=== PATIENT | female | born 1945 | race Caucasian/White ===

== ENCOUNTER → 2017-03-19 | Outpatient (CLI) | payer MEDICARE, MEDICAID ==
[~2017-03-19] MED LIST: AMIT25TA9 PO; AMLO5TAB4 PO; ARIP15TA4 PO; ARIP5TAB12 PO; ARPZ10T PO; Albuterol IH; BENZ0.5T3 PO; Biotin PO; CHOL10003 PO; CLC200NA2 NS; CYCL10TA9 PO; DOCU100T7 PO; DOXY100C2 PO; ERGO400C PO; ESCI20TA2 PO; ESZO3TAB30 PO; FLC1T PO; FOLIC ACID 1 MG PO; FURO20TA4 PO; GABA300C PO; HYDR-3812 PO; HYDR25SU5 RC; INDO50CA PO; IRON 65 MG PO; Indocin PO; LACT10SO33 PO; LEVO75TA57 PO; LEVO75TA6 PO; MELO-195 PO; MEMA5TAB PO; MENT71OI TP; METH2.5T PO; METO50TA2 PO; METR500T PO; MIRT15TA6 PO; MRTZ30T1 PO; MTX2.5T PO; NF-ESOM40C PO; Nitrostat SL; PANT40TA2 PO; POLY17PO23 PO; PRAM0.12 PO; PRD5T PO; Potassium PO; QTP100T PO; SIMV40TA2 PO; SUMA100T2 PO; TRAM50TA2 PO; VITA400C21 PO; VORT5TAB PO; Xanax PO
--- NOTE | 2017-03-19 18:55 | Diagnostic Imaging Report ---
EXAMINATION: Barium small bowel follow through. INDICATION: Diarrhea. TECHNIQUE: [employer] Mender image of the abdomen was performed. Subsequently, the patient was given barium orally and serial images of the abdomen were obtained. FINDINGS: Kn[employer] Mender image of the abdomen demonstrates right convexity scoliosis and surgical clips in the upper right abdomen and in the mid lateral aspect of the left flank. [id number] amount of fecal material seen in the colon. There is a moderate-sized hiatal hernia. There is prompt gastric emptying into the small bowel loops. There is a transient time through the small bowel of 3 hours and 30 minutes. The small bowel caliber and mucosa lining appear unremarkable. The opacified portions of the proximal colon demonstrate contracted appearance of the colon with question of mucosal thickening. Artifacts from luminal contents is possible. IMPRESSION: 1. Moderate-sized hiatal hernia. 2. The right colon opacified portions demonstrate nodular filling defects which could relate to mucosal thickening versus artifacts related to luminal contents. Correlate clinically and consider colonoscopy for further evaluation. Dictated by: Dictated on workstation # [id number]
== END ==
LOC: RAD 09:11
PROVIDERS: ATTEND Internal Medicine Gastroenterology
DX: K52.839 Microscopic colitis, unspecified (principal)
CPT/HCPCS: 74250

== ENCOUNTER → 2017-05-09 | Outpatient (CLI) | payer MEDICARE, MEDICAID ==
--- NOTE | 2017-05-09 13:28 | Diagnostic Imaging Report ---
EXAMINATION: Three views of the sacroiliac joints. INDICATION: Right hip pain. FINDINGS: There is a mild sclerotic changes along the SI joints likely degenerative with no erosive components. No evidence of SI joint fusion. No fracture is identified. There is suggestion of background osteopenia however and lower lumbar spine degenerative changes. IMPRESSION: Mild degenerative changes. Dictated by: Dictated on workstation # [id number]
--- NOTE | 2017-05-09 13:44 | Diagnostic Imaging Report ---
EXAMINATION: AP and frog-leg lateral views of the right hip. INDICATION: Right hip pain. FINDINGS: There is mild joint space narrowing and subchondral sclerosis compatible with mild osteoarthritis. Minimal subchondral cystic changes are also most likely osteoarthritis changes with no erosive changes noted. No fracture, dislocation, or radiopaque foreign body. IMPRESSION: Mild right hip osteoarthritis. Dictated by: Dictated on workstation # [id number]
--- NOTE | 2017-05-09 15:54 | Diagnostic Imaging Report ---
Multiple views of the lumbar spine including AP, oblique and lateral views. INDICATION: Right hip pain. FINDINGS: There is a prominent right convexity scoliosis of the lumbar spine centered around L1/L2 level. Compensatory curve with left convexity around L4/L5 is present. There is significant disc degenerative changes with vacuum phenomenon, disc height loss and endplates sclerosis seen most prominent at L1/L2 and to lesser extent at the T12/L1 and L2/L3 levels. There are disc degenerative changes, however, in the lower lumbar spine of mild to moderate degree as well. Multilevel anterior osteophytes are noted. There are small posterior osteophytes at the L2/L3 level. The vertebral body heights are preserved. Some limitation to the oblique views secondary to the scoliosis is noted with no malalignment of the facet joints and no definite pars defect is seen. Mild degenerative changes in the SI joints seen. IMPRESSION: Lumbar spine scoliosis and advanced disc degenerative changes seen. Dictated by: Dictated on workstation # [id number]
== END ==
LOC: RAD 12:18
PROVIDERS: ATTEND Internal Medicine Rheumatology
DX: M51.36 Other intervertebral disc degeneration, lumbar region (principal); M41.26 Other idiopathic scoliosis, lumbar region; M25.551 Pain in right hip
CPT/HCPCS: 72110; 72202; 73502

== ENCOUNTER 2018-08-29 19:22 | Emergency (ER) | payer MEDICARE, MEDICAID ==
[~2018-08-29] VITALS: Ht 160 cm; Wt 63.8 kg
[~2018-08-29 19:22] MED LIST changes: +ACHD5005 PO; -HYDR-3812 PO; +INDO50CA11 PO; -METH2.5T PO; +METO50TA15 PO; -METO50TA2 PO
--- OUTSIDE RECORDS SUMMARY | 2018-08-29 19:28 | XMS REPORT | Clinical Summary ---
Author Author [facility] Organization [facility] Address Unknown Phone Unavailable Care Team Providers Care Chinese Medicine Practitioner Name Role Phone Reyes Gao MD Unavailable Reyes Gao MD PCP Source Comments Some departments are not documenting in the electronic medical record. If you do not see the information that you expected, contact Release of Information in the Health Information Management department at [phone] for further assistance in locating additional records.[facility] Allergies Active Allergy Reactions Severity Noted Date Comments Sulfa (Sulfonamide VOMITING Low 01/24/2016 Antibiotics) Current Medications Prescription Sig. Disp. Refills Start End Date Status Date PANTOPRAZOLE SODIUM Take by mouth. Active (PROTONIX PO)Indications: Vision loss, bilateral CYCLOBENZAPRINE HCL Take by mouth. Active (FLEXERIL PO)Indications: Vision loss, bilateral potassium chloride (KDUR) Take 10 mEq by mouth Active 10 mEq tabletIndications: daily. Vision loss, bilateral PRAMIPEXOLE DI-HCL Take by mouth. Active (MIRAPEX PO)Indications: Vision loss, bilateral traMADol (ULTRAM) 50 mg Take 50 mg by mouth every Active tabletIndications: Vision 6 hours as needed for loss, bilateral Pain. gabapentin (NEURONTIN) Take 300 mg by mouth Active 300 mg three times daily. capsuleIndications: Vision loss, bilateral levothyroxine (SYNTHROID) Take 75 mcg by mouth Active 75 mcg tabletIndications: daily. Vision loss, bilateral metoprolol XL (TOPROL XL) Take 50 mg by mouth Active 50 mg tabletIndications: daily. Vision loss, bilateral ARIPiprazole (ABILIFY) 15 Take 15 mg by mouth Active mg tabletIndications: daily. Vision loss, bilateral amitriptyline (ELAVIL) 25 Take 25 mg by mouth at Active mg tabletIndications: bedtime daily. Vision loss, bilateral VORTIOXETINE HYDROBROMIDE Take by mouth. Active (BRINTELLIX PO)Indications: Vision loss, bilateral MEMANTINE HCL (NAMENDA Take by mouth. Active PO)Indications: Vision loss, bilateral vitamin E 100 unit Take 100 Units by mouth Active capsuleIndications: daily. Vision loss, bilateral BIOTIN/CALCIUM CARBONATE Take by mouth. Active (BIOTIN 100+10 PO)Indications: Vision loss, bilateral ERGOCALCIFEROL (VITAMIN Take by mouth. Active D2) (VITAMIN D PO)Indications: Vision loss, bilateral calcitonin salmon Apply 1 Lottie to one Active (MIACALCIN) 200 nostril as directed unit/actuation nasal daily. sprayIndications: Vision loss, bilateral sumatriptan (IMITREX) 100 Take 100 mg by mouth as Active mg tabletIndications: Needed for Migraine Vision loss, bilateral symptoms. nitroglycerin (NITROSTAT) Place 0.3 mg under tongue Active 0.3 mg tabletIndications: every 5 minutes as needed Vision loss, bilateral for Chest Pain. mesalamine (LIALDA) 1.2 Take by mouth daily. Active gram tablet Swallow whole; do not break, chew or crush. Administer with a meal. traZODone (DESYREL) 50 mg Take 50 mg by mouth at Active tablet bedtime as needed for Sleep. furosemide (LASIX) 20 mg Take 20 mg by mouth every Active tablet morning. Active Problems Problem Noted Date Mild cognitive impairment 10/31/2016 Overview: Mild complaints in memory but no interference with daily function. She has physical limitations from her RA but not related to cognition. She does not endorse visual or spatial symptoms of posterior cortical atrophy. 2015 PET / CT -- no clear atrophy on CT. Some evidence of mild temporal hypometabolism but no occipital or parietal hypometabolism. Not a strongly suggestive AD pattern or posterior cortical atrophy pattern. 10/2016 MMSE 28, LMI 10, LMII 7, Trails B 180, Fluency 12. Good to slightly below average performance on memory and executive function tasks. Etiology likely chronic or static cognitive impairment or meds / pain. I would become suspicious for neurodegenerative if her symptoms worsen in the next year or two. L ast Assessment & Plan: -- discussed her very mild symptoms and to return if there is noticeable decline or interference in daily function in the future. Vision loss, bilateral 01/24/2016 Last Assessment & Plan: - Patient referred for peripheral vision loss - No inciting event and patient not really aware of it. - Central visual acuity still good. - Recommend optic neuropathy labs and PET scan of brain - Possible posterior cortical atrophy, MRI head from outside facility showed diffuse volume loss - C/D large on exam but rim appears intact without pallor Pseudophakia, both eyes 01/24/2016 Last Assessment & Plan: - Stable - CTM Family History Medical History Relation Name Comments Cataract Father Cataract Mother Glaucoma Mother Relation Name Status Comments Father Mother Social History Tobacco Use Types Packs/Day Years Used Date Former Smoker Sex Assigned at Date Recorded Not on file Last Filed Vital Signs Vital Sign Reading Time Taken Blood Pressure 190/102 10/31/2016 2:04 PM [employer] Pulse 71 10/31/2016 2:04 PM [employer] Temperature - - Respiratory Rate - - Oxygen Saturation - - Inhaled Oxygen - - Concentration Weight 75.3 kg (166 lb) 10/31/2016 2:04 PM [employer] Height 162.6 cm (5' 4") 10/31/2016 2:04 PM [employer] Body Mass Index 28.49 10/31/2016 2:04 PM [employer] Plan of Treatment Health Maintenance Due Date Last Done Comments HEPATITIS C SCREENING 1947 PHYSICAL (COMPREHENSIVE) 1954 EXAM PERTUSSIS VACCINE 1958 TETANUS VACCINE 1964 BREAST CANCER SCREENING 1987 COLORECTAL CANCER 1997 SCREENING SHINGLES RECOMBINANT 1997 VACCINE (1 of 2) OSTEOPOROSIS SCREENING 2012 PNEUMONIA (PCV13/PPSV23) 2012 VACCINES (1 of 2 - PCV13) INFLUENZA VACCINE 06/05/2018 Results Not on filefrom Last 3 Months
--- OUTSIDE RECORDS SUMMARY | 2018-08-29 19:28 | XMS REPORT | Clinical Summary ---
Author Author [facility] Organization [facility] Address Unknown Phone Unavailable Care Team Providers Care Food Service Clerk Name Role Phone PCP Unavailable Allergies Not on File Current Medications Not on file Active Problems Not on file Social History Tobacco Use Types Packs/Day Years Used Date Never Assessed Sex Assigned at Date Recorded Not on file Last Filed Vital Signs Not on file Plan of Treatment Not on file Results Not on filefrom Last 3 Months
--- OUTSIDE RECORDS SUMMARY | 2018-08-29 19:30 | XMS REPORT | Continuity of Care Document ---
Author Author [facility] Address Unknown Phone Unavailable Allergies Active Description Code Type Severity Reaction Onset Reported/Identified Relationship to Patient Clinical Status Yes SULFAMETHOXAZOLE-TRIMETHOPRIM SULFAMETHOXAZOLE-TRI SEVERE Yes SULFAMETHOXAZOLE-TRIMETHOPRIM SEVERE DERMATOLOGICAL - NILS Yes sulfa drug Drug Allergy 09/19/2011 Yes Sulfa (Sulfonamide Antibiotics) [id number] Drug Allergy Unknown N/A 2014 Medications Medication Packaging Start Date Stop Date Route Dosage Sig ONDANSETRON VIAL INJ 4 MG/2CC (ZOFRAN 2CC VIAL) MG 01/12/2017 01/12/2017 PRN ONCE D5 1/2 NS 1000CC IV BAG INJ 0 ml 01/19/2017 CONTINUOUSEVERY 0 Hour LOPERAMIDE CAP 2 MG (IMMODIUM) MG 01/12/2017 01/12/2017 ONCE&1630 LOPERAMIDE CAP 2 MG (IMMODIUM) MG 01/12/2017 01/19/2017 PRN Q6H ONDANSETRON VIAL INJ 4 MG/2CC (ZOFRAN 2CC VIAL) MG 01/12/2017 01/19/2017 PRN Q4H PANTOPAZOLE VIAL INJ 40 MG (PROTONIX IV) MG 01/12/2017 01/22/2017 Q12H&0600,1800 POTASSIUM CHLORIDE TAB 20 MEQ (K-DUR) Dose(s) 01/12/2017 01/19/2017 BID&0800,2000 GABAPENTIN CAP 300 MG (NEURONTIN) Dose(s) 01/12/2017 01/19/2017 BID&0800,2000 Memantine oral tablet 5mg (NAMENDA) Dose(s) 01/12/2017 01/22/2017 BID&0800,2000 PRAMIPEXOLE TAB 0.25 MG (MIRAPEX) Dose(s) 01/12/2017 01/18/2017 QHS&2100 TRAZODONE TAB 50 MG (DESYREL) Dose(s) 01/12/2017 01/19/2017 PRN QHS PANTOPRAZOLE TAB 40 MG (PROTONIX) Dose(s) 01/13/2017 01/19/2017 Daily&0900 METOPROLOL XR TAB 25 MG (TOPROL XL) Dose(s) 01/13/2017 01/19/2017 Daily&0900 ARIPIPRAZOLE TAB 10 MG (ABILIFY) Dose(s) 01/13/2017 01/19/2017 Daily&0900 DULOXETINE CAP 30 MG (CYMBALTA) Dose(s) 01/13/2017 01/19/2017 Daily&0900 MELOXICAM TAB 7.5 MG (MOBIC) MG 09/201701/20/2017 PRN Daily AMLODIPINE TAB 5 MG (NORVASC) Dose(s) 01/13/2017 01/19/2017 Daily&0900 LEVOTHYROXINE TAB 75 MCG (SYNTHROID) Dose(s) 01/13/2017 01/19/2017 Daily&0900 POTASSIUM CHLORIDE TAB 20 MEQ (K-DUR) MEQ 07/23/2017 07/23/2017 ONCE&1352 ACETAMINOPHEN ORAL TABLET 325mg(Tylenol) MG 07/23/2017 07/30/2017 PRN EVERY 6 Hour Normal Saline 1000cc W/KCl 20mEq ml 07/23/2017 07/30/2017 CONTINUOUSEVERY 0 Hour NORMAL SALINE 1000CC IV BAG INJ 0.9 % (NS 1000CC IV BAG) ml 07/23/2017 07/23/2017 ONCE&1557 POTASSIUM CHLORIDE TAB 20 MEQ (K-DUR) MEQ 07/23/2017 07/23/2017 ONCE&1558 ONDANSETRON VIAL INJ 4 MG/2CC (ZOFRAN 2CC VIAL) MG 07/23/2017 07/23/2017 ONCE&1558 ONDANSETRON VIAL INJ 4 MG/2CC (ZOFRAN 2CC VIAL) MG 07/23/2017 07/30/2017 PRN Q4H GABAPENTIN CAP 300 MG (NEURONTIN) Dose(s) 07/23/2017 07/30/2017 BID&08,1999 FAMOTIDINE VIAL INJ 20 MG/2CC (PEPCID VIAL) MG 07/23/2017 07/30/2017 BID&0800,1999 Memantine oral tablet 5mg (NAMENDA) Dose(s) 07/23/2017 08/02/2017 BID&0800,2000 PRAMIPEXOLE TAB 0.25 MG (MIRAPEX) Dose(s) 07/23/2017 07/29/2017 QHS&2100 TRAZODONE TAB 50 MG (DESYREL) Dose(s) 07/23/2017 07/30/2017 PRN QHS ALPRAZOLAM TAB 0.25 MG (XANAX) Dose(s) 07/23/2017 08/02/2017 PRN Q8H ARIPIPRAZOLE TAB 10 MG (ABILIFY) Dose(s) 07/24/2017 07/30/2017 Daily&0900 DULOXETINE CAP 30 MG (CYMBALTA) Dose(s) 07/24/2017 07/30/2017 Daily&0900 MESALAMINE TAB 1200 MG (LIALDA) Dose(s) 07/24/2017 07/30/2017 Daily&0900 AMLODIPINE TAB 5 MG (NORVASC) Dose(s) 07/24/2017 07/30/2017 Daily&0900 METOPROLOL TAB 25 MG (LOPRESSOR) Dose(s) 07/24/2017 07/30/2017 Daily&0900 LEVOTHYROXINE TAB 75 MCG (SYNTHROID) Dose(s) 07/24/2017 07/30/2017 Daily&0900 PANTOPRAZOLE TAB 40 MG (PROTONIX) MG 07/24/2017 07/30/2017 Daily&0000 CALMOSEPTINE OINT TUBE (RISAMINE OINT) ryan 07/24/2017 07/31/2017 PRN QID ONDANSETRON VIAL INJ 4 MG/2CC (ZOFRAN 2CC VIAL) MG 11/17/2017 11/17/2017 PRN ONCE NORMAL SALINE 1000CC IV BAG INJ 0.9 % (NS 1000CC IV BAG) ml 11/17/2017 11/17/2017 ONCE&0244 NORMAL SALINE 250CC IV BAG INJ 0.9 % (NS 250CC IV BAG) ml 01/12/2018 01/12/2018 ONCE&1625 POTASSIUM CL 40MEQ VIAL INJ 40 MEQ/20CC (KCL VIAL) MEQ 01/12/2018 01/12/2018 ONCE&1648 NORMAL SALINE 250CC IV BAG INJ 0.9 % (NS 250CC IV BAG) ml 01/12/2018 01/16/2018 EVERY 24 Hour&1738 NORMAL SALINE 1000CC IV BAG INJ 0.9 % (NS 1000CC IV BAG) ml 01/12/2018 01/27/2018 CONTINUOUSEVERY 0 Hour ONDANSETRON VIAL INJ 4 MG/2CC (ZOFRAN 2CC VIAL) MG 01/12/2018 01/12/2018 PRN ONCE POTASSIUM CHLORIDE TAB 20 MEQ (K-DUR) Dose(s) 01/12/2018 01/19/2018 BID&0800,2000 GABAPENTIN CAP 300 MG (NEURONTIN) Dose(s) 01/12/2018 01/19/2018 BID&0800,2000 MESALAMINE TAB 1200 MG (LIALDA) MG 01/12/2018 01/19/2018 BID&0800,2000 Nystatin top powder (Mycostatin) APPLICATION 01/12/2018 01/26/2018 BID&0800,2000 Memantine oral tablet 5mg (NAMENDA) Dose(s) 01/12/2018 01/22/2018 BID&0800,2000 PANTOPRAZOLE TAB 40 MG (PROTONIX) Dose(s) 01/12/2018 01/12/2018 ONCE&0900 PRAMIPEXOLE TAB 0.25 MG (MIRAPEX) Dose(s) 01/12/2018 01/18/2018 QHS&2100 TRAZODONE TAB 50 MG (DESYREL) Dose(s) 01/12/2018 01/19/2018 PRN QHS ONDANSETRON VIAL INJ 4 MG/2CC (ZOFRAN 2CC VIAL) MG 01/12/2018 01/19/2018 PRN Q4H HYDROCODONE/APAP 5MG/325MG TAB 5 MG/325MG (CARLOS-TAB 5/325) TAB 01/12/2018 01/22/2018 PRN Q6H LEVALBUTEROL LIQ 1.25 MG/3ML (XOPENEX) MG 01/13/2018 01/19/2018 QID&0600,1100,1600,2100 MELOXICAM TAB 7.5 MG (MOBIC) MG 09/201801/20/2018 PRN Daily PANTOPRAZOLE TAB 40 MG (PROTONIX) Dose(s) 01/13/2018 01/22/2018 Daily&0900 ARIPIPRAZOLE TAB 10 MG (ABILIFY) Dose(s) 01/13/2018 01/19/2018 Daily&0900 DULOXETINE CAP 30 MG (CYMBALTA) Dose(s) 01/13/2018 01/19/2018 Daily&0900 HYDROCHLOROTHIAZIDE CAP 12.5 MG (HYDRODIURIL) Dose(s) 01/13/2018 01/19/2018 Daily&0900 AMLODIPINE TAB 5 MG (NORVASC) Dose(s) 01/13/2018 01/19/2018 Daily&0900 METOPROLOL TAB 25 MG (LOPRESSOR) Dose(s) 01/13/2018 01/19/2018 Daily&0900 VITAMIN D-3 TAB 1000 UNITS (VITAMIN D-3) Dose( s) 01/13/2018 01/19/2018 Daily&0900 LEVOTHYROXINE TAB 75 MCG (SYNTHROID) Dose(s) 01/13/2018 01/19/2018 Daily&0900 PANTOPAZOLE VIAL INJ 40 MG (PROTONIX IV) MG 01/13/2018 01/22/2018 Daily&0900 NORMAL SALINE W/KCL 40MEQ IV (SALINE IV BAG [id number]) MLS 01/13/2018 01/20/2018 CONTINUOUSEVERY 0 Hour LACTOBACILLUS BULGARIS TAB (LACTINEX BULGARIS) tab 01/13/2018 01/23/2018 QID&0800,1200,1700,2200 METOPROLOL TAB 25 MG (LOPRESSOR) MG 01/13/2018 01/13/2018 ONCE&1215 NORMAL SALINE W/KCL 40MEQ IV (SALINE IV BAG [id number]) MLS 01/13/2018 01/20/2018 CONTINUOUSEVERY 0 Hour NORMAL SALINE W/KCL 40MEQ IV (SALINE IV BAG [id number]) MLS 01/14/2018 01/21/2018 CONTINUOUSEVERY 0 Hour MESALAMINE TAB 1200 MG (LIALDA) MG 01/14/2018 01/21/2018 BID&0800,2000 SIMVASTATIN TAB 10 MG (ZOCOR) MG 01/20/2018 QPM&2000 TRAZODONE TAB 50 MG (DESYREL) MG 01/20/2018 QHS&2100 MELOXICAM TAB 7.5 MG (MOBIC) MG 01/21/2018 Daily&0900 METOPROLOL-XL TAB 50 MG (TOPROL XL) MG 01/15/2018 01/21/2018 Daily&0900 METOPROLOL XR TAB 25 MG (TOPROL XL) MG 01/15/2018 01/21/2018 Daily&0900 Hydrochlorothiazide oral tablet 25mg MG 01/15/2018 01/21/2018 Daily&0900 ALPHA TOCOPHERYL CAP 400 IU (VIT E) IU 01/15/2018 01/21/2018 Daily&0900 ACETAMINOPHEN ORAL TABLET 325mg(Tylenol) MG 01/15/2018 02/14/2018 PRN EVERY 4 Hour GABAPENTIN CAP 300 MG (NEURONTIN) MG 01/15/2018 01/21/2018 QHS&2100 TRAMADOL TAB 50 MG (ULTRAM) MG 01/15/2018 ONCE&2245 TRAMADOL TAB 50 MG (ULTRAM) MG 01/26/2018 PRN BID Aripiprazole oral tablet 5mg (Abilify) MG 01/16/2018 02/14/2018 QHS&2100 LACTATED RINGERS 500CC IV BAG INJ ml 02/03/2018 02/03/2018 ONCE&0117 LACTATED RINGERS 500CC IV BAG INJ ml 02/03/2018 02/10/2018 CONTINUOUSEVERY 0 Hour ONDANSETRON VIAL INJ 4 MG/2CC (ZOFRAN 2CC VIAL) MG 02/03/2018 02/03/2018 PRN ONCE PANTOPAZOLE VIAL INJ 40 MG (PROTONIX IV) MG 02/03/2018 02/12/2018 BID&0800,2000 ACETAMINOPHEN ORAL TABLET 325mg(Tylenol) MG 02/03/2018 03/04/2018 PRN EVERY 4 Hour ALPRAZOLAM TAB 0.25 MG (XANAX) Dose(s) 02/03/2018 02/13/2018 PRN Q8H GABAPENTIN CAP 300 MG (NEURONTIN) Dose(s) 02/03/2018 02/09/2018 BID&0800,2000 MESALAMINE TAB 1200 MG (LIALDA) Dose(s) 02/03/2018 03/04/2018 BID&0800,2000 METOPROLOL XR TAB 25 MG (TOPROL XL) Dose(s) 02/03/2018 02/09/2018 Daily&0900 POTASSIUM CHLORIDE TAB 20 MEQ (K-DUR) Dose(s) 02/03/2018 02/09/2018 Daily&0900 Aripiprazole oral tablet 5mg (Abilify) Dose(s ) 02/03/2018 02/09/2018 Daily&0900 DULOXETINE CAP 30 MG (CYMBALTA) Dose(s) 02/03/2018 03/04/2018 Daily&0900 FUROSEMIDE TAB 40 MG (LASIX) Dose(s) 02/03/2018 02/09/2018 Daily&0900 LEVOTHYROXINE TAB 75 MCG (SYNTHROID) Dose(s) 02/03/2018 03/04/2018 Daily&0900 POTASSIUM CHLORIDE TAB 20 MEQ (K-DUR) Dose(s) 02/03/2018 02/10/2018 BID&0800,2000 Aripiprazole oral tablet 5mg (Abilify) Dose(s ) 02/03/2018 03/04/2018 QPM&1999 GABAPENTIN CAP 100 MG (NEURONTIN) Dose(s) 02/03/2018 02/09/2018 QHS&2100 GABAPENTIN CAP 300 MG (NEURONTIN) Dose(s) 02/03/2018 02/09/2018 QHS&2099 TRAZODONE TAB 50 MG (DESYREL) Dose(s) 02/03/2018 02/09/2018 QHS&2100 DULOXETINE CAP 30 MG (CYMBALTA) Dose(s) 02/04/2018 02/10/2018 Daily&0900 MESALAMINE TAB 1200 MG (LIALDA) Dose(s) 02/04/2018 02/10/2018 Daily&0900 GABAPENTIN CAP 300 MG (NEURONTIN) Dose(s) 02/04/2018 02/11/2018 BID&0800,2000 METOPROLOL XR TAB 25 MG (TOPROL XL) MG 02/05/2018 02/11/2018 Daily&0900 LACTATED RINGERS 1000CC IV BAG INJ ml 02/11/2018 02/12/2018 CONTINUOUSEVERY 0 Hour TRAMADOL TAB 50 MG (ULTRAM) Dose(s) 02/11/2018 02/21/2018 PRN Q6H ALPRAZOLAM TAB 0.25 MG (XANAX) MG 02/11/2018 02/21/2018 PRN Q8H GABAPENTIN CAP 300 MG (NEURONTIN) Dose(s) 02/11/2018 02/17/2018 QPM&2000 Aripiprazole oral tablet 5mg (Abilify) Dose(s ) 02/11/2018 03/12/2018 QPM&1999 TRAZODONE TAB 50 MG (DESYREL) Dose(s) 02/11/2018 02/17/2018 QHS&2100 METOPROLOL TAB 25 MG (LOPRESSOR) Dose(s) 02/12/2018 02/18/2018 QAM&0800 LEVOTHYROXINE TAB 75 MCG (SYNTHROID) Dose(s) 02/12/2018 02/18/2018 QAM&0800 POTASSIUM CHLORIDE TAB 20 MEQ (K-DUR) Dose(s) 02/12/2018 02/18/2018 Daily&0900 DULOXETINE CAP 30 MG (CYMBALTA) Dose(s) 02/12/2018 02/18/2018 Daily&0900 MESALAMINE TAB 1200 MG (LIALDA) Dose(s) 02/12/2018 02/18/2018 Daily&0900 PANTOPRAZOLE TAB 40 MG (PROTONIX) Dose(s) 02/12/2018 02/18/2018 Daily&0900 ASPIRIN 81MG CHEWABLE TAB 81 MG (BABY ASPIRIN) MG 08/01/2018 08/01/2018 ONCE&1422 NITROSTAT TAB 0.4 MG (NITROQUICK) MG 08/01/2018 08/01/2018 ONCE&1424 Metoprolol IV soln 5mg/5cc vial (Lopressor) MG 08/01/2018 08/01/2018 ONCE&1438 NITROSTAT TAB 0.4 MG (NITROGLYCERINE) MG 08/01/2018 08/01/2018 PRN ONCE NITROGLYCERIN PATCH PAT 0.4 MG MG 08/01/2018 08/01/2018 ONCE&1439 Morphine IV cartridge 4mg/cc MG 08/08/2018 PRN Q4H DEXAMETHASONE VIAL INJ 4 MG/CC (DECADRON VIAL) MG 08/04/2018 08/04/2018 ONCE&0053 KETOROLAC VIAL INJ 30 MG/CC (TORADOL VIAL) MG 08/04/2018 08/04/2018 ONCE&0053 METHYLPREDNISOLONE VIAL INJ 40 MG/CC (DEPO-MEDROL VIAL) MG 08/04/2018 08/04/2018 ONCE&0053 Heparin, FLUSH IV syringe 500 units UNITS 08/16/2018 08/16/2018 ONCE&1012 KETOROLAC VIAL INJ 30 MG/CC (TORADOL VIAL) MG 08/16/2018 08/16/2018 ONCE&1012 Problems Date Dx Coded Attending Type Code Diagnosis Diagnosed By 07/28/2010 295.70 P SCHIZO AFFECTIVE 07/28/2010 [employer] INSPECTOR, SAMARA BANGURAH 295.70 P SCHIZO AFFECTIVE 07/28/2010 [employer] INSPECTOR, SAMARA BANGURAH 295.70 P SCHIZO AFFECTIVE 07/28/2010 295.70 P SCHIZO AFFECTIVE 07/28/2010 295.70 P SCHIZO AFFECTIVE 07/28/2010 ANDER GRANT DO 295.70 P SCHIZO AFFECTIVE 07/28/2010 [employer]SE[employer] INSPECTOR, SAMARA BANGURAH 295.70 P SCHIZO AFFECTIVE 07/28/2010 [employer] INSPECTOR, SAAMRA BANGURAH 295.70 P SCHIZO AFFECTIVE 07/28/2010 [employer] INSPECTOR, SAMARA BANGURAH 295.70 P SCHIZO AFFECTIVE 07/28/2010 [employer] INSPECTOR, SAMARA BANGURAH 295.70 P SCHIZO AFFECTIVE 07/28/2010 [employer] INSPECTOR, SAMARA BANGURAH 295.70 P SCHIZO AFFECTIVE 07/28/2010 [employer] INSPECTOR, SAMARA BANGURAH 295.70 P SCHIZO AFFECTIVE 07/28/2010 [employer] INSPECTOR, SAMARA KEVIN 295.70 P SCHIZO AFFECTIVE 07/28/2010 RONALD CNS, MICHELLE Mcgovern 295.70 P SCHIZO AFFECTIVE 11/06/2011 465.9 UPPER RESPIRATORY INFECTION 11/06/2011 V65.42 COUNSELING - SMOKING CESSATION 11/06/2011 NUPUR ALBERT SAMARA BROWN 465.9 UPPER RESPIRATORY INFECTION 11/06/2011 NUPUR ALBERT SAMARA BROWN V65.42 COUNSELING - SMOKING CESSATION 11/06/2011 NUPUR ALBERT SAMARA KEVIN 465.9 UPPER RESPIRATORY INFECTION 11/06/2011 NUPUR ALBERT SAMARA BROWN V65.42 COUNSELING - SMOKING CESSATION 11/06/2011 465.9 UPPER RESPIRATORY INFECTION 11/06/2011 V65.42 COUNSELING - SMOKING CESSATION 11/06/2011 465.9 UPPER RESPIRATORY INFECTION 11/06/2011 V65.42 COUNSELING - SMOKING CESSATION 11/06/2011 ANDER GRANT DO 465.9 UPPER RESPIRATORY INFECTION 11/06/2011 ANDER GRANT DO V65.42 COUNSELING - SMOKING CESSATION 11/06/2011 NUPUR ALBERT SAMARA KEVIN 465.9 UPPER RESPIRATORY INFECTION 11/06/2011 NUPUR ALBERT SAMARA KEVIN V65.42 COUNSELING - SMOKING CESSATION 11/06/2011 [employer] INSPECTOR, SAMARA BROWN 465.9 UPPER RESPIRATORY INFECTION 11/06/2011 [employer]SE[employer] INSPECTOR, SAMARA BROWN V65.42 COUNSELING - SMOKING CESSATION 11/06/2011 [employer] INSPECTOR, SAMARA BROWN 465.9 UPPER RESPIRATORY INFECTION 11/06/2011 [employer] INSPECTOR, SAMARA BROWN V65.42 COUNSELING - SMOKING CESSATION 11/06/2011 [employer] INSPECTOR, SAMARA BROWN 465.9 UPPER RESPIRATORY INFECTION 11/06/2011 [employer]SE[employer] INSPECTOR, SAMARA BROWN V65.42 COUNSELING - SMOKING CESSATION 11/06/2011 [employer] INSPECTOR, SAMARA BROWN 465.9 UPPER RESPIRATORY INFECTION 11/06/2011 [employer] INSPECTOR, SAMARA BROWN V65.42 COUNSELING - SMOKING CESSATION 11/06/2011 [employer] INSPECTOR, SAMARA BROWN 465.9 UPPER RESPIRATORY INFECTION 11/06/2011 [employer] INSPECTOR, SAMARA BROWN V65.42 COUNSELING - SMOKING CESSATION 11/06/2011 [employer] INSPECTOR, SAMARA BROWN 465.9 UPPER RESPIRATORY INFECTION 11/06/2011 [employer] INSPECTOR, SAMARA BROWN V65.42 COUNSELING - SMOKING CESSATION 11/06/2011 RONALD DYSON, MICHELLE M 465.9 UPPER RESPIRATORY INFECTION 11/06/2011 RONALD DYSON, MICHELLE M V65.42 COUNSELING - SMOKING CESSATION 11/10/2011 466.0 BRONCHITIS, ACUTE 11/10/2011 [employer] INSPECTOR, SAMARA BROWN 466.0 BRONCHITIS, ACUTE 11/10/2011 [employer] INSPECTOR, SAMARA BROWN 466.0 BRONCHITIS, ACUTE 11/10/2011 466.0 BRONCHITIS, ACUTE 11/10/2011 466.0 BRONCHITIS, ACUTE 11/10/2011 ANDER GRANT DO 466.0 BRONCHITIS, ACUTE 11/10/2011 [employer] INSPECTOR, SAMARA BANGURAH 466.0 BRONCHITIS, ACUTE 11/10/2011 [employer]SE[employer] INSPECTOR, SAMARA BANGURAH 466.0 BRONCHITIS, ACUTE 11/10/2011 [employer] INSPECTOR, SAMARA BANGURAH 466.0 BRONCHITIS, ACUTE 11/10/2011 [employer] INSPECTOR, SAMARA KEVIN 466.0 BRONCHITIS, ACUTE 11/10/2011 [employer] INSPECTOR, SAMARA BANGURAH 466.0 BRONCHITIS, ACUTE 11/10/2011 [employer]SE[employer] INSPECTOR, SAMARA KEVIN 466.0 BRONCHITIS, ACUTE 11/10/2011 [employer] INSPECTOR, SAMARA KEVIN 466.0 BRONCHITIS, ACUTE 11/10/2011 MICHELLE COLEY M 466.0 BRONCHITIS, ACUTE 06/03/2013 ANDER GRANT DO 894.0 WOUND OPEN LOWER LIMB 06/03/2013 [employer] INSPECTOR, SAMARA KEVNI 894.0 WOUND OPEN LOWER LIMB 06/03/2013 [employer] INSPECTOR, SAMARA KEVIN 894.0 WOUND OPEN LOWER LIMB 06/03/2013 [employer]SE[employer] INSPECTOR, SAMARA KEVIN 894.0 WOUND OPEN LOWER LIMB 06/03/2013 [employer] INSPECTOR, SAMARA KEVIN 894.0 WOUND OPEN LOWER LIMB 06/03/2013 [employer]SE[employer] INSPECTOR, SAMARA KEVIN 894.0 WOUND OPEN LOWER LIMB 06/03/2013 [employer]ESSELS INSPECTOR, SAMARA KEVIN 894.0 WOUND OPEN LOWER LIMB 06/03/2013 [employer]SE[employer] INSPECTOR, SAMARA KEVIN 894.0 WOUND OPEN LOWER LIMB 06/03/2013 MICHELLE COLEY M 894.0 WOUND OPEN LOWER LIMB 09/15/2013 [employer] INSPECTOR, SAMARA KEVIN 294.20 DEMENTIA UNSPECIFIED WITHOUT BEHAVIORAL DISTURBANCE 09/15/2013 [employer] INSPECTOR, SAMARA KEVIN 294.20 DEMENTIA UNSPECIFIED WITHOUT BEHAVIORAL DISTURBANCE 09/15/2013 [employer] INSPECTOR, SAMARA KEVIN 294.20 DEMENTIA UNSPECIFIED WITHOUT BEHAVIORAL DISTURBANCE 09/15/2013 [employer]SE[employer] INSPECTOR, SAMARA KEVIN 294.20 DEMENTIA UNSPECIFIED WITHOUT BEHAVIORAL DISTURBANCE 09/15/2013 [employer]SE[employer] INSPECTOR, SAMARA KEVIN 294.20 DEMENTIA UNSPECIFIED WITHOUT BEHAVIORAL DISTURBANCE 09/15/2013 [employer]SE[employer] INSPECTOR, SAMARA KEVIN 294.20 DEMENTIA UNSPECIFIED WITHOUT BEHAVIORAL DISTURBANCE 09/15/2013 [employer]SE[employer] INSPECTOR, SAMARA KEVIN 294.20 DEMENTIA UNSPECIFIED WITHOUT BEHAVIORAL DISTURBANCE 09/15/2013 MICHELLE COLEY 294.20 DEMENTIA UNSPECIFIED WITHOUT BEHAVIORAL DISTURBANCE 09/30/2014 MICHELLE COLEY M 300.00 AN ANXIETY UNSPEC 09/30/2014 MICHELLE COLEY M 311 MO DEPRESS NOS 06/16/2015 SANGEETA ESCALANTE, MUKUL [place] Ot 244.9 06/16/2015 SANGEETA ESCALANTE, MUKUL [place] Ot 285.9 06/16/2015 SANGEETA ESCALANTE, MUKUL [place] Ot 294.9 06/16/2015 SANGEETA ESCALANTE, MUKUL E Ot 401.9 06/16/2015 SANGEETA ESCALANTE, MUKUL E Ot 530.81 06/16/2015 SANGEETA ESCALANTE, MUKUL E Ot 714.0 06/16/2015 SANGEETA ESCALANTE, MUKUL E Ot 729.1 06/16/2015 SANGEETA ESCALANTE, MUKUL E Ot 733.00 06/16/2015 SANGEETA ESCALANTE, MUKUL E Ot V54.26 06/16/2015 SANGEETA ESCALANTE, MUKUL E Ot V57.89 06/17/2015 SANGEETA ESCALANTE, MUKUL E Ot 244.9 06/17/2015 SANGEETA ESCALANTE, MUKUL E Ot 285.9 06/17/2015 SANGEETA ESCALANTE, MUKUL E Ot 294.9 06/17/2015 SANGEETA ESCALANTE, MUKUL E Ot 401.9 06/17/2015 SANGEETA ESCALANTE, MUKUL E Ot 530.81 06/17/2015 SANGEETA ESCALANTE, MUKUL E Ot 714.0 06/17/2015 SANGEETA ESCALANTE, MUKUL E Ot 729.1 06/17/2015 SANGEETA ESCALANTE, MUKUL E Ot 733.00 06/17/2015 SANGEETA ESCALANTE, MUKUL E Ot V54.26 06/17/2015 SANGEETA ESCALANTE, MUKUL E Ot V57.89 06/18/2015 SANGEETA ESCALANTE, MUKUL E Ot 244.9 06/18/2015 SANGEETA ESCALANTE, MUKUL E Ot 285.9 06/18/2015 SANGEETA ESCALANTE, MUKUL E Ot 294.9 06/18/2015 SANGEETA ESCALANTE, MUKUL E Ot 401.9 06/18/2015 SANGEETA ESCALANTE, MUKUL E Ot 530.81 06/18/2015 SANGEETA ESCALANTE, MUKUL E Ot 714.0 06/18/2015 SANGEETA ESCALANTE, MUKUL E Ot 729.1 06/18/2015 SANGEETA ESCALANTE, MUKUL E Ot 733.00 06/18/2015 SANGEETA ESCALANTE, MUKUL E Ot V54.26 06/18/2015 SANGEETA ESCALANTE, MUKUL E Ot V57.89 06/23/2015 SANGEETA ESCALANTE, MUKUL E Ot 244.9 06/23/2015 SANGEETA ESCALANTE, MUKUL E Ot 285.9 06/23/2015 SANGEETA ESCALANTE, MUKUL E Ot 294.9 06/23/2015 SANGEETA ESCALANTE, MUKUL E Ot 401.9 06/23/2015 SANGEETA ESCALANTE, MUKUL E Ot 530.81 06/23/2015 SANGEETA ESCALANTE, MUKUL E Ot 714.0 06/23/2015 SANGEETA ESCALANTE, MUKUL E Ot 729.1 06/23/2015 SANGEETA ESCALANTE, MUKUL E Ot 733.00 06/23/2015 SANGEETA ESCALANTE, MUKUL E Ot V54.26 06/23/2015 SANGEETA ESCALANTE, MUKUL E Ot V57.89 06/26/2015 SANGEETA ESCALANTE, MUKUL E Ot 244.9 06/26/2015 SANGEETA ESCALANTE, MUKUL E Ot 273.8 06/26/2015 SANGEETA ESCALANTE, MUKUL E Ot 285.9 06/26/2015 SANGEETA ESCALANTE, MUKUL E Ot 294.9 06/26/2015 SANGEETA ESCALANTE, MUKUL E Ot 401.9 06/26/2015 SANGEETA ESCALANTE, MUKUL E Ot 458.9 06/26/2015 SANGEETA ESCALANTE, MUKUL E Ot 530.81 06/26/2015 SANGEETA ESCALANTE, MUKUL E Ot 707.05 06/26/2015 SANGEETA ESCALANTE, MUKUL E Ot 707.22 06/26/2015 SANGEETA ESCALANTE, MUKUL E Ot 714.0 06/26/2015 SANGEETA ESCALANTE, MUKUL E Ot 726.10 06/26/2015 SANGEETA ESCALANTE, MUKUL E Ot 729.1 06/26/2015 SANGEETA ESCALANTE, MUKUL E Ot 733.00 06/26/2015 SANGEETA ESCALANTE, MUKUL E Ot V15.82 06/26/2015 SANGEETA ESCALANTE, MUKUL E Ot V49.72 06/26/2015 SANGEETA ESCALANTE, MUKUL E Ot V54.26 06/26/2015 SANGEETA ESCALANTE, MUKUL E Ot V57.89 01/12/2017 Ragland, Marie-Miranda A 428.9 01/12/2017 Ragland, Marie-Miranda A I50.9 HEART FAILURE, UNSPECIFIED 01/12/2017 Ragland, Marie-Miranda W 276.51 DEHYDRATION 01/12/2017 Ragland, Marie-Miranda W E86.0 DEHYDRATION 01/12/2017 Ragland, Marie-Miranda W 558.9 OTHER AND UNSPECIFIED NONINFECTIOUS GASTROENTERITIS AND COLITIS 01/12/2017 Ragland, Marie-Miranda W K52.9 NONINFECTIVE GASTROENTERITIS AND COLITIS, UNSPECIFIED 01/13/2017 Ragland, Marie-Miranda W 584.9 ACUTE KIDNEY FAILURE, UNSPECIFIED 01/13/2017 Ragland, Marie-Miranda W N17.9 ACUTE KIDNEY FAILURE, UNSPECIFIED 01/13/2017 Ragland, Marie-Miranda W 401.0 01/13/2017 Ragland, Marie-Miranda W 428.9 01/13/2017 Ragland, Marie-Miranda W 530.81 01/13/2017 Ragland, Marie-Miranda W 790.29 OTHER ABNORMAL GLUCOSE 01/13/2017 Ragland, Marie-Miranda W I10 ESSENTIAL (PRIMARY) HYPERTENSION 01/13/2017 Ragland, Yaniqueu W I50.9 HEART FAILURE, UNSPECIFIED 01/13/2017 Ragland, Marie-Miranda W K21.9 GASTRO-ESOPHAGEAL REFLUX DISEASE WITHOUT ESOPHAGITIS 01/13/2017 Ragland, Yaniqueu W R73.9 HYPERGLYCEMIA, UNSPECIFIED 04/16/2017 LION ESCALANTE, YURI Ot K52.839 MICROSCOPIC COLITIS, UNSPECIFIED 04/20/2017 LION ESCALANTE, YURI Ot K52.839 MICROSCOPIC COLITIS, UNSPECIFIED 06/01/2017 AMPARO ESCALANTE, RENU Bañuelos Ot M25.551 PAIN IN RIGHT HIP 06/01/2017 AMPARO ESCALANTE, RENU Bañuelos Ot M41.26 OTHER IDIOPATHIC SCOLIOSIS, LUMBAR REGIO 06/01/2017 AMPARO ESCALANTE, RENU Bañuelos Ot M51.36 OTHER INTERVERTEBRAL DISC DEGENERATION, 06/14/2017 AMPARO ESCALANTE, RENU Bañuelos Ot M25.551 PAIN IN RIGHT HIP 06/14/2017 AMPARO ESCALANTE, RENU Bañuelos Ot M41.26 OTHER IDIOPATHIC SCOLIOSIS, LUMBAR REGIO 06/14/2017 AMPARO ESCALANTE, RENU Bañuelos Ot M51.36 OTHER INTERVERTEBRAL DISC DEGENERATION, 07/23/2017 Benoit, Lorena W 276.51 DEHYDRATION 07/23/2017 Benoit, Lorena W E86.0 DEHYDRATION 07/23/2017 Benoit, Lorena W 276.51 DEHYDRATION 07/23/2017 Benoit, Lorena W 288.60 LEUKOCYTOSIS, UNSPECIFIED 07/23/2017 Benoit, Lorena W 787.01 NAUSEA WITH VOMITING 07/23/2017 Benoit, Lorena W D72.829 ELEVATED WHITE BLOOD CELL COUNT, UNSPECIFIED 07/23/2017 Benoit, Lorena W E86.0 DEHYDRATION 07/23/2017 Benoit, Lorena W R11.2 NAUSEA WITH VOMITING, UNSPECIFIED 07/24/2017 Benoit, Lorena W 276.51 DEHYDRATION 07/24/2017 Benoit, Lorena W 288.60 LEUKOCYTOSIS, UNSPECIFIED 07/24/2017 Benoit, Lorena W 787.01 NAUSEA WITH VOMITING 07/24/2017 Benoit, Lorena W D72.829 ELEVATED WHITE BLOOD CELL COUNT, UNSPECIFIED 07/24/2017 Benoit, Lorena W E86.0 DEHYDRATION 07/24/2017 Benoit, Lorena W R11.2 NAUSEA WITH VOMITING, UNSPECIFIED 07/25/2017 Benoit, Lorena A 276.51 DEHYDRATION 07/25/2017 Benoit, Lorena W 288.60 LEUKOCYTOSIS, UNSPECIFIED 07/25/2017 Benoit, Lorena W 714.0 RHEUMATOID ARTHRITIS 07/25/2017 Benoit, Lorena W 787.01 NAUSEA WITH VOMITING 07/25/2017 Benoit, Lorena W D72.829 ELEVATED WHITE BLOOD CELL COUNT, UNSPECIFIED 07/25/2017 Benoit, Lorena A E86.0 DEHYDRATION 07/25/2017 Benoit, Lorena W M06.9 RHEUMATOID ARTHRITIS, UNSPECIFIED 07/25/2017 Benoit, Lorena W R11.2 NAUSEA WITH VOMITING, UNSPECIFIED 11/17/2017 Flynntammy Jean A 276.51 DEHYDRATION 11/17/2017 Jean Wallace W 714.0 RHEUMATOID ARTHRITIS 11/17/2017 Jean Wallace W 787.01 NAUSEA WITH VOMITING 11/17/2017 Jean Wallace A E86.0 DEHYDRATION 11/17/2017 Jean Wallace W M06.9 RHEUMATOID ARTHRITIS, UNSPECIFIED 11/17/2017 Jean Wallace W R11.2 NAUSEA WITH VOMITING, UNSPECIFIED 01/14/2018 Benoit, Lorena W 276.8 HYPOPOTASSEMIA 01/14/2018 Benoit, Lorena W E87.6 HYPOKALEMIA 01/14/2018 Benoit, Lorena W 041.81 MYCOPLASMA INFECTION IN CONDITIONS CLASSIFIED ELSEWHERE AND OF UNSPECIFIED SITE 01/14/2018 Benoit, Lorena W 276.8 HYPOPOTASSEMIA 01/14/2018 Benoit, Lorena W 558.9 OTHER AND UNSPECIFIED NONINFECTIOUS GASTROENTERITIS AND COLITIS 01/14/2018 Benoit, Lorena W 787.91 DIARRHEA 01/14/2018 Benoit, Lorena W A49.3 MYCOPLASMA INFECTION, UNSPECIFIED SITE 01/14/2018 Benoit, Lorena W E87.6 HYPOKALEMIA 01/14/2018 Benoit, Lorena W K52.9 NONINFECTIVE GASTROENTERITIS AND COLITIS, UNSPECIFIED 01/14/2018 Benoit, Lorena W R19.7 DIARRHEA, UNSPECIFIED 01/14/2018 Benoit, Lorena W 041.81 MYCOPLASMA INFECTION IN CONDITIONS CLASSIFIED ELSEWHERE AND OF UNSPECIFIED SITE 01/14/2018 Benoit, Lorena W 276.8 HYPOPOTASSEMIA 01/14/2018 Benoit, Lorena W 558.9 OTHER AND UNSPECIFIED NONINFECTIOUS GASTROENTERITIS AND COLITIS 01/14/2018 Benoit, Lorena W 787.91 DIARRHEA 01/14/2018 Benoit, Lorena W A49.3 MYCOPLASMA INFECTION, UNSPECIFIED SITE 01/14/2018 Benoit, Lorena W E87.6 HYPOKALEMIA 01/14/2018 Benoit, Lorena W K52.9 NONINFECTIVE GASTROENTERITIS AND COLITIS, UNSPECIFIED 01/14/2018 Benoit, Lorena W R19.7 DIARRHEA, UNSPECIFIED 01/16/2018 Benoit, Lorena W 041.81 MYCOPLASMA INFECTION IN CONDITIONS CLASSIFIED ELSEWHERE AND OF UNSPECIFIED SITE 01/16/2018 Benoit, Lorena W 276.8 HYPOPOTASSEMIA 01/16/2018 Benoit, Lorena W 558.9 OTHER AND UNSPECIFIED NONINFECTIOUS GASTROENTERITIS AND COLITIS 01/16/2018 Benoit, Lorena W 787.91 DIARRHEA 01/16/2018 Benoit, Lorena W A49.3 MYCOPLASMA INFECTION, UNSPECIFIED SITE 01/16/2018 Benoit, Lorena W E87.6 HYPOKALEMIA 01/16/2018 Benoit, Lorena W K52.9 NONINFECTIVE GASTROENTERITIS AND COLITIS, UNSPECIFIED 01/16/2018 Benoit, Lorena W R19.7 DIARRHEA, UNSPECIFIED 01/17/2018 Benoit, Lorena W 041.81 MYCOPLASMA INFECTION IN CONDITIONS CLASSIFIED ELSEWHERE AND OF UNSPECIFIED SITE 01/17/2018 Benoit, Lorena W 244.9 01/17/2018 Benoit, Lorena W 272.4 01/17/2018 Benoit, Lorena A 276.51 01/17/2018 Benoit, Lorena W 276.8 HYPOPOTASSEMIA 01/17/2018 Benoit, Lorena W 296.20 01/17/2018 Benoit, Lorena W 357.9 01/17/2018 [facility]na W 401.0 01/17/2018 [facility], Lorena W 558.9 OTHER AND UNSPECIFIED NONINFECTIOUS GASTROENTERITIS AND COLITIS 01/17/2018 [facility], Lorena W 714.0 01/17/2018 [facility], Lorena W 719.45 01/17/2018 [facility], Lorena W 787.91 DIARRHEA 01/17/2018 [facility], Lorena W 791.9 01/17/2018 [facility], [place]na W A49.3 MYCOPLASMA INFECTION, UNSPECIFIED SITE 01/17/2018 [facility], Lorena W B96.0 01/17/2018 [facility], [facility]na W E03.9 HYPOTHYROIDISM, UNSPECIFIED 01/17/2018 [facility], Lorena W E78.5 01/17/2018 [facility], Lorena A E86.0 DEHYDRATION 01/17/2018 [facility], Lorena W E87.6 HYPOKALEMIA 01/17/2018 [facility], [place]orena W F32.9 01/17/2018 [facility], [place]na W G62.9 POLYNEUROPATHY, UNSPECIFIED 01/17/2018 [facility], Lorena W I10 01/17/2018 [facility], Lorena W K52.9 NONINFECTIVE GASTROENTERITIS AND COLITIS, UNSPECIFIED 01/17/2018 [facility], Lorena W M06.9 01/17/2018 [facility], [place]na W M25.551 PAIN IN RIGHT HIP 01/17/2018 [facility], Lorena W R19.7 DIARRHEA, UNSPECIFIED 01/17/2018 [facility], Lorena W R82.99 OTHER ABNORMAL FINDINGS IN URINE 02/04/2018 Bruce Stoner 285.9 ANEMIA, UNSPECIFIED 02/04/2018 Bruce Stoner 401.0 MALIGNANT ESSENTIAL HYPERTENSION 02/04/2018 Bruce Stoner 562.12 DIVERTICULOSIS OF COLON WITH HEMORRHAGE 02/04/2018 Bruce Stoner 787.7 ABNORMAL FECES 02/04/2018 Bruce Stoner 787.91 DIARRHEA 02/04/2018 Bruce Stoner D64.9 ANEMIA, UNSPECIFIED 02/04/2018 Bruce Stoner I10 ESSENTIAL (PRIMARY) HYPERTENSION 02/04/2018 Bruce Stoner K57.30 DVRTCLOS OF LG INT W/O PERFORATION OR ABSCESS W/O BLEEDING 02/04/2018 Bruce Stoner W R19.5 OTHER FECAL ABNORMALITIES 02/04/2018 Bruce Stoner A R19.7 DIARRHEA, UNSPECIFIED 02/11/2018 Jac Vanessa A 530.81 02/11/2018 Jac Vanessa W 535.50 UNSPECIFIED GASTRITIS AND GASTRODUODENITIS, WITHOUT MENTION OF HEMORRHAGE 02/11/2018 Jac Vanessa W 552.3 DIAPHRAGMATIC HERNIA WITH OBSTRUCTION 02/11/2018 Jac Vanessa W 562.12 DIVERTICULOSIS OF COLON WITH HEMORRHAGE 02/11/2018 Jac Vanessa W 787.7 02/11/2018 Jac Vanessa W 787.91 DIARRHEA 02/11/2018 Jac Vanessa K21.9 GASTRO-ESOPHAGEAL REFLUX DISEASE WITHOUT ESOPHAGITIS 02/11/2018 Jac Vanessa K29.60 OTHER GASTRITIS WITHOUT BLEEDING 02/11/2018 Jac Vanessa K44.9 DIAPHRAGMATIC HERNIA WITHOUT OBSTRUCTION OR GANGRENE 02/11/2018 Jac Vanessa K57.30 DVRTCLOS OF LG INT W/O PERFORATION OR ABSCESS W/O BLEEDING 02/11/2018 Jac Vanessa W R19.5 OTHER FECAL ABNORMALITIES 02/11/2018 Jac Vanessa R19.7 DIARRHEA, UNSPECIFIED 02/12/2018 GISELA HIGGINBOTHAM A 251.2 02/12/2018 GISELA HIGGINBOTHAM W 276.8 HYPOPOTASSEMIA 02/12/2018 GISELA HIGGINBOTHAM W 285.9 ANEMIA, UNSPECIFIED 02/12/2018 GISELA HIGGINBOTHAM W 401.0 MALIGNANT ESSENTIAL HYPERTENSION 02/12/2018 GISELA HIGGINBOTHAM W 428.9 HEART FAILURE, UNSPECIFIED 02/12/2018 GISELA HIGGINBOTHAM W D64.9 ANEMIA, UNSPECIFIED 02/12/2018 GISELA HIGGINBOTHAM A E16.2 HYPOGLYCEMIA, UNSPECIFIED 02/12/2018 GISELA HIGGINBOTHAM W E87.6 HYPOKALEMIA 02/12/2018 GISELA HIGGINBOTHAM W I10 ESSENTIAL (PRIMARY) HYPERTENSION 02/12/2018 GISELA HIGGINBOTHAM W I50.9 HEART FAILURE, UNSPECIFIED 04/10/2018 Luis Daniel Madden W 357.9 UNSPECIFIED INFLAMMATORY AND TOXIC NEUROPATHIES 04/10/2018 Luis Daniel Madden W 401.0 MALIGNANT ESSENTIAL HYPERTENSION 04/10/2018 Luis Daniel Madden W 428.9 HEART FAILURE, UNSPECIFIED 04/10/2018 Luis Daniel Madden W 707.05 PRESSURE ULCER, BUTTOCK 04/10/2018 Luis Daniel Madden A 707.15 04/10/2018 Luis Daniel Madden W G62.9 POLYNEUROPATHY, UNSPECIFIED 04/10/2018 Luis Daniel Madden W I10 ESSENTIAL (PRIMARY) HYPERTENSION 04/10/2018 Luis Daniel Madden W I50.9 HEART FAILURE, UNSPECIFIED 04/10/2018 Luis Daniel Madden W L89.322 PRESSURE ULCER OF LEFT BUTTOCK, STAGE 2 04/10/2018 Luis Daniel Madden A L97.511 NON-PRS CHRONIC ULCER OTH PRT R FOOT LIMITED TO BRKDWN SKIN 04/10/2018 Luis Daniel Madden W V58.30 ENCOUNTER FOR CHANGE OR REMOVAL OF NONSURGICAL WOUND DRESSING 04/10/2018 Luis Daniel Madden W Z48.00 ENCOUNTER FOR CHANGE OR REMOVAL OF NONSURG WOUND DRESSING 08/01/2018 Jean Wallace 719.41 PAIN IN JOINT INVOLVING SHOULDER REGION 08/01/2018 Jean Wallace 780.8 GENERALIZED HYPERHIDROSIS 08/01/2018 Jean Wallace 785.0 TACHYCARDIA, UNSPECIFIED 08/01/2018 Jean Wallace 786.50 UNSPECIFIED CHEST PAIN 08/01/2018 Jean Wallace 787.02 NAUSEA ALONE 08/01/2018 Jean Wallace M25.512 PAIN IN LEFT SHOULDER 08/01/2018 Jean Wallace R00.0 TACHYCARDIA, UNSPECIFIED 08/01/2018 Jean Wallace R07.9 CHEST PAIN, UNSPECIFIED 08/01/2018 Jean Wallace R11.0 NAUSEA 08/01/2018 Jean Wallace R61 GENERALIZED HYPERHIDROSIS 08/04/2018 Jacqui Lewis W 338.2 CHRONIC PAIN 08/04/2018 Jacqui Lewis 724.5 BACKACHE, UNSPECIFIED 08/04/2018 Jacqui Lewis W 787.02 NAUSEA ALONE 08/04/2018 Jacqui Lewis W G89.29 OTHER CHRONIC PAIN 08/04/2018 Jacqui Lewis A M54.9 DORSALGIA, UNSPECIFIED 08/04/2018 Jacqui Lewis W R11.0 NAUSEA 08/05/2018 W 715.11 OSTEOARTHROSIS, LOCALIZED, PRIMARY, INVOLVING SHOULDER REGION 08/05/2018 W M19.012 PRIMARY OSTEOARTHRITIS, LEFT SHOULDER 08/16/2018 Gianni Gibson 844.9 SPRAIN OF UNSPECIFIED SITE OF KNEE AND LEG 08/16/2018 Gianni Gibson 922.31 CONTUSION OF BACK 08/16/2018 Gianni Gibson S30.0XXA CONTUSION OF LOWER BACK AND PELVIS, INITIAL ENCOUNTER 08/16/2018 Gianni Gibson S83.91XA SPRAIN OF UNSPECIFIED SITE OF RIGHT KNEE, INITIAL ENCOUNTER Procedures Code [place] [address] PSYCH IND W/MED CK 20 11/13/2011 92145 PSYCH IND W/MED CK 20 11/18/2012 06106 PSYCH IND W/MED CK 20 01/24/2013 Results Test Result Range Hemoglobin A1C - 01/12/17 14:47 % A1C 5.50 % 5.40-6.60 AvGlu 117 mg/dL 70-110 Urinalysis - 01/12/17 15:51 Icotest Positive Negative Urine Volume Urine Volume Sufficient (10mL) Urine-Appearance Cloudy Clear Urine-Bacteria 2+ Urine-Bilirubin 2+ Negative Urine-Blood Trace-lysed Negative Urine-Color Yellow Colorless-Lt. Yellow Urine-Epithelial Cells 5-10/HPF Urine-Glucose Negative Negative Urine-Ketones 4+ Negative Urine-Leukocytes Trace Negative Urine-Mucus 1+ Urine-Nitrite Negative Negative Urine-Other Urine Saved if Culture Needed (48hrs from time of collection) Urine-pH 5.5 5-8.5 Urine-Protein 2+ Negative Urine-Specific [place] >=1.030 1.000-1.030 Urine-WBC 2-5/HPF Urobilinogen 0.2 E.U./dL 0.2-1.0 Comprehensive Metabolic Panel - 01/13/17 06:09 Albumin 3.9 g/dL 3.6-5.1 ALP 108 U/L 35-130 ALT 18 U/L 6-45 Anion Gap 20 6-14 AST 19 U/L 2-40 BUN 29 mg/dL 5-25 Calcium 9.2 mg/dL 8.3-10.4 Chloride 108 mmol/L 95-114 CO2 20 mEq/L 22-33 Creat 1.15 mg/dL 0.50-1.50 eGFR 47 mL/min/1.73m2 >59 Globulin 2.3 g/dL 2.3-3.5 Glucose 120 mg/dL 70-110 Osmo 304 280-295 Potassium 3.6 mmol/L 3.5-5.3 Sodium 144 mmol/L 134-148 TBil 1.4 mg/dL 0.2-1.2 TP 6.2 g/dL 6.0-8.3 [facility] - 07/23/17 12:20 Anion Gap 21 6-14 BUN 15 mg/dL 5-25 Calcium 10.0 mg/dL 8.3-10.4 Chloride 99 mmol/L 95-114 CO2 30 mEq/L 22-33 Creat 1.02 mg/dL 0.50-1.50 eGFR 54 mL/min/1.73m2 >59 Glucose 117 mg/dL 70-110 Osmo 305 280-295 Potassium 3.2 mmol/L 3.5-5.3 Sodium 147 mmol/L 134-148 Sed Rate - 07/23/17 12:20 Sed Rate 2 mm/hr 9-15 [facility] - 07/24/17 07:17 Anion Gap 14 6-14 BUN 13 mg/dL 5-25 Calcium 8.7 mg/dL 8.3-10.4 Chloride 111 mmol/L 95-114 CO2 28 mEq/L 22-33 Creat 0.86 mg/dL 0.50-1.50 eGFR 65 mL/min/1.73m2 >59 Glucose 91 mg/dL 70-110 Osmo 307 280-295 Potassium 3.9 mmol/L 3.5-5.3 Sodium 149 mmol/L 134-148 Comprehensive Metabolic Panel - 07/25/17 07:40 Albumin 3.6 g/dL 3.6-5.1 ALP 85 U/L 35-130 ALT 29 U/L 6-45 Anion Gap 13 6-14 AST 19 U/L 2-40 BUN 7 mg/dL 5-25 Calcium 8.9 mg/dL 8.3-10.4 Chloride 110 mmol/L 95-114 CO2 25 mEq/L 22-33 Creat 0.87 mg/dL 0.50-1.50 eGFR 64 mL/min/1.73m2 >59 Globulin 2.2 g/dL 2.3-3.5 Glucose 90 mg/dL 70-110 Osmo 295 280-295 Potassium 3.8 mmol/L 3.5-5.3 Sodium 144 mmol/L 134-148 TBil 1.3 mg/dL 0.2-1.2 TP 5.8 g/dL 6.0-8.3 Urinalysis - 07/25/17 10:40 Icotest Negative Negative Urine Volume Urine Volume Sufficient (10mL) Urine Yeast No Yeast present Urine-Appearance Slightly Cloudy Clear Urine-Bacteria Trace Urine-Bilirubin 1+ Negative Urine-Blood Trace-intact Negative Urine-Color Yellow Colorless-Lt. Yellow Urine-Epithelial Cells 5-10/HPF Urine-Glucose Negative Negative Urine-Ketones Trace Negative Urine-Leukocytes Negative Negative Urine-Mucus 3+ Urine-Nitrite Negative Negative Urine-Other Culture to follow Urine-pH 6.0 5-8.5 Urine-Protein Negative Negative Urine-RBC Rare/HPF Urine-Specific [place] 1.020 1.000-1.030 Urine-WBC 2-5/HPF Urobilinogen 1.0 E.U./dL 0.2-1.0 Comprehensive Metabolic Panel - 11/17/17 02:09 Albumin 3.1 g/dL 3.6-5.1 ALP 99 U/L 35-130 ALT 12 U/L 6-45 Anion Gap 16 6-14 AST 14 U/L 2-40 BUN 8 mg/dL 5-25 Calcium 9.2 mg/dL 8.3-10.4 Chloride 111 mmol/L 95-114 CO2 23 mEq/L 22-33 Creat 0.77 mg/dL 0.50-1.50 eGFR 74 mL/min/1.73m2 >59 Globulin 2.1 g/dL 2.3-3.5 Glucose 110 mg/dL 70-110 Osmo 302 280-295 Potassium 3.0 mmol/L 3.5-5.3 Sodium 147 mmol/L 134-148 TBil 1.0 mg/dL 0.2-1.2 TP 5.2 g/dL 6.0-8.3 Urinalysis - 11/17/17 03:40 Icotest Negative Negative Urine Volume Urine Volume Sufficient (10mL) Urine Yeast No Yeast present Urine-Appearance Slightly Cloudy Clear Urine-Bacteria Trace Urine-Bilirubin 1+ Negative Urine-Blood Negative Negative Urine-Color Yellow Colorless-Lt. Yellow Urine-Epithelial Cells 10-20/HPF Urine-Glucose Negative Negative Urine-Ketones 4+ Negative Urine-Leukocytes Negative Negative Urine-Mucus 1+ Urine-Nitrite Negative Negative Urine-Other Urine Saved if Culture Needed (48hrs from time of collection) Urine-pH 5.5 5-8.5 Urine-Protein Trace Negative Urine-RBC Rare/HPF Urine-Specific [place] >=1.030 1.000-1.030 Urine-WBC Rare/HPF Urobilinogen 0.2 0.2-1.0 BNP - 01/12/18 15:46 BNP 54.60 pg/ml 0.00-100.00 Mycoplasma - 01/12/18 15:46 Mycoplasma Positive Negative Blood Culture - 01/12/18 15:46 PRELIM CULTURE RESULTS Blood Culture Negative, No Growth Day 1 FINAL CULTURE RESULTS Blood Culture Negative, No Growth Day 5 MEDIA PLATED Blood Culture Media Position A12 CULTURE SOURCE RIGHT ARM Fecal Leukocyte - 01/12/18 17:01 Fecal Leukocyte Negative Negative Stool Culture - 01/12/18 17:18 Stool Culture Note Ova + Parasite Exam - 01/12/18 17:18 Ova + Parasite Exam Note White Blood Cells (WBC), Stool - 01/12/18 17:18 White Blood Cells (WBC), Stool Note Stool Culture - 01/12/18 17:18 CAMPYLOBACTER CULTURE FINAL REPORT E COLI SHIGA TOXIN EIA NEGATIVE NEGATIVE RESULT 1 NO SALMONELLA OR SHIGELLA RECOVERED. Salmonella/Shigella Screen FINAL REPORT Result 1 NO CAMPYLOBACTER SPECIES ISOLATED. Urinalysis - 01/12/18 17:30 Icotest Negative Negative Urine Volume Urine Volume Insufficient (<10mL) May Affect Microscopic Exam Urine Yeast No Yeast present Urine-Appearance Slightly Cloudy Clear Urine-Bacteria Trace Urine-Bilirubin 3+ Negative Urine-Blood Negative Negative Urine-Color Yellow Colorless-Lt. Yellow Urine-Epithelial Cells 0-5/HPF Urine-Glucose Negative Negative Urine-Ketones 4+ Negative Urine-Leukocytes Negative Negative Urine-Mucus 3+ Urine-Nitrite Negative Negative Urine-Other Culture to follow Urine-pH 6.0 5-8.5 Urine-Protein 2+ Negative Urine-RBC 0-2/HPF Urine-Specific [place] >=1.030 1.000-1.030 Urine-WBC 2-5/HPF Urobilinogen 1.0 0.2-1.0 Urine Culture - 01/12/18 18:06 PRELIM CULTURE RESULTS No Growth 24 hours FINAL CULTURE RESULTS No Growth 48 hours MEDIA PLATED Setup at 18:11 on 01/12/2018 CULTURE SOURCE cath Blood Culture - 01/12/18 19:29 PRELIM CULTURE RESULTS Blood Culture Negative, No Growth Day 1 FINAL CULTURE RESULTS Blood Culture Negative, No Growth Day 5 MEDIA PLATED Blood Culture Media Position A11 CULTURE SOURCE LEFT ARM Comprehensive Metabolic Panel - 01/13/18 06:43 Albumin 3.3 g/dL 3.6-5.1 ALP 98 U/L 35-130 ALT 8 U/L 6-45 Anion Gap 14 6-14 AST 12 U/L 2-40 BUN 9 mg/dL 5-25 Calcium 8.3 mg/dL 8.3-10.4 Chloride 112 mmol/L 95-114 CO2 23 mEq/L 22-33 Creat 0.78 mg/dL 0.50-1.50 eGFR 73 mL/min/1.73m2 >59 Globulin 1.7 g/dL 2.3-3.5 Glucose 82 mg/dL 70-110 Osmo 297 280-295 Potassium 3.7 mmol/L 3.5-5.3 Sodium 145 mmol/L 134-148 TBil 1.2 mg/dL 0.2-1.2 TP 5.0 g/dL 6.0-8.3 [facility] - 01/14/18 06:55 Anion Gap 13 6-14 BUN 6 mg/dL 5-25 Calcium 8.2 mg/dL 8.3-10.4 Chloride 115 mmol/L 95-114 CO2 19 mEq/L 22-33 Creat 0.76 mg/dL 0.50-1.50 eGFR 75 mL/min/1.73m2 >59 Glucose 97 mg/dL 70-110 Osmo 293 280-295 Potassium 3.6 mmol/L 3.5-5.3 Sodium 143 mmol/L 134-148 [facility] - 01/15/18 07:00 Anion Gap 15 6-14 BUN 3 mg/dL 5-25 Calcium 9.2 mg/dL 8.3-10.4 Chloride 115 mmol/L 95-114 CO2 21 mEq/L 22-33 Creat 0.73 mg/dL 0.50-1.50 eGFR 79 mL/min/1.73m2 >59 Glucose 95 mg/dL 70-110 Osmo 298 280-295 Potassium 4.5 mmol/L 3.5-5.3 Sodium 146 mmol/L 134-148 [facility] - 01/17/18 08:51 Anion Gap 16 6-14 BUN 4 mg/dL 5-25 Calcium 9.2 mg/dL 8.3-10.4 Chloride 105 mmol/L 95-114 CO2 26 mEq/L 22-33 Creat 0.78 mg/dL 0.50-1.50 eGFR 73 mL/min/1.73m2 >59 Glucose 102 mg/dL 70-110 Osmo 292 280-295 Potassium 3.5 mmol/L 3.5-5.3 Sodium 143 mmol/L 134-148 [facility] - 02/03/18 01:20 Anion Gap 13 6-14 BUN 10 mg/dL 5-25 Calcium 8.9 mg/dL 8.3-10.4 Chloride 110 mmol/L 95-114 CO2 23 mEq/L 22-33 Creat 0.91 mg/dL 0.50-1.50 eGFR 61 mL/min/1.73m2 >59 Glucose 92 mg/dL 70-110 Osmo 292 280-295 Potassium 3.9 mmol/L 3.5-5.3 Sodium 142 mmol/L 134-148 IFOBT Occult Blood - 02/03/18 01:59 IFOBT Occult Blood POSITIVE Negative EKG - 02/03/18 02:20 EKG Complete [facility] - 02/03/18 06:35 Anion Gap 15 6-14 BUN 9 mg/dL 5-25 Calcium 8.9 mg/dL 8.3-10.4 Chloride 112 mmol/L 95-114 CO2 21 mEq/L 22-33 Creat 0.83 mg/dL 0.50-1.50 eGFR 68 mL/min/1.73m2 >59 Glucose 78 mg/dL 70-110 Osmo 295 280-295 Potassium 3.9 mmol/L 3.5-5.3 Sodium 144 mmol/L 134-148 - 02/03/18 17:50 Hct 34.7 % 36.0-46.0 Hgb 11.2 g/dL 13.0-15.0 CBC with Auto Diff - 02/04/18 07:00 Baso% 0.00 % 0.00-2.50 Eos 0.0 K/uL 0.0-0.7 Eos% 0.9 % 0.0-7.0 Hct 35.1 % 36.0-46.0 Hgb 11.4 g/dL 13.0-15.0 Lym 1.18 K/uL 0.60-3.40 Lym% 35.6 % 10.0-50.0 MCH 30.6 pg 27.0-31.0 MCHC 32.5 g/dL 32.0-36.0 MCV 94.4 fL 80.0-97.0 Kendall% 10.0 % 0.0-12.0 MPV 10.0 fL 7.4-10.0 Deanna% 53.5 % 37.0-80.0 Plt 175 K/uL 150-400 RBC 3.72 M/uL 3.60-5.00 RDW 14.0 % 11.6-14.8 WBC 3.31 K/uL 5.00-10.00 Deanna 1.77 K/uL 2.00-6.90 Kendall 0.3 K/uL 0.0-0.9 Baso 0.0 K/uL 0.0-0.2 Surgical Pathology - 02/11/18 09:35 Surg Path Sent to [facility] Comprehensive Metabolic Panel - 02/12/18 05:21 Albumin 3.2 g/dL 3.6-5.1 ALP 107 U/L 35-130 ALT 12 U/L 6-45 Anion Gap 14 6-14 AST 9 U/L 2-40 BUN 7 mg/dL 5-25 Calcium 9.0 mg/dL 8.3-10.4 Chloride 107 mmol/L 95-114 CO2 26 mEq/L 22-33 Creat 0.87 mg/dL 0.50-1.50 eGFR 64 mL/min/1.73m2 >59 Globulin 1.7 g/dL 2.3-3.5 Glucose 94 mg/dL 70-110 Osmo 293 280-295 Potassium 3.7 mmol/L 3.5-5.3 Sodium 143 mmol/L 134-148 TBil 0.3 mg/dL 0.2-1.2 TP 4.9 g/dL 6.0-8.3 Cardiac Panel - 02/12/18 05:38 CK 24 U/L 26-174 CK-MB 0.6 ng/ml 0.0-9.2 Myoglobin 32.4 ng/ml 1.6-106.0 Troponin <0.020 ng/mL 0.0-0.4 Urinalysis - 02/12/18 07:29 Icotest N/A Negative Urine Volume Urine Volume Sufficient (10mL) Urine Yeast No Yeast present Urine-Appearance Clear Clear Urine-Bacteria Negative Urine-Bilirubin Negative Negative Urine-Blood Negative Negative Urine-Color Yellow Colorless-Lt. Yellow Urine-Epithelial Cells 0-5/HPF Urine-Glucose Negative Negative Urine-Ketones Negative Negative Urine-Leukocytes Negative Negative Urine-Nitrite Negative Negative Urine-Other Urine Saved if Culture Needed (48hrs from time of collection) Urine-pH 5.5 5-8.5 Urine-Protein Negative Negative Urine-RBC 0-2/HPF Urine-Specific [place] <=1.005 1.000-1.030 Urine-WBC Negative Urobilinogen 0.2 E.U./dL 0.2-1.0 CBC with Auto Diff - 02/22/18 11:00 Baso% 0.20 % 0.00-2.50 Eos 0.1 K/uL 0.0-0.7 Eos% 1.1 % 0.0-7.0 Hct 34.6 % 36.0-46.0 Hgb 11.1 g/dL 13.0-15.0 Lym 1.70 K/uL 0.60-3.40 Lym% 36.3 % 10.0-50.0 MCH 29.9 pg 27.0-31.0 MCHC 32.1 g/dL 32.0-36.0 MCV 93.3 fL 80.0-97.0 Kendall% 15.2 % 0.0-12.0 MPV 11.0 fL 7.4-10.0 Deanna% 47.2 % 37.0-80.0 Plt 252 K/uL 150-400 RBC 3.71 M/uL 3.60-5.00 RDW 13.5 % 11.6-14.8 WBC 4.68 K/uL 5.00-10.00 Deanna 2.21 K/uL 2.00-6.90 Kendall 0.7 K/uL 0.0-0.9 Baso 0.0 K/uL 0.0-0.2 Comprehensive Metabolic Panel - 08/01/18 14:17 Albumin 3.6 g/dL 3.6-5.1 ALP 114 U/L 35-130 ALT 7 U/L 6-45 Anion Gap 13 6-14 AST 10 U/L 2-40 BUN 6 mg/dL 5-25 Calcium 9.8 mg/dL 8.3-10.4 Chloride 103 mmol/L 95-114 CO2 26 mEq/L 22-33 Creat 0.78 mg/dL 0.50-1.50 eGFR 73 mL/min/1.73m2 >59 Globulin 3.0 g/dL 2.3-3.5 Glucose 144 mg/dL 70-110 Osmo 287 280-295 Potassium 2.7 mmol/L 3.5-5.3 Sodium 139 mmol/L 134-148 TBil 1.0 mg/dL 0.2-1.2 TP 6.6 g/dL 6.0-8.3 Encounters ACCT No. Visit Date/Time Discharge Status Pt. Type Provider Facility Loc./Unit Complaint [id number] 09/30/2014 16:41:00 09/30/2014 23:59:59 CLS Outpatient RONALD KIEL MICHELLE Mcgovern [id number] 07/15/2014 13:28:00 07/15/2014 23:59:59 CLS Outpatient ESPITIA APRN, SAMARA KEVIN [id number] 05/06/2014 09:25:00 05/06/2014 23:59:59 CLS Outpatient ESPITIA APRN, SAMARA KEVIN [id number] 04/06/2014 09:02:00 04/06/2014 23:59:59 CLS Outpatient NUPUR ALBERT SAMARA KEVIN [id number] 02/24/2014 12:55:00 02/24/2014 23:59:59 CLS Outpatient NUPUR ALBERT SAMARA KEVIN [id number] 02/04/2014 13:24:00 02/04/2014 23:59:59 CLS Outpatient NUPUR ALBERT SAMARA KEVIN [id number] 11/19/2013 10:21:00 11/19/2013 23:59:59 CLS Outpatient NUPUR ALBERT SAMARA KEVIN [id number] 09/15/2013 09:11:00 09/15/2013 23:59:59 CLS Outpatient NUPUR ALBERT SAMARA BROWN [id number] 06/03/2013 13:58:00 06/03/2013 23:59:59 CLS Outpatient ANDER GRANT DO [id number] 11/18/2012 13:44:00 11/18/2012 23:59:59 CLS Outpatient SAMARA ESPITIA APRN [id number] 10/17/2012 14:16:00 10/17/2012 23:59:59 CLS Outpatient SAMARA ESPITIA APRN [id number] 11/10/2011 14:31:00 11/10/2011 23:59:59 CLS Outpatient [id number] 04/10/2013 11:20:00 Document Registration [id number] 01/24/2013 13:15:00 Document Registration [id number] 08/16/2018 08:57:00 08/16/2018 10:23:00 DIS Outpatient Angelicastephany [facility] ER [id number] 08/04/2018 00:35:00 08/04/2018 01:58:00 DIS Outpatient Jacqui Lewis [facility] ER [id number] 08/01/2018 14:00:00 08/01/2018 15:05:[address] [facility] ER [id number] 07/17/2018 09:16:00 07/17/2018 23:59:00 DIS Outpatient ANGELICANINO [id number] 01/18/2018 00:00:00 04/10/2018 07:48:00 DIS Outpatient Chano Luis Daniel [id number] 02/22/2018 12:04:00 02/22/2018 23:59:00 DIS Outpatient Gabrielkat Luis Daniel [id number] 02/12/2018 05:09:00 02/12/2018 08:24:00 DIS Outpatient GISELA HIGGINBOTHAM [facility] ER [id number] 02/11/2018 06:58:00 02/11/2018 09:30:00 DIS Outpatient Jac Vanessa [id number] 02/03/2018 00:28:00 02/04/2018 14:40:00 DIS Outpatient Bruce Stoner [facility] MED-SURG [id number] 01/14/2018 08:15:00 01/17/2018 14:00:00 DIS Inpatient Lorena Laboy [facility] MED-SURG [id number] 11/17/2017 02:01:00 11/17/2017 06:53:00 DIS Outpatient Jean Wallace [facility] ER [id number] 07/23/2017 11:33:00 07/25/2017 14:15:00 DIS Outpatient Lorena Laboy [facility] MED-SURG [id number] 01/12/2017 14:08:00 01/13/2017 13:20:00 DIS Outpatient Matt Ragland [id number] 07/19/2018 10:31:21 Document Registration [id number] 01/12/2017 14:50:40 Document Registration [id number] 01/19/2018 04:11:00 Document Registration [id number] 05/09/2017 12:18:00 05/09/2017 23:59:59 CLS Outpatient AMPARO ESCALANTE, RENU Bañuelos [facility] RAD 4+ [id number]], [id number] 03/19/2017 09:00:00 03/19/2017 23:59:59 CLS Outpatient YURI SEYMOUR MD [facility] RAD DIARRHEA [id number] 06/10/2015 16:09:00 06/26/2015 11:30:00 DIS Inpatient SANGEETA ESCALANTE, MUKUL Cordova [facility] IRF
--- NOTE | 2018-08-29 19:53 | ED Lower Extremity ---
General Stated Complaint: R LOWER LEG POSS CELLULITIS Source: patient, other Exam Limitations: no limitations History of Present Illness Date Seen by Provider: Aug 29, 2018 Time Seen by Provider: 19:40 Initial Comments The patient presents to ER by private conveyance with her friend and chief complaint that today started noticing some increasing redness warmth and heat circumferentially on her right lower extremity distal to her right knee that was injured about 3 weeks ago from a fall. She is followed by Dr. Parks an orthopedic surgeon from [place] and they are not going to do surgery at this time. She had cellulitis in this leg several times before the knee injury as well as sense. She just got off antibiotics a few weeks ago. She has an allergy to Bactrim which causes diarrhea. She's not having any fevers chills nausea vomiting chest pain shortness of breath or wheezing. She's never had blood clots before. She's not on blood thinners. She had a sister who had some blood clots. She says this is the same presentations when she gets cellulitis. Allergies and Home Medications Allergies Coded Allergies: Sulfa (Sulfonamide Antibiotics) (Verified Allergy, Unknown, 06/10/15) Home Medications Amitriptyline HCl 25 Mg Tablet, 25 MG PO HS, (Reported) Aripiprazole 15 Mg Tablet, 15 MG PO DAILY, (Reported) Cholecalciferol (Vitamin D3) 1,000 Unit Tablet, 1,000 UNIT PO DAILY, (Reported) Cyclobenzaprine HCl 10 Mg Tablet, 10 MG PO BID, (Reported) Gabapentin 300 Mg Capsule, 300 MG PO BID, (Reported) Hydrocodone Bit/Acetaminophen 1 Each Tablet, 1 EACH PO Q8H PRN for PAIN, ( Reported) Levothyroxine Sodium 75 Mcg Tablet, 75 MCG PO DAILY, (Reported) Memantine HCl 5 Mg Tablet, 5 MG PO BID 5 MG PO Q AM and HS. Prescribed by: BLU QUINONES on 06/10/15 1523 Methotrexate Tablet 2.5 Mg Tablet, 15 MG PO Sunday, (Reported) Metoprolol Tartrate 50 Mg Tablet, 50 MG PO DAILY, (Reported) Pantoprazole Sodium 40 Mg Tablet.dr, 40 MG PO DAILY, (Reported) Pramipexole 0.125 Mg Tablet, 0.125 MG PO HS, (Reported) Sumatriptan Succinate 100 Mg Tablet, 0.5 TAB PO PRN PRN for HEADACHE May repeat in 2 hours; Max 200 MG/24 hours. Prescribed by: BLU QUINONES on 06/10/151554 Tramadol HCl 50 Mg Tablet, 50 MG PO BID, (Reported) Vitamin E 400 Unit Capsule, 400 UNIT PO DAILY, (Reported) Vortioxetine Hydrobromide 5 Mg Tablet, 5 MG PO DAILY, (Reported) [Biotin] , 10,000 MCG PO Evening Prescribed by: BLU QUINONES on 06/12/15 153 [Folic Acid 1MG] , 2 MG PO DAILY, (Reported) [Iron 65MG] , 65 MG PO Evening Prescribed by: BLU QUINONES on 06/12/15 153 [Nitrostat] , 0.4 MG SL UD Q5 min X3 PRN. Prescribed by: BLU QUINONES on 06/10/151554 [Potassium] , 20 MEQ PO BID, (Reported) Patient Home Medication List Home Medication List Reviewed: Yes Review of Systems Constitutional: No chills, No diaphoresis, No fever EENTM: No ear discharge, No ear pain Respiratory: No cough, No short of breath Cardiovascular: No chest pain, No edema Gastrointestinal: No abdominal pain, No nausea, No vomiting Genitourinary: No discharge, No dysuria Past Whnhayw-Niyusd-Gjhkeh Hx Patient Social History Alcohol Use: Denies Use Recreational Drug Use: No Smoking Status: Never a Smoker Recent Foreign Travel: No Contact w/Someone Who Travel: No Immunizations Up To Date Date of Pneumonia Vaccine: Nov 05, 2012 Past Medical History Gallbladder Pneumonia Gastroesophageal Reflux Osteoporosis, Arthritis, Fibromyalgia, Rheumatoid Arthritis Hypothyroidsim Glaucoma Physical Exam Vital Signs Vital Signs - First Documented 08/29/18 19:38 Temp 99.2 Pulse 85 Resp 24 B/P (MAP) 154/85 (108) Pulse Ox 95 O2 Delivery Room Air Capillary Refill : Height, Weight, BMI Height: 5'3.00" Weight: 145lbs. 11.2oz. [id number]; BMI Method: General Appearance: WD/WN, no apparent distress HEENT: PERRL/EOMI, normal ENT inspection, pharynx normal Neck: non-tender, normal inspection Cardiovascular: normal peripheral pulses, regular rate, rhythm, no edema Respiratory: chest non-tender, lungs clear, normal breath sounds, no respiratory distress, no accessory muscle use Gastrointestinal: non tender, soft Legs: left leg non-tender, left leg normal inspection, left leg normal range of motion, left leg no evidence of injury; right leg limited range of motion ( Right knee secondary to recent injury), right leg pain (Mild), right leg soft tissue tenderness (Mild), right leg swelling (Mild), right leg other (Calor without evidence of knots and negative for Homans sign.) Progress/Results/Core Measures Results/Orders Lab Results Laboratory Tests Test 08/29/18 20:10 Range/Units White Blood Count 4.3 4.3-11.0 10^3/uL Red Blood Count 3.76 L 4.35-5.85 10^6/uL Hemoglobin 10.7 L 11.5-16.0 G/DL Hematocrit 34 L 35-52 % Mean Corpuscular Volume 90 80-99 FL Mean Corpuscular Hemoglobin 29 25-34 PG Mean Corpuscular Hemoglobin Concent 32 32-36 G/DL Red Cell Distribution Width 15.4 H 10.0-14.5 % Platelet Count 219 130-400 10^3/uL Mean Platelet Volume 9.1 7.4-10.4 FL Neutrophils (%) (Auto) 52 42-75 % Lymphocytes (%) (Auto) 35 12-44 % Monocytes (%) (Auto) 11 0-12 % Eosinophils (%) (Auto) 2 0-10 % Basophils (%) (Auto) 0 0-10 % Neutrophils # (Auto) 2.2 1.8-7.8 X 10^3 Lymphocytes # (Auto) 1.5 1.0-4.0 X 10^3 Monocytes # (Auto) 0.5 0.0-1.0 X 10^3 Eosinophils # (Auto) 0.1 0.0-0.3 10^3/uL Basophils # (Auto) 0.0 0.0-0.1 10^3/uL Erythrocyte Sedimentation Rate 24 0-30 MM/HR Sodium Level 141 135-145 MMOL/L Potassium Level 3.4 L 3.6-5.0 MMOL/L Chloride Level 104 98-107 MMOL/L Carbon Dioxide Level 26 21-32 MMOL/L Anion Gap 11 5-14 MMOL/L Blood Urea Nitrogen 9 7-18 MG/DL Creatinine 0.89 0.60-1.30 MG/DL Estimat Glomerular Filtration Rate > 60 BUN/Creatinine Ratio 10 Glucose Level 95 70-105 MG/DL Lactic Acid Level 0.80 0.50-2.00 MMOL/L Calcium Level 9.1 8.5-10.1 MG/DL Corrected Calcium 9.5 8.5-10.1 MG/DL Total Bilirubin 0.5 0.1-1.0 MG/DL Aspartate Amino Transf (AST/SGOT) 13 5-34 U/L Alanine Aminotransferase (ALT/SGPT) 9 0-55 U/L Alkaline Phosphatase 171 H 40-136 U/L C-Reactive Protein High Sensitivity 0.29 0.00-0.50 MG/DL Total Protein 5.2 L 6.4-8.2 GM/DL Albumin 3.5 3.2-4.5 GM/DL My Orders Orders - KIRSTIN GARZA Cbc With Automated Diff (08/29/18 19:46) Comprehensive Metabolic Panel (08/29/18 19:46) Hs C Reactive Protein (08/29/18 19:46) Erythrocyte Sedimentation Rate (08/29/18 19:46) Ceftriaxone For Iv Use (Rocephin For I (08/29/18 20:00) Blood Culture (08/29/18 19:53) Lactic Acid Analyzer (08/29/18 19:53) Hydrocodone/Apap 5/325 Tablet (Lortab 5 (08/29/18 21:00) Vital Signs/I&O 08/29/18 19:38 Temp 99.2 Pulse 85 Resp 24 B/P (MAP) 154/85 (108) Pulse Ox 95 O2 Delivery Room Air Progress Progress Note #1: Time: 19:51 Progress Note We discussed the recurrent risk of cellulitis versus risk of a DVT. Patient feels That this cellulitis since she's had just recently. She was offered an ultrasound since we don't have ultrasound in house should have to go to [place] to receive this tonight. We'll going to get some labs and see if there is evidence of inflammation and elevated white cell count however she is on IV DMARD's so this may complicate our workup. All of her markers of inflammation the elevated at baseline secondary to her rheumatoid arthritis. We'll obtain labs and then rediscuss with the patient. We'll start with Rocephin on presumption of cellulitis. Vital signs are good however she had a very modest heart rate and great oxygen saturations 96 to percent on room air. Progress Note #2: Time: 21:21 Progress Note We've discussed the options and pursue treating a cellulitis and the patient has deferred doing an ultrasound to rule out a possible clot which seems rather unlikely clinically at this time. Departure Impression Primary Impression: Cellulitis of leg, right Disposition: 01 HOME, SELF-CARE Condition: Stable Departure-Patient Inst. Decision time for Depature: 21:22 Referrals: MAC HANDY MD (PCP/Family) Primary Care Physician Patient Instructions: Cellulitis (Skin Infection), Adult (DC) Add. Discharge Instructions: Expect improvement over the next 3-4 days. Start taking the Keflex 4 times a day for the next 10 days. You should also be taking probiotics one tablet twice a day [id number] while you're on antibiotics to help prevent the common side effects of GI upset and diarrhea. Make an appointment to follow up with your primary care provider in about 1-2 weeks. If you start to have chest pain, shortness of breath or worsening symptoms then you should return to the nearest ER. Scripts Cephalexin (Cephalexin) 500 Mg Tablet 500 MG PO QID for 10 Days, #40 TAB 0 Refills Prov: KIRSTIN GRAZA 08/29/18 Copy Copies To 1: MAC HANDY MD, TITUS J Aug 29, 2018 19:53
[2018-08-29] MEDS ORDERED: cefTRIAXone FOR IV USE 1,000 MG in NS (IVPB) 50 ML IV ONE (20:00)
[2018-08-29 20:26] LABS: BASOPHILS % (AUTO) 0 % (0-10); EOSINOPHILS # (AUTO) 0.1 10^3/uL (0.0-0.3); EOSINOPHILS % (AUTO) 2 % (0-10); HEMATOCRIT 34 % (35-52); HEMOGLOBIN 10.7 G/DL (11.5-16.0); LYMPHOCYTES # (AUTO) 1.5 X 10^3 (1.0-4.0); LYMPHOCYTES % (AUTO) 35 % (12-44); MEAN CORPUSCULAR HEMOGLOBIN 29 PG (25-34); MEAN CORPUSCULAR HGB CONC 32 G/DL (32-36); MEAN CORPUSCULAR VOLUME 90 FL (80-99); MEAN PLATELET VOLUME 9.1 FL (7.4-10.4); MONOCYTES # (AUTO) 0.5 X 10^3 (0.0-1.0); MONOCYTES % (AUTO) 11 % (0-12); NEUTROPHILS # (AUTO) 2.2 X 10^3 (1.8-7.8); NEUTROPHILS % (AUTO) 52 % (42-75); PLATELET COUNT 219 10^3/uL (130-400); RED BLOOD COUNT 3.76 10^6/uL (4.35-5.85); RED CELL DISTRIBUTION WIDTH 15.4 % (10.0-14.5); WHITE BLOOD COUNT 4.3 10^3/uL (4.3-11.0)
[2018-08-29 20:44] LABS: ALANINE AMINOTRANSFERASE 9 U/L (0-55); ALBUMIN 3.5 GM/DL (3.2-4.5); ALKALINE PHOSPHATASE 171 U/L (40-136); BILIRUBIN,TOTAL 0.5 MG/DL (0.1-1.0); BUN/CREATININE RATIO 10; CALCIUM 9.1 MG/DL (8.5-10.1); CARBON DIOXIDE 26 MMOL/L (21-32); CHLORIDE 104 MMOL/L (98-107); CREATININE SERUM 0.89 MG/DL (0.60-1.30); GFR ESTIMATED > 60; GLUCOSE 95 MG/DL (70-105); POTASSIUM 3.4 MMOL/L (3.6-5.0); SODIUM 141 MMOL/L (135-145); TOTAL PROTEIN 5.2 GM/DL (6.4-8.2)
[2018-08-29 20:45] LABS: ERYTHROCYTE SEDIMENTATION RATE 24 MM/HR (0-30)
[2018-08-29] MEDS ORDERED: HYDROcodone/APAP 5 MG/325 MG (LORTAB) TAB PO ONE (21:00)
[2018-08-29] MEDS ORDERED: CEPH500T PO (21:24)
[2018-08-29 22:02] VITALS: BP 153/88
== END 2018-08-29 22:02 | disposition home or self-care (01) ==
LOC: EDUNIT# 19:22 → ER 19:24
DX: L03.115 Cellulitis of right lower limb (principal); M81.0 Age-related osteoporosis without current pathological fracture; K21.9 Gastro-esophageal reflux disease without esophagitis; E03.9 Hypothyroidism, unspecified; Z88.2 Allergy status to sulfonamides; Z87.01 Personal history of pneumonia (recurrent)
CPT/HCPCS: 36415; 80053; 83605; 85025; 85652; 86141; 87040; 96374

== ENCOUNTER 2018-09-28 16:13 | Emergency (ER) | payer MEDICARE, MEDICAID ==
[~2018-09-28] VITALS: Ht 157.5 cm; Wt 63.8 kg
[~2018-09-28 16:13] MED LIST changes: +CEPH500T PO
--- OUTSIDE RECORDS SUMMARY | 2018-09-28 16:18 | XMS REPORT | Clinical Summary ---
Author Author [facility] Organization [facility] Address Unknown Phone Unavailable Care Team Providers Care Admissions Counselor Name Role Phone PCP Unavailable Allergies Not [...]
--- OUTSIDE RECORDS SUMMARY | 2018-09-28 16:18 | XMS REPORT | Clinical Summary ---
Author Author [facility] Organization [facility] Address Unknown Phone Unavailable Care Team Providers Care Microbiology Instructor Name Role Phone Reyes Gao MD Unavailable Reyes Gao MD PCP Source Comments Some departments are not documenting in the electronic medical record. If you do not see the information that you expected, contact Release of Information in the Health Information Management department at [phone] for further assistance in locating additional records.[facility] Allergies Active Allergy Reactions Severity Noted Date [...] Vision loss, bilateral calcitonin salmon Apply 1 [place] to one Active (MIACALCIN) 200 nostril as [...] Taken Blood Pressure 190/102 10/31/2016 2:04 PM SAFETY COORDINATOR Pulse 71 10/31/2016 2:04 PM SAFETY COORDINATOR Temperature - - Respiratory Rate - - Oxygen Saturation - - Inhaled Oxygen - - Concentration Weight 75.3 kg (166 lb) 10/31/2016 2:04 PM SAFETY COORDINATOR Height 162.6 cm (5' 4") 10/31/2016 2:04 PM SAFETY COORDINATOR Body Mass Index 28.49 10/31/2016 2:04 PM SAFETY COORDINATOR Plan of Treatment Health Maintenance Due Date Last Done Comments HEPATITIS C SCREENING 1945 PHYSICAL (COMPREHENSIVE) 1954 EXAM DTAP/TDAP VACCINES (1 - 1965 Tdap) BREAST CANCER SCREENING 1987 COLORECTAL CANCER 1997 SCREENING SHINGLES RECOMBINANT 1997 VACCINE (1 of 2) OSTEOPOROSIS 2012 SCREENING/MONITORING PNEUMONIA (PCV13/PPSV23) 2012 VACCINES (1 of 2 - PCV13) INFLUENZA VACCINE 06/05/2018 Results Not on filefrom Last 3 Months
--- OUTSIDE RECORDS SUMMARY | 2018-09-28 16:20 | XMS REPORT | Continuity of Care Document ---
Author Author [facility] Address Unknown Phone Unavailable Allergies Active Description Code Type Severity Reaction Onset Reported/Identified Relationship to Patient Clinical Status Yes SULFAMETHOXAZOLE-TRIMETHOPRIM SULFAMETHOXAZOLE-TRI SEVERE Yes SULFAMETHOXAZOLE-TRIMETHOPRIM SEVERE DERMATOLOGICAL - NILS Yes sulfa drug Drug Allergy 09/19/2011 Yes Sulfa (Sulfonamide Antibiotics) [id number] Drug Allergy Unknown N/A 2014 Medications Medication [...] SALINE W/KCL 40MEQ IV (SALINE IV BAG W/[id number]) MLS 01/13/2018 01/20/2018 CONTINUOUSEVERY 0 Hour LACTOBACILLUS BULGARIS TAB (LACTINEX BULGARIS) tab 01/13/2018 01/23/2018 QID&0800,1200,1700,2200 METOPROLOL TAB 25 MG (LOPRESSOR) MG 01/13/2018 01/13/2018 ONCE&1215 NORMAL SALINE W/KCL 40MEQ IV (SALINE IV BAG W/[id number]) MLS 01/13/2018 01/20/2018 CONTINUOUSEVERY 0 Hour NORMAL SALINE W/KCL 40MEQ IV (SALINE IV BAG W/[id number]) MLS 01/14/2018 01/21/2018 CONTINUOUSEVERY 0 Hour MESALAMINE [...] 07/28/2010 295.70 P SCHIZO AFFECTIVE 07/28/2010 ESPITIA RICKSHAW DRIVER, SAMARA BANGURAH 295.70 P SCHIZO AFFECTIVE 07/28/2010 ESPITIA RICKSHAW DRIVER, SAMARA BANGURAH 295.70 P SCHIZO AFFECTIVE 07/28/2010 295.70 P SCHIZO AFFECTIVE 07/28/2010 295.70 P SCHIZO AFFECTIVE 07/28/2010 ANDER GRANT DO 295.70 P SCHIZO AFFECTIVE 07/28/2010 ESPITIA RICKSHAW DRIVER, SAMARA BANGURAH 295.70 P SCHIZO AFFECTIVE 07/28/2010 ESPITIA RICKSHAW DRIVER, SAMARA BANGURAH 295.70 P SCHIZO AFFECTIVE 07/28/2010 ESPITIA RICKSHAW DRIVER, SAMARA BANGURAH 295.70 P SCHIZO AFFECTIVE 07/28/2010 ESPITIA RICKSHAW DRIVER, SAMARA BANUGRAH 295.70 P SCHIZO AFFECTIVE 07/28/2010 ESPITIA RICKSHAW DRIVER, SAMARA BANGURAH 295.70 P SCHIZO AFFECTIVE 07/28/2010 ESPITIA RICKSHAW DRIVER, SAMARA BANGURAH 295.70 P SCHIZO AFFECTIVE 07/28/2010 ESPITIA RICKSHAW DRIVER, SAMARA KEVIN 295.70 P SCHIZO AFFECTIVE 07/28/2010 [...] V65.42 COUNSELING - SMOKING CESSATION 11/06/2011 ESPITIA RICKSHAW DRIVER, SAMARA BROWN 465.9 UPPER RESPIRATORY INFECTION 11/06/2011 ESPITIA RICKSHAW DRIVER, SAMARA BROWN V65.42 COUNSELING - SMOKING CESSATION 11/06/2011 ESPITIA RICKSHAW DRIVER, SAMARA BROWN 465.9 UPPER RESPIRATORY INFECTION 11/06/2011 ESPITIA RICKSHAW DRIVER, SAMARA BROWN V65.42 COUNSELING - SMOKING CESSATION 11/06/2011 ESPITIA RICKSHAW DRIVER, SAMARA BROWN 465.9 UPPER RESPIRATORY INFECTION 11/06/2011 ESPITIA RICKSHAW DRIVER, SAMARA BROWN V65.42 COUNSELING - SMOKING CESSATION 11/06/2011 ESPITIA RICKSHAW DRIVER, SAMARA BROWN 465.9 UPPER RESPIRATORY INFECTION 11/06/2011 ESPITIA RICKSHAW DRIVER, SAMARA BROWN V65.42 COUNSELING - SMOKING CESSATION 11/06/2011 ESPITIA RICKSHAW DRIVER, SAMARA BROWN 465.9 UPPER RESPIRATORY INFECTION 11/06/2011 ESPITIA RICKSHAW DRIVER, SAMARA BROWN V65.42 COUNSELING - SMOKING CESSATION 11/06/2011 ESPITIA RICKSHAW DRIVER, SAMARA BROWN 465.9 UPPER RESPIRATORY INFECTION 11/06/2011 ESPITIA RICKSHAW DRIVER, SAMARA BROWN V65.42 COUNSELING - SMOKING CESSATION 11/06/2011 RONALD DYSON, MICHELLE M 465.9 UPPER RESPIRATORY INFECTION 11/06/2011 RONALD DYSON, MICHELLE M V65.42 COUNSELING - SMOKING CESSATION 11/10/2011 466.0 BRONCHITIS, ACUTE 11/10/2011 ESPITIA RICKSHAW DRIVER, SAMARA BROWN 466.0 BRONCHITIS, ACUTE 11/10/2011 ESPITIA RICKSHAW DRIVER, SAMARA BROWN 466.0 BRONCHITIS, ACUTE 11/10/2011 466.0 BRONCHITIS, ACUTE 11/10/2011 466.0 BRONCHITIS, ACUTE 11/10/2011 ANDER GRANT DO 466.0 BRONCHITIS, ACUTE 11/10/2011 ESPITIA RICKSHAW DRIVER, SAMARA BANGURAH 466.0 BRONCHITIS, ACUTE 11/10/2011 ESPITIA RICKSHAW DRIVER, SAMARA BANGURAH 466.0 BRONCHITIS, ACUTE 11/10/2011 ESPITIA RICKSHAW DRIVER, SAMARA BANGURAH 466.0 BRONCHITIS, ACUTE 11/10/2011 ESPITIA RICKSHAW DRIVER, SAMARA KEVIN 466.0 BRONCHITIS, ACUTE 11/10/2011 ESPITIA RICKSHAW DRIVER, SAMARA BANGURAH 466.0 BRONCHITIS, ACUTE 11/10/2011 ESPITIA RICKSHAW DRIVER, SAMARA KEVIN 466.0 BRONCHITIS, ACUTE 11/10/2011 ESPITIA RICKSHAW DRIVER, SAMARA KEVIN 466.0 BRONCHITIS, ACUTE 11/10/2011 MICHELLE COLEY M 466.0 BRONCHITIS, ACUTE 06/03/2013 ANDER GRANT DO 894.0 WOUND OPEN LOWER LIMB 06/03/2013 ESPITIA RICKSHAW DRIVER, SAMARA KEVIN 894.0 WOUND OPEN LOWER LIMB 06/03/2013 ESPITIA RICKSHAW DRIVER, SAMARA KEVIN 894.0 WOUND OPEN LOWER LIMB 06/03/2013 ESPITIA RICKSHAW DRIVER, SAMARA KEVIN 894.0 WOUND OPEN LOWER LIMB 06/03/2013 ESPITIA RICKSHAW DRIVER, SAMARA KEVIN 894.0 WOUND OPEN LOWER LIMB 06/03/2013 ESPITIA RICKSHAW DRIVER, SAMARA KEVIN 894.0 WOUND OPEN LOWER LIMB 06/03/2013 ESPITIA RICKSHAW DRIVER, SAMARA KEVIN 894.0 WOUND OPEN LOWER LIMB 06/03/2013 ESPITIA RICKSHAW DRIVER, SAMARA KEVIN 894.0 WOUND OPEN LOWER LIMB 06/03/2013 MICHELLE COLEY M 894.0 WOUND OPEN LOWER LIMB 09/15/2013 ESPITIA RICKSHAW DRIVER, SAMARA KEVIN 294.20 DEMENTIA UNSPECIFIED WITHOUT BEHAVIORAL DISTURBANCE 09/15/2013 ESPITIA RICKSHAW DRIVER, SAMARA KEVIN 294.20 DEMENTIA UNSPECIFIED WITHOUT BEHAVIORAL DISTURBANCE 09/15/2013 ESPITIA RICKSHAW DRIVER, SAMARA KEVIN 294.20 DEMENTIA UNSPECIFIED WITHOUT BEHAVIORAL DISTURBANCE 09/15/2013 ESPITIA RICKSHAW DRIVER, SAMARA KEVIN 294.20 DEMENTIA UNSPECIFIED WITHOUT BEHAVIORAL DISTURBANCE 09/15/2013 ESPITIA RICKSHAW DRIVER, SAMARA KEVIN 294.20 DEMENTIA UNSPECIFIED WITHOUT BEHAVIORAL DISTURBANCE 09/15/2013 ESPITIA RICKSHAW DRIVER, SAMARA KEVIN 294.20 DEMENTIA UNSPECIFIED WITHOUT BEHAVIORAL DISTURBANCE 09/15/2013 ESPITIA RICKSHAW DRIVER, SAMARA KEVIN 294.20 DEMENTIA UNSPECIFIED WITHOUT BEHAVIORAL [...] ESCALANTE, MUKUL E Ot 733.00 06/18/2015 SANGEETA ESCALNATE, MUKUL E Ot V54.26 06/18/2015 SANGEETA ESCALANTE, MUKUL E Ot V57.89 06/23/2015 ASNGEETA ESCALANTE, MUKUL E Ot 244.9 06/23/2015 SANGEETA [...] 06/26/2015 SANGEETA ESCALANTE, MUKUL E Ot 244.9 HYPOTHYROIDISM NOS 06/26/2015 SANGEETA ESCALANTE, MUKUL E Ot 273.8 DIS PLAS PROTEIN MET NEC 06/26/2015 SANGEETA ESCALANTE, UMKUL E Ot 285.9 ANEMIA NOS 06/26/2015 SANGEETA ESCALANTE, MUKUL E Ot 294.9 UNSPEC 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 06/26/2015 SANGEETA ESCALANTE MUKUL E Ot 401.9 HYPERTENSION NOS 06/26/2015 SANGEETA ESCALANTE, MUKUL E Ot 458.9 HYPOTENSION NOS 06/26/2015 SANGEETA ESCALANTE, MUKUL E Ot 530.81 ESOPHAGEAL REFLUX 06/26/2015 SANGEETA ESCALANTE, MUKUL E Ot 707.05 PRESSURE ULCER, BUTTOCK 06/26/2015 SANGEETA ESCALANTE, MUKUL E Ot 707.22 PRESSURE ULCER, STAGE II 06/26/2015 SANGEETA ESCALANTE, MUKUL E Ot 714.0 RHEUMATOID ARTHRITIS 06/26/2015 SANGEETA ESCALANTE, MUKUL E Ot 726.10 BURSAE TENDONS DIS SHLDER NOS 06/26/2015 SANGEETA ESCALANTE, MUKUL E Ot 729.1 MYALGIA AND MYOSITIS NOS 06/26/2015 SANGEETA ESCALANTE, MUKUL E Ot 733.00 OSTEOPOROSIS NOS 06/26/2015 SANGEETA ESCALANTE, MUKUL E Ot V15.82 HISTORY OF TOBACCO USE 06/26/2015 SANGEETA ESCALANTE, MUKUL E Ot V49.72 OTHER TOE(S) AMPUTATION STATUS 06/26/2015 SANGEETA ESCALANTE, MUKUL E Ot V54.26 [facility] PATHOLOGIC FX LOWER LE 06/26/2015 SANGEETA ESCALANTE, MUKUL E Ot V57.89 REHABILITATION PROC NEC 01/12/2017 Matt Ragland A 428.9 01/12/2017 Matt Ragland I50.9 HEART FAILURE, UNSPECIFIED 01/12/2017 Matt Ragland W 276.51 DEHYDRATION 01/12/2017 Matt Rgaland W E86.0 DEHYDRATION 01/12/2017 Matt Ragland W 558.9 OTHER AND UNSPECIFIED NONINFECTIOUS GASTROENTERITIS [...] W I10 ESSENTIAL (PRIMARY) HYPERTENSION 01/13/2017 Ragland, Marie-Miranda W I50.9 HEART FAILURE, UNSPECIFIED 01/13/2017 Ragland, Marie-Miranda W K21.9 GASTRO-ESOPHAGEAL REFLUX DISEASE WITHOUT ESOPHAGITIS 01/13/2017 Ragland, Marie-Miranda W R73.9 HYPERGLYCEMIA, UNSPECIFIED 04/16/2017 LION ESCALANTE, YURI Ot K52.839 MICROSCOPIC COLITIS, UNSPECIFIED 04/20/2017 YURI SEYMOUR MD Ot K52.839 MICROSCOPIC COLITIS, UNSPECIFIED 06/01/2017 AMPARO ESCALANTE, RENU Bañeulos Ot M25.551 PAIN IN RIGHT HIP 06/01/2017 [...] ELEVATED WHITE BLOOD CELL COUNT, UNSPECIFIED 07/24/2017 Beonit, Lorena W E86.0 DEHYDRATION 07/24/2017 Benoit, Lorena [...] W R11.2 NAUSEA WITH VOMITING, UNSPECIFIED 11/17/2017 Jean Wallace A 276.51 DEHYDRATION 11/17/2017 Jean Wallace 714.0 RHEUMATOID ARTHRITIS 11/17/2017 Jean Wallace W 787.01 NAUSEA WITH VOMITING 11/17/2017 Jean Wallace A E86.0 DEHYDRATION 11/17/2017 Jean Wallace M06.9 RHEUMATOID ARTHRITIS, UNSPECIFIED 11/17/2017 Jean Wallace R11.2 NAUSEA WITH VOMITING, UNSPECIFIED 01/14/2018 Benoit, [...] 01/14/2018 Benoit, Lorena W E87.6 HYPOKALEMIA 01/14/2018 Bneoit, Lorena W K52.9 NONINFECTIVE GASTROENTERITIS AND COLITIS, [...] SITE 01/17/2018 Benoit, Lorena W 244.9 01/17/2018 [facility], Lorena W 272.4 01/17/2018 [facility], Lorena A 276.51 01/17/2018 [facility], Lorena W 276.8 HYPOPOTASSEMIA 01/17/2018 [facility], Lorena W 296.20 01/17/2018 [facility], Lorena W 357.9 01/17/2018 [facility], Lorena W 401.0 01/17/2018 [facility], Lorena W 558.9 OTHER AND UNSPECIFIED NONINFECTIOUS GASTROENTERITIS AND COLITIS 01/17/2018 [facility], Lorena W 714.0 01/17/2018 [facility], Lorena W 719.45 01/17/2018 [facility], Lorena W 787.91 DIARRHEA 01/17/2018 [facility], Lorena W 791.9 01/17/2018 [facility], Lorena W A49.3 MYCOPLASMA INFECTION, UNSPECIFIED SITE 01/17/2018 [facility], Lorena W B96.0 01/17/2018 [facility], Lorena W E03.9 HYPOTHYROIDISM, UNSPECIFIED 01/17/2018 [facility], Lorena W E78.5 01/17/2018 [facility], Lorena A E86.0 DEHYDRATION 01/17/2018 [facility], Lorena W E87.6 HYPOKALEMIA 01/17/2018 [facility], Lorena W F32.9 01/17/2018 [facility], Lorena W G62.9 POLYNEUROPATHY, UNSPECIFIED 01/17/2018 [facility], Lorena W I10 01/17/2018 [facility], Lorena W K52.9 NONINFECTIVE GASTROENTERITIS AND COLITIS, UNSPECIFIED 01/17/2018 [facility], Lorena W M06.9 01/17/2018 [facility], Lorena W M25.551 PAIN IN RIGHT HIP 01/17/2018 [facility], Lorena W R19.7 DIARRHEA, UNSPECIFIED 01/17/2018 [facility], Lorena W R82.99 OTHER ABNORMAL FINDINGS IN URINE 02/04/2018 Bruce Stoner W 285.9 ANEMIA, UNSPECIFIED 02/04/2018 Bruce Stoner W 401.0 MALIGNANT ESSENTIAL HYPERTENSION 02/04/2018 Bruce Stoner 562.12 DIVERTICULOSIS OF COLON WITH HEMORRHAGE 02/04/2018 Bruce Stoner 787.7 ABNORMAL FECES 02/04/2018 Bruce Stoner A 787.91 DIARRHEA 02/04/2018 Bruce Stoner D64.9 ANEMIA, UNSPECIFIED 02/04/2018 Bruce Stoner I10 ESSENTIAL (PRIMARY) HYPERTENSION 02/04/2018 Bruce Stoner K57.30 DVRTCLOS OF LG INT W/O PERFORATION OR ABSCESS W/O BLEEDING 02/04/2018 Bruce Stoner R19.5 OTHER FECAL ABNORMALITIES 02/04/2018 Bruce Stoner R19.7 DIARRHEA, UNSPECIFIED 02/11/2018 Jac Vanessa 530.81 02/11/2018 Jac Vanessa 535.50 UNSPECIFIED GASTRITIS AND GASTRODUODENITIS, WITHOUT MENTION OF HEMORRHAGE 02/11/2018 Jac Vanessa 552.3 DIAPHRAGMATIC HERNIA WITH OBSTRUCTION 02/11/2018 Jac Vanessa 562.12 DIVERTICULOSIS OF COLON WITH HEMORRHAGE 02/11/2018 Jac Vanessa 787.7 02/11/2018 Jac Vanessa 787.91 DIARRHEA 02/11/2018 Jac Vanessa K21.9 GASTRO-ESOPHAGEAL REFLUX DISEASE WITHOUT ESOPHAGITIS 02/11/2018 Jac Vanessa K29.60 OTHER GASTRITIS WITHOUT BLEEDING 02/11/2018 Jac Vanessa K44.9 DIAPHRAGMATIC HERNIA WITHOUT OBSTRUCTION OR GANGRENE 02/11/2018 Jac Vanessa K57.30 DVRTCLOS OF LG INT W/O PERFORATION OR ABSCESS W/O BLEEDING 02/11/2018 Jac Vanessa R19.5 OTHER FECAL ABNORMALITIES 02/11/2018 Jac Vanessa R19.7 DIARRHEA, UNSPECIFIED 02/12/2018 GISELA HIGGINBOTHAM A 251.2 02/12/2018 GISELA HIGGINBOTHAM W 276.8 HYPOPOTASSEMIA 02/12/2018 GISELA HIGGINBOTHAM W 285.9 ANEMIA, UNSPECIFIED 02/12/2018 GISELA HIGGINBOTHAM W 401.0 MALIGNANT ESSENTIAL HYPERTENSION 02/12/2018 GISELA HIGGINBOTHAM W 428.9 HEART FAILURE, UNSPECIFIED 02/12/2018 BATTAGLER, GISELA W D64.9 ANEMIA, UNSPECIFIED 02/12/2018 GISELA HIGGINBOTHAM A E16.2 HYPOGLYCEMIA, UNSPECIFIED 02/12/2018 GISELA HIGGINBOTHAM W E87.6 HYPOKALEMIA 02/12/2018 GISELA HIGGINBOTHAM W I10 ESSENTIAL (PRIMARY) HYPERTENSION 02/12/2018 GISELA HIGGINBOTHAM W I50.9 HEART FAILURE, UNSPECIFIED 04/10/2018 Luis Daniel Madden W 357.9 UNSPECIFIED INFLAMMATORY AND TOXIC NEUROPATHIES 04/10/2018 Luis Daniel Madden W 401.0 MALIGNANT ESSENTIAL HYPERTENSION 04/10/2018 Luis Daniel Madden W 428.9 HEART FAILURE, UNSPECIFIED 04/10/2018 Judy Maddenj W 707.05 PRESSURE ULCER, BUTTOCK 04/10/2018 Luis Daniel Madden A 707.15 04/10/2018 Luis Daniel Madden W G62.9 POLYNEUROPATHY, UNSPECIFIED 04/10/2018 Luis Daniel Madden W I10 ESSENTIAL (PRIMARY) HYPERTENSION 04/10/2018 Luis Daniel Madden W I50.9 HEART FAILURE, UNSPECIFIED 04/10/2018 Luis Daniel Madden W L89.322 PRESSURE ULCER OF LEFT BUTTOCK, STAGE 2 04/10/2018 Judy Maddenolamide Munoz L97.511 NON-PRS CHRONIC ULCER OTH PRT R FOOT LIMITED TO BRKDWN SKIN 04/10/2018 Luis Daniel Madden Dez V58.30 ENCOUNTER FOR CHANGE OR REMOVAL OF NONSURGICAL WOUND DRESSING 04/10/2018 Gabrielkat Luis Daniel W Z48.00 ENCOUNTER FOR CHANGE OR REMOVAL OF NONSURG WOUND DRESSING 08/01/2018 Jean Wallace 719.41 PAIN IN JOINT INVOLVING SHOULDER REGION 08/01/2018 Jean Wallace 780.8 GENERALIZED HYPERHIDROSIS 08/01/2018 Jean Wallace 785.0 TACHYCARDIA, UNSPECIFIED 08/01/2018 Jean Wallace A 786.50 UNSPECIFIED CHEST PAIN 08/01/2018 Jean Wallace 787.02 NAUSEA ALONE 08/01/2018 Jean Wallace M25.512 PAIN IN LEFT SHOULDER 08/01/2018 Jean Wallace R00.0 TACHYCARDIA, UNSPECIFIED 08/01/2018 Jean Wallace A R07.9 CHEST PAIN, UNSPECIFIED 08/01/2018 Jean Wallace W R11.0 NAUSEA 08/01/2018 Jean Wallace W R61 GENERALIZED HYPERHIDROSIS 08/04/2018 Jacqui Lewis W 338.2 CHRONIC PAIN 08/04/2018 Jacqui Lewis A 724.5 BACKACHE, UNSPECIFIED 08/04/2018 Jacqui Lewis W 787.02 NAUSEA ALONE 08/04/2018 Jacqui Lewis W G89.29 OTHER CHRONIC PAIN 08/04/2018 Jacqui Lewis A M54.9 DORSALGIA, UNSPECIFIED 08/04/2018 Jacqui Lewis W R11.0 NAUSEA 08/05/2018 W 715.11 OSTEOARTHROSIS, LOCALIZED, PRIMARY, INVOLVING SHOULDER REGION 08/05/2018 W M19.012 PRIMARY OSTEOARTHRITIS, LEFT SHOULDER 08/16/2018 Gianni Gibson A 844.9 SPRAIN OF UNSPECIFIED SITE OF KNEE AND LEG 08/16/2018 Gianni Gibson W 922.31 CONTUSION OF BACK 08/16/2018 Gianni Gibson S30.0XXA CONTUSION OF LOWER BACK AND PELVIS, INITIAL ENCOUNTER 08/16/2018 Gianni Gibson A S83.91XA SPRAIN OF UNSPECIFIED SITE OF RIGHT KNEE, INITIAL ENCOUNTER 08/29/2018 LION ESCALANTE, ORALIAALEXIS Ot K52.839 MICROSCOPIC COLITIS, UNSPECIFIED 08/29/2018 AMPARO ESCALANTE, RENU Bañuelos Ot M25.551 PAIN IN RIGHT HIP 08/29/2018 AMPARO ESCALANTE, RENU B Ot M41.26 OTHER IDIOPATHIC SCOLIOSIS, LUMBAR REGIO 08/29/2018 AMPARO ESCALANTE, RENU B Ot M51.36 OTHER INTERVERTEBRAL DISC DEGENERATION, 08/29/2018 GREG ESCALANTE, KIRSTIN Villeda Ot E03.9 HYPOTHYROIDISM, UNSPECIFIED 08/29/2018 KIRSTIN GARZA MD Ot K21.9 GASTRO-ESOPHAGEAL REFLUX DISEASE WITHOUT 08/29/2018 GREG ESCALANTE, KIRSTIN Villeda Ot L03.115 CELLULITIS OF RIGHT LOWER LIMB 08/29/2018 KIRSTIN GARZA MD Ot M81.0 AGE-RELATED OSTEOPOROSIS W/O CURRENT PAT 08/29/2018 KIRSTIN GARZA MD Ot Z87.01 PERSONAL HISTORY OF PNEUMONIA (RECURRENT 08/29/2018 GREG ESCALANTE, KIRSTIN Villeda Ot Z88.2 ALLERGY STATUS TO SULFONAMIDES STATUS Procedures Code Description [place] [address] PSYCH IND W/MED CK 20 11/13/2011 13692 PSYCH IND W/MED CK 20 11/18/2012 51327 PSYCH IND W/MED CK 20 01/24/2013 Results [...] Urine-pH 5.5 5-8.5 Urine-Protein 2+ Negative Urine-Specific [place] >=1.030 1.000-1.030 Urine-WBC 2-5/HPF Urobilinogen 0.2 E.U./dL [...] 1.4 mg/dL 0.2-1.2 TP 6.2 g/dL 6.0-8.3 BMP - 07/23/17 12:20 Anion Gap 21 6-14 BUN 15 mg/dL 5-25 Calcium 10.0 mg/dL 8.3-10.4 Chloride 99 mmol/L 95-114 CO2 30 mEq/L 22-33 Creat 1.02 mg/dL 0.50-1.50 eGFR 54 mL/min/1.73m2 >59 Glucose 117 mg/dL 70-110 Osmo 305 280-295 Potassium 3.2 mmol/L 3.5-5.3 Sodium 147 mmol/L 134-148 Sed Rate - 07/23/17 12:20 Sed Rate 2 mm/hr 9-15 BMP - 07/24/17 07:17 Anion Gap 14 6-14 [...] 5-8.5 Urine-Protein Negative Negative Urine-RBC Rare/HPF Urine-Specific [place] 1.020 1.000-1.030 Urine-WBC 2-5/HPF Urobilinogen 1.0 E.U./dL [...] 5-8.5 Urine-Protein Trace Negative Urine-RBC Rare/HPF Urine-Specific [place] >=1.030 1.000-1.030 Urine-WBC Rare/HPF Urobilinogen 0.2 0.2-1.0 [...] 5-8.5 Urine-Protein 2+ Negative Urine-RBC 0-2/HPF Urine-Specific [place] >=1.030 1.000-1.030 Urine-WBC 2-5/HPF Urobilinogen 1.0 0.2-1.0 [...] 1.2 mg/dL 0.2-1.2 TP 5.0 g/dL 6.0-8.3 [facility] 01/14/18 06:55 Anion Gap 13 6-14 BUN 6 mg/dL 5-25 Calcium 8.2 mg/dL 8.3-10.4 Chloride 115 mmol/L 95-114 CO2 19 mEq/L 22-33 Creat 0.76 mg/dL 0.50-1.50 eGFR 75 mL/min/1.73m2 >59 Glucose 97 mg/dL 70-110 Osmo 293 280-295 Potassium 3.6 mmol/L 3.5-5.3 Sodium 143 mmol/L 134-148 [facility] 01/15/18 07:00 Anion Gap 15 6-14 BUN 3 mg/dL 5-25 Calcium 9.2 mg/dL 8.3-10.4 Chloride 115 mmol/L 95-114 CO2 21 mEq/L 22-33 Creat 0.73 mg/dL 0.50-1.50 eGFR 79 mL/min/1.73m2 >59 Glucose 95 mg/dL 70-110 Osmo 298 280-295 Potassium 4.5 mmol/L 3.5-5.3 Sodium 146 mmol/L 134-148 [facility] 01/17/18 08:51 Anion Gap 16 6-14 BUN 4 mg/dL 5-25 Calcium 9.2 mg/dL 8.3-10.4 Chloride 105 mmol/L 95-114 CO2 26 mEq/L 22-33 Creat 0.78 mg/dL 0.50-1.50 eGFR 73 mL/min/1.73m2 >59 Glucose 102 mg/dL 70-110 Osmo 292 280-295 Potassium 3.5 mmol/L 3.5-5.3 Sodium 143 mmol/L 134-148 [facility] 02/03/18 01:20 Anion Gap 13 6-14 BUN 10 mg/dL 5-25 Calcium 8.9 mg/dL 8.3-10.4 Chloride 110 mmol/L 95-114 CO2 23 mEq/L 22-33 Creat 0.91 mg/dL 0.50-1.50 eGFR 61 mL/min/1.73m2 >59 Glucose 92 mg/dL 70-110 Osmo 292 280-295 Potassium 3.9 mmol/L 3.5-5.3 Sodium 142 mmol/L 134-148 [facility]OBT Occult Blood - 02/03/18 01:59 IFOBT Occult Blood POSITIVE Negative EKG - 02/03/18 02:20 EKG Complete [facility] - 02/03/18 06:35 Anion Gap 15 6-14 BUN 9 mg/dL 5-25 Calcium 8.9 mg/dL 8.3-10.4 Chloride 112 mmol/L 95-114 CO2 21 mEq/L 22-33 Creat 0.83 mg/dL 0.50-1.50 eGFR 68 mL/min/1.73m2 >59 Glucose 78 mg/dL 70-110 Osmo 295 280-295 Potassium 3.9 mmol/L 3.5-5.3 Sodium 144 mmol/L 134-148 HH - 02/03/18 17:50 Hct 34.7 % 36.0-46.0 Hgb 11.2 g/dL 13.0-15.0 CBC with Auto Diff - 02/04/18 07:00 Baso% 0.00 % 0.00-2.50 Eos 0.0 K/uL 0.0-0.7 Eos% 0.9 % 0.0-7.0 Hct 35.1 % 36.0-46.0 Hgb 11.4 g/dL 13.0-15.0 Lym 1.18 K/uL 0.60-3.40 Lym% 35.6 % 10.0-50.0 MCH 30.6 pg 27.0-31.0 MCHC 32.5 g/dL 32.0-36.0 MCV 94.4 fL 80.0-97.0 [place]% 10.0 % 0.0-12.0 MPV 10.0 fL 7.4-10.0 Deanna% 53.5 % 37.0-80.0 Plt 175 K/uL 150-400 RBC 3.72 M/uL 3.60-5.00 RDW 14.0 % 11.6-14.8 WBC 3.31 K/uL 5.00-10.00 Deanna 1.77 K/uL 2.00-6.90 [place] 0.3 K/uL 0.0-0.9 Baso 0.0 K/uL 0.0-0.2 Surgical Pathology - 02/11/18 09:35 Surg Path Sent to [facility] Comprehensive Metabolic Panel - 02/12/18 05:21 Albumin [...] 5-8.5 Urine-Protein Negative Negative Urine-RBC 0-2/HPF Urine-Specific [place] <=1.005 1.000-1.030 Urine-WBC Negative Urobilinogen 0.2 E.U./dL 0.2-1.0 CBC with Auto Diff - 02/22/18 11:00 Baso% 0.20 % 0.00-2.50 Eos 0.1 K/uL 0.0-0.7 Eos% 1.1 % 0.0-7.0 Hct 34.6 % 36.0-46.0 Hgb 11.1 g/dL 13.0-15.0 Lym 1.70 K/uL 0.60-3.40 Lym% 36.3 % 10.0-50.0 MCH 29.9 pg 27.0-31.0 MCHC 32.1 g/dL 32.0-36.0 MCV 93.3 fL 80.0-97.0 [place]% 15.2 % 0.0-12.0 MPV 11.0 fL 7.4-10.0 Deanna% 47.2 % 37.0-80.0 Plt 252 K/uL 150-400 RBC 3.71 M/uL 3.60-5.00 RDW 13.5 % 11.6-14.8 WBC 4.68 K/uL 5.00-10.00 Deanna 2.21 K/uL 2.00-6.90 [place] 0.7 K/uL 0.0-0.9 Baso 0.0 K/uL 0.0-0.2 [...] 1.0 mg/dL 0.2-1.2 TP 6.6 g/dL 6.0-8.3 Complete blood count (CBC) with automated white blood cell (WBC) differential - 08/29/18 20:10 Blood leukocytes automated count (number/volume) 4.3 10*3/uL 4.3-11.0 Blood erythrocytes automated count (number/volume) 3.76 10*6/uL 4.35-5.85 Venous blood hemoglobin measurement (mass/volume) 10.7 g/dL 11.5-16.0 Blood hematocrit (volume fraction) 34 % 35-52 Automated erythrocyte mean corpuscular volume 90 [foz_us] 80-99 Automated erythrocyte mean corpuscular hemoglobin (mass per erythrocyte) 29 pg 25-34 Automated erythrocyte mean corpuscular hemoglobin concentration measurement ( mass/volume) 32 g/dL 32-36 Automated erythrocyte distribution width ratio 15.4 % 10.0-14.5 Automated blood platelet count (count/volume) 219 10*3/uL 130-400 Automated blood platelet mean volume measurement 9.1 [foz_us] 7.4-10.4 Automated blood neutrophils/100 leukocytes 52 % 42-75 Automated blood lymphocytes/100 leukocytes 35 % 12-44 Blood monocytes/100 leukocytes 11 % 0-12 Automated blood eosinophils/100 leukocytes 2 % 0-10 Automated blood basophils/100 leukocytes 0 % 0-10 Blood neutrophils automated count (number/volume) 2.2 10*3 1.8-7.8 Blood lymphocytes automated count (number/volume) 1.5 10*3 1.0-4.0 Blood monocytes automated count (number/volume) 0.5 10*3 0.0-1.0 Automated eosinophil count 0.1 10*3/uL 0.0-0.3 Automated blood basophil count (count/volume) 0.0 10*3/uL 0.0-0.1 Blood lactic acid measurement (moles/volume) - 08/29/18 20:10 Blood lactic acid measurement (moles/volume) 0.80 mmol/L 0.50-2.00 Comprehensive metabolic panel - 08/29/18 20:10 Serum or plasma sodium measurement (moles/volume) 141 mmol/L 135-145 Serum or plasma potassium measurement (moles/volume) 3.4 mmol/L 3.6-5.0 Serum or plasma chloride measurement (moles/volume) 104 mmol/L 98-107 Carbon dioxide 26 mmol/L 21-32 Serum or plasma anion gap determination (moles/volume) 11 mmol/L 5-14 Serum or plasma urea nitrogen measurement (mass/volume) 9 mg/dL 7-18 Serum or plasma creatinine measurement (mass/volume) 0.89 mg/dL 0.60-1.30 Serum or plasma urea nitrogen/creatinine mass ratio 10 NRG Serum or plasma creatinine measurement with calculation of estimated glomerular filtration rate > NRG Serum or plasma glucose measurement (mass/volume) 95 mg/dL 70-105 Serum or plasma calcium measurement (mass/volume) 9.1 mg/dL 8.5-10.1 Serum or plasma total bilirubin measurement (mass/volume) 0.5 mg/dL 0.1-1.0 Serum or plasma alkaline phosphatase measurement (enzymatic activity/volume) 171 U/L 40-136 Serum or plasma aspartate aminotransferase measurement (enzymatic activity/ volume) 13 U/L 5-34 Serum or plasma alanine aminotransferase measurement (enzymatic activity/volume ) 9 U/L 0-55 Serum or plasma protein measurement (mass/volume) 5.2 g/dL 6.4-8.2 Serum or plasma albumin measurement (mass/volume) 3.5 g/dL 3.2-4.5 CALCIUM CORRECTED 9.5 mg/dL 8.5-10.1 Serum or plasma C reactive protein measurement (mass/volume) - 08/29/18 20:10 Serum or plasma C reactive protein measurement (mass/volume) 0.29 mg /dL 0.00-0.50 Erythrocyte sedimentation rate by westergren method - 08/29/18 20:10 Erythrocyte sedimentation rate by westergren method 24 mm 0-30 Bacterial blood culture - 08/29/18 20:10 Bacterial blood culture NG NRG Bacterial blood culture - 08/29/18 21:00 Bacterial blood culture NG NRG Encounters ACCT No. Visit Date/Time Discharge Status Pt. Type Provider Facility Loc./Unit Complaint [id number] 09/30/2014 16:41:00 09/30/2014 23:59:59 CLS Outpatient MICHELLE COLEY [id number] 07/15/2014 13:28:00 07/15/2014 23:59:59 CLS Outpatient NUPUR ALBERT SAMARA BROWN [id number] 05/06/2014 09:25:00 05/06/2014 23:59:59 CLS Outpatient ESPITIA RICKSHAW DRIVERSAMARA [id number] 04/06/2014 09:02:00 04/06/2014 23:59:59 CLS Outpatient ESPITIA RICKSHAW DRIVERSAMARA [id number] 02/24/2014 12:55:00 02/24/2014 23:59:59 CLS Outpatient ESPITIA RICKSHAW DRIVERSAMARA [id number] 02/04/2014 13:24:00 02/04/2014 23:59:59 CLS Outpatient ESPITIA RICKSHAW DRIVERSAMARA [id number] 11/19/2013 10:21:00 11/19/2013 23:59:59 CLS Outpatient ESPITIA RICKSHAW DRIVERSAMARA [id number] 09/15/2013 09:11:00 09/15/2013 23:59:59 CLS Outpatient ESPITIA RICKSHAW DRIVERSAMARA [id number] 06/03/2013 13:58:00 06/03/2013 23:59:59 CLS Outpatient ANDER GRANT DO [id number] 11/18/2012 13:44:00 11/18/2012 23:59:59 CLS Outpatient ESPITIA RICKSHAW DRIVERSAMAAR [id number] 10/17/2012 14:16:00 10/17/2012 23:59:59 CLS Outpatient ESPITIA RICKSHAW DRIV[facility]AMARA [id number] 11/10/2011 14:31:00 11/10/2011 23:59:59 CLS Outpatient [id number] 04/10/2013 11:20:00 Document Registration [id number] 01/24/2013 13:15:00 Document Registration [id number] 08/16/2018 08:57:00 08/16/2018 10:23:00 DIS Outpatient Paige [facility] ER [id number] 08/04/2018 00:35:00 08/04/2018 01:58:00 DIS Outpatient Jacqui Lewis [facility] ER [id number] 08/01/2018 14:00:00 08/01/2018 15:05:00 DIS Outpatient [facility] [place] [facility] [id number] 07/17/2018 09:16:00 07/17/2018 23:59:00 DIS Outpatient NINO DOMINGUEZ [id number] 01/18/2018 00:00:00 04/10/2018 07:48:00 DIS Outpatient Luis Daniel Maddne [id number] 02/22/2018 12:04:00 02/22/2018 23:59:00 DIS Outpatient Luis Daniel Madden [id number] 02/12/2018 05:09:00 02/12/2018 08:24:00 DIS Outpatient NEFTALY [facility] ER [id number] 02/11/2018 06:58:00 02/11/2018 09:30:00 DIS Outpatient Jac Vanessa [id number] 02/03/2018 00:28:00 02/04/2018 14:40:00 DIS Outpatient [facility] MED-SURG [id number] 01/14/2018 08:15:00 01/17/2018 14:00:00 DIS Inpatient [facility] MED-SURG [id number] 11/17/2017 02:01:00 11/17/2017 06:53:00 [facility] [id number] 07/23/2017 11:33:00 07/25/2017 14:15:00 DIS Outpatient [facility] MED-SURG [id number] 01/12/2017 14:08:00 01/13/2017 13:20:00 DIS Outpatient Matt Ragland [id number] 07/19/2018 10:31:21 Document Registration [id number] 01/12/2017 14:50:40 Document Registration [id number] 01/19/2018 04:11:00 Document Registration [id number] 08/29/2018 19:24:00 08/29/2018 22:02:00 DIS Emergency GREG ESCALANTE, KIRSTIN [place] [facility] ER R LOWER LEG POSS CELLULITIS [id number] 05/09/2017 12:18:00 05/09/2017 23:59:59 CLS Outpatient RENU CHRISTENSEN MD [facility] RAD 4+ [id number]], [id number] 03/19/2017 09:00:00 03/19/2017 23:59:59 CLS Outpatient YURI SEYMOUR MD [facility] RAD DIARRHEA [id number] 06/10/2015 16:09:00 06/26/2015 11:30:00 DIS Inpatient RUTHERFORD MD, MUKUL [facility] IRF LRFT TIB FIB FRX
[2018-09-28] MEDS ORDERED: LACTATED RINGERS 1,000 ML IV SCH (17:45)
--- NOTE | 2018-09-28 17:48 | ED EENT ---
History of Present Illness General Chief Complaint: Oral/Throat Problems Stated Complaint: SORE THROAT/FEVER Nursing Triage Note: PT PRESENTS TO ED WITH COMPLAINTS OF SORE THROAT SINCE YESTERDAY AND VOMITING STARTING 2 DAYS AGO. PT REPORTS L SHOULDER REPLACEMENT ON SUNDAY. Source: patient Exam Limitations: no limitations History of Present Illness Date Seen by Provider: Sep 28, 2018 Time Seen by Provider: 17:47 Initial Comments To ER with reports of a sore throat since yesterday associated with vomiting 2 days. She did have an outpatient shoulder replacement surgery on Sunday and has her left arm in a sling. Timing/Duration: abrupt Severity: moderate Location: throat Allergies and Home Medications Allergies Coded Allergies: Sulfa (Sulfonamide Antibiotics) (Verified Allergy, Unknown, 06/10/15) Home Medications Amitriptyline HCl 25 Mg Tablet, 25 MG PO HS, (Reported) Aripiprazole 15 Mg Tablet, 15 MG PO DAILY, (Reported) Cephalexin 500 Mg Tablet, 500 MG PO QID Prescribed by: KIRSTIN GARZA on 08/29/182123 Cholecalciferol (Vitamin D3) 1,000 Unit Tablet, 1,000 UNIT PO DAILY, (Reported) Cyclobenzaprine HCl 10 Mg Tablet, 10 MG PO BID, (Reported) Gabapentin 300 Mg Capsule, 300 MG PO BID, (Reported) Hydrocodone Bit/Acetaminophen 1 Each Tablet, 1 EACH PO Q8H PRN for PAIN, ( Reported) Levothyroxine Sodium 75 Mcg Tablet, 75 MCG PO DAILY, (Reported) Memantine HCl 5 Mg Tablet, 5 MG PO BID 5 MG PO Q AM and HS. Prescribed by: BLU QUINONES on 06/10/15 1523 Methotrexate Tablet 2.5 Mg Tablet, 15 MG PO Sunday, (Reported) Metoprolol Tartrate 50 Mg Tablet, 50 MG PO DAILY, (Reported) Pantoprazole Sodium 40 Mg Tablet.dr, 40 MG PO DAILY, (Reported) Pramipexole 0.125 Mg Tablet, 0.125 MG PO HS, (Reported) Sumatriptan Succinate 100 Mg Tablet, 0.5 TAB PO PRN PRN for HEADACHE May repeat in 2 hours; Max 200 MG/24 hours. Prescribed by: BLU QUINONES on 06/10/15 1555 Tramadol HCl 50 Mg Tablet, 50 MG PO BID, (Reported) Vitamin E 400 Unit Capsule, 400 UNIT PO DAILY, (Reported) Vortioxetine Hydrobromide 5 Mg Tablet, 5 MG PO DAILY, (Reported) [Biotin] , 10,000 MCG PO Evening Prescribed by: BLU QUINONES on 06/12/15 153 [Folic Acid 1MG] , 2 MG PO DAILY, (Reported) [Iron 65MG] , 65 MG PO Evening Prescribed by: BLU QUINONES on 06/12/15 1530 [Nitrostat] , 0.4 MG SL UD Q5 min X3 PRN. Prescribed by: BLU QUINONES on 06/10/15 1555 [Potassium] , 20 MEQ PO BID, (Reported) Patient Home Medication List Home Medication List Reviewed: Yes Review of Systems Review of Systems Constitutional: see HPI Eyes: No Symptoms Reported Ears: No Symptoms Reported Nose: no symptoms reported Mouth: see HPI Throat: see HPI Respiratory: no symptoms reported Cardiovascular: no symptoms reported Musculoskeletal: no symptoms reported Past Jquuhqg-Fqcyiv-Ojoosp Hx Patient Social History Alcohol Use: Denies Use Recreational Drug Use: No Smoking Status: Former Smoker Former Smoker, Quit: Sep 27, 1997 2nd Hand Smoke Exposure: No Recent Foreign Travel: No Contact w/Someone Who Travel: No Recent Infectious Disease Expo: No Recent Hopitalizations: Yes Physical Abuse: No Sexual Abuse: No Mistreated: No Fear: No Immunizations Up To Date Date of Pneumonia Vaccine: Nov 05, 2012 Seasonal Allergies Seasonal Allergies: Yes Past Medical History Surgeries: Yes (Bilat cataract removal; Hiatal hernia repair; Prolapsed rectum repair;) Gallbladder, Hysterectomy, Tonsillectomy Respiratory: Yes Pneumonia Cardiac: Yes Hypertension 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: No Genitourinary: No Gastrointestinal: Yes (Ulcerative colitis) Gastroesophageal Reflux Musculoskeletal: No (OA) Osteoporosis, Arthritis, Fibromyalgia, Rheumatoid Arthritis Endocrine: Yes Hypothyroidsim Glaucoma Cancer: No Psychosocial: Yes Integumentary: No Blood Disorders: No Physical Exam Vital Signs Vital Signs - First Documented 09/28/18 17:21 Temp 98.6 Pulse 122 Resp 20 B/P (MAP) 151/90 (110) Pulse Ox 96 Height, Weight, BMI Height: 5'2.00" Weight: 140lbs. 11.2oz. 63.446039zk; 26.57 BMI Method:Stated General Appearance: WD/WN, no apparent distress Eyes: bilateral eye normal inspection, bilateral eye PERRL, bilateral eye EOMI Ears: bilateral ear auricle normal, bilateral ear canal normal, bilateral ear TM normal Neck: non-tender, full range of motion, supple Cardiovascular: regular rate, rhythm, no murmur Respiratory: normal breath sounds, no respiratory distress, no accessory muscle use Gastrointestinal: non tender, soft Neurologic/Psychiatric: alert, normal mood/affect, oriented x 3 Skin: normal color, warm/dry Progress/Results/Core Measures Results/Orders Lab Results Laboratory Tests Test 09/28/18 18:52 09/28/18 18:59 Range/Units Group A Streptococcus Screen NEGATIVE NEGATIVE White Blood Count 11.9 H 4.3-11.0 10^3/uL Red Blood Count 4.03 L 4.35-5.85 10^6/uL Hemoglobin 11.4 L 11.5-16.0 G/DL Hematocrit 36 35-52 % Mean Corpuscular Volume 88 80-99 FL Mean Corpuscular Hemoglobin 28 25-34 PG Mean Corpuscular Hemoglobin Concent 32 32-36 G/DL Red Cell Distribution Width 14.9 H 10.0-14.5 % Platelet Count 280 130-400 10^3/uL Mean Platelet Volume 9.4 7.4-10.4 FL Neutrophils (%) (Auto) 76 H 42-75 % Lymphocytes (%) (Auto) 14 12-44 % Monocytes (%) (Auto) 9 0-12 % Eosinophils (%) (Auto) 0 0-10 % Basophils (%) (Auto) 0 0-10 % Neutrophils # (Auto) 9.1 H 1.8-7.8 X 10^3 Lymphocytes # (Auto) 1.7 1.0-4.0 X 10^3 Monocytes # (Auto) 1.1 H 0.0-1.0 X 10^3 Eosinophils # (Auto) 0.0 0.0-0.3 10^3/uL Basophils # (Auto) 0.0 0.0-0.1 10^3/uL Sodium Level 142 135-145 MMOL/L Potassium Level 3.3 L 3.6-5.0 MMOL/L Chloride Level 105 98-107 MMOL/L Carbon Dioxide Level 22 21-32 MMOL/L Anion Gap 15 H 5-14 MMOL/L Blood Urea Nitrogen 9 7-18 MG/DL Creatinine 0.73 0.60-1.30 MG/DL Estimat Glomerular Filtration Rate > 60 BUN/Creatinine Ratio 12 Glucose Level 100 70-105 MG/DL Calcium Level 9.8 8.5-10.1 MG/DL Corrected Calcium 10.0 8.5-10.1 MG/DL Total Bilirubin 1.3 H 0.1-1.0 MG/DL Aspartate Amino Transf (AST/SGOT) 10 5-34 U/L Alanine Aminotransferase (ALT/SGPT) 7 0-55 U/L Alkaline Phosphatase 138 H 40-136 U/L Total Protein 7.0 6.4-8.2 GM/DL Albumin 3.8 3.2-4.5 GM/DL Monoscreen NEGATIVE NEGATIVE My Orders Orders - DEONNA MOBLEY APRN Rapid Strep A Screen (09/28/18 17:23) Cbc With Automated Diff (09/28/18 17:34) Comprehensive Metabolic Panel (09/28/18 17:34) Iv Heplock-Insert (Order) (09/28/18 17:34) Monotest (09/28/18 17:34) Lactated Ringers (Lr 1000 Ml Iv Solution (09/28/18 17:45) Iv Heplock-Insert (Order) (09/28/18 17:34) Ondansetron Injection (Zofran Injectio (09/28/18 19:45) Vital Signs/I&O 09/28/18 17:21 Temp 98.6 Pulse 122 Resp 20 B/P (MAP) 151/90 (110) Pulse Ox 96 Blood Pressure Mean: 110 Departure Communication (Admissions) Her sore throat is likely due to whatever device was used for airway control during her left shoulder surgery such as LMA or endotracheal tube.. Impression Primary Impression: Pharyngitis Qualified Codes: J02.9 - Acute pharyngitis, unspecified Disposition: HOME, SELF-CARE Condition: Stable Departure-Patient Inst. Decision time for Depature: 19:41 Referrals: MAC HANDY MD (PCP/Family) Primary Care Physician Patient Instructions: Sore Throat in Adults Add. Discharge Instructions: 1. pain medication as directed 2. Follow up with your doctor next [id number] All discharge instructions reviewed with patient and/or family. Voiced understanding. Scripts Cephalexin (Keflex) 500 Mg Capsule 500 MG PO TID, #15 CAP Prov: DEONNA MOBLEY APRN 09/28/18 DEONNA MOBLEY APRN Sep 28, 2018 17:48
[2018-09-28 19:04] LABS: BASOPHILS % (AUTO) 0 % (0-10); EOSINOPHILS % (AUTO) 0 % (0-10); HEMATOCRIT 36 % (35-52); HEMOGLOBIN 11.4 G/DL (11.5-16.0); LYMPHOCYTES # (AUTO) 1.7 X 10^3 (1.0-4.0); LYMPHOCYTES % (AUTO) 14 % (12-44); MEAN CORPUSCULAR HEMOGLOBIN 28 PG (25-34); MEAN CORPUSCULAR HGB CONC 32 G/DL (32-36); MEAN CORPUSCULAR VOLUME 88 FL (80-99); MEAN PLATELET VOLUME 9.4 FL (7.4-10.4); MONOCYTES # (AUTO) 1.1 X 10^3 (0.0-1.0); MONOCYTES % (AUTO) 9 % (0-12); NEUTROPHILS # (AUTO) 9.1 X 10^3 (1.8-7.8); NEUTROPHILS % (AUTO) 76 % (42-75); PLATELET COUNT 280 10^3/uL (130-400); RED BLOOD COUNT 4.03 10^6/uL (4.35-5.85); RED CELL DISTRIBUTION WIDTH 14.9 % (10.0-14.5); WHITE BLOOD COUNT 11.9 10^3/uL (4.3-11.0)
[2018-09-28 19:21] LABS: ALANINE AMINOTRANSFERASE 7 U/L (0-55); ALBUMIN 3.8 GM/DL (3.2-4.5); ALKALINE PHOSPHATASE 138 U/L (40-136); BILIRUBIN,TOTAL 1.3 MG/DL (0.1-1.0); BUN/CREATININE RATIO 12; CALCIUM 9.8 MG/DL (8.5-10.1); CARBON DIOXIDE 22 MMOL/L (21-32); CHLORIDE 105 MMOL/L (98-107); CREATININE SERUM 0.73 MG/DL (0.60-1.30); GFR ESTIMATED > 60; GLUCOSE 100 MG/DL (70-105); POTASSIUM 3.3 MMOL/L (3.6-5.0); SODIUM 142 MMOL/L (135-145)
[2018-09-28] MEDS ORDERED: ONDANSETRON 4 MG/2 ML (SDV) Z0FRAN IVP ONE (19:45)
[2018-09-28] MEDS ORDERED: CEPH-507 PO (19:50)
[2018-09-28 20:06] VITALS: BP 144/86
== END 2018-09-28 20:06 | disposition home or self-care (01) ==
LOC: EDUNIT# 16:13 → ER 16:14
DX: J02.9 Acute pharyngitis, unspecified (principal); I10 Essential (primary) hypertension; K21.9 Gastro-esophageal reflux disease without esophagitis; M81.0 Age-related osteoporosis without current pathological fracture; M06.9 Rheumatoid arthritis, unspecified; E03.9 Hypothyroidism, unspecified; Z87.19 Personal history of other diseases of the digestive system; Z88.2 Allergy status to sulfonamides; Z96.612 Presence of left artificial shoulder joint; Z87.891 Personal history of nicotine dependence; Z98.890 Other specified postprocedural states; Z90.710 Acquired absence of both cervix and uterus; Z90.89 Acquired absence of other organs; Z87.01 Personal history of pneumonia (recurrent)
CPT/HCPCS: 36415; 80053; 85025; 86308; 87430; 96361; 96374

== ENCOUNTER → 2019-01-10 | Outpatient (CLI) | payer MEDICARE, MEDICAID ==
[~2019-01-10] MED LIST changes: +CEPH-507 PO
--- NOTE | 2019-01-10 12:11 | Diagnostic Imaging Report ---
CLINICAL INDICATION: Patient with cough for one week and acute bronchitis. Patient is former heavy cigarette smoker. EXAM: Chest x-ray PA and lateral views. COMPARISONS: Chest x-ray dated 07/18/2007. FINDINGS: Moderate-sized hiatal hernia is seen. There are slightly hyperinflated lungs, increased retrosternal clear space, and flattened hemidiaphragms which can be seen with COPD changes. There is no lung infiltrate. There is mild increased lung markings in both lung bases which may represent atelectasis or scarring. There is a central line or wire overlying left chest with tip overlying the expected region of the distal superior vena cava. Pulmonary vasculature and cardiac silhouettes within normal limits. Interval placement of reverse left total shoulder arthroplasty. There is kyphodextroscoliosis of the thoracolumbar spine. Osteopenia seen. There are mild compression deformities of the thoracolumbar region of unknown age. IMPRESSION: 1: There is no radiographic evidence of acute cardiopulmonary process. 2: COPD lung changes. 3: There is a moderate-sized hiatal hernia. Dictated by: Dictated on workstation # [id number]
== END ==
LOC: RAD FS 09:58
PROVIDERS: ATTEND Physician Assistant
DX: J44.9 Chronic obstructive pulmonary disease, unspecified (principal); K44.9 Diaphragmatic hernia without obstruction or gangrene; Z87.891 Personal history of nicotine dependence
CPT/HCPCS: 71046

== ENCOUNTER 2019-03-05 15:34 | Emergency (ER) | payer MEDICARE, MEDICAID ==
[~2019-03-05] VITALS: Ht 157.5 cm; Wt 59.0 kg
[2019-03-05] MEDS ORDERED: LACTATED RINGERS 1,000 ML IV ONE ×2 (16:28)
[2019-03-05] MEDS ORDERED: fentaNYL INJECTION 100 MCG/2 ML AMP IVP ONE (16:30)
[2019-03-05] MEDS ORDERED: ONDANSETRON 4 MG/2 ML (SDV) Z0FRAN IVP ONE (16:30)
--- OUTSIDE RECORDS SUMMARY | 2019-03-05 16:37 | XMS REPORT | Clinical Summary ---
Author Author [facility] Organization [facility] Address Unknown Phone Unavailable Care Team Providers Care Financial Quantitative Analyst Name Role Phone PCP Unavailable Allergies Not [...]
--- OUTSIDE RECORDS SUMMARY | 2019-03-05 16:38 | XMS REPORT | Clinical Summary ---
Author Author [facility] Organization [facility] Address Unknown Phone Unavailable Care Team Providers Care Crystalizer Operator Name Role Phone Reyes Gao MD Unavailable Reyes Gao MD PCP Source Comments Some departments are not documenting in the electronic medical record. If you do not see the information that you expected, contact Release of Information in the Health Information Management department at [phone] for further assistance in locating additional records.[facility] Allergies Comments Active Allergy Reactions Severity Noted Date Sulfa (Sulfonamide VOMITING Low 01/24/2016 Antibiotics) Medications End Date Status Medication Sig Dispensed Refills Start Date Active PANTOPRAZOLE SODIUM Take by 0 (PROTONIX PO)Indications: mouth. Vision loss, bilateral Active CYCLOBENZAPRINE HCL Take by 0 (FLEXERIL PO)Indications: mouth. Vision loss, bilateral Active potassium chloride (KDUR) Take 10 mEq 0 10 mEq tabletIndications: by mouth Vision loss, bilateral daily. Active PRAMIPEXOLE DI-HCL Take by 0 (MIRAPEX PO)Indications: mouth. Vision loss, bilateral Active traMADol (ULTRAM) 50 mg Take 50 mg by 0 tabletIndications: Vision mouth every 6 loss, bilateral hours as needed for Pain. Active gabapentin (NEURONTIN) Take 300 mg 0 300 mg by mouth capsuleIndications: three times Vision loss, bilateral daily. Active levothyroxine (SYNTHROID) Take 75 mcg 0 75 mcg tabletIndications: by mouth Vision loss, bilateral daily. Active metoprolol XL (TOPROL XL) Take 50 mg by 0 50 mg tabletIndications: mouth daily. Vision loss, bilateral Active ARIPiprazole (ABILIFY) 15 Take 15 mg by 0 mg tabletIndications: mouth daily. Vision loss, bilateral Active amitriptyline (ELAVIL) 25 Take 25 mg by 0 mg tabletIndications: mouth at Vision loss, bilateral bedtime daily. Active VORTIOXETINE HYDROBROMIDE Take by 0 (BRINTELLIX mouth. PO)Indications: Vision loss, bilateral Active MEMANTINE HCL (NAMENDA Take by 0 PO)Indications: Vision mouth. loss, bilateral Active vitamin E 100 unit Take 100 0 capsuleIndications: Units by Vision loss, bilateral mouth daily. Active BIOTIN/CALCIUM CARBONATE Take by 0 (BIOTIN 100+10 mouth. PO)Indications: Vision loss, bilateral Active ERGOCALCIFEROL (VITAMIN Take by 0 D2) (VITAMIN D mouth. PO)Indications: Vision loss, bilateral Active calcitonin salmon Apply 1 [place] 0 (MIACALCIN) 200 to one unit/actuation nasal nostril as sprayIndications: Vision directed loss, bilateral daily. Active sumatriptan (IMITREX) 100 Take 100 mg 0 mg tabletIndications: by mouth as Vision loss, bilateral Needed for Migraine symptoms. Active nitroglycerin (NITROSTAT) Place 0.3 mg 0 0.3 mg tabletIndications: under tongue Vision loss, bilateral every 5 minutes as needed for Chest Pain. Active mesalamine (LIALDA) 1.2 Take by 0 gram tablet mouth daily. Swallow whole; do not break, chew or crush. Administer with a meal. Active traZODone (DESYREL) 50 mg Take 50 mg by 0 tablet mouth at bedtime as needed for Sleep. Active furosemide (LASIX) 20 mg Take 20 mg by 0 tablet mouth every morning. Active Problems Problem Noted Date Mild [...] Comments Cataract Father Cataract Mother Glaucoma Mother Amblyopia Neg Hx Blindness Neg Hx Macular Degen Neg Hx Retinal Detachment Neg Hx Strabismus Neg Hx Relation Name Status Comments Father Mother Social History Date Tobacco Use Types Packs/Day Years Used Former Smoker Sex Assigned at Date Recorded Not on file Industry Job Start Date Occupation Not on file Not on file Not on file Travel End Travel History Travel Start No recent travel history available. 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 Blood Pressure 190/102 10/31/2016 2:04 PM [employer]EWARDING SUPERVISOR Pulse 71 - Temperature - - Respiratory Rate - - Oxygen Saturation - - Inhaled Oxygen - Concentration 10/31/2016 2:04 PM [employer]EWARDING SUPERVISOR Weight 75.3 kg (166 lb) 10/31/2016 2:04 PM [employer]EWARDING SUPERVISOR Height 162.6 cm (5' 4") 10/31/2016 2:04 PM [employer]EWARDING SUPERVIS[employer] Body Mass Index 28.49 Plan of Treatment Health Maintenance Due Date Last Done Comments HEPATITIS C SCREENING 1947 PHYSICAL (COMPREHENSIVE) 1954 EXAM DTAP/TDAP VACCINES (1 - 1965 Tdap) BREAST CANCER SCREENING 1987 COLORECTAL CANCER 1997 SCREENING SHINGLES RECOMBINANT 1997 VACCINE (1 of 2) OSTEOPOROSIS 2012 SCREENING/MONITORING PNEUMONIA (PCV13/PPSV23) 2012 VACCINES (1 of 2 - PCV13) INFLUENZA VACCINE 08/05/2019 Results Not on filefrom Last 3 Months Insurance Type Payer Benefit Subscriber ID Effective Phone Address Plan / Dates Group Medicare MEDICARE MEDICARE xxxxxxxxxx 2001-P PART A AND resent B Medicaid [employer] [place] [employer] xxxxxxxxxxx 2010- STATE Present HEALTH Advance Directives Patient has advance care planning documents on file. For more information, please contact: [facility] [address] [place] [address]
--- OUTSIDE RECORDS SUMMARY | 2019-03-05 16:38 | XMS REPORT ---
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 May, Active 909162755 Problem Hypokalemia E87.6 March, Active 97760665 Problem SOB (shortness of breath) R06.02 Nov, Active 835115936 Problem CKD (chronic kidney disease) stage 3, GFR 30-59 ml/min N18.3 Apr, Active 860984048 Problem Ulcerative colitis K51.90 Jul, Active 75051128 Problem Hyperlipidemia E78.5 Aug, Active 99453517 Problem Migraine G43.909 Aug, Active 68453464 Problem Diarrhea R19.7 Sep, Active 58842385 Problem Rheumatoid arthritis M06.9 Sep, Active 97031224 Problem Anemia D64.9 Sep, Active 238621552 Problem 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, 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 Active Problem Moderate episode of recurrent major depressive disorder F33.1 Active 062021169 Problem PVC (premature ventricular contraction) I49.3 Nov, Active 85242769 Problem Chronic pain G89.29 Aug, Active 13496481 Problem Essential hypertension I10 Active 14070063 Problem Diastolic dysfunction I51.9 Jan, Active 3059399 Problem Osteoporosis M81.0 Dec, Active 47375474 Problem Generalized abdominal pain R10.84 Sep, Active 032418503 Problem Stage 1 skin ulcer of sacral region L98.429 Active Problem Closed fracture of left distal tibia S82.302A Jan, Active 07210642 Problem Rotator cuff tendonitis M75.80 11 Mar, 2012 Active 267418152 Problem Iron deficiency anemia secondary to inadequate dietary iron intake D50.8 Active 330765581 ALLERGIES No Information ENCOUNTERS Encounter Location Date Diagnosis [address] [address] Apr, [facility] [address] [address] March, [facility] [id number] [place] [address] Jan, [address] [address] Jan, Diastolic dysfunction I51.9 ; Rheumatoid arthritis M06.9 ; Ulcerative colitis K51.90 ; Essential hypertension I10 ; Moderate episode of recurrent major depressive disorder F33.1 and Iron deficiency anemia secondary to inadequate dietary iron intake D50.[address] [address] Jan, [address] [address] Jan, Acute bronchitis, unspecified organism J20.9 and 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 [place] [id number] [place] [address] Dec, [address] [address] Dec, [facility] [address] [place] [address] Nov, Viral upper respiratory illness J06.9 and Nausea alone R11.0 [facility] [address] [address] Oct, [facility] [id number] [place] [address] Oct, [facility] [id number] [place] [address] Oct, [facility] [id number] [address] Aug, [facility] [place] [facility] [address] [id number] [place] [address] March, [facility] [place] [facility] [address] [id number] [place] [address] Feb, [facility] [place] [facility] [address] [id number] [place] [address] Feb, [facility] [place] [facility] [address] [id number] [place] [address] Jan, [facility] [place] [facility] [address] [id number] [place] [address] Jan, [facility] [place] [facility] [address] [id number] [place] [address] Oct, [facility] [place] [facility] [address] [id number] [place] [address] Oct, [facility] [place] [facility] [address] [id number] [place] [address] Oct, [facility] [place] [facility] [address] [id number] [place] [address] Sep, [facility] [place] [facility] [address] [facility] [id number] [place] [address] Sep, [facility] [place] [facility] [address] [id number] [place] [address] Sep, [facility] [place] [facility] [address] [id number] [place] [address] Sep, [facility] [place] [facility] [address] [id number] [place] [address] Sep, [facility] [place] [facility] [address] [id number] [place] [address] Aug, [facility] [place] [facility] [address] [id number] [place] [address] Aug, [facility] [place] [facility] [address] [id number] [place] [address] Jul, 2013 [facility] [place] [facility] [address] [id number] [place] [address] Jul, 2013 [facility] [place] [facility] [address] [id number] [place] [address] Jul, [facility] [place] [facility] [address] [id number] [place] [address] Jul, 2013 [facility] [place] [facility] [address] [id number] [place] [address] Jul, [facility] [place] [facility] [address] [id number] [place] [address] Jul, [facility] [place] [facility] [address] [id number] [place] [address] May, [facility] [place] [facility] [address] [id number] [place] [address] May, [facility] [place] [facility] [address] [id number] [place] [address] May, [facility] [place] [facility] [address] [id number] [place] [address] May, [facility] [place] [facility] [address] [id number] [place] [address] May, [facility] [place] [facility] [address] [id number] [place] [address]- [address] May, [facility] [place] [facility] [address] [id number] [place] [address] Apr, [facility] [place] [facility] [address] [id number] [place] [address]60 Apr, [facility] [place] [facility] [address] [id number] [place] [address]- [address] Apr, [facility] [place] [facility] [address] [id number] [place] [address]- [address] Apr, [facility] [place] [facility] [address] [id number] [place] [address]- [address] Apr, [facility] [place] [facility] [address] [id number] [place] [address]- [address] Apr, [facility] [place] [facility] [address] [id number] [place] [address] Apr, [facility] [place] [facility] [address] [id number] [place] [address]- 74[address] Apr, [facility] [place] [facility] [address] [id number] [place] [address]- [address] March, [facility] [place] [facility] [address] [id number] [place] [address]- [address] March, [facility] [place] [facility] [address] [id number] [place] [address]- [address] March, [facility] [place] [facility] [address] [id number] [place] [address]- [address] Feb, [facility] [place] [facility] [address] [id number] [place] [address]- [address] Feb, [facility] [place] [facility] [address] [id number] [place] [address]- [address]208 Feb, [facility] [place] [facility] [address] [id number] [place] [address]- [address] Feb, [facility] [place] [facility] [address] [id number] [place] [address]- [address] Feb, [facility] [place] [facility] [address] [id number] [place] [address]- [address] Feb, [facility] [place] [facility] [address] [id number] [place] [address]- [address]256 Feb, [facility] [place] [facility] [address] [id number] [place] [address]- [address] Feb, [facility] [place] [facility] [address] [id number] [place] [address]- [address] 10 Jan, 2014 [facility] [place] [facility] [address] [id number] [place] [address]- [address] Jan, [facility] [place] [facility] [address] [id number] [place] [id number] Dec, [facility] [place] [facility] [address] [id number] [place] [address]- 49[address] Dec, [facility] [place] [facility] [address] [id number] [place] [address]- 1986 Dec, [facility] [place] [facility] [address] [id number] [place] [address]- 90[address] Dec, [facility] [place] [facility] [address] [id number] [place] [address]- 9427 Dec, [facility] [place] [facility] [address] [id number] [place] [address]- 49[address] Nov, [facility] [place] [facility] [address] [id number] [place] [address]- 3826 Nov, [facility] [place] [facility] [address] [id number] [place] [address]- 97[address] Nov, [facility] [place] [facility] [address] [id number] [place] [address]- 6742 Nov, [facility] [place] [facility] [address] [id number] [place] [address]- 9590 Nov, [facility] [place] [facility] [address] [id number] [place] [address]- 9719 Nov, [facility] [place] [facility] [address] [id number] [place] [address]- 6666 Oct, [facility] [place] [facility] [address] [id number] [place] [address]- 4426 Oct, [facility] [place] [facility] [address] [id number] [place] [address]- 3271 Sep, [facility] [place] [facility] [address] [id number] [place] [address]- 3443 Sep, [facility] [place] [facility] [address] [id number] [place] [address]- 1965 Sep, [facility] [place] [facility] [address] [id number] [place] [address]- 8145 Sep, [facility] [place] [facility] [address] [id number] [place] [address]- 4805 Sep, [facility] [place] [facility] [address] [id number] [place] [address]- 6342 Sep, [facility] [place] [facility] [address] [id number] [place] [address]- 2326 Aug, [facility] [place] [facility] [address] [id number] [place] [address]- 0420 Aug, [facility] [place] [facility] [address] [id number] [place] [address]- 1431 May, [facility] [place] [facility] [address] [id number] [place] [address]- 9978 May, [facility] [place] [facility] [address] [id number] [address]- 9749 May, [facility] [place] [facility] [address] [id number] [address]- 9466 May, [facility] [place] [facility] [address] [id number], [place] [address]- 43[address] Apr, [facility] [place] [facility] [address] [id number] [place] [address]- 6221 Feb, [facility] [place] [facility] [address] [id number], [place] [address]- [address]686 Jan, [facility] [place] [facility] [address] [id number] [place] [address]- 2369 Nov, [facility] [place] [facility] [address] [id number] [place] [address]- 8734 14 Nov, 2012 [facility] [address] [id number] [place] [address]- 9400 09 Nov, 2012 [facility] [place] [facility] [address] [id number] [place] [address]- 2174 Nov, [facility] [place] [facility] [address] [id number] [place] [address]- 5319 31 Oct, 2012 [facility] [place] [facility] [address] [id number] [place] [address]- 9941 31 Oct, 2012 [facility] [place] [facility] [address] [id number] [place] [address]- 6294 Oct, [facility] [place] [facility] [address] [id number] [place] [address]- 9101 Oct, [facility] [address] [id number] [place] [address]- 1658 Oct, [facility] [place] [facility] [address] [id number] [place] [address]- 6009 27 Oct, 2012 [facility] [place] [facility] [address] [id number] [place] [address]- 4538 Oct, [facility] [place] [facility] [address] [facility] [id number] [place] [address]- 3178 Oct, [facility] [place] [facility] [address] [id number] [place] [address]- 6984 13 Sep, 2012 [facility] [place] [facility] [address] [id number] [place] [address]- 5988 13 Sep, 2012 [facility] [place] [facility] [address] [id number] [place] [address]- 7293 16 Aug, 2012 [facility] [place] [facility] [address] [id number] [place] [address]- 3505 16 Aug, 2012 [facility] [place] [facility] [address] [id number] [place] [address]- 9297 24 Jul, 2012 [facility] [place] [facility] [address] [id number] [place] [address]- 3168 Jul, [facility] [place] [facility] [address] [id number] [place] [address]- 7495 Jun, [facility] [place] [facility] [address] [id number] [place] [address]- 3536 Jun, [facility] [place] [facility] [address] [id number] [place] [address]- 5960 Jun, [facility] [place] [facility] [address] [id number] [place] [address]- 5242 Jun, [facility] [place] [facility] [address] [id number] [place] [address]- 1562 May, [facility] [place] [facility] [address] [id number] [place] [address]- 8328 May, [facility] [place] [facility] [address] [id number] [place] [address]- 7994 May, [facility] [place] [facility] [address] [id number] [place] [address]- 1937 May, [facility] [place] [facility] [address] [id number] [place] [address]- 4010 May, [facility] [place] [facility] [address] [id number] [place] [address]- 4798 May, [facility] [place] [facility] [address] [id number] [place] [address]- 4083 Apr, [facility] [place] [facility] [address] [id number] [place] [address]- 6070 March, [facility] [place] [facility] [address] [id number] [place] [address]- 8228 March, [facility] [place] [facility] [address] [id number] [place] [address]- 4225 Feb, [facility] [place] [facility] [address] [id number] [place] [address]- 2215 Feb, [facility] [address] [facility] [id number], [place] [address]- 8537 Feb, [facility] [address] [facility] [id number], [place] [address]- 6586 Feb, [facility] [address] [facility] [id number], [place] [address]46 Jan, [facility] [address] [facility] [id number], [place] [address]- 5556 Dec, [facility] [address] [facility] [id number], [place] [address]- 6009 Nov, [facility] [address] [facility] [id number], [place] [address]- 7916 Nov, [facility] [id number] [address]- [address] Nov, [facility] [address] [facility] [id number], [place] [address]- 0637 Oct, [facility] [id number], [place] [address]- 3195 Oct, [facility] [id number], [place] [address]- 9140 Sep, [facility] [id number], [place] [address]- [address] 15 Sep, 2011 [facility] [address] [id number], [place] [address]- 6[address] 14 Oct, 2010 [facility] [address] [facility] [id number], [place] [address]- 6130 30 Sep, 2010 [facility] [address] [facility] [id number], [place] [address]- 6[address] Aug, [facility] [id number] [address]- 2480 Aug, IMMUNIZATIONS No Known Immunizations SOCIAL HISTORY Never Assessed REASON FOR VISIT EMR-[facility] [place] PLAN OF CARE VITAL SIGNS MEDICATIONS Unknown Medications RESULTS No Results PROCEDURES No Known procedures INSTRUCTIONS MEDICATIONS ADMINISTERED No Known Medications MEDICAL (GENERAL) HISTORY Type Description Date Medical History Ulcerative colitis Medical History Rheumatoid arthritis Medical History Osteoporosis Medical History Neuropathy Medical History Irritable bowel syndrome Medical History Hypothyroidism Medical History Hypertension Medical History Dementia Medical History Anxiety Medical History Bipolar disorder Surgical History cholecystectomy Surgical History heart cath - Stephenie Rojas 03/2018 Surgical History hysterectomy Surgical History hernia repair Surgical History tonsillectomy
--- OUTSIDE RECORDS SUMMARY | 2019-03-05 16:38 | XMS REPORT ---
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 May, Active 508511159 Problem Hypokalemia E87.6 March, Active 79613063 Problem SOB (shortness of breath) R06.02 Nov, Active 293507605 Problem CKD (chronic kidney disease) stage 3, GFR 30-59 ml/min N18.3 Apr, Active 297873411 Problem Ulcerative colitis K51.90 Jul, Active 31627112 Problem Hyperlipidemia E78.5 Aug, Active 88921534 Problem Migraine G43.909 Aug, Active 16377617 Problem Diarrhea R19.7 Sep, Active 10831431 Problem Rheumatoid arthritis M06.9 Sep, Active 51041029 Problem Anemia D64.9 Sep, Active 397783357 Problem 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, 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 Active Problem Moderate episode of recurrent major depressive disorder F33.1 Active 043320553 Problem PVC (premature ventricular contraction) I49.3 Nov, Active 13753257 Problem Chronic pain G89.29 Aug, Active 88190090 Problem Essential hypertension I10 Active 48595906 Problem Diastolic dysfunction I51.9 Jan, Active 6455662 Problem Osteoporosis M81.0 Dec, Active 60557599 Problem Generalized abdominal pain R10.84 Sep, Active 908369819 Problem Stage 1 skin ulcer of sacral region L98.429 Active Problem Closed fracture of left distal tibia S82.302A Jan, Active 34977856 Problem Rotator cuff tendonitis M75.80 11 Mar, 2012 Active 926524390 Problem Iron deficiency anemia secondary to inadequate dietary iron intake D50.8 Active 102083241 ALLERGIES No Information ENCOUNTERS Encounter Location Date Diagnosis [address] [address] Apr, [facility] [address] [address] March, [facility] [id number] [place] [address] Jan, [address] [address] Jan, Diastolic dysfunction I51.9 ; Rheumatoid arthritis M06.9 ; Ulcerative colitis K51.90 ; Essential hypertension I10 ; Moderate episode of recurrent major depressive disorder F33.1 and Iron deficiency anemia secondary to inadequate dietary iron intake D50.[address] [address] Jan, [address] [address] Jan, Acute bronchitis, unspecified organism J20.9 and 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 [address] [id number] [place] [address] Dec, [address] [address] Dec, [facility] [address] [place] [address] Nov, Viral upper respiratory illness J06.9 and Nausea alone R11.0 [facility] [address] [address] Oct, [facility] [id number] [place] [address] Oct, [facility] [id number] [place] [address] Oct, [facility] [id number] [place] [address] Aug, [facility] [place] [facility] [address] [id number] [place] [address] March, [facility] [place] [facility] [address] [id number] [place] [address] Feb, [facility] [place] [facility] [address] [id number] [place] [address] Feb, [facility] [place] [facility] [address] [id number] [place] [address] Jan, [facility] [place] [facility] [address] [id number] [place] [address] Jan, [facility] [place] [facility] [address] [id number] [place] [address] Oct, [facility] [place] [facility] [address] [id number] [place] [address] Oct, [facility] [place] [facility] [address] [id number] [place] [address] Oct, [facility] [place] [facility] [address] [id number] [place] [address] Sep, [facility] [place] [facility] [address] [facility] [id number] [place] [address] Sep, [facility] [place] [facility] [address] [id number] [place] [address] Sep, [facility] [place] [facility] [address] [id number] [place] [address] Sep, [facility] [place] [facility] [address] [id number] [place] [address] Sep, [facility] [place] [facility] [address] [id number] [place] [address] Aug, [facility] [place] [facility] [address] [id number] [place] [address] Aug, [facility] [place] [facility] [address] [id number] [place] [address] Jul, 2013 [facility] [place] [facility] [address] [id number] [place] [address] Jul, 2013 [facility] [place] [facility] [address] [id number] [place] [address] Jul, [facility] [place] [facility] [address] [id number] [place] [address] Jul, 2013 [facility] [place] [facility] [address] [id number] [place] [address] Jul, [facility] [place] [facility] [address] [id number] [place] [address] Jul, [facility] [place] [facility] [address] [id number] [place] [address] May, [facility] [place] [facility] [address] [id number] [place] [address] 69[address] May, [facility] [place] [facility] [address] [id number] [place] [address] May, [facility] [place] [facility] [address] [id number] [place] [address] May, [facility] [place] [facility] [address] [id number] [place] [address]- 67[address] May, [facility] [place] [facility] [address] [id number] [place] [address]- [address] May, [facility] [place] [facility] [address] [id number] [place] [address]- [address] Apr, [facility] [place] [facility] [address] [id number] [place] [address] Apr, [facility] [place] [facility] [address] [id number] [place] [address]- [address] Apr, [facility] [place] [facility] [address] [id number] [place] [address] Apr, [facility] [place] [facility] [address] [id number] [place] [address]- [address] Apr, [facility] [place] [facility] [address] [id number] [place] [address]- [address] Apr, [facility] [place] [facility] [address] [id number] [place] [address]- [address] Apr, [facility] [place] [facility] [address] [id number] [place] [address] Apr, [facility] [place] [facility] [address] [id number] [place] [address]- [address] March, [facility] [place] [facility] [address] [id number] [place] [address]- [address] March, [facility] [place] [facility] [address] [id number] [place] [address]- [address] March, [facility] [place] [facility] [address] [id number] [place] [address]- [address] Feb, [facility] [place] [facility] [address] [id number] [place] [address]- [address] Feb, [facility] [place] [facility] [address] [id number] [place] [address]- [address] Feb, [facility] [place] [facility] [address] [id number] [place] [address]- [address] Feb, [facility] [place] [facility] [address] [id number] [place] [address]- [address] Feb, [facility] [place] [facility] [address] [id number] [place] [address]- [address] Feb, [facility] [place] [facility] [address] [id number] [place] [address]- [address] Feb, [facility] [place] [facility] [address] [id number] [place] [address]- [address]40 Feb, [facility] [place] [facility] [address] [id number] [place] [address]- [address] 10 Jan, 2014 [facility] [place] [facility] [address] [id number] [place] [address]- [address] Jan, [facility] [place] [facility] [address] [id number] [place] [address] Dec, [facility] [place] [facility] [address] [id number] [place] [address]- [address]36 Dec, [facility] [place] [facility] [address] [id number] [place] [address]- 1283 Dec, [facility] [place] [facility] [address] [id number] [place] [address]- 7679 Dec, [facility] [place] [facility] [address] [id number] [place] [address]- 6486 Dec, [facility] [place] [facility] [address] [id number] [place] [address]- 3785 Nov, [facility] [place] [facility] [address] [id number] [place] [address]- 4715 Nov, [facility] [place] [facility] [address] [id number] [place] [address]- 7497 Nov, [facility] [place] [facility] [address] [id number] [place] [address]- 5580 Nov, [facility] [place] [facility] [address] [id number] [place] [address]- 0487 Nov, [facility] [place] [facility] [address] [id number] [place] [address]- 1133 Nov, [facility] [place] [facility] [address] [id number] [place] [address]- 8226 Oct, [facility] [place] [facility] [address] [id number] [place] [address]- 8566 Oct, [facility] [place] [facility] [address] [id number] [place] [address]- 0870 Sep, [facility] [place] [facility] [address] [id number] [place] [address]- 9898 Sep, [facility] [place] [facility] [address] [id number] [place] [address]- 9350 Sep, [facility] [place] [facility] [address] [id number] [place] [address]- 2165 Sep, [facility] [place] [facility] [address] [id number] [place] [address]- 7178 Sep, [facility] [place] [facility] [address] [id number] [place] [address]- 7972 Sep, [facility] [place] [facility] [address] [id number] [place] [address]- 5551 Aug, [facility] [place] [facility] [address] [id number] [place] [address]- 2312 Aug, [facility] [place] [facility] [address] [id number] [place] [address]- 7893 May, [facility] [place] [facility] [address] [id number] [place] [address]- 3554 May, [facility] [place] [facility] [address] [id number] [address]- 1745 May, [facility] [place] [facility] [address] [id number] [address]- 9401 May, [facility] [place] [facility] [address] [id number] [address]- 2846 Apr, [facility] [place] [facility] [address] [id number] [place] [address]- 3989 Feb, [facility] [place] [facility] [address] [id number] [address]- [address] Jan, [facility] [place] [facility] [address] [id number] [place] [address]- 9631 Nov, [facility] [place] [facility] [address] [id number] [place] [address]- 0532 14 Nov, 2012 [facility] [address] [id number] [place] [address]- 4712 09 Nov, 2012 [facility] [place] [facility] [address] [id number] [place] [address]- 3916 Nov, [facility] [place] [facility] [address] [id number] [place] [address]- 3262 31 Oct, 2012 [facility] [place] [facility] [address] [id number] [place] [address]- 0159 31 Oct, 2012 [facility] [place] [facility] [address] [id number] [place] [address]- 3770 Oct, [facility] [place] [facility] [address] [id number] [place] [address]- 7637 Oct, [facility] [address] [id number] [place] [address]- 0900 Oct, [facility] [place] [facility] [address] [id number] [place] [address]- 1937 27 Oct, 2012 [facility] [place] [facility] [address] [id number] [place] [address]- 7096 Oct, [facility] [place] [facility] [address] [facility] [id number] [place] [address]- 9026 Oct, [facility] [place] [facility] [address] [id number] [place] [address]- 3665 13 Sep, 2012 [facility] [place] [facility] [address] [id number] [place] [address]- 8304 13 Sep, 2012 [facility] [place] [facility] [address] [id number] [place] [address]- 0538 16 Aug, 2012 [facility] [place] [facility] [address] [id number] [place] [address]- 5720 16 Aug, 2012 [facility] [place] [facility] [address] [id number] [place] [address]- 7997 24 Jul, 2012 [facility] [place] [facility] [address] [id number] [place] [address]- 0750 Jul, [facility] [place] [facility] [address] [id number] [place] [address]- 8575 Jun, [facility] [place] [facility] [address] [id number] [place] [address]- 5591 Jun, [facility] [place] [facility] [address] [id number] [place] [address]- 3573 Jun, [facility] [place] [facility] [address] [id number] [place] [address]- 7583 Jun, [facility] [place] [facility] [address] [id number] [place] [address]- 9963 May, [facility] [place] [facility] [address] [id number] [place] [address]- 1801 May, [facility] [place] [facility] [address] [id number] [place] [address]- 1600 May, [facility] [place] [facility] [address] [id number] [place] [address]- 9740 May, [facility] [place] [facility] [address] [id number] [place] [address]- 6329 May, [facility] [place] [facility] [address] [id number] [place] [address]- 8157 May, [facility] [place] [facility] [address] [id number] [place] [address]- 1843 Apr, [facility] [place] [facility] [address] [id number] [place] [address]- 5040 March, [facility] [place] [facility] [address] [id number] [place] [address]- 6320 March, [facility] [place] [facility] [address] [id number] [place] [address]- 1629 Feb, [facility] [place] [facility] [address] [id number] [place] [address]- [address] Feb, [facility] [address] [facility] [id number] [address]- 6[address] Feb, [facility] [address] [facility] [id number] [address]- 8966 Feb, [facility] [address] [facility] [id number] [place] [address] 2546 Jan, [facility] [address] [facility] [id number] [address]- 7036 Dec, [facility] [address] [facility] [id number] [address]- 8914 Nov, [facility] [address] [facility] [id number] [address]- 0936 Nov, [facility] [id number] [address]- [address] Nov, [facility] [address] [facility] [id number] [address]- 8416 Oct, [facility] [address] [id number] [address]- 99[address] Oct, [facility] [address] [id number] [address]- 87[address] Sep, [facility] [address] [id number] [address]- 29[address] 15 Sep, 2011 [facility] [address] [id number] [address]- 2797 14 Oct, 2010 [facility] [address] [facility] [id number] [address]- 5469 30 Sep, 2010 [facility] [address] [facility] [id number] [place] [address]- 6[address] Aug, [facility] [address] [id number] [address]- 3021 Aug, IMMUNIZATIONS No Known Immunizations SOCIAL HISTORY Never Assessed REASON FOR VISIT EMR-[facility] PLAN OF CARE VITAL SIGNS MEDICATIONS Unknown [...]
--- OUTSIDE RECORDS SUMMARY | 2019-03-05 16:39 | XMS REPORT ---
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 May, Active 482405758 Problem Hypokalemia E87.6 March, Active 81681677 Problem SOB (shortness of breath) R06.02 Nov, Active 663722395 Problem CKD (chronic kidney disease) stage 3, GFR 30-59 ml/min N18.3 Apr, Active 213111794 Problem Ulcerative colitis K51.90 Jul, Active 84122544 Problem Hyperlipidemia E78.5 Aug, Active 48135601 Problem Migraine G43.909 Aug, Active 63623364 Problem Diarrhea R19.7 Sep, Active 51755176 Problem Rheumatoid arthritis M06.9 Sep, Active 59727734 Problem Anemia D64.9 Sep, Active 234556136 Problem 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, 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 Active Problem Moderate episode of recurrent major depressive disorder F33.1 Active 388751484 Problem PVC (premature ventricular contraction) I49.3 Nov, Active 42879562 Problem Chronic pain G89.29 Aug, Active 83044093 Problem Essential hypertension I10 Active 32131194 Problem Diastolic dysfunction I51.9 Jan, Active 2539226 Problem Osteoporosis M81.0 Dec, Active 03009233 Problem Generalized abdominal pain R10.84 Sep, Active 713118695 Problem Stage 1 skin ulcer of sacral region L98.429 Active Problem Closed fracture of left distal tibia S82.302A Jan, Active 05127091 Problem Rotator cuff tendonitis M75.80 11 Mar, 2012 Active 559120752 Problem Iron deficiency anemia secondary to inadequate dietary iron intake D50.8 Active [id number] ALLERGIES No Information ENCOUNTERS Encounter Location Date Diagnosis [facility] [place] [address] [address] Apr, [facility] [address] [address] Jan, [address] [address] Jan, Diastolic dysfunction I51.9 ; Rheumatoid arthritis M06.9 ; Ulcerative colitis K51.90 ; Essential hypertension I10 ; Moderate episode of recurrent major depressive disorder F33.1 and Iron deficiency anemia secondary to inadequate dietary iron intake D50.[address] [address] Jan, [address] [address] Jan, Acute bronchitis, unspecified organism J20.9 and 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 [facility] [id number] [place] [address] Dec, [address] [address] Dec, [facility] [address] [place] [address] Nov, Viral upper respiratory illness J06.9 and Nausea alone R11.0 [facility] [address], [place] [address] Oct, [facility] [id number] [address] Oct, [facility] [id number] [place] [address] Oct, [facility] [id number] [place] [address] Aug, [facility] [id number] [address] March, [facility] [place] [facility] [address] [id number] [place] [address] 14 Feb, 2015 [facility] [place] [facility] [address] [id number] [place] [address] Feb, [facility] [place] [facility] [address] [id number] [place] [address] Jan, [facility] [place] [facility] [address] [id number] [place] [address] Jan, [facility] [place] [facility] [address] [id number] [place] [address] Oct, [facility] [place] [facility] [address] [id number] [place] [address] Oct, [facility] [place] [facility] [address] [id number] [place] [address] Oct, [facility] [place] [facility] [address] [id number] [place] [address] Sep, [facility] [place] [facility] [address] [id number] [place] [address] Sep, [facility] [place] [facility] [address] [facility] [id number] [place] [address] Sep, [facility] [place] [facility] [address] [id number] [place] [address] Sep, [facility] [place] [facility] [address] [id number] [place] [address] 86[address] Sep, [facility] [place] [facility] [address] [id number] [place] [address] Aug, [facility] [place] [facility] [address] [id number] [place] [address] Aug, [facility] [place] [facility] [address] [id number] [address] Jul, [facility] [place] [facility] [address] [id number] [place] [address] 26 Jul, 2013 [facility] [place] [facility] [address] [id number] [place] [address] 10 Jul, 2013 [facility] [place] [facility] [address] [id number] [place] [address] Jul, 2013 [facility] [place] [facility] [address] [id number] [place] [address] 08 Jul, 2013 [facility] [place] [facility] [address] [id number] [place] [address] Jul, [facility] [place] [facility] [address] [id number] [place] [address] May, [facility] [place] [facility] [address] [id number] [place] [address] 48[address] May, [facility] [place] [facility] [address] [id number] [place] [address] 26[address] May, [facility] [place] [facility] [address] [id number] [place] [address] May, [facility] [place] [facility] [address] [id number] [place] [address] May, [facility] [place] [facility] [address] [id number] [place] [address]- 26[address] May, [facility] [place] [facility] [address] [id number] [place] [address]- [address] Apr, [facility] [place] [facility] [address] [id number] [place] [address] Apr, [facility] [place] [facility] [address] [id number] [place] [address] Apr, [facility] [place] [facility] [address] [id number] [place] [address]- [address] Apr, [facility] [place] [facility] [address] [id number] [place] [address] Apr, [facility] [place] [facility] [address] [id number] [place] [address]- 7323 Apr, [facility] [place] [facility] [address] [id number] [place] [address]- [address] Apr, [facility] [place] [facility] [address] [id number] [place] [address]- [address] Apr, [facility] [place] [facility] [address] [id number] [place] [address]- [address]365 March, [facility] [place] [facility] [address] [id number] [place] [address]- 7374 March, [facility] [place] [facility] [address] [id number] [place] [address]- [address] March, [facility] [place] [facility] [address] [id number] [place] [address]- [address] Feb, [facility] [place] [facility] [address] [id number] [place] [address]- [address] Feb, [facility] [place] [facility] [address] [id number] [place] [address]- 04[address] Feb, [facility] [place] [facility] [address] [id number] [place] [address]- [address] Feb, [facility] [place] [facility] [address] [id number] [place] [address]- [address] Feb, [facility] [place] [facility] [address] [id number] [place] [address]- 39[address] Feb, [facility] [place] [facility] [address] [id number] [place] [address]- 77[address] Feb, [facility] [place] [facility] [address] [id number] [place] [address]- [address] Feb, [facility] [place] [facility] [address] [id number] [place] [address]- [address] Jan, [facility] [place] [facility] [address] [id number] [place] [address]- [address] Jan, [facility] [address] [id number] [place] [address] Dec, [facility] [place] [facility] [address] [id number] [place] [address]- 3860 Dec, [facility] [address] [id number] [place] [address]- 6546 Dec, [facility] [place] [facility] [address] [id number] [place] [address]- 4[address] Dec, [facility] [place] [facility] [address] [id number] [place] [address]- 2581 Dec, [facility] [place] [facility] [address] [id number] [place] [address]- 2907 Nov, [facility] [place] [facility] [address] [id number] [place] [address]- 5564 Nov, [facility] [address] [id number] [place] [address]- 2091 Nov, [facility] [address] [id number] [place] [address]- 3643 Nov, [facility] [address] [id number] [place] [address] Nov, [facility] [place] [facility] [address] [id number] [place] [address]- 7002 Nov, [facility] [address] [id number] [place] [address]- 6986 Oct, [facility] [place] [facility] [address] [id number] [place] [address]- 8377 Oct, [facility] [place] [facility] [address] [id number] [place] [address]- 5376 Sep, [facility] [place] [facility] [address] [id number] [place] [address]- 2210 Sep, [facility] [place] [facility] [address] [id number] [place] [address]- 7268 Sep, [facility] [place] [facility] [address] [id number] [place] [address]- 4841 Sep, [facility] [place] [facility] [address] [id number] [place] [address]- 7746 Sep, [facility] [place] [facility] [address] [id number] [place] [address]- 7312 Sep, [facility] [place] [facility] [address] [id number] [place] [address]- 8736 Aug, [facility] [place] [facility] [address] [id number] [place] [address]- 6594 Aug, [facility] [place] [facility] [address] [id number] [place] [address]- 7651 May, [facility] [place] [facility] [address] [id number] [place] [address]- 3970 May, [facility] [place] [facility] [address] [id number] [place] [address]- 8481 May, [facility] [place] [facility] [address] [id number], [place] [address]- 37[address] May, [facility] [place] [facility] [address] [id number] [place] [address]- 9926 Apr, [facility] [place] [facility] [address] [id number], [place] [address]- 1811 Feb, [facility] [place] [facility] [address] [id number] [place] [address]- 8476 Jan, [facility] [place] [facility] [address] [id number], [place] [address]- 6708 Nov, [facility] [place] [facility] [address] [id number] [place] [address]- 6501 Nov, [facility] [place] [facility] [address] [id number] [place] [address]- 4192 Nov, [facility] [address] [id number] [place] [address]- 7766 Nov, [facility] [place] [facility] [address] [id number] [place] [address]- 1344 Oct, [facility] [place] [facility] [address] [id number] [place] [address]- 2738 Oct, [facility] [place] [facility] [address] [id number] [place] [address] Oct, [facility] [place] [facility] [address] [id number] [place] [address]- 4978 Oct, [facility] [place] [facility] [address] [id number] [place] [address]- 5894 Oct, [facility] [place] [facility] [address] [id number] [place] [address]- 3908 Oct, [facility] [place] [facility] [address] [id number] [place] [address]- 9736 Oct, [facility] [place] [facility] [address] [id number] [place] [address]- 2026 Oct, [facility] [place] [facility] [address] [id number] [place] [address]- 0814 13 Sep, 2012 [facility] [place] [facility] [address] [id number] [place] [address]- 6473 13 Sep, 2012 [facility] [place] [facility] [address] [id number] [place] [address]- 0825 16 Aug, 2012 [facility] [place] [facility] [address] [id number] [place] [address]- 5841 16 Aug, 2012 [facility] [place] [facility] [address] [id number] [place] [address]- 3260 24 Jul, 2012 [facility] [place] [facility] [address] [id number] [place] [address]- 0475 12 Jul, 2012 [facility] [place] [facility] [address] [id number] [place] [address]- 4697 Jun, [facility] [place] [facility] [address] [id number] [place] [address]- 2976 Jun, [facility] [place] [facility] [address] [id number] [place] [address]- 7536 Jun, [facility] [place] [facility] [address] [id number] [place] [address]- 2926 Jun, [facility] [place] [facility] [address] [id number] [place] [address]- 5918 May, [facility] [place] [facility] [address] [id number] [place] [address]- 6446 May, [facility] [place] [facility] [address] [id number] [place] [address]- 3213 May, [facility] [place] [facility] [address] [id number] [place] [address]- 1924 May, [facility] [place] [facility] [address] [id number] [place] [address]- 4383 May, [facility] [place] [facility] [address] [id number] [place] [address]- 2648 May, [facility] [place] [facility] [address] [id number] [place] [address]- 5239 Apr, [facility] [place] [facility] [address] [id number] [place] [address]- 6282 March, [facility] [place] [facility] [address] [id number] [place] [address]- 0136 March, [facility] [place] [facility] [address] [id number] [place] [address]- 0789 Feb, [facility] [place] [facility] [address] [id number] [place] [address]- 1904 Feb, [facility] [place] [facility] [address] [id number] [place] [address]- 7995 Feb, [facility] [id number] [address]- 7946 Feb, [facility] [address], [place] [address]- 2406 Jan, [facility] [address], [place] [address]- 2666 Dec, [facility] [address], [place] [address]- 1773 Nov, [facility] [address], [place] [address]- 4637 Nov, [facility] [id number] [place] [address]- 7097 Nov, [facility] [id number] [place] [address]- 7286 Oct, [facility] [address], [place] [address]- 9346 Oct, [facility] [address], [place] [address]- 5198 Sep, [facility] [address], [place] [address]- 1940 Sep, [facility] [address], [place] [address]- 0144 Oct, [facility] [address], [place] [address]- 9143 30 Sep, 2010 [facility] [address] Aug, [facility] [address]60 Aug, IMMUNIZATIONS No Known Immunizations SOCIAL HISTORY Never Assessed REASON FOR VISIT EMR-[facility] PLAN OF CARE VITAL SIGNS [...]
--- OUTSIDE RECORDS SUMMARY | 2019-03-05 16:39 | XMS REPORT ---
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 May, Active 559721477 Problem Hypokalemia E87.6 March, Active 90040321 Problem SOB (shortness of breath) R06.02 Nov, Active 367685752 Problem CKD (chronic kidney disease) stage 3, GFR 30-59 ml/min N18.3 Apr, Active 246075949 Problem Ulcerative colitis K51.90 Jul, Active 47114567 Problem Hyperlipidemia E78.5 Aug, Active 19928754 Problem Migraine G43.909 Aug, Active 47345445 Problem Diarrhea R19.7 Sep, Active 39173631 Problem Rheumatoid arthritis M06.9 Sep, Active 18838697 Problem Anemia D64.9 Sep, Active 620684520 Problem 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, 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 Active Problem Moderate episode of recurrent major depressive disorder F33.1 Active 324602035 Problem PVC (premature ventricular contraction) I49.3 Nov, Active 59033029 Problem Chronic pain G89.29 Aug, Active 33478611 Problem Essential hypertension I10 Active 29512863 Problem Diastolic dysfunction I51.9 Jan, Active 0074221 Problem Osteoporosis M81.0 Dec, Active 95888387 Problem Generalized abdominal pain R10.84 Sep, Active 426446068 Problem Stage 1 skin ulcer of sacral region L98.429 Active Problem Closed fracture of left distal tibia S82.302A Jan, Active 66842722 Problem Rotator cuff tendonitis M75.80 11 Mar, 2012 Active 341072797 Problem Iron deficiency anemia secondary to inadequate dietary iron intake D50.8 Active 154035067 ALLERGIES No Information ENCOUNTERS Encounter Location Date Diagnosis [facility] [address] [address] Apr, [facility] [address] [address] Jan, [address] [address] Jan, Diastolic dysfunction I51.9 ; Rheumatoid arthritis M06.9 ; Ulcerative colitis K51.90 ; Essential hypertension I10 ; Moderate episode of recurrent major depressive disorder F33.1 and Iron deficiency anemia secondary to inadequate dietary iron intake D50.[address] [address] Jan, [address] [address] Jan, Acute bronchitis, unspecified organism J20.9 and 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 [facility] [id number] [place] [address] Dec, [address] [address] Dec, [facility] [address] [place] [address] Nov, Viral upper respiratory illness J06.9 and Nausea alone R11.0 [facility] [address] [address] Oct, [facility] [address] [id number] [address] Oct, [facility] [id number] [place] [address] Oct, [facility] [id number] [place] [address] Aug, [facility] [id number] [place] [address] March, [facility] [place] [facility] [address] [id number] [place] [address] 14 Feb, 2015 [facility] [place] [facility] [address] [id number] [place] [address] Feb, [facility] [place] [facility] [address] [id number] [place] [address] Jan, [facility] [place] [facility] [address] [id number] [place] [address] Jan, [facility] [place] [facility] [address] [id number] [place] [address] Oct, [facility] [place] [facility] [address] [id number] [place] [address] Oct, [facility] [place] [facility] [address] [id number] [place] [address] Oct, [facility] [place] [facility] [address] [id number] [place] [address] Sep, [facility] [place] [facility] [address] [id number] [place] [address] Sep, [facility] [place] [facility] [address] [facility] [id number] [place] [address] Sep, [facility] [place] [facility] [address] [id number] [place] [address] Sep, [facility] [place] [facility] [address] [id number] [place] [address] Sep, [facility] [place] [facility] [address] [id number] [place] [address]33 Aug, [facility] [place] [facility] [address] [id number] [place] [address] Aug, [facility] [place] [facility] [address] [id number] [address] Jul, [facility] [place] [facility] [address] [id number] [place] [address] 26 Jul, 2013 [facility] [place] [facility] [address] [id number] [place] [address] 10 Jul, 2013 [facility] [place] [facility] [address] [id number] [place] [address] Jul, 2013 [facility] [place] [facility] [address] [id number] [place] [address] 08 Jul, 2013 [facility] [place] [facility] [address] [id number] [place] [address] Jul, [facility] [place] [facility] [address] [id number] [place] [address] May, [facility] [place] [facility] [address] [id number] [place] [address] 12[address] May, [facility] [place] [facility] [address] [id number] [place] [address] 8545 May, [facility] [place] [facility] [address] [id number] [place] [address] 0347 May, [facility] [place] [facility] [address] [id number] [place] [address] 45[address] May, [facility] [place] [facility] [address] [id number] [place] [address] 7274 May, [facility] [place] [facility] [address] [id number] [place] [address] 58[address] Apr, [facility] [place] [facility] [address] [id number] [place] [address] Apr, [facility] [place] [facility] [address] [id number] [place] [address] 31[address] Apr, [facility] [place] [facility] [address] [id number] [place] [address]- [address] Apr, [facility] [place] [facility] [address] [id number] [place] [address] 1481 Apr, [facility] [place] [facility] [address] [id number] [place] [address] Apr, [facility] [place] [facility] [address] [id number] [place] [address]- 1463 Apr, [facility] [place] [facility] [address] [id number] [place] [address]- 74[address] Apr, [facility] [place] [facility] [address] [id number] [place] [address]- [address] March, [facility] [place] [facility] [address] [id number] [place] [address]- 9697 March, [facility] [place] [facility] [address] [id number] [place] [address]- 0766 March, [facility] [place] [facility] [address] [id number] [place] [address]- 1669 Feb, [facility] [place] [facility] [address] [id number] [place] [address]- 6160 Feb, [facility] [place] [facility] [address] [id number] [place] [address]- 1208 Feb, [facility] [place] [facility] [address] [id number] [place] [address]- 7393 Feb, [facility] [place] [facility] [address] [id number] [place] [address]- 1091 Feb, [facility] [place] [facility] [address] [id number] [place] [address]- 5348 Feb, [facility] [place] [facility] [address] [id number] [place] [address]- 4851 Feb, [facility] [place] [facility] [address] [id number] [place] [address]- 3[address] Feb, [facility] [place] [facility] [address] [id number] [place] [address]- 7764 Jan, [facility] [place] [facility] [address] [id number] [place] [address]- 6[address] Jan, [facility] [address] [id number] [place] [id number] Dec, [facility] [place] [facility] [address] [id number] [place] [address]- 6234 Dec, [facility] [address] [id number] [place] [address]- 2916 Dec, [facility] [place] [facility] [address] [id number] [place] [address]- 3281 Dec, [facility] [place] [facility] [address] [id number] [place] [address]- 6377 Dec, [facility] [place] [facility] [address] [id number] [place] [address]- 4924 Nov, [facility] [place] [facility] [address] [id number] [place] [address]- 6397 Nov, [facility] [address] [id number] [place] [address]- 1345 Nov, [facility] [address] [id number] [place] [address]- 0081 Nov, [facility] [address] [id number] [place] [address] Nov, [facility] [place] [facility] [address] [id number] [place] [address]- 1473 Nov, [facility] [address] [id number] [place] [address]- 2214 Oct, [facility] [place] [facility] [address] [id number] [place] [address]- 7939 Oct, [facility] [place] [facility] [address] [id number] [place] [address]- 9086 Sep, [facility] [place] [facility] [address] [id number] [place] [address]- 2245 Sep, [facility] [place] [facility] [address] [id number] [place] [address]- 1920 Sep, [facility] [place] [facility] [address] [id number] [place] [address]- 5293 Sep, [facility] [place] [facility] [address] [id number] [place] [address]- 1363 Sep, [facility] [place] [facility] [address] [id number] [place] [address]- 8007 Sep, [facility] [place] [facility] [address] [id number] [place] [address]- 5218 Aug, [facility] [place] [facility] [address] [id number] [place] [address]- 1560 Aug, [facility] [place] [facility] [address] [id number] [place] [address]- 7699 May, [facility] [place] [facility] [address] [id number] [place] [address]- 5295 May, [facility] [place] [facility] [address] [id number] [place] [address]- 0243 May, [facility] [place] [facility] [address] [id number] [place] [address]- 2191 May, [facility] [place] [facility] [address] [id number] [place] [address]- 2179 Apr, [facility] [place] [facility] [address] [id number] [place] [address]- 0175 Feb, [facility] [place] [facility] [address] [id number] [place] [address]- 9674 Jan, [facility] [place] [facility] [address] [id number] [place] [address]- 7120 Nov, [facility] [place] [facility] [address] [id number] [place] [address]- 9881 Nov, [facility] [place] [facility] [address] [id number] [place] [address]- 3424 Nov, [facility] [address] [id number] [place] [address]- 5396 Nov, [facility] [place] [facility] [address] [id number] [place] [address]- 0803 Oct, [facility] [place] [facility] [address] [id number] [place] [address]- 8985 Oct, [facility] [place] [facility] [address] [id number] [place] [address] Oct, [facility] [place] [facility] [address] [id number] [place] [address]- 6458 Oct, [facility] [place] [facility] [address] [id number] [place] [address]- 5732 Oct, [facility] [place] [facility] [address] [id number] [place] [address]- 5374 Oct, [facility] [place] [facility] [address] [id number] [place] [address]- 9504 Oct, [facility] [place] [facility] [address] [id number] [place] [address]- 8240 Oct, [facility] [place] [facility] [address] [id number] [place] [address]- 7746 13 Sep, 2012 [facility] [place] [facility] [address] [id number] [place] [address]- 2507 13 Sep, 2012 [facility] [place] [facility] [address] [id number] [place] [address]- 2710 16 Aug, 2012 [facility] [place] [facility] [address] [id number] [place] [address]- 5803 16 Aug, 2012 [facility] [place] [facility] [address] [id number] [place] [address]- 2358 24 Jul, 2012 [facility] [place] [facility] [address] [id number] [place] [address]- 2282 12 Jul, 2012 [facility] [place] [facility] [address] [id number] [place] [address]- 0682 Jun, [facility] [place] [facility] [address] [id number] [place] [address]- 8286 Jun, [facility] [place] [facility] [address] [id number] [place] [address]- 5536 Jun, [facility] [place] [facility] [address] [id number] [place] [address]- 4446 Jun, [facility] [place] [facility] [address] [id number] [place] [address]- 6386 May, [facility] [place] [facility] [address] [id number] [place] [address]- 5626 May, [facility] [place] [facility] [address] [id number] [place] [address]- 0409 May, [facility] [place] [facility] [address] [id number] [place] [address]- 3788 May, [facility] [place] [facility] [address] [id number] [place] [address]- 1653 May, [facility] [place] [facility] [address] [id number] [place] [address]- 6557 May, [facility] [place] [facility] [address] [id number] [place] [address]- 2643 Apr, [facility] [place] [facility] [address] [id number] [place] [address]- 0626 March, [facility] [place] [facility] [address] [id number] [place] [address]- 1271 March, [facility] [place] [facility] [address] [id number] [place] [address]- 3802 Feb, [facility] [place] [facility] [address] [id number] [place] [address]- 3313 Feb, [facility] [place] [facility] [address] [id number] [place] [address]- 4261 Feb, [facility] [id number] [address]- 1163 Feb, [facility] [address] [address]- 1736 Jan, [facility] [id number] [address]- 7226 Dec, [facility] [id number] [address]- 3615 Nov, [facility] [address] [address]- 3657 Nov, [facility] [id number] [place] [address]- 8066 Nov, [facility] [id number] [place] [address]- 0254 Oct, [facility] [address] [address]- 5526 Oct, [facility] [address] [address]- 8011 Sep, [facility] [address] [address]- 0229 Sep, [facility] [address] [address]- 9213 Oct, [facility] [address] [address]- 2273 30 Sep, 2010 [facility] [address] [address] Aug, [facility] [address] [address] Aug, IMMUNIZATIONS No Known Immunizations SOCIAL HISTORY Never Assessed REASON FOR VISIT [place] [place] [...]
--- OUTSIDE RECORDS SUMMARY | 2019-03-05 16:39 | XMS REPORT ---
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 May, Active 059146425 Problem Hypokalemia E87.6 March, Active 81964784 Problem SOB (shortness of breath) R06.02 Nov, Active 049132163 Problem CKD (chronic kidney disease) stage 3, GFR 30-59 ml/min N18.3 Apr, Active 187077378 Problem Ulcerative colitis K51.90 Jul, Active 80758880 Problem Hyperlipidemia E78.5 Aug, Active 17324582 Problem Migraine G43.909 Aug, Active 84472567 Problem Diarrhea R19.7 Sep, Active 56641510 Problem Rheumatoid arthritis M06.9 Sep, Active 38593338 Problem Anemia D64.9 Sep, Active 011630956 Problem 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, 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 Active Problem Moderate episode of recurrent major depressive disorder F33.1 Active 396095682 Problem PVC (premature ventricular contraction) I49.3 Nov, Active 66727850 Problem Chronic pain G89.29 Aug, Active 99528473 Problem Essential hypertension I10 Active 36479871 Problem Diastolic dysfunction I51.9 Jan, Active 2034336 Problem Osteoporosis M81.0 Dec, Active 39170651 Problem Generalized abdominal pain R10.84 Sep, Active 259957163 Problem Stage 1 skin ulcer of sacral region L98.429 Active Problem Closed fracture of left distal tibia S82.302A Jan, Active 32809099 Problem Rotator cuff tendonitis M75.80 11 Mar, 2012 Active 725610097 Problem Iron deficiency anemia secondary to inadequate dietary iron intake D50.8 Active 869985847 ALLERGIES No Information ENCOUNTERS Encounter Location Date Diagnosis [facility] [place] [address] [address] Apr, [facility] [address], [place] [address] Jan, [address] [address] Jan, Diastolic dysfunction I51.9 ; Rheumatoid arthritis M06.9 ; Ulcerative colitis K51.90 ; Essential hypertension I10 ; Moderate episode of recurrent major depressive disorder F33.1 and Iron deficiency anemia secondary to inadequate dietary iron intake D50.[address] [address] Jan, [address] [address] Jan, Acute bronchitis, unspecified organism J20.9 and 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 [facility] [id number] [place] [address] Dec, [address] [address] Dec, [facility] [address] [place] [address] Nov, Viral upper respiratory illness J06.9 and Nausea alone R11.0 [facility] [address], [place] [address] Oct, [facility] [id number] [address] Oct, [facility] [id number] [place] [address] Oct, [facility] [id number] [place] [address] Aug, [facility] [id number] [place] [address] March, [facility] [place] [facility] [address] [id number] [place] [address] 14 Feb, 2015 [facility] [place] [facility] [address] [id number] [place] [address] Feb, [facility] [place] [facility] [address] [id number] [place] [address] Jan, [facility] [place] [facility] [address] [id number] [place] [address] Jan, [facility] [place] [facility] [address] [id number] [place] [address] Oct, [facility] [place] [facility] [address] [id number] [place] [address] Oct, [facility] [place] [facility] [address] [id number] [place] [address] Oct, [facility] [place] [facility] [address] [id number] [place] [address] Sep, [facility] [place] [facility] [address] [id number] [place] [address] Sep, [facility] [place] [facility] [address] [facility] [id number] [place] [address] Sep, [facility] [place] [facility] [address] [id number] [place] [address] Sep, [facility] [place] [facility] [address] [id number] [place] [address] 2003 Sep, [facility] [place] [facility] [address] [id number] [place] [address] Aug, [facility] [place] [facility] [address] [id number] [place] [address] Aug, [facility] [place] [facility] [address] [id number] [address] Jul, [facility] [place] [facility] [address] [id number] [place] [address] 26 Jul, 2013 [facility] [place] [facility] [address] [id number] [place] [address] 10 Jul, 2013 [facility] [place] [facility] [address] [id number] [place] [address] Jul, 2013 [facility] [place] [facility] [address] [id number] [place] [address] 08 Jul, 2013 [facility] [place] [facility] [address] [id number] [place] [address] Jul, [facility] [place] [facility] [address] [id number] [place] [address] May, [facility] [place] [facility] [address] [id number] [place] [address] May, [facility] [place] [facility] [address] [id number] [place] [address] May, [facility] [place] [facility] [address] [id number] [place] [address] 74[address] May, [facility] [place] [facility] [address] [id number] [place] [address] May, [facility] [place] [facility] [address] [id number] [place] [address] May, [facility] [place] [facility] [address] [id number] [place] [address] Apr, [facility] [place] [facility] [address] [id number] [place] [address] Apr, [facility] [place] [facility] [address] [id number] [place] [address] Apr, [facility] [place] [facility] [address] [id number] [place] [address] Apr, [facility] [place] [facility] [address] [id number] [place] [address] Apr, [facility] [place] [facility] [address] [id number] [place] [address]- 1004 Apr, [facility] [place] [facility] [address] [id number] [place] [address] Apr, [facility] [place] [facility] [address] [id number] [place] [address] Apr, [facility] [place] [facility] [address] [id number] [place] [address] March, [facility] [place] [facility] [address] [id number] [place] [address]- [address] March, [facility] [place] [facility] [address] [id number] [place] [address] March, [facility] [place] [facility] [address] [id number] [place] [address]- 1149 Feb, [facility] [place] [facility] [address] [id number] [place] [address]- [address] Feb, [facility] [place] [facility] [address] [id number] [place] [address]- [address]279 Feb, [facility] [place] [facility] [address] [id number] [place] [address]- [address] Feb, [facility] [place] [facility] [address] [id number] [place] [address]- [address] Feb, [facility] [place] [facility] [address] [id number] [place] [address]- [address] Feb, [facility] [place] [facility] [address] [id number] [place] [address]- [address] Feb, [facility] [place] [facility] [address] [id number] [place] [address]- 20[address] Feb, [facility] [place] [facility] [address] [id number] [place] [address] Jan, [facility] [place] [facility] [address] [id number] [place] [address]- [address] Jan, [facility] [address] [id number] [place] [id number] Dec, [facility] [place] [facility] [address] [id number] [place] [address]- 8060 Dec, [facility] [address] [id number] [place] [address]- [address] Dec, [facility] [place] [facility] [address] [id number] [place] [address]- 1585 Dec, [facility] [place] [facility] [address] [id number] [place] [address]- 4647 Dec, [facility] [place] [facility] [address] [id number] [place] [address]- 4076 Nov, [facility] [place] [facility] [address] [id number] [place] [address]- 8[address] Nov, [facility] [address] [id number] [place] [address]- 0912 Nov, [facility] [address] [id number] [place] [address]- 20[address] Nov, [facility] [address] [id number] [place] [address] Nov, [facility] [place] [facility] [address] [id number] [place] [address]- 9278 Nov, [facility] [address] [id number] [place] [address]- 0942 Oct, [facility] [place] [facility] [address] [id number] [place] [address]- 8143 Oct, [facility] [place] [facility] [address] [id number] [place] [address]- 4016 Sep, [facility] [place] [facility] [address] [id number] [place] [address]- 4768 Sep, [facility] [place] [facility] [address] [id number] [place] [address]- 9482 Sep, [facility] [place] [facility] [address] [id number] [place] [address]- 3724 Sep, [facility] [place] [facility] [address] [id number] [place] [address]- 1072 Sep, [facility] [place] [facility] [address] [id number] [place] [address]- 3427 Sep, [facility] [place] [facility] [address] [id number] [place] [address]- 0849 Aug, [facility] [place] [facility] [address] [id number] [place] [address]- 8045 Aug, [facility] [place] [facility] [address] [id number] [place] [address]- 4345 May, [facility] [place] [facility] [address] [id number] [place] [address]- 3608 May, [facility] [place] [facility] [address] [id number] [place] [address]- 7572 May, [facility] [place] [facility] [address] [id number], [place] [address]- [address] May, [facility] [place] [facility] [address] [id number] [place] [address]- 2899 Apr, [facility] [place] [facility] [address] [id number], [place] [address]- [address] Feb, [facility] [place] [facility] [address] [id number] [place] [address]- 9048 Jan, [facility] [place] [facility] [address] [id number], [place] [address]- 2166 Nov, [facility] [place] [facility] [address] [id number] [place] [address]- 1032 Nov, [facility] [place] [facility] [address] [id number] [place] [address]- 8820 Nov, [facility] [address] [id number] [place] [address]- 0914 Nov, [facility] [place] [facility] [address] [id number] [place] [address]- 4215 Oct, [facility] [place] [facility] [address] [id number] [place] [address]- 7231 Oct, [facility] [place] [facility] [address] [id number] [place] [address] Oct, [facility] [place] [facility] [address] [id number] [place] [address]- 9761 Oct, [facility] [place] [facility] [address] [id number] [place] [address]- 2457 Oct, [facility] [place] [facility] [address] [id number] [place] [address]- 9215 Oct, [facility] [place] [facility] [address] [id number] [place] [address]- 8663 Oct, [facility] [place] [facility] [address] [id number] [place] [address]- 9415 Oct, [facility] [place] [facility] [address] [id number] [place] [address]- 0994 13 Sep, 2012 [facility] [place] [facility] [address] [id number] [place] [address]- 1102 13 Sep, 2012 [facility] [place] [facility] [address] [id number] [place] [address]- 5879 16 Aug, 2012 [facility] [place] [facility] [address] [id number] [place] [address]- 6918 16 Aug, 2012 [facility] [place] [facility] [address] [id number] [place] [address]- 8462 24 Jul, 2012 [facility] [place] [facility] [address] [id number] [place] [address]- 6499 12 Jul, 2012 [facility] [place] [facility] [address] [id number] [place] [address]- 5213 Jun, [facility] [place] [facility] [address] [id number] [place] [address]- 3786 Jun, [facility] [place] [facility] [address] [id number] [place] [address]- 9166 Jun, [facility] [place] [facility] [address] [id number] [place] [address]- 3606 Jun, [facility] [place] [facility] [address] [id number] [place] [address]- 7398 May, [facility] [place] [facility] [address] [id number] [place] [address]- 3866 May, [facility] [place] [facility] [address] [id number] [place] [address]- 0731 May, [facility] [place] [facility] [address] [id number] [place] [address]- 3767 May, [facility] [place] [facility] [address] [id number] [place] [address]- 6656 May, [facility] [place] [facility] [address] [id number] [place] [address]- 4127 May, [facility] [place] [facility] [address] [id number] [place] [address]- 3471 Apr, [facility] [place] [facility] [address] [id number] [place] [address]- 0701 March, [facility] [place] [facility] [address] [id number] [place] [address]- 4955 March, [facility] [place] [facility] [address] [id number] [place] [address]- 0204 Feb, [facility] [place] [facility] [address] [id number] [place] [address]- 5043 Feb, [facility] [place] [facility] [address] [id number] [place] [address]- 7842 Feb, [facility] [address] [id number], [place] [address]- [address] Feb, [facility] [address], [place] [address]- 68[address] Jan, [facility] [address], [place] [address]- 8436 Dec, [facility] [address], [place] [address]- [address]36 Nov, [facility] [address], [place] [address]- 3715 Nov, [facility] [id number] [place] [address]- 9449 Nov, [facility] [id number] [place] [address]- 5183 Oct, [facility] [address], [place] [address]- 1341 Oct, [facility] [address], [place] [address]- 7488 Sep, [facility] [address], [place] [address]- 9458 Sep, [facility] [address] [address] Oct, [facility] [address], [place] [address]- 4[address] 30 Sep, 2010 [facility] [address] Aug, [facility] [address] Aug, IMMUNIZATIONS No Known Immunizations SOCIAL HISTORY Never Assessed REASON FOR VISIT EMR[facility] PLAN OF CARE VITAL SIGNS MEDICATIONS Medication Instructions Dosage Frequency Start Date End Date Duration Status Alprazolam 0.25 mg 1 Tablet by Oral route 3 times per day PRN anxiety Sep, Active Hydrocodone-Acetaminophen 5-325 mg take 1 tablet by Oral route every 4 hours as needed for pain Jul, Active Toprol XL 25 mg 1 Tablet by Oral route 1 time per day qAM Feb, Active Namenda 5 mg 1 Tablet by Oral route 2 times per day Sep, Active Phenergan with Codeine 10 mg-6.25 mg/5 mL SI mL orally every 4 hours for 5 day(s) Nov, Active Viibryd 10 mg 1 Tablet by Oral route 1 time per day for 14 days Take 20 mg po qd X 7 days, then 10 mg qd X 7 days, then D/C Viibryd Feb, Active Clindamycin HCl 300 mg 1 capsule by Oral route every 8 hours for 10 day(s) May, Active Flexeril 10 mg 1 Tablet by Oral route 2 times per day May, Active Protonix 40 mg 1 Tablet by Oral route 1 time per day May, Active Keflex 500 mg 1 Capsule by Oral route 2 times per day for 7 days May Active Synthroid 75 mcg 1 Tablet by Oral route 1 time per day May, Active Folic Acid 1 mg 1 Tablet by Oral route 1 time per day May, Active Neurontin 300 mg 1 Capsule by Oral route 1 time per day May, Active Vitamin D3 by Oral route May, Active Klor-Con M20 20 mEq 1 Tablet by Oral route 1 time per day May, Active Abilify 15 mg 1 tablet by Oral route 1 time per day Aug, Active Ultram 50 mg 2 Tablet by Oral route 2 times per day May, Active Brintellix 5 mg take 1 Tablet by Oral route 1 time per day Sep, Active Ambien 10 mg 1 tablet by Oral route 1 time per day PRN Apr, Active Imitrex 100 mg 1 tablet by Oral route 1 time per day PRN migraine Jul, Active RESULTS No Results PROCEDURES No Known procedures INSTRUCTIONS MEDICATIONS ADMINISTERED No Known Medications MEDICAL (GENERAL) HISTORY Type Description Date Medical History Ulcerative colitis Medical History Rheumatoid arthritis Medical History Osteoporosis Medical History Neuropathy Medical History Irritable bowel syndrome Medical History Hypothyroidism Medical History Hypertension Medical History Dementia Medical History Anxiety Medical History Bipolar disorder Surgical History cholecystectomy Surgical History heart cath - Stephenie Jim[facility] 03/2018 Surgical History hysterectomy Surgical History hernia repair Surgical History tonsillectomy
--- OUTSIDE RECORDS SUMMARY | 2019-03-05 16:41 | XMS REPORT | Continuity of Care Document ---
Author Organization Unknown Address Unknown Allergies Active Description Code Type Severity Reaction Onset Reported/Identified Relationship to Patient Clinical Status Yes SULFAMETHOXAZOLE-TRIMETHOPRIM SULFAMETHOXAZOLE-TRI SEVERE Yes SULFAMETHOXAZOLE-TRIMETHOPRIM SEVERE DERMATOLOGICAL - NILS Yes sulfa drug Drug Allergy 09/19/2011 Yes Sulfa (Sulfonamide Antibiotics) [id number] Drug Allergy Unknown N/A 2014 Medications Medication [...] 20 MG/2CC (PEPCID VIAL) MG 07/23/2017 07/30/2017 BID&08,1999 Memantine oral tablet 5mg (NAMENDA) Dose(s) 07/23/2017 08/02/2017 BID&0800,1999 PRAMIPEXOLE TAB 0.25 MG (MIRAPEX) Dose(s) 07/23/2017 [...] SALINE W/KCL 40MEQ IV (SALINE IV BAG W/[id number]) MLS 01/13/2018 01/20/2018 CONTINUOUSEVERY 0 Hour LACTOBACILLUS BULGARIS TAB (LACTINEX BULGARIS) tab 01/13/2018 01/23/2018 QID&0800,1200,1700,2200 METOPROLOL TAB 25 MG (LOPRESSOR) MG 01/13/2018 01/13/2018 ONCE&1215 NORMAL SALINE W/KCL 40MEQ IV (SALINE IV BAG W/[id number]) MLS 01/13/2018 01/20/2018 CONTINUOUSEVERY 0 Hour NORMAL SALINE W/KCL 40MEQ IV (SALINE IV BAG W/[id number]) MLS 01/14/2018 01/21/2018 CONTINUOUSEVERY 0 Hour MESALAMINE [...] TAB 20 MEQ (K-DUR) Dose(s) 02/03/2018 02/10/2018 BID&0800,1999 Aripiprazole oral tablet 5mg (Abilify) Dose(s ) 02/03/2018 03/04/2018 QPM&1999 GABAPENTIN CAP 100 MG (NEURONTIN) Dose(s) 02/03/2018 02/09/2018 QHS&2099 GABAPENTIN CAP 300 MG (NEURONTIN) Dose(s) 02/03/2018 02/09/2018 QHS&2100 TRAZODONE TAB 50 MG (DESYREL) Dose(s) 02/03/2018 [...] 07/28/2010 295.70 P SCHIZO AFFECTIVE 07/28/2010 ESPITIA RELAY ENGINEER, SAMARA BANGURAH 295.70 P SCHIZO AFFECTIVE 07/28/2010 ESPITIA RELAY ENGINEER, SAMARA BANGURAH 295.70 P SCHIZO AFFECTIVE 07/28/2010 295.70 P SCHIZO AFFECTIVE 07/28/2010 295.70 P SCHIZO AFFECTIVE 07/28/2010 ANDER GRANT DO 295.70 P SCHIZO AFFECTIVE 07/28/2010 ESPITIA RELAY ENGINEER, SAMARA BANGURAH 295.70 P SCHIZO AFFECTIVE 07/28/2010 ESPITIA RELAY ENGINEER, SAMARA BANGURAH 295.70 P SCHIZO AFFECTIVE 07/28/2010 ESPITIA RELAY ENGINEER, SAMARA BANGURAH 295.70 P SCHIZO AFFECTIVE 07/28/2010 ESPITIA RELAY ENGINEER, SAMARA BANGURAH 295.70 P SCHIZO AFFECTIVE 07/28/2010 ESPITIA RELAY ENGINEER, SAMARA BANGURAH 295.70 P SCHIZO AFFECTIVE 07/28/2010 ESPITIA RELAY ENGINEER, SAMARA KEVIN 295.70 P SCHIZO AFFECTIVE 07/28/2010 ESPITIA RELAY ENGINEER, SAMARA KEVIN 295.70 P SCHIZO AFFECTIVE 07/28/2010 MICHELLE COLEY 295.70 P SCHIZO AFFECTIVE 11/06/2011 465.9 UPPER RESPIRATORY INFECTION 11/06/2011 V65.42 COUNSELING - SMOKING CESSATION 11/06/2011 NUPUR ALBERT SAMARA BROWN 465.9 UPPER RESPIRATORY INFECTION 11/06/2011 ESPITIA ROOSEVELT SAMARA BANGURAH V65.42 COUNSELING - SMOKING CESSATION 11/06/2011 NUPUR ALBERT SAMARA KEVIN 465.9 UPPER RESPIRATORY INFECTION 11/06/2011 NUPUR ALBERT SAMARA BANGURAH V65.42 COUNSELING - SMOKING CESSATION 11/06/2011 465.9 UPPER RESPIRATORY INFECTION 11/06/2011 V65.42 COUNSELING - SMOKING CESSATION 11/06/2011 465.9 UPPER RESPIRATORY INFECTION 11/06/2011 V65.42 COUNSELING - SMOKING CESSATION 11/06/2011 ANDER GRANT DO 465.9 UPPER RESPIRATORY INFECTION 11/06/2011 ANDER GRANT DO V65.42 COUNSELING - SMOKING CESSATION 11/06/2011 NUPUR ALBERT SAMARA BROWN 465.9 UPPER RESPIRATORY INFECTION 11/06/2011 NUPUR ALBERT SAMARA BANGURAH V65.42 COUNSELING - SMOKING CESSATION 11/06/2011 ESPITIA RELAY ENGINEER, SAMARA BROWN 465.9 UPPER RESPIRATORY INFECTION 11/06/2011 ESPITIA RELAY ENGINEER, SAMARA BROWN V65.42 COUNSELING - SMOKING CESSATION 11/06/2011 ESPITIA RELAY ENGINEER, SAMARA BANGURAH 465.9 UPPER RESPIRATORY INFECTION 11/06/2011 ESPITIA RELAY ENGINEER, SAMARA BROWN V65.42 COUNSELING - SMOKING CESSATION 11/06/2011 ESPITIA RELAY ENGINEER, SAMARA BANGURAH 465.9 UPPER RESPIRATORY INFECTION 11/06/2011 ESPITIA RELAY ENGINEER, SAMARA BROWN V65.42 COUNSELING - SMOKING CESSATION 11/06/2011 ESPITIA RELAY ENGINEER, SAMARA BROWN 465.9 UPPER RESPIRATORY INFECTION 11/06/2011 ESPITIA RELAY ENGINEER, SAMARA BROWN V65.42 COUNSELING - SMOKING CESSATION 11/06/2011 ESPITIA RELAY ENGINEER, SAMARA BROWN 465.9 UPPER RESPIRATORY INFECTION 11/06/2011 ESPITIA RELAY ENGINEER, SAMARA BRONW V65.42 COUNSELING - SMOKING CESSATION 11/06/2011 ESPITIA RELAY ENGINEER, SAMARA BROWN 465.9 UPPER RESPIRATORY INFECTION 11/06/2011 ESPITIA RELAY ENGINEER, SAMARA BROWN V65.42 COUNSELING - SMOKING CESSATION 11/06/2011 RONALD ANESTHESIA RESIDENT, MICHELLE M 465.9 UPPER RESPIRATORY INFECTION 11/06/2011 RONALD ANESTHESIA RESIDENT, MICHELLE M V65.42 COUNSELING - SMOKING CESSATION 11/10/2011 466.0 BRONCHITIS, ACUTE 11/10/2011 ESPITIA RELAY ENGINEER, SAMARA BROWN 466.0 BRONCHITIS, ACUTE 11/10/2011 ESPITIA RELAY ENGINEER, SAMARA BROWN 466.0 BRONCHITIS, ACUTE 11/10/2011 466.0 BRONCHITIS, ACUTE 11/10/2011 466.0 BRONCHITIS, ACUTE 11/10/2011 ANDER GRANT DO 466.0 BRONCHITIS, ACUTE 11/10/2011 ESPITIA RELAY ENGINEER, SAMARA BANGURAH 466.0 BRONCHITIS, ACUTE 11/10/2011 ESPITIA RELAY ENGINEER, SAMARA KEVIN 466.0 BRONCHITIS, ACUTE 11/10/2011 ESPITIA RELAY ENGINEER, SAMARA BANGURAH 466.0 BRONCHITIS, ACUTE 11/10/2011 ESPITIA RELAY ENGINEER, SAMARA KEVIN 466.0 BRONCHITIS, ACUTE 11/10/2011 ESPITIA RELAY ENGINEER, SAMARA KEVIN 466.0 BRONCHITIS, ACUTE 11/10/2011 ESPITIA RELAY ENGINEER, SAMARA KEVIN 466.0 BRONCHITIS, ACUTE 11/10/2011 ESPITIA RELAY ENGINEER, SAMARA KEVIN 466.0 BRONCHITIS, ACUTE 11/10/2011 RONALD DYSON, MICHELLE M 466.0 BRONCHITIS, ACUTE 06/03/2013 ANDER GRANT DO 894.0 WOUND OPEN LOWER LIMB 06/03/2013 ESPITIA RELAY ENGINEER, SAMARA KEVIN 894.0 WOUND OPEN LOWER LIMB 06/03/2013 ESPITIA RELAY ENGINEER, SAMARA KEVIN 894.0 WOUND OPEN LOWER LIMB 06/03/2013 ESPITIA RELAY ENGINEER, SAMARA KEVIN 894.0 WOUND OPEN LOWER LIMB 06/03/2013 ESPITIA RELAY ENGINEER, SAMARA KEVIN 894.0 WOUND OPEN LOWER LIMB 06/03/2013 ESPITIA RELAY ENGINEER, SAMARA KEVIN 894.0 WOUND OPEN LOWER LIMB 06/03/2013 ESPITIA RELAY ENGINEER, SAMARA KEVIN 894.0 WOUND OPEN LOWER LIMB 06/03/2013 ESPITIA RELAY ENGINEER, SAMARA KEVIN 894.0 WOUND OPEN LOWER LIMB 06/03/2013 MICHELLE COLEY 894.0 WOUND OPEN LOWER LIMB 09/15/2013 SEPITIA RELAY ENGINEER, SAMARA KEVIN 294.20 DEMENTIA UNSPECIFIED WITHOUT BEHAVIORAL DISTURBANCE 09/15/2013 ESPITIA RELAY ENGINEER, SAMARA KEVIN 294.20 DEMENTIA UNSPECIFIED WITHOUT BEHAVIORAL DISTURBANCE 09/15/2013 ESPITIA RELAY ENGINEER, SAMARA KEVIN 294.20 DEMENTIA UNSPECIFIED WITHOUT BEHAVIORAL DISTURBANCE 09/15/2013 ESPITIA RELAY ENGINEER, SAMARA KEVIN 294.20 DEMENTIA UNSPECIFIED WITHOUT BEHAVIORAL DISTURBANCE 09/15/2013 ESPITIA RELAY ENGINEER, SAMARA KEVIN 294.20 DEMENTIA UNSPECIFIED WITHOUT BEHAVIORAL DISTURBANCE 09/15/2013 ESPITIA RELAY ENGINEER, SAMARA KEVIN 294.20 DEMENTIA UNSPECIFIED WITHOUT BEHAVIORAL DISTURBANCE 09/15/2013 ESPITIA RELAY ENGINEER, SAMARA KEVIN 294.20 DEMENTIA UNSPECIFIED WITHOUT BEHAVIORAL DISTURBANCE 09/15/2013 MICHELLE COLEY M 294.20 DEMENTIA UNSPECIFIED WITHOUT BEHAVIORAL DISTURBANCE 09/30/2014 MICHELLE COLEY M 300.00 AN ANXIETY UNSPEC 09/30/2014 MICHELLE COLEY M 311 MO DEPRESS NOS 06/16/2015 SANGEETA ESCALANTE, MUKUL E Ot 244.9 06/16/2015 SANGEETA ESCALANTE, MUKUL E Ot 285.9 06/16/2015 SANGEETA ESCALANTE, MUKUL E Ot 294.9 06/16/2015 SANGEETA ESCALANTE, MUKUL E Ot 401.9 06/16/2015 SANGEETA ESCLAANTE, MUKUL E Ot 530.81 06/16/2015 SANGEETA ESCALANTE, [...] ESCALANTE, MUKUL E Ot 733.00 06/23/2015 SANGEETA ESCALANTE MUKUL E Ot V54.26 06/23/2015 SANGEETA ESCALANTE MUKUL E Ot V57.89 06/26/2015 SANGEETA ESCALANTE MUKUL E Ot 244.9 HYPOTHYROIDISM NOS 06/26/2015 SANGEETA ESCALANTE MUKUL E Ot 273.8 DIS PLAS PROTEIN MET NEC 06/26/2015 SANGEETA ESCALANTE MUKUL E Ot 285.9 ANEMIA NOS 06/26/2015 SANGEETA ESCALANTE, MUKUL E Ot 294.9 UNSPEC 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 06/26/2015 SANGEETA ESCALANTE MUKUL E Ot 401.9 HYPERTENSION NOS 06/26/2015 SANGEETA ESCALANTE MUKUL E Ot 458.9 HYPOTENSION NOS 06/26/2015 SANGEETA ESCLAANTE MUKUL E Ot 530.81 ESOPHAGEAL REFLUX 06/26/2015 SANGEETA ESCALANTE MUKUL E Ot 707.05 PRESSURE ULCER, BUTTOCK 06/26/2015 SANGEETA ESCALANTE MUKUL E Ot 707.22 PRESSURE ULCER, STAGE II 06/26/2015 SANGEETA ESCALANTE, MUKUL E Ot 714.0 RHEUMATOID ARTHRITIS 06/26/2015 SANGEETA ESCALANTE, MUKUL E Ot 726.10 BURSAE TENDONS DIS SHLDER NOS 06/26/2015 SANGEETA ESCALANTE, MUKUL E Ot 729.1 MYALGIA AND MYOSITIS NOS 06/26/2015 SANGEETA ESCALANTE, MUKUL E Ot 733.00 OSTEOPOROSIS NOS 06/26/2015 SANGEETA ESCALANTE, MUKUL E Ot V15.82 HISTORY OF TOBACCO USE 06/26/2015 SANGEETA ESCALANTE MUKUL E Ot V49.72 OTHER TOE(S) AMPUTATION STATUS 06/26/2015 SANGEETA ESCALANTE MUKUL E Ot V54.26 [facility] PATHOLOGIC FX LOWER LE 06/26/2015 SANGEETA ESCALANTE MUKUL E Ot V57.89 REHABILITATION PROC NEC 01/12/2017 Matt Ragland A 428.9 01/12/2017 Matt Ragland A I50.9 HEART FAILURE, UNSPECIFIED 01/12/2017 Matt Ragland W 276.51 DEHYDRATION 01/12/2017 Matt Ragland W E86.0 DEHYDRATION 01/12/2017 Matt Ragland W 558.9 OTHER AND UNSPECIFIED NONINFECTIOUS GASTROENTERITIS AND COLITIS 01/12/2017 Ghanshyam Raglandn-Miranda W K52.9 NONINFECTIVE GASTROENTERITIS AND COLITIS, UNSPECIFIED 01/13/2017 Ragland, Marie-Miranda W 584.9 ACUTE KIDNEY FAILURE, UNSPECIFIED 01/13/2017 Ralgand, Marie-Miranda W N17.9 ACUTE KIDNEY FAILURE, UNSPECIFIED [...] IN RIGHT HIP 06/14/2017 AMPARO ESCALANTE, RENU B Ot M41.26 OTHER [...] WHITE BLOOD CELL COUNT, UNSPECIFIED 07/25/2017 Benoit, Lornea A E86.0 DEHYDRATION 07/25/2017 Benoit, Lorena W M06.9 RHEUMATOID ARTHRITIS, UNSPECIFIED 07/25/2017 Benoit, Lorena W R11.2 NAUSEA WITH VOMITING, UNSPECIFIED 11/17/2017 Jean Wallace A 276.51 DEHYDRATION 11/17/2017 Jean Wallace W [...] SITE 01/17/2018 Benoit, Lorena W 244.9 01/17/2018 [facility], [place] W 272.4 01/17/2018 [facility], Lorena A 276.51 01/17/2018 [facility], Lorena W 276.8 HYPOPOTASSEMIA 01/17/2018 [facility], Lorena W 296.20 01/17/2018 [facility], Lorena W 357.9 01/17/2018 [facility], Lorena W 401.0 01/17/2018 [facility], Lorena W 558.9 OTHER AND UNSPECIFIED NONINFECTIOUS GASTROENTERITIS AND COLITIS 01/17/2018 [facility], Lorena W 714.0 01/17/2018 [facility], Lorena W 719.45 01/17/2018 [facility], Lorena W 787.91 DIARRHEA 01/17/2018 [facility], Lorena W 791.9 01/17/2018 [facility], Lorena W A49.3 MYCOPLASMA INFECTION, UNSPECIFIED SITE 01/17/2018 [facility], Lorena W B96.0 01/17/2018 [facility], Lorena W E03.9 HYPOTHYROIDISM, UNSPECIFIED 01/17/2018 [facility], Lorena W E78.5 01/17/2018 [facility], Lorena A E86.0 DEHYDRATION 01/17/2018 [facility], Lorena W E87.6 HYPOKALEMIA 01/17/2018 [facility], Lorena W F32.9 01/17/2018 [facility], [place]orena W G62.9 POLYNEUROPATHY, UNSPECIFIED 01/17/2018 [facility], Lorena W I10 01/17/2018 [facility], [place]orena W K52.9 NONINFECTIVE GASTROENTERITIS AND COLITIS, UNSPECIFIED 01/17/2018 [facility], [place]orena W M06.9 01/17/2018 [facility], Lorena W M25.551 PAIN IN RIGHT HIP 01/17/2018 [facility], Lorena W R19.7 DIARRHEA, UNSPECIFIED 01/17/2018 [facility], [place]orena W R82.99 OTHER ABNORMAL FINDINGS IN URINE 02/04/2018 Bruce Stoner 285.9 ANEMIA, UNSPECIFIED 02/04/2018 Bruce Stoner 401.0 MALIGNANT ESSENTIAL HYPERTENSION 02/04/2018 Bruce Stoner 562.12 DIVERTICULOSIS OF COLON WITH HEMORRHAGE 02/04/2018 Bruce Stoner 787.7 ABNORMAL FECES 02/04/2018 Paoni, Bruce A 787.91 DIARRHEA 02/04/2018 Bruce Stoner D64.9 ANEMIA, UNSPECIFIED 02/04/2018 Bruce Stoner I10 ESSENTIAL (PRIMARY) HYPERTENSION 02/04/2018 Bruce Stoner K57.30 DVRTCLOS OF LG INT W/O PERFORATION OR ABSCESS W/O BLEEDING 02/04/2018 Bruce Stoner R19.5 OTHER FECAL ABNORMALITIES 02/04/2018 Bruce Stoner R19.7 DIARRHEA, UNSPECIFIED 02/11/2018 Jac Vanessa A 530.81 02/11/2018 Jac Vanessa 535.50 UNSPECIFIED GASTRITIS [...] 428.9 HEART FAILURE, UNSPECIFIED 02/12/2018 GISELA HIGGINBOTHAM D64.9 ANEMIA, UNSPECIFIED 02/12/2018 GISELA HIGGINBOTHAM A E16.2 HYPOGLYCEMIA, UNSPECIFIED 02/12/2018 GISELA HIGGINBOTHAM W E87.6 HYPOKALEMIA 02/12/2018 GISELA HIGGINBOTHAM W I10 ESSENTIAL (PRIMARY) HYPERTENSION 02/12/2018 GISELA HIGGINBOTHAM W I50.9 HEART FAILURE, UNSPECIFIED 04/10/2018 Mac Madden W 357.9 UNSPECIFIED INFLAMMATORY AND TOXIC NEUROPATHIES 04/10/2018 Judy Maddenj W 401.0 MALIGNANT ESSENTIAL HYPERTENSION 04/10/2018 Judy Maddenj W 428.9 HEART FAILURE, UNSPECIFIED 04/10/2018 Judy Maddenj W 707.05 PRESSURE ULCER, BUTTOCK 04/10/2018 Judy Maddenj A 707.15 04/10/2018 Mac Madden W G62.9 POLYNEUROPATHY, UNSPECIFIED 04/10/2018 Mac Madden W I10 ESSENTIAL (PRIMARY) HYPERTENSION 04/10/2018 Mac Madden W I50.9 HEART FAILURE, UNSPECIFIED 04/10/2018 Mac Madden W L89.322 PRESSURE ULCER OF LEFT BUTTOCK, STAGE 2 04/10/2018 Mac Madden A L97.511 NON-PRS CHRONIC ULCER OTH PRT R FOOT LIMITED TO BRKDWN SKIN 04/10/2018 ChanoTapanMac W V58.30 ENCOUNTER FOR CHANGE OR REMOVAL OF NONSURGICAL WOUND DRESSING 04/10/2018 Chano Mac W Z48.00 ENCOUNTER FOR CHANGE OR REMOVAL OF NONSURG WOUND DRESSING 07/26/2018 W 715.11 OSTEOARTHROSIS, LOCALIZED, PRIMARY, INVOLVING SHOULDER REGION 07/26/2018 W M19.012 PRIMARY OSTEOARTHRITIS, LEFT SHOULDER 08/01/2018 Jean Wallace 719.41 PAIN IN JOINT INVOLVING SHOULDER REGION 08/01/2018 Jean Wallace 780.8 GENERALIZED HYPERHIDROSIS 08/01/2018 Jean Wallace 785.0 TACHYCARDIA, UNSPECIFIED 08/01/2018 Jean Wallace A 786.50 UNSPECIFIED CHEST PAIN 08/01/2018 Jean Wallace 787.02 NAUSEA ALONE 08/01/2018 Gossman, Jean W M25.512 PAIN IN LEFT SHOULDER 08/01/2018 Jean Wallace R00.0 TACHYCARDIA, UNSPECIFIED 08/01/2018 Jean Wallace A R07.9 CHEST PAIN, UNSPECIFIED 08/01/2018 Jean Wallace W R11.0 NAUSEA 08/01/2018 Jean Wallace R61 GENERALIZED HYPERHIDROSIS 08/04/2018 Jacqui Lewis W 338.2 CHRONIC PAIN 08/04/2018 Jacqui Lewis A 724.5 BACKACHE, UNSPECIFIED 08/04/2018 Jacqui Lewis W 787.02 NAUSEA ALONE 08/04/2018 Jacuqi Lewis W G89.29 OTHER CHRONIC PAIN 08/04/2018 Jacqui Lewis A M54.9 DORSALGIA, UNSPECIFIED 08/04/2018 Jacqui Lewis W R11.0 NAUSEA 08/05/2018 W 715.11 OSTEOARTHROSIS, LOCALIZED, PRIMARY, INVOLVING SHOULDER REGION 08/05/2018 W M19.012 PRIMARY OSTEOARTHRITIS, LEFT SHOULDER 08/16/2018 Gianni Gibson A 844.9 SPRAIN OF UNSPECIFIED SITE OF KNEE AND LEG 08/16/2018 Gianni Gibson W 922.31 CONTUSION OF BACK 08/16/2018 Gianni Gibson W S30.0XXA CONTUSION OF LOWER BACK AND PELVIS, INITIAL ENCOUNTER 08/16/2018 Gianni Gibson S83.91XA SPRAIN OF UNSPECIFIED SITE OF RIGHT KNEE, INITIAL ENCOUNTER 08/29/2018 LION ESCALANTE, YURI Ot K52.839 MICROSCOPIC COLITIS, UNSPECIFIED 08/29/2018 AMPARO ESCALANTE, RENU Bañuelos Ot M25.551 PAIN IN RIGHT HIP 08/29/2018 AMPARO ESCALANTE, RENU B Ot M41.26 OTHER IDIOPATHIC SCOLIOSIS, LUMBAR REGIO 08/29/2018 AMPARO ESCALANTE, RENU B Ot M51.36 OTHER INTERVERTEBRAL DISC DEGENERATION, 08/29/2018 GREG ESCALANTE, KIRSTIN Villeda Ot E03.9 HYPOTHYROIDISM, UNSPECIFIED 08/29/2018 GREG ESCALANTE, KIRSTIN Villeda Ot K21.9 GASTRO-ESOPHAGEAL REFLUX DISEASE WITHOUT 08/29/2018 GREG ESCALANTE, KIRSTIN Villeda Ot L03.115 CELLULITIS OF RIGHT LOWER LIMB 08/29/2018 GREG ESCALANTE, KIRSTIN Villeda Ot M81.0 AGE-RELATED OSTEOPOROSIS W/O CURRENT PAT 08/29/2018 GREG ESCALANTE, KIRSTIN Villeda Ot Z87.01 PERSONAL HISTORY OF PNEUMONIA (RECURRENT 08/29/2018 GREG ESCALANTE, KIRSTIN Villeda Ot Z88.2 ALLERGY STATUS TO SULFONAMIDES STATUS 09/28/2018 LION ESCALANTE, YURI Ot K52.839 MICROSCOPIC COLITIS, UNSPECIFIED 09/28/2018 AMPARO ESCALANTE, RENU Bañuelos Ot M25.551 PAIN IN RIGHT HIP 09/28/2018 AMPARO ESCALANTE, REUN Bañuelos Ot M41.26 OTHER IDIOPATHIC SCOLIOSIS, LUMBAR REGIO 09/28/2018 AMPARO ESCALANTE, RENU Bañuelos Ot M51.36 OTHER INTERVERTEBRAL DISC DEGENERATION, 09/28/2018 DEONNA MOBLEY APRN Ot E03.9 HYPOTHYROIDISM, UNSPECIFIED 09/28/2018 DEONNA MOBLEY APRN Ot I10 ESSENTIAL (PRIMARY) HYPERTENSION 09/28/2018 DEONNA MOBLEY APRN Ot J02.9 ACUTE PHARYNGITIS, UNSPECIFIED 09/28/2018 DEONNA MOBLEY APRN Ot K21.9 GASTRO-ESOPHAGEAL REFLUX DISEASE WITHOUT 09/28/2018 DEONNA MOBLEY APRN Ot M06.9 RHEUMATOID ARTHRITIS, UNSPECIFIED 09/28/2018 DEONNA MOBLEY APRN Ot M81.0 AGE-RELATED OSTEOPOROSIS W/O CURRENT PAT 09/28/2018 DEONNA MOBLEY APRN Ot Z87.01 PERSONAL HISTORY OF PNEUMONIA (RECURRENT 09/28/2018 DEONNA MOBLEY APRN Ot Z87.19 PERSONAL HISTORY OF OTHER DISEASES OF TH 09/28/2018 DEONNA MOBLEY APRN Ot Z87.891 PERSONAL HISTORY OF NICOTINE DEPENDENCE 09/28/2018 DEONNA MOBLEY APRN Ot Z88.2 ALLERGY STATUS TO SULFONAMIDES STATUS 09/28/2018 DEONNA MOBLEY APRN Ot Z90.710 ACQUIRED ABSENCE OF BOTH CERVIX AND UTER 09/28/2018 DEONNA MOBLEY APRN Ot Z90.89 ACQUIRED ABSENCE OF OTHER ORGANS 09/28/2018 DEONNA MOBLEY APRN Ot 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 09/28/2018 DEONNA MOBLEY APRN Ot Z98.890 OTHER SPECIFIED POSTPROCEDURAL STATES 10/01/2018 DEONNA MOBLEY APRN Ot E03.9 HYPOTHYROIDISM, UNSPECIFIED 10/01/2018 DEONNA MOBLEY APRN Ot I10 ESSENTIAL (PRIMARY) HYPERTENSION 10/01/2018 DEONNA MOBLEY APRN Ot J02.9 ACUTE PHARYNGITIS, UNSPECIFIED 10/01/2018 DEONNA MOBLEY APRN Ot K21.9 GASTRO-ESOPHAGEAL REFLUX DISEASE WITHOUT 10/01/2018 DEONNA MOBLEY APRN Ot M06.9 RHEUMATOID ARTHRITIS, UNSPECIFIED 10/01/2018 DEONNA MOBLEY APRN Ot M81.0 AGE-RELATED OSTEOPOROSIS W/O CURRENT PAT 10/01/2018 DEONNA MOBLEY APRN Ot Z87.01 PERSONAL HISTORY OF PNEUMONIA (RECURRENT 10/01/2018 DEONNA MOBLEY APRN Ot Z87.19 PERSONAL HISTORY OF OTHER DISEASES OF TH 10/01/2018 DEONNA MOBLEY APRN Ot Z87.891 PERSONAL HISTORY OF NICOTINE DEPENDENCE 10/01/2018 DEONNA MOBLEY APRN Ot Z88.2 ALLERGY STATUS TO SULFONAMIDES STATUS 10/01/2018 DEONNA MOBLEY APRN Ot Z90.710 ACQUIRED ABSENCE OF BOTH CERVIX AND UTER 10/01/2018 DEONNA MOBLEY APRN Ot Z90.89 ACQUIRED ABSENCE OF OTHER ORGANS 10/01/2018 DEONNA MOBLEY APRN Ot 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 10/01/2018 DEONNA MOBLEY APRN Ot Z98.890 OTHER SPECIFIED POSTPROCEDURAL STATES 01/23/2019 Ot J44.9 CHRONIC OBSTRUCTIVE PULMONARY DISEASE, U 01/23/2019 Ot K44.9 DIAPHRAGMATIC HERNIA WITHOUT OBSTRUCTION 01/23/2019 Ot Z87.891 PERSONAL HISTORY OF NICOTINE DEPENDENCE 01/30/2019 Ot J44.9 CHRONIC OBSTRUCTIVE PULMONARY DISEASE, U 01/30/2019 Ot K44.9 DIAPHRAGMATIC HERNIA WITHOUT OBSTRUCTION 01/30/2019 Ot Z87.891 PERSONAL HISTORY OF NICOTINE DEPENDENCE Procedures Code Description [place] [address] PSYCH IND W/MED CK 20 11/13/2011 87614 PSYCH IND W/MED CK 11/18/2012 40331 PSYCH IND W/MED CK 01/24/2013 Results Test Result Range Hemoglobin A1C [...] Urine-pH 5.5 5-8.5 Urine-Protein 2+ Negative Urine-Specific [place]cher >=1.030 1.000-1.030 Urine-WBC 2-5/HPF Urobilinogen 0.2 E.U./dL [...] 1.4 mg/dL 0.2-1.2 TP 6.2 g/dL 6.0-8.3 [facility] - 07/23/17 12:20 Anion Gap 21 6-14 BUN 15 mg/dL 5-25 Calcium 10.0 mg/dL 8.3-10.4 Chloride 99 mmol/L 95-114 CO2 30 mEq/L 22-33 Creat 1.02 mg/dL 0.50-1.50 eGFR 54 mL/min/1.73m2 >59 Glucose 117 mg/dL 70-110 Osmo 305 280-295 Potassium 3.2 mmol/L 3.5-5.3 Sodium 147 mmol/L 134-148 Sed Rate - 07/23/17 12:20 Sed Rate 2 mm/hr 9-15 [facility] - 07/24/17 07:17 Anion Gap 14 [...] 5-8.5 Urine-Protein Negative Negative Urine-RBC Rare/HPF Urine-Specific [place] 1.020 1.000-1.030 Urine-WBC 2-5/HPF Urobilinogen 1.0 E.U./dL [...] 5-8.5 Urine-Protein Trace Negative Urine-RBC Rare/HPF Urine-Specific [place]cher >=1.030 1.000-1.030 Urine-WBC Rare/HPF Urobilinogen 0.2 0.2-1.0 [...] 5-8.5 Urine-Protein 2+ Negative Urine-RBC 0-2/HPF Urine-Specific L[place]cher >=1.030 1.000-1.030 Urine-WBC 2-5/HPF Urobilinogen 1.0 0.2-1.0 [...] 1.2 mg/dL 0.2-1.2 TP 5.0 g/dL 6.0-8.3 [facility] - 01/14/18 06:55 Anion Gap 13 6-14 BUN 6 mg/dL 5-25 Calcium 8.2 mg/dL 8.3-10.4 Chloride 115 mmol/L 95-114 CO2 19 mEq/L 22-33 Creat 0.76 mg/dL 0.50-1.50 eGFR 75 mL/min/1.73m2 >59 Glucose 97 mg/dL 70-110 Osmo 293 280-295 Potassium 3.6 mmol/L 3.5-5.3 Sodium 143 mmol/L 134-148 [facility] - 01/15/18 07:00 Anion Gap 15 6-14 BUN 3 mg/dL 5-25 Calcium 9.2 mg/dL 8.3-10.4 Chloride 115 mmol/L 95-114 CO2 21 mEq/L 22-33 Creat 0.73 mg/dL 0.50-1.50 eGFR 79 mL/min/1.73m2 >59 Glucose 95 mg/dL 70-110 [place] 298 280-295 Potassium 4.5 mmol/L 3.5-5.3 Sodium 146 mmol/L 134-148 [facility] - 01/17/18 08:51 Anion Gap 16 6-14 BUN 4 mg/dL 5-25 Calcium 9.2 mg/dL 8.3-10.4 Chloride 105 mmol/L 95-114 CO2 26 mEq/L 22-33 Creat 0.78 mg/dL 0.50-1.50 eGFR 73 mL/min/1.73m2 >59 Glucose 102 mg/dL 70-110 [place] 292 280-295 Potassium 3.5 mmol/L 3.5-5.3 Sodium 143 mmol/L 134-148 [facility] - 02/03/18 01:20 Anion Gap 13 [...] Negative EKG - 02/03/18 02:20 EKG Complete BMP - 02/03/18 06:35 Anion Gap 15 6-14 [...] 32.5 g/dL 32.0-36.0 MCV 94.4 fL 80.0-97.0 Henry% 10.0 % 0.0-12.0 MPV 10.0 fL 7.4-10.0 Deanna% 53.5 % 37.0-80.0 Plt 175 K/uL 150-400 RBC 3.72 M/uL 3.60-5.00 RDW 14.0 % 11.6-14.8 WBC 3.31 K/uL 5.00-10.00 Deanna 1.77 K/uL 2.00-6.90 Henry 0.3 K/uL 0.0-0.9 Baso 0.0 K/uL 0.0-0.2 Surgical Pathology - 02/11/18 09:35 Surg Path Sent to [facility] Comprehensive Metabolic Panel - 02/12/18 05:21 [...] 5-8.5 Urine-Protein Negative Negative Urine-RBC 0-2/HPF Urine-Specific [place] <=1.005 1.000-1.030 Urine-WBC Negative Urobilinogen 0.2 E.U./dL 0.2-1.0 CBC with Auto Diff - 02/22/18 11:00 Baso% 0.20 % 0.00-2.50 Eos 0.1 K/uL 0.0-0.7 Eos% 1.1 % 0.0-7.0 Hct 34.6 % 36.0-46.0 Hgb 11.1 g/dL 13.0-15.0 Lym 1.70 K/uL 0.60-3.40 Lym% 36.3 % 10.0-50.0 MCH 29.9 pg 27.0-31.0 MCHC 32.1 g/dL 32.0-36.0 MCV 93.3 fL 80.0-97.0 Henry% 15.2 % 0.0-12.0 MPV 11.0 fL 7.4-10.0 Deanna% 47.2 % 37.0-80.0 Plt 252 K/uL 150-400 RBC 3.71 M/uL 3.60-5.00 RDW 13.5 % 11.6-14.8 WBC 4.68 K/uL 5.00-10.00 Deanna 2.21 K/uL 2.00-6.90 Henry 0.7 K/uL 0.0-0.9 Baso 0.0 K/uL 0.0-0.2 [...] - 08/29/18 20:10 Bacterial blood culture NG G Bacterial blood culture - 08/29/18 21:00 Bacterial blood culture NG [facility] Streptococcus pyogenes antigen detection - 09/28/18 18:52 Streptococcus pyogenes antigen detection NEGATIVE NEGATIVE Bacterial throat culture - 09/28/18 18:52 Bacterial throat culture NBS [facility] Complete blood count (CBC) with automated white blood cell (WBC) differential - 09/28/18 18:59 Blood leukocytes automated count (number/volume) 11.9 10*3/uL 4.3-11.0 Blood erythrocytes automated count (number/volume) 4.03 10*6/uL 4.35-5.85 Venous blood hemoglobin measurement (mass/volume) 11.4 g/dL 11.5-16.0 Blood hematocrit (volume fraction) 36 % 35-52 Automated erythrocyte mean corpuscular volume 88 [foz_us] 80-99 Automated erythrocyte mean corpuscular hemoglobin (mass per erythrocyte) 28 pg 25-34 Automated erythrocyte mean corpuscular hemoglobin concentration measurement ( mass/volume) 32 g/dL 32-36 Automated erythrocyte distribution width ratio 14.9 % 10.0-14.5 Automated blood platelet count (count/volume) 280 10*3/uL 130-400 Automated blood platelet mean volume measurement 9.4 [foz_us] 7.4-10.4 Automated blood neutrophils/100 leukocytes 76 % 42-75 Automated blood lymphocytes/100 leukocytes 14 % 12-44 Blood monocytes/100 leukocytes 9 % 0-12 Automated blood eosinophils/100 leukocytes 0 % 0-10 Automated blood basophils/100 leukocytes 0 % 0-10 Blood neutrophils automated count (number/volume) 9.1 10*3 1.8-7.8 Blood lymphocytes automated count (number/volume) 1.7 10*3 1.0-4.0 Blood monocytes automated count (number/volume) 1.1 10*3 0.0-1.0 Automated eosinophil count 0.0 10*3/uL 0.0-0.3 Automated blood basophil count (count/volume) 0.0 10*3/uL 0.0-0.1 Comprehensive metabolic panel - 09/28/18 18:59 Serum or plasma sodium measurement (moles/volume) 142 mmol/L 135-145 Serum or plasma potassium measurement (moles/volume) 3.3 mmol/L 3.6-5.0 Serum or plasma chloride measurement (moles/volume) 105 mmol/L 98-107 Carbon dioxide 22 mmol/L 21-32 Serum or plasma anion gap determination (moles/volume) 15 mmol/L 5-14 Serum or plasma urea nitrogen measurement (mass/volume) 9 mg/dL 7-18 Serum or plasma creatinine measurement (mass/volume) 0.73 mg/dL 0.60-1.30 Serum or plasma urea nitrogen/creatinine mass ratio 12 NRG Serum or plasma creatinine measurement with calculation of estimated glomerular filtration rate > NRG Serum or plasma glucose measurement (mass/volume) 100 mg/dL 70-105 Serum or plasma calcium measurement (mass/volume) 9.8 mg/dL 8.5-10.1 Serum or plasma total bilirubin measurement (mass/volume) 1.3 mg/dL 0.1-1.0 Serum or plasma alkaline phosphatase measurement (enzymatic activity/volume) 138 U/L 40-136 Serum or plasma aspartate aminotransferase measurement (enzymatic activity/ volume) 10 U/L 5-34 Serum or plasma alanine aminotransferase measurement (enzymatic activity/volume ) 7 U/L 0-55 Serum or plasma protein measurement (mass/volume) 7.0 g/dL 6.4-8.2 Serum or plasma albumin measurement (mass/volume) 3.8 g/dL 3.2-4.5 CALCIUM CORRECTED 10.0 mg/dL 8.5-10.1 Serum heterophile antibody titer - 09/28/18 18:59 Serum heterophile antibody titer NEGATIVE NEGATIVE Encounters ACCT No. Visit Date/Time Discharge Status Pt. Type Provider Facility Loc./Unit Complaint [id number] 09/30/2014 16:41:00 09/30/2014 23:59:59 CLS Outpatient RONALD CNS, MICHELLE M [id number] 07/15/2014 13:28:00 07/15/2014 23:59:59 CLS Outpatient ESPITIA RELAY ENGINEERSAMARA [id number] 05/06/2014 09:25:00 05/06/2014 23:59:59 CLS Outpatient ESPITIA RELAY ENGINEERSAMARA Aldrich [id number] 04/06/2014 09:02:00 04/06/2014 23:59:59 CLS Outpatient ESPITIA RELAY ENGINEERSAMARA Aldrich [id number] 02/24/2014 12:55:00 02/24/2014 23:59:59 CLS Outpatient ESPITIA RELAY ENGINEERSAMARA Aldrich [id number] 02/04/2014 13:24:00 02/04/2014 23:59:59 CLS Outpatient ESPITIA SAMARA ALBERT [id number] 11/19/2013 10:21:00 11/19/2013 23:59:59 CLS Outpatient ESPITIA RELAY ENGINEERSAMARA Aldrich [id number] 09/15/2013 09:11:00 09/15/2013 23:59:59 CLS Outpatient ESPITIA RELAY ENGINEERSAMARA Aldrich [id number] 06/03/2013 13:58:00 06/03/2013 23:59:59 CLS Outpatient ANDER GRANT DO [id number] 11/18/2012 13:44:00 11/18/2012 23:59:59 CLS Outpatient ESPITIA RELAY ENGINEERSAMARA Aldrich [id number] 10/17/2012 14:16:00 10/17/2012 23:59:59 CLS Outpatient ESPITIA RELAY ENGINEERSAMARA Aldrich [id number] 11/10/2011 14:31:00 11/10/2011 23:59:59 CLS Outpatient [id number] 04/10/2013 11:20:00 Document Registration [id number] 01/24/2013 13:15:00 Document Registration [id number] 08/16/2018 08:57:00 08/16/2018 10:23:00 DIS Outpatient Gianni Gibson [facility] ER [id number] 08/04/2018 00:35:00 08/04/2018 01:58:00 DIS Outpatient Jacqui Lewis [facility] ER [id number] 08/01/2018 14:00:00 08/01/2018 15:05:00 DIS Outpatient [facility] ER [id number] 07/17/2018 09:16:00 07/17/2018 23:59:00 DIS Outpatient NINO DOMINGUEZ [id number] 01/18/2018 00:00:00 04/10/2018 07:48:00 DIS Outpatient Mac Madden [id number] 02/22/2018 12:04:00 02/22/2018 23:59:00 DIS Outpatient Mac Madden [id number] 02/12/2018 05:09:00 02/12/2018 08:24:00 DIS Outpatient SANDYDEJAJOSELINEGISELA [facility] ER [id number] 02/11/2018 06:58:00 02/11/2018 09:30:00 DIS Outpatient Jac Vanessa [id number] 02/03/2018 00:28:00 02/04/2018 14:40:00 DIS Outpatient Herbie Bruce [facility] MED-SURG [id number] 01/14/2018 08:15:00 01/17/2018 14:00:00 DIS Inpatient [facility] MED-SURG [id number] 11/17/2017 02:01:00 11/17/2017 06:53:00 DIS Outpatient [facility] ER [id number] 07/23/2017 11:33:00 07/25/2017 14:15:00 DIS Outpatient [facility] MED-SURG [id number] 01/12/2017 14:08:00 01/13/2017 13:20:00 DIS Outpatient Obie Matt [id number] 07/19/2018 10:31:21 Document Registration [id number] 01/12/2017 14:50:40 Document Registration [id number] 01/15/2019 13:15:00 01/15/2019 23:59:59 CLS Outpatient MAC MADDEN [facility] [id number] 01/19/2018 04:11:00 Document Registration [id number] 09/28/2018 16:14:00 09/28/2018 20:06:00 DIS Emergency DEONNA MOBLEY APRN [facility] ER SORE THROAT/FEVER [id number] 08/29/2018 19:24:00 08/29/2018 22:02:00 DIS Emergency KIRSTIN GARZA MD [facility] ER R LOWER LEG POSS CELLULITIS [id number] 05/09/2017 12:18:00 05/09/2017 23:59:59 CLS Outpatient AMPARO ESCALANTE, RENU Bañuelos [facility] RAD 4+ [id number] 03/19/2017 09:00:00 03/19/2017 23:59:59 CLS Outpatient YURI SEYMOUR MD [facility] RAD DIARRHEA [id number] 06/10/2015 16:09:00 06/26/2015 11:30:00 DIS Inpatient SANGEETA ESCALANTE, MUKUL Cordova [facility] IRF LRFT TIB FIB FRX [id number] 01/10/2019 09:58:00 Document Registration
[2019-03-05 16:45] LABS: BASOPHILS % (AUTO) 0 % (0-10); EOSINOPHILS % (AUTO) 0 % (0-10); HEMATOCRIT 43 % (35-52); HEMOGLOBIN 13.9 G/DL (11.5-16.0); LYMPHOCYTES # (AUTO) 1.5 X 10^3 (1.0-4.0); LYMPHOCYTES % (AUTO) 26 % (12-44); MEAN CORPUSCULAR HEMOGLOBIN 28 PG (25-34); MEAN CORPUSCULAR HGB CONC 33 G/DL (32-36); MEAN CORPUSCULAR VOLUME 85 FL (80-99); MEAN PLATELET VOLUME 10.6 FL (7.4-10.4); MONOCYTES # (AUTO) 0.5 X 10^3 (0.0-1.0); MONOCYTES % (AUTO) 9 % (0-12); NEUTROPHILS # (AUTO) 3.5 X 10^3 (1.8-7.8); NEUTROPHILS % (AUTO) 64 % (42-75); PLATELET COUNT 237 10^3/uL (130-400); RED CELL DISTRIBUTION WIDTH 16.5 % (10.0-14.5); WHITE BLOOD COUNT 5.5 10^3/uL (4.3-11.0)
--- NOTE | 2019-03-05 16:49 | ED GI ---
General Chief Complaint: Abdominal/GI Problems Stated Complaint: DEHYDRATED Nursing Triage Note: PT AMB TO TRIAGE WITH COMPLAINT OF POSSIBLE DEHYDRATION. PT STATES SHE HAS HAD N/V, ABD PAIN FOR THE LAST THREE DAYS. Sepsis Screen: No Definite Risk Source of Information: Patient Exam Limitations: No Limitations (KIRSTIN GARZA) History of Present Illness Date Seen by Provider: March 05, 2019 Time Seen by Provider: 16:00 Initial Comments Patient presents to ER by private conveyance with chief complaint of fast or 4 days been having some diarrhea and nausea without vomiting and concern she may be getting dehydrated because she's had decreased oral intake. She has a history of ulcerative colitis and for the past 6 months she's been on a new medication but she can't the name from her stitchdown toe former at [place]. She is having only modest abdominal pain and does not want anything for the pain but she would like something for nausea and some IV fluids. She denies fevers or chills. She denies dysuria. She denies abdominal surgeries. (KIRSTIN GARZA) Allergies and Home Medications Allergies Coded Allergies: Sulfa (Sulfonamide Antibiotics) (Verified Allergy, Unknown, 06/10/15) Home Medications Amitriptyline HCl 25 Mg Tablet, 25 MG PO HS, (Reported) Aripiprazole 15 Mg Tablet, 15 MG PO DAILY, (Reported) Cephalexin 500 Mg Tablet, 500 MG PO QID Prescribed by: KIRSTIN GARZA on 08/29/182123 Cephalexin 500 Mg Capsule, 500 MG PO TID Prescribed by: DEONNA MOBLEY on 09/28/181949 Cholecalciferol (Vitamin D3) 1,000 Unit Tablet, 1,000 UNIT PO DAILY, (Reported) Cyclobenzaprine HCl 10 Mg Tablet, 10 MG PO BID, (Reported) Gabapentin 300 Mg Capsule, 300 MG PO BID, (Reported) Hydrocodone Bit/Acetaminophen 1 Each Tablet, 1 EACH PO Q8H PRN for PAIN, ( Reported) Levothyroxine Sodium 75 Mcg Tablet, 75 MCG PO DAILY, (Reported) Memantine HCl 5 Mg Tablet, 5 MG PO BID 5 MG PO Q AM and HS. Prescribed by: BLU QUINONES on 06/10/15 1523 Methotrexate Tablet 2.5 Mg Tablet, 15 MG PO Sunday, (Reported) Metoprolol Tartrate 50 Mg Tablet, 50 MG PO DAILY, (Reported) Nitrofurantoin Monohyd/M-Cryst 100 Mg Capsule, 100 MG PO BID Prescribed by: REGLA CABAN on 03/05/191913 Pantoprazole Sodium 40 Mg Tablet.dr, 40 MG PO DAILY, (Reported) Pantoprazole Sodium 40 Mg Tablet.dr, 40 MG PO DAILY Prescribed by: REGLA CABAN on 03/05/191913 Pramipexole 0.125 Mg Tablet, 0.125 MG PO HS, (Reported) Sucralfate 1 Gm Tablet, 1 GM PO QIDACHS Prescribed by: REGLA CABAN on 03/05/191913 Sumatriptan Succinate 100 Mg Tablet, 0.5 TAB PO PRN PRN for HEADACHE May repeat in 2 hours; Max 200 MG/24 hours. Prescribed by: BLU QUINONES on 06/10/151554 Tramadol HCl 50 Mg Tablet, 50 MG PO BID, (Reported) Vitamin E 400 Unit Capsule, 400 UNIT PO DAILY, (Reported) Vortioxetine Hydrobromide 5 Mg Tablet, 5 MG PO DAILY, (Reported) [Biotin] , 10,000 MCG PO Evening Prescribed by: BLU QUINONES on 06/12/151529 [Folic Acid 1MG] , 2 MG PO DAILY, (Reported) [Iron 65MG] , 65 MG PO Evening Prescribed by: BLU QUINONES on 06/12/151529 [Nitrostat] , 0.4 MG SL UD Q5 min X3 PRN. Prescribed by: BLU QUINONES on 06/10/151554 [Potassium] , 20 MEQ PO BID, (Reported) Patient Home Medication List Home Medication List Reviewed: Yes (REGLA CABAN DO) Review of Systems Review of Systems Constitutional: no symptoms reported Gastrointestinal: See HPI (REGLA CABAN DO) Past Hxqfxrd-Mtkybh-Kswyiv Hx Patient Social History Alcohol Use: Denies Use Recreational Drug Use: No Smoking Status: Former Smoker Former Smoker, Quit: Sep 27, 1997 2nd Hand Smoke Exposure: No Recent Foreign Travel: No Contact w/Someone Who Travel: No Recent Infectious Disease Expo: No Recent Hopitalizations: No (KIRSTIN GARZA) Immunizations Up To Date Tetanus Booster (TDap): Unknown PED Vaccines UTD: Yes Date of Pneumonia Vaccine: Nov 05, 2012 (KIRSTIN GARZA) Seasonal Allergies Seasonal Allergies: Yes (KIRSTIN GARZA) Past Medical History Surgeries: Yes (Bilat cataract removal; Hiatal hernia repair; Prolapsed rectum repair;) Gallbladder, Hysterectomy, Tonsillectomy Respiratory: Yes Pneumonia Cardiac: Yes Hypertension 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: No Genitourinary: No Gastrointestinal: Yes (Ulcerative colitis) Gastroesophageal Reflux Musculoskeletal: No (OA) Osteoporosis, Arthritis, Fibromyalgia, Rheumatoid Arthritis Endocrine: Yes Hypothyroidsim Glaucoma Cancer: No Psychosocial: Yes Integumentary: No Blood Disorders: No (KIRSTIN GARZA) Surgeries: Yes (Bilat cataract removal; Hiatal hernia repair; Prolapsed rectum repair; colon resection) Abdominal, Bowel Surgery Hiatal Hernia Musculoskeletal: Yes (OA) HEENT: Yes ([employer] DO) Physical Exam Vital Signs Vital Signs - First Documented 03/05/19 15:43 Temp 97.7 Pulse 84 Resp 20 B/P (MAP) 129/87 (101) Pulse Ox 98 O2 Delivery Room Air ([employer] Vital Signs Capillary Refill : Less Than 3 Seconds (KIRSTIN GARZA) Height/Weight/BMI Height: 5'2.00" Weight: 130lbs. 11.2oz. 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, no motor/sensory deficits, alert, normal mood/affect, oriented x 3 Skin: normal color, warm/dry ([employer] DO) Progress/Results/Core Measures Results/Orders Lab Results Laboratory Tests Test 03/05/19 16:15 03/05/19 17:20 Range/Units White Blood Count 5.5 4.3-11.0 10^3/uL Red Blood Count 5.02 4.35-5.85 10^6/uL Hemoglobin 13.9 11.5-16.0 G/DL Hematocrit 43 35-52 % Mean Corpuscular Volume 85 80-99 FL Mean Corpuscular Hemoglobin 28 25-34 PG Mean Corpuscular Hemoglobin Concent 33 32-36 G/DL Red Cell Distribution Width 16.5 H 10.0-14.5 % Platelet Count 237 130-400 10^3/uL Mean Platelet Volume 10.6 H 7.4-10.4 FL Neutrophils (%) (Auto) 64 42-75 % Lymphocytes (%) (Auto) 26 12-44 % Monocytes (%) (Auto) 9 0-12 % Eosinophils (%) (Auto) 0 0-10 % Basophils (%) (Auto) 0 0-10 % Neutrophils # (Auto) 3.5 1.8-7.8 X 10^3 Lymphocytes # (Auto) 1.5 1.0-4.0 X 10^3 Monocytes # (Auto) 0.5 0.0-1.0 X 10^3 Eosinophils # (Auto) 0.0 0.0-0.3 10^3/uL Basophils # (Auto) 0.0 0.0-0.1 10^3/uL Sodium Level 144 135-145 MMOL/L Potassium Level 3.9 3.6-5.0 MMOL/L Chloride Level 107 98-107 MMOL/L Carbon Dioxide Level 23 21-32 MMOL/L Anion Gap 14 5-14 MMOL/L Blood Urea Nitrogen 13 7-18 MG/DL Creatinine 0.94 0.60-1.30 MG/DL Estimat Glomerular Filtration Rate 59 BUN/Creatinine Ratio 14 Glucose Level 105 70-105 MG/DL Calcium Level 10.5 H 8.5-10.1 MG/DL Corrected Calcium 10.3 H 8.5-10.1 MG/DL Total Bilirubin 1.1 H 0.1-1.0 MG/DL Aspartate Amino Transf (AST/SGOT) 15 5-34 U/L Alanine Aminotransferase (ALT/SGPT) 10 0-55 U/L Alkaline Phosphatase 137 H 40-136 U/L C-Reactive Protein High Sensitivity 0.09 0.00-0.50 MG/DL Total Protein 6.9 6.4-8.2 GM/DL Albumin 4.3 3.2-4.5 GM/DL Urine Color YELLOW Urine Clarity VERY CLOUDY H Urine pH 7 5-9 Urine Specific [place] 1.010 L 1.016-1.022 Urine Protein 1+ H NEGATIVE Urine Glucose (UA) NEGATIVE NEGATIVE Urine Ketones 3+ H NEGATIVE Urine Nitrite NEGATIVE NEGATIVE Urine Bilirubin NEGATIVE NEGATIVE Urine Urobilinogen NORMAL NORMAL MG/DL Urine Leukocyte Esterase 3+ H NEGATIVE Urine RBC (Auto) NEGATIVE NEGATIVE Urine RBC NONE /HPF Urine WBC 5-10 H /HPF Urine Squamous Epithelial Cells 5-10 /HPF Urine Crystals NONE /LPF Urine Bacteria TRACE /HPF Urine Casts NONE /LPF Urine Mucus NEGATIVE /LPF Urine Culture Indicated YES (REGLA CABAN DO) My Orders Orders - REGLA CABAN DO Ceftriaxone For Iv Use (Rocephin For I (03/05/19 19:15) Pantoprazole Injection (Protonix Injecti (03/05/19 19:15) Ceftriaxone For Iv Use (Rocephin For I (03/05/19 19:12) Water (Sterile) For Injection (Sterile W (03/05/19 19:12) Pantoprazole Injection (Protonix Injecti (03/05/19 19:12) (ERGLA CABAN DO) Medications Given in ED Current Medications Medications Dose Ordered Sig/Mana Route Start Time Stop Time Status Last Admin Dose Admin Ceftriaxone Sodium 1,000 mg STK-MED ONCE .ROUTE 03/05/19 19:12 03/05/19 19:15 DC 03/05/19 19:23 1,000 MG Fentanyl Citrate 50 mcg ONCE ONCE IVP 03/05/19 16:30 03/05/19 16:31 DC 03/05/19 16:37 50 MCG Lactated Ringer's 1,000 ml @ 0 mls/hr Q0M ONCE IV 03/05/19 16:28 03/05/19 16:30 DC 03/05/19 16:37 500 MLS/HR Ondansetron HCl 4 mg ONCE ONCE IVP 03/05/19 16:30 03/05/19 16:31 DC 03/05/19 16:37 4 MG Pantoprazole 40 mg STK-MED ONCE .ROUTE 03/05/19 19:12 03/05/19 19:15 DC 03/05/19 19:21 40 MG Sterile Water 10 ml @ ud STK-MED ONCE .ROUTE 03/05/19 19:12 03/05/19 19:15 DC 03/05/19 19:23 0 MLS/HR (REGLA CABAN DO) Vital Signs/I&O 03/05/19 03/05/19 03/05/19 15:43 16:37 19:50 Temp 97.7 97.7 97.7 Pulse 84 99 Resp 20 17 B/P (MAP) 129/87 (101) 127/60 (82) Pulse Ox 98 98 O2 Delivery Room Air Room Air 03/06/19 00:00 Intake Total 1010 ml Balance 1010 ml (REGLA CABAN DO) Blood Pressure Mean: 101 Progress Progress Note : Time: 18:40 Progress Note Labs are unremarkable. Urinalysis may reveal a UTI. CT pending will pass care over to Dr. Caban (KIRSTIN GARZA) Progress Note : Progress Note 1845--ASSUMED CARE FROM DR. GARZA, CT RESULTS PENDING PT IS PAIN FREE AT THIS TIME PT STATES SHE SEES DR. DONNELLY, NURSING INFORMATICS CLINICAL ANALYST IN [place] (REGLA CABAN DO) Diagnostic Imaging Diagonstic Imaging: CT Plain Films/CT/US/NM/MRI: abdomen, pelvis Reviewed: Reviewed by Me (KIRSTIN GARZA) Comments CT ABDOMEN/PELVIS--LARGE HIATAL HERNIA, THICKENING OF WALL OF GASTRIC ANTRUM-- SUGGESTIVE OF GASTRITIS, OTHERWISE NO ACUTE PROCESS, PER RADIOLOGIST REPORT @ 1900 Reviewed: Reviewed by Me (REGLA CABAN DO) Transfer of Care Time: 18:40 Care transferred to: Dr. Caban (KIRSTIN GARZA) Departure Impression Primary Impression: Gastritis Additional Impressions: Hiatal hernia UTI (urinary tract infection) Disposition: 01 HOME, SELF-CARE Condition: Improved Departure-Patient Inst. Referrals: MAC HANDY MD (PCP/Family) Primary Care Physician Patient Instructions: Gastritis (DC), Hiatal Hernia (DC), Urinary Tract Infection, Adult (DC) Add. Discharge Instructions: CLEAR LIQUIDS--WATER, BROTH, JELLO, GATORADE BRATS DIET--BANANAS, RICE, APPLESAUCE, TOAST, SALTINES FOLLOW UP WITH DR. DONNELLY, NURSING INFORMATICS CLINICAL ANALYST IN A FEW DAYS FOR FURTHER CARE All discharge instructions reviewed with patient and/or family. Voiced understanding. Scripts Sucralfate (Carafate) 1 Gm Tablet 1 GM PO QIDACHS, #60 TAB Prov: REGLA CABAN DO 03/05/19 Pantoprazole Sodium (Protonix) 40 Mg Tablet.dr 40 MG PO DAILY, #15 TAB Prov: REGLA CABAN DO 03/05/19 Nitrofurantoin Monohyd/M-Cryst (Macrobid 100 mg Capsule) 100 Mg Capsule 100 MG PO BID, #20 CAP Prov: REGLA CABAN DO 03/05/19 KIRSTIN GARZA March 05, 2019 16:49 REGLA CABAN DO March 05, 2019 19:14
[2019-03-05 16:56] LABS: ALBUMIN 4.3 GM/DL (3.2-4.5); BILIRUBIN,TOTAL 1.1 MG/DL (0.1-1.0); CALCIUM 10.5 MG/DL (8.5-10.1); CREATININE SERUM 0.94 MG/DL (0.60-1.30); POTASSIUM 3.9 MMOL/L (3.6-5.0); TOTAL PROTEIN 6.9 GM/DL (6.4-8.2)
[2019-03-05 17:33] LABS: BILIRUBIN,URINE NEGATIVE (NEGATIVE); CLARITY,URINE VERY CLOUDY; COLOR,URINE YELLOW; GLUCOSE, URINE (UA) NEGATIVE (NEGATIVE); KETONES,URINE 3+ (NEGATIVE); LEUKOCYTE ESTERASE ,URINE 3+ (NEGATIVE); NITRITE,URINE NEGATIVE (NEGATIVE); PH,URINE 7 (5-9); PROTEIN,URINE 1+ (NEGATIVE); UROBILINOGEN,URINE NORMAL (NORMAL)
[2019-03-05 17:39] LABS: BACTERIA,URINE TRACE /HPF
[2019-03-05] MEDS ORDERED: HOLD METFORMIN - RECEIVED CONTRAST 20 ML VIAL IV SCH (18:00)
[2019-03-05] MEDS ORDERED: IOHEXOL 350 MG/ML 100 ML (OMNIPAQUE 350) VIAL IV ONE (18:00)
--- NOTE | 2019-03-05 18:54 | Diagnostic Imaging Report ---
PROCEDURE: CT abdomen and pelvis with contrast. TECHNIQUE: Multiple contiguous axial images were obtained through the abdomen and pelvis after administration of intravenous contrast. Auto Exposure Controls were utilized during the CT exam to meet ALARA standards for radiation dose reduction. INDICATION: Abdominal pain. COMPARISON: Prior CT of the abdomen and pelvis performed on 08/15/2007. FINDINGS: Mild focal bronchiectasis is demonstrated in the medial basal segment of the right lower lobe, with suggestion of surrounding tree-in-bud opacities. No pleural effusion. The visualized heart is normal in size. The liver, spleen, pancreas, and adrenal glands are normal. The gallbladder is surgically absent. There is unchanged prominence of the common bile duct, likely on the basis of prior cholecystectomy. No evidence of choledocholithiasis. The kidneys enhance symmetrically without evidence of renal calculus or hydronephrosis on either side. No suspicious renal mass is identified. The visualized ureters are normal. There is a large hiatal hernia, not significantly changed from prior exam. There is suggestion of mild wall thickening involving the distal stomach in the region of the antrum. No evidence of bowel wall thickening or obstruction. The patient is status post partial colon resection, with site of anastomosis in the posterior pelvis. No anastomotic abnormality is demonstrated. Scattered diverticula are noted, without evidence of acute diverticulitis. No pneumoperitoneum, abdominal free fluid, or loculated collection is noted. No lymphadenopathy is demonstrated. There is marked calcified atherosclerotic plaque of the abdominal aorta, without aneurysmal dilatation. There is no evidence of venous thrombosis. The bladder is decompressed and not well evaluated. No pelvic free fluid or mass is demonstrated. The abdominal wall is unremarkable. There is severe dextroscoliosis of the lumbar spine with apex at the L2-L3 level. Moderate multilevel degenerative changes of the spine are noted. No acute osseous abnormality is identified. IMPRESSION: Suggestion of thickening involving the distal stomach in the region of the antrum, possibly reflecting gastritis. Otherwise, no acute abdominal or pelvic pathology is identified. The patient is status post partial colon resection, without evidence of anastomotic abnormality. There is mild diverticulosis, without evidence of acute diverticulitis. No significant change in large hiatal hernia. Status post cholecystectomy. Unchanged prominence of the common bile duct, likely on the basis of prior cholecystectomy. Focal bronchiectasis in the medial aspect of the right lower lobe, with surrounding tree-in-bud opacities. Findings are suggestive of an infectious/inflammatory small airways process. Dictated by: Dictated on workstation # [id number]
--- NOTE | 2019-03-05 19:10 | NUR ---
REPORT RECIEVED FROM ISABEL HENAO TO ASSUME CARE OF PT @ THIS TIME.
[2019-03-05] MEDS ORDERED: PANTOPRAZOLE 40 MG (PROTONIX) VIAL ONE (19:12)
[2019-03-05] MEDS ORDERED: WATER (STERILE) FOR INJECTION 10 ML ONE (19:12)
[2019-03-05] MEDS ORDERED: cefTRIAXone 1,000 MG IV (ROCEPHIN) VIAL ONE (19:12)
[2019-03-05] MEDS ORDERED: NITR-65 PO (19:14)
[2019-03-05] MEDS ORDERED: PANT40TA2 PO (19:14)
[2019-03-05] MEDS ORDERED: SUCR1TAB36 PO (19:14)
[2019-03-05] MEDS ORDERED: PANTOPRAZOLE 40 MG (PROTONIX) VIAL IV ONE (19:15)
[2019-03-05] MEDS ORDERED: cefTRIAXone FOR IV USE 1,000 MG in WATER (STERILE) FOR INJECTION 10 ML IV ONE (19:15)
[2019-03-05 19:50] VITALS: BP 127/60
== END 2019-03-05 20:00 | disposition home or self-care (01) ==
LOC: EDUNIT# 15:34 → ER 15:35
DX: K29.70 Gastritis, unspecified, without bleeding (principal); K44.9 Diaphragmatic hernia without obstruction or gangrene; N39.0 Urinary tract infection, site not specified; I10 Essential (primary) hypertension; K21.9 Gastro-esophageal reflux disease without esophagitis; M81.0 Age-related osteoporosis without current pathological fracture; M06.9 Rheumatoid arthritis, unspecified; E03.9 Hypothyroidism, unspecified; Z90.49 Acquired absence of other specified parts of digestive tract; Z88.2 Allergy status to sulfonamides; Z87.19 Personal history of other diseases of the digestive system; Z87.891 Personal history of nicotine dependence; Z90.710 Acquired absence of both cervix and uterus; Z98.890 Other specified postprocedural states; Z90.89 Acquired absence of other organs; Z87.01 Personal history of pneumonia (recurrent)
CPT/HCPCS: 36415; 74177; 80053; 81000; 85025; 86141; 87088

== ENCOUNTER 2019-05-10 18:57 | Emergency (ER) | payer MEDICARE, MEDICAID ==
[~2019-05-10] VITALS: Ht 160 cm; Wt 59.0 kg
[~2019-05-10 18:57] MED LIST changes: +NITR-65 PO; +SUCR1TAB36 PO
--- NOTE | 2019-05-10 19:08 | ED General ---
General Chief Complaint: Head/Cervical Problems Stated Complaint: MIGRAINE Source of Information: Patient Exam Limitations: No Limitations History of Present Illness Date Seen by Provider: May 10, 2019 Time Seen by Provider: 19:05 Initial Comments To ER from EMS from home with reports of a left-sided headache. She states that she has a long-standing history of migraines but this one feels different because it did not go away with a 100 mg dose of Imitrex. She states this began yesterday, she was taken to [facility] last night and given an injection of what she believes was Phenergan, did temporarily help but then returned this afternoon. She has double vision, left temporal pain. She denies fevers chills or head trauma. She also reports drooping of the left eyelid and she states that her father of myasthenia gravis and she suspects she may have this as well. Timing/Duration: 1-2 Days Severity: Moderate Associated Systoms: Headaches Allergies and Home Medications Allergies Coded Allergies: Sulfa (Sulfonamide Antibiotics) (Verified Allergy, Unknown, 06/10/15) Home Medications Amitriptyline HCl 25 Mg Tablet, 25 MG PO HS, (Reported) Aripiprazole 15 Mg Tablet, 15 MG PO DAILY, (Reported) Cephalexin 500 Mg Tablet, 500 MG PO QID Prescribed by: KIRSTIN GARZA on 08/29/182123 Cephalexin 500 Mg Capsule, 500 MG PO TID Prescribed by: DEONNA MOBLEY on 09/28/181949 Cholecalciferol (Vitamin D3) 1,000 Unit Tablet, 1,000 UNIT PO DAILY, (Reported) Cyclobenzaprine HCl 10 Mg Tablet, 10 MG PO BID, (Reported) Gabapentin 300 Mg Capsule, 300 MG PO BID, (Reported) Hydrocodone Bit/Acetaminophen 1 Each Tablet, 1 EACH PO Q8H PRN for PAIN, (Reported) Levothyroxine Sodium 75 Mcg Tablet, 75 MCG PO DAILY, (Reported) Memantine HCl 5 Mg Tablet, 5 MG PO BID 5 MG PO Q AM and HS. Prescribed by: BLU QUINONES on 06/10/15 152 Methotrexate Tablet 2.5 Mg Tablet, 15 MG PO Sunday, (Reported) Metoprolol Tartrate 50 Mg Tablet, 50 MG PO DAILY, (Reported) Nitrofurantoin Monohyd/M-Cryst 100 Mg Capsule, 100 MG PO BID Prescribed by: REGLA LAWRENCE on 03/05/191913 Pantoprazole Sodium 40 Mg Tablet.dr, 40 MG PO DAILY, (Reported) Pantoprazole Sodium 40 Mg Tablet.dr, 40 MG PO DAILY Prescribed by: REGLA LAWRENCE on 03/05/191913 Pramipexole 0.125 Mg Tablet, 0.125 MG PO HS, (Reported) Sucralfate 1 Gm Tablet, 1 GM PO QIDACHS Prescribed by: REGLA LAWRENCE on 03/05/191913 Sumatriptan Succinate 100 Mg Tablet, 0.5 TAB PO PRN PRN for HEADACHE May repeat in 2 hours; Max 200 MG/24 hours. Prescribed by: BLU QUINONES on 06/10/151554 Tramadol HCl 50 Mg Tablet, 50 MG PO BID, (Reported) Vitamin E 400 Unit Capsule, 400 UNIT PO DAILY, (Reported) Vortioxetine Hydrobromide 5 Mg Tablet, 5 MG PO DAILY, (Reported) [Biotin] , 10,000 MCG PO Evening Prescribed by: BLU QUINONES on 06/12/151529 [Folic Acid 1MG] , 2 MG PO DAILY, (Reported) [Iron 65MG] , 65 MG PO Evening Prescribed by: BLU QUINONES on 06/12/15 153 [Nitrostat] , 0.4 MG SL UD Q5 min X3 PRN. Prescribed by: BLU QUINONES on 06/10/151554 [Potassium] , 20 MEQ PO BID, (Reported) Patient Home Medication List Home Medication List Reviewed: Yes Review of Systems Review of Systems Constitutional: see HPI EENTM: see HPI Respiratory: no symptoms reported Cardiovascular: no symptoms reported Genitourinary: no symptoms reported Musculoskeletal: no symptoms reported Skin: no symptoms reported Psychiatric/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: See HPI, Headache Hematologic/Lymphatic: No Symptoms Reported Past Ojhkkqu-Nmzyqx-[place]ong[place] Hx Patient Social History Former Smoker, Quit: Sep 27, 1997 2nd Hand Smoke Exposure: No Recent Foreign Travel: No Contact w/Someone Who Travel: No Recent Hopitalizations: No Immunizations Up To Date Tetanus Booster (TDap): Unknown PED Vaccines UTD: Yes Date of Pneumonia Vaccine: Nov 05, 2012 Seasonal Allergies Seasonal Allergies: Yes Past Medical History Surgeries: Yes Abdominal, Bowel Surgery Respiratory: Yes Pneumonia Cardiac: Yes Hypertension 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: No Genitourinary: No Gastrointestinal: Yes (Ulcerative colitis) Hiatal Hernia Musculoskeletal: Yes (OA) Osteoporosis, Arthritis, Fibromyalgia, Rheumatoid Arthritis Endocrine: Yes Hypothyroidsim HEENT: Yes Glaucoma Cancer: No Psychosocial: Yes Integumentary: No Blood Disorders: No Physical Exam Vital Signs Vital Signs - First Documented 05/10/19 18:58 Pulse 86 Resp 17 B/P (MAP) 146/86 (106) Pulse Ox 96 O2 Delivery Room Air Capillary Refill : Height, Weight, BMI Height: 5'2.00" Weight: 130lbs. 11.2oz. 58.060186ic; 26.57 BMI Method:Stated General Appearance: No Apparent Distress, WD/WN Eyes: Bilateral Eye Normal Inspection, Bilateral Eye PERRL, Bilateral Eye Other (there is a bit of ptosis to the left eye. She does have tenderness to palpation over the left temporal artery.) HEENT: PERRL/EOMI, TMs Normal Neck: Full Range of Motion, Normal Inspection Respiratory: Lungs Clear, Normal Breath Sounds, No Accessory Muscle Use, No Respiratory Distress Cardiovascular: Regular Rate, Rhythm, Normal Peripheral Pulses Gastrointestinal: Non Tender, Soft Extremity: Normal Capillary Refill, Normal Inspection Neurologic/Psychiatric: Alert, Oriented x3, No Motor/Sensory Deficits Skin: Normal Color, Warm/Dry Progress/Results/Core Measures Suspected Sepsis SIRS Temperature: Pulse: Respiratory Rate: Laboratory Tests 05/10/19 19:44: White Blood Count 7.5 Blood Pressure / Mean: Laboratory Tests 05/10/19 19:44: Creatinine 1.01, Platelet Count 271, Total Bilirubin 0.4 Results/Orders Lab Results Laboratory Tests Test 05/10/19 19:44 Range/Units White Blood Count 7.5 4.3-11.0 10^3/uL Red Blood Count 3.91 L 4.35-5.85 10^6/uL Hemoglobin 11.0 L 11.5-16.0 G/DL Hematocrit 35 35-52 % Mean Corpuscular Volume 90 80-99 FL Mean Corpuscular Hemoglobin 28 25-34 PG Mean Corpuscular Hemoglobin Concent 31 L 32-36 G/DL Red Cell Distribution Width 16.1 H 10.0-14.5 % Platelet Count 271 130-400 10^3/uL Mean Platelet Volume 9.7 7.4-10.4 FL Neutrophils (%) (Auto) 69 42-75 % Lymphocytes (%) (Auto) 23 12-44 % Monocytes (%) (Auto) 8 0-12 % Eosinophils (%) (Auto) 0 0-10 % Basophils (%) (Auto) 0 0-10 % Neutrophils # (Auto) 5.1 1.8-7.8 X 10^3 Lymphocytes # (Auto) 1.7 1.0-4.0 X 10^3 Monocytes # (Auto) 0.6 0.0-1.0 X 10^3 Eosinophils # (Auto) 0.0 0.0-0.3 10^3/uL Basophils # (Auto) 0.0 0.0-0.1 10^3/uL Erythrocyte Sedimentation Rate 14 0-30 MM/HR Sodium Level 145 135-145 MMOL/L Potassium Level 4.2 3.6-5.0 MMOL/L Chloride Level 110 H 98-107 MMOL/L Carbon Dioxide Level 25 21-32 MMOL/L Anion Gap 10 5-14 MMOL/L Blood Urea Nitrogen 14 7-18 MG/DL Creatinine 1.01 0.60-1.30 MG/DL Estimat Glomerular Filtration Rate 54 BUN/Creatinine Ratio 14 Glucose Level 113 H 70-105 MG/DL Calcium Level 9.0 8.5-10.1 MG/DL Corrected Calcium 9.4 8.5-10.1 MG/DL Total Bilirubin 0.4 0.1-1.0 MG/DL Aspartate Amino Transf (AST/SGOT) 13 5-34 U/L Alanine Aminotransferase (ALT/SGPT) 13 0-55 U/L Alkaline Phosphatase 95 40-136 U/L Total Protein 5.6 L 6.4-8.2 GM/DL Albumin 3.5 3.2-4.5 GM/DL My Orders Orders - DEONNA MOBLEY APRN Ct Head Wo-R/O Stroke (05/10/19 19:02) Cbc With Automated Diff (05/10/19 19:02) Erythrocyte Sedimentation Rate (05/10/19 19:02) Comprehensive Metabolic Panel (05/10/19 19:02) Ed Iv/Invasive Line Start (05/10/19 19:02) Diphenhydramine Injection (Benadryl Inje (05/10/19 19:15) Prochlorperazine Injection (Compazine In (05/10/19 19:15) Dexamethasone Injection (Decadron Inject (05/10/19 19:15) Ns Iv 1000 Ml (Sodium Chloride 0.9%) (05/10/19 19:15) Acetycholine Commercial Carpet Installer Binding Ab (05/10/19 19:11) Ct Angio Head/Neck (05/10/19 20:36) Iohexol Injection (Omnipaque 350 Mg/Ml 1 (05/10/19 20:45) Received Contrast (Hold Metformin- Contr (05/10/19 20:45) Sodium Chloride Flush (Catheter Flush Sy (05/10/19 20:45) Ns (Ivpb) (Sodium Chloride 0.9% Ivpb Bag (05/10/19 20:45) Medications Given in ED Current Medications Medications Dose Ordered Sig/Mana Route Start Time Stop Time Status Last Admin Dose Admin Dexamethasone Sodium Phosphate 10 mg ONCE ONCE IV 05/10/19 19:15 05/10/19 19:16 DC 05/10/19 19:56 10 MG Diphenhydramine HCl 12.5 mg ONCE ONCE IVP 05/10/19 19:15 05/10/19 19:16 DC 05/10/19 19:57 12.5 MG Prochlorperazine Edisylate 5 mg ONCE ONCE IV 05/10/19 19:15 05/10/19 19:16 DC 05/10/19 19:57 5 MG Vital Signs/I&O 05/10/19 18:58 Pulse 86 Resp 17 B/P (MAP) 146/86 (106) Pulse Ox 96 O2 Delivery Room Air Capillary Refill : Departure Communication (Admissions) Patient refused an ice pack to the left eyelid after insisting we test her for myasthenia gravis. She states it makes her migraines worse. She also wants to notify us of her allergy to carpet glue. 2032 patient reports that she is concerned about myasthenia gravis because her sister has mentioned it to her and states that her symptoms are consistent with it. She states she has mentioned it to her doctor several times but "they treat me like I'm just crazy and a hypochondriac". She's been seen at [facility] several times in the past few weeks for a variety of symptoms and she has these discharge papers with her. 2100-states headache is not gone but it is much better. Impression Primary Impression: Headache Qualified Codes: R51 - Headache Disposition: 01 HOME, SELF-CARE Condition: Stable Departure-Patient Inst. Decision time for Depature: 20:25 Referrals: MAC HANDY MD (PCP/Family) Primary Care Physician Patient Instructions: Headache, Adult (DC) Add. Discharge Instructions: 1. Follow-up with your regular doctor next week 2. Return to ER for any concerns 3. All discharge instructions reviewed with patient and/or family. Voiced understanding. Copy Copies To 1: MAC HANDY MD, PETER J APRN May 10, 2019 19:08
[2019-05-10] MEDS ORDERED: DEXAMETHASONE 10 MG/ML (DECADRON) 1 ML VIAL IV ONE (19:15)
[2019-05-10] MEDS ORDERED: NS IV 1000 ML 1,000 ML IV SCH (19:15)
[2019-05-10] MEDS ORDERED: PROCHLORPERAZINE 10 MG/2ML INJ (COMPAZINE) IV ONE (19:15)
[2019-05-10] MEDS ORDERED: diphenhydrAMINE 50 MG/ML INJ (BENADRYL) IVP ONE (19:15)
[2019-05-10 19:54] LABS: BASOPHILS % (AUTO) 0 % (0-10); EOSINOPHILS % (AUTO) 0 % (0-10); HEMATOCRIT 35 % (35-52); LYMPHOCYTES # (AUTO) 1.7 X 10^3 (1.0-4.0); LYMPHOCYTES % (AUTO) 23 % (12-44); MEAN CORPUSCULAR HEMOGLOBIN 28 PG (25-34); MEAN CORPUSCULAR HGB CONC 31 G/DL (32-36); MEAN CORPUSCULAR VOLUME 90 FL (80-99); MEAN PLATELET VOLUME 9.7 FL (7.4-10.4); MONOCYTES # (AUTO) 0.6 X 10^3 (0.0-1.0); MONOCYTES % (AUTO) 8 % (0-12); NEUTROPHILS # (AUTO) 5.1 X 10^3 (1.8-7.8); NEUTROPHILS % (AUTO) 69 % (42-75); PLATELET COUNT 271 10^3/uL (130-400); RED CELL DISTRIBUTION WIDTH 16.1 % (10.0-14.5); WHITE BLOOD COUNT 7.5 10^3/uL (4.3-11.0)
--- NOTE | 2019-05-10 20:06 | Diagnostic Imaging Report ---
PROCEDURE: CT head wo r/o stroke. TECHNIQUE: Multiple contiguous axial images were obtained through the brain without the use of intravenous contrast. Auto Exposure Controls were utilized during the CT exam to meet ALARA standards for radiation dose reduction. INDICATION: Left-sided migraine, neck pain since yesterday. COMPARISON STUDY: There are no pertinent studies. FINDINGS: Noncontrast CT scan of the head demonstrates no mass effect, midline shift, hemorrhage or extra-axial fluid collections. The ventricles, cortical sulci and basilar cisterns appear normal for age. No insular ribbon sign or hyperdense MCA sign is present. The osseous structures appear normal. IMPRESSION: There is minimal age-related atrophy. No acute findings are present. Dictated by: Dictated on workstation # [id number]
[2019-05-10 20:09] LABS: ALBUMIN 3.5 GM/DL (3.2-4.5); BILIRUBIN,TOTAL 0.4 MG/DL (0.1-1.0); CREATININE SERUM 1.01 MG/DL (0.60-1.30); POTASSIUM 4.2 MMOL/L (3.6-5.0); TOTAL PROTEIN 5.6 GM/DL (6.4-8.2)
[2019-05-10 20:13] LABS: ERYTHROCYTE SEDIMENTATION RATE 14 MM/HR (0-30)
[2019-05-10] MEDS ORDERED: CATHETER FLUSH 10 ML SYR IV PRN (20:45)
[2019-05-10] MEDS ORDERED: IOHEXOL 350 MG/ML 100 ML (OMNIPAQUE 350) VIAL IV ONE (20:45)
[2019-05-10] MEDS ORDERED: NS 100 ML (IVPB) BAG IV ONE (20:45)
[2019-05-10] MEDS ORDERED: HOLD METFORMIN - RECEIVED CONTRAST 20 ML VIAL IV SCH (20:45)
[2019-05-10 22:39] VITALS: BP 140/74
[2019-05-11] MEDS ORDERED: PRD10T PO (14:41)
== END 2019-05-10 22:40 | disposition home or self-care (01) ==
LOC: EDUNIT# 18:57 → ER 18:59
DX: R51 Headache (principal); I10 Essential (primary) hypertension; M81.0 Age-related osteoporosis without current pathological fracture; M79.7 Fibromyalgia; M06.9 Rheumatoid arthritis, unspecified; E03.9 Hypothyroidism, unspecified; Z87.19 Personal history of other diseases of the digestive system; Z86.69 Personal history of other diseases of the nervous system and sense organs; Z88.2 Allergy status to sulfonamides; Z87.891 Personal history of nicotine dependence; Z87.01 Personal history of pneumonia (recurrent)
CPT/HCPCS: 36415; 70450; 80053; 83519; 85025; 85652; 96361; 96374; 96375

== ENCOUNTER 2019-05-11 13:40 | Emergency (ER) | payer MEDICARE, MEDICAID ==
[~2019-05-11] VITALS: Ht 157.5 cm; Wt 59.0 kg
--- OUTSIDE RECORDS SUMMARY | 2019-05-11 13:45 | XMS REPORT | Clinical Summary ---
Author Author [facility] Organization [facility] Address Unknown Phone Unavailable Care Team Providers Care Package Sorter Name Role Phone PCP Unavailable Allergies Not [...]
--- OUTSIDE RECORDS SUMMARY | 2019-05-11 13:45 | XMS REPORT | Clinical Summary ---
Author Author [facility] Organization [facility] Address Unknown Phone Unavailable Care Team Providers Care Manager Of Sustainability Name Role Phone Reyes Gao MD Unavailable Reyes Gao MD PCP Source Comments Some departments are not documenting in the electronic medical record. If you d o not see the information that you expected, contact Release of Information in [facility] [employer] Information Management department at [phone] for further assistan ce in locating additional records.[facility] Allergies Comments Active Allergy Reactions Severity Noted [...] loss, bilateral Active calcitonin salmon Apply 1 [place] 0 (MIACALCIN) 200 to one unit/actuation nasal [...] Use Types Packs/Day Years Used Former Smoker Drinks/Week oz/Week Comments Alcohol Use 0 Standard drinks or equivalent 0.0 Not Asked Sex Assigned at Date Recorded Not on file Industry Job Start Date Occupation Not on file Not on file Not on file Travel End Travel History Travel Start No recent travel history available. Last Filed Vital Signs Reading Time Taken Comments Vital Sign 190/102 10/31/2016 2:04 PM DIETETIC TECHNICIAN REGISTERED Blood Pressure 71 10/31/2016 2:04 PM DIETETIC TECHNICIAN REGISTERED Pulse - - Temperature - - Respiratory Rate - - Oxygen Saturation - - Inhaled Oxygen Concentration 75.3 kg (166 lb) 10/31/2016 2:04 PM DIETETIC TECHNICIAN REGISTERED Weight 162.6 cm (5' 4") 10/31/2016 2:04 PM DIETETIC TECHNICIAN REGISTERED Height 28.49 10/31/2016 2:04 PM DIETETIC TECHNICIAN REGISTERED Body Mass Index Plan of Treatment Health Maintenance Due Date [...] 2010- STATE Present HEALTH Advance Directives Patient Corporate Recycling Manager Explanation Type Date Recorded Advance 01/25/2016 7:16 AM Directive/DPOA
--- OUTSIDE RECORDS SUMMARY | 2019-05-11 13:46 | XMS REPORT ---
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 May, Active 680473352 Problem Hypokalemia E87.6 March, Active 90604590 Problem SOB (shortness of breath) R06.02 Nov, Active 175315480 Problem CKD (chronic kidney disease) stage 3, GFR 30-59 ml/min N18.3 Apr, Active 778250938 Problem Ulcerative colitis K51.90 Jul, Active 66965321 Problem Hyperlipidemia E78.5 Aug, Active 18339876 Problem Migraine G43.909 Aug, Active 42221189 Problem Diarrhea R19.7 Sep, Active 37922777 Problem Rheumatoid arthritis M06.9 Sep, Active 04125113 Problem Anemia D64.9 Sep, Active 543543539 Problem 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, 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 Active Problem Moderate episode of recurrent major depressive disorder F33.1 Active 282873134 Problem PVC (premature ventricular contraction) I49.3 Nov, Active 59721508 Problem Chronic pain G89.29 Aug, Active 20700915 Problem Essential hypertension I10 Active 23768674 Problem Diastolic dysfunction I51.9 Jan, Active 0656925 Problem Osteoporosis M81.0 Dec, Active 43027821 Problem Generalized abdominal pain R10.84 Sep, Active 479178542 Problem Stage 1 skin ulcer of sacral region L98.429 Active Problem Closed fracture of left distal tibia S82.302A Jan, Active 38396088 Problem Rotator cuff tendonitis M75.80 11 Mar, 2012 Active 811069420 Problem Iron deficiency anemia secondary to inadequate dietary iron intake D50.8 Active [id number] ALLERGIES No Information ENCOUNTERS Encounter Location Date Diagnosis [facility] [address] [address] Apr, [facility] [address] [address] March, [address] [address] Feb, [address] [address] Feb, [facility] [id number] [place] [address] Jan, [address] [address] Jan, Diastolic dysfunction I51.9 ; Rheumatoid arthritis M06.9 ; Ulcerative colitis K51.90 ; Essential hypertension I10 ; Moderate episode of recurrent major depressive disorder F33.1 and Iron deficiency anemia secondary to inadequate dietary iron intake D50.[address] [address] Jan, [address] [address] Jan, Acute bronchitis, unspecified organism J20.9 and 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 [address] [place] [address] Nov, Viral upper respiratory illness J06.9 and Nausea alone R11.0 [facility] [address] [address] Oct, [facility] [id number] [place] [address] Oct, [facility] [place] [facility] [address] [id number] [place] [address] Oct, [facility] [place] [facility] [address] [id number] [place] [address] Aug, [facility] [place] [facility] [address] [id number] [place] [address] March, [facility] [place] [facility] [address] [id number] [place] [address] Feb, [facility] [place] [facility] [address] [id number] [place] [address] Feb, [facility] [place] [facility] [address] [id number] [place] [address] Jan, [facility] [place] [facility] [address] [id number] [place] [address] Jan, [facility] [place] [facility] [address] [id number] [place] [address] Oct, [facility] [place] [facility] [address] [id number] [place] [address] Oct, [facility] [place] [facility] [address] [id number] [place] [address] Oct, [facility] [place] [facility] [address] [id number] [place] [address] Sep, [facility] [place] [facility] [address] [id number] [address] Sep, [facility] [place] [facility] [address] [id number] [place] [address] Sep, [facility] [place] [facility] [address] [id number] [place] [address] Sep, [facility] [place] [facility] [address] [facility] [id number] [place] [address] Sep, [facility] [place] [facility] [address] [id number] [place] [address] 06 Aug, 2013 [facility] [place] [facility] [address] [id number] [place] [address] Aug, [facility] [place] [facility] [address] [id number] [place] [address] Jul, 2013 [facility] [place] [facility] [address] [id number] [place] [address] Jul, 2013 [facility] [place] [facility] [address] [id number] [place] [address] 10 Jul, 2013 [facility] [place] [facility] [address] [id number] [place] [address] 10 Jul, 2013 [facility] [place] [facility] [address] [id number] [place] [address] 08 Jul, 2013 [facility] [place] [facility] [address] [id number] [place] [address] Jul, 2013 [facility] [place] [facility] [address] [id number] [place] [address] May, 2013 [facility] [place] [facility] [address] [id number] [place] [address] May, 2013 [facility] [place] [facility] [address] [id number] [place] [address] May, [facility] [place] [facility] [address] [id number] [place] [address] May, [facility] [place] [facility] [address] [id number] [place] [address] May, [facility] [place] [facility] [address] [id number] [place] [address] May, [facility] [place] [facility] [address] [id number] [place] [address] Apr, [facility] [place] [facility] [address] [id number] [place] [address] Apr, [facility] [place] [facility] [address] [id number] [place] [address] Apr, [facility] [place] [facility] [address] [id number] [place] [address] Apr, [facility] [place] [facility] [address] [id number] [place] [address] Apr, [facility] [place] [facility] [address] [id number] [place] [address] Apr, [facility] [place] [facility] [address] [id number] [place] [address] Apr, [facility] [place] [facility] [address] [id number] [place] [address] Apr, [facility] [place] [facility] [address] [id number] [place] [address] March, [facility] [place] [facility] [address] [id number] [place] [address] March, [facility] [place] [facility] [address] [id number] [place] [address] March, [facility] [place] [facility] [address] [id number] [place] [address] Feb, [facility] [place] [facility] [address] [id number] [place] [address] Feb, [facility] [place] [facility] [address] [id number] [place] [address] Feb, [facility] [place] [facility] [address] [id number] [place] [address] Feb, [facility] [place] [facility] [address] [id number] [place] [address] Feb, [facility] [place] [facility] [address] [id number] [place] [address] Feb, [facility] [place] [facility] [address] [id number] [place] [address] Feb, [facility] [address] [id number] [place] [address] Feb, [facility] [address] [id number] [place] [address] Jan, [facility] [address] [id number] [place] [address] Jan, [facility] [address] [id number] [place] [id number] Dec, [facility] [address] [id number] [place] [address] Dec, [facility] [address] [id number] [place] [address] Dec, [facility] [address] [id number] [place] [address] Dec, [facility] [address] [id number] [place] [address] Dec, [facility] [address] [id number] [place] [address] Nov, [facility] [address] [id number] [place] [address] Nov, [facility] [address] [id number] [place] [address] Nov, [facility] [place] [facility] [address] [id number] [place] [address] Nov, [facility] [place] [facility] [address] [id number] [place] [address] Nov, [facility] [place] [facility] [address] [id number] [place] [address] Nov, [facility] [place] [facility] [address] [id number] [place] [address] Oct, [facility] [place] [facility] [address] [id number] [place] [address] Oct, [facility] [address] [id number] [place] [address] Sep, [facility] [place] [facility] [address] [id number] [place] [address] Sep, [facility] [place] [facility] [address] [id number] [place] [address] Sep, [facility] [place] [facility] [address] [id number] [place] [address] Sep, [facility] [place] [facility] [address] [id number] [place] [address] Sep, [facility] [place] [facility] [address] [id number] [place] [address] Sep, [facility] [place] [facility] [address] [id number] [place] [address] Aug, [facility] [place] [facility] [address] [id number] [place] [address] Aug, [facility] [place] [facility] [address] [id number] [place] [address] May, [facility] [place] [facility] [address] [id number] [place] [address] May, [facility] [place] [facility] [address] [id number] [place] [address] May, [facility] [place] [facility] [address] [id number] [place] [address] May, [facility] [place] [facility] [address] [id number] [place] [address] Apr, [facility] [place] [facility] [address] [id number] [place] [address] Feb, [facility] [place] [facility] [address] [id number] [place] [address] Jan, [facility] [address] [id number] [place] [address] Nov, [facility] [place] [facility] [address] [id number] [place] [address] Nov, [facility] [place] [facility] [address] [id number] [place] [address] Nov, [facility] [place] [facility] [address] [id number] [place] [address] Nov, [facility] [place] [facility] [address] [id number] [place] [address] Oct, [facility] [place] [facility] [address] [id number] [place] [address] 31 Oct, 2012 [facility] [place] [facility] [address] [id number] [place] [address] Oct, [facility] [place] [facility] [address] [id number] [place] [address] 28 Oct, 2012 [facility] [place] [facility] [address] [id number] [place] [address] Oct, [facility] [place] [facility] [address] [id number] [place] [address] 27 Oct, 2012 [facility] [place] [facility] [address] [id number] [place] [address] Oct, [facility] [place] [facility] [address] [id number], [place] [address] 13 Oct, 2012 [facility] [place] [facility] [address] [id number] [place] [address] Sep, [facility] [place] [facility] [address] [id number] [place] [address] 13 Sep, 2012 [facility] [place] [facility] [address] [id number] [place] [address] 16 Aug, 2012 [facility] [place] [facility] [address] [id number] [place] [address] Aug, [facility] [place] [facility] [address] [id number] [place] [address] Jul, [facility] [place] [facility] [address] [id number] [place] [address] Jul, [facility] [place] [facility] [address] [id number] [place] [address] Jun, [facility] [place] [facility] [address] [id number] [place] [address] Jun, [facility] [place] [facility] [address] [id number] [place] [address] Jun, [facility] [place] [facility] [address] [id number] [place] [address] Jun, [facility] [place] [facility] [address] [id number] [place] [address] May, [facility] [place] [facility] [address] [id number] [place] [address] May, [facility] [place] [facility] [address] [id number] [place] [address] May, [facility] [place] [facility] [address] [id number] [place] [address] May, [facility] [place] [facility] [address] [id number] [place] [address] May, [facility] [place] [facility] [address] [id number] [place] [address] May, [facility] [place] [facility] [address] [id number] [place] [address] Apr, [facility] [place] [facility] [address] [id number] [place] [address] March, [facility] [place] [facility] [address] [id number] [place] [address] March, [facility] [place] [facility] [address] [id number] [place] [address] 30 Feb, 2012 [facility] [place] [facility] [address] [id number] [place] [address] 20 Feb, 2012 [facility] [place] [facility] [address] [id number] [place] [address] 17 Feb, 2012 [facility] [place] [facility] [address] [id number] [place] [address] 04 Feb, 2012 [facility] [place] [facility] [address] [id number] [place] [address] Jan, [facility] [place] [facility] [address] [id number] [place] [address] Dec, [facility] [address] [id number] [place] [address] Nov, [facility] [address] [id number] [place] [address] Nov, [facility] [address] [id number] [place] [address] Nov, [facility] [address] [id number] [place] [address] Oct, [facility] [place] [facility] [address] [id number] [place] [address] 19 Oct, 2011 [facility] [place] [facility] [address] [id number] [place] [address] 15 Sep, 2011 [facility] [place] [facility] [address] [id number] [place] [address] 15 Sep, 2011 [facility] [place] [facility] [address] [id number] [place] [address] 14 Oct, 2010 [facility] [place] [facility] [address] [id number] [place] [address] 30 Sep, 2010 [facility] [place] [facility] [address] [id number] [place] [address] Aug, [facility] [address] [facility] [id number] [place] [address] Aug, IMMUNIZATIONS No Known Immunizations SOCIAL HISTORY Never Assessed REASON FOR VISIT EMR-[facility] PLAN OF CARE VITAL SIGNS MEDICATIONS Unknown [...]
--- OUTSIDE RECORDS SUMMARY | 2019-05-11 13:46 | XMS REPORT ---
Author Author Migration, Doctor Organization [facility] Address Unknown Phone Unavailable Care Team Providers Care Coding Auditor Name Role Phone Migration, Doctor Unavailable Unavailable PROBLEMS Type Condition ICD9-CM Code HBS63-ZW Code Onset Dates Condition Status SNOMED Code Problem Generalized anxiety disorder F41.1 Jun, Active 19636272 Problem Diverticulitis of both small and large intestine without perforation or abscess without bleeding K57.52 Feb, Active 896771667 Problem 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 May, Active 030259286 Problem Hypokalemia E87.6 March, Active 48658565 Problem SOB (shortness of breath) R06.02 Nov, Active 220740560 Problem CKD (chronic kidney disease) stage 3, GFR 30-59 ml/min N18.3 Apr, Active 944883305 Problem Ulcerative colitis K51.90 Jul, Active 29847092 Problem Hyperlipidemia E78.5 Aug, Active 23043163 Problem Migraine G43.909 Aug, Active 72633444 Problem Diarrhea R19.7 Sep, Active 00665194 Problem Rheumatoid arthritis M06.9 Sep, Active 89053925 Problem Anemia D64.9 Sep, Active 409384720 Problem 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, 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 Active Problem Moderate episode of recurrent major depressive disorder F33.1 Active 635254434 Problem PVC (premature ventricular contraction) I49.3 Nov, Active 59426107 Problem Chronic pain G89.29 Aug, Active 17682659 Problem Essential hypertension I10 Active 67733529 Problem Diastolic dysfunction I51.9 Jan, Active 2669851 Problem Osteoporosis M81.0 Dec, Active 13786155 Problem Generalized abdominal pain R10.84 Sep, Active 733919281 Problem Stage 1 skin ulcer of sacral region L98.429 Active Problem Closed fracture of left distal tibia S82.302A Jan, Active 53105202 Problem Rotator cuff tendonitis M75.80 11 Mar, 2012 Active 788524080 Problem Iron deficiency anemia secondary to inadequate dietary iron intake D50.8 Active [id number] ALLERGIES No Information ENCOUNTERS Encounter Location Date Diagnosis [facility] [address] [address] Apr, [address] [address] March, [address] [address] March, [address] [address] March, Ulcerative colitis K51.90 and 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 [address] Feb, [address] [address] Feb, [facility] [id number] [place] [address] Jan, [address] [address] Jan, Diastolic dysfunction I51.9 ; Rheumatoid arthritis M06.9 ; Ulcerative colitis K51.90 ; Essential hypertension I10 ; Moderate episode of recurrent major depressive disorder F33.1 and Iron deficiency anemia secondary to inadequate dietary iron intake D50.[address] [address] Jan, [address] [address] Jan, Acute bronchitis, unspecified organism J20.9 and 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 [facility] [address] [id number] [address] Dec, [address] [address] Dec, [facility] [address] [place] [address] Nov, Viral upper respiratory illness J06.9 and Nausea alone R11.0 [facility] [place] [facility] [address] [facility] [id number] [place] [address] Oct, [facility] [place] [facility] [address] [facility] [id number] [place] [address] Oct, [facility] [place] [facility] [address] [facility] [id number] [place] [address] Oct, [facility] [place] [facility] [address] [facility] [id number] [place] [address] Aug, [facility] [place] [facility] [address] [facility] [id number] [place] [address] March, [facility] [place] [facility] [address] [facility] [id number] [place] [address] Feb, [facility] [place] [facility] [address] [id number] [address] Feb, [facility] [place] [facility] [address] [facility] [id number] [address] Jan, [facility] [place] [facility] [address] [id number] [address] Jan, [facility] [place] [facility] [id number] [place] [address] Oct, [facility] [place] [facility] [id number] [address] Oct, [facility] [place] [facility] [address] [facility] [id number] [address] Oct, [facility] [place] [facility] [address] [facility] [id number] [place] [address] Sep, [facility] [place] [facility] [address] [facility] [id number] [place] [address] Sep, [facility] [place] [facility] [address] [facility] [id number] [place] [address] Sep, [facility] [place] [facility] [address] [facility] [id number] [place] [address] Sep, [facility] [place] [facility] [address] [id number] [place] [address] Sep, [facility] [place] [facility] [address] [id number] [place] [address] Aug, [facility] [place] [facility] [address] [id number] [place] [address] Aug, [facility] [place] [facility] [address] [id number] [place] [address] Jul, [facility] [place] [facility] [address] [id number] [place] [address] Jul, [facility] [place] [facility] [address] [id number] [place] [address] Jul, [facility] [place] [facility] [address] [id number] [place] [address] Jul, 2013 [facility] [place] [facility] [address] [id number] [place] [address] Jul, [facility] [place] [facility] [address] [id number] [place] [address] Jul, [facility] [place] [facility] [address] [id number] [place] [address] May, [facility] [place] [facility] [address] [id number] [place] [address] May, [facility] [place] [facility] [address] [id number] [place] [address] May, [facility] [place] [facility] [address] [id number] [place] [address] May, [facility] [place] [facility] [address] [id number] [place] [address] May, [facility] [place] [facility] [address] [id number] [place] [address] May, [facility] [place] [facility] [address] [id number] [place] [address] Apr, [facility] [place] [facility] [address] [id number] [place] [address] Apr, [facility] [place] [facility] [address] [id number] [place] [address] Apr, [facility] [place] [facility] [address] [id number] [place] [address] Apr, [facility] [place] [facility] [address] [id number] [place] [address] Apr, [facility] [place] [facility] [address] [id number] [place] [address] Apr, [facility] [place] [facility] [address] [id number] [place] [address] Apr, [facility] [place] [facility] [address] [id number] [place] [address] Apr, [facility] [place] [facility] [address] [id number] [place] [address] March, [facility] [place] [facility] [address] [id number] [place] [address] March, [facility] [place] [facility] [address] [id number] [place] [address] March, [facility] [place] [facility] [address] [id number] [place] [address] Feb, [facility] [place] [facility] [address] [id number] [place] [address] Feb, [facility] [place] [facility] [address] [id number] [place] [address] Feb, [facility] [place] [facility] [address] [id number] [place] [address] Feb, [facility] [place] [facility] [address] [id number] [place] [address] Feb, [facility] [place] [facility] [address] [id number] [place] [address] Feb, [facility] [place] [facility] [address] [id number] [place] [address] Feb, [facility] [place] [facility] [address] [id number] [place] [address] Feb, [facility] [place] [facility] [address] [id number] [place] [address] Jan, [facility] [place] [facility] [address] [id number] [place] [address] Jan, [facility] [place] [facility] [address] [id number] [place] [id number] Dec, [facility] [place] [facility] [address] [id number] [place] [address] Dec, [facility] [place] [facility] [address] [id number] [place] [address] Dec, [facility] [place] [facility] [address] [id number] [place] [address] Dec, [facility] [place] [facility] [address] [id number] [place] [address] Dec, [facility] [place] [facility] [address] [id number] [place] [address] Nov, [facility] [place] [facility] [address] [id number] [place] [address] Nov, [facility] [place] [facility] [address] [id number] [place] [address] Nov, [facility] [place] [facility] [address] [id number] [place] [address] Nov, [facility] [place] [facility] [address] [id number] [place] [address] Nov, [facility] [place] [facility] [address] [id number] [place] [address] Nov, [facility] [address] [id number] [place] [address] Oct, [facility] [place] [facility] [address] [id number] [place] [address] Oct, [facility] [place] [facility] [address] [id number] [place] [address] Sep, [facility] [place] [facility] [address] [id number] [place] [address] Sep, [facility] [place] [facility] [address] [id number] [place] [address] Sep, [facility] [place] [facility] [address] [id number] [place] [address] Sep, [facility] [place] [facility] [address] [id number] [place] [address] Sep, [facility] [place] [facility] [address] [id number] [place] [address] Sep, [facility] [place] [facility] [address] [id number] [place] [address] Aug, [facility] [place] [facility] [address] [id number] [place] [address] Aug, [facility] [place] [facility] [address] [id number] [place] [address] May, [facility] [place] [facility] [address] [id number] [place] [address] May, [facility] [place] [facility] [address] [id number] [place] [address] May, [facility] [place] [facility] [address] [id number] [place] [address] May, [facility] [place] [facility] [address] [id number] [place] [address] Apr, [facility] [address] [id number] [place] [address] 17 Feb, 2013 [facility] [place] [facility] [address] [id number] [place] [address] Jan, [facility] [place] [facility] [address] [id number] [place] [address] Nov, [facility] [place] [facility] [address] [id number] [place] [address] Nov, [facility] [address] [id number] [place] [address] Nov, [facility] [place] [facility] [address] [id number] [place] [address] Nov, [facility] [place] [facility] [address] [id number] [place] [address] Oct, [facility] [place] [facility] [address] [id number] [place] [address] 31 Oct, 2012 [facility] [place] [facility] [address] [id number] [place] [address] Oct, [facility] [place] [facility] [address] [id number] [place] [address] 28 Oct, 2012 [facility] [place] [facility] [address] [id number] [place] [address] Oct, [facility] [place] [facility] [address] [id number] [place] [address] 27 Oct, 2012 [facility] [place] [facility] [address] [id number] [place] [address] 13 Oct, 2012 [facility] [place] [facility] [address] [id number] [place] [address] 13 Oct, 2012 [facility] [place] [facility] [address] [id number] [place] [address] 13 Sep, 2012 [facility] [place] [facility] [address] [id number] [place] [address] Sep, [facility] [place] [facility] [address] [id number] [place] [address] 16 Aug, 2012 [facility] [place] [facility] [address] [id number] [place] [address] Aug, [facility] [place] [facility] [address] [id number] [place] [address] 24 Jul, 2012 [facility] [place] [facility] [address] [id number] [place] [address] Jul, [facility] [place] [facility] [address] [id number] [place] [address] Jun, [facility] [place] [facility] [address] [id number] [place] [address] Jun, [facility] [place] [facility] [address] [id number] [place] [address] Jun, [facility] [place] [facility] [address] [id number] [place] [address] Jun, [facility] [place] [facility] [address] [id number] [place] [address] May, [facility] [place] [facility] [address] [id number] [place] [address] May, [facility] [place] [facility] [address] [id number] [place] [address] May, [facility] [place] [facility] [address] [id number] [place] [address] May, [facility] [place] [facility] [address] [id number] [place] [address] May, [facility] [place] [facility] [address] [id number] [place] [address] May, [facility] [place] [facility] [address] [id number] [place] [address] Apr, [facility] [place] [facility] [address] [id number] [place] [address] March, [facility] [address] [id number] [place] [address] March, [facility] [place] [facility] [address] [id number] [place] [address] Feb, [facility] [place] [facility] [address] [id number] [place] [address] Feb, [facility] [place] [facility] [address] [id number] [place] [address] Feb, [facility] [place] [facility] [address] [id number] [place] [address] Feb, [facility] [address] [id number] [place] [address] Jan, [facility] [address] [id number] [place] [address] Dec, [facility] [address] [id number] [place] [address] Nov, [facility] [address] [id number] [place] [address] Nov, [facility] [address] [id number] [place] [address] Nov, [facility] [address] [id number] [place] [address] Oct, [facility] [place] [facility] [address] [id number] [place] [address] Oct, [facility] [place] [facility] [address] [id number] [place] [address] Sep, [facility] [place] [facility] [address] [id number] [place] [address] Sep, [facility] [place] [facility] [address] [id number], [place] [address] Oct, [facility] [address] [facility] [id number] [place] [address] Sep, [facility] [address] [facility] [id number] [place] [address] Aug, [facility] [address] [facility] [id number] [place] [address] Aug, IMMUNIZATIONS No Known Immunizations SOCIAL HISTORY Never Assessed REASON FOR VISIT EMR-[facility] [place] PLAN OF CARE VITAL SIGNS MEDICATIONS Unknown [...] Surgical History hernia repair Surgical History tonsillectomy Hospitalization History Multiple Hospital Stays
--- OUTSIDE RECORDS SUMMARY | 2019-05-11 13:46 | XMS REPORT ---
Author Author Migration, Doctor Organization 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 May, Active 220924464 Problem Hypokalemia E87.6 March, Active 19369033 Problem SOB (shortness of breath) R06.02 Nov, Active 171694483 Problem CKD (chronic kidney disease) stage 3, GFR 30-59 ml/min N18.3 Apr, Active 143042391 Problem Ulcerative colitis K51.90 Jul, Active 09726245 Problem Hyperlipidemia E78.5 Aug, Active 72551489 Problem Migraine G43.909 Aug, Active 14263787 Problem Diarrhea R19.7 Sep, Active 09585581 Problem Rheumatoid arthritis M06.9 Sep, Active 87839671 Problem Anemia D64.9 Sep, Active 878011427 Problem 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, 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 Active Problem Moderate episode of recurrent major depressive disorder F33.1 Active 740632497 Problem PVC (premature ventricular contraction) I49.3 Nov, Active 06747169 Problem Chronic pain G89.29 Aug, Active 97290057 Problem Essential hypertension I10 Active 95439539 Problem Diastolic dysfunction I51.9 Jan, Active 1652585 Problem Osteoporosis M81.0 Dec, Active 05131266 Problem Generalized abdominal pain R10.84 Sep, Active 044184149 Problem Stage 1 skin ulcer of sacral region L98.429 Active Problem Closed fracture of left distal tibia S82.302A Jan, Active 98595603 Problem Rotator cuff tendonitis M75.80 11 Mar, 2012 Active 453677671 Problem Iron deficiency anemia secondary to inadequate dietary iron intake D50.8 Active [id number] ALLERGIES No Information ENCOUNTERS Encounter Location Date Diagnosis [facility] [address] [address] Apr, [facility] [address] [address] March, [address] [address] Feb, [address] [address] Feb, [facility] [id number] [place] [address] Jan, [address] [address] Jan, Diastolic dysfunction I51.9 ; Rheumatoid arthritis M06.9 ; Ulcerative colitis K51.90 ; Essential hypertension I10 ; Moderate episode of recurrent major depressive disorder F33.1 and Iron deficiency anemia secondary to inadequate dietary iron intake D50.[address] [address] Jan, [address] [address] Jan, Acute bronchitis, unspecified organism J20.9 and 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 [facility] [id number] [place] [address] Dec, [address] [address] Dec, [facility] [address] [place] [address] Nov, Viral upper respiratory illness J06.9 and Nausea alone R11.0 [facility] [address] [address] Oct, [facility] [id number] [place] [address] Oct, [facility] [place] [facility] [address] [id number] [place] [address] Oct, [facility] [place] [facility] [address] [id number] [place] [address] Aug, [facility] [place] [facility] [address] [id number] [place] [address] March, [facility] [place] [facility] [address] [id number] [place] [address] Feb, [facility] [place] [facility] [address] [id number] [place] [address] Feb, [facility] [place] [facility] [address] [id number] [place] [address] Jan, [facility] [place] [facility] [address] [id number] [place] [address] Jan, [facility] [place] [facility] [address] [id number] [place] [address] Oct, [facility] [place] [facility] [address] [id number] [place] [address] Oct, [facility] [place] [facility] [address] [id number] [place] [address] Oct, [facility] [place] [facility] [address] [id number] [place] [address] Sep, [facility] [place] [facility] [address] [id number] [address] Sep, [facility] [place] [facility] [address] [id number] [place] [address] Sep, [facility] [place] [facility] [address] [id number] [place] [address] Sep, [facility] [place] [facility] [address] [facility] [id number] [place] [address] Sep, [facility] [place] [facility] [address] [id number] [place] [address] 06 Aug, 2013 [facility] [place] [facility] [address] [id number] [place] [address] Aug, [facility] [place] [facility] [address] [id number] [place] [address] Jul, 2013 [facility] [place] [facility] [address] [id number] [place] [address] Jul, 2013 [facility] [place] [facility] [address] [id number] [place] [address] 10 Jul, 2013 [facility] [place] [facility] [address] [id number] [place] [address] 10 Jul, 2013 [facility] [place] [facility] [address] [id number] [place] [address] 08 Jul, 2013 [facility] [place] [facility] [address] [id number] [place] [address] Jul, 2013 [facility] [place] [facility] [address] [id number] [place] [address] May, 2013 [facility] [place] [facility] [address] [id number] [place] [address] May, 2013 [facility] [place] [facility] [address] [id number] [place] [address] May, [facility] [place] [facility] [address] [id number] [place] [address] May, [facility] [place] [facility] [address] [id number] [place] [address] May, [facility] [place] [facility] [address] [id number] [place] [address] May, [facility] [place] [facility] [address] [id number] [place] [address] Apr, [facility] [place] [facility] [address] [id number] [place] [address] Apr, [facility] [place] [facility] [address] [id number] [place] [address] Apr, [facility] [place] [facility] [address] [id number] [place] [address] Apr, [facility] [place] [facility] [address] [id number] [place] [address] Apr, [facility] [place] [facility] [address] [id number] [place] [address] Apr, [facility] [place] [facility] [address] [id number] [place] [address] Apr, [facility] [place] [facility] [address] [id number] [place] [address] Apr, [facility] [place] [facility] [address] [id number] [place] [address] March, [facility] [place] [facility] [address] [id number] [place] [address] March, [facility] [place] [facility] [address] [id number] [place] [address] March, [facility] [place] [facility] [address] [id number] [place] [address] Feb, [facility] [place] [facility] [address] [id number] [place] [address] Feb, [facility] [place] [facility] [address] [id number] [place] [address] Feb, [facility] [place] [facility] [address] [id number] [place] [address] Feb, [facility] [place] [facility] [address] [id number] [place] [address] Feb, [facility] [place] [facility] [address] [id number] [place] [address] Feb, [facility] [place] [facility] [address] [id number] [place] [address] Feb, [facility] [address] [id number] [place] [address] Feb, [facility] [address] [id number] [place] [address] Jan, [facility] [address] [id number] [place] [address] Jan, [facility] [address] [id number] [place] [id number] Dec, [facility] [address] [id number] [place] [address] Dec, [facility] [address] [id number] [place] [address] Dec, [facility] [address] [id number] [place] [address] Dec, [facility] [address] [id number] [place] [address] Dec, [facility] [address] [id number] [place] [address] Nov, [facility] [address] [id number] [place] [address] Nov, [facility] [address] [id number] [place] [address] Nov, [facility] [place] [facility] [address] [id number] [place] [address] Nov, [facility] [place] [facility] [address] [id number] [place] [address] Nov, [facility] [place] [facility] [address] [id number] [place] [address] Nov, [facility] [place] [facility] [address] [id number] [place] [address] Oct, [facility] [place] [facility] [address] [id number] [place] [address] Oct, [facility] [address] [id number] [place] [address] Sep, [facility] [place] [facility] [address] [id number] [place] [address] Sep, [facility] [place] [facility] [address] [id number] [place] [address] Sep, [facility] [place] [facility] [address] [id number] [place] [address] Sep, [facility] [place] [facility] [address] [id number] [place] [address] Sep, [facility] [place] [facility] [address] [id number] [place] [address] Sep, [facility] [place] [facility] [address] [id number] [place] [address] Aug, [facility] [place] [facility] [address] [id number] [place] [address] Aug, [facility] [place] [facility] [address] [id number] [place] [address] May, [facility] [place] [facility] [address] [id number] [place] [address] May, [facility] [place] [facility] [address] [id number] [place] [address] May, [facility] [place] [facility] [address] [id number] [place] [address] May, [facility] [place] [facility] [address] [id number] [place] [address] Apr, [facility] [place] [facility] [address] [id number] [place] [address] Feb, [facility] [place] [facility] [address] [id number] [place] [address] Jan, [facility] [address] [id number] [place] [address] Nov, [facility] [place] [facility] [address] [id number] [place] [address] Nov, [facility] [place] [facility] [address] [id number] [place] [address] Nov, [facility] [place] [facility] [address] [id number] [place] [address] Nov, [facility] [place] [facility] [address] [id number] [place] [address] Oct, [facility] [place] [facility] [address] [id number] [place] [address] 31 Oct, 2012 [facility] [place] [facility] [address] [id number] [place] [address] Oct, [facility] [place] [facility] [address] [id number] [place] [address] 28 Oct, 2012 [facility] [place] [facility] [address] [id number] [place] [address] Oct, [facility] [place] [facility] [address] [id number] [place] [address] 27 Oct, 2012 [facility] [place] [facility] [address] [id number] [place] [address] Oct, [facility] [place] [facility] [address] [id number] [address] 13 Oct, 2012 [facility] [place] [facility] [address] [id number] [place] [address] Sep, [facility] [place] [facility] [address] [id number] [place] [address] 13 Sep, 2012 [facility] [place] [facility] [address] [id number] [place] [address] 16 Aug, 2012 [facility] [place] [facility] [address] [id number] [place] [address] Aug, [facility] [place] [facility] [address] [id number] [place] [address] Jul, [facility] [place] [facility] [address] [id number] [place] [address] Jul, [facility] [place] [facility] [address] [id number] [place] [address] Jun, [facility] [place] [facility] [address] [id number] [place] [address] Jun, [facility] [place] [facility] [address] [id number] [place] [address] Jun, [facility] [place] [facility] [address] [id number] [place] [address] Jun, [facility] [place] [facility] [address] [id number] [place] [address] May, [facility] [place] [facility] [address] [id number] [place] [address] May, [facility] [place] [facility] [address] [id number] [place] [address] May, [facility] [place] [facility] [address] [id number] [place] [address] May, [facility] [place] [facility] [address] [id number] [place] [address] May, [facility] [place] [facility] [address] [id number] [place] [address] May, [facility] [place] [facility] [address] [id number] [place] [address] Apr, [facility] [place] [facility] [address] [id number] [place] [address] March, [facility] [place] [facility] [address] [id number] [place] [address] March, [facility] [place] [facility] [address] [id number] [place] [address] 30 Feb, 2012 [facility] [place] [facility] [address] [id number] [place] [address] 20 Feb, 2012 [facility] [place] [facility] [address] [id number] [place] [address] 17 Feb, 2012 [facility] [place] [facility] [address] [id number] [place] [address] 04 Feb, 2012 [facility] [place] [facility] [address] [id number] [place] [address] Jan, [facility] [place] [facility] [address] [id number] [place] [address] Dec, [facility] [address] [id number] [place] [address] Nov, [facility] [address] [id number] [place] [address] Nov, [facility] [address] [id number] [place] [address] Nov, [facility] [address] [id number] [place] [address] Oct, [facility] [place] [facility] [address] [id number] [place] [address] 19 Oct, 2011 [facility] [place] [facility] [address] [id number] [place] [address] 15 Sep, 2011 [facility] [place] [facility] [address] [id number] [place] [address] 15 Sep, 2011 [facility] [place] [facility] [address] [id number] [place] [address] 14 Oct, 2010 [facility] [place] [facility] [address] [id number] [place] [address] 30 Sep, 2010 [facility] [place] [facility] [address] [id number] [place] [address] Aug, [facility] [address] [facility] [id number] [place] [address] Aug, IMMUNIZATIONS No Known Immunizations SOCIAL HISTORY Never Assessed REASON FOR [place] [place] VITAL SIGNS MEDICATIONS Unknown [...]
--- OUTSIDE RECORDS SUMMARY | 2019-05-11 13:47 | XMS REPORT ---
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 May, Active 846513534 Problem Hypokalemia E87.6 March, Active 83096810 Problem SOB (shortness of breath) R06.02 Nov, Active 247204015 Problem CKD (chronic kidney disease) stage 3, GFR 30-59 ml/min N18.3 Apr, Active 511516929 Problem Ulcerative colitis K51.90 Jul, Active 77069238 Problem Hyperlipidemia E78.5 Aug, Active 78374853 Problem Migraine G43.909 Aug, Active 61190862 Problem Diarrhea R19.7 Sep, Active 50625497 Problem Rheumatoid arthritis M06.9 Sep, Active 54854599 Problem Anemia D64.9 Sep, Active 498435624 Problem 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, 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 Active Problem Moderate episode of recurrent major depressive disorder F33.1 Active 717586870 Problem PVC (premature ventricular contraction) I49.3 Nov, Active 06854441 Problem Chronic pain G89.29 Aug, Active 90122408 Problem Essential hypertension I10 Active 62149958 Problem Diastolic dysfunction I51.9 Jan, Active 7587100 Problem Osteoporosis M81.0 Dec, Active 06072709 Problem Generalized abdominal pain R10.84 Sep, Active 322734313 Problem Stage 1 skin ulcer of sacral region L98.429 Active Problem Closed fracture of left distal tibia S82.302A Jan, Active 23725792 Problem Rotator cuff tendonitis M75.80 11 Mar, 2012 Active 174918990 Problem Iron deficiency anemia secondary to inadequate dietary iron intake D50.8 Active [id number] ALLERGIES No Information ENCOUNTERS Encounter Location Date Diagnosis [facility] [address] [address] Apr, [facility] [id number] [address] March, [address] [address] Feb, [address] [address] Feb, [facility] [id number] [place] [address] Jan, [address] [address] Jan, Diastolic dysfunction I51.9 ; Rheumatoid arthritis M06.9 ; Ulcerative colitis K51.90 ; Essential hypertension I10 ; Moderate episode of recurrent major depressive disorder F33.1 and Iron deficiency anemia secondary to inadequate dietary iron intake D50.[address] [address] Jan, [address] [address] Jan, Acute bronchitis, unspecified organism J20.9 and 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 [facility] [id number] [place] [address] Dec, [address] [address] Dec, [facility] [address] [place] [address] Nov, Viral upper respiratory illness J06.9 and Nausea alone R11.0 [facility] [id number] [address] Oct, [facility] [id number] [place] [address] Oct, [facility] [place] [facility] [address] [id number] [place] [address] Oct, [facility] [place] [facility] [address] [id number] [place] [address] Aug, [facility] [place] [facility] [address] [id number] [place] [address] March, [facility] [place] [facility] [address] [id number] [place] [address] Feb, [facility] [place] [facility] [address] [id number] [place] [address] Feb, [facility] [place] [facility] [address] [id number] [place] [address] Jan, [facility] [place] [facility] [address] [id number] [place] [address] Jan, [facility] [place] [facility] [address] [id number] [place] [address] Oct, [facility] [place] [facility] [address] [id number] [place] [address] Oct, [facility] [place] [facility] [address] [id number] [place] [address] Oct, [facility] [place] [facility] [address] [id number] [place] [address] Sep, [facility] [place] [facility] [address] [id number] [address] Sep, [facility] [place] [facility] [address] [id number] [place] [address] Sep, [facility] [place] [facility] [address] [id number] [place] [address] Sep, [facility] [place] [facility] [address] [facility] [id number] [place] [address] Sep, [facility] [place] [facility] [address] [id number] [place] [address] 06 Aug, 2013 [facility] [place] [facility] [address] [id number] [place] [address] Aug, [facility] [place] [facility] [address] [id number] [place] [address] Jul, 2013 [facility] [place] [facility] [address] [id number] [place] [address] Jul, 2013 [facility] [place] [facility] [address] [id number] [place] [address] 10 Jul, 2013 [facility] [place] [facility] [address] [id number] [place] [address] 10 Jul, 2013 [facility] [place] [facility] [address] [id number] [place] [address] 08 Jul, 2013 [facility] [place] [facility] [address] [id number] [place] [address] Jul, 2013 [facility] [place] [facility] [address] [id number] [place] [address] May, 2013 [facility] [place] [facility] [address] [id number] [place] [address] May, 2013 [facility] [place] [facility] [address] [id number] [place] [address] May, [facility] [place] [facility] [address] [id number] [place] [address] May, [facility] [place] [facility] [address] [id number] [place] [address] May, [facility] [place] [facility] [address] [id number] [place] [address] May, [facility] [place] [facility] [address] [id number] [place] [address] Apr, [facility] [place] [facility] [address] [id number] [place] [address] Apr, [facility] [place] [facility] [address] [id number] [place] [address] Apr, [facility] [place] [facility] [address] [id number] [place] [address] Apr, [facility] [place] [facility] [address] [id number] [place] [address] Apr, [facility] [place] [facility] [address] [id number] [place] [address] Apr, [facility] [place] [facility] [address] [id number] [place] [address] Apr, [facility] [place] [facility] [address] [id number] [place] [address] Apr, [facility] [place] [facility] [address] [id number] [place] [address] March, [facility] [place] [facility] [address] [id number] [place] [address] March, [facility] [place] [facility] [address] [id number] [place] [address] March, [facility] [place] [facility] [address] [id number] [place] [address] Feb, [facility] [place] [facility] [address] [id number] [place] [address] Feb, [facility] [place] [facility] [address] [id number] [place] [address] Feb, [facility] [place] [facility] [address] [id number] [place] [address] Feb, [facility] [place] [facility] [address] [id number] [place] [address] Feb, [facility] [place] [facility] [address] [id number] [place] [address] Feb, [facility] [place] [facility] [address] [id number] [place] [address] Feb, [facility] [address] [id number] [place] [address] Feb, [facility] [address] [id number] [place] [address] Jan, [facility] [address] [id number] [place] [address] Jan, [facility] [address] [id number] [place] [id number] Dec, [facility] [address] [id number] [place] [address] Dec, [facility] [address] [id number] [place] [address] Dec, [facility] [address] [id number] [place] [address] Dec, [facility] [address] [id number] [place] [address] Dec, [facility] [address] [id number] [place] [address] Nov, [facility] [address] [id number] [place] [address] Nov, [facility] [address] [id number] [place] [address] Nov, [facility] [place] [facility] [address] [id number] [place] [address] Nov, [facility] [place] [facility] [address] [id number] [place] [address] Nov, [facility] [place] [facility] [address] [id number] [place] [address] Nov, [facility] [place] [facility] [address] [id number] [place] [address] Oct, [facility] [place] [facility] [address] [id number] [place] [address] Oct, [facility] [address] [id number] [place] [address] Sep, [facility] [place] [facility] [address] [id number] [place] [address] Sep, [facility] [place] [facility] [address] [id number] [place] [address] Sep, [facility] [place] [facility] [address] [id number] [place] [address] Sep, [facility] [place] [facility] [address] [id number] [place] [address] Sep, [facility] [place] [facility] [address] [id number] [place] [address] Sep, [facility] [place] [facility] [address] [id number] [place] [address] Aug, [facility] [place] [facility] [address] [id number] [place] [address] Aug, [facility] [place] [facility] [address] [id number] [place] [address] May, [facility] [place] [facility] [address] [id number] [place] [address] May, [facility] [place] [facility] [address] [id number] [place] [address] May, [facility] [place] [facility] [address] [id number] [place] [address] May, [facility] [place] [facility] [address] [id number] [place] [address] Apr, [facility] [place] [facility] [address] [id number] [place] [address] Feb, [facility] [place] [facility] [address] [id number] [place] [address] Jan, [facility] [address] [id number] [place] [address] Nov, [facility] [place] [facility] [address] [id number] [place] [address] Nov, [facility] [place] [facility] [address] [id number] [place] [address] Nov, [facility] [place] [facility] [address] [id number] [place] [address] Nov, [facility] [place] [facility] [address] [id number] [place] [address] Oct, [facility] [place] [facility] [address] [id number] [place] [address] 31 Oct, 2012 [facility] [place] [facility] [address] [id number] [place] [address] Oct, [facility] [place] [facility] [address] [id number] [place] [address] 28 Oct, 2012 [facility] [place] [facility] [address] [id number] [place] [address] Oct, [facility] [place] [facility] [address] [id number] [place] [address] 27 Oct, 2012 [facility] [place] [facility] [address] [id number] [place] [address] Oct, [facility] [place] [facility] [address] [id number] [address] 13 Oct, 2012 [facility] [place] [facility] [address] [id number] [place] [address] Sep, [facility] [place] [facility] [address] [id number] [place] [address] 13 Sep, 2012 [facility] [place] [facility] [address] [id number] [place] [address] 16 Aug, 2012 [facility] [place] [facility] [address] [id number] [place] [address] Aug, [facility] [place] [facility] [address] [id number] [place] [address] Jul, [facility] [place] [facility] [address] [id number] [place] [address] Jul, [facility] [place] [facility] [address] [id number] [place] [address] Jun, [facility] [place] [facility] [address] [id number] [place] [address] Jun, [facility] [place] [facility] [address] [id number] [place] [address] Jun, [facility] [place] [facility] [address] [id number] [place] [address] Jun, [facility] [place] [facility] [address] [id number] [place] [address] May, [facility] [place] [facility] [address] [id number] [place] [address] May, [facility] [place] [facility] [address] [id number] [place] [address] May, [facility] [place] [facility] [address] [id number] [place] [address] May, [facility] [place] [facility] [address] [id number] [place] [address] May, [facility] [place] [facility] [address] [id number] [place] [address] May, [facility] [place] [facility] [address] [id number] [place] [address] Apr, [facility] [place] [facility] [address] [id number] [place] [address] March, [facility] [place] [facility] [address] [id number] [place] [address] March, [facility] [place] [facility] [address] [id number] [place] [address] 30 Feb, 2012 [facility] [place] [facility] [address] [id number] [place] [address] 20 Feb, 2012 [facility] [place] [facility] [address] [id number] [place] [address] 17 Feb, 2012 [facility] [place] [facility] [address] [id number] [place] [address] 04 Feb, 2012 [facility] [place] [facility] [address] [id number] [place] [address] Jan, [facility] [place] [facility] [address] [id number] [place] [address] Dec, [facility] [address] [id number] [place] [address] Nov, [facility] [address] [id number] [place] [address] Nov, [facility] [address] [id number] [place] [address] Nov, [facility] [address] [id number] [place] [address] Oct, [facility] [place] [facility] [address] [id number] [place] [address] 19 Oct, 2011 [facility] [place] [facility] [address] [id number] [place] [address] 15 Sep, 2011 [facility] [place] [facility] [address] [id number] [place] [address] 15 Sep, 2011 [facility] [place] [facility] [address] [id number] [place] [address] 14 Oct, 2010 [facility] [place] [facility] [address] [id number] [place] [address] 30 Sep, 2010 [facility] [place] [facility] [address] [id number] [place] [address] Aug, [facility] [address] [facility] [id number] [place] [address] Aug, IMMUNIZATIONS No Known Immunizations SOCIAL HISTORY Never Assessed REASON FOR VISIT EMR-[facility] PLAN OF CARE VITAL SIGNS MEDICATIONS Unknown [...]
--- OUTSIDE RECORDS SUMMARY | 2019-05-11 13:47 | XMS REPORT ---
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 May, Active 854572082 Problem Hypokalemia E87.6 March, Active 43836195 Problem SOB (shortness of breath) R06.02 Nov, Active 374814413 Problem CKD (chronic kidney disease) stage 3, GFR 30-59 ml/min N18.3 Apr, Active 944063392 Problem Ulcerative colitis K51.90 Jul, Active 30679820 Problem Hyperlipidemia E78.5 Aug, Active 22904584 Problem Migraine G43.909 Aug, Active 49752320 Problem Diarrhea R19.7 Sep, Active 36995060 Problem Rheumatoid arthritis M06.9 Sep, Active 72022155 Problem Anemia D64.9 Sep, Active 148060304 Problem 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, 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 Active Problem Moderate episode of recurrent major depressive disorder F33.1 Active 891987629 Problem PVC (premature ventricular contraction) I49.3 Nov, Active 32873992 Problem Chronic pain G89.29 Aug, Active 94595750 Problem Essential hypertension I10 Active 10757239 Problem Diastolic dysfunction I51.9 Jan, Active 0724435 Problem Osteoporosis M81.0 Dec, Active 38505616 Problem Generalized abdominal pain R10.84 Sep, Active 121554512 Problem Stage 1 skin ulcer of sacral region L98.429 Active Problem Closed fracture of left distal tibia S82.302A Jan, Active 65486333 Problem Rotator cuff tendonitis M75.80 11 Mar, 2012 Active 353068894 Problem Iron deficiency anemia secondary to inadequate dietary iron intake D50.8 Active [id number] ALLERGIES No Information ENCOUNTERS Encounter Location Date Diagnosis [facility] [address] [address] Apr, [facility] [id number] [address] March, [address] [address] Feb, [address] [address] Feb, [facility] [id number] [place] [address] Jan, [address] [address] Jan, Diastolic dysfunction I51.9 ; Rheumatoid arthritis M06.9 ; Ulcerative colitis K51.90 ; Essential hypertension I10 ; Moderate episode of recurrent major depressive disorder F33.1 and Iron deficiency anemia secondary to inadequate dietary iron intake D50.[address] [address] Jan, [address] [address] Jan, Acute bronchitis, unspecified organism J20.9 and 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 [facility] [id number] [place] [address] Dec, [address] [address] Dec, [facility] [address] [place] [address] Nov, Viral upper respiratory illness J06.9 and Nausea alone R11.0 [facility] [id number] [address] Oct, [facility] [id number] [place] [address] Oct, [facility] [place] [facility] [address] [id number] [place] [address] Oct, [facility] [place] [facility] [address] [id number] [place] [address] Aug, [facility] [place] [facility] [address] [id number] [place] [address] March, [facility] [place] [facility] [address] [id number] [place] [address] Feb, [facility] [place] [facility] [address] [id number] [place] [address] Feb, [facility] [place] [facility] [address] [id number] [place] [address] Jan, [facility] [place] [facility] [address] [id number] [place] [address] Jan, [facility] [place] [facility] [address] [id number] [place] [address] Oct, [facility] [place] [facility] [address] [id number] [place] [address] Oct, [facility] [place] [facility] [address] [id number] [place] [address] Oct, [facility] [place] [facility] [address] [id number] [place] [address] Sep, [facility] [place] [facility] [address] [id number] [address] Sep, [facility] [place] [facility] [address] [id number] [place] [address] Sep, [facility] [place] [facility] [address] [id number] [place] [address] Sep, [facility] [place] [facility] [address] [facility] [id number] [place] [address] Sep, [facility] [place] [facility] [address] [id number] [place] [address] 06 Aug, 2013 [facility] [place] [facility] [address] [id number] [place] [address] Aug, [facility] [place] [facility] [address] [id number] [place] [address] Jul, 2013 [facility] [place] [facility] [address] [id number] [place] [address] Jul, 2013 [facility] [place] [facility] [address] [id number] [place] [address] 10 Jul, 2013 [facility] [place] [facility] [address] [id number] [place] [address] 10 Jul, 2013 [facility] [place] [facility] [address] [id number] [place] [address] 08 Jul, 2013 [facility] [place] [facility] [address] [id number] [place] [address] Jul, 2013 [facility] [place] [facility] [address] [id number] [place] [address] May, 2013 [facility] [place] [facility] [address] [id number] [place] [address] May, 2013 [facility] [place] [facility] [address] [id number] [place] [address] May, [facility] [place] [facility] [address] [id number] [place] [address] May, [facility] [place] [facility] [address] [id number] [place] [address] May, [facility] [place] [facility] [address] [id number] [place] [address] May, [facility] [place] [facility] [address] [id number] [place] [address] Apr, [facility] [place] [facility] [address] [id number] [place] [address] Apr, [facility] [place] [facility] [address] [id number] [place] [address] Apr, [facility] [place] [facility] [address] [id number] [place] [address] Apr, [facility] [place] [facility] [address] [id number] [place] [address] Apr, [facility] [place] [facility] [address] [id number] [place] [address] Apr, [facility] [place] [facility] [address] [id number] [place] [address] Apr, [facility] [place] [facility] [address] [id number] [place] [address] Apr, [facility] [place] [facility] [address] [id number] [place] [address] March, [facility] [place] [facility] [address] [id number] [place] [address] March, [facility] [place] [facility] [address] [id number] [place] [address] March, [facility] [place] [facility] [address] [id number] [place] [address] Feb, [facility] [place] [facility] [address] [id number] [place] [address] Feb, [facility] [place] [facility] [address] [id number] [place] [address] Feb, [facility] [place] [facility] [address] [id number] [place] [address] Feb, [facility] [place] [facility] [address] [id number] [place] [address] Feb, [facility] [place] [facility] [address] [id number] [place] [address] Feb, [facility] [place] [facility] [address] [id number] [place] [address] Feb, [facility] [address] [id number] [place] [address] Feb, [facility] [address] [id number] [place] [address] Jan, [facility] [address] [id number] [place] [address] Jan, [facility] [address] [id number] [place] [id number] Dec, [facility] [address] [id number] [place] [address] Dec, [facility] [address] [id number] [place] [address] Dec, [facility] [address] [id number] [place] [address] Dec, [facility] [address] [id number] [place] [address] Dec, [facility] [address] [id number] [place] [address] Nov, [facility] [address] [id number] [place] [address] Nov, [facility] [address] [id number] [place] [address] Nov, [facility] [place] [facility] [address] [id number] [place] [address] Nov, [facility] [place] [facility] [address] [id number] [place] [address] Nov, [facility] [place] [facility] [address] [id number] [place] [address] Nov, [facility] [place] [facility] [address] [id number] [place] [address] Oct, [facility] [place] [facility] [address] [id number] [place] [address] Oct, [facility] [address] [id number] [place] [address] Sep, [facility] [place] [facility] [address] [id number] [place] [address] Sep, [facility] [place] [facility] [address] [id number] [place] [address] Sep, [facility] [place] [facility] [address] [id number] [place] [address] Sep, [facility] [place] [facility] [address] [id number] [place] [address] Sep, [facility] [place] [facility] [address] [id number] [place] [address] Sep, [facility] [place] [facility] [address] [id number] [place] [address] Aug, [facility] [place] [facility] [address] [id number] [place] [address] Aug, [facility] [place] [facility] [address] [id number] [place] [address] May, [facility] [place] [facility] [address] [id number] [place] [address] May, [facility] [place] [facility] [address] [id number] [place] [address] May, [facility] [place] [facility] [address] [id number] [place] [address] May, [facility] [place] [facility] [address] [id number] [place] [address] Apr, [facility] [place] [facility] [address] [id number] [place] [address] Feb, [facility] [place] [facility] [address] [id number] [place] [address] Jan, [facility] [address] [id number] [place] [address] Nov, [facility] [place] [facility] [address] [id number] [place] [address] Nov, [facility] [place] [facility] [address] [id number] [place] [address] Nov, [facility] [place] [facility] [address] [id number] [place] [address] Nov, [facility] [place] [facility] [address] [id number] [place] [address] Oct, [facility] [place] [facility] [address] [id number] [place] [address] 31 Oct, 2012 [facility] [place] [facility] [address] [id number] [place] [address] Oct, [facility] [place] [facility] [address] [id number] [place] [address] 28 Oct, 2012 [facility] [place] [facility] [address] [id number] [place] [address] Oct, [facility] [place] [facility] [address] [id number] [place] [address] 27 Oct, 2012 [facility] [place] [facility] [address] [id number] [place] [address] Oct, [facility] [place] [facility] [address] [id number] [address] 13 Oct, 2012 [facility] [place] [facility] [address] [id number] [place] [address] Sep, [facility] [place] [facility] [address] [id number] [place] [address] 13 Sep, 2012 [facility] [place] [facility] [address] [id number] [place] [address] 16 Aug, 2012 [facility] [place] [facility] [address] [id number] [place] [address] Aug, [facility] [place] [facility] [address] [id number] [place] [address] Jul, [facility] [place] [facility] [address] [id number] [place] [address] Jul, [facility] [place] [facility] [address] [id number] [place] [address] Jun, [facility] [place] [facility] [address] [id number] [place] [address] Jun, [facility] [place] [facility] [address] [id number] [place] [address] Jun, [facility] [place] [facility] [address] [id number] [place] [address] Jun, [facility] [place] [facility] [address] [id number] [place] [address] May, [facility] [place] [facility] [address] [id number] [place] [address] May, [facility] [place] [facility] [address] [id number] [place] [address] May, [facility] [place] [facility] [address] [id number] [place] [address] May, [facility] [place] [facility] [address] [id number] [place] [address] May, [facility] [place] [facility] [address] [id number] [place] [address] May, [facility] [place] [facility] [address] [id number] [place] [address] Apr, [facility] [place] [facility] [address] [id number] [place] [address] March, [facility] [place] [facility] [address] [id number] [place] [address] March, [facility] [place] [facility] [address] [id number] [place] [address] 30 Feb, 2012 [facility] [place] [facility] [address] [id number] [place] [address] 20 Feb, 2012 [facility] [place] [facility] [address] [id number] [place] [address] 17 Feb, 2012 [facility] [place] [facility] [address] [id number] [place] [address] 04 Feb, 2012 [facility] [place] [facility] [address] [id number] [place] [address] Jan, [facility] [place] [facility] [address] [id number] [place] [address] Dec, [facility] [address] [id number] [place] [address] Nov, [facility] [address] [id number] [place] [address] Nov, [facility] [address] [id number] [place] [address] Nov, [facility] [address] [id number] [place] [address] Oct, [facility] [place] [facility] [address] [id number] [place] [address] 19 Oct, 2011 [facility] [place] [facility] [address] [id number] [place] [address] 15 Sep, 2011 [facility] [place] [facility] [address] [id number] [place] [address] 15 Sep, 2011 [facility] [place] [facility] [address] [id number] [place] [address] 14 Oct, 2010 [facility] [place] [facility] [address] [id number] [place] [address] 30 Sep, 2010 [facility] [place] [facility] [address] [id number] [place] [address] Aug, [facility] [address] [facility] [id number] [place] [address] Aug, IMMUNIZATIONS No Known Immunizations SOCIAL HISTORY Never Assessed REASON FOR VISIT EMR-[facility] PLAN OF CARE [...]
--- OUTSIDE RECORDS SUMMARY | 2019-05-11 13:47 | XMS REPORT ---
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 May, Active 447474048 Problem Hypokalemia E87.6 March, Active 40793834 Problem SOB (shortness of breath) R06.02 Nov, Active 643375563 Problem CKD (chronic kidney disease) stage 3, GFR 30-59 ml/min N18.3 Apr, Active 262556004 Problem Ulcerative colitis K51.90 Jul, Active 72005674 Problem Hyperlipidemia E78.5 Aug, Active 95279430 Problem Migraine G43.909 Aug, Active 08872831 Problem Diarrhea R19.7 Sep, Active 79852577 Problem Rheumatoid arthritis M06.9 Sep, Active 08625077 Problem Anemia D64.9 Sep, Active 729505918 Problem 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, 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 Active Problem Moderate episode of recurrent major depressive disorder F33.1 Active 860452891 Problem PVC (premature ventricular contraction) I49.3 Nov, Active 13099118 Problem Chronic pain G89.29 Aug, Active 12741816 Problem Essential hypertension I10 Active 05812843 Problem Diastolic dysfunction I51.9 Jan, Active 7234131 Problem Osteoporosis M81.0 Dec, Active 70098968 Problem Generalized abdominal pain R10.84 Sep, Active 380715014 Problem Stage 1 skin ulcer of sacral region L98.429 Active Problem Closed fracture of left distal tibia S82.302A Jan, Active 24735155 Problem Rotator cuff tendonitis M75.80 11 Mar, 2012 Active 009063231 Problem Iron deficiency anemia secondary to inadequate dietary iron intake D50.8 Active [id number] ALLERGIES No Information ENCOUNTERS Encounter Location Date Diagnosis [facility] [address] [address] Apr, [facility] [id number] [address] March, [address] [address] Feb, [address] [address] Feb, 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 [id number] [place] [address] Dec, [address] [address] Dec, [facility] [address] [place] [address] Nov, Viral upper respiratory illness J06.9 [address] alone R11.0 [facility] [id number] [address] Oct, [facility] [id number] [place] [address] Oct, [facility] [place] [facility] [address] [id number] [place] [address] Oct, [facility] [place] [facility] [address] [id number] [place] [address] Aug, [facility] [place] [facility] [address] [id number] [place] [address] March, [facility] [place] [facility] [address] [id number] [place] [address] Feb, [facility] [place] [facility] [address] [id number] [place] [address] Feb, [facility] [place] [facility] [address] [id number] [place] [address] Jan, [facility] [place] [facility] [address] [id number] [place] [address] Jan, [facility] [place] [facility] [address] [id number] [place] [address] Oct, [facility] [place] [facility] [address] [id number] [place] [address] Oct, [facility] [place] [facility] [address] [id number] [place] [address] Oct, [facility] [place] [facility] [address] [id number] [place] [address] Sep, [facility] [place] [facility] [address] [id number], [place] [address] Sep, [facility] [place] [facility] [address] [id number] [place] [address] Sep, [facility] [place] [facility] [address] [id number] [place] [address] Sep, [facility] [place] [facility] [address] [facility] [id number] [place] [address] Sep, [facility] [place] [facility] [address] [id number] [place] [address] 06 Aug, 2013 [facility] [place] [facility] [address] [id number] [place] [address] Aug, [facility] [place] [facility] [address] [id number] [place] [address] Jul, 2013 [facility] [place] [facility] [address] [id number] [place] [address] Jul, 2013 [facility] [place] [facility] [address] [id number] [place] [address] 10 Jul, 2013 [facility] [place] [facility] [address] [id number] [place] [address] 10 Jul, 2013 [facility] [place] [facility] [address] [id number] [place] [address] 08 Jul, 2013 [facility] [place] [facility] [address] [id number] [place] [address] Jul, 2013 [facility] [place] [facility] [address] [id number] [place] [address] May, 2013 [facility] [place] [facility] [address] [id number] [place] [address] May, 2013 [facility] [place] [facility] [address] [id number] [place] [address] May, [facility] [place] [facility] [address] [id number] [place] [address] May, [facility] [place] [facility] [address] [id number] [place] [address] May, [facility] [place] [facility] [address] [id number] [place] [address] May, [facility] [place] [facility] [address] [id number] [place] [address] Apr, [facility] [place] [facility] [address] [id number] [place] [address] Apr, [facility] [place] [facility] [address] [id number] [place] [address] Apr, [facility] [place] [facility] [address] [id number] [place] [address] Apr, [facility] [place] [facility] [address] [id number] [place] [address] Apr, [facility] [place] [facility] [address] [id number] [place] [address] Apr, [facility] [place] [facility] [address] [id number] [place] [address] Apr, [facility] [place] [facility] [address] [id number] [place] [address] Apr, [facility] [place] [facility] [address] [id number] [place] [address] March, [facility] [place] [facility] [address] [id number] [place] [address] March, [facility] [place] [facility] [address] [id number] [place] [address] March, [facility] [place] [facility] [address] [id number] [place] [address] Feb, [facility] [place] [facility] [address] [id number] [place] [address] Feb, [facility] [place] [facility] [address] [id number] [place] [address] Feb, [facility] [place] [facility] [address] [id number] [place] [address] Feb, [facility] [place] [facility] [address] [id number] [place] [address] Feb, [facility] [place] [facility] [address] [id number] [place] [address] Feb, [facility] [place] [facility] [address] [id number] [place] [address] Feb, [facility] [address] [id number] [place] [address] Feb, [facility] [address] [id number] [place] [address] Jan, [facility] [address] [id number] [place] [address] Jan, [facility] [address] [id number] [place] [id number] Dec, [facility] [address] [id number] [place] [address] Dec, [facility] [address] [id number] [place] [address] Dec, [facility] [address] [id number] [place] [address] Dec, [facility] [address] [id number] [place] [address] Dec, [facility] [address] [id number] [place] [address] Nov, [facility] [address] [id number] [place] [address] Nov, [facility] [address] [id number] [place] [address] Nov, [facility] [place] [facility] [address] [id number] [place] [address] Nov, [facility] [place] [facility] [address] [id number] [place] [address] Nov, [facility] [place] [facility] [address] [id number] [place] [address] Nov, [facility] [place] [facility] [address] [id number] [place] [address] Oct, [facility] [place] [facility] [address] [id number] [place] [address] Oct, [facility] [address] [id number] [place] [address] Sep, [facility] [place] [facility] [address] [id number] [place] [address] Sep, [facility] [place] [facility] [address] [id number] [place] [address] Sep, [facility] [place] [facility] [address] [id number] [place] [address] Sep, [facility] [place] [facility] [address] [id number] [place] [address] Sep, [facility] [place] [facility] [address] [id number] [place] [address] Sep, [facility] [place] [facility] [address] [id number] [place] [address] Aug, [facility] [place] [facility] [address] [id number] [place] [address] Aug, [facility] [place] [facility] [address] [id number] [place] [address] May, [facility] [place] [facility] [address] [id number] [place] [address] May, [facility] [place] [facility] [address] [id number] [place] [address] May, [facility] [place] [facility] [address] [id number] [place] [address] May, [facility] [place] [facility] [address] [id number] [place] [address] Apr, [facility] [place] [facility] [address] [id number] [place] [address] Feb, [facility] [place] [facility] [address] [id number] [place] [address] Jan, [facility] [address] [id number] [place] [address] Nov, [facility] [place] [facility] [address] [id number] [place] [address] Nov, [facility] [place] [facility] [address] [id number] [place] [address] Nov, [facility] [place] [facility] [address] [id number] [place] [address] Nov, [facility] [place] [facility] [address] [id number] [place] [address] Oct, [facility] [place] [facility] [address] [id number] [place] [address] 31 Oct, 2012 [facility] [place] [facility] [address] [id number] [place] [address] Oct, [facility] [place] [facility] [address] [id number] [place] [address] 28 Oct, 2012 [facility] [place] [facility] [address] [id number] [place] [address] Oct, [facility] [place] [facility] [address] [id number] [place] [address] 27 Oct, 2012 [facility] [place] [facility] [address] [id number] [place] [address] Oct, [facility] [place] [facility] [address] [id number], [place] [address] 13 Oct, 2012 [facility] [place] [facility] [address] [id number] [place] [address] Sep, [facility] [place] [facility] [address] [id number] [place] [address] 13 Sep, 2012 [facility] [place] [facility] [address] [id number] [place] [address] 16 Aug, 2012 [facility] [place] [facility] [address] [id number] [place] [address] Aug, [facility] [place] [facility] [address] [id number] [place] [address] Jul, [facility] [place] [facility] [address] [id number] [place] [address] Jul, [facility] [place] [facility] [address] [id number] [place] [address] Jun, [facility] [place] [facility] [address] [id number] [place] [address] Jun, [facility] [place] [facility] [address] [id number] [place] [address] Jun, [facility] [place] [facility] [address] [id number] [place] [address] Jun, [facility] [place] [facility] [address] [id number] [place] [address] May, [facility] [place] [facility] [address] [id number] [place] [address] May, [facility] [place] [facility] [address] [id number] [place] [address] May, [facility] [place] [facility] [address] [id number] [place] [address] May, [facility] [place] [facility] [address] [id number] [place] [address] May, [facility] [place] [facility] [address] [id number] [place] [address] May, [facility] [place] [facility] [address] [id number] [place] [address] Apr, [facility] [place] [facility] [address] [id number] [place] [address] March, [facility] [place] [facility] [address] [id number] [place] [address] March, [facility] [place] [facility] [address] [id number] [place] [address] 30 Feb, 2012 [facility] [place] [facility] [address] [id number] [place] [address] 20 Feb, 2012 [facility] [place] [facility] [address] [id number] [place] [address] 17 Feb, 2012 [facility] [place] [facility] [address] [id number] [place] [address] 04 Feb, 2012 [facility] [place] [facility] [address] [id number] [place] [address] Jan, [facility] [place] [facility] [address] [id number] [place] [address] Dec, [facility] [address] [id number] [place] [address] Nov, [facility] [address] [id number] [place] [address] Nov, [facility] [address] [id number] [place] [address] Nov, [facility] [address] [id number] [place] [address] Oct, [facility] [place] [facility] [address] [id number] [place] [address] 19 Oct, 2011 [facility] [place] [facility] [address] [id number] [place] [address] 15 Sep, 2011 [facility] [place] [facility] [address] [id number] [place] [address] 15 Sep, 2011 [facility] [place] [facility] [address] [id number] [place] [address] 14 Oct, 2010 [facility] [place] [facility] [address] [id number] [place] [address] 30 Sep, 2010 [facility] [place] [facility] [address] [id number] [place] [address] Aug, [facility] [address] [facility] [id number] [place] [address] Aug, IMMUNIZATIONS No Known Immunizations SOCIAL HISTORY Never Assessed REASON FOR VISIT [place] [place] VITAL SIGNS MEDICATIONS Unknown [...]
--- OUTSIDE RECORDS SUMMARY | 2019-05-11 13:51 | XMS REPORT | Continuity of Care Document ---
Author Organization Unknown Address Unknown Allergies Active Description Code Type Severity Reaction Onset Reported/Identified Relationship to Patient Clinical Status Yes SULFAMETHOXAZOLE-TRIMETHOPRIM SULFAMETHOXAZOLE-TRI SEVERE Yes SULFAMETHOXAZOLE-TRIMETHOPRIM SEVERE DERMATOLOGICAL - NILS Yes SULFAMETHOXAZOLE-TRIMETHOPRIM SEVERE SEVERE Yes sulfa drug Drug Allergy 09/19/2011 Yes Sulfa (Sulfonamide Antibiotics) [id number] Drug Allergy Unknown N/A 06/10/2015 Medications Medication Packaging Start Date Stop Date Route Dosage Sig ONDANSETRON VIAL INJ 4 MG/2CC (ZOFRAN 2CC VIAL) MG 01/12/2017 01/12/2017 PRN ONCE D5 1/2 NS 1000CC IV BAG INJ 0 ml 01/12/2017 01/19/2017 CONTINUOUSEVERY 0 Hour LOPERAMIDE CAP 2 [...] Daily&0900 MELOXICAM TAB 7.5 MG (MOBIC) MG 01/13/2017 01/20/2017 PRN Daily AMLODIPINE TAB 5 MG (NORVASC) [...] CAP 300 MG (NEURONTIN) Dose(s) 07/23/2017 07/30/2017 BID&0800,2000 FAMOTIDINE VIAL INJ 20 MG/2CC (PEPCID VIAL) MG 07/23/2017 07/30/2017 BID&0800,2000 Memantine oral tablet 5mg (NAMENDA) Dose(s) 07/23/2017 [...] TAB 1200 MG (LIALDA) MG 01/12/2018 01/19/2018 BID&0800,1999 Nystatin top powder (Mycostatin) APPLICATION 01/12/2018 01/26/2018 [...] QID&0600,1100,1600,2100 MELOXICAM TAB 7.5 MG (MOBIC) MG 01/13/2018 01/20/2018 PRN Daily PANTOPRAZOLE TAB 40 MG (PROTONIX) Dose(s) 01/13/2018 01/22/2018 Daily&0900 ARIPIPRAZOLE TAB 10 MG (ABILIFY) Dose(s) 01/13/2018 01/19/2018 Daily&0900 DULOXETINE CAP 30 MG (CYMBALTA) Dose(s) 01/13/2018 01/19/2018 Daily&0900 HYDROCHLOROTHIAZIDE CAP 12.5 MG (HYDRODIURIL) Dose(s) 01/13/2018 01/19/2018 Daily&0900 AMLODIPINE TAB 5 MG (NORVASC) Dose(s) 01/13/2018 01/19/2018 Daily&0900 METOPROLOL TAB 25 MG (LOPRESSOR) Dose(s) 01/13/2018 01/19/2018 Daily&0900 VITAMIN D-3 TAB 1000 UNITS (VITAMIN D-3) Dose(s) 01/13/2018 01/19/2018 Daily&0900 LEVOTHYROXINE TAB 75 MCG (SYNTHROID) Dose(s) 01/13/2018 01/19/2018 Daily&0900 PANTOPAZOLE VIAL INJ 40 MG (PROTONIX IV) MG 01/13/2018 01/22/2018 Daily&0900 NORMAL SALINE W/KCL 40MEQ IV (SALINE IV BAG [id number]) MLS 01/13/2018 01/20/2018 CONTINUOUSEVERY 0 Hour LACTOBACILLUS BULGARIS TAB (LACTINEX BULGARIS) tab 01/13/2018 01/23/2018 QID&0800,1200,1700,2200 METOPROLOL TAB 25 MG (LOPRESSOR) MG 01/13/2018 01/13/2018 ONCE&1215 NORMAL SALINE W/KCL 40MEQ IV (SALINE IV BAG [id number]) MLS 01/13/2018 01/20/2018 CONTINUOUSEVERY 0 Hour NORMAL SALINE W/KCL 40MEQ IV (SALINE IV BAG [id number]) MLS 01/14/2018 01/21/2018 CONTINUOUSEVERY 0 Hour MESALAMINE TAB 1200 MG (LIALDA) MG 01/14/2018 01/21/2018 BID&0800,2000 SIMVASTATIN TAB 10 MG (ZOCOR) MG 01/14/2018 01/20/2018 QPM&2000 TRAZODONE TAB 50 MG (DESYREL) MG 01/14/2018 01/20/2018 QHS&2100 MELOXICAM TAB 7.5 MG (MOBIC) MG 01/15/2018 01/21/2018 Daily&0900 METOPROLOL-XL TAB 50 MG (TOPROL [...] TRAMADOL TAB 50 MG (ULTRAM) MG 01/15/2018 01/15/2018 ONCE&2245 TRAMADOL TAB 50 MG (ULTRAM) MG 01/16/2018 01/26/2018 PRN BID Aripiprazole oral tablet 5mg [...] 02/09/2018 Daily&0900 Aripiprazole oral tablet 5mg (Abilify) Dose(s) 02/03/2018 02/09/2018 Daily&0900 DULOXETINE CAP 30 MG (CYMBALTA) Dose(s) 02/03/2018 03/04/2018 Daily&0900 FUROSEMIDE TAB 40 MG (LASIX) Dose(s) 02/03/2018 02/09/2018 Daily&0900 LEVOTHYROXINE TAB 75 MCG (SYNTHROID) Dose(s) 02/03/2018 03/04/2018 Daily&0900 POTASSIUM CHLORIDE TAB 20 MEQ (K-DUR) Dose(s) 02/03/2018 02/10/2018 BID&0800,2000 Aripiprazole oral tablet 5mg (Abilify) Dose(s) 02/03/2018 03/04/2018 QPM&2000 GABAPENTIN CAP 100 MG (NEURONTIN) Dose(s) 02/03/2018 [...] 02/17/2018 QPM&2000 Aripiprazole oral tablet 5mg (Abilify) Dose(s) 02/11/2018 03/12/2018 QPM&2000 TRAZODONE TAB 50 MG (DESYREL) Dose(s) 02/11/2018 [...] 08/01/2018 ONCE&1439 Morphine IV cartridge 4mg/cc MG 08/01/2018 08/08/2018 PRN Q4H DEXAMETHASONE VIAL INJ 4 MG/CC (DECADRON VIAL) MG 08/04/2018 08/04/2018 ONCE&0053 KETOROLAC VIAL INJ 30 MG/CC (TORADOL VIAL) MG 08/04/2018 08/04/2018 ONCE&0053 METHYLPREDNISOLONE VIAL INJ 40 MG/CC (DEPO-MEDROL VIAL) MG 08/04/2018 08/04/2018 ONCE&0053 Heparin, FLUSH IV syringe 500 units UNITS 08/16/2018 08/16/2018 ONCE&1012 KETOROLAC VIAL INJ 30 MG/CC (TORADOL VIAL) MG 08/16/2018 08/16/2018 ONCE&1012 POTASSIUM CHLORIDE TAB 20 MEQ (K-DUR) MEQ 05/02/2019 05/02/2019 ONCE&1405 CEPHALEXIN CAP 500 MG (KEFLEX) MG 05/05/2019 05/05/2019 ONCE&2259 KETOROLAC VIAL INJ 30 MG/CC (TORADOL VIAL) MG 05/10/2019 05/10/2019 PRN ONCE PROMETHAZINE VIAL INJ 25 MG/CC (PHENERGAN VIAL) MG 05/10/2019 05/10/2019 ONCE&0236 DIPHENHYDRAMINE VIAL INJ 50 MG/CC (BENADRYL VIAL) MG 05/10/2019 05/10/2019 ONCE&0236 NORMAL SALINE 500CC IV BAG INJ 0.9 % (NS 500CC IV BAG) ml 05/10/2019 05/10/2019 ONCE&0236 NORMAL SALINE 500CC IV BAG INJ 0.9 % (NS 500CC IV BAG) ml 05/10/2019 05/10/2019 ONCE&0357 Heparin, FLUSH IV syringe 500 units UNITS 05/10/2019 05/10/2019 ONCE&0436 Heparin, FLUSH IV syringe 500 units UNITS 05/10/2019 05/19/2019 BID&0800,2000 Problems Date Dx Coded Attending Type Code Diagnosis Diagnosed By 07/28/2010 295.70 P SCHIZO AFFECTIVE 07/28/2010 ESPITIA ROOSEVELT [facility] 295.70 P SCHIZO AFFECTIVE 07/28/2010 NUPUR ALBERT [facility] 295.70 P SCHIZO AFFECTIVE 07/28/2010 295.70 P SCHIZO AFFECTIVE 07/28/2010 295.70 P SCHIZO AFFECTIVE 07/28/2010 ANDER GRANT DO 295.70 P SCHIZO AFFECTIVE 07/28/2010 ESPITIA ROOSEVELT [facility] 295.70 P SCHIZO AFFECTIVE 07/28/2010 ESPITIA ROOSEVELT [facility] 295.70 P SCHIZO AFFECTIVE 07/28/2010 ESPITIA ROOSEVELT [facility] 295.70 P SCHIZO AFFECTIVE 07/28/2010 ESPITIA ROOSEVELT [facility] 295.70 P SCHIZO AFFECTIVE 07/28/2010 ESPITIA ROOSEVELT [facility] 295.70 P SCHIZO AFFECTIVE 07/28/2010 ESPITIA ROOSEVELT [facility] 295.70 P SCHIZO AFFECTIVE 07/28/2010 SAMARA ESPITIA APRN 295.70 P SCHIZO AFFECTIVE 07/28/2010 MICHELLE COLEY 295.70 P SCHIZO AFFECTIVE 11/06/2011 465.9 UPPER RESPIRATORY INFECTION 11/06/2011 V65.42 COUNSELING - SMOKING CESSATION 11/06/2011 NUPUR LEIVAValdemar SAMARA BROWN 465.9 UPPER RESPIRATORY INFECTION 11/06/2011 NUPUR LEIVAValdemar SAMARA BROWN V65.42 COUNSELING - SMOKING CESSATION 11/06/2011 NUPUR LEIVAValdemar SAMARA BROWN 465.9 UPPER RESPIRATORY INFECTION 11/06/2011 NUPUR LEIVAValdemar SAMARA BROWN V65.42 COUNSELING - SMOKING CESSATION 11/06/2011 465.9 UPPER RESPIRATORY INFECTION 11/06/2011 V65.42 COUNSELING - SMOKING CESSATION 11/06/2011 465.9 UPPER RESPIRATORY INFECTION 11/06/2011 V65.42 COUNSELING - SMOKING CESSATION 11/06/2011 GRANT DO ANDER K 465.9 UPPER RESPIRATORY INFECTION 11/06/2011 GRANT DO ANDER K V65.42 COUNSELING - SMOKING CESSATION 11/06/2011 NUPUR LEIVAValdemar SAMARA BROWN 465.9 UPPER RESPIRATORY INFECTION 11/06/2011 NUPUR LEIVAValdemar SAMARA BROWN V65.42 COUNSELING - SMOKING CESSATION 11/06/2011 NUPUR LEIVAValdemar SAMARA BROWN 465.9 UPPER RESPIRATORY INFECTION 11/06/2011 NUPUR LEIVAValdemar SAMARA BROWN V65.42 COUNSELING - SMOKING CESSATION 11/06/2011 NUPUR LEIVAValdemar SAMARA BROWN 465.9 UPPER RESPIRATORY INFECTION 11/06/2011 NUPUR LEIVAValdemar SAMARA BROWN V65.42 COUNSELING - SMOKING CESSATION 11/06/2011 NUPUR LEIVAValdemar SAMARA BROWN 465.9 UPPER RESPIRATORY INFECTION 11/06/2011 NUPUR LEIVAValdemar SAMARA BROWN V65.42 COUNSELING - SMOKING CESSATION 11/06/2011 NUPUR LEIVAValdemar SAMARA BROWN 465.9 UPPER RESPIRATORY INFECTION 11/06/2011 NUPUR LEIVAValdemar SAMARA BROWN V65.42 COUNSELING - SMOKING CESSATION 11/06/2011 NUPUR LEIVAValdemar SAMARA BROWN 465.9 UPPER RESPIRATORY INFECTION 11/06/2011 NUPUR LEIVAValdemar SAMARA BROWN V65.42 COUNSELING - SMOKING CESSATION 11/06/2011 NUPUR LEIVAValdemar SAMARA BROWN 465.9 UPPER RESPIRATORY INFECTION 11/06/2011 ESPITIA POOL TECHNICIAN, SAMARA KEVIN V65.42 COUNSELING - SMOKING CESSATION 11/06/2011 MICHELLE COLEY M 465.9 UPPER RESPIRATORY INFECTION 11/06/2011 MICHELLE COLEY V65.42 COUNSELING - SMOKING CESSATION 11/10/2011 466.0 BRONCHITIS, ACUTE 11/10/2011 ESPITIA POOL TECHNICIAN, SAMARA KEVIN 466.0 BRONCHITIS, ACUTE 11/10/2011 ESPITIA POOL TECHNICIAN, SAMARA KEVIN 466.0 BRONCHITIS, ACUTE 11/10/2011 466.0 BRONCHITIS, ACUTE 11/10/2011 466.0 BRONCHITIS, ACUTE 11/10/2011 ANDER GRANT DO K 466.0 BRONCHITIS, ACUTE 11/10/2011 ESPITIA POOL TECHNICIAN, SAMARA KEVIN 466.0 BRONCHITIS, ACUTE 11/10/2011 ESPITIA POOL TECHNICIAN, SAMARA KEVIN 466.0 BRONCHITIS, ACUTE 11/10/2011 ESPITIA POOL TECHNICIAN, SAMARA KEVIN 466.0 BRONCHITIS, ACUTE 11/10/2011 ESPITIA POOL TECHNICIAN, SAMARA KEVIN 466.0 BRONCHITIS, ACUTE 11/10/2011 ESPITIA POOL TECHNICIAN, SAMARA KEVIN 466.0 BRONCHITIS, ACUTE 11/10/2011 ESPITIA POOL TECHNICIAN, SAMARA KEVIN 466.0 BRONCHITIS, ACUTE 11/10/2011 ESPITIA POOL TECHNICIAN, SAMARA KEVIN 466.0 BRONCHITIS, ACUTE 11/10/2011 MICHELLE COLEY M 466.0 BRONCHITIS, ACUTE 06/03/2013 ANDER GRANT DO K 894.0 WOUND OPEN LOWER LIMB 06/03/2013 ESPITIA POOL TECHNICIAN, SMAARA KEVIN 894.0 WOUND OPEN LOWER LIMB 06/03/2013 ESPITIA POOL TECHNICIAN, SAMARA KEVIN 894.0 WOUND OPEN LOWER LIMB 06/03/2013 ESPITIA POOL TECHNICIAN, SAMARA KEVIN 894.0 WOUND OPEN LOWER LIMB 06/03/2013 ESPITIA POOL TECHNICIAN, SAMARA KEVIN 894.0 WOUND OPEN LOWER LIMB 06/03/2013 ESPITIA POOL TECHNICIAN, SAMARA KEVIN 894.0 WOUND OPEN LOWER LIMB 06/03/2013 ESPITIA POOL TECHNICIAN, SAMARA KEVIN 894.0 WOUND OPEN LOWER LIMB 06/03/2013 ESPITIA POOL TECHNICIAN, SAMARA KEVIN 894.0 WOUND OPEN LOWER LIMB 06/03/2013 MICHELLE COLEY 894.0 WOUND OPEN LOWER LIMB 09/15/2013 SAMARA ESPITIA APRN 294.20 DEMENTIA UNSPECIFIED WITHOUT BEHAVIORAL DISTURBANCE 09/15/2013 SAMARA ESPITIA APRN 294.20 DEMENTIA UNSPECIFIED WITHOUT BEHAVIORAL DISTURBANCE 09/15/2013 NUPUR ALBERT, SAMARA BROWN 294.20 DEMENTIA UNSPECIFIED WITHOUT BEHAVIORAL DISTURBANCE 09/15/2013 NUPUR ALBERT, SAMARA BROWN 294.20 DEMENTIA UNSPECIFIED WITHOUT BEHAVIORAL DISTURBANCE 09/15/2013 NUPUR ALBERT, SAMARA BROWN 294.20 DEMENTIA UNSPECIFIED WITHOUT BEHAVIORAL DISTURBANCE 09/15/2013 NUPUR ALBERT, SAMARA BROWN 294.20 DEMENTIA UNSPECIFIED WITHOUT BEHAVIORAL DISTURBANCE 09/15/2013 NUPUR ALBERT, SAMARA BROWN 294.20 DEMENTIA UNSPECIFIED WITHOUT BEHAVIORAL DISTURBANCE 09/15/2013 [...] PLAS PROTEIN MET NEC 06/26/2015 SANGEETA ESCALANTE, MUKUL E Ot 285.9 ANEMIA NOS 06/26/2015 SANGEETA ESCALANTE, MUKUL E Ot 294.9 UNSPEC 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 06/26/2015 SANGEETA ESCALANTE, MUKUL E Ot 401.9 HYPERTENSION NOS 06/26/2015 SANGEETA ESCALANTE, MUKUL E Ot 458.9 HYPOTENSION NOS 06/26/2015 SANGEETA ESCALANTE, MUKUL E Ot 530.81 ESOPHAGEAL REFLUX 06/26/2015 SANGEETA ESCALANTE, MUKUL E Ot 707.05 PRESSURE ULCER, BUTTOCK 06/26/2015 SANGEETA ESCALANTE, MUKUL E Ot 707.22 PRESSURE ULCER, STAGE II 06/26/2015 SANGEETA ESCALANTE, UMKUL E Ot 714.0 RHEUMATOID ARTHRITIS 06/26/2015 SANGEETA [...] E Ot V57.89 REHABILITATION PROC NEC 01/12/2017 Ragland, Marie-Miranda A 428.9 01/12/2017 Ragland, [...] FAILURE, UNSPECIFIED 01/13/2017 Ragland, Marie-Miranda W K21.9 GASTRO- ESOPHAGEAL REFLUX DISEASE WITHOUT ESOPHAGITIS 01/13/2017 Ragland, Marie-Miranda W R73.9 HYPERGLYCEMIA, UNSPECIFIED 04/16/2017 LION ESCALANTE, YURI Ot K52.839 MICROSCOPIC COLITIS, UNSPECIFIED 04/20/2017 LION ESCALANTE, YURI Ot K52.839 MICROSCOPIC COLITIS, UNSPECIFIED 06/01/2017 AMPARO ESCALANTE, RENU Bañuelos Ot M25.551 PAIN IN RIGHT HIP 06/01/2017 AMPARO ESCALANTE, RENU B Ot M41.26 OTHER IDIOPATHIC SCOLIOSIS, LUMBAR REGIO 06/01/2017 AMPARO ESCALANTE, RENU B Ot M51.36 OTHER INTERVERTEBRAL DISC DEGENERATION, 06/14/2017 AMPARO ESCALANTE, RENU B Ot M25.551 PAIN IN RIGHT HIP 06/14/2017 AMPARO ESCALANTE, RENU B Ot M41.26 OTHER IDIOPATHIC SCOLIOSIS, LUMBAR REGIO 06/14/2017 AMPARO ESCALANTE, RENU B Ot M51.36 OTHER INTERVERTEBRAL DISC DEGENERATION, 07/23/2017 [...] ELEVATED WHITE BLOOD CELL COUNT, UNSPECIFIED 07/25/2017 Tristin Laboya A E86.0 DEHYDRATION 07/25/2017 Benoit, Lorena W [...] 01/16/2018 Benoit, Lorena W E87.6 HYPOKALEMIA 01/16/2018 Beniot, Lorena W K52.9 NONINFECTIVE GASTROENTERITIS AND COLITIS, UNSPECIFIED 01/16/2018 Benoit, Lorena W R19.7 DIARRHEA, UNSPECIFIED 01/17/2018 Benoit, Lorena W 041.81 MYCOPLASMA INFECTION IN CONDITIONS CLASSIFIED ELSEWHERE AND OF UNSPECIFIED SITE 01/17/2018 Benoit, Lorena W 244.9 01/17/2018 Benoit, Lorena W 272.4 01/17/2018 Benoit, Lorena A 276.51 01/17/2018 Benoit, Lorena W 276.8 HYPOPOTASSEMIA 01/17/2018 Benoit, Lorena W 296.20 01/17/2018 Benoit, Lorena W 357.9 01/17/2018 Benoit, Lorena W 401.0 01/17/2018 Benoit, Lorena W 558.9 OTHER AND UNSPECIFIED NONINFECTIOUS GASTROENTERITIS AND COLITIS 01/17/2018 Benoit, Lorena W 714.0 01/17/2018 Benoit, Lorena W 719.45 01/17/2018 Benoit, Lorena W 787.91 DIARRHEA 01/17/2018 Benoit, Lorena W 791.9 01/17/2018 Benoit, Lorena W A49.3 MYCOPLASMA INFECTION, UNSPECIFIED SITE 01/17/2018 Benoit, Lorena W B96.0 01/17/2018 Benoit, Lorena W E03.9 HYPOTHYROIDISM, UNSPECIFIED 01/17/2018 [facility], Lorena W E78.5 01/17/2018 [facility], Lorena A E86.0 DEHYDRATION 01/17/2018 [facility], Lorena W E87.6 HYPOKALEMIA 01/17/2018 [facility], Lorena W F32.9 01/17/2018 [facility], Lorena W G62.9 POLYNEUROPATHY, UNSPECIFIED 01/17/2018 [facility], Lorena W I10 01/17/2018 [facility], Lorena W K52.9 NONINFECTIVE GASTROENTERITIS AND COLITIS, UNSPECIFIED 01/17/2018 [facility], Lorena W M06.9 01/17/2018 [facility], Lorena W M25.551 PAIN IN RIGHT HIP 01/17/2018 [facility], Lorena W R19.7 DIARRHEA, UNSPECIFIED 01/17/2018 [facility], Lorena W R82.99 OTHER ABNORMAL FINDINGS IN [...] Jac Vanessa 787.91 DIARRHEA 02/11/2018 Jac Vanessa A K21.9 GASTRO-ESOPHAGEAL REFLUX DISEASE WITHOUT ESOPHAGITIS 02/11/2018 Jac Vanessa W K29.60 OTHER GASTRITIS WITHOUT BLEEDING 02/11/2018 Jac Vanessa W K44.9 DIAPHRAGMATIC HERNIA WITHOUT OBSTRUCTION OR GANGRENE 02/11/2018 Jac Vanessa W K57.30 DVRTCLOS OF LG INT W/O PERFORATION OR ABSCESS W/O BLEEDING 02/11/2018 Jac Vanessa W R19.5 OTHER FECAL ABNORMALITIES 02/11/2018 VanessaJac W R19.7 DIARRHEA, UNSPECIFIED 02/12/2018 GISELA HIGGINBOTHAM A 251.2 02/12/2018 GISELA HIGGINBOTHAM 276.8 HYPOPOTASSEMIA 02/12/2018 GISELA HIGGINBOTHAM W 285.9 ANEMIA, UNSPECIFIED 02/12/2018 GISELA HIGGINBOTHAM W 401.0 MALIGNANT ESSENTIAL HYPERTENSION 02/12/2018 GISELA HIGGINBOTHAM W 428.9 HEART FAILURE, UNSPECIFIED 02/12/2018 GISELA HIGGINBOTHAM W D64.9 ANEMIA, UNSPECIFIED 02/12/2018 GISELA HIGGINBOTHAM A E16.2 HYPOGLYCEMIA, UNSPECIFIED 02/12/2018 GISELA HIGGINBOTHAM E87.6 HYPOKALEMIA 02/12/2018 GISELA HIGGINBOTHAM W I10 ESSENTIAL (PRIMARY) HYPERTENSION 02/12/2018 GISELA HIGGINBOTHAM I50.9 HEART FAILURE, UNSPECIFIED 04/10/2018 Mac Madden W 357.9 UNSPECIFIED INFLAMMATORY AND TOXIC NEUROPATHIES 04/10/2018 Mac Madden W 401.0 MALIGNANT ESSENTIAL HYPERTENSION 04/10/2018 Mac Madden W 428.9 HEART FAILURE, UNSPECIFIED 04/10/2018 Mac Madden W 707.05 PRESSURE ULCER, BUTTOCK 04/10/2018 Mac Madden A 707.15 04/10/2018 Mac Madden W G62.9 POLYNEUROPATHY, UNSPECIFIED 04/10/2018 Mac Madden W I10 ESSENTIAL (PRIMARY) HYPERTENSION 04/10/2018 Mac Madden W I50.9 HEART FAILURE, UNSPECIFIED 04/10/2018 Mac Madden W L89.322 PRESSURE ULCER OF LEFT BUTTOCK, STAGE 2 04/10/2018 Mca Madden A L97.511 NON-PRS CHRONIC ULCER OTH PRT R FOOT LIMITED TO BRKDWN SKIN 04/10/2018 Mac Madden W V58.30 ENCOUNTER FOR CHANGE OR REMOVAL OF NONSURGICAL WOUND DRESSING 04/10/2018 Mac Madden W Z48.00 ENCOUNTER FOR CHANGE OR REMOVAL OF NONSURG WOUND DRESSING 07/26/2018 W 715.11 OSTEOARTHROSIS, LOCALIZED, PRIMARY, INVOLVING SHOULDER REGION 07/26/2018 W M19.012 PRIMARY OSTEOARTHRITIS, LEFT SHOULDER 08/01/2018 Jean Wallace W 719.41 PAIN IN JOINT INVOLVING SHOULDER REGION 08/01/2018 eJan Wallace 780.8 GENERALIZED HYPERHIDROSIS 08/01/2018 Jean Wallace 785.0 TACHYCARDIA, UNSPECIFIED 08/01/2018 Jean Wallace 786.50 UNSPECIFIED CHEST PAIN 08/01/2018 Jean Wallace 787.02 NAUSEA ALONE 08/01/2018 Jean Wallace M25.512 PAIN IN LEFT SHOULDER 08/01/2018 Jean Wallace R00.0 TACHYCARDIA, UNSPECIFIED 08/01/2018 Jean Wallace R07.9 CHEST PAIN, UNSPECIFIED 08/01/2018 Jean Wallace R11.0 NAUSEA 08/01/2018 Jean Wallace R61 GENERALIZED HYPERHIDROSIS 08/04/2018 Lewis, Jacqui A W 338.2 CHRONIC PAIN 08/04/2018 Lewis, Jacqui A A 724.5 BACKACHE, UNSPECIFIED 08/04/2018 Lewis, Jacqui A W 787.02 NAUSEA ALONE 08/04/2018 Lewis, Jacqui A W G89.29 OTHER CHRONIC PAIN 08/04/2018 Lewis, Jacqui A A M54.9 DORSALGIA, UNSPECIFIED 08/04/2018 Lewis, Jacqui A W R11.0 NAUSEA 08/05/2018 W 715.11 OSTEOARTHROSIS, [...] SITE OF RIGHT KNEE, INITIAL ENCOUNTER 08/29/2018 YURI SEYMOUR MD Ot K52.839 MICROSCOPIC COLITIS, UNSPECIFIED 08/29/2018 RENU CHRISTENSEN MD Ot M25.551 PAIN IN RIGHT HIP 08/29/2018 RENU CHRISTENSEN MD Ot M41.26 OTHER IDIOPATHIC SCOLIOSIS, LUMBAR REGIO 08/29/2018 RENU CHRISTENSEN MD Ot M51.36 OTHER INTERVERTEBRAL DISC DEGENERATION, 08/29/2018 KIRSTIN GARZA MD Ot E03.9 HYPOTHYROIDISM, UNSPECIFIED 08/29/2018 KIRSTIN GARZA MD Ot K21.9 GASTRO-ESOPHAGEAL REFLUX DISEASE WITHOUT 08/29/2018 KIRSTIN GARZA MD Ot L03.115 CELLULITIS OF RIGHT LOWER LIMB 08/29/2018 KIRSTIN GARZA MD Ot M81.0 AGE-RELATED OSTEOPOROSIS W/O CURRENT PAT 08/29/2018 KIRSTIN GARZA MD Ot Z87.01 PERSONAL HISTORY OF PNEUMONIA (RECURRENT 08/29/2018 KIRSTIN GARZA MD Ot Z88.2 ALLERGY STATUS TO SULFONAMIDES STATUS 09/28/2018 YURI SEYMOUR MD Ot K52.839 MICROSCOPIC COLITIS, UNSPECIFIED 09/28/2018 REUN CHRISTENSEN MD Ot M25.551 PAIN IN RIGHT HIP 09/28/2018 RENU CHRISTENSEN MD Ot M41.26 OTHER IDIOPATHIC SCOLIOSIS, LUMBAR REGIO 09/28/2018 RENU CHRISTENSEN MD Ot M51.36 OTHER INTERVERTEBRAL DISC DEGENERATION, 09/28/2018 DENONA MOBLEY APRN Ot E03.9 HYPOTHYROIDISM, UNSPECIFIED 09/28/2018 [...] Z87.19 PERSONAL HISTORY OF OTHER DISEASES OF 09/28/2018 DEONNA MOBLEY APRN Ot Z87.891 PERSONAL [...] Z87.19 PERSONAL HISTORY OF OTHER DISEASES OF 10/01/2018 DEONNA MOBLEY APRN Ot Z87.891 PERSONAL HISTORY OF NICOTINE DEPENDENCE 10/01/2018 DEONNA MOBLEY APRN Ot Z88.2 ALLERGY STATUS TO SULFONAMIDES STATUS 10/01/2018 DEONNA MOBLEY APRN Ot Z90.710 ACQUIRED ABSENCE OF BOTH CERVIX AND UTER 10/01/2018 DEONNA MOBLEY POOL TECHNICIAN Ot Z90.89 ACQUIRED ABSENCE OF OTHER ORGANS 10/01/2018 DEONNA MOBLEY POOL TECHNICIAN Ot 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 10/01/2018 DEONNA MOBLEY POOL TECHNICIAN Ot Z98.890 OTHER SPECIFIED POSTPROCEDURAL STATES 01/23/2019 Ot J44.9 CHRONIC OBSTRUCTIVE PULMONARY DISEASE, U 01/23/2019 Ot K44.9 DIAPHRAGMATIC HERNIA WITHOUT OBSTRUCTION 01/23/2019 Ot Z87.891 PERSONAL HISTORY OF NICOTINE DEPENDENCE 01/30/2019 Ot J44.9 CHRONIC OBSTRUCTIVE PULMONARY DISEASE, U 01/30/2019 Ot K44.9 DIAPHRAGMATIC HERNIA WITHOUT OBSTRUCTION 01/30/2019 Ot Z87.891 PERSONAL HISTORY OF NICOTINE DEPENDENCE 03/05/2019 LORENA LAWRENCE DO Ot E03.9 HYPOTHYROIDISM, UNSPECIFIED 03/05/2019 LORENA LAWRENCE DO Ot I10 ESSENTIAL (PRIMARY) HYPERTENSION 03/05/2019 LORENA LAWRENCE DO Ot K21.9 GASTRO-ESOPHAGEAL REFLUX DISEASE WITHOUT 03/05/2019 MELINDA LORENA LEDEZMA Ot K29.70 GASTRITIS, UNSPECIFIED, WITHOUT BLEEDING 03/05/2019 LORENA LAWRENCE DO Ot K44.9 DIAPHRAGMATIC HERNIA WITHOUT OBSTRUCTION 03/05/2019 LORENA LAWRENCE DO Ot M06.9 RHEUMATOID ARTHRITIS, UNSPECIFIED 03/05/2019 LORENA LAWRENCE DO Ot M81.0 AGE-RELATED OSTEOPOROSIS W/O CURRENT PAT 03/05/2019 LORENA LAWRENCE DO Ot N39.0 URINARY TRACT INFECTION, SITE NOT SPECIF 03/05/2019 LORENA LAWRENCE DO Ot R19.7 DIARRHEA, UNSPECIFIED 03/05/2019 TRISTIN LAWRENCE DOA Miriam Ot Z87.01 PERSONAL HISTORY OF PNEUMONIA (RECURRENT 03/05/2019 LORENA LAWRENCE DO Ot Z87.19 PERSONAL HISTORY OF OTHER DISEASES OF TH 03/05/2019 LORENA LAWRENCE DO Ot Z87.891 PERSONAL HISTORY OF NICOTINE DEPENDENCE 03/05/2019 LORENA LAWRENCE DO Ot Z88.2 ALLERGY STATUS TO SULFONAMIDES STATUS 03/05/2019 LORENA LAWRENCE DO Ot Z90.49 ACQUIRED ABSENCE OF OTHER SPECIFIED PART 03/05/2019 LORENA LAWRENCE DO Ot Z90.710 ACQUIRED ABSENCE OF BOTH CERVIX AND UTER 03/05/2019 [facility] LORENA Miriam Ot Z90.89 ACQUIRED ABSENCE OF OTHER ORGANS 03/05/2019 [facility] LORENA Pineda Ot Z98.890 OTHER SPECIFIED POSTPROCEDURAL STATES 03/07/2019 MELINDA LORENA Miriam Ot E03.9 HYPOTHYROIDISM, UNSPECIFIED 03/07/2019 [facility] LORENA Miriam Ot I10 ESSENTIAL (PRIMARY) HYPERTENSION 03/07/2019 [facility] LORENA K Ot K21.9 GASTRO-ESOPHAGEAL REFLUX DISEASE WITHOUT 03/07/2019 MELINDA TRISTINA Miriam Ot K29.70 GASTRITIS, UNSPECIFIED, WITHOUT BLEEDING 03/07/2019 [facility] K44.9 DIAPHRAGMATIC HERNIA WITHOUT OBSTRUCTION 03/07/2019 [facility] LORENA K Ot M06.9 RHEUMATOID ARTHRITIS, UNSPECIFIED 03/07/2019 [facility] LORENA K Ot M81.0 AGE-RELATED OSTEOPOROSIS W/O CURRENT PAT 03/07/2019 [facility] LORENA K Ot N39.0 URINARY TRACT INFECTION, SITE NOT SPECIF 03/07/2019 [facility] R19.7 DIARRHEA, UNSPECIFIED 03/07/2019 [facility] LORENA Miriam Ot Z87.01 PERSONAL HISTORY OF PNEUMONIA (RECURRENT 03/07/2019 [facility] Z87.19 PERSONAL HISTORY OF OTHER DISEASES OF TH 03/07/2019 [facility] Z87.891 PERSONAL HISTORY OF NICOTINE DEPENDENCE 03/07/2019 [facility] Z88.2 ALLERGY STATUS TO SULFONAMIDES STATUS 03/07/2019 [facility] Z90.49 ACQUIRED ABSENCE OF OTHER SPECIFIED PART 03/07/2019 [facility] LORENA Miriam Ot Z90.710 ACQUIRED ABSENCE OF BOTH CERVIX AND UTER 03/07/2019 [facility] Z90.89 ACQUIRED ABSENCE OF OTHER ORGANS 03/07/2019 [facility] LORENA K Ot Z98.890 OTHER SPECIFIED POSTPROCEDURAL STATES 05/02/2019 Gianni Gibson W 714.0 RHEUMATOID ARTHRITIS 05/02/2019 Gianni Gibson W M06.041 RHEUMATOID ARTHRITIS WITHOUT RHEUMATOID FACTOR, RIGHT HAND 05/05/2019 GISELA HIGGINBOTHAM W 682.6 CELLULITIS AND ABSCESS OF LEG, EXCEPT FOOT 05/05/2019 GISELA HIGGINBOTHAM W L03.116 CELLULITIS OF LEFT LOWER LIMB Procedures Code [place] [address] PSYCH IND W/MED CK 20 11/13/2011 71260 PSYCH IND W/MED CK 20 11/18/2012 19668 PSYCH IND W/MED CK 20 01/24/2013 Results [...] Urine-pH 5.5 5-8.5 Urine-Protein 2+ Negative Urine-Specific [place] >=1.030 1.000-1.030 Urine-WBC 2-5/HPF Urobilinogen 0.2 E.U./dL [...] 1.4 mg/dL 0.2-1.2 TP 6.2 g/dL 6.0-8.3 [facility] - 07/23/17 12:20 Anion Gap 21 6-14 BUN 15 mg/dL 5-25 Calcium 10.0 mg/dL 8.3-10.4 Chloride 99 mmol/L 95-114 CO2 30 mEq/L 22-33 Creat 1.02 mg/dL 0.50-1.50 eGFR 54 mL/min/1.73m2 >59 Glucose 117 mg/dL 70-110 Osmo 305 280-295 Potassium 3.2 mmol/L 3.5-5.3 Sodium 147 mmol/L 134-148 Sed Rate - 07/23/17 12:20 Sed Rate 2 mm/hr 9-15 [facility] - 07/24/17 07:17 Anion Gap 14 6-14 [...] 5-8.5 Urine-Protein Negative Negative Urine-RBC Rare/HPF Urine-Specific [place] 1.020 1.000-1.030 Urine-WBC 2-5/HPF Urobilinogen 1.0 E.U./dL [...] 5-8.5 Urine-Protein Trace Negative Urine-RBC Rare/HPF Urine-Specific [place] >=1.030 1.000-1.030 Urine-WBC Rare/HPF Urobilinogen 0.2 0.2-1.0 [...] Negative Negative Stool Culture - 01/12/18 17:18 CAMPYLOBACTER CULTURE [...] 5-8.5 Urine-Protein 2+ Negative Urine-RBC 0-2/HPF Urine-Specific [place] >=1.030 1.000-1.030 Urine-WBC 2-5/HPF Urobilinogen 1.0 0.2-1.0 [...] 1.2 mg/dL 0.2-1.2 TP 5.0 g/dL 6.0-8.3 01/14/18 06:55 Anion Gap 13 6-14 BUN 6 mg/dL 5-25 Calcium 8.2 mg/dL 8.3-10.4 Chloride 115 mmol/L 95-114 CO2 19 mEq/L 22-33 Creat 0.76 mg/dL 0.50-1.50 eGFR 75 mL/min/1.73m2 >59 Glucose 97 mg/dL 70-110 Osmo 293 280-295 Potassium 3.6 mmol/L 3.5-5.3 Sodium 143 mmol/L 134-148 01/15/18 07:00 Anion Gap 15 6-14 BUN 3 mg/dL 5-25 Calcium 9.2 mg/dL 8.3-10.4 Chloride 115 mmol/L 95-114 CO2 21 mEq/L 22-33 Creat 0.73 mg/dL 0.50-1.50 eGFR 79 mL/min/1.73m2 >59 Glucose 95 mg/dL 70-110 Osmo 298 280-295 Potassium 4.5 mmol/L 3.5-5.3 Sodium 146 mmol/L 134-148 [facility] 01/17/18 08:51 Anion Gap 16 6-14 BUN 4 mg/dL 5-25 Calcium 9.2 mg/dL 8.3-10.4 Chloride 105 mmol/L 95-114 CO2 26 mEq/L 22-33 Creat 0.78 mg/dL 0.50-1.50 eGFR 73 mL/min/1.73m2 >59 Glucose 102 mg/dL 70-110 Osmo 292 280-295 Potassium 3.5 mmol/L 3.5-5.3 Sodium 143 mmol/L 134-148 02/03/18 01:20 Anion Gap 13 6-14 BUN [...] 32.5 g/dL 32.0-36.0 MCV 94.4 fL 80.0-97.0 Mckenzie% 10.0 % 0.0-12.0 MPV 10.0 fL 7.4-10.0 Deanna% 53.5 % 37.0-80.0 Plt 175 K/uL 150-400 RBC 3.72 M/uL 3.60-5.00 RDW 14.0 % 11.6-14.8 WBC 3.31 K/uL 5.00-10.00 Deanna 1.77 K/uL 2.00-6.90 Mckenzie 0.3 K/uL 0.0-0.9 Baso 0.0 K/uL 0.0-0.2 Surgical Pathology - 02/11/18 09:35 Surg Path Sent to [facility] Comprehensive Metabolic Panel - 02/12/18 05:21 [...] 5-8.5 Urine-Protein Negative Negative Urine-RBC 0-2/HPF Urine-Specific Ashburn <=1.005 1.000-1.030 Urine-WBC Negative Urobilinogen 0.2 E.U./dL 0.2-1.0 CBC with Auto Diff - 02/22/18 11:00 Baso% 0.20 % 0.00-2.50 Eos 0.1 K/uL 0.0-0.7 Eos% 1.1 % 0.0-7.0 Hct 34.6 % 36.0-46.0 Hgb 11.1 g/dL 13.0-15.0 Lym 1.70 K/uL 0.60-3.40 Lym% 36.3 % 10.0-50.0 MCH 29.9 pg 27.0-31.0 MCHC 32.1 g/dL 32.0-36.0 MCV 93.3 fL 80.0-97.0 Mckenzie% 15.2 % 0.0-12.0 MPV 11.0 fL 7.4-10.0 Deanna% 47.2 % 37.0-80.0 Plt 252 K/uL 150-400 RBC 3.71 M/uL 3.60-5.00 RDW 13.5 % 11.6-14.8 WBC 4.68 K/uL 5.00-10.00 Deanna 2.21 K/uL 2.00-6.90 Mckenzie 0.7 K/uL 0.0-0.9 Baso 0.0 K/uL 0.0-0.2 [...] Automated erythrocyte mean corpuscular hemoglobin concentration measurement (mass/volume) 32 g/dL 32-36 Automated erythrocyte distribution width ratio 15.4 % 10.0- 14.5 Automated blood platelet count (count/volume) 219 10*3/uL [...] Blood monocytes automated count (number/volume) 0.5 10*3 0.0- 1.0 Automated eosinophil count 0.1 10*3/uL 0.0-0.3 Automated blood basophil count (count/volume) 0.0 10*3/uL 0.0-0.1 Blood lactic acid measurement (moles/volume) - 08/29/18 20:10 Blood lactic acid measurement (moles/volume) 0.80 mmol/L 0.50- 2.00 Comprehensive metabolic panel - 08/29/18 20:10 Serum [...] Serum or plasma aspartate aminotransferase measurement (enzymatic activity/volume) 13 U/L 5-34 Serum or plasma alanine aminotransferase measurement (enzymatic activity/volume) 9 U/L 0-55 Serum or plasma protein measurement (mass/volume) 5.2 g/dL 6.4-8.2 Serum or plasma albumin measurement (mass/volume) 3.5 g/dL 3.2-4.5 CALCIUM CORRECTED 9.5 mg/dL 8.5-10.1 Serum or plasma C reactive protein measurement (mass/volume) - 08/29/18 20:10 Serum or plasma C reactive protein measurement (mass/volume) 0.29 mg/dL 0.00-0.50 Erythrocyte sedimentation rate by westergren method - 08/29/18 20:10 Erythrocyte sedimentation rate by westergren method 24 mm 0-30 Bacterial blood culture - 08/29/18 20:10 Bacterial blood culture NG [facility] Bacterial blood culture - 08/29/18 21:00 Bacterial blood culture NG [facility] Streptococcus pyogenes antigen detection - 09/28/18 18:52 Streptococcus pyogenes antigen detection NEGATIVE NEGATIVE Bacterial throat culture - 09/28/18 18:52 Bacterial throat culture NBS [facility] Complete blood count (CBC) with automated white [...] Automated erythrocyte mean corpuscular hemoglobin concentration measurement (mass/volume) 32 g/dL 32-36 Automated erythrocyte distribution width ratio 14.9 % 10.0- 14.5 Automated blood platelet count (count/volume) 280 10*3/uL [...] Blood monocytes automated count (number/volume) 1.1 10*3 0.0- 1.0 Automated eosinophil count 0.0 10*3/uL 0.0-0.3 Automated [...] Serum or plasma aspartate aminotransferase measurement (enzymatic activity/volume) 10 U/L 5-34 Serum or plasma alanine aminotransferase measurement (enzymatic activity/volume) 7 U/L 0-55 Serum or plasma protein measurement (mass/volume) 7.0 g/dL 6.4-8.2 Serum or plasma albumin measurement (mass/volume) 3.8 g/dL 3.2-4.5 CALCIUM CORRECTED 10.0 mg/dL 8.5-10.1 Serum heterophile antibody titer - 09/28/18 18:59 Serum heterophile antibody titer NEGATIVE NEGATIVE VITAMIN B12/FOLATE, SERUM PANEL - 01/15/19 13:48 VITAMIN B12 309 pg/mL 200-1100 FOLATE, SERUM 8.9 ng/mL NR ANEMIA PANEL - 01/15/19 13:49 IRON, TOTAL 53 mcg/dL 45-160 FERRITIN 34 ng/mL 20-288 IRON BINDING CAPACITY 331 mcg/dL (calc) 250-450 % SATURATION 16 % (calc) 11-50 CMP - 01/15/19 13:49 GLUCOSE 110 mg/dL 65-99 UREA NITROGEN (BUN) 14 mg/dL 7-25 CREATININE 0.80 mg/dL 0.60-0.93 eGFR NON-AFR. MACEDONIAN 74 mL/min/1.73m2 > OR=60 eGFR 86 mL/min/1.73m2 > OR=60 BUN/CREATININE RATIO NOT APPLICABLE (calc) 6-22 SODIUM 144 mmol/L 135-146 POTASSIUM 4.1 mmol/L 3.5-5.3 CHLORIDE 109 mmol/L 98-110 CARBON DIOXIDE 25 mmol/L 20-32 CALCIUM 9.7 mg/dL 8.6-10.4 PROTEIN, TOTAL 6.1 g/dL 6.1-8.1 ALBUMIN 3.9 g/dL 3.6-5.1 GLOBULIN 2.2 g/dL (calc) 1.9-3.7 ALBUMIN/GLOBULIN RATIO 1.8 (calc) 1.0-2.5 BILIRUBIN, TOTAL 0.7 mg/dL 0.2-1.2 ALKALINE PHOSPHATASE 109 U/L 33-130 AST 13 U/L 10-35 ALT 9 U/L 6-29 CBC - 01/15/19 13:49 WHITE BLOOD CELL COUNT 5.6 Thousand/uL 3.8-10.8 RED BLOOD CELL COUNT 4.89 Million/uL 3.80-5.10 HEMOGLOBIN 13.2 g/dL 11.7-15.5 HEMATOCRIT 40.5 % 35.0-45.0 MCV 82.8 fL 80.0-100.0 MCH 27.0 pg 27.0-33.0 MCHC 32.6 g/dL 32.0-36.0 RDW 16.1 % 11.0-15.0 PLATELET COUNT 280 Thousand/uL 140-400 MPV 10.5 fL 7.5-12.5 ABSOLUTE NEUTROPHILS 2979 cells/uL 7421-6312 ABSOLUTE LYMPHOCYTES 2022 cells/uL 850-3900 ABSOLUTE MONOCYTES 526 cells/uL 200-950 ABSOLUTE EOSINOPHILS 50 cells/uL 15-500 ABSOLUTE BASOPHILS 22 cells/uL 0-200 NEUTROPHILS 53.2 % NRG LYMPHOCYTES 36.1 % NRG MONOCYTES 9.4 % NRG EOSINOPHILS 0.9 % NRG BASOPHILS 0.4 % NRG Complete blood count (CBC) with automated white blood cell (WBC) differential - 03/05/19 16:15 Blood leukocytes automated count (number/volume) 5.5 10*3/uL 4.3-11.0 Blood erythrocytes automated count (number/volume) 5.02 10*6/uL 4.35-5.85 Venous blood hemoglobin measurement (mass/volume) 13.9 g/dL 11.5-16.0 Blood hematocrit (volume fraction) 43 % 35-52 Automated erythrocyte mean corpuscular volume 85 [foz_us] 80-99 Automated erythrocyte mean corpuscular hemoglobin (mass per erythrocyte) 28 pg 25-34 Automated erythrocyte mean corpuscular hemoglobin concentration measurement (mass/volume) 33 g/dL 32-36 Automated erythrocyte distribution width ratio 16.5 % 10.0- 14.5 Automated blood platelet count (count/volume) 237 10*3/uL 130-400 Automated blood platelet mean volume measurement 10.6 [foz_us] 7.4-10.4 Automated blood neutrophils/100 leukocytes 64 % 42-75 Automated blood lymphocytes/100 leukocytes 26 % 12-44 Blood monocytes/100 leukocytes 9 % 0-12 Automated blood eosinophils/100 leukocytes 0 % 0-10 Automated blood basophils/100 leukocytes 0 % 0-10 Blood neutrophils automated count (number/volume) 3.5 10*3 1.8-7.8 Blood lymphocytes automated count (number/volume) 1.5 10*3 1.0-4.0 Blood monocytes automated count (number/volume) 0.5 10*3 0.0- 1.0 Automated eosinophil count 0.0 10*3/uL 0.0-0.3 Automated blood basophil count (count/volume) 0.0 10*3/uL 0.0-0.1 Comprehensive metabolic panel - 03/05/19 16:15 Serum or plasma sodium measurement (moles/volume) 144 mmol/L 135-145 Serum or plasma potassium measurement (moles/volume) 3.9 mmol/L 3.6-5.0 Serum or plasma chloride measurement (moles/volume) 107 mmol/L 98-107 Carbon dioxide 23 mmol/L 21-32 Serum or plasma anion gap determination (moles/volume) 14 mmol/L 5-14 Serum or plasma urea nitrogen measurement (mass/volume) 13 mg/dL 7-18 Serum or plasma creatinine measurement (mass/volume) 0.94 mg/dL 0.60-1.30 Serum or plasma urea nitrogen/creatinine mass ratio 14 NRG Serum or plasma creatinine measurement with calculation of estimated glomerular filtration rate 59 NRG Serum or plasma glucose measurement (mass/volume) 105 mg/dL 70-105 Serum or plasma calcium measurement (mass/volume) 10.5 mg/dL 8.5-10.1 Serum or plasma total bilirubin measurement (mass/volume) 1.1 mg/dL 0.1-1.0 Serum or plasma alkaline phosphatase measurement (enzymatic activity/volume) 137 U/L 40-136 Serum or plasma aspartate aminotransferase measurement (enzymatic activity/volume) 15 U/L 5-34 Serum or plasma alanine aminotransferase measurement (enzymatic activity/volume) 10 U/L 0-55 Serum or plasma protein measurement (mass/volume) 6.9 g/dL 6.4-8.2 Serum or plasma albumin measurement (mass/volume) 4.3 g/dL 3.2-4.5 CALCIUM CORRECTED 10.3 mg/dL 8.5-10.1 Serum or plasma C reactive protein measurement (mass/volume) - 03/05/19 16:15 Serum or plasma C reactive protein measurement (mass/volume) 0.09 mg/dL 0.00-0.50 Complete urinalysis with reflex to culture - 03/05/19 17:20 Urine color determination YELLOW NRG Urine clarity determination VERY CLOUDY NRG Urine pH measurement by test strip 7 5-9 Specific gravity of urine by test strip 1.010 1.016-1.022 Urine protein assay by test strip, semi-quantitative 1+ NEGATIVE Urine glucose detection by automated test strip NEGATIVE NEGATIVE Erythrocytes detection in urine sediment by light microscopy NEGATIVE NEGATIVE Urine ketones detection by automated test strip 3+ NEGATIVE Urine nitrite detection by test strip NEGATIVE NEGATIVE Urine total bilirubin detection by test strip NEGATIVE NEGATIVE Urine urobilinogen measurement by automated test strip (mass/volume) NORMAL NORMAL Urine leukocyte esterase detection by dipstick 3+ NEGATIVE Automated urine sediment erythrocyte count by microscopy (number/high power field) NONE NRG Automated urine sediment leukocyte count by microscopy (number/high power field) [HPF] NRG Bacteria detection in urine sediment by light microscopy TRACE NRG Squamous epithelial cells detection in urine sediment by light microscopy 5-10 NRG Crystals detection in urine sediment by light microscopy NONE NRG Casts detection in urine sediment by light microscopy NONE NRG Mucus detection in urine sediment by light microscopy NEGATIVE NRG Complete urinalysis with reflex to culture YES NRG Bacterial urine culture - 03/05/19 17:20 Bacterial urine culture SEE REPORT NRG COLONY COUNT . NRG TSH - 03/13/19 14:27 TSH 2.35 mIU/L 0.40-4.50 CMP - 04/17/19 09:28 GLUCOSE 78 mg/dL 65-99 UREA NITROGEN (BUN) 8 mg/dL 7-25 CREATININE 0.93 mg/dL 0.60-0.93 eGFR NON-AFR. MACEDONIAN 62 mL/min/1.73m2 > OR=60 eGFR 72 mL/min/1.73m2 > OR=60 BUN/CREATININE RATIO NOT APPLICABLE (calc) 6-22 SODIUM 144 mmol/L 135-146 POTASSIUM 4.2 mmol/L 3.5-5.3 CHLORIDE 109 mmol/L 98-110 CARBON DIOXIDE 23 mmol/L 20-32 CALCIUM 9.2 mg/dL 8.6-10.4 PROTEIN, TOTAL 5.9 g/dL 6.1-8.1 ALBUMIN 3.9 g/dL 3.6-5.1 GLOBULIN 2.0 g/dL (calc) 1.9-3.7 ALBUMIN/GLOBULIN RATIO 2.0 (calc) 1.0-2.5 BILIRUBIN, TOTAL 0.3 mg/dL 0.2-1.2 ALKALINE PHOSPHATASE 125 U/L 33-130 AST 15 U/L 10-35 ALT 7 U/L 6-29 CBC with Auto Diff - 05/02/19 12:47 Baso% 0.20 % 0.00-2.50 Eos 0.1 K/uL 0.0-0.7 Eos% 0.9 % 0.0-7.0 Hct 40.5 % 36.0-46.0 Hgb 12.7 g/dL 13.0-15.0 Lym 1.75 K/uL 0.60-3.40 Lym% 18.0 % 10.0-50.0 MCH 28.6 pg 27.0-31.0 MCHC 31.4 g/dL 32.0-36.0 MCV 91.2 fL 80.0-97.0 Mckenzie% 9.4 % 0.0-12.0 MPV 11.4 fL 7.4-10.0 Deanna% 71.5 % 37.0-80.0 Plt 250 K/uL 150-400 RBC 4.44 M/uL 3.60-5.00 RDW 15.1 % 11.6-14.8 WBC 9.70 K/uL 5.00-10.00 Deanna 6.93 K/uL 2.00-6.90 Mckenzie 0.9 K/uL 0.0-0.9 Baso 0.0 K/uL 0.0-0.2 Urinalysis - 05/10/19 02:50 Icotest N/A Negative Urine Volume Urine Volume Sufficient (10mL) Urine-Appearance Clear Clear Urine-Bacteria Negative Urine-Bilirubin Negative Negative Urine-Blood Negative Negative Urine-Color Yellow Colorless-Lt. Yellow Urine-Epithelial Cells 0-5/HPF Urine-Glucose Negative Negative Urine-Ketones Negative Negative Urine-Leukocytes Negative Negative Urine-Nitrite Negative Negative Urine-Other Urine Saved if Culture Needed (48hrs from time of collection) Urine-pH 7.0 5-8.5 Urine-Protein Negative Negative Urine-RBC Rare/HPF Urine-Specific Ashburn 1.010 1.000-1.030 Urine-WBC Rare/HPF Urobilinogen 0.2 0.2-1.0 CBC with Auto Diff - 05/10/19 03:10 Baso% 0.20 % 0.00-2.50 Eos 0.1 K/uL 0.0-0.7 Eos% 0.6 % 0.0-7.0 Hct 41.0 % 36.0-46.0 Hgb 12.6 Results Repeated w/ New Sample g/dL 13.0-15.0 Lym 2.79 K/uL 0.60-3.40 Lym% 30.8 % 10.0-50.0 MCH 28.4 pg 27.0-31.0 MCHC 30.7 g/dL 32.0-36.0 MCV 92.3 fL 80.0-97.0 Mckenzie% 9.2 % 0.0-12.0 MPV 9.5 fL 7.4-10.0 Deanna% 59.2 % 37.0-80.0 Plt 251 K/uL 150-400 RBC 4.44 M/uL 3.60-5.00 RDW 15.7 % 11.6-14.8 WBC 9.06 K/uL 5.00-10.00 Deanna 5.37 K/uL 2.00-6.90 Mckenzie 0.8 K/uL 0.0-0.9 Baso 0.0 K/uL 0.0-0.2 Encounters ACCT No. Visit Date/Time Discharge Status Pt. Type Provider Facility Loc./Unit Complaint [id number] 05/06/2019 09:20:00 05/06/2019 23:59:59 CLS Outpatient MAC MADDEN [id number] 04/17/2019 09:00:00 Document Registration [id number] 03/13/2019 14:00:00 Document Registration [id number] 01/15/2019 13:15:00 Document Registration [id number] 09/30/2014 16:41:00 09/30/2014 23:59:59 CLS Outpatient MICHELLE COLEY [id number] 07/15/2014 13:28:00 07/15/2014 23:59:59 CLS Outpatient SAMARA ESPITIA APRN [id number] 05/06/2014 09:25:00 05/06/2014 23:59:59 CLS Outpatient SAMARA ESPITIA APRN [id number] 04/06/2014 09:02:00 04/06/2014 23:59:59 CLS Outpatient SAMARA ESPITIA APRN [id number] 02/24/2014 12:55:00 02/24/2014 23:59:59 CLS Outpatient ESPITIA POOL TECHNICIANSAMARA Aldrich [id number] 02/04/2014 13:24:00 02/04/2014 23:59:59 CLS Outpatient ESPITIA POOL TECHNICIANSAMARA Aldrich [id number] 11/19/2013 10:21:00 11/19/2013 23:59:59 CLS Outpatient ESPITIASAMARA JON APRN [id number] 09/15/2013 09:11:00 09/15/2013 23:59:59 CLS Outpatient ESPITIA POOL TECHNICIANSAMARA Aldrich [id number] 06/03/2013 13:58:00 06/03/2013 23:59:59 CLS Outpatient ANDER GRANT DO [id number] 11/18/2012 13:44:00 11/18/2012 23:59:59 CLS Outpatient ESPITIA POOL TECHNICIANSAMARA Aldrich [id number] 10/17/2012 14:16:00 10/17/2012 23:59:59 CLS Outpatient ESPITIA POOL TECHNICIANSAMARA Aldrich [id number] 11/10/2011 14:31:00 11/10/2011 23:59:59 CLS Outpatient [id number] 04/10/2013 11:20:00 Document Registration [id number] 01/24/2013 13:15:00 Document Registration [id number] 05/05/2019 22:28:00 05/05/2019 23:16:00 DIS Outpatient NEFTALY [facility] ER [id number] 05/02/2019 12:03:00 05/02/2019 14[facility]22:[id number]2018 08:57:00 08/16/2018 10:23:00 DIS Outpatient Paige [facility] ER [id number] 08/04/2018 00:35:00 08/04/2018 01:58:00 DIS Outpatient Jacqui Lewis [facility] ER [id number] 08/01/2018 14:00:00 08/01/2018 15:05:00 DIS Outpatient Madison [facility] ER [id number] 07/17/2018 09:16:00 07/17/2018 23:59:00 DIS Outpatient NINO DOMINGUEZ [id number] 01/18/2018 00:00:00 04/10/2018 07:48:00 DIS Outpatient Mac Madden [id number] 02/22/2018 12:04:00 02/22/2018 23:59:00 DIS Outpatient Mac Madden [id number] 02/12/2018 05:09:00 02/12/2018 08:24:00 DIS Outpatient GISELA HIGGINBOTHAM [facility] ER [id number] 02/11/2018 06:58:00 02/11/2018 09:30:00 DIS Outpatient Jac Vanessa [id number] 02/03/2018 00:28:00 02/04/2018 14:40:00 DIS Outpatient Herbie Bruce [facility] MED-SURG [id number] 01/14/2018 08:15:00 01/17/2018 14:00:00 [id number] 11/17/2017 02:01:00 11/17/2017 06:53:00 DIS Outpatient Flynntammy [facility] ER [id number] 07/23/2017 11:33:00 07/25/2017 14:15:00 DIS Outpatient [facility] MED-SURG [id number] 01/12/2017 14:08:00 01/13/2017 13:20:00 DIS Outpatient Matt Ragland [id number] 05/10/2019 01:57:26 Document Registration [id number] 07/19/2018 10:31:21 Document Registration [id number] 01/12/2017 14:50:40 Document Registration [id number] 03/05/2019 15:35:00 03/05/2019 20:00:00 DIS Emergency LORENA LAWRENCE DO [facility] ER DEHYDRATED [id number] 09/28/2018 16:14:00 09/28/2018 20:06:00 DIS Emergency DEONNA MOBLEY APRN [facility] ER SORE THROAT/FEVER [id number] 08/29/2018 19:24:00 08/29/2018 22:02:00 DIS Emergency KIRSTIN GARZA MD [facility] ER R LOWER LEG POSS CELLULITIS [id number] 05/09/2017 12:18:00 05/09/2017 23:59:59 CLS Outpatient AMPARO ESCALANTE, RENU Bañuelos [facility] RAD 4+ [id number] 03/19/2017 09:00:00 03/19/2017 23:59:59 CLS Outpatient YURI SEYMOUR MD [facility] RAD DIARRHEA [id number] 06/10/2015 16:09:00 06/26/2015 11:30:00 DIS Inpatient SANGEETA ESCALANTE, MUKUL Cordova [facility] IRF LRFT TIB FIB FRX [id number] 01/10/2019 09:58:00 Document Registration
--- NOTE | 2019-05-11 13:55 | NUR ---
dr heath with accessing pt port .
--- NOTE | 2019-05-11 13:55 | NUR ---
ua to lab by me and i guess i am taking this pt now.
[2019-05-11] MEDS ORDERED: diphenhydrAMINE 50 MG/ML INJ (BENADRYL) IVP ONE (14:15)
[2019-05-11] MEDS ORDERED: DEXAMETHASONE 4 MG/ML SDV (DECADRON) IV ONE (14:15)
[2019-05-11] MEDS ORDERED: PROCHLORPERAZINE 10 MG/2ML INJ (COMPAZINE) IV ONE (14:15)
--- NOTE | 2019-05-11 14:24 | NUR ---
port accessed by me w/o problems i samantha labs and sent them to lab
--- NOTE | 2019-05-11 14:28 | NUR ---
pt alert [facility] 14-15 neg 1 for ? confusion. pt knows full name but appears to be hallucinating and saying of the wall sentences like" im seing orange stripes" " " my sisters" " look like its going to rain". all the while pt has her eyes closed. no acute sighns of dyspnea noted.bp machine is 153/93 ausc hr 92 reg ausc resp 20 normal recheck temp oral is 98.6 p ox r/a is 93. tele shows sr 86. pt does c/o h/a rating 5, pt here by self.
[2019-05-11] MEDS ORDERED: PRD10T PO (14:41)
[2019-05-11 14:43] LABS: BASOPHILS % (AUTO) 0 % (0-10); EOSINOPHILS % (AUTO) 0 % (0-10); HEMATOCRIT 35 % (35-52); LYMPHOCYTES % (AUTO) 13 % (12-44); MEAN CORPUSCULAR HEMOGLOBIN 28 PG (25-34); MEAN CORPUSCULAR HGB CONC 32 G/DL (32-36); MEAN CORPUSCULAR VOLUME 89 FL (80-99); MEAN PLATELET VOLUME 9.9 FL (7.4-10.4); MONOCYTES # (AUTO) 0.7 X 10^3 (0.0-1.0); MONOCYTES % (AUTO) 8 % (0-12); NEUTROPHILS # (AUTO) 6.4 X 10^3 (1.8-7.8); NEUTROPHILS % (AUTO) 79 % (42-75); PLATELET COUNT 298 10^3/uL (130-400); RED CELL DISTRIBUTION WIDTH 16.1 % (10.0-14.5); WHITE BLOOD COUNT 8.1 10^3/uL (4.3-11.0)
--- NOTE | 2019-05-11 14:44 | ED Headache ---
General Chief Complaint: Head/Cervical Problems Stated Complaint: MIGRAINE Nursing Triage Note: Pt arrived via EMS from home. Pt CO migrain. Was seen in this ED yesterday. Nursing Sepsis Screen: No Definite Risk Source: patient (PT IS LIMITED HISTORIAN), old records Allergies and Home Medications Allergies Coded Allergies: Sulfa (Sulfonamide Antibiotics) (Verified Allergy, Unknown, 06/10/15) Home Medications Amitriptyline HCl 25 Mg Tablet, 25 MG PO HS, (Reported) Aripiprazole 15 Mg Tablet, 15 MG PO DAILY, (Reported) Cephalexin 500 Mg Tablet, 500 MG PO QID Prescribed by: KIRSTIN GARZA on 08/29/182123 Cephalexin 500 Mg Capsule, 500 MG PO TID Prescribed by: DEONNA MOBLEY on 09/28/181949 Cholecalciferol (Vitamin D3) 1,000 Unit Tablet, 1,000 UNIT PO DAILY, (Reported) Cyclobenzaprine HCl 10 Mg Tablet, 10 MG PO BID, (Reported) Gabapentin 300 Mg Capsule, 300 MG PO BID, (Reported) Hydrocodone Bit/Acetaminophen 1 Each Tablet, 1 EACH PO Q8H PRN for PAIN, (R eported) Levothyroxine Sodium 75 Mcg Tablet, 75 MCG PO DAILY, (Reported) Memantine HCl 5 Mg Tablet, 5 MG PO BID 5 MG PO Q AM and HS. Prescribed by: BLU QUINONES on 06/10/15 1523 Methotrexate Tablet 2.5 Mg Tablet, 15 MG PO Sunday, (Reported) Metoprolol Tartrate 50 Mg Tablet, 50 MG PO DAILY, (Reported) Nitrofurantoin Monohyd/M-Cryst 100 Mg Capsule, 100 MG PO BID Prescribed by: REGLA LAWRENCE on 03/05/191913 Pantoprazole Sodium 40 Mg Tablet.dr, 40 MG PO DAILY, (Reported) Pantoprazole Sodium 40 Mg Tablet.dr, 40 MG PO DAILY Prescribed by: REGLA LAWRENCE on 03/05/191913 Pramipexole 0.125 Mg Tablet, 0.125 MG PO HS, (Reported) Prednisone 10 Mg Tab, 30 MG PO DAILY Prescribed by: REGLA LAWRENCE on 05/11/19 1441 Sucralfate 1 Gm Tablet, 1 GM PO QIDACHS Prescribed by: REGLA LAWRENCE on 03/05/191913 Sumatriptan Succinate 100 Mg Tablet, 0.5 TAB PO PRN PRN for HEADACHE May repeat in 2 hours; Max 200 MG/24 hours. Prescribed by: BLU QUINONES on 06/10/15 155 Tramadol HCl 50 Mg Tablet, 50 MG PO BID, (Reported) Vitamin E 400 Unit Capsule, 400 UNIT PO DAILY, (Reported) Vortioxetine Hydrobromide 5 Mg Tablet, 5 MG PO DAILY, (Reported) [Biotin] , 10,000 MCG PO Evening Prescribed by: BLU QUINONES on 06/12/15 1530 [Folic Acid 1MG] , 2 MG PO DAILY, (Reported) [Iron 65MG] , 65 MG PO Evening Prescribed by: BLU QUINONES on 06/12/15 1530 [Nitrostat] , 0.4 MG SL UD Q5 min X3 PRN. Prescribed by: BLU QUINONES on 06/10/15 155 [Potassium] , 20 MEQ PO BID, (Reported) Past Ocmgsbh-Fparyd-Gmxebq Hx Patient Social History Alcohol Use: Denies Use Recreational Drug Use: No Smoking Status: Former Smoker Former Smoker, Quit: Sep 27, 1997 2nd Hand Smoke Exposure: No Recent Foreign Travel: No Contact w/Someone Who Travel: No Recent Infectious Disease Expo: No Recent Hopitalizations: No Immunizations Up To Date Tetanus Booster (TDap): Unknown PED Vaccines UTD: Yes Date of Pneumonia Vaccine: Nov 05, 2012 Seasonal Allergies Seasonal Allergies: Yes Past Medical History Surgeries: Yes Abdominal, Bowel Surgery, Hysterectomy Respiratory: Yes Pneumonia, COPD Cardiac: Yes High Cholesterol, Hypertension 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: No : No Genitourinary: No Gastrointestinal: Yes (Ulcerative colitis) Hiatal Hernia, Gall Bladder Disease Musculoskeletal: Yes (OA) Osteoporosis, Arthritis, Fibromyalgia, Rheumatoid Arthritis Endocrine: Yes Hypothyroidsim HEENT: No Glaucoma Cancer: No Psychosocial: Yes Anxiety, Depression Integumentary: No Blood Disorders: No Physical Exam Vital Signs Vital Signs - First Documented 05/11/19 13:48 Temp 98.9 Pulse 78 Resp 17 B/P (MAP) 184/85 (118) Pulse Ox 96 O2 Delivery Room Air Capillary Refill : Less Than 3 Seconds Height, Weight, BMI Height: 5'2.00" Weight: 130lbs. 11.2oz. 58.799365gk; 26.57 BMI Method:Stated Progress/Results/Core Measures Results/Orders Lab Results Laboratory Tests Test 05/11/19 13:57 05/11/19 14:24 05/11/19 14:48 05/11/19 15:11 Range/Units Urine Color YELLOW Urine Clarity CLEAR Urine pH 6.5 5-9 Urine Specific [place] 1.010 L 1.016-1.022 Urine Protein NEGATIVE NEGATIVE Urine Glucose (UA) NEGATIVE NEGATIVE Urine Ketones NEGATIVE NEGATIVE Urine Nitrite NEGATIVE NEGATIVE Urine Bilirubin NEGATIVE NEGATIVE Urine Urobilinogen NORMAL NORMAL MG/DL Urine Leukocyte Esterase NEGATIVE NEGATIVE Urine RBC (Auto) NEGATIVE NEGATIVE Urine RBC NONE /HPF Urine WBC NONE /HPF Urine Squamous Epithelial Cells 0-2 /HPF Urine Crystals NONE /LPF Urine Bacteria NEGATIVE /HPF Urine Casts NONE /LPF Urine Mucus NEGATIVE /LPF Urine Culture Indicated NO White Blood Count 8.1 4.3-11.0 10^3/uL Red Blood Count 3.89 L 4.35-5.85 10^6/uL Hemoglobin 11.0 L 11.5-16.0 G/DL Hematocrit 35 35-52 % Mean Corpuscular Volume 89 80-99 FL Mean Corpuscular Hemoglobin 28 25-34 PG Mean Corpuscular Hemoglobin Concent 32 32-36 G/DL Red Cell Distribution Width 16.1 H 10.0-14.5 % Platelet Count 298 130-400 10^3/uL Mean Platelet Volume 9.9 7.4-10.4 FL Neutrophils (%) (Auto) 79 H 42-75 % Lymphocytes (%) (Auto) 13 12-44 % Monocytes (%) (Auto) 8 0-12 % Eosinophils (%) (Auto) 0 0-10 % Basophils (%) (Auto) 0 0-10 % Neutrophils # (Auto) 6.4 1.8-7.8 X 10^3 Lymphocytes # (Auto) 1.0 1.0-4.0 X 10^3 Monocytes # (Auto) 0.7 0.0-1.0 X 10^3 Eosinophils # (Auto) 0.0 0.0-0.3 10^3/uL Basophils # (Auto) 0.0 0.0-0.1 10^3/uL Prothrombin Time 14.0 12.2-14.7 SEC INR Comment 1.0 0.8-1.4 Activated Partial Thromboplast Time 26 24-35 SEC Sodium Level 142 135-145 MMOL/L Potassium Level 4.1 3.6-5.0 MMOL/L Chloride Level 107 98-107 MMOL/L Carbon Dioxide Level 24 21-32 MMOL/L Anion Gap 11 5-14 MMOL/L Blood Urea Nitrogen 15 7-18 MG/DL Creatinine 0.94 0.60-1.30 MG/DL Estimat Glomerular Filtration Rate 59 BUN/Creatinine Ratio 16 Glucose Level 114 H 70-105 MG/DL Calcium Level 9.3 8.5-10.1 MG/DL Corrected Calcium 9.5 8.5-10.1 MG/DL Magnesium Level 2.2 1.8-2.4 MG/DL Total Bilirubin 0.5 0.1-1.0 MG/DL Aspartate Amino Transf (AST/SGOT) 13 5-34 U/L Alanine Aminotransferase (ALT/SGPT) 13 0-55 U/L Alkaline Phosphatase 90 40-136 U/L Total Protein 5.9 L 6.4-8.2 GM/DL Albumin 3.7 3.2-4.5 GM/DL Glucometer 110 70-110 MG/DL My Orders Orders - REGLA LAWRENCE DO Ed Iv/Invasive Line Start (05/11/19 14:12) Cbc With Automated Diff (05/11/19 14:12) Comprehensive Metabolic Panel (05/11/19 14:12) Magnesium (05/11/19 14:12) Protime With Inr (05/11/19 14:12) Partial Thromboplastin Time (05/11/19 14:12) Dexamethasone Injection (Decadron Inject (05/11/19 14:15) Prochlorperazine Injection (Compazine In (05/11/19 14:15) Diphenhydramine Injection (Benadryl Inje (05/11/19 14:15) Accucheck Stat ONCE (05/11/19 14:54) Straight Cath For Spec.-Adult (05/11/19 15:12) Lactic Acid Analyzer (05/11/19 15:12) Ua Culture If Indicated (05/11/19 15:12) Straight Cath For Spec.-Adult (05/11/19 15:33) Medications Given in ED Current Medications Medications Dose Ordered Sig/Mana Route Start Time Stop Time Status Last Admin Dose Admin Dexamethasone Sodium Phosphate 10 mg ONCE ONCE IV 05/11/19 14:15 05/11/19 14:16 DC 05/11/19 14:40 10 MG Diphenhydramine HCl 25 mg ONCE ONCE IVP 05/11/19 14:15 05/11/19 14:16 DC 05/11/19 14:34 25 MG Prochlorperazine Edisylate 10 mg ONCE ONCE IV 05/11/19 14:15 05/11/19 14:16 DC 05/11/19 14:37 10 MG Vital Signs/I&O 05/11/19 13:48 Temp 98.9 Pulse 78 Resp 17 B/P (MAP) 184/85 (118) Pulse Ox 96 O2 Delivery Room Air Blood Pressure Mean: 118 Departure Impression Primary Impression: Headache Additional Impressions: Ptosis of eyelid, left Family history of myasthenia gravis Vision changes Disposition: 01 HOME, SELF-CARE Condition: Improved Departure-Patient Inst. Referrals: MAC HANDY MD (PCP/Family) Primary Care Physician Patient Instructions: Headache, Adult (DC), Migraine Headache (DC) Add. Discharge Instructions: TAKE YOUR MEDICATION PRESCRIBED FOLLOW UP WITH DR HANDY IN 1-2 DAYS FOR FURTHER CARE ALSO FOLLOW UP WITH YOUR EYE DR IN 1-2 DAYS FOR FURTHER CARE All discharge instructions reviewed with patient and/or family. Voiced understanding. Scripts Prednisone (Prednisone) 10 Mg Tab 30 MG PO DAILY, #9 TAB Prov: REGLA LAWRENCE DO 05/11/19 REGLA LAWRENCE DO May 11, 2019 14:44
--- NOTE | 2019-05-11 14:48 | NUR ---
bs by gluc by me is 110. also informs me pt well known for h/a pyschosis admit and the hallucination are normal for pt.
[2019-05-11 15:03] LABS: ALBUMIN 3.7 GM/DL (3.2-4.5); BILIRUBIN,TOTAL 0.5 MG/DL (0.1-1.0); CALCIUM 9.3 MG/DL (8.5-10.1); CREATININE SERUM 0.94 MG/DL (0.60-1.30); MAGNESIUM 2.2 MG/DL (1.8-2.4); POTASSIUM 4.1 MMOL/L (3.6-5.0); TOTAL PROTEIN 5.9 GM/DL (6.4-8.2)
--- NOTE | 2019-05-11 15:20 | NUR ---
more labs from port by me and to lab byme
[2019-05-11 15:21] LABS: BILIRUBIN,URINE NEGATIVE (NEGATIVE); CLARITY,URINE CLEAR; COLOR,URINE YELLOW; GLUCOSE, URINE (UA) NEGATIVE (NEGATIVE); KETONES,URINE NEGATIVE (NEGATIVE); LEUKOCYTE ESTERASE ,URINE NEGATIVE (NEGATIVE); NITRITE,URINE NEGATIVE (NEGATIVE); PH,URINE 6.5 (5-9); PROTEIN,URINE NEGATIVE (NEGATIVE); UROBILINOGEN,URINE NORMAL (NORMAL)
[2019-05-11 15:27] LABS: BACTERIA,URINE NEGATIVE /HPF; SQUAMOUS EPITHELIAL CELL,UR 0-2 /HPF
--- NOTE | 2019-05-11 15:27 | NUR ---
sree leon by me w/o problems with help of josé luis ryder and to lab by
[2019-05-11 16:27] VITALS: BP 121/73
--- NOTE | 2019-05-11 16:27 | NUR ---
for ride home. i helped pt use her cell to call sister for ride home . she will be here to pick pt up in 1 hr. d/c instructions to pt. told to read all papers. scripts faxed. pt left in w/c by self. i took pt to w/r to have pt wait. pt knows f/u. i went over the handtyped by information on the chart. port deaccessed by me flushed with ns. pt used commode for ua prior to d/c. i gave pt walker purse and another bag back to pt. pt relates h/a as " its gone". no acute sighns of dyspnea noted at d/c. tele showed sr 98. pt alert gcs 14 -15 neg 1 for ? confusion at d/c.
== END 2019-05-11 16:27 | disposition home or self-care (01) ==
LOC: EDUNIT# 13:40 → ER 13:41
DX: H53.9 Unspecified visual disturbance (principal); H02.402 Unspecified ptosis of left eyelid; R51 Headache; J44.9 Chronic obstructive pulmonary disease, unspecified; I10 Essential (primary) hypertension; E78.00 Pure hypercholesterolemia, unspecified; M06.9 Rheumatoid arthritis, unspecified; M79.7 Fibromyalgia; M81.0 Age-related osteoporosis without current pathological fracture; E03.9 Hypothyroidism, unspecified; F41.9 Anxiety disorder, unspecified; F32.9 Major depressive disorder, single episode, unspecified; Z87.01 Personal history of pneumonia (recurrent); Z83.49 Family history of other endocrine, nutritional and metabolic diseases; Z86.69 Personal history of other diseases of the nervous system and sense organs; Z88.2 Allergy status to sulfonamides; Z87.891 Personal history of nicotine dependence; Z90.710 Acquired absence of both cervix and uterus
CPT/HCPCS: 36415; 36556; 51701; 80053; 81000; 82962; 83605; 83735; 85025; 85610; 85730; 96374; 96375

== ENCOUNTER 2019-05-17 03:43 | Emergency (ER) | payer MEDICARE, MEDICAID ==
[~2019-05-17] VITALS: Ht 157.5 cm; Wt 57.0 kg
[~2019-05-17 03:43] MED LIST changes: +PRD10T PO
[2019-05-17] MEDS ORDERED: ONDANSETRON 4 MG (ZOFRAN) ORAL DISSOLVE TAB ONE (03:48)
--- OUTSIDE RECORDS SUMMARY | 2019-05-17 03:49 | XMS REPORT | Clinical Summary ---
Author Author [facility] Organization [facility] Address Unknown Phone Unavailable Care Team Providers Care Facility Maintenance Supervisor Name Role Phone Reyes Gao MD Unavailable Reyes Gao MD PCP Source Comments Some departments are not documenting in the electronic medical record. If you d o not see the information that you expected, contact Release of Information in [facility] [employer] Information Management department at [phone] for further assistan ce in locating additional records.[facility] Allergies Comments Active Allergy Reactions Severity [...] loss, bilateral Active calcitonin salmon Apply 1 [place] 0 (MIACALCIN) 200 to one unit/actuation nasal [...] Comments Vital Sign 190/102 10/31/2016 2:04 PM [employer] Blood Pressure 71 10/31/2016 2:04 PM [employer] Pulse - - Temperature - - Respiratory Rate - - Oxygen Saturation - - Inhaled Oxygen Concentration 75.3 kg (166 lb) 10/31/2016 2:04 PM [employer] Weight 162.6 cm (5' 4") 10/31/2016 2:04 PM [employer] O[employer] Height 28.49 10/31/2016 2:04 PM [employer] Body Mass Index Plan of Treatment Health [...] 2010- STATE Present HEALTH Advance Directives Patient Contract Manager Explanation Type Date Recorded Advance 01/25/2016 7:16 AM Directive/DPOA
--- OUTSIDE RECORDS SUMMARY | 2019-05-17 03:49 | XMS REPORT | Clinical Summary ---
Author Author [facility] Address Unknown Phone Unavailable Care Team Providers Care Land Reclamation Specialist Name Role Phone PCP Unavailable Allergies Not [...]
--- OUTSIDE RECORDS SUMMARY | 2019-05-17 03:55 | XMS REPORT | Continuity of Care Document ---
Author Organization Unknown Address Unknown Allergies Active Description Code Type Severity Reaction Onset Reported/Identified Relationship to Patient Clinical Status Yes SULFAMETHOXAZOLE-TRIMETHOPRIM SULFAMETHOXAZOLE-TRI SEVERE Yes SULFAMETHOXAZOLE-TRIMETHOPRIM SEVERE DERMATOLOGICAL - NILS Yes SULFAMETHOXAZOLE-TRIMETHOPRIM SEVERE SEVERE Yes sulfa drug Drug Allergy 09/19/2011 Yes Sulfa (Sulfonamide Antibiotics) [id number] Drug Allergy Unknown N/A 06/10/2015 Medications Medication [...] SALINE W/KCL 40MEQ IV (SALINE IV BAG W/[id number]) MLS 01/13/2018 01/20/2018 CONTINUOUSEVERY 0 Hour LACTOBACILLUS BULGARIS TAB (LACTINEX BULGARIS) tab 01/13/2018 01/23/2018 QID&0800,1200,1700,2200 METOPROLOL TAB 25 MG (LOPRESSOR) MG 01/13/2018 01/13/2018 ONCE&1215 NORMAL SALINE W/KCL 40MEQ IV (SALINE IV BAG W/[id number]) MLS 01/13/2018 01/20/2018 CONTINUOUSEVERY 0 Hour NORMAL SALINE W/KCL 40MEQ IV (SALINE IV BAG W/[id number]) MLS 01/14/2018 01/21/2018 CONTINUOUSEVERY 0 Hour MESALAMINE [...] 295.70 P SCHIZO AFFECTIVE 07/28/2010 ESPITIA ROOSEVELT [facility] 295.70 P SCHIZO AFFECTIVE 07/28/2010 NUPUR ALBERT [facility] 295.70 P SCHIZO AFFECTIVE 07/28/2010 295.70 P SCHIZO AFFECTIVE 07/28/2010 295.70 P SCHIZO AFFECTIVE 07/28/2010 ANDER GRANT DO 295.70 P SCHIZO AFFECTIVE 07/28/2010 ESPITIA ROOSEVELT [facility] 295.70 P SCHIZO AFFECTIVE 07/28/2010 ESPITIA ROOSEVELT [facility] 295.70 P SCHIZO AFFECTIVE 07/28/2010 ESPITIA ROOSEVELT [facility] 295.70 P SCHIZO AFFECTIVE 07/28/2010 ESPITIA ROOSEVELT [facility] 295.70 P SCHIZO AFFECTIVE 07/28/2010 ESPITIA ROOSEVELT [facility] 295.70 P SCHIZO AFFECTIVE 07/28/2010 ESPITIA ROOSEVELT [facility] 295.70 P SCHIZO AFFECTIVE 07/28/2010 SAMARA ESPITIA [...] COUNSELING - SMOKING CESSATION 11/06/2011 NUPUR LEIVAValdemar SAMAAR BROWN 465.9 UPPER RESPIRATORY INFECTION 11/06/2011 NUPUR LEIVAValdemar SAMARA BROWN V65.42 COUNSELING - SMOKING CESSATION 11/06/2011 NUPUR LEIVAValdemar SAMARA BROWN 465.9 UPPER RESPIRATORY INFECTION 11/06/2011 ESPITIA TECHNICAL MANAGER, SAMARA KEVIN V65.42 COUNSELING - SMOKING CESSATION 11/06/2011 MICHELLE COLEY M 465.9 UPPER RESPIRATORY INFECTION 11/06/2011 MICHELLE COLEY V65.42 COUNSELING - SMOKING CESSATION 11/10/2011 466.0 BRONCHITIS, ACUTE 11/10/2011 ESPITIA TECHNICAL MANAGER, SAMARA KEVIN 466.0 BRONCHITIS, ACUTE 11/10/2011 ESPITIA TECHNICAL MANAGER, SAMARA KEVIN 466.0 BRONCHITIS, ACUTE 11/10/2011 466.0 BRONCHITIS, ACUTE 11/10/2011 466.0 BRONCHITIS, ACUTE 11/10/2011 ANDER GRANT DO K 466.0 BRONCHITIS, ACUTE 11/10/2011 ESPITIA TECHNICAL MANAGER, SAMARA KEVIN 466.0 BRONCHITIS, ACUTE 11/10/2011 ESPITIA TECHNICAL MANAGER, SAMARA KEVIN 466.0 BRONCHITIS, ACUTE 11/10/2011 ESPITIA TECHNICAL MANAGER, SAMARA KEVIN 466.0 BRONCHITIS, ACUTE 11/10/2011 ESPITIA TECHNICAL MANAGER, SAMARA KEVIN 466.0 BRONCHITIS, ACUTE 11/10/2011 ESPITIA TECHNICAL MANAGER, SAMARA KEVIN 466.0 BRONCHITIS, ACUTE 11/10/2011 ESPITIA TECHNICAL MANAGER, SAMARA KEVIN 466.0 BRONCHITIS, ACUTE 11/10/2011 ESPITIA TECHNICAL MANAGER, SAMARA KEVIN 466.0 BRONCHITIS, ACUTE 11/10/2011 MICHELLE COLEY M 466.0 BRONCHITIS, ACUTE 06/03/2013 ANDER GRANT DO K 894.0 WOUND OPEN LOWER LIMB 06/03/2013 ESPITIA TECHNICAL MANAGER, SAMARA KEVIN 894.0 WOUND OPEN LOWER LIMB 06/03/2013 ESPITIA TECHNICAL MANAGER, SAMARA KEVIN 894.0 WOUND OPEN LOWER LIMB 06/03/2013 ESPITIA TECHNICAL MANAGER, SAMARA KEVIN 894.0 WOUND OPEN LOWER LIMB 06/03/2013 ESPITIA TECHNICAL MANAGER, SAMARA KEVIN 894.0 WOUND OPEN LOWER LIMB 06/03/2013 ESPITIA TECHNICAL MANAGER, SAMARA KEVIN 894.0 WOUND OPEN LOWER LIMB 06/03/2013 ESPITIA TECHNICAL MANAGER, SAMARA KEVIN 894.0 WOUND OPEN LOWER LIMB 06/03/2013 ESPITIA TECHNICAL MANAGER, SAMARA KEVIN 894.0 WOUND OPEN LOWER LIMB [...] Ot V49.72 OTHER TOE(S) AMPUTATION STATUS 06/26/2015 SNAGEETA ESCALANTE, MUKUL E Ot V54.26 [facility] [...] Lorena W E03.9 HYPOTHYROIDISM, UNSPECIFIED 01/17/2018 [facility], Lorena W E78.5 01/17/2018 [facility], Lorena A E86.0 DEHYDRATION 01/17/2018 [facility], Lorena W E87.6 HYPOKALEMIA 01/17/2018 [facility], Lorena W F32.9 01/17/2018 [facility], Lorena W G62.9 POLYNEUROPATHY, UNSPECIFIED 01/17/2018 [facility], Lorena W I10 01/17/2018 [facility], Lorena W K52.9 NONINFECTIVE GASTROENTERITIS AND COLITIS, UNSPECIFIED 01/17/2018 [facility], Lorena W M06.9 01/17/2018 [facility], Lorena W M25.551 PAIN IN RIGHT HIP 01/17/2018 [facility], Lorena W R19.7 DIARRHEA, UNSPECIFIED 01/17/2018 [facility], Lorena W R82.99 OTHER ABNORMAL FINDINGS [...] MD Ot K52.839 MICROSCOPIC COLITIS, UNSPECIFIED 09/28/2018 RENU CHRISTENSEN MD Ot M25.551 PAIN IN [...] BOTH CERVIX AND UTER 10/01/2018 DEONNA MOBLEY TECHNICAL MANAGER Ot Z90.89 ACQUIRED ABSENCE OF OTHER ORGANS 10/01/2018 DEONNA MOBLEY TECHNICAL MANAGER Ot 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 10/01/2018 DEONNA MOBLEY TECHNICAL MANAGER Ot Z98.890 OTHER SPECIFIED POSTPROCEDURAL STATES 01/23/2019 [...] ABSENCE OF BOTH CERVIX AND UTER 03/05/2019 [facility] LORENA Miriam Ot Z90.89 ACQUIRED ABSENCE OF OTHER ORGANS 03/05/2019 [facility] LORENA Pineda Ot Z98.890 OTHER SPECIFIED POSTPROCEDURAL STATES 03/07/2019 MELINDA LORENA Miriam Ot E03.9 HYPOTHYROIDISM, UNSPECIFIED 03/07/2019 [facility] LORENA Miiram Ot I10 ESSENTIAL (PRIMARY) HYPERTENSION 03/07/2019 [facility] LORENA K Ot K21.9 GASTRO-ESOPHAGEAL REFLUX DISEASE WITHOUT 03/07/2019 MELINDA TRISTINA Miriam Ot K29.70 GASTRITIS, UNSPECIFIED, WITHOUT BLEEDING 03/07/2019 [facility] K44.9 DIAPHRAGMATIC HERNIA WITHOUT OBSTRUCTION 03/07/2019 [facility] LORENA K Ot M06.9 RHEUMATOID ARTHRITIS, UNSPECIFIED 03/07/2019 [facility] LORENA K Ot M81.0 AGE-RELATED OSTEOPOROSIS W/O CURRENT PAT 03/07/2019 [facility] LORENA K Ot N39.0 URINARY TRACT INFECTION, SITE NOT SPECIF 03/07/2019 [facility] Ot R19.7 DIARRHEA, UNSPECIFIED 03/07/2019 [facility] [place] Miriam Ot Z87.01 PERSONAL HISTORY OF PNEUMONIA (RECURRENT 03/07/2019 [facility] Z87.19 PERSONAL HISTORY OF OTHER DISEASES OF TH 03/07/2019 [facility] Ot Z87.891 PERSONAL HISTORY OF NICOTINE DEPENDENCE 03/07/2019 [facility] Ot Z88.2 ALLERGY STATUS TO SULFONAMIDES STATUS 03/07/2019 [facility] Ot Z90.49 ACQUIRED ABSENCE OF OTHER SPECIFIED PART 03/07/2019 [facility] [place] Miriam Ot Z90.710 ACQUIRED ABSENCE OF BOTH CERVIX AND UTER 03/07/2019 [facility] Ot Z90.89 ACQUIRED ABSENCE OF OTHER ORGANS 03/07/2019 [facility] LORENA K Ot Z98.890 OTHER SPECIFIED POSTPROCEDURAL STATES 05/02/2019 Gianni Gibson W 714.0 RHEUMATOID ARTHRITIS 05/02/2019 Gianni Gibson W M06.041 RHEUMATOID ARTHRITIS WITHOUT RHEUMATOID FACTOR, RIGHT HAND 05/05/2019 GISELA HIGGINBOTHAM W 682.6 CELLULITIS AND ABSCESS OF LEG, EXCEPT FOOT 05/05/2019 GISELA HIGGINBOTHAM W L03.116 CELLULITIS OF LEFT LOWER LIMB 05/10/2019 VIOLETTA ALBERT MARIA EUGENIAMaribel W 346.90 MIGRAINE, UNSPECIFIED, WITHOUT MENTION OF INTRACTABLE MIGRAINE, WITHOUT MENTION OF STATUS MIGRAINOSUS 05/10/2019 VIOLETTA LEIVAValdemar MARIA EUGENIAMaribel W G43.909 MIGRAINE, UNSP, NOT INTRACTABLE, WITHOUT STATUS MIGRAINOSUS 05/10/2019 LION ESCALANTE, YURI Ot K52.839 MICROSCOPIC COLITIS, UNSPECIFIED 05/10/2019 AMPARO ESCALANTE, RENU Bañuelos Ot M25.551 PAIN IN RIGHT HIP 05/10/2019 AMPARO ESCALANTE, RENU Bañuelos Ot M41.26 OTHER IDIOPATHIC SCOLIOSIS, LUMBAR REGIO 05/10/2019 AMPARO ESCALANTE, RENU Bañuelos Ot M51.36 OTHER INTERVERTEBRAL DISC DEGENERATION, 05/10/2019 Ot J44.9 CHRONIC OBSTRUCTIVE PULMONARY DISEASE, U 05/10/2019 Ot K44.9 DIAPHRAGMATIC HERNIA WITHOUT OBSTRUCTION 05/10/2019 Ot Z87.891 PERSONAL HISTORY OF NICOTINE DEPENDENCE 05/15/2019 DEONNA MOBLEY APRN Ot E03.9 HYPOTHYROIDISM, UNSPECIFIED 05/15/2019 DEONNA MOBLEY APRN Ot I10 ESSENTIAL (PRIMARY) HYPERTENSION 05/15/2019 DEONNA MOBLEY APRN Ot M06.9 RHEUMATOID ARTHRITIS, UNSPECIFIED 05/15/2019 DEONNA MOBLEY APRN Ot M79.7 FIBROMYALGIA 05/15/2019 DEONNA MOBLEY APRN Ot M81.0 AGE-RELATED OSTEOPOROSIS W/O CURRENT PAT 05/15/2019 DEONNA MOBLEY APRN Ot R51 HEADACHE 05/15/2019 DEONNA MOBLEY APRN Ot Z86.69 PERSONAL HISTORY OF DIS OF THE NERVOUS S 05/15/2019 DEONNA MOBLEY APRN Ot Z87.01 PERSONAL HISTORY OF PNEUMONIA (RECURRENT 05/15/2019 DEONNA MOBLEY APRN Ot Z87.19 PERSONAL HISTORY OF OTHER DISEASES OF TH 05/15/2019 DEONNA MOBLEY APRN Ot Z87.891 PERSONAL HISTORY OF NICOTINE DEPENDENCE 05/15/2019 DEONNA MOBLEY APRN Ot Z88.2 ALLERGY STATUS TO SULFONAMIDES STATUS Procedures Code Description [place] [address] PSYCH IND W/MED CK 20 11/13/2011 84242 PSYCH IND W/MED CK 20 11/18/2012 89284 PSYCH IND W/MED CK 20 01/24/2013 Results [...] Urine-pH 5.5 5-8.5 Urine-Protein 2+ Negative Urine-Specific Buxton >=1.030 1.000-1.030 Urine-WBC 2-5/HPF Urobilinogen 0.2 E.U./dL [...] 1.4 mg/dL 0.2-1.2 TP 6.2 g/dL 6.0-8.3 [facility] [place] 12:20 Anion Gap 21 6-14 [...] Chloride 111 mmol/L 95-114 CO2 28 mEq/L -33 Creat 0.86 mg/dL 0.50-1.50 eGFR 65 mL/min/1.73m2 [...] Chloride 110 mmol/L 95-114 CO2 25 mEq/L -33 Creat 0.87 mg/dL 0.50-1.50 eGFR 64 mL/min/1.73m2 [...] 5-8.5 Urine-Protein Negative Negative Urine-RBC Rare/HPF Urine-Specific Buxton 1.020 1.000-1.030 Urine-WBC 2-5/HPF Urobilinogen 1.0 E.U./dL [...] 5-8.5 Urine-Protein Trace Negative Urine-RBC Rare/HPF Urine-Specific Buxton >=1.030 1.000-1.030 Urine-WBC Rare/HPF Urobilinogen 0.2 0.2-1.0 [...] 5-8.5 Urine-Protein 2+ Negative Urine-RBC 0-2/HPF Urine-Specific Buxton >=1.030 1.000-1.030 Urine-WBC 2-5/HPF Urobilinogen 1.0 0.2-1.0 [...] 4.5 mmol/L 3.5-5.3 Sodium 146 mmol/L 134-148 01/17/18 08:51 Anion Gap 16 6-14 BUN 4 mg/dL 5-25 Calcium 9.2 mg/dL 8.3-10.4 Chloride 105 mmol/L 95-114 CO2 26 mEq/L 22-33 Creat 0.78 mg/dL 0.50-1.50 eGFR 73 mL/min/1.73m2 >59 Glucose 102 mg/dL 70-110 Osmo 292 280-295 Potassium 3.5 mmol/L 3.5-5.3 Sodium 143 mmol/L 134-148 [facility] [place] 02/03/18 01:20 Anion Gap 13 6-14 BUN [...] 32.5 g/dL 32.0-36.0 MCV 94.4 fL 80.0-97.0 Navarro% 10.0 % 0.0-12.0 MPV 10.0 fL 7.4-10.0 Deanna% 53.5 % 37.0-80.0 Plt 175 K/uL 150-400 RBC 3.72 M/uL 3.60-5.00 RDW 14.0 % 11.6-14.8 WBC 3.31 K/uL 5.00-10.00 Deanna 1.77 K/uL 2.00-6.90 Navarro 0.3 K/uL 0.0-0.9 Baso 0.0 K/uL 0.0-0.2 Surgical Pathology - 02/11/18 09:35 Surg Path Sent to [place] [facility] Comprehensive Metabolic Panel - 02/12/18 05:21 [...] 5-8.5 Urine-Protein Negative Negative Urine-RBC 0-2/HPF Urine-Specific Buxton <=1.005 1.000-1.030 Urine-WBC Negative Urobilinogen 0.2 E.U./dL 0.2-1.0 CBC with Auto Diff - 02/22/18 11:00 Baso% 0.20 % 0.00-2.50 Eos 0.1 K/uL 0.0-0.7 Eos% 1.1 % 0.0-7.0 Hct 34.6 % 36.0-46.0 Hgb 11.1 g/dL 13.0-15.0 Lym 1.70 K/uL 0.60-3.40 Lym% 36.3 % 10.0-50.0 MCH 29.9 pg 27.0-31.0 MCHC 32.1 g/dL 32.0-36.0 MCV 93.3 fL 80.0-97.0 Navarro% 15.2 % 0.0-12.0 MPV 11.0 fL 7.4-10.0 Deanna% 47.2 % 37.0-80.0 Plt 252 K/uL 150-400 RBC 3.71 M/uL 3.60-5.00 RDW 13.5 % 11.6-14.8 WBC 4.68 K/uL 5.00-10.00 Deanna 2.21 K/uL 2.00-6.90 Navarro 0.7 K/uL 0.0-0.9 Baso 0.0 K/uL 0.0-0.2 [...] - 08/29/18 21:00 Bacterial blood culture NG NR Streptococcus pyogenes antigen detection - 09/28/18 18:52 Streptococcus pyogenes antigen detection NEGATIVE NEGATIVE Bacterial throat culture - 09/28/18 18:52 Bacterial throat culture NBS NRG Complete blood count (CBC) with automated [...] 309 pg/mL 200-1100 FOLATE, SERUM 8.9 ng/mL NRG ANEMIA PANEL - 01/15/19 13:49 IRON, TOTAL 53 mcg/dL 45-160 FERRITIN 34 ng/mL 20-288 IRON BINDING CAPACITY 331 mcg/dL (calc) 250-450 % SATURATION 16 % (calc) 11-50 CMP - 01/15/19 13:49 GLUCOSE 110 mg/dL 65-99 UREA NITROGEN (BUN) 14 mg/dL 7-25 CREATININE 0.80 mg/dL 0.60-0.93 eGFR NON-AFR. BOLIVIAN 74 mL/min/1.73m2 > OR=60 eGFR 86 mL/min/1.73m2 [...] 10.5 fL 7.5-12.5 ABSOLUTE NEUTROPHILS 2979 cells/uL 3088-4232 ABSOLUTE LYMPHOCYTES 2022 cells/uL 850-3900 ABSOLUTE MONOCYTES [...] 7-25 CREATININE 0.93 mg/dL 0.60-0.93 eGFR NON-AFR. BOLIVIAN 62 mL/min/1.73m2 > OR=60 eGFR 72 mL/min/1.73m2 [...] 31.4 g/dL 32.0-36.0 MCV 91.2 fL 80.0-97.0 Navarro% 9.4 % 0.0-12.0 MPV 11.4 fL 7.4-10.0 Deanna% 71.5 % 37.0-80.0 Plt 250 K/uL 150-400 RBC 4.44 M/uL 3.60-5.00 RDW 15.1 % 11.6-14.8 WBC 9.70 K/uL 5.00-10.00 Deanna 6.93 K/uL 2.00-6.90 Navarro 0.9 K/uL 0.0-0.9 Baso 0.0 K/uL 0.0-0.2 [...] 5-8.5 Urine-Protein Negative Negative Urine-RBC Rare/HPF Urine-Specific Buxton 1.010 1.000-1.030 Urine-WBC Rare/HPF Urobilinogen 0.2 0.2-1.0 BMP - 05/10/19 03:10 Anion Gap 15 6-14 BUN 13 mg/dL 5-25 Calcium 9.8 mg/dL 8.3-10.4 Chloride 107 mmol/L 95-114 CO2 27 mEq/L 22-33 Creat 1.33 mg/dL 0.50-1.50 eGFR 39 mL/min/1.73m2 >59 Glucose 91 mg/dL 70-110 Osmo 299 280-295 Potassium 4.3 mmol/L 3.5-5.3 Sodium 145 mmol/L 134-148 BMP - 05/10/19 10:16 Anion Gap 18 6-14 BUN 11 mg/dL 5-25 Calcium 9.5 mg/dL 8.3-10.4 Chloride 110 mmol/L 95-114 CO2 23 mEq/L 22-33 Creat 1.06 mg/dL 0.50-1.50 eGFR 51 mL/min/1.73m2 >59 Glucose 97 mg/dL 70-110 Osmo 301 280-295 Potassium 4.5 mmol/L 3.5-5.3 Sodium 146 mmol/L 134-148 Complete blood count (CBC) with automated white blood cell (WBC) differential - 05/10/19 19:44 Blood leukocytes automated count (number/volume) 7.5 10*3/uL 4.3-11.0 Blood erythrocytes automated count (number/volume) 3.91 10*6/uL 4.35-5.85 Venous blood hemoglobin measurement (mass/volume) 11.0 g/dL 11.5-16.0 Blood hematocrit (volume fraction) 35 % 35-52 Automated erythrocyte mean corpuscular volume 90 [foz_us] 80-99 Automated erythrocyte mean corpuscular hemoglobin (mass per erythrocyte) 28 pg 25-34 Automated erythrocyte mean corpuscular hemoglobin concentration measurement (mass/volume) 31 g/dL 32-36 Automated erythrocyte distribution width ratio 16.1 % 10.0- 14.5 Automated blood platelet count (count/volume) 271 10*3/uL 130-400 Automated blood platelet mean volume measurement 9.7 [foz_us] 7.4-10.4 Automated blood neutrophils/100 leukocytes 69 % 42-75 Automated blood lymphocytes/100 leukocytes 23 % 12-44 Blood monocytes/100 leukocytes 8 % 0-12 Automated blood eosinophils/100 leukocytes 0 % 0-10 Automated blood basophils/100 leukocytes 0 % 0-10 Blood neutrophils automated count (number/volume) 5.1 10*3 1.8-7.8 Blood lymphocytes automated count (number/volume) 1.7 10*3 1.0-4.0 Blood monocytes automated count (number/volume) 0.6 10*3 0.0- 1.0 Automated eosinophil count 0.0 10*3/uL 0.0-0.3 Automated blood basophil count (count/volume) 0.0 10*3/uL 0.0-0.1 Comprehensive metabolic panel - 05/10/19 19:44 Serum or plasma sodium measurement (moles/volume) 145 mmol/L 135-145 Serum or plasma potassium measurement (moles/volume) 4.2 mmol/L 3.6-5.0 Serum or plasma chloride measurement (moles/volume) 110 mmol/L 98-107 Carbon dioxide 25 mmol/L 21-32 Serum or plasma anion gap determination (moles/volume) 10 mmol/L 5-14 Serum or plasma urea nitrogen measurement (mass/volume) 14 mg/dL 7-18 Serum or plasma creatinine measurement (mass/volume) 1.01 mg/dL 0.60-1.30 Serum or plasma urea nitrogen/creatinine mass ratio 14 NRG Serum or plasma creatinine measurement with calculation of estimated glomerular filtration rate 54 NRG Serum or plasma glucose measurement (mass/volume) 113 mg/dL 70-105 Serum or plasma calcium measurement (mass/volume) 9.0 mg/dL 8.5-10.1 Serum or plasma total bilirubin measurement (mass/volume) 0.4 mg/dL 0.1-1.0 Serum or plasma alkaline phosphatase measurement (enzymatic activity/volume) 95 U/L 40-136 Serum or plasma aspartate aminotransferase measurement (enzymatic activity/volume) 13 U/L 5-34 Serum or plasma alanine aminotransferase measurement (enzymatic activity/volume) 13 U/L 0-55 Serum or plasma protein measurement (mass/volume) 5.6 g/dL 6.4-8.2 Serum or plasma albumin measurement (mass/volume) 3.5 g/dL 3.2-4.5 CALCIUM CORRECTED 9.4 mg/dL 8.5-10.1 Erythrocyte sedimentation rate by westergren method - 05/10/19 19:44 Erythrocyte sedimentation rate by westergren method 14 mm 0-30 Acetylcholine receptor blocking antibody assay - 05/10/19 19:44 ACETYLCHOLINE TAG WRITER BINDING AB 0.0 % 0.0-0.4 Complete urinalysis with reflex to culture - 05/11/19 13:57 Urine color determination YELLOW NRG Urine clarity determination CLEAR NRG Urine pH measurement by test strip 6.5 5-9 Specific gravity of urine by test strip 1.010 1.016-1.022 Urine protein assay by test strip, semi-quantitative NEGATIVE NEGATIVE Urine glucose detection by automated test strip NEGATIVE NEGATIVE Erythrocytes detection in urine sediment by light microscopy NEGATIVE NEGATIVE Urine ketones detection by automated test strip NEGATIVE NEGATIVE Urine nitrite detection by test strip NEGATIVE NEGATIVE Urine total bilirubin detection by test strip NEGATIVE NEGATIVE Urine urobilinogen measurement by automated test strip (mass/volume) NORMAL NORMAL Urine leukocyte esterase detection by dipstick NEGATIVE NEGATIVE Automated urine sediment erythrocyte count by microscopy (number/high power field) NONE NRG Automated urine sediment leukocyte count by microscopy (number/high power field) NONE NRG Bacteria detection in urine sediment by light microscopy NEGATIVE NRG Squamous epithelial cells detection in urine sediment by light microscopy 0-2 NRG Crystals detection in urine sediment by light microscopy NONE NRG Casts detection in urine sediment by light microscopy NONE NRG Mucus detection in urine sediment by light microscopy NEGATIVE NRG Complete urinalysis with reflex to culture NO NRG Complete blood count (CBC) with automated white blood cell (WBC) differential - 05/11/19 14:24 Blood leukocytes automated count (number/volume) 8.1 10*3/uL 4.3-11.0 Blood erythrocytes automated count (number/volume) 3.89 10*6/uL 4.35-5.85 Venous blood hemoglobin measurement (mass/volume) 11.0 g/dL 11.5-16.0 Blood hematocrit (volume fraction) 35 % 35-52 Automated erythrocyte mean corpuscular volume 89 [foz_us] 80-99 Automated erythrocyte mean corpuscular hemoglobin (mass per erythrocyte) 28 pg 25-34 Automated erythrocyte mean corpuscular hemoglobin concentration measurement (mass/volume) 32 g/dL 32-36 Automated erythrocyte distribution width ratio 16.1 % 10.0- 14.5 Automated blood platelet count (count/volume) 298 10*3/uL 130-400 Automated blood platelet mean volume measurement 9.9 [foz_us] 7.4-10.4 Automated blood neutrophils/100 leukocytes 79 % 42-75 Automated blood lymphocytes/100 leukocytes 13 % 12-44 Blood monocytes/100 leukocytes 8 % 0-12 Automated blood eosinophils/100 leukocytes 0 % 0-10 Automated blood basophils/100 leukocytes 0 % 0-10 Blood neutrophils automated count (number/volume) 6.4 10*3 1.8-7.8 Blood lymphocytes automated count (number/volume) 1.0 10*3 1.0-4.0 Blood monocytes automated count (number/volume) 0.7 10*3 0.0- 1.0 Automated eosinophil count 0.0 10*3/uL 0.0-0.3 Automated blood basophil count (count/volume) 0.0 10*3/uL 0.0-0.1 PT panel in platelet poor plasma by coagulation assay - 05/11/19 14:24 Prothrombin time (PT) in platelet poor plasma by coagulation assay 14.0 s 12.2-14.7 INR in platelet poor plasma or blood by coagulation assay 1.0 0.8-1.4 Activated partial thromboplastin time (aPTT) in platelet poor plasma bycoagulation assay - 05/11/19 14:24 Activated partial thromboplastin time (aPTT) in platelet poor plasma bycoagulation assay 26 s 24-35 Comprehensive metabolic panel - 05/11/19 14:24 Serum or plasma sodium measurement (moles/volume) 142 mmol/L 135-145 Serum or plasma potassium measurement (moles/volume) 4.1 mmol/L 3.6-5.0 Serum or plasma chloride measurement (moles/volume) 107 mmol/L 98-107 Carbon dioxide 24 mmol/L 21-32 Serum or plasma anion gap determination (moles/volume) 11 mmol/L 5-14 Serum or plasma urea nitrogen measurement (mass/volume) 15 mg/dL 7-18 Serum or plasma creatinine measurement (mass/volume) 0.94 mg/dL 0.60-1.30 Serum or plasma urea nitrogen/creatinine mass ratio 16 NRG Serum or plasma creatinine measurement with calculation of estimated glomerular filtration rate 59 NRG Serum or plasma glucose measurement (mass/volume) 114 mg/dL 70-105 Serum or plasma calcium measurement (mass/volume) 9.3 mg/dL 8.5-10.1 Serum or plasma total bilirubin measurement (mass/volume) 0.5 mg/dL 0.1-1.0 Serum or plasma alkaline phosphatase measurement (enzymatic activity/volume) 90 U/L 40-136 Serum or plasma aspartate aminotransferase measurement (enzymatic activity/volume) 13 U/L 5-34 Serum or plasma alanine aminotransferase measurement (enzymatic activity/volume) 13 U/L 0-55 Serum or plasma protein measurement (mass/volume) 5.9 g/dL 6.4-8.2 Serum or plasma albumin measurement (mass/volume) 3.7 g/dL 3.2-4.5 CALCIUM CORRECTED 9.5 mg/dL 8.5-10.1 Magnesium - 05/11/19 14:24 Magnesium 2.2 mg/dL 1.8-2.4 Capillary blood glucose measurement by glucometer (mass/volume) - 05/11/19 14:48 Capillary blood glucose measurement by glucometer (mass/volume) 110 mg/dL 70-110 Blood lactic acid measurement (moles/volume) - 05/11/19 15:11 Blood lactic acid measurement (moles/volume) 0.74 mmol/L 0.50- 2.00 Encounters ACCT No. Visit Date/Time Discharge Status Pt. Type Provider Facility Loc./Unit Complaint [id number] 05/06/2019 09:20:00 05/06/2019 23:59:59 CLS Outpatient MAC MADDEN CHCHUNG BAE [id number] 04/17/2019 09:00:00 Document Registration [id number] 03/13/2019 14:00:00 Document Registration [id number] 01/15/2019 13:15:00 Document Registration [id number] 09/30/2014 16:41:00 09/30/2014 23:59:59 CLS Outpatient MICHELLE COLEY [id number] 07/15/2014 13:28:00 07/15/2014 23:59:59 CLS Outpatient ESPITIA ROOSEVELT [facility]OWN [id number] 05/06/2014 09:25:00 05/06/2014 23:59:59 CLS Outpatient NUPUR ALBERT SAMARA KEVIN [id number] 04/06/2014 09:02:00 04/06/2014 23:59:59 CLS Outpatient ESPITIA ROOSEVELT SAMARA KEVIN [id number] 02/24/2014 12:55:00 02/24/2014 23:59:59 CLS Outpatient ESPITIA APRN, SAMARA KEVIN [id number] 02/04/2014 13:24:00 02/04/2014 23:59:59 CLS Outpatient ESPITIA ROOSEVELT SAMARA BROWN [id number] 11/19/2013 10:21:00 11/19/2013 23:59:59 CLS Outpatient NUPUR ALBERT SAMARA KEVIN [id number] 09/15/2013 09:11:00 09/15/2013 23:59:59 CLS Outpatient SAMARA ESPITIA APRN [id number] 06/03/2013 13:58:00 06/03/2013 23:59:59 CLS Outpatient ANDER GRANT DO [id number] 11/18/2012 13:44:00 11/18/2012 23:59:59 CLS Outpatient SAMARA ESPITIA APRN [id number] 10/17/2012 14:16:00 10/17/2012 23:59:59 CLS Outpatient SAMARA ESPITIA APRN [id number] 11/10/2011 14:31:00 11/10/2011 23:59:59 CLS Outpatient [id number] 04/10/2013 11:20:00 Document Registration [id number] 01/24/2013 13:15:00 Document Registration [id number] 05/10/2019 09:55:00 05/10/2019 23:59:00 DIS Outpatient Matt Ragland [id number] 05/10/2019 01:44:00 05/10/2019 04:45:00 DIS Outpatient VIOLETTA ALBERT [facility] ER [id number] 05/05/2019 22:28:00 05/05/2019 23:16:00 DIS Outpatient NEFTALY [facility] ER [id number] 05/02/2019 12:03:00 05/02/2019 14:22:00 [id number] 08/16/2018 08:57:00 08/16/2018 10:23:00 [id number] 08/04/2018 00:35:00 08/04/2018 01:58:00 DIS Outpatient Jacqiu Lewis [facility] ER [id number] 08/01/2018 14:00:00 08/01/2018 15:05:00 DIS Outpatient Jean Wallace [facility] ER [id number] 07/17/2018 09:16:00 07/17/2018 23:59:00 DIS Outpatient NINO DOMINGUEZ [id number] 01/18/2018 00:00:00 04/10/2018 07:48:00 DIS Outpatient Mac Madden [id number] 02/22/2018 12:04:00 02/22/2018 23:59:00 DIS Outpatient Mac Madden [id number] 02/12/2018 05:09:00 02/12/2018 08:24:00 DIS Outpatient GISELA HIGGINBOTHAM [facility] ER [id number] 02/11/2018 06:58:00 02/11/2018 09:30:00 DIS Outpatient Jac Vanessa [id number] 02/03/2018 00:28:00 02/04/2018 14:40:00 DIS Outpatient Bruce Stoner [facility] [id number] 01/14/2018 08:15:00 01/17/2018 14:00:00 DIS Inpatient [id number] 11/17/2017 02:01:00 11/17/2017 06:53:00 DIS Outpatient [facility] ER [id number] 07/23/2017 11:33:00 07/25/2017 14:15:00 DIS Outpatient [facility] MED-SURG [id number] 01/12/2017 14:08:00 01/13/2017 13:20:00 DIS Outpatient Matt Ragland [id number] 07/19/2018 10:31:21 Document Registration [id number] 01/12/2017 14:50:40 Document Registration [id number] 05/11/2019 13:41:00 05/11/2019 16:27:00 DIS Emergency LORENA LAWRENCE DO [facility] ER MIGRAINE [id number] 05/10/2019 18:59:00 05/10/2019 22:40:00 DIS Outpatient DEONNA MOBLEY APRN [facility] ER MIGRAINE [id number] 03/05/2019 15:35:00 03/05/2019 20:00:00 DIS Emergency LORENA LAWRENCE DO [facility] ER DEHYDRATED [id number] 09/28/2018 16:14:00 09/28/2018 20:06:00 DIS Emergency DEONNA MOBLEY APRN [facility] ER SORE THROAT/FEVER [id number] 08/29/2018 19:24:00 08/29/2018 22:02:00 DIS Emergency KIRSTIN GARZA MD [facility] ER R LOWER LEG POSS CELLULITIS [id number] 05/09/2017 12:18:00 05/09/2017 23:59:59 CLS Outpatient AMPARO ESCALANTE, RENU Bañuelos [facility] RAD 4+ [id number]], [id number] 03/19/2017 09:00:00 03/19/2017 23:59:59 CLS Outpatient YURI SEYMOUR MD [facility] RAD DIARRHEA [id number] 06/10/2015 16:09:00 06/26/2015 11:30:00 DIS Inpatient SANGEETA ESCALANTE, MUKUL Cordova [facility] IRF LRFT TIB FIB FRX [id number] 01/10/2019 09:58:00 Document Registration
--- NOTE | 2019-05-17 04:03 | ED 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 Problem ---
General Chief Complaint: Dizziness/Syncope Stated Complaint: DIZZY,WEAKNESS Nursing Triage Note: arrives via ems to room 3, a&ox4 dr holbrook in room Nursing Sepsis Screen: No Definite Risk Source: patient Exam Limitations: no limitations History of Present Illness Date Seen by Provider: May 17, 2019 Time Seen by Provider: 03:45 Initial Comments Patient presents to ER by EMS from home with chief complaint that just within an hour or 2 before arrival she woke up in the middle the night and surgeon feel dizzy feeling her head was swimming and movement although she was not moving. She said she's had this one time before going to have it adequately worked up. She has no history of stroke, vascular disease. She doesn't history of CHF but she's not having any shortness of breath cough fever chills headache numbness weakness paresthesia. She denies a history of diabetes. She says she's been taking her medications normally. She has had a runny nose and upper respiratory tract infection diagnosed a few days ago by her primary care. Allergies and Home Medications Allergies Coded Allergies: Sulfa (Sulfonamide Antibiotics) (Verified Allergy, Unknown, 05/17/19) Home Medications Amitriptyline HCl 25 Mg Tablet, 25 MG PO HS, (Reported) Aripiprazole 15 Mg Tablet, 15 MG PO DAILY, (Reported) Cephalexin 500 Mg Tablet, 500 MG PO QID Prescribed by: KIRSTIN HOLBROOK on 08/29/182123 Cholecalciferol (Vitamin D3) 1,000 Unit Tablet, 1,000 UNIT PO DAILY, (Reported) Gabapentin 300 Mg Capsule, 300 MG PO BID, (Reported) Levothyroxine Sodium 75 Mcg Tablet, 75 MCG PO DAILY, (Reported) Memantine HCl 5 Mg Tablet, 5 MG PO BID 5 MG PO Q AM and HS. Prescribed by: BLU QUINONES on 06/10/15 1523 Metoprolol Tartrate 50 Mg Tablet, 50 MG PO DAILY, (Reported) Pantoprazole Sodium 40 Mg Tablet.dr, 40 MG PO DAILY, (Reported) Prednisone 10 Mg Tab, 30 MG PO DAILY Prescribed by: REGLA LAWRENCE on 05/11/19 1441 Sucralfate 1 Gm Tablet, 1 GM PO QIDACHS Prescribed by: REGLA LAWRENCE on 03/05/19 1914 Sumatriptan Succinate 100 Mg Tablet, 0.5 TAB PO PRN PRN for HEADACHE May repeat in 2 hours; Max 200 MG/24 hours. Prescribed by: BLU QUINONES on 06/10/151554 Tramadol HCl 50 Mg Tablet, 50 MG PO BID, (Reported) Vitamin E 400 Unit Capsule, 400 UNIT PO DAILY, (Reported) Vortioxetine Hydrobromide 5 Mg Tablet, 5 MG PO DAILY, (Reported) [Biotin] , 10,000 MCG PO Evening Prescribed by: BLU QUINONES on 06/12/15 1530 [Folic Acid 1MG] , 2 MG PO DAILY, (Reported) [Iron 65MG] , 65 MG PO Evening Prescribed by: BLU QUINONES on 06/12/15 1530 [Nitrostat] , 0.4 MG SL UD Q5 min X3 PRN. Prescribed by: BLU QUINONES on 06/10/151554 [Potassium] , 20 MEQ PO BID, (Reported) Patient Home Medication List Home Medication List Reviewed: Yes Review of Systems Review of Systems Constitutional: No chills, No fever, No malaise Eyes: Denies Blindness, Denies Blurred Vision Ears, Nose, Mouth, Throat: see HPI; denies ear pain, denies ear discharge; nose discharge Respiratory: No cough, No short of breath Cardiovascular: No chest pain, No Hx of Intervention, No palpitations, No syncope, No vascular heart diseas Gastrointestinal: No abdominal pain, No constipation Genitourinary: No discharge, No dysuria Past Doiiymg-Ltgiva-Tilvgn Hx Patient Social History Alcohol Use: Denies Use Recreational Drug Use: No Former Smoker, Quit: Sep 27, 1997 2nd Hand Smoke Exposure: No Recent Foreign Travel: No Contact w/Someone Who Travel: No Recent Infectious Disease Expo: No Recent Hopitalizations: No Immunizations Up To Date Tetanus Booster (TDap): Unknown PED Vaccines UTD: Yes Date of Pneumonia Vaccine: Nov 05, 2012 Seasonal Allergies Seasonal Allergies: Yes Past Medical History Surgeries: Yes Abdominal, Bowel Surgery, Hysterectomy Respiratory: Yes Pneumonia, COPD Cardiac: Yes High Cholesterol, Hypertension 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 11.2oz. [id number]; 26.57 BMI Method:Stated General Appearance: WD/WN, no apparent distress HEENT: PERRL/EOMI, normal ENT inspection, TM abnormal (R) (bilateral otitis effusion without erythema, injection, loss of tympanic membrane landmarks. 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 Negative for nystagmus on horizontal gaze deviation. Negative for vertical deviation on test of skew.) Coordination/Gait: normal finger to nose Motor/Sensory: no motor deficit, no sensory deficit, no pronator drift Skin: normal color, warm/dry Stroke Onset of Symptoms Date of Onset of Symptoms: May 17, 2019 Time of Symptom Onset: 02:00 NIH Stroke Scale Assessment Select: Initial Level of Consciousness: 0=Alert (0), Level of Consciousness- Questions: 0=Answers both month/age (0), LOC Commands: 0=Performs both tasks (0), Gaze: Normal (0), Visual Garcia: 0=No visual loss (0), Facial Movement (Facial Paresis): 0=Normal symmetrical mnt (0), Motor Function-Arms Right: 0=No drift (0), Motor Function-Arms Left: 0=No drift (0), Motor Function-Legs Right: 0=No drift (0), Motor Function-Legs Left: 0=No drift (0), Limb Ataxia: 0=Absent (0), Sensory: 0=Normal:no loss (0), Best Language: 0=No aphasia (0), Dysarthria: 0=Normal (0), Extinction & Inattention: 0=No abnormality (0), Total: 0 Stroke Thrombolytic Exclusion Age 18 or Over: Yes Acute intenal hemorrhage: No History of CVA: No Uncontrolled Coagulation Defec: No Intracranial Hemorrhage: No Severe Hypertension: No GI or Bleed: No Subarachnoid Hemorrhage: No Intracranial Neoplasm/Aneurysm: No Oral Anticoagulants: No Surgery or Trauma: No Puncture of Non-Compressible V: No Recent CPR: No Diabetic Hemorrhagic Retinopat: No Organ Biopsy: No Recent Obstetric Delivery: No Glucose: No (84) Significant Hepatic Dysfunctio: No NIH Stoke Scale >22: No Bacterial Endocarditis: No Pericarditis: No Improving Symptoms: No Platelets: No TPA Contraindication: No IV - TPa Received IV - TPa Procedure Performed?: No Progress/Results/Core Measures Results/Orders Lab Results Laboratory Tests Test 05/17/19 03:55 Range/Units Glucometer 84 70-110 MG/DL My Orders Orders - KIRSTIN HOLBROOK Ondansetron Oral Dissolve Tab (Zofran (05/17/19 03:48) Accucheck Stat ONCE (05/17/19 03:55) Meclizine Tablet (Antivert Tablet) (05/17/19 04:30) Meclizine Tablet (Antivert Tablet) (05/17/19 04:15) Medications Given in ED Current Medications Medications Dose Ordered Sig/Mana Route Start Time Stop Time Status Last Admin Dose Admin Meclizine HCl 25 mg ONCE ONCE PO 05/17/19 04:30 05/17/19 04:31 DC 05/17/19 04:16 25 MG Ondansetron HCl 4 mg STK-MED ONCE .ROUTE 05/17/19 03:48 05/17/19 03:54 DC 05/17/19 03:54 4 MG Vital Signs/I&O 05/17/19 03:45 Temp 97.8 Pulse 66 Resp 20 B/P (MAP) 168/95 (119) Pulse Ox 97 Blood Pressure Mean: 119 FSBG Bedside Testing Finger Stick Blood Glucose: 84 Progress Progress Note #1: Time: 04:02 Progress Note The patient has a HINTS negative exam and no neurologic features of her vertigo. We'll going to give her some Zofran to help her get over her nausea and then do Jimmie-Hallpike maneuver see if we can lateralize it. We could also send her home with a prescription of meclizine and at least maneuvers. Progress Note #2: Time: 04:21 Progress Note Jimmie-Hallpike maneuvers re-creating her vertiginous symptoms on the left side. They only lasted about 10-15 seconds of rotational nystagmus and vertigo. We'll give her a dose of meclizine and allow her to follow up with her primary doctor. We have taught her Grupo's maneuvers and given her a handout with pictures. I suspect that her middle ear effusion from her upper respiratory tract infection may be contributing to labyrinthitis and vertigo. She had been prescribed oral steroids by Zofia napier at the clinic yesterday but we'll suggest that she could probably get away with just a nasal topical steroid. Departure Impression Primary Impression: Vertigo Additional Impressions: Labyrinthitis of left ear Upper respiratory tract infection Qualified Codes: J06.9 - Acute upper respiratory infection, unspecified Bilateral otitis media with effusion Disposition: 01 HOME, SELF-CARE Condition: Stable Departure-Patient Inst. Decision time for Depature: 04:23 Referrals: MAC HANDY MD (PCP/Family) Primary Care Physician Patient Instructions: Vertigo (a Type of Dizziness) (DC), Labyrinthitis Add. Discharge Instructions: You may use one tablet of meclizine every 6 hours as needed for dizziness. Every time you have a bout of vertigo you need to Perform the Grupo exercises 10 times per the handout. 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 Use 1 puff in each nostril twice a day for the next 1-2 weeks to help relieve the pressure from your inner ear infection. Follow-up with your primary care doctor if you're not seeing relief of symptoms. Physical therapy can be very helpful. All discharge instructions reviewed with patient and/or family. Voiced understanding. Scripts Meclizine HCl (Meclizine HCl) 25 Mg Tablet 25 MG PO Q6H PRN for VERTIGO, #20 TAB 0 Refills Prov: KIRSTIN HOLBROOK 05/17/19 KIRSTIN HOLBROOK May 17, 2019 04:03
[2019-05-17] MEDS ORDERED: MECLIZINE 25 MG (ANTIVERT) TAB ONE (04:15)
[2019-05-17] MEDS ORDERED: MECLIZINE 25 MG (ANTIVERT) TAB PO ONE (04:30)
[2019-05-17] MEDS ORDERED: MECL-106 PO (04:40)
[2019-05-17 04:49] VITALS: BP 150/76
== END 2019-05-17 04:49 | disposition home or self-care (01) ==
LOC: EDUNIT# 03:43 → ER 03:45
DX: H83.02 Labyrinthitis, left ear (principal); J06.9 Acute upper respiratory infection, unspecified; H65.93 Unspecified nonsuppurative otitis media, bilateral; J44.9 Chronic obstructive pulmonary disease, unspecified; I10 Essential (primary) hypertension; E78.00 Pure hypercholesterolemia, unspecified; M06.9 Rheumatoid arthritis, unspecified; M79.7 Fibromyalgia; E03.9 Hypothyroidism, unspecified; F41.9 Anxiety disorder, unspecified; F32.9 Major depressive disorder, single episode, unspecified; Z87.19 Personal history of other diseases of the digestive system; Z87.01 Personal history of pneumonia (recurrent); Z88.2 Allergy status to sulfonamides; Z90.710 Acquired absence of both cervix and uterus
CPT/HCPCS: 82962

== ENCOUNTER 2019-05-22 01:38 | Emergency (ER) | payer MEDICARE, MEDICAID | END 2019-05-22 05:11 | disposition home or self-care (01) | LOC: ER 01:38 ==

== ENCOUNTER 2019-05-23 21:58 | Emergency (ER) | payer MEDICARE, MEDICAID ==
[~2019-05-23] VITALS: Ht 157.5 cm; Wt 56.7 kg
[~2019-05-23 21:58] MED LIST changes: +MECL-106 PO
[2019-05-23 23:22] LABS: BASOPHILS % (AUTO) 0 % (0-10); EOSINOPHILS # (AUTO) 0.1 10^3/uL (0.0-0.3); EOSINOPHILS % (AUTO) 1 % (0-10); HEMATOCRIT 33 % (35-52); HEMOGLOBIN 10.3 G/DL (11.5-16.0); LYMPHOCYTES % (AUTO) 34 % (12-44); MEAN CORPUSCULAR HEMOGLOBIN 28 PG (25-34); MEAN CORPUSCULAR HGB CONC 31 G/DL (32-36); MEAN CORPUSCULAR VOLUME 89 FL (80-99); MEAN PLATELET VOLUME 9.9 FL (7.4-10.4); MONOCYTES # (AUTO) 0.7 X 10^3 (0.0-1.0); MONOCYTES % (AUTO) 12 % (0-12); NEUTROPHILS # (AUTO) 3.1 X 10^3 (1.8-7.8); NEUTROPHILS % (AUTO) 53 % (42-75); PLATELET COUNT 237 10^3/uL (130-400); RED CELL DISTRIBUTION WIDTH 16.6 % (10.0-14.5); WHITE BLOOD COUNT 5.9 10^3/uL (4.3-11.0)
[2019-05-23 23:44] LABS: ALANINE AMINOTRANSFERASE 13 U/L (0-55); ALBUMIN 3.7 GM/DL (3.2-4.5); ALKALINE PHOSPHATASE 111 U/L (40-136); BILIRUBIN,TOTAL 0.5 MG/DL (0.1-1.0); BUN/CREATININE RATIO 8; CALCIUM 9.5 MG/DL (8.5-10.1); CARBON DIOXIDE 24 MMOL/L (21-32); CHLORIDE 107 MMOL/L (98-107); CREATININE SERUM 0.87 MG/DL (0.60-1.30); GFR ESTIMATED > 60; GLUCOSE 87 MG/DL (70-105); SODIUM 143 MMOL/L (135-145)
--- NOTE | 2019-05-24 00:04 | NUR ---
PT ASSISSTED UP TO BSC, DENIES COMPLAINTS AT THIS TIME.
[2019-05-24 00:14] LABS: BILIRUBIN,URINE NEGATIVE (NEGATIVE); CLARITY,URINE CLEAR; COLOR,URINE YELLOW; GLUCOSE, URINE (UA) NEGATIVE (NEGATIVE); KETONES,URINE NEGATIVE (NEGATIVE); LEUKOCYTE ESTERASE ,URINE NEGATIVE (NEGATIVE); NITRITE,URINE NEGATIVE (NEGATIVE); PH,URINE 6.5 (5-9); PROTEIN,URINE NEGATIVE (NEGATIVE); UROBILINOGEN,URINE NORMAL (NORMAL)
[2019-05-24 00:34] LABS: BACTERIA,URINE TRACE /HPF; SQUAMOUS EPITHELIAL CELL,UR 0-2 /HPF
--- NOTE | 2019-05-24 00:51 | ED Abdominal Pain ---
General Chief Complaint: Rect Problems Stated Complaint: RECTAL BLEEDING Nursing Triage Note: RECTAL PROLAPSE X2 WEEKS, LOWER ABDOMINAL PAIN X1 DAY. Sepsis Screen: No Definite Risk Source of Information: Patient, Old Records Exam Limitations: No Limitations History of Present Illness Date Seen by Provider: May 23, 2019 Time Seen by Provider: 22:59 Initial Comments This 74-year-old woman presents to the emergency room with complaints of rectal prolapse and bleeding. She reports having prolapse any time she stands up or bends. This has been a worsening problem for the past 2 weeks. She was seen in the ER yesterday. She was instructed to start MiraLAX for constipation to help alleviate pressure on the prolapse. She did not start MiraLAX as directed. She does not seem to have active bleeding at this time. She reports having surgery about [address] Saucedo in [place] for correction of prolapse. She has not seen a surgeon recently for this problem. Her primary care providers Dr. Handy. She reports losing sleep over this issue. She has also worn out from the effort it takes to manage the prolapse and cleanup after bowel movements. Allergies and Home Medications Allergies Coded Allergies: Sulfa (Sulfonamide Antibiotics) (Verified Allergy, Unknown, 05/17/19) Home Medications Amitriptyline HCl 25 Mg Tablet, 25 MG PO HS, (Reported) Aripiprazole 15 Mg Tablet, 15 MG PO DAILY, (Reported) Cholecalciferol (Vitamin D3) 1,000 Unit Tablet, 1,000 UNIT PO DAILY, (Reported) Gabapentin 300 Mg Capsule, 300 MG PO BID, (Reported) Levothyroxine Sodium 75 Mcg Tablet, 75 MCG PO DAILY, (Reported) Meclizine HCl 25 Mg Tablet, 25 MG PO Q6H PRN for VERTIGO Prescribed by: KIRSTIN GARZA on 05/17/19 0440 Memantine HCl 5 Mg Tablet, 5 MG PO BID 5 MG PO Q AM and HS. Prescribed by: BLU QUINONES on 06/10/15 1523 Metoprolol Tartrate 50 Mg Tablet, 50 MG PO DAILY, (Reported) Pantoprazole Sodium 40 Mg Tablet.dr, 40 MG PO DAILY, (Reported) Prednisone 10 Mg Tab, 30 MG PO DAILY Prescribed by: REGLA CABAN on 05/11/19 1441 Sucralfate 1 Gm Tablet, 1 GM PO QIDACHS Prescribed by: REGLA CABAN on 03/05/191913 Sumatriptan Succinate 100 Mg Tablet, 0.5 TAB PO PRN PRN for HEADACHE May repeat in 2 hours; Max 200 MG/24 hours. Prescribed by: BLU QUINONES on 06/10/15 155 Tramadol HCl 50 Mg Tablet, 50 MG PO BID, (Reported) Vitamin E 400 Unit Capsule, 400 UNIT PO DAILY, (Reported) Vortioxetine Hydrobromide 5 Mg Tablet, 5 MG PO DAILY, (Reported) [Biotin] , 10,000 MCG PO Evening Prescribed by: BLU QUINONES on 06/12/15 153 [Folic Acid 1MG] , 2 MG PO DAILY, (Reported) [Iron 65MG] , 65 MG PO Evening Prescribed by: BLU QUINONES on 06/12/15 153 [Nitrostat] , 0.4 MG SL UD Q5 min X3 PRN. Prescribed by: BLU QUINONES on 06/10/15 155 [Potassium] , 20 MEQ PO BID, (Reported) Patient Home Medication List Home Medication List Reviewed: Yes Review of Systems Review of Systems Constitutional: no symptoms reported EENTM: No Symptoms Reported Respiratory: No Symptoms Reported Cardiovascular: No Symptoms Reported Gastrointestinal: See HPI Genitourinary: No Symptoms Reported Musculoskeletal: no symptoms reported Skin: no symptoms reported Psychiatric/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: No Symptoms Reported Endocrine: No Symptoms Reported Hematologic/Lymphatic: No Symptoms Reported Past Pewzpio-Sydmrf-Tzvjsl Hx Patient Social History Alcohol Use: Denies Use Recreational Drug Use: No Smoking Status: Former Smoker Former Smoker, Quit: May 13, 2009 2nd Hand Smoke Exposure: No Recent Foreign Travel: No Contact w/Someone Who Travel: No Recent Infectious Disease Expo: No Recent Hopitalizations: No Physical Abuse: No Sexual Abuse: No Mistreated: No Fear: No Immunizations Up To Date Tetanus Booster (TDap): Unknown PED Vaccines UTD: Yes Date of Pneumonia Vaccine: Nov 05, 2012 Seasonal Allergies Seasonal Allergies: Yes Past Medical History Surgeries: Yes (REPAIR OF RECTAL PROLAPSE; COLONOSCOPIES) Abdominal, Bowel Surgery, Gallbladder, Hysterectomy Respiratory: Yes Pneumonia, COPD Cardiac: Yes High Cholesterol, Hypertension 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: No Headaches /Migraines, Vertigo : No 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, 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 Genitourinary: No Gastrointestinal: Yes (Ulcerative colitis; RECTAL PROLAPSE) Gastroesophageal Reflux, Crohns Disease, Chronic Constipation, Chronic Diarrhea, Hiatal Hernia, Gall Bladder Disease, Irritable Bowel Musculoskeletal: Yes Osteoporosis, Arthritis, Fibromyalgia, Rheumatoid Arthritis Endocrine: Yes Hypothyroidsim HEENT: Yes Glaucoma Cancer: No Psychosocial: Yes Anxiety, Depression Integumentary: No Blood Disorders: No Physical Exam Vital Signs Vital Signs - First Documented 05/23/19 22:40 Temp 98.5 Pulse 87 Resp 18 B/P (MAP) 139/80 (99) Pulse Ox 96 O2 Delivery Room Air Capillary Refill : Less Than 3 Seconds Height/Weight/BMI Height: 5'2.00" Weight: 125lbs. 0oz. 56.724707uy; 26.57 BMI Method:Stated General Appearance: WD/WN, no apparent distress HEENT: normal ENT inspection Neck: normal inspection Respiratory: lungs clear, normal breath sounds, no respiratory distress Cardiovascular: regular rate, rhythm, no edema, no murmur Gastrointestinal: normal bowel sounds, soft, tenderness (mild in the lower abdomen) Genital/Rectal: heme negative stool, other (mild bulging about the rectum but no overt prolapse. 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, no motor/sensory deficits, alert, normal mood/affect, oriented x 3 Skin: normal color, warm/dry Progress/Results/Core Measures Results/Orders Lab Results Laboratory Tests Test 05/23/19 23:10 05/24/19 00:04 Range/Units White Blood Count 5.9 4.3-11.0 10^3/uL Red Blood Count 3.73 L 4.35-5.85 10^6/uL Hemoglobin 10.3 L 11.5-16.0 G/DL Hematocrit 33 L 35-52 % Mean Corpuscular Volume 89 80-99 FL Mean Corpuscular Hemoglobin 28 25-34 PG Mean Corpuscular Hemoglobin Concent 31 L 32-36 G/DL Red Cell Distribution Width 16.6 H 10.0-14.5 % Platelet Count 237 130-400 10^3/uL Mean Platelet Volume 9.9 7.4-10.4 FL Neutrophils (%) (Auto) 53 42-75 % Lymphocytes (%) (Auto) 34 12-44 % Monocytes (%) (Auto) 12 0-12 % Eosinophils (%) (Auto) 1 0-10 % Basophils (%) (Auto) 0 0-10 % Neutrophils # (Auto) 3.1 1.8-7.8 X 10^3 Lymphocytes # (Auto) 2.0 1.0-4.0 X 10^3 Monocytes # (Auto) 0.7 0.0-1.0 X 10^3 Eosinophils # (Auto) 0.1 0.0-0.3 10^3/uL Basophils # (Auto) 0.0 0.0-0.1 10^3/uL Sodium Level 143 135-145 MMOL/L Potassium Level 4.0 3.6-5.0 MMOL/L Chloride Level 107 98-107 MMOL/L Carbon Dioxide Level 24 21-32 MMOL/L Anion Gap 12 5-14 MMOL/L Blood Urea Nitrogen 7 7-18 MG/DL Creatinine 0.87 0.60-1.30 MG/DL Estimat Glomerular Filtration Rate > 60 BUN/Creatinine Ratio 8 Glucose Level 87 70-105 MG/DL Calcium Level 9.5 8.5-10.1 MG/DL Corrected Calcium 9.7 8.5-10.1 MG/DL Total Bilirubin 0.5 0.1-1.0 MG/DL Aspartate Amino Transf (AST/SGOT) 17 5-34 U/L Alanine Aminotransferase (ALT/SGPT) 13 0-55 U/L Alkaline Phosphatase 111 40-136 U/L Total Protein 6.0 L 6.4-8.2 GM/DL Albumin 3.7 3.2-4.5 GM/DL Urine Color YELLOW Urine Clarity CLEAR Urine pH 6.5 5-9 Urine Specific [place] 1.010 L 1.016-1.022 Urine Protein NEGATIVE NEGATIVE Urine Glucose (UA) NEGATIVE NEGATIVE Urine Ketones NEGATIVE NEGATIVE Urine Nitrite NEGATIVE NEGATIVE Urine Bilirubin NEGATIVE NEGATIVE Urine Urobilinogen NORMAL NORMAL MG/DL Urine Leukocyte Esterase NEGATIVE NEGATIVE Urine RBC (Auto) NEGATIVE NEGATIVE Urine RBC NONE /HPF Urine WBC NONE /HPF Urine Squamous Epithelial Cells 0-2 /HPF Urine Crystals NONE /LPF Urine Bacteria TRACE /HPF Urine Casts NONE /LPF Urine Mucus NEGATIVE /LPF Urine Culture Indicated NO My Orders Orders - KIRSTIN LORENZO MD Cbc With Automated Diff (05/23/19 23:06) Comprehensive Metabolic Panel (05/23/19 23:06) Ua Culture If Indicated (05/23/19 23:06) Ed Iv/Invasive Line Start (05/23/19 23:06) Type And Screen (05/23/19 23:06) Abdomen, Flat & Upright/Decub (05/23/19 23:15) Fecal Occult Bedside (05/23/19 23:15) Vital Signs/I&O 05/23/19 05/24/19 22:40 00:59 Temp 98.5 98.7 Pulse 87 83 Resp 18 16 B/P (MAP) 139/80 (99) 141/88 (105) Pulse Ox 96 99 O2 Delivery Room Air Room Air Blood Pressure Mean: 99 Fecal Occult: Negative Progress Progress Note : Progress Note Labs were stable from prior. X-ray suggested constipation. Stool Hemoccult was negative. Patient was advised to start MiraLAX as previously directed and to follow up with surgeon. She was given contact information for Dr. Constantino. Diagnostic Imaging Diagonstic Imaging: Xray Plain Films/CT/US/NM/MRI: abdomen, pelvis Comments Abdominal x-ray viewed by me. Report not yet available. Constipation noted. Departure Impression Primary Impression: history of rectal prolapse Additional Impressions: Lower abdominal pain Constipation Qualified Codes: K59.00 - Constipation, unspecified Disposition: HOME, SELF-CARE Condition: Stable Departure-Patient Inst. Decision time for Depature: 23:33 Referrals: MAC HANDY MD (PCP/Family) Primary Care Physician Patient Instructions: Constipation in Adults, Rectal Prolapse in Adults Add. Discharge Instructions: Consume a clear liquid diet until your constipation clears. Use MiraLAX (or generic polyethylene glycol) 2-3 times daily as previously directed by Dr. Caban. Once stools are clear, you may reduce MiraLAX to once daily. Follow-up with a surgeon such as Dr. Constantino or the surgeon of your choice as soon as possible for further evaluation of rectal prolapse. Return to the emergency room if you have any further problems or concerns or if symptoms worsen. All discharge instructions reviewed with patient and/or family. Voiced understanding. Copy Copies To 1: MAC HANDY MD Copies To 2: MUKUL CONSTANTINO JOSHUA T MD May 24, 2019 00:51
[2019-05-24 00:59] VITALS: BP 141/88
--- NOTE | 2019-05-24 08:26 | Diagnostic Imaging Report ---
INDICATION: Rectal pain, abdominal pain. COMPARISON: None. FINDINGS: KUB and upright views of the abdomen demonstrate moderate constipation without obstruction or ileus. There is no free air. Large hilar hernia is present. Osseous structures are age-appropriate. There is advanced degenerative change in the lumbar spine with scoliosis. IMPRESSION: 1. Moderate constipation without obstruction or ileus. 2. Hiatal hernia. Dictated by: Dictated on workstation # [id number]
== END 2019-05-24 01:03 | disposition home or self-care (01) ==
LOC: EDUNIT# 21:58 → ER 21:59
DX: K59.00 Constipation, unspecified (principal); J44.9 Chronic obstructive pulmonary disease, unspecified; I10 Essential (primary) hypertension; E78.00 Pure hypercholesterolemia, unspecified; G43.909 Migraine, unspecified, not intractable, without status migrainosus; K58.9 Irritable bowel syndrome, unspecified; K21.9 Gastro-esophageal reflux disease without esophagitis; M81.0 Age-related osteoporosis without current pathological fracture; M79.7 Fibromyalgia; M06.9 Rheumatoid arthritis, unspecified; E03.9 Hypothyroidism, unspecified; F41.9 Anxiety disorder, unspecified; F32.9 Major depressive disorder, single episode, unspecified; Z87.01 Personal history of pneumonia (recurrent); Z87.19 Personal history of other diseases of the digestive system; Z88.2 Allergy status to sulfonamides; Z87.891 Personal history of nicotine dependence; Z90.710 Acquired absence of both cervix and uterus
CPT/HCPCS: 36415; 74019; 80053; 81000; 85025; 86850; 86900; 86901

== ENCOUNTER → 2019-06-06 | Outpatient (CLI) | payer MEDICARE, MEDICAID ==
--- NOTE | 2019-06-09 20:18 | Diagnostic Imaging Report ---
INDICATION: Routine screening. Comparison is made with prior mammograms from 08/31/2014 and 08/16/2011. 2-D and 3-D bilateral screening mammography was performed. The current study was also evaluated with a Computer Aided Detection (CAD) system. 3-D tomosynthesis was also performed and reviewed. FINDINGS: Both breasts are heterogeneously dense, limiting the sensitivity of mammography. There are benign calcifications bilaterally. Intraparenchymal lymph node in outer left breast is stable. No dominant mass or malignant-appearing microcalcifications are seen. Axillae are unremarkable. IMPRESSION: No mammographic features suspicious for malignancy are identified. ACR BI-RADS Category 2: Benign findings. Result letter will be mailed to the patient. Note: At least 10% of breast cancer is not imaged by mammography. Dictated by: Dictated on workstation # [id number]
== END ==
LOC: RAD 09:27
PROVIDERS: ATTEND Family Medicine
DX: Z12.31 Encounter for screening mammogram for malignant neoplasm of breast (principal)
CPT/HCPCS: 77067

== ENCOUNTER 2019-06-14 13:03 | Emergency (ER) | payer MEDICARE, MEDICAID ==
[~2019-06-14] VITALS: Ht 157.5 cm; Wt 56.7 kg
--- OUTSIDE RECORDS SUMMARY | 2019-06-14 13:11 | XMS REPORT | Clinical Summary ---
Author Author [facility] Organization [facility] Address Unknown Phone Unavailable Care Team Providers Care Merchant Police Name Role Phone PCP Unavailable Allergies Not on File Medications Not on file Active Problems Not on file Social History Date Tobacco Use Types Packs/Day Years Used Never Assessed Sex Assigned at Date Recorded Not on file Industry Job Start Date Occupation Not on file Not on file Not on file Travel End Travel History Travel Start No recent travel history available. Last Filed Vital Signs Not on file Plan of Treatment Not on file Results Not on filefrom Last 3 Months
--- OUTSIDE RECORDS SUMMARY | 2019-06-14 13:11 | XMS REPORT | Clinical Summary ---
Author Author [facility] Organization [facility] Address Unknown Phone Unavailable Care Team Providers Care Gluer And Wedger Name Role Phone Reyes Gao MD Unavailable Reyes Gao MD PCP Source Comments Some departments are not documenting in the electronic medical record. If you d o not see the information that you expected, contact Release of Information in [facility] [employer] Information Management department at [phone] for further assistan ce in locating additional records.[facility] Allergies Comments Active Allergy Reactions Severity [...] loss, bilateral Active calcitonin salmon Apply 1 Orrum 0 (MIACALCIN) 200 to one unit/actuation nasal [...] Comments Vital Sign 190/102 10/31/2016 2:04 PM CREDIT PORTFOLIO ADVISOR Blood Pressure 71 10/31/2016 2:04 PM CREDIT PORTFOLIO ADVISOR Pulse - - Temperature - - Respiratory Rate - - Oxygen Saturation - - Inhaled Oxygen Concentration 75.3 kg (166 lb) 10/31/2016 2:04 PM CREDIT PORTFOLIO ADVISOR Weight 162.6 cm (5' 4") 10/31/2016 2:04 PM CREDIT PORTFOLIO ADVISOR Height 28.49 10/31/2016 2:04 PM CREDIT PORTFOLIO ADVISOR Body Mass Index Plan of Treatment Health [...] 2010- STATE Present HEALTH Advance Directives Patient Physicist [place] Explanation Type Date Recorded Advance 01/25/2016 7:16 AM Directive/DPOA
--- OUTSIDE RECORDS SUMMARY | 2019-06-14 13:11 | XMS REPORT | Encounter Summary ---
Author Author [facility] Address Unknown Phone Unavailable Care Team Providers Care Machine Silk Screen Printer Name Role Phone PCP Unavailable Encounter Details Care Team Description Date Type Department Teja Telles MD [address] [facility] [address] [place] [address] [phone] 10/04/1998 [facility] Encounter [address] [place] [address] Social History Date Tobacco Use Types Packs/Day Years Used Never Assessed Sex Assigned at Date Recorded Not on file Industry Job Start Date Occupation Not on file Not on file Not on file Travel End Travel History Travel Start No recent travel history available. documented as of this encounter Plan of Treatment Not on filedocumented as of this encounter Procedures Comments Procedure Name Priority Date/Time Associated Diagnosis URINALYSIS (INCLUDES Routine 10/04/1998 MICROSCOPIC REVIEW, IF 2:14 PM SPECIAL POLICE OFFICER INDICATED) URIC ACID Routine 10/04/1998 2:14 PM SPECIAL POLICE OFFICER THYROID STIMULATING Routine 10/04/1998 HORMONE 2:14 PM SPECIAL POLICE OFFICER ERYTHROCYTE SEDIMENTATION Routine 10/04/1998 RATE 2:14 PM SPECIAL POLICE OFFICER CREATINE KINASE Routine 10/04/1998 2:14 PM [employer] POLICE OFFICER COMPREHENSIVE METABOLIC Routine 10/04/1998 PANEL 2:14 PM SPECIAL POLICE OFFICER COMPLETE BLOOD COUNT Routine 10/04/1998 2:14 PM SPECIAL POLICE OFFICER RUBA QUALITATIVE Routine 10/04/1998 2:14 PM SPECIAL POLICE OFFICER documented in this encounter Results * Comprehensive Metabolic Panel (10/04/1998 2:14 PM SPECIAL POLICE OFFICER) Albumin 4.1 3.6 - 4.6 G/DL [facility] Aspartate 21 20 - 50 IU/L [facility] Aminotransferas e Bilirubin Total 0.5 0.2 - 1.2 MG/DL [facility] Protein Total 6.8 6.5 - 8.2 G/DL [facility] Serum Calcium 9.3 8.8 - 10.5 MG/DL [facility] Creatinine 0.9 0.5 - 1.5 MG/DL [facility] Glucose 88 65 - 110 MG/DL [facility] Alkaline 89 40 - 125 IU/L [facility] Phosphatase Sodium 140 134 - 144 MEQ/L [facility] Potassium 4.0 3.6 - 5.0 MEQ/L [facility] Chloride 104 98 - 107 MEQ/L [facility] Carbon Dioxide 11 5 - 20 MEQ/L [facility] Specimen Blood Performing Organization Address [facility] Phone Number R [address] [place] [address] [facility] * Complete Blood Count (10/04/1998 2:14 PM SPECIAL POLICE OFFICER) WBC 7.0 4.0 - 11.0 TH/UL [facility] RBC 4.06 4.00 - 5.00 MIL/UL [facility] Hemoglobin 12.7 12.0 - 15.0 G/DL [facility] Hematocrit 38 36 - 45 % [facility] MCV 92 80 - 99 FL [facility] MCH 31 27 - 34 PG [facility] MCHC 34 32 - 36 % [facility] RDW 13.5 <14.5 % [facility] Platelet Count 230 140 - 400 TH/UL [facility] Specimen Blood Performing Organization Address [facility] Phone Number R [address] [place] [address] [facility] * Urinalysis (10/04/1998 2:14 PM SPECIAL POLICE OFFICER) Appearance, ISELA MARTINEZ (A) [facility] Urine Specific >=1.030 (A) <1.030 [facility] [place], UA PH Urine 6.0 5.0 - 8.0 [facility] Hemoglobin NEGATIVE NEGATIVE [facility] Urine Ketones Urine TRACE (A) NEGATIVE [facility] Glucose Urine NEGATIVE NEGATIVE [facility] Protein Urine TRACE (A) NEGATIVE [facility] Qual Leukocyte NEGATIVE NEGATIVE [facility] Esterase Urobilinogen NEGATIVE NEGATIVE [facility] Urine Bilirubin Urine NEGATIVE NEGATIVE [facility] Specimen Urine Performing Organization Address [facility] Phone Number R [address] [place] [address] [facility] * RUBA Qualitative (10/04/1998 2:14 PM SPECIAL POLICE OFFICER) RUBA Qualitative NEGATIVE NEGATIVE [facility] Specimen Blood Performing Organization Address [facility] Phone Number SLRL [address] [place] [address] [facility] * Thyroid Stimulating Hormone (10/04/1998 2:14 PM SPECIAL POLICE OFFICER) Thyroid 0.68 0.50 - 5.00 UIU/ML [facility] Stimulating Hormone Specimen Blood Performing Organization Address [facility] Phone Number SLRL [address] [place] [address] SUNQUEST * Erythrocyte Sedimentation Rate (10/04/1998 2:14 PM SPECIAL POLICE OFFICER) Sed Rate 14 0 - 20 MM/HR [facility] Specimen Blood Performing Organization Address [facility] Phone Number SLRL [address] [place] [address] [facility] * Uric Acid (10/04/1998 2:14 PM SPECIAL POLICE OFFICER) Uric Acid 3.2 2.5 - 7.8 MG/DL [facility] Specimen Blood Performing Organization Address [facility] Phone Number SLRL [address] [place] [address] [facility] * Creatine Kinase (10/04/1998 2:14 PM SPECIAL POLICE OFFICER) Creatine Kinase 68 30 - 225 IU/L [facility] Specimen Blood Performing Organization Address [facility] Phone Number SLRL [address] [place] [address] [facility] documented in this encounter Visit Diagnoses Not on filedocumented in this encounter
--- OUTSIDE RECORDS SUMMARY | 2019-06-14 13:12 | XMS REPORT ---
Author Author MICHELLE Wilkes Organization [facility] Address Unknown Care Team Providers Care Crew Supervisor Name Role Phone MICHELLE Wilkes Unavailable PROBLEMS Type Condition ICD9-CM Code HFX56-PS Code Onset Dates Condition Status SNOMED Code Problem Generalized anxiety disorder F41.1 Jun, Active 13787105 Problem Diverticulitis of both small and large intestine without perforation or abscess without bleeding K57.52 Feb, Active 027839819 Problem 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 May, Active 209539238 Problem Hypokalemia E87.6 March, Active 35317144 Problem SOB (shortness of breath) R06.02 Nov, Active 081216758 Problem CKD (chronic kidney disease) stage 3, GFR 30-59 ml/min N18.3 Apr, Active 399164759 Problem Ulcerative colitis K51.90 Jul, Active 02157850 Problem Hyperlipidemia E78.5 Aug, Active 13683067 Problem Migraine G43.909 Aug, Active 95159752 Problem Diarrhea R19.7 Sep, Active 77717341 Problem Rheumatoid arthritis M06.9 Sep, Active 40855109 Problem Anemia D64.9 Sep, Active 826529292 Problem 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, 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 Active Problem Moderate episode of recurrent major depressive disorder F33.1 Active 837465339 Problem PVC (premature ventricular contraction) I49.3 Nov, Active 71279047 Problem Chronic pain G89.29 Aug, Active 06492966 Problem Essential hypertension I10 Active 68504203 Problem Diastolic dysfunction I51.9 Jan, Active 9318142 Problem Osteoporosis M81.0 17 Dec, 2011 Active 58175625 Problem Generalized abdominal pain R10.84 Sep, Active 503825409 Problem Stage 1 skin ulcer of sacral region L98.429 Active Problem Closed fracture of left distal tibia S82.302A 17 Jan, 2015 Active 53217959 Problem Rotator cuff tendonitis M75.80 11 Mar, 2012 Active 515627002 Problem Iron deficiency anemia secondary to inadequate dietary iron intake D50.8 Active [id number] ALLERGIES No Information ENCOUNTERS Encounter Location Date Diagnosis [address] [address] Jul, [address] [address] May, Diastolic dysfunction I51.[address] [address] May, Rectal prolapse K62.3 ; Rheumatoid arthritis M06.9 ; Diastolic dysfunction I51.9 and CKD (chronic kidney disease) stage 3, GFR 30-59 ml/min N18.[address] [address] May, [address] [address] May, [facility] [address] [place] [address] May, Inflammation, skin L08.9 and Non-intractable vomiting with nausea, unspecified vomiting type R11.[address] [address] May, [address] [address] Apr, [address] [address] Apr, Acute ethmoidal sinusitis, recurrence not specified J01.20 and Bronchitis J40 [address] [address] Apr, Sore throat J02.9 and Oral thrush B37.0 [facility] [address] [facility] [id number] [address] Apr, [address] [address] Apr, [address] [address] Apr, Rheumatoid arthritis M06.[address] [address] March, [address] [address] March, [facility] [address] [address] March, [address] [address] March, [address] [address] March, Ulcerative colitis K51.90 and 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 [address] Feb, [address] [address] Feb, [facility] [address] [id number] [address] Jan, [facility] [address] [address] Jan, Diastolic dysfunction I51.9 ; Rheumatoid arthritis M06.9 ; Ulcerative colitis K51.90 ; Essential hypertension I10 ; Moderate episode of recurrent major depressive disorder F33.1 and Iron deficiency anemia secondary to inadequate dietary iron intake D50.8 [facility] [address] [address] Jan, [address] [address] Jan, Acute bronchitis, unspecified organism J20.9 and 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 [facility] [address] [id number] [address] Dec, [address] [address] Dec, [facility] [address] [place] [address] Nov, Viral upper respiratory illness J06.9 and Nausea alone R11.0 [facility] [place] [facility] [address] [id number] [place] [address] Oct, [facility] [place] [facility] [address] [id number] [place] [address] Oct, [facility] [place] [facility] [address] [facility] [id number] [place] [address] Oct, [facility] [place] [facility] [address] [id number] [place] [address] Aug, [facility] [place] [facility] [address] [id number] [place] [address] March, [facility] [place] [facility] [address] [id number] [place] [address] 14 Feb, 2015 [facility] [place] [facility] [address] [facility] [id number] [place] [address] Feb, [facility] [place] [facility] [address] [facility] [id number] [place] [address] Jan, [facility] [place] [facility] [address] [facility] [id number] [place] [address] Jan, [facility] [place] [facility] [address] [facility] [id number], [place] [address] Oct, [facility] [place] [facility] [address] [facility] [id number] [place] [address] Oct, [facility] [place] [facility] [address] [facility] [id number], [place] [address] Oct, [facility] [place] [facility] [address] [facility] [id number] [place] [address] Sep, [facility] [place] [facility] [address] [facility] [id number] [place] [address] Sep, [facility] [place] [facility] [address] [facility] [id number], [place] [address] Sep, [facility] [place] [facility] [address] [facility] [id number], [place] [address] Sep, [facility] [place] [facility] [address] [id number] [place] [address] Sep, [facility] [place] [facility] [address] [id number] [place] [address] Aug, [facility] [place] [facility] [address] [id number] [place] [address] Aug, [facility] [place] [facility] [address] [id number] [place] [address] Jul, [facility] [place] [facility] [address] [id number] [place] [address] Jul, [facility] [place] [facility] [address] [id number] [place] [address] Jul, [facility] [place] [facility] [address] [id number] [place] [address] Jul, [facility] [place] [facility] [address] [id number] [place] [address] Jul, [facility] [place] [facility] [address] [id number] [place] [address] Jul, [facility] [place] [facility] [address] [id number] [place] [address] May, [facility] [place] [facility] [address] [id number] [place] [address] May, [facility] [place] [facility] [address] [id number] [place] [address] May, [facility] [place] [facility] [address] [id number] [place] [address] May, [facility] [place] [facility] [address] [id number] [place] [address] May, [facility] [place] [facility] [address] [facility] [id number] [place] [address] May, [facility] [place] [facility] [address] [id number] [place] [address] Apr, [facility] [place] [facility] [address] [id number] [place] [address] Apr, [facility] [place] [facility] [address] [id number] [place] [address] Apr, [facility] [place] [facility] [address] [id number] [place] [address] Apr, [facility] [place] [facility] [address] [id number] [place] [address] Apr, [facility] [place] [facility] [address] [id number] [place] [address] Apr, [facility] [place] [facility] [address] [id number] [place] [address] Apr, [facility] [place] [facility] [address] [id number] [place] [address] Apr, [facility] [place] [facility] [address] [id number] [place] [address] March, [facility] [place] [facility] [address] [id number] [place] [address] March, [facility] [place] [facility] [address] [id number] [place] [address] March, [facility] [place] [facility] [address] [id number] [place] [address] Feb, [facility] [place] [facility] [address] [id number] [place] [address] Feb, [facility] [place] [facility] [address] [id number] [place] [address] Feb, [facility] [place] [facility] [address] [id number] [place] [address] Feb, [facility] [place] [facility] [address] [id number] [place] [address] Feb, [facility] [place] [facility] [address] [id number] [place] [address] Feb, [facility] [place] [facility] [address] [id number] [place] [address] Feb, [facility] [place] [facility] [address] [id number] [place] [address] Feb, [facility] [place] [facility] [address] [id number] [place] [address] Jan, [facility] [place] [facility] [address] [id number] [place] [address] Jan, [facility] [place] [facility] [address] [id number] [place] [id number] Dec, [facility] [place] [facility] [address] [id number] [place] [address] Dec, [facility] [place] [facility] [address] [id number] [place] [address] Dec, [facility] [place] [facility] [address] [id number] [place] [address] Dec, [facility] [place] [facility] [address] [id number] [place] [address] Dec, [facility] [place] [facility] [address] [id number] [place] [address] Nov, [facility] [place] [facility] [address] [id number] [place] [address] Nov, [facility] [place] [facility] [address] [id number] [place] [address] Nov, [facility] [place] [facility] [address] [id number] [place] [address] Nov, [facility] [place] [facility] [address] [facility] [id number] [place] [address] Nov, [facility] [place] [facility] [address] [id number] [place] [address] Nov, [facility] [address] [id number] [place] [address] Oct, [facility] [address] [id number] [place] [address] Oct, [facility] [address] [id number] [place] [address] Sep, [facility] [address] [id number] [place] [address] Sep, [facility] [address] [id number] [place] [address] Sep, [facility] [address] [id number] [place] [address] Sep, [facility] [address] [id number] [place] [address] Sep, [facility] [address] [id number] [place] [address] Sep, [facility] [address] [id number] [place] [address] Aug, [facility] [address] [id number] [place] [address] Aug, [facility] [place] [facility] [address] [id number] [place] [address] May, [facility] [address] [id number] [place] [address] May, [facility] [place] [facility] [address] [id number] [place] [address] May, [facility] [place] [facility] [address] [id number] [place] [address] May, [facility] [place] [facility] [address] [id number] [place] [address] Apr, [facility] [address] [id number] [place] [address] 17 Feb, 2013 [facility] [place] [facility] [address] [id number] [place] [address] Jan, [facility] [place] [facility] [address] [id number] [place] [address] Nov, [facility] [place] [facility] [address] [id number] [place] [address] Nov, [facility] [address] [id number] [place] [address] Nov, [facility] [place] [facility] [address] [id number] [place] [address] Nov, [facility] [address] [id number] [place] [address] Oct, [facility] [address] [id number] [place] [address] 31 Oct, 2012 [facility] [place] [facility] [address] [id number] [place] [address] Oct, [facility] [address] [id number] [place] [address] Oct, [facility] [place] [facility] [address] [id number] [place] [address] Oct, [facility] [place] [facility] [address] [id number], [place] [address] 27 Oct, 2012 [facility] [place] [facility] [address] [id number] [place] [address] 13 Oct, 2012 [facility] [place] [facility] [address] [id number] [place] [address] 13 Oct, 2012 [facility] [place] [facility] [address] [id number] [place] [address] 13 Sep, 2012 [facility] [place] [facility] [address] [id number], [place] [address] Sep, [facility] [place] [facility] [address] [id number] [place] [address] Aug, [facility] [place] [facility] [address] [id number] [place] [address] Aug, [facility] [place] [facility] [address] [id number] [place] [address] 24 Jul, 2012 [facility] [place] [facility] [address] [id number] [place] [address] Jul, [facility] [place] [facility] [address] [id number] [place] [address] Jun, [facility] [place] [facility] [address] [id number] [place] [address] Jun, [facility] [place] [facility] [address] [id number] [place] [address] Jun, [facility] [place] [facility] [address] [id number] [place] [address] Jun, [facility] [place] [facility] [address] [id number] [place] [address] May, [facility] [place] [facility] [address] [id number] [place] [address] May, [facility] [place] [facility] [address] [id number] [place] [address] May, [facility] [place] [facility] [address] [id number] [place] [address] May, [facility] [place] [facility] [address] [id number] [place] [address] May, [facility] [place] [facility] [address] [id number] [place] [address] May, [facility] [place] [facility] [address] [facility] [id number] [place] [address] Apr, [facility] [place] [facility] [address] [id number] [place] [address] March, [facility] [address] [id number] [place] [address] March, [facility] [place] [facility] [address] [id number] [place] [address] Feb, [facility] [place] [facility] [address] [id number] [place] [address] Feb, [facility] [place] [facility] [address] [id number] [place] [address] Feb, [facility] [place] [facility] [address] [id number] [place] [address] Feb, [facility] [place] [facility] [address] [id number] [place] [address] Jan, [facility] [place] [facility] [address] [id number] [place] [address] Dec, [facility] [place] [facility] [address] [id number] [place] [address] Nov, [facility] [place] [facility] [address] [id number] [place] [address] Nov, [facility] [place] [facility] [address] [id number] [place] [address] Nov, [facility] [place] [facility] [address] [id number] [place] [address] Oct, [facility] [place] [facility] [address] [id number] [place] [address] Oct, [facility] [place] [facility] [address] [id number] [place] [address] 15 Sep, 2011 [facility] [place] [facility] [address] [id number] [place] [address] 15 Sep, 2011 [facility] [place] [facility] [address] [id number] [place] [address] Oct, [facility] [address] [facility] [id number] [place] [address] Sep, [facility] [address] [facility] [id number] [place] [address] Aug, [facility] [address] [facility] [id number] [place] [address] Aug, IMMUNIZATIONS No Known Immunizations SOCIAL HISTORY Never Assessed REASON FOR VISIT PLAN OF CARE VITAL SIGNS MEDICATIONS Unknown [...] cholecystectomy Surgical History heart cath - Stephenie Braunb 03/2018 Surgical History hysterectomy Surgical History hernia repair Surgical History tonsillectomy Surgical History Left shoulder joint repair 09/2018 Hospitalization History Multiple Hospital Stays Hospitalization History ER Visit Lisa 05/05/2019
[2019-06-14] MEDS ORDERED: DIVA500T15 (13:16)
--- OUTSIDE RECORDS SUMMARY | 2019-06-14 13:18 | XMS REPORT | Continuity of Care Document ---
Author Organization Unknown Address Unknown Phone Unavailable Allergies Active Description Code Type Severity Reaction Onset Reported/Identified Relationship to Patient Clinical Status Yes SULFAMETHOXAZOLE-TRIMETHOPRIM SULFAMETHOXAZOLE-TRI SEVERE Yes SULFAMETHOXAZOLE-TRIMETHOPRIM SEVERE DERMATOLOGICAL - NILS Yes SULFAMETHOXAZOLE-TRIMETHOPRIM SEVERE SEVERE Yes sulfa drug Drug Allergy 09/19/2011 Yes Sulfa (Sulfonamide Antibiotics) [id number] Drug Allergy Unknown N/A 05/17/2019 Medications Medication Packaging Start Date Stop Date [...] CAP 300 MG (NEURONTIN) Dose(s) 07/23/2017 07/30/2017 BID&0800,1999 FAMOTIDINE VIAL INJ 20 MG/2CC (PEPCID VIAL) [...] SALINE W/KCL 40MEQ IV (SALINE IV BAG W/[id number]) MLS 01/13/2018 01/20/2018 CONTINUOUSEVERY 0 Hour LACTOBACILLUS BULGARIS TAB (LACTINEX BULGARIS) tab 01/13/2018 01/23/2018 QID&0800,1200,1700,2200 METOPROLOL TAB 25 MG (LOPRESSOR) MG 01/13/2018 01/13/2018 ONCE&1215 NORMAL SALINE W/KCL 40MEQ IV (SALINE IV BAG W/[id number]) MLS 01/13/2018 01/20/2018 CONTINUOUSEVERY 0 Hour NORMAL SALINE W/KCL 40MEQ IV (SALINE IV BAG W/[id number]) MLS 01/14/2018 01/21/2018 CONTINUOUSEVERY 0 Hour MESALAMINE [...] oral tablet 5mg (Abilify) Dose(s) 02/03/2018 03/04/2018 QPM&1999 GABAPENTIN CAP 100 MG [...] TAB 1200 MG (LIALDA) Dose(s) 02/12/2018 02/18/2018 Daily&09 PANTOPRAZOLE TAB 40 MG (PROTONIX) Dose(s) 02/12/2018 [...] 295.70 P SCHIZO AFFECTIVE 07/28/2010 ESPITIA [facility] 295.70 P SCHIZO AFFECTIVE 07/28/2010 ESPITIA [facility] 295.70 P SCHIZO AFFECTIVE 07/28/2010 295.70 P SCHIZO AFFECTIVE 07/28/2010 295.70 P SCHIZO AFFECTIVE 07/28/2010 ANDER GRANT DO 295.70 P SCHIZO AFFECTIVE 07/28/2010 ESPITIA [facility] 295.70 P SCHIZO AFFECTIVE 07/28/2010 ESPITIA [facility] 295.70 P SCHIZO AFFECTIVE 07/28/2010 ESPITIA [facility] 295.70 P SCHIZO AFFECTIVE 07/28/2010 ESPITIA [facility] 295.70 P SCHIZO AFFECTIVE 07/28/2010 ESPITIA [facility] 295.70 P SCHIZO AFFECTIVE 07/28/2010 ESPITIA [facility] 295.70 P SCHIZO AFFECTIVE 07/28/2010 ESPITIASAMARA RONDON APRN 295.70 P SCHIZO AFFECTIVE 07/28/2010 MICHELLE [...] V65.42 COUNSELING - SMOKING CESSATION 11/06/2011 GRANT DOJANETA K 465.9 UPPER RESPIRATORY INFECTION 11/06/2011 GRANT [...] BROWN 465.9 UPPER RESPIRATORY INFECTION 11/06/2011 ESPITIA RADIOTELEPHONE TECHNICAL OPERATOR, SAMARA BROWN V65.42 COUNSELING - SMOKING CESSATION 11/06/2011 MICHELLE COLEY M 465.9 UPPER RESPIRATORY INFECTION 11/06/2011 MICHELLE COLEY V65.42 COUNSELING - SMOKING CESSATION 11/10/2011 466.0 BRONCHITIS, ACUTE 11/10/2011 ESPITIA RADIOTELEPHONE TECHNICAL OPERATOR, SAMARA KEVIN 466.0 BRONCHITIS, ACUTE 11/10/2011 ESPITIA RADIOTELEPHONE TECHNICAL OPERATOR, SAMARA KEVIN 466.0 BRONCHITIS, ACUTE 11/10/2011 466.0 BRONCHITIS, ACUTE 11/10/2011 466.0 BRONCHITIS, ACUTE 11/10/2011 ANDER GRANT DO K 466.0 BRONCHITIS, ACUTE 11/10/2011 ESPITIA RADIOTELEPHONE TECHNICAL OPERATOR, SAMARA KEVIN 466.0 BRONCHITIS, ACUTE 11/10/2011 ESPITIA RADIOTELEPHONE TECHNICAL OPERATOR, SAMARA KEVIN 466.0 BRONCHITIS, ACUTE 11/10/2011 ESPITIA RADIOTELEPHONE TECHNICAL OPERATOR, SAMARA KEVIN 466.0 BRONCHITIS, ACUTE 11/10/2011 ESPITIA RADIOTELEPHONE TECHNICAL OPERATOR, SAMARA KEVIN 466.0 BRONCHITIS, ACUTE 11/10/2011 ESPITIA RADIOTELEPHONE TECHNICAL OPERATOR, SAMARA KEVIN 466.0 BRONCHITIS, ACUTE 11/10/2011 ESPITIA RADIOTELEPHONE TECHNICAL OPERATOR, SAMARA KEVIN 466.0 BRONCHITIS, ACUTE 11/10/2011 ESPITIA RADIOTELEPHONE TECHNICAL OPERATOR, SAMARA KEVIN 466.0 BRONCHITIS, ACUTE 11/10/2011 MICHELLE COLEY M 466.0 BRONCHITIS, ACUTE 06/03/2013 ANDER GRANT DO K 894.0 WOUND OPEN LOWER LIMB 06/03/2013 ESPITIA RADIOTELEPHONE TECHNICAL OPERATOR, SAMARA KEVIN 894.0 WOUND OPEN LOWER LIMB 06/03/2013 ESPITIA RADIOTELEPHONE TECHNICAL OPERATOR, SAMARA KEVIN 894.0 WOUND OPEN LOWER LIMB 06/03/2013 ESPITIA RADIOTELEPHONE TECHNICAL OPERATOR, SAMARA KEVIN 894.0 WOUND OPEN LOWER LIMB 06/03/2013 ESPITIA RADIOTELEPHONE TECHNICAL OPERATOR, SAMARA KEVIN 894.0 WOUND OPEN LOWER LIMB 06/03/2013 ESPITIA RADIOTELEPHONE TECHNICAL OPERATOR, SAMARA KEVIN 894.0 WOUND OPEN LOWER LIMB 06/03/2013 ESPITIA RADIOTELEPHONE TECHNICAL OPERATOR, SAMARA KEVIN 894.0 WOUND OPEN LOWER LIMB 06/03/2013 ESPITIA RADIOTELEPHONE TECHNICAL OPERATOR, SAMARA KEVIN 894.0 WOUND OPEN LOWER LIMB 06/03/2013 MICHELLE COLEY M 894.0 WOUND OPEN LOWER LIMB 09/15/2013 ESPITIA RADIOTELEPHONE TECHNICAL OPERATOR, SAMARA BROWN 294.20 DEMENTIA UNSPECIFIED WITHOUT BEHAVIORAL DISTURBANCE 09/15/2013 NUPUR ALBERT, SAMARA BROWN 294.20 DEMENTIA UNSPECIFIED WITHOUT BEHAVIORAL DISTURBANCE 09/15/2013 NUPUR LEIVAN, SAMARA BROWN 294.20 DEMENTIA UNSPECIFIED WITHOUT BEHAVIORAL DISTURBANCE 09/15/2013 NUPUR LEIVAN, SAMARA BROWN 294.20 DEMENTIA UNSPECIFIED WITHOUT BEHAVIORAL DISTURBANCE 09/15/2013 NUPUR ALBERT, SAMARA BROWN 294.20 DEMENTIA UNSPECIFIED WITHOUT BEHAVIORAL DISTURBANCE 09/15/2013 NUPUR LEIVAN, SAMARA BROWN 294.20 DEMENTIA UNSPECIFIED WITHOUT BEHAVIORAL [...] PLAS PROTEIN MET NEC 06/26/2015 SANGEETA ESCALANTE, MUKLU E Ot 285.9 ANEMIA NOS 06/26/2015 SANGEETA [...] DEHYDRATION 01/12/2017 Ragland, Marie-Miranda W E86.0 DEHYDRATION 01/12/2017, Marie-Miranda W 558.9 OTHER AND UNSPECIFIED NONINFECTIOUS [...] Lorena W E03.9 HYPOTHYROIDISM, UNSPECIFIED 01/17/2018 [facility], Lorena W E78.5 01/17/2018 [facility], Lorena A E86.0 DEHYDRATION 01/17/2018 [facility], Lorena W E87.6 HYPOKALEMIA 01/17/2018 [facility], Lorena W F32.9 01/17/2018 [facility], Lorena W G62.9 POLYNEUROPATHY, UNSPECIFIED 01/17/2018 [facility], Lorena W I10 01/17/2018 [facility], Lorena W K52.9 NONINFECTIVE GASTROENTERITIS AND COLITIS, UNSPECIFIED 01/17/2018 [facility], Lorena W M06.9 01/17/2018 [facility], Lorena W M25.551 PAIN IN RIGHT HIP 01/17/2018 [facility], Lorena W R19.7 DIARRHEA, UNSPECIFIED 01/17/2018 [facility], Lorena W R82.99 OTHER ABNORMAL FINDINGS IN [...] R19.5 OTHER FECAL ABNORMALITIES 02/11/2018 Jac Vanessa W R19.7 DIARRHEA, UNSPECIFIED 02/12/2018 GISELA HIGGINBOTHAM [...] Wallace 787.02 NAUSEA ALONE 08/01/2018 Jean Wallace W M25.512 PAIN IN LEFT SHOULDER 08/01/2018 [...] W M19.012 PRIMARY OSTEOARTHRITIS, LEFT SHOULDER 08/16/2018 Howayek, Gianni A 844.9 SPRAIN OF UNSPECIFIED SITE OF [...] LEFT ARTIFICIAL SHOULDER AIDA 10/01/2018 DEONNA MOBLEY RADIOTELEPHONE TECHNICAL OPERATOR Ot Z98.890 OTHER SPECIFIED POSTPROCEDURAL STATES 01/23/2019 [...] Ot K21.9 GASTRO-ESOPHAGEAL REFLUX DISEASE WITHOUT 03/05/2019 LORENA LAWRENCE DO Ot K29.70 GASTRITIS, UNSPECIFIED, WITHOUT BLEEDING 03/05/2019 LORENA LAWRENCE DO Ot K44.9 DIAPHRAGMATIC HERNIA WITHOUT OBSTRUCTION 03/05/2019 LORENA LAWRENCE DO Ot M06.9 RHEUMATOID ARTHRITIS, UNSPECIFIED 03/05/2019 LORENA LAWRENCE DO Ot M81.0 AGE-RELATED OSTEOPOROSIS W/O CURRENT PAT 03/05/2019 LORENA LAWRENCE DO Ot N39.0 URINARY TRACT INFECTION, SITE NOT SPECIF 03/05/2019 LORENA LAWRENCE DO Ot R19.7 DIARRHEA, UNSPECIFIED 03/05/2019 LORENA LAWRENCE DO Ot Z87.01 PERSONAL HISTORY OF PNEUMONIA (RECURRENT [...] ABSENCE OF BOTH CERVIX AND UTER 03/05/2019 [facility] LORENA Pineda Ot Z90.89 ACQUIRED ABSENCE OF OTHER ORGANS 03/05/2019 [facility] LORENA Pineda Ot Z98.890 OTHER SPECIFIED POSTPROCEDURAL STATES 03/07/2019 MELINDA LORENA Pineda Ot E03.9 HYPOTHYROIDISM, UNSPECIFIED 03/07/2019 MELINDA LORENA Miriam Ot I10 ESSENTIAL (PRIMARY) HYPERTENSION 03/07/2019 [facility] LORENA Miriam Ot K21.9 GASTRO-ESOPHAGEAL REFLUX DISEASE WITHOUT 03/07/2019 MELINDA DO LORENA Miriam Ot K29.70 GASTRITIS, UNSPECIFIED, WITHOUT BLEEDING 03/07/2019 [facility] LORENA Miriam Ot K44.9 DIAPHRAGMATIC HERNIA WITHOUT OBSTRUCTION 03/07/2019 [facility] LORENA K Ot M06.9 RHEUMATOID ARTHRITIS, UNSPECIFIED 03/07/2019 [facility] LORENA Miriam Ot M81.0 AGE-RELATED OSTEOPOROSIS W/O CURRENT PAT 03/07/2019 MELINDA DO LORENA Miriam Ot N39.0 URINARY TRACT INFECTION, SITE NOT SPECIF 03/07/2019 [place] LORENA Miriam Ot R19.7 DIARRHEA, UNSPECIFIED 03/07/2019 MELINDA LORENA K Ot Z87.01 PERSONAL HISTORY OF PNEUMONIA (RECURRENT 03/07/2019 MELINDA LORENA Miriam Ot Z87.19 PERSONAL HISTORY OF OTHER DISEASES OF TH 03/07/2019 MELINDA LORENA Miriam Ot Z87.891 PERSONAL HISTORY OF NICOTINE DEPENDENCE 03/07/2019 MELINDA DO LORENA Miriam Ot Z88.2 ALLERGY STATUS TO SULFONAMIDES STATUS 03/07/2019 MELINDA DO LORENA Miriam Ot Z90.49 ACQUIRED ABSENCE OF OTHER SPECIFIED PART 03/07/2019 MELINDA LORENA Miriam Ot Z90.710 ACQUIRED ABSENCE OF BOTH CERVIX AND UTER 03/07/2019 MELINDA DO LORENA Miriam Ot Z90.89 ACQUIRED ABSENCE OF OTHER ORGANS 03/07/2019 MELINDA DO LORENA Miriam Ot Z98.890 OTHER SPECIFIED POSTPROCEDURAL STATES 05/02/2019 Gianni Gibson W 714.0 RHEUMATOID ARTHRITIS 05/02/2019 Gianni Gibson W M06.041 RHEUMATOID ARTHRITIS WITHOUT RHEUMATOID FACTOR, RIGHT HAND 05/05/2019 GISELA HIGGINBOTHAM W 682.6 CELLULITIS AND ABSCESS OF LEG, EXCEPT FOOT 05/05/2019 GISELA HIGGINBOTHAM W L03.116 CELLULITIS OF LEFT LOWER LIMB 05/10/2019 LANI SHIPLEY APRN W 346.90 MIGRAINE, UNSPECIFIED, WITHOUT MENTION OF INTRACTABLE MIGRAINE, WITHOUT MENTION OF STATUS MIGRAINOSUS 05/10/2019 LANI SHIPLEY APRN W G43.909 MIGRAINE, UNSP, NOT INTRACTABLE, WITHOUT [...] Ot Z87.891 PERSONAL HISTORY OF NICOTINE DEPENDENCE 05/11/2019 LORENA LAWRENCE DO Ot E03.9 HYPOTHYROIDISM, UNSPECIFIED 05/11/2019 LORENA LAWRENCE DO Ot E78.00 PURE HYPERCHOLESTEROLEMIA, UNSPECIFIED 05/11/2019 LORENA LAWRENCE DO Ot F32.9 MAJOR DEPRESSIVE DISORDER, SINGLE EPISOD 05/11/2019 LORENA LAWRENCE DO Ot F41.9 ANXIETY DISORDER, UNSPECIFIED 05/11/2019 LORENA LAWRENCE DO Ot H02.402 UNSPECIFIED PTOSIS OF LEFT EYELID 05/11/2019 LORENA LAWRENCE DO Ot H53.9 UNSPECIFIED VISUAL DISTURBANCE 05/11/2019 LORENA LAWRENCE DO Ot I10 ESSENTIAL (PRIMARY) HYPERTENSION 05/11/2019 LORENA LAWRENCE DO Ot J44.9 CHRONIC OBSTRUCTIVE PULMONARY DISEASE, U 05/11/2019 LORENA LAWRENCE DO Ot M06.9 RHEUMATOID ARTHRITIS, UNSPECIFIED 05/11/2019 LORENA LAWRENCE DO Ot M79.7 FIBROMYALGIA 05/11/2019 LORENA LAWRENCE DO Ot M81.0 AGE-RELATED OSTEOPOROSIS W/O CURRENT PAT 05/11/2019 LORENA LAWRENCE DO Ot R51 HEADACHE 05/11/2019 LORENA LAWRENCE DO Ot Z83.49 FAMILY HISTORY OF ENDO, NUTRITIONAL AND 05/11/2019 LORENA LAWRENCE DO Ot Z86.69 PERSONAL HISTORY OF DIS OF THE NERVOUS S 05/11/2019 LORENA LAWRENCE DO Ot Z87.01 PERSONAL HISTORY OF PNEUMONIA (RECURRENT 05/11/2019 MELINDALORENA Leon DO Ot Z87.891 PERSONAL HISTORY OF NICOTINE DEPENDENCE 05/11/2019 LORENA LAWRENCE DO Ot Z88.2 ALLERGY STATUS TO SULFONAMIDES STATUS 05/11/2019 TRISTIN LAWRENCE DOA Miriam Ot Z90.710 ACQUIRED ABSENCE OF BOTH CERVIX AND UTER 05/15/2019 DEONNA MOBLEY APRN Ot E03.9 HYPOTHYROIDISM, [...] Ot Z88.2 ALLERGY STATUS TO SULFONAMIDES STATUS 05/17/2019 LORENA LAWRENCE DO Ot E03.9 HYPOTHYROIDISM, UNSPECIFIED 05/17/2019 LORENA LAWRENCE DO Ot E78.00 PURE HYPERCHOLESTEROLEMIA, UNSPECIFIED 05/17/2019 LORENA LAWRENCE DO Ot F32.9 MAJOR DEPRESSIVE DISORDER, SINGLE EPISOD 05/17/2019 LORENA LAWRENCE DO Ot F41.9 ANXIETY DISORDER, UNSPECIFIED 05/17/2019 LORENA LAWRENCE DO Ot H02.402 UNSPECIFIED PTOSIS OF LEFT EYELID 05/17/2019 LORENA LAWRENCE DO Ot H53.9 UNSPECIFIED VISUAL DISTURBANCE 05/17/2019 LORENA LAWRENCE DO Miriam Ot I10 ESSENTIAL (PRIMARY) HYPERTENSION 05/17/2019 LORENA LAWRENCE DO Miriam Ot J44.9 CHRONIC OBSTRUCTIVE PULMONARY DISEASE, U 05/17/2019 LORENA LAWRENCE DO Miriam Ot M06.9 RHEUMATOID ARTHRITIS, UNSPECIFIED 05/17/2019 LORENA LAWRENCE DO Miriam Ot M79.7 FIBROMYALGIA 05/17/2019 LORENA LAWRENCE DO Miriam Ot M81.0 AGE-RELATED OSTEOPOROSIS W/O CURRENT PAT 05/17/2019 MELINDA LEDEZMA LORENA Miriam Ot R51 HEADACHE 05/17/2019 LORENA LAWRENCE DO Ot Z83.49 FAMILY HISTORY OF ENDO, NUTRITIONAL AND 05/17/2019 MELINDA LEDEZMA LORENA Miriam Ot Z86.69 PERSONAL HISTORY OF DIS OF THE NERVOUS S 05/17/2019 MELINDA LEDEZMA LORENA Miriam Ot Z87.01 PERSONAL HISTORY OF PNEUMONIA (RECURRENT 05/17/2019 MELINDA LEDEZMA LORENA Miriam Ot Z87.891 PERSONAL HISTORY OF NICOTINE DEPENDENCE 05/17/2019 MELINDA LEDEZMA LORENA Miriam Ot Z88.2 ALLERGY STATUS TO SULFONAMIDES STATUS 05/17/2019 MELINDA LEDEZMA LORENA Pineda Ot Z90.710 ACQUIRED ABSENCE OF BOTH CERVIX AND UTER 05/22/2019 KIRSTIN GARZA MD Ot E03.9 HYPOTHYROIDISM, UNSPECIFIED 05/22/2019 KIRSTIN GARZA MD Ot E78.00 PURE HYPERCHOLESTEROLEMIA, UNSPECIFIED 05/22/2019 KIRSTIN GARZA MD Ot F32.9 MAJOR DEPRESSIVE DISORDER, SINGLE EPISOD 05/22/2019 KIRSTIN GARZA MD Ot F41.9 ANXIETY DISORDER, UNSPECIFIED 05/22/2019 KIRSTIN GARZA MD Ot H65.93 UNSPECIFIED NONSUPPURATIVE OTITIS MEDIA, 05/22/2019 KIRSTIN GARZA MD Ot H83.02 LABYRINTHITIS, LEFT EAR 05/22/2019 KIRSTIN GARZA MD Ot I10 ESSENTIAL (PRIMARY) HYPERTENSION 05/22/2019 KIRSTIN GARZA MD Ot J06.9 ACUTE UPPER RESPIRATORY INFECTION, UNSPE 05/22/2019 KIRSTIN GARZA MD Ot J44.9 CHRONIC OBSTRUCTIVE PULMONARY DISEASE, U 05/22/2019 KIRSTIN GARZA MD Ot M06.9 RHEUMATOID ARTHRITIS, UNSPECIFIED 05/22/2019 GREG ESCALANTE, KIRSTIN Villeda Ot M79.7 FIBROMYALGIA 05/22/2019 GREG ESCALANTE, KIRSTIN Villeda Ot R42 DIZZINESS AND GIDDINESS 05/22/2019 GREG ESCALANTE, KIRSTIN Villeda Ot Z87.01 PERSONAL HISTORY OF PNEUMONIA (RECURRENT 05/22/2019 GREG ESCALANTE, KIRSTIN Villeda Ot Z87.19 PERSONAL HISTORY OF OTHER DISEASES OF TH 05/22/2019 GREG ESCALANTE, KIRSTIN Villeda Ot Z88.2 ALLERGY STATUS TO SULFONAMIDES STATUS 05/22/2019 GREG ESCALANTE, KIRSTIN Villeda Ot Z90.710 ACQUIRED ABSENCE OF BOTH CERVIX AND UTER 05/24/2019 KIRSTIN LORENZO MD, Ot E03.9 HYPOTHYROIDISM, UNSPECIFIED 05/24/2019 KIRSTIN LORENZO MD, Ot E78.00 PURE HYPERCHOLESTEROLEMIA, UNSPECIFIED 05/24/2019 KIRSTIN LORENZO MD, Ot F32.9 MAJOR DEPRESSIVE DISORDER, SINGLE EPISOD 05/24/2019 KIRSTIN LORENZO MD, Ot F41.9 ANXIETY DISORDER, UNSPECIFIED 05/24/2019 KIRSTIN LORENZO MD, Ot G43.909 MIGRAINE, UNSP, NOT INTRACTABLE, WITHOUT 05/24/2019 KIRSTIN LORENZO MD, Ot I10 ESSENTIAL (PRIMARY) HYPERTENSION 05/24/2019 KIRSTIN LORENZO MD, Ot J44.9 CHRONIC OBSTRUCTIVE PULMONARY DISEASE, U 05/24/2019 KIRSTIN LORENZO MD, Ot K21.9 GASTRO-ESOPHAGEAL REFLUX DISEASE WITHOUT 05/24/2019 KIRSTIN LORENZO MD, Ot K58.9 IRRITABLE BOWEL SYNDROME WITHOUT DIARRHE 05/24/2019 KIRSTIN LORENZO MD, Ot K59.00 CONSTIPATION, UNSPECIFIED 05/24/2019 KIRSTIN LORENZO MD, Ot K62.5 HEMORRHAGE OF ANUS AND RECTUM 05/24/2019 KIRSTIN LORENZO MD, Ot M06.9 RHEUMATOID ARTHRITIS, UNSPECIFIED 05/24/2019 KIRSTIN LORENZO MD, Ot M79.7 FIBROMYALGIA 05/24/2019 KIRSTIN LORENZO MD, Ot M81.0 AGE-RELATED OSTEOPOROSIS W/O CURRENT PAT 05/24/2019 MAURA ESCALANTE, KIRSTIN Arauz Ot Z87.01 PERSONAL HISTORY OF PNEUMONIA (RECURRENT 05/24/2019 MAURA ESCALANTE, KIRSTIN Arauz Ot Z87.19 PERSONAL HISTORY OF OTHER DISEASES OF 05/24/2019 KIRSTIN LORENZO MD, Ot Z87.891 PERSONAL HISTORY OF NICOTINE DEPENDENCE 05/24/2019 MAURA ESCALANTE, KIRSTIN Arauz Ot Z88.2 ALLERGY STATUS TO SULFONAMIDES STATUS 05/24/2019 KIRSTIN LORENZO MD, Ot Z90.710 ACQUIRED ABSENCE OF BOTH CERVIX AND UTER 05/28/2019 MELINDA DO LORENA K Ot E03.9 HYPOTHYROIDISM, UNSPECIFIED 05/28/2019 MELINDA DO, LORENA K Ot E78.00 PURE HYPERCHOLESTEROLEMIA, UNSPECIFIED 05/28/2019 MELINDA DO LORENA K Ot F32.9 MAJOR DEPRESSIVE DISORDER, SINGLE EPISOD 05/28/2019 MELINDA DO LORENA K Ot F41.9 ANXIETY DISORDER, UNSPECIFIED 05/28/2019 MELINDA DO LORENA K Ot I10 ESSENTIAL (PRIMARY) HYPERTENSION 05/28/2019 MELINDA DO, LORENA K Ot J44.9 CHRONIC OBSTRUCTIVE PULMONARY DISEASE, U 05/28/2019 MELINDA DO, LORENA K Ot K21.9 GASTRO-ESOPHAGEAL REFLUX DISEASE WITHOUT 05/28/2019 MELINDA DO, LORENA K Ot K44.9 DIAPHRAGMATIC HERNIA WITHOUT OBSTRUCTION 05/28/2019 MELINDA DO LORENA K Ot K58.9 IRRITABLE BOWEL SYNDROME WITHOUT DIARRHE 05/28/2019 MELINDA DO LORNEA K Ot K59.00 CONSTIPATION, UNSPECIFIED 05/28/2019 MELINDA DO LORENA K Ot M06.9 RHEUMATOID ARTHRITIS, UNSPECIFIED 05/28/2019 MELINDA DO LORENA K Ot M79.7 FIBROMYALGIA 05/28/2019 MELINDA DO LORENA K Ot M81.0 AGE-RELATED OSTEOPOROSIS W/O CURRENT PAT 05/28/2019 MELINDA DO LORENA K Ot R10.9 UNSPECIFIED ABDOMINAL PAIN 05/28/2019 MELINDA DO LORENA K Ot Z87.01 PERSONAL HISTORY OF PNEUMONIA (RECURRENT 05/28/2019 MELINDA DO LORENA K Ot Z87.19 PERSONAL HISTORY OF OTHER DISEASES OF 05/28/2019 TRISTIN LAWRENCE DOA K Ot Z87.891 PERSONAL HISTORY OF NICOTINE DEPENDENCE 05/28/2019 LORENA LAWRENCE DO Ot Z88.2 ALLERGY STATUS TO SULFONAMIDES STATUS 05/28/2019 LORENA LAWRENCE DO Ot Z90.710 ACQUIRED ABSENCE OF BOTH CERVIX AND UTER 06/10/2019 MAC MADDEN MD, Ot Z12.31 ENCNTR SCREEN MAMMOGRAM FOR MALIGNANT NE 06/12/2019 MAC MADDEN MD, Ot Z12.31 ENCNTR SCREEN MAMMOGRAM FOR MALIGNANT NE Procedures Code [place] [address] PSYCH IND W/MED CK 20 11/13/2011 98663 PSYCH IND W/MED CK 20 11/18/2012 39899 PSYCH IND W/MED CK 01/24/2013 Results Test [...] Urine-pH 5.5 5-8.5 Urine-Protein 2+ Negative Urine-Specific Emma >=1.030 1.000-1.030 Urine-WBC 2-5/HPF Urobilinogen 0.2 E.U./dL [...] 1.4 mg/dL 0.2-1.2 TP 6.2 g/dL 6.0-8.3 [facility] - 07/23/17 12:20 Anion Gap 21 6-14 BUN 15 mg/dL 5-25 Calcium 10.0 mg/dL 8.3-10.4 Chloride 99 mmol/L 95-114 CO2 30 mEq/L 22-33 Creat 1.02 mg/dL 0.50-1.50 eGFR 54 mL/min/1.73m2 >59 Glucose 117 mg/dL 70-110 Osmo 305 280-295 Potassium 3.2 mmol/L 3.5-5.3 Sodium 147 mmol/L 134-148 Sed Rate - 07/23/17 12:20 Sed Rate 2 mm/hr 9-15 [facility] - 07/24/17 07:17 Anion Gap 14 [...] 5-8.5 Urine-Protein Negative Negative Urine-RBC Rare/HPF Urine-Specific Emma 1.020 1.000-1.030 Urine-WBC 2-5/HPF Urobilinogen 1.0 E.U./dL [...] 5-8.5 Urine-Protein Trace Negative Urine-RBC Rare/HPF Urine-Specific Emma >=1.030 1.000-1.030 Urine-WBC Rare/HPF Urobilinogen 0.2 0.2-1.0 [...] 5-8.5 Urine-Protein 2+ Negative Urine-RBC 0-2/HPF Urine-Specific Emma >=1.030 1.000-1.030 Urine-WBC 2-5/HPF Urobilinogen 1.0 0.2-1.0 [...] 1.2 mg/dL 0.2-1.2 TP 5.0 g/dL 6.0-8.3 [facility] 01/14/18 06:55 Anion Gap 13 6-14 [...] 4.5 mmol/L 3.5-5.3 Sodium 146 mmol/L 134-148 [facility] 01/17/18 08:51 Anion Gap 16 6-14 BUN 4 mg/dL 5-25 Calcium 9.2 mg/dL 8.3-10.4 Chloride 105 mmol/L 95-114 CO2 26 mEq/L 22-33 Creat 0.78 mg/dL 0.50-1.50 eGFR 73 mL/min/1.73m2 >59 Glucose 102 mg/dL 70-110 Osmo 292 280-295 Potassium 3.5 mmol/L 3.5-5.3 Sodium 143 mmol/L 134-148 [facility] - 02/03/18 01:20 Anion Gap 13 [...] Negative EKG - 02/03/18 02:20 EKG Complete [facility] - 02/03/18 06:35 Anion Gap 15 [...] 32.5 g/dL 32.0-36.0 MCV 94.4 fL 80.0-97.0 [place]% 10.0 % 0.0-12.0 MPV 10.0 fL 7.4-10.0 Deanna% 53.5 % 37.0-80.0 Plt 175 K/uL 150-400 RBC 3.72 M/uL 3.60-5.00 RDW 14.0 % 11.6-14.8 WBC 3.31 K/uL 5.00-10.00 Deanna 1.77 K/uL 2.00-6.90 [place] 0.3 K/uL 0.0-0.9 Baso 0.0 K/uL 0.0-0.2 Surgical Pathology - 02/11/18 09:35 Surg Path Sent to [facility] [place] Comprehensive Metabolic Panel - 02/12/18 05:21 Albumin [...] 5-8.5 Urine-Protein Negative Negative Urine-RBC 0-2/HPF Urine-Specific Emma <=1.005 1.000-1.030 Urine-WBC Negative Urobilinogen 0.2 E.U./dL 0.2-1.0 CBC with Auto Diff - 02/22/18 11:00 Baso% 0.20 % 0.00-2.50 Eos 0.1 K/uL 0.0-0.7 Eos% 1.1 % 0.0-7.0 Hct 34.6 % 36.0-46.0 Hgb 11.1 g/dL 13.0-15.0 Lym 1.70 K/uL 0.60-3.40 Lym% 36.3 % 10.0-50.0 MCH 29.9 pg 27.0-31.0 MCHC 32.1 g/dL 32.0-36.0 MCV 93.3 fL 80.0-97.0 [place]% 15.2 % 0.0-12.0 MPV 11.0 fL 7.4-10.0 Deanna% 47.2 % 37.0-80.0 Plt 252 K/uL 150-400 RBC 3.71 M/uL 3.60-5.00 RDW 13.5 % 11.6-14.8 WBC 4.68 K/uL 5.00-10.00 Deanna 2.21 K/uL 2.00-6.90 [place] 0.7 K/uL 0.0-0.9 Baso 0.0 K/uL 0.0-0.2 [...] 08/29/18 21:00 Bacterial blood culture NG NRG Streptococcus pyogenes antigen detection - 09/28/18 18:52 [...] 7-25 CREATININE 0.80 mg/dL 0.60-0.93 eGFR NON-AFR. [place] 74 mL/min/1.73m2 > OR=60 eGFR 86 mL/min/1.73m2 [...] 10.5 fL 7.5-12.5 ABSOLUTE NEUTROPHILS 2979 cells/uL [id number] ABSOLUTE LYMPHOCYTES 2022 cells/uL [id number] ABSOLUTE MONOCYTES [...] 7-25 CREATININE 0.93 mg/dL 0.60-0.93 eGFR NON-AFR. [place] 62 mL/min/1.73m2 > OR=60 eGFR 72 mL/min/1.73m2 [...] 31.4 g/dL 32.0-36.0 MCV 91.2 fL 80.0-97.0 [place]% 9.4 % 0.0-12.0 MPV 11.4 fL 7.4-10.0 Deanna% 71.5 % 37.0-80.0 Plt 250 K/uL 150-400 RBC 4.44 M/uL 3.60-5.00 RDW 15.1 % 11.6-14.8 WBC 9.70 K/uL 5.00-10.00 Deanna 6.93 K/uL 2.00-6.90 [place] 0.9 K/uL 0.0-0.9 Baso 0.0 K/uL 0.0-0.2 [...] 5-8.5 Urine-Protein Negative Negative Urine-RBC Rare/HPF Urine-Specific Emma 1.010 1.000-1.030 Urine-WBC Rare/HPF Urobilinogen 0.2 0.2-1.0 [facility] - 05/10/19 03:10 Anion Gap 15 6-14 BUN 13 mg/dL 5-25 Calcium 9.8 mg/dL 8.3-10.4 Chloride 107 mmol/L 95-114 CO2 27 mEq/L 22-33 Creat 1.33 mg/dL 0.50-1.50 eGFR 39 mL/min/1.73m2 >59 Glucose 91 mg/dL 70-110 Osmo 299 280-295 Potassium 4.3 mmol/L 3.5-5.3 Sodium 145 mmol/L 134-148 [facility] - 05/10/19 10:16 Anion Gap 18 6-14 [...] blocking antibody assay - 05/10/19 19:44 [employer] BINDING AB 0.0 % 0.0-0.4 Complete urinalysis [...] acid measurement (moles/volume) 0.74 mmol/L 0.50- 2.00 Capillary blood glucose measurement by glucometer (mass/volume) - 05/17/19 03:55 Capillary blood glucose measurement by glucometer (mass/volume) 84 mg/dL 70-110 Complete urinalysis with reflex to culture - 05/22/19 02:18 Urine color determination YELLOW NRG Urine clarity determination CLEAR NRG Urine pH measurement by test strip 6 5-9 Specific gravity of urine by test [...] NORMAL Urine leukocyte esterase detection by dipstick 2+ NEGATIVE Automated urine sediment erythrocyte count by microscopy (number/high power field) NONE NRG Automated urine sediment leukocyte count by microscopy (number/high power field) [HPF] NRG Bacteria detection in urine sediment by light microscopy TRACE NRG Squamous epithelial cells detection in urine sediment by light microscopy RARE NRG Crystals detection in urine sediment by light microscopy NONE NRG Casts detection in urine sediment by light microscopy NONE NRG Mucus detection in urine sediment by light microscopy NEGATIVE NRG Complete urinalysis with reflex to culture NO NRG Complete blood count (CBC) with automated white blood cell (WBC) differential - 05/22/19 02:30 Blood leukocytes automated count (number/volume) 5.6 10*3/uL 4.3-11.0 Blood erythrocytes automated count (number/volume) 3.39 10*6/uL 4.35-5.85 Venous blood hemoglobin measurement (mass/volume) 9.6 g/dL 11.5-16.0 Blood hematocrit (volume fraction) 31 % 35-52 Automated erythrocyte mean corpuscular volume 91 [foz_us] 80-99 Automated erythrocyte mean corpuscular hemoglobin (mass per erythrocyte) 28 pg 25-34 Automated erythrocyte mean corpuscular hemoglobin concentration measurement (mass/volume) 31 g/dL 32-36 Automated erythrocyte distribution width ratio 16.7 % 10.0- 14.5 Automated blood platelet count (count/volume) 193 10*3/uL 130-400 Automated blood platelet mean volume measurement 10.0 [foz_us] 7.4-10.4 Automated blood neutrophils/100 leukocytes 57 % 42-75 Automated blood lymphocytes/100 leukocytes 30 % 12-44 Blood monocytes/100 leukocytes 12 % 0-12 Automated blood eosinophils/100 leukocytes 1 % 0-10 Automated blood basophils/100 leukocytes 0 % 0-10 Blood neutrophils automated count (number/volume) 3.2 10*3 1.8-7.8 Blood lymphocytes automated count (number/volume) 1.7 10*3 1.0-4.0 Blood monocytes automated count (number/volume) 0.7 10*3 0.0- 1.0 Automated eosinophil count 0.1 10*3/uL 0.0-0.3 Automated blood basophil count (count/volume) 0.0 10*3/uL 0.0-0.1 Comprehensive metabolic panel - 05/22/19 02:30 Serum or plasma sodium measurement (moles/volume) 141 mmol/L 135-145 Serum or plasma potassium measurement (moles/volume) 3.8 mmol/L 3.6-5.0 Serum or plasma chloride measurement (moles/volume) 107 mmol/L 98-107 Carbon dioxide 25 mmol/L 21-32 Serum or plasma anion gap determination (moles/volume) 9 mmol/L 5-14 Serum or plasma urea nitrogen measurement (mass/volume) 8 mg/dL 7-18 Serum or plasma creatinine measurement (mass/volume) 0.82 mg/dL 0.60-1.30 Serum or plasma urea nitrogen/creatinine mass ratio 10 NRG Serum or plasma creatinine measurement with calculation of estimated glomerular filtration rate > NRG Serum or plasma glucose measurement (mass/volume) 97 mg/dL 70-105 Serum or plasma calcium measurement (mass/volume) 8.9 mg/dL 8.5-10.1 Serum or plasma total bilirubin measurement (mass/volume) 0.4 mg/dL 0.1-1.0 Serum or plasma alkaline phosphatase measurement (enzymatic activity/volume) 105 U/L 40-136 Serum or plasma aspartate aminotransferase measurement (enzymatic activity/volume) 12 U/L 5-34 Serum or plasma alanine aminotransferase measurement (enzymatic activity/volume) 11 U/L 0-55 Serum or plasma protein measurement (mass/volume) 5.4 g/dL 6.4-8.2 Serum or plasma albumin measurement (mass/volume) 3.3 g/dL 3.2-4.5 CALCIUM CORRECTED 9.5 mg/dL 8.5-10.1 Serum or plasma amylase measurement (enzymatic activity/volume) - 05/22/19 02:30 Serum or plasma amylase measurement (enzymatic activity/volume) 49 U/L 25-125 Lipase - 05/22/19 02:30 Lipase 11 U/L 8-78 Complete blood count (CBC) with automated white blood cell (WBC) differential - 05/23/19 23:10 Blood leukocytes automated count (number/volume) 5.9 10*3/uL 4.3-11.0 Blood erythrocytes automated count (number/volume) 3.73 10*6/uL 4.35-5.85 Venous blood hemoglobin measurement (mass/volume) 10.3 g/dL 11.5-16.0 Blood hematocrit (volume fraction) 33 % 35-52 Automated erythrocyte mean corpuscular volume 89 [foz_us] 80-99 Automated erythrocyte mean corpuscular hemoglobin (mass per erythrocyte) 28 pg 25-34 Automated erythrocyte mean corpuscular hemoglobin concentration measurement (mass/volume) 31 g/dL 32-36 Automated erythrocyte distribution width ratio 16.6 % 10.0- 14.5 Automated blood platelet count (count/volume) 237 10*3/uL 130-400 Automated blood platelet mean volume measurement 9.9 [foz_us] 7.4-10.4 Automated blood neutrophils/100 leukocytes 53 % 42-75 Automated blood lymphocytes/100 leukocytes 34 % 12-44 Blood monocytes/100 leukocytes 12 % 0-12 Automated blood eosinophils/100 leukocytes 1 % 0-10 Automated blood basophils/100 leukocytes 0 % 0-10 Blood neutrophils automated count (number/volume) 3.1 10*3 1.8-7.8 Blood lymphocytes automated count (number/volume) 2.0 10*3 1.0-4.0 Blood monocytes automated count (number/volume) 0.7 10*3 0.0- 1.0 Automated eosinophil count 0.1 10*3/uL 0.0-0.3 Automated blood basophil count (count/volume) 0.0 10*3/uL 0.0-0.1 Blood type T Indirect antibody screen panel - 05/23/19 23:10 WRISTBAND NUMBER [id number] [facility] ABO+Rh group OP NRG Blood group antibody screen NEGATIVE NR Comprehensive metabolic panel - 05/23/19 23:10 Serum or plasma sodium measurement (moles/volume) 143 mmol/L 135-145 Serum or plasma potassium measurement (moles/volume) 4.0 mmol/L 3.6-5.0 Serum or plasma chloride measurement (moles/volume) 107 mmol/L 98-107 Carbon dioxide 24 mmol/L 21-32 Serum or plasma anion gap determination (moles/volume) 12 mmol/L 5-14 Serum or plasma urea nitrogen measurement (mass/volume) 7 mg/dL 7-18 Serum or plasma creatinine measurement (mass/volume) 0.87 mg/dL 0.60-1.30 Serum or plasma urea nitrogen/creatinine mass ratio 8 NRG Serum or plasma creatinine measurement with calculation of estimated glomerular filtration rate > NR Serum or plasma glucose measurement (mass/volume) 87 mg/dL 70-105 Serum or plasma calcium measurement (mass/volume) 9.5 mg/dL 8.5-10.1 Serum or plasma total bilirubin measurement (mass/volume) 0.5 mg/dL 0.1-1.0 Serum or plasma alkaline phosphatase measurement (enzymatic activity/volume) 111 U/L 40-136 Serum or plasma aspartate aminotransferase measurement (enzymatic activity/volume) 17 U/L 5-34 Serum or plasma alanine aminotransferase measurement (enzymatic activity/volume) 13 U/L 0-55 Serum or plasma protein measurement (mass/volume) 6.0 g/dL 6.4-8.2 Serum or plasma albumin measurement (mass/volume) 3.7 g/dL 3.2-4.5 CALCIUM CORRECTED 9.7 mg/dL 8.5-10.1 Complete urinalysis with reflex to culture - 05/24/19 00:04 Urine color determination YELLOW NRG Urine clarity [...] urinalysis with reflex to culture NO NRG Encounters ACCT No. Visit Date/Time Discharge Status Pt. Type Provider Facility Loc./Unit Complaint [id number] 05/22/2019 08:30:00 05/22/2019 23:59:59 CLS Out[facility] [id number] 04/17/2019 09:00:00 Document Registration [id number] 03/13/2019 14:00:00 Document Registration [id number] 01/15/2019 13:15:00 Document Registration [id number] 09/30/2014 16:41:00 09/30/2014 23:59:59 CLS Outpatient MICHELLE COLEY [id number] 07/15/2014 13:28:00 07/15/2014 23:59:59 CLS Outpatient ESPITIA [employer] [id number] 05/06/2014 09:25:00 05/06/2014 23:59:59 CLS Outpatient ESPITIA RADIOTELEPH[employer] TECHNICAL OPERATOR, SAMARA BROWN [id number] 04/06/2014 09:02:00 04/06/2014 23:59:59 CLS Outpatient ESPITIA [employer] [id number] 02/24/2014 12:55:00 02/24/2014 23:59:59 CLS Outpatient ESPITIA RADIOTELEPH[employer] TECHNICAL OPERATOR, SAMARA BROWN [id number] 02/04/2014 13:24:00 02/04/2014 23:59:59 CLS Outpatient ESPITIA [employer] [id number] 11/19/2013 10:21:00 11/19/2013 23:59:59 CLS Outpatient ESPITIA [employer] [id number] 09/15/2013 09:11:00 09/15/2013 23:59:59 CLS Outpatient ESPITIA [employer] [id number] 06/03/2013 13:58:00 06/03/2013 23:59:59 CLS Outpatient ANDER GRANT DO [id number] 11/18/2012 13:44:00 11/18/2012 23:59:59 CLS Outpatient ESPITIA [employer] [id number] 10/17/2012 14:16:00 10/17/2012 23:59:59 CLS Outpatient ESPITIA [employer] [id number] 11/10/2011 14:31:00 11/10/2011 23:59:59 CLS Outpatient [id number] 04/10/2013 11:20:00 Document Registration [id number] 01/24/2013 13:15:00 Document Registration [id number] 05/10/2019 09:55:00 05/10/2019 23:59:00 DIS Outpatient Matt Ragland [id number] 05/10/2019 01:44:00 05/10/2019 04:45:00 DIS Outpatient VIOLETTA ROOSEVELT, [facility] ER [id number] 05/05/2019 22:28:00 05/05/2019 23:16:00 [id number] 05/02/2019 12:03:00 05/02/2019 14:22:[address] [facility] ER [id number] 08/16/2018 08:57:00 08/16/2018 10:23:[address] [facility] ER [id number] 08/04/2018 00:35:00 08/04/2018 01:58:00 DIS Outpatient Jacqui [facility] ER [id number] 08/01/2018 14:00:00 08/01/2018 15:05:00 [id number] 07/17/2018 09:16:00 07/17/2018 23:59:00 DIS Outpatient ANGELICANINO [id number] 01/18/2018 00:00:00 04/10/2018 07:48:00 DIS Outpatient Chano Mac [id number] 02/22/2018 12:04:00 02/22/2018 23:59:00 DIS Outpatient GabrielMac stephens [id number] 02/12/2018 05:09:00 02/12/2018 08:24:00 DIS Outpatient GISELA HIGGINBOTHAM [facility] ER [id number] 02/11/2018 06:58:00 02/11/2018 09:30:00 DIS Outpatient Jac Vanessa [id number] 02/03/2018 00:28:00 02/04/2018 14:40:00 DIS Outpatient Herbie [facility]-S[facility]G [id number] 01/14/2018 08:15:00 01/17/2018 14:00:00 [facility] [id number] 11/17/2017 02:01:00 11/17/2017 06:53:00 [facility] [id number] 07/23/2017 11:33:00 07/25/2017 14:15:00 [facility] [id number] 01/12/2017 14:08:00 01/13/2017 13:20:00 DIS Outpatient Obie Matt [id number] 07/19/2018 10:31:21 Document Registration [id number] 01/12/2017 14:50:40 Document Registration [id number] 06/06/2019 09:27:00 06/06/2019 23:59:59 CLS Outpatient CHANO ESCALANTE, MAC Pineda [facility] RAD SCREENING [id number] 05/23/2019 21:59:00 05/24/2019 01:03:00 DIS Emergency MAURA ESCALANTE, KIRSTIN Arauz [facility] ER RECTAL BLEEDING [id number] 05/22/2019 01:38:00 05/22/2019 05:11:00 DIS Outpatient MELINDA , LORENA Miriam [facility] ER VAGINAL/RECTAL DISCOMFORT [id number] 05/17/2019 03:45:00 05/17/2019 04:49:00 DIS Outpatient KIRSTIN GARZA MD [facility] ER DIZZY,WEAKNESS [id number] 05/11/2019 13:41:00 05/11/2019 16:27:00 DIS Emergency MELINDA DO LORENA K [facility] ER MIGRAINE [id number] 05/10/2019 18:59:00 05/10/2019 22:40:00 DIS Outpatient DEONNA MOBLEY RADIOTELEPHONE TECHNICAL OPERATOR [facility] ER MIGRAINE [id number] 03/05/2019 15:35:00 03/05/2019 20:00:00 DIS Emergency MELINDA , LORENA K [facility] ER DEHYDRATED [id number] 09/28/2018 16:14:00 09/28/2018 20:06:00 DIS Emergency DEONNA MOBLEY [employer]IOTELE[employer] TECHNICAL OPERATOR [facility] ER SORE THROAT/FEVER [id number] 08/29/2018 19:24:00 08/29/2018 22:02:00 DIS Emergency KIRSTIN GARZA MD [facility] ER R LOWER LEG POSS CELLULITIS [id number] 05/09/2017 12:18:00 05/09/2017 23:59:59 CLS Outpatient RENU CHRISTENSEN MD [facility] RAD 4+ [id number]], [id number] 03/19/2017 09:00:00 03/19/2017 23:59:59 CLS Outpatient YURI SEYMOUR MD [facility] RAD DIARRHEA [id number] 06/10/2015 16:09:00 06/26/2015 11:30:00 DIS Inpatient SANGEETA ESCALANTE, MUKUL Cordova [facility] IRF LRFT TIB FIB FRX [id number] 01/10/2019 09:58:00 Document Registration
[2019-06-14 13:29] LABS: BASOPHILS % (AUTO) 0 % (0-10); EOSINOPHILS % (AUTO) 0 % (0-10); HEMATOCRIT 37 % (35-52); HEMOGLOBIN 12.3 G/DL (11.5-16.0); LYMPHOCYTES # (AUTO) 0.9 X 10^3 (1.0-4.0); LYMPHOCYTES % (AUTO) 11 % (12-44); MEAN CORPUSCULAR HEMOGLOBIN 28 PG (25-34); MEAN CORPUSCULAR HGB CONC 33 G/DL (32-36); MEAN CORPUSCULAR VOLUME 85 FL (80-99); MEAN PLATELET VOLUME 10.5 FL (7.4-10.4); MONOCYTES # (AUTO) 0.9 X 10^3 (0.0-1.0); MONOCYTES % (AUTO) 11 % (0-12); NEUTROPHILS # (AUTO) 6.6 X 10^3 (1.8-7.8); NEUTROPHILS % (AUTO) 78 % (42-75); PLATELET COUNT 210 10^3/uL (130-400); RED CELL DISTRIBUTION WIDTH 15.5 % (10.0-14.5); WHITE BLOOD COUNT 8.4 10^3/uL (4.3-11.0)
[2019-06-14 13:43] LABS: ALANINE AMINOTRANSFERASE 14 U/L (0-55); ALBUMIN 3.7 GM/DL (3.2-4.5); ALKALINE PHOSPHATASE 128 U/L (40-136); BILIRUBIN,TOTAL 0.9 MG/DL (0.1-1.0); BUN/CREATININE RATIO 18; CALCIUM 9.1 MG/DL (8.5-10.1); CARBON DIOXIDE 18 MMOL/L (21-32); CHLORIDE 109 MMOL/L (98-107); CREATININE SERUM 0.79 MG/DL (0.60-1.30); GFR ESTIMATED > 60; GLUCOSE 111 MG/DL (70-105); MAGNESIUM 1.6 MG/DL (1.8-2.4); POTASSIUM 3.1 MMOL/L (3.6-5.0); SODIUM 144 MMOL/L (135-145); TOTAL PROTEIN 6.3 GM/DL (6.4-8.2)
--- NOTE | 2019-06-14 13:48 | ED GI ---
General Chief Complaint: Abdominal/GI Problems Stated Complaint: DEHYDRATION Nursing Triage Note: Patient c/o diarrhea and dehydration. patient reports everything that she drinks goes right through her Sepsis Screen: No Definite Risk Source of Information: Patient Exam Limitations: No Limitations History of Present Illness Date Seen by Provider: Jun 14, 2019 Time Seen by Provider: 13:12 Initial Comments Here with report of acute onset of nausea, vomiting and diarrhea over the last 3 days. Denies blood in her vomit or stool. She started divalproex at about the same time for migraines. She's been unable to get anything down. Denies fever but has chills. Denies breathing problems. Overall states she feels weak. Here by EMS.m of both Crohn's disease and rheumatoid arthritis. Timing/Duration: 3-4 Days Severity/Quality: Moderate, Cramping Location: Suprapubic Radiation: RLQ, LLQ Activities at Onset: None Modifying Factors: Improves With Defecating; Worsens With Exercise; Improves With Vomiting Associated Symptoms: No Back Pain, No Chest Pain; Fatigue, Nausea/Vomiting; No Shortness of Air; Weakness Allergies and Home Medications Allergies Coded Allergies: Sulfa (Sulfonamide Antibiotics) (Verified Allergy, Unknown, 05/17/19) Home Medications Amitriptyline HCl 25 Mg Tablet, 25 MG PO HS, (Reported) Aripiprazole 15 Mg Tablet, 15 MG PO DAILY, (Reported) Cholecalciferol (Vitamin D3) 1,000 Unit Tablet, 1,000 UNIT PO DAILY, (Reported) Gabapentin 300 Mg Capsule, 300 MG PO BID, (Reported) Levothyroxine Sodium 75 Mcg Tablet, 75 MCG PO DAILY, (Reported) Meclizine HCl 25 Mg Tablet, 25 MG PO Q6H PRN for VERTIGO Prescribed by: KIRSTIN GARZA on 05/17/19 0440 Memantine HCl 5 Mg Tablet, 5 MG PO BID 5 MG PO Q AM and HS. Prescribed by: BLU QUINONES on 06/10/15 1523 Metoprolol Tartrate 50 Mg Tablet, 50 MG PO DAILY, (Reported) Ondansetron 4 Mg Tab.rapdis, 4 MG PO Q6H PRN for NAUSEA/VOMITING Prescribed by: ELIEZER LOPEZ on 06/14/19 1715 Pantoprazole Sodium 40 Mg Tablet.dr, 40 MG PO DAILY, (Reported) Prednisone 10 Mg Tab, 30 MG PO DAILY Prescribed by: REGLA LAWRENCE on 05/11/19 1441 Sucralfate 1 Gm Tablet, 1 GM PO QIDACHS Prescribed by: REGLA LAWRENCE on 03/05/19 191 Sumatriptan Succinate 100 Mg Tablet, 0.5 TAB PO PRN PRN for HEADACHE May repeat in 2 hours; Max 200 MG/24 hours. Prescribed by: BLU QUINONES on 06/10/15 155 Tramadol HCl 50 Mg Tablet, 50 MG PO BID, (Reported) Vitamin E 400 Unit Capsule, 400 UNIT PO DAILY, (Reported) Vortioxetine Hydrobromide 5 Mg Tablet, 5 MG PO DAILY, (Reported) [Biotin] , 10,000 MCG PO Evening Prescribed by: BLU QUINONES on 06/12/15 153 [Folic Acid 1MG] , 2 MG PO DAILY, (Reported) [Iron 65MG] , 65 MG PO Evening Prescribed by: BLU QUINONES on 06/12/15 153 [Nitrostat] , 0.4 MG SL UD Q5 min X3 PRN. Prescribed by: BLU QUINONES on 06/10/15 155 [Potassium] , 20 MEQ PO BID, (Reported) Patient Home Medication List Home Medication List Reviewed: Yes Review of Systems Review of Systems Constitutional: see HPI, chills; No fever; malaise, weakness EENTM: No Symptoms Reported Respiratory: No Symptoms Reported Cardiovascular: No Symptoms Reported Gastrointestinal: See HPI, Abdominal Pain; Denies Blood Streaked Stools; Diar mari, Nausea, Poor Appetite; Denies Rectal Bleeding; Vomiting Genitourinary: No Symptoms Reported Musculoskeletal: no symptoms reported Skin: no symptoms reported Psychiatric/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: See HPI All Other Systems Reviewed Negative Unless Noted: Yes Past Lucuhxx-Ftjajt-Swqdgx Hx Past Med/Social Hx: Reviewed Nursing Past Med/Soc Hx Patient Social History Alcohol Use: Denies Use Recreational Drug Use: No Type Used: Cigarettes Former Smoker, Quit: May 13, 2009 2nd Hand Smoke Exposure: No Recent Foreign Travel: No Contact w/Someone Who Travel: No Recent Infectious Disease Expo: No Recent Hopitalizations: No Immunizations Up To Date Tetanus Booster (TDap): Unknown PED Vaccines UTD: Yes Date of Pneumonia Vaccine: Nov 05, 2012 Seasonal Allergies Seasonal Allergies: Yes Past Medical History Surgeries: Yes Abdominal, Adenoidectomy, Bowel Surgery, Gallbladder, Hysterectomy, Oophorectomy, Rectal, Tonsillectomy Respiratory: Yes Pneumonia, COPD Cardiac: Yes (PSVT) High Cholesterol, Hypertension 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: Yes 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, 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 Genitourinary: No Gastrointestinal: Yes Chronic Constipation, Chronic Diarrhea, Hiatal Hernia, Gall Bladder Disease Musculoskeletal: Yes Osteoporosis, Arthritis, Fibromyalgia, Rheumatoid Arthritis, Chronic Back Pain Endocrine: Yes Hypothyroidsim HEENT: Yes Glaucoma Cancer: Yes Cervical Did You Recieve Any Treatments: Yes What Type of Treatment Did You: Surgical Intervention Psychosocial: Yes (EXTENSIVE PSYCH ISSUES) Anxiety, Bipolar, Depression Integumentary: No Blood Disorders: No Family Medical History Reviewed Nursing Family Hx No Pertinent Family Hx Physical Exam Vital Signs Vital Signs - First Documented 06/14/19 13:11 Temp 98.1 Pulse 100 Resp 13 B/P (MAP) 128/78 (95) Pulse Ox 98 O2 Delivery Room Air Capillary Refill : Less Than 3 Seconds Height/Weight/BMI Height: 5'2.00" Weight: 125lbs. 0oz. 56.346574tg; 26.57 BMI Method:Stated General Appearance: WD/WN, mild distress HEENT: PERRL/EOMI, other (mucous membranes dry) Neck: full range of motion, supple Respiratory: lungs clear, normal breath sounds Cardiovascular: regular rate, rhythm, no murmur Gastrointestinal: soft, tenderness (lower abdominal mild tenderness without rebound or guarding) Extremities: non-tender, normal inspection Back: normal inspection, no CVA tenderness, no vertebral tenderness Neurologic/Psychiatric: alert, oriented x 3 Skin: normal color, warm/dry Progress/Results/Core Measures Results/Orders Lab Results Laboratory Tests Test 06/14/19 13:05 06/14/19 15:15 Range/Units White Blood Count 8.4 4.3-11.0 10^3/uL Red Blood Count 4.42 4.35-5.85 10^6/uL Hemoglobin 12.3 11.5-16.0 G/DL Hematocrit 37 35-52 % Mean Corpuscular Volume 85 80-99 FL Mean Corpuscular Hemoglobin 28 25-34 PG Mean Corpuscular Hemoglobin Concent 33 32-36 G/DL Red Cell Distribution Width 15.5 H 10.0-14.5 % Platelet Count 210 130-400 10^3/uL Mean Platelet Volume 10.5 H 7.4-10.4 FL Neutrophils (%) (Auto) 78 H 42-75 % Lymphocytes (%) (Auto) 11 L 12-44 % Monocytes (%) (Auto) 11 0-12 % Eosinophils (%) (Auto) 0 0-10 % Basophils (%) (Auto) 0 0-10 % Neutrophils # (Auto) 6.6 1.8-7.8 X 10^3 Lymphocytes # (Auto) 0.9 L 1.0-4.0 X 10^3 Monocytes # (Auto) 0.9 0.0-1.0 X 10^3 Eosinophils # (Auto) 0.0 0.0-0.3 10^3/uL Basophils # (Auto) 0.0 0.0-0.1 10^3/uL Sodium Level 144 135-145 MMOL/L Potassium Level 3.1 L 3.6-5.0 MMOL/L Chloride Level 109 H 98-107 MMOL/L Carbon Dioxide Level 18 L 21-32 MMOL/L Anion Gap 17 H 5-14 MMOL/L Blood Urea Nitrogen 14 7-18 MG/DL Creatinine 0.79 0.60-1.30 MG/DL Estimat Glomerular Filtration Rate > 60 BUN/Creatinine Ratio 18 Glucose Level 111 H 70-105 MG/DL Calcium Level 9.1 8.5-10.1 MG/DL Corrected Calcium 9.3 8.5-10.1 MG/DL Magnesium Level 1.6 L 1.8-2.4 MG/DL Total Bilirubin 0.9 0.1-1.0 MG/DL Aspartate Amino Transf (AST/SGOT) 11 5-34 U/L Alanine Aminotransferase (ALT/SGPT) 14 0-55 U/L Alkaline Phosphatase 128 40-136 U/L C-Reactive Protein High Sensitivity 2.27 H 0.00-0.50 MG/DL Total Protein 6.3 L 6.4-8.2 GM/DL Albumin 3.7 3.2-4.5 GM/DL Valproic Acid (Depakene) Level 14.9 L 50.0-100.0 UG/ML Urine Color YELLOW Urine Clarity CLEAR Urine pH 6.5 5-9 Urine Specific [place] 1.015 L 1.016-1.022 Urine Protein 1+ H NEGATIVE Urine Glucose (UA) NEGATIVE NEGATIVE Urine Ketones 4+ H NEGATIVE Urine Nitrite NEGATIVE NEGATIVE Urine Bilirubin NEGATIVE NEGATIVE Urine Urobilinogen NORMAL NORMAL MG/DL Urine Leukocyte Esterase 1+ H NEGATIVE Urine RBC (Auto) 2+ H NEGATIVE Urine RBC 0-2 /HPF Urine WBC 0-2 /HPF Urine Squamous Epithelial Cells RARE /HPF Urine Crystals NONE /LPF Urine Bacteria NEGATIVE /HPF Urine Casts NONE /LPF Urine Mucus NEGATIVE /LPF Urine Culture Indicated NO My Orders Orders - ELIEZER LOPEZ MD Cbc With Automated Diff (06/14/19 13:19) Comprehensive Metabolic Panel (06/14/19 13:19) Hs C Reactive Protein (06/14/19 13:19) Magnesium (06/14/19 13:19) Ua Culture If Indicated (06/14/19 13:19) Valproic Acid (06/14/19 13:19) Stool Culture (06/14/19 13:19) Ekg Tracing (06/14/19 13:21) Ed Iv/Invasive Line Start (06/14/19 14:00) Lactated Ringers (Lr 1000 Ml Iv Solution (06/14/19 14:00) Ed Iv/Invasive Line Start (06/14/19 15:09) Ns Iv 500 Ml (Sodium Chloride 0.9%) (06/14/19 15:09) Ondansetron Injection (Zofran Injectio (06/14/19 16:15) Medications Given in ED Current Medications Medications Dose Ordered Sig/Mana Route Start Time Stop Time Status Last Admin Dose Admin Lactated Ringer's 1,000 ml @ 0 mls/hr Q0M ONCE IV 06/14/19 14:00 06/14/19 14:01 DC 06/14/19 14:12 0 MLS/HR Ondansetron HCl 4 mg ONCE ONCE IVP 06/14/19 16:15 06/14/19 16:16 DC 06/14/19 16:29 4 MG Sodium Chloride 500 ml @ 0 mls/hr Q0M ONCE IV 06/14/19 15:09 06/14/19 15:11 DC 06/14/19 15:21 0 MLS/HR Vital Signs/I&O 06/14/19 13:11 Temp 98.1 Pulse 100 Resp 13 B/P (MAP) 128/78 (95) Pulse Ox 98 O2 Delivery Room Air Blood Pressure Mean: 95 Progress Progress Note : Progress Note Seen and evaluated. IV, labs, EKG and UA ordered. Normal saline 1 L bolus initiated by EMS will continue. Monitor patient. Repeat bolus with LR 1 L bolus. Monitor patient. Overall doing better. Labs reviewed and no significant findings currently and patient feels better. By mouth challenge with fluids given and she tolerated. Discuss with her that we currently do not have admitting criteria but it appears safe that she could go home and patient agrees. We will prescribe ondansetron as outpatient. I did tell her to stop the divalproex as I believe this may be part of her problem since the vomiting and diarrhea started after she started that medicine. Discharged home with return precautions. Patient verbalize understanding instructions and agreement with plan. Initial ECG Impression Date: Jun 14, 2019 Initial ECG Impression Time: 13:32 Initial ECG Rate: 96 Initial ECG Rhythm: Normal Sinus Comment Sinus rhythm with right bundle branch block. No evidence of ST elevation [place]. Change from previous which was left anterior fascicular block on 12 September 2010. Interpreted by me. Departure Impression Primary Impression: Nausea and vomiting Qualified Codes: R11.2 - Nausea with vomiting, unspecified Additional Impressions: Diarrhea Qualified Codes: R19.7 - Diarrhea, unspecified Medication reaction Qualified Codes: T50.905A - Adverse effect of unspecified drugs, medicaments and biological substances, initial encounter Disposition: 01 HOME, SELF-CARE Condition: Improved Departure-Patient Inst. Decision time for Depature: 17:17 Referrals: MAC HANDY MD (PCP/Family) Primary Care Physician Patient Instructions: Diarrhea in Adolescents and Adults, Nausea and Vomiting, Adult (DC) Add. Discharge Instructions: All discharge instructions reviewed with patient and/or family. Voiced understanding. Stop the divalproex medication that you just started for the migraines. Discuss the side effects with your doctor as I do believe this may be part of her problem. Clear liquid or light diet for the next 24 hours and then advance as tolerated. Follow-up with your doctor early this week for recheck and further evaluation. Return for worse pain, fever, vomiting, weakness, breathing problems or other concerns as needed. Scripts Ondansetron (Ondansetron Odt) 4 Mg Tab.rapdis 4 MG PO Q6H PRN for NAUSEA/VOMITING, #8 TAB 0 Refills Prov: ELIEZER LOPEZ MD 06/14/19 Copy Copies To 1: MAC HANDY MD, TIMOTHY D MD Jun 14, 2019 13:48
[2019-06-14 13:49] LABS: VALPROIC ACID 14.9 UG/ML (50.0-100.0)
[2019-06-14] MEDS ORDERED: LACTATED RINGERS 1,000 ML IV ONE (14:00)
[2019-06-14] MEDS ORDERED: NS IV 500 ML 500 ML IV ONE (15:09)
[2019-06-14 15:32] LABS: BILIRUBIN,URINE NEGATIVE (NEGATIVE); CLARITY,URINE CLEAR; COLOR,URINE YELLOW; GLUCOSE, URINE (UA) NEGATIVE (NEGATIVE); KETONES,URINE 4+ (NEGATIVE); LEUKOCYTE ESTERASE ,URINE 1+ (NEGATIVE); NITRITE,URINE NEGATIVE (NEGATIVE); PH,URINE 6.5 (5-9); PROTEIN,URINE 1+ (NEGATIVE); UROBILINOGEN,URINE NORMAL (NORMAL)
[2019-06-14 15:43] LABS: BACTERIA,URINE NEGATIVE /HPF; RBC,URINE 0-2 /HPF; SQUAMOUS EPITHELIAL CELL,UR RARE /HPF; WBC,URINE 0-2 /HPF
[2019-06-14] MEDS ORDERED: ONDANSETRON 4 MG/2 ML (SDV) Z0FRAN IVP ONE (16:15)
[2019-06-14] MEDS ORDERED: ONDA4TAB11 PO ×2 (17:15→17:16)
[2019-06-14] MEDS ORDERED: RX-ONDANSETRON 4 MG ODT (ZOFRAN) PPK #4 PO STA (17:22)
[2019-06-14 17:30] VITALS: BP 127/81
--- NOTE | 2019-06-14 17:30 | NUR ---
Patient sent home with a take home pack of zofran as she has nobody to come get here and the Pharmacy closes at 6pm. Patient is taking the cab home.
== END 2019-06-14 17:31 | disposition home or self-care (01) ==
LOC: EDUNIT# 13:03 → ER 13:04
DX: R11.2 Nausea with vomiting, unspecified (principal); R19.7 Diarrhea, unspecified; T42.6X5A Adverse effect of other antiepileptic and sedative-hypnotic drugs, initial encounter; J44.9 Chronic obstructive pulmonary disease, unspecified; I10 Essential (primary) hypertension; E78.00 Pure hypercholesterolemia, unspecified; G62.9 Polyneuropathy, unspecified; M06.9 Rheumatoid arthritis, unspecified; M79.7 Fibromyalgia; M81.0 Age-related osteoporosis without current pathological fracture; E03.9 Hypothyroidism, unspecified; F31.9 Bipolar disorder, unspecified; F41.9 Anxiety disorder, unspecified; Z85.41 Personal history of malignant neoplasm of cervix uteri; Z87.19 Personal history of other diseases of the digestive system; Z87.01 Personal history of pneumonia (recurrent); Z88.2 Allergy status to sulfonamides; Z87.891 Personal history of nicotine dependence; Z90.710 Acquired absence of both cervix and uterus; Z90.89 Acquired absence of other organs
CPT/HCPCS: 36415; 80053; 80164; 81000; 83735; 85025; 86141; 93005

== ENCOUNTER → 2019-06-25 | Outpatient (CLI) | payer MEDICARE, MEDICAID ==
[~2019-06-25] MED LIST changes: +DIVA500T15; +ONDA4TAB11 PO
== END ==
LOC: LAB 08:31
PROVIDERS: ATTEND Psychiatry & Neurology Neurology
DX: G43.909 Migraine, unspecified, not intractable, without status migrainosus (principal)
CPT/HCPCS: 36415; 80164

== ENCOUNTER 2019-10-22 19:21 | Emergency (ER) | payer MEDICARE, MEDICAID ==
[~2019-10-22] VITALS: Ht 157.4 cm; Wt 58.1 kg
--- NOTE | 2019-10-22 19:34 | ED Fall/Injury ---
General Chief Complaint: Trauma-Non Activation Stated Complaint: FALL,SHOULDER PAIN Nursing Triage Note: neck pain, bilat knee pain, L shoulder pain Source: patient Exam Limitations: no limitations History of Present Illness Date Seen by Provider: Oct 22, 2019 Time Seen by Provider: 19:32 Initial Comments To ER per EMS from home with reports of a fall and subsequent pain. She went to close her front door, turned around and upon turning she fell. She did hit her head and now has posterior headache and neck pain. She has pain in her left shoulder which has been previously replaced. Pain to the anterior aspect of both knees. No loss of consciousness. She does have nausea but no vomiting. She does have a headache. No anticoagulation use. Location Injury Occurred: home Occurred: just prior to arrival Severity: moderate Injuries/Pain Location: head, neck, upper extremity Context: unknown Loss of Consciousness: no loss of consciousness Associated Symptoms (Fall): No Confusion; Headache, Neck Pain Allergies and Home Medications Allergies Coded Allergies: Sulfa (Sulfonamide Antibiotics) (Verified Allergy, Unknown, 05/17/19) Home Medications Amitriptyline HCl 25 Mg Tablet, 25 MG PO HS, (Reported) Aripiprazole 15 Mg Tablet, 15 MG PO DAILY, (Reported) Cholecalciferol (Vitamin D3) 1,000 Unit Tablet, 1,000 UNIT PO DAILY, (Reported) Gabapentin 300 Mg Capsule, 300 MG PO BID, (Reported) Levothyroxine Sodium 75 Mcg Tablet, 75 MCG PO DAILY, (Reported) Meclizine HCl 25 Mg Tablet, 25 MG PO Q6H PRN for VERTIGO Prescribed by: KIRSTIN GARZA on 05/17/19 0440 Memantine HCl 5 Mg Tablet, 5 MG PO BID 5 MG PO Q AM and HS. Prescribed by: BLU QUINONES on 06/10/15 1523 Metoprolol Tartrate 50 Mg Tablet, 50 MG PO DAILY, (Reported) Ondansetron 4 Mg Tab.rapdis, 4 MG PO Q6H PRN for NAUSEA/VOMITING Prescribed by: ELIEZER LOPEZ on 06/14/19 1715 Pantoprazole Sodium 40 Mg Tablet.dr, 40 MG PO DAILY, (Reported) Prednisone 10 Mg Tab, 30 MG PO DAILY Prescribed by: REGLA LAWRENCE on 05/11/19 1441 Sucralfate 1 Gm Tablet, 1 GM PO QIDACHS Prescribed by: REGLA LAWRENCE on 03/05/191913 Sumatriptan Succinate 100 Mg Tablet, 0.5 TAB PO PRN PRN for HEADACHE May repeat in 2 hours; Max 200 MG/24 hours. Prescribed by: BLU QUINONES on 06/10/15 155 Tramadol HCl 50 Mg Tablet, 50 MG PO BID, (Reported) Vitamin E 400 Unit Capsule, 400 UNIT PO DAILY, (Reported) Vortioxetine Hydrobromide 5 Mg Tablet, 5 MG PO DAILY, (Reported) [Biotin] , 10,000 MCG PO Evening Prescribed by: BLU QUINONES on 06/12/15 153 [Folic Acid 1MG] , 2 MG PO DAILY, (Reported) [Iron 65MG] , 65 MG PO Evening Prescribed by: BLU QUINONES on 06/12/15 153 [Nitrostat] , 0.4 MG SL UD Q5 min X3 PRN. Prescribed by: BLU QUINONES on 06/10/15 155 [Potassium] , 20 MEQ PO BID, (Reported) Patient Home Medication List Home Medication List Reviewed: Yes Review of Systems Review of Systems Constitutional: see HPI Eyes: No Symptoms Reported Ears, Nose, Mouth, Throat: no symptoms reported Respiratory: no symptoms reported Cardiovascular: no symptoms reported Genitourinary: no symptoms reported Musculoskeletal: no symptoms reported Skin: no symptoms reported Psychiatric/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: No Symptoms Reported Past Dczjbnm-Rltoee-Amhsho Hx Patient Social History Alcohol Use: Denies Use Recreational Drug Use: No Smoking Status: Former Smoker Type Used: Cigarettes Former Smoker, Quit: May 13, 2009 2nd Hand Smoke Exposure: No Recent Foreign Travel: No Contact w/Someone Who Travel: No Recent Infectious Disease Expo: No Recent Hopitalizations: No Immunizations Up To Date Tetanus Booster (TDap): Unknown PED Vaccines UTD: Yes Date of Pneumonia Vaccine: Nov 05, 2012 Seasonal Allergies Seasonal Allergies: Yes Past Medical History Surgeries: Yes Abdominal, Adenoidectomy, Bowel Surgery, Gallbladder, Hysterectomy, Oophorectomy, Rectal, Tonsillectomy Respiratory: Yes Pneumonia, COPD Cardiac: Yes (PSVT) High Cholesterol, Hypertension 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: Yes 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, 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 Genitourinary: No Gastrointestinal: Yes Chronic Constipation, Chronic Diarrhea, Hiatal Hernia, Gall Bladder Disease Musculoskeletal: Yes Osteoporosis, Arthritis, Fibromyalgia, Rheumatoid Arthritis, Chronic Back Pain Endocrine: Yes Hypothyroidsim HEENT: Yes Glaucoma Cancer: Yes Cervical Did You Recieve Any Treatments: Yes What Type of Treatment Did You: Surgical Intervention Psychosocial: Yes (EXTENSIVE PSYCH ISSUES) Anxiety, Bipolar, Depression Integumentary: No Blood Disorders: No Family Medical History No Pertinent Family Hx Physical Exam Vital Signs Vital Signs - First Documented 10/22/19 19:22 Temp 36.9 Pulse 67 Resp 18 B/P (MAP) 112/88 (96) Pulse Ox 94 Capillary Refill : Less Than 3 Seconds Height, Weight, BMI Height: 5'2.00" Weight: 125lbs. 0oz. [id number]; 23.00 BMI Method:Stated General Appearance: WD/WN, no apparent distress HEENT: PERRL/EOMI, normal ENT inspection Respiratory: no respiratory distress, no accessory muscle use Gastrointestinal: normal bowel sounds, soft Extremities: normal range of motion, non-tender, other (erythema anterior aspect both knees without deformity or ecchymosis. Left shoulder is normal in appearance.) Neurologic/Psychiatric: alert, normal mood/affect, oriented x 3 Skin: normal color, warm/dry Becki Coma Score Best Eye Response: (4) Open Spontaneously Best Verbal Response: (5) Oriented Best Motor Response: (6) Obeys Commands Becki Total: 15 Progress/Results/Core Measures Results/Orders My Orders Orders - DEONNA MOBLEY APRN Ct Head/Cervical Spine Wo (10/22/19 19:26) Shoulder, Left, 3 Views (10/22/19 19:26) Knee, 2 Views, Bilateral (10/22/19 19:26) Vital Signs/I&O 10/22/19 19:22 Temp 36.9 Pulse 67 Resp 18 B/P (MAP) 112/88 (96) Pulse Ox 94 Blood Pressure Mean: 96 Departure Communication (Admissions) Family Conversation Rigid cervical collar removed at 2006 NAME: YOVANY BLISS [facility] REC#: [id number] PT STATUS: REG ER : 1945 PHYSICIAN: DEONNA MOBLEY APRN ADMIT DATE: 10/22/19/ER Signed Date of Exam:10/22/19 CT HEAD/CERVICAL SPINE WO PROCEDURE: CT head and CT cervical spine without contrast. TECHNIQUE: Multiple contiguous axial images were obtained through the brain and cervical spine without the use of intravenous contrast. Sagittal and coronal reformations through the cervical spine were then performed. Auto Exposure Controls were utilized during the CT exam to meet ALARA standards for radiation dose reduction. INDICATION: 74-year-old female injured and fall presents with headache and neck pain. COMPARISONS: 05/10/2019. CT head without contrast: FINDINGS: Midline structures are not displaced. Lateral, 3rd and 4th ventricles are normal in size, shape and anatomic position. There is generalized atrophy with involutional changes. Agarwal-white differentiation is well maintained and there is no sulcal effacement. There are no abnormal extra-axial fluid collections or hemorrhage. Basilar cisterns appear normal. Sinuses, orbits and mastoid air cells are unremarkable. There is incidental preston bullosa left nasal turbinate. Orbits and mastoid air cells are normal. Bone windows show no calvarial changes. IMPRESSION: Senescent brain with involutional changes and generalized atrophy with some background chronic microvascular ischemic change otherwise unremarkable nonenhanced CT brain. CT cervical spine with reconstructions: FINDINGS: Axial images in sagittal and coronal reconstructions of the cervical spine show moderate cervical spondylosis. There is multilevel hypertrophic facet changes. There is grade 1 anterolisthesis of C4 on C5 and mild grade 1 retrolisthesis of C5 on C6. These are felt to be degenerative in nature. Vertebral body heights appear well maintained. Prevertebral soft tissue as well as a relationship of the dens to lateral mass of C1 is normal. There is no evidence of acute fracture or acute subluxation seen. Lung apices are clear. Superior mediastinum is unremarkable. Parapharyngeal and paraspinous soft tissues are normal. There is some calcific atherosclerosis of the carotid bifurcations. IMPRESSION: Moderate cervical spondylosis with some grade 1 anterolisthesis of C4 on C5 and mild retrolisthesis of C5 on C6 which are felt to be degenerative in nature. There is no evidence of acute fracture or acute subluxation seen. Dictated by: Dictated on workstation # [id number] Dict: 10/22/191951 Trans: 10/22/192000 [id number] Interpreted by: BARON SMITH MD Electronically signed by: BARON SMITH MD 10/22/192000 Impression Primary Impression: Head injury Additional Impression: Cervical myofascial strain Disposition: 01 HOME, SELF-CARE Condition: Improved Departure-Patient Inst. Decision time for Depature: 20:07 Referrals: MAC HANDY MD (PCP/Family) Primary Care Physician Patient Instructions: Cervical Muscle Strain (DC) Add. Discharge Instructions: 1. Tylenol and ibuprofen for pain control 2. Return to ER for any concerns 3. Follow-up with your doctor later this week for recheck. All discharge instructions reviewed with patient and/or family. Voiced understanding. DEONNA MOBLEY ADMINISTRATION ASSISTANT Oct 22, 2019 19:34
--- NOTE | 2019-10-22 20:01 | Diagnostic Imaging Report ---
PROCEDURE: CT head and CT cervical spine without contrast. TECHNIQUE: Multiple contiguous axial images were obtained through the brain and cervical spine without the use of intravenous contrast. Sagittal and coronal reformations through the cervical spine were then performed. Auto Exposure Controls were utilized during the CT exam to meet ALARA standards for radiation dose reduction. INDICATION: 74-year-old female injured and fall presents with headache and neck pain. COMPARISONS: 05/10/2019. CT head without contrast: FINDINGS: Midline structures are not displaced. Lateral, 3rd and 4th ventricles are normal in size, shape and anatomic position. There is generalized atrophy with involutional changes. Agarwal-white differentiation is well maintained and there is no sulcal effacement. There are no abnormal extra-axial fluid collections or hemorrhage. Basilar cisterns appear normal. Sinuses, orbits and mastoid air cells are unremarkable. There is incidental prestno bullosa left nasal turbinate. Orbits and mastoid air cells are normal. Bone windows show no calvarial changes. IMPRESSION: Senescent brain with involutional changes and generalized atrophy with some background chronic microvascular ischemic change otherwise unremarkable nonenhanced CT brain. CT cervical spine with reconstructions: FINDINGS: Axial images in sagittal and coronal reconstructions of the cervical spine show moderate cervical spondylosis. There is multilevel hypertrophic facet changes. There is grade 1 anterolisthesis of C4 on C5 and mild grade 1 retrolisthesis of C5 on C6. These are felt to be degenerative in nature. Vertebral body heights appear well maintained. Prevertebral soft tissue as well as a relationship of the dens to lateral mass of C1 is normal. There is no evidence of acute fracture or acute subluxation seen. Lung apices are clear. Superior mediastinum is unremarkable. Parapharyngeal and paraspinous soft tissues are normal. There is some calcific atherosclerosis of the carotid bifurcations. IMPRESSION: Moderate cervical spondylosis with some grade 1 anterolisthesis of C4 on C5 and mild retrolisthesis of C5 on C6 which are felt to be degenerative in nature. There is no evidence of acute fracture or acute subluxation seen. Dictated by: Dictated on workstation # [id number]
--- NOTE | 2019-10-22 20:07 | NUR ---
C- collar removed at this time by Jonathon De Souza.
--- NOTE | 2019-10-22 20:20 | Diagnostic Imaging Report ---
INDICATION: Fall with left shoulder pain. TECHNIQUE: 3 views of the left shoulder. 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 No hardware loosening or fracture is seen. No acute osseous abnormality is seen. There is chronic deformity of the distal left clavicle. Left-sided Port-A-Cath is noted. IMPRESSION: 1. Left shoulder arthroplasty without hardware complication or acute osseous abnormality seen. Dictated by: Dictated on workstation # [id number]
--- NOTE | 2019-10-22 20:20 | Diagnostic Imaging Report ---
HISTORY: Fall with bilateral knee pain TECHNIQUE: 2 views of the right and left knees COMPARISON: None FINDINGS: There is diffuse osteopenia. There are mild degenerative changes in the knees bilaterally. No joint effusion is seen bilaterally. There is intramedullary jorge a in the left tibia. No acute fracture is seen. IMPRESSION: 1. Mild degenerative changes in the bilateral knees with no acute osseous abnormality seen. Dictated by: Dictated on workstation # [id number]
[2019-10-22 21:00] VITALS: BP 140/70
== END 2019-10-22 21:00 | disposition home or self-care (01) ==
LOC: EDUNIT# 19:21 → ER 19:22
DX: S09.90XA Unspecified injury of head, initial encounter (principal); S16.1XXA Strain of muscle, fascia and tendon at neck level, initial encounter; J44.9 Chronic obstructive pulmonary disease, unspecified; I10 Essential (primary) hypertension; E78.00 Pure hypercholesterolemia, unspecified; F41.9 Anxiety disorder, unspecified; F31.9 Bipolar disorder, unspecified; G62.9 Polyneuropathy, unspecified; M79.7 Fibromyalgia; M06.9 Rheumatoid arthritis, unspecified; E03.9 Hypothyroidism, unspecified; Z85.41 Personal history of malignant neoplasm of cervix uteri; Z88.2 Allergy status to sulfonamides; Z79.52 Long term (current) use of systemic steroids; Z87.891 Personal history of nicotine dependence; Z90.89 Acquired absence of other organs; Z90.710 Acquired absence of both cervix and uterus; W01.10XA Fall on same level from slipping, tripping and stumbling with subsequent striking against unspecified object, initial encounter; Y92.009 Unspecified place in unspecified non-institutional (private) residence as the place of occurrence of the external cause
CPT/HCPCS: 70450; 72125; 73030

== ENCOUNTER 2019-12-24 14:20 | Emergency (ER) | payer MEDICARE, MEDICAID ==
[~2019-12-24] VITALS: Ht 157 cm; Wt 58.1 kg
[~2019-12-24 14:20] MED LIST changes: -INDO50CA11 PO; +INDO50CA82 PO; -TRAM50TA2 PO; +TRM50T PO
[2019-12-24] MEDS ORDERED: NS IV 500 ML 500 ML IV ONE (14:34)
[2019-12-24 14:42] LABS: BASOPHILS % (AUTO) 0 % (0-10); EOSINOPHILS # (AUTO) 0.1 10^3/uL (0.0-0.3); EOSINOPHILS % (AUTO) 1 % (0-10); HEMATOCRIT 35 % (35-52); HEMOGLOBIN 11.6 G/DL (11.5-16.0); LYMPHOCYTES # (AUTO) 2.4 X 10^3 (1.0-4.0); LYMPHOCYTES % (AUTO) 29 % (12-44); MEAN CORPUSCULAR HEMOGLOBIN 29 PG (25-34); MEAN CORPUSCULAR HGB CONC 33 G/DL (32-36); MEAN CORPUSCULAR VOLUME 90 FL (80-99); MEAN PLATELET VOLUME 9.6 FL (7.4-10.4); MONOCYTES % (AUTO) 12 % (0-12); NEUTROPHILS % (AUTO) 59 % (42-75); PLATELET COUNT 282 10^3/uL (130-400); RED CELL DISTRIBUTION WIDTH 15.1 % (10.0-14.5); WHITE BLOOD COUNT 8.5 10^3/uL (4.3-11.0)
--- NOTE | 2019-12-24 14:42 | ED EENT ---
History of Present Illness General Stated Complaint: MOUTH/TONGUE SWELLING Source: patient, RN/MD (Danica at [facility]), caregiver Exam Limitations: no limitations History of Present Illness Date Seen by Provider: Dec 24, 2019 Time Seen by Provider: 14:17 Initial Comments Patient presents to the ER by private conveyance from urgent care where she had presented because she started noticing some swollen upper lip right greater than left. In the time it took to room her in and get the nurse practitioner in the room to see her her tongue began to swell. She had no wheezing stridor or difficulty breathing. No difficulty swallowing fluids. She was given 50 mg IM Benadryl and Solu-Medrol IM. They encouraged her to come to the ER by ambulance and she declined. Her caregiver brought her over by POV. The patient has a history of angioedema in the past but they've never discovered why. She did just finish today her last dose of Levaquin for a pneumonia and has follow-up appointment tomorrow with primary care. She's not having shortness of breath, productive cough, fevers chills nausea vomiting sweats chest pain. She has a port on her left chest you to poor vascular access and she receives monthly injections for her rheumatoid arthritis. Allergies and Home Medications Allergies Coded Allergies: Sulfa (Sulfonamide Antibiotics) (Verified Allergy, Unknown, 05/17/19) Home Medications Amitriptyline HCl 25 Mg Tablet, 25 MG PO HS, (Reported) Aripiprazole 15 Mg Tablet, 15 MG PO DAILY, (Reported) Cholecalciferol (Vitamin D3) 1,000 Unit Tablet, 1,000 UNIT PO DAILY, (Reported) Gabapentin 300 Mg Capsule, 300 MG PO BID, (Reported) Levothyroxine Sodium 75 Mcg Tablet, 75 MCG PO DAILY, (Reported) Meclizine HCl 25 Mg Tablet, 25 MG PO Q6H PRN for VERTIGO Prescribed by: KIRSTIN GARZA on 05/17/19 0440 Memantine HCl 5 Mg Tablet, 5 MG PO BID 5 MG PO Q AM and HS. Prescribed by: BLU QUINONES on 06/10/15 1523 Metoprolol Tartrate 50 Mg Tablet, 50 MG PO DAILY, (Reported) Ondansetron 4 Mg Tab.rapdis, 4 MG PO Q6H PRN for NAUSEA/VOMITING Prescribed by: ELIEZER LOPEZ on 06/14/19 1715 Pantoprazole Sodium 40 Mg Tablet.dr, 40 MG PO DAILY, (Reported) Prednisone 10 Mg Tab, 30 MG PO DAILY Prescribed by: REGLA LAWRENCE on 05/11/19 1441 Sucralfate 1 Gm Tablet, 1 GM PO QIDACHS Prescribed by: REGLA LAWRENCE on 03/05/19 1914 Sumatriptan Succinate 100 Mg Tablet, 0.5 TAB PO PRN PRN for HEADACHE May repeat in 2 hours; Max 200 MG/24 hours. Prescribed by: BLU QUINONES on 06/10/15 155 Tramadol HCl 50 Mg Tablet, 50 MG PO BID, (Reported) Vitamin E 400 Unit Capsule, 400 UNIT PO DAILY, (Reported) Vortioxetine Hydrobromide 5 Mg Tablet, 5 MG PO DAILY, (Reported) [Biotin] , 10,000 MCG PO Evening Prescribed by: BLU QUINONES on 06/12/15 153 [Folic Acid 1MG] , 2 MG PO DAILY, (Reported) [Iron 65MG] , 65 MG PO Evening Prescribed by: BLU QUINONES on 06/12/15 1530 [Nitrostat] , 0.4 MG SL UD Q5 min X3 PRN. Prescribed by: BLU QUINONES on 06/10/15 155 [Potassium] , 20 MEQ PO BID, (Reported) Patient Home Medication List Home Medication List Reviewed: Yes Review of Systems Review of Systems Constitutional: No chills, No fever Eyes: Denies Blindness, Denies Drainage Ears: Denies Dizziness, Denies Pain Nose: denies clots, denies congestion Mouth: see HPI; denies clots, denies pain; swelling; denies clear discharge; other (swollen tongue) Throat: denies pain, denies swelling, denies neck stiffness, denies hoarse, denies aphonia Respiratory: No cough, No short of breath Cardiovascular: No chest pain, No edema Gastrointestinal: No abdominal pain, No nausea, No vomiting Musculoskeletal: No back pain, No gout, No joint pain Skin: No pruritus, No rash 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: Denies Headache, Denies Numbness, Denies Paresthesia Past Kqcyjmv-Aszvms-Dtscyr Hx Patient Social History Alcohol Use: Denies Use Smoking Status: Former Smoker Type Used: Cigarettes Former Smoker, Quit: May 13, 2009 2nd Hand Smoke Exposure: No Recent Foreign Travel: No Contact w/Someone Who Travel: No Recent Hopitalizations: No Immunizations Up To Date Tetanus Booster (TDap): Unknown PED Vaccines UTD: Yes Date of Pneumonia Vaccine: Nov 05, 2012 Seasonal Allergies Seasonal Allergies: Yes Past Medical History Surgeries: Yes Abdominal, Adenoidectomy, Bowel Surgery, Gallbladder, Hysterectomy, Oophorectomy, Rectal, Tonsillectomy Respiratory: Yes Pneumonia, COPD Cardiac: Yes (PSVT) High Cholesterol, Hypertension 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: Yes 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, 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 Genitourinary: No Gastrointestinal: Yes Chronic Constipation, Chronic Diarrhea, Hiatal Hernia, Gall Bladder Disease Musculoskeletal: Yes Osteoporosis, Arthritis, Fibromyalgia, Rheumatoid Arthritis, Chronic Back Pain Endocrine: Yes Hypothyroidsim HEENT: Yes Glaucoma Cancer: Yes Cervical Did You Recieve Any Treatments: Yes What Type of Treatment Did You: Surgical Intervention Psychosocial: Yes (EXTENSIVE PSYCH ISSUES) Anxiety, Bipolar, Depression Integumentary: No Blood Disorders: No Family Medical History No Pertinent Family Hx Physical Exam Vital Signs Vital Signs - First Documented 12/24/19 14:23 Temp 37.1 Pulse 80 Resp 20 B/P (MAP) 129/77 (94) Pulse Ox 100 O2 Delivery Room Air Height, Weight, BMI Height: 5'2.00" Weight: 125lbs. 0oz. 56.027870lt; 23.00 BMI Method:Stated General Appearance: WD/WN, no apparent distress Eyes: bilateral eye normal inspection, bilateral eye PERRL, bilateral eye EOMI Ears: bilateral ear auricle normal, bilateral ear canal normal, bilateral ear TM normal Nose: normal inspection Mouth/Throat: tongue swollen (moderately), other (upper lip is very swollen right worse than left.) Neck: non-tender, full range of motion, supple, normal inspection, other (no stridor, drooling or difficulty breathing) Cardiovascular: normal peripheral pulses, regular rate, rhythm Respiratory: lungs clear, normal breath sounds, no respiratory distress, no accessory muscle use Gastrointestinal: normal bowel sounds, non tender, soft Neurologic/Psychiatric: alert, normal mood/affect, oriented x 3 Skin: normal color, warm/dry Progress/Results/Core Measures Results/Orders Lab Results Laboratory Tests Test 12/24/19 14:30 Range/Units White Blood Count 8.5 4.3-11.0 10^3/uL Red Blood Count 3.94 L 4.35-5.85 10^6/uL Hemoglobin 11.6 11.5-16.0 G/DL Hematocrit 35 35-52 % Mean Corpuscular Volume 90 80-99 FL Mean Corpuscular Hemoglobin 29 25-34 PG Mean Corpuscular Hemoglobin Concent 33 32-36 G/DL Red Cell Distribution Width 15.1 H 10.0-14.5 % Platelet Count 282 130-400 10^3/uL Mean Platelet Volume 9.6 7.4-10.4 FL Neutrophils (%) (Auto) 59 42-75 % Lymphocytes (%) (Auto) 29 12-44 % Monocytes (%) (Auto) 12 0-12 % Eosinophils (%) (Auto) 1 0-10 % Basophils (%) (Auto) 0 0-10 % Neutrophils # (Auto) 5.0 1.8-7.8 X 10^3 Lymphocytes # (Auto) 2.4 1.0-4.0 X 10^3 Monocytes # (Auto) 1.0 0.0-1.0 X 10^3 Eosinophils # (Auto) 0.1 0.0-0.3 10^3/uL Basophils # (Auto) 0.0 0.0-0.1 10^3/uL Sodium Level 141 135-145 MMOL/L Potassium Level 3.5 L 3.6-5.0 MMOL/L Chloride Level 104 98-107 MMOL/L Carbon Dioxide Level 25 21-32 MMOL/L Anion Gap 12 5-14 MMOL/L Blood Urea Nitrogen 8 7-18 MG/DL Creatinine 0.88 0.60-1.30 MG/DL Estimat Glomerular Filtration Rate > 60 BUN/Creatinine Ratio 9 Glucose Level 96 70-105 MG/DL Calcium Level 9.2 8.5-10.1 MG/DL My Orders Orders - KIRSTIN GARZA Epinephrine 1 Mg Injection (Adrenalin I (12/24/19 14:45) Diphenhydramine Injection (Benadryl Inje (12/24/19 14:45) Loratadine Tablet (Claritin Tablet) (12/24/19 14:45) Famotidine Injection (Pepcid Injection) (12/24/19 14:45) Ed Iv/Invasive Line Start (12/24/19 14:34) Ns Iv 500 Ml (Sodium Chloride 0.9%) (12/24/19 14:34) Cbc With Automated Diff (12/24/19 14:34) Basic Metabolic Panel (12/24/19 14:34) Medications Given in ED Current Medications Medications Dose Ordered Sig/Mana Route Start Time Stop Time Status Last Admin Dose Admin Diphenhydramine HCl 25 mg ONCE ONCE IVP 12/24/19 14:45 12/24/19 14:46 DC 12/24/19 14:47 25 MG Epinephrine HCl 0.3 mg ONCE ONCE IM 12/24/19 14:45 12/24/19 14:46 DC 12/24/19 14:46 0.3 MG Famotidine 20 mg ONCE ONCE IVP 12/24/19 14:45 12/24/19 14:46 DC 12/24/19 14:47 20 MG Loratadine 10 mg ONCE ONCE PO 12/24/19 14:45 12/24/19 14:46 DC 12/24/19 16:31 10 MG Sodium Chloride 500 ml @ 0 mls/hr Q0M ONCE IV 12/24/19 14:34 12/24/19 14:37 DC 12/24/19 14:47 500 MLS/HR Vital Signs/I&O 12/24/19 14:23 Temp 37.1 Pulse 80 Resp 20 B/P (MAP) 129/77 (94) Pulse Ox 100 O2 Delivery Room Air Progress Progress Note #1: Time: 14:41 Progress Note Plan to give her intramuscular epinephrine, a little more Benadryl, loratadine and Pepcid IV. We are 500 cc of fluid and observe her for improvement. At this point she is not in imminent airway collapse. Progress Note #2: Time: 16:12 Progress Note Reexamination patient's tongue is not swollen but left is still swollen this before. She's having no respiratory difficulty. She's having no difficulty swallowing secretions. We'll give her another hour or 2 of observation as the medications wear off and see how she does. Progress Note #3: Time: 16:54 Progress Note The patient swelling in her lip has reduced and she feels that it is much improved from before. She is able to eat and drink. She has no difficulty alisson athing or stridor. Were going to put her on a antihistamine blockade with strict instructions to return to the ER. Departure Impression Primary Impression: Angioedema of lips Qualified Codes: T78.3XXA - Angioneurotic edema, initial encounter Disposition: 01 HOME, SELF-CARE Condition: Stable Departure-Patient Inst. Decision time for Depature: 16:54 Referrals: MAC HANDY MD (PCP/Family) Primary Care Physician Patient Instructions: Angioedema (DC) Add. Discharge Instructions: I'm not certain if the Levaquin or something you ate caused your angioedema today. You can follow-up with your primary care doctor to discuss this as well as in follow-up for your pneumonia. For the next week I would like you to take Zantac 150 mg twice a day. I would like you to take either Claritin or Zyrtec 10 mg twice a day for one week. Generic names are loratadine and cetirizine. If you have increased swelling or itching then you can take Benadryl 1 or 2 tablets every 6 hours as needed to control your symptoms. If you have difficulty breathing or swallowing her secretions you need to call 911 and return to the ER immediately. You may give 1 autoinjector of epinephrine every 15 minutes as necessary for difficulty breathing on the way to the emergency room. Scripts Epinephrine (Epipen 2-Max) 0.3 Mg/0.3 Ml Auto.injct 0.3 MG IJ Q15M PRN for angioedema, #1 EA 0 Refills Prov: KIRSTIN GARZA 12/24/19 Copy Copies To 1: MAC HANDY MD, TITUS J Dec 24, 2019 14:42
[2019-12-24] MEDS ORDERED: diphenhydrAMINE 50 MG/ML INJ (BENADRYL) IVP ONE (14:45)
[2019-12-24] MEDS ORDERED: FAMOTIDINE 20MG/2ML IV (PEPCID) IVP ONE (14:45)
[2019-12-24] MEDS ORDERED: EPINEPHrine INJECTION 1 MG/ML AMP IM ONE (14:45)
[2019-12-24] MEDS ORDERED: LORATADINE (CLARITIN) 10 MG TAB PO ONE (14:45)
[2019-12-24 15:07] LABS: BUN/CREATININE RATIO 9; CALCIUM 9.2 MG/DL (8.5-10.1); CARBON DIOXIDE 25 MMOL/L (21-32); CHLORIDE 104 MMOL/L (98-107); CREATININE SERUM 0.88 MG/DL (0.60-1.30); GFR ESTIMATED > 60; GLUCOSE 96 MG/DL (70-105); POTASSIUM 3.5 MMOL/L (3.6-5.0); SODIUM 141 MMOL/L (135-145)
[2019-12-24] MEDS ORDERED: EPIN0.3P3 IJ (16:58)
[2019-12-24 17:05] VITALS: BP 145/82
== END 2019-12-24 17:05 | disposition home or self-care (01) ==
LOC: EDUNIT# 14:20 → ER 14:21
DX: T78.3XXA Angioneurotic edema, initial encounter (principal); J44.9 Chronic obstructive pulmonary disease, unspecified; I10 Essential (primary) hypertension; E78.00 Pure hypercholesterolemia, unspecified; E03.9 Hypothyroidism, unspecified; F41.9 Anxiety disorder, unspecified; F31.9 Bipolar disorder, unspecified; M06.9 Rheumatoid arthritis, unspecified; M79.7 Fibromyalgia; G62.9 Polyneuropathy, unspecified; Z88.2 Allergy status to sulfonamides; Z79.52 Long term (current) use of systemic steroids; Z87.891 Personal history of nicotine dependence
CPT/HCPCS: 36415; 80048; 85025

== ENCOUNTER 2019-12-25 13:19 | Emergency (ER) | payer MEDICARE, MEDICAID ==
[~2019-12-25] VITALS: Ht 154.6 cm; Wt 57.2 kg
[~2019-12-25 13:19] MED LIST changes: +EPIN0.3P3 IJ
--- NOTE | 2019-12-25 13:29 | ED General ---
General Stated Complaint: L LEG/TONGUE SWELLING Source of Information: Patient Exam Limitations: No Limitations History of Present Illness Date Seen by Provider: Dec 25, 2019 Time Seen by Provider: 13:26 Initial Comments To ER per EMS from home with reports of left leg redness that has now resolved. It was read briefly this morning. She felt as though her tongue was swollen, that now feels better. She still has some redness to her face but no itching. She was recently treated for pneumonia and finished Levaquin yesterday. She was seen here yesterday for a variety of complaints, and home. She was seen at [facility] this morning, sent home and told that if her symptoms got worse than she should come to the emergency room. At this time, she is essentially back to normal except for the slight facial erythema Timing/Duration: 1/2 Hour Severity: Mild Associated Systoms: Cough Allergies and Home Medications Allergies Coded Allergies: Sulfa (Sulfonamide Antibiotics) (Verified Allergy, Unknown, 05/17/19) Home Medications Amitriptyline HCl 25 Mg Tablet, 25 MG PO HS, (Reported) Aripiprazole 15 Mg Tablet, 15 MG PO DAILY, (Reported) Cholecalciferol (Vitamin D3) 1,000 Unit Tablet, 1,000 UNIT PO DAILY, (Reported) Epinephrine 0.3 Mg/0.3 Ml Auto.injct, 0.3 MG IJ Q15M PRN for angioedema Prescribed by: KIRSTIN GARZA on 12/24/19 1658 Gabapentin 300 Mg Capsule, 300 MG PO BID, (Reported) Levothyroxine Sodium 75 Mcg Tablet, 75 MCG PO DAILY, (Reported) Meclizine HCl 25 Mg Tablet, 25 MG PO Q6H PRN for VERTIGO Prescribed by: KIRSTIN GARZA on 05/17/19 0440 Memantine HCl 5 Mg Tablet, 5 MG PO BID 5 MG PO Q AM and HS. Prescribed by: BLU QUINONES on 06/10/15 1523 Metoprolol Tartrate 50 Mg Tablet, 50 MG PO DAILY, (Reported) Ondansetron 4 Mg Tab.rapdis, 4 MG PO Q6H PRN for NAUSEA/VOMITING Prescribed by: ELIEZER LOPEZ on 06/14/19 1715 Pantoprazole Sodium 40 Mg Tablet.dr, 40 MG PO DAILY, (Reported) Prednisone 10 Mg Tab, 30 MG PO DAILY Prescribed by: REGLA LAWRENCE on 05/11/19 1441 Sucralfate 1 Gm Tablet, 1 GM PO QIDACHS Prescribed by: REGLA LAWRENCE on 03/05/19 1914 Sumatriptan Succinate 100 Mg Tablet, 0.5 TAB PO PRN PRN for HEADACHE May repeat in 2 hours; Max 200 MG/24 hours. Prescribed by: BLU QUINONES on 06/10/15 155 Tramadol HCl 50 Mg Tablet, 50 MG PO BID, (Reported) Vitamin E 400 Unit Capsule, 400 UNIT PO DAILY, (Reported) Vortioxetine Hydrobromide 5 Mg Tablet, 5 MG PO DAILY, (Reported) [Biotin] , 10,000 MCG PO Evening Prescribed by: BLU QUINONES on 06/12/15 153 [Folic Acid 1MG] , 2 MG PO DAILY, (Reported) [Iron 65MG] , 65 MG PO Evening Prescribed by: BLU QUINONES on 06/12/15 1530 [Nitrostat] , 0.4 MG SL UD Q5 min X3 PRN. Prescribed by: BLU QUINONES on 06/10/15 155 [Potassium] , 20 MEQ PO BID, (Reported) Patient Home Medication List Home Medication List Reviewed: Yes Review of Systems Review of Systems Constitutional: see HPI EENTM: see HPI Respiratory: no symptoms reported Cardiovascular: no symptoms reported Genitourinary: no symptoms reported Musculoskeletal: no symptoms reported Skin: see HPI Psychiatric/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: No Symptoms Reported Hematologic/Lymphatic: No Symptoms Reported Past Bdkqyxp-Mbkjxi-Yrrtra Hx Patient Social History Type Used: Cigarettes Former Smoker, Quit: May 13, 2009 2nd Hand Smoke Exposure: No Recent Hopitalizations: No Immunizations Up To Date Tetanus Booster (TDap): Unknown PED Vaccines UTD: Yes Date of Pneumonia Vaccine: Nov 05, 2012 Seasonal Allergies Seasonal Allergies: Yes Past Medical History Surgeries: Yes Abdominal, Adenoidectomy, Bowel Surgery, Gallbladder, Hysterectomy, Oophorectomy, Rectal, Tonsillectomy Respiratory: Yes Pneumonia, COPD Cardiac: Yes (PSVT) High Cholesterol, Hypertension 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: Yes 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, 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 Genitourinary: No Gastrointestinal: Yes Chronic Constipation, Chronic Diarrhea, Hiatal Hernia, Gall Bladder Disease Musculoskeletal: Yes Osteoporosis, Arthritis, Fibromyalgia, Rheumatoid Arthritis, Chronic Back Pain Endocrine: Yes Hypothyroidsim HEENT: Yes Glaucoma Cancer: Yes Cervical Did You Recieve Any Treatments: Yes What Type of Treatment Did You: Surgical Intervention Psychosocial: Yes (EXTENSIVE PSYCH ISSUES) Anxiety, Bipolar, Depression Integumentary: No Blood Disorders: No Family Medical History No Pertinent Family Hx Physical Exam Vital Signs Capillary Refill : Height, Weight, BMI Height: 5'2.00" Weight: 125lbs. 0oz. 56.069884rp; 23.00 BMI Method:Stated General Appearance: No Apparent Distress, WD/WN, Other (facial erythema no tongue or lip swelling at this time. There is absolutely no left lower cavity redness or swelling.) Eyes: Bilateral Eye Normal Inspection, Bilateral Eye PERRL HEENT: PERRL/EOMI, Normal ENT Inspection Respiratory: No Accessory Muscle Use, No Respiratory Distress Cardiovascular: Regular Rate, Rhythm, Normal Peripheral Pulses Gastrointestinal: Non Tender, Soft Neurologic/Psychiatric: Alert, Oriented x3 Skin: Normal Color, Warm/Dry Progress/Results/Core Measures Suspected Sepsis SIRS Temperature: Pulse: Respiratory Rate: Blood Pressure / Mean: Results/Orders My Orders Orders - DEONNA MOBLEY APRN Hydroxyzine Cap/Tab (Vistaril) (12/25/19 13:30) Vital Signs/I&O Capillary Refill : Departure Impression Primary Impression: Facial erythema Disposition: HOME, SELF-CARE Condition: Stable Departure-Patient Inst. Referrals: MAC HANDY MD (PCP/Family) Primary Care Physician DEONNA MOBLEY APRN Dec 25, 2019 13:28
[2019-12-25] MEDS ORDERED: hydrOXYzine (VISTARIL/ATARAX) 25 MG capsule/tablet PO ONE (13:30)
[2019-12-25] MEDS ORDERED: predniSONE 20 MG TAB PO ONE (15:00)
[2019-12-25 16:03] VITALS: BP 146/88
[2019-12-25 16:41] VITALS: BP 144/88
--- NOTE | 2019-12-25 17:07 | Diagnostic Imaging Report ---
PROCEDURE: CT neck soft tissue without contrast. TECHNIQUE: Multiple contiguous axial images were obtained through the neck without the use of intravenous contrast. Auto Exposure Controls were utilized during the CT exam to meet ALARA standards for radiation dose reduction. INDICATION: Sore throat. COMPARISON: There are no previous CT neck examinations available for comparison. FINDINGS: The sagittal images show that the epiglottis is normal in thickness. There is no sign of retropharyngeal edema. There is no peritonsillar abscess identified either. The submandibular glands and parotid glands are symmetrical. The thyroid gland was not well visualized. The gland does not appear to be enlarged, and there is no focal mass involving the gland. The tracheal air shadow is not compressed or deviated. The larynx is generally unremarkable. The lung apices are clear. The bone windows show no sign of a fracture or of a destructive lesion. There is degenerative disc and bony disease throughout the cervical spine. These changes seem similar to the previous CT cervical spine exam of 10/22/2019. There is no acute bony abnormality noted. IMPRESSION: 1. There is no acute abnormality of the neck. There is no mass or adenopathy identified either. 2. These results were discussed with Jonathon De Souza APRN. Dictated by: Dictated on workstation # [id number]
[2019-12-25 17:11] VITALS: BP 138/83
== END 2019-12-25 17:13 | disposition home or self-care (01) ==
LOC: EDUNIT# 13:19 → ER 13:20
DX: L53.9 Erythematous condition, unspecified (principal); I10 Essential (primary) hypertension; J44.9 Chronic obstructive pulmonary disease, unspecified; F41.9 Anxiety disorder, unspecified; F31.9 Bipolar disorder, unspecified; E03.9 Hypothyroidism, unspecified; Z88.2 Allergy status to sulfonamides; Z87.891 Personal history of nicotine dependence
CPT/HCPCS: 70490

== ENCOUNTER 2020-01-06 19:16 | Emergency (ER) | payer MEDICARE, MEDICAID ==
[~2020-01-06] VITALS: Ht 157.5 cm; Wt 55.8 kg
[~2020-01-06 19:16] MED LIST changes: -MECL-106 PO; +MECL-149 PO
[2020-01-06] MEDS ORDERED: LIDOCAINE UROJET 2% GEL 10 ML PKG TOP ONE (20:15)
--- NOTE | 2020-01-06 20:15 | ED GI ---
General Chief Complaint: Rect Problems Stated Complaint: RECTAL BLEEDING Nursing Triage Note: PT TO ROOM 06 WITH C/O RECTAL PAIN AND BLEEDING X2 MONTHS. PT STATES HAVING A PROLAPSE RECTUM THAT WILL COME OUT EVERY TIME SHE GOES POOP. PT STATES SHE HAS AN APPT WITH COLERECTAL DOCTOR ON SUNDAY. PT REPORTS PAIN IS WORSE AND THAT HER BALANCE IS WORSE WELL. PT STATES SHE THINKS THE BALANCE PROBLEMS ARE RELATED TO THE RECTAL PROBLEMS. PT REPORTS HAVING CROHNS. Sepsis Screen: No Definite Risk Source of Information: Patient Exam Limitations: No Limitations History of Present Illness Date Seen by Provider: Jan 06, 2020 Time Seen by Provider: 20:12 Initial Comments To ER with rectal pain and oozing of blood intermittently for 2 months, she has a long-standing rectal prolapse and is scheduled to see a surgeon Dr. Sparks at the [facility] this Sunday. She presents tonight because of severe pain at the rectum. Timing/Duration: Constant, Getting Worse Severity/Quality: Moderate Radiation: No Radiation Activities at Onset: None Associated Symptoms: Denies Symptoms Allergies and Home Medications Allergies Coded Allergies: Sulfa (Sulfonamide Antibiotics) (Verified Allergy, Unknown, 05/17/19) Home Medications Amitriptyline HCl 25 Mg Tablet, 25 MG PO HS, (Reported) Aripiprazole 15 Mg Tablet, 15 MG PO DAILY, (Reported) Cholecalciferol (Vitamin D3) 1,000 Unit Tablet, 1,000 UNIT PO DAILY, (Reported) Epinephrine 0.3 Mg/0.3 Ml Auto.injct, 0.3 MG IJ Q15M PRN for angioedema Prescribed by: KIRSTIN GARZA on 12/24/19 1658 Gabapentin 300 Mg Capsule, 300 MG PO BID, (Reported) Levothyroxine Sodium 75 Mcg Tablet, 75 MCG PO DAILY, (Reported) Meclizine HCl 25 Mg Tablet, 25 MG PO Q6H PRN for VERTIGO Prescribed by: KIRSTIN GARZA on 05/17/19 0440 Memantine HCl 5 Mg Tablet, 5 MG PO BID 5 MG PO Q AM and HS. Prescribed by: BLU QUINONES on 06/10/15 1523 Metoprolol Tartrate 50 Mg Tablet, 50 MG PO DAILY, (Reported) Ondansetron 4 Mg Tab.rapdis, 4 MG PO Q6H PRN for NAUSEA/VOMITING Prescribed by: ELIEZER LOPEZ on 06/14/19 171 Pantoprazole Sodium 40 Mg Tablet.dr, 40 MG PO DAILY, (Reported) Prednisone 10 Mg Tab, 30 MG PO DAILY Prescribed by: REGLA LAWRENCE on 05/11/19 1441 Sucralfate 1 Gm Tablet, 1 GM PO QIDACHS Prescribed by: REGLA LAWRENCE on 03/05/19 191 Sumatriptan Succinate 100 Mg Tablet, 0.5 TAB PO PRN PRN for HEADACHE May repeat in 2 hours; Max 200 MG/24 hours. Prescribed by: BLU QUINONES on 06/10/15 155 Tramadol HCl 50 Mg Tablet, 50 MG PO BID, (Reported) Vitamin E 400 Unit Capsule, 400 UNIT PO DAILY, (Reported) Vortioxetine Hydrobromide 5 Mg Tablet, 5 MG PO DAILY, (Reported) [Biotin] , 10,000 MCG PO Evening Prescribed by: BUL QUINONES on 06/12/15 1530 [Folic Acid 1MG] , 2 MG PO DAILY, (Reported) [Iron 65MG] , 65 MG PO Evening Prescribed by: BLU QUINONES on 06/12/15 1530 [Nitrostat] , 0.4 MG SL UD Q5 min X3 PRN. Prescribed by: BLU QUINONES on 06/10/15 155 [Potassium] , 20 MEQ PO BID, (Reported) Patient Home Medication List Home Medication List Reviewed: Yes Review of Systems Review of Systems Constitutional: see HPI EENTM: No Symptoms Reported Respiratory: No Symptoms Reported Cardiovascular: No Symptoms Reported Gastrointestinal: See HPI; Denies Abdominal Pain, Denies Constipated, Denies Diarrhea; Rectal Bleeding Genitourinary: No Symptoms Reported Musculoskeletal: no symptoms reported Skin: no symptoms reported Psychiatric/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: No Symptoms Reported Endocrine: No Symptoms Reported Past Nqithjw-Ufcxyk-Awrtpp Hx Patient Social History Alcohol Use: Denies Use Recreational Drug Use: No Smoking Status: Former Smoker Type Used: Cigarettes Former Smoker, Quit: May 13, 2009 2nd Hand Smoke Exposure: No Recent Foreign Travel: No Contact w/Someone Who Travel: No Recent Infectious Disease Expo: No Recent Hopitalizations: No Physical Abuse: No Sexual Abuse: No Mistreated: No Fear: No Immunizations Up To Date Tetanus Booster (TDap): Unknown PED Vaccines UTD: Yes Date of Pneumonia Vaccine: Nov 05, 2012 Seasonal Allergies Seasonal Allergies: Yes Past Medical History Surgeries: Yes Abdominal, Adenoidectomy, Bowel Surgery, Gallbladder, Hysterectomy, Oophorectomy, Rectal, Tonsillectomy Respiratory: Yes Pneumonia, COPD Cardiac: Yes (PSVT) High Cholesterol, Hypertension 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, 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 Genitourinary: No Gastrointestinal: Yes Chronic Constipation, Chronic Diarrhea, Hiatal Hernia, Gall Bladder Disease Musculoskeletal: Yes Osteoporosis, Arthritis, Fibromyalgia, Rheumatoid Arthritis, Chronic Back Pain Endocrine: Yes Hypothyroidsim HEENT: Yes Glaucoma Cancer: Yes Cervical Did You Recieve Any Treatments: Yes What Type of Treatment Did You: Surgical Intervention Psychosocial: Yes (EXTENSIVE PSYCH ISSUES) Anxiety, Bipolar, Depression Integumentary: No Blood Disorders: No Family Medical History No Pertinent Family Hx Physical Exam Vital Signs Vital Signs - First Documented 01/06/20 19:45 Temp 37.0 Pulse 99 Resp 18 B/P (MAP) 171/104 (126) O2 Delivery Room Air Capillary Refill : Less Than 3 Seconds Height/Weight/BMI Height: 5'2.00" Weight: 125lbs. 0oz. 56.554878bn; 22.00 BMI Method:Stated General Appearance: WD/WN, no apparent distress HEENT: PERRL/EOMI, normal ENT inspection Respiratory: no respiratory distress, no accessory muscle use Gastrointestinal: normal bowel sounds, soft Extremities: normal range of motion, non-tender Neurologic/Psychiatric: alert, normal mood/affect, oriented x 3 Skin: normal color, warm/dry Exam Comments There is no blood on the diaper, there is no rectal prolapse at this time, we will apply some lidocaine topically and just inside the anus to see if this helps with pain control. Progress/Results/Core Measures Results/Orders My Orders Orders - DEONNA MOBLEY APRN Lidocaine 2% (Urojet) (Xylocaine Urojet) (01/06/20 20:15) Medications Given in ED Current Medications Medications Dose Ordered Sig/Mana Route Start Time Stop Time Status Last Admin Dose Admin Lidocaine HCl 10 ml ONCE ONCE TOP 01/06/20 20:15 01/06/20 20:16 DC 01/06/20 20:21 10 ML Vital Signs/I&O 01/06/20 19:45 Temp 37.0 Pulse 99 Resp 18 B/P (MAP) 171/104 (126) O2 Delivery Room Air Blood Pressure Mean: 126 Departure Impression Primary Impression: Rectal pain Disposition: 01 HOME, SELF-CARE Condition: Stable Departure-Patient Inst. Decision time for Depature: 20:14 Referrals: MAC HANDY MD (PCP/Family) Primary Care Physician Patient Instructions: NO INSTRUCTIONS GIVEN Add. Discharge Instructions: 1. Keep your appointment with surgeon on Sunday. Apply the topical lidocaine as needed. All discharge instructions reviewed with patient and/or family. Voiced understanding. Scripts Lidocaine (Recticare) 15 Gm Cream..g. 1 GM TP TID PRN for PAIN-SEVERE (8-10), #1 TUBE Prov: DEONNA MOBLEY APRN 01/06/20 DEONNA MOBLEY APRN Jan 06, 2020 20:15
[2020-01-06] MEDS ORDERED: LIDO15CR6 TP (20:30)
[2020-01-06 21:18] VITALS: BP 137/76
== END 2020-01-06 21:18 | disposition home or self-care (01) ==
LOC: EDUNIT# 19:16 → ER 19:18
DX: K62.89 Other specified diseases of anus and rectum (principal); J44.9 Chronic obstructive pulmonary disease, unspecified; I10 Essential (primary) hypertension; E78.00 Pure hypercholesterolemia, unspecified; E03.9 Hypothyroidism, unspecified; F41.9 Anxiety disorder, unspecified; F31.9 Bipolar disorder, unspecified; Z85.41 Personal history of malignant neoplasm of cervix uteri; Z88.2 Allergy status to sulfonamides; Z79.52 Long term (current) use of systemic steroids; Z87.891 Personal history of nicotine dependence
CPT/HCPCS: 99282

== ENCOUNTER 2020-01-07 14:46 | Emergency (ER) | payer MEDICARE, MEDICAID ==
[~2020-01-07] VITALS: Ht 157.4 cm; Wt 55.9 kg
[2020-01-07 14:46] VITALS: BP 141/72
[~2020-01-07 14:46] MED LIST changes: +LIDO15CR6 TP
--- NOTE | 2020-01-07 15:08 | ED General ---
General Chief Complaint: General Problems/Pain Stated Complaint: SWELLING OF HANDS AND FEET Nursing Triage Note: TO ED PER EMS WAS SEEN LAST NIGHT FOR RECTAL PROLAPSE TO SEE DR FOR THAT ON SUNDAY. WAS TOLD TO COME BACK TO ED WITH ANY SWELLING IN HAND'S OR FEET FEELING LIKE HER HAND'S AND FEET ARE SWOLLEN. ON ADMIT TO ED NO SWELLING. IN HAND'S FOR FEET. Nursing Sepsis Screen: No Definite Risk History of Present Illness Date Seen by Provider: Jan 07, 2020 Time Seen by Provider: 14:46 Initial Comments 74-year-old female presents because of bilateral hand and feet swelling. She has a history of rheumatoid arthritis and has intermittent swelling of her joints. She is also extremely anxious about her upcoming surgery on Sunday for the rectal prolapse. She denies any rectal pain today however she was seen yesterday for that complaint at this emergency department. Timing/Duration: 1-3 Hours Associated Systoms: Denies Symptoms Allergies and Home Medications Allergies Coded Allergies: Sulfa (Sulfonamide Antibiotics) (Verified Allergy, Unknown, 05/17/19) Home Medications Amitriptyline HCl 25 Mg Tablet, 25 MG PO HS, (Reported) Aripiprazole 15 Mg Tablet, 15 MG PO DAILY, (Reported) Cholecalciferol (Vitamin D3) 1,000 Unit Tablet, 1,000 UNIT PO DAILY, (Reported) Epinephrine 0.3 Mg/0.3 Ml Auto.injct, 0.3 MG IJ Q15M PRN for angioedema Prescribed by: KIRSTIN GARZA on 12/24/19 165 Gabapentin 300 Mg Capsule, 300 MG PO BID, (Reported) Levothyroxine Sodium 75 Mcg Tablet, 75 MCG PO DAILY, (Reported) Lidocaine 15 Gm Cream..g., 1 GM TP TID PRN for PAIN-SEVERE (8-10) Prescribed by: DEONNA MOBLEY on 01/06/202029 Meclizine HCl 25 Mg Tablet, 25 MG PO Q6H PRN for VERTIGO Prescribed by: KIRSTIN GARZA on 05/17/19 0440 Memantine HCl 5 Mg Tablet, 5 MG PO BID 5 MG PO Q AM and HS. Prescribed by: BLU QUINONES on 06/10/15 1523 Metoprolol Tartrate 50 Mg Tablet, 50 MG PO DAILY, (Reported) Ondansetron 4 Mg Tab.rapdis, 4 MG PO Q6H PRN for NAUSEA/VOMITING Prescribed by: ELIEZER LOPEZ on 06/14/19 1715 Pantoprazole Sodium 40 Mg Tablet.dr, 40 MG PO DAILY, (Reported) Prednisone 10 Mg Tab, 30 MG PO DAILY Prescribed by: REGLA LAWRENCE on 05/11/19 1441 Sucralfate 1 Gm Tablet, 1 GM PO QIDACHS Prescribed by: REGLA LAWRENCE on 03/05/19 1914 Sumatriptan Succinate 100 Mg Tablet, 0.5 TAB PO PRN PRN for HEADACHE May repeat in 2 hours; Max 200 MG/24 hours. Prescribed by: BLU QUINONES on 06/10/15 1555 Tramadol HCl 50 Mg Tablet, 50 MG PO BID, (Reported) Vitamin E 400 Unit Capsule, 400 UNIT PO DAILY, (Reported) Vortioxetine Hydrobromide 5 Mg Tablet, 5 MG PO DAILY, (Reported) [Biotin] , 10,000 MCG PO Evening Prescribed by: BLU QUINONES on 06/12/15 1530 [Folic Acid 1MG] , 2 MG PO DAILY, (Reported) [Iron 65MG] , 65 MG PO Evening Prescribed by: BLU QUINONES on 06/12/15 1530 [Nitrostat] , 0.4 MG SL UD Q5 min X3 PRN. Prescribed by: BLU QUINONES on 06/10/15 155 [Potassium] , 20 MEQ PO BID, (Reported) Patient Home Medication List Home Medication List Reviewed: Yes Review of Systems Review of Systems Constitutional: no symptoms reported, see HPI Musculoskeletal: see HPI, joint swelling (upper and lower extremities) All Other Systems Reviewed Negative Unless Noted: Yes Past Imswudu-Zbwhpt-Amlugu Hx Past Med/Social Hx: Reviewed Nursing Past Med/Soc Hx Patient Social History Alcohol Use: Denies Use Recreational Drug Use: No Type Used: Cigarettes Former Smoker, Quit: May 13, 2009 2nd Hand Smoke Exposure: No Recent Foreign Travel: No Contact w/Someone Who Travel: No Recent Infectious Disease Expo: No Recent Hopitalizations: No Immunizations Up To Date Tetanus Booster (TDap): Unknown PED Vaccines UTD: Yes Date of Pneumonia Vaccine: Nov 05, 2012 Seasonal Allergies Seasonal Allergies: Yes Past Medical History Surgeries: Yes Abdominal, Adenoidectomy, Bowel Surgery, Gallbladder, Hysterectomy, Oophorectomy, Rectal, Tonsillectomy Respiratory: Yes Pneumonia, COPD Cardiac: Yes (PSVT) High Cholesterol, Hypertension 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, 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 Genitourinary: No Gastrointestinal: Yes Chronic Constipation, Chronic Diarrhea, Hiatal Hernia, Gall Bladder Disease Musculoskeletal: Yes Osteoporosis, Arthritis, Fibromyalgia, Rheumatoid Arthritis, Chronic Back Pain Endocrine: Yes Hypothyroidsim HEENT: Yes Glaucoma Cancer: Yes Cervical Did You Recieve Any Treatments: Yes What Type of Treatment Did You: Surgical Intervention Psychosocial: Yes (EXTENSIVE PSYCH ISSUES) Anxiety, Bipolar, Depression Integumentary: No Blood Disorders: No Family Medical History No Pertinent Family Hx Physical Exam Vital Signs Vital Signs - First Documented 01/07/20 14:46 Temp 36.7 Pulse 89 Resp 18 B/P (MAP) 141/72 (95) Pulse Ox 97 O2 Delivery Room Air Capillary Refill : Less Than 3 Seconds Height, Weight, BMI Height: 5'2.00" Weight: 125lbs. 0oz. 56.307076ga; 22.00 BMI Method:Stated General Appearance: No Apparent Distress, WD/WN HEENT: PERRL/EOMI, TMs Normal, Normal ENT Inspection, Pharynx Normal Neck: Full Range of Motion, Normal Inspection, Non Tender, Supple Respiratory: Chest Non Tender, Lungs Clear, Normal Breath Sounds Cardiovascular: Regular Rate, Rhythm, Normal Peripheral Pulses, Other (trace edema bilateral ankles) Extremity: Normal Capillary Refill, Normal Inspection, Normal Range of Motion, Non Tender, Swelling (trace to bilateral hands), Other (neurovascular status intact bilateral upper extremities. Chronic changes noted to hands compatible with rheumatoid arthritis.) Neurologic/Psychiatric: Alert, Oriented x3, No Motor/Sensory Deficits, Normal Mood/Affect Skin: Normal Color, Warm/Dry Progress/Results/Core Measures Suspected Sepsis Recent Fever Within 48 Hours: No Infection Criteria Present: None New/Unexplained Altered Menta: No Sepsis Screen: No Definite Risk SIRS Temperature: Pulse: 89 Respiratory Rate: 18 Blood Pressure 141 /72 Mean: 95 Results/Orders Vital Signs/I&O 01/07/20 14:46 Temp 36.7 Pulse 89 Resp 18 B/P (MAP) 141/72 (95) Pulse Ox 97 O2 Delivery Room Air Capillary Refill : Less Than 3 Seconds Blood Pressure Mean: 95 Departure Impression Primary Impression: Rheumatoid arthritis flare Disposition: 01 HOME, SELF-CARE Condition: Improved Departure-Patient Inst. Decision time for Depature: 15:00 Referrals: MAC HANDY MD (PCP/Family) Primary Care Physician Patient Instructions: Rheumatoid Arthritis (DC) Add. Discharge Instructions: Elevated arms and legs, for swelling. Continue your Rheumatoid medicine. The emergency department is for life-threatening emergencies (chest pain, difficulty breathing, dehydration, etc), for non-emergent problems you are better served by seeing your primary care provider. Follow up with your primary care provider, if symptoms do not improve or worsen. Keep your scheduled appt in for rectal surgery, later this week. If rectal pain worsens, call the surgeons office. Return to the emergency dept for new, urgent, life-threatening emergencies. All discharge instructions reviewed with patient and/or family. Voiced understanding. Copy Copies To 1: MAC HANDY MD, AMY ARNP Jan 07, 2020 15:08
== END 2020-01-07 15:14 | disposition home or self-care (01) ==
LOC: EDUNIT# 14:46 → ER 14:47
DX: M06.9 Rheumatoid arthritis, unspecified (principal); J44.9 Chronic obstructive pulmonary disease, unspecified; I10 Essential (primary) hypertension; E03.9 Hypothyroidism, unspecified; F41.9 Anxiety disorder, unspecified; F31.9 Bipolar disorder, unspecified; E78.00 Pure hypercholesterolemia, unspecified; Z85.41 Personal history of malignant neoplasm of cervix uteri; Z88.2 Allergy status to sulfonamides; Z79.52 Long term (current) use of systemic steroids; Z87.891 Personal history of nicotine dependence
CPT/HCPCS: 99283

== ENCOUNTER 2020-01-11 12:13 | Emergency (ER) | payer MEDICARE, MEDICAID ==
[~2020-01-11] VITALS: Ht 157.4 cm; Wt 55.8 kg
[2020-01-11] MEDS ORDERED: NS IV 1000 ML 1,000 ML IV ONE (12:22)
[2020-01-11] MEDS ORDERED: fentaNYL INJECTION 100 MCG/2 ML AMP IVP STA (12:22)
[2020-01-11 12:41] LABS: BILIRUBIN,URINE NEGATIVE (NEGATIVE); CLARITY,URINE CLEAR; COLOR,URINE YELLOW; GLUCOSE, URINE (UA) NEGATIVE (NEGATIVE); KETONES,URINE NEGATIVE (NEGATIVE); LEUKOCYTE ESTERASE ,URINE NEGATIVE (NEGATIVE); NITRITE,URINE NEGATIVE (NEGATIVE); PROTEIN,URINE NEGATIVE (NEGATIVE)
[2020-01-11 12:42] LABS: BASOPHILS % (AUTO) 0 % (0-10); EOSINOPHILS # (AUTO) 0.1 10^3/uL (0.0-0.3); EOSINOPHILS % (AUTO) 1 % (0-10); HEMATOCRIT 37 % (35-52); HEMOGLOBIN 11.5 G/DL (11.5-16.0); LYMPHOCYTES # (AUTO) 1.5 X 10^3 (1.0-4.0); LYMPHOCYTES % (AUTO) 14 % (12-44); MEAN CORPUSCULAR HEMOGLOBIN 28 PG (25-34); MEAN CORPUSCULAR HGB CONC 31 G/DL (32-36); MEAN CORPUSCULAR VOLUME 90 FL (80-99); MONOCYTES # (AUTO) 1.3 X 10^3 (0.0-1.0); MONOCYTES % (AUTO) 12 % (0-12); NEUTROPHILS # (AUTO) 7.9 X 10^3 (1.8-7.8); NEUTROPHILS % (AUTO) 74 % (42-75); PLATELET COUNT 248 10^3/uL (130-400); RED CELL DISTRIBUTION WIDTH 15.4 % (10.0-14.5); WHITE BLOOD COUNT 10.7 10^3/uL (4.3-11.0)
[2020-01-11 12:50] LABS: BACTERIA,URINE NEGATIVE /HPF
[2020-01-11 12:57] LABS: ALANINE AMINOTRANSFERASE 18 U/L (0-55); ALBUMIN 3.5 GM/DL (3.2-4.5); ALKALINE PHOSPHATASE 91 U/L (40-136); BUN/CREATININE RATIO 16; CALCIUM 9.1 MG/DL (8.5-10.1); CARBON DIOXIDE 25 MMOL/L (21-32); CHLORIDE 108 MMOL/L (98-107); CREATINE KINASE 305 U/L (29-168); CREATININE SERUM 0.87 MG/DL (0.60-1.30); GFR ESTIMATED > 60; GLUCOSE 118 MG/DL (70-105); POTASSIUM 3.1 MMOL/L (3.6-5.0); SODIUM 145 MMOL/L (135-145); TOTAL PROTEIN 5.8 GM/DL (6.4-8.2)
--- NOTE | 2020-01-11 13:23 | ED Fall/Injury ---
General Chief Complaint: Trauma-Non Activation Stated Complaint: FALL Nursing Triage Note: FALL FROM STANDING, FOUND THIS AM COMPLAINT OF BACK PAIN Source: patient, EMS Exam Limitations: no limitations History of Present Illness Date Seen by Provider: Jan 11, 2020 Time Seen by Provider: 12:18 Initial Comments 74-year-old female patient presents via EMS with complaints of being found down on the ground by her caregiver this a.m. Patient reports getting something out of the fridge yesterday evening and lost her balance and falling backwards. She does report hitting her head on the wall. She is unsure if she lost consciousness. Patient states she lost her vision for approximately 30 minutes. She did not push her life alert button due to losing her vision. When asked why she didn't push her button after the vision returned, she isn't able to give a direct answer. Patient was seen at for a consultation to schedule a rectal surgery for rectal prolapse. She states she is supposed to have the surgery scheduled for this week. Patient states she has chronic generalized pain, but states her back does hurt worse than normal. She does have a history of rheumatoid arthritis. Patient was seen in the emergency department last week twice for the rectal prolapse and rheumatoid arthritis flare. Patient also complains of posterior head pain. Location Injury Occurred: home Occurred: yesterday (yesterday evening) Injuries/Pain Location: head, back Context: lost balance Loss of Consciousness: unsure Modifying Factors: Improves With Immobilization; Worse With Movement Allergies and Home Medications Allergies Coded Allergies: Sulfa (Sulfonamide Antibiotics) (Verified Allergy, Unknown, 05/17/19) Home Medications Amitriptyline HCl 25 Mg Tablet, 25 MG PO HS, (Reported) Aripiprazole 15 Mg Tablet, 15 MG PO DAILY, (Reported) Cholecalciferol (Vitamin D3) 1,000 Unit Tablet, 1,000 UNIT PO DAILY, (Reported) Epinephrine 0.3 Mg/0.3 Ml Auto.injct, 0.3 MG IJ Q15M PRN for angioedema Prescribed by: KIRSTIN GARZA on 12/24/191657 Gabapentin 300 Mg Capsule, 300 MG PO BID, (Reported) Levothyroxine Sodium 75 Mcg Tablet, 75 MCG PO DAILY, (Reported) Lidocaine 15 Gm Cream..g., 1 GM TP TID PRN for PAIN-SEVERE (8-10) Prescribed by: DEONNA MOBLEY on 3/3/20 2030 Meclizine HCl 25 Mg Tablet, 25 MG PO Q6H PRN for VERTIGO Prescribed by: KIRSTIN GARZA on 05/17/19 0440 Memantine HCl 5 Mg Tablet, 5 MG PO BID 5 MG PO Q AM and HS. Prescribed by: BLU QUINONES on 06/10/15 152 Metoprolol Tartrate 50 Mg Tablet, 50 MG PO DAILY, (Reported) Ondansetron 4 Mg Tab.rapdis, 4 MG PO Q6H PRN for NAUSEA/VOMITING Prescribed by: ELIEZER LOPEZ on 06/14/19 1715 Pantoprazole Sodium 40 Mg Tablet.dr, 40 MG PO DAILY, (Reported) Potassium Chloride 20 Meq Tablet.er, 20 MEQ PO BID Prescribed by: STEPH FINN on 01/11/20 144 Prednisone 10 Mg Tab, 30 MG PO DAILY Prescribed by: REGLA LAWRENCE on 05/11/19 1441 Sucralfate 1 Gm Tablet, 1 GM PO QIDACHS Prescribed by: REGLA LAWRENCE on 03/05/19 191 Sumatriptan Succinate 100 Mg Tablet, 0.5 TAB PO PRN PRN for HEADACHE May repeat in 2 hours; Max 200 MG/24 hours. Prescribed by: BLU QUINONES on 06/10/15 155 Tramadol HCl 50 Mg Tablet, 50 MG PO BID, (Reported) Vitamin E 400 Unit Capsule, 400 UNIT PO DAILY, (Reported) Vortioxetine Hydrobromide 5 Mg Tablet, 5 MG PO DAILY, (Reported) [Biotin] , 10,000 MCG PO Evening Prescribed by: BLU QUINONES on 06/12/15 1530 [Folic Acid 1MG] , 2 MG PO DAILY, (Reported) [Iron 65MG] , 65 MG PO Evening Prescribed by: BLU QUINONES on 06/12/15 1530 [Nitrostat] , 0.4 MG SL UD Q5 min X3 PRN. Prescribed by: BLU QUINONES on 06/10/15 155 [Potassium] , 20 MEQ PO BID, (Reported) Patient Home Medication List Home Medication List Reviewed: Yes Review of Systems Review of Systems Constitutional: No chills, No diaphoresis, No dizziness, No fever; other (fatigue) Eyes: See HPI; Denies Blindness, Denies Blurred Vision, Denies Drainage, Denies Decreased Acuity, Denies Pain, Denies Photophobia, Denies Vision Changes; Glasses Ears, Nose, Mouth, Throat: denies ear pain, denies ear discharge, denies nose pain, denies nose discharge, denies epistaxis, denies mouth pain, denies loose teeth, denies throat pain, denies throat swelling Respiratory: No cough, No dyspnea on exertion, No orthopnea, No phlegm, No short of breath, No stridor, No wheezing Cardiovascular: No chest pain, No edema, No palpitations, No syncope Gastrointestinal: No abdominal pain, No constipation, No diarrhea; nausea; No vomiting; other (chronic rectal prolapse) Genitourinary: other (pt reports chronic urinary frequency and difficulty emptying her bladder secondary to the rectal prolapse.) Musculoskeletal: see HPI Skin: no symptoms reported Psychiatric/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: Headache; Denies Numbness, Denies Paresthesia, Denies Seizure, Denies Tingling, Denies Weakness All Other Systems Reviewed Negative Unless Noted: Yes (Negative excepted noted.) Past Grrbqxi-Igptrg-Izbekg Hx Past Med/Social Hx: Reviewed Nursing Past Med/Soc Hx Patient Social History Alcohol Use: Denies Use Recreational Drug Use: No Type Used: Cigarettes Former Smoker, Quit: May 13, 2009 2nd Hand Smoke Exposure: No Recent Foreign Travel: No Contact w/Someone Who Travel: No Recent Infectious Disease Expo: No Recent Hopitalizations: No Physical Abuse: No Sexual Abuse: No Mistreated: No Immunizations Up To Date Tetanus Booster (TDap): More than 5yrs PED Vaccines UTD: Yes Date of Pneumonia Vaccine: Sep 04, 2019 Date of Influenza Vaccine: Sep 04, 2019 Seasonal Allergies Seasonal Allergies: Yes Past Medical History Surgeries: Yes Abdominal, Adenoidectomy, Bowel Surgery, Gallbladder, Hysterectomy, Oophorectomy, Rectal, Tonsillectomy Respiratory: Yes Pneumonia, COPD Cardiac: Yes (PSVT) High Cholesterol, Hypertension 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: Yes 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, 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 Genitourinary: No Gastrointestinal: Yes Chronic Constipation, Chronic Diarrhea, Hiatal Hernia, Gall Bladder Disease Musculoskeletal: Yes Osteoporosis, Arthritis, Fibromyalgia, Rheumatoid Arthritis, Chronic Back Pain Endocrine: Yes Hypothyroidsim HEENT: Yes Glaucoma Cancer: Yes Cervical Did You Recieve Any Treatments: Yes What Type of Treatment Did You: Surgical Intervention Psychosocial: Yes (EXTENSIVE PSYCH ISSUES) Anxiety, Bipolar, Depression Integumentary: No Blood Disorders: No Family Medical History Reviewed Nursing Family Hx No Pertinent Family Hx Physical Exam Vital Signs Vital Signs - First Documented 01/11/20 12:17 Temp 36.9 Pulse 103 Resp 20 B/P (MAP) 146/90 (108) Pulse Ox 100 O2 Delivery Room Air Capillary Refill : Less Than 3 Seconds Height, Weight, BMI Height: 5'2.00" Weight: 125lbs. 0oz. 56.473259cv; 22.00 BMI Method:Stated General Appearance: WD/WN, no apparent distress HEENT: PERRL/EOMI, normal ENT inspection, TMs normal, pharynx normal; No scleral icterus (R), No other (no evidence of nieves sign or raccoon eyes. no hemotympanum) Neck: supple, normal inspection, tender lateral, tender midline, other (trachea midline) Cardiovascular: normal peripheral pulses, regular rate, rhythm, no edema, no gallop, no JVD, no murmur Respiratory: chest non-tender, lungs clear, normal breath sounds, no respiratory distress, no accessory muscle use Peripheral Pulses: 2+ Carotid (R), 2+ Carotid (L), 2+ Dorsalis Pedis (R), 2+ Left Dors-Pedis (L), 2+ Radial Pulses (R), 2+ Radial Pulses (L) Gastrointestinal: normal bowel sounds, non tender, soft, no organomegaly; No distended Back: normal inspection, decreased range of motion, muscle spasm (generalized muscle spasm with tenderness), vertebral tenderness (generalized vertebral tenderness), other (positive scoliosis and kyphosis) Extremities: normal range of motion, non-tender, no pedal edema, normal capillary refill, pelvis stable, other (deformity of the bilateral hands and bilateral feet consistent with rheumatoid arthritis history) 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, no motor/sensory deficits, alert, normal mood/affect, oriented x 3 Skin: normal color, warm/dry [place] Coma Score Best Eye Response: (4) Open Spontaneously Best Verbal Response: (5) Oriented Best Motor Response: (6) Obeys Commands Becki Total: 15 Progress/Results/Core Measures Results/Orders Lab Results Laboratory Tests Test 01/11/20 12:27 Range/Units White Blood Count 10.7 4.3-11.0 10^3/uL Red Blood Count 4.09 L 4.35-5.85 10^6/uL Hemoglobin 11.5 11.5-16.0 G/DL Hematocrit 37 35-52 % Mean Corpuscular Volume 90 80-99 FL Mean Corpuscular Hemoglobin 28 25-34 PG Mean Corpuscular Hemoglobin Concent 31 L 32-36 G/DL Red Cell Distribution Width 15.4 H 10.0-14.5 % Platelet Count 248 130-400 10^3/uL Mean Platelet Volume 10.0 7.4-10.4 FL Neutrophils (%) (Auto) 74 42-75 % Lymphocytes (%) (Auto) 14 12-44 % Monocytes (%) (Auto) 12 0-12 % Eosinophils (%) (Auto) 1 0-10 % Basophils (%) (Auto) 0 0-10 % Neutrophils # (Auto) 7.9 H 1.8-7.8 X 10^3 Lymphocytes # (Auto) 1.5 1.0-4.0 X 10^3 Monocytes # (Auto) 1.3 H 0.0-1.0 X 10^3 Eosinophils # (Auto) 0.1 0.0-0.3 10^3/uL Basophils # (Auto) 0.0 0.0-0.1 10^3/uL Urine Color YELLOW Urine Clarity CLEAR Urine pH 6.0 5-9 Urine Specific [place] 1.020 1.016-1.022 Urine Protein NEGATIVE NEGATIVE Urine Glucose (UA) NEGATIVE NEGATIVE Urine Ketones NEGATIVE NEGATIVE Urine Nitrite NEGATIVE NEGATIVE Urine Bilirubin NEGATIVE NEGATIVE Urine Urobilinogen 0.2 < = 1.0 MG/DL Urine Leukocyte Esterase NEGATIVE NEGATIVE Urine RBC (Auto) NEGATIVE NEGATIVE Urine RBC NONE /HPF Urine WBC NONE /HPF Urine Squamous Epithelial Cells NONE /HPF Urine Crystals NONE /LPF Urine Bacteria NEGATIVE /HPF Urine Casts NONE /LPF Urine Mucus NEGATIVE /LPF Urine Culture Indicated NO Sodium Level 145 135-145 MMOL/L Potassium Level 3.1 L 3.6-5.0 MMOL/L Chloride Level 108 H 98-107 MMOL/L Carbon Dioxide Level 25 21-32 MMOL/L Anion Gap 12 5-14 MMOL/L Blood Urea Nitrogen 14 7-18 MG/DL Creatinine 0.87 0.60-1.30 MG/DL Estimat Glomerular Filtration Rate > 60 BUN/Creatinine Ratio 16 Glucose Level 118 H 70-105 MG/DL Lactic Acid Level 1.87 0.50-2.00 MMOL/L Calcium Level 9.1 8.5-10.1 MG/DL Corrected Calcium 9.5 8.5-10.1 MG/DL Total Bilirubin 1.0 0.1-1.0 MG/DL Aspartate Amino Transf (AST/SGOT) 24 5-34 U/L Alanine Aminotransferase (ALT/SGPT) 18 0-55 U/L Alkaline Phosphatase 91 40-136 U/L Total Creatine Kinase 305 H 29-168 U/L Total Protein 5.8 L 6.4-8.2 GM/DL Albumin 3.5 3.2-4.5 GM/DL My Orders Orders - STEPH FINN Ed Iv/Invasive Line Start (01/11/20 12:22) Ct Head/Cervical Spine Wo (01/11/20 12:22) Cbc With Automated Diff (01/11/20 12:22) Comprehensive Metabolic Panel (01/11/20 12:22) Creatine Kinase (01/11/20 12:22) Lactic Acid Analyzer (01/11/20 12:22) Ua Culture If Indicated (01/11/20 12:22) Ns Iv 1000 Ml (Sodium Chloride 0.9%) (01/11/20 12:22) Fentanyl Injection (Sublimaze Injection (01/11/20 12:22) Ct Thoracic/Lumbar Spine Wo (01/11/20 12:22) Gutierrez Cath (01/11/20 12:25) Medications Given in ED Current Medications Medications Dose Ordered Sig/Mana Route Start Time Stop Time Status Last Admin Dose Admin Sodium Chloride 1,000 ml @ 0 mls/hr Q0M ONCE IV 01/11/20 12:22 01/11/20 12:26 DC 01/11/20 12:34 0 MLS/HR Vital Signs/I&O 01/11/20 01/11/20 12:17 15:31 Temp 36.9 36.8 Pulse 103 104 Resp 20 18 B/P (MAP) 146/90 (108) 168/96 Pulse Ox 100 98 O2 Delivery Room Air Room Air Blood Pressure Mean: 108 Diagnostic Imaging Diagonstic Imaging: CT Plain Films/CT/US/NM/MRI: c-spine, head Comments Date of Exam:01/11/20 CT HEAD/CERVICAL SPINE WO PROCEDURE: CT head and CT cervical spine without contrast. TECHNIQUE: Multiple contiguous axial images were obtained through the brain and cervical spine without the use of in travenous contrast. Sagittal and coronal reformations through the cervical spine were then performed. Auto Exposure Controls were utilized during the CT exam to meet ALARA standards for radiation dose reduction. INDICATION: Head and neck pain after fall. COMPARISON: Comparison made to prior examination 12/25/2019 and 10/22/2019. FINDINGS: There is mild prominence of the ventricles and sulci. There is mild chronic microvascular ischemic disease. There is no hydrocephalus. There is no midline shift. There is no mass, hemorrhage or extra-axial fluid collection. Calvarium is intact. Sinuses and mastoid air cells are clear. Bones are osteopenic. Alignment of the cervical spine is grossly normal. There is some degenerative disc disease at C3-C4, C4-C5, C5-C6 and C6-C7. There is slight anterolisthesis of C4 on C5 which appears to be on a degenerative basis. There is posterior facet arthropathy. There is no fracture or traumatic subluxation. The odontoid is intact and the lateral masses are well aligned. Prevertebral soft tissues are within normal limits. Lung apices are clear. IMPRESSION: Atrophy and some chronic microvascular ischemic disease however no acute intracranial abnormality. Cervical spondylosis and degenerative disc disease without acute fracture or traumatic subluxation. Dictated on workstation # [id number] Reviewed: Reviewed by Me (radiology report reviewed by me) Diagonstic Imaging: CT Plain Films/CT/US/NM/MRI: other (thoracic and lumbar spine) Comments Date of Exam:01/11/20 CT THORACIC/LUMBAR SPINE WO PROCEDURE: CT thoracic and lumbar spine without contrast. TECHNIQUE: Multiple contiguous axial images were obtained through the thoracic and lumbar spine without the use of intravenous contrast. Sagittal and coronal reformations were then performed. All CT scans use one or more of the following dose optimizing techniques: automated exposure control, MA and/or KvP adjustment based on a patient size and exam type, or iterative reconstruction. INDICATION: Fall with back pain. FINDINGS: The bones are diffusely osteopenic. The thoracic vertebral body heights are well- maintained. There are degenerative changes. There is no bony encroachment upon the spinal canal. There is degenerative rotoscoliosis of the lower thoracic and lumbar spine. Lumbar vertebral body heights are well-maintained. There is no spondylolysis or spondylolisthesis. There is multilevel degenerative disc disease and lower lumbar hypertrophic degenerative facet disease. There is no acute fracture or traumatic subluxation. There is patchy infiltrate in the right lung base. Visualized lungs are otherwise clear. IMPRESSION: Osteopenia and moderately severe diffuse thoracolumbar spondylosis. There is multilevel degenerative disc disease in the lumbar spine as well as lower lumbar hypertrophic degenerative facet disease. Findings could be better evaluated with MRI. No acute fracture or traumatic subluxation. Dictated on workstation # [id number] Reviewed: Reviewed by Me (radiology report reviewed by me) Focused Exam Lactate Level 01/11/20 12:27: Lactic Acid Level 1.87 Lactic Acid Level Laboratory Tests Test 01/11/20 12:27 Lactic Acid Level 1.87 MMOL/L (0.50-2.00) Departure Communication (Admissions) Patient seen and evaluated. CT head/cervical spine and CT thoracic/lumbar spine obtained. Patient given 25 g of fentanyl and 1 L normal saline. Urinalysis obtained as well as initial blood work. 1400 c-collar removed. Patient is noted to have full range of motion of the neck. Patient does report improvement in pain with the fentanyl 25 g. All diagnostic and laboratory findings discussed with the patient. We'll plan for discharge to home. Patient given a prescription for potassium chloride 20 mEq by mouth twice a day for 3 days. Patient instructed to follow-up with her primary care provider for recheck as an outpatient early this week. She will call for an appointment time tomorrow morning. Patient instructed to return immediately to the emergency department for worsened symptoms or any other concerns. Impression Primary Impression: Minor closed head injury Additional Impressions: Acute exacerbation of chronic low back pain acute on chronic neck pain Hypokalemia Disposition: 01 HOME, SELF-CARE Condition: Improved Departure-Patient Inst. Decision time for Depature: 14:11 Referrals: MAC HANDY MD (PCP/Family) Primary Care Physician Patient Instructions: Low Back Pain (DC), Minor Head Injury, Neck Pain Add. Discharge Instructions: All discharge instructions reviewed with patient and/or family. Voiced understanding. Continue usual home medications. Tylenol [id number] as directed for pain. If you've fall again, use the life alert button to notify someone of the fall. You may use an ice pack for 20 minute intervals as needed for pain for 2-3 days, then use a heating pad or pack as needed. Follow-up with Dr. Sales the this week for recheck. He may decide to schedule an outpatient MRI to further evaluate the upper and lower back. Call his office Sunday morning for appointment time. Contact your surgeon at to notify him of the fall this . Return to the emergency department for worsened pain, dizziness, changes in vision, slurred speech, confusion, neck pain, back pain, shortness of air, chest pain, weakness, vomiting, seizure, bowel incontinence, bladder incontinence, or any other concerns. Scripts Potassium Chloride (Potassium Chloride) 20 Meq Tablet.er 20 MEQ PO BID for 3 Days, #6 TAB 0 Refills Prov: STEPH FINN 01/11/20 STEPH FINN Jan 11, 2020 13:23
--- NOTE | 2020-01-11 13:49 | Diagnostic Imaging Report ---
PROCEDURE: CT head and CT cervical spine without contrast. TECHNIQUE: Multiple contiguous axial images were obtained through the brain and cervical spine without the use of intravenous contrast. Sagittal and coronal reformations through the cervical spine were then performed. Auto Exposure Controls were utilized during the CT exam to meet ALARA standards for radiation dose reduction. INDICATION: Head and neck pain after fall. COMPARISON: Comparison made to prior examination 12/25/2019 and 10/22/2019. FINDINGS: There is mild prominence of the ventricles and sulci. There is mild chronic microvascular ischemic disease. There is no hydrocephalus. There is no midline shift. There is no mass, hemorrhage or extra-axial fluid collection. Calvarium is intact. Sinuses and mastoid air cells are clear. Bones are osteopenic. Alignment of the cervical spine is grossly normal. There is some degenerative disc disease at C3-C4, C4-C5, C5-C6 and C6-C7. There is slight anterolisthesis of C4 on C5 which appears to be on a degenerative basis. There is posterior facet arthropathy. There is no fracture or traumatic subluxation. The odontoid is intact and the lateral masses are well aligned. Prevertebral soft tissues are within normal limits. Lung apices are clear. IMPRESSION: Atrophy and some chronic microvascular ischemic disease however no acute intracranial abnormality. Cervical spondylosis and degenerative disc disease without acute fracture or traumatic subluxation. Dictated by: Dictated on workstation # [id number]
--- NOTE | 2020-01-11 13:53 | Diagnostic Imaging Report ---
PROCEDURE: CT thoracic and lumbar spine without contrast. TECHNIQUE: Multiple contiguous axial images were obtained through the thoracic and lumbar spine without the use of intravenous contrast. Sagittal and coronal reformations were then performed. All CT scans use one or more of the following dose optimizing techniques: automated exposure control, MA and/or KvP adjustment based on a patient size and exam type, or iterative reconstruction. INDICATION: Fall with back pain. FINDINGS: The bones are diffusely osteopenic. The thoracic vertebral body heights are well-maintained. There are degenerative changes. There is no bony encroachment upon the spinal canal. There is degenerative rotoscoliosis of the lower thoracic and lumbar spine. Lumbar vertebral body heights are well-maintained. There is no spondylolysis or spondylolisthesis. There is multilevel degenerative disc disease and lower lumbar hypertrophic degenerative facet disease. There is no acute fracture or traumatic subluxation. There is patchy infiltrate in the right lung base. Visualized lungs are otherwise clear. IMPRESSION: Osteopenia and moderately severe diffuse thoracolumbar spondylosis. There is multilevel degenerative disc disease in the lumbar spine as well as lower lumbar hypertrophic degenerative facet disease. Findings could be better evaluated with MRI. No acute fracture or traumatic subluxation. Dictated by: Dictated on workstation # [id number]
[2020-01-11] MEDS ORDERED: POTA-51 PO (14:42)
[2020-01-11 15:31] VITALS: BP 168/96
== END 2020-01-11 15:36 | disposition home or self-care (01) ==
LOC: EDUNIT# 12:13 → ER 12:14
DX: S09.90XA Unspecified injury of head, initial encounter (principal); M54.5 Low back pain; M54.2 Cervicalgia; G89.29 Other chronic pain; E87.6 Hypokalemia; J44.9 Chronic obstructive pulmonary disease, unspecified; I10 Essential (primary) hypertension; E78.00 Pure hypercholesterolemia, unspecified; E03.9 Hypothyroidism, unspecified; F41.9 Anxiety disorder, unspecified; F31.9 Bipolar disorder, unspecified; R40.2142 Coma scale, eyes open, spontaneous, at arrival to emergency department; R40.2252 Coma scale, best verbal response, oriented, at arrival to emergency department; R40.2362 Coma scale, best motor response, obeys commands, at arrival to emergency department; Z87.891 Personal history of nicotine dependence; Z88.2 Allergy status to sulfonamides; Z85.41 Personal history of malignant neoplasm of cervix uteri; W18.39XA Other fall on same level, initial encounter; Y92.009 Unspecified place in unspecified non-institutional (private) residence as the place of occurrence of the external cause
CPT/HCPCS: 36415; 51702; 70450; 72125; 72128; 72131; 80053; 81000; 82550; 83605; 85025

== ENCOUNTER 2020-05-29 11:01 | Emergency (ER) | payer MEDICARE, MEDICAID ==
[~2020-05-29] VITALS: Ht 157.4 cm; Wt 68.1 kg
[~2020-05-29 11:01] MED LIST changes: +POTA-51 PO
--- OUTSIDE RECORDS SUMMARY | 2020-05-29 11:09 | XMS REPORT | Summary of Care ---
Author Author [employer] Organization [employer] Address Unknown Phone Unavailable Encounter [facility] [place] [id number] Date(s): 01/21/20 - 01/23/20 [employer] [address] [id number] Encounter Diagnosis Rectal prolapse (Discharge Diagnosis) - 01/21/20 Rectocele, female (Discharge Diagnosis) - 01/21/20 Discharge Disposition: Home W/ Home Health Svcs - 06 Attending Physician: SERGIO HALL MD Admitting Physician: SERGIO HALL MD Referring Physician: SERGIO HALL MD Vital Signs Most recent to 1 oldest [Reference Range]: Vital Signs Pre Procedure Status/Type (01/21/20 11:00 AM) Temperature 98 DegF [96.8-99.7 DegF] (01/23/20 7:21 AM) Temp Method Oral (01/23/20 7:21 AM) Heart Rate 80 bpm (01/23/20 7:22 AM) Heart Rate Location Auto BP, Continuous Neurocritical Care Physician (01/21/20 3:40 PM) Pulse Equipment SPO2 (01/23/20 7:22 AM) Respiratory Rate 17 br/min [15-20 br/min] (01/23/20 7:22 AM) Blood Pressure 149/86 mmHg [90-180/50-90 mmHg] (01/23/20 7:21 AM) NIBP MAP [65 mmHg] 101 mmHg (01/23/20 7:21 AM) NIBP MAP Calc [65 109 mmHg mmHg] (01/23/20 12:00 AM) NIBP Alarms set and Yes on (01/21/20 3:40 PM) BP Location Arm, right (01/23/20 7:22 AM) NIBP Method Automatic (01/21/20 3:40 PM) BP Cuff Size Large (01/21/20 3:40 PM) Heart Rhythm Sinus/atrial rhythm Interpretation (01/21/20 3:40 PM) Defibrilator Vest Yes (01/21/20 11:00 AM) Problem List Condition Effective Dates Status Health Status Informan t COPD (chronic Active obstructive pulmonary disease)(Confirmed) Hypertension(Confirm Active ed) Allergies, Adverse Reactions, Alerts Substance Reaction Severity Status Sulfa drugs1 Active 1vomiting/diarrhea Medications albuterol inhaler 1 Puff, 4 times a day, PRN Shortness of Breath or Wheezing, 0 Refill(s), Indicat ion: Breathing Difficulty Start Date: 01/16/20 Status: Ordered ALPRAZolam 0.25 mg oral tablet 1 TAB, PO, Daily, PRN as needed for anxiety, 0 Refill(s), MAY TAKE DOS, Indicati on: Anxiety Start Date: 01/16/20 Status: Ordered Cymbalta 30 mg, PO, Daily, 0 Refill(s), Indication: Nerve Pain Start Date: 01/16/20 Status: Ordered gabapentin 300 mg oral capsule 1 CAP, PO, BID (2 times a day), 0 Refill(s), Indication: Nerve Pain Start Date: 01/16/20 Status: Ordered Hair, Skin, & Nails Gummies 2 gummies, Chewed, Daily, 0 Refill(s), Indication: Vitamin Supplement Start Date: 01/16/20 Status: Ordered Imitrex 100 mg oral tablet 0.5 TAB, PO, Daily, PRN as needed for migraine headache, 0 Refill(s), may take u p to 200mg per day, Indication: Migraine Start Date: 01/16/20 Status: Ordered K-Dur 20 mEq, BID (2 times a day), 0 Refill(s), Indication: Low Potassium Start Date: 01/16/20 Status: Ordered Metoprolol Succinate ER 25 mg oral tablet, extended release 2 TAB, PO, Daily, 0 Refill(s), Indication: High Blood Pressure Start Date: 01/16/20 Status: Ordered ondansetron 4 mg oral tablet 1 TAB, PO, Q6H (Every 6 hours), PRN Nausea/Vomiting, 0 Refill(s), Indication: Na usea/Vomiting Start Date: 01/16/20 Status: Ordered Protonix 40 mg oral delayed release tablet 1 TAB, PO, Daily, 0 Refill(s), Indication: Reflux Start Date: 01/16/20 Status: Ordered Synthroid 75 mcg, PO, Daily, 0 Refill(s), Indication: Thyroid Disorder Start Date: 01/16/20 Status: Ordered traMADol 50 mg oral tablet 2 TAB, PO, Q6H (Every 6 hours), PRN as needed for pain, 0 Refill(s), Indication: Pain Start Date: 01/16/20 Status: Ordered Vitamin D3 2 gummies, Chewed, Daily, 0 Refill(s), Indication: Vitamin Supplement Start Date: 01/16/20 Status: Ordered Results Most recent to 1 oldest [Reference Range]: Est CrCL (CG) 50.8 mL/min 1 *NA* (01/23/20 7:35 AM) Glucose [70-100 105 mg/dL mg/dL] *HI* (01/23/20 7:35 AM) Neutrophils Abs 5.5 x10'3/microL [1.4-7.2 (01/21/20 10:50 AM) x10'3/microL] Lymphocytes Abs 2.5 x10'3/microL [1.2-3.4 (01/21/20 10:50 AM) x10'3/microL] Monocytes Abs 1.1 x10'3/microL [0.1-0.6 *HI* x10'3/microL] (01/21/20 10:50 AM) Eosinophils Abs 0.1 x10'3/microL [0.0-0.5 (01/21/20 10:50 AM) x10'3/microL] Basophils Abs 0.0 x10'3/microL [0.0-0.2 (01/21/20 10:50 AM) x10'3/microL] ABORh O POS *Unknown* (01/21/20 10:50 AM) ABSC Gel Interp Negative (01/21/20 10:50 AM) GFR (CKD-EPI) 85.6 mL/min/1.73 m2 2 [>=60.0 mL/min/1.73 (01/23/20 7:35 AM) m2] Immature 0 % Granulocytes % [0-0 (01/21/20 10:50 AM) %] Immature Grans Abs 0.0 x10'3/microL [0.0-0.0 (01/21/20 10:50 AM) x10'3/microL] AGAP [3-16 mmol/L] 12 mmol/L (01/23/20 7:35 AM) Albumin Level 3.8 g/dL [3.5-5.2 g/dL] (01/21/20 10:50 AM) Alk Phos [40-130 102 Inter. Units/L Inter. Units/L] (01/21/20 10:50 AM) ALT(SGPT) [0-33 14 Inter. Units/L Inter. Units/L] (01/21/20 10:50 AM) AST [0-40 Units/L] 17 Units/L (01/21/20 10:50 AM) Basophils % [0-3 %] 0 % (01/21/20 10:50 AM) Bili Total [0.0-1.2 0.6 mg/dL mg/dL] (01/21/20 10:50 AM) BUN [8-20 mg/dL] 4 mg/dL *LOW* (01/23/20 7:35 AM) Calcium [8.6-10.2 9.1 mg/dL mg/dL] (01/23/20 7:35 AM) Chloride [98-107 107 mmol/L mmol/L] (01/23/20 7:35 AM) CO2 [22-29 mmol/L] 25 mmol/L (01/23/20 7:35 AM) Creatinine [0.7-1.2 0.7 mg/dL mg/dL] (01/23/20 7:35 AM) Eosinophils % [0-7 1 % %] (01/21/20 10:50 AM) Hct [35-47 %] 35 % (01/23/20 7:35 AM) Hgb [12.0-16.0 g/dL] 10.9 g/dL *LOW* (01/23/20 7:35 AM) INR 1.1 *NA* (01/21/20 10:50 AM) Lymphocytes % [13-43 27 % %] (01/21/20 10:50 AM) Magnesium [1.6-2.6 1.9 mg/dL mg/dL] (01/21/20 10:50 AM) MCH [27-34 pg] 28 pg (01/23/20 7:35 AM) MCHC [30-36 g/dL] 31 g/dL (01/23/20 7:35 AM) MCV [81-99 fL] 90 fL (01/23/20 7:35 AM) Monocytes % [0-13 %] 11 % (01/21/20 10:50 AM) MPV [8.3-12.4 fL] 10.5 fL (01/23/20 7:35 AM) Neutrophils % [44-76 60 % %] (01/21/20 10:50 AM) Platelet [140-400 205 x10'3/microL x10'3/microL] (01/23/20 7:35 AM) Potassium [3.5-5.1 4.2 mmol/L mmol/L] (01/23/20 7:35 AM) PT [11.5-15.0 14.0 second second] (01/21/20 10:50 AM) RBC [3.90-5.60 3.93 x10'6/microL x10'6/microL] (01/23/20 7:35 AM) RDW [<=16.4 %] 15.1 % (01/23/20 7:35 AM) Sodium [136-145 144 mmol/L mmol/L] (01/23/20 7:35 AM) Total Protein 6.2 g/dL [6.6-8.7 g/dL] *LOW* (01/21/20 10:50 AM) WBC [4.0-11.0 7.8 x10'3/microL x10'3/microL] (01/23/20 7:35 AM) ABORh RR Interp O POS *Unknown* (01/21/20 11:43 AM) 1Result Comment: Estimated Creatinine Clearance calculated based on Cockcroft-Gault formula using: Height 158 Weight 56 Estimated Creatinine Clearance Cockcroft Gault is utilized by the Pharmacy to as sist in determining medication dosage based on kidney function. Multiple factors determine normal ranges, please contact the Pharmacy with questions. 2Result Comment: GFR calculated based on CKD-EPI Creatinine Equation (2009). Age(years) Average GFR 20-29 116 mL/min/1.73 m^2 30-39 107 mL/min/1.73 m^2 40-49 99 mL/min/1.73 m^2 50-59 93 mL/min/1.73 m^2 60-69 85 mL/min/1.73 m^2 70+ 75 mL/min/1.73 m^2 Acceptable GFR =>60 mL/min/1.73 m^2 Chronic Kidney Disease <60 mL/min/1.73 m^2 Kidney Failure <15 mL/min/1.73 m^2 Immunizations No data available for this section Procedures No data available for this section Social History Social History Type Response Functional Status No data available for this section Assessment and Plan No data available for this section Hospital Discharge Instructions No data available for this section
--- OUTSIDE RECORDS SUMMARY | 2020-05-29 11:10 | XMS REPORT | Continuity of Care Document ---
Author Author dermSearchMARY JANE Organization [employer] Address Unknown Phone Unavailable Care Team Providers Care Recreational Director Name Role Phone [facility] [employer] Unavailable Unavailable Problems Problem Status Onset Date Classification Date Reported Comments Source RECTAL PROLAPSE Active 01/23/2020 [facility] CROHN'S DISEASE, UNSPECIFIED, WITHOUT CO Active 01/23/2020 [facility] HYPOKALEMIA Active 01/23/2020 [facility] ESSENTIAL (PRIMARY) HYPERTENSION Active 01/23/2020 [facility] CHRONIC OBSTRUCTIVE PULMONARY DISEASE, U Active 01/23/2020 [facility] FIBROMYALGIA Active 01/23/2020 [facility] DISORDER OF THYROID, UNSPECIFIED Active 01/23/2020 [facility] MIGRAINE, UNSPECIFIED, NOT INTRACTABLE, Active 01/23/2020 [facility] HORMONE REPLACEMENT THERAPY Ac tive 01/23/2020 [facility] 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 Active 01/23/2020 [facility] PERSONAL HISTORY OF NICOTINE DEPENDENCE Active 01/23/2020 [facility] Rectal prolapse 01/21/2020 Discharge Diagnosis 01/24/2020 [facility] Rectocele 0 01/21/2020 Discharge Diagnosis 01/24/2020 [facility] [employer] Chronic obstructive lung disease (disorder) Active Problem 01/24/2020 [facility] Hypertensive disorder, systemic arterial (disorder) Active Problem 01/24/2020 [facility] Medications Medication Details Route Status Patient Instructions Ordering Provider Order Date Source Hair, Skin, & Nails Gummies 2 gummies, Chewed, Daily, 0 Refill(s), Indication: Vitamin Supplement Active 01/16/2020 [facility] Vitamin D3 2 gummies, Chewed, Daily, 0 Refill(s), Indication: Vitamin Supplement Active 01/16/2020 [facility] Albuterol 0.09 MG/ACTUAT Metered Dose Inhaler 1 Puff, 4 times a day, PRN Shortness of Breath or Wheezing, 0 Refill(s), Indication: Breathing Difficulty Active 01/16/2020 [facility] Potassium Chloride 20 mEq, BID (2 times a day), 0 Refill(s), Indication: Low Potassium Active 01/16/2020 [facility] Cymbalta 30 mg, PO, Daily, 0 R efill(s), Indication: Nerve Pain Active 01/16/2020 [facility] Metoprolol Succinate ER 25 mg oral table t, extended release 2 TAB, PO, Daily, 0 Refill(s), Indicatio n: High Blood Pressure Active 01/16/2020 [facility] pantoprazole 40 MG Enteric Coated Tablet [Protonix] 1 TAB, PO, Daily, 0 Refill(s), Indication: Reflux Active 01/16/2020 [facility] gabapentin 300 MG Oral Capsule 1 CAP, PO, BID (2 times a day), 0 Refill(s), Indication: Nerve Pain Active 01/16/2020 [facility] Synthroid 75 mcg, PO, Daily, 0 Refill(s), Indication: Thyroid Disorder Active 01/16/2020 [facility] ondansetron 4 mg oral tablet 1 TAB, PO, Q6H (Every 6 hours), PRN Nausea/Vomiting, 0 Refill(s), Indication: Nausea/Vomiting Active 01/16/2020 [facility] Sumatriptan 100 MG Oral Tablet [Imitrex] 0.5 TAB, PO, Daily, PRN as needed for migraine headache, 0 Refill(s), may take up to 200mg per day, Indication: Migraine Active 01/16/2020 [facility] tramadol hydrochloride 50 MG Oral Tablet 2 TAB, PO, Q6H (Every 6 hours), PRN as needed for pain, 0 Refill(s), Indication: Pain Active 01/16/2020 [facility] Alprazolam 0.25 MG Oral Tablet 1 TAB, PO, Daily, PRN as needed for anxiety, 0 Refill(s), MAY TAKE DOS, Indication: Anxiety Active 01/16/2020 [facility] Allergies, Adverse Reactions, Alerts Substance Category Reaction Severity Reaction type Status Date Reported Comments Source Sulfa drugs<sup>1</sup> Assert ion Drug aller gy Active vomiting/diarrhea [facility] Immunizations No Data Provided for This Section Results Order Name Results Value Reference Range Date Interpretation Comments Source CHEMISTRY CO2 25 mmol/L 22 - 29 01/23/2020 [facility] CHEMISTRY Glucose 105 mg/dL 70 - 100 01/23/2020 [facility] CHEMISTRY BUN 4 mg/dL 8 - 20 01/23/2020 [facility] CHEMISTRY Creatinine 0.7 mg/dL 0.7 - 1.2 01/23/2020 [facility] CHEMISTRY Calcium 9.1 mg/dL 8.6 - 10.2 01/23/2020 [facility] CHEMISTRY AGAP 12 mmol/L 3 - 16 01/23/2020 [facility] CHEMISTRY Sodium 144 mmol/L 136 - 145 01/23/2020 [facility] CHEMISTRY Potassium 4.2 mmol/L 3.5 - 5.1 01/23/2020 [facility] CHEMISTRY Chloride 107 mmol/L 98 - 107 01/23/2020 [facility] CHEMISTRY GFR (CKD-EPI) 85.6 m L/min/1.73 m2 >=60.0 mL/min/1.73 m2 01/23/20 Result Comment: GFR calculat ed based on CKD-EPI Creatinine Equation (2009).
Age(years) Average GFR
20-29 116 mL/min/1.73 m^2
30-39 107 mL/min/1.73 m^2
40-49 99 mL/min/1.73 m^2
50-59 93 mL/min/1.73 m^2
60-69 85 mL/min/1.73 m^2
70+ 75 mL/min/1.73 m^2
&lt ;br/>Acceptable GFR =>60 mL/min/1.73 m^2
Chronic Kidney Disease <60 mL/min/1.73 m^2
Kidney Failure <15 mL/min/1.73 m^2 [facility] CHEMISTRY Est CrCL (CG) 50.8 m L/min 01/23/2020 Result Comment: Estimated Creatinine Gibran arance calculated based on Cockcroft-Gault formula using:

Height 158

Weight 56

Estimated Creatinine Clearance Cockcroft Gault is utilized by the Pharmacy to assist in determining medication dosage based on kidney function. Multiple factors determine normal ranges, please contact the Pharmacy with questions. [facility] HEMATOLOGY WBC 7.8 x 10'3/microL 4.0 - 11.0103 01/23/2020 [facility] HEMATOLOGY RBC 3.93 x10'6/microL 3.90 - 5.33567 01/23/2020 [facility] HEMATOLOGY Hgb 10.9 g/dL 12.0 - 16.0 01/23/2020 [facility] HEMATOLOGY Hct 35 % 35 - 47 01/23/2020 [facility] HEMATOLOGY MCV 90 fL 81 - 99 01/23/2020 [facility] HEMATOLOGY MCH 28 pg 27 - 34 01/23/2020 [facility] HEMATOLOGY MCHC 31 g/dL 30 - 36 01/23/2020 [facility] HEMATOLOGY RDW 15.1 % <=16.4 % 01/23/2020 [facility] HEMATOLOGY Platelet 205 x 10'3/microL 140 - [id number] 01/23/2020 [facility] HEMATOLOGY MPV 10.5 fL 8.3 - 12.4 01/23/2020 [facility] Est CrCl (CG) Est CrCL (CG) 50 .8 mL/min 01/23/2020 NA Estimated Creatinine Clearance calculate d based on Cockcroft- Gault formula using:
Height 158
Weight 56
Estimated Creatinine Clearance Cockcroft Gault is utilized by the Pharmacy to assist in determining medication dosage based on kidney function. Multiple factors determine normal ranges, please contact the Pharmacy with questions.
[facility] Renal Funct Index GFR (CKD-EPI) 85.6 mL/min/1.73 m2 >=60.0 01/23/2020 N GFR calculated based on CKD- EPI Creatinine Equation (2009).
Age(years) Average GFR
20-29 116 mL/min/1.73 m^2
30-39 107 mL/min/1.73 m^2
40-49 99 mL/min/1.73 m^2
50-59 93 mL/min/1.73 m^2
60-69 85 mL/min/1.73 m^2
70+ 75 mL/min/1.73 m^2

Acceptable GFR =>60 mL/min/1.73 m^2
Chronic Kidney Disease <60 mL/min/1.73 m^2
Kidney Failure <15 mL/min/1.73 m^2
[facility] BMP CO2 25 mmol/L 22 - 29 01/23/2020 N [facility] BMP AGAP 12 mmol/L 3 - 16 01/23/2020 N [facility] BMP Glucose 105 mg/dL 70 - 100 01/23/2020 H [facility] BMP BUN 4 mg/dL 8 - 20 01/23/2020 L [facility] BMP Creatinine 0.7 mg/dL 0.7 - 1.2 01/23/2020 N The presence of ketone bodies can cause artificially high results in serum, plasma and urine.
[facility] BMP Calcium 9.1 mg/dL 8.6 - 10.2 01/23/2020 N [facility] BMP Sodium 144 mmol/L 136 - 145 01/23/2020 N [facility] BMP Potassium 4.2 mmol/L 3.5 - 5.1 01/23/2020 N [facility] BMP Chloride 107 mmol/L 98 - 107 01/23/2020 N [facility] CBC WBC 7.8 x10'3/microL 4.0 - 11.0 01/23/2020 N [facility] CBC RBC 3.93 x10'6/microL 3.90 - 5.60 01/23/2020 N [facility] CBC Hgb 10.9 g/dL 12.0 - 16.0 01/23/2020 L [facility] CBC Hct 35 % 35 - 47 01/23/2020 N [facility] CBC MCV 90 fL 81 - 99 01/23/2020 N [facility] CBC MCH 28 pg 27 - 34 01/23/2020 N [facility] CBC MCHC 31 g/dL 30 - 36 01/23/2020 N [facility] CBC RDW 15.1 % - <=16.4 01/23/2020 N [facility] CBC Platelet 205 x10'3/microL 140 - 400 01/23/2020 N [facility] CBC MPV 10.5 fL 8.3 - 12.4 01/23/2020 N [facility] Renal Funct Index GFR (CKD-EPI) 71.7 mL/min/1.73 m2 >=60.0 01/22/2020 N GFR calculated based on CKD- EPI Creatinine Equation (2009).
Age(years) Average GFR
20-29 116 mL/min/1.73 m^2
30-39 107 mL/min/1.73 m^2
40-49 99 mL/min/1.73 m^2
50-59 93 mL/min/1.73 m^2
60-69 85 mL/min/1.73 m^2
70+ 75 mL/min/1.73 m^2

Acceptable GFR =>60 mL/min/1.73 m^2
Chronic Kidney Disease <60 mL/min/1.73 m^2
Kidney Failure <15 mL/min/1.73 m^2
[facility] Est CrCl (CG) Est CrCL (CG) 49 .5 mL/min 01/22/2020 NA Estimated Creatinine Clearance calculate d based on Cockcroft- Gault formula using:
Height 158
Weight 56
Estimated Creatinine Clearance Cockcroft Gault is utilized by the Pharmacy to assist in determining medication dosage based on kidney function. Multiple factors determine normal ranges, please contact the Pharmacy with questions.
[facility] BMP CO2 24 mmol/L 22 - 29 01/22/2020 N [facility] BMP AGAP 11 mmol/L 3 - 16 01/22/2020 N [facility] BMP Glucose 110 mg/dL 70 - 100 01/22/2020 H [facility] BMP BUN 7 mg/dL 8 - 20 01/22/2020 L [facility] BMP Creatinine 0.8 mg/dL 0.7 - 1.2 01/22/2020 N The presence of ketone bodies can cause artificially high results in serum, plasma and urine.
[facility] BMP Calcium 8.3 mg/dL 8.6 - 10.2 01/22/2020 L [facility] BMP Sodium 142 mmol/L 136 - 145 01/22/2020 N [facility] BMP Potassium 4.2 mmol/L 3.5 - 5.1 01/22/2020 N [facility] BMP Chloride 107 mmol/L 98 - 107 01/22/2020 N [facility] CBC WBC 10.7 x10'3/microL 4.0 - 11.0 01/22/2020 N [facility] CBC RBC 3.67 x10'6/microL 3.90 - 5.60 01/22/2020 L [facility] CBC Hgb 10.4 g/dL 12.0 - 16.0 01/22/2020 L [facility] CBC Hct 34 % 35 - 47 01/22/2020 L [facility] CBC MCV 92 fL 81 - 99 01/22/2020 N [facility] CBC MCH 28 pg 27 - 34 01/22/2020 N [facility] CBC MCHC 31 g/dL 30 - 36 01/22/2020 N [facility] CBC RDW 15.4 % - <=16.4 01/22/2020 N [facility] CBC Platelet 213 x10'3/microL 140 - 400 01/22/2020 N [facility] CBC MPV 10.3 fL 8.3 - 12.4 01/22/2020 N [facility] Magnesium Magnesium 1.9 mg/dL 1.6 - 2.6 01/21/2020 N Critical High for OB Patients >=7.0 mg/d l.
[facility] BLOOD BANK ABORh RR Interp O POS 01/21/2020 [facility] BLOOD BANK ABORh O POS,O POS 01/21/2020 [facility] BLOOD BANK ABSC Gel Interp Negat alyssa
(01/21/20 10:50 AM) 01/21/2020 [facility] CHEMISTRY Magnesium 1.9 mg/dL 1.6 - 2.6 01/21/2020 [facility] CHEMISTRY Total Protein 6.2 g/ dL 6.6 - 8.7 01/21/2020 [facility] CHEMISTRY Albumin Level 3.8 g/ dL 3.5 - 5.2 01/21/2020 [facility] CHEMISTRY Bili Total 0.6 mg/dL 0.0 - 1.2 01/21/2020 [facility] CHEMISTRY Alk Phos 102 [iU]/d 40 - 130. 01/21/2020 [facility] CHEMISTRY AST 17 Units/L 0 - 40 01/21/2020 [facility] CHEMISTRY ALT(SGPT) 14 [iU]/d 0 - 33. 01/21/2020 [facility] HEMATOLOGY PT 14.0 s 11.5 - 15.0 01/21/2020 [facility] HEMATOLOGY INR 1.1 01/21/2020 [facility] HEMATOLOGY Neutrophils % 60 % 44 - 76 01/21/2020 [facility] HEMATOLOGY Immature Granulocytes % 0 % 0 - 0 01/21/2020 [facility] HEMATOLOGY Lymphocytes % 27 % 13 - 43 01/21/2020 [facility] HEMATOLOGY Monocytes % 11 % 0 - 13 01/21/2020 [facility] HEMATOLOGY Eosinophils % 1 % 0 - 7 01/21/2020 [facility] HEMATOLOGY Basophils % 0 % 0 - 3 01/21/2020 [facility] HEMATOLOGY Neutrophils Abs 5.5 x 10'3/microL 1.4 - 7.2103 01/21/2020 [facility] HEMATOLOGY Immature Grans Abs 0.0 x 10'3/microL 0.0 - 0.0103 01/21/2020 [facility] HEMATOLOGY Lymphocytes Abs 2.5 x 10'3/microL 1.2 - 3.4103 01/21/2020 [facility] HEMATOLOGY Monocytes Abs 1.1 x 10'3/microL 0.1 - 0.6103 01/21/2020 [facility] HEMATOLOGY Eosinophils Abs 0.1 x 10'3/microL 0.0 - 0.5103 01/21/2020 [facility] HEMATOLOGY Basophils Abs 0.0 x 10'3/microL 0.0 - 0.2103 01/21/2020 [facility] ABORh Recheck w Reverse ABORh RR Int erp O POS 01/21/2020 NA [facility] ABSC 2 Cell Gel ABSC Gel Interp NEG 01/21/2020 N [facility] CMP Sodium 149 mmol/L 136 - 145 01/21/2020 H [facility] CMP Potassium 2.8 mmol/L 3.5 - 5.1 01/21/2020 CRIT [facility] CMP Chloride 104 mmol/L 98 - 107 01/21/2020 N [facility] CMP AGAP 17 mmol/L 3 - 16 01/21/2020 H [facility] Renal Funct Index GFR (CKD-EPI) 60.8 mL/min/1.73 m2 >=60.0 01/21/2020 N GFR calculated based on CKD- EPI Creatinine Equation (2009).
Age(years) Average GFR
20-29 116 mL/min/1.73 m^2
30-39 107 mL/min/1.73 m^2
40-49 99 mL/min/1.73 m^2
50-59 93 mL/min/1.73 m^2
60-69 85 mL/min/1.73 m^2
70+ 75 mL/min/1.73 m^2

Acceptable GFR =>60 mL/min/1.73 m^2
Chronic Kidney Disease <60 mL/min/1.73 m^2
Kidney Failure <15 mL/min/1.73 m^2
[facility] Est CrCl (CG) Est CrCL (CG) 43 .2 mL/min 01/21/2020 NA Estimated Creatinine Clearance calculate d based on Cockcroft- Gault formula using:
Height 158
Weight 56
Estimated Creatinine Clearance Cockcroft Gault is utilized by the Pharmacy to assist in determining medication dosage based on kidney function. Multiple factors determine normal ranges, please contact the Pharmacy with questions.
[facility] CMP CO2 28 mmol/L 22 - 29 01/21/2020 N [facility] CMP Glucose 87 mg/dL 70 - 100 01/21/2020 N [facility] CMP BUN 11 mg/dL 8 - 20 01/21/2020 N [facility] CMP Creatinine 0.9 mg/dL 0.7 - 1.2 01/21/2020 N The presence of ketone bodies can cause artificially high results in serum, plasma and urine.
[facility] CMP Calcium 9.0 mg/dL 8.6 - 10.2 01/21/2020 N [facility] CMP Total Protein 6.2 g/dL 6.6 - 8.7 01/21/2020 L [facility] CMP Albumin Level 3.8 g/dL 3.5 - 5.2 01/21/2020 N [facility] CMP Bili Total 0.6 mg/dL 0.0 - 1.2 01/21/2020 N Samples containing indocyanine green mus t not be measured.
No significant interference from immunoglobulins up to a concentration of 28 g/L (187 umol/L).
[facility] CMP Alk Phos 102 Inter. U nits/L 40 - 130 01/21/2020 N [facility] CMP AST 17 Units/L 0 - 40 01/21/2020 N [facility] [place] [facility] CMP ALT(SGPT) 14 Inter. Un its/L 0 - 33 01/21/2020 N [facility] [place] [facility] Protime PT 14.0 second 11.5 - 15.0 01/21/2020 N [facility] [place] [facility] Protime INR 1.1 01/21/2020 NA [facility] [place] [facility] Auto Diff Neutrophils 60 % 44 - 76 01/21/2020 N [facility] [place] [facility] Auto Diff Lymphocytes % 27 % 13 - 43 01/21/2020 N [facility] [place] [facility] Auto Diff Monocytes % 11 % 0 - 13 01/21/2020 N [facility] [place] [facility] Auto Diff Eosinophils % 1 % 0 - 7 01/21/2020 [facility] Auto Diff Basophils % 0 % 0 - 3 01/21/2020 [facility] Diff Immature Granulocytes % 0 % 0 - 0 01/21/2020 N [facility] Auto Diff Neutro Absolute 5.5 x1 0'3/microL 1.4 - 7.2 01/21/2020 N [facility] [place] [facility] Auto Diff Lymph Absolute 2.5 x1 0'3/microL 1.2 - 3.4 01/21/2020 N [facility] [place] [facility] Auto Diff Appling Absolute 1.1 x1 0'3/microL 0.1 - 0.6 01/21/2020 [facility] Auto Diff Eos Absolute 0.1 x1 0'3/microL 0.0 - 0.5 01/21/2020 N [facility] [place] [facility] Auto Diff Basophil Absolute 0.0 x1 0'3/microL 0.0 - 0.2 01/21/2020 N [facility] [place] [facility] Auto Diff Immature Grans Abs 0.0 x1 0'3/microL 0.0 - 0.0 01/21/2020 N [facility] [place] [facility] CBC/Diff WBC 9.3 x10'3/micro L 4.0 - 11.0 01/21/2020 N [facility] [place] [facility] CBC/Diff RBC 4.20 x10'6/micr oL 3.90 - 5.60 01/21/2020 N [facility] CBC/Diff Hgb 11.7 g/dL 12.0 - 16.0 01/21/2020 L [facility] CBC/Diff Hct 38 % 35 - 47 01/21/2020 N [facility] CBC/Diff MCV 90 fL 81 - 99 01/21/2020 N [facility] CBC/Diff MCH 28 pg 27 - 34 01/21/2020 N [facility] CBC/Diff MCHC 31 g/dL 30 - 36 01/21/2020 N [facility] CBC/Diff RDW 15.5 % - <=16.4 01/21/2020 N [facility] CBC/Diff Platelet 300 x10 '3/microL 140 - 400 01/21/2020 N [facility] CBC/Diff MPV 10.0 fL 8.3 - 12.4 01/21/2020 N [facility] Pathology Reports No Data Provided for This Section Diagnostic Reports No Data Provided for This Section Consultation Notes Results Value Date Source Operative Report Date of Surge ry [Date of Surgery] Preoperative Diagnosis Full-thickness rectal prolapse Postoperative Diagnosis Same Procedure Performed 1) Robotic assisted minimally invasive ventral mesh rectopexy 2) repair of rectocele Type of Anesthesia General Indications The patient is a 74-year-old female who was developed severe intermittent full- thickness rectal prolapse which is painful and has caused some bleeding. She has been evaluated in the ER multiple times and the prolapse is always been reducible. She desired surgical repair. Options were discussed for perineal verses abdominal repair. She desired abdominal ventral mesh rectopexy after a full discussion was had. Risks, benefits, and alternatives were discussed and she agreed to proceed. Surgeon Mati Sparks MD [employer] Database Developer(s) Hemalatha Purdy/Ilene Camejo Findings 1) severely attenuated pelvic floor with near complete flattening and attenuation of the rectovaginal septum 2) full-thickness rectal prolapse 3) large rectocele Unanticipated Events/Complications None Specimen(s) None Technique/Description of Procedure The patient was taken to the operating room and placed on the operating room table after induction of general anesthetic in the modified lithotomy position. They were well secured to the table . A Gutierrez catheter was placed. They were then prepped and draped in the normal sterile fashion. Laparoscopic and robotic equipment was set up. A confirmatory time-out with regard to patient, site, and procedure was performed accurately. Access was gained to the abdomen via the Optiview trocar technique, visualizing all layers of the abdominal wall. Once the intraperitoneal space was in countered the abdomen was insufflated at low flow. The obturator was removed and the laparoscoped passed into the abdomen. Once we were confirmed to be in the intraperitoneal space high flow was employed. We then proceeded to place four 8 mm robotic trocars and a 12 mm journeyman operator assistant trocar. All were placed after infiltration with local anesthetic and making stab incisions. They were placed under direct visualization. The patient was placed in steep Trendelenburg position allowing the small bowel to fall out of the pelvis. The robotic device was then docked to the patient without difficulty and the procedure proceeded with robotic assistance. The sacral promontory was identified and the peritoneal covering elevated and incised. Gentle dissection was used to expose the periosteum of the sacral promontory avoiding neurovascular structures. The peritoneal lining of the pelvis was then incised parallel to the axis of the rectum approximately 2 cm right lateral to the rectum. This peritoneal incision was curved to separate the pouch of Akhil and developed the rectovaginal plane. As noted above in findings the rectovaginal septum/plane was near completely attenuated. Gentle blunt and sharp dissection as well as Bovie cautery was used to developed the rectovaginal plane to the pelvic floor. Care was taken to avoid injury to the rectum and vagina. Once the pelvic floor was encountered small flaps were created on either side of the peritoneal incision lateral to the rectum. The dissection plane was inspected for bleeding and none was identified. A 7 x 20 cm piece of Locappy biologic mesh was then cut to size with an approximately 5 x 5 cm paddle and 2 cm wide tail. The paddle was then sutured seromuscularly to the rectum in the rectovaginal space with multiple U stitches of 2-0 Vicryl. Lateral stitches to the pelvic floor musculature were performed with 2-0 Ethibond. This was performed in a manner to provide maximum contact between the mesh and tissue. Then the tail of the mesh was sutured in 2 [address] to the cleared periosteum of the sacral promontory with 2-0 Ethibond as well. Some tension was required in order to fully reduce her prolapse. The mesh was then trimmed as necessary. The opened peritoneum of the pouch of Akhil was then closed with a pursestring suture of absorbable 3-0 barbed suture taking care to avoid any vascular structures and the bilateral ureters. This suture was then used to close the peritoneum lateral to the rectum up to the sacral promontory, covering the mesh completely. Following this a small and medium rectal Sizer was able to be passed up the rectum without apparent compromise of the lumen. The abdomen was then fully desufflated, trocars removed, and skin closed with subcuticular Monocryl suture. The abdomen was then cleaned and dried and dressings applied. All sponge, instrument, and needle counts were correct. [employer] Offees biologic mesh Estimated Blood Loss 25 cc Patient Condition/Disposition Stable 01/21/2020 [facility] Discharge Summaries Results Value Date Source Discharge Summary Date of Admi ssion 01/21/2020 Date Time of Discharge 01/23/2020 Reason for Hospitalization Rectal prolapse Rectocele, female Objective Vitals and Measurements (Last Charted) T: 98 F (Oral) TMIN: 97.3 F (Oral) TMAX: 99.9 F (Oral) HR: 80 RR: 17 BP: 149/86 SpO2: 97% Physical Exam General: Alert and oriented, No acute distress. Respiratory: Equal Bilateral, Non-Labored, No respiratory distress Cardiovascular: Normal cap refill Gastrointestinal: Soft, Non-distended, Expected incisional tenderness. Incisions are c/d/i. Integumentary: Intact, warm and dry Neurologic: Alert, Oriented, Normal motor function, No focal deficits. Psychiatric: Cooperative, Appropriate mood and affect Lab Results Results (Last 48 Hours) CBC and Plt w/o Diff Event Name Event Result Date/Time WBC 7.8 x10'3/microL 01/23/20 07:35:00 RBC 3.93 x10'6/microL 01/23/20 07:35:00 Hgb 10.9 g/dL Low 01/23/20 07:35:00 Hct 35 % 01/23/20 07:35:00 Platelet 205 x10'3/microL 01/23/20 07:35:00 Prothrombin Time with INR Event Name Event Result Date/Time INR 1.1 01/21/20 10:50:00 Basic Metabolic Panel Event Name Event Result Date/Time Sodium 142 mmol/L 01/22/20 05:36:00 Potassium 4.2 mmol/L 01/22/20 05:36:00 Chloride 107 mmol/L 01/22/20 05:36:00 CO2 24 mmol/L 01/22/20 05:36:00 Glucose 110 mg/dL High 01/22/20 05:36:00 BUN 7 mg/dL Low 01/22/20 05:36:00 Creatinine 0.8 mg/dL 01/22/20 05:36:00 Calcium 8.3 mg/dL Low 01/22/20 05:36:00 Radiology (Past 36 Hrs) COMPLETED RADIOLOGY IMAGING STUDIES: No Imaging Results in the last 36 hours Discharge Diagnosis Visit Diagnoses Rectal prolapse K62.3 Rectocele, female N81.6 Orders: Colace, 100 mg, CAP, PO, BID (2 times a day), PRN Constipation, 01/22/20 9:00:00 CDT Hospital Course Subjective: States her migraine is gone. Reports pain controlled, having bm, and voiding. States she wants to go home. Denies any nausea/vomiting. Transition Plan Discharge Instruction(s): Discharge to: Home Patient Condition at Discharge: Stable Discharge Diet Special Instructions: Recommend full liquid diet for the next 2 days and then slowly add soft foods Weight limit for lifting: Do not lift > 10lbs x 6 weeks postop Activity Special Instructions: Ambulate dailyMay climb stairsMay shower; do not soak in a bath Additional Discharge Instructions: Recommend stool softeners (Colace 100mg PO 2-3x per day) while taking narcotic pain medications; hold if stools are loose, avoid straining for bowel movements. If constipation develops despite stool softeners call office Home Health Referral: Other, see Special Instructions, General nursing care Follow Up Location: [facility], MATI Delgadillo Address: [address] [place] [address], [place], [address] Follow up by: Follow up within: Details: Call office(s) above for follow-up appt. for 3 weeks after discharge with Dr[address] Sparks or nurse practitioner, if Gutierrez catheter present at time of discharge follow-up in 1 week for removal Pending Test Results No Pending Results Discharge Meds Discharge Medication List Medication albuterol(albuterol inhaler)(albuterol) 1 Puff 4 TIMES A DAY PRN Shortness of Breath or Wheezing Comment(s): Use DOS if needed Shortness of Breath or Wheezing ALPRAZolam(ALPRAZolam 0.25 mg oral tablet)(ALPRAZolam) 0.25 mg 1 TAB By Mouth DAILY PRN as needed for anxiety Comment(s): MAY TAKE DOS as needed for anxiety cholecalciferol(Vitamin D3)(cholecalciferol) 2 gummies Chewed DAILY Comment(s): Hold DOS DULoxetine(Cymbalta)(DULoxetine) 30 mg By Mouth DAILY Comment(s): Take DOS gabapentin(gabapentin 300 mg oral capsule)(gabapentin) 300 mg 1 CAP By Mouth 2 TIMES A DAY Comment(s): Take DOS levothyroxine(Synthroid)(levothyroxine) 75 mcg By Mouth DAILY Comment(s): Take DOS metoprolol(Metoprolol Succinate ER 25 mg oral tablet, extended release)(metoprolol) 50 mg 2 TAB By Mouth DAILY Comment(s): Take DOS multivitamin(Hair, Skin, and Nails Gummies)(multivitamin) 2 gummies Chewed DAILY Comment(s): Stop at time of interview 01.16.20 @ 1620 ondansetron(ondansetron 4 mg oral tablet)(ondansetron) 4 mg 1 TAB By Mouth Every 6 hours PRN Nausea/Vomiting Comment(s): May take DOS if needed Nausea/Vomiting pantoprazole(Protonix 40 mg oral delayed release tablet)(pantoprazole) 40 mg 1 TAB By Mouth DAILY Comment(s): Take DOS potassium chloride(K-Dur)(potassium chloride) 20 mEq 2 TIMES A DAY Comment(s): Hold DOS SUMAtriptan(Imitrex 100 mg oral tablet)(SUMAtriptan) 50 mg 0.5 TAB By Mouth DAILY PRN as needed for migraine headache Comment(s): Hold DOS. may take up to 200mg per day traMADol(traMADol 50 mg oral tablet)(traMADol) 100 mg 2 TAB By Mouth Every 6 hours PRN as needed for pain Comment(s): May take DOS if needed as needed for pain 01/23/2020 [facility] History and Physicals No Data Provided for This Section Vital Signs Vital Sign Value Date Comments Source Heart Rate 80 bpm 01/23/2020 [facility] Respiratory Rate 17 br/min 01/23/2020 [facility] BP Location Arm, right ( 0 7:22 AM) 01/23/2020 [facility] Pulse Equipment SPO2 (01/23/20 7:22 AM) 01/23/2020 [facility] Temperature 98 [degF] 01/23/2020 [facility] Temp Method Oral (01/23/20 7:21 AM) 01/23/2020 [facility] Inet NIBP Systolic 149 mm[Hg] 01/23/2020 [facility] NIBP Diastolic 86 mm[Hg] 01/23/2020 [facility] NIBP MAP 101 mm[Hg] 01/23/2020 [facility] NIBP MAP Calc 109 mm[Hg] 01/23/2020 [facility] Heart Rhythm Interpretation Si nus/atrial rhythm (01/21/20 3:40 PM) 01/21/2020 [facility] NIBP Method Automatic (01/21/20 3:40 PM) 01/21/2020 [facility] BP Cuff Size Large (01/21/20 3: 40 PM) 01/21/2020 [facility] NIBP Alarms set and on Yes ( 3:40 PM) 01/21/2020 [facility] Vital Signs Status/Type Pre Pr ocedure (01/21/20 11:00 AM) 01/21/2020 [facility] Defibrilator Vest Yes (01/21/20 11:00 AM) 01/21/2020 [facility] Encounters Location Location Details Encounter Type Encounter Number Reason For Visit Attending Provider ADM Date DC Date Status Source [phone] [id number] RECTAL PROLAPSE MATI SPARKS MD 01/21/2020 01/23/2020 Active [facility] Procedures No Data Provided for This Section Plan of Care No Data Provided for This Section Social History Social History Date Source Social History TypeResponse 01/23/2020 [facility] Assessment and Plan No Data Provided for This Section Family History No Data Provided for This Section Advance Directives No Data Provided for This Section Functional Status No Data Provided for This Section
--- OUTSIDE RECORDS SUMMARY | 2020-05-29 11:10 | XMS REPORT | Clinical Summary ---
Author Author [facility] Organization [facility] Address Unknown Phone Unavailable Care Team Providers Care Accounting Intern Name Role Phone Reyes Gao MD Unavailable Reyes Gao MD PCP Source Comments Some departments are not documenting in the electronic medical record. If you d o not see the information that you expected, contact Release of Information in [facility] [employer] Information Management department at [phone] for further assistan ce in locating additional records.[facility] Allergies Comments Active Allergy Reactions Severity [...] loss, bilateral Active calcitonin salmon Apply 1 Duff 0 (MIACALCIN) 200 to one unit/actuation nasal [...] Overview: Mild complaints in memory but no interf erence with daily function. She has physical limitations from her RA but no t related to cognition. She does not endorse visual or spatial symptoms of p osterior cortical atrophy. 2015 PET / CT -- no clear atrophy on CT . Some evidence of mild temporal hypometabolism but no occipital or bhupinder etal hypometabolism. Not a strongly suggestive AD pattern or posterior hamilton ical atrophy pattern. 10/2016 MMSE 28, LMI 10, LMII 7, Trails B 180, Fluency 12. Good to slightly below average performance on m chiki and executive function tasks. Etiology likely chronic or static cogni tive impairment or meds / pain. I would become suspicious for neurodegene rative if her symptoms worsen in the next year or two. L ast Assessment & Plan: -- discussed her very mild symptoms and to return if there is noticeable decline or interference in daily functi on in the future. Vision loss, bilateral 01/24/2016 Last Assessment & Plan: - Patient referred for peripheral visio n loss - No inciting event and patient not magda lly aware of it. - Central visual acuity still good. 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 Blood Pressure 71 10/31/2016 2:04 PM STAGE BUILDER Pulse - - Temperature - - Respiratory Rate - - Oxygen Saturation - - Inhaled Oxygen Concentration 75.3 kg (166 lb) 10/31/2016 2:04 PM STAGE BUILDER Weight 162.6 cm (5' 4") 10/31/2016 2:04 PM STAGE BUILDER Height 28.49 10/31/2016 2:04 PM STAGE BUILDER Body Mass Index Plan of Treatment Health Maintenance Due Date Last Done Comments MEDICARE ANNUAL WELLNESS 1945 VISIT DTAP/TDAP VACCINES (1 - 1965 Tdap) HEPATITIS C SCREENING 1965 PHYSICAL (COMPREHENSIVE) 1965 EXAM BREAST CANCER SCREENING 1987 COLORECTAL CANCER 1997 SCREENING SHINGLES RECOMBINANT 1997 VACCINE (1 of 2) OSTEOPOROSIS 2012 SCREENING/MONITORING PNEUMONIA (PPSV23) 2012 VACCINE (1 of - PPSV23) INFLUENZA VACCINE 08/05/2020 Results Not on filefrom Last 3 Months Insurance Type Payer Benefit Subscriber ID Effective Phone Address Plan / Dates Group Medicare MEDICARE MEDICARE xxxxxxxxxx 2001-P PART A AND resent B Medicaid [place] [employer] xxxxxxxxxxx 2010- STATE Present HEALTH Advance Directives Patient Toddler Caregiver Explanation Type Date Recorded Advance 01/25/2016 7:16 AM Directive/DPOA
--- OUTSIDE RECORDS SUMMARY | 2020-05-29 11:10 | XMS REPORT | Encounter Summary ---
Author Author [facility] Address Unknown Phone Unavailable Care Team Providers Care Cellular Biologist Name Role Phone PCP Unavailable Encounter Details Care Team Description Date Type Department Teja Telles MD [address] [facility] [address] [place] [address] [phone] 10/04/1998 [facility] Encounter [id number] [place] [address] Social History Date Tobacco Use Types Packs/Day [...] Procedures Comments Procedure Name Priority Date/Time Associated Diag nosis URINALYSIS (INCLUDES Routine 10/04/1998 MICROSCOPIC REVIEW, IF 2:14 PM RODDING ANODE WORKER INDICATED) URIC ACID Routine 10/04/1998 2:14 PM [employer]ODDING ANODE WORKER THYROID STIMULATING Routine 10/04/1998 HORMONE 2:14 PM [employer]ODDING ANODE WORKER ERYTHROCYTE SEDIMENTATION Routine 10/04/1998 RATE 2:14 PM [employer]ODDING ANODE WORKER CREATINE KINASE Routine 10/04/1998 2:14 PM [employer]ODDING ANODE WORKER COMPREHENSIVE METABOLIC Routine 10/04/1998 PANEL 2:14 PM RODDING ANODE WORKER COMPLETE BLOOD COUNT Routine 10/04/1998 2:14 PM RODDING ANODE WORKER RUBA QUALITATIVE Routine 10/04/1998 2:14 PM RODDING ANODE WORKER documented in this encounter Results * Comprehensive Metabolic Panel (10/04/1998 2:14 PM RODDING ANODE WORKER) Albumin 4.1 3.6 - 4.6 G/DL SUNQUEST [...] MEQ/L SUNQUEST Specimen Blood Performing Organization Address [facility] one Number [id number] [phone] SUNQUEST * Complete Blood Count (10/04/1998 2:14 PM RODDING ANODE WORKER) WBC 7.0 4.0 - 11.0 TH/UL SUNQUEST [...] TH/UL SUNQUEST Specimen Blood Performing Organization Address [facility] one Number [id number] [phone] SUNQUEST * Urinalysis (10/04/1998 2:14 PM RODDING ANODE WORKER) Appearance, DK JUAN (A) SUNQUEST Urine Specific >=1.030 (A) <1.030 SUNQUEST [place], UA PH Urine 6.0 5.0 - 8.0 SUNQUEST Hemoglobin NEGATIVE NEGATIVE SUNQUEST Urine Ketones Urine TRACE (A) NEGATIVE SUNQUEST Glucose Urine NEGATIVE NEGATIVE SUNQUEST Protein Urine TRACE (A) NEGATIVE SUNQUEST Qual Leukocyte NEGATIVE NEGATIVE SUNQUEST Esterase Urobilinogen NEGATIVE NEGATIVE SUNQUEST Urine Bilirubin Urine NEGATIVE NEGATIVE SUNQUEST Specimen Urine Performing Organization Address [facility] one Number [id number] [phone] SUNQUEST * RUBA Qualitative (10/04/1998 2:14 PM RODDING ANODE WORKER) RUBA Qualitative NEGATIVE NEGATIVE SUNQUEST Specimen Blood Performing Organization Address [facility] one Number [id number] [phone] SUNQUEST * Thyroid Stimulating Hormone (10/04/1998 2:14 PM RODDING ANODE WORKER) Thyroid 0.68 0.50 - 5.00 UIU/ML SUNQUEST Stimulating Hormone Specimen Blood Performing Organization Address [facility] one Number [id number] [phone] SUNQUEST * Erythrocyte Sedimentation Rate (10/04/1998 2:14 PM RODDING ANODE WORKER) Sed Rate 14 0 - 20 MM/HR SUNQUEST Specimen Blood Performing Organization Address [facility] one Number [id number] [place] [phone] SUNQUEST * Uric Acid (10/04/1998 2:14 PM RODDING ANODE WORKER) Uric Acid 3.2 2.5 - 7.8 MG/DL SUNQUEST Specimen Blood Performing Organization Address [facility] one Number [id number] [phone] SUNQUEST * Creatine Kinase (10/04/1998 2:14 PM RODDING ANODE WORKER) Creatine Kinase 68 30 - 225 IU/L SUNQUEST Specimen Blood Performing Organization Address [facility] one Number [id number] [phone] SUNQUEST documented in this encounter Visit Diagnoses Not on filedocumented in this encounter
--- OUTSIDE RECORDS SUMMARY | 2020-05-29 11:10 | XMS REPORT ---
Author Author Nanette Atkins Doctor Organization [facility] Address Unknown Phone Unavailable Care Team Providers Care Geospatial Technician Name Role Phone Migration, Doctor Unavailable Unavailable PROBLEMS Type Condition ICD9-CM Code [id number] Code Onset Dates Condition S tatus SNOMED Code Problem Stage 1 skin ulcer of sacral region L98.429 Active Problem Rotator cuff tendonitis M75.80 March, Act alyssa 174552521 Problem Closed fracture of left distal tibia S82.302A Jan, Active 96927889 Problem Hypokalemia E87.6 March, Active 67158 004 Problem Generalized anxiety disorder F41.1 Jun, 201 1 Active 10257663 Problem Diverticulitis of both small and large intestine without perforation or abscess without bleeding K57.52 Feb, Active 307 414208 Problem 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 May, Active 321730567 Problem Essential hypertension I10 Active 85495108 Problem Anemia D64.9 Sep, Active 3770868 00 Problem 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, limited to b reakdown of skin L97.511 Active Problem Generalized abdominal pain R10.84 Sep, Active 581930460 Problem Chronic pain G89.29 Aug, Active 8242 3001 Problem SOB (shortness of breath) R06.02 Nov, A ctive 932833208 Problem CKD (chronic kidney disease) stage 3, GFR 30-59 ml/min N18.3 Apr, Active 222882305 Problem Diastolic dysfunction I51.9 Jan, Activ e 2638108 Problem Ulcerative colitis K51.90 Jul, Active 98252086 Problem Rheumatoid arthritis M06.9 Sep, Active 34773786 Problem PVC (premature ventricular contraction) I49.3 Nov, Active 65113018 Problem Moderate episode of recurrent major depressive disorder F33.1 Active 489683495 Problem Iron deficiency anemia secondary to inadequate d ietary iron intake D50.8 Active 941985030 Problem 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 Active [id number] ALLERGIES No Information ENCOUNTERS Encounter Location Date Diagnosis [address] [id number], [place] [address] Jul, [address] [id number], [place] [address] May, [address] [id number], [place] [address] Apr, [address] [id number], [place] [address] Apr, [address] [id number], [place] [address] Apr, Congenital hypothyroidism wi thout goiter E03.1 ; Diastolic dysfunction I51.9 ; Rheumatoid arthritis M06.9 ; Chronic obstructive pulmonary disease, unspecified COPD type J44.9 ; Ulcerative colitis K51.90 ; CKD (chronic kidney disease) stage 3, GFR 30-59 ml/min N18.3 and Essential hypertension I10 [facility] [address] [id number] [place] [address] 09 Apr, 2020 Pain in right leg M79.604 an d Pain in left leg M79.[address] 340[address] [id number], [place] [address] 09 Apr, 2020 [facility] [address] [id number] [place] [address] Apr, Nausea R11.0 [facility] [address] [id number] [place] [address] March, Fever, unspecified fever cau se R50.9 and Rheumatoid arthritis M06.[address] [id number] [place] [address] March, [facility] [address] [id number] [address] [place] [address] March, Fever, unspecified fever cau se R50.9 and Rheumatoid arthritis M06.9 [facility] [address] [id number] [address] [place] [address] March, Nausea R11.[address] 340[address] [id number], [place] [address] March, [address] [id number], [place] [address] Feb, [address] [id number], [place] [address] Feb, [address] 340[address] [id number], [place] [address] Jan, Nausea alone R11.[address] 340[address] [id number], [place] [address] Jan, [facility] [address] [id number] [address] [place] [address] Jan, Arthralgia of left temporoma ndibular joint M26.[address] [id number], [place] [address] Jan, [address] 340[address] [id number], [place] [address] Jan, Ulcerative colitis K51.90 ; CKD (chronic kidney disease) stage 3, GFR 30-59 ml/min N18.3 ; Essential hypertension I10 ; Rheumatoid arthritis with rheumatoid factor of right hand without organ or systems involvement M05.741 ; Intrinsic eczema L20.84 and Rectal prolapse K62.3 [facility] [address] [facility] [id number] [address] [place] [address] 12 Jan, 2020 [facility] [address] [facility] [id number] [address] [place] [address] Jan, [facility] [address] [facility] [id number] [address] [place] [address] Jan, [facility] [address] [id number] [address] [place] [address] Jan, [facility] [address] [facility] [id number] [address] [place] [address] Jan, [address] [id number], [place] [address] Jan, [address] [id number], [place] [address] Jan, [address] [id number], [place] [address] Jan, [facility] [place] [address] [facility] [id number] [place] [address] Jan, [facility] [address] [id number] [address] [place] [address] Dec, Skin infection L08.9 and His tory of pneumonia Z87.[address] 340B [id number] [place] [address] Dec, [facility] [address] [id number] [address] [place] [address] Dec, [facility] [address] [id number] [address] [place] [address] Dec, [facility] [address] [facility] [id number] [address] [place] [address] 20 Dec, 2019 [facility] [address] [id number] [place] [address] 19 Dec, 2019 Allergic reaction, initial e ncounter T78.40XA and Swollen upper lip R22.[address] 340[address] [id number], [place] [address] Dec, [address] 340 [id number], [place] [address] 18 Dec, 2019 [facility] [address] [id number] [place] [address] 13 Dec, 2019 Cough R05 [address] 340 [id number], [place] [address] 11 Dec, 2019 Iron deficiency anemia secon michell to inadequate dietary iron intake D50.[address] [id number], [place] [address] 11 Dec, 2019 Encounter for Medicare ann l wellness exam Z00.00 ; 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, 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 ; Chronic obstructive pulmonary disease, unspecified COPD type J44.9 ; Ulcerative colitis K51.90 ; CKD (chronic kidney disease) stage 3, GFR 30-59 ml/min N18.3 ; Atherosclerosis of solomon coronary artery of solomon heart with angina pectoris I25.119 ; B12 deficiency E53.8 and Rheumatoid arthritis with rheumatoid factor of right hand without organ or systems involvement M05.[address] 340 [id number], [place] [address] 03 Dec, [address] 340 [id number], [place] [address] Nov, [address] 340[address] [id number], [place] [address] 14 Nov, 2019 Other specified peripheral v ascular diseases I73.89 ; Hypertensive heart disease with heart failure I11.0 ; 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 ; Rheumatoid arthritis with rheumatoid factor of right hand without organ or systems involvement M05.741 ; 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 ; Anemia, unspecified type D64.9 and Moderate episode of recurrent major depressive disorder F33.1 [facility] [address] 340B [id number] [place] [address] Nov, [facility] [address] 340[address] [id number] [place] [address] Nov, [facility] [place] [address] [id number] [place] [address] Nov, [facility] [place] [address] 340B [id number] [place] [address] Nov, [facility] [address] [id number] [place] [address] Oct, Rhinitis, unspecified type J 31.0 and Concussion without loss of consciousness, subsequent encounter S06.0X0D [facility] [address] 340B [id number] [place] [address] Oct, [facility] [address] 340[address] [id number], [place] [address] Oct, [facility] [place] [address] 340B [id number] [place] [address] Aug, [facility] [place] [address] 340[address] [id number] [place] [address] Aug, [facility] [place] [address] 340[address] [id number], [place] [address] Aug, [facility] KIKO [place] [address] 340B [id number] [place] [address] Jul, [facility] [address] [id number] [place] [address] Jul, Right hip pain M25.551 [facility] [address] 340B [id number] [place] [address] Jul, [facility] [address] [id number] [place] [address] Jul, [facility] [place] [address] [id number] [place] [address] Jun, Rheumatoid arthritis M06.9 ; Ulcerative colitis K51.90 and Rectal prolapse K62.3 [facility] [address] [id number] [place] [address] Jun, [facility] [address] [id number] [place] [address] Jun, [facility] [address] [id number] [place] [address] Jun, COPD exacerbation J44.1 [facility] [place] [address] [id number] [place] [address] Jun, [facility] [place] [address] [id number] [place] [address] May, [facility] [address] [id number], [place] [address] May, Diastolic dysfunction I51.9 [facility] [address] [id number], [place] [address] May, Rectal prolapse K62.3 ; Rheu matoid arthritis M06.9 ; Diastolic dysfunction I51.9 and CKD (chronic kidney disease) stage 3, GFR 30-59 ml/min N18.3 [facility] [place] [address] [id number] [place] [address] May, [facility] [address] [id number] [place] [address] May, [facility] [place] [address] [facility] [id number] [place] [address] May, Inflammation, skin L08.9 and Non-intractable vomiting with nausea, unspecified vomiting type R11.2 [facility] [place] [address] [id number] [place] [address] May, [facility] [place] [address] [id number] [place] [address] Apr, [facility] KIKO PU[place] [address] [id number] [place] [address] Apr, Acute ethmoidal sinusitis, r ecurrence not specified J01.20 and Bronchitis J40 [facility] [place] [address] [facility] [id number] [place] [address] Apr, Sore throat J02.9 and Oral thrush B37.0 [facility] [address] [id number] 100[place] [address] Apr, Screening for breast cancer Z12.39 [facility] KIKO PUENTE [address] 340B [id number] [place] [address] Apr, [facility] KIKO PU[place] [address] 340[address] [id number], [place] [address] Apr, Rheumatoid arthritis M06.9 [facility] KIKO PU[place] [address] 340B [id number], [place] [address] March, [facility] [address] 340[address] [id number], [place] [address] March, [facility] [place] [address] 340[address] [id number], [place] [address] March, [facility] KIKO PUENTE [address] 340B [id number], [place] [address] March, [facility] KIKO PU[place] [address] 340B [id number], [place] [address] March, Ulcerative colitis K51.90 an d 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 [facility] [address] [id number] [place] [address] Feb, [facility] KIKO PUENT[place] [address] 340B [id number], [place] [address] Feb, [facility] [address] [facility] [id number] [address] [place] [address] Jan, [facility] KIKO [address] 340 [id number], [place] [address] Jan, Diastolic dysfunction I51.9 ; Rheumatoid arthritis M06.9 ; Ulcerative colitis K51.90 ; Essential hypertension I10 ; Moderate episode of recurrent major depressive disorder F33.1 and Iron deficiency anemia secondary to inadequate dietary iron intake D50.8 [facility] KIKO [address] [id number], [place] [address] Jan, [facility] KI[place] [address] [id number], [place] [address] Jan, Acute bronchitis, unspecifie d organism J20.9 and 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 [id number] [place] [address] Nov, Viral upper respiratory illness J06.9 and Nausea alone R11.0 [facility] [address] [facility] [id number] [address] [place] [address] Oct, [facility] [address] [facility] [id number] [address] [place] [address] Oct, [facility] [address] [facility] [id number] [address] [place] [address] Oct, [facility] [address] [id number] [address] [place] [address] Aug, [facility] [address] [facility] [id number] [address] [place] [address] March, [facility] [address] [facility] [id number] [address] [place] [address] Feb, [facility] [address] [id number] [address] [place] [address], [place] [address] Feb, [facility] [address] [id number] [address] [place] [address], [place] [address] Jan, [facility] [address] [id number] [address] [place] [address], [place] [address] Jan, [facility] [address] [id number] [address] [place] [address], [place] [address] Oct, [facility] [address] [id number] [address] [place] [address], [place] [address] Oct, [facility] [address] [id number] [address] [place] [address], [place] [address] Oct, [facility] [address] [id number] [address] [place] [address], [place] [address] Sep, [facility] [address] [id number] [address] [place] [address], [place] [address] Sep, [facility] [address] [id number] [address] [place] [address], [place] [address] Sep, [facility] [address] [id number] [address] [place] [address] Sep, [facility] [address] [id number] [address] [place] [address] Sep, [facility] [address] [id number] [address] [place] [address] Aug, [facility] [address] [id number] [address] [place] [address], [place] [address] Aug, [facility] [address] [id number] [address] [place] [address], [place] [address] Jul, [facility] [address] [id number] [address] [place] [address] Jul, [facility] [address] [id number] [address] [place] [address] 10 Jul, 2013 [facility] [address] [id number] [address] [place] [address], [place] [address] 10 Jul, 2013 [facility] [address] [id number] [address] [place] [address], [place] [address] 08 Jul, 2013 [facility] [address] [id number] [address] [place] [address], [place] [address] Jul, 2013 [facility] [address] [id number] [address] [place] [address], [place] [address] May, 2013 [facility] [address] [id number] [address] [place] [address], [place] [address] May, 2013 [facility] [address] [id number] [address] [place] [address], [place] [address] May, [facility] [address] [id number] [address] [place] [address], [place] [address] May, [facility] [address] [id number] [address] [place] [address], [place] [address] May, [facility] [address] [id number] [address] [place] [address], [place] [address] May, [facility] [address] [id number] [address] [place] [address], [place] [address] Apr, [facility] [address] [id number] [address] [place] [address], [place] [address] Apr, [facility] [address] [id number] [address] [place] [address], [place] [address] Apr, [facility] [address] [id number] [address] [place] [address], [place] [address] Apr, [facility] [address] [id number] [address] [place] [address], [place] [address] Apr, [facility] [address] [id number] [address] [place] [address], [place] [address] Apr, [facility] [address] [id number] [address] [place] [address], [place] [address] Apr, [facility] [address] [id number] [address] [place] [address], [place] [address] Apr, [facility] [address] [id number] [address] [place] [address], [place] [address] March, [facility] [address] [id number] [address] [place] [address], [place] [address] March, [facility] [address] [id number] [address] [place] [address], [place] [address] March, [facility] [address] [id number] [address] [place] [address], [place] [address] Feb, [facility] [address] [id number] [address] [place] [address], [place] [address] Feb, [facility] [address] [id number] [address] [place] [address], [place] [address] Feb, [facility] [address] [id number] [address] [place] [address], [place] [address] Feb, [facility] [address] [id number] [address] [place] [address], [place] [address] Feb, [facility] [address] [id number] [address] [place] [address], [place] [address] Feb, [facility] [address] [id number] [address] [place] [address], [place] [address] Feb, [facility] [address] [id number] [address] [place] [address], [place] [address] Feb, [facility] [address] [id number] [address] [place] [address], [place] [address] Jan, [facility] [address] [id number] [address] [place] [address], [place] [address] Jan, [facility] [address] [id number] [address] [place] [id number] Dec, [facility] [address] [id number] [address] [place] [address], [place] [address] Dec, [facility] [address] [id number] [address] [place] [address], [place] [address] Dec, [facility] [address] [id number] [address] [place] [address], [place] [address] Dec, [facility] [address] [id number] [address] [place] [address], [place] [address] Dec, [facility] [address] [id number] [address] [place] [address], [place] [address] Nov, [facility] [address] [id number] [address] [place] [address], [place] [address] Nov, [facility] [address] [id number] [address] [place] [address], [place] [address] Nov, [facility] [address] [id number] [address] [place] [address], [place] [address] Nov, [facility] [address] [id number] [address] [place] [address], [place] [address] Nov, [facility] [address] [id number] [address] [place] [address], [place] [address] Nov, [facility] [address] [id number] [address] [place] [address], [place] [address] Oct, [facility] [address] [id number] [address] [place] [address], [place] [address] Oct, [facility] [address] [id number] [address] [place] [address], [place] [address] Sep, [facility] [address] [id number] [address] [place] [address], [place] [address] Sep, [facility] [address] [id number] [address] [place] [address], [place] [address] Sep, [facility] [address] [id number] [address] [place] [address], [place] [address] Sep, [facility] [address] [id number] [address] [place] [address], [place] [address] Sep, [facility] [address] [id number] [address] [place] [address], [place] [address] Sep, [facility] [address] [id number] [address] [place] [address], [place] [address] Aug, [facility] [address] [id number] [address] [place] [address], [place] [address] Aug, [facility] [address] [id number] [address] [place] [address], [place] [address] May, [facility] [address] [id number] [address] [place] [address], [place] [address] May, [facility] [address] [id number] [address] [place] [address], [place] [address] May, [facility] [address] [id number] [address] [place] [address], [place] [address] May, [facility] [place] [address] [id number] [address] [place] [address], [place] [address] Apr, [facility] [address] [id number] [address] [place] [address], [place] [address] Feb, [facility] [place] [address] [id number] [address] [place] [address], [place] [address] Jan, [facility] [address] [id number] [address] [place] [address], [place] [address] Nov, [facility] [address] [id number] [address] [place] [address], [place] [address] Nov, [facility] [address] [id number] [address] [place] [address], [place] [address] Nov, [facility] [address] [id number] [address] [place] [address], [place] [address] Nov, [facility] [address] [id number] [address] [place] [address], [place] [address] Oct, [facility] [address] [id number] [address] [place] [address], [place] [address] Oct, [facility] [address] [id number] [address] [place] [address], [place] [address] Oct, [facility] [address] [id number] [address] [place] [address], [place] [address] Oct, [facility] [address] [id number] [address] [place] [address], [place] [address] Oct, [facility] [address] [id number] [address] [place] [address], [place] [address] Oct, [facility] [address] [id number] [address] [place] [address], [place] [address] Oct, [facility] [address] [id number] [address] [place] [address], [place] [address] Oct, [facility] [address] [id number] [address] [place] [address], [place] [address] Sep, [facility] [address] [id number] [address] [place] [address], [place] [address] Sep, [facility] [address] [id number] [address] [place] [address], [place] [address] 16 Aug, 2012 [facility] [address] [id number] [address] [place] [id number] 16 Aug, 2012 [facility] [address] [id number] [address] [place] [address], [place] [address] 24 Jul, 2012 [facility] [address] [id number] [address] [place] [address], [place] [address] 12 Jul, 2012 [facility] [address] [id number] [address] [place] [address], [place] [address] 30 Jun, 2012 [facility] [address] [id number] [address] [place] [id number] Jun, [facility] [address] [id number] [address] [place] [address], [place] [address] Jun, [facility] [address] [id number] [address] [place] [address], [place] [address] Jun, [facility] [address] [id number] [address] [place] [address], [place] [address] May, [facility] [address] [id number] [address] [place] [address], [place] [address] May, [facility] [address] [id number] [address] [place] [address], [place] [address] May, [facility] [address] [id number] [address] [place] [address], [place] [address] May, [facility] [address] [id number] [address] [place] [address], [place] [address] May, [facility] [address] [id number] [address] [place] [address], [place] [address] May, [facility] [address] [id number] [address] [place] [address], [place] [address] Apr, [facility] [address] [id number] [address] [place] [address], [place] [address] March, [facility] [address] [id number] [address] [place] [address], [place] [address] March, [facility] [address] [id number] [address] [place] [address], [place] [address] Feb, [facility] [address] [id number] [address] [place] [address], [place] [address] Feb, [facility] [address] [id number] [address] [place] [address], [place] [address] Feb, [facility] [address] [id number] [address] [place] [address], [place] [address] Feb, [facility] [address] [id number] [address] [place] [address] Jan, [facility] [address] [id number] [address] [place] [address] Dec, [facility] [address] [id number] [address] [place] [id number] Nov, [facility] [address] [id number] [address] [place] [phone] Nov, [facility] [address] [id number] [address] [place] [address] Nov, [facility] [address] [id number] [address] [place] [id number] Oct, [facility] [address] [id number] [address] [place] [address] Oct, [facility] [address] [id number] [address] [place] [phone] Sep, [facility] [address] [id number] [address] [place] [id number] Sep, [facility] [address] [id number] [address] [place] [phone] Oct, [facility] [address] [id number] [address] [place] [id number] Sep, [facility] [address] [id number] [address] [place] [address] Aug, [facility] [address] [id number] [address] [place] [id number] Aug, IMMUNIZATIONS No Known Immunizations SOCIAL HISTORY [...] Surgical History Left shoulder joint repair 09/2018 Surgical History Removal of pre cancerous spots on arm /c hest/ nose Surgical History sepulveda cath in till rectum surg on 020 Hospitalization History Multiple Hospital Stays Hospitalization History ER Visit Lisa 05/05/2019
--- OUTSIDE RECORDS SUMMARY | 2020-05-29 11:10 | XMS REPORT ---
Author Author Nanette Atkins Doctor Organization [facility] Address Unknown Phone Unavailable Care Team Providers Care Technical Planner Name Role Phone Migration, Doctor Unavailable Unavailable PROBLEMS Type Condition ICD9-CM Code GCV19-MB Code Onset Dates Condition S tatus SNOMED Code Problem Stage 1 skin ulcer of sacral region L98.429 Active Problem Rotator cuff tendonitis M75.80 March, Act alyssa 865806188 Problem Closed fracture of left distal tibia S82.302A Jan, Active 64183132 Problem Hypokalemia E87.6 March, Active 39114 004 Problem Generalized anxiety disorder F41.1 Jun, 201 1 Active 70494214 Problem Diverticulitis of both small and large intestine without perforation or abscess without bleeding K57.52 Feb, Active 307 412401 Problem 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 May, Active 169807964 Problem Essential hypertension I10 Active 72689495 Problem Anemia D64.9 Sep, Active 5665629 00 Problem 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, limited to b reakdown of skin L97.511 Active Problem Generalized abdominal pain R10.84 Sep, Active 634809596 Problem Chronic pain G89.29 Aug, Active 8242 3001 Problem SOB (shortness of breath) R06.02 Nov, A ctive 571261710 Problem CKD (chronic kidney disease) stage 3, GFR 30-59 ml/min N18.3 Apr, Active 023681842 Problem Diastolic dysfunction I51.9 Jan, Activ e 0753648 Problem Ulcerative colitis K51.90 Jul, Active 60918933 Problem Rheumatoid arthritis M06.9 Sep, Active 38191422 Problem PVC (premature ventricular contraction) I49.3 Nov, Active 21730670 Problem Moderate episode of recurrent major depressive disorder F33.1 Active 079454092 Problem Iron deficiency anemia secondary to inadequate d ietary iron intake D50.8 Active 288510850 Problem 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 Active [id number] ALLERGIES No Information ENCOUNTERS Encounter Location Date Diagnosis [address] [id number], [place] [address] Jul, [address] [id number], [place] [address] May, [address] [id number], [place] [address] Apr, [address] 340[address] [id number], [place] [address] Apr, [address] 340[address] [id number], [place] [address] Apr, Congenital hypothyroidism wi thout goiter E03.1 ; Diastolic dysfunction I51.9 ; Rheumatoid arthritis M06.9 ; Chronic obstructive pulmonary disease, unspecified COPD type J44.9 ; Ulcerative colitis K51.90 ; CKD (chronic kidney disease) stage 3, GFR 30-59 ml/min N18.3 and Essential hypertension I10 [facility] [address] [facility] [id number] [place] [address] 09 Apr, 2020 Pain in right leg M79.604 an d Pain in left leg M79.[address] [id number], [place] [address] 09 Apr, 2020 [facility] [address] [facility] [id number] [place], [place] [address] Apr, Nausea R11.0 [facility] [address] [facility] [id number] [place], [place] [address] March, Fever, unspecified fever cau se R50.9 and Rheumatoid arthritis M06.[address] [id number] [place] [address] March, [facility] [address] [facility] [id number] [address] [place] [address] March, Fever, unspecified fever cau se R50.9 and Rheumatoid arthritis M06.9 [facility] [address] [facility] [id number] [address] [place] [address] March, Nausea R11.[address] 340[address] [id number], [place] [address] March, [address] 340[address] [id number], [place] [address] Feb, [address] 340[address] [id number], [place] [address] Feb, [address] [id number], [place] [address] Jan, Nausea alone R11.[address] 340[address] [id number], [place] [address] Jan, [facility] [address] [facility] [id number] [address] [place] [address] Jan, Arthralgia of left temporoma ndibular joint M26.[address] 340[address] [id number], [place] [address] Jan, [address] 340[address] [id number], [place] [address] Jan, Ulcerative colitis K51.90 ; CKD (chronic kidney disease) stage 3, GFR 30-59 ml/min N18.3 ; Essential hypertension I10 ; Rheumatoid arthritis with rheumatoid factor of right hand without organ or systems involvement M05.741 ; Intrinsic eczema L20.84 and Rectal prolapse K62.3 [facility] [address] [facility] [id number] [address] [place] [address] 12 Jan, 2020 [facility] [address] [facility] [id number] [address] [place] [address] Jan, [facility] [address] [facility] [id number] [address] [place] [address] Jan, [facility] [address] [facility] [id number] [address] [place] [address] Jan, [facility] [address] [facility] [id number] [address] [place] [address] Jan, [address] 340[address] [id number], [place] [address] Jan, [address] 340[address] [id number], [place] [address] Jan, [address] 340[address] [id number], [place] [address] Jan, [facility] [place] [address] [facility] [id number] [place] [address] Jan, [facility] [address] [facility] [id number] [address] [place] [address] Dec, Skin infection L08.9 and His tory of pneumonia Z87.[address] 340[address] [id number] [place] [address] Dec, [facility] [address] [facility] [id number] [address] [place] [address] Dec, [facility] [address] [facility] [id number] [address] [place] [address] Dec, [facility] [address] [facility] [id number] [address] [place] [address] 20 Dec, 2019 [facility] [address] [facility] [id number] [address] [address] 19 Dec, 2019 Allergic reaction, initial e ncounter T78.40XA and Swollen upper lip R22.[address] 340[address] [id number], [place] [address] Dec, [address] 340 [id number], [place] [address] 18 Dec, 2019 [facility] [address] [facility] [id number] [address] [address] 13 Dec, 2019 Cough R05 [address] 340 [id number], [place] [address] 11 Dec, 2019 Iron deficiency anemia secon michell to inadequate dietary iron intake D50.[address] [id number], [place] [address] 11 Dec, 2019 Encounter for Medicare ann l wellness exam Z00.00 ; 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, 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 ; Chronic obstructive pulmonary disease, unspecified COPD type J44.9 ; Ulcerative colitis K51.90 ; CKD (chronic kidney disease) stage 3, GFR 30-59 ml/min N18.3 ; 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 ; B12 deficiency E53.8 and Rheumatoid arthritis with rheumatoid factor of right hand without organ or systems involvement M05.[address] 340 [id number], [place] [address] 03 Dec, [address] 340 [id number], [place] [address] Nov, [address] 340[address] [id number], [place] [address] 14 Nov, 2019 Other specified peripheral v ascular diseases I73.89 ; Hypertensive heart disease with heart failure I11.0 ; 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 ; Rheumatoid arthritis with rheumatoid factor of right hand without organ or systems involvement M05.741 ; 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 ; Anemia, unspecified type D64.9 and Moderate episode of recurrent major depressive disorder F33.1 [facility] [address] 340[address] [id number] [place] [address] Nov, [facility] [place] [address] 340[address] [id number] [place] [address] Nov, [facility] [place] [address] 340[address] [id number] [place] [address] Nov, [facility] [place] [address] 340[address] [id number] [place] [address] Nov, [facility] [address] [facility] [id number] [address] [address] Oct, Rhinitis, unspecified type J 31.0 and Concussion without loss of consciousness, subsequent encounter S06.0X0D [facility] [address] 340B [id number] [place] [address] Oct, [facility] [place] [address] 340[address] [id number], [place] [address] Oct, [facility] [place] [address] 340[address] [id number] [place] [address] Aug, [facility] [place] [address] 340[address] [id number] [place] [address] Aug, [facility] [place] [address] 340[address] [id number], [place] [address] Aug, [facility] K[place]KO [place] [address] 340B [id number] [place] [address] Jul, [facility] [address] [facility] [id number] [address] [address] Jul, Right hip pain M25.551 [facility] [place] [address] 340B [id number] [place] [address] Jul, [facility] [place] [address] [id number] [place] [address] Jul, [facility] [place] [address] [id number] [place] [address] Jun, Rheumatoid arthritis M06.9 ; Ulcerative colitis K51.90 and Rectal prolapse K62.3 [facility] [address] [id number] [place] [address] Jun, [facility] [address] [id number] [place] [address] Jun, [facility] [address] [facility] [id number] [address] [address] Jun, COPD exacerbation J44.1 [facility] [place] [address] [id number] [place] [address] Jun, [facility] [place] [address] [id number] [place] [address] May, [facility] [address] [id number], [place] [address] May, Diastolic dysfunction I51.9 [facility] [address] [id number], [place] [address] May, Rectal prolapse K62.3 ; Rheu matoid arthritis M06.9 ; Diastolic dysfunction I51.9 and CKD (chronic kidney disease) stage 3, GFR 30-59 ml/min N18.3 [facility] [place] [address] [id number] [place] [address] May, [facility] [address] [id number] [place] [address] May, [facility] [place] [address] [facility] [id number] [place] [address] May, Inflammation, skin L08.9 and Non-intractable vomiting with nausea, unspecified vomiting type R11.2 [facility] [place] [address] [id number] [place] [address] May, [facility] [place] [address] [id number] [place] [address] Apr, [facility] KIKO [place] [address] [id number] [place] [address] Apr, Acute ethmoidal sinusitis, r ecurrence not specified J01.20 and Bronchitis J40 [facility] [place] [address] [facility] [id number] [place] [address] Apr, Sore throat J02.9 and Oral thrush B37.0 [facility] [address] [facility] [id number] [address] [address] Apr, Screening for breast cancer Z12.39 [facility] [place] [address] 340B [id number] [place] [address] Apr, [facility] K[place] [address] 340B [id number], [place] [address] Apr, Rheumatoid arthritis M06.9 [facility] K[place]KO [place] [address] 340B [id number], [place] [address] March, [facility] [place] [address] 340B [id number], [place] [address] March, [facility] [place] [address] 340B [id number], [place] [address] March, [facility] KIKO [place] [address] 340B [id number], [place] [address] March, [facility] KIKO [place] [address] 340B [id number], [place] [address] March, Ulcerative colitis K51.90 an d 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 [facility] [place] [address] [id number] [place] [address] Feb, [facility] KIKO [place] [address] 340B [id number], [place] [address] Feb, [facility] [address] [facility] [id number] [address] [place] [address] Jan, [facility] KIKO [address] 340 [id number], [place] [address] Jan, Diastolic dysfunction I51.9 ; Rheumatoid arthritis M06.9 ; Ulcerative colitis K51.90 ; Essential hypertension I10 ; Moderate episode of recurrent major depressive disorder F33.1 and Iron deficiency anemia secondary to inadequate dietary iron intake D50.8 [facility] KIKO [address] [id number], [place] [address] Jan, [facility] K[place] [address] [id number], [place] [address] Jan, Acute bronchitis, unspecifie d organism J20.9 and 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 [facility] [address] [place] [id number] [address] [place] [address] Dec, [address] [id number] [address] Dec, [facility] [address] [place] [id number] [place] [address] Nov, Viral upper respiratory illness J06.9 and Nausea alone R11.0 [facility] [address] [facility] [id number] [address] [place] [address] Oct, [facility] [address] [facility] [id number] [address] [place] [address] Oct, [facility] [address] [facility] [id number] [address] [place] [address] Oct, [facility] [address] [place] [id number] [address] [place] [address] Aug, [facility] [address] [facility] [id number] [address] [place] [address] March, [facility] [address] [facility] [id number] [address] [place] [address] Feb, [facility] [address] [id number] [address] [place] [address], [place] [address] Feb, [facility] [address] [id number] [address] [place] [address], [place] [address] Jan, [facility] [address] [id number] [address] [place] [address], [place] [address] Jan, [facility] [address] [id number] [address] [place] [address], [place] [address] Oct, [facility] [address] [id number] [address] [place] [address], [place] [address] Oct, [facility] [address] [id number] [address] [place] [address], [place] [address] Oct, [facility] [address] [id number] [address] [place] [address], [place] [address] Sep, [facility] [address] [id number] [address] [place] [address], [place] [address] Sep, [facility] [address] [id number] [address] [place] [address], [place] [address] Sep, [facility] [address] [id number] [address] [place] [address] Sep, [facility] [address] [id number] [address] [place] [address] Sep, [facility] [address] [id number] [address] [place] [address] Aug, [facility] [address] [id number] [address] [place] [address], [place] [address] Aug, [facility] [address] [id number] [address] [place] [address], [place] [address] Jul, [facility] [address] [id number] [address] [place] [address] Jul, [facility] [address] [id number] [address] [place] [address] 10 Jul, 2013 [facility] [address] [id number] [address] [place] [address], [place] [address] 10 Jul, 2013 [facility] [address] [id number] [address] [place] [address], [place] [address] 08 Jul, 2013 [facility] [address] [id number] [address] [place] [address], [place] [address] Jul, 2013 [facility] [address] [id number] [address] [place] [address], [place] [address] May, 2013 [facility] [address] [id number] [address] [place] [address], [place] [address] May, 2013 [facility] [address] [id number] [address] [place] [address], [place] [address] May, [facility] [address] [id number] [address] [place] [address], [place] [address] May, [facility] [address] [id number] [address] [place] [address], [place] [address] May, [facility] [address] [id number] [address] [place] [address], [place] [address] May, [facility] [address] [id number] [address] [place] [address], [place] [address] Apr, [facility] [address] [id number] [address] [place] [address], [place] [address] Apr, [facility] [address] [id number] [address] [place] [address], [place] [address] Apr, [facility] [address] [id number] [address] [place] [address], [place] [address] Apr, [facility] [address] [id number] [address] [place] [address], [place] [address] Apr, [facility] [address] [id number] [address] [place] [address], [place] [address] Apr, [facility] [address] [id number] [address] [place] [address], [place] [address] Apr, [facility] [address] [id number] [address] [place] [address], [place] [address] Apr, [facility] [address] [id number] [address] [place] [address], [place] [address] March, [facility] [address] [id number] [address] [place] [address], [place] [address] March, [facility] [address] [id number] [address] [place] [address], [place] [address] March, [facility] [address] [id number] [address] [place] [address], [place] [address] Feb, [facility] [address] [id number] [address] [place] [address], [place] [address] Feb, [facility] [address] [id number] [address] [place] [address], [place] [address] Feb, [facility] [address] [id number] [address] [place] [address], [place] [address] Feb, [facility] [address] [id number] [address] [place] [address], [place] [address] Feb, [facility] [address] [id number] [address] [place] [address], [place] [address] Feb, [facility] [address] [id number] [address] [place] [address], [place] [address] Feb, [facility] [address] [id number] [address] [place] [address], [place] [address] Feb, [facility] [address] [id number] [address] [place] [address], [place] [address] Jan, [facility] [address] [id number] [address] [place] [address], [place] [address] Jan, [facility] [address] [id number] [address] [place] [id number] Dec, [facility] [address] [id number] [address] [place] [address], [place] [address] Dec, [facility] [address] [id number] [address] [place] [address], [place] [address] Dec, [facility] [address] [id number] [address] [place] [address], [place] [address] Dec, [facility] [address] [id number] [address] [place] [address], [place] [address] Dec, [facility] [address] [id number] [address] [place] [address], [place] [address] Nov, [facility] [address] [id number] [address] [place] [address], [place] [address] Nov, [facility] [address] [id number] [address] [place] [address], [place] [address] Nov, [facility] [address] [id number] [address] [place] [address], [place] [address] Nov, [facility] [address] [id number] [address] [place] [address], [place] [address] Nov, [facility] [address] [id number] [address] [place] [address], [place] [address] Nov, [facility] [address] [id number] [address] [place] [address], [place] [address] Oct, [facility] [address] [id number] [address] [place] [address], [place] [address] Oct, [facility] [address] [id number] [address] [place] [address], [place] [address] Sep, [facility] [address] [id number] [address] [place] [address], [place] [address] Sep, [facility] [address] [id number] [address] [place] [address], [place] [address] Sep, [facility] [address] [id number] [address] [place] [address], [place] [address] Sep, [facility] [address] [id number] [address] [place] [address], [place] [address] Sep, [facility] [address] [id number] [address] [place] [address], [place] [address] Sep, [facility] [address] [id number] [address] [place] [address], [place] [address] Aug, [facility] [address] [id number] [address] [place] [address], [place] [address] Aug, [facility] [address] [id number] [address] [place] [address], [place] [address] May, [facility] [address] [id number] [address] [place] [address], [place] [address] May, [facility] [address] [id number] [address] [place] [address], [place] [address] May, [facility] [address] [id number] [address] [place] [address], [place] [address] May, [facility] [address] [id number] [address] [place] [address], [place] [address] Apr, [facility] [address] [id number] [address] [place] [address], [place] [address] Feb, [facility] [address] [id number] [address] [place] [address], [place] [address] Jan, [facility] [address] [id number] [address] [place] [address], [place] [address] Nov, [facility] [address] [id number] [address] [place] [address], [place] [address] Nov, [facility] [address] [id number] [address] [place] [address], [place] [address] Nov, [facility] [address] [id number] [address] [place] [address], [place] [address] Nov, [facility] [address] [id number] [address] [place] [address], [place] [address] Oct, [facility] [address] [id number] [address] [place] [address], [place] [address] Oct, [facility] [address] [id number] [address] [place] [address], [place] [address] Oct, [facility] [address] [id number] [address] [place] [address], [place] [address] Oct, [facility] [address] [id number] [address] [place] [address], [place] [address] Oct, [facility] [address] [id number] [address] [place] [address], [place] [address] Oct, [facility] [address] [id number] [address] [place] [address], [place] [address] Oct, [facility] [address] [id number] [address] [place] [address], [place] [address] Oct, [facility] [address] [id number] [address] [place] [address], [place] [address] Sep, [facility] [address] [id number] [address] [place] [address], [place] [address] Sep, [facility] [address] [id number] [address] [place] [address], [place] [address] 16 Aug, 2012 [facility] [address] [id number] [address] [place] [id number] 16 Aug, 2012 [facility] [address] [id number] [address] [place] [address], [place] [address] 24 Jul, 2012 [facility] [address] [id number] [address] [place] [address], [place] [address] 12 Jul, 2012 [facility] [address] [id number] [address] [place] [address], [place] [address] 30 Jun, 2012 [facility] [address] [id number] [address] [place] [id number] Jun, [facility] [address] [id number] [address] [place] [address], [place] [address] Jun, [facility] [address] [id number] [address] [place] [address], [place] [address] Jun, [facility] [address] [id number] [address] [place] [address], [place] [address] May, [facility] [address] [id number] [address] [place] [address], [place] [address] May, [facility] [address] [id number] [address] [place] [address], [place] [address] May, [facility] [address] [id number] [address] [place] [address], [place] [address] May, [facility] [address] [id number] [address] [place] [address], [place] [address] May, [facility] [address] [id number] [address] [place] [address], [place] [address] May, [facility] [address] [id number] [address] [place] [address], [place] [address] Apr, [facility] [address] [id number] [address] [place] [address], [place] [address] March, [facility] [address] [id number] [address] [place] [address], [place] [address] March, [facility] [address] [id number] [address] [place] [address], [place] [address] Feb, [facility] [address] [id number] [address] [place] [address], [place] [address] Feb, [facility] [address] [id number] [address] [place] [address], [place] [address] Feb, [facility] [address] [id number] [address] [place] [address], [place] [address] Feb, [facility] [address] [id number] [address] [place] [id number] Jan, [facility] [address] [id number] [address] [place] [id number] Dec, [facility] [address] [id number] [address] [place] [id number] Nov, [facility] [address] [id number] [address] [place] [id number] Nov, [facility] [address] [id number] [address] [place] [id number] Nov, [facility] [address] [id number] [address] [place] [id number] Oct, [facility] [address] [id number] [address] [place] [id number] Oct, [facility] [address] [id number] [address] [place] [id number] Sep, [facility] [address] [id number] [address] [place] [id number] Sep, [facility] [address] [id number] [address] [place] [id number] Oct, [facility] [address] [id number] [address] [place] [id number] Sep, [facility] [address] [id number] [address] [place] [id number] Aug, [facility] [address] [id number] [address] [place] [id number] Aug, IMMUNIZATIONS No Known Immunizations SOCIAL HISTORY [...]
--- OUTSIDE RECORDS SUMMARY | 2020-05-29 11:10 | XMS REPORT | Clinical Summary ---
Author Author [facility] Organization [facility] Address Unknown Phone Unavailable Care Team Providers Care Web Application Developer Name Role Phone PCP Unavailable Allergies Not [...]
--- OUTSIDE RECORDS SUMMARY | 2020-05-29 11:11 | XMS REPORT ---
Author Author Nanette Atkins Doctor Organization [facility] Address Unknown Phone Unavailable Care Team Providers Care Coordinator Hotels Name Role Phone Migration, Doctor Unavailable Unavailable PROBLEMS Type Condition ICD9-CM Code HJD27-DF Code Onset Dates Condition S tatus SNOMED Code Problem Stage 1 skin ulcer of sacral region L98.429 Active Problem Rotator cuff tendonitis M75.80 March, Act alyssa 368403061 Problem Closed fracture of left distal tibia S82.302A Jan, Active 71159785 Problem Hypokalemia E87.6 March, Active 66501 004 Problem Generalized anxiety disorder F41.1 Jun, 201 1 Active 48496542 Problem Diverticulitis of both small and large intestine without perforation or abscess without bleeding K57.52 Feb, Active 307 471404 Problem 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 May, Active 977721192 Problem Essential hypertension I10 Active 59368774 Problem Anemia D64.9 Sep, Active 5042927 00 Problem 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, limited to b reakdown of skin L97.511 Active Problem Generalized abdominal pain R10.84 Sep, Active 286798218 Problem Chronic pain G89.29 Aug, Active 8242 3001 Problem SOB (shortness of breath) R06.02 Nov, A ctive 656121840 Problem CKD (chronic kidney disease) stage 3, GFR 30-59 ml/min N18.3 Apr, Active 825099381 Problem Diastolic dysfunction I51.9 Jan, Activ e 8453820 Problem Ulcerative colitis K51.90 Jul, Active 44321558 Problem Rheumatoid arthritis M06.9 Sep, Active 22904724 Problem PVC (premature ventricular contraction) I49.3 Nov, Active 58964297 Problem Moderate episode of recurrent major depressive disorder F33.1 Active 584567186 Problem Iron deficiency anemia secondary to inadequate d ietary iron intake D50.8 Active 818610781 Problem 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 Active [id number] ALLERGIES No Information ENCOUNTERS Encounter Location Date Diagnosis [address] 340 [id number] [address] Jul, [address] 340[address] [id number], [place] [address] Apr, [address] [id number], [place] [address] Apr, [address] 340 [id number], [place] [address] Apr, Congenital hypothyroidism wi thout goiter E03.1 ; Diastolic dysfunction I51.9 ; Rheumatoid arthritis M06.9 ; Chronic obstructive pulmonary disease, unspecified COPD type J44.9 ; Ulcerative colitis K51.90 ; CKD (chronic kidney disease) stage 3, GFR 30-59 ml/min N18.3 and Essential hypertension I10 [facility] [address] [facility] [id number] [address] [place] [address] 09 Apr, 2020 Pain in right leg M79.604 an d Pain in left leg M79.[address] 340[address] [id number], [place] [address] 09 Apr, 2020 [facility] [address] [facility] [id number] [address] [place] [address] Apr, Nausea R11.0 [facility] [address] [facility] [id number] [address] [address] March, Fever, unspecified fever cau se R50.9 and Rheumatoid arthritis M06.[address] [id number] [place] [address] March, [facility] [address] [facility] [id number] [address] [address] March, Fever, unspecified fever cau se R50.9 and Rheumatoid arthritis M06.9 [facility] [address] [facility] [id number] [address] [address] March, Nausea R11.[address] 340[address] [id number] [place] [address] March, [address] 340[address] [id number] [place] [address] Feb, [address] 340[address] [id number], [place] [address] Feb, [address] 340[address] [id number] [place] [address] Jan, Nausea alone R11.[address] 340[address] [id number] [place] [address] Jan, [facility] [address] [facility] [id number] [address] [place] [address] Jan, Arthralgia of left temporoma ndibular joint M26.[address] 340[address] [id number] [place] [address] Jan, [address] 340B [id number], [place] [address] Jan, Ulcerative colitis K51.90 ; CKD (chronic kidney disease) stage 3, GFR 30-59 ml/min N18.3 ; Essential hypertension I10 ; Rheumatoid arthritis with rheumatoid factor of right hand without organ or systems involvement M05.741 ; Intrinsic eczema L20.84 and Rectal prolapse K62.3 [facility] [address] [facility] [id number] [address] [place] [address] 12 Jan, 2020 [facility] [address] [facility] [id number] [address] [place] [address] 10 Jan, 2020 [facility] [address] [facility] [id number] [address] [place] [address] Jan, [facility] [address] [facility] [id number] [address] [place] [address] Jan, [facility] [address] [facility] [id number] [address] [place] [address] 05 Jan, [address] 340[address] [id number], [place] [address] Jan, [address] 340[address] [id number], [place] [address] Jan, [address] 340[address] [id number], [place] [address] Jan, [facility] [place] [address] [facility] [id number] [place] [address] Jan, [facility] [address] [facility] [id number] [address] [place] [address] Dec, Skin infection L08.9 and His tory of pneumonia Z87.[address] 340B [id number], [place] [address] Dec, [facility] [address] [facility] [id number] [address] [place] [address] Dec, [facility] [address] [facility] [id number] [address] [place] [address] Dec, [facility] [address] [facility] [id number] [address] [place] [address] Dec, [facility] [address] [facility] [id number] [address] [place] [address] Dec, Allergic reaction, initial e ncounter T78.40XA and Swollen upper lip R22.[address] 340[address] [id number], [place] [address] Dec, [address] 340[address] [id number], [place] [address] 18 Dec, 2019 [facility] [address] [facility] [id number] [address] [address] 13 Dec, 2019 Cough R[address] 340[address] [id number], [place] [address] 11 Dec, 2019 Iron deficiency anemia secon michell to inadequate dietary iron intake D50.[address] 340B [id number], [place] [address] 11 Dec, 2019 [facility] Z00.00 ; 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, 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 ; Chronic obstructive pulmonary disease, unspecified COPD type J44.9 ; Ulcerative colitis K51.90 ; CKD (chronic kidney disease) stage 3, GFR 30-59 ml/min N18.3 ; 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 ; B12 deficiency E53.8 and Rheumatoid arthritis with rheumatoid factor of right hand without organ or systems involvement M05.[address] 340 [id number], [place] [address] 03 Dec, [address] 340B [id number], [place] [address] Nov, [address] 340[address] [id number], [place] [address] 14 Nov, 2019 Other specified peripheral v ascular diseases I73.89 ; Hypertensive heart disease with heart failure I11.0 ; 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 ; Rheumatoid arthritis with rheumatoid factor of right hand without organ or systems involvement M05.741 ; 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 ; Anemia, unspecified type D64.9 and Moderate episode of recurrent major depressive disorder F33.1 [facility] [address] [id number] [address] Nov, [facility] [address] [id number] [place] [address] Nov, [facility] [place] [address] [id number] [place] [address] Nov, [facility] [address] [id number] [place] [address] Nov, [facility] [address] [id number] [address] [address] Oct, Rhinitis, unspecified type J 31.0 and Concussion without loss of consciousness, subsequent encounter S06.0X0D [facility] [address] [id number] [place] [address] Oct, [facility] [place] [address] [id number] [place] [address] Oct, [facility] [place] [address] [id number] [place] [address] Aug, [facility] [place] [place] [address] [id number] [place] [address] Aug, [facility] [place] [address] [id number] [place] [address] Aug, [facility] [place] [address] [id number] [place] [address] Jul, [facility] [address] [id number] [address] [address] Jul, Right hip pain M25.551 [facility] [address] [id number] [place] [address] Jul, [facility] [place] [address] [id number] [place] [address] Jul, [facility] [place] [address] 340[address] [id number] [place] [address] Jun, Rheumatoid arthritis M06.9 ; Ulcerative colitis K51.90 and Rectal prolapse K62.3 [facility] [place] [address] [id number] [place] [address] Jun, [facility] [address] 340B [id number] [place] [address] Jun, [facility] [address] [facility] [id number] [address] [address] Jun, COPD exacerbation J44.1 [facility] [address] 340[address] [id number], [place] [address] Jun, [facility] [address] 340B [id number] [place] [address] May, [facility] [address] 340[address] [id number], [place] [address] May, Diastolic dysfunction I51.9 [facility] [address] 340B [id number] [place] [address] May, Rectal prolapse K62.3 ; Rheu matoid arthritis M06.9 ; Diastolic dysfunction I51.9 and CKD (chronic kidney disease) stage 3, GFR 30-59 ml/min N18.3 [facility] [place] [address] 340B [id number] [place] [address] May, [facility] [address] [id number] [place] [address] May, [facility] [place] [address] [facility] [id number] [place] [address] May, Inflammation, skin L08.9 and Non-intractable vomiting with nausea, unspecified vomiting type R11.2 [facility] [place] [address] [id number] [place] [address] May, [facility] [address] [id number], [place] [address] Apr, [facility] [address] [id number] [place] [address] Apr, Acute ethmoidal sinusitis, r ecurrence not specified J01.20 and Bronchitis J40 [facility] [place] [address] [id number] [place] [address] Apr, Sore throat J02.9 and Oral thrush B37.0 [facility] [address] [facility] [id number] [place] [address] Apr, Screening for breast cancer Z12.39 [facility] [address] 340[address] [id number], [place] [address] Apr, [facility] [place] [address] 340[address] [id number], [place] [address] Apr, Rheumatoid arthritis M06.9 [facility] [place] [address] 340B [id number], [place] [address] March, [facility] [place] [address] 340B [id number], [place] [address] March, [facility] [address] 340B [id number], [place] [address] March, [facility] [place] [address] 340B [id number], [place] [address] March, [facility] [place] [address] [id number], [place] [address] March, Ulcerative colitis K51.90 an d 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 [facility] [address] 340B [id number] [place] [address] Feb, [facility] [place] [address] [id number], [place] [address] Feb, [facility] [address] [facility] [id number] [place] [address] Jan, [facility] [address] 340B [id number] [place] [address] Jan, Diastolic dysfunction I51.9 ; Rheumatoid arthritis M06.9 ; Ulcerative colitis K51.90 ; Essential hypertension I10 ; Moderate episode of recurrent major depressive disorder F33.1 and Iron deficiency anemia secondary to inadequate dietary iron intake D50.8 [facility] [place] [address] 340B [id number], [place] [address] Jan, [address] 340B [id number], [place] [address] Jan, Acute bronchitis, unspecifie d organism J20.9 and 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 [facility] [address] [place] [id number] [address] [place] [address] Dec, [address] [id number], [place] [address] Dec, [facility] [id number] [place] [address] Nov, Viral upper respiratory illness J06.9 and Nausea alone R11.0 [facility] [address] [place] [id number] [address] [place] [address] Oct, [facility] [address] [place] [id number] [address] [place] [address] Oct, [facility] [address] [place] [address] Oct, [facility] [address] [facility] [id number] [address] [place] [address] Aug, [facility] [address] [place] [id number] [address] [place] [address] March, [facility] [address] [place] [id number] [address] [place] [address] Feb, [facility] [address] [place] [id number] [address] [place] [address] Feb, [facility] [address] [id number] [address] [place] [address], [place] [address] Jan, [facility] [address] [id number] [address] [place] [address], [place] [address] Jan, [facility] [address] [id number] [address] [place] [address], [place] [address] Oct, [facility] [address] [id number] [address] [place] [address], [place] [address] Oct, [facility] [address] [id number] [address] [place] [address], [place] [address] Oct, [facility] [address] [id number] [address] [place] [address], [place] [address] Sep, [facility] [address] [id number] [address] [place] [address], [place] [address] Sep, [facility] [address] [id number] [address] [place] [address], [place] [address] Sep, [facility] [address] [id number] [address] [place] [address], [place] [address] Sep, [facility] [address] [id number] [address] [place] [address] Sep, [facility] [address] [id number] [address] [place] [address] Aug, [facility] [address] [id number] [address] [place] [address] Aug, [facility] [address] [id number] [address] [place] [address], [place] [address] Jul, [facility] [address] [id number] [address] [place] [address], [place] [address] Jul, [facility] [address] [id number] [address] [place] [address] Jul, [facility] [address] [id number] [address] [place] [address] 10 Jul, 2013 [facility] [address] [id number] [address] [place] [address], [place] [address] 08 Jul, 2013 [facility] [address] [id number] [address] [place] [address], [place] [address] Jul, 2013 [facility] [address] [id number] [address] [place] [address], [place] [address] May, 2013 [facility] [address] [id number] [address] [place] [address], [place] [address] May, 2013 [facility] [address] [id number] [address] [place] [address], [place] [address] May, [facility] [address] [id number] [address] [place] [address], [place] [address] May, [facility] [address] [id number] [address] [place] [address], [place] [address] May, [facility] [address] [id number] [address] [place] [address], [place] [address] May, [facility] [address] [id number] [address] [place] [address], [place] [address] Apr, [facility] [address] [id number] [address] [place] [address], [place] [address] Apr, [facility] [address] [id number] [address] [place] [address], [place] [address] Apr, [facility] [address] [id number] [address] [place] [address], [place] [address] Apr, [facility] [address] [id number] [address] [place] [address], [place] [address] Apr, [facility] [address] [id number] [address] [place] [address], [place] [address] Apr, [facility] [address] [id number] [address] [place] [address], [place] [address] Apr, [facility] [address] [id number] [address] [place] [address], [place] [address] Apr, [facility] [address] [id number] [address] [place] [address], [place] [address] March, [facility] [address] [id number] [address] [place] [address], [place] [address] March, [facility] [address] [id number] [address] [place] [address], [place] [address] March, [facility] [address] [id number] [address] [place] [address], [place] [address] Feb, [facility] [address] [id number] [address] [place] [address], [place] [address] Feb, [facility] [address] [id number] [address] [place] [address], [place] [address] Feb, [facility] [address] [id number] [address] [place] [address], [place] [address] Feb, [facility] [address] [id number] [address] [place] [address], [place] [address] Feb, [facility] [address] [id number] [address] [place] [address], [place] [address] Feb, [facility] [address] [id number] [address] [place] [address], [place] [address] Feb, [facility] [address] [id number] [address] [place] [address], [place] [address] Feb, [facility] [address] [id number] [address] [place] [address], [place] [address] Jan, [facility] [address] [id number] [address] [place] [address], [place] [address] Jan, [facility] [address] [id number] [address] [place] [address], [place] [id number] Dec, [facility] [address] [id number] [address] [place] [address], [place] [address] Dec, [facility] [address] [id number] [address] [place] [address], [place] [address] Dec, [facility] [address] [id number] [address] [place] [address], [place] [address] Dec, [facility] [address] [id number] [address] [place] [address], [place] [address] Dec, [facility] [address] [id number] [address] [place] [address], [place] [address] Nov, [facility] [address] [id number] [address] [place] [address], [place] [address] Nov, [facility] [address] [id number] [address] [place] [address], [place] [id number] Nov, [facility] [address] [id number] [address] [place] [address], [place] [id number] Nov, [facility] [address] [id number] [address] [place] [address], [place] [id number] Nov, [facility] [address] [id number] [address] [place] [address], [place] [id number] Nov, [facility] [address] [id number] [address] [place] [address], [place] [id number] Oct, [facility] [address] [id number] [address] [place] [address], [place] [id number] Oct, [facility] [address] [id number] [address] [place] [address], [place] [id number] Sep, [facility] [address] [id number] [address] [place] [address], [place] [id number] Sep, [facility] [address] [id number] [address] [place] [address], [place] [id number] Sep, [facility] [address] [id number] [address] [place] [address], [place] [id number] Sep, [facility] [address] [id number] [address] [place] [address], [place] [id number] Sep, [facility] [address] [id number] [address] [place] [address], [place] [id number] Sep, [facility] [address] [id number] [address] [place] [address], [place] [id number] 14 Aug, 2013 [facility] [address] [id number] [address] [place] [address], [place] [id number] Aug, [facility] [address] [id number] [address] [place] [address], [place] [id number] May, [facility] [address] [id number] [address] [place] [address], [place] [id number] May, [facility] [address] [id number] [address] [place] [address], [place] [id number] May, [facility] [address] [id number] [address] [place] [address], [place] [id number] May, [facility] [address] [id number] [address] [place] [address], [place] [id number] Apr, [facility] [address] [id number] [address] [place] [address], [place] [id number] Feb, [facility] [address] [id number] [address] [place] [address], [place] [id number] Jan, [facility] [address] [id number] [address] [place] [address], [place] [id number] 24 Nov, 2012 [facility] [address] [id number] [address] [place] [address], [place] [id number] Nov, [facility] [address] [id number] [address] [place] [address], [place] [id number] Nov, [facility] [address] [id number] [address] [place] [address], [place] [id number] Nov, [facility] [address] [id number] [address] [place] [address], [place] [id number] Oct, [facility] [address] [id number] [address] [place] [address], [place] [id number] 31 Oct, 2012 [facility] [address] [id number] [address] [place] [address], [place] [id number] Oct, [facility] [address] [id number] [address] [place] [address], [place] [id number] Oct, [facility] [address] [id number] [address] [place] [address], [place] [id number] Oct, [facility] [address] [id number] [address] [place] [address], [place] [id number] Oct, [facility] [address] [id number] [address] [place] [address], [place] [id number] Oct, [facility] [address] [id number] [address] [place] [address], [place] [id number] Oct, [facility] [address] [id number] [address] [place] [address], [place] [id number] Sep, [facility] [address] [id number] [address] [place] [address], [place] [id number] Sep, [facility] [address] [id number] [address] [place] [address], [place] [id number] 16 Aug, 2012 [facility] [address] [id number] [address] [place] [address], [place] [id number] Aug, [facility] [address] [id number] [address] [place] [address], [place] [id number] 24 Jul, 2012 [facility] [address] [id number] [address] [place] [address], [place] [id number] Jul, [facility] [address] [id number] [address] [place] [address], [place] [id number] Jun, [facility] [address] [id number] [address] [place] [address], [place] [id number] Jun, [facility] [address] [id number] [address] [place] [id number] Jun, [facility] [address] [id number] [address] [place] [address], [place] [id number] Jun, [facility] [address] [id number] [address] [place] [address], [place] [id number] May, [facility] [address] [id number] [address] [place] [address], [place] [id number] May, [facility] [address] [id number] [address] [place] [address], [place] [id number] May, [facility] [address] [id number] [address] [place] [address], [place] [id number] May, [facility] [address] [id number] [address] [place] [address], [place] [id number] May, [facility] [address] [id number] [address] [place] [address], [place] [id number] May, [facility] [address] [id number] [address] [place] [address], [place] [id number] Apr, [facility] [address] [id number] [address] [place] [address], [place] [id number] March, [facility] [address] [id number] [address] [place] [address], [place] [id number] March, [facility] [address] [id number] [address] [place] [address], [place] [id number] Feb, [facility] [address] [id number] [address] [place] [address], [place] [id number] Feb, [facility] [address] [id number] [address] [place] [address], [place] [id number] Feb, [facility] [address] [id number] [address] [place] [address], [place] [id number] Feb, [facility] [address] [id number] [address] [place] [address], [place] [id number] Jan, [facility] [address] [id number] [address] [place] [id number] 07 Dec, 2011 [facility] [address] [id number] [address] [place] [id number] Nov, [facility] [address] [id number] [address] [place] [id number] Nov, [facility] [address] [id number] [address] [place] [id number] Nov, [facility] [address] [id number] [address] [place] [id number] Oct, [facility] [address] [id number] [address] [place] [id number] Oct, [facility] [address] [id number] [address] [place] [id number] Sep, [facility] [address] [id number] [address] [place] [id number] Sep, [facility] [address] [id number] [address] [place] [id number] Oct, [facility] [address] [id number] [address] [place] [id number] Sep, [facility] [address] [id number] [address] [place] [id number] Aug, [facility] [address] [id number] [address] [place] [id number] Aug, IMMUNIZATIONS No Known Immunizations SOCIAL HISTORY Never Assessed REASON FOR VISIT PLAN OF CARE VITAL SIGNS Height 64 in 2013-09-15 Weight 157.5 lbs 2013-09-15 Temperature 98.6 degrees Fahrenheit 2013-09-15 Heart Rate 88 bpm 2013-09-15 Respiratory Rate 24 2013-09-15 Blood pressure systolic 166 mmHg 2013-09-15 Blood pressure diastolic 114 mmHg 2013-09-15 MEDICATIONS Unknown Medications RESULTS No Results PROCEDURES [...]
--- OUTSIDE RECORDS SUMMARY | 2020-05-29 11:11 | XMS REPORT ---
Author Author Nanette Atkins Doctor Organization [facility] Address Unknown Phone Unavailable Care Team Providers Care Acid Adjuster Name Role Phone Migration, Doctor Unavailable Unavailable PROBLEMS Type Condition ICD9-CM Code QYV10-CT Code Onset Dates Condition S tatus SNOMED Code Problem Stage 1 skin ulcer of sacral region L98.429 Active Problem Rotator cuff tendonitis M75.80 March, Act alyssa [id number] Problem Closed fracture of left distal tibia S82.302A Jan, Active 14258866 Problem Hypokalemia E87.6 March, Active 35839 004 Problem Generalized anxiety disorder F41.1 Jun, 201 1 Active 49432887 Problem Diverticulitis of both small and large intestine without perforation or abscess without bleeding K57.52 Feb, Active 307 796910 Problem 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 May, Active 592667416 Problem Essential hypertension I10 Active 93949625 Problem Anemia D64.9 Sep, Active 2316903 00 Problem 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, limited to b reakdown of skin L97.511 Active Problem Generalized abdominal pain R10.84 Sep, Active 356199252 Problem Chronic pain G89.29 Aug, Active 8242 3001 Problem SOB (shortness of breath) R06.02 Nov, A ctive 521428843 Problem CKD (chronic kidney disease) stage 3, GFR 30-59 ml/min N18.3 Apr, Active 029340434 Problem Diastolic dysfunction I51.9 Jan, Activ e 2367165 Problem Ulcerative colitis K51.90 Jul, Active 12875320 Problem Rheumatoid arthritis M06.9 Sep, Active 89992971 Problem PVC (premature ventricular contraction) I49.3 Nov, Active 84496903 Problem Moderate episode of recurrent major depressive disorder F33.1 Active 248562726 Problem Iron deficiency anemia secondary to inadequate d ietary iron intake D50.8 Active 734095887 Problem 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 Active [id number] ALLERGIES No Information ENCOUNTERS Encounter Location Date Diagnosis [address] 340 [id number], [place] [address] Jul, [address] 340B [id number], [place] [address] Apr, [address] 340 [id number], [place] [address] Apr, [address] 340 [id number], [place] [address] Apr, Congenital hypothyroidism wi thout goiter E03.1 ; Diastolic dysfunction I51.9 ; Rheumatoid arthritis M06.9 ; Chronic obstructive pulmonary disease, unspecified COPD type J44.9 ; Ulcerative colitis K51.90 ; CKD (chronic kidney disease) stage 3, GFR 30-59 ml/min N18.3 and Essential hypertension I10 [facility] [address] [facility] [id number] [address] [place] [address] 09 Apr, 2020 Pain in right leg M79.604 an d Pain in left leg M79.[address] 340B [id number], [place] [address] 09 Apr, 2020 [facility] [address] [facility] [id number] [address] [place] [address] Apr, Nausea R11.0 [facility] [address] [facility] [id number] [place] [address] March, Fever, unspecified fever cau se R50.9 and Rheumatoid arthritis M06.[address] 340[address] [id number] [place] [address] March, [facility] [address] [facility] [id number] [place] [address] March, Fever, unspecified fever cau se R50.9 and Rheumatoid arthritis M06.9 [facility] [address] [facility] [id number] [place] [address] March, Nausea R11.[address] 340B [id number] [place] [address] March, [address] 340B [id number] [place] [address] Feb, [address] 340B [id number], [place] [address] Feb, [address] 340B [id number] [place] [address] Jan, Nausea alone R11.[address] 340B [id number] [place] [address] Jan, [facility] [address] [facility] [id number] [address] [place] [address] Jan, Arthralgia of left temporoma ndibular joint M26.[address] 340B [id number] [place] [address] Jan, [address] 340B [id number], [place] [address] Jan, Ulcerative colitis K51.90 ; CKD (chronic kidney disease) stage 3, GFR 30-59 ml/min N18.3 ; Essential hypertension I10 ; Rheumatoid arthritis with rheumatoid factor of right hand without organ or systems involvement M05.741 ; Intrinsic eczema L20.84 and Rectal prolapse K62.3 [facility] [address] [facility] [id number] [address] [place] [address] 12 Jan, 2020 [facility] [address] [facility] [id number] [address] [place] [address] 10 Jan, 2020 [facility] [address] [facility] [id number] [address] [place] [address] Jan, [facility] [address] [facility] [id number] [address] [place] [address] Jan, [facility] [address] [facility] [id number] [address] [place] [address] 05 Jan, [address] 340B [id number], [place] [address] Jan, [address] 340B [id number], [place] [address] Jan, [address] 340B [id number], [place] [address] Jan, [facility] [place] [address] [facility] [id number] [place] [address] Jan, [facility] [address] [facility] [id number] [address] [place] [address] Dec, Skin infection L08.9 and His tory of pneumonia Z87.[address] 340B [id number], [place] [address] Dec, [facility] [address] [facility] [id number] [address] [place] [address] Dec, [facility] [address] [facility] [id number] [address] [place] [address] Dec, [facility] [address] [facility] [id number] [address] [place] [address] Dec, [facility] [address] [facility] [id number] [address] [place] [address] Dec, Allergic reaction, initial e ncounter T78.40XA and Swollen upper lip R22.[address] 340B [id number], [place] [address] Dec, [address] 340B [id number], [place] [address] 18 Dec, 2019 [facility] [address] [facility] [id number] [place] [address] 13 Dec, 2019 Cough R05 [address] 340B [id number], [place] [address] 11 Dec, 2019 Iron deficiency anemia secon michell to inadequate dietary iron intake D50.[address] 340B [id number], [place] [address] 11 Dec, 2019 [facility] Z[facility].00 ; 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, 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 ; Chronic obstructive pulmonary disease, unspecified COPD type J44.9 ; Ulcerative colitis K51.90 ; CKD (chronic kidney disease) stage 3, GFR 30-59 ml/min N18.3 ; 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 ; B12 deficiency E53.8 and Rheumatoid arthritis with rheumatoid factor of right hand without organ or systems involvement M05.[address] 340 [id number], [place] [address] 03 Dec, [address] 340B [id number], [place] [address] Nov, [address] 340B [id number], [place] [address] 14 Nov, 2019 Other specified peripheral v [...] major depressive disorder F33.1 [facility] [address] [id number] [place] [address] Nov, [facility] [address] [id number] [place] [address] Nov, [facility] [address] [id number] [place] [address] Nov, [facility] [address] [id number] [place] [address] Nov, [facility] [address] [id number] [address] [address] Oct, Rhinitis, unspecified type J 31.0 and Concussion without loss of consciousness, subsequent encounter S06.0X0D [facility] [address] [id number] [place] [address] Oct, [facility] [address] [id number] [place] [address] Oct, [facility] [place] [address] [id number] [place] [address] Aug, [facility] [place] [address] [id number] [place] [address] Aug, [facility] [place] [address] [id number] [place] [address] Aug, [facility] [place] [address] [id number] [place] [address] Jul, [facility] [address] [id number] [address] [address] Jul, Right hip pain M25.551 [facility] [address] [id number] [place] [address] Jul, [facility] [place] [address] [id number] [place] [address] Jul, [facility] [place] [address] 340B [id number] [place] [address] Jun, Rheumatoid arthritis M06.9 ; Ulcerative colitis K51.90 and Rectal prolapse K62.3 [facility] [address] [id number] [place] [address] Jun, [facility] [address] 340B [id number] [place] [address] Jun, [facility] [address] [facility] [id number] [address] [address] Jun, COPD exacerbation J44.1 [facility] [address] 340B [id number], [place] [address] Jun, [facility] [address] 340B [id number] [place] [address] May, [facility] [address] 340B [id number], [place] [address] May, Diastolic dysfunction I51.9 [facility] [address] 340B [id number] [place] [address] May, Rectal prolapse K62.3 ; Rheu matoid arthritis M06.9 ; Diastolic dysfunction I51.9 and CKD (chronic kidney disease) stage 3, GFR 30-59 ml/min N18.3 [facility] [address] 340B [id number] [place] [address] May, [facility] [address] [id number] [place] [address] May, [facility] [place] [address] [facility] [id number] [place] [address] May, Inflammation, skin L08.9 and Non-intractable vomiting with nausea, unspecified vomiting type R11.2 [facility] [address] [id number] [place] [address] May, [facility] [address] 340[address] [id number], [place] [address] Apr, [facility] [place] [address] [id number] [place] [address] Apr, Acute ethmoidal sinusitis, r ecurrence not specified J01.20 and Bronchitis J40 [facility] [place] [address] [id number] [place] [address] Apr, Sore throat J02.9 and Oral thrush B37.0 [facility] [address] [facility] [id number] [place] [address] Apr, Screening for breast cancer Z12.39 [facility] [address] 340B [id number], [place] [address] Apr, [facility] [place] [address] 340[address] [id number], [place] [address] Apr, Rheumatoid arthritis M06.9 [facility] [place] [address] 340B [id number], [place] [address] March, [facility] [place] [address] 340B [id number], [place] [address] March, [facility] [address] 340B [id number], [place] [address] March, [facility] [place] [address] 340B [id number], [place] [address] March, [facility] [place] [address] 340[address] [id number], [place] [address] March, Ulcerative colitis K51.90 an d 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 [facility] [address] 340B [id number] [place] [address] Feb, [facility] [place] [address] 340[address] [id number], [place] [address] Feb, [facility] [address] [facility] [id number] [place] [address] Jan, [facility] [address] 340B [id number] [place] [address] Jan, Diastolic dysfunction I51.9 ; Rheumatoid arthritis M06.9 ; Ulcerative colitis K51.90 ; Essential hypertension I10 ; Moderate episode of recurrent major depressive disorder F33.1 and Iron deficiency anemia secondary to inadequate dietary iron intake D50.8 [facility] [address] 340B [id number], [place] [address] Jan, [address] 340B [id number], [place] [address] Jan, Acute bronchitis, unspecifie d organism J20.9 and 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 [facility] [address] [id number] [address] [place] [address] Dec, [address] [id number], [place] [address] Dec, [facility] [id number] [place] [address] Nov, Viral upper respiratory illness J06.9 and Nausea alone R11.0 [facility] [address] [id number] [address] [place] [address] Oct, [facility] [address] [id number] [address] [place] [address] Oct, [facility] [id number] [place] [address] Oct, [facility] [address] [facility] [id number] [address] [place] [address] Aug, [facility] [address] [id number] [address] [place] [address] March, [facility] [address] [id number] [address] [place] [address] Feb, [facility] [address] [id number] [address] [place] [address] Feb, [facility] [address] [id number] [address] [place] [address], [place] [address] Jan, [facility] [address] [id number] [address] [place] [address], [place] [address] Jan, [facility] [address] [id number] [address] [place] [address], [place] [address] Oct, [facility] [address] [id number] [address] [place] [address], [place] [address] Oct, [facility] [address] [id number] [address] [place] [address], [place] [address] Oct, [facility] [address] [id number] [address] [place] [address], [place] [address] Sep, [facility] [address] [id number] [address] [place] [address], [place] [address] Sep, [facility] [address] [id number] [address] [place] [address], [place] [address] Sep, [facility] [address] [id number] [address] [place] [address], [place] [address] Sep, [facility] [address] [id number] [address] [place] [address] Sep, [facility] [address] [id number] [address] [place] [address] Aug, [facility] [address] [id number] [address] [place] [address] Aug, [facility] [address] [id number] [address] [place] [address], [place] [address] Jul, [facility] [address] [id number] [address] [place] [address], [place] [address] Jul, [facility] [address] [id number] [address] [place] [address] Jul, [facility] [address] [id number] [address] [place] [address] 10 Jul, 2013 [facility] [address] [id number] [address] [place] [address], [place] [address] 08 Jul, 2013 [facility] [address] [id number] [address] [place] [address], [place] [address] Jul, 2013 [facility] [address] [id number] [address] [place] [address], [place] [address] May, 2013 [facility] [address] [id number] [address] [place] [address], [place] [address] May, 2013 [facility] [address] [id number] [address] [place] [address], [place] [address] May, [facility] [address] [id number] [address] [place] [address], [place] [address] May, [facility] [address] [id number] [address] [place] [address], [place] [address] May, [facility] [address] [id number] [address] [place] [address], [place] [address] May, [facility] [address] [id number] [address] [place] [address], [place] [address] Apr, [facility] [address] [id number] [address] [place] [address], [place] [address] Apr, [facility] [address] [id number] [address] [place] [address], [place] [address] Apr, [facility] [address] [id number] [address] [place] [address], [place] [address] Apr, [facility] [address] [id number] [address] [place] [address], [place] [address] Apr, [facility] [address] [id number] [address] [place] [address], [place] [address] Apr, [facility] [address] [id number] [address] [place] [address], [place] [address] Apr, [facility] [address] [id number] [address] [place] [address], [place] [address] Apr, [facility] [address] [id number] [address] [place] [address], [place] [address] March, [facility] [address] [id number] [address] [place] [address], [place] [address] March, [facility] [address] [id number] [address] [place] [address], [place] [address] March, [facility] [address] [id number] [address] [place] [address], [place] [address] Feb, [facility] [address] [id number] [address] [place] [address], [place] [address] Feb, [facility] [address] [id number] [address] [place] [address], [place] [address] Feb, [facility] [address] [id number] [address] [place] [address], [place] [address] Feb, [facility] [address] [id number] [address] [place] [address], [place] [address] Feb, [facility] [address] [id number] [address] [place] [address], [place] [address] Feb, [facility] [address] [id number] [address] [place] [address], [place] [address] Feb, [facility] [address] [id number] [address] [place] [address], [place] [address] Feb, [facility] [address] [id number] [address] [place] [address], [place] [address] Jan, [facility] [address] [id number] [address] [place] [address], [place] [address] Jan, [facility] [address] [id number] [address] [place] [address], [place] [id number] Dec, [facility] [address] [id number] [address] [place] [address], [place] [address] Dec, [facility] [address] [id number] [address] [place] [address], [place] [address] Dec, [facility] [address] [id number] [address] [place] [address], [place] [address] Dec, [facility] [address] [id number] [address] [place] [address], [place] [address] Dec, [facility] [address] [id number] [address] [place] [address], [place] [address] Nov, [facility] [address] [id number] [address] [place] [address], [place] [address] Nov, [facility] [address] [id number] [address] [place] [address], [place] [address] Nov, [facility] [address] [id number] [address] [place] [address], [place] [address] Nov, [facility] [address] [id number] [address] [place] [address], [place] [address] Nov, [facility] [address] [id number] [address] [place] [address], [place] [address] Nov, [facility] [address] [id number] [address] [place] [address], [place] [address] Oct, [facility] [address] [id number] [address] [place] [address], [place] [address] Oct, [facility] [address] [id number] [address] [place] [address], [place] [address] Sep, [facility] [address] [id number] [address] [place] [address], [place] [address] Sep, [facility] [address] [id number] [address] [place] [address], [place] [address] Sep, [facility] [address] [id number] [address] [place] [address], [place] [address] Sep, [facility] [address] [id number] [address] [place] [address], [place] [address] Sep, [facility] [address] [id number] [address] [place] [address], [place] [address] Sep, [facility] [address] [id number] [address] [place] [address], [place] [address] 14 Aug, 2013 [facility] [address] [id number] [address] [place] [address], [place] [address] Aug, [facility] [address] [id number] [address] [place] [address], [place] [address] May, [facility] [address] [id number] [address] [place] [address], [place] [address] May, [facility] [address] [id number] [address] [place] [address], [place] [address] May, [facility] [address] [id number] [address] [place] [address], [place] [address] May, [facility] [address] [id number] [address] [place] [address], [place] [address] Apr, [facility] [address] [id number] [address] [place] [address], [place] [address] Feb, [facility] [address] [id number] [address] [place] [address], [place] [address] Jan, [facility] [address] [id number] [address] [place] [address], [place] [address] 24 Nov, 2012 [facility] [address] [id number] [address] [place] [address], [place] [address] Nov, [facility] [address] [id number] [address] [place] [address], [place] [address] Nov, [facility] [address] [id number] [address] [place] [address], [place] [address] Nov, [facility] [address] [id number] [address] [place] [address], [place] [address] Oct, [facility] [address] [id number] [address] [place] [address], [place] [address] 31 Oct, 2012 [facility] [address] [id number] [address] [place] [address], [place] [address] Oct, [facility] [address] [id number] [address] [place] [address], [place] [address] Oct, [facility] [address] [id number] [address] [place] [address], [place] [address] Oct, [facility] [address] [id number] [address] [place] [address], [place] [address] Oct, [facility] [address] [id number] [address] [place] [address], [place] [address] Oct, [facility] [address] [id number] [address] [place] [address], [place] [address] Oct, [facility] [address] [id number] [address] [place] [address], [place] [address] Sep, [facility] [address] [id number] [address] [place] [address], [place] [address] Sep, [facility] [address] [id number] [address] [place] [address], [place] [address] 16 Aug, 2012 [facility] [address] [id number] [address] [place] [address], [place] [address] Aug, [facility] [address] [id number] [address] [place] [address], [place] [address] 24 Jul, 2012 [facility] [address] [id number] [address] [place] [address], [place] [address] Jul, [facility] [address] [id number] [address] [place] [address], [place] [address] Jun, [facility] [address] [id number] [address] [place] [address], [place] [address] Jun, [facility] [address] [id number] [address] [place] [address] Jun, [facility] [address] [id number] [address] [place] [address], [place] [address] Jun, [facility] [address] [id number] [address] [place] [address], [place] [address] May, [facility] [address] [id number] [address] [place] [address], [place] [address] May, [facility] [address] [id number] [address] [place] [address], [place] [address] May, [facility] [address] [id number] [address] [place] [address], [place] [address] May, [facility] [address] [id number] [address] [place] [address], [place] [address] May, [facility] [address] [id number] [address] [place] [address], [place] [address] May, [facility] [address] [id number] [address] [place] [address], [place] [address] Apr, [facility] [address] [id number] [address] [place] [address], [place] [address] March, [facility] [address] [id number] [address] [place] [address], [place] [address] March, [facility] [address] [id number] [address] [place] [address], [place] [address] Feb, [facility] [address] [id number] [address] [place] [address], [place] [address] Feb, [facility] [address] [id number] [address] [place] [address], [place] [address] Feb, [facility] [address] [id number] [address] [place] [address], [place] [address] Feb, [facility] [address] [id number] [address] [place] [address], [place] [address] Jan, [facility] [address] [id number] [address] [place] [address] Dec, [facility] [address] [id number] [address] [place] [address] Nov, [facility] [address] [id number] [address] [place] [address] Nov, [facility] [address] [id number] [address] [place] [address] Nov, [facility] [address] [id number] [address] [place] [address] Oct, [facility] [address] [id number] [address] [place] [address] Oct, [facility] [address] [id number] [address] [place] [address] Sep, [facility] [address] [id number] [address] [place] [address] Sep, [facility] [address] [id number] [address] [place] [address] Oct, [facility] [address] [id number] [address] [place] [address] Sep, [facility] [address] [id number] [address] [place] [address] Aug, [facility] [address] [id number] [address] [place] [phone] Aug, IMMUNIZATIONS No Known Immunizations SOCIAL HISTORY [...] History cholecystectomy Surgical History heart cath - [facility] [place] 03/2018 Surgical History hysterectomy Surgical History hernia repair Surgical History tonsillectomy Surgical History Left shoulder joint repair 09/2018 Surgical History Removal of pre cancerous spots on arm /c hest/ nose Surgical History sepulveda cath in till rectum surg on 020 Hospitalization History Multiple Hospital Stays Hospitalization History ER Visit Lisa 05/05/2019
--- OUTSIDE RECORDS SUMMARY | 2020-05-29 11:11 | XMS REPORT ---
Author Author Nanette Atkins Doctor Organization [facility] Address Unknown Phone Unavailable Care Team Providers Care Deputy Assessor Name Role Phone Migration, Doctor Unavailable Unavailable PROBLEMS Type Condition ICD9-CM Code SFC64-FS Code Onset Dates Condition S tatus SNOMED Code Problem Stage 1 skin ulcer of sacral region L98.429 Active Problem Rotator cuff tendonitis M75.80 March, Act alyssa [id number] Problem Closed fracture of left distal tibia S82.302A Jan, Active 12415878 Problem Hypokalemia E87.6 March, Active 37360 004 Problem Generalized anxiety disorder F41.1 Jun, 201 1 Active 26070291 Problem Diverticulitis of both small and large intestine without perforation or abscess without bleeding K57.52 Feb, Active 307 347496 Problem 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 May, Active 379508771 Problem Essential hypertension I10 Active 59927087 Problem Anemia D64.9 Sep, Active 8827266 00 Problem 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, limited to b reakdown of skin L97.511 Active Problem Generalized abdominal pain R10.84 Sep, Active 957320980 Problem Chronic pain G89.29 Aug, Active 8242 3001 Problem SOB (shortness of breath) R06.02 Nov, A ctive 226621176 Problem CKD (chronic kidney disease) stage 3, GFR 30-59 ml/min N18.3 Apr, Active 227735866 Problem Diastolic dysfunction I51.9 Jan, Activ e 3841383 Problem Ulcerative colitis K51.90 Jul, Active 79930557 Problem Rheumatoid arthritis M06.9 Sep, Active 58160751 Problem PVC (premature ventricular contraction) I49.3 Nov, Active 04527528 Problem Moderate episode of recurrent major depressive disorder F33.1 Active 570197745 Problem Iron deficiency anemia secondary to inadequate d ietary iron intake D50.8 Active 023810114 Problem 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 Active [id number] ALLERGIES No Information ENCOUNTERS Encounter Location Date Diagnosis [address] 340 [id number] [address] Jul, [address] 340B [id number], [place] [address] Apr, [address] 340 [id number], [place] [address] Apr, [address] 340 [id number], [place] [address] Apr, Congenital hypothyroidism wi thout goiter E03.1 ; Diastolic dysfunction I51.9 ; Rheumatoid arthritis M06.9 ; Chronic obstructive pulmonary disease, unspecified COPD type J44.9 ; Ulcerative colitis K51.90 ; CKD (chronic kidney disease) stage 3, GFR 30-59 ml/min N18.3 and Essential hypertension I10 [facility] [address] [facility] [id number] [address] [place] [address] 09 Apr, 2020 Pain in right leg M79.604 an d Pain in left leg M79.[address] 340B [id number], [place] [address] 09 Apr, 2020 [facility] [address] [facility] [id number] [address] [place] [address] Apr, Nausea R11.0 [facility] [address] [facility] [id number] [place] [address] March, Fever, unspecified fever cau se R50.9 and Rheumatoid arthritis M06.[address] 340B [id number] [place] [address] March, [facility] [address] [facility] [id number] [place] [address] March, Fever, unspecified fever cau se R50.9 and Rheumatoid arthritis M06.9 [facility] [address] [facility] [id number] [place] [address] March, Nausea R11.[address] 340B [id number] [place] [address] March, [address] 340B [id number] [place] [address] Feb, [address] 340B [id number], [place] [address] Feb, [address] 340B [id number] [place] [address] Jan, Nausea alone R11.[address] 340B [id number] [place] [address] Jan, [facility] [address] [facility] [id number] [address] [place] [address] Jan, Arthralgia of left temporoma ndibular joint M26.[address] 340B [id number] [place] [address] Jan, [address] 340B [id number], [place] [address] Jan, Ulcerative colitis K51.90 ; CKD (chronic kidney disease) stage 3, GFR 30-59 ml/min N18.3 ; Essential hypertension I10 ; Rheumatoid arthritis with rheumatoid factor of right hand without organ or systems involvement M05.741 ; Intrinsic eczema L20.84 and Rectal prolapse K62.3 [facility] [address] [facility] [id number] [address] [place] [address] 12 Jan, 2020 [facility] [address] [facility] [id number] [address] [place] [address] 10 Jan, 2020 [facility] [address] [facility] [id number] [address] [place] [address] Jan, [facility] [address] [facility] [id number] [address] [place] [address] Jan, [facility] [address] [facility] [id number] [address] [place] [address] 05 Jan, [address] 340B [id number], [place] [address] Jan, [address] 340B [id number], [place] [address] Jan, [address] 340B [id number], [place] [address] Jan, [facility] [place] [address] [facility] [id number] [place] [address] Jan, [facility] [address] [facility] [id number] [address] [place] [address] Dec, Skin infection L08.9 and His tory of pneumonia Z87.[address] 340B [id number], [place] [address] Dec, [facility] [address] [facility] [id number] [address] [place] [address] Dec, [facility] [address] [facility] [id number] [address] [place] [address] Dec, [facility] [address] [facility] [id number] [address] [place] [address] Dec, [facility] [address] [facility] [id number] [address] [place] [address] Dec, Allergic reaction, initial e ncounter T78.40XA and Swollen upper lip R22.[address] 340B [id number], [place] [address] Dec, [address] 340B [id number], [place] [address] 18 Dec, 2019 [facility] [address] 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 ; B12 deficiency E53.8 and Rheumatoid arthritis with rheumatoid factor of right hand without organ or systems involvement M05.[address] 340 [id number], [place] [address] 03 Dec, [address] 340B [id number], [place] [address] Nov, [address] 340B [id number], [place] [address] 14 Nov, 2019 Other specified peripheral v [...] major depressive disorder F33.1 [facility] [address] [id number] [place] [address] Nov, [facility] [address] [id number] [place] [address] Nov, [facility] [address] [id number] [place] [address] Nov, [facility] [address] [id number] [place] [address] Nov, [facility] [address] [id number] [place] [address] Oct, Rhinitis, unspecified type J 31.0 and Concussion without loss of consciousness, subsequent encounter S06.0X0D [facility] [address] [id number] [place] [address] Oct, [facility] [place] [address] [id number] [place] [address] Oct, [facility] [place] [address] [id number] [place] [address] Aug, [facility] [place] [address] [id number] [place] [address] Aug, [facility] [place] [address] [id number] [place] [address] Aug, [facility] [place] [address] [id number] [place] [address] Jul, [facility] [address] [id number] [place] [address] Jul, Right hip pain M25.551 [facility] [address] [id number] [place] [address] Jul, [facility] [place] [address] [id number] [place] [address] Jul, [facility] [place] [address] 340B [id number] [place] [address] Jun, Rheumatoid arthritis M06.9 ; Ulcerative colitis K51.90 and Rectal prolapse K62.3 [facility] [address] [id number] [place] [address] Jun, [facility] [address] 340B [id number] [place] [address] Jun, [facility] [address] [facility] [id number] [address] [address] Jun, COPD exacerbation J44.1 [facility] [address] 340B [id number], [place] [address] Jun, [facility] [address] 340B [id number] [place] [address] May, [facility] [address] 340B [id number], [place] [address] May, Diastolic dysfunction I51.9 [facility] [place] [address] 340B [id number] [place] [address] May, Rectal prolapse K62.3 ; Rheu matoid arthritis M06.9 ; Diastolic dysfunction I51.9 and CKD (chronic kidney disease) stage 3, GFR 30-59 ml/min N18.3 [facility] [address] 340B [id number] [place] [address] May, [facility] [address] [id number] [place] [address] May, [facility] [place] [address] [facility] [id number] [place] [address] May, Inflammation, skin L08.9 and Non-intractable vomiting with nausea, unspecified vomiting type R11.2 [facility] [address] [id number] [place] [address] May, [facility] [address] 340[address] [id number], [place] [address] Apr, [facility] [place] [address] [id number] [place] [address] Apr, Acute ethmoidal sinusitis, r ecurrence not specified J01.20 and Bronchitis J40 [facility] [place] [address] [id number] [place] [address] Apr, Sore throat J02.9 and Oral thrush B37.0 [facility] [address] [facility] [id number] [place] [address] Apr, Screening for breast cancer Z12.39 [facility] [address] 340B [id number], [place] [address] Apr, [facility] [place] [address] 340[address] [id number], [place] [address] Apr, Rheumatoid arthritis M06.9 [facility] [place] [address] 340B [id number], [place] [address] March, [facility] [place] [address] 340B [id number], [place] [address] March, [facility] [address] 340B [id number], [place] [address] March, [facility] [place] [address] 340B [id number], [place] [address] March, [facility] [place] [address] [id number], [place] [address] March, Ulcerative colitis K51.90 an d 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 [facility] [address] 340B [id number] [place] [address] Feb, [facility] [place] [address] 340[address] [id number], [place] [address] Feb, [facility] [address] [facility] [id number] [place] [address] Jan, [facility] [address] 340B [id number] [place] [address] Jan, Diastolic dysfunction I51.9 ; Rheumatoid arthritis M06.9 ; Ulcerative colitis K51.90 ; Essential hypertension I10 ; Moderate episode of recurrent major depressive disorder F33.1 and Iron deficiency anemia secondary to inadequate dietary iron intake D50.8 [facility] [address] 340B [id number], [place] [address] Jan, [address] 340B [id number], [place] [address] Jan, Acute bronchitis, unspecifie d organism J20.9 and 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 [facility] [address] [place] [id number] [address] [place] [address] Dec, [address] [id number], [place] [address] Dec, [facility] [id number] [place] [address] Nov, Viral upper respiratory illness J06.9 and Nausea alone R11.0 [facility] [address] [place] [id number] [address] [place] [address] Oct, [facility] [address] [place] [id number] [address] [place] [address] Oct, [facility] [address] [place] [address] Oct, [facility] [address] [facility] [id number] [address] [place] [address] Aug, [facility] [address] [place] [id number] [address] [place] [address] March, [facility] [address] [place] [id number] [address] [place] [address] Feb, [facility] [address] [place] [id number] [address] [place] [address] Feb, [facility] [address] [id number] [address] [place] [address], [place] [address] Jan, [facility] [address] [id number] [address] [place] [address], [place] [address] Jan, [facility] [address] [id number] [address] [place] [address], [place] [address] Oct, [facility] [address] [id number] [address] [place] [address], [place] [address] Oct, [facility] [address] [id number] [address] [place] [address], [place] [address] Oct, [facility] [address] [id number] [address] [place] [address], [place] [address] Sep, [facility] [address] [id number] [address] [place] [address], [place] [address] Sep, [facility] [address] [id number] [address] [place] [address], [place] [address] Sep, [facility] [address] [id number] [address] [place] [address], [place] [address] Sep, [facility] [address] [id number] [address] [place] [address] Sep, [facility] [address] [id number] [address] [place] [address] Aug, [facility] [address] [id number] [address] [place] [address] Aug, [facility] [address] [id number] [address] [place] [address], [place] [address] Jul, [facility] [address] [id number] [address] [place] [address], [place] [address] Jul, [facility] [address] [id number] [address] [place] [address] Jul, [facility] [address] [id number] [address] [place] [address] 10 Jul, 2013 [facility] [address] [id number] [address] [place] [address], [place] [address] 08 Jul, 2013 [facility] [address] [id number] [address] [place] [address], [place] [address] Jul, 2013 [facility] [address] [id number] [address] [place] [address], [place] [address] May, 2013 [facility] [address] [id number] [address] [place] [address], [place] [address] May, 2013 [facility] [address] [id number] [address] [place] [address], [place] [address] May, [facility] [address] [id number] [address] [place] [address], [place] [address] May, [facility] [address] [id number] [address] [place] [address], [place] [address] May, [facility] [address] [id number] [address] [place] [address], [place] [address] May, [facility] [address] [id number] [address] [place] [address], [place] [address] Apr, [facility] [address] [id number] [address] [place] [address], [place] [address] Apr, [facility] [address] [id number] [address] [place] [address], [place] [address] Apr, [facility] [address] [id number] [address] [place] [address], [place] [address] Apr, [facility] [address] [id number] [address] [place] [address], [place] [address] Apr, [facility] [address] [id number] [address] [place] [address], [place] [address] Apr, [facility] [address] [id number] [address] [place] [address], [place] [address] Apr, [facility] [address] [id number] [address] [place] [address], [place] [address] Apr, [facility] [address] [id number] [address] [place] [address], [place] [address] March, [facility] [address] [id number] [address] [place] [address], [place] [address] March, [facility] [address] [id number] [address] [place] [address], [place] [address] March, [facility] [address] [id number] [address] [place] [address], [place] [address] Feb, [facility] [address] [id number] [address] [place] [address], [place] [address] Feb, [facility] [address] [id number] [address] [place] [address], [place] [address] Feb, [facility] [address] [id number] [address] [place] [address], [place] [address] Feb, [facility] [address] [id number] [address] [place] [address], [place] [address] Feb, [facility] [address] [id number] [address] [place] [address], [place] [address] Feb, [facility] [address] [id number] [address] [place] [address], [place] [address] Feb, [facility] [address] [id number] [address] [place] [address], [place] [address] Feb, [facility] [address] [id number] [address] [place] [address], [place] [address] Jan, [facility] [address] [id number] [address] [place] [address], [place] [address] Jan, [facility] [address] [id number] [address] [place] [address], [place] [id number] Dec, [facility] [address] [id number] [address] [place] [address], [place] [address] Dec, [facility] [address] [id number] [address] [place] [address], [place] [address] Dec, [facility] [address] [id number] [address] [place] [address], [place] [address] Dec, [facility] [address] [id number] [address] [place] [address], [place] [address] Dec, [facility] [address] [id number] [address] [place] [address], [place] [address] Nov, [facility] [address] [id number] [address] [place] [address], [place] [address] Nov, [facility] [address] [id number] [address] [place] [address], [place] [address] Nov, [facility] [address] [id number] [address] [place] [address], [place] [address] Nov, [facility] [address] [id number] [address] [place] [address], [place] [address] Nov, [facility] [address] [id number] [address] [place] [address], [place] [address] Nov, [facility] [address] [id number] [address] [place] [address], [place] [address] Oct, [facility] [address] [id number] [address] [place] [address], [place] [address] Oct, [facility] [address] [id number] [address] [place] [address], [place] [address] Sep, [facility] [address] [id number] [address] [place] [address], [place] [address] Sep, [facility] [address] [id number] [address] [place] [address], [place] [address] Sep, [facility] [address] [id number] [address] [place] [address], [place] [address] Sep, [facility] [address] [id number] [address] [place] [address], [place] [address] Sep, [facility] [address] [id number] [address] [place] [address], [place] [address] Sep, [facility] [address] [id number] [address] [place] [address], [place] [address] 14 Aug, 2013 [facility] [address] [id number] [address] [place] [address], [place] [address] Aug, [facility] [address] [id number] [address] [place] [address], [place] [address] May, [facility] [address] [id number] [address] [place] [address], [place] [address] May, [facility] [address] [id number] [address] [place] [address], [place] [address] May, [facility] [address] [id number] [address] [place] [address], [place] [address] May, [facility] [address] [id number] [address] [place] [address], [place] [address] Apr, [facility] [address] [id number] [address] [place] [address], [place] [address] Feb, [facility] [address] [id number] [address] [place] [address], [place] [address] Jan, [facility] [address] [id number] [address] [place] [address], [place] [address] 24 Nov, 2012 [facility] [address] [id number] [address] [place] [address], [place] [address] Nov, [facility] [address] [id number] [address] [place] [address], [place] [address] Nov, [facility] [address] [id number] [address] [place] [address], [place] [address] Nov, [facility] [address] [id number] [address] [place] [address], [place] [address] Oct, [facility] [address] [id number] [address] [place] [address], [place] [address] 31 Oct, 2012 [facility] [address] [id number] [address] [place] [address], [place] [address] Oct, [facility] [address] [id number] [address] [place] [address], [place] [address] Oct, [facility] [address] [id number] [address] [place] [address], [place] [address] Oct, [facility] [address] [id number] [address] [place] [address], [place] [address] Oct, [facility] [address] [id number] [address] [place] [address], [place] [address] Oct, [facility] [address] [id number] [address] [place] [address], [place] [address] Oct, [facility] [address] [id number] [address] [place] [address], [place] [address] Sep, [facility] [address] [id number] [address] [place] [address], [place] [address] Sep, [facility] [address] [id number] [address] [place] [address], [place] [address] 16 Aug, 2012 [facility] [address] [id number] [address] [place] [address], [place] [address] Aug, [facility] [address] [id number] [address] [place] [address], [place] [address] 24 Jul, 2012 [facility] [address] [id number] [address] [place] [address], [place] [address] Jul, [facility] [address] [id number] [address] [place] [address], [place] [address] Jun, [facility] [address] [id number] [address] [place] [address], [place] [address] Jun, [facility] [address] [id number] [address] [place] [id number] Jun, [facility] [address] [id number] [address] [place] [address], [place] [address] Jun, [facility] [address] [id number] [address] [place] [address], [place] [address] May, [facility] [address] [id number] [address] [place] [address], [place] [address] May, [facility] [address] [id number] [address] [place] [address], [place] [address] May, [facility] [address] [id number] [address] [place] [address], [place] [address] May, [facility] [address] [id number] [address] [place] [address], [place] [address] May, [facility] [address] [id number] [address] [place] [address], [place] [address] May, [facility] [address] [id number] [address] [place] [address], [place] [address] Apr, [facility] [address] [id number] [address] [place] [address], [place] [address] March, [facility] [address] [id number] [address] [place] [address], [place] [address] March, [facility] [address] [id number] [address] [place] [address], [place] [address] Feb, [facility] [address] [id number] [address] [place] [address], [place] [address] Feb, [facility] [address] [id number] [address] [place] [address], [place] [address] Feb, [facility] [address] [id number] [address] [place] [address], [place] [address] Feb, [facility] [address] [id number] [address] [place] [address], [place] [address] Jan, [facility] [address] [id number] [address] [place] [id number] Dec, [facility] [address] [id number] [address] [place] [id number] Nov, [facility] [address] [id number] [address] [place] [phone] Nov, [facility] [address] [id number] [address] [place] [id number] Nov, [facility] [address] [id number] [address] [place] [id number] Oct, [facility] [address] [id number] [address] [place] [phone] Oct, [facility] [address] [id number] [address] [place] [id number] Sep, [facility] [address] [id number] [address] [place] [id number] Sep, [facility] [address] [id number] [address] [place] [id number] Oct, [facility] [address] [id number] [address] [place] [id number] Sep, [facility] [address] [id number] [address] [place] [id number] Aug, [facility] [address] [id number] [address] [place] [id number] Aug, IMMUNIZATIONS No Known Immunizations SOCIAL HISTORY [...] cholecystectomy Surgical History heart cath - [facility] 03/2018 Surgical History hysterectomy Surgical History hernia repair Surgical History tonsillectomy Surgical History Left shoulder joint repair 09/2018 Surgical History Removal of pre cancerous spots on arm /c hest/ nose Surgical History sepulveda cath in till rectum surg on 020 Hospitalization History Multiple Hospital Stays Hospitalization History ER Visit Lisa 05/05/2019
--- OUTSIDE RECORDS SUMMARY | 2020-05-29 11:11 | XMS REPORT ---
Author Author Nanette Atkins Doctor Organization [facility] Address Unknown Phone Unavailable Care Team Providers Care Visualizer Name Role Phone Migration, Doctor Unavailable Unavailable PROBLEMS Type Condition ICD9-CM Code [id number] Code Onset Dates Condition S tatus SNOMED Code Problem Stage 1 skin ulcer of sacral region L98.429 Active Problem Rotator cuff tendonitis M75.80 March, Act alyssa 813735035 Problem Closed fracture of left distal tibia S82.302A Jan, Active 62211019 Problem Hypokalemia E87.6 March, Active 61423 004 Problem Generalized anxiety disorder F41.1 Jun, 201 1 Active 76940026 Problem Diverticulitis of both small and large intestine without perforation or abscess without bleeding K57.52 Feb, Active 307 060460 Problem 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 May, Active 619812008 Problem Essential hypertension I10 Active 10720830 Problem Anemia D64.9 Sep, Active 8453583 00 Problem 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, limited to b reakdown of skin L97.511 Active Problem Generalized abdominal pain R10.84 Sep, Active 325732703 Problem Chronic pain G89.29 Aug, Active 8242 3001 Problem SOB (shortness of breath) R06.02 Nov, A ctive 415225880 Problem CKD (chronic kidney disease) stage 3, GFR 30-59 ml/min N18.3 Apr, Active 371227808 Problem Diastolic dysfunction I51.9 Jan, Activ e 9997808 Problem Ulcerative colitis K51.90 Jul, Active 82564017 Problem Rheumatoid arthritis M06.9 Sep, Active 89455304 Problem PVC (premature ventricular contraction) I49.3 Nov, Active 46768254 Problem Moderate episode of recurrent major depressive disorder F33.1 Active 051371872 Problem Iron deficiency anemia secondary to inadequate d ietary iron intake D50.8 Active 689260766 Problem 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 Active [id number] ALLERGIES No Information ENCOUNTERS Encounter Location Date Diagnosis [facility] [address] [facility] [id number] [address] [place] [address] 18 Mar, 2020 Nausea [address] 340 [id number] [address] March, [address] 340B [id number] [address] Feb, [address] 340B [id number], [place] [address] 14 Feb, [address] 340B [id number], [place] [address] Jan, Nausea alone R11.[address] 340 [id number], [place] [address] 17 Jan, 2020 [facility] [address] [facility] [id number] [address] [place] [address] 13 Jan, 2020 Arthralgia of left temporoma ndibular joint M26.[address] 340B [id number], [place] [address] Jan, [address] 340[address] [id number], [place] [address] 12 Jan, 2020 Ulcerative colitis K51.90 ; CKD (chronic kidney disease) stage 3, GFR 30-59 ml/min N18.3 ; Essential hypertension I10 ; Rheumatoid arthritis with rheumatoid factor of right hand without organ or systems involvement M05.741 ; Intrinsic eczema L20.84 and Rectal prolapse K62.3 [facility] [address] [facility] [id number] [address] [place] [address] Jan, [facility] [address] [facility] [id number] [address] [place] [address] Jan, [facility] [address] [facility] [id number] [address] [place] [address] Jan, [facility] [address] [facility] [id number] [address] [place] [address] Jan, [facility] [address] [facility] [id number] [address] [place] [address] Jan, [address] 340B [id number], [place] [address] Jan, [address] 340[address] [id number][place] [address] Jan, [address] 340[address] [id number] [address] Jan, [facility] [address] [facility] [id number] [place] [address] Jan, [facility] [address] [facility] [id number] [address] [place] [address] Dec, Skin infection L08.9 and His tory of pneumonia Z87.[address] 340B [id number], [place] [address] Dec, [facility] [address] [facility] [id number] [address] [place] [address] Dec, [facility] [address] [facility] [id number] [address] [place] [address] Dec, [facility] [address] [facility] [id number] [place] [address] 20 Dec, 2019 [facility] [address] [facility] [id number] [place] [address] 19 Dec, 2019 Allergic reaction, initial e ncounter T78.40XA and Swollen upper lip R22.[address] [id number] [address] 19 Dec, [address] 340 [id number], [place] [address] 18 Dec, 2019 [facility] [address] [facility] [id number] [address] [place] [address] 13 Dec, 2019 Cough R[address] [id number] [address] 11 Dec, 2019 Iron deficiency anemia secon michell to inadequate dietary iron intake D50.[address] [id number][place] [address] 11 Dec, 2019 Encounter for Medicare annua l wellness exam Z00.00 ; 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, 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 ; Chronic obstructive pulmonary disease, unspecified COPD type J44.9 ; Ulcerative colitis K51.90 ; CKD (chronic kidney disease) stage 3, GFR 30-59 ml/min N18.3 ; Atherosclerosis of chipewwa coronary artery of chipewwa heart with angina pectoris I25.119 ; B12 deficiency E53.8 and Rheumatoid arthritis with rheumatoid factor of right hand without organ or systems involvement M05.[address] 340 [id number], [place] [address] 03 Dec, [address] 340B 76020361YNSTILLWATER, [place] [address] Nov, [address] 340B 09951911SLSTILLWATER, [place] [address] 14 Nov, 2019 Other specified peripheral v ascular diseases I73.89 ; Hypertensive heart disease with heart failure I11.0 ; 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 ; Rheumatoid arthritis with rheumatoid factor of right hand without organ or systems involvement M05.741 ; 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 ; Anemia, unspecified type D64.9 and Moderate episode of recurrent major depressive disorder F33.1 [facility] [place]KO [place] [address] 340B [id number] [place] [address] Nov, [facility] [place] [place] [address] 340B [id number] [place] [address] Nov, [facility] K[place] [address] 340B [id number] [place] [address] Nov, [facility] [place] [address] 340B [id number] [place] [address] Nov, [facility] [address] [facility] [id number] [address] [address] Oct, Rhinitis, unspecified type J 31.0 and Concussion without loss of consciousness, subsequent encounter S06.0X0D [facility] K[place]E [address] 340B [id number] [place] [address] Oct, [facility] KI[place] [address] 340B [id number] [place] [address] Oct, [facility] K[place] [address] 340B [id number] [place] [address] Aug, [facility] KIKO PUENTE [address] 340B [id number] [place] [address] Aug, [facility] KIKO [place] [address] 340B [id number] [place] [address] Aug, [facility] KIKO [place] [address] 340B [id number] [place] [address] Jul, [facility] [address] [id number] [address] [address] Jul, Right hip pain M25.551 [facility] KI[place] PUENTE [address] 340B [id number], [place] [address] Jul, [facility] [place] [address] [id number] [place] [address] Jul, [facility] [address] [address] [id number] [place] [address] Jun, Rheumatoid arthritis M06.9 ; Ulcerative colitis K51.90 and Rectal prolapse K62.3 [facility] [address] 340B [id number] [place] [address] Jun, [facility] [address] [id number] [place] [address] Jun, [facility] [place] [address] [facility] [id number] [address] [address] Jun, COPD exacerbation J44.1 [facility] [place] [address] 340B [id number] [place] [address] Jun, [facility] [address] [id number] [place] [address] May, [facility] [address] 340B [id number], [place] [address] May, Diastolic dysfunction I51.9 [facility] KI[place] [address] 340B [id number] [address] May, Rectal prolapse K62.3 ; Rheu matoid arthritis M06.9 ; Diastolic dysfunction I51.9 and CKD (chronic kidney disease) stage 3, GFR 30-59 ml/min N18.3 [facility] [address] [id number] [place] [address] May, [facility] [address] 340B [id number] [place] [address] May, [facility] [address] [facility] [id number] [place] [address] May, Inflammation, skin L08.9 and Non-intractable vomiting with nausea, unspecified vomiting type R11.2 [facility] [place] [address] 340B [id number] [place] [address] May, [facility] [place] [address] 340B [id number] [place] [address] Apr, [facility] [place] [address] 340B [id number] [place] [address] Apr, Acute ethmoidal sinusitis, r ecurrence not specified J01.20 and Bronchitis J40 [facility] [place] [address] [facility] [id number] [place] [address] Apr, Sore throat J02.9 and Oral thrush B37.0 [facility] [place] [address] [facility] [id number] [address] [address] Apr, Screening for breast cancer Z12.39 [facility] [place] [address] 340B [id number], [place] [address] Apr, [facility] [place] [address] 340B [id number], [place] [address] Apr, Rheumatoid arthritis M06.9 [facility] KIKO [address] 340B [id number], [place] [address] March, [facility] [place] [address] 340[address] [id number], [place] [address] March, [facility] [place] [address] 340B [id number], [place] [address] March, [facility] KIKO PUENTE [address] 340B [id number], [place] [address] March, [facility] KIKO PUENTE [address] 340B [id number], [place] [address] March, Ulcerative colitis K51.90 an d 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 [facility] [place] [address] 340B [id number] [place] [address] Feb, [facility] KIKO PUENTE [address] 340B [id number], [place] [address] Feb, [facility] [address] [facility] [id number] [address] [place] [address] Jan, [facility] [place] [address] 340B [id number], [place] [address] Jan, Diastolic dysfunction I51.9 ; Rheumatoid arthritis M06.9 ; Ulcerative colitis K51.90 ; Essential hypertension I10 ; Moderate episode of recurrent major depressive disorder F33.1 and Iron deficiency anemia secondary to inadequate dietary iron intake D50.8 [facility] K[place] [address] 340B [id number], [place] [address] Jan, [facility] KI[place] [address] 340B [id number], [place] [address] Jan, Acute bronchitis, unspecifie d organism J20.9 and 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 [facility] [address] [facility] [id number] [address] [place] [address] Dec, [facility] KIKO [address] 340B [id number], [place] [address] Dec, [facility] [address] [facility] [id number] [place] [address] Nov, Viral upper respiratory illness J06.9 and Nausea alone R11.0 [facility] [address] [facility] [id number] [address] [place] [address] Oct, [facility] [address] [facility] [id number] [address] [place] [address] Oct, [facility] [address] [facility] [id number] [address] [place] [address] Oct, [facility] [address] [facility] [id number] [address] [place] [address] Aug, [facility] [address] [facility] [id number] [address] [place] [address] March, [facility] [address] [id number] [address] [place] [address], [place] [address] 14 Feb, 2015 [facility] [address] [id number] [address] [place] [address], [place] [address] 13 Feb, 2015 [facility] [address] [id number] [address] [place] [address], [place] [address] 10 Jan, 2015 [facility] [address] [id number] [address] [place] [address], [place] [address] Jan, [facility] [address] [id number] [address] [place] [address], [place] [address] Oct, [facility] [address] [id number] [address] [place] [address], [place] [address] Oct, [facility] [address] [id number] [address] [place] [address], [place] [address] Oct, [facility] [address] [id number] [address] [place] [address], [place] [address] Sep, [facility] [address] [id number] [address] [place] [address], [place] [address] Sep, [facility] [address] [id number] [address] [place] [address], [place] [address] Sep, [facility] [address] [id number] [address] [place] [address], [place] [address] Sep, [facility] [address] [id number] [address] [place] [address], [place] [address] Sep, [facility] [address] [id number] [address] [place] [address], [place] [address] Aug, [facility] [address] [id number] [address] [place] [address], [place] [address] Aug, [facility] [address] [id number] [address] [place] [address], [place] [address] Jul, [facility] [address] [id number] [address] [place] [address], [place] [address] Jul, [facility] [address] [id number] [facility] [place] [address] 10 Jul, 2013 [facility] [address] [id number] [facility] [place] [address] 10 Jul, 2013 [facility] [address] [id number] [address] [place] [address], [place] [address] 08 Jul, 2013 [facility] [address] [id number] [address] [place] [address], [place] [address] Jul, 2013 [facility] [address] [id number] [address] [place] [address], [place] [address] May, 2013 [facility] [address] [id number] [address] [place] [address], [place] [address] May, 2013 [facility] [address] [id number] [address] [place] [address], [place] [address] May, [facility] [address] [id number] [address] [place] [address], [place] [address] May, [facility] [address] [id number] [address] [place] [address], [place] [address] May, [facility] [address] [id number] [address] [place] [address], [place] [address] May, [facility] [address] [id number] [address] [place] [address], [place] [address] Apr, [facility] [address] [id number] [address] [place] [address], [place] [address] Apr, [facility] [address] [id number] [address] [place] [address], [place] [address] Apr, [facility] [address] [id number] [address] [place] [address], [place] [address] Apr, [facility] [address] [id number] [address] [place] [address], [place] [address] Apr, [facility] [address] [id number] [address] [place] [address], [place] [address] Apr, [facility] [address] [id number] [address] [place] [address], [place] [address] Apr, [facility] [address] [id number] [address] [place] [address], [place] [address] Apr, [facility] [address] [id number] [address] [place] [address], [place] [address] March, [facility] [address] [id number] [address] [place] [address], [place] [address] March, [facility] [address] [id number] [address] [place] [address], [place] [address] March, [facility] [address] [id number] [address] [place] [address], [place] [address] Feb, [facility] [address] [id number] [address] [place] [address], [place] [address] Feb, [facility] [address] [id number] [address] [place] [address], [place] [address] Feb, [facility] [address] [id number] [address] [place] [address], [place] [address] Feb, [facility] [address] [id number] [address] [place] [address], [place] [address] Feb, [facility] [address] [id number] [address] [place] [address], [place] [address] Feb, [facility] [address] [id number] [address] [place] [address], [place] [address] Feb, [facility] [address] [id number] [address] [place] [address], [place] [address] Feb, [facility] [address] [id number] [address] [place] [address], [place] [address] Jan, [facility] [address] [id number] [address] [place] [address], [place] [address] Jan, [facility] [address] [id number] [address] [place] [address], [place] [id number] Dec, [facility] [address] [id number] [address] [place] [address], [place] [address] Dec, [facility] [address] [id number] [address] [place] [address], [place] [address] Dec, [facility] [address] [id number] [address] [place] [address], [place] [address] Dec, [facility] [address] [id number] [address] [place] [address], [place] [address] Dec, [facility] [address] [id number] [address] [place] [address], [place] [address] Nov, [facility] [address] [id number] [address] [place] [address], [place] [address] Nov, [facility] [address] [id number] [address] [place] [address], [place] [address] Nov, [facility] [address] [id number] [address] [place] [address], [place] [address] Nov, [facility] [address] [id number] [address] [place] [address], [place] [address] Nov, [facility] [address] [id number] [address] [place] [address], [place] [address] Nov, [facility] [address] [id number] [address] [place] [address], [place] [address] Oct, [facility] [address] [id number] [address] [place] [address], [place] [address] Oct, [facility] [address] [id number] [address] [place] [address], [place] [address] Sep, [facility] [address] [id number] [address] [place] [address], [place] [address] Sep, [facility] [address] [id number] [address] [place] [address], [place] [address] Sep, [facility] [address] [id number] [address] [place] [address], [place] [address] Sep, [facility] [address] [id number] [address] [place] [address], [place] [address] Sep, [facility] [address] [id number] [address] [place] [address], [place] [address] Sep, [facility] [address] [id number] [address] [place] [address], [place] [address] Aug, [facility] [address] [id number] [address] [place] [address], [place] [address] Aug, [facility] [address] [id number] [address] [place] [address], [place] [address] May, [facility] [address] [id number] [address] [place] [address], [place] [address] May, [facility] [address] [id number] [address] [place] [address], [place] [address] May, [facility] [address] [id number] [address] [place] [address], [place] [address] May, [facility] [address] [id number] [address] [place] [address] Apr, [facility] [address] [id number] [address] [place] [address], [place] [address] Feb, [facility] [address] [id number] [address] [place] [address] Jan, [facility] [address] [id number] [address] [place] [address], [place] [address] Nov, [facility] [address] [id number] [address] [place] [address], [place] [address] Nov, [facility] [address] [id number] [address] [place] [address], [place] [address] Nov, [facility] [address] [id number] [address] [place] [address], [place] [address] 03 Nov, 2012 [facility] [address] [id number] [address] [place] [address], [place] [address] 31 Oct, 2012 [facility] [address] [id number] [address] [place] [address], [place] [address] 31 Oct, 2012 [facility] [address] [id number] [address] [place] [address], [place] [address] Oct, [facility] [address] [id number] [address] [place] [address], [place] [address] Oct, [facility] [address] [id number] [address] [place] [address], [place] [address] Oct, [facility] [address] [id number] [address] [place] [address], [place] [address] Oct, [facility] [address] [id number] [address] [place] [address], [place] [address] Oct, [facility] [address] [id number] [address] [place] [address], [place] [address] Oct, [facility] [address] [id number] [address] [place] [address], [place] [address] Sep, [facility] [address] [id number] [address] [place] [address], [place] [address] Sep, [facility] [address] [id number] [address] [place] [address], [place] [address] 16 Aug, 2012 [facility] [address] [id number] [address] [place] [address], [place] [address] 16 Aug, 2012 [facility] [address] [id number] [address] [place] [address], [place] [address] 24 Jul, 2012 [facility] [address] [id number] [address] [place] [address], [place] [address] 12 Jul, 2012 [facility] [address] [id number] [address] [place] [address], [place] [address] 30 Jun, 2012 [facility] [address] [id number] [address] [place] [address], [place] [address] Jun, [facility] [address] [id number] [address] [place] [address], [place] [address] Jun, [facility] [address] [id number] [address] [place] [address], [place] [address] Jun, [facility] [address] [id number] [address] [place] [address], [place] [address] May, [facility] [address] [id number] [address] [place] [address], [place] [address] May, [facility] [address] [id number] [address] [place] [address], [place] [address] May, [facility] [address] [id number] [address] [place] [address], [place] [address] May, [facility] [address] [id number] [address] [place] [address], [place] [address] May, [facility] [address] [id number] [address] [place] [address], [place] [address] May, [facility] [address] [id number] [address] [place] [address], [place] [address] Apr, [facility] [address] [id number] [address] [place] [address], [place] [address] March, [facility] [address] [id number] [address] [place] [address], [place] [address] March, [facility] [address] [id number] [address] [place] [address], [place] [address] Feb, [facility] [address] [id number] [address] [place] [address], [place] [address] Feb, [facility] [address] [id number] [address] [place] [address], [place] [address] Feb, [facility] [address] [id number] [address] [place] [address], [place] [address] Feb, [facility] [address] [id number] [address] [place] [address] Jan, [facility] [address] [id number] [address] [place] [address] Dec, [facility] [address] [id number] [address] [place] [address] Nov, [facility] [address] [id number] [address] [place] [address] Nov, [facility] [address] [id number] [address] [place] [address] Nov, [facility] [address] [id number] [address] [place] [address] Oct, [facility] [address] [id number] [address] [place] [address] Oct, [facility] [address] [id number] [address] [place] [id number] Sep, [facility] [address] [id number] [address] [place] [address] Sep, [facility] [address] [id number] [address] [place] [address] Oct, [facility] [address] [id number] [address] [place] [address] Sep, [facility] [address] [id number] [address] [place] [address] Aug, [facility] [address] [id number] [address] [place] [phone] Aug, IMMUNIZATIONS No Known Immunizations SOCIAL HISTORY Never Assessed REASON FOR VISIT PLAN OF CARE VITAL SIGNS MEDICATIONS No Known Medications RESULTS No Results PROCEDURES No Known [...]
--- OUTSIDE RECORDS SUMMARY | 2020-05-29 11:12 | XMS REPORT ---
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 Name Role Phone Migration, Doctor Unavailable Unavailable PROBLEMS Type Condition ICD9-CM Code XJO01-LB Code Onset Dates Condition S tatus SNOMED Code Problem Stage 1 skin ulcer of sacral region L98.429 Active Problem Rotator cuff tendonitis M75.80 March, Act alyssa 691764047 Problem Closed fracture of left distal tibia S82.302A Jan, Active 51147297 Problem Hypokalemia E87.6 March, Active 55357 004 Problem Generalized anxiety disorder F41.1 Jun, 201 1 Active 71921453 Problem Diverticulitis of both small and large intestine without perforation or abscess without bleeding K57.52 Feb, Active 307 393062 Problem 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 May, Active 267705314 Problem Essential hypertension I10 Active 66975089 Problem Anemia D64.9 Sep, Active 1823804 00 Problem 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, limited to b reakdown of skin L97.511 Active Problem Generalized abdominal pain R10.84 Sep, Active 213750974 Problem Chronic pain G89.29 Aug, Active 8242 3001 Problem SOB (shortness of breath) R06.02 Nov, A ctive 677356189 Problem CKD (chronic kidney disease) stage 3, GFR 30-59 ml/min N18.3 Apr, Active 012181201 Problem Diastolic dysfunction I51.9 Jan, Activ e 0956463 Problem Ulcerative colitis K51.90 Jul, Active 48779702 Problem Rheumatoid arthritis M06.9 Sep, Active 78021128 Problem PVC (premature ventricular contraction) I49.3 Nov, Active 81318538 Problem Moderate episode of recurrent major depressive disorder F33.1 Active 268219936 Problem Iron deficiency anemia secondary to inadequate d ietary iron intake D50.8 Active 496731635 Problem 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 Active [id number] ALLERGIES No Information ENCOUNTERS Encounter Location Date Diagnosis [address] [id number], [place] [address] March, [address] [id number], [place] [address] 30 Feb, [address] [id number], [place] [address] Feb, [address] [id number], [place] [address] Jan, Nausea alone R11.[address] [id number], [place] [address] 17 Jan, 2020 [facility] [address] [facility] [id number] [address] [address] Jan, Arthralgia of left temporoma ndibular joint M26.[address] [id number], [place] [address] Jan, [address] [id number], [place] [address] 12 Jan, 2020 Ulcerative colitis K51.90 ; CKD (chronic kidney disease) stage 3, GFR 30-59 ml/min N18.3 ; Essential hypertension I10 ; Rheumatoid arthritis with rheumatoid factor of right hand without organ or systems involvement M05.741 ; Intrinsic eczema L20.84 and Rectal prolapse K62.3 [facility] [address] [id number] [address] [address] 12 Jan, 2020 [facility] [address] [facility] [id number] [address] [place] [address] Jan, [facility] [address] [facility] [id number] [address] [place] [address] Jan, [facility] [address] [facility] [id number] [address] [place] [address] Jan, [facility] [address] [facility] [id number] [address] [place] [address] 05 Jan, [address] [id number], [place] [address] Jan, [address] [id number], [place] [address] Jan, [address] [id number], [place] [address] Jan, [facility] [address] [facility] [id number] [place] [address] Jan, [facility] [address] [facility] [id number] [address] [place] [address] Dec, Skin infection L08.9 and His tory of pneumonia Z87.[address] 340[address] [id number], [place] [address] Dec, [facility] [address] [facility] [id number] [address] [place] [address] Dec, [facility] [address] [facility] [id number] [address] [place] [address] Dec, [facility] [address] [facility] [id number] [address] [place] [address] Dec, [facility] [address] [facility] [id number] [place] [address] 19 Dec, 2019 Allergic reaction, initial e ncounter T78.40XA and Swollen upper lip R22.[address] 340 [id number], [place] [address] 19 Dec, [address] 340 [id number], [place] [address] 18 Dec, 2019 [facility] [address] [facility] [id number] [place] [address] 13 Dec, 2019 Cough R[address] [id number], [place] [address] 11 Dec, 2019 Iron deficiency anemia secon michell to inadequate dietary iron intake D50.[address] [id number], [place] [address] 11 Dec, 2019 Encounter for Medicare annua l wellness exam Z00.00 ; 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, 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 ; Chronic obstructive pulmonary disease, unspecified COPD type J44.9 ; Ulcerative colitis K51.90 ; CKD (chronic kidney disease) stage 3, GFR 30-59 ml/min N18.3 ; 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 ; B12 deficiency E53.8 and Rheumatoid arthritis with rheumatoid factor of right hand without organ or systems involvement M05.[address] [id number], [place] [address] 03 Dec, [address] [id number], [place] [address] Nov, [address] 340 [id number], [place] [address] 14 Nov, 2019 Other specified peripheral v ascular diseases I73.89 ; Hypertensive heart disease with heart failure I11.0 ; 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 ; Rheumatoid arthritis with rheumatoid factor of right hand without organ or systems involvement M05.741 ; 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 ; Anemia, unspecified type D64.9 and Moderate episode of recurrent major depressive disorder F33.1 [facility] [place] [address] [id number] [place] [address] Nov, [facility] [place] [place] [address] [id number] [place] [address] Nov, [facility] [place] [address] [id number] [place] [address] Nov, [facility] [place] [address] [id number] [place] [address] Nov, [facility] [address] [id number] [address] [place] [address] Oct, Rhinitis, unspecified type J 31.0 and Concussion without loss of consciousness, subsequent encounter S06.0X0D [facility] [address] 340[address] [id number] [place] [address] Oct, [facility] [place] [address] [id number] [place] [address] Oct, [facility] [place] [address] [id number] [place] [address] Aug, [facility] [place] [address] [id number] [place] [address] Aug, [facility] [place] [address] 340[address] [id number] [place] [address] Aug, [facility] [place] [address] [id number] [place] [address] Jul, [facility] [address] [id number] [address] [address] Jul, Right hip pain M25.551 [facility] [place] [address] [id number] [place] [address] Jul, [facility] [address] [id number], [place] [address] Jul, [facility] [place] [address] 340[address] [id number] [place] [address] Jun, Rheumatoid arthritis M06.9 ; Ulcerative colitis K51.90 and Rectal prolapse K62.3 [facility] [place] [address] [id number] [place] [address] Jun, [facility] [place] [address] 340[address] [id number] [place] [address] Jun, [facility] [address] [facility] [id number] [address] [address] Jun, COPD exacerbation J44.1 [facility] [place] [address] 340[address] [id number] [place] [address] Jun, [facility] [place] [address] 340[address] [id number] [place] [address] May, [facility] [place] [address] 340[place] [id number], [place] [address] May, Diastolic dysfunction I51.9 [facility] [place] [address] 340[address] [id number] [place] [address] May, Rectal prolapse K62.3 ; Rheu matoid arthritis M06.9 ; Diastolic dysfunction I51.9 and CKD (chronic kidney disease) stage 3, GFR 30-59 ml/min N18.3 [facility] [place] [address] 340[address] [id number] [place] [address] May, [facility] [place] [address] [id number] [place] [address] May, [facility] [place] [address] [facility] [id number] [place] [address] May, Inflammation, skin L08.9 and Non-intractable vomiting with nausea, unspecified vomiting type R11.2 [facility] [place] [address] 340[address] [id number] [place] [address] May, [facility] [place] [address] 340B [id number] [place] [address] Apr, [facility] [place] [address] 340[address] [id number] [place] [address] Apr, Acute ethmoidal sinusitis, r ecurrence not specified J01.20 and Bronchitis J40 [facility] [place] [address] [id number] [place] [address] Apr, Sore throat J02.9 and Oral thrush B37.0 [facility] [address] [facility] [id number] [place] [address] Apr, Screening for breast cancer Z12.39 [facility] [place] [address] 340[address] [id number], [place] [address] Apr, [facility] [place] [address] 340[address] [id number], [place] [address] Apr, Rheumatoid arthritis M06.9 [facility] [place] [address] 340[address] [id number], [place] [address] March, [facility] [place] [address] 340[address] [id number], [place] [address] March, [facility] [place] [address] 340[address] [id number], [place] [address] March, [facility] [place] [address] 340[address] [id number], [place] [address] March, [facility] [place] [address] 340[address] [id number], [place] [address] March, Ulcerative colitis K51.90 an d 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 [facility] [place] [address] 340[address] [id number], [place] [address] Feb, [facility] [place] [address] 340[address] [id number], [place] [address] Feb, [facility] [address] [facility] [id number] [place] [address] Jan, [facility] [place] [address] 340[place] [id number], [place] [address] Jan, Diastolic dysfunction I51.9 ; Rheumatoid arthritis M06.9 ; Ulcerative colitis K51.90 ; Essential hypertension I10 ; Moderate episode of recurrent major depressive disorder F33.1 and Iron deficiency anemia secondary to inadequate dietary iron intake D50.8 [facility] [place] [address] [id number], [place] [address] Jan, [facility] [place] [address] 340[address] [id number], [place] [address] Jan, Acute bronchitis, unspecifie d organism J20.9 and 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 [facility] [address] [facility] [id number] [address] [place] [address] Dec, [facility] [place] [address] [id number], [place] [address] Dec, [facility] [id number] [place] [address] Nov, Viral upper respiratory illness J06.9 and Nausea alone R11.0 [facility] [address] [place] [id number] [address] [place] [address] Oct, [facility] [address] [facility] [id number] [address] [place] [address] Oct, [facility] [address] [facility] [id number] [address] [place] [address] Oct, [facility] [address] [facility] [id number] [address] [place] [address] Aug, [facility] [address] [facility] [id number] [address] [place] [address] March, [facility] [address] [facility] [id number] [address] [place] [address] 14 Feb, 2015 [facility] [address] [facility] [id number] [address] [place] [address] Feb, [facility] [address] [id number] [address] [place] [address], [place] [address] Jan, [facility] [address] [id number] [address] [place] [address], [place] [address] Jan, [facility] [address] [id number] [address] [place] [address], [place] [address] Oct, [facility] [address] [id number] [address] [place] [address], [place] [address] Oct, [facility] [address] [id number] [address] [place] [address], [place] [address] Oct, [facility] [address] [id number] [address] [place] [address], [place] [address] Sep, [facility] [address] [id number] [address] [place] [address], [place] [address] Sep, [facility] [address] [id number] [address] [place] [address], [place] [address] Sep, [facility] [address] [id number] [address] [place] [address], [place] [address] Sep, [facility] [address] [id number] [address] [place] [address], [place] [address] Sep, [facility] [address] [id number] [address] [place] [address], [place] [address] Aug, [facility] [address] [id number] [address] [place] [address] Aug, [facility] [address] [id number] [address] [place] [address], [place] [address] Jul, [facility] [address] [id number] [address] [place] [address], [place] [address] Jul, [facility] [address] [id number] [address] [place] [address], [place] [address] Jul, [facility] [address] [id number] [address] [place] [address], [place] [address] 10 Jul, 2013 [facility] [address] [id number] [address] [place] [address], [place] [address] 08 Jul, 2013 [facility] [address] [id number] [address] [place] [address], [place] [address] Jul, 2013 [facility] [address] [id number] [address] [place] [address], [place] [address] May, 2013 [facility] [address] [id number] [address] [place] [address], [place] [address] May, 2013 [facility] [address] [id number] [address] [place] [address], [place] [address] May, [facility] [address] [id number] [address] [place] [address], [place] [address] May, [facility] [address] [id number] [address] [place] [address], [place] [address] May, [facility] [address] [id number] [address] [place] [address], [place] [address] May, [facility] [address] [id number] [address] [place] [address], [place] [address] Apr, [facility] [address] [id number] [address] [place] [address], [place] [address] Apr, [facility] [address] [id number] [address] [place] [address], [place] [address] Apr, [facility] [address] [id number] [address] [place] [address], [place] [address] Apr, [facility] [address] [id number] [address] [place] [address], [place] [address] Apr, [facility] [address] [id number] [address] [place] [address], [place] [address] Apr, [facility] [address] [id number] [address] [place] [address], [place] [address] Apr, [facility] [address] [id number] [address] [place] [address], [place] [address] Apr, [facility] [address] [id number] [address] [place] [address], [place] [address] March, [facility] [address] [id number] [address] [place] [address], [place] [address] March, [facility] [address] [id number] [address] [place] [address], [place] [address] March, [facility] [address] [id number] [address] [place] [address], [place] [address] Feb, [facility] [address] [id number] [address] [place] [address], [place] [address] Feb, [facility] [address] [id number] [address] [place] [address], [place] [address] Feb, [facility] [address] [id number] [address] [place] [address], [place] [address] Feb, [facility] [address] [id number] [address] [place] [address], [place] [address] Feb, [facility] [address] [id number] [address] [place] [address], [place] [address] Feb, [facility] [address] [id number] [address] [place] [address], [place] [address] Feb, [facility] [address] [id number] [address] [place] [address] Feb, [facility] [address] [id number] [address] [place] [address], [place] [address] Jan, [facility] [address] [id number] [address] [place] [address], [place] [address] Jan, [facility] [address] [id number] [address] [place] [id number] Dec, [facility] [address] [id number] [address] [place] [address] Dec, [facility] [address] [id number] [address] [place] [address], [place] [address] Dec, [facility] [address] [id number] [address] [place] [address], [place] [address] Dec, [facility] [address] [id number] [address] [place] [address], [place] [address] Dec, [facility] [address] [id number] [address] [place] [address], [place] [address] Nov, [facility] [address] [id number] [address] [place] [address], [place] [address] Nov, [facility] [address] [id number] [address] [place] [address], [place] [address] Nov, [facility] [address] [id number] [address] [place] [address], [place] [address] Nov, [facility] [address] [id number] [address] [place] [address], [place] [address] Nov, [facility] [address] [id number] [address] [place] [address], [place] [address] Nov, [facility] [address] [id number] [address] [place] [address], [place] [address] Oct, [facility] [address] [id number] [address] [place] [address], [place] [address] Oct, [facility] [address] [id number] [address] [place] [address], [place] [address] Sep, [facility] [address] [id number] [address] [place] [address], [place] [address] Sep, [facility] [address] [id number] [address] [place] [address], [place] [address] Sep, [facility] [address] [id number] [address] [place] [address], [place] [address] Sep, [facility] [address] [id number] [address] [place] [address], [place] [id number] Sep, [facility] [address] [id number] [address] [place] [address], [place] [id number] Sep, [facility] [address] [id number] [address] [place] [address], [place] [id number] Aug, [facility] [address] [id number] [address] [place] [address], [place] [id number] Aug, [facility] [address] [id number] [address] [place] [address], [place] [id number] May, [facility] [address] [id number] [address] [place] [address], [place] [id number] May, [facility] [address] [id number] [address] [place] [address], [place] [id number] May, [facility] [address] [id number] [address] [place] [address], [place] [id number] May, [facility] [address] [id number] [address] [place] [address], [place] [id number] Apr, [facility] [address] [id number] [address] [place] [address], [place] [id number] Feb, [facility] [address] [id number] [address] [place] [address], [place] [id number] Jan, [facility] [address] [id number] [address] [place] [address], [place] [id number] Nov, [facility] [address] [id number] [address] [place] [address], [place] [id number] Nov, [facility] [address] [id number] [address] [place] [address], [place] [id number] Nov, [facility] [address] [id number] [address] [place] [address], [place] [id number] Nov, [facility] [address] [id number] [address] [place] [address], [place] [id number] 31 Oct, 2012 [facility] [address] [id number] [address] [place] [address], [place] [id number] 31 Oct, 2012 [facility] [address] [id number] [address] [place] [address], [place] [id number] Oct, [facility] [address] [id number] [address] [place] [address], [place] [id number] Oct, [facility] [address] [id number] [address] [place] [address], [place] [id number] Oct, [facility] [address] [id number] [address] [place] [address], [place] [id number] Oct, [facility] [address] [id number] [address] [place] [address], [place] [id number] 13 Oct, 2012 [facility] [address] [id number] 65 [place] [address], [place] [id number] Oct, [facility] [address] [id number] [address] [place] [address], [place] [id number] Sep, [facility] [address] [id number] [address] [place] [address], [place] [id number] Sep, [facility] [address] [id number] [address] [place] [address], [place] [id number] 16 Aug, 2012 [facility] [address] [id number] [address] [place] [address], [place] [id number] 16 Aug, 2012 [facility] [address] [id number] [address] [place] [address], [place] [id number] 24 Jul, 2012 [facility] [address] [id number] [address] [place] [address], [place] [address] Jul, [facility] [address] [id number] [address] [place] [address], [place] [id number] Jun, [facility] [address] [id number] [address] [place] [address], [place] [address] Jun, [facility] [address] [id number] [address] [place] [address], [place] [address] Jun, [facility] [address] [id number] [address] [place] [address], [place] [address] Jun, [facility] [address] [id number] [address] [place] [address], [place] [address] May, [facility] [address] [id number] [address] [place] [address], [place] [id number] May, [facility] [address] [id number] [address] [place] [address], [place] [address] May, [facility] [address] [id number] [address] [place] [address], [place] [address] May, [facility] [address] [id number] [address] [place] [address], [place] [address] May, [facility] [address] [id number] [address] [place] [address], [place] [id number] May, [facility] [address] [id number] [address] [place] [address], [place] [address] Apr, [facility] [address] [id number] [address] [place] [address], [place] [address] March, [facility] [address] [id number] [address] [place] [address], [place] [address] March, [facility] [address] [id number] [address] [place] [address], [place] [id number] Feb, [facility] [address] [id number] [address] [place] [address], [place] [id number] Feb, [facility] [address] [id number] [address] [place] [address], [place] [id number] Feb, [facility] [address] [id number] [address] [place] [address], [place] [id number] Feb, [facility] [address] [id number] [address] [place] [address], [place] [address] Jan, [facility] [address] [id number] [address] [id number] Dec, [facility] [address] [id number] [address] [id number] Nov, [facility] [address] [id number] [address] [id number] Nov, [facility] [address] [id number] [address] [id number] Nov, [facility] [address] [id number] [address] [id number] Oct, [facility] [address] [id number] [address] [id number] Oct, [facility] [address] [id number] [address] [id number] Sep, [facility] [address] [id number] [address] [phone] Sep, [facility] [address] [id number] [address] [place] [id number] Oct, [facility] [address] [id number] [address] [id number] Sep, [facility] [address] [id number] [address] [place] [phone] Aug, [facility] [address] [id number] [address] [place] [id number] Aug, IMMUNIZATIONS No Known Immunizations SOCIAL HISTORY Never Assessed REASON FOR VISIT PLAN OF CARE VITAL SIGNS Temperature 97.8 degrees Fahrenheit 2013-04-10 Heart Rate 80 bpm 2013-04-10 Respiratory Rate 22 2013-04-10 Blood pressure systolic 134 mmHg 2013-04-10 Blood pressure diastolic 90 mmHg 2013-04-10 MEDICATIONS Unknown Medications RESULTS No Results PROCEDURES [...]
--- OUTSIDE RECORDS SUMMARY | 2020-05-29 11:12 | XMS REPORT ---
Author Author Nanette Atkins Doctor Organization [facility] Address Unknown Phone Unavailable Care Team Providers Care Animal Shelter Manager Name Role Phone Migration, Doctor Unavailable Unavailable PROBLEMS Type Condition ICD9-CM Code [id number] Code Onset Dates Condition S tatus SNOMED Code Problem Stage 1 skin ulcer of sacral region L98.429 Active Problem Rotator cuff tendonitis M75.80 March, Act alyssa 280755086 Problem Closed fracture of left distal tibia S82.302A Jan, Active 46891784 Problem Hypokalemia E87.6 March, Active 74647 004 Problem Generalized anxiety disorder F41.1 Jun, 201 1 Active 17887412 Problem Diverticulitis of both small and large intestine without perforation or abscess without bleeding K57.52 Feb, Active 307 569376 Problem 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 May, Active 336565566 Problem Essential hypertension I10 Active 08894892 Problem Anemia D64.9 Sep, Active 3646534 00 Problem 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, limited to b reakdown of skin L97.511 Active Problem Generalized abdominal pain R10.84 Sep, Active 698183517 Problem Chronic pain G89.29 Aug, Active 8242 3001 Problem SOB (shortness of breath) R06.02 Nov, A ctive 630447980 Problem CKD (chronic kidney disease) stage 3, GFR 30-59 ml/min N18.3 Apr, Active 791655912 Problem Diastolic dysfunction I51.9 Jan, Activ e 8879285 Problem Ulcerative colitis K51.90 Jul, Active 68486358 Problem Rheumatoid arthritis M06.9 Sep, Active 15701587 Problem PVC (premature ventricular contraction) I49.3 Nov, Active 05557069 Problem Moderate episode of recurrent major depressive disorder F33.1 Active 241730907 Problem Iron deficiency anemia secondary to inadequate d ietary iron intake D50.8 Active 178395153 Problem 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 Active [id number] ALLERGIES No Information ENCOUNTERS Encounter Location Date Diagnosis [address] 340[address] [id number] [address] 14 Feb, [address] 340[address] [id number], [place] [address] 27 Jan, 2020 Nausea alone R11.[address] 340[address] [id number] [address] 17 Jan, 2020 [facility] [address] [facility] [id number] [address] [place] [address] Jan, Arthralgia of left temporoma ndibular joint M26.[address] 340[address] [id number], [place] [address] Jan, [address] 340[address] [id number], [place] [address] Jan, Ulcerative colitis K51.90 ; CKD (chronic kidney disease) stage 3, GFR 30-59 ml/min N18.3 ; Essential hypertension I10 ; Rheumatoid arthritis with rheumatoid factor of right hand without organ or systems involvement M05.741 ; Intrinsic eczema L20.84 and Rectal prolapse K62.3 [facility] [address] [facility] [id number] [place] [address] Jan, [facility] [address] [facility] [id number] [address] [place] [address] 10 Jan, 2020 [facility] [address] [facility] [id number] [address] [place] [address] 09 Jan, 2020 [facility] [address] [facility] [id number] [address] [place] [address] Jan, [facility] [address] [facility] [id number] [address] [place] [address] 05 Jan, [address] 340B [id number], [place] [address] Jan, [address] 340[address] [id number], [place] [address] Jan, [address] 340[address] [id number], [place] [address] Jan, [facility] [place] [address] [facility] [id number] [address] Jan, [facility] [address] [facility] [id number] [address] [place] [address] Dec, Skin infection L08.9 and His tory of pneumonia Z87.[address] 340B [id number], [place] [address] Dec, [facility] [address] [facility] [id number] [address] [place] [address] Dec, [facility] [address] [facility] [id number] [address] [place] [address] Dec, [facility] [address] [facility] [id number] [address] [place] [address] Dec, [facility] [address] [facility] [id number] [address] [place] [address] Dec, Allergic reaction, initial e ncounter T78.40XA and Swollen upper lip R22.[address] 340B [id number], [place] [address] Dec, [address] 340B [id number] [place] [address] 18 Dec, 2019 [facility] [address] [facility] [id number] [address] [place] [address] 13 Dec, 2019 Cough R05 [address] 340B [id number] [place] [address] 11 Dec, 2019 Iron deficiency anemia secon michell to inadequate dietary iron intake D50.[address] 340B [id number], [place] [address] 11 Dec, 2019 Encounter for Medicare annua l wellness exam Z00.00 ; 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, 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 ; Chronic obstructive pulmonary disease, unspecified COPD type J44.9 ; Ulcerative colitis K51.90 ; CKD (chronic kidney disease) stage 3, GFR 30-59 ml/min N18.3 ; 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 ; B12 deficiency E53.8 and Rheumatoid arthritis with rheumatoid factor of right hand without organ or systems involvement M05.[address] 340 [id number], [place] [address] 03 Dec, [address] 340B [id number], [place] [address] Nov, [address] 340[address] [id number], [place] [address] 14 Nov, 2019 Other specified peripheral v ascular diseases I73.89 ; Hypertensive heart disease with heart failure I11.0 ; 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 ; Rheumatoid arthritis with rheumatoid factor of right hand without organ or systems involvement M05.741 ; 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 ; Anemia, unspecified type D64.9 and Moderate episode of recurrent major depressive disorder F33.[address] 340B [id number], [place] [address] Nov, [address] 340B [id number] [place] [address] Nov, [facility] [place] [address] 340B [id number] [place] [address] Nov, [facility] [place] [address] [id number] [place] [address] Nov, [facility] [address] [facility] [id number] [address] [place] [address] Oct, Rhinitis, unspecified type J 31.0 and Concussion without loss of consciousness, subsequent encounter S06.0X0D [facility] [place] [address] [id number] [place] [address] Oct, [facility] [place] [address] [id number] [place] [address] Oct, [facility] [address] 340B [id number] [place] [address] Aug, [facility] [place] [address] [id number] [place] [address] Aug, [facility] [place] [address] [id number] [place] [address] Aug, [facility] [place] [address] [id number] [place] [address] Jul, [facility] [address] [facility] [id number] [address] [place] [address] Jul, Right hip pain M25.551 [facility] [place] [address] [id number] [place] [address] Jul, [facility] [place] [address] [id number], [place] [address] Jul, [facility] [place] [address] [id number] [place] [address] Jun, Rheumatoid arthritis M06.9 ; Ulcerative colitis K51.90 and Rectal prolapse K62.3 [facility] [place] [address] 340[address] [id number] [place] [address] Jun, [facility] [place] [address] 340[address] [id number] [place] [address] Jun, [facility] [address] [id number] [address] [place] [address] Jun, COPD exacerbation J44.1 [facility] [place] [address] 340B [id number] [place] [address] Jun, [facility] [place] [address] 340B [id number] [place] [address] May, [facility] [place] [address] 340B [id number] [place] [address] May, Diastolic dysfunction I51.9 [facility] [place] [address] 340B [id number], [place] [address] May, Rectal prolapse K62.3 ; Rheu matoid arthritis M06.9 ; Diastolic dysfunction I51.9 and CKD (chronic kidney disease) stage 3, GFR 30-59 ml/min N18.3 [facility] [place] [address] 340B [id number] [place] [address] May, [facility] [place] [address] 340B [id number] [place] [address] May, [facility] [place] [address] [facility] [id number] [place] [address] May, Inflammation, skin L08.9 and Non-intractable vomiting with nausea, unspecified vomiting type R11.2 [facility] [place] [address] 340B [id number] [place] [address] May, [facility] [place] [address] 340B [id number] [place] [address] Apr, [facility] [place] [address] 340B [id number] [place] [address] Apr, Acute ethmoidal sinusitis, r ecurrence not specified J01.20 and Bronchitis J40 [facility] [place] [address] [facility] [id number] [place] [address] Apr, Sore throat J02.9 and Oral thrush B37.0 [facility] [address] [facility] [id number] [place] [address] Apr, Screening for breast cancer Z12.39 [facility] K[place] [address] 340B [id number] [place] [address] Apr, [facility] [place] [address] 340B [id number] [place] [address] Apr, Rheumatoid arthritis M06.9 [facility] [place] [address] 340B [id number] [place] [address] March, [facility] [place] [address] 340[address] [id number], [place] [address] March, [facility] [place] [address] 340B [id number], [place] [address] March, [facility] [place] [address] 340B [id number], [place] [address] March, [facility] [place] [address] 340B [id number], [place] [address] March, Ulcerative colitis K51.90 an d 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 [facility] [place] [address] 340B [id number], [place] [address] Feb, [facility] [place] [address] 340B [id number] [place] [address] Feb, [facility] [address] [facility] [id number] [place] [address] Jan, [facility] [place] [address] 340B [id number], [place] [address] Jan, Diastolic dysfunction I51.9 ; Rheumatoid arthritis M06.9 ; Ulcerative colitis K51.90 ; Essential hypertension I10 ; Moderate episode of recurrent major depressive disorder F33.1 and Iron deficiency anemia secondary to inadequate dietary iron intake D50.8 [facility] [place] [facility] [address] [facility] 340B [id number] [place] [address] Jan, [facility] [place] [address] 340B [id number], [place] [address] Jan, Acute bronchitis, unspecifie d organism J20.9 and 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 [facility] [address] [facility] [id number] [address] [place] [address] Dec, [facility] K[facility] [address] [facility] 340B [id number][place] [address] Dec, [facility] [address] [facility] [id number] [place] [address] Nov, Viral upper respiratory illness J06.9 and Nausea alone R11.0 [facility] [address] [facility] [id number] [address] [place] [address] Oct, [facility] [address] [facility] [id number] [address] [place] [address] Oct, [facility] [address] [facility] [id number] [address] [place] [address] Oct, [facility] [address] [facility] [id number] [address] [place] [address] Aug, [facility] [address] [facility] [id number] [address] [place] [address] March, [facility] [address] [facility] [id number] [address] [place] [address] Feb, [facility] [address] [facility] [id number] [address] [place] [address] Feb, [facility] [address] [facility] [id number] [address] [place] [address] 10 Jan, 2015 [facility] [address] [facility] [id number] [address] [place] [address] Jan, [facility] [address] [id number] [address] [place] [address], [place] [address] Oct, [facility] [address] [id number] [address] [place] [address], [place] [address] Oct, [facility] [address] [id number] [address] [place] [address], [place] [address] Oct, [facility] [address] [id number] [address] [place] [address], [place] [address] Sep, [facility] [address] [id number] [address] [place] [address], [place] [address] Sep, [facility] [address] [id number] [address] [place] [address], [place] [address] Sep, [facility] [address] [id number] [address] [place] [address], [place] [address] Sep, [facility] [address] [id number] [address] [place] [address], [place] [address] Sep, [facility] [address] [id number] [address] [place] [address], [place] [address] Aug, [facility] [address] [id number] [address] [place] [address], [place] [address] Aug, [facility] [address] [id number] [address] [place] [address], [place] [address] Jul, [facility] [address] [id number] [address] [place] [address], [place] [address] Jul, [facility] [address] [id number] [address] [place] [address], [place] [address] Jul, [facility] [address] [id number] [address] [place] [address], [place] [address] Jul, [facility] [address] [id number] [address] [place] [address], [place] [address] 08 Jul, 2014 [facility] [address] [id number] [address] [place] [address], [place] [address] Jul, [facility] [address] [id number] [address] [place] [address], [place] [address] May, [facility] [address] [id number] [address] [place] [address], [place] [address] May, [facility] [address] [id number] [address] [place] [address], [place] [address] May, [facility] [address] [id number] [address] [place] [address], [place] [address] May, [facility] [address] [id number] [address] [place] [address], [place] [address] May, [facility] [address] [id number] [address] [place] [address], [place] [address] May, [facility] [address] [id number] [address] [place] [address], [place] [address] Apr, [facility] [address] [id number] [address] [place] [address], [place] [address] Apr, [facility] [address] [id number] [address] [place] [address], [place] [address] Apr, [facility] [address] [id number] [address] [place] [address], [place] [address] Apr, [facility] [address] [id number] [address] [place] [address], [place] [address] Apr, [facility] [address] [id number] [address] [place] [address], [place] [address] Apr, [facility] [address] [id number] [address] [place] [address], [place] [address] Apr, [facility] [address] [id number] [address] [place] [address], [place] [address] Apr, [facility] [address] [id number] [address] [place] [address], [place] [address] March, [facility] [address] [id number] [address] [place] [address], [place] [address] March, [facility] [address] [id number] [address] [place] [address], [place] [address] March, [facility] [address] [id number] [address] [place] [address], [place] [address] Feb, [facility] [address] [id number] [address] [place] [address], [place] [address] Feb, [facility] [address] [id number] [address] [place] [address], [place] [address] Feb, [facility] [address] [id number] [address] [place] [address], [place] [address] Feb, [facility] [address] [id number] [address] [place] [address], [place] [address] Feb, [facility] [address] [id number] [address] [place] [address], [place] [address] Feb, [facility] [address] [id number] [address] [place] [address], [place] [address] Feb, [facility] [address] [id number] [address] [place] [address], [place] [address] Feb, [facility] [address] [id number] [address] [place] [address], [place] [address] Jan, [facility] [address] [id number] [address] [place] [address], [place] [address] Jan, [facility] [address] [id number] [address] [place] [address], [place] [id number] Dec, [facility] [address] [id number] [address] [place] [address], [place] [address] Dec, [facility] [address] [id number] [address] [place] [address], [place] [address] Dec, [facility] [address] [id number] [address] [place] [address], [place] [address] Dec, [facility] [address] [id number] [address] [place] [address], [place] [address] Dec, [facility] [address] [id number] [address] [place] [address], [place] [address] Nov, [facility] [address] [id number] [address] [place] [address], [place] [address] Nov, [facility] [address] [id number] [address] [place] [address], [place] [address] Nov, [facility] [address] [id number] [address] [place] [address], [place] [address] Nov, [facility] [address] [id number] [address] [place] [address], [place] [address] Nov, [facility] [address] [id number] [address] [place] [address], [place] [address] Nov, [facility] [address] [id number] [address] [place] [address], [place] [address] Oct, [facility] [address] [id number] [address] [place] [address], [place] [address] Oct, [facility] [address] [id number] [address] [place] [address], [place] [address] Sep, [facility] [address] [id number] [address] [place] [address], [place] [address] Sep, [facility] [address] [id number] [address] [place] [address], [place] [address] Sep, [facility] [address] [id number] [address] [place] [address], [place] [address] Sep, [facility] [address] [id number] [address] [place] [address], [place] [address] Sep, [facility] [address] [id number] [address] [place] [address], [place] [address] Sep, [facility] [address] [id number] [address] [place] [address], [place] [address] 14 Aug, 2013 [facility] [address] [id number] [address] [place] [address], [place] [id number] 14 Aug, 2013 [facility] [address] [id number] [address] [place] [address], [place] [address] May, [facility] [address] [id number] [address] [place] [address], [place] [address] May, [facility] [address] [id number] [address] [place] [address], [place] [address] May, [facility] [address] [id number] [address] [place] [address], [place] [address] May, [facility] [address] [id number] [address] [place] [address], [place] [address] Apr, [facility] [address] [id number] [address] [place] [address], [place] [address] Feb, [facility] [address] [id number] [address] [place] [address], [place] [address] Jan, [facility] [address] [id number] [address] [place] [address], [place] [address] Nov, [facility] [address] [id number] [address] [place] [address], [place] [address] Nov, [facility] [address] [id number] [address] [place] [address], [place] [address] Nov, [facility] [address] [id number] [address] [place] [address], [place] [address] Nov, [facility] [address] [id number] [address] [place] [address], [place] [address] Oct, [facility] [address] [id number] [address] [place] [address], [place] [address] Oct, [facility] [address] [id number] [address] [place] [address], [place] [address] Oct, [facility] [address] [id number] [address] [place] [address], [place] [address] Oct, [facility] [address] [id number] [address] [place] [address], [place] [address] Oct, [facility] [address] [address] [id number] [address] [place] [address], [place] [address] Oct, [facility] [address] [id number] [address] [place] [address], [place] [address] Oct, [facility] [address] [id number] [address] [place] [address], [place] [address] Oct, [facility] [address] [id number] [address] [place] [address], [place] [address] Sep, [facility] [address] [id number] [address] [place] [address], [place] [address] Sep, [facility] [address] [id number] [address] [place] [address], [place] [address] 16 Aug, 2012 [facility] [address] [id number] [address] [place] [address], [place] [address] Aug, [facility] [address] [id number] [address] [place] [address], [place] [address] 24 Jul, 2012 [facility] [address] [id number] [address] [place] [address], [place] [address] Jul, [facility] [address] [id number] [address] [place] [address], [place] [address] Jun, [facility] [address] [id number] [address] [place] [address], [place] [address] Jun, [facility] [address] [id number] [address] [place] [address], [place] [address] Jun, [facility] [address] [id number] [address] [place] [address], [place] [address] Jun, [facility] [address] [id number] [address] [place] [address], [place] [address] 30 May, 2012 [facility] [address] [id number] [address] [place] [address], [place] [address] 26 May, 2012 [facility] [address] [id number] [address] [place] [address], [place] [address] May, [facility] [address] [id number] [address] [place] [address], [place] [address] 16 May, 2012 [facility] [address] [id number] [address] [place] [address], [place] [address] May, [facility] [address] [id number] [address] [place] [address], [place] [address] May, [facility] [address] [id number] [address] [place] [address], [place] [address] Apr, [facility] [address] [id number] [address] [place] [address], [place] [address] March, [facility] [address] [id number] [address] [place] [address], [place] [address] March, [facility] [address] [id number] [address] [place] [address], [place] [address] Feb, [facility] [address] [id number] [address] [place] [address], [place] [address] Feb, [facility] [address] [id number] [address] [place] [address], [place] [address] Feb, [facility] [address] [id number] [address] [place] [address], [place] [address] Feb, [facility] [address] [id number] [address] [place] [address], [place] [address] Jan, [facility] [address] [id number] [address] [place] [address], [place] [address] Dec, [facility] [address] [id number] [address] [place] [address], [place] [address] Nov, [facility] [address] [id number] [address] [place] [phone] Nov, [facility] [address] [id number] [address] [place] [phone] Nov, [facility] [address] [id number] [address] [place] [phone] Oct, [facility] [address] [id number] [address] [place] [phone] Oct, [facility] [address] [id number] [address] [place] [phone] Sep, [facility] [address] [id number] [address] [place] [phone] Sep, [facility] [address] [id number] [address] [place] [address] Oct, [facility] [address] [id number] [address] [place] [phone] Sep, [facility] [address] [id number] [address] [place] [phone] Aug, [facility] [address] [id number] [address] [place] [id number] Aug, IMMUNIZATIONS No Known Immunizations SOCIAL HISTORY [...] cholecystectomy Surgical History heart cath - Stephenie Highin Bob 03/2018 Surgical History hysterectomy Surgical History hernia repair Surgical History tonsillectomy Surgical History Left shoulder joint repair 09/2018 Surgical History Removal of pre cancerous spots on arm /c hest/ nose Surgical History sepulveda cath in till rectum surg on 020 Hospitalization History Multiple Hospital Stays Hospitalization History ER Visit Lisa 05/05/2019
--- OUTSIDE RECORDS SUMMARY | 2020-05-29 11:12 | XMS REPORT ---
Author Author Nanette Morrow [facility] Address [address] [place] [address] Care Team Providers Care Splicing Technician Name Role Phone SAMEER Morrow Unavailable PROBLEMS Type Condition ICD9-CM Code OXU67-AD Code Onset Dates Condition S tatus SNOMED Code Problem Stage 1 skin ulcer of sacral region L98.429 Active Problem Rotator cuff tendonitis M75.80 March, Act alyssa 006300232 Problem Closed fracture of left distal tibia S82.302A Jan, Active 10205584 Problem Hypokalemia E87.6 March, Active 04897 004 Problem Generalized anxiety disorder F41.1 Jun, 201 1 Active 07918557 Problem Diverticulitis of both small and large intestine without perforation or abscess without bleeding K57.52 Feb, Active 307 546846 Problem 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 May, Active 769094271 Problem Essential hypertension I10 Active 32650299 Problem Anemia D64.9 Sep, Active 2354543 00 Problem 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, limited to b reakdown of skin L97.511 Active Problem Generalized abdominal pain R10.84 Sep, Active 713841247 Problem Chronic pain G89.29 Aug, Active 8242 3001 Problem SOB (shortness of breath) R06.02 Nov, A ctive 414186833 Problem CKD (chronic kidney disease) stage 3, GFR 30-59 ml/min N18.3 Apr, Active 236048265 Problem Diastolic dysfunction I51.9 Jan, Activ e 3779441 Problem Ulcerative colitis K51.90 Jul, Active 36874839 Problem Rheumatoid arthritis M06.9 Sep, Active 88131726 Problem PVC (premature ventricular contraction) I49.3 Nov, Active 46509995 Problem Moderate episode of recurrent major depressive disorder F33.1 Active 728075673 Problem Iron deficiency anemia secondary to inadequate d ietary iron intake D50.8 Active 840255189 Problem 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 Active 1006160769521 ALLERGIES No Information ENCOUNTERS Encounter Location Date Diagnosis [address] [id number], [place] [address] March, [address] 340 [id number], [place] [address] Feb, [address] [id number], [place] [address] Feb, [address] 340B [id number], [place] [address] Jan, Nausea alone R11.[address] [id number], [place] [address] 17 Jan, 2020 [facility] [address] [facility] [id number] [address] [place] [address] Jan, Arthralgia of left temporoma ndibular joint M26.[address] 340B [id number], [place] [address] Jan, [address] 340 [id number], [place] [address] 12 Jan, 2020 Ulcerative colitis K51.90 ; CKD (chronic kidney disease) stage 3, GFR 30-59 ml/min N18.3 ; Essential hypertension I10 ; Rheumatoid arthritis with rheumatoid factor of right hand without organ or systems involvement M05.741 ; Intrinsic eczema L20.84 and Rectal prolapse K62.3 [facility] [address] [facility] [id number] [address] [place] [address] 12 Jan, 2020 [facility] [address] [facility] [id number] [address] [place] [address] Jan, [facility] [address] [facility] [id number] [address] [place] [address] Jan, [facility] [address] [facility] [id number] [address] [place] [address] Jan, [facility] [address] [facility] [id number] [address] [place] [address] Jan, [address] 340B [id number], [place] [address] Jan, [address] 340B [id number], [place] [address] Jan, [address] 340B [id number], [place] [address] Jan, [facility] [address] [facility] [id number] [place] [address] Jan, [facility] [address] [facility] [id number] [address] [place] [address] Dec, Skin infection L08.9 and His tory of pneumonia Z87.[address] 340B [id number] [place] [address] Dec, [facility] [address] [facility] [id number] [address] [place] [address] Dec, [facility] [address] [facility] [id number] [address] [place] [address] Dec, [facility] [address] [facility] [id number] [address] [place] [address] 20 Dec, 2019 [facility] [address] [facility] [id number] [place] [address] 19 Dec, 2019 Allergic reaction, initial e ncounter T78.40XA and Swollen upper lip R22.[address] [id number], [place] [address] 19 Dec, [address] [id number], [place] [address] 18 Dec, 2019 [facility] [address] [facility] [id number] [address] [place] [address] 13 Dec, 2019 Cough R05 [address] [id number], [place] [address] 11 Dec, 2019 Iron deficiency anemia secon michell to inadequate dietary iron intake D50.[address] [id number] [address] 11 Dec, 2019 Encounter for Medicare annua l wellness exam Z00.00 ; 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, 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 ; Chronic obstructive pulmonary disease, unspecified COPD type J44.9 ; Ulcerative colitis K51.90 ; CKD (chronic kidney disease) stage 3, GFR 30-59 ml/min N18.3 ; 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 ; B12 deficiency E53.8 and Rheumatoid arthritis with rheumatoid factor of right hand without organ or systems involvement M05.[address] 340B [id number], [place] [address] 03 Dec, [address] [id number], [place] [address] Nov, [address] 340B [id number], [place] [address] 14 Nov, 2019 Other specified peripheral v ascular diseases I73.89 ; Hypertensive heart disease with heart failure I11.0 ; 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 ; Rheumatoid arthritis with rheumatoid factor of right hand without organ or systems involvement M05.741 ; 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 ; Anemia, unspecified type D64.9 and Moderate episode of recurrent major depressive disorder F33.1 [facility] PUENTE [address] 340B [id number] [place] [address] Nov, [facility] KIKO PU[place]E [address] 340B [id number] [place] [address] Nov, [facility] KIKO PU[place]E [address] 340B [id number] [place] [address] Nov, [facility] KIKO PU[place] [address] 340B [id number], [place] [address] Nov, [facility] [address] [facility] [id number] [address] [place] [address] Oct, Rhinitis, unspecified type J 31.0 and Concussion without loss of consciousness, subsequent encounter S06.0X0D [facility] PUENTE [address] 340B [id number] [place] [address] Oct, [facility] KIKO PUENTE [address] 340B [id number], [place] [address] Oct, [facility] KIKO PUENTE [address] 340B [id number] [place] [address] Aug, [facility] KIKO PUENTE [address] 340B [id number] [place] [address] Aug, [facility] KIKO PUENTE [address] 340B [id number], [place] [address] Aug, [facility] KIKO PUENTE [address] 340B [id number] [place] [address] Jul, [facility] [address] [facility] [id number] [address] [place] [address] Jul, Right hip pain M25.551 [facility] PUENTE [address] 340B [id number], [place] [address] Jul, [facility] [address] [id number] [place] [address] Jul, [facility] [address] [id number] [place] [address] Jun, Rheumatoid arthritis M06.9 ; Ulcerative colitis K51.90 and Rectal prolapse K62.3 [facility] [address] [id number] [place] [address] Jun, [facility] [address] [id number] [place] [address] Jun, [facility] [address] [facility] [id number] [address] [place] [address] Jun, COPD exacerbation J44.1 [facility] [place] [address] [id number], [place] [address] Jun, [facility] [place] [address] [id number], [place] [address] May, [facility] [place] [address] [id number], [place] [address] May, Diastolic dysfunction I51.9 [facility] [address] [id number], [place] [address] May, Rectal prolapse K62.3 ; Rheu matoid arthritis M06.9 ; Diastolic dysfunction I51.9 and CKD (chronic kidney disease) stage 3, GFR 30-59 ml/min N18.3 [facility] [place] [address]B [id number] [place] [address] May, [facility] [place] [address] [id number], [place] [address] May, [facility] [place] [address] [facility] [id number] [place] [address] May, Inflammation, skin L08.9 and Non-intractable vomiting with nausea, unspecified vomiting type R11.2 [facility] [place] [address] [id number] [place] [address] May, [facility] K[place]KO PU[place] 340B [id number] [place] [address] Apr, [facility] KIKO PUENTE [address] 340B [id number] [place] [address] Apr, Acute ethmoidal sinusitis, r ecurrence not specified J01.20 and Bronchitis J40 [facility] [place] [address] [id number] [place] [address] Apr, Sore throat J02.9 and Oral thrush B37.0 [facility] [address] [id number] [place] [address] Apr, Screening for breast cancer Z12.39 [facility] KIKO PUENTE [address] 340B [id number], [place] [address] Apr, [facility] KIKO PUENT[address] 340B [id number], [place] [address] Apr, Rheumatoid arthritis M06.9 [facility] PUENTE [address] 340B [id number], [place] [address] March, [facility] KIKO PUENTE [address] 340B [id number], [place] [address] March, [facility] PUENT[facility] [address] 340B [id number], [place] [address] March, [facility] KIKO PUENTE [address] 340B [id number], [place] [address] March, [facility] KIKO PUENTE [address] 340B [id number], [place] [address] March, Ulcerative colitis K51.90 an d 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 [facility] PUENTE [address] 340B [id number] [place] [address] Feb, [facility] KIKO PUENT[place] [address] 340B [id number], [place] [address] Feb, [facility] [address] [facility] [id number] [address] [place] [address] Jan, [facility] [place] [address] 340 [id number], [place] [address] Jan, Diastolic dysfunction I51.9 ; Rheumatoid arthritis M06.9 ; Ulcerative colitis K51.90 ; Essential hypertension I10 ; Moderate episode of recurrent major depressive disorder F33.1 and Iron deficiency anemia secondary to inadequate dietary iron intake D50.8 [facility] [place] [address] 340 [id number], [place] [address] Jan, [facility] [place] [address] 340 [id number], [place] [address] Jan, Acute bronchitis, unspecifie d organism J20.9 and 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 [facility] [address] [facility] [id number] [address] [place] [address] Dec, [facility] [place] [address] 340 [id number], [place] [address] Dec, [facility] [address] [place] [id number] [place] [address] Nov, Viral upper respiratory illness J06.9 and Nausea alone R11.0 [facility] [address] [facility] [id number] [address] [place] [address] Oct, [facility] [address] [facility] [id number] [address] [place] [address] Oct, [facility] [address] [facility] [id number] [address] [place] [address] Oct, [facility] [address] [facility] [id number] [address] [place] [address] Aug, [facility] [address] [facility] [id number] [address] [place] [address] March, [facility] [address] [facility] [id number] [address] [place] [address] 14 Feb, 2015 [facility] [address] [id number] [address] [place] [address], [place] [address] 13 Feb, 2015 [facility] [address] [id number] [address] [place] [address], [place] [address] 10 Jan, 2015 [facility] [address] [id number] [address] [place] [address], [place] [address] Jan, [facility] [address] [id number] [address] [place] [address], [place] [address] Oct, [facility] [address] [id number] [address] [place] [address], [place] [address] Oct, [facility] [address] [id number] [address] [place] [address], [place] [address] Oct, [facility] [address] [id number] [address] [place] [address], [place] [address] Sep, [facility] [address] [id number] [address] [place] [address], [place] [address] Sep, [facility] [address] [id number] [address] [place] [address], [place] [address] Sep, [facility] [address] [id number] [address] [place] [address], [place] [address] Sep, [facility] [address] [id number] [address] [place] [address], [place] [address] Sep, [facility] [address] [id number] [address] [place] [address] Aug, [facility] [address] [id number] [address] [place] [address], [place] [address] Aug, [facility] [address] [id number] [address] [place] [address], [place] [address] Jul, [facility] [address] [id number] [address] [place] [address], [place] [address] Jul, [facility] [address] [id number] [facility] [place] [address] 10 Jul, 2013 [facility] [address] [id number] [address] [place] [address], [place] [address] 10 Jul, 2013 [facility] [address] [id number] [address] [place] [address], [place] [address] 08 Jul, 2013 [facility] [address] [id number] [address] [place] [address], [place] [address] Jul, 2013 [facility] [address] [id number] [address] [place] [address], [place] [address] May, 2013 [facility] [address] [id number] [address] [place] [address], [place] [address] May, 2013 [facility] [address] [id number] [address] [place] [address], [place] [address] May, [facility] [address] [id number] [address] [place] [address], [place] [address] May, [facility] [address] [id number] [address] [place] [address], [place] [address] May, [facility] [address] [id number] [address] [place] [address], [place] [address] May, [facility] [address] [id number] [address] [place] [address], [place] [address] Apr, [facility] [address] [id number] [address] [place] [address], [place] [address] Apr, [facility] [address] [id number] [address] [place] [address], [place] [address] Apr, [facility] [address] [id number] [address] [place] [address], [place] [address] Apr, [facility] [address] [id number] [address] [place] [address], [place] [address] Apr, [facility] [address] [id number] [address] [place] [address], [place] [address] Apr, [facility] [address] [id number] [address] [place] [address], [place] [address] Apr, [facility] [address] [id number] [address] [place] [address], [place] [address] Apr, [facility] [address] [id number] [address] [place] [address], [place] [address] March, [facility] [address] [id number] [address] [place] [address], [place] [address] March, [facility] [address] [id number] [address] [place] [address], [place] [address] March, [facility] [address] [id number] [address] [place] [address], [place] [address] Feb, [facility] [address] [id number] [address] [place] [address], [place] [address] Feb, [facility] [address] [id number] [address] [place] [address], [place] [address] Feb, [facility] [address] [id number] [address] [place] [address], [place] [address] Feb, [facility] [address] [id number] [address] [place] [address], [place] [address] Feb, [facility] [address] [id number] [address] [place] [address], [place] [address] Feb, [facility] [address] [id number] [address] [place] [address], [place] [address] Feb, [facility] [address] [id number] [address] [place] [address], [place] [address] Feb, [facility] [address] [id number] [address] [place] [address], [place] [address] Jan, [facility] [address] [id number] [address] [place] [address] Jan, [facility] [address] [id number] [address] [place] [id number] Dec, [facility] [address] [id number] [address] [place] [address], [place] [address] Dec, [facility] [address] [id number] [address] [place] [address], [place] [address] Dec, [facility] [address] [id number] [address] [place] [address], [place] [address] Dec, [facility] [address] [id number] [address] [place] [address], [place] [address] Dec, [facility] [address] [id number] [address] [place] [address], [place] [address] Nov, [facility] [address] [id number] [address] [place] [address], [place] [address] Nov, [facility] [address] [id number] [address] [place] [address], [place] [address] Nov, [facility] [address] [id number] [address] [place] [address], [place] [address] Nov, [facility] [address] [id number] [address] [place] [address], [place] [address] Nov, [facility] [address] [id number] [address] [place] [address], [place] [address] Nov, [facility] [address] [id number] [address] [place] [address], [place] [address] Oct, [facility] [address] [id number] [address] [place] [address], [place] [address] Oct, [facility] [address] [id number] [address] [place] [address], [place] [address] Sep, [facility] [address] [id number] [address] [place] [address], [place] [address] Sep, [facility] [address] [id number] [address] [place] [address], [place] [address] Sep, [facility] [address] [id number] [address] [place] [address], [place] [address] Sep, [facility] [address] [id number] [address] [place] [address], [place] [address] Sep, [facility] [address] [id number] [address] [place] [address], [place] [address] Sep, [facility] [address] [id number] [address] [place] [address], [place] [address] Aug, [facility] [address] [id number] [address] [place] [address], [place] [address] Aug, [facility] [address] [id number] [address] [place] [address], [place] [address] May, [facility] [address] [id number] [address] [place] [address], [place] [address] May, [facility] [address] [id number] [address] [place] [address], [place] [address] May, [facility] [address] [id number] [address] [place] [address], [place] [address] May, [facility] [address] [id number] [address] [place] [address], [place] [address] Apr, [facility] [address] [id number] [address] [place] [address], [place] [address] Feb, [facility] [address] [id number] [address] [place] [address], [place] [address] Jan, [facility] [address] [id number] [address] [place] [address], [place] [address] 24 Nov, 2012 [facility] [address] [id number] [address] [place] [address], [place] [address] Nov, [facility] [address] [id number] [address] [place] [address], [place] [address] Nov, [facility] [address] [id number] [address] [place] [address], [place] [address] Nov, [facility] [address] [id number] [address] [place] [address], [place] [address] 31 Oct, 2012 [facility] [address] [id number] [address] [place] [address], [place] [address] Oct, [facility] [address] [id number] [address] [place] [address], [place] [address] Oct, [facility] [address] [id number] [address] [place] [address], [place] [address] Oct, [facility] [address] [id number] [address] [place] [address], [place] [address] Oct, [facility] [facility] [address] [id number] [address] [place] [address], [place] [address] Oct, [facility] [address] [id number] [address] [place] [address], [place] [address] Oct, [facility] [address] [id number] [address] [place] [address], [place] [address] Oct, [facility] [address] [id number] [address] [place] [address], [place] [address] Sep, [facility] [address] [id number] [address] [place] [address], [place] [address] Sep, [facility] [address] [id number] [address] [place] [address], [place] [address] 16 Aug, 2012 [facility] [address] [id number] [address] [place] [address], [place] [address] 16 Aug, 2012 [facility] [address] [id number] [address] [place] [address], [place] [address] 24 Jul, 2012 [facility] [address] [id number] [address] [place] [address], [place] [address] 12 Jul, 2012 [facility] [address] [id number] [address] [place] [address], [place] [address] 30 Jun, 2012 [facility] [address] [id number] [address] [place] [address], [place] [address] Jun, [facility] [address] [id number] [address] [place] [address], [place] [address] Jun, [facility] [address] [id number] [address] [place] [address], [place] [address] Jun, [facility] [address] [id number] [address] [place] [address], [place] [address] May, [facility] [address] [id number] [address] [place] [address], [place] [address] May, [facility] [address] [id number] [address] [place] [address], [place] [address] May, [facility] [address] [id number] [address] [place] [address], [place] [address] May, [facility] [address] [id number] [address] [place] [address], [place] [address] May, [facility] [address] [id number] [address] [place] [address], [place] [address] May, [facility] [address] [id number] [address] [place] [address], [place] [address] Apr, [facility] [address] [id number] [address] [place] [address], [place] [address] March, [facility] [address] [id number] [address] [place] [address], [place] [address] March, [facility] [address] [id number] [address] [place] [address], [place] [address] Feb, [facility] [address] [id number] [address] [place] [address], [place] [address] Feb, [facility] [address] [id number] [address] [place] [address], [place] [address] Feb, [facility] [address] [id number] [address] [place] [address], [place] [address] Feb, [facility] [address] [id number] [address] [place] [address] Jan, [facility] [address] [id number] [address] [place] [address] Dec, [facility] [address] [id number] [address] [place] [phone] Nov, [facility] [address] [id number] [address] [place] [address] Nov, [facility] [address] [id number] [address] [place] [address] Nov, [facility] [address] [id number] [address] [place] [phone] Oct, [facility] [address] [id number] [address] [place] [address] Oct, [facility] [address] [id number] [address] [place] [phone] Sep, [facility] [address] [id number] [address] [place] [phone] Sep, [facility] [address] [id number] [address] [place] [address] Oct, [facility] [address] [id number] [address] [place] [phone] Sep, [facility] [address] [id number] [address] [place] [address] Aug, [facility] [address] [id number] [address] [place] [address] Aug, IMMUNIZATIONS No Known Immunizations SOCIAL HISTORY [...]
--- OUTSIDE RECORDS SUMMARY | 2020-05-29 11:12 | XMS REPORT ---
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 Name Role Phone Migration, Doctor Unavailable Unavailable PROBLEMS Type Condition ICD9-CM Code TIY32-KC Code Onset Dates Condition S tatus SNOMED Code Problem Stage 1 skin ulcer of sacral region L98.429 Active Problem Rotator cuff tendonitis M75.80 March, Act alyssa [id number] Problem Closed fracture of left distal tibia S82.302A Jan, Active 42562598 Problem Hypokalemia E87.6 March, Active 24209 004 Problem Generalized anxiety disorder F41.1 Jun, 201 1 Active 17182126 Problem Diverticulitis of both small and large intestine without perforation or abscess without bleeding K57.52 Feb, Active 307 883046 Problem 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 May, Active 588649737 Problem Essential hypertension I10 Active 58678330 Problem Anemia D64.9 Sep, Active 8557477 00 Problem 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, limited to b reakdown of skin L97.511 Active Problem Generalized abdominal pain R10.84 Sep, Active 724135921 Problem Chronic pain G89.29 Aug, Active 8242 3001 Problem SOB (shortness of breath) R06.02 Nov, A ctive 995701213 Problem CKD (chronic kidney disease) stage 3, GFR 30-59 ml/min N18.3 Apr, Active 617681164 Problem Diastolic dysfunction I51.9 Jan, Activ e 8117255 Problem Ulcerative colitis K51.90 Jul, Active 63289546 Problem Rheumatoid arthritis M06.9 Sep, Active 38381259 Problem PVC (premature ventricular contraction) I49.3 Nov, Active 75638706 Problem Moderate episode of recurrent major depressive disorder F33.1 Active 070503074 Problem Iron deficiency anemia secondary to inadequate d ietary iron intake D50.8 Active 617720110 Problem 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 Active [id number] ALLERGIES No Information ENCOUNTERS Encounter Location Date Diagnosis [address] [id number] [address] Feb, [address] 340[address] [id number] [address] Jan, Nausea alone R11.[address] 340[address] [id number] [address] 17 Jan, 2020 [facility] [place] [address] [facility] [id number] [address] [place] [address] Jan, Arthralgia of left temporoma ndibular joint M26.[address] 340[address] [id number] [address] Jan, [address] 340[address] [id number] [address] Jan, Ulcerative colitis K51.90 ; CKD (chronic kidney disease) stage 3, GFR 30-59 ml/min N18.3 ; Essential hypertension I10 ; Rheumatoid arthritis with rheumatoid factor of right hand without organ or systems involvement M05.741 ; Intrinsic eczema L20.84 and Rectal prolapse K62.3 [facility] [place] [address] [facility] [id number] [place] [address] Jan, [facility] [place] [address] [facility] [id number] [address] [place] [address] 10 Jan, 2020 [facility] [place] [address] [facility] [id number] [address] [place] [address] 09 Jan, 2020 [facility] [place] [address] [facility] [id number] [address] [place] [address] Jan, [facility] [place] [address] [facility] [id number] [address] [place] [address] 05 Jan, [address] 340B [id number] [place] [address] Jan, [address] 340[address] [id number] [place] [address] Jan, [address] 340B [id number] [place] [address] Jan, [facility] [place] [address] [facility] [id number] [place] [address] Jan, [facility] [place] [address] [facility] [id number] [address] [place] [address] Dec, Skin infection L08.9 and His tory of pneumonia Z87.[address] 340B [id number] [place] [address] Dec, [facility] [place] [address] [facility] [id number] [address] [place] [address] Dec, [facility] [place] [address] [facility] [id number] [address] [place] [address] Dec, [facility] [place] [address] [facility] [id number] [address] [place] [address] Dec, [facility] [address] [facility] [id number] [address] [place] [address] Dec, Allergic reaction, initial e ncounter T78.40XA and Swollen upper lip R22.[address] 340B [id number] [address] Dec, [address] 340B [id number] [place] [address] 18 Dec, 2019 [facility] [address] [facility] [id number] [address] [place] [address] 13 Dec, 2019 Cough R05 [address] 340B [id number] [place] [address] 11 Dec, 2019 Iron deficiency anemia secon michell to inadequate dietary iron intake D50.[address] 340B [id number] [place] [address] 11 Dec, 2019 Encounter for Medicare annua l wellness exam Z00.00 ; 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, 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 ; Chronic obstructive pulmonary disease, unspecified COPD type J44.9 ; Ulcerative colitis K51.90 ; CKD (chronic kidney disease) stage 3, GFR 30-59 ml/min N18.3 ; Atherosclerosis of point hope ir[place] coronary artery of [place] heart with angina pectoris I25.119 ; B12 deficiency E53.8 and Rheumatoid arthritis with rheumatoid factor of right hand without organ or systems involvement M05.[address] 340 [id number] [address] 03 Dec, [address] 340B [id number] [address] Nov, [address] 340[address] [id number] [place] [address] 14 Nov, 2019 Other specified peripheral v ascular diseases I73.89 ; Hypertensive heart disease with heart failure I11.0 ; 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 ; Rheumatoid arthritis with rheumatoid factor of right hand without organ or systems involvement M05.741 ; 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 ; Anemia, unspecified type D64.9 and Moderate episode of recurrent major depressive disorder F33.[address] 340B [id number] [address] Nov, [address] 340B [id number] [place] [address] Nov, [facility] [place] [address] 340B [id number] [place] [address] Nov, [facility] [place] [address] [id number] [place] [address] Nov, [facility] [address] [facility] [id number] [address] [place] [address] Oct, Rhinitis, unspecified type J 31.0 and Concussion without loss of consciousness, subsequent encounter S06.0X0D [facility] [place] [address] [id number] [place] [address] Oct, [facility] [place] [address] [id number] [place] [address] Oct, [facility] [place] [address] 340B [id number] [place] [address] Aug, [facility] [place] [address] [id number] [place] [address] Aug, [facility] [place] [address] [id number] [place] [address] Aug, [facility] [place] [address] [id number] [place] [address] Jul, [facility] [address] [facility] [id number] [address] [place] [address] Jul, Right hip pain M25.551 [facility] [place] [address] [id number] [place] [address] Jul, [facility] [place] [address] [id number] [place] [address] Jul, [facility] [place] [address] [id number] [place] [address] Jun, Rheumatoid arthritis M06.9 ; Ulcerative colitis K51.90 and Rectal prolapse K62.3 [place] [address] 340B [id number] [place] [address] Jun, [facility] [place] [address] 340[address] [id number] [place] [address] Jun, [facility] [address] [id number] [address] [place] [address] Jun, COPD exacerbation J44.1 [facility] [place] [address] 340B [id number] [place] [address] Jun, [facility] [place] [address] 340B [id number] [place] [address] May, [facility] [place] [address] 340B [id number] [place] [address] May, Diastolic dysfunction I51.9 [facility] [place] [address] 340B [id number] [place] [address] May, Rectal prolapse K62.3 ; Rheu matoid arthritis M06.9 ; Diastolic dysfunction I51.9 and CKD (chronic kidney disease) stage 3, GFR 30-59 ml/min N18.3 [facility] [place] [address] 340[address] [id number] [place] [address] May, [facility] [place] [address] 340B [id number] [place] [address] May, [facility] [place] [address] [facility] [id number] [place] [address] May, Inflammation, skin L08.9 and Non-intractable vomiting with nausea, unspecified vomiting type R11.2 [facility] [place] [address] 340B [id number] [place] [address] May, [facility] [place] [address] 340[address] [id number] [place] [address] Apr, [facility] [place] [address] 340[address] [id number] [place] [address] Apr, Acute ethmoidal sinusitis, r ecurrence not specified J01.20 and Bronchitis J40 [facility] [place] [address] [facility] [id number] [place] [address] Apr, Sore throat J02.9 and Oral thrush B37.0 [facility] [place] [address] [facility] [id number] [place] [address] Apr, Screening for breast cancer Z12.39 [facility] [place] [address] 340B [id number] [place] [address] Apr, [facility] [place] [address] 340B [id number] [place] [address] Apr, Rheumatoid arthritis M06.9 [facility] [place] [address] 340B [id number] [place] [address] March, [facility] [place] [address] 340B [id number] [address] March, [facility] [place] [address] 340B [id number] [place] [address] March, [facility] [place] [address] 340B [id number] [place] [address] March, [facility] [place] [address] 340B [id number] [place] [address] March, Ulcerative colitis K51.90 an d 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 [facility] [place] [address] 340B [id number] [place] [address] Feb, [facility] [place] [address] 340B [id number] [place] [address] Feb, [facility] [place] [address] [facility] [id number] [place] [address] Jan, [facility] [place] [address] 340B [id number] [place] [address] Jan, Diastolic dysfunction I51.9 ; Rheumatoid arthritis M06.9 ; Ulcerative colitis K51.90 ; Essential hypertension I10 ; Moderate episode of recurrent major depressive disorder F33.1 and Iron deficiency anemia secondary to inadequate dietary iron intake D50.8 [facility] [place] [facility] [address] [facility] 340B [id number] [place] [address] Jan, [facility] [place] [address] 340B [id number] [place] [address] Jan, Acute bronchitis, unspecifie d organism J20.9 and 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 [id number] [place] [address] Nov, Viral upper respiratory illness J06.9 and Nausea alone R11.0 [facility] [place] [address] [facility] [id number] [address] [place] [address] Oct, [facility] [place] [address] [facility] [id number] [address] [place] [address] Oct, [facility] [place] [address] [facility] [id number] [address] [place] [address] Oct, [facility] [place] [address] [facility] [id number] [address] [place] [address] Aug, [facility] [place] [address] [facility] [id number] [address] [place] [address] March, [facility] [place] [address] [facility] [id number] [address] [place] [address] Feb, [facility] [place] [address] [facility] [id number] [address] [place] [address] Feb, [facility] [place] [address] [facility] [id number] [address] [place] [address] 10 Jan, 2015 [facility] [place] [address] [facility] [id number] [address] [place] [address] Jan, [facility] [address] [id number] [address] [place] [address], [place] [address] Oct, [facility] [address] [id number] [address] [place] [address], [place] [address] Oct, [facility] [address] [id number] [address] [place] [address], [place] [address] Oct, [facility] [address] [id number] [address] [place] [address], [place] [address] Sep, [facility] [address] [id number] [address] [place] [address], [place] [address] Sep, [facility] [address] [id number] [address] [place] [address], [place] [address] Sep, [facility] [address] [id number] [address] [place] [address], [place] [address] Sep, [facility] [address] [id number] [address] [place] [address], [place] [address] Sep, [facility] [address] [id number] [address] [place] [address], [place] [address] Aug, [facility] [address] [id number] [address] [place] [address], [place] [address] Aug, [facility] [address] [id number] [address] [place] [address], [place] [address] Jul, [facility] [address] [id number] [address] [place] [address], [place] [address] Jul, [facility] [address] [id number] [address] [place] [address], [place] [address] Jul, [facility] [address] [id number] [address] [place] [address], [place] [address] Jul, [facility] [address] [id number] [address] [place] [address], [place] [address] 08 Jul, 2014 [facility] [address] [id number] [address] [place] [address], [place] [address] Jul, [facility] [address] [id number] [address] [place] [address], [place] [address] May, [facility] [address] [id number] [address] [place] [address], [place] [address] May, [facility] [address] [id number] [address] [place] [address], [place] [address] May, [facility] [address] [id number] [address] [place] [address], [place] [address] May, [facility] [address] [id number] [address] [place] [address], [place] [address] May, [facility] [address] [id number] [address] [place] [address], [place] [address] May, [facility] [address] [id number] [address] [place] [address], [place] [address] Apr, [facility] [address] [id number] [address] [place] [address], [place] [address] Apr, [facility] [address] [id number] [address] [place] [address], [place] [address] Apr, [facility] [address] [id number] [address] [place] [address], [place] [address] Apr, [facility] [address] [id number] [address] [place] [address], [place] [address] Apr, [facility] [address] [id number] [address] [place] [address], [place] [address] Apr, [facility] [address] [id number] [address] [place] [address], [place] [address] Apr, [facility] [address] [id number] [address] [place] [address], [place] [address] Apr, [facility] [address] [id number] [address] [place] [address], [place] [address] March, [facility] [address] [id number] [address] [place] [address], [place] [address] March, [facility] [address] [id number] [address] [place] [address], [place] [address] March, [facility] [address] [id number] [address] [place] [address], [place] [address] Feb, [facility] [address] [id number] [address] [place] [address], [place] [address] Feb, [facility] [address] [id number] [address] [place] [address], [place] [address] Feb, [facility] [address] [id number] [address] [place] [address], [place] [address] Feb, [facility] [address] [id number] [address] [place] [address], [place] [address] Feb, [facility] [address] [id number] [address] [place] [address], [place] [address] Feb, [facility] [address] [id number] [address] [place] [address], [place] [address] Feb, [facility] [address] [id number] [address] [place] [address], [place] [address] Feb, [facility] [address] [id number] [address] [place] [address], [place] [address] Jan, [facility] [address] [id number] [address] [place] [address], [place] [address] Jan, [facility] [address] [id number] [address] [place] [address], [place] [id number] Dec, [facility] [address] [id number] [address] [place] [address], [place] [address] Dec, [facility] [address] [id number] [address] [place] [address], [place] [address] Dec, [facility] [address] [id number] [address] [place] [address], [place] [address] Dec, [facility] [address] [id number] [address] [place] [address], [place] [address] Dec, [facility] [address] [id number] [address] [place] [address], [place] [address] Nov, [facility] [address] [id number] [address] [place] [address], [place] [address] Nov, [facility] [address] [id number] [address] [place] [address], [place] [address] Nov, [facility] [address] [id number] [address] [place] [address], [place] [address] Nov, [facility] [address] [id number] [address] [place] [address], [place] [address] Nov, [facility] [address] [id number] [address] [place] [address], [place] [address] Nov, [facility] [address] [id number] [address] [place] [address], [place] [address] Oct, [facility] [address] [id number] [address] [place] [address], [place] [address] Oct, [facility] [address] [id number] [address] [place] [address], [place] [address] Sep, [facility] [address] [id number] [address] [place] [address], [place] [address] Sep, [facility] [address] [id number] [address] [place] [address], [place] [address] Sep, [facility] [address] [id number] [address] [place] [address], [place] [address] Sep, [facility] [address] [id number] [address] [place] [address], [place] [address] Sep, [facility] [address] [id number] [address] [place] [address], [place] [address] Sep, [facility] [address] [id number] [address] [place] [address], [place] [address] 14 Aug, 2013 [facility] [address] [id number] [address] [place] [address], [place] [address] 14 Aug, 2013 [facility] [address] [id number] [address] [place] [address], [place] [address] May, [facility] [address] [id number] [address] [place] [address], [place] [address] May, [facility] [address] [id number] [address] [place] [address], [place] [address] May, [facility] [address] [id number] [address] [place] [address], [place] [address] May, [facility] [address] [id number] [address] [place] [address], [place] [address] Apr, [facility] [address] [id number] [address] [place] [address], [place] [address] Feb, [facility] [address] [id number] [address] [place] [address], [place] [address] Jan, [facility] [address] [id number] [address] [place] [address], [place] [address] Nov, [facility] [address] [id number] [address] [place] [address], [place] [address] Nov, [facility] [address] [id number] [address] [place] [address], [place] [address] Nov, [facility] [address] [id number] [address] [place] [address], [place] [address] Nov, [facility] [address] [id number] [address] [place] [address], [place] [address] Oct, [facility] [address] [id number] 22 [place] [address], [place] [address] Oct, [facility] [address] [id number] [address] [place] [address], [place] [address] Oct, [facility] [address] [id number] [address] [place] [address], [place] [address] Oct, [facility] [address] [id number] [address] [place] [address], [place] [address] Oct, [facility] [address] [id number] [address] [place] [address], [place] [address] Oct, [facility] [address] [id number] [address] [place] [address], [place] [address] Oct, [facility] [address] [id number] [address] [place] [address], [place] [address] Oct, [facility] [address] [id number] [address] [place] [address], [place] [address] Sep, [facility] [address] [id number] [address] [place] [address], [place] [address] Sep, [facility] [address] [id number] [address] [place] [address], [place] [address] 16 Aug, 2012 [facility] [address] [id number] [address] [place] [address], [place] [address] Aug, [facility] [address] [id number] [address] [place] [address], [place] [address] 24 Jul, 2012 [facility] [address] [id number] [address] [place] [address], [place] [address] Jul, [facility] [address] [id number] [address] [place] [address], [place] [address] Jun, [facility] [address] [id number] [address] [place] [address], [place] [address] Jun, [facility] [address] [id number] [address] [place] [address], [place] [address] Jun, [facility] [address] [id number] [address] [place] [address], [place] [address] Jun, [facility] [address] [id number] [address] [place] [address], [place] [address] 30 May, 2012 [facility] [address] [id number] [address] [place] [address], [place] [address] 26 May, 2012 [facility] [address] [id number] [address] [place] [address], [place] [address] May, [facility] [address] [id number] [address] [place] [address], [place] [address] 16 May, 2012 [facility] [address] [id number] [address] [place] [address], [place] [address] May, [facility] [address] [id number] [address] [place] [address], [place] [address] May, [facility] [address] [id number] [address] [place] [address], [place] [address] Apr, [facility] [address] [id number] [address] [place] [address], [place] [address] March, [facility] [address] [id number] [address] [place] [address], [place] [address] March, [facility] [address] [id number] [address] [place] [address], [place] [address] Feb, [facility] [address] [id number] [address] [place] [address], [place] [address] Feb, [facility] [address] [id number] [address] [place] [address], [place] [address] Feb, [facility] [address] [id number] [address] [place] [address], [place] [address] Feb, [facility] [address] [id number] [address] [place] [address], [place] [address] Jan, [facility] [address] [id number] [address] [place] [address], [place] [address] Dec, [facility] [address] [id number] [address] [place] [address], [place] [address] Nov, [facility] [place] [address] [id number] [address] [place] [address] Nov, [facility] [place] [address] [id number] [address] [place] [address] Nov, [facility] [place] [address] [id number] [address] [place] [address] Oct, [facility] [place] [address] [id number] [address] [place] [address] Oct, [facility] [place] [address] [id number] [address] [place] [address] Sep, [facility] [place] [address] [id number] [address] [place] [address] Sep, [facility] [place] [address] [id number] [address] [place] [address] Oct, [facility] [place] [address] [id number] [address] [place] [address] Sep, [facility] [place] [address] [id number] [address] [place] [address] Aug, [facility] [place] [address] [id number] [address] [place] [address] Aug, IMMUNIZATIONS No Known Immunizations SOCIAL HISTORY [...]
--- OUTSIDE RECORDS SUMMARY | 2020-05-29 11:13 | XMS REPORT ---
Author Author Nanette Atkins Doctor Organization [facility] Address Unknown Phone Unavailable Care Team Providers Care Magazine Writer Name Role Phone Migration, Doctor Unavailable Unavailable PROBLEMS Type Condition ICD9-CM Code [id number] Code Onset Dates Condition S tatus SNOMED Code Problem Stage 1 skin ulcer of sacral region L98.429 Active Problem Rotator cuff tendonitis M75.80 March, Act alyssa [id number] Problem Closed fracture of left distal tibia S82.302A Jan, Active 48764623 Problem Hypokalemia E87.6 March, Active 33221 004 Problem Generalized anxiety disorder F41.1 Jun, 201 1 Active 40949464 Problem Diverticulitis of both small and large intestine without perforation or abscess without bleeding K57.52 Feb, Active 307 968931 Problem 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 May, Active 348372396 Problem Essential hypertension I10 Active 93953059 Problem Anemia D64.9 Sep, Active 8198246 00 Problem 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, limited to b reakdown of skin L97.511 Active Problem Generalized abdominal pain R10.84 Sep, Active 671933149 Problem Chronic pain G89.29 Aug, Active 8242 3001 Problem SOB (shortness of breath) R06.02 Nov, A ctive 525482486 Problem CKD (chronic kidney disease) stage 3, GFR 30-59 ml/min N18.3 Apr, Active 007581718 Problem Diastolic dysfunction I51.9 Jan, Activ e 7131813 Problem Ulcerative colitis K51.90 Jul, Active 68493685 Problem Rheumatoid arthritis M06.9 Sep, Active 22338500 Problem PVC (premature ventricular contraction) I49.3 Nov, Active 47364498 Problem Moderate episode of recurrent major depressive disorder F33.1 Active 442931699 Problem Iron deficiency anemia secondary to inadequate d ietary iron intake D50.8 Active 239034463 Problem 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 Active [id number] ALLERGIES No Information ENCOUNTERS Encounter Location Date Diagnosis [address] [place] [address] Feb, [address] [address] [address] Jan, Arthralgia of left temporomandibular kate nt M26.622 [address] [place] [address] Jan, [address] [place] [address] Jan, Ulcerative colitis K51.90 ; CKD (chronic kidney disease) stage 3, GFR 30-59 ml/min N18.3 ; Essential hypertension I10 ; Rheumatoid arthritis with rheumatoid factor of right hand without organ or systems involvement M05.741 and Intrinsic eczema L20.84 [id number] [place] [address] Jan, [facility] [address] [address] Jan, [facility] [address] [address] Jan, [facility] [address] [address] Jan, [address] [address] [id number] [place] [address] 05 Jan, [address] [place] [address] 04 Jan, [address] [place] [address] 04 Jan, 2020 [address] [place] [address] 04 Jan, 2020 [facility] [place] [address] [facility] [id number] [place] [address] Jan, [facility] [id number] [place] [address] Dec, Skin infection L08.9 and History of pneu monia Z87.01 [address] [place] [address] Dec, [facility] [id number] [place] [address] Dec, [facility] [id number] [place] [address] Dec, [facility] [id number] [place] [address] Dec, [facility] [address] [facility] [id number] [address] [place] [address] Dec, Allergic reaction, initial e ncounter T78.40XA and Swollen upper lip R22.0 [address] [place] [address] Dec, [address] [place] [address] Dec, [facility] [address] [facility] [id number] [address] [place] [address] 13 Dec, 2019 Cough R05 [address] [place] [address] 11 Dec, 2019 Iron deficiency anemia christian galarza to inadequate dietary iron intake D50.8 [address] [place] [address] 11 Dec, 2019 Encounter for Medicare carroll kline wellness exam Z00.00 ; 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, 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 ; Chronic obstructive pulmonary disease, unspecified COPD type J44.9 ; Ulcerative colitis K51.90 ; CKD (chronic kidney disease) stage 3, GFR 30-59 ml/min N18.3 ; Atherosclerosis of makah coronary artery of makah heart with angina pectoris I25.119 ; B12 deficiency E53.8 and Rheumatoid arthritis with rheumatoid factor of right hand without organ or systems involvement M05.741 [address] [place] [address] 03 Dec, 2019 [address] [place] [address] 17 Nov, 2019 [address] [place] [address] 14 Nov, 2019 Other specified peripheral v ascular diseases I73.89 ; Hypertensive heart disease with heart failure I11.0 ; 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 ; Rheumatoid arthritis with rheumatoid factor of right hand without organ or systems involvement M05.741 ; 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 ; Anemia, unspecified type D64.9 and Moderate episode of recurrent major depressive disorder F33.1 [address] [place] [address] Nov, [address] [place] [address] Nov, [address] [place] [address] Nov, [address] [place] [address] Nov, [facility] [address] [facility] [id number] [address] [place] [address] Oct, Rhinitis, unspecified type J 31.0 and Concussion without loss of consciousness, subsequent encounter S06.0X0D [facility] [place] [address] [place] [address] Oct, [facility] [place] [address] [place] [address] Oct, [facility] [place] [address] [place] [address] Aug, [facility] [place] [address] [place] [address] Aug, [facility] [place] [place] [address] [place] [address] Aug, [facility] [place] [place] [address] [place] [address] Jul, [facility] [address] [facility] [id number] [address] [place] [address] Jul, Right hip pain M25.551 [facility] [place] [address] [place] [address] Jul, [facility] [place] [address] [place] [address] Jul, [facility] [place] [address] [place] [address] Jun, Rheumatoid arthritis M06.9 ; Ulcerative colitis K51.90 and Rectal prolapse K62.3 [facility] [place] [address] [place] [address] Jun, [facility] [place] [address] [place] [address] Jun, [facility] [address] [facility] [id number] [place] [address] Jun, COPD exacerbation J44.1 [facility] [place] [address] [place] [address] Jun, [facility] [place] [address] [place] [address] May, [facility] [place] [address] [place] [address] May, Diastolic dysfunction I51.9 [facility] [place] [address] [place] [address] May, Rectal prolapse K62.3 ; Rheu matoid arthritis M06.9 ; Diastolic dysfunction I51.9 and CKD (chronic kidney disease) stage 3, GFR 30-59 ml/min N18.3 [facility] [address] [place] [address] May, [address] [place] [address] May, [facility] [id number] [place] [address] May, Inflammation, skin L08.9 and Non-intractable vomiting with nausea, unspecified vomiting type R11.2 [facility] [place] [place] [address] [place] [address] May, [facility] [place] [address] [place] [address] Apr, [address] [place] [address] Apr, Acute ethmoidal sinusitis, r ecurrence not specified J01.20 and Bronchitis J40 [facility] [place] [address] [id number] [place] [address] Apr, Sore throat J02.9 and Oral thrush B37.0 [facility] [address] [id number] [place] [address] Apr, Screening for breast cancer Z12.39 [facility] [address] [place] [address] Apr, [address] [place] [address] Apr, Rheumatoid arthritis M06.9 [address] [place] [address] March, [address] [place] [address] March, [facility] [address] [place] [address] March, [address] [place] [address] March, [address] [place] [address] March, Ulcerative colitis K51.90 an d 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 [place] [address] Feb, [address] [place] [address] Feb, [facility] [address] [id number] [place] [address] Jan, [address] [place] [address] Jan, Diastolic dysfunction I51.9 ; Rheumatoid arthritis M06.9 ; Ulcerative colitis K51.90 ; Essential hypertension I10 ; Moderate episode of recurrent major depressive disorder F33.1 and Iron deficiency anemia secondary to inadequate dietary iron intake D50.8 [address] [place] [address] Jan, [address] [place] [address] Jan, Acute bronchitis, unspecifie d organism J20.9 and 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 [facility] [address] [id number] [place] [address] Dec, [address] [address] Dec, [facility] [address] [facility] [place] [id number] [place] [address] Nov, Viral upper respiratory illness J06.9 and Nausea alone R11.0 [facility] [address] [id number] [place] [address] Oct, [facility] [id number] [place] [address] Oct, [facility] [address] [id number] [place] [address] Oct, [facility] [id number] [place] [address] Aug, [facility] [address] [id number] [place] [address] March, [facility] [id number] [place] [address] Feb, [facility] [address] [id number] [place] [address] Feb, [facility] [id number] [place] [address] Jan, [facility] [address] [id number] [place] [address] Jan, [facility] [id number] [place] [address] Oct, [facility] [place] [facility] [address] [id number] [place] [address] Oct, [facility] [address] [id number] [place] [address] Oct, [facility] [address] [id number] [place] [address] Sep, [facility] [place] [facility] [address] [id number] [place] [address] Sep, [facility] [id number] [place] [address] Sep, [facility] [place] [facility] [address] [facility] [id number] [place] [address] Sep, [facility] [place] [facility] [address] [id number] [place] [address] Sep, [facility] [place] [facility] [address] [id number] [place] [address] Aug, [facility] [place] [facility] [address] [id number] [place] [address] Aug, [facility] [place] [facility] [address] [id number] [place] [address] Jul, [facility] [place] [facility] [address] [id number] [place] [address] Jul, [facility] [place] [facility] [address] [id number] [place] [address] Jul, [facility] [place] [facility] [address] [id number] [place] [address] Jul, [facility] [place] [facility] [address] [id number] [place] [address] Jul, [facility] [place] [facility] [address] [id number] [place] [address] Jul, [facility] [place] [facility] [address] [id number] [place] [address] May, [facility] [place] [facility] [address] [id number] [place] [address] May, [facility] [place] [facility] [address] [id number] [place] [address] May, [facility] [place] [facility] [address] [id number] [place] [address] May, 2013 [facility] [place] [facility] [address] [id number] [place] [address] May, 2013 [facility] [place] [facility] [address] [id number] [place] [address] May, [facility] [place] [facility] [address] [id number] [place] [address] Apr, [facility] [place] [facility] [address] [id number] [place] [address] Apr, [facility] [place] [facility] [address] [id number] [place] [address] Apr, [facility] [place] [facility] [address] [id number] [place] [address] Apr, [facility] [place] [facility] [address] [id number] [place] [address] Apr, [facility] [place] [facility] [address] [id number] [place] [address] Apr, [facility] [place] [facility] [address] [id number] [place] [address] Apr, [facility] [place] [facility] [address] [id number] [place] [address] Apr, [facility] [place] [facility] [address] [id number] [place] [address] March, [facility] [place] [facility] [address] [id number] [place] [address] March, [facility] [place] [facility] [address] [id number] [place] [address] March, [facility] [place] [facility] [address] [id number] [place] [address] Feb, [facility] [place] [facility] [address] [id number] [place] [address] Feb, [facility] [place] [facility] [address] [id number] [place] [address] Feb, [facility] [place] [facility] [address] [id number] [place] [address] Feb, [facility] [place] [facility] [address] [id number] [place] [address] Feb, [facility] [place] [facility] [address] [id number] [place] [address] Feb, [facility] [place] [facility] [address] [facility] [id number] [place] [address] Feb, [facility] [place] [facility] [address] [facility] [id number] [place] [address] Feb, [facility] [place] [facility] [address] [id number] [place] [address] Jan, [facility] [place] [facility] [address] [id number] [place] [address] Jan, [facility] [place] [facility] [address] [facility] [id number] [place] [address] Dec, [facility] [place] [facility] [address] [id number] [place] [address] Dec, [facility] [place] [facility] [address] [id number] [place] [address] Dec, [facility] [place] [facility] [address] [id number] [place] [address] Dec, [facility] [place] [facility] [address] [id number] [place] [address] Dec, [facility] [place] [facility] [address] [id number] [place] [address] Nov, [facility] [place] [facility] [address] [id number] [place] [address] Nov, [facility] [place] [facility] [address] [id number] [place] [address] Nov, [facility] [place] [facility] [address] [id number] [place] [address] Nov, [facility] [place] [facility] [address] [id number] [place] [address] Nov, [facility] [place] [facility] [address] [id number] [place] [address] Nov, [facility] [place] [facility] [address] [id number] [place] [address] Oct, [facility] [place] [facility] [address] [id number] [place] [address] Oct, [facility] [place] [facility] [address] [id number] [place] [address] Sep, [facility] [place] [facility] [address] [id number] [place] [address] Sep, [facility] [place] [facility] [address] [id number] [place] [address] Sep, [facility] [place] [facility] [address] [id number] [place] [address] Sep, [facility] [place] [facility] [address] [id number] [place] [address] Sep, [facility] [place] [facility] [address] [id number] [place] [address] Sep, [facility] [place] [facility] [address] [id number] [place] [address] Aug, [facility] [place] [facility] [address] [id number] [place] [address] Aug, [facility] [place] [facility] [address] [id number] [place] [address] May, [facility] [place] [facility] [address] [id number] [place] [address] May, [facility] [place] [facility] [address] [id number] [place] [address] May, [facility] [place] [facility] [address] [id number] [place] [address] May, [facility] [place] [facility] [address] [id number] [place] [address] Apr, [facility] [place] [facility] [address] [id number] [place] [address] Feb, [facility] [place] [facility] [address] [id number] [place] [address] Jan, [facility] [place] [facility] [address] [id number] [place] [address] Nov, [facility] [place] [facility] [address] [id number] [place] [address] 14 Nov, 2012 [facility] [place] [facility] [address] [id number] [place] [address] Nov, [facility] [place] [facility] [address] [id number] [place] [address] Nov, [facility] [place] [facility] [address] [id number] [place] [address] Oct, [facility] [place] [facility] [address] [id number] [place] [address] Oct, [facility] [place] [facility] [address] [id number] [place] [address] Oct, [facility] [place] [facility] [address] [id number] [place] [address] Oct, [facility] [place] [facility] [id number] [place] [address] Oct, [facility] [place] [facility] [address] [id number] [place] [address] Oct, [facility] [place] [facility] [id number] [place] [address] Oct, [facility] [place] [facility] [address] [id number] [place] [address] Oct, [facility] [place] [facility] [address] [id number] [place] [address] 13 Sep, 2012 [facility] [place] [facility] [address] [id number] [place] [address] 13 Sep, 2012 [facility] [place] [facility] [address] [id number] [place] [address] 16 Aug, 2012 [facility] [place] [facility] [address] [id number] [place] [address] 16 Aug, 2012 [facility] [place] [address] [id number] [place] [address] 24 Jul, 2012 [facility] [address] [id number] [place] [address] Jul, [facility] [address] [facility] [id number] [facility] [place] [address] Jun, [facility] [address] [id number] [facility] [place] [address] Jun, [facility] [address] [id number] [facility] [place] [address] Jun, [facility] [address] [id number] [place] [address] Jun, [facility] [address] [id number] [facility] [place] [address] May, [facility] [address] [id number] [place] [address] May, [facility] [address] [id number] [place] [address] May, [facility] [address] [id number] [place] [address] May, [facility] [address] [id number] [place] [address] May, [facility] [address] [id number] [place] [address] May, [facility] [address] [id number] [place] [address] Apr, [facility] [address] [id number] [place] [address] March, [facility] [address] [id number] [place] [address] March, [facility] [address] [id number] [place] [address] Feb, [facility] [address] [id number] [place] [address] Feb, [facility] [address] [id number] [place] [address] Feb, [facility] [address] [id number] [place] [address] Feb, [facility] [address] [id number] [place] [address] Jan, [facility] [id number] [place] [address] Dec, [facility] [id number] [place] [address] Nov, [facility] [id number] [place] [address] Nov, [facility] [id number] [place] [address] Nov, [facility] [id number] [place] [address] Oct, [facility] [id number] [place] [address] Oct, [facility] [id number] [place] [address] Sep, [facility] [id number] [place] [address] Sep, [facility] [id number] [place] [address] Oct, [facility] [id number] [place] [address] Sep, [facility] [id number] [place] [address] Aug, [facility] [id number] [place] [address] Aug, IMMUNIZATIONS No Known Immunizations SOCIAL HISTORY [...]
--- OUTSIDE RECORDS SUMMARY | 2020-05-29 11:13 | XMS REPORT ---
Author Author Nanette Atkins Doctor Organization [facility] Address Unknown Phone Unavailable Care Team Providers Care Brake Adjuster Name Role Phone Migration, Doctor Unavailable Unavailable PROBLEMS Type Condition ICD9-CM Code [id number] Code Onset Dates Condition S tatus SNOMED Code Problem 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, limited to b reakdown of skin L97.511 Active Problem Closed fracture of left distal tibia S82.302A Jan, Active 02669303 Problem Stage 1 skin ulcer of sacral region L98.429 Active Problem Generalized anxiety disorder F41.1 Jun, 201 1 Active 03907686 Problem Rotator cuff tendonitis M75.80 March, Act alyssa 783890756 Problem 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 May, Active 817664514 Problem Hypokalemia E87.6 March, Active 88477 004 Problem Anemia D64.9 Sep, Active 4911722 00 Problem Rheumatoid arthritis M06.9 Sep, Active 15533634 Problem Chronic pain G89.29 Aug, Active 8242 3001 Problem Osteoporosis M81.0 17 Dec, 2011 Active 6485 9006 Problem CKD (chronic kidney disease) stage 3, GFR 30-59 ml/min N18.3 Apr, Active 527787494 Problem Generalized abdominal pain R10.84 Sep, Active 982367340 Problem Ulcerative colitis K51.90 Jul, Active 62866461 Problem SOB (shortness of breath) R06.02 Nov, A ctive 170589656 Problem PVC (premature ventricular contraction) I49.3 Nov, Active 33796066 Problem Diastolic dysfunction I51.9 Jan, Activ e 3966715 Problem Essential hypertension I10 Active 02650261 Problem Moderate episode of recurrent major depressive disorder F33.1 Active 626077145 Problem Iron deficiency anemia secondary to inadequate d ietary iron intake D50.8 Active 236051859 Problem 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 Active 9823940199872 Problem Diarrhea R19.7 Sep, Active 6449364 8 Problem Chronic obstructive pulmonary disease, unspecified COPD ty pe J44.9 Active 36981693 Problem Diverticulitis of both small and large intestine without perforation or abscess without bleeding K57.52 Feb, Active 307 127065 Problem Hyperlipidemia E78.5 26 Aug, 2011 Active 55 403039 Problem 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 0 Active 79546241 ALLERGIES No Information ENCOUNTERS Encounter Location Date Diagnosis [place] [address] [address] Feb, [place] [address] [address] Dec, Skin infection L08.9 and History of pneu monia Z87.01 [address] [place] [address] Dec, [place] [address] [address] Dec, [facility] [address] [address] Dec, [place] [address] [address] Dec, [facility] [address] [facility] [id number] [place] [address] Dec, Allergic reaction, initial e ncounter T78.40XA and Swollen upper lip R22.[address] [place] [address] Dec, [address] [place] [address] Dec, [facility] [address] [facility] [id number] [address] [place] [address] 13 Dec, 2019 Cough R05 [address] [address] [place] [address] 11 Dec, 2019 Iron deficiency anemia christian galarza to inadequate dietary iron intake D50.8 [address] [address] [place] [address] 11 Dec, 2019 Encounter for Medicare annua l wellness exam Z00.00 ; 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, 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 ; Chronic obstructive pulmonary disease, unspecified COPD type J44.9 ; Ulcerative colitis K51.90 ; CKD (chronic kidney disease) stage 3, GFR 30-59 ml/min N18.3 ; Atherosclerosis of red devil coronary artery of red devil heart with angina pectoris I25.119 ; B12 deficiency E53.8 and Rheumatoid arthritis with rheumatoid factor of right hand without organ or systems involvement M05.741 [address] [place] [address] Dec, [address] [place] [address] Nov, [place] [address] [place] [address] Nov, Other specified peripheral v ascular diseases I73.89 ; Hypertensive heart disease with heart failure I11.0 ; 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 ; Rheumatoid arthritis with rheumatoid factor of right hand without organ or systems involvement M05.741 ; 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 ; Anemia, unspecified type D64.9 and Moderate episode of recurrent major depressive disorder F33.1 [address] [place] [address] Nov, [address] [place] [address] Nov, [address] [address] [place] [address] Nov, [address] [place] [address] Nov, [facility] [address] [id number] [address] [place] [address] Oct, Rhinitis, unspecified type J 31.0 and Concussion without loss of consciousness, subsequent encounter S06.0X0D [facility] [address] [place] [address] Oct, [facility] [place] [address] [place] [address] Oct, [facility] [address] [place] [address] Aug, [facility] [address] [place] [address] Aug, [facility] [address] [place] [address] Aug, [facility] [place] [address] [place] [address] Jul, [facility] [address] [facility] [id number] [address] [place] [address] Jul, Right hip pain M25.551 [facility] [address] [place] [address] Jul, [facility] [address] [place] [address] Jul, [facility] [place] [address] [place] [address] Jun, Rheumatoid arthritis M06.9 ; Ulcerative colitis K51.90 and Rectal prolapse K62.3 [facility] [place] [address] [place] [address] Jun, [facility] [address] [place] [address] Jun, [facility] [address] [facility] [id number] [place] [address] Jun, COPD exacerbation J44.[address] [place] [address] Jun, [address] [place] [address] May, [place] [address] [address] [place] [address] May, Diastolic dysfunction I51.[address] [place] [address] May, Rectal prolapse K62.3 ; Rheu matoid arthritis M06.9 ; Diastolic dysfunction I51.9 and CKD (chronic kidney disease) stage 3, GFR 30-59 ml/min N18.[address] [place] [address] May, [address] [place] [address] May, [facility] [address] [facility] [place] [address] May, Inflammation, skin L08.9 and Non-intractable vomiting with nausea, unspecified vomiting type R11.[address] [place] [address] May, [place] [address] [place] [address] Apr, [address] [place] [address] Apr, Acute ethmoidal sinusitis, r ecurrence not specified J01.20 and Bronchitis J40 [facility] [address] [facility] [place] [address] Apr, Sore throat J02.9 and Oral thrush B37.0 [facility] [address] [id number] [place] [address] Apr, Screening for breast cancer Z12.39 [facility] [place] [address] [place] [address] Apr, [facility] [place] [address] [place] [address] Apr, Rheumatoid arthritis M06.9 [facility] [address] [address] [place] [address] March, [facility] [place] [address] [place] [address] March, [facility] [place] [address] [place] [address] March, [address] [place] [address] March, [address] [place] [address] March, Ulcerative colitis K51.90 an d 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 [facility] [place] [address] [place] [address] Feb, [facility] [place] [address] [place] [address] Feb, [facility] [address] [id number] [place] [address] Jan, [facility] K[place]KO [address] [place] [address] Jan, Diastolic dysfunction I51.9 ; Rheumatoid arthritis M06.9 ; Ulcerative colitis K51.90 ; Essential hypertension I10 ; Moderate episode of recurrent major depressive disorder F33.1 and Iron deficiency anemia secondary to inadequate dietary iron intake D50.8 [facility] [place] [address] [place] [address] Jan, [facility] K[place]KO [address] [place] [address] Jan, Acute bronchitis, unspecifie d organism J20.9 and 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 [facility] [address] [id number] [place] [address] Dec, [facility] [place] [address] [facility] [address] [address] Dec, [facility] [place] [address] [facility] [id number] [place] [address] Nov, Viral upper respiratory illness J06.9 and Nausea alone R11.0 [facility] [address] [id number] [place] [address] Oct, [facility] [id number] [place] [address] Oct, [facility] [id number] [place] [address] Oct, [facility] [id number] [place] [address] Aug, [facility] [id number] [place] [address] March, [facility] [id number] [place] [address] Feb, [facility] [id number] [place] [address] Feb, [facility] [id number] [place] [address] Jan, [facility] [id number] [place] [address] Jan, [facility] [id number] [place] [address] Oct, [facility] [id number] [place] [address] Oct, [facility] [id number] [place] [address] Oct, [facility] [id number] [place] [address] Sep, [facility] [address] [facility] [id number] [place] [address] Sep, [facility] [address] [id number] [place] [address] Sep, [facility] [address] [id number] [place] [address] Sep, [facility] [address] [id number] [place] [address] Sep, [facility] [address] [facility] [id number] [place] [address] Aug, [facility] [address] [id number] [place] [address] Aug, [facility] [address] [id number] [place] [address] Jul, [facility] [address] [id number] [place] [address] Jul, 2013 [facility] [address] [id number] [place] [address] Jul, 2013 [facility] [address] [id number] [place] [address] Jul, 2013 [facility] [address] [id number] [place] [address] 08 Jul, 2013 [facility] [address] [id number] [place] [address] 08 Jul, 2013 [facility] [address] [id number] [place] [address] May, 2013 [facility] [address] [id number] [place] [address] May, 2013 [facility] [address] [id number] [place] [address] May, 2013 [facility] [address] [id number] [place] [address] May, 2013 [facility] [address] [id number] [facility] [place] [address] May, [facility] [address] [facility] [id number] [facility] [place] [address] May, [facility] [address] [facility] [id number] [place] [address] Apr, [facility] [address] [id number] [place] [address] Apr, [facility] [address] [id number] [place] [address] Apr, [facility] [address] [facility] [id number] [place] [address] Apr, [facility] [address] [id number] [place] [address] Apr, [facility] [address] [id number] [place] [address] Apr, [facility] [address] [id number] [place] [address] Apr, [facility] [address] [id number] [place] [address] Apr, [facility] [address] [id number] [place] [address] March, [facility] [address] [id number] [place] [address] March, [facility] [address] [id number] [place] [address] March, [facility] [address] [facility] [id number] [place] [address] Feb, [facility] [address] [id number] [place] [address] Feb, [facility] [address] [id number] [place] [address] Feb, [facility] [address] [id number] [place] [address] Feb, [facility] [address] [id number] [place] [address] Feb, [facility] [address] [id number] [place] [address] Feb, [facility] [address] [id number] [place] [address] Feb, [facility] [address] [id number] [place] [address] Feb, [facility] [address] [id number] [place] [address] Jan, [facility] [address] [id number] [place] [address] Jan, [facility] [address] [facility] [id number] [place] [id number] Dec, [facility] [address] [id number] [place] [address] Dec, [facility] [address] [id number] [place] [address] Dec, [facility] [address] [id number] [place] [address] Dec, [facility] [address] [id number] [place] [address] Dec, [facility] [address] [id number] [place] [address] Nov, [facility] [address] [id number] [place] [address] Nov, [facility] [address] [id number] [place] [address] Nov, [facility] [address] [id number] [place] [address] Nov, [facility] [address] [id number] [place] [address] Nov, [facility] [address] [id number] [place] [address] Nov, [facility] [address] [id number] [place] [address] Oct, [facility] [address] [id number] [place] [address] Oct, [facility] [address] [id number] [place] [address] Sep, [facility] [address] [id number] [place] [address] Sep, [facility] [address] [id number] [place] [address] Sep, [facility] [address] [id number] [place] [address] Sep, [facility] [address] [id number] [place] [address] Sep, [facility] [address] [id number] [place] [address] Sep, [facility] [address] [id number] [place] [address] Aug, [facility] [address] [id number] [place] [address] Aug, [facility] [address] [id number] [place] [address] May, [facility] [address] [id number] [place] [address] May, [facility] [address] [id number] [place] [address] May, [facility] [address] [id number] [place] [address] May, [facility] [address] [id number] [place] [address] Apr, [facility] [address] [id number] [place] [address] Feb, [facility] [address] [id number] [place] [address] Jan, [facility] [address] [id number] [place] [address] Nov, [facility] [address] [id number] [place] [address] Nov, [facility] [address] [id number] [place] [address] Nov, [facility] [address] [id number] [place] [address] Nov, [facility] [address] [id number] [place] [address] Oct, [facility] [address] [id number] [place] [address] Oct, [facility] [address] [id number] [place] [address] Oct, [facility] [address] [id number] [place] [address] 28 Oct, 2012 [facility] [address] [id number] [place] [address] Oct, [facility] [address] [id number] [place] [address] 27 Oct, 2012 [facility] [address] [id number] [place] [address] 13 Oct, 2012 [facility] [address] [id number] [place] [address] 13 Oct, 2012 [facility] [address] [id number] [place] [address] 13 Sep, 2012 [facility] [id number] [place] [address] Sep, [facility] [address] [id number] [place] [address] 16 Aug, 2012 [facility] [address] [id number] [place] [address] Aug, [facility] [address] [id number] [place] [address] Jul, [facility] [address] [id number] [place] [address] Jul, [facility] [address] [id number] [place] [address] Jun, [facility] [address] [id number] [place] [address] Jun, [facility] [address] [id number] [place] [address] Jun, [facility] [address] [id number] [place] [address] Jun, [facility] [address] [id number] [place] [address] May, [facility] [address] [id number] [place] [address] May, [facility] [address] [id number] [place] [address] May, [facility] [address] [id number] [place] [address] May, [facility] [address] [id number] [place] [address] May, [facility] [address] [id number] [place] [address] May, [facility] [address] [id number] [place] [address] Apr, [facility] [address] [id number] [place] [address] March, [facility] [address] [id number] [place] [address] March, [facility] [address] [id number] [place] [address] Feb, [facility] [address] [id number] [place] [address] Feb, [facility] [id number] [place] [address] Feb, [facility] [id number] [place] [address] Feb, [facility] [id number] [place] [address] Jan, [facility] [id number] [place] [address] Dec, [facility] [id number] [place] [address] Nov, [facility] [address] [address] Nov, [facility] [address] [address] Nov, [facility] [address] [address] Oct, [facility] [id number] [place] [address] Oct, [facility] [address] [address] Sep, [facility] [address] [address] 15 Sep, 2011 [facility] [address] [address] 14 Oct, 2010 [facility] [id number] [place] [address] 30 Sep, 2010 [facility] [address] [address] Aug, [facility] [address] [address] 13 Aug, 2010 IMMUNIZATIONS No Known Immunizations SOCIAL HISTORY Never [...] History cholecystectomy Surgical History heart cath - Mercstanislaw Jimenez Bob 03/2018 Surgical History hysterectomy Surgical History hernia repair Surgical History tonsillectomy Surgical History Left shoulder joint repair 09/2018 Surgical History Removal of pre cancerous spots on arm /c hest/ nose Hospitalization History Multiple Hospital Stays Hospitalization History ER Visit Lisa 05/05/2019
--- OUTSIDE RECORDS SUMMARY | 2020-05-29 11:13 | XMS REPORT ---
Author Author Nanette Atkins Doctor Organization [facility] Address Unknown Phone Unavailable Care Team Providers Care Panel Edge Painter Name Role Phone Migration, Doctor Unavailable Unavailable PROBLEMS Type Condition ICD9-CM Code [id number] Code Onset Dates Condition S tatus SNOMED Code Problem Stage 1 skin ulcer of sacral region L98.429 Active Problem Rotator cuff tendonitis M75.80 March, Act alyssa [id number] Problem Closed fracture of left distal tibia S82.302A Jan, Active 92439757 Problem Hypokalemia E87.6 March, Active 52345 004 Problem Generalized anxiety disorder F41.1 Jun, 201 1 Active 03865136 Problem Diverticulitis of both small and large intestine without perforation or abscess without bleeding K57.52 Feb, Active 307 061457 Problem 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 May, Active 121704047 Problem Essential hypertension I10 Active 30115388 Problem Anemia D64.9 Sep, Active 0035506 00 Problem 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, limited to b reakdown of skin L97.511 Active Problem Generalized abdominal pain R10.84 Sep, Active 396048835 Problem Chronic pain G89.29 Aug, Active 8242 3001 Problem SOB (shortness of breath) R06.02 Nov, A ctive 851014871 Problem CKD (chronic kidney disease) stage 3, GFR 30-59 ml/min N18.3 Apr, Active 440739186 Problem Diastolic dysfunction I51.9 Jan, Activ e 2251314 Problem Ulcerative colitis K51.90 Jul, Active 56200228 Problem Rheumatoid arthritis M06.9 Sep, Active 79480831 Problem PVC (premature ventricular contraction) I49.3 Nov, Active 68676624 Problem Moderate episode of recurrent major depressive disorder F33.1 Active 361561604 Problem Iron deficiency anemia secondary to inadequate d ietary iron intake D50.8 Active 320637195 Problem 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 Active [id number] ALLERGIES No Information ENCOUNTERS Encounter Location Date Diagnosis [address] [place] [address] Feb, [address] [address] 17 Jan, 2020 [place] [address] [address] Jan, Arthralgia of left temporomandibular kate nt M26.622 [address] [address] Jan, [address] [address] 12 Jan, 2020 Ulcerative colitis K51.90 ; CKD (chronic kidney disease) stage 3, GFR 30-59 ml/min N18.3 ; Essential hypertension I10 ; Rheumatoid arthritis with rheumatoid factor of right hand without organ or systems involvement M05.741 and Intrinsic eczema L20.84 [place] [address] [address] [address] Jan, [place] [address] [address] Jan, [place] [address] [address] 09 Jan, 2020 [facility] [place] [address] [id number] [place] [address] 09 Jan, 2020 [facility] [place] [id number] [place] [address] 05 Jan, [address] [place] [address] Jan, [address] [place] [address] Jan, [address] [place] [address] 04 Jan, 2020 [facility] [address] [id number] [place] [address] Jan, [facility] [place] [address] [id number] [place] [address] 26 Dec, 2019 Skin infection L08.9 and History of pneu monia Z87.[address] [place] [address] Dec, [facility] [place] [id number] [place] [address] Dec, [facility] [place] [id number] [place] [address] Dec, [facility] [place] [id number] [place] [address] Dec, [facility] [id number] [place] [address] Dec, Allergic reaction, initial e ncounter T78.40XA and Swollen upper lip R22.0 [address] [place] [address] Dec, [address] [place] [address] 18 Dec, 2019 [facility] [address] [facility] [id number] [address] [place] [address] 13 Dec, 2019 Cough R05 [address] [place] [address] 11 Dec, 2019 Iron deficiency anemia christian galarza to inadequate dietary iron intake D50.[address] [place] [address] 11 Dec, 2019 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 ; Anemia, unspecified type D64.9 and Moderate episode of recurrent major depressive disorder F33.[address] [place] [address] Nov, [address] [place] [address] Nov, [address] [place] [address] Nov, [address] [place] [address] Nov, [facility] [address] [id number] [address] [place] [address] Oct, Rhinitis, unspecified type J 31.0 and Concussion without loss of consciousness, subsequent encounter S06.0X0D [facility] [place] [address] [place] [address] Oct, [facility] [place] [address] [place] [address] Oct, [facility] [place] [address] [place] [address] Aug, [facility] [place] [address] [place] [address] Aug, [facility] [place] [address] [place] [address] Aug, [facility] [place] [place] [address] [place] [address] Jul, [facility] [address] [facility] [id number] [address] [place] [address] Jul, Right hip pain M25.551 [facility] [place] [address] [place] [address] Jul, [facility] [place] [address] [place] [address] Jul, [facility] [place] [address] [place] [address] Jun, Rheumatoid arthritis M06.9 ; Ulcerative colitis K51.90 and Rectal prolapse K62.3 [facility] [place] [address] [place] [address] Jun, [facility] [place] [address] [place] [address] Jun, [facility] [place] [address] [facility] [id number] [place] [address] Jun, COPD exacerbation J44.1 [facility] [address] [place] [address] Jun, [address] [place] [address] May, [address] [place] [address] May, Diastolic dysfunction I51.9 [address] [place] [address] May, Rectal prolapse K62.3 ; Rheu matoid arthritis M06.9 ; Diastolic dysfunction I51.9 and CKD (chronic kidney disease) stage 3, GFR 30-59 ml/min N18.3 [address] [place] [address] May, [address] [place] [address] May, [facility] [address] [id number] [address] May, Inflammation, skin L08.9 and Non-intractable vomiting with nausea, unspecified vomiting type R11.2 [facility] [address] [place] [address] May, [address] [place] [address] Apr, [address] [place] [address] Apr, Acute ethmoidal sinusitis, r ecurrence not specified J01.20 and Bronchitis J40 [facility] [address] [id number] [place] [address] Apr, Sore throat J02.9 and Oral thrush B37.0 [facility] [place] [address] [id number] [place] [address] Apr, Screening for breast cancer Z12.[address] [place] [address] Apr, [facility] [place] [address] [place] [address] Apr, Rheumatoid arthritis M06.9 [facility] [address] [place] [address] March, [facility] [place] [address] [place] [address] March, [facility] [place] [address] [place] [address] March, [facility] [place] [address] [place] [address] March, [address] [place] [address] March, Ulcerative colitis K51.90 an d 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 [facility] [place] [address] [place] [address] Feb, [facility] [place] [address] [place] [address] Feb, [place] [id number] [place] [address] Jan, [facility] [place] [address] [place] [address] Jan, Diastolic dysfunction I51.9 ; Rheumatoid arthritis M06.9 ; Ulcerative colitis K51.90 ; Essential hypertension I10 ; Moderate episode of recurrent major depressive disorder F33.1 and Iron deficiency anemia secondary to inadequate dietary iron intake D50.8 [facility] [place] [address] [place] [address] Jan, [address] [place] [address] Jan, Acute bronchitis, unspecifie d organism J20.9 and 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 [address] [id number] [place] [address] Oct, [facility] [place] [id number] [place] [address] Oct, [facility] [place] [address] [id number] [place] [address] Aug, [facility] [place] [id number] [place] [address] March, [facility] [place] [address] [id number] [place] [address] Feb, [facility] [place] [id number] [place] [address] Feb, [facility] [place] [address] [id number] [place] [address] Jan, [facility] [place] [id number] [place] [address] Jan, [facility] [address] [id number] [place] [address] Oct, [facility] [address] [id number] [place] [address] Oct, [facility] [address] [id number] [place] [address] Oct, [facility] [address] [id number] [place] [address] Sep, [facility] [id number] [place] [address] Sep, [facility] [address] [facility] [id number] [place] [address] Sep, [facility] [address] [id number] [place] [address] Sep, [facility] [address] [id number] [place] [address] Sep, [facility] [address] [id number] [place] [address] Aug, [facility] [address] [id number] [place] [address] Aug, [facility] [address] [id number] [place] [address] Jul, [facility] [address] [id number] [place] [address] Jul, [facility] [address] [id number] [place] [address] Jul, [facility] [address] [id number] [place] [address] Jul, [facility] [address] [id number] [place] [address] Jul, [facility] [address] [id number] [place] [address] Jul, 2013 [facility] [address] [id number] [place] [address] May, [facility] [address] [id number] [place] [address] May, [facility] [address] [id number] [place] [address] May, [facility] [address] [id number] [place] [address] May, 2013 [facility] [address] [id number] [place] [address] May, [facility] [address] [facility] [id number] [place] [address] May, [facility] [address] [id number] [place] [address] Apr, [facility] [address] [id number] [place] [address] Apr, [facility] [address] [id number] [place] [address] Apr, [facility] [address] [id number] [place] [address] Apr, [facility] [address] [id number] [place] [address] Apr, [facility] [address] [id number] [place] [address] Apr, [facility] [address] [id number] [place] [address] Apr, [facility] [address] [id number] [place] [address] Apr, [facility] [address] [id number] [place] [address] March, [facility] [address] [id number] [place] [address] March, [facility] [address] [id number] [place] [address] March, [facility] [address] [id number] [place] [address] Feb, [facility] [address] [id number] [place] [address] Feb, [facility] [address] [id number] [place] [address] Feb, [facility] [address] [id number] [place] [address] Feb, [facility] [address] [id number] [place] [address] Feb, [facility] [address] [facility] [id number] [place] [address] Feb, [facility] [address] [id number] [place] [address] Feb, [facility] [address] [id number] [place] [address] Feb, [facility] [address] [id number] [place] [address] Jan, [facility] [address] [facility] [id number] [place] [address] Jan, [facility] [address] [facility] [id number] [place] [id number] Dec, [facility] [address] [id number] [place] [address] Dec, [facility] [address] [id number] [place] [address] Dec, [facility] [address] [id number] [place] [address] Dec, [facility] [address] [id number] [place] [address] Dec, [facility] [address] [id number] [place] [address] Nov, [facility] [address] [id number] [place] [address] Nov, [facility] [address] [id number] [place] [address] Nov, [facility] [address] [id number] [place] [address] Nov, [facility] [address] [id number] [place] [address] Nov, [facility] [address] [id number] [place] [address] Nov, [facility] [address] [id number] [place] [address] Oct, [facility] [address] [id number] [place] [address] Oct, [facility] [address] [id number] [place] [address] Sep, [facility] [address] [id number] [place] [address] Sep, [facility] [address] [id number] [place] [address] Sep, [facility] [address] [id number] [place] [address] Sep, [facility] [address] [id number] [place] [address] Sep, [facility] [address] [id number] [place] [address] Sep, [facility] [address] [id number] [place] [address] Aug, [facility] [address] [id number] [place] [address] Aug, [facility] [address] [id number] [place] [address] May, [facility] [address] [id number] [place] [address] May, [facility] [address] [id number] [place] [address] May, [facility] [address] [id number] [place] [address] May, [facility] [address] [id number] [place] [address] Apr, [facility] [address] [id number] [place] [address] Feb, [facility] [address] [id number] [place] [address] Jan, [facility] [address] [id number] [place] [address] 24 Nov, 2012 [facility] [address] [id number] [place] [address] Nov, [facility] [address] [id number] [place] [address] Nov, [facility] [address] [id number] [place] [address] Nov, [facility] [address] [id number] [place] [address] Oct, [facility] [address] [id number] [place] [address] Oct, [facility] [address] [id number] [place] [address] Oct, [facility] [id number] [place] [address] Oct, [facility] [address] [id number] [place] [address] Oct, [facility] [address] [id number] [place] [address] 27 Oct, 2012 [facility] [address] [id number] [place] [address] Oct, [facility] [address] [id number] [place] [address] Oct, [facility] [address] [id number] [place] [address] Sep, [facility] [address] [id number] [place] [address] Sep, [facility] [address] [id number] [place] [address] 16 Aug, 2012 [facility] [address] [id number] [place] [id number] 16 Aug, 2012 [facility] [address] [id number] [place] [id number] Jul, [facility] [id number] [facility] [address] Jul, [facility] [address] [id number] [facility] [id number] Jun, [facility] [address] [id number] [facility] [address] Jun, [facility] [address] [id number] [facility] [address] Jun, [facility] [address] [id number] [place] [address] Jun, [facility] [address] [id number] [place] [id number] May, [facility] [address] [id number] [place] [id number] May, [facility] [address] [id number] [place] [id number] May, [facility] [address] [id number] [place] [id number] May, [facility] [address] [id number] [place] [id number] May, [facility] [address] [id number] [place] [id number] May, [facility] [address] [id number] [place] [id number] Apr, [facility] [address] [id number] [place] [address] March, [facility] [address] [id number] [place] [id number] March, [facility] [address] [id number] [place] [id number] Feb, [facility] [address] [id number] [place] [id number] Feb, [facility] [address] [id number] [place] [address] 17 Feb, 2012 [facility] [place] [id number] [place] [address] Feb, [facility] [place] [id number] [place] [address] Jan, [facility] [place] [id number] [place] [address] Dec, [facility] [place] [id number] [place] [address] Nov, [facility] [place] [id number] [place] [address] Nov, [facility] [place] [id number] [place] [address] Nov, [facility] [place] [id number] [place] [address] Oct, [facility] [place] [id number] [place] [address] Oct, [facility] [place] [id number] [place] [address] Sep, [facility] [place] [id number] [place] [address] Sep, [facility] [place] [id number] [place] [address] 14 Oct, 2010 [facility] [place] [address] [id number] [place] [address] 30 Sep, 2010 [facility] [place] [id number] [place] [address] Aug, [facility] [place] [id number] [place] [address] Aug, IMMUNIZATIONS No Known Immunizations SOCIAL HISTORY Never Assessed REASON FOR VISIT PLAN OF CARE VITAL SIGNS Height 64 in 2013-11-19 Weight 151.12 lbs 2013-11-19 Temperature 97.9 degrees Fahrenheit 2013-11-19 Heart Rate 100 bpm 2013-11-19 Respiratory Rate 22 2013-11-19 Blood pressure systolic 146 mmHg 2013-11-19 Blood pressure diastolic 108 mmHg 2013-11-19 MEDICATIONS Unknown Medications RESULTS No Results PROCEDURES [...]
--- OUTSIDE RECORDS SUMMARY | 2020-05-29 11:13 | XMS REPORT ---
Author Author Nanette Atkins Doctor Organization [facility] Address Unknown Phone Unavailable Care Team Providers Care Take Down Sorter Name Role Phone Migration, Doctor Unavailable Unavailable PROBLEMS Type Condition ICD9-CM Code [id number] Code Onset Dates Condition S tatus SNOMED Code Problem 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, limited to b reakdown of skin L97.511 Active Problem Closed fracture of left distal tibia S82.302A Jan, Active 96952501 Problem Stage 1 skin ulcer of sacral region L98.429 Active Problem Generalized anxiety disorder F41.1 Jun, 201 1 Active 33345456 Problem Rotator cuff tendonitis M75.80 March, Act alyssa 224052661 Problem 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 May, Active 735176135 Problem Hypokalemia E87.6 March, Active 94955 004 Problem Anemia D64.9 Sep, Active 8722650 00 Problem Rheumatoid arthritis M06.9 Sep, Active 83413129 Problem Chronic pain G89.29 Aug, Active 8242 3001 Problem Osteoporosis M81.0 17 Dec, 2011 Active 6485 9006 Problem CKD (chronic kidney disease) stage 3, GFR 30-59 ml/min N18.3 Apr, Active 119352594 Problem Generalized abdominal pain R10.84 Sep, Active 344211482 Problem Ulcerative colitis K51.90 Jul, Active 77333168 Problem SOB (shortness of breath) R06.02 Nov, A ctive 545503866 Problem PVC (premature ventricular contraction) I49.3 Nov, Active 60047415 Problem Diastolic dysfunction I51.9 Jan, Activ e 8935372 Problem Essential hypertension I10 Active 84149961 Problem Moderate episode of recurrent major depressive disorder F33.1 Active 125365057 Problem Iron deficiency anemia secondary to inadequate d ietary iron intake D50.8 Active 060332183 Problem 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 Active 6893347229972 Problem Diarrhea R19.7 Sep, Active 3679174 8 Problem Chronic obstructive pulmonary disease, unspecified COPD ty pe J44.9 Active 63061779 Problem Diverticulitis of both small and large intestine without perforation or abscess without bleeding K57.52 Feb, Active 307 407608 Problem Hyperlipidemia E78.5 Aug, Active 55 936695 Problem 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 0 Active 45057372 ALLERGIES No Information ENCOUNTERS Encounter Location Date Diagnosis [address] [place] [address] Feb, [facility] [address] [address] Jan, [facility] [address] [address] Jan, [facility] [address] [address] Jan, [facility] [address] [address] Jan, [address] [place] [address] Jan, [address] [place] [address] Jan, [address] [place] [address] Jan, [facility] [address] [id number] [place] [address] Jan, [facility] [id number] [place] [address] Dec, Skin infection L08.9 and History of pneu monia Z87.01 [address] [place] [address] 25 Dec, 2019 [facility] [address] [id number] [place] [address] Dec, [facility] [address] [id number] [place] [address] Dec, [facility] [address] [id number] [place] [address] 20 Dec, 2019 [facility] [address] [facility] [id number] [address] [place] [address] 19 Dec, 2019 Allergic reaction, initial e ncounter T78.40XA and Swollen upper lip R22.0 [address] [place] [address] Dec, [address] [place] [address] 18 Dec, 2019 [facility] [address] [facility] [id number] [address] [place] [address] 13 Dec, 2019 Cough R05 [address] [place] [address] 11 Dec, 2019 Iron deficiency anemia secon michell to inadequate dietary iron intake D50.8 [address] [place] [address] 11 Dec, 2019 [facility] Z00.00 ; 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, 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 ; Chronic obstructive pulmonary disease, unspecified COPD type J44.9 ; Ulcerative colitis K51.90 ; CKD (chronic kidney disease) stage 3, GFR 30-59 ml/min N18.3 ; 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 ; B12 deficiency E53.8 and Rheumatoid arthritis with rheumatoid factor of right hand without organ or systems involvement M05.741 [address] [place] [address] 03 Dec, [address] [place] [address] Nov, [facility] K[facility]KO [address] [place] [address] Nov, Other specified peripheral v ascular diseases I73.89 ; Hypertensive heart disease with heart failure I11.0 ; 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 ; Rheumatoid arthritis with rheumatoid factor of right hand without organ or systems involvement M05.741 ; 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 ; Anemia, unspecified type D64.9 and Moderate episode of recurrent major depressive disorder F33.1 [facility] [address] [place] [address] Nov, [facility] [place] [address] [place] [address] Nov, [facility] [address] [place] [address] Nov, [facility] [address] [place] [address] Nov, [facility] [address] [facility] [id number] [address] [place] [address] Oct, Rhinitis, unspecified type J 31.0 and Concussion without loss of consciousness, subsequent encounter S06.0X0D [facility] K[facility] [address] [place] [address] Oct, [facility] [address] [place] [address] Oct, [facility] K[facility]KO [address] [place] [address] Aug, [facility] [address] [place] [address] Aug, [facility] [address] [place] [address] Aug, [facility] [address] [place] [address] Jul, [facility] [address] [facility] [id number] [address] [place] [address] Jul, Right hip pain M25.551 [facility] [address] [place] [address] Jul, [facility] KIKO [place] [address] [place] [address] Jul, [facility] [address] [place] [address] Jun, Rheumatoid arthritis M06.9 ; Ulcerative colitis K51.90 and Rectal prolapse K62.3 [facility] [address] [place] [address] Jun, [facility] [address] [place] [address] Jun, [facility] [address] [facility] [id number] [place] [address] Jun, COPD exacerbation J44.1 [facility] [address] [place] [address] Jun, [facility] [address] [place] [address] May, [facility] [address] [place] [address] May, Diastolic dysfunction I51.9 [facility] KIKO [address] [place] [address] May, Rectal prolapse K62.3 ; Rheu matoid arthritis M06.9 ; Diastolic dysfunction I51.9 and CKD (chronic kidney disease) stage 3, GFR 30-59 ml/min N18.3 [facility] [address] [place] [address] May, [facility] KIKO [address] [place] [address] May, [facility] [address] [id number] [place] [address] May, Inflammation, skin L08.9 and Non-intractable vomiting with nausea, unspecified vomiting type R11.2 [facility] KIKO [address] [place] [address] May, [facility] KIKO [address] [place] [address] Apr, [address] [place] [address] Apr, Acute ethmoidal sinusitis, r ecurrence not specified J01.20 and Bronchitis J40 [facility] [address] [id number] [place] [address] Apr, Sore throat J02.9 and Oral thrush B37.0 [facility] [address] [id number] [place] [address] Apr, Screening for breast cancer Z12.[address] [place] [address] Apr, [address] [place] [address] Apr, Rheumatoid arthritis M06.[address] [place] [address] March, [address] [place] [address] March, [address] [place] [address] March, [address] [place] [address] March, [address] [place] [address] March, Ulcerative colitis K51.90 an d 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 [facility] KIKO [address] [place] [address] Feb, [address] [place] [address] Feb, [facility] [address] [id number] [place] [address] Jan, [facility] [address] [place] [address] Jan, Diastolic dysfunction I51.9 ; Rheumatoid arthritis M06.9 ; Ulcerative colitis K51.90 ; Essential hypertension I10 ; Moderate episode of recurrent major depressive disorder F33.1 and Iron deficiency anemia secondary to inadequate dietary iron intake D50.8 [facility] [address] [place] [address] Jan, [facility] [address] [place] [address] Jan, Acute bronchitis, unspecifie d organism J20.9 and 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 [facility] [address] [id number] [place] [address] Dec, [address] [place] [address] Dec, [facility] [address] [id number] [place] [address] Nov, Viral upper respiratory illness J06.9 and Nausea alone R11.0 [facility] [address] [id number] [place] [address] Oct, [facility] [id number] [place] [address] Oct, [facility] [id number] [place] [address] Oct, [facility] [id number] [place] [address] Aug, [facility] [id number] [place] [address] March, [facility] [address] [id number] [place] [address] Feb, [facility] [address] [id number] [place] [address] Feb, [facility] [address] [id number] [place] [address] Jan, [facility] [address] [id number] [place] [address] Jan, [facility] [address] [id number] [place] [address] Oct, [facility] [address] [id number] [place] [address] Oct, [facility] [address] [id number] [place] [address] Oct, [facility] [address] [id number] [place] [address] Sep, [facility] [address] [id number] [place] [address] Sep, [facility] [address] [id number] [place] [address] Sep, [facility] [address] [id number] [place] [address] Sep, [facility] [address] [id number] [place] [address] Sep, [facility] [address] [id number] [place] [address] Aug, [facility] [address] [id number] [place] [address] Aug, [facility] [address] [id number] [place] [address] Jul, [facility] [address] [id number] [place] [address] Jul, [facility] [address] [id number] [place] [address] 10 Jul, 2013 [facility] [address] [id number] [place] [address] 10 Jul, 2013 [facility] [address] [facility] [id number] [place] [address] 08 Jul, 2013 [facility] [address] [id number] [place] [address] 08 Jul, 2013 [facility] [address] [id number] [place] [address] May, 2013 [facility] [address] [facility] [id number] [place] [address] May, 2013 [facility] [address] [id number] [place] [address] May, [facility] [address] [id number] [place] [address] May, [facility] [address] [id number] [place] [address] May, [facility] [address] [id number] [place] [address] May, [facility] [address] [id number] [place] [address] Apr, [facility] [address] [id number] [place] [address] Apr, [facility] [address] [id number] [place] [address] Apr, [facility] [address] [id number] [place] [address] Apr, [facility] [address] [id number] [place] [address] Apr, [facility] [address] [id number] [place] [address] Apr, [facility] [address] [id number] [place] [address] Apr, [facility] [address] [facility] [id number] [place] [address] Apr, [facility] [address] [id number] [place] [address] March, [facility] [address] [id number] [place] [address] March, [facility] [address] [id number] [place] [address] March, [facility] [address] [id number] [place] [address] Feb, [facility] [address] [id number] [place] [address] Feb, [facility] [address] [id number] [place] [address] Feb, [facility] [address] [id number] [place] [address] Feb, [facility] [address] [id number] [place] [address] Feb, [facility] [address] [id number] [place] [address] Feb, [facility] [address] [id number] [place] [address] Feb, [facility] [address] [id number] [place] [address] Feb, [facility] [address] [id number] [place] [address] Jan, [facility] [address] [facility] [id number] [place] [address] Jan, [facility] [address] [facility] [id number] [place] [id number] Dec, [facility] [address] [id number] [place] [address] Dec, [facility] [address] [id number] [place] [address] Dec, [facility] [address] [id number] [place] [address] Dec, [facility] [address] [id number] [place] [address] Dec, [facility] [address] [id number] [place] [address] Nov, [facility] [address] [id number] [place] [address] Nov, [facility] [address] [id number] [place] [address] Nov, [facility] [address] [id number] [place] [address] Nov, [facility] [address] [id number] [place] [address] Nov, [facility] [address] [id number] [place] [address] Nov, [facility] [address] [id number] [place] [address] Oct, [facility] [address] [id number] [place] [address] Oct, [facility] [address] [id number] [place] [address] Sep, [facility] [address] [id number] [place] [address] Sep, [facility] [address] [id number] [place] [address] Sep, [facility] [address] [id number] [place] [address] Sep, [facility] [address] [id number] [place] [address] Sep, [facility] [address] [id number] [place] [address] Sep, [facility] [address] [id number] [place] [address] 14 Aug, 2013 [facility] [address] [id number] [place] [address] 14 Aug, 2013 [facility] [address] [id number] [place] [address] May, [facility] [address] [id number] [place] [address] 30 May, 2013 [facility] [address] [id number] [place] [address] 15 May, 2013 [facility] [address] [id number] [place] [address] May, [facility] [address] [id number] [place] [address] Apr, [facility] [address] [id number] [place] [address] Feb, [facility] [address] [id number] [place] [address] Jan, [facility] [address] [id number] [place] [address] Nov, [facility] [address] [id number] [place] [address] Nov, [facility] [address] [id number] [place] [address] Nov, [facility] [address] [id number] [place] [address] Nov, [facility] [address] [id number] [place] [address] Oct, [facility] [id number] [place] [address] Oct, [facility] [address] [id number] [place] [address] Oct, [facility] [address] [id number] [place] [address] Oct, [facility] [address] [id number] [place] [address] Oct, [facility] [address] [id number] [place] [address] Oct, [facility] [address] [id number] [place] [address] Oct, [facility] [address] [id number] [place] [address] Oct, [facility] [address] [id number] [place] [address] Sep, [facility] [address] [id number] [place] [address] Sep, [facility] [address] [id number] [place] [address] Aug, [facility] [address] [id number] [place] [address] Aug, [facility] [address] [id number] [place] [address] Jul, [facility] [address] [id number] [place] [address] Jul, [facility] [address] [id number] [place] [address] Jun, [facility] [address] [id number] [place] [address] Jun, [facility] [address] [id number] [place] [address] Jun, [facility] [address] [id number] [place] [address] Jun, [facility] [address] [id number] [place] [address] May, [facility] [address] [id number] [place] [address] May, [facility] [address] [id number] [place] [address] May, [facility] [address] [id number] [place] [address] May, [facility] [address] [id number] [place] [address] May, [facility] [address] [id number] [place] [address] May, [facility] [address] [id number] [place] [address] Apr, [facility] [address] [id number] [place] [address] March, [facility] [address] [id number] [place] [address] March, [facility] [address] [id number] [place] [address] Feb, [facility] [address] [id number] [place] [address] Feb, [facility] [address] [id number] [place] [address] Feb, [facility] [address] [id number] [place] [address] Feb, [facility] [address] [id number] [place] [address] Jan, [facility] [address] [id number] [place] [address] Dec, [facility] [address] [id number] [place] [address] Nov, [facility] [address] [facility] [id number] [place] [address] Nov, [facility] [address] [id number] [place] [address] Nov, [facility] [address] [id number] [place] [address] Oct, [facility] [id number] [place] [address] 19 Oct, 2011 [facility] [id number] [place] [address] 15 Sep, 2011 [facility] [id number] [place] [address] 15 Sep, 2011 [facility] [id number] [place] [address] 14 Oct, 2010 [facility] [id number] [place] [address] 30 Sep, 2010 [facility] [id number] [place] [address] Aug, [facility] [id number] [place] [address] Aug, IMMUNIZATIONS No Known Immunizations SOCIAL HISTORY [...] cholecystectomy Surgical History heart cath - [facility] 03/2018 Surgical History hysterectomy Surgical History hernia repair Surgical History tonsillectomy Surgical History Left shoulder joint repair 09/2018 Surgical History Removal of pre cancerous spots on arm /c hest/ nose Hospitalization History Multiple Hospital Stays Hospitalization History ER Visit Lisa 05/05/2019
--- OUTSIDE RECORDS SUMMARY | 2020-05-29 11:13 | XMS REPORT ---
Author Author Nanette Atkins Doctor Organization [facility] Address Unknown Phone Unavailable Care Team Providers Care Attorney General Name Role Phone Migration, Doctor Unavailable Unavailable PROBLEMS Type Condition ICD9-CM Code [id number] Code Onset Dates Condition S tatus SNOMED Code Problem Stage 1 skin ulcer of sacral region L98.429 Active Problem Rotator cuff tendonitis M75.80 March, Act alyssa 918985475 Problem Closed fracture of left distal tibia S82.302A Jan, Active 88172661 Problem Hypokalemia E87.6 March, Active 10275 004 Problem Generalized anxiety disorder F41.1 Jun, 201 1 Active 96420658 Problem Diverticulitis of both small and large intestine without perforation or abscess without bleeding K57.52 Feb, Active 307 106554 Problem 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 May, Active 387456208 Problem Essential hypertension I10 Active 15524440 Problem Anemia D64.9 Sep, Active 1009010 00 Problem 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, limited to b reakdown of skin L97.511 Active Problem Generalized abdominal pain R10.84 Sep, Active 676953607 Problem Chronic pain G89.29 Aug, Active 8242 3001 Problem SOB (shortness of breath) R06.02 Nov, A ctive 699738440 Problem CKD (chronic kidney disease) stage 3, GFR 30-59 ml/min N18.3 Apr, Active 531912574 Problem Diastolic dysfunction I51.9 Jan, Activ e 4574768 Problem Ulcerative colitis K51.90 Jul, Active 05272386 Problem Rheumatoid arthritis M06.9 Sep, Active 30276751 Problem PVC (premature ventricular contraction) I49.3 Nov, Active 48248530 Problem Moderate episode of recurrent major depressive disorder F33.1 Active 735654270 Problem Iron deficiency anemia secondary to inadequate d ietary iron intake D50.8 Active 564105657 Problem 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 Active [id number] ALLERGIES No Information ENCOUNTERS Encounter Location Date Diagnosis [address] [id number] [address] Feb, [address] [id number], [place] [address] Jan, Nausea alone R11.[address] [id number], [place] [address] 17 Jan, 2020 [facility] [address] [facility] [id number] [address] [place] [address] Jan, Arthralgia of left temporoma ndibular joint M26.[address] [id number], [place] [address] Jan, [address] [id number], [place] [address] Jan, Ulcerative colitis K51.90 ; CKD (chronic kidney disease) stage 3, GFR 30-59 ml/min N18.3 ; Essential hypertension I10 ; Rheumatoid arthritis with rheumatoid factor of right hand without organ or systems involvement M05.741 ; Intrinsic eczema L20.84 and Rectal prolapse K62.3 [facility] [address] [facility] [id number] [place] [address] Jan, [facility] [address] [facility] [id number] [address] [place] [address] 10 Jan, 2020 [facility] [address] [facility] [id number] [address] [place] [address] 09 Jan, 2020 [facility] [address] [facility] [id number] [address] [place] [address] Jan, [facility] [address] [facility] [id number] [address] [place] [address] 05 Jan, [address] [id number], [place] [address] Jan, [address] [id number], [place] [address] Jan, [address] [id number], [place] [address] Jan, [facility] [place] [address] [facility] [id number] [place] [address] Jan, [facility] [address] [facility] [id number] [address] [place] [address] Dec, Skin infection L08.9 and His tory of pneumonia Z87.[address] [id number], [place] [address] Dec, [facility] [address] [facility] [id number] [address] [place] [address] Dec, [facility] [address] [facility] [id number] [address] [place] [address] Dec, [facility] [address] [facility] [id number] [address] [place] [address] Dec, [facility] [address] [facility] [id number] [address] [place] [address] Dec, Allergic reaction, initial e ncounter T78.40XA and Swollen upper lip R22.[address] [id number], [place] [address] Dec, [address] [id number] [place] [address] [address] Dec, [address] [facility] [address] [facility] [id number] [place] [address] 13 Dec, 2019 Cough R05 [address] [id number] [place] [address] 11 Dec, 2019 Iron deficiency anemia secon michell to inadequate dietary iron intake D50.[address] [id number], [place] [address] 11 Dec, 2019 Encounter for Medicare annua l wellness exam Z00.00 ; 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, 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 ; Chronic obstructive pulmonary disease, unspecified COPD type J44.9 ; Ulcerative colitis K51.90 ; CKD (chronic kidney disease) stage 3, GFR 30-59 ml/min N18.3 ; 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 ; B12 deficiency E53.8 and Rheumatoid arthritis with rheumatoid factor of right hand without organ or systems involvement M05.[address] 340 [id number], [place] [address] 03 Dec, [address] [id number], [place] [address] Nov, [address] 340[address] [id number], [place] [address] 14 Nov, 2019 Other specified peripheral v ascular diseases I73.89 ; Hypertensive heart disease with heart failure I11.0 ; 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 ; Rheumatoid arthritis with rheumatoid factor of right hand without organ or systems involvement M05.741 ; 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 ; Anemia, unspecified type D64.9 and Moderate episode of recurrent major depressive disorder F33.[address] 340[address] [id number], [place] [address] Nov, [address] [id number] [place] [address] Nov, [facility] [place] [address] [id number] [place] [address] Nov, [facility] [place] [place] [address] [id number] [place] [address] Nov, [facility] [address] [facility] [id number] [place] [address] Oct, Rhinitis, unspecified type J 31.0 and Concussion without loss of consciousness, subsequent encounter S06.0X0D [facility] [place] [address] [id number] [place] [address] Oct, [facility] [place] [address] [id number] [place] [address] Oct, [facility] [place] [address] [id number] [place] [address] Aug, [facility] [place] [address] [id number] [place] [address] Aug, [facility] [place] [address] [id number] [place] [address] Aug, [facility] [place] [address] [id number] [place] [address] Jul, [facility] [address] [facility] [id number] [address] [address] Jul, Right hip pain M25.551 [facility] [place] [address] [id number] [place] [address] Jul, [facility] [place] [address] [id number], [place] [address] Jul, [facility] [place] [address] [id number] [place] [address] Jun, Rheumatoid arthritis M06.9 ; Ulcerative colitis K51.90 and Rectal prolapse K62.3 [facility] [place] [address] [id number] [place] [address] Jun, [facility] [place] [address] [id number] [place] [address] Jun, [facility] [address] [id number] [address] [address] Jun, COPD exacerbation J44.1 [facility] [place] [address] [id number] [place] [address] Jun, [facility] [place] [address] [id number] [place] [address] May, [facility] [place] [address] [id number] [place] [address] May, Diastolic dysfunction I51.9 [facility] [place] [address] [id number], [place] [address] May, Rectal prolapse K62.3 ; Rheu matoid arthritis M06.9 ; Diastolic dysfunction I51.9 and CKD (chronic kidney disease) stage 3, GFR 30-59 ml/min N18.3 [facility] [place] [address] [id number] [place] [address] May, [facility] [place] [address] [id number] [place] [address] May, [facility] [place] [address] [facility] [id number] [place] [address] May, Inflammation, skin L08.9 and Non-intractable vomiting with nausea, unspecified vomiting type R11.2 [facility] [place] [address] 340[address] [id number] [place] [address] May, [facility] [place] [address] [id number] [place] [address] Apr, [facility] [place] [address] 340[address] [id number] [place] [address] Apr, Acute ethmoidal sinusitis, r ecurrence not specified J01.[address] [facility] [place] [address] [facility] [id number] [place] [address] Apr, Sore throat J02.9 and Oral thrush B37.0 [facility] [address] [facility] [id number] [place] [address] Apr, Screening for breast cancer Z12.39 [facility] [address] [id number] [place] [address] Apr, [facility] [address] [id number] [place] [address] Apr, Rheumatoid arthritis M06.9 [facility] [address] 340[address] [id number] [place] [address] March, [facility] [address] [id number] [address] March, [facility] [address] [id number], [place] [address] March, [facility] [address] [id number], [place] [address] March, [facility] [address] 340[address] [id number], [place] [address] March, Ulcerative colitis K51.90 an d 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 [facility] [address] 340[address] [id number], [place] [address] Feb, [facility] [address] [id number] [place] [address] Feb, [facility] [address] [facility] [id number] [place] [address] Jan, [facility] [address] 340[address] [id number], [place] [address] Jan, Diastolic dysfunction I51.9 ; Rheumatoid arthritis M06.9 ; Ulcerative colitis K51.90 ; Essential hypertension I10 ; Moderate episode of recurrent major depressive disorder F33.1 and Iron deficiency anemia secondary to inadequate dietary iron intake D50.8 [facility] [place] [facility] [address] [facility] 340B [id number] [place] [address] Jan, 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 [address] 340[address] [id number], [place] [address] Dec, [facility] [address] [facility] [id number] [place] [address] Nov, Viral upper respiratory illness J06.9 and Nausea alone R11.0 [facility] [address] [facility] [id number] [address] [place] [address] Oct, [facility] [address] [facility] [id number] [address] [place] [address] Oct, [facility] [address] [facility] [id number] [address] [place] [address] Oct, [facility] [address] [facility] [id number] [address] [place] [address] Aug, [facility] [address] [facility] [id number] [address] [place] [address] March, [facility] [address] [facility] [id number] [address] [place] [address] Feb, [facility] [address] [facility] [id number] [address] [place] [address] Feb, [facility] [address] [facility] [id number] [address] [place] [address] 10 Jan, 2015 [facility] [address] [facility] [id number] [address] [place] [address] Jan, [facility] [address] [id number] [address] [place] [address], [place] [address] Oct, [facility] [address] [id number] [address] [place] [address], [place] [address] Oct, [facility] [address] [id number] [address] [place] [address], [place] [address] Oct, [facility] [address] [id number] [address] [place] [address], [place] [address] Sep, [facility] [address] [id number] [address] [place] [address], [place] [address] Sep, [facility] [address] [id number] [address] [place] [address], [place] [address] Sep, [facility] [address] [id number] [address] [place] [address], [place] [address] Sep, [facility] [address] [id number] [address] [place] [address], [place] [address] Sep, [facility] [address] [id number] [address] [place] [address], [place] [address] Aug, [facility] [address] [id number] [address] [place] [address], [place] [address] Aug, [facility] [address] [id number] [address] [place] [address], [place] [address] Jul, [facility] [address] [id number] [address] [place] [address], [place] [address] Jul, [facility] [address] [id number] [address] [place] [address], [place] [address] Jul, [facility] [address] [id number] [address] [place] [address], [place] [address] Jul, [facility] [address] [id number] [address] [place] [address], [place] [address] 08 Jul, 2014 [facility] [address] [id number] [address] [place] [address], [place] [address] Jul, [facility] [address] [id number] [address] [place] [address], [place] [address] May, [facility] [address] [id number] [address] [place] [address], [place] [address] May, [facility] [address] [id number] [address] [place] [address], [place] [address] May, [facility] [address] [id number] [address] [place] [address], [place] [address] May, [facility] [address] [id number] [address] [place] [address], [place] [address] May, [facility] [address] [id number] [address] [place] [address], [place] [address] May, [facility] [address] [id number] [address] [place] [address], [place] [address] Apr, [facility] [address] [id number] [address] [place] [address], [place] [address] Apr, [facility] [address] [id number] [address] [place] [address], [place] [address] Apr, [facility] [address] [id number] [address] [place] [address], [place] [address] Apr, [facility] [address] [id number] [address] [place] [address], [place] [address] Apr, [facility] [address] [id number] [address] [place] [address], [place] [address] Apr, [facility] [address] [id number] [address] [place] [address], [place] [address] Apr, [facility] [address] [id number] [address] [place] [address], [place] [address] Apr, [facility] [address] [id number] [address] [place] [address], [place] [address] March, [facility] [address] [id number] [address] [place] [address], [place] [address] March, [facility] [address] [id number] [address] [place] [address], [place] [address] March, [facility] [address] [id number] [address] [place] [address], [place] [address] Feb, [facility] [address] [id number] [address] [place] [address], [place] [address] Feb, [facility] [address] [id number] [address] [place] [address], [place] [address] Feb, [facility] [address] [id number] [address] [place] [address], [place] [address] Feb, [facility] [address] [id number] [address] [place] [address], [place] [address] Feb, [facility] [address] [id number] [address] [place] [address], [place] [address] Feb, [facility] [address] [id number] [address] [place] [address], [place] [address] Feb, [facility] [address] [id number] [address] [place] [address], [place] [address] Feb, [facility] [address] [id number] [address] [place] [address], [place] [address] Jan, [facility] [address] [id number] [address] [place] [address], [place] [address] Jan, [facility] [address] [id number] [address] [place] [address], [place] [id number] Dec, [facility] [address] [id number] [address] [place] [address], [place] [address] Dec, [facility] [address] [id number] [address] [place] [address], [place] [address] Dec, [facility] [address] [id number] [address] [place] [address], [place] [address] Dec, [facility] [address] [id number] [address] [place] [address], [place] [address] Dec, [facility] [address] [id number] [address] [place] [address], [place] [address] Nov, [facility] [address] [id number] [address] [place] [address], [place] [address] Nov, [facility] [address] [id number] [address] [place] [address], [place] [address] Nov, [facility] [address] [id number] [address] [place] [address], [place] [address] Nov, [facility] [address] [id number] [address] [place] [address], [place] [address] Nov, [facility] [address] [id number] [address] [place] [address], [place] [address] Nov, [facility] [address] [id number] [address] [place] [address], [place] [address] Oct, [facility] [address] [id number] [address] [place] [address], [place] [address] Oct, [facility] [address] [id number] [address] [place] [address], [place] [address] Sep, [facility] [address] [id number] [address] [place] [address], [place] [address] Sep, [facility] [address] [id number] [address] [place] [address], [place] [address] Sep, [facility] [address] [id number] [address] [place] [address], [place] [address] Sep, [facility] [address] [id number] [address] [place] [address], [place] [address] Sep, [facility] [address] [id number] [address] [place] [address], [place] [address] Sep, [facility] [address] [id number] [address] [place] [address], [place] [address] 14 Aug, 2013 [facility] [address] [id number] [address] [place] [address], [place] [address] 14 Aug, 2013 [facility] [address] [id number] [address] [place] [address], [place] [address] May, [facility] [address] [id number] [address] [place] [address], [place] [address] May, [facility] [address] [id number] [address] [place] [address], [place] [address] May, [facility] [address] [id number] [address] [place] [address], [place] [address] May, [facility] [address] [id number] [address] [place] [address], [place] [address] Apr, [facility] [address] [id number] [address] [place] [address], [place] [address] Feb, [facility] [address] [id number] [address] [place] [address], [place] [address] Jan, [facility] [address] [id number] [address] [place] [address], [place] [address] Nov, [facility] [address] [id number] [address] [place] [address], [place] [address] Nov, [facility] [address] [id number] [address] [place] [address], [place] [address] Nov, [facility] [address] [id number] [address] [place] [address], [place] [address] Nov, [facility] [address] [id number] [address] [place] [address], [place] [address] Oct, [facility] [address] [id number] [address] [place] [address], [place] [address] Oct, [facility] [address] [id number] [address] [place] [address], [place] [address] Oct, [facility] [address] [id number] [address] [place] [address], [place] [address] Oct, [facility] [address] [id number] [address] [place] [address], [place] [address] Oct, [facility] [address] [id number] [address] [place] [address], [place] [address] Oct, [facility] [address] [id number] [address] [place] [address], [place] [address] Oct, [facility] [address] [id number] [address] [place] [address], [place] [address] Oct, [facility] [address] [id number] [address] [place] [address], [place] [address] Sep, [facility] [address] [id number] [address] [place] [address], [place] [address] Sep, [facility] [address] [id number] [address] [place] [address], [place] [address] 16 Aug, 2012 [facility] [address] [id number] [address] [place] [address], [place] [address] Aug, [facility] [address] [id number] [address] [place] [address], [place] [address] 24 Jul, 2012 [facility] [address] [id number] [address] [place] [address], [place] [address] Jul, [facility] [address] [id number] [address] [place] [address], [place] [address] Jun, [facility] [address] [id number] [address] [place] [address], [place] [address] Jun, [facility] [address] [id number] [address] [place] [address], [place] [address] Jun, [facility] [address] [id number] [address] [place] [address], [place] [address] Jun, [facility] [address] [id number] [address] [place] [address], [place] [address] 30 May, 2012 [facility] [address] [id number] [address] [place] [address], [place] [address] 26 May, 2012 [facility] [address] [id number] [address] [place] [address], [place] [address] May, [facility] [address] [id number] [address] [place] [address], [place] [address] 16 May, 2012 [facility] [address] [id number] [address] [place] [address], [place] [address] May, [facility] [address] [id number] [address] [place] [address], [place] [address] May, [facility] [address] [id number] [address] [place] [address], [place] [address] Apr, [facility] [address] [id number] [address] [place] [address], [place] [address] March, [facility] [address] [id number] [address] [place] [address], [place] [address] March, [facility] [address] [id number] [address] [place] [address], [place] [address] Feb, [facility] [address] [id number] [address] [place] [address], [place] [address] Feb, [facility] [address] [id number] [address] [place] [address], [place] [address] Feb, [facility] [address] [id number] [address] [place] [address], [place] [address] Feb, [facility] [address] [id number] [address] [place] [address], [place] [address] Jan, [facility] [address] [id number] [address] [place] [address], [place] [address] Dec, [facility] [address] [id number] [address] [place] [address], [place] [address] Nov, [facility] [address] [id number] [address] [place] [address] Nov, [facility] [address] [id number] [address] [place] [address] Nov, [facility] [address] [id number] [address] [place] [address] Oct, [facility] [address] [id number] [address] [place] [address] Oct, [facility] [address] [id number] [address] [place] [address] Sep, [facility] [address] [id number] [address] [place] [address] Sep, [facility] [address] [id number] [address] [place] [address] Oct, [facility] [address] [id number] [address] [place] [address] Sep, [facility] [address] [id number] [address] [place] [address] Aug, [facility] [address] [id number] [address] [place] [address] Aug, IMMUNIZATIONS No Known Immunizations SOCIAL HISTORY [...]
--- OUTSIDE RECORDS SUMMARY | 2020-05-29 11:17 | XMS REPORT | Continuity of Care Document ---
Demographics Preferred Language Unknown Marital Status Unknown Christian Affiliation Unknown Race Unknown Ethnic Group Unknown Author Organization Unknown Address Unknown Phone Unavailable Allergies Active Description Code Type Severity Reaction Onset Reported/Identified Relationship to Patient Clinical Status Yes SULFAMETHOXAZOLE-TRIMETHOPRIM SULFAMETHOXAZOLE-TRI SEVERE Yes SULFAMETHOXAZOLE-TRIMETHOPRIM SEVERE DERMATOLOGICAL - NILS Yes SULFAMETHOXAZOLE-TRIMETHOPRIM SEVERE SEVERE Yes sulfa drug Drug Allergy 09/19/2011 Yes Sulfa (Sulfonamide Antibiotics) [id number] Drug Allergy Unknown N/A 019 Medications Medication Packaging Start Date St op Date Route Dosage Sig ONDANSETRON VIAL INJ [...] BID&08,1999 FAMOTIDINE VIAL INJ 20 MG/2CC (PEPCID VIAL ) MG 07/23/2017 07/30/2017 BID&0800,1999 Memantine oral tablet [...] 11/17/2017 ONCE&0244 NORMAL SALINE 250CC IV BAG I NJ 0.9 % (NS 250CC IV BAG) ml 01/12/2018 01/12/2018 ONCE&1625 POTASSIUM CL 40MEQ VIAL INJ 40 MEQ/20CC (KCL VIAL) MEQ 01/12/2018 01/12/2018 ONCE&1648 NORMAL SALINE 250CC IV BAG I NJ 0.9 % (NS 250CC IV BAG) ml [...] Nystatin top powder (Mycostatin) APPLICATION 01/12/2018 01/26/2018 BID&0800,1999 Memantine oral tablet 5mg (NAMENDA) Dose(s) 01/12/2018 01/22/2018 BID&0800,2000 PANTOPRAZOLE TAB 40 MG (PROTONIX) Dose(s) 01/12/2018 01/12/2018 ONCE&0900 PRAMIPEXOLE TAB 0.25 MG (MIRAPEX) Dose(s) 01/12/2018 01/18/2018 QHS&2100 TRAZODONE TAB 50 MG (DESYREL) Dose(s) 01/12/2018 01/19/2018 PRN QHS ONDANSETRON VIAL INJ 4 MG/2CC (ZOFRAN 2CC VIAL) MG 01/12/2018 01/19/2018 PRN Q4H HYDROCODONE/APAP 5MG/325MG T AB 5 MG/325MG (CARLOS-TAB 5/325) TAB 01/12/2018 01/22/2018 PRN Q6H LEVALBUTEROL LIQ 1.25 MG/3ML (XOPENEX) MG 01/13/2018 01/19/2018 QID&0600,1100,1600,2100 MELOXICAM TAB 7.5 MG (MOBIC) MG 01/13/2018 01/20/2018 PRN Daily PANTOPRAZOLE TAB 40 MG (PROTONIX) Dose(s) 01/13/2018 01/22/2018 Daily&0900 ARIPIPRAZOLE TAB 10 MG (ABILIFY) Dose(s) 01/13/2018 01/19/2018 Daily&0900 DULOXETINE CAP 30 MG (CYMBALTA) Dose(s) 01/13/2018 01/19/2018 Daily&0900 HYDROCHLOROTHIAZIDE CAP 12.5 MG (HYDRODIUR IL) Dose(s) 01/13/2018 01/19/2018 Daily&0900 AMLODIPINE TAB 5 MG (NORVASC) Dose(s) 01/13/2018 01/19/2018 Daily&0900 METOPROLOL TAB 25 MG (LOPRESSOR) Dose(s) 01/13/2018 01/19/2018 Daily&0900 VITAMIN D-3 TAB 1000 UNITS (VITAMIN D-3) Dose(s) 01/13/2018 01/19/2018 Daily&0900 LEVOTHYROXINE TAB 75 MCG (SYNTHROID) Dose(s) 01/13/2018 01/19/2018 Daily&0900 PANTOPAZOLE VIAL INJ 40 MG (PROTONIX IV) MG 01/13/2018 01/22/2018 Daily&0900 NORMAL SALINE W/KCL 40MEQ IV (SALINE IV BAG [id number]) MLS 01/13/2018 01/20/2018 CONTINUOUSEVERY 0 Hour LACTOBACILLUS BULGARIS TAB (LACTINEX BULGA RIS) tab 01/13/2018 01/23/2018 QID&0800,1200,1700,2200 METOPROLOL TAB 25 MG (LOPRESSOR) MG 01/13/2018 01/13/2018 ONCE&1215 NORMAL SALINE W/KCL 40MEQ IV (SALINE IV BAG [id number]) MLS 01/13/2018 01/20/2018 CONTINUOUSEVERY 0 Hour NORMAL SALINE W/KCL 40MEQ IV (SALINE IV BAG [id number]) MLS 01/14/2018 01/21/2018 CONTINUOUSEVERY 0 Hour MESALAMINE [...] 02/10/2018 BID&0800,1999 Aripiprazole oral tablet 5mg (Abilify) Dose(s) 02/03/2018 [...] oral tablet 5mg (Abilify) Dose(s) 02/11/2018 03/12/2018 QPM&1999 TRAZODONE TAB 50 MG [...] ASPIRIN 81MG CHEWABLE TAB 81 MG (BABY ASPI RIN) MG 08/01/2018 08/01/2018 ONCE&1422 NITROSTAT TAB 0.4 MG (NITROQUICK) MG 08/01/2018 08/01/2018 ONCE&1424 Metoprolol IV soln 5mg/5cc vial (Lopressor ) MG 08/01/2018 08/01/2018 ONCE&1438 NITROSTAT TAB 0.4 MG (NITROGLYCERINE) MG 08/01/2018 08/01/2018 PRN ONCE NITROGLYCERIN PATCH PAT 0.4 MG MG 08/01/2018 08/01/2018 ONCE&1439 Morphine IV cartridge 4mg/cc MG 08/01/2018 08/08/2018 PRN Q4H DEXAMETHASONE VIAL INJ 4 MG/CC (DECADRON V IAL) MG 08/04/2018 08/04/2018 ONCE&0053 KETOROLAC VIAL INJ [...] 05/10/2019 ONCE&0236 NORMAL SALINE 500CC IV BAG I NJ 0.9 % (NS 500CC IV BAG) ml 05/10/2019 05/10/2019 ONCE&0236 NORMAL SALINE 500CC IV BAG I NJ 0.9 % (NS 500CC IV BAG) ml 05/10/2019 05/10/2019 ONCE&0357 Heparin, FLUSH IV syringe 500 units UNITS 05/10/2019 05/10/2019 ONCE&0436 Heparin, FLUSH IV syringe 500 units UNITS 05/10/2019 05/19/2019 BID&0800,2000 Problems Date Dx Coded Attending Type Code Diagnosis Diagnosed By 07/28/2010 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 07/28/2010 ESPITIA ROOSEVELT [facility] 295.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 AFFECTIVE 07/28/2010 ESPITIA ROOSEVELT [facility] 295.70 P SCHIZO AFFECTIVE 07/28/2010 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 07/28/2010 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 07/28/2010 ANDER GRANT DO 295.70 P SCHIZO AFFECTIVE 07/28/2010 ESPITIA BULB PLANTER, [facility] 295.70 P SCHIZO AFFECTIVE 07/28/2010 ESPITIA BULB PLANTER, [facility] 295.70 P SCHIZO AFFECTIVE 07/28/2010 ESPITIA BULB PLANTER, [facility] 295.70 P SCHIZO AFFECTIVE 07/28/2010 ESPITIA BULB PLANTER, [facility] 295.70 P SCHIZO AFFECTIVE 07/28/2010 ESPITIA BULB PLANTER, [facility] 295.70 P SCHIZO AFFECTIVE 07/28/2010 ESPITIA BULB PLANTER, [facility] 295.70 P SCHIZO AFFECTIVE 07/28/2010 ESPITIA BULB PLANTER, [facility] 295.70 P SCHIZO AFFECTIVE 07/28/2010 MICHELLE COLEY 295.70 P SCHIZO AFFECTIVE 08/09/2010 Ot 569.1 RECT AL PROLAPSE 08/09/2010 Ot 569.42 AZAM OR RECTAL PAIN 09/23/2010 Ot 244.9 HYPO THYROIDISM NOS 09/23/2010 Ot 272.4 HYPE RLIPIDEMIA NEC/NOS 09/23/2010 Ot 280.0 CHR BLOOD LOSS ANEMIA 09/23/2010 Ot 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 09/23/2010 Ot 356.9 IDIO PERIPH NEURPTHY NOS 09/23/2010 Ot 401.9 HYPE RTENSION NOS 09/23/2010 Ot 414.01 COR ONARY ATHEROSCLEROSIS OF [place] CORON 09/23/2010 Ot 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 09/23/2010 Ot 455.8 HEMR RHOID NOS W COMP NEC 09/23/2010 Ot 530.81 ESO PHAGEAL REFLUX 09/23/2010 Ot 553.1 UMBI LICAL HERNIA 09/23/2010 Ot 564.00 UNS PEC CONSTIPATION 09/23/2010 Ot 569.1 RECT AL PROLAPSE 09/23/2010 Ot 729.1 MYAL ALANNAH AND MYOSITIS NOS 09/23/2010 Ot 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 09/23/2010 Ot 780.52 INS OMNIA, UNSPECIFIED 09/26/2010 Ot 244.9 HYPO THYROIDISM NOS 09/26/2010 Ot 272.4 HYPE RLIPIDEMIA NEC/NOS 09/26/2010 Ot 280.0 CHR BLOOD LOSS ANEMIA 09/26/2010 Ot 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 09/26/2010 Ot 356.9 IDIO PERIPH NEURPTHY NOS 09/26/2010 Ot 401.9 HYPE RTENSION NOS 09/26/2010 Ot 414.01 COR ONARY ATHEROSCLEROSIS OF [place] CORON 09/26/2010 Ot 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 09/26/2010 Ot 455.8 HEMR RHOID NOS W COMP NEC 09/26/2010 Ot 530.81 ESO PHAGEAL REFLUX 09/26/2010 Ot 564.00 UNS PEC CONSTIPATION 09/26/2010 Ot 729.1 MYAL ALANNAH AND MYOSITIS NOS 09/26/2010 Ot 780.52 INS OMNIA, UNSPECIFIED 09/26/2010 Ot V57.1 PHYS ICAL THERAPY NEC 09/26/2010 Ot V58.75 AFT [facility] POST SURGERY TEETH,ORAL CAVITY 05/21/2011 Ot 682.6 CELL ULITIS OF LEG 05/22/2011 Ot 729.81 SWE LLING OF LIMB 11/06/2011 465.9 UPPE R RESPIRATORY INFECTION 11/06/2011 V65.42 COU NSELING - SMOKING CESSATION 11/06/2011 ESPITIA ROOSEVELT SAMARA BROWN 465.9 UPPER RESPIRATORY INFECTION 11/06/2011 NUPUR ALBERT SAMARA KEVIN V65.42 COUNSELING - SMOKING CESSATION 11/06/2011 NUPUR ALBERT SAMARA BROWN 465.9 UPPER RESPIRATORY INFECTION 11/06/2011 NUPUR ALBERT SAMARA KEVIN V65.42 COUNSELING - SMOKING CESSATION 11/06/2011 465.9 UPPE R RESPIRATORY INFECTION 11/06/2011 V65.42 COU NSELING - SMOKING CESSATION 11/06/2011 465.9 UPPE R RESPIRATORY INFECTION 11/06/2011 V65.42 COU NSELING - SMOKING CESSATION 11/06/2011 GRANT DOANDER K 465.9 UPPER RESPIRATORY INFECTION 11/06/2011 GRANT ANDER LEDEZMA K V65.42 COUNSELING - SMOKING CESSATION 11/06/2011 ESPITIAALCON ALBERT SAMARA BROWN 465.9 UPPER RESPIRATORY INFECTION 11/06/2011 NUPUR ALBERT SAMARA KEVIN V65.42 COUNSELING - SMOKING CESSATION 11/06/2011 NUPUR ALBERT SAMARA BROWN 465.9 UPPER RESPIRATORY INFECTION 11/06/2011 NUPUR ALBERT SAMARA KEVIN V65.42 COUNSELING - SMOKING CESSATION 11/06/2011 NUPUR ALBERT SAMARA BROWN 465.9 UPPER RESPIRATORY INFECTION 11/06/2011 NUPUR ALBERT SAMARA KEVIN V65.42 COUNSELING - SMOKING CESSATION 11/06/2011 NUPUR ALBERT SAMARA BROWN 465.9 UPPER RESPIRATORY INFECTION 11/06/2011 NUPUR ALBERT SAMARA KEVIN V65.42 COUNSELING - SMOKING CESSATION 11/06/2011 NUPUR ALBERT SAMARA BROWN 465.9 UPPER RESPIRATORY INFECTION 11/06/2011 NUPUR ALBERT SAMARA KEVIN V65.42 COUNSELING - SMOKING CESSATION 11/06/2011 NUPUR ALBERT SAMARA BRWON 465.9 UPPER RESPIRATORY INFECTION 11/06/2011 NUPUR ALBERT SAMARA KEVIN V65.42 COUNSELING - SMOKING CESSATION 11/06/2011 ESPITIA BULB PLANTER, SAMARA BANGURAH 465.9 UPPER RESPIRATORY INFECTION 11/06/2011 ESPITIA BULB PLANTER, SAMARA BANGURAH V65.42 COUNSELING - SMOKING CESSATION 11/06/2011 MICHELLE COLEY M 465.9 UPPER RESPIRATORY INFECTION 11/06/2011 MICHELLE COLEY V65.42 COUNSELING - SMOKING CESSATION 11/10/2011 466.0 BRON CHITIS, ACUTE 11/10/2011 ESPITIA BULB PLANTER, SAMARA KEVIN 466.0 BRONCHITIS, ACUTE 11/10/2011 ESPITIA BULB PLANTER, SAMARA KEVIN 466.0 BRONCHITIS, ACUTE 11/10/2011 466.0 BRON CHITIS, ACUTE 11/10/2011 466.0 BRON CHITIS, ACUTE 11/10/2011 ANDER GRANT DO 466.0 BRONCHITIS, ACUTE 11/10/2011 ESPITIA BULB PLANTER, SAMARA KEVIN 466.0 BRONCHITIS, ACUTE 11/10/2011 ESPITIA BULB PLANTER, SAMARA KEVIN 466.0 BRONCHITIS, ACUTE 11/10/2011 ESPITIA BULB PLANTER, SAMARA KEVIN 466.0 BRONCHITIS, ACUTE 11/10/2011 ESPITIA BULB PLANTER, SAMARA KEVIN 466.0 BRONCHITIS, ACUTE 11/10/2011 ESPITIA BULB PLANTER, SAMARA KEVIN 466.0 BRONCHITIS, ACUTE 11/10/2011 ESPITIA BULB PLANTER, SAMARA KEVIN 466.0 BRONCHITIS, ACUTE 11/10/2011 ESPITIA BULB PLANTER, SAMARA KEVIN 466.0 BRONCHITIS, ACUTE 11/10/2011 MICHELLE COLEY M 466.0 BRONCHITIS, ACUTE 02/29/2012 Ot 300.00 ANX IETY STATE NOS 02/29/2012 Ot 714.0 RHEU MATOID ARTHRITIS 02/29/2012 Ot 729.5 PAIN IN LIMB 06/03/2013 ANDER GRANT DO 894.0 WOUND OPEN LOWER LIMB 06/03/2013 ESPITIA BULB PLANTERSAMARA Aldrich KEVIN 894.0 WOUND OPEN LOWER LIMB 06/03/2013 ESPITIA BULB PLANTER, SAMARA KEVIN 894.0 WOUND OPEN LOWER LIMB 06/03/2013 ESPITIA BULB PLANTER, SAMARA KEVIN 894.0 WOUND OPEN LOWER LIMB 06/03/2013 ESPITIA BULB PLANTER SAMARA KEVIN 894.0 WOUND OPEN LOWER LIMB 06/03/2013 ESPITIA BULB PLANTER SAMARA KEVIN 894.0 WOUND OPEN LOWER LIMB 06/03/2013 ESPITIA BULB PLANTER, SAMARA BROWN 894.0 WOUND OPEN LOWER LIMB 06/03/2013 ESPITIA BULB PLANTER, SAMARA BROWN 894.0 WOUND OPEN LOWER LIMB 06/03/2013 MICHELLE COLEY 894.0 WOUND OPEN LOWER LIMB 09/15/2013 ESPITIA BULB PLANTER, SAMARA BANGURAH 294.20 DEMENTIA UNSPECIFIED WITHOUT BEHAVIORAL DISTURBANCE 09/15/2013 ESPITIA BULB PLANTER, SAMARA KEVIN 294.20 DEMENTIA UNSPECIFIED WITHOUT BEHAVIORAL DISTURBANCE 09/15/2013 ESPITIA BULB PLANTER, SAMARA KEVIN 294.20 DEMENTIA UNSPECIFIED WITHOUT BEHAVIORAL DISTURBANCE 09/15/2013 ESPITIA BULB PLANTER, SAMARA KEVIN 294.20 DEMENTIA UNSPECIFIED WITHOUT BEHAVIORAL DISTURBANCE 09/15/2013 ESPITIA BULB PLANTER, SAMARA BANGURAH 294.20 DEMENTIA UNSPECIFIED WITHOUT BEHAVIORAL DISTURBANCE 09/15/2013 ESPITIA BULB PLANTER, SAMARA BANGURAH 294.20 DEMENTIA UNSPECIFIED WITHOUT BEHAVIORAL DISTURBANCE 09/15/2013 ESPITIA BULB PLANTER, SAMARA BROWN 294.20 DEMENTIA UNSPECIFIED WITHOUT BEHAVIORAL DISTURBANCE 09/15/2013 RONALDMICHELLE ORTIZ M 294.20 DEMENTIA UNSPECIFIED WITHOUT BEHAVIORAL DISTURBANCE 09/30/2014 RONALD HAND STAPLER, MICHELLE M 300.00 AN ANXIETY UNSPEC 09/30/2014 RONALD DYSON MICHELLE M 3 11 MO DEPRESS NOS 06/16/2015 SANGEETA ESCALANTE, MUKUL E Ot 244.9 06/16/2015 SANGEETA ESCALANTE, MUKUL E Ot 285.9 06/16/2015 SANGEETA ESCALANTE, MUKUL E Ot 294.9 06/16/2015 SANGEETA ESCALANTE, MUKUL E Ot 401.9 06/16/2015 SANGEETA ESCALANTE, MUKUL E Ot 530.8 1 06/16/2015 SANGEETA ESCALANTE, MUKUL E Ot 714.0 06/16/2015 SANGEETA ESCALANTE, MUKUL E Ot 729.1 06/16/2015 SANGEETA ESCALANTE, MUKUL E Ot 733.0 0 06/16/2015 SANGEETA ESCALANTE, MUKUL E Ot V54.2 6 06/16/2015 SANGEETA ESCALANTE, MUKUL E Ot V57.8 9 06/17/2015 SANGEETA ESCALANTE, MUKUL E Ot 244.9 06/17/2015 SANGEETA ESCALANTE, MUKUL E Ot 285.9 06/17/2015 SANGEETA ESCALANTE, MUKUL E Ot 294.9 06/17/2015 SANGEETA ESCALANTE, MUKUL E Ot 401.9 06/17/2015 SANGEETA ESCALANTE, MUKUL E Ot 530.8 1 06/17/2015 SANGEETA ESCALANTE, MUKUL E Ot 714.0 06/17/2015 SANGEETA ESCALANTE, MUKUL E Ot 729.1 06/17/2015 SANGEETA ESCALANTE, MUKUL E Ot 733.0 0 06/17/2015 SANGEETA ESCALANTE, MUKUL E Ot V54.2 6 06/17/2015 SANGEETA ESCALANTE, MUKUL E Ot V57.8 9 06/18/2015 SANGEETA ESCALANTE, MUKUL E Ot 244.9 06/18/2015 SANGEETA ESCALANTE, MUKUL E Ot 285.9 06/18/2015 SANGEETA ESCALANTE, MUKUL E Ot 294.9 06/18/2015 SANGEETA ESCALANTE, MUKUL E Ot 401.9 06/18/2015 SANGEETA ESCALANTE, MUKUL E Ot 530.8 1 06/18/2015 SANGEETA ESCALANTE, MUKUL E Ot 714.0 06/18/2015 SANGEETA ESCALANTE, MUKUL E Ot 729.1 06/18/2015 SANGEETA ESCALANTE, MUKUL E Ot 733.0 0 06/18/2015 SANGEETA ESCALANTE, MUKUL E Ot V54.2 6 06/18/2015 SANGEETA ESCALANTE, MUKUL E Ot V57.8 9 06/23/2015 SANGEETA ESCALANTE, MUKUL E Ot 244.9 06/23/2015 SANGEETA ESCALANTE, MUKUL E Ot 285.9 06/23/2015 SANGEETA ESCALANTE, MUKUL E Ot 294.9 06/23/2015 SANGEETA ESCALANTE, MUKUL E Ot 401.9 06/23/2015 SANGEETA ESCALANTE, MUKUL E Ot 530.8 1 06/23/2015 SANGEETA ESCALANTE, MUKUL E Ot 714.0 06/23/2015 SANGEETA ESCALANTE, MUKUL E Ot 729.1 06/23/2015 SANGEETA ESCALANTE, MUKUL E Ot 733.0 0 06/23/2015 SANGEETA ESCALANTE, MUKUL E Ot V54.2 6 06/23/2015 SANGEETA ESCALANTE, MUKUL E Ot V57.8 9 06/26/2015 SANGEETA ESCALANTE MUKUL E Ot 244.9 HYPOTHYROIDISM NOS 06/26/2015 SANGEETA ESCALANTE MUKUL E Ot 273.8 DIS PLAS PROTEIN MET NEC 06/26/2015 SANGEETA ESCALANTE, MUKUL E Ot 285.9 ANEMIA NOS 06/26/2015 SANGEETA ESCALANTE MUKUL E Ot 294.9 UNSPEC 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 06/26/2015 SANGEETA ESCALANTE, MUKUL E Ot 401.9 HYPERTENSION NOS 06/26/2015 SANGEETA ESCALANTE, MUKUL E Ot 458.9 HYPOTENSION NOS 06/26/2015 SANGEETA ESCALANTE, MUKUL E Ot 530.8 1 ESOPHAGEAL REFLUX 06/26/2015 SANGEETA ESCALANTE, MUKUL E Ot 707.0 5 PRESSURE ULCER, BUTTOCK 06/26/2015 SANGEETA ESCALANTE, MUKUL E Ot 707.2 2 PRESSURE ULCER, STAGE II 06/26/2015 SANGEETA ESCALANTE, MUKUL E Ot 714.0 RHEUMATOID ARTHRITIS 06/26/2015 SANGEETA ESCALANTE, MUKUL E Ot 726.1 0 BURSAE TENDONS DIS SHLDER NOS 06/26/2015 SANGEETA ESCALANTE, MUKUL E Ot 729.1 MYALGIA AND MYOSITIS NOS 06/26/2015 SANGEETA ESCALANTE, MUKUL E Ot 733.0 0 OSTEOPOROSIS NOS 06/26/2015 SANGEETA ESCALANTE, MUKUL E Ot V15.8 2 HISTORY OF TOBACCO USE 06/26/2015 SANGEETA ESCALANTE, MUKUL E Ot V49.7 2 OTHER TOE(S) AMPUTATION STATUS 06/26/2015 SANGEETA ESCALANTE, MUKUL E Ot V54.2 6 AFTERCARE HEALING PATHOLOGIC FX LOWER LE 06/26/2015 SANGEETA ESCALANTE, MUKUL E Ot V57.8 9 REHABILITATION PROC NEC 01/12/2017 Obie, Marie-Miranda A 428.9 01/12/2017 Matt Ragland A I50.9 HEART FAILURE, UNSPECIFIED 01/12/2017 Obie, Marie-Miranda W 276.51 DEHYDRATION 01/12/2017 Obie, Marie-Miranda W E86.0 DEHYDRATION 01/12/2017 Obie, Marie-Miranda W 558.9 OTHER AND UNSPECIFIED NONINFECTIOUS GASTROENTERITIS AND COLITIS 01/12/2017 Ragland, Marie-Miranda W K52.9 NONINFECTIVE GASTROENTERITIS AND COLITIS, UNSPECIFIED 01/13/2017 Obie, Marie-Miranda W 584.9 ACUTE KIDNEY FAILURE, UNSPECIFIED 01/13/2017 Obie, Marie-Miranda W N17.9 ACUTE KIDNEY FAILURE, UNSPECIFIED 01/13/2017 Obie, Marie-Miranda W 401.0 01/13/2017 Obie, Marie-Miranda W 428.9 01/13/2017 Obie, Marie-Miranda W 530.81 01/13/2017 Matt Ragland W 790.29 OTHER ABNORMAL GLUCOSE 01/13/2017 Matt Ragalnd W I10 ESSENTIAL (PRIMARY) HYPERTENSION 01/13/2017 Matt Ragland W I50.9 HEART FAILURE, UNSPECIFIED 01/13/2017 Matt Ragland W K21.9 GASTRO-ESOPHAGEAL REFLUX DISEASE WITHOUT ESOPHAGITIS 01/13/2017 Matt Ragland W R73.9 HYPERGLYCEMIA, UNSPECIFIED 04/16/2017 LION ESCALANTE, YURI Ot K52.839 MICROSCOPIC COLITIS, UNSPECIFIED 04/20/2017 LION ESCALANTE, YURI Ot K52.839 MICROSCOPIC COLITIS, UNSPECIFIED 06/01/2017 AMPARO ESCALANTE, RENU Bañuelos Ot M25.5 51 PAIN IN RIGHT HIP 06/01/2017 AMPARO ESCALANTE, RENU B Ot 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, LUMBAR REGIO 06/01/2017 AMPARO ESCALANTE, RENU B Ot 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, 06/14/2017 AMPARO ESCALANTE, RENU B Ot M25.5 51 PAIN IN RIGHT HIP 06/14/2017 AMPARO ESCALANTE, RENU B Ot 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, LUMBAR REGIO 06/14/2017 AMPARO ESCALANTE, RENU B Ot 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, 07/23/2017 Benoit, Lorena W 276.51 DEHYDRATION 07/23/2017 Benoit, Lorena W E86.0 DEHYDRATION 07/23/2017 Benoit, Lorena W 276.51 DEHYDRATION 07/23/2017 Beniot, Lorena W 288.60 LEUKOCYTOSIS, UNSPECIFIED 07/23/2017 Benoit, [...] Wallace W 787.01 NAUSEA WITH VOMITING 11/17/2017 Madison Jean A E86.0 DEHYDRATION 11/17/2017 Madison Jean W M06.9 RHEUMATOID ARTHRITIS, UNSPECIFIED 11/17/2017 Jean Wallace W R11.2 NAUSEA WITH VOMITING, UNSPECIFIED 01/12/2018 W 789.00 ABD OMINAL PAIN, UNSPECIFIED SITE 01/12/2018 W R10.30 LOW ER ABDOMINAL PAIN, UNSPECIFIED 01/14/2018 Benoit, Lorena W 276.8 HYPOPOTASSEMIA 01/14/2018 Tristin Laboya W E87.6 HYPOKALEMIA 01/14/2018 Benoit, Lorena W 041.81 MYCOPLASMA INFECTION IN CONDITIONS CLASSIFIED ELSEWHERE AND OF UNSPECIFIED SITE 01/14/2018 Tristin Laboya W 276.8 HYPOPOTASSEMIA 01/14/2018 Tristin Laboya W 558.9 OTHER AND UNSPECIFIED NONINFECTIOUS GASTROENTERITIS AND COLITIS 01/14/2018 Benoit, Lorena W 787.91 DIARRHEA 01/14/2018 Tristin Laboya W A49.3 MYCOPLASMA INFECTION, UNSPECIFIED SITE 01/14/2018 Tristin Laboya W E87.6 HYPOKALEMIA 01/14/2018 Benoit, Lorena W [...] 357.9 01/17/2018 Benoit, Lorena W 401.0 01/17/2018 [facility], Lorena W 558.9 OTHER AND UNSPECIFIED NONINFECTIOUS GASTROENTERITIS AND COLITIS 01/17/2018 [facility], Lorena W 714.0 01/17/2018 [facility], Lorena W 719.45 01/17/2018 [facility], Lorena W 787.91 DIARRHEA 01/17/2018 [facility], Lorena W 791.9 01/17/2018 [facility], Lorena W A49.3 MYCOPLASMA INFECTION, UNSPECIFIED SITE 01/17/2018 [facility], Lorena W B96.0 01/17/2018 [facility], Lorena W E03.9 HYPOTHYROIDISM, UNSPECIFIED 01/17/2018 [facility], Lorena W E78.5 01/17/2018 [facility], Lorena A E86.0 DEHYDRATION 01/17/2018 [facility], Lorena W E87.6 HYPOKALEMIA 01/17/2018 [facility], Lorena W F32.9 01/17/2018 [facility], Lorena W G62.9 POLYNEUROPATHY, UNSPECIFIED 01/17/2018 [facility], Lorena W I10 01/17/2018 [facility], Lorena W K52.9 NONINFECTIVE GASTROENTERITIS AND COLITIS, UNSPECIFIED 01/17/2018 [facility], Lorena W M06.9 01/17/2018 [facility], Lorena W M25.551 PAIN IN RIGHT HIP 01/17/2018 [facility], Lorena W R19.7 DIARRHEA, UNSPECIFIED 01/17/2018 [facility], Lorena W R82.99 OTHER ABNORMAL FINDINGS IN [...] W/O PERFORATION OR ABSCESS W/O BLEEDING 02/04/2018 Paoni, Bruce W R19.5 OTHER FECAL ABNORMALITIES 02/04/2018 Bruce Stoner A R19.7 DIARRHEA, UNSPECIFIED 02/11/2018 Jac Vanessa A 530.81 02/11/2018 VanessaJac W 535.50 UNSPECIFIED GASTRITIS AND GASTRODUODENIT IS, WITHOUT MENTION OF HEMORRHAGE 02/11/2018 VanessaJac W 55 2.3 DIAPHRAGMATIC HERNIA WITH OBSTRUCTION 02/11/2018 VanessaJac W 562.12 DIVERTICULOSIS OF COLON WITH HEMORRHAGE 02/11/2018 VanessaJac W 78 7.7 02/11/2018 VanessaJac W 787.91 DIARRHEA 02/11/2018 VanessaJac A K2 1.9 GASTRO-ESOPHAGEAL REFLUX DISEASE WITHOUT ESOPHAGITIS 02/11/2018 VanessaJac W K29.60 OTHER GASTRITIS WITHOUT BLEEDING 02/11/2018 VanessaJac W K4 4.9 DIAPHRAGMATIC HERNIA WITHOUT OBSTRUCTION OR GANGRENE 02/11/2018 RasheedaJac W 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 02/11/2018 VanessaJac W R1 9.5 OTHER FECAL ABNORMALITIES 02/11/2018 VanessaJac W R1 9.7 DIARRHEA, UNSPECIFIED 02/12/2018 GISELA HIGGINBOTHAM A 251.2 02/12/2018 GISELA HIGGINBOTHAM W 276.8 HYPOPOTASSEMIA 02/12/2018 GISELA HIGGINBOTHAM W 285.9 ANEMIA, UNSPECIFIED 02/12/2018 GISELA HIGGINBOTHAM W 401.0 MALIGNANT ESSENTIAL HYPERTENSION 02/12/2018 GISELA HIGGINBOTHAM W 428.9 HEART FAILURE, UNSPECIFIED 02/12/2018 GISELA HIGGINBOTHAM W D64.9 ANEMIA, UNSPECIFIED 02/12/2018 JOSELINE HIGGINBOTHAMARA A E16.2 HYPOGLYCEMIA, UNSPECIFIED 02/12/2018 GISELA HIGGINBOTHAM [...] OF NONSURG WOUND DRESSING 07/26/2018 W 715.11 OST EOARTHROSIS, LOCALIZED, PRIMARY, INVOLVING SHOULDER REGION 07/26/2018 W M19.012 MT IMARY OSTEOARTHRITIS, LEFT SHOULDER 08/01/2018 Jean Wallace 719.41 PAIN IN JOINT INVOLVING SHOULDER REGION 08/01/2018 Jean Wallace 780.8 GENERALIZED HYPERHIDROSIS 08/01/2018 Jean Wallace 785.0 TACHYCARDIA, UNSPECIFIED 08/01/2018 Jean Wallace 786.50 UNSPECIFIED CHEST PAIN 08/01/2018 Jean Wallace 787.02 NAUSEA ALONE 08/01/2018 Jean Wallace M25.51 2 PAIN IN LEFT SHOULDER 08/01/2018 Jean Wallace [...] Lewis W R11.0 NAUSEA 08/05/2018 W 715.11 OST EOARTHROSIS, LOCALIZED, PRIMARY, INVOLVING SHOULDER REGION 08/05/2018 W M19.012 MT IMARY OSTEOARTHRITIS, LEFT SHOULDER 08/16/2018 Gianni Gibson A 844.9 SPRAIN OF UNSPECIFIED SITE OF KNEE AND LEG 08/16/2018 Gianni Gibson W 922.31 CONTUSION OF BACK 08/16/2018 Gianni Gibson W S30.0XXA CONTUSION OF LOWER BACK AND PELVIS, INITIAL ENCOUNTER 08/16/2018 Gianni Gibson A S83.91XA SPRAIN OF UNSPECIFIED SITE OF RIGHT KNEE, INITIAL ENCOUNTER 08/29/2018 YURI SEYMOUR MD Ot K52.839 MICROSCOPIC COLITIS, UNSPECIFIED 08/29/2018 AMPARO ESCALANTE, RENU Bañuelos Ot M25.5 51 PAIN IN RIGHT HIP 08/29/2018 AMPARO ESCALANTE, RENU Bañuelos Ot 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 9 HYPOTHYROIDISM, UNSPECIFIED 08/29/2018 GREG ESCALANTE, KIRSTIN Villeda Ot K21. 9 GASTRO-ESOPHAGEAL REFLUX DISEASE WITHOUT 08/29/2018 GREG ESCALANTE, KIRSTIN Villeda Ot L03.115 CELLULITIS OF RIGHT LOWER LIMB 08/29/2018 KIRSTIN GARZA MD Ot M81. 0 AGE-RELATED OSTEOPOROSIS W/O CURRENT PAT 08/29/2018 KIRSTIN GARZA MD Ot Z87. 01 PERSONAL HISTORY OF PNEUMONIA (RECURRENT 08/29/2018 GREG ESCALANTE, KIRSTIN Villeda Ot Z88. 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, 09/28/2018 DEONNA MOBLEY APRN Ot E03 .9 HYPOTHYROIDISM, UNSPECIFIED 09/28/2018 DEONNA MOBLEY APRN Ot I10 ESSENTIAL (PRIMARY) HYPERTENSION 09/28/2018 DEONNA MOBLEY APRN Ot J02 .9 ACUTE PHARYNGITIS, UNSPECIFIED 09/28/2018 DEONNA MOBLEY APRN Ot K21 .9 GASTRO-ESOPHAGEAL REFLUX DISEASE WITHOUT 09/28/2018 DEONNA MOBLEY APRN Ot M06 .9 RHEUMATOID ARTHRITIS, UNSPECIFIED 09/28/2018 DEONNA MOBLEY APRN Ot M81 .0 AGE-RELATED OSTEOPOROSIS W/O CURRENT PAT 09/28/2018 DEONNA MOBLEY APRN Ot Z87.01 PERSONAL HISTORY OF PNEUMONIA (RECURRENT 09/28/2018 DEONNA MOBLEY APRN Ot Z87.19 PERSONAL HISTORY OF OTHER DISEASES OF TH 09/28/2018 DEONNA MOBLEY APRN Ot Z87.891 PERSONAL HISTORY OF NICOTINE DEPENDENCE 09/28/2018 DEONNA MOBLEY APRN Ot Z88 .2 ALLERGY STATUS TO SULFONAMIDES STATUS 09/28/2018 DEONNA MOBLEY APRN Ot Z90.710 ACQUIRED ABSENCE OF BOTH CERVIX AND UTER 09/28/2018 DEONNA MOBLEY APRN Ot Z90.89 ACQUIRED ABSENCE OF OTHER ORGANS 09/28/2018 DEONNA MOBLEY APRN Ot 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 09/28/2018 DEONNA MOBLEY APRN Ot Z98.890 OTHER SPECIFIED POSTPROCEDURAL STATES 10/01/2018 DEONNA MOBLEY APRN Ot E03 .9 HYPOTHYROIDISM, UNSPECIFIED 10/01/2018 DEONNA MOBLEY APRN Ot I10 ESSENTIAL (PRIMARY) HYPERTENSION 10/01/2018 DEONNA MOBLEY APRN, Ot J02 .9 ACUTE PHARYNGITIS, UNSPECIFIED 10/01/2018 DEONNA MOBLEY APRN Ot K21 .9 GASTRO-ESOPHAGEAL REFLUX DISEASE WITHOUT 10/01/2018 DEONNA MOBLEY APRN Ot M06 .9 RHEUMATOID ARTHRITIS, UNSPECIFIED 10/01/2018 DEONNA MOBLEY APRN Ot M81 .0 AGE-RELATED OSTEOPOROSIS W/O CURRENT PAT 10/01/2018 DEONNA MOBLEY APRN Ot Z87.01 PERSONAL HISTORY OF PNEUMONIA (RECURRENT 10/01/2018 DEONNA MOBLEY APRN Ot Z87.19 PERSONAL HISTORY OF OTHER DISEASES OF TH 10/01/2018 DEONNA MOBLEY APRN Ot Z87.891 PERSONAL HISTORY OF NICOTINE DEPENDENCE 10/01/2018 DEONNA MOBLEY APRN Ot Z88 .2 ALLERGY STATUS TO SULFONAMIDES STATUS 10/01/2018 DEONNA MOBLEY APRN Ot Z90.710 ACQUIRED ABSENCE OF BOTH CERVIX AND UTER 10/01/2018 EDONNA MOBLEY APRN Ot Z90.89 ACQUIRED ABSENCE OF OTHER ORGANS 10/01/2018 DEONNA MOBLEY APRN Ot 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 10/01/2018 DEONNA MOBLEY APRN Ot Z98.890 OTHER SPECIFIED POSTPROCEDURAL STATES 01/23/2019 Ot J44.9 POUND KEEPER JERMAINE OBSTRUCTIVE PULMONARY DISEASE, U 01/23/2019 Ot K44.9 DIAP HRAGMATIC HERNIA WITHOUT OBSTRUCTION 01/23/2019 Ot Z87.891 PE RSONAL HISTORY OF NICOTINE DEPENDENCE 01/30/2019 Ot J44.9 POUND KEEPER JERMAINE OBSTRUCTIVE PULMONARY DISEASE, U 01/30/2019 Ot K44.9 DIAP HRAGMATIC HERNIA WITHOUT OBSTRUCTION 01/30/2019 Ot Z87.891 PE RSONAL HISTORY OF NICOTINE DEPENDENCE 03/05/2019 TRISTIN LAWRENCE DOA K Ot E03.9 HYPOTHYROIDISM, UNSPECIFIED 03/05/2019 MELINDA DO LORENA K Ot I10 ESSENTIAL (PRIMARY) HYPERTENSION 03/05/2019 MELINDA DO LORENA K Ot K21.9 GASTRO-ESOPHAGEAL REFLUX DISEASE WITHOUT 03/05/2019 MELINDA DO LORENA K Ot K29.70 GASTRITIS, UNSPECIFIED, WITHOUT BLEEDING 03/05/2019 MELINDA DO LORENA K Ot K44.9 DIAPHRAGMATIC HERNIA WITHOUT OBSTRUCTION 03/05/2019 MELINDA LEDEZMA LORENA K Ot M06.9 RHEUMATOID ARTHRITIS, UNSPECIFIED 03/05/2019 TRISTIN LAWRENCE DOA K Ot M81.0 AGE- RELATED OSTEOPOROSIS W/O CURRENT PAT 03/05/2019 MELINDA LEDEZMA LORENA K Ot N39.0 URINARY TRACT INFECTION, SITE NOT SPECIF 03/05/2019 MELINDA LORENA Ot R19.7 DIARRHEA, UNSPECIFIED 03/05/2019 MELINDA LORENA Ot Z87.01 PERSONAL HISTORY OF PNEUMONIA (RECURRENT 03/05/2019 CENTENARY LORENA Ot Z87.19 PERSONAL HISTORY OF OTHER DISEASES OF 03/05/2019 MELINDA LORENA Ot Z87.891 PERSONAL HISTORY OF NICOTINE DEPENDENCE 03/05/2019 [facility].2 ALLERGY STATUS TO SULFONAMIDES STATUS 03/05/2019 [facility] Ot Z90.49 ACQUIRED ABSENCE OF OTHER SPECIFIED PART 03/05/2019 MELINDA LORENA Ot Z90.710 ACQUIRED ABSENCE OF BOTH CERVIX AND UTER 03/05/2019 [facility] Ot Z90.89 ACQUIRED ABSENCE OF OTHER ORGANS 03/05/2019 [facility] Ot Z98.890 OTHER SPECIFIED POSTPROCEDURAL STATES 03/07/2019 MELINDA LORENA Ot E03.9 HYPOTHYROIDISM, UNSPECIFIED 03/07/2019 MELINDA DOTRISTINA K Ot I10 ESSENTIAL (PRIMARY) HYPERTENSION 03/07/2019 MELINDA LORENA LEDEZMA Ot K21.9 GASTRO-ESOPHAGEAL REFLUX DISEASE WITHOUT 03/07/2019 [facility]iam Ot K29.70 GASTRITIS, UNSPECIFIED, WITHOUT BLEEDING 03/07/2019 [facility] Ot K44.9 DIAPHRAGMATIC HERNIA WITHOUT OBSTRUCTION 03/07/2019 [facility] Ot M06.9 RHEUMATOID ARTHRITIS, UNSPECIFIED 03/07/2019 [facility] Miriam Ot M81.0 AGE- RELATED OSTEOPOROSIS W/O CURRENT PAT 03/07/2019 MELINDA TRISTINA Miriam Ot N39.0 URINARY TRACT INFECTION, SITE NOT SPECIF 03/07/2019 MELINDA LORENA LEDEZMA Ot R19.7 DIARRHEA, UNSPECIFIED 03/07/2019 MELINDA TRISTIN LEDEZMAA Miriam Ot Z87.01 PERSONAL HISTORY OF PNEUMONIA (RECURRENT 03/07/2019 MELINDA LORENA Ot Z87.19 PERSONAL HISTORY OF OTHER DISEASES OF 03/07/2019 MELINDA DOLORENA Ot Z87.891 PERSONAL HISTORY OF NICOTINE DEPENDENCE 03/07/2019 LORENA LAWRENCE DO Ot Z88.2 ALLERGY STATUS TO SULFONAMIDES STATUS 03/07/2019 LORENA LAWRENCE DO Ot Z90.49 ACQUIRED ABSENCE OF OTHER SPECIFIED PART 03/07/2019 LORENA LAWRENCE DO Ot Z90.710 ACQUIRED ABSENCE OF BOTH CERVIX AND UTER 03/07/2019 LORENA LAWRENCE DO Ot Z90.89 ACQUIRED ABSENCE OF OTHER ORGANS 03/07/2019 LORENA LAWRENCE DO Ot Z98.890 OTHER SPECIFIED POSTPROCEDURAL STATES 05/02/2019 Gianni Gibson W 714.0 RHEUMATOID ARTHRITIS 05/02/2019 Gianni Gibson W M06.041 RHEUMATOID ARTHRITIS WITHOUT RHEUMATOID FACTOR, RIGHT HAND 05/05/2019 GISELA HIGGINBOTHAM W 682.6 CELLULITIS AND ABSCESS OF LEG, EXCEPT FOOT 05/05/2019 GISELA HIGGINBOTHAM W L03.1 16 CELLULITIS OF LEFT LOWER LIMB 05/10/2019 LANI SHIPLEY APRN W 346 .90 MIGRAINE, UNSPECIFIED, WITHOUT MENTION OF INTRACTABLE MIGRAINE, WITHOUT MENTION OF STATUS MIGRAINOSUS 05/10/2019 LANI SHIPLEY APRN W G43.909 MIGRAINE, UNSP, NOT INTRACTABLE, WITHOUT STATUS MIGRAI NOSUS 05/10/2019 LION ESCALANTE, YURI Ot K52.839 MICROSCOPIC COLITIS, UNSPECIFIED 05/10/2019 AMPARO ESCALANTE, RENU Bañuelos Ot M25.5 51 PAIN IN RIGHT HIP 05/10/2019 AMPARO ESCALANTE, RENU Bañuelos Ot 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, LUMBAR REGIO 05/10/2019 AMPARO ESCALANTE, RENU B Ot 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, 05/10/2019 Ot J44.9 POUND KEEPER JERMAINE OBSTRUCTIVE PULMONARY DISEASE, U 05/10/2019 Ot K44.9 DIAP HRAGMATIC HERNIA WITHOUT OBSTRUCTION 05/10/2019 Ot Z87.891 PE RSONAL HISTORY OF NICOTINE DEPENDENCE 05/10/2019 DEONNA MOBLEY APRN Ot E03 .9 HYPOTHYROIDISM, UNSPECIFIED 05/10/2019 DEONNA MOBLEY APRN Ot I10 ESSENTIAL (PRIMARY) HYPERTENSION 05/10/2019 DEONNA MOBLEY APRN Ot M06 .9 RHEUMATOID ARTHRITIS, UNSPECIFIED 05/10/2019 DEONNA MOBLEY APRN Ot M79 .7 FIBROMYALGIA 05/10/2019 DEONNA MOBLEY APRN Ot M81 .0 AGE-RELATED OSTEOPOROSIS W/O CURRENT PAT 05/10/2019 DEONNA MOBLEY APRN Ot R51 HEADACHE 05/10/2019 DEONNA MOBLEY APRN Ot Z86.69 PERSONAL HISTORY OF DIS OF THE NERVOUS S 05/10/2019 DEONNA MOBLEY APRN Ot Z87.01 PERSONAL HISTORY OF PNEUMONIA (RECURRENT 05/10/2019 DEONNA MOBLEY APRN Ot Z87.19 PERSONAL HISTORY OF OTHER DISEASES OF TH 05/10/2019 DEONNA MOBLEY APRN Ot Z87.891 PERSONAL HISTORY OF NICOTINE DEPENDENCE 05/10/2019 DEONNA MOBLEY APRN Ot Z88 .2 ALLERGY STATUS TO SULFONAMIDES STATUS 05/11/2019 LORENA LAWRENCE DO Ot E03.9 HYPOTHYROIDISM, UNSPECIFIED 05/11/2019 MELINDA TRISTIN LEDEZMAA K Ot E78.00 PURE HYPERCHOLESTEROLEMIA, UNSPECIFIED 05/11/2019 MELINDA LORENA LEDEZMA K Ot F32.9 MAJOR DEPRESSIVE DISORDER, SINGLE EPISOD 05/11/2019 MELINDA LORENA LEDEZMA Ot F41.9 ANXIETY DISORDER, UNSPECIFIED 05/11/2019 MELINDA TRISTIN LEDEZMAA K Ot H02.402 UNSPECIFIED PTOSIS OF LEFT EYELID 05/11/2019 MELINDA TRISTIN LEDEZMAA Miriam Ot H53.9 UNSPECIFIED VISUAL DISTURBANCE 05/11/2019 MELINDA DO LORENA K Ot I10 ESSENTIAL (PRIMARY) HYPERTENSION 05/11/2019 TRISTIN LAWRENCE DOA K Ot J44.9 CHRONIC OBSTRUCTIVE PULMONARY DISEASE, U 05/11/2019 LORENA LAWRENCE DO Ot M06.9 RHEUMATOID ARTHRITIS, UNSPECIFIED 05/11/2019 MELINDA TRISTIN LEDEZMAA K Ot M79.7 FIBROMYALGIA 05/11/2019 MELINDA TRISTIN LEDEZMAA K Ot M81.0 AGE- RELATED OSTEOPOROSIS W/O CURRENT PAT 05/11/2019 LORENA LAWRENCE DO Ot R51 HEADACHE 05/11/2019 MELINDA TRISTIN LEDEZMAA K Ot Z83.49 FAMILY HISTORY OF ENDO, NUTRITIONAL AND 05/11/2019 MELINDA DO LORENA K Ot Z86.69 PERSONAL HISTORY OF DIS OF THE NERVOUS S 05/11/2019 LORENA LAWRENCE DO Ot Z87.01 PERSONAL HISTORY OF PNEUMONIA (RECURRENT 05/11/2019 MELINDA LORENA LEDEZMA Ot Z87.891 PERSONAL HISTORY OF NICOTINE DEPENDENCE 05/11/2019 MELINDA LEDEZMALORENA Ot Z88.2 ALLERGY STATUS TO SULFONAMIDES STATUS 05/11/2019 MELINDA LEDEZMALORENA Ot Z90.710 ACQUIRED ABSENCE OF BOTH CERVIX AND UTER 05/15/2019 DEONNA MOBLEY APRN Ot E03 .9 HYPOTHYROIDISM, UNSPECIFIED 05/15/2019 DEONNA MOBLEY APRN Ot I10 ESSENTIAL (PRIMARY) HYPERTENSION 05/15/2019 DEONNA MOBLEY APRN Ot M06 .9 RHEUMATOID ARTHRITIS, UNSPECIFIED 05/15/2019 DEONNA MOBLEY APRN Ot M79 .7 FIBROMYALGIA 05/15/2019 DEONNA MOBLEY APRN Ot M81 .0 AGE-RELATED OSTEOPOROSIS W/O CURRENT PAT 05/15/2019 DEONNA [...] NICOTINE DEPENDENCE 05/15/2019 DEONNA MOBLEY APRN Ot Z88 .2 ALLERGY STATUS TO SULFONAMIDES STATUS 05/17/2019 MELINDA LORENA Ot E03.9 HYPOTHYROIDISM, UNSPECIFIED 05/17/2019 LORENA LAWRENCE DO Ot E78.00 PURE HYPERCHOLESTEROLEMIA, UNSPECIFIED 05/17/2019 LORENA LAWRENCE DO Ot F32.9 MAJOR DEPRESSIVE DISORDER, SINGLE EPISOD 05/17/2019 LORENA LAWRENCE DO Ot F41.9 ANXIETY DISORDER, UNSPECIFIED 05/17/2019 LORENA LAWRENCE DO Ot H02.402 UNSPECIFIED PTOSIS OF LEFT EYELID 05/17/2019 LORENA LAWRENCE DO Ot H53.9 UNSPECIFIED VISUAL DISTURBANCE 05/17/2019 TRISTIN LAWRENCE DOA K Ot I10 ESSENTIAL (PRIMARY) HYPERTENSION 05/17/2019 LORENA LAWRENCE DO Ot J44.9 CHRONIC OBSTRUCTIVE PULMONARY DISEASE, U 05/17/2019 LORENA LAWRENCE DO Ot M06.9 RHEUMATOID ARTHRITIS, UNSPECIFIED 05/17/2019 MELINDA LEDEZMA LORENA K Ot M79.7 FIBROMYALGIA 05/17/2019 MELINDA LEDEZMA LORENA Miriam Ot M81.0 AGE- RELATED OSTEOPOROSIS W/O CURRENT PAT 05/17/2019 MELINDA LEDEZMALORENA Ot R51 HEADACHE 05/17/2019 MELINDA LEDEZMA LORENA Miriam Ot Z83.49 FAMILY HISTORY OF ENDO, NUTRITIONAL AND 05/17/2019 MELINDA LEDEZMA LORENA Miriam Ot Z86.69 PERSONAL HISTORY OF DIS OF THE NERVOUS S 05/17/2019 MELINDA LEDEZMALORENA Ot Z87.01 PERSONAL HISTORY OF PNEUMONIA (RECURRENT 05/17/2019 MELINDA LEDEZMA LORENA Miriam Ot Z87.891 PERSONAL HISTORY OF NICOTINE DEPENDENCE 05/17/2019 MELINDA LEDEZMA LORENA Miriam Ot Z88.2 ALLERGY STATUS TO SULFONAMIDES STATUS 05/17/2019 MELINDA LEDEZMATRISTINA Miriam Ot Z90.710 ACQUIRED ABSENCE OF BOTH CERVIX AND UTER 05/17/2019 KIRSTIN GARZA MD Ot E03. 9 HYPOTHYROIDISM, UNSPECIFIED 05/17/2019 KIRSTIN GARZA MD Ot E78. 00 PURE HYPERCHOLESTEROLEMIA, UNSPECIFIED 05/17/2019 KIRSTIN GARZA MD Ot F32. 9 MAJOR DEPRESSIVE DISORDER, SINGLE EPISOD 05/17/2019 KIRSTIN GARZA MD Ot F41. 9 ANXIETY DISORDER, UNSPECIFIED 05/17/2019 KIRSTIN GARZA MD Ot H65. 93 UNSPECIFIED NONSUPPURATIVE OTITIS MEDIA, 05/17/2019 KIRSTIN GARZA MD Ot H83. 02 LABYRINTHITIS, LEFT EAR 05/17/2019 KIRSTIN GARZA MD Ot I10 ESSENTIAL (PRIMARY) HYPERTENSION 05/17/2019 KIRSTIN GARZA MD Ot J06. 9 ACUTE UPPER RESPIRATORY INFECTION, UNSPE 05/17/2019 KIRSTIN GARZA MD Ot J44. 9 CHRONIC OBSTRUCTIVE PULMONARY DISEASE, U 05/17/2019 KIRSTIN GARZA MD Ot M06. 9 RHEUMATOID ARTHRITIS, UNSPECIFIED 05/17/2019 KIRSTIN GARZA MD Ot M79. 7 FIBROMYALGIA 05/17/2019 KIRSTIN GARZA MD Ot R42 DIZZINESS AND GIDDINESS 05/17/2019 KIRSTIN GARZA MD Ot Z87. 01 PERSONAL HISTORY OF PNEUMONIA (RECURRENT 05/17/2019 KIRSTIN GARZA MD, Ot Z87. 19 PERSONAL HISTORY OF OTHER DISEASES OF 05/17/2019 KIRSTIN GARZA MD, Ot Z88. 2 ALLERGY STATUS TO SULFONAMIDES STATUS 05/17/2019 KIRSTIN GARZA MD, Ot Z90.710 ACQUIRED ABSENCE OF BOTH CERVIX AND UTER 05/22/2019 MELINDA DO, LORENA K Ot E03.9 HYPOTHYROIDISM, UNSPECIFIED 05/22/2019 MELINDA DO, LORENA K Ot E78.00 PURE HYPERCHOLESTEROLEMIA, UNSPECIFIED 05/22/2019 MELINDA DO, LORENA K Ot F32.9 MAJOR DEPRESSIVE DISORDER, SINGLE EPISOD 05/22/2019 MELINDA DO, LORENA K Ot F41.9 ANXIETY DISORDER, UNSPECIFIED 05/22/2019 MELINDA DO, LORENA K Ot I10 ESSENTIAL (PRIMARY) HYPERTENSION 05/22/2019 MELINDA DO, LORENA K Ot J44.9 CHRONIC OBSTRUCTIVE PULMONARY DISEASE, U 05/22/2019 MELINDA DO, LORENA K Ot K21.9 GASTRO-ESOPHAGEAL REFLUX DISEASE WITHOUT 05/22/2019 MELINDA DO, LORENA K Ot K44.9 DIAPHRAGMATIC HERNIA WITHOUT OBSTRUCTION 05/22/2019 MELINDA DO, LORENA K Ot K58.9 IRRITABLE BOWEL SYNDROME WITHOUT DIARRHE 05/22/2019 MELINDA DO, LORENA K Ot K59.00 CONSTIPATION, UNSPECIFIED 05/22/2019 MELINDA DO, LORENA K Ot M06.9 RHEUMATOID ARTHRITIS, UNSPECIFIED 05/22/2019 MELINDA DO, LORENA K Ot M79.7 FIBROMYALGIA 05/22/2019 MELINDA DO, LORENA K Ot M81.0 AGE- RELATED OSTEOPOROSIS W/O CURRENT PAT 05/22/2019 MELINDA DO LORENA K Ot R10.9 UNSPECIFIED ABDOMINAL PAIN 05/22/2019 MELINDA DO LORENA K Ot Z87.01 PERSONAL HISTORY OF PNEUMONIA (RECURRENT 05/22/2019 MELINDA DO LORENA K Ot Z87.19 PERSONAL HISTORY OF OTHER DISEASES OF 05/22/2019 MELINDA DO LORENA K Ot Z87.891 PERSONAL HISTORY OF NICOTINE DEPENDENCE 05/22/2019 MELINDA DO LORENA K Ot Z88.2 ALLERGY STATUS TO SULFONAMIDES STATUS 05/22/2019 MELINDA DOTRISTINA K Ot Z90.710 ACQUIRED ABSENCE OF BOTH CERVIX AND UTER 05/22/2019 KIRSTIN GARZA MD Ot E03. 9 HYPOTHYROIDISM, UNSPECIFIED 05/22/2019 KIRSTIN GARZA MD Ot E78. 00 PURE HYPERCHOLESTEROLEMIA, UNSPECIFIED 05/22/2019 KIRSTIN GARZA MD Ot F32. 9 MAJOR DEPRESSIVE DISORDER, SINGLE EPISOD 05/22/2019 KIRSTIN GARZA MD Ot F41. 9 ANXIETY DISORDER, UNSPECIFIED 05/22/2019 KIRSTIN GARZA MD Ot H65. 93 UNSPECIFIED NONSUPPURATIVE OTITIS MEDIA, 05/22/2019 KIRSTIN GARZA MD Ot H83. 02 LABYRINTHITIS, LEFT EAR 05/22/2019 KIRSTIN GARZA MD Ot I10 ESSENTIAL (PRIMARY) HYPERTENSION 05/22/2019 KIRSTIN GARZA MD Ot J06. 9 ACUTE UPPER RESPIRATORY INFECTION, UNSPE 05/22/2019 KIRSTIN GARZA MD Ot J44. 9 CHRONIC OBSTRUCTIVE PULMONARY DISEASE, U 05/22/2019 KIRSTIN GARZA MD Ot M06. 9 RHEUMATOID ARTHRITIS, UNSPECIFIED 05/22/2019 KIRSTIN GARZA MD Ot M79. 7 FIBROMYALGIA 05/22/2019 KIRSTIN GARZA MD Ot R42 DIZZINESS AND GIDDINESS 05/22/2019 KIRSTIN GARZA MD Ot Z87. 01 PERSONAL HISTORY OF PNEUMONIA (RECURRENT 05/22/2019 KIRSTIN GARZA MD Ot Z87. 19 PERSONAL HISTORY OF OTHER DISEASES OF TH 05/22/2019 KIRSTIN GARZA MD Ot Z88. 2 ALLERGY STATUS TO SULFONAMIDES STATUS 05/22/2019 KIRSTIN GARZA MD Ot Z90.710 ACQUIRED ABSENCE OF BOTH CERVIX AND UTER 05/24/2019 KIRSTIN LORENZO MD Ot E03.9 HYPOTHYROIDISM, UNSPECIFIED 05/24/2019 KIRSTIN LORENZO MD Ot E78.00 PURE HYPERCHOLESTEROLEMIA, UNSPECIFIED 05/24/2019 KIRSTIN LORENZO MD Ot F32.9 MAJOR DEPRESSIVE DISORDER, SINGLE EPISOD 05/24/2019 KIRSTIN LORENZO MD Ot F41.9 ANXIETY DISORDER, UNSPECIFIED 05/24/2019 KIRSTIN LORENZO MD Ot G43.909 MIGRAINE, UNSP, NOT INTRACTABLE, WITHOUT 05/24/2019 KIRSTIN LORENZO MD Ot I10 ESSENTIAL (PRIMARY) HYPERTENSION 05/24/2019 MAURA ESCALANTE, KIRSTIN Arauz Ot J44.9 CHRONIC OBSTRUCTIVE PULMONARY DISEASE, U 05/24/2019 KIRSTIN LORENZO MD, Ot K21.9 GASTRO-ESOPHAGEAL REFLUX DISEASE WITHOUT 05/24/2019 KIRSTIN LORENZO MD, Ot K58.9 IRRITABLE BOWEL SYNDROME WITHOUT DIARRHE 05/24/2019 IKRSTIN LORENZO MD, Ot K59.00 CONSTIPATION, UNSPECIFIED 05/24/2019 KIRSTIN LORENZO MD Ot K62.5 HEMORRHAGE OF ANUS AND RECTUM 05/24/2019 KIRSTIN LORENZO MD, Ot M06.9 RHEUMATOID ARTHRITIS, UNSPECIFIED 05/24/2019 KIRSTIN LORENZO MD Ot M79.7 FIBROMYALGIA 05/24/2019 KIRSTIN LORENZO MD, Ot M81.0 AGE-RELATED OSTEOPOROSIS W/O CURRENT PAT 05/24/2019 KIRSTIN LORENZO MD, Ot Z87.01 PERSONAL HISTORY OF PNEUMONIA (RECURRENT 05/24/2019 MAURA ESCALANTE, KIRSTIN Arauz Ot Z87.19 PERSONAL HISTORY OF OTHER DISEASES OF TH 05/24/2019 KIRSTIN LORENZO MD, Ot Z87.891 PERSONAL HISTORY OF NICOTINE DEPENDENCE 05/24/2019 MAURA ESCALANTE, KIRSTIN Arauz Ot Z88.2 ALLERGY STATUS TO SULFONAMIDES STATUS 05/24/2019 KIRSTIN LORENZO MD Ot Z90.710 ACQUIRED ABSENCE OF BOTH CERVIX AND UTER 05/28/2019 TRISTIN LAWRENCE DOA K Ot E03.9 HYPOTHYROIDISM, UNSPECIFIED 05/28/2019 MEILNDA LEDEZMA LORENA K Ot E78.00 PURE HYPERCHOLESTEROLEMIA, UNSPECIFIED 05/28/2019 MELINDA DO LORENA K Ot F32.9 MAJOR DEPRESSIVE DISORDER, SINGLE EPISOD 05/28/2019 TRISTIN LAWRENCE DOA K Ot F41.9 ANXIETY DISORDER, UNSPECIFIED 05/28/2019 MELINDA DO LORENA K Ot I10 ESSENTIAL (PRIMARY) HYPERTENSION 05/28/2019 TRISTIN LAWRENCE DOA K Ot J44.9 CHRONIC OBSTRUCTIVE PULMONARY DISEASE, U 05/28/2019 TRISTIN LAWRENCE DOA K Ot K21.9 GASTRO-ESOPHAGEAL REFLUX DISEASE WITHOUT 05/28/2019 MELINDA LORENA LEDEZMA Ot K44.9 DIAPHRAGMATIC HERNIA WITHOUT OBSTRUCTION 05/28/2019 CENTENARY LORENA LEDEZMA Ot K58.9 IRRITABLE BOWEL SYNDROME WITHOUT DIARRHE 05/28/2019 CENTENARY L[place]NA LEDEZMA Ot K59.00 CONSTIPATION, UNSPECIFIED 05/28/2019 CENTENARY LORENA LEDEZMA Ot M06.9 RHEUMATOID ARTHRITIS, UNSPECIFIED 05/28/2019 CENTENARY LORENA LEDEZMA Ot M79.7 FIBROMYALGIA 05/28/2019 CENTENARY LORENA LEDEZMA Ot M81.0 AGE- RELATED OSTEOPOROSIS W/O CURRENT PAT 05/28/2019 CENTENARY LORENA LEDEZMA Ot R10.9 UNSPECIFIED ABDOMINAL PAIN 05/28/2019 MELINDA LORENA LEDEZMA Ot Z87.01 PERSONAL HISTORY OF PNEUMONIA (RECURRENT 05/28/2019 MELINDA LORENA Pineda Ot Z87.19 PERSONAL HISTORY OF OTHER DISEASES OF TH 05/28/2019 MELINDA LORENA Pineda Ot Z87.891 PERSONAL HISTORY OF NICOTINE DEPENDENCE 05/28/2019 [facility] LORENA Pineda Ot Z88.2 ALLERGY STATUS TO SULFONAMIDES STATUS 05/28/2019 CENTENARY LORENA Pineda Ot Z90.710 ACQUIRED ABSENCE OF BOTH CERVIX AND UTER 06/10/2019 MAC MADDEN MD Ot Z12.31 ENCNTR SCREEN MAMMOGRAM FOR MALIGNANT NE 06/12/2019 MAC MADDEN MD Ot Z12.31 ENCNTR SCREEN MAMMOGRAM FOR MALIGNANT NE 06/14/2019 ELIEZER LOPEZ MD Ot E03.9 HYPOTHYROIDISM, UNSPECIFIED 06/14/2019 ELIEZER LOPEZ MD Ot E78.00 PURE HYPERCHOLESTEROLEMIA, UNSPECIFIED 06/14/2019 ELIEZER LOPEZ MD Ot F31.9 BIPOLAR DISORDER, UNSPECIFIED 06/14/2019 ELIEZER LOPEZ MD Ot F41.9 ANXIETY DISORDER, UNSPECIFIED 06/14/2019 ELIEZER LOPEZ MD Ot G62.9 POLYNEUROPATHY, UNSPECIFIED 06/14/2019 ELIEZER LOPEZ MD Ot I10 ESSENTIAL (PRIMARY) HYPERTENSION 06/14/2019 ELIEZER LOPEZ MD Ot J44.9 CHRONIC OBSTRUCTIVE PULMONARY DISEASE, U 06/14/2019 ELIEZER LOPEZ MD Ot M06.9 RHEUMATOID ARTHRITIS, UNSPECIFIED 06/14/2019 ELIEZER LOPEZ MD, Ot M79.7 FIBROMYALGIA 06/14/2019 ELIEZER LOPEZ MD, Ot M81.0 AGE-RELATED OSTEOPOROSIS W/O CURRENT PAT 06/14/2019 ELIEZER LOPEZ MD, Ot R11.2 NAUSEA WITH VOMITING, UNSPECIFIED 06/14/2019 ELIEZER LOPEZ MD, Ot R19.7 DIARRHEA, UNSPECIFIED 06/14/2019 ELIEZER LOPEZ MD, Ot T42.6X5A ADVERSE EFFECT OF ANTIEPILEPTIC AND SED- 06/14/2019 ELIEZER LOPEZ MD, Ot Z85.41 PERSONAL HISTORY OF MALIGNANT NEOPLASM O 06/14/2019 ELIEZER LOPEZ MD, Ot Z87.01 PERSONAL HISTORY OF PNEUMONIA (RECURRENT 06/14/2019 ELIEZER LOPEZ MD, Ot Z87.19 PERSONAL HISTORY OF OTHER DISEASES OF TH 06/14/2019 ELIEZER LOPEZ MD, Ot Z87.891 PERSONAL HISTORY OF NICOTINE DEPENDENCE 06/14/2019 ELIEZER LOPEZ MD, Ot Z88.2 ALLERGY STATUS TO SULFONAMIDES STATUS 06/14/2019 ELIEZER LOPEZ MD, Ot Z90.710 ACQUIRED ABSENCE OF BOTH CERVIX AND UTER 06/14/2019 ELIEZER LOPEZ MD Ot Z90.89 ACQUIRED ABSENCE OF OTHER ORGANS 06/21/2019 YURI SEYMOUR MD Ot K52.839 MICROSCOPIC COLITIS, UNSPECIFIED 06/21/2019 RENU CHRISTENSEN MD Ot M25.5 51 PAIN IN RIGHT HIP 06/21/2019 RENU CHRISTENSEN MD Ot 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, LUMBAR REGIO 06/21/2019 RENU CHRISTENSEN MD Ot 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, 06/21/2019 Ot J44.9 POUND KEEPER JERMAINE OBSTRUCTIVE PULMONARY DISEASE, U 06/21/2019 Ot K44.9 DIAP HRAGMATIC HERNIA WITHOUT OBSTRUCTION 06/21/2019 Ot Z87.891 PE RSONAL HISTORY OF NICOTINE DEPENDENCE 06/21/2019 ROZINA ESCALANTE, MAC Pineda Ot Z12.31 ENCNTR SCREEN MAMMOGRAM FOR MALIGNANT NE 06/23/2019 YURI SEYMOUR MD, Ot K52.839 MICROSCOPIC COLITIS, UNSPECIFIED 06/23/2019 AFANEH MD, RENU B Ot M25.5 51 PAIN IN RIGHT HIP 06/23/2019 RENU CHRISTENSEN MD Ot 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, LUMBAR REGIO 06/23/2019 RENU CHRISTENSEN MD Ot 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, 06/23/2019 Ot J44.9 POUND KEEPER JERMAINE OBSTRUCTIVE PULMONARY DISEASE, U 06/23/2019 Ot K44.9 DIAP HRAGMATIC HERNIA WITHOUT OBSTRUCTION 06/23/2019 Ot Z87.891 PE RSONAL HISTORY OF NICOTINE DEPENDENCE 06/23/2019 ROZINA ESCALANTE, MAC Pineda Ot Z12.31 ENCNTR SCREEN MAMMOGRAM FOR MALIGNANT NE 06/27/2019 HALEY MCCLAIN MD Ot G43.909 MIGRAINE, UNSP, NOT INTRACTABLE, WITHOUT 07/08/2019 Ot 428.0 07/08/2019 Ot 782.3 07/08/2019 Ot 428.0 07/08/2019 Ot 729.5 PAIN IN LIMB 07/08/2019 Ot 782.3 EDEMA 07/08/[address] PAIN NOS 07/08/2019 Ot 729.5 PAIN IN LIMB 07/08/2019 Ot 782.3 EDEMA 07/08/[address] PAIN NOS 07/08/2019 Ot 729.81 SWE LLING OF LIMB 07/08/2019 Ot 825.0 FRAC TURE CALCANEUS-CLOSE 07/08/2019 Ot E000.8 OTH ER EXTERNAL CAUSE STATUS 07/08/2019 Ot E928.9 ACC IDENT NOS 07/08/2019 Ot 787.91 MINOO RRHEA 07/16/2019 HALEY MCCLAIN MD Ot G43.909 MIGRAINE, UNSP, NOT INTRACTABLE, WITHOUT 09/17/2019 Ot 428.0 09/17/2019 Ot 782.3 09/17/2019 Ot 428.0 09/17/2019 Ot 729.5 PAIN IN LIMB 09/17/2019 Ot 782.3 EDEMA 09/17/[address] PAIN NOS 09/17/2019 Ot 729.5 PAIN IN LIMB 09/17/2019 Ot 782.3 EDEMA 09/17/[address] PAIN NOS 09/17/2019 Ot 729.81 SWE LLING OF LIMB 09/17/2019 Ot 825.0 FRAC TURE CALCANEUS-CLOSE 09/17/2019 Ot E000.8 OT ER EXTERNAL CAUSE STATUS 09/17/2019 Ot E928.9 ACC IDENT NOS 09/17/2019 Ot 787.91 MINOO RRHEA 09/17/2019 YURI SEYMOUR MD Ot K52.839 MICROSCOPIC COLITIS, UNSPECIFIED 09/17/2019 RENU CHRISTENSEN MD Ot M25.5 51 PAIN IN RIGHT HIP 09/17/2019 RENU CHRISTENSEN MD Ot 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, LUMBAR REGIO 09/17/2019 RENU CHRISTENSEN MD Ot 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, 09/17/2019 Ot J44.9 POUND KEEPER JERMAINE OBSTRUCTIVE PULMONARY DISEASE, U 09/17/2019 Ot K44.9 DIAP HRAGMATIC HERNIA WITHOUT OBSTRUCTION 09/17/2019 Ot Z87.891 PE RSONAL HISTORY OF NICOTINE DEPENDENCE 09/17/2019 MAC MADDEN MD Ot Z12.31 ENCNTR SCREEN MAMMOGRAM FOR MALIGNANT NE 09/17/2019 HALEY MCCLAIN MD Ot G43.909 MIGRAINE, UNSP, NOT INTRACTABLE, WITHOUT 10/22/2019 YURI SEMYOUR MD Ot K52.839 MICROSCOPIC COLITIS, UNSPECIFIED 10/22/2019 RENU CHRISTENSEN MD Ot M25.5 51 PAIN IN RIGHT HIP 10/22/2019 RENU CHRISTENSEN MD Ot 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, LUMBAR REGIO 10/22/2019 RENU CHRISTENSEN MD Ot 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, 10/22/2019 Ot J44.9 POUND KEEPER JERMAINE OBSTRUCTIVE PULMONARY DISEASE, U 10/22/2019 Ot K44.9 DIAP HRAGMATIC HERNIA WITHOUT OBSTRUCTION 10/22/2019 Ot Z87.891 PE RSONAL HISTORY OF NICOTINE DEPENDENCE 10/22/2019 MAC MADDEN MD Ot Z12.31 ENCNTR SCREEN MAMMOGRAM FOR MALIGNANT NE 10/22/2019 HALEY MCCLAIN MD Ot G43.909 MIGRAINE, UNSP, NOT INTRACTABLE, WITHOUT 10/22/2019 YURI SEYMOUR MD Ot K52.839 MICROSCOPIC COLITIS, UNSPECIFIED 10/22/2019 RENU CHRISTENSEN MD Ot M25.5 51 PAIN IN RIGHT HIP 10/22/2019 RENU CHRISTENSEN MD Ot 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, LUMBAR REGIO 10/22/2019 RENU CHRISTENSEN MD Ot 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, 10/22/2019 Ot J44.9 POUND KEEPER JERMAINE OBSTRUCTIVE PULMONARY DISEASE, U 10/22/2019 Ot K44.9 DIAP HRAGMATIC HERNIA WITHOUT OBSTRUCTION 10/22/2019 Ot Z87.891 PE RSONAL HISTORY OF NICOTINE DEPENDENCE 10/22/2019 ROZINA ESCALANTE, MAC Pineda Ot Z12.31 ENCNTR SCREEN MAMMOGRAM FOR MALIGNANT NE 10/22/2019 SARAHI ESCALANTE, HALEY Pineda Ot G43.909 MIGRAINE, UNSP, NOT INTRACTABLE, WITHOUT 10/22/2019 DEONNA MOBLEY APRN Ot E03 .9 HYPOTHYROIDISM, UNSPECIFIED 10/22/2019 DEONNA MOBLEY APRN Ot E78.00 PURE HYPERCHOLESTEROLEMIA, UNSPECIFIED 10/22/2019 DEONNA MOBLEY APRN Ot F31 .9 BIPOLAR DISORDER, UNSPECIFIED 10/22/2019 DEONNA MOBLEY APRN Ot F41 .9 ANXIETY DISORDER, UNSPECIFIED 10/22/2019 DEONNA MOBLEY APRN Ot G62 .9 POLYNEUROPATHY, UNSPECIFIED 10/22/2019 DEONNA MOBLEY APRN Ot I10 ESSENTIAL (PRIMARY) HYPERTENSION 10/22/2019 DEONNA MOBLEY APRN Ot J44 .9 CHRONIC OBSTRUCTIVE PULMONARY DISEASE, U 10/22/2019 DEONNA MOBLEY APRN Ot M06 .9 RHEUMATOID ARTHRITIS, UNSPECIFIED 10/22/2019 DEONNA MOBLEY APRN Ot M79 .7 FIBROMYALGIA 10/22/2019 DEONNA MOBLEY APRN Ot S09.90XA UNSPECIFIED INJURY OF HEAD, INITIAL ENCO 10/22/2019 DEONNA MOBLEY APRN Ot S16.1XXA STRAIN OF MUSCLE, FASCIA AND TENDON AT N 10/22/2019 DEONNA MOBLEY APRN Ot W01.10XA FALL SAME LEV FROM SLIP/TRIP W STRIKE AG 10/22/2019 DEONNA MOBLEY APRN Ot Y92.[address] IN [facility] NON-INSTITUT (PRIVATE 10/22/2019 DEONNA MOBLEY APRN Ot Z79.52 MCC (CURRENT) USE OF SYSTEMIC STER 10/22/2019 DEONNA MOBLEY APRN Ot Z85.41 PERSONAL HISTORY OF MALIGNANT NEOPLASM O 10/22/2019 DEONNA MOBLEY APRN Ot Z87.891 PERSONAL HISTORY OF NICOTINE DEPENDENCE 10/22/2019 DEONNA MOBLEY APRN Ot Z88 .2 ALLERGY STATUS TO SULFONAMIDES STATUS 10/22/2019 DEONNA MOBLEY APRN Ot Z90.710 ACQUIRED ABSENCE OF BOTH CERVIX AND UTER 10/22/2019 DEONNA MOBLEY APRN Ot Z90.89 ACQUIRED ABSENCE OF OTHER ORGANS 10/24/2019 DEONNA MOBLEY APRN Ot E03 .9 HYPOTHYROIDISM, UNSPECIFIED 10/24/2019 DEONNA MOBLEY APRN Ot E78.00 PURE HYPERCHOLESTEROLEMIA, UNSPECIFIED 10/24/2019 DEONNA MOBLEY APRN Ot F31 .9 BIPOLAR DISORDER, UNSPECIFIED 10/24/2019 DEONNA MOBLEY APRN Ot F41 .9 ANXIETY DISORDER, UNSPECIFIED 10/24/2019 DEONNA MOBLEY APRN Ot G62 .9 POLYNEUROPATHY, UNSPECIFIED 10/24/2019 DEONNA MOBLEY APRN Ot I10 ESSENTIAL (PRIMARY) HYPERTENSION 10/24/2019 DEONNA MOBLEY APRN, Ot J44 .9 CHRONIC OBSTRUCTIVE PULMONARY DISEASE, U 10/24/2019 DEONNA MOBLEY APRN Ot M06 .9 RHEUMATOID ARTHRITIS, UNSPECIFIED 10/24/2019 DEONNA MOBLEY APRN Ot M79 .7 FIBROMYALGIA 10/24/2019 DEONNA MOBLEY APRN Ot S09.90XA UNSPECIFIED INJURY OF HEAD, INITIAL ENCO 10/24/2019 DEONNA MOBLEY APRN Ot S16.1XXA STRAIN OF MUSCLE, FASCIA AND TENDON AT N 10/24/2019 DEONNA MOBLEY APRN Ot W01.10XA FALL SAME LEV FROM SLIP/TRIP W STRIKE AG 10/24/2019 DEONNA MOBLEY APRN Ot Y92.009 [facility] PL[facility] IN [facility] NON-INSTITUT (PRIVATE 10/24/2019 DEONNA MOBLEY APRN Ot 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 9 HYPOTHYROIDISM, UNSPECIFIED 12/24/2019 GREG ESCALANTE, KIRSTIN Villeda Ot E78. 00 PURE HYPERCHOLESTEROLEMIA, UNSPECIFIED 12/24/2019 GREG ESCALANTE, KIRSTIN J Ot F31. 9 BIPOLAR DISORDER, UNSPECIFIED 12/24/2019 GREG ESCALANTE, KIRSTIN J Ot F41. 9 ANXIETY DISORDER, UNSPECIFIED 12/24/2019 GREG ESCALANTE, KIRSTIN Villeda Ot G62. 9 POLYNEUROPATHY, UNSPECIFIED 12/24/2019 GREG ESCALANTE, KIRSTIN Villeda Ot I10 ESSENTIAL (PRIMARY) HYPERTENSION 12/24/2019 KIRSTIN GARZA MD Ot J44. 9 CHRONIC OBSTRUCTIVE PULMONARY DISEASE, U 12/24/2019 KIRSTIN GARZA MD Ot M06. 9 RHEUMATOID ARTHRITIS, UNSPECIFIED 12/24/2019 GREG ESCALANTE, KIRSTIN Villeda Ot M79. 7 FIBROMYALGIA 12/24/2019 KIRSTIN GARZA MD Ot R22. 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 2 ALLERGY STATUS TO SULFONAMIDES STATUS 12/25/2019 DEONNA MOBLEY APRN Ot E03 .9 HYPOTHYROIDISM, UNSPECIFIED 12/25/2019 DEONNA MOBLEY APRN Ot F31 .9 BIPOLAR DISORDER, UNSPECIFIED 12/25/2019 DEONNA MOBLEY APRN Ot F41 .9 ANXIETY DISORDER, UNSPECIFIED 12/25/2019 DEONNA MOBLEY APRN Ot I10 ESSENTIAL (PRIMARY) HYPERTENSION 12/25/2019 DEONNA MOBLEY APRN Ot J44 .9 CHRONIC OBSTRUCTIVE PULMONARY DISEASE, U 12/25/2019 DEONNA MOBLEY APRN Ot L53 .9 ERYTHEMATOUS CONDITION, UNSPECIFIED 12/25/2019 DEONNA MOBLEY APRN Ot Z87.891 PERSONAL HISTORY OF NICOTINE DEPENDENCE 12/25/2019 DEONNA MOBLEY APRN Ot Z88 .2 ALLERGY STATUS TO SULFONAMIDES STATUS 12/28/2019 KIRSTIN GARZA MD Ot E03. 9 HYPOTHYROIDISM, UNSPECIFIED 12/28/2019 GREG ESCALANTE, KIRSTIN Villeda Ot E78. 00 PURE HYPERCHOLESTEROLEMIA, UNSPECIFIED 12/28/2019 GREG ESCALANTE, KIRSTIN J Ot F31. 9 BIPOLAR DISORDER, UNSPECIFIED 12/28/2019 GREG ESCALANTE, KIRSTIN Villeda Ot F41. 9 ANXIETY DISORDER, UNSPECIFIED 12/28/2019 GREG ESCALANTE, KIRSTIN Villeda Ot G62. 9 POLYNEUROPATHY, UNSPECIFIED 12/28/2019 GREG ESCALANTE, KIRSTIN Villeda Ot I10 ESSENTIAL (PRIMARY) HYPERTENSION 12/28/2019 GREG ESCALANTE, KIRSTIN Villeda Ot J44. 9 CHRONIC OBSTRUCTIVE PULMONARY DISEASE, U 12/28/2019 RGEG ESCALANTE, KIRSTIN Villeda Ot M06. 9 RHEUMATOID ARTHRITIS, UNSPECIFIED 12/28/2019 GREG ESCALANTE, KIRSTIN Villeda Ot M79. 7 FIBROMYALGIA 12/28/2019 GREG ESCALANTE, KIRSTIN Villeda Ot R22. 0 LOCALIZED SWELLING, MASS AND LUMP, HEAD 12/28/2019 GREG ESCALANTE, KIRSTIN Villeda Ot T78.3XXA ANGIONEUROTIC EDEMA, INITIAL ENCOUNTER 12/28/2019 GREG ESCALANTE, KIRSTIN Villeda Ot Z79. 52 MCC (CURRENT) USE OF SYSTEMIC STER 12/28/2019 KIRSTIN GARZA MD Ot Z87.891 PERSONAL HISTORY OF NICOTINE DEPENDENCE 12/28/2019 GREG ESCALANTE, KIRSTIN Villeda Ot Z88. 2 ALLERGY STATUS TO SULFONAMIDES STATUS 12/29/2019 DEONNA MOBLEY APRN Ot E03 .9 HYPOTHYROIDISM, UNSPECIFIED 12/29/2019 DEONNA MOBLEY APRN Ot F31 .9 BIPOLAR DISORDER, UNSPECIFIED 12/29/2019 DEONNA MOBLEY APRN Ot F41 .9 ANXIETY DISORDER, UNSPECIFIED 12/29/2019 DEONNA MOBLEY APRN Ot I10 ESSENTIAL (PRIMARY) HYPERTENSION 12/29/2019 DEONNA MOBLEY APRN Ot J44 .9 CHRONIC OBSTRUCTIVE PULMONARY DISEASE, U 12/29/2019 DEONNA MOBLEY APRN Ot L53 .9 ERYTHEMATOUS CONDITION, UNSPECIFIED 12/29/2019 DEONNA MOBLEY BULB PLANTER Ot Z87.891 PERSONAL HISTORY OF NICOTINE DEPENDENCE 12/29/2019 DEONNA MOBLEY BULB PLANTER Ot Z88 .2 ALLERGY STATUS TO SULFONAMIDES STATUS 01/06/2020 DEONNA MOBLEY APRN Ot E03 .9 HYPOTHYROIDISM, UNSPECIFIED 01/06/2020 DEONNA MOBLEY APRN Ot E78.00 PURE HYPERCHOLESTEROLEMIA, UNSPECIFIED 01/06/2020 MOBLEY, DEONNA Villeda APRN Ot F31 .9 BIPOLAR DISORDER, UNSPECIFIED 01/06/2020 MOBLEY, DEONNA Villeda APRN Ot F41 .9 ANXIETY DISORDER, UNSPECIFIED 01/06/2020 DEONNA MOBLEY BULB PLANTER Ot I10 ESSENTIAL (PRIMARY) HYPERTENSION 01/06/2020 ITZ, DEONNA Villeda APRN Ot J44 .9 CHRONIC OBSTRUCTIVE PULMONARY DISEASE, U 01/06/2020 DEONNA MOBLEY APRN Ot K62.89 OTHER SPECIFIED DISEASES OF ANUS AND REC 01/06/2020 DEONNA MOBLEY APRN Ot Z79.52 MCC (CURRENT) USE OF SYSTEMIC STER 01/06/2020 DEONNA MOBLEY BULB PLANTER Ot Z85.41 PERSONAL HISTORY OF MALIGNANT NEOPLASM O 01/06/2020 DEONNA MOBLEY BULB PLANTER Ot Z87.891 PERSONAL HISTORY OF NICOTINE DEPENDENCE 01/06/2020 ITZ, DEONNA Villeda BULB PLANTER Ot Z88 .2 ALLERGY STATUS TO SULFONAMIDES STATUS 01/07/2020 EDILSON, BLU BROILER SUPERVISOR Ot E03.9 HYPOTHYROIDISM, UNSPECIFIED 01/07/2020 EDILSON, BLU BROILER SUPERVISOR Ot E78.00 PURE HYPERCHOLESTEROLEMIA, UNSPECIFIED 01/07/2020 EDILSON, BLU BROILER SUPERVISOR Ot F31.9 BIPOLAR DISORDER, UNSPECIFIED 01/07/2020 EDILSON, BLU BROILER SUPERVISOR Ot F41.9 ANXIETY DISORDER, UNSPECIFIED 01/07/2020 EDILSON, BLU BROILER SUPERVISOR Ot I10 ESSENTIAL (PRIMARY) HYPERTENSION 01/07/2020 EDILSON, BLU BROILER SUPERVISOR Ot J44.9 CHRONIC OBSTRUCTIVE PULMONARY DISEASE, U 01/07/2020 EDILSON, BLU BROILER SUPERVISOR Ot M06.9 RHEUMATOID ARTHRITIS, UNSPECIFIED 01/07/2020 EDILSON, BLU BROILER SUPERVISOR Ot M79.89 OTHER SPECIFIED SOFT TISSUE DISORDERS 01/07/2020 EDILSON, BLU BROILER SUPERVISOR Ot Z79.52 MCC (CURRENT) USE OF SYSTEMIC STER 01/07/2020 EDILSON, BLU BROILER SUPERVISOR Ot Z85.41 PERSONAL HISTORY OF MALIGNANT NEOPLASM O 01/07/2020 EDILSON BLU EUN Ot Z87.891 PERSONAL HISTORY OF NICOTINE DEPENDENCE 01/07/2020 BLU WAGGONER Ot Z88.2 ALLERGY STATUS TO SULFONAMIDES STATUS 01/11/2020 STEPH DAILY Ot E03.9 HYPOTHYROIDISM, UNSPECIFIED 01/11/2020 STEPH DAILY Ot E78.00 PURE HYPERCHOLESTEROLEMIA, UNSPECIFIED 01/11/2020 STEPH DAILY Ot E87.6 HYPOKALEMIA 01/11/2020 STEPH DAILY Ot F31.9 BIPOLAR DISORDER, UNSPECIFIED 01/11/2020 STEPH DAILY Ot F41.9 ANXIETY DISORDER, UNSPECIFIED 01/11/2020 STEPH DAILY Ot G89.29 OTHER CHRONIC PAIN 01/11/2020 STEPH DAILY Ot I 10 ESSENTIAL (PRIMARY) HYPERTENSION 01/11/2020 STEPH DAILY Ot J44.9 CHRONIC OBSTRUCTIVE PULMONARY DISEASE, U 01/11/2020 STEPH DAILY Ot M54.2 CERVICALGIA 01/11/2020 STEPH DAILY Ot M54.5 LOW BACK PAIN 01/11/2020 STEPH DAILY Ot R40.2142 COMA SCALE, EYES OPEN, SPONTANEOUS, EMR 01/11/2020 STEPH DAILY Ot R40.2252 COMA SCALE, BEST VERBAL RESPONSE, ORIENT 01/11/2020 STEPH DAILY Ot R40.2362 COMA SCALE, BEST MOTOR RESPONSE, OBEYS C 01/11/2020 STEPH DAILY Ot S09.90XA UNSPECIFIED INJURY OF HEAD, INITIAL ENCO 01/11/2020 STEPH DAILY Ot W18.39XA OTHER FALL ON SAME LEVEL, INITIAL ENCOUN 01/11/2020 STEPH DAILY Ot Y92.[address] IN [facility] ([facility]IVATE 01/11/2020 STEPH DAILY Ot Z85.41 PERSONAL HISTORY OF MALIGNANT NEOPLASM O 01/11/2020 STEPH DAILY Ot Z87.891 PERSONAL HISTORY OF NICOTINE DEPENDENCE 01/11/2020 STEPH DAILY Ot Z88.2 ALLERGY STATUS TO SULFONAMIDES STATUS 01/16/2020 STEPH DAILY Ot E03.9 HYPOTHYROIDISM, UNSPECIFIED 01/16/2020 STEPH DAILY Ot E78.00 PURE HYPERCHOLESTEROLEMIA, UNSPECIFIED 01/16/2020 STEPH DAILY Ot E87.6 HYPOKALEMIA 01/16/2020 STEPH DAILY Ot F31.9 BIPOLAR DISORDER, UNSPECIFIED 01/16/2020 STEPH DAILY Ot F41.9 ANXIETY DISORDER, UNSPECIFIED 01/16/2020 STEPH DAILY Ot G89.29 OTHER CHRONIC PAIN 01/16/2020 STEPH DAILY Ot I 10 ESSENTIAL (PRIMARY) HYPERTENSION 01/16/2020 STEPH DAILY Ot J44.9 CHRONIC OBSTRUCTIVE PULMONARY DISEASE, U 01/16/2020 STEPH DAILY Ot M54.2 CERVICALGIA 01/16/2020 STEPH DAILY Ot M54.5 LOW BACK PAIN 01/16/2020 STEPH DAILY Ot R40.2142 COMA SCALE, EYES OPEN, SPONTANEOUS, EMR 01/16/2020 STEPH DAILY Ot R40.2252 COMA SCALE, BEST VERBAL RESPONSE, ORIENT 01/16/2020 STEPH DAILY Ot R40.2362 COMA SCALE, BEST MOTOR RESPONSE, OBEYS C 01/16/2020 STEPH DAILY Ot S09.90XA UNSPECIFIED INJURY OF HEAD, INITIAL ENCO 01/16/2020 STEPH DAILY Ot W18.39XA OTHER FALL ON SAME LEVEL, INITIAL ENCOUN 01/16/2020 STEPH DAILY Ot Y92.[address] IN [facility] (PRIVATE 01/16/2020 STEPH DAILY Ot Z85.41 PERSONAL HISTORY OF MALIGNANT NEOPLASM O 01/16/2020 STEPH DAILY Ot Z87.891 PERSONAL HISTORY OF NICOTINE DEPENDENCE 01/16/2020 STEPH DAILY Ot Z88.2 ALLERGY STATUS TO SULFONAMIDES STATUS 01/23/2020 STEPH DAILY Ot E03.9 HYPOTHYROIDISM, UNSPECIFIED 01/23/2020 STEPH DAILY Ot E78.00 PURE HYPERCHOLESTEROLEMIA, UNSPECIFIED 01/23/2020 STEPH DAILY Ot E87.6 HYPOKALEMIA 01/23/2020 STEPH DAILY Ot F31.9 BIPOLAR DISORDER, UNSPECIFIED 01/23/2020 STEPH DAILY Ot F41.9 ANXIETY DISORDER, UNSPECIFIED 01/23/2020 STEPH DAILY Ot G89.29 OTHER CHRONIC PAIN 01/23/2020 STEPH DAILY Ot I 10 ESSENTIAL (PRIMARY) HYPERTENSION 01/23/2020 STEPH DAILY Ot J44.9 CHRONIC OBSTRUCTIVE PULMONARY DISEASE, U 01/23/2020 STEPH DAILY Ot M54.2 CERVICALGIA 01/23/2020 STEPH DAILY Ot M54.5 LOW BACK PAIN 01/23/2020 STEPH DAILY Ot R40.2142 COMA SCALE, EYES OPEN, SPONTANEOUS, EMR 01/23/2020 STEPH DAILY Ot R40.2252 COMA SCALE, BEST VERBAL RESPONSE, ORIENT 01/23/2020 STEPH DAILY Ot R40.2362 COMA SCALE, BEST MOTOR RESPONSE, OBEYS C 01/23/2020 STEPH DAILY Ot S09.90XA UNSPECIFIED INJURY OF HEAD, INITIAL ENCO 01/23/2020 STEPH DAILY Ot W18.39XA OTHER FALL ON SAME LEVEL, INITIAL ENCOUN 01/23/2020 STEPH DAILY Ot Y92.[address] IN [facility] NON[facility] (PRIVATE 01/23/2020 STEPH DAILY Ot Z85.41 PERSONAL HISTORY OF MALIGNANT NEOPLASM O 01/23/2020 STEPH DAILY Ot Z87.891 PERSONAL HISTORY OF NICOTINE DEPENDENCE 01/23/2020 STEPH DAILY Ot Z88.2 ALLERGY STATUS TO SULFONAMIDES STATUS 01/23/2020 STEPH DAILY Ot E03.9 HYPOTHYROIDISM, UNSPECIFIED 01/23/2020 STEPH DAILY Ot E78.00 PURE HYPERCHOLESTEROLEMIA, UNSPECIFIED 01/23/2020 STEPH DAILY Ot E87.6 HYPOKALEMIA 01/23/2020 STEPH DAILY Ot F31.9 BIPOLAR DISORDER, UNSPECIFIED 01/23/2020 STEPH DAILY Ot F41.9 ANXIETY DISORDER, UNSPECIFIED 01/23/2020 STEPH DAILY Ot G89.29 OTHER CHRONIC PAIN 01/23/2020 STEPH DAILY Ot I 10 ESSENTIAL (PRIMARY) HYPERTENSION 01/23/2020 STEPH DAILY Ot J44.9 CHRONIC OBSTRUCTIVE PULMONARY DISEASE, U 01/23/2020 STEPH DAILY Ot M54.2 CERVICALGIA 01/23/2020 STEPH DAILY Ot M54.5 LOW BACK PAIN 01/23/2020 STEPH DAILY Ot R40.2142 COMA SCALE, EYES OPEN, SPONTANEOUS, EMR 01/23/2020 STEPH DAILY Ot R40.2252 COMA SCALE, BEST VERBAL RESPONSE, ORIENT 01/23/2020 STEPH DAILY Ot R40.2362 COMA SCALE, BEST MOTOR RESPONSE, OBEYS C 01/23/2020 STEPH DAILY Ot S09.90XA UNSPECIFIED INJURY OF HEAD, INITIAL ENCO 01/23/2020 STEPH DAILY Ot W18.39XA OTHER FALL ON SAME LEVEL, INITIAL ENCOUN 01/23/2020 STEPH DAILY Ot Y92.009 [facility] PL[facility] IN [facility] NON[facility] (PRIVATE 01/23/2020 STEPH DAILY Ot Z85.41 PERSONAL HISTORY OF MALIGNANT NEOPLASM O 01/23/2020 STEPH DAILY Ot Z87.891 PERSONAL HISTORY OF NICOTINE DEPENDENCE 01/23/2020 STEPH DAILY Ot Z88.2 ALLERGY STATUS TO SULFONAMIDES STATUS 01/24/2020 BLU WAGGONERP Ot E03.9 HYPOTHYROIDISM, UNSPECIFIED 01/24/2020 EDILSONBLU CordovaP Ot E78.00 PURE HYPERCHOLESTEROLEMIA, UNSPECIFIED 01/24/2020 EDILSON, BLU BROILER SUPERVISOR Ot F31.9 BIPOLAR DISORDER, UNSPECIFIED 01/24/2020 EDILSON, BLU BROILER SUPERVISOR Ot F41.9 ANXIETY DISORDER, UNSPECIFIED 01/24/2020 BLU WAGGONERP Ot I10 ESSENTIAL (PRIMARY) HYPERTENSION 01/24/2020 BLU WAGGONERP Ot J44.9 CHRONIC OBSTRUCTIVE PULMONARY DISEASE, U 01/24/2020 EDILSON BLU BROILER SUPERVISOR Ot M06.9 RHEUMATOID ARTHRITIS, UNSPECIFIED 01/24/2020 EDILSON, BLU BROILER SUPERVISOR Ot M79.89 OTHER SPECIFIED SOFT TISSUE DISORDERS 01/24/2020 EDILSON, BLU BROILER SUPERVISOR Ot Z79.52 MCC (CURRENT) USE OF SYSTEMIC STER 01/24/2020 EDILSON, BLU HAQ Ot Z85.41 PERSONAL HISTORY OF MALIGNANT NEOPLASM O 01/24/2020 EDILSON, BLU HAQ Ot Z87.891 PERSONAL HISTORY OF NICOTINE DEPENDENCE 01/24/2020 EDILSON, BLU HAQ Ot Z88.2 ALLERGY STATUS TO SULFONAMIDES STATUS 02/19/2020 UNLISTED, UNLISTED W A49. 3 MYCOPLASMA INFECTION, UNSPECIFIED SITE 02/19/2020 UNLISTED, UNLISTED W B96. 0 MYCOPLASMA PNEUMONIAE THE CAUSE OF DISEASES CLASSD ELSWHR 02/19/2020 UNLISTED, UNLISTED W D64. 9 ANEMIA, UNSPECIFIED 02/19/2020 UNLISTED, UNLISTED W D72. 829 ELEVATED WHITE BLOOD CELL COUNT, UNSPECIFIED 02/19/2020 UNLISTED, UNLISTED W E03. 9 HYPOTHYROIDISM, UNSPECIFIED 02/19/2020 UNLISTED, UNLISTED W E16. 2 HYPOGLYCEMIA, UNSPECIFIED 02/19/2020 UNLISTED, UNLISTED W E86. 0 DEHYDRATION 02/19/2020 UNLISTED, UNLISTED W E87. 6 HYPOKALEMIA 02/19/2020 UNLISTED, UNLISTED W F32. 9 MAJOR DEPRESSIVE DISORDER, SINGLE EPISODE, UNSPECIFIED 02/19/2020 UNLISTED, UNLISTED W G43. 909 MIGRAINE, UNSP, NOT INTRACTABLE, WITHOUT STATUS MIGRAINOSUS 02/19/2020 UNLISTED, UNLISTED W G62. 9 POLYNEUROPATHY, UNSPECIFIED 02/19/2020 UNLISTED, UNLISTED W G89. 29 OTHER CHRONIC PAIN 02/19/2020 UNLISTED, UNLISTED W I10 ESSENTIAL (PRIMARY) HYPERTENSION 02/19/2020 UNLISTED, UNLISTED W I50. 9 HEART FAILURE, UNSPECIFIED 02/19/2020 UNLISTED, UNLISTED W K21. 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 9 RHEUMATOID ARTHRITIS, UNSPECIFIED 02/19/2020 UNLISTED, UNLISTED W R00. 0 TACHYCARDIA, UNSPECIFIED 02/19/2020 UNLISTED, UNLISTED W R11. 0 NAUSEA 02/19/2020 UNLISTED, UNLISTED W R19. 5 OTHER FECAL ABNORMALITIES 02/19/2020 UNLISTED, UNLISTED W R19. 7 DIARRHEA, UNSPECIFIED 02/19/2020 UNLISTED, UNLISTED W R73. 9 HYPERGLYCEMIA, UNSPECIFIED 02/19/2020 UNLISTED, UNLISTED W R82. 99 OTHER ABNORMAL FINDINGS IN URINE Procedures Code Description Performed By Per kasia On 48.63 ANTE RIOR RECT RESECT NEC 09/19/2010 53.43 OTHE R LAPAROSCOPIC UMBILICAL HERNIORRHAP 09/19/2010 28393 PSYC H IND W/MED CK 20 11/13/2011 37087 PSYC H IND W/MED CK 20 11/18/2012 23781 PSYC H IND W/MED CK 20 01/24/2013 Results Test Result Range Hemoglobin A1C - 01/12/17 14:47 % A1C 5.50 % 5.40-6.60 AvGlu 117 mg/dL 70-110 Urinalysis - 01/12/17 15:51 Icotest Positive Negative Urine Volume Urine Volume Sufficient (10mL) Urine-Appearance Cloudy Clear Urine-Bacteria 2+ Urine-Bilirubin 2+ Negative Urine-Blood Trace-lysed Negative Urine-Color Yellow Colorless-Lt. [place] Urine-Epithelial Cells 5-10/HPF Urine-Glucose Negative Negative Urine-Ketones 4+ Negative Urine-Leukocytes Trace Negative Urine-Mucus 1+ Urine-Nitrite Negative Negative Urine-Other Urine Saved if Culture Need ed (48hrs from time of collection) Urine-pH 5.5 5-8.5 Urine-Protein 2+ Negative Urine-Specific [place] >=1.030 1.000-1 .030 Urine-WBC 2-5/HPF Urobilinogen 0.2 E.U./dL 0.2-1.0 Comprehensive [...] 1.4 mg/dL 0.2-1.2 TP 6.2 g/dL 6.0-8.3 [facility] - 07/23/17 12:20 Anion Gap 21 6-14 BUN 15 mg/dL 5-25 Calcium 10.0 mg/dL 8.3-10.4 Chloride 99 mmol/L 95-114 CO2 30 mEq/L 22-33 Creat 1.02 mg/dL 0.50-1.50 eGFR 54 mL/min/1.73m2 >59 Glucose 117 mg/dL 70-110 Osmo 305 280-295 Potassium 3.2 mmol/L 3.5-5.3 Sodium 147 mmol/L 134-148 Sed Rate - 07/23/17 12:20 Sed Rate 2 mm/hr 9-15 [facility] - 07/24/17 07:17 Anion Gap 14 [...] Negative Urine-Blood Trace-intact Negative Urine-Color Yellow Colorless-Lt. [place] Urine-Epithelial Cells 5-10/HPF Urine-Glucose Negative Negative Urine-Ketones Trace Negative Urine-Leukocytes Negative Negative Urine-Mucus 3+ Urine-Nitrite Negative Negative Urine-Other Culture to follow Urine-pH 6.0 5-8.5 Urine-Protein Negative Negative Urine-RBC Rare/HPF Urine-Specific [place] 1.020 1.000-1 .030 Urine-WBC 2-5/HPF Urobilinogen 1.0 E.U./dL 0.2-1.0 Comprehensive [...] Negative Urine-Blood Negative Negative Urine-Color Yellow Colorless-Lt. [place] Urine-Epithelial Cells 10-20/HPF Urine-Glucose Negative Negative Urine-Ketones 4+ Negative Urine-Leukocytes Negative Negative Urine-Mucus 1+ Urine-Nitrite Negative Negative Urine-Other Urine Saved if Culture Need ed (48hrs from time of collection) Urine-pH 5.5 5-8.5 Urine-Protein Trace Negative Urine-RBC Rare/HPF Urine-Specific [place] >=1.030 1.000-1 .030 Urine-WBC Rare/HPF Urobilinogen 0.2 0.2-1.0 BNP - 01/12/18 15:46 BNP 54.60 pg/ml 0.00-100.00 Mycoplasma - 01/12/18 15:46 Mycoplasma Positive Negative Blood Culture - 01/12/18 15:46 PRELIM CULTURE RESULTS Blood Culture Negativ e, No Growth Day 1 FINAL CULTURE RESULTS Blood Culture Negative , No Growth Day 5 MEDIA PLATED Blood Culture Media Position A12 CULTURE SOURCE RIGHT ARM Fecal Leukocyte - 01/12/18 17:01 Fecal Leukocyte Negative Negative Stool Culture - 01/12/18 17:18 Stool Culture Note Ova + Parasite Exam - 01/12/18 17:18 Ova + Parasite Exam Note White Blood Cells (WBC), Stool - 8 17:18 White Blood Cells (WBC), Stool Note Stool Culture - 01/12/18 17:18 CAMPYLOBACTER CULTURE FINAL REPORT E COLI SHIGA TOXIN EIA NEGATIVE NEGATIV E RESULT 1 NO SALMONELLA OR SHIGELLA RECOVERED. Salmonella/Shigella Screen FINAL REPORT Result 1 NO CAMPYLOBACTER SPECIES ISOLATED. Urinalysis - 01/12/18 17:30 Icotest Negative Negative Urine Volume Urine Volume Insufficient ( <10mL) May Affect Microscopic Exam Urine Yeast No Yeast present Urine-Appearance Slightly Cloudy Clear Urine-Bacteria Trace Urine-Bilirubin 3+ Negative Urine-Blood Negative Negative Urine-Color Yellow Colorless-Lt. [place] Urine-Epithelial Cells 0-5/HPF Urine-Glucose Negative Negative Urine-Ketones 4+ Negative Urine-Leukocytes Negative Negative Urine-Mucus 3+ Urine-Nitrite Negative Negative Urine-Other Culture to follow Urine-pH 6.0 5-8.5 Urine-Protein 2+ Negative Urine-RBC 0-2/HPF Urine-Specific [place] >=1.030 1.000-1 .030 Urine-WBC 2-5/HPF Urobilinogen 1.0 0.2-1.0 Urine Culture - 01/12/18 18:06 PRELIM CULTURE RESULTS No Growth 24 hours FINAL CULTURE RESULTS No Growth 48 hours MEDIA PLATED Setup at 18:11 on 01/12/2018 CULTURE SOURCE cath Blood Culture - 01/12/18 19:29 PRELIM CULTURE RESULTS Blood Culture Negativ e, No Growth Day 1 FINAL CULTURE RESULTS Blood Culture Negative , No Growth Day 5 MEDIA PLATED Blood [...] 1.2 mg/dL 0.2-1.2 TP 5.0 g/dL 6.0-8.3 [facility] - 01/14/18 06:55 Anion Gap 13 6-14 BUN 6 mg/dL 5-25 Calcium 8.2 mg/dL 8.3-10.4 Chloride 115 mmol/L 95-114 CO2 19 mEq/L 22-33 Creat 0.76 mg/dL 0.50-1.50 eGFR 75 mL/min/1.73m2 >59 Glucose 97 mg/dL 70-110 Osmo 293 280-295 Potassium 3.6 mmol/L 3.5-5.3 Sodium 143 mmol/L 134-148 [facility] - 01/15/18 07:00 Anion Gap 15 6-14 BUN 3 mg/dL 5-25 Calcium 9.2 mg/dL 8.3-10.4 Chloride 115 mmol/L 95-114 CO2 21 mEq/L 22-33 Creat 0.73 mg/dL 0.50-1.50 eGFR 79 mL/min/1.73m2 >59 Glucose 95 mg/dL 70-110 Osmo 298 280-295 Potassium 4.5 mmol/L 3.5-5.3 Sodium 146 mmol/L 134-148 [facility] 01/17/18 08:51 Anion Gap 16 6-14 BUN 4 mg/dL 5-25 Calcium 9.2 mg/dL 8.3-10.4 Chloride 105 mmol/L 95-114 CO2 26 mEq/L 22-33 Creat 0.78 mg/dL 0.50-1.50 eGFR 73 mL/min/1.73m2 >59 Glucose 102 mg/dL 70-110 Osmo 292 280-295 Potassium 3.5 mmol/L 3.5-5.3 Sodium 143 mmol/L 134-148 [facility] - 02/03/18 01:20 Anion Gap 13 [...] Negative EKG - 02/03/18 02:20 EKG Complete [facility] - 02/03/18 06:35 Anion Gap 15 [...] 32.5 g/dL 32.0-36.0 MCV 94.4 fL 80.0-97.0 [place]% 10.0 % 0.0-12.0 MPV 10.0 fL 7.4-10.0 Deanna% 53.5 % 37.0-80.0 Plt 175 K/uL 150-400 RBC 3.72 M/uL 3.60-5.00 RDW 14.0 % 11.6-14.8 WBC 3.31 K/uL 5.00-10.00 Deanna 1.77 K/uL 2.00-6.90 [place] 0.3 K/uL 0.0-0.9 Baso 0.0 K/uL 0.0-0.2 Surgical Pathology - 02/11/18 09:35 Surg Path Sent to [facility] Comprehensive Metabolic Panel - 02/12/18 05:21 [...] Negative Urine-Blood Negative Negative Urine-Color Yellow Colorless-Lt. [place] Urine-Epithelial Cells 0-5/HPF Urine-Glucose Negative Negative Urine-Ketones Negative Negative Urine-Leukocytes Negative Negative Urine-Nitrite Negative Negative Urine-Other Urine Saved if Culture Need ed (48hrs from time of collection) Urine-pH 5.5 5-8.5 Urine-Protein Negative Negative Urine-RBC 0-2/HPF Urine-Specific [place] <=1.005 1.000-1 .030 Urine-WBC Negative Urobilinogen 0.2 E.U./dL 0.2-1.0 CBC with Auto Diff - 02/22/18 11:00 Baso% 0.20 % 0.00-2.50 Eos 0.1 K/uL 0.0-0.7 Eos% 1.1 % 0.0-7.0 Hct 34.6 % 36.0-46.0 Hgb 11.1 g/dL 13.0-15.0 Lym 1.70 K/uL 0.60-3.40 Lym% 36.3 % 10.0-50.0 MCH 29.9 pg 27.0-31.0 MCHC 32.1 g/dL 32.0-36.0 MCV 93.3 fL 80.0-97.0 [place]% 15.2 % 0.0-12.0 MPV 11.0 fL 7.4-10.0 [place]% 47.2 % 37.0-80.0 Plt 252 K/uL 150-400 RBC 3.71 M/uL 3.60-5.00 RDW 13.5 % 11.6-14.8 WBC 4.68 K/uL 5.00-10.00 Deanna 2.21 K/uL 2.00-6.90 [place] 0.7 K/uL 0.0-0.9 Baso 0.0 K/uL 0.0-0.2 [...] g/dL 6.0-8.3 Complete blood count (CBC) with automate d white blood cell (WBC) differential - 08/29/18 20:10 Blood leukocytes automated count (number/volume) 4.3 10*3/uL 4.3-11.0 Blood erythrocytes automated count (number/volume) 3.76 10*6/uL 4.35-5.85 Venous blood hemoglobin measurement (mass/volume) 10.7 g/dL 11.5-16.0 Blood hematocrit (volume fraction) 34 % 35-52 Automated erythrocyte mean corpuscular volume 90 [ foz_us] 80-99 Automated erythrocyte mean corpuscular h emoglobin (mass per erythrocyte) 29 pg 25-34 Automated erythrocyte mean corpuscular h emoglobin concentration measurement (mass/volume) 32 g/dL 32-36 Automated erythrocyte distribution width ratio 15. 4 % 10.0- 14.5 Automated blood platelet count [...] 10*3 1.0-4.0 Blood monocytes automated count (number/volume) 0. 5 10*3 0.0-1.0 Automated eosinophil count 0.1 10*3/uL 0 .0-0.3 Automated blood basophil count (count/volume) 0.0 10*3/uL 0.0-0.1 Blood lactic acid measurement (moles/vol ume) - 08/29/18 20:10 Blood lactic acid measurement [...] 5-14 Serum or plasma urea nitrogen measurement (mass/volume ) 9 mg/dL 7-18 Serum or plasma creatinine measurement (mass/volume) 0.89 mg/dL 0.60-1.30 Serum or plasma urea nitrogen/creatinine mass ratio 10 NRG Serum or plasma creatinine measurement w ith calculation of estimated glomerular filtration rate > NRG Serum or plasma glucose measurement (mass/volume) 95 mg/dL 70-105 Serum or plasma calcium measurement (mass/volume) 9.1 mg/dL 8.5-10.1 Serum or plasma total bilirubin measurement (mass/volu me) 0.5 mg/dL 0.1-1.0 Serum or plasma alkaline phosphatase med surement (enzymatic activity/volume) 171 U/L 40-136 Serum or plasma aspartate aminotransfera se measurement (enzymatic activity/volume) 13 U/L 5-34 Serum or plasma alanine aminotransferase measurement (enzymatic activity/volume) 9 U/L 0-55 Serum or plasma protein measurement (mass/volume) 5.2 g/dL 6.4-8.2 Serum or plasma albumin measurement (mass/volume) 3.5 g/dL 3.2-4.5 CALCIUM CORRECTED 9.5 mg/dL 8.5-10.1 Serum or plasma C reactive protein measu rement (mass/volume) - 08/29/18 20:10 Serum or plasma C reactive protein measurement (mass/v olume) 0.29 mg/dL 0.00-0.50 Erythrocyte sedimentation rate by mau gren method - 08/29/18 20:10 Erythrocyte sedimentation rate by westergren method 24 mm 0- 30 Bacterial blood culture - 08/29/18 20:10 Bacterial blood culture NG NRG Bacterial blood culture - 10/25/18 21:00 Bacterial blood culture NG NRG Streptococcus pyogenes antigen detection - 09/28/18 18:52 Streptococcus pyogenes antigen detection NEGATIVE NEGATIVE Bacterial throat culture - 09/28/18 18:5 2 Bacterial throat culture NBS NRG Complete blood count (CBC) with automate d white blood cell (WBC) differential - 09/28/18 18:59 Blood leukocytes automated count (number/volume) 11.9 10*3/uL 4.3-11.0 Blood erythrocytes automated count (number/volume) 4.03 10*6/uL 4.35-5.85 Venous blood hemoglobin measurement (mass/volume) 11.4 g/dL 11.5-16.0 Blood hematocrit (volume fraction) 36 % 35-52 Automated erythrocyte mean corpuscular volume 88 [ foz_us] 80-99 Automated erythrocyte mean corpuscular h emoglobin (mass per erythrocyte) 28 pg 25-34 Automated erythrocyte mean corpuscular h emoglobin concentration measurement (mass/volume) 32 g/dL 32-36 Automated erythrocyte distribution width ratio 14. 9 % 10.0- 14.5 Automated blood platelet count [...] 10*3 1.0-4.0 Blood monocytes automated count (number/volume) 1. 1 10*3 0.0-1.0 Automated eosinophil count 0.0 10*3/uL 0 .0-0.3 Automated blood basophil count (count/volume) 0.0 10*3/uL 0.0-0.1 Comprehensive metabolic panel - 09/28/18 18:59 Serum or plasma sodium measurement (moles/volume) 142 mmol/L 135-145 Serum or plasma potassium measurement (moles/volume) 3.3 mmol/L 3.6-5.0 Serum or plasma chloride measurement (moles/volume) 105 mmol/L 98-107 Carbon dioxide 22 mmol/L 21-32 Serum or plasma anion gap determination (moles/volume) 15 mmol/L 5-14 Serum or plasma urea nitrogen measurement (mass/volume ) 9 mg/dL 7-18 Serum or plasma creatinine measurement (mass/volume) 0.73 mg/dL 0.60-1.30 Serum or plasma urea nitrogen/creatinine mass ratio 12 NRG Serum or plasma creatinine measurement w ith calculation of estimated glomerular filtration rate > NRG Serum or plasma glucose measurement (mass/volume) 100 mg/dL 70-105 Serum or plasma calcium measurement (mass/volume) 9.8 mg/dL 8.5-10.1 Serum or plasma total bilirubin measurement (mass/volu me) 1.3 mg/dL 0.1-1.0 Serum or plasma alkaline phosphatase med surement (enzymatic activity/volume) 138 U/L 40-136 Serum or plasma aspartate aminotransfera se measurement (enzymatic activity/volume) 10 U/L 5-34 Serum or plasma alanine aminotransferase measurement (enzymatic activity/volume) 7 U/L 0-55 Serum or plasma protein measurement (mass/volume) 7.0 g/dL 6.4-8.2 Serum or plasma albumin measurement (mass/volume) 3.8 g/dL 3.2-4.5 CALCIUM CORRECTED 10.0 mg/dL 8.5-10.1 Serum heterophile antibody titer - 09/28 18:59 Serum heterophile antibody titer NEGATIVE NEGATIVE VITAMIN B12/FOLATE, SERUM PANEL - 13:48 VITAMIN B12 309 pg/mL 200-1100 FOLATE, SERUM 8.9 ng/mL NRG ANEMIA PANEL - 01/15/19 13:49 IRON, TOTAL 53 mcg/dL 45-160 FERRITIN 34 ng/mL 20-288 IRON BINDING CAPACITY 331 mcg/dL (calc) 250-450 % SATURATION 16 % (calc) 11-50 CMP - 01/15/19 13:49 GLUCOSE 110 mg/dL 65-99 UREA NITROGEN (BUN) 14 mg/dL 7-25 CREATININE 0.80 mg/dL 0.60-0.93 eGFR NON-AFR. [place] 74 mL/min/1.73m2 > OR = 60 eGFR 86 mL/min/1.73m2 > OR = 60 BUN/CREATININE RATIO NOT APPLICABLE (calc) 6-22 SODIUM 144 mmol/L 135-146 POTASSIUM 4.1 mmol/L 3.5-5.3 CHLORIDE 109 mmol/L 98-110 CARBON DIOXIDE 25 mmol/L 20-32 CALCIUM 9.7 mg/dL 8.6-10.4 PROTEIN, TOTAL 6.1 g/dL 6.1-8.1 ALBUMIN 3.9 g/dL 3.6-5.1 GLOBULIN 2.2 g/dL (calc) 1.9-3.7 ALBUMIN/GLOBULIN RATIO 1.8 (calc) 1.0-2. 5 BILIRUBIN, TOTAL 0.7 mg/dL 0.2-1.2 ALKALINE PHOSPHATASE 109 U/L 33-130 AST 13 U/L 10-35 ALT 9 U/L 6-29 CBC - 01/15/19 13:49 WHITE BLOOD CELL COUNT 5.6 Thousand/uL 3 .8-10.8 RED BLOOD CELL COUNT 4.89 Million/uL 3.8 0-5.10 HEMOGLOBIN 13.2 g/dL 11.7-15.5 HEMATOCRIT 40.5 % 35.0-45.0 MCV 82.8 fL 80.0-100.0 MCH 27.0 pg 27.0-33.0 MCHC 32.6 g/dL 32.0-36.0 RDW 16.1 % 11.0-15.0 PLATELET COUNT 280 Thousand/uL 140-400 MPV 10.5 fL 7.5-12.5 ABSOLUTE NEUTROPHILS 2979 cells/uL 1500- 7800 ABSOLUTE LYMPHOCYTES 2022 cells/uL 850-3 900 ABSOLUTE MONOCYTES 526 cells/uL 200-950 ABSOLUTE EOSINOPHILS 50 cells/uL 15-500 ABSOLUTE BASOPHILS 22 cells/uL 0-200 NEUTROPHILS 53.2 % NRG LYMPHOCYTES 36.1 % NRG MONOCYTES 9.4 % NRG EOSINOPHILS 0.9 % NRG BASOPHILS 0.4 % NRG Complete blood count (CBC) with automate d white blood cell (WBC) differential - 03/05/19 16:15 Blood leukocytes automated count (number/volume) 5.5 10*3/uL 4.3-11.0 Blood erythrocytes automated count (number/volume) 5.02 10*6/uL 4.35-5.85 Venous blood hemoglobin measurement (mass/volume) 13.9 g/dL 11.5-16.0 Blood hematocrit (volume fraction) 43 % 35-52 Automated erythrocyte mean corpuscular volume 85 [ foz_us] 80-99 Automated erythrocyte mean corpuscular h emoglobin (mass per erythrocyte) 28 pg 25-34 Automated erythrocyte mean corpuscular h emoglobin concentration measurement (mass/volume) 33 g/dL 32-36 Automated erythrocyte distribution width ratio 16. 5 % 10.0- 14.5 Automated blood platelet count [...] 10*3 1.0-4.0 Blood monocytes automated count (number/volume) 0. 5 10*3 0.0-1.0 Automated eosinophil count 0.0 10*3/uL 0 .0-0.3 Automated blood basophil count (count/volume) 0.0 10*3/uL 0.0-0.1 Comprehensive metabolic panel - 03/05/19 16:15 Serum or plasma sodium measurement (moles/volume) 144 mmol/L 135-145 Serum or plasma potassium measurement (moles/volume) 3.9 mmol/L 3.6-5.0 Serum or plasma chloride measurement (moles/volume) 107 mmol/L 98-107 Carbon dioxide 23 mmol/L 21-32 Serum or plasma anion gap determination (moles/volume) 14 mmol/L 5-14 Serum or plasma urea nitrogen measurement (mass/volume ) 13 mg/dL 7-18 Serum or plasma creatinine measurement (mass/volume) 0.94 mg/dL 0.60-1.30 Serum or plasma urea nitrogen/creatinine mass ratio 14 NRG Serum or plasma creatinine measurement w ith calculation of estimated glomerular filtration rate 59 NRG Serum or plasma glucose measurement (mass/volume) 105 mg/dL 70-105 Serum or plasma calcium measurement (mass/volume) 10.5 mg/dL 8.5-10.1 Serum or plasma total bilirubin measurement (mass/volu me) 1.1 mg/dL 0.1-1.0 Serum or plasma alkaline phosphatase med surement (enzymatic activity/volume) 137 U/L 40-136 Serum or plasma aspartate aminotransfera se measurement (enzymatic activity/volume) 15 U/L 5-34 Serum or plasma alanine aminotransferase measurement (enzymatic activity/volume) 10 U/L 0-55 Serum or plasma protein measurement (mass/volume) 6.9 g/dL 6.4-8.2 Serum or plasma albumin measurement (mass/volume) 4.3 g/dL 3.2-4.5 CALCIUM CORRECTED 10.3 mg/dL 8.5-10.1 Serum or plasma C reactive protein measu rement (mass/volume) - 03/05/19 16:15 Serum or plasma C reactive protein measurement (mass/v olume) 0.09 mg/dL 0.00-0.50 Complete urinalysis with reflex to cultu re - 03/05/19 17:20 Urine color determination YELLOW NRG Urine clarity determination VERY CLOUDY NRG Urine pH measurement by test strip 7 5-9 Specific gravity of urine by test strip 1.010 1.016-1.022 Urine protein assay by test strip, semi-quantitative 1+ NEGATIVE Urine glucose detection by automated test strip NE GATIVE NEGATIVE Erythrocytes detection in urine sediment by light micr oscopy NEGATIVE NEGATIVE Urine ketones detection by automated test strip 3+ NEGATIVE Urine nitrite detection by test strip NEGATIVE NEGATIVE Urine total bilirubin detection by test strip NEGA TIVE NEGATIVE Urine urobilinogen measurement by automated test strip (mass/volume) NORMAL NORMAL Urine leukocyte esterase detection by dipstick 3+ NEGATIVE Automated urine sediment erythrocyte cou nt by microscopy (number/high power field) NONE NRG Automated urine sediment leukocyte count by microscopy (number/high power field) [HPF] NRG Bacteria detection in urine sediment by light microsco py TRACE NRG Squamous epithelial cells detection in u rine sediment by light microscopy 5-10 NRG Crystals detection in urine sediment by light microsco py NONE NRG Casts detection in urine sediment [...] 7-25 CREATININE 0.93 mg/dL 0.60-0.93 eGFR NON-AFR. ALBANIAN 62 mL/min/1.73m2 > OR = 60 eGFR 72 mL/min/1.73m2 > OR = 60 BUN/CREATININE RATIO NOT APPLICABLE (calc) 6-22 SODIUM 144 mmol/L 135-146 POTASSIUM 4.2 mmol/L 3.5-5.3 CHLORIDE 109 mmol/L 98-110 CARBON DIOXIDE 23 mmol/L 20-32 CALCIUM 9.2 mg/dL 8.6-10.4 PROTEIN, TOTAL 5.9 g/dL 6.1-8.1 ALBUMIN 3.9 g/dL 3.6-5.1 GLOBULIN 2.0 g/dL (calc) 1.9-3.7 ALBUMIN/GLOBULIN RATIO 2.0 (calc) 1.0-2. 5 BILIRUBIN, TOTAL 0.3 mg/dL 0.2-1.2 ALKALINE PHOSPHATASE [...] 31.4 g/dL 32.0-36.0 MCV 91.2 fL 80.0-97.0 [place]% 9.4 % 0.0-12.0 MPV 11.4 fL 7.4-10.0 [place]% 71.5 % 37.0-80.0 Plt 250 K/uL 150-400 RBC 4.44 M/uL 3.60-5.00 RDW 15.1 % 11.6-14.8 WBC 9.70 K/uL 5.00-10.00 Deanna 6.93 K/uL 2.00-6.90 [place] 0.9 K/uL 0.0-0.9 Baso 0.0 K/uL 0.0-0.2 Urinalysis - 05/10/19 02:50 Icotest N/A Negative Urine Volume Urine Volume Sufficient (10mL) Urine-Appearance Clear Clear Urine-Bacteria Negative Urine-Bilirubin Negative Negative Urine-Blood Negative Negative Urine-Color Yellow Colorless[place] Urine-Epithelial Cells 0-5/HPF Urine-Glucose Negative Negative Urine-Ketones Negative Negative Urine-Leukocytes Negative Negative Urine-Nitrite Negative Negative Urine-Other Urine Saved if Culture Need ed (48hrs from time of collection) Urine-pH 7.0 5-8.5 Urine-Protein Negative Negative Urine-RBC Rare/HPF Urine-Specific [place] 1.010 1.000-1 .030 Urine-WBC Rare/HPF Urobilinogen 0.2 0.2-1.0 BMP - 05/10/19 03:10 Anion Gap 15 6-14 BUN 13 mg/dL 5-25 Calcium 9.8 mg/dL 8.3-10.4 Chloride 107 mmol/L 95-114 CO2 27 mEq/L 22-33 Creat 1.33 mg/dL 0.50-1.50 eGFR 39 mL/min/1.73m2 >59 Glucose 91 mg/dL 70-110 [place]sm[place] 299 280-295 Potassium 4.3 mmol/L 3.5-5.3 Sodium 145 mmol/L 134-148 [facility] - 05/10/19 10:16 Anion Gap 18 6-14 BUN 11 mg/dL 5-25 Calcium 9.5 mg/dL 8.3-10.4 Chloride 110 mmol/L 95-114 CO2 23 mEq/L 22-33 Creat 1.06 mg/dL 0.50-1.50 eGFR 51 mL/min/1.73m2 >59 Glucose 97 mg/dL 70-110 Osmo 301 280-295 Potassium 4.5 mmol/L 3.5-5.3 Sodium 146 mmol/L 134-148 Complete blood count (CBC) with automate d white blood cell (WBC) differential - 05/10/19 19:44 Blood leukocytes automated count (number/volume) 7.5 10*3/uL 4.3-11.0 Blood erythrocytes automated count (number/volume) 3.91 10*6/uL 4.35-5.85 Venous blood hemoglobin measurement (mass/volume) 11.0 g/dL 11.5-16.0 Blood hematocrit (volume fraction) 35 % 35-52 Automated erythrocyte mean corpuscular volume 90 [ foz_us] 80-99 Automated erythrocyte mean corpuscular h emoglobin (mass per erythrocyte) 28 pg 25-34 Automated erythrocyte mean corpuscular h emoglobin concentration measurement (mass/volume) 31 g/dL 32-36 Automated erythrocyte distribution width ratio 16. 1 % 10.0- 14.5 Automated blood platelet count [...] 10*3 1.0-4.0 Blood monocytes automated count (number/volume) 0. 6 10*3 0.0-1.0 Automated eosinophil count 0.0 10*3/uL 0 .0-0.3 Automated blood basophil count (count/volume) 0.0 10*3/uL 0.0-0.1 Comprehensive metabolic panel - 05/10/19 19:44 Serum or plasma sodium measurement (moles/volume) 145 mmol/L 135-145 Serum or plasma potassium measurement (moles/volume) 4.2 mmol/L 3.6-5.0 Serum or plasma chloride measurement (moles/volume) 110 mmol/L 98-107 Carbon dioxide 25 mmol/L 21-32 Serum or plasma anion gap determination (moles/volume) 10 mmol/L 5-14 Serum or plasma urea nitrogen measurement (mass/volume ) 14 mg/dL 7-18 Serum or plasma creatinine measurement (mass/volume) 1.01 mg/dL 0.60-1.30 Serum or plasma urea nitrogen/creatinine mass ratio 14 NRG Serum or plasma creatinine measurement w ith calculation of estimated glomerular filtration rate 54 NRG Serum or plasma glucose measurement (mass/volume) 113 mg/dL 70-105 Serum or plasma calcium measurement (mass/volume) 9.0 mg/dL 8.5-10.1 Serum or plasma total bilirubin measurement (mass/volu me) 0.4 mg/dL 0.1-1.0 Serum or plasma alkaline phosphatase med surement (enzymatic activity/volume) 95 U/L 40-136 Serum or plasma aspartate aminotransfera se measurement (enzymatic activity/volume) 13 U/L 5-34 Serum or plasma alanine aminotransferase measurement (enzymatic activity/volume) 13 U/L 0-55 Serum or plasma protein measurement (mass/volume) 5.6 g/dL 6.4-8.2 Serum or plasma albumin measurement (mass/volume) 3.5 g/dL 3.2-4.5 CALCIUM CORRECTED 9.4 mg/dL 8.5-10.1 Erythrocyte sedimentation rate by mau gren method - 05/10/19 19:44 Erythrocyte sedimentation rate by westergren method 14 mm 0- 30 Acetylcholine receptor blocking antibody assay - 05/10/19 19:44 ACETYLCHOLINE CORSET FITTER BINDING AB 0.0 % 0.0-0.4 Complete urinalysis with reflex to cultu re - 05/11/19 13:57 Urine color determination YELLOW NRG Urine clarity determination CLEAR NR G Urine pH measurement by test strip 6.5 5-9 Specific gravity of urine by test strip 1.010 1.016-1.022 Urine protein assay by test strip, semi-quantitative NEGATIVE NEGATIVE Urine glucose detection by automated test strip NE GATIVE NEGATIVE Erythrocytes detection in urine sediment by light micr oscopy NEGATIVE NEGATIVE Urine ketones detection by automated test strip NE GATIVE NEGATIVE Urine nitrite detection by test strip NEGATIVE NEGATIVE Urine total bilirubin detection by test strip NEGA TIVE NEGATIVE Urine urobilinogen measurement by automated test strip (mass/volume) NORMAL NORMAL Urine leukocyte esterase detection by dipstick NEG ATIVE NEGATIVE Automated urine sediment erythrocyte cou nt by microscopy (number/high power field) NONE NRG Automated urine sediment leukocyte count by microscopy (number/high power field) NONE NRG Bacteria detection in urine sediment by light microsco py NEGATIVE NRG Squamous epithelial cells detection in u rine sediment by light microscopy 0-2 NRG Crystals detection in urine sediment by light microsco py NONE NRG Casts detection in urine sediment by light microscopy NONE NRG Mucus detection in urine sediment by light microscopy NEGATIVE NRG Complete urinalysis with reflex to culture NO NRG Complete blood count (CBC) with automate d white blood cell (WBC) differential - 05/11/19 14:24 Blood leukocytes automated count (number/volume) 8.1 10*3/uL 4.3-11.0 Blood erythrocytes automated count (number/volume) 3.89 10*6/uL 4.35-5.85 Venous blood hemoglobin measurement (mass/volume) 11.0 g/dL 11.5-16.0 Blood hematocrit (volume fraction) 35 % 35-52 Automated erythrocyte mean corpuscular volume 89 [ foz_us] 80-99 Automated erythrocyte mean corpuscular h emoglobin (mass per erythrocyte) 28 pg 25-34 Automated erythrocyte mean corpuscular h emoglobin concentration measurement (mass/volume) 32 g/dL 32-36 Automated erythrocyte distribution width ratio 16. 1 % 10.0- 14.5 Automated blood platelet count [...] 10*3 1.0-4.0 Blood monocytes automated count (number/volume) 0. 7 10*3 0.0-1.0 Automated eosinophil count 0.0 10*3/uL 0 .0-0.3 Automated blood basophil count (count/volume) 0.0 10*3/uL 0.0-0.1 PT panel in platelet poor plasma by coag ulation assay - 05/11/19 14:24 Prothrombin time (PT) in platelet poor plasma by coagu lation assay 14.0 s 12.2-14.7 INR in platelet poor plasma or blood by coagulation as say 1.0 0.8-1.4 Activated partial thromboplastin time (a PTT) in platelet poor plasma bycoagulation assay - 05/11/19 14:24 Activated partial thromboplastin time (a PTT) in platelet poor plasma bycoagulation assay 26 s 24-35 Comprehensive metabolic panel - 05/11/19 14:24 Serum or plasma sodium measurement (moles/volume) 142 mmol/L 135-145 Serum or plasma potassium measurement (moles/volume) 4.1 mmol/L 3.6-5.0 Serum or plasma chloride measurement (moles/volume) 107 mmol/L 98-107 Carbon dioxide 24 mmol/L 21-32 Serum or plasma anion gap determination (moles/volume) 11 mmol/L 5-14 Serum or plasma urea nitrogen measurement (mass/volume ) 15 mg/dL 7-18 Serum or plasma creatinine measurement (mass/volume) 0.94 mg/dL 0.60-1.30 Serum or plasma urea nitrogen/creatinine mass ratio 16 NRG Serum or plasma creatinine measurement w ith calculation of estimated glomerular filtration rate 59 NRG Serum or plasma glucose measurement (mass/volume) 114 mg/dL 70-105 Serum or plasma calcium measurement (mass/volume) 9.3 mg/dL 8.5-10.1 Serum or plasma total bilirubin measurement (mass/volu me) 0.5 mg/dL 0.1-1.0 Serum or plasma alkaline phosphatase med surement (enzymatic activity/volume) 90 U/L 40-136 Serum or plasma aspartate aminotransfera se measurement (enzymatic activity/volume) 13 U/L 5-34 Serum or plasma alanine aminotransferase measurement (enzymatic activity/volume) 13 U/L 0-55 Serum or plasma protein measurement (mass/volume) 5.9 g/dL 6.4-8.2 Serum or plasma albumin measurement (mass/volume) 3.7 g/dL 3.2-4.5 CALCIUM CORRECTED 9.5 mg/dL 8.5-10.1 Magnesium - 05/11/19 14:24 Magnesium 2.2 mg/dL 1.8-2.4 Capillary blood glucose measurement by g lucometer (mass/volume) - 05/11/19 14:48 Capillary blood glucose measurement by glucometer (mas s/volume) 110 mg/dL 70-110 Blood lactic acid measurement (moles/vol ume) - 05/11/19 15:11 Blood lactic acid measurement (moles/volume) 0.74 mmol/L 0.50-2.00 Capillary blood glucose measurement by g lucometer (mass/volume) - 05/17/19 03:55 Capillary blood glucose measurement by glucometer (mas s/volume) 84 mg/dL 70-110 Complete urinalysis with reflex to cultu re - 05/22/19 02:18 Urine color determination YELLOW NRG Urine clarity determination CLEAR NR G Urine pH measurement by test strip 6 5-9 Specific gravity of urine by test strip 1.010 1.016-1.022 Urine protein assay by test strip, semi-quantitative NEGATIVE NEGATIVE Urine glucose detection by automated test strip NE GATIVE NEGATIVE Erythrocytes detection in urine sediment by light micr oscopy NEGATIVE NEGATIVE Urine ketones detection by automated test strip NE GATIVE NEGATIVE Urine nitrite detection by test strip NEGATIVE NEGATIVE Urine total bilirubin detection by test strip NEGA TIVE NEGATIVE Urine urobilinogen measurement by automated test strip (mass/volume) NORMAL NORMAL Urine leukocyte esterase detection by dipstick 2+ NEGATIVE Automated urine sediment erythrocyte cou nt by microscopy (number/high power field) NONE NRG Automated urine sediment leukocyte count by microscopy (number/high power field) [HPF] NRG Bacteria detection in urine sediment by light microsco py TRACE NRG Squamous epithelial cells detection in u rine sediment by light microscopy RARE NRG Crystals detection in urine sediment by light microsco py NONE NRG Casts detection in urine sediment by light microscopy NONE NRG Mucus detection in urine sediment by light microscopy NEGATIVE NRG Complete urinalysis with reflex to culture NO NRG Complete blood count (CBC) with automate d white blood cell (WBC) differential - 05/22/19 02:30 Blood leukocytes automated count (number/volume) 5.6 10*3/uL 4.3-11.0 Blood erythrocytes automated count (number/volume) 3.39 10*6/uL 4.35-5.85 Venous blood hemoglobin measurement (mass/volume) 9.6 g/dL 11.5-16.0 Blood hematocrit (volume fraction) 31 % 35-52 Automated erythrocyte mean corpuscular volume 91 [ foz_us] 80-99 Automated erythrocyte mean corpuscular h emoglobin (mass per erythrocyte) 28 pg 25-34 Automated erythrocyte mean corpuscular h emoglobin concentration measurement (mass/volume) 31 g/dL 32-36 Automated erythrocyte distribution width ratio 16. 7 % 10.0- 14.5 Automated blood platelet count [...] 10*3 1.0-4.0 Blood monocytes automated count (number/volume) 0. 7 10*3 0.0-1.0 Automated eosinophil count 0.1 10*3/uL 0 .0-0.3 Automated blood basophil count (count/volume) 0.0 10*3/uL 0.0-0.1 Comprehensive metabolic panel - 05/22/19 02:30 Serum or plasma sodium measurement (moles/volume) 141 mmol/L 135-145 Serum or plasma potassium measurement (moles/volume) 3.8 mmol/L 3.6-5.0 Serum or plasma chloride measurement (moles/volume) 107 mmol/L 98-107 Carbon dioxide 25 mmol/L 21-32 Serum or plasma anion gap determination (moles/volume) 9 mmol/L 5-14 Serum or plasma urea nitrogen measurement (mass/volume ) 8 mg/dL 7-18 Serum or plasma creatinine measurement (mass/volume) 0.82 mg/dL 0.60-1.30 Serum or plasma urea nitrogen/creatinine mass ratio 10 NRG Serum or plasma creatinine measurement w ith calculation of estimated glomerular filtration rate > NRG Serum or plasma glucose measurement (mass/volume) 97 mg/dL 70-105 Serum or plasma calcium measurement (mass/volume) 8.9 mg/dL 8.5-10.1 Serum or plasma total bilirubin measurement (mass/volu me) 0.4 mg/dL 0.1-1.0 Serum or plasma alkaline phosphatase med surement (enzymatic activity/volume) 105 U/L 40-136 Serum or plasma aspartate aminotransfera se measurement (enzymatic activity/volume) 12 U/L 5-34 Serum or plasma alanine aminotransferase measurement (enzymatic activity/volume) 11 U/L 0-55 Serum or plasma protein measurement (mass/volume) 5.4 g/dL 6.4-8.2 Serum or plasma albumin measurement (mass/volume) 3.3 g/dL 3.2-4.5 CALCIUM CORRECTED 9.5 mg/dL 8.5-10.1 Serum or plasma amylase measurement (enz ymatic activity/volume) - 05/22/19 02:30 Serum or plasma amylase measurement (enzymatic activit y/volume) 49 U/L 25-125 Lipase - 05/22/19 02:30 Lipase 11 U/L 8-78 Complete blood count (CBC) with automate d white blood cell (WBC) differential - 05/23/19 23:10 Blood leukocytes automated count (number/volume) 5.9 10*3/uL 4.3-11.0 Blood erythrocytes automated count (number/volume) 3.73 10*6/uL 4.35-5.85 Venous blood hemoglobin measurement (mass/volume) 10.3 g/dL 11.5-16.0 Blood hematocrit (volume fraction) 33 % 35-52 Automated erythrocyte mean corpuscular volume 89 [ foz_us] 80-99 Automated erythrocyte mean corpuscular h emoglobin (mass per erythrocyte) 28 pg 25-34 Automated erythrocyte mean corpuscular h emoglobin concentration measurement (mass/volume) 31 g/dL 32-36 Automated erythrocyte distribution width ratio 16. 6 % 10.0- 14.5 Automated blood platelet count [...] 10*3 1.0-4.0 Blood monocytes automated count (number/volume) 0. 7 10*3 0.0-1.0 Automated eosinophil count 0.1 10*3/uL 0 .0-0.3 Automated blood basophil count (count/volume) 0.0 10*3/uL 0.0-0.1 Blood type T Indirect antibody screen pa nadeen - 05/23/19 23:10 WRISTBAND NUMBER [id number] NRG ABO+Rh group OP NRG Blood group antibody screen NEGATIVE NR G Comprehensive metabolic panel - 05/23/19 23:10 Serum or plasma sodium measurement (moles/volume) 143 mmol/L 135-145 Serum or plasma potassium measurement (moles/volume) 4.0 mmol/L 3.6-5.0 Serum or plasma chloride measurement (moles/volume) 107 mmol/L 98-107 Carbon dioxide 24 mmol/L 21-32 Serum or plasma anion gap determination (moles/volume) 12 mmol/L 5-14 Serum or plasma urea nitrogen measurement (mass/volume ) 7 mg/dL 7-18 Serum or plasma creatinine measurement (mass/volume) 0.87 mg/dL 0.60-1.30 Serum or plasma urea nitrogen/creatinine mass ratio 8 NRG Serum or plasma creatinine measurement w ith calculation of estimated glomerular filtration rate > NRG Serum or plasma glucose measurement (mass/volume) 87 mg/dL 70-105 Serum or plasma calcium measurement (mass/volume) 9.5 mg/dL 8.5-10.1 Serum or plasma total bilirubin measurement (mass/volu me) 0.5 mg/dL 0.1-1.0 Serum or plasma alkaline phosphatase med surement (enzymatic activity/volume) 111 U/L 40-136 Serum or plasma aspartate aminotransfera se measurement (enzymatic activity/volume) 17 U/L 5-34 Serum or plasma alanine aminotransferase measurement (enzymatic activity/volume) 13 U/L 0-55 Serum or plasma protein measurement (mass/volume) 6.0 g/dL 6.4-8.2 Serum or plasma albumin measurement (mass/volume) 3.7 g/dL 3.2-4.5 CALCIUM CORRECTED 9.7 mg/dL 8.5-10.1 Complete urinalysis with reflex to cultu re - 05/24/19 00:04 Urine color determination YELLOW NRG Urine clarity determination CLEAR NR G Urine pH measurement by test strip 6.5 5-9 Specific gravity of urine by test strip 1.010 1.016-1.022 Urine protein assay by test strip, semi-quantitative NEGATIVE NEGATIVE Urine glucose detection by automated test strip NE GATIVE NEGATIVE Erythrocytes detection in urine sediment by light micr oscopy NEGATIVE NEGATIVE Urine ketones detection by automated test strip NE GATIVE NEGATIVE Urine nitrite detection by test strip NEGATIVE NEGATIVE Urine total bilirubin detection by test strip NEGA TIVE NEGATIVE Urine urobilinogen measurement by automated test strip (mass/volume) NORMAL NORMAL Urine leukocyte esterase detection by dipstick NEG ATIVE NEGATIVE Automated urine sediment erythrocyte cou nt by microscopy (number/high power field) NONE NRG Automated urine sediment leukocyte count by microscopy (number/high power field) NONE NRG Bacteria detection in urine sediment by light microsco py TRACE NRG Squamous epithelial cells detection in u rine sediment by light microscopy 0-2 NRG Crystals detection in urine sediment by light microsco py NONE NRG Casts detection in urine sediment by light microscopy NONE NRG Mucus detection in urine sediment by light microscopy NEGATIVE NRG Complete urinalysis with reflex to culture NO NRG Complete blood count (CBC) with automate d white blood cell (WBC) differential - 06/14/19 13:05 Blood leukocytes automated count (number/volume) 8.4 10*3/uL 4.3-11.0 Blood erythrocytes automated count (number/volume) 4.42 10*6/uL 4.35-5.85 Venous blood hemoglobin measurement (mass/volume) 12.3 g/dL 11.5-16.0 Blood hematocrit (volume fraction) 37 % 35-52 Automated erythrocyte mean corpuscular volume 85 [ foz_us] 80-99 Automated erythrocyte mean corpuscular h emoglobin (mass per erythrocyte) 28 pg 25-34 Automated erythrocyte mean corpuscular h emoglobin concentration measurement (mass/volume) 33 g/dL 32-36 Automated erythrocyte distribution width ratio 15. 5 % 10.0- 14.5 Automated blood platelet count (count/volume) 210 10*3/uL 130-400 Automated blood platelet mean volume measurement 10.5 [foz_us] 7.4-10.4 Automated blood neutrophils/100 leukocytes 78 % 42-75 Automated blood lymphocytes/100 leukocytes 11 % 12-44 Blood monocytes/100 leukocytes 11 % 0-12 Automated blood eosinophils/100 leukocytes 0 % 0-10 Automated blood basophils/100 leukocytes 0 % 0-10 Blood neutrophils automated count (number/volume) 6.6 10*3 1.8-7.8 Blood lymphocytes automated count (number/volume) 0.9 10*3 1.0-4.0 Blood monocytes automated count (number/volume) 0. 9 10*3 0.0-1.0 Automated eosinophil count 0.0 10*3/uL 0 .0-0.3 Automated blood basophil count (count/volume) 0.0 10*3/uL 0.0-0.1 Comprehensive metabolic panel - 06/14/19 13:05 Serum or plasma sodium measurement (moles/volume) 144 mmol/L 135-145 Serum or plasma potassium measurement (moles/volume) 3.1 mmol/L 3.6-5.0 Serum or plasma chloride measurement (moles/volume) 109 mmol/L 98-107 Carbon dioxide 18 mmol/L 21-32 Serum or plasma anion gap determination (moles/volume) 17 mmol/L 5-14 Serum or plasma urea nitrogen measurement (mass/volume ) 14 mg/dL 7-18 Serum or plasma creatinine measurement (mass/volume) 0.79 mg/dL 0.60-1.30 Serum or plasma urea nitrogen/creatinine mass ratio 18 NRG Serum or plasma creatinine measurement w ith calculation of estimated glomerular filtration rate > NRG Serum or plasma glucose measurement (mass/volume) 111 mg/dL 70-105 Serum or plasma calcium measurement (mass/volume) 9.1 mg/dL 8.5-10.1 Serum or plasma total bilirubin measurement (mass/volu me) 0.9 mg/dL 0.1-1.0 Serum or plasma alkaline phosphatase med surement (enzymatic activity/volume) 128 U/L 40-136 Serum or plasma aspartate aminotransfera se measurement (enzymatic activity/volume) 11 U/L 5-34 Serum or plasma alanine aminotransferase measurement (enzymatic activity/volume) 14 U/L 0-55 Serum or plasma protein measurement (mass/volume) 6.3 g/dL 6.4-8.2 Serum or plasma albumin measurement (mass/volume) 3.7 g/dL 3.2-4.5 CALCIUM CORRECTED 9.3 mg/dL 8.5-10.1 Magnesium - 06/14/19 13:05 Magnesium 1.6 mg/dL 1.8-2.4 Serum or plasma C reactive protein measu rement (mass/volume) - 06/14/19 13:05 Serum or plasma C reactive protein measurement (mass/v olume) 2.27 mg/dL 0.00-0.50 [id number] - 06/14/19 13:05 [id number] 14.9 ug/mL 50.0-100.0 Complete urinalysis with reflex to cultu re - 06/14/19 15:15 Urine color determination YELLOW NRG Urine clarity determination CLEAR NR G Urine pH measurement by test strip 6.5 5-9 Specific gravity of urine by test strip 1.015 1.016-1.022 Urine protein assay by test strip, semi-quantitative 1+ NEGATIVE Urine glucose detection by automated test strip NE GATIVE NEGATIVE Erythrocytes detection in urine sediment by light micr oscopy 2+ NEGATIVE Urine ketones detection by automated test strip 4+ NEGATIVE Urine nitrite detection by test strip NEGATIVE NEGATIVE Urine total bilirubin detection by test strip NEGA TIVE NEGATIVE Urine urobilinogen measurement by automated test strip (mass/volume) NORMAL NORMAL Urine leukocyte esterase detection by dipstick 1+ NEGATIVE Automated urine sediment erythrocyte cou nt by microscopy (number/high power field) [HPF] NRG Automated urine sediment leukocyte count by microscopy (number/high power field) [HPF] NRG Bacteria detection in urine sediment by light microsco py NEGATIVE NRG Squamous epithelial cells detection in u rine sediment by light microscopy RARE NRG Crystals detection in urine sediment by light microsco py NONE NRG Casts detection in urine sediment by light microscopy NONE NRG Mucus detection in urine sediment by light microscopy NEGATIVE NRG Complete urinalysis with reflex to culture NO NRG [id number] - 06/25/19 08:45 [id number] 36.2 ug/mL 50.0-100.0 CBC - 11/18/19 10:27 WHITE BLOOD CELL COUNT 5.6 Thousand/uL 3 .8-10.8 RED BLOOD CELL COUNT 4.48 Million/uL 3.8 0-5.10 HEMOGLOBIN 12.5 g/dL 11.7-15.5 HEMATOCRIT 39.8 % 35.0-45.0 MCV 88.8 fL 80.0-100.0 MCH 27.9 pg 27.0-33.0 MCHC 31.4 g/dL 32.0-36.0 RDW 16.3 % 11.0-15.0 PLATELET COUNT 292 Thousand/uL 140-400 MPV 11.0 fL 7.5-12.5 ABSOLUTE NEUTROPHILS 2974 cells/uL 1500- 7800 ABSOLUTE LYMPHOCYTES 2005 cells/uL 850-3 900 ABSOLUTE MONOCYTES 498 cells/uL 200-950 ABSOLUTE EOSINOPHILS 101 cells/uL 15-500 ABSOLUTE BASOPHILS 22 cells/uL 0-200 NEUTROPHILS 53.1 % NRG LYMPHOCYTES 35.8 % NRG MONOCYTES 8.9 % NRG EOSINOPHILS 1.8 % NRG BASOPHILS 0.4 % NRG TSH - 11/18/19 10:27 TSH 3.65 mIU/L 0.40-4.50 VITAMIN B12/FOLATE, SERUM PANEL - 10:27 VITAMIN B12 178 pg/mL 200-1100 FOLATE, SERUM 9.2 ng/mL NRG Complete blood count (CBC) with automate d white blood cell (WBC) differential - 12/24/19 14:30 Blood leukocytes automated count (number/volume) 8.5 10*3/uL 4.3-11.0 Blood erythrocytes automated count (number/volume) 3.94 10*6/uL 4.35-5.85 Venous blood hemoglobin measurement (mass/volume) 11.6 g/dL 11.5-16.0 Blood hematocrit (volume fraction) 35 % 35-52 Automated erythrocyte mean corpuscular volume 90 [ foz_us] 80-99 Automated erythrocyte mean corpuscular h emoglobin (mass per erythrocyte) 29 pg 25-34 Automated erythrocyte mean corpuscular h emoglobin concentration measurement (mass/volume) 33 g/dL 32-36 Automated erythrocyte distribution width ratio 15. 1 % 10.0- 14.5 Automated blood platelet count (count/volume) 282 10*3/uL 130-400 Automated blood platelet mean volume measurement 9.6 [foz_us] 7.4-10.4 Automated blood neutrophils/100 leukocytes 59 % 42-75 Automated blood lymphocytes/100 leukocytes 29 % 12-44 Blood monocytes/100 leukocytes 12 % 0-12 Automated blood eosinophils/100 leukocytes 1 % 0-10 Automated blood basophils/100 leukocytes 0 % 0-10 Blood neutrophils automated count (number/volume) 5.0 10*3 1.8-7.8 Blood lymphocytes automated count (number/volume) 2.4 10*3 1.0-4.0 Blood monocytes automated count (number/volume) 1. 0 10*3 0.0-1.0 Automated eosinophil count 0.1 10*3/uL 0 .0-0.3 Automated blood basophil count (count/volume) 0.0 10*3/uL 0.0-0.1 Whole blood basic metabolic panel - 12/06 07/25 14:30 Serum or plasma sodium measurement (moles/volume) 141 mmol/L 135-145 Serum or plasma potassium measurement (moles/volume) 3.5 mmol/L 3.6-5.0 Serum or plasma chloride measurement (moles/volume) 104 mmol/L 98-107 Carbon dioxide 25 mmol/L 21-32 Serum or plasma anion gap determination (moles/volume) 12 mmol/L 5-14 Serum or plasma urea nitrogen measurement (mass/volume ) 8 mg/dL 7-18 Serum or plasma creatinine measurement (mass/volume) 0.88 mg/dL 0.60-1.30 Serum or plasma urea nitrogen/creatinine mass ratio 9 NRG Serum or plasma creatinine measurement w ith calculation of estimated glomerular filtration rate > NRG Serum or plasma glucose measurement (mass/volume) 96 mg/dL 70-105 Serum or plasma calcium measurement (mass/volume) 9.2 mg/dL 8.5-10.1 Complete blood count (CBC) with automate d white blood cell (WBC) differential - 01/11/20 12:27 Blood leukocytes automated count (number/volume) 10.7 10*3/uL 4.3-11.0 Blood erythrocytes automated count (number/volume) 4.09 10*6/uL 4.35-5.85 Venous blood hemoglobin measurement (mass/volume) 11.5 g/dL 11.5-16.0 Blood hematocrit (volume fraction) 37 % 35-52 Automated erythrocyte mean corpuscular volume 90 [ foz_us] 80-99 Automated erythrocyte mean corpuscular h emoglobin (mass per erythrocyte) 28 pg 25-34 Automated erythrocyte mean corpuscular h emoglobin concentration measurement (mass/volume) 31 g/dL 32-36 Automated erythrocyte distribution width ratio 15. 4 % 10.0- 14.5 Automated blood platelet count (count/volume) 248 10*3/uL 130-400 Automated blood platelet mean volume measurement 10.0 [foz_us] 7.4-10.4 Automated blood neutrophils/100 leukocytes 74 % 42-75 Automated blood lymphocytes/100 leukocytes 14 % 12-44 Blood monocytes/100 leukocytes 12 % 0-12 Automated blood eosinophils/100 leukocytes 1 % 0-10 Automated blood basophils/100 leukocytes 0 % 0-10 Blood neutrophils automated count (number/volume) 7.9 10*3 1.8-7.8 Blood lymphocytes automated count (number/volume) 1.5 10*3 1.0-4.0 Blood monocytes automated count (number/volume) 1. 3 10*3 0.0-1.0 Automated eosinophil count 0.1 10*3/uL 0 .0-0.3 Automated blood basophil count (count/volume) 0.0 10*3/uL 0.0-0.1 Complete urinalysis with reflex to cultu re - 01/11/20 12:27 Urine color determination YELLOW NRG Urine clarity determination CLEAR NR G Urine pH measurement by test strip 6.0 5-9 Specific gravity of urine by test strip 1.020 1.016-1.022 Urine protein assay by test strip, semi-quantitative NEGATIVE NEGATIVE Urine glucose detection by automated test strip NE GATIVE NEGATIVE Erythrocytes detection in urine sediment by light micr oscopy NEGATIVE NEGATIVE Urine ketones detection by automated test strip NE GATIVE NEGATIVE Urine nitrite detection by test strip NEGATIVE NEGATIVE Urine total bilirubin detection by test strip NEGA TIVE NEGATIVE Urine urobilinogen measurement by automated test strip (mass/volume) 0.2 mg/dL < = 1.0 Urine leukocyte esterase detection by dipstick NEG ATIVE NEGATIVE Automated urine sediment erythrocyte cou nt by microscopy (number/high power field) NONE NRG Automated urine sediment leukocyte count by microscopy (number/high power field) NONE NRG Bacteria detection in urine sediment by light microsco py NEGATIVE NRG Squamous epithelial cells detection in u rine sediment by light microscopy NONE NRG Crystals detection in urine sediment by light microsco py NONE NRG Casts detection in urine sediment by light microscopy NONE NRG Mucus detection in urine sediment by light microscopy NEGATIVE NRG Complete urinalysis with reflex to culture NO NRG Blood lactic acid measurement (moles/vol ume) - 01/11/20 12:27 Blood lactic acid measurement (moles/volume) 1.87 mmol/L 0.50-2.00 Comprehensive metabolic panel - 01/11/20 12:27 Serum or plasma sodium measurement (moles/volume) 145 mmol/L 135-145 Serum or plasma potassium measurement (moles/volume) 3.1 mmol/L 3.6-5.0 Serum or plasma chloride measurement (moles/volume) 108 mmol/L 98-107 Carbon dioxide 25 mmol/L 21-32 Serum or plasma anion gap determination (moles/volume) 12 mmol/L 5-14 Serum or plasma urea nitrogen measurement (mass/volume ) 14 mg/dL 7-18 Serum or plasma creatinine measurement (mass/volume) 0.87 mg/dL 0.60-1.30 Serum or plasma urea nitrogen/creatinine mass ratio 16 NRG Serum or plasma creatinine measurement w ith calculation of estimated glomerular filtration rate > NRG Serum or plasma glucose measurement (mass/volume) 118 mg/dL 70-105 Serum or plasma calcium measurement (mass/volume) 9.1 mg/dL 8.5-10.1 Serum or plasma total bilirubin measurement (mass/volu me) 1.0 mg/dL 0.1-1.0 Serum or plasma alkaline phosphatase med surement (enzymatic activity/volume) 91 U/L 40-136 Serum or plasma aspartate aminotransfera se measurement (enzymatic activity/volume) 24 U/L 5-34 Serum or plasma alanine aminotransferase measurement (enzymatic activity/volume) 18 U/L 0-55 Serum or plasma protein measurement (mass/volume) 5.8 g/dL 6.4-8.2 Serum or plasma albumin measurement (mass/volume) 3.5 g/dL 3.2-4.5 CALCIUM CORRECTED 9.5 mg/dL 8.5-10.1 Serum or plasma creatine kinase measurem ent (enzymatic activity/volume) - 01/11/20 12:27 Serum or plasma creatine kinase measurem ent (enzymatic activity/volume) 305 U/L 29-168 CMP - 03/31/20 15:34 GLUCOSE 79 mg/dL 65-99 UREA NITROGEN (BUN) 10 mg/dL 7-25 CREATININE 0.90 mg/dL 0.60-0.93 eGFR NON-AFR. ALBANIAN 64 mL/min/1.73m2 > OR = 60 eGFR 74 mL/min/1.73m2 > OR = 60 BUN/CREATININE RATIO NOT APPLICABLE (calc) 6-22 SODIUM 143 mmol/L 135-146 POTASSIUM 4.0 mmol/L 3.5-5.3 CHLORIDE 105 mmol/L 98-110 CARBON DIOXIDE 29 mmol/L 20-32 CALCIUM 9.0 mg/dL 8.6-10.4 PROTEIN, TOTAL 5.6 g/dL 6.1-8.1 ALBUMIN 3.5 g/dL 3.6-5.1 GLOBULIN 2.1 g/dL (calc) 1.9-3.7 ALBUMIN/GLOBULIN RATIO 1.7 (calc) 1.0-2. 5 BILIRUBIN, TOTAL 0.5 mg/dL 0.2-1.2 ALKALINE PHOSPHATASE 114 U/L 37-153 AST 15 U/L 10-35 ALT 10 U/L 6-29 CBC - 03/31/20 15:34 WHITE BLOOD CELL COUNT 5.5 Thousand/uL 3 .8-10.8 RED BLOOD CELL COUNT 4.42 Million/uL 3.8 0-5.10 HEMOGLOBIN 11.6 g/dL 11.7-15.5 HEMATOCRIT 36.9 % 35.0-45.0 MCV 83.5 fL 80.0-100.0 MCH 26.2 pg 27.0-33.0 MCHC 31.4 g/dL 32.0-36.0 RDW 15.3 % 11.0-15.0 PLATELET COUNT 255 Thousand/uL 140-400 MPV 10.3 fL 7.5-12.5 ABSOLUTE NEUTROPHILS 2992 cells/uL 1500- 7800 ABSOLUTE LYMPHOCYTES 1887 cells/uL 850-3 900 ABSOLUTE MONOCYTES 457 cells/uL 200-950 ABSOLUTE EOSINOPHILS 143 cells/uL 15-500 ABSOLUTE BASOPHILS 22 cells/uL 0-200 NEUTROPHILS 54.4 % NRG LYMPHOCYTES 34.3 % NRG MONOCYTES 8.3 % NRG EOSINOPHILS 2.6 % NRG BASOPHILS 0.4 % NRG CRP - 03/31/20 15:34 C-REACTIVE PROTEIN 2.2 mg/L <8.0 Encounters ACCT No. Visit Date/Time Discharge Status Pt. Type Provider Facility Loc./Unit Complaint [id number] 01/19/2018 04:11:00 Document Registration [id number] 09/30/2014 16:41:00 09/30/2014 23:59: 59 [facility] Outpatient MICHELLE COLEY [id number] 07/15/2014 13:28:00 07/15/2014 23:59: 59 [facility] Outpatient SAMARA ESPITIA APRN [id number] 05/06/2014 09:25:00 05/06/2014 23:59: 59 [facility] Outpatient SAMARA ESPITIA APRN [id number] 04/06/2014 09:02:00 04/06/2014 23:59: 59 CLS Outpatient SAMARA ESPITIA APRN [id number] 02/24/2014 12:55:00 02/24/2014 23:59: 59 CLS Outpatient ESPITIA BULB PLANTERSAMARA Aldrich [id number] 02/04/2014 13:24:00 02/04/2014 23:59: 59 CLS Outpatient ESPITIA BULB PLANTERSAMARA Aldrich [id number] 11/19/2013 10:21:00 11/19/2013 23:59: 59 CLS Outpatient ESPITIA BULB PLANTERSAMARA Aldrich [id number] 09/15/2013 09:11:00 09/15/2013 23:59: 59 CLS Outpatient ESPITIA BULB PLANTERSAMARA [id number] 06/03/2013 13:58:00 06/03/2013 23:59: 59 CLS Outpatient ANDER GRANT DO [id number] 11/18/2012 13:44:00 11/18/2012 23:59: 59 CLS Outpatient ESPITIA SAMARA ALBERT [id number] 10/17/2012 14:16:00 10/17/2012 23:59: 59 CLS Outpatient ESPITIA BULB PLANTERSAMARA Aldrich [id number] 11/10/2011 14:31:00 11/10/2011 23:59: 59 CLS Outpatient [id number] 04/10/2013 11:20:00 Document Registration [id number] 01/24/2013 13:15:00 Document Registration [id number] 01/24/2020 00:00:00 02/19/2020 07:45 :00 DIS Outpatient UNLISTED, UNLISTED [id number] 05/10/2019 09:55:00 05/10/2019 23:59: 00 DIS Outpatient Matt Ragladn [id number] 05/10/2019 01:44:00 05/10/2019 04:45: 00 DIS Outpatient LANI SHIPLEY APRN [facility] ER [id number] 05/05/2019 22:28:00 05/05/2019 23:16: 00 DIS Outpatient GISELA HIGGINBOTHAM [facility] ER [id number] 05/02/2019 12:03:00 05/02/2019 14:22: 00 [id number] 08/16/2018 08:57:00 08/16/2018 10:23: 00 [id number] 08/04/2018 00:35:00 08/04/2018 01:58: 00 DIS Outpatient Jacqui Lewis [facility] ER [id number] 08/01/2018 14:00:00 08/01/2018 15:05: 00 DIS Outpatient Jean Wallace [facility] ER [id number] 07/17/2018 09:42:00 07/17/2018 23:59: 00 DIS Outpatient NINO DOMINGUEZ [id number] 07/17/2018 09:16:00 07/17/2018 23:59: 00 DIS Outpatient NINO DOMINGUEZ [id number] 01/18/2018 00:00:00 04/10/2018 07:48: 00 DIS Outpatient Mac Madden [id number] 02/22/2018 12:04:00 02/22/2018 23:59: 00 DIS Outpatient Mac Madden [id number] 02/12/2018 05:09:00 02/12/2018 08:24: 00 DIS [address]YGISELA [facility] ER [id number] 02/11/2018 06:58:00 02/11/2018 09:30: 00 DIS Outpatient Jac Vanessa [id number] 02/03/2018 00:28:00 02/04/2018 14:40: 00 DIS Outpatient Pavelhcantel Bruce [facility] MED-SURG [id number] 01/14/2018 08:15:00 01/17/2018 14:00: 00 DIS Inpatient Benoit [facility] MED-SURG [id number] 11/17/2017 02:01:00 11/17/2017 06:53: 00 DIS Outpatient Jean Wallaec [facility] ER [id number] 07/23/2017 11:33:00 07/25/2017 14:15: 00 DIS Outpatient [facility] MED-SURG [id number] 01/12/2017 14:08:00 01/13/2017 13:20: 00 DIS Outpatient Obie Matt [id number] 07/19/2018 10:31:21 Document Registration [id number] 01/12/2018 15:04:00 Document Registration [id number] 01/12/2017 14:50:40 Document Registration [id number] 04/27/2020 10:45:00 04/27/2020 23:59: 59 CLS [facility] [id number] 03/31/2020 15:00:00 Document Registration [id number] 11/18/2019 09:15:00 Document Registration [id number] 04/17/2019 09:00:00 Document Registration [id number] 03/13/2019 14:00:00 Document Registration [id number] 01/15/2019 13:15:00 Document Registration [id number] 01/11/2020 12:14:00 15:36:00 DIS Emergency STEPH DAILY [facility] ER FALL [id number] 01/07/2020 14:47:00 15:14:00 DIS Emergency BLU WAGGONER [facility] ER SWELLING OF HANDS AND F EET [id number] 01/06/2020 19:18:00 21:18:00 DIS Emergency DEONNA MOBLEY APRN [facility] ER RECTAL BLEEDING [id number] 12/25/2019 13:20:00 17:13:00 DIS Emergency DEONNA MOBLEY APRN [facility] ER L LEG/TONGUE SWELLING [id number] 12/24/2019 14:21:00 17:05:00 DIS Emergency KIRSTIN GARZA MD [facility] ER MOUTH/TONGUE SWELLING [id number] 10/22/2019 19:22:00 21:00:00 DIS Emergency DEONNA MOBLEY APRN [facility] ER FALL,SHOULDER PAIN [id number] 06/25/2019 08:31:00 23:59:59 CLS Outpatient HALEY MCCLAIN MD [facility] LAB MIGRAINE [id number] 06/14/2019 13:04:00 17:31:00 DIS Emergency ELIEZER LOPEZ MD [facility] ER DEHYDRATION [id number] 06/06/2019 09:27:00 08/02/2 019 23:59:59 CLS Outpatient GUGNANI MD, MAC Pineda [facility] RAD SCREENING [id number] 05/23/2019 21:59:00 01:03:00 DIS Emergency KIRSTIN LORENZO MD [facility] ER RECTAL BLEEDING [id number] 05/22/2019 01:38:00 019 05:11:00 DIS Emergency MELINDA DOTRISTINA Miriam Reed alexander [facility] ER VAGINAL/RECTAL DISCOMFO RT [id number] 05/17/2019 03:45:00 04:49:00 DIS Emergency GREG ESCALANTE, KIRSTIN [place] [facility] ER DIZZY,WEAKNESS [id number] 05/11/2019 13:41:00 16:27:00 DIS Emergency MELINDA LORENA LEDEZMA [facility] ER MIGRAINE [id number] 05/10/2019 18:59:00 22:40:00 DIS Emergency DEONNA MOBLEY BULB PLANTER [facility] ER MIGRAINE [id number] 03/05/2019 15:35:00 20:00:00 DIS Emergency MELINDA LORENA LEDEZMA alexander [facility] ER DEHYDRATED [id number] 09/28/2018 16:14:00 018 20:06:00 DIS Emergency DEONNA MOBLEY BULB PLANTER [facility] ER SORE THROAT/FEVER [id number] 08/29/2018 19:24:00 018 22:02:00 DIS Emergency GREG ESCALANTE, KIRSTIN [place] [facility] ER R LOWER LEG POSS CELLUL ITIS [id number] 05/09/2017 12:18:00 23:59:59 CLS Outpatient RENU CHRISTENSEN MD [facility] RAD 4+ VW[[id number]], [id number] 03/19/2017 09:00:00 23:59:59 CLS Outpatient YURI SEYMOUR MD [facility] RAD DIARRHEA [id number] 06/10/2015 16:09:00 015 11:30:00 DIS Inpatient SANGEETA ESCALANTE, MUKUL [place] [facility] IRF LRFT TIB FIB FRX [id number] 07/08/2019 14:17:00 Document Registration [id number] 07/08/2019 14:17:00 Document Registration [id number] 01/10/2019 09:58:00 Document Registration [id number] 02/29/2012 01:06:00 Document Registration [id number] 05/22/2011 15:24:00 Document Registration [id number] 05/21/2011 20:01:00 Document Registration [id number] 05/14/2011 10:31:00 Document Registration [id number] 11/24/2010 08:50:00 Document Registration [id number] 10/20/2010 08:36:00 Document Registration [id number] 09/23/2010 16:00:00 Document Registration [id number] 09/12/2010 15:57:00 Document Registration [id number] 08/11/2010 15:19:00 Document Registration [id number] 08/10/2010 13:28:00 Document Registration [id number] 08/09/2010 14:33:00 Document Registration [id number] 02/12/2009 11:00:00 Document Registration [id number] 08/15/2007 08:32:00 Document Registration
--- NOTE | 2020-05-29 11:24 | ED Fall/Injury ---
General Chief Complaint: Trauma-Non Activation Stated Complaint: FALL Nursing Triage Note: AMB TO ED PER EMS WAS BENDING OVER AND FELL BACK WARDS. HITTING BACK OF HEAD. Source: patient, EMS Exam Limitations: no limitations History of Present Illness Date Seen by Provider: May 29, 2020 Time Seen by Provider: 10:48 Initial Comments Patient presents ER by EMS from home with chief complaint that she had a fall IN the bathroom getting something out of a cabinet. She fell backwards hitting the back of her head and has about 4-5 out of 10 pain there. She has chronic pain in her back. It is not any worse. She has no numbness or paresthesias that are new. She does have chronic paresthesias from peripheral neuropathy. She is not on any blood thinners. She did not lose consciousness. She was able to crawl and in turn on her emergency dependent and then crawled off the door. When EMS arrived place and propped pillows up under her hips and head. Patient takes tramadol typically for her chronic pain. She has not had any recently and would like some. She's not having any pain anywhere else. She denies losing consciousness fevers chills cough shortness of breath nausea dysuria. Allergies and Home Medications Allergies Coded Allergies: Sulfa (Sulfonamide Antibiotics) (Verified Allergy, Unknown, 05/17/19) Home Medications Amitriptyline HCl 25 Mg Tablet, 25 MG PO HS, (Reported) Aripiprazole 15 Mg Tablet, 15 MG PO DAILY, (Reported) Cholecalciferol (Vitamin D3) 1,000 Unit Tablet, 1,000 UNIT PO DAILY, (Reported) Epinephrine 0.3 Mg/0.3 Ml Auto.injct, 0.3 MG IJ Q15M PRN for angioedema Prescribed by: KIRSTIN GARZA on 12/24/19 165 Gabapentin 300 Mg Capsule, 300 MG PO BID, (Reported) Levothyroxine Sodium 75 Mcg Tablet, 75 MCG PO DAILY, (Reported) Lidocaine 15 Gm Cream..g., 1 GM TP TID PRN for PAIN-SEVERE (8-10) Prescribed by: DEONNA MOBLEY on 01/06/202029 Meclizine HCl 25 Mg Tablet, 25 MG PO Q6H PRN for VERTIGO Prescribed by: KIRSTIN GARZA on 05/17/19 0440 Memantine HCl 5 Mg Tablet, 5 MG PO BID 5 MG PO Q AM and HS. Prescribed by: BLU QUINONES on 06/10/15 1523 Metoprolol Tartrate 50 Mg Tablet, 50 MG PO DAILY, (Reported) Ondansetron 4 Mg Tab.rapdis, 4 MG PO Q6H PRN for NAUSEA/VOMITING Prescribed by: ELIEZER LOPEZ on 06/14/19 1715 Pantoprazole Sodium 40 Mg Tablet.dr, 40 MG PO DAILY, (Reported) Potassium Chloride 20 Meq Tablet.er, 20 MEQ PO BID Prescribed by: STEPH FINN on 01/11/20 1442 Prednisone 10 Mg Tab, 30 MG PO DAILY Prescribed by: REGLA LAWRENCE on 05/11/19 1441 Sucralfate 1 Gm Tablet, 1 GM PO QIDACHS Prescribed by: REGLA LAWRENCE on 03/05/19 191 Sumatriptan Succinate 100 Mg Tablet, 0.5 TAB PO PRN PRN for HEADACHE May repeat in 2 hours; Max 200 MG/24 hours. Prescribed by: BLU QUINONES on 06/10/15 155 Tramadol HCl 50 Mg Tablet, 50 MG PO BID, (Reported) Vitamin E 400 Unit Capsule, 400 UNIT PO DAILY, (Reported) Vortioxetine Hydrobromide 5 Mg Tablet, 5 MG PO DAILY, (Reported) [Biotin] , 10,000 MCG PO Evening Prescribed by: BLU QUINONES on 06/12/15 1530 [Folic Acid 1MG] , 2 MG PO DAILY, (Reported) [Iron 65MG] , 65 MG PO Evening Prescribed by: BLU QUINONES on 06/12/15 1530 [Nitrostat] , 0.4 MG SL UD Q5 min X3 PRN. Prescribed by: BLU QUINONES on 06/10/15 155 [Potassium] , 20 MEQ PO BID, (Reported) Patient Home Medication List Home Medication List Reviewed: Yes Review of Systems Review of Systems Constitutional: No chills Eyes: Denies Blindness, Denies Blurred Vision Ears, Nose, Mouth, Throat: denies ear pain, denies ear discharge Respiratory: No cough, No short of breath Cardiovascular: No chest pain, No edema Gastrointestinal: No abdominal pain, No nausea Genitourinary: No dysuria, No frequency Musculoskeletal: back pain (chronic); No joint pain All Other Systems Reviewed Negative Unless Noted: Yes Past Uoimwqd-Pkflqb-Ddvcmq Hx Patient Social History Alcohol Use: Occasionally Uses Alcohol Beverage of Choice: Wine Recreational Drug Use: No Smoking Status: Former Smoker Type Used: Cigarettes Former Smoker, Quit: May 13, 2009 2nd Hand Smoke Exposure: No Recent Foreign Travel: No Contact w/Someone Who Travel: No Recent Infectious Disease Expo: No Recent Hopitalizations: No Immunizations Up To Date Tetanus Booster (TDap): More than 5yrs PED Vaccines UTD: Yes Date of Pneumonia Vaccine: Sep 04, 2019 Date of Influenza Vaccine: Sep 04, 2019 Seasonal Allergies Seasonal Allergies: Yes Past Medical History Surgeries: Yes Abdominal, Adenoidectomy, Bowel Surgery, Gallbladder, Hysterectomy, Oophorectomy, Rectal, Tonsillectomy Respiratory: Yes Pneumonia, COPD Cardiac: Yes (PSVT) High Cholesterol, Hypertension 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: Yes 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, Menopausal Genitourinary: No Gastrointestinal: Yes Chronic Constipation, Chronic Diarrhea, Hiatal Hernia, Gall Bladder Disease Musculoskeletal: Yes Osteoporosis, Arthritis, Fibromyalgia, Rheumatoid Arthritis, Chronic Back Pain Endocrine: Yes Hypothyroidsim HEENT: Yes Glaucoma Cancer: Yes Cervical Did You Recieve Any Treatments: Yes What Type of Treatment Did You: Surgical Intervention Psychosocial: Yes (EXTENSIVE PSYCH ISSUES) Anxiety, Bipolar, Depression Integumentary: No Blood Disorders: No Family Medical History No Pertinent Family Hx Physical Exam Vital Signs Vital Signs - First Documented 05/29/20 11:01 Temp 36.9 Pulse 91 Resp 18 B/P (MAP) 163/107 (125) Pulse Ox 94 Capillary Refill : Less Than 3 Seconds Height, Weight, BMI Height: 5'2.00" Weight: 125lbs. 0oz. 56.187016em; 27.00 BMI Method:Stated General Appearance: WD/WN, mild distress HEENT: PERRL/EOMI, pharynx normal Neck: full range of motion, supple, normal inspection Cardiovascular: normal peripheral pulses, regular rate, rhythm Respiratory: lungs clear, normal breath sounds, no respiratory distress, no accessory muscle use Peripheral Pulses: 2+ Radial Pulses (R), 2+ Radial Pulses (L) Gastrointestinal: normal bowel sounds, non tender, soft Back: normal inspection, no vertebral tenderness Extremities: normal range of motion, non-tender, normal inspection, no pedal edema Neurologic/Psychiatric: stakes player II-XII nml as tested, no motor/sensory deficits, alert, normal mood/affect, oriented x 3 Skin: normal color, warm/dry Becki Coma Score Best Eye Response: (4) Open Spontaneously Best Verbal Response: (5) Oriented Best Motor Response: (6) Obeys Commands Gable Total: 15 Progress/Results/Core Measures Results/Orders My Orders Orders - KIRSTIN GARZA Ct Head/Cervical Spine Wo (05/29/20 11:11) Tramadol Tablet (Ultram Tablet) (05/29/20 11:15) Medications Given in ED Current Medications Medications Dose Ordered Sig/Mana Route Start Time Stop Time Status Last Admin Dose Admin Tramadol HCl 50 mg ONCE ONCE PO 05/29/20 11:15 05/29/20 11:16 DC 05/29/20 13:16 50 MG Vital Signs/I&O 05/29/20 11:01 Temp 36.9 Pulse 91 Resp 18 B/P (MAP) 163/107 (125) Pulse Ox 94 Blood Pressure Mean: 125 Progress Progress Note #1: Time: 11:[address] of the head and C-spine. If this clears her c-collar then we wi ll give her a tramadol for her discomfort. Progress Note #2: Time: 13:34 Progress Note C-collar cleared clinically and radiographically. She says her pain is significantly improving after the tramadol. Were going to have staff get her up and walk her around and as long as she's mobile she is eager to go home. Diagnostic Imaging Diagonstic Imaging: CT (without IV contrast) Plain Films/CT/US/NM/MRI: c-spine, head Comments NAME: YOVANY BLISS [facility] REC#: [id number] PT STATUS: REG ER : 1945 PHYSICIAN: KIRSTIN GARZA MD ADMIT DATE: 05/29/20/ER Draft Date of Exam:05/29/20 CT HEAD/CERVICAL SPINE WO PROCEDURE: CT head and CT cervical spine without contrast. TECHNIQUE: Multiple contiguous axial images were obtained through the brain and cervical spine without the use of intravenous contrast. Sagittal and coronal reformations through the cervical spine were then performed. Auto Exposure Controls were utilized during the CT exam to meet ALARA standards for radiation dose reduction. INDICATION: Trauma COMPARISON: 01/11/2020 FINDINGS: Mild atrophy. No intracranial hemorrhage. No intracranial mass, mass effect, midline shift, herniation, hydrocephalus, or extra-axial fluid collection. Focal hypodensity within the inferior right basal ganglia is again identified, consistent with a chronic lacunar infarction versus dilated perivascular space. Background mild chronic small vessel white matter ischemic disease is again noted. No CT evidence of an acute ischemic infarction. The bilateral ocular lenses are absent. Otherwise, the orbits are unremarkable. The paranasal sinuses are clear. The calvarium and extracalvarial soft tissues are unremarkable. Mild apex right curvature of the cervical spine. 2 mm anterolisthesis of C4 on C5. No additional significant anterolisthesis or retrolisthesis. Alignment of the left occipital joint is well maintained. Besides endplate degenerative changes, vertebral body heights are well-maintained. Moderate disc space height loss at C3/C4 through T1/T2. No acute fracture or dislocation. No destructive osseous process. Scattered facet joint degenerative changes and uncovertebral joint hypertrophy are present. Moderate right neural foraminal stenosis at C3/C4. Moderate bilateral neural foraminal stenosis at C5/C6. Severe right neural foraminal stenosis at C6/C7. Low-grade osseous central canal stenosis within the lower cervical spine. Biapical pleural parenchymal scarring. No apical pneumothorax. Mild vascular calcifications. Paraspinal soft tissues are otherwise unremarkable. IMPRESSION: No acute cranial abnormality with mild atrophy and mild background chronic ischemic changes. No acute osseous abnormality in the cervical spine with stable degenerative anterolisthesis of C4 on C5 with additional multilevel degenerative changes as above. Dictated on workstation # [id number] Dict: 05/29/20 1305 Trans: 05/29/20 1315 [facility] [id number] Interpreted by: MILAGRO BARR MD Electronically signed by: Reviewed: Reviewed by Me Departure Impression Primary Impression: Fall Qualified Codes: W19.XXXA - Unspecified fall, initial encounter Additional Impression: Headache Qualified Codes: R51 - Headache Disposition: 01 HOME, SELF-CARE Condition: Stable Departure-Patient Inst. Decision time for Depature: 13:39 Referrals: MAC HANDY MD (PCP/Family) Primary Care Physician Patient Instructions: Preventing Falls Add. Discharge Instructions: Tylenol and tramadol as necessary for your headache. Ice packs may be helpful for your head for the first day or 2. If you become confused or have intractable nausea vomiting, weakness or other worrisome symptoms then please return to the nearest ER. All discharge instructions reviewed with patient and/or family. Voiced understanding. KIRSTIN GARZA May 29, 2020 11:24
--- NOTE | 2020-05-29 12:56 | NUR ---
RETURN FROM CT. COLLAR REMAIN IN PLACE
--- NOTE | 2020-05-29 13:16 | Diagnostic Imaging Report ---
PROCEDURE: CT head and CT cervical spine without contrast. TECHNIQUE: Multiple contiguous axial images were obtained through the brain and cervical spine without the use of intravenous contrast. Sagittal and coronal reformations through the cervical spine were then performed. Auto Exposure Controls were utilized during the CT exam to meet ALARA standards for radiation dose reduction. INDICATION: Trauma COMPARISON: 01/11/2020 FINDINGS: Mild atrophy. No intracranial hemorrhage. No intracranial mass, mass effect, midline shift, herniation, hydrocephalus, or extra-axial fluid collection. Focal hypodensity within the inferior right basal ganglia is again identified, consistent with a chronic lacunar infarction versus dilated perivascular space. Background mild chronic small vessel white matter ischemic disease is again noted. No CT evidence of an acute ischemic infarction. The bilateral ocular lenses are absent. Otherwise, the orbits are unremarkable. The paranasal sinuses are clear. The calvarium and extracalvarial soft tissues are unremarkable. Mild apex right curvature of the cervical spine. 2 mm anterolisthesis of C4 on C5. No additional significant anterolisthesis or retrolisthesis. Alignment of the left occipital joint is well maintained. Besides endplate degenerative changes, vertebral body heights are well-maintained. Moderate disc space height loss at C3/C4 through T1/T2. No acute fracture or dislocation. No destructive osseous process. Scattered facet joint degenerative changes and uncovertebral joint hypertrophy are present. Moderate right neural foraminal stenosis at C3/C4. Moderate bilateral neural foraminal stenosis at C5/C6. Severe right neural foraminal stenosis at C6/C7. Low-grade osseous central canal stenosis within the lower cervical spine. Biapical pleural parenchymal scarring. No apical pneumothorax. Mild vascular calcifications. Paraspinal soft tissues are otherwise unremarkable. IMPRESSION: No acute cranial abnormality with mild atrophy and mild background chronic ischemic changes. No acute osseous abnormality in the cervical spine with stable degenerative anterolisthesis of C4 on C5 with additional multilevel degenerative changes as above. Dictated by: Dictated on workstation # [id number]
--- NOTE | 2020-05-29 13:44 | NUR ---
AMB IN [place] WITHOUT PROBLEM
[2020-05-29 13:57] VITALS: BP 153/100
== END 2020-05-29 13:52 | disposition home or self-care (01) ==
LOC: EDUNIT# 11:01 → ER 11:02
DX: R51 Headache (principal); G89.29 Other chronic pain; M54.9 Dorsalgia, unspecified; I10 Essential (primary) hypertension; J44.9 Chronic obstructive pulmonary disease, unspecified; G62.9 Polyneuropathy, unspecified; E03.9 Hypothyroidism, unspecified; F41.9 Anxiety disorder, unspecified; F31.9 Bipolar disorder, unspecified; M79.7 Fibromyalgia; M06.9 Rheumatoid arthritis, unspecified; R40.2142 Coma scale, eyes open, spontaneous, at arrival to emergency department; R40.2252 Coma scale, best verbal response, oriented, at arrival to emergency department; R40.2362 Coma scale, best motor response, obeys commands, at arrival to emergency department; Z79.890 Hormone replacement therapy; Z79.891 Long term (current) use of opiate analgesic; Z88.2 Allergy status to sulfonamides; Z85.41 Personal history of malignant neoplasm of cervix uteri; Z79.52 Long term (current) use of systemic steroids; Z87.891 Personal history of nicotine dependence; W18.39XA Other fall on same level, initial encounter; W22.8XXA Striking against or struck by other objects, initial encounter; Y92.002 Bathroom of unspecified non-institutional (private) residence as the place of occurrence of the external cause
CPT/HCPCS: 70450; 72125

== ENCOUNTER 2020-06-06 08:11 | Emergency (ER) | payer MEDICARE, MEDICAID ==
[~2020-06-06] VITALS: Ht 157 cm; Wt 54.4 kg
[2020-06-06] MEDS ORDERED: FAMOTIDINE 20MG/2ML IV (PEPCID) IV STA (08:16)
[2020-06-06] MEDS ORDERED: NS IV 500 ML 500 ML IV ONE (08:16)
[2020-06-06] MEDS ORDERED: METOCLOPRAMIDE INJ 10 MG/2 ML (REGLAN) IVP STA (08:16)
--- NOTE | 2020-06-06 08:21 | ED General ---
General Chief Complaint: General Problems/Pain Stated Complaint: ARM PAIN Source of Information: Patient Exam Limitations: No Limitations History of Present Illness Date Seen by Provider: Jun 06, 2020 Time Seen by Provider: 08:15 Initial Comments 75-year-old female who presents with nausea and cramping. Patient has chronic nausea as being evaluated for it. She has a "hiatal hernia" that she reports they say she needed surgery for. Patient has Zofran at home. She has no acute changes in her nausea. Patient also complaint of right hand cramping today. Patient reports she gets pain cramping at least once a month. That this was similar to all her previous episodes. She has no decreased range of motion. She has no slurred speech, no focal weakness. Patient denies any fevers chills vomiting diarrhea chest pain or any other systemic complaints at this time. Allergies and Home Medications Allergies Coded Allergies: Sulfa (Sulfonamide Antibiotics) (Verified Allergy, Unknown, 05/17/19) Home Medications Amitriptyline HCl 25 Mg Tablet, 25 MG PO HS, (Reported) Aripiprazole 15 Mg Tablet, 15 MG PO DAILY, (Reported) Cholecalciferol (Vitamin D3) 1,000 Unit Tablet, 1,000 UNIT PO DAILY, (Reported) Epinephrine 0.3 Mg/0.3 Ml Auto.injct, 0.3 MG IJ Q15M PRN for angioedema Prescribed by: KIRSTIN GARZA on 12/24/19 165 Gabapentin 300 Mg Capsule, 300 MG PO BID, (Reported) Levothyroxine Sodium 75 Mcg Tablet, 75 MCG PO DAILY, (Reported) Lidocaine 15 Gm Cream..g., 1 GM TP TID PRN for PAIN-SEVERE (8-10) Prescribed by: DEONNA MOBLEY on 01/06/202029 Meclizine HCl 25 Mg Tablet, 25 MG PO Q6H PRN for VERTIGO Prescribed by: KIRSTIN GARZA on 05/17/19 0440 Memantine HCl 5 Mg Tablet, 5 MG PO BID 5 MG PO Q AM and HS. Prescribed by: BLU QUINONES on 06/10/15 1523 Metoprolol Tartrate 50 Mg Tablet, 50 MG PO DAILY, (Reported) Ondansetron 4 Mg Tab.rapdis, 4 MG PO Q6H PRN for NAUSEA/VOMITING Prescribed by: ELIEZER LOPEZ on 06/14/19 1715 Pantoprazole Sodium 40 Mg Tablet.dr, 40 MG PO DAILY, (Reported) Potassium Chloride 20 Meq Tablet.er, 20 MEQ PO BID Prescribed by: STEPH FINN on 01/11/20 144 Prednisone 10 Mg Tab, 30 MG PO DAILY Prescribed by: REGLA LAWRENCE on 05/11/19 1441 Sucralfate 1 Gm Tablet, 1 GM PO QIDACHS Prescribed by: REGLA LAWRENCE on 03/05/19 191 Sumatriptan Succinate 100 Mg Tablet, 0.5 TAB PO PRN PRN for HEADACHE May repeat in 2 hours; Max 200 MG/24 hours. Prescribed by: BLU QUINONES on 06/10/15 155 Tramadol HCl 50 Mg Tablet, 50 MG PO BID, (Reported) Vitamin E 400 Unit Capsule, 400 UNIT PO DAILY, (Reported) Vortioxetine Hydrobromide 5 Mg Tablet, 5 MG PO DAILY, (Reported) [Biotin] , 10,000 MCG PO Evening Prescribed by: BLU QUINONES on 06/12/15 153 [Folic Acid 1MG] , 2 MG PO DAILY, (Reported) [Iron 65MG] , 65 MG PO Evening Prescribed by: BLU QUINONES on 06/12/15 1530 [Nitrostat] , 0.4 MG SL UD Q5 min X3 PRN. Prescribed by: BLU QUINONES on 06/10/15 155 [Potassium] , 20 MEQ PO BID, (Reported) Patient Home Medication List Home Medication List Reviewed: Yes Review of Systems Review of Systems Constitutional: No chills, No fever, No malaise Respiratory: No cough, No short of breath Cardiovascular: No chest pain, No palpitations Gastrointestinal: No abdominal pain, No constipation, No diarrhea; nausea; No vomiting Musculoskeletal: see HPI Skin: no symptoms reported Psychiatric/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: No Symptoms Reported Hematologic/Lymphatic: No Symptoms Reported Immunological/Allergic: no symptoms reported Past Rosdiac-Jurarq-Naqtox Hx Past Med/Social Hx: Reviewed Nursing Past Med/Soc Hx Patient Social History Alcohol Use: Denies Use Number of Drinks Today: Alcohol Beverage of Choice: Wine Recreational Drug Use: No Smoking Status: Former Smoker Type Used: Cigarettes Former Smoker, Quit: May 13, 2009 2nd Hand Smoke Exposure: No Recent Hopitalizations: No Immunizations Up To Date Tetanus Booster (TDap): More than 5yrs PED Vaccines UTD: Yes Date of Pneumonia Vaccine: Sep 04, 2019 Date of Influenza Vaccine: Sep 04, 2019 Seasonal Allergies Seasonal Allergies: Yes Past Medical History Surgeries: Yes Abdominal, Adenoidectomy, Bowel Surgery, Gallbladder, Hysterectomy, Oophorectomy, Rectal, Tonsillectomy Respiratory: Yes Pneumonia, COPD Cardiac: Yes (PSVT) High Cholesterol, Hypertension 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: Yes Neuropathy 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 History: Hysterectomy, Menopausal Genitourinary: No Gastrointestinal: Yes Chronic Constipation, Chronic Diarrhea, Hiatal Hernia, Gall Bladder Disease Musculoskeletal: Yes Osteoporosis, Arthritis, Fibromyalgia, Rheumatoid Arthritis, Chronic Back Pain Endocrine: Yes Hypothyroidsim HEENT: Yes Glaucoma Cancer: Yes Cervical Did You Recieve Any Treatments: Yes What Type of Treatment Did You: Surgical Intervention Psychosocial: Yes (EXTENSIVE PSYCH ISSUES) Anxiety, Bipolar, Depression Integumentary: No Blood Disorders: No Family Medical History No Pertinent Family Hx Physical Exam Vital Signs Vital Signs - First Documented 06/06/20 08:14 Temp 36.8 Pulse 89 Resp 18 B/P (MAP) 165/105 (125) Pulse Ox 98 Capillary Refill : Height, Weight, BMI Height: 5'2.00" Weight: 125lbs. 0oz. 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 Norm as Tested Skin: Normal Color, Warm/Dry Progress/Results/Core Measures Suspected Sepsis SIRS Temperature: Pulse: Respiratory Rate: Laboratory Tests 06/06/20 08:24: White Blood Count 7.8 Blood Pressure / Mean: Laboratory Tests 06/06/20 08:24: Creatinine 0.99, Platelet Count 236, Total Bilirubin 0.5 Results/Orders Lab Results Laboratory Tests Test 06/06/20 08:24 Range/Units White Blood Count 7.8 4.3-11.0 10^3/uL Red Blood Count 3.80 L 4.35-5.85 10^6/uL Hemoglobin 10.2 L 11.5-16.0 G/DL Hematocrit 33 L 35-52 % Mean Corpuscular Volume 87 80-99 FL Mean Corpuscular Hemoglobin 27 25-34 PG Mean Corpuscular Hemoglobin Concent 31 L 32-36 G/DL Red Cell Distribution Width 18.0 H 10.0-14.5 % Platelet Count 236 130-400 10^3/uL Mean Platelet Volume 9.7 7.4-10.4 FL Neutrophils (%) (Auto) 74 42-75 % Lymphocytes (%) (Auto) 13 12-44 % Monocytes (%) (Auto) 12 0-12 % Eosinophils (%) (Auto) 1 0-10 % Basophils (%) (Auto) 0 0-10 % Neutrophils # (Auto) 5.7 1.8-7.8 X 10^3 Lymphocytes # (Auto) 1.0 1.0-4.0 X 10^3 Monocytes # (Auto) 1.0 0.0-1.0 X 10^3 Eosinophils # (Auto) 0.1 0.0-0.3 10^3/uL Basophils # (Auto) 0.0 0.0-0.1 10^3/uL Sodium Level 142 135-145 MMOL/L Potassium Level 3.8 3.6-5.0 MMOL/L Chloride Level 110 H 98-107 MMOL/L Carbon Dioxide Level 23 21-32 MMOL/L Anion Gap 9 5-14 MMOL/L Blood Urea Nitrogen 17 7-18 MG/DL Creatinine 0.99 0.60-1.30 MG/DL Estimat Glomerular Filtration Rate 55 BUN/Creatinine Ratio 17 Glucose Level 131 H 70-105 MG/DL Calcium Level 9.0 8.5-10.1 MG/DL Corrected Calcium 9.1 8.5-10.1 MG/DL Total Bilirubin 0.5 0.1-1.0 MG/DL Aspartate Amino Transf (AST/SGOT) 16 5-34 U/L Alanine Aminotransferase (ALT/SGPT) 18 0-55 U/L Alkaline Phosphatase 87 40-136 U/L Total Protein 6.1 L 6.4-8.2 GM/DL Albumin 3.9 3.2-4.5 GM/DL Lipase 18 8-78 U/L My Orders Orders - HOUSER,EZIO L DO Metoclopramide Injection (Reglan Injecti (06/06/20 08:16) Famotidine Injection (Pepcid Injection) (06/06/20 08:16) Ed Iv/Invasive Line Start (06/06/20 08:16) Ed Iv/Invasive Line Start (06/06/20 08:16) Ns Iv 500 Ml (Sodium Chloride 0.9%) (06/06/20 08:16) Abdomen/Kub 1view (06/06/20 08:16) Cbc With Automated Diff (06/06/20 08:16) Comprehensive Metabolic Panel (06/06/20 08:16) Lipase (06/06/20 08:16) Medications Given in ED Current Medications Medications Dose Ordered Sig/Mana Route Start Time Stop Time Status Last Admin Dose Admin Sodium Chloride 500 ml @ 0 mls/hr Q0M ONCE IV 06/06/20 08:16 06/06/20 08:19 DC 06/06/20 08:32 0 MLS/HR Vital Signs/I&O 06/06/20 08:14 Temp 36.8 Pulse 89 Resp 18 B/P (MAP) 165/105 (125) Pulse Ox 98 Capillary Refill : Progress Note : Time: 09:30 Progress Note Patient with mild constipation on her x-ray. Patient's other complaints or all chronic with no focal findings. I did discuss need to follow-up with her primary care provider and her general surgeon regarding her concern for her hiatal hernia and her chronic nausea. Patient is stable and will be discharged Diagnostic Imaging Diagonstic Imaging: Xray Plain Films/CT/US/NM/MRI: abdomen Comments [facility] [place], [place] NAME: [facility] REC#: [id number] PT STATUS: REG ER : 1945 PHYSICIAN: EZIO HOUSER DO ADMIT DATE: 06/06/20/ER Draft Date of Exam:06/06/20 ABDOMEN/KUB 1VIEW EXAMINATION: AP abdomen INDICATION: Back pain. Fall. FINDINGS: There is advanced rotatory dextroscoliosis of the thoracolumbar spine with apex at approximately the T12-L1 level. There appear to be severe endplate changes and a vacuum disc at that level. There is limited assessment of vertebral body height. The bowel gas pattern appears nonobstructed. There are surgical clips in right upper quadrant. There are chain sutures present within the pelvis. There is moderate stool at the level of the rectum. IMPRESSION: 1. Bowel gas pattern appears nonobstructed with moderate stool at the level of the rectum. There are chain sutures in the pelvis. 2. Advanced thoracolumbar rotatory dextroscoliosis with severe endplate changes at T12-L1 and L1-L2. Departure Impression Primary Impression: Constipation Qualified Codes: K59.00 - Constipation, unspecified Additional Impression: Chronic nausea Disposition: HOME, SELF-CARE Condition: Stable Departure-Patient Inst. Referrals: MAC HANDY MD (PCP/Family) Primary Care Physician Patient Instructions: Constipation, Adult (DC), Nausea and Vomiting, Adult (DC) Add. Discharge Instructions: MiraLAX 1-3 times daily as needed for soft daily stool Follow-up with your primary care provider in general surgeon regarding her chronic nausea for further management and recommendations Emergency department focuses on treating and ruling out life-threatening diseases. Whenever possible, a diagnosis is given. However, most patients are given an impression based on their history, physical exam, and workup during your brief time in the ER. Information about probable diagnosis and other educational material has been provided. Please take the time to read and understand this information. It is very important that you follow up with a physician as discussed during the visit today. Failure to adhere to your follow-up instructions may lead to severe disability, injury, or so please make sure to keep your appointments or obtain one as requested. Please keep in mind the emergency department is not designed to your primary care or "family doctor" and nonurgent issues are best evaluated by an outpatient physician All discharge instructions reviewed with patient and/or family. Voiced understanding. EZIO HOUSER DO Jun 06, 2020 08:21
[2020-06-06 08:36] LABS: BASOPHILS % (AUTO) 0 % (0-10); EOSINOPHILS # (AUTO) 0.1 10^3/uL (0.0-0.3); EOSINOPHILS % (AUTO) 1 % (0-10); HEMATOCRIT 33 % (35-52); HEMOGLOBIN 10.2 G/DL (11.5-16.0); LYMPHOCYTES % (AUTO) 13 % (12-44); MEAN CORPUSCULAR HEMOGLOBIN 27 PG (25-34); MEAN CORPUSCULAR HGB CONC 31 G/DL (32-36); MEAN CORPUSCULAR VOLUME 87 FL (80-99); MEAN PLATELET VOLUME 9.7 FL (7.4-10.4); MONOCYTES % (AUTO) 12 % (0-12); NEUTROPHILS # (AUTO) 5.7 X 10^3 (1.8-7.8); NEUTROPHILS % (AUTO) 74 % (42-75); PLATELET COUNT 236 10^3/uL (130-400); WHITE BLOOD COUNT 7.8 10^3/uL (4.3-11.0)
[2020-06-06 08:41] LABS: ALBUMIN 3.9 GM/DL (3.2-4.5); POTASSIUM 3.8 MMOL/L (3.6-5.0)
[2020-06-06 08:44] LABS: TOTAL PROTEIN 6.1 GM/DL (6.4-8.2)
[2020-06-06 08:46] LABS: BILIRUBIN,TOTAL 0.5 MG/DL (0.1-1.0)
[2020-06-06 08:47] LABS: CREATININE SERUM 0.99 MG/DL (0.60-1.30)
--- NOTE | 2020-06-06 09:21 | Diagnostic Imaging Report ---
EXAMINATION: AP abdomen INDICATION: Back pain. Fall. FINDINGS: There is advanced rotatory dextroscoliosis of the thoracolumbar spine with apex at approximately the T12-L1 level. There appear to be severe endplate changes and a vacuum disc at that level. There is limited assessment of vertebral body height. The bowel gas pattern appears nonobstructed. There are surgical clips in right upper quadrant. There are chain sutures present within the pelvis. There is moderate stool at the level of the rectum. IMPRESSION: 1. Bowel gas pattern appears nonobstructed with moderate stool at the level of the rectum. There are chain sutures in the pelvis. 2. Advanced thoracolumbar rotatory dextroscoliosis with severe endplate changes at T12-L1 and L1-L2. Dictated by: Dictated on workstation # [id number]
--- NOTE | 2020-06-06 10:26 | NUR ---
PT BROTHER IN LAW CALLED FOR PT TRANSPORT HOME FROM THE HOSPITAL. REPORTS HE WILL HAVE TO FIND SOMEONE TO WATCH HIS DISABLED BUT HE WOULD BE HERE TO PICK PT UP.
--- NOTE | 2020-06-06 11:15 | NUR ---
PT ASSISTED TO BATHROOM VIA WC AT THIS TIME.
[2020-06-06 11:45] VITALS: BP 173/96
== END 2020-06-06 11:45 | disposition home or self-care (01) ==
LOC: EDUNIT# 08:11 → ER 08:12
DX: K59.09 Other constipation (principal); R11.0 Nausea; K44.9 Diaphragmatic hernia without obstruction or gangrene; J44.9 Chronic obstructive pulmonary disease, unspecified; I47.1 Supraventricular tachycardia; E78.00 Pure hypercholesterolemia, unspecified; I10 Essential (primary) hypertension; G62.9 Polyneuropathy, unspecified; K52.9 Noninfective gastroenteritis and colitis, unspecified; M81.0 Age-related osteoporosis without current pathological fracture; M19.90 Unspecified osteoarthritis, unspecified site; M79.10 Myalgia, unspecified site; M06.9 Rheumatoid arthritis, unspecified; M54.9 Dorsalgia, unspecified; G89.29 Other chronic pain; E03.9 Hypothyroidism, unspecified; H40.9 Unspecified glaucoma; F41.9 Anxiety disorder, unspecified; F31.9 Bipolar disorder, unspecified; Z79.890 Hormone replacement therapy; Z79.899 Other long term (current) drug therapy; Z85.41 Personal history of malignant neoplasm of cervix uteri; Z88.2 Allergy status to sulfonamides; Z87.891 Personal history of nicotine dependence
CPT/HCPCS: 36415; 74018; 80053; 83690; 85025

== ENCOUNTER 2020-06-08 00:47 | Emergency (ER) | payer MEDICARE, MEDICAID ==
[~2020-06-08] VITALS: Ht 157 cm; Wt 56.7 kg
[2020-06-08] MEDS ORDERED: ASPIRIN 81 MG CHEW (CHILDREN'S ASA) PO ONE (01:00)
--- NOTE | 2020-06-08 01:23 | ED General ---
General Chief Complaint: Cardiac/General Problems Stated Complaint: ELEVATED BLOOD PRESSURE Source of Information: Patient (LIMITED HISTORIAN, POOR MEMORY), EMS, Old Records History of Present Illness Date Seen by Provider: Jun 08, 2020 Time Seen by Provider: 00:50 Initial Comments PT ARRIVES VIA EMS FROM HOME--LIVES ALONE PT CALLED EMS FOR ELEVATED BLOOD PRESSURE AND ANXIETY ON ARRIVAL, PT STATES SHE IS HERE BECAUSE SHE HAD "CHEST PAINS" "AND I KNOW MY BLOOD PRESSURE WAS UP BECAUSE MY FACE AND NECK WERE RED" BUT DID NOT CHECK HER BLOOD PRESSURE AT HOME STATES SHE IS NOT HAVING ANY CHEST PAIN NOW AND FEELS FINE AND DOES NOT HAVE ANY COMPLAINTS OF ANY KIND AT THIS TIME PT HAS SIGNIFICANT ANXIETY ISSUES AND IS SUPPOSED TO TAKE XANAX TID--CLAIMS HER LAST DOSE OF XANAX WAS 0900 IN THE MORNING. RX FILLED 05/25/20 PT STATES "I'VE BEEN UNDER SO MUCH STRESS" BUT CANNOT GIVE SPECIFICS. STATES SHE HAS NOT BEEN TO SLEEP YET TONIGHT AND STATES THAT SHE OFTEN DOES NOT SLEEP AT ALL AT NIGHT, AND THEN SLEEPS DURING THE DAY. PT DENIES MISSING ANY DOSES OF HER BLOOD PRESSURE MEDICATION--STATES SHE HAS A "HELPER" 5 DAYS A WEEK, WHO SETS UP HER MEDICATIONS FOR HER NO SHORTNESS OF BREATH NO COUGH NO FEVER NO SWELLING IN LEGS/FEET OR PAIN IN CALVES NO KNOWN COVID-19 EXPOSURE OR SICK CONTACTS PT WITH A MULTITUDE OF VISITS FOR VARIOUS COMPLAINTS--THIS IS PT'S 8TH VISIT IN 2019 SEEN HERE 05/29/20 FOR A FALL--NO SIGNIFICANT INJURY FOUND--PT HAS HISTORY OF FREQUENT FALLS AND USES A WALKER PT ALSO HERE YESTERDAY--06/06/20 FOR NAUSEA AND ABDOMINAL CRAMPING ( CHRONIC COMPLAINTS) AND DX WITH CONSTIPATION, ALSO A CHRONIC PROBLEM--HAD LAB DONE AND WAS NORMAL. HAS HISTORY OF CROHN'S AND RHEUMATOID ARTHRITIS AND GETS PERIODIC INFUSIONS VIA PORT FOR RHEUMATOID ARTHRITIS NO GI COMPLAINTS AT THIS TIME. PT ALSO WELL KNOWN AT OTHER LOCAL FACILITIES WELL, INCLUDING [facility] PT STATES SHE HAS AN APPOINTMENT WITH DR. HANDY THIS MORNING AT 10:00 AM IN [place]. STATES SOMEONE FROM TRANSPORTATION IS PICKING HER UP AT 0800 THIS MORNING PCP: DR. HANDY SEES [facility] Allergies and Home Medications Allergies Coded Allergies: Sulfa (Sulfonamide Antibiotics) (Verified Allergy, Unknown, 05/17/19) Home Medications Amitriptyline HCl 25 Mg Tablet, 25 MG PO HS, (Reported) Aripiprazole 15 Mg Tablet, 15 MG PO DAILY, (Reported) Cholecalciferol (Vitamin D3) 1,000 Unit Tablet, 1,000 UNIT PO DAILY, (Reported) Epinephrine 0.3 Mg/0.3 Ml Auto.injct, 0.3 MG IJ Q15M PRN for angioedema Prescribed by: KIRSTIN GARZA on 12/24/19 1658 Gabapentin 300 Mg Capsule, 300 MG PO BID, (Reported) Levothyroxine Sodium 75 Mcg Tablet, 75 MCG PO DAILY, (Reported) Lidocaine 15 Gm Cream..g., 1 GM TP TID PRN for PAIN-SEVERE (8-10) Prescribed by: DEONNA MOBLEY on 01/06/202029 Meclizine HCl 25 Mg Tablet, 25 MG PO Q6H PRN for VERTIGO Prescribed by: KIRSTIN GARZA on 05/17/19 044 Memantine HCl 5 Mg Tablet, 5 MG PO BID 5 MG PO Q AM and HS. Prescribed by: BLU QUINONES on 06/10/15 1523 Metoprolol Tartrate 50 Mg Tablet, 50 MG PO DAILY, (Reported) Ondansetron 4 Mg Tab.rapdis, 4 MG PO Q6H PRN for NAUSEA/VOMITING Prescribed by: ELIEZER LOPEZ on 06/14/19 1715 Pantoprazole Sodium 40 Mg Tablet.dr, 40 MG PO DAILY, (Reported) Potassium Chloride 20 Meq Tablet.er, 20 MEQ PO BID Prescribed by: STEPH FINN on 01/11/20 1442 Prednisone 10 Mg Tab, 30 MG PO DAILY Prescribed by: REGLA LAWRENCE on 05/11/19 1441 Sucralfate 1 Gm Tablet, 1 GM PO QIDACHS Prescribed by: REGLA LAWRENCE on 03/05/19 1914 Sumatriptan Succinate 100 Mg Tablet, 0.5 TAB PO PRN PRN for HEADACHE May repeat in 2 hours; Max 200 MG/24 hours. Prescribed by: BLU QUINONES on 06/10/15 1555 Tramadol HCl 50 Mg Tablet, 50 MG PO BID, (Reported) Vitamin E 400 Unit Capsule, 400 UNIT PO DAILY, (Reported) Vortioxetine Hydrobromide 5 Mg Tablet, 5 MG PO DAILY, (Reported) [Biotin] , 10,000 MCG PO Evening Prescribed by: BLU QUINONES on 06/12/15 153 [Folic Acid 1MG] , 2 MG PO DAILY, (Reported) [Iron 65MG] , 65 MG PO Evening Prescribed by: BLU QUINONES on 06/12/15 1530 [Nitrostat] , 0.4 MG SL UD Q5 min X3 PRN. Prescribed by: BLU QUINONES on 06/10/15 1555 [Potassium] , 20 MEQ PO BID, (Reported) Patient Home Medication List Home Medication List Reviewed: Yes Review of Systems Review of Systems Constitutional: no symptoms reported EENTM: no symptoms reported Respiratory: no symptoms reported Cardiovascular: see HPI, chest pain Gastrointestinal: see HPI Genitourinary: no symptoms reported Musculoskeletal: no symptoms reported Skin: no symptoms reported Psychiatric/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: See HPI, Anxiety Past Bhrmmwx-Xocgdh-Dvzzai Hx Past Med/Social Hx: Reviewed and Corrections made Patient Social History Alcohol Use: Past History ("HEVAY USE" IN PAST--"YEARS AGO" ) Alcohol Beverage of Choice: Wine Recreational Drug Use: No Smoking Status: Former Smoker (1 PPD) Type Used: Cigarettes Former Smoker, Quit: May 13, 2009 2nd Hand Smoke Exposure: No Recent Hopitalizations: No Immunizations Up To Date Tetanus Booster (TDap): More than 5yrs PED Vaccines UTD: Yes Date of Pneumonia Vaccine: Sep 04, 2019 Date of Influenza Vaccine: Sep 04, 2019 Seasonal Allergies Seasonal Allergies: Yes Past Medical History Surgeries: Yes (PORT;HYST/BSO;BOWEL/RECTAL SURGERY;HIATAL HERNIA REPAIR;EGD/C- SCOPES) Abdominal, Adenoidectomy, Bowel Surgery, Gallbladder, Hysterectomy, Oophorectomy, Rectal, Tonsillectomy Respiratory: Yes Pneumonia, COPD Cardiac: Yes (PSVT; RBBB) High Cholesterol, Hypertension 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: Yes Dementia, Headaches /Migraines, Neuropathy, Vertigo 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, 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 Genitourinary: No Gastrointestinal: Yes (BOWEL/RECTAL SURGERY;RECTAL PROLAPSE REPAIR;HIATAL HERNIA REPAIR; U.COLITIS) Colitis, Gastroesophageal Reflux, Crohns Disease, Chronic Constipation, Chronic Diarrhea, Hiatal Hernia, Gall Bladder Disease, Irritable Bowel Musculoskeletal: Yes (FALLS, USES WALKER) Osteoporosis, Arthritis, Fibromyalgia, Rheumatoid Arthritis, Chronic Back Pain Endocrine: Yes Hypothyroidsim HEENT: Yes Glaucoma Cancer: Yes Cervical Did You Recieve Any Treatments: Yes What Type of Treatment Did You: Surgical Intervention Psychosocial: Yes (EXTENSIVE PSYCH ISSUES) Anxiety, Bipolar, Depression Integumentary: No Blood Disorders: No Family Medical History No Pertinent Family Hx PSH: -HYSTERECTOMY/BILATERAL SALPINGO-OOPHORECTOMY -BOWEL SURGERY FOR OBSTRUCTION -LAPAROSCOPY -RECTAL PROLAPSE REPAIR/SIGMOID RESECTION -UMBILICAL HERNIA REPAIR -HIATAL HERNIA REPAIR -HEMORRHOIDECTOMY -TONSILLECTOMY/ADENOIDECTOMY -CHOLECYSTECTOMY -PORT LEFT CHEST HAS CHRONIC RECTAL PAIN COMPLAINTS Physical Exam Vital Signs Vital Signs - First Documented 06/08/20 00:49 Temp 36.0 Pulse 87 Resp 20 B/P (MAP) 179/107 (131) Pulse Ox 98 O2 Delivery Room Air Capillary Refill : Height, Weight, BMI Height: 5'2.00" Weight: 125lbs. 0oz. 56.588654dz; 22.00 BMI Method:Stated General Appearance: No Apparent Distress, WD/WN, Other (SMILING/LAUGHING, PLEASANT, VERY TALKATIVE. AMBULATES WITH A WALKER WITHOUT DIFFICULTY. DOES NOT APPEAR TO BE IN ANY DISCOMFORT OR DISTRESS WHATSOEVER. ) HEENT: PERRL/EOMI Neck: Full Range of Motion, Normal Inspection, Non Tender, Supple Respiratory: Normal Breath Sounds, No Accessory Muscle Use, No Respiratory Distress Cardiovascular: Regular Rate, Rhythm, No Edema, No JVD, No Murmur, Normal Peripheral Pulses Gastrointestinal: Normal Bowel Sounds, No Organomegaly, No Pulsatile Mass, Non Tender, Soft Back: No CVA Tenderness Extremity: Normal Capillary Refill, Normal Inspection, Normal Range of Motion, Non Tender, No Calf Tenderness, No Pedal Edema Neurologic/Psychiatric: Alert, Oriented x3 (BUT LIMITED MEMORY), No Motor/Sensory Deficits, Normal 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, 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 Norm as Tested Skin: Normal Color, Warm/Dry Progress/Results/Core Measures Suspected Sepsis SIRS Temperature: Pulse: Respiratory Rate: Laboratory Tests 06/08/20 01:05: White Blood Count 8.0 Blood Pressure / Mean: Laboratory Tests 06/08/20 01:05: Creatinine 0.92, INR Comment 1.0, Platelet Count 266, Total Bilirubin 0.4 Results/Orders Lab Results Laboratory Tests Test 06/08/20 01:05 06/08/20 01:15 Range/Units White Blood Count 8.0 4.3-11.0 10^3/uL Red Blood Count 3.96 L 4.35-5.85 10^6/uL Hemoglobin 10.7 L 11.5-16.0 G/DL Hematocrit 34 L 35-52 % Mean Corpuscular Volume 86 80-99 FL Mean Corpuscular Hemoglobin 27 25-34 PG Mean Corpuscular Hemoglobin Concent 31 L 32-36 G/DL Red Cell Distribution Width 17.4 H 10.0-14.5 % Platelet Count 266 130-400 10^3/uL Mean Platelet Volume 9.9 7.4-10.4 FL Neutrophils (%) (Auto) 62 42-75 % Lymphocytes (%) (Auto) 26 12-44 % Monocytes (%) (Auto) 11 0-12 % Eosinophils (%) (Auto) 1 0-10 % Basophils (%) (Auto) 0 0-10 % Neutrophils # (Auto) 4.9 1.8-7.8 X 10^3 Lymphocytes # (Auto) 2.1 1.0-4.0 X 10^3 Monocytes # (Auto) 0.9 0.0-1.0 X 10^3 Eosinophils # (Auto) 0.1 0.0-0.3 10^3/uL Basophils # (Auto) 0.0 0.0-0.1 10^3/uL Prothrombin Time 13.4 12.2-14.7 SEC INR Comment 1.0 0.8-1.4 Activated Partial Thromboplast Time 28 24-35 SEC Sodium Level 144 135-145 MMOL/L Potassium Level 3.4 L 3.6-5.0 MMOL/L Chloride Level 109 H 98-107 MMOL/L Carbon Dioxide Level 23 21-32 MMOL/L Anion Gap 12 5-14 MMOL/L Blood Urea Nitrogen 13 7-18 MG/DL Creatinine 0.92 0.60-1.30 MG/DL Estimat Glomerular Filtration Rate 60 BUN/Creatinine Ratio 14 Glucose Level 97 70-105 MG/DL Calcium Level 9.2 8.5-10.1 MG/DL Corrected Calcium 9.2 8.5-10.1 MG/DL Magnesium Level 2.0 1.6-2.4 MG/DL Total Bilirubin 0.4 0.1-1.0 MG/DL Aspartate Amino Transf (AST/SGOT) 18 5-34 U/L Alanine Aminotransferase (ALT/SGPT) 16 0-55 U/L Alkaline Phosphatase 96 40-136 U/L Total Creatine Kinase 72 29-168 U/L Creatine Kinase MB 2.2 <6.6 NG/ML Myoglobin 41.3 10.0-92.0 NG/ML Troponin I < 0.028 <0.028 NG/ML B-Type Natriuretic Peptide 53.2 <100.0 PG/ML Total Protein 6.3 L 6.4-8.2 GM/DL Albumin 4.0 3.2-4.5 GM/DL Amylase Level 75 25-125 U/L Lipase 27 8-78 U/L Valproic Acid (Depakene) Level < 2.0 L 50.0-100.0 UG/ML Urine Color YELLOW Urine Clarity SL CLOUDY Urine pH 6.0 5-9 Urine Specific Chicken 1.020 1.016-1.022 Urine Protein NEGATIVE NEGATIVE Urine Glucose (UA) NEGATIVE NEGATIVE Urine Ketones NEGATIVE NEGATIVE Urine Nitrite NEGATIVE NEGATIVE Urine Bilirubin NEGATIVE NEGATIVE Urine Urobilinogen 0.2 < = 1.0 MG/DL Urine Leukocyte Esterase TRACE H NEGATIVE Urine RBC (Auto) NEGATIVE NEGATIVE Urine RBC 0-2 /HPF Urine WBC 0-2 /HPF Urine Squamous Epithelial Cells 2-5 /HPF Urine Crystals NONE /LPF Urine Bacteria TRACE /HPF Urine Casts NONE /LPF Urine Mucus NEGATIVE /LPF Urine Culture Indicated NO My Orders Orders - REGLA LAWRENCE DO Ekg Tracing (06/08/20 00:54) Monitor-Rhythm Ecg Trace Only (06/08/20 00:54) Cbc With Automated Diff (06/08/20 00:59) Magnesium (06/08/20 00:59) Chest 1 View, Ap/Pa Only (06/08/20 00:59) Ekg Tracing (06/08/20 00:59) Comprehensive Metabolic Panel (06/08/20 00:59) Myoglobin Serum (06/08/20 00:59) Protime With Inr (06/08/20:59) Partial Thromboplastin Time (06/08/20 00:59) O2 (06/08/20 00:59) Ed Iv/Invasive Line Start (06/08/20 00:59) Creatine Kinase (06/08/20 00:59) Creatine Kinase Mb (06/08/20 00:59) Lipase (06/08/20 00:59) Amylase (06/08/20 00:59) BNP (06/08/20 00:59) Aspirin Chewable Tablet (Baby Aspirin Ch (06/08/20 01:00) Ua Culture If Indicated (06/08/20 00:59) Troponin I (06/08/20 01:05) Valproic Acid (06/08/20 01:05) Hydralazine Injection (Apresoline Inject (06/08/20 02:00) Lorazepam Injection (Ativan Injection) (06/08/20 02:00) Medications Given in ED Current Medications Medications Dose Ordered Sig/Mana Route Start Time Stop Time Status Last Admin Dose Admin Aspirin 324 mg ONCE ONCE PO 06/08/20 01:00 06/08/20 01:01 DC 06/08/20 01:23 324 MG Hydralazine HCl 10 mg ONCE ONCE IV 06/08/20 02:00 06/08/20 02:17 DC 06/08/20 02:10 10 MG Lorazepam 1 mg ONCE ONCE IVP 06/08/20 02:00 06/08/20 02:17 DC 06/08/20 02:09 1 MG Vital Signs/I&O 06/08/20 00:49 Temp 36.0 Pulse 87 Resp 20 B/P (MAP) 179/107 (131) Pulse Ox 98 O2 Delivery Room Air Capillary Refill : Progress Note : Progress Note GIVEN ASPIRIN ON ARRIVAL GIVEN HYDRALAZINE FOR ELEVATED BLOOD PRESSURE GIVEN ATIVAN FOR ANXIETY NO DETERIORATION IN PTS' CONDITION DURING ER STAY BP DOWN AND PT STATES SHE IS MORE RELAXED AT DISMISSAL PT HAD NO COMPLAINTS OF CHEST PAIN OR ANY OTHER COMPLAINTS FOR REMAINDER OF ER STAY ECG Initial ECG Impression Date: Jun 08, 2020 Initial ECG Impression Time: 00:59 Initial ECG Rate: 87 Initial ECG Rhythm: Normal Sinus (RBBB) Initial ECG Comparisson: Unchanged Diagnostic Imaging Comments CXR--NO ACUTE PROCESS, PENDING RADIOLOGIST REVIEW Reviewed: Reviewed by Me Departure Impression Primary Impression: Anxiety Additional Impressions: HTN (hypertension) Chest pain Disposition: HOME, SELF-CARE Condition: Improved Departure-Patient Inst. Referrals: MAC HANDY MD (PCP/Family) Primary Care Physician Patient Instructions: Chest Pain (DC), High Blood Pressure (DC), Anxiety, Adult (DC) Add. Discharge Instructions: HOME, REST TAKE YOUR MEDICATIONS PRESCRIBED KEEP YOUR APPOINTMENT WITH DR. HANDY TODAY All discharge instructions reviewed with patient and/or family. Voiced understanding. REGLA LAWRENCE DO Jun 08, 2020 01:23
[2020-06-08 01:25] LABS: BILIRUBIN,URINE NEGATIVE (NEGATIVE); CLARITY,URINE SL CLOUDY; COLOR,URINE YELLOW; GLUCOSE, URINE (UA) NEGATIVE (NEGATIVE); KETONES,URINE NEGATIVE (NEGATIVE); LEUKOCYTE ESTERASE ,URINE TRACE (NEGATIVE); NITRITE,URINE NEGATIVE (NEGATIVE); PROTEIN,URINE NEGATIVE (NEGATIVE)
[2020-06-08 01:35] LABS: BASOPHILS % (AUTO) 0 % (0-10); EOSINOPHILS # (AUTO) 0.1 10^3/uL (0.0-0.3); EOSINOPHILS % (AUTO) 1 % (0-10); HEMATOCRIT 34 % (35-52); HEMOGLOBIN 10.7 G/DL (11.5-16.0); LYMPHOCYTES # (AUTO) 2.1 X 10^3 (1.0-4.0); LYMPHOCYTES % (AUTO) 26 % (12-44); MEAN CORPUSCULAR HEMOGLOBIN 27 PG (25-34); MEAN CORPUSCULAR HGB CONC 31 G/DL (32-36); MEAN CORPUSCULAR VOLUME 86 FL (80-99); MEAN PLATELET VOLUME 9.9 FL (7.4-10.4); MONOCYTES # (AUTO) 0.9 X 10^3 (0.0-1.0); MONOCYTES % (AUTO) 11 % (0-12); NEUTROPHILS # (AUTO) 4.9 X 10^3 (1.8-7.8); NEUTROPHILS % (AUTO) 62 % (42-75); PLATELET COUNT 266 10^3/uL (130-400); RED CELL DISTRIBUTION WIDTH 17.4 % (10.0-14.5)
[2020-06-08 01:37] LABS: BACTERIA,URINE TRACE /HPF; RBC,URINE 0-2 /HPF; WBC,URINE 0-2 /HPF
[2020-06-08 01:46] LABS: ALANINE AMINOTRANSFERASE 16 U/L (0-55); ALKALINE PHOSPHATASE 96 U/L (40-136); AMYLASE 75 U/L (25-125); BILIRUBIN,TOTAL 0.4 MG/DL (0.1-1.0); BUN/CREATININE RATIO 14; CALCIUM 9.2 MG/DL (8.5-10.1); CARBON DIOXIDE 23 MMOL/L (21-32); CHLORIDE 109 MMOL/L (98-107); CREATINE KINASE 72 U/L (29-168); CREATININE SERUM 0.92 MG/DL (0.60-1.30); GFR ESTIMATED 60; GLUCOSE 97 MG/DL (70-105); LIPASE 27 U/L (8-78); POTASSIUM 3.4 MMOL/L (3.6-5.0); PROTHROMBIN TIME PATIENT 13.4 SEC (12.2-14.7); SODIUM 144 MMOL/L (135-145); TOTAL PROTEIN 6.3 GM/DL (6.4-8.2)
[2020-06-08 01:54] LABS: CREATINE KINASE MB 2.2 NG/ML (<6.6)
[2020-06-08] MEDS ORDERED: hydrALAZINE (APESOLINE) 20 MG/ML VIAL IV ONE (02:00)
[2020-06-08] MEDS ORDERED: LORazepam INJ 2 MG/ML (ATIVAN) VIAL IVP ONE (02:00)
[2020-06-08 02:20] LABS: VALPROIC ACID < 2.0 UG/ML (50.0-100.0)
[2020-06-08 02:46] VITALS: BP 158/79
--- NOTE | 2020-06-08 07:10 | Diagnostic Imaging Report ---
INDICATION: Hypertension, chest pain. TECHNIQUE: Single view chest 1:39 AM. CORRELATION STUDY: 05/22/2019 FINDINGS: Left-sided Uhyljr-k-Ctal catheter is unchanged. Heart size and mediastinum are stable. Probable hiatal hernia. Chronic appearing changes about the lung parenchyma. Small area of nodularity in the right mid lung field, stable. Postoperative changes of a left shoulder arthroplasty. IMPRESSION: 1. Negative for acute abnormality of the chest. Chronic appearing changes about lung parenchyma. Dictated by: Dictated on workstation # [id number]
== END 2020-06-08 02:46 | disposition home or self-care (01) ==
LOC: EDUNIT# 00:47 → ER 00:49
DX: F41.9 Anxiety disorder, unspecified (principal); I10 Essential (primary) hypertension; R07.9 Chest pain, unspecified; Z88.2 Allergy status to sulfonamides; F31.9 Bipolar disorder, unspecified; F03.90 Unspecified dementia, unspecified severity, without behavioral disturbance, psychotic disturbance, mood disturbance, and anxiety; K21.9 Gastro-esophageal reflux disease without esophagitis; J44.9 Chronic obstructive pulmonary disease, unspecified; G43.909 Migraine, unspecified, not intractable, without status migrainosus; E03.9 Hypothyroidism, unspecified; Z79.890 Hormone replacement therapy; Z87.891 Personal history of nicotine dependence; Z85.41 Personal history of malignant neoplasm of cervix uteri; Z79.52 Long term (current) use of systemic steroids
CPT/HCPCS: 36415; 71045; 80053; 80164; 81000; 82150; 82550; 82553; 83690; 83735; 83874; 83880; 84484; 85025; 85610; 85730; 93005; 93041; 96374; 96375

== ENCOUNTER 2020-06-08 20:06 | Emergency (ER) | payer MEDICARE, MEDICAID ==
[2020-06-08 20:49] LABS: BASOPHILS % (AUTO) 0 % (0-10); EOSINOPHILS # (AUTO) 0.1 10^3/uL (0.0-0.3); EOSINOPHILS % (AUTO) 2 % (0-10); HEMATOCRIT 34 % (35-52); HEMOGLOBIN 10.8 G/DL (11.5-16.0); LYMPHOCYTES # (AUTO) 1.3 X 10^3 (1.0-4.0); LYMPHOCYTES % (AUTO) 23 % (12-44); MEAN CORPUSCULAR HEMOGLOBIN 28 PG (25-34); MEAN CORPUSCULAR HGB CONC 32 G/DL (32-36); MEAN CORPUSCULAR VOLUME 87 FL (80-99); MONOCYTES # (AUTO) 0.8 X 10^3 (0.0-1.0); MONOCYTES % (AUTO) 13 % (0-12); NEUTROPHILS # (AUTO) 3.6 X 10^3 (1.8-7.8); NEUTROPHILS % (AUTO) 62 % (42-75); PLATELET COUNT 244 10^3/uL (130-400); RED CELL DISTRIBUTION WIDTH 18.1 % (10.0-14.5); WHITE BLOOD COUNT 5.8 10^3/uL (4.3-11.0)
[2020-06-08] MEDS ORDERED: ACETAMINOPHEN 500 MG TAB (TYLENOL) PO ONE (21:00)
[2020-06-08 21:02] LABS: PROTHROMBIN TIME PATIENT 13.6 SEC (12.2-14.7)
[2020-06-08 21:03] LABS: ALANINE AMINOTRANSFERASE 14 U/L (0-55); ALBUMIN 3.7 GM/DL (3.2-4.5); ALKALINE PHOSPHATASE 89 U/L (40-136); BILIRUBIN,TOTAL 0.5 MG/DL (0.1-1.0); BUN/CREATININE RATIO 13; CALCIUM 9.1 MG/DL (8.5-10.1); CARBON DIOXIDE 23 MMOL/L (21-32); CHLORIDE 111 MMOL/L (98-107); CREATINE KINASE 45 U/L (29-168); GFR ESTIMATED > 60; GLUCOSE 93 MG/DL (70-105); MAGNESIUM 2.1 MG/DL (1.6-2.4); POTASSIUM 3.6 MMOL/L (3.6-5.0); SODIUM 147 MMOL/L (135-145)
[2020-06-08 21:12] LABS: CREATINE KINASE MB 1.4 NG/ML (<6.6)
--- OUTSIDE RECORDS SUMMARY | 2020-06-08 21:54 | XMS REPORT ---
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 Name Role Phone Migration, Doctor Unavailable Unavailable PROBLEMS Type Condition ICD9-CM Code [id number] Code Onset Dates Condition S tatus SNOMED Code Problem Stage 1 skin ulcer of sacral region L98.429 Active Problem Rotator cuff tendonitis M75.80 March, Act alyssa 121686923 Problem Closed fracture of left distal tibia S82.302A Jan, Active 69174824 Problem Hypokalemia E87.6 March, Active 82535 004 Problem Generalized anxiety disorder F41.1 Jun, 201 1 Active 22285729 Problem Diverticulitis of both small and large intestine without perforation or abscess without bleeding K57.52 Feb, Active 307 369551 Problem 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 May, Active 987081442 Problem Essential hypertension I10 Active 71960400 Problem Anemia D64.9 Sep, Active 1735337 00 Problem 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, limited to b reakdown of skin L97.511 Active Problem Generalized abdominal pain R10.84 Sep, Active 923565586 Problem Chronic pain G89.29 Aug, Active 8242 3001 Problem SOB (shortness of breath) R06.02 Nov, A ctive 576852840 Problem CKD (chronic kidney disease) stage 3, GFR 30-59 ml/min N18.3 Apr, Active 936600581 Problem Diastolic dysfunction I51.9 Jan, Activ e 9297248 Problem Ulcerative colitis K51.90 Jul, Active 71771564 Problem Rheumatoid arthritis M06.9 Sep, Active 64027453 Problem PVC (premature ventricular contraction) I49.3 Nov, Active 91481768 Problem Moderate episode of recurrent major depressive disorder F33.1 Active 689318598 Problem Iron deficiency anemia secondary to inadequate d ietary iron intake D50.8 Active 470251367 Problem 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 Active [id number] ALLERGIES No Information ENCOUNTERS Encounter Location Date Diagnosis [address] [id number], [place] [address] Jul, [address] [id number], [place] [address] May, Choking, initial encounter T 17.308A and Injury of head, subsequent encounter S09.90XD [address] [id number], [place] [address] May, [facility] [address] [facility] [id number] [address] [place] [address] May, [facility] [address] [facility] [id number] [address] [place] [address] May, [address] [id number], [place] [address] May, [address] [id number], [place] [address] May, [address] [id number], [place] [address] Apr, [address] [id number] [place] [address] Apr, [address] [id number] [place] [address] Apr, Congenital hypothyroidism wi thout goiter E03.1 ; Diastolic dysfunction I51.9 ; Rheumatoid arthritis M06.9 ; Chronic obstructive pulmonary disease, unspecified COPD type J44.9 ; Ulcerative colitis K51.90 ; CKD (chronic kidney disease) stage 3, GFR 30-59 ml/min N18.3 and Essential hypertension I10 [facility] [address] [facility] [id number] [address] [place] [address] 09 Apr, 2020 Pain in right leg M79.604 an d Pain in left leg M79.[address] [id number], [place] [address] Apr, [facility] [address] [facility] [id number] [address] [place] [address] Apr, Nausea R11.0 [facility] [address] [facility] [id number] [address] [place] [address] March, Fever, unspecified fever cau se R50.9 and Rheumatoid arthritis M06.[address] [id number], [place] [address] March, [facility] [address] [facility] [id number] [address] [place] [address] March, Fever, unspecified fever cau se R50.9 and Rheumatoid arthritis M06.9 [facility] [address] [facility] [id number] [address] [place] [address] March, Nausea R11.[address] [id number], [place] [address] March, [address] [id number], [place] [address] Feb, [address] [id number], [place] [address] Feb, [address] [id number], [place] [address] 27 Jan, 2020 Nausea alone R11.[address] [id number], [place] [address] 17 Jan, 2020 [facility] [address] [facility] [id number] [address] [place] [address] 13 Jan, 2020 Arthralgia of left temporoma ndibular joint M26.[address] [id number], [place] [address] Jan, [address] [id number], [place] [address] 12 Jan, 2020 Ulcerative colitis K51.90 ; CKD (chronic kidney disease) stage 3, GFR 30-59 ml/min N18.3 ; Essential hypertension I10 ; Rheumatoid arthritis with rheumatoid factor of right hand without organ or systems involvement M05.741 ; Intrinsic eczema L20.84 and Rectal prolapse K62.3 [facility] [address] [facility] [id number] [address] [place] [address] 12 Jan, 2020 [facility] [address] [facility] [id number] [address] [place] [address] 10 Jan, 2020 [facility] [address] [facility] [id number] [address] [place] [address] Jan, [facility] [address] [facility] [id number] [address] [place] [address] Jan, [facility] [address] [facility] [id number] [address] [place] [address] 05 Jan, [address] [id number], [place] [address] Jan, [address] [id number], [place] [address] Jan, [address] [id number], [place] [address] 04 Jan, 2020 [facility] [place] [address] [facility] [id number] [place] [address] Jan, [facility] [address] [facility] [id number] [address] [place] [address] Dec, Skin infection L08.9 and His tory of pneumonia Z87.[address] [id number], [place] [address] Dec, [facility] [address] [facility] [id number] [address] [place] [address] Dec, [facility] [address] [facility] [id number] [address] [place] [address] Dec, [place] [address] [facility] [id number] [address] [place] [address] Dec, [facility] [address] [facility] [id number] [address] [place] [address] Dec, Allergic reaction, initial e ncounter T78.40XA and Swollen upper lip R22.[address] [id number], [place] [address] Dec, [address] [id number], [place] [address] Dec, [facility] [address] [facility] [id number] [address] [place] [address] 13 Dec, 2019 Cough R05 [address] [id number], [place] [address] 11 Dec, 2019 Iron deficiency anemia secon michell to inadequate dietary iron intake D50.[address] [id number], [place] [address] 11 Dec, 2019 [facility] Z00.00 ; 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, 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 ; Chronic obstructive pulmonary disease, unspecified COPD type J44.9 ; Ulcerative colitis K51.90 ; CKD (chronic kidney disease) stage 3, GFR 30-59 ml/min N18.3 ; 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 ; B12 deficiency E53.8 and Rheumatoid arthritis with rheumatoid factor of right hand without organ or systems involvement M05.[address] [id number] [place] [address] 03 Dec, [address] [id number], [place] [address] Nov, [address] 340[address] [id number], [place] [address] 14 Nov, 2019 Other specified peripheral v ascular diseases I73.89 ; Hypertensive heart disease with heart failure I11.0 ; 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 ; Rheumatoid arthritis with rheumatoid factor of right hand without organ or systems involvement M05.741 ; 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 ; Anemia, unspecified type D64.9 and Moderate episode of recurrent major depressive disorder F33.[address] [id number], [place] [address] Nov, [address] [id number], [place] [address] Nov, [address] [id number], [place] [address] Nov, [address] [id number], [place] [address] Nov, [facility] [address] [facility] [id number] [address] [place] [address] Oct, Rhinitis, unspecified type J 31.0 and Concussion without loss of consciousness, subsequent encounter S06.0X0D [address] 340[address] [id number], [place] [address] Oct, [address] [id number], [place] [address] Oct, [address] [id number], [place] [address] Aug, [facility] [place] [address] [id number] [place] [address] Aug, [facility] [place] [address] [id number] [place] [address] Aug, [facility] [place] [address] [id number] [place] [address] Jul, [facility] [address] [facility] [id number] [address] [place] [address] Jul, Right hip pain M25.551 [facility] [place] [address] [id number] [place] [address] Jul, [facility] [place] [address] [id number] [place] [address] Jul, [facility] [place] [address] [id number] [place] [address] Jun, Rheumatoid arthritis M06.9 ; Ulcerative colitis K51.90 and Rectal prolapse K62.3 [facility] [place] [address] [id number] [place] [address] Jun, [facility] [place] [address] [id number] [place] [address] Jun, [facility] [address] [facility] [id number] [place] [address] Jun, COPD exacerbation J44.1 [facility] [place] [address] [id number] [place] [address] Jun, [facility] [place] [address] [id number] [place] [address] May, [facility] [place] [address] [id number] [place] [address] May, Diastolic dysfunction I51.9 [facility] [place] [address] [id number] [place] [address] May, Rectal prolapse K62.3 ; Rheu matoid arthritis M06.9 ; Diastolic dysfunction I51.9 and CKD (chronic kidney disease) stage 3, GFR 30-59 ml/min N18.3 [facility] [place] [address] [id number] [place] [address] May, [facility] [place] [address] [id number] [place] [address] May, [facility] [place] [address] [facility] [id number] [place] [address] May, Inflammation, skin L08.9 and Non-intractable vomiting with nausea, unspecified vomiting type R11.2 [facility] [place] [address] 340 [id number], [place] [address] May, [facility] [place] [address] [id number], [place] [address] Apr, [facility] [place] [address] [id number], [place] [address] Apr, Acute ethmoidal sinusitis, r ecurrence not specified J01.[address] [facility] [place] [address] [facility] [id number] [place] [address] Apr, Sore throat J02.9 and Oral thrush B37.0 [facility] [address] [facility] [id number] [place] [address] Apr, Screening for breast cancer Z12.39 [facility] [place] [address] [id number], [place] [address] Apr, [facility] [place] [address] 340[address] [id number], [place] [address] Apr, Rheumatoid arthritis M06.9 [facility] [place] [address] 340[address] [id number], [place] [address] March, [facility] [place] [address] [id number], [place] [address] March, [facility] [place] [address] [id number] [place] [address] March, [facility] [place] [address] 340 [id number], [place] [address] March, [address] 340 [id number], [place] [address] March, Ulcerative colitis K51.90 an d 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 340 [id number], [place] [address] Feb, [address] 340 [id number], [place] [address] Feb, [facility] [address] [facility] [id number] [address] [place] [address] Jan, [address] [id number], [place] [address] Jan, Diastolic dysfunction I51.9 ; Rheumatoid arthritis M06.9 ; Ulcerative colitis K51.90 ; Essential hypertension I10 ; Moderate episode of recurrent major depressive disorder F33.1 and Iron deficiency anemia secondary to inadequate dietary iron intake D50.8 [facility] [place] [address] 340 [id number], [place] [address] Jan, [facility] [place] [address] [id number], [place] [address] Jan, Acute bronchitis, unspecifie d organism J20.9 and 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 [facility] [address] [facility] [id number] [place] [address] Dec, [address] 340 [id number], [place] [address] Dec, [facility] [address] [facility] [id number] [place] [address] Nov, Viral upper respiratory illness J06.9 and Nausea alone R11.0 [facility] [address] [id number] [address] [place] [address], [place] [address] Oct, [facility] [address] [id number] [address] [place] [address], [place] [address] Oct, [facility] [address] [id number] [address] [place] [address], [place] [address] Oct, [facility] [address] [id number] [address] [place] [address], [place] [address] Aug, [facility] [address] [id number] [address] [place] [address], [place] [address] March, [facility] [address] [id number] [address] [place] [address], [place] [address] 14 Feb, 2015 [facility] [address] [id number] [address] [place] [address], [place] [address] Feb, [facility] [address] [id number] [address] [place] [address], [place] [address] Jan, [facility] [address] [id number] [address] [place] [address], [place] [address] Jan, [facility] [address] [id number] [address] [place] [address], [place] [address] Oct, [facility] [address] [id number] [address] [place] [address], [place] [address] Oct, [facility] [address] [id number] [address] [place] [address], [place] [address] Oct, [facility] [address] [id number] [address] [place] [address], [place] [address] Sep, [facility] [address] [id number] [address] [place] [address], [place] [address] Sep, [facility] [address] [id number] [address] [place] [address], [place] [address] Sep, [facility] [address] [id number] [address] [place] [address], [place] [address] Sep, [facility] [address] [id number] [address] [place] [address], [place] [address] Sep, [facility] [address] [id number] [address] [place] [address], [place] [address] Aug, [facility] [address] [id number] [address] [place] [address], [place] [address] Aug, [facility] [address] [id number] [address] [place] [address], [place] [address] Jul, [facility] [address] [id number] [address] [place] [address], [place] [address] Jul, [facility] [address] [id number] [address] [place] [address], [place] [address] Jul, [facility] [address] [id number] [address] [place] [address], [place] [address] Jul, [facility] [address] [id number] [address] [place] [address], [place] [address] Jul, [facility] [address] [id number] [address] [place] [address], [place] [address] Jul, [facility] [address] [id number] [address] [place] [address], [place] [address] May, [facility] [address] [id number] [address] [place] [address], [place] [address] May, [facility] [address] [id number] [address] [place] [address], [place] [address] May, [facility] [address] [id number] [address] [place] [address], [place] [address] May, [facility] [address] [id number] [address] [place] [address], [place] [address] May, [facility] [address] [id number] [address] [place] [address], [place] [address] May, [facility] [address] [id number] [facility] [place] [address] 18 Apr, 2014 [facility] [address] [id number] [address] [place] [address], [place] [address] 18 Apr, 2014 [facility] [address] [id number] [address] [place] [address], [place] [address] Apr, [facility] [address] [id number] [address] [place] [address], [place] [address] Apr, [facility] [address] [id number] [address] [place] [address], [place] [address] Apr, [facility] [address] [id number] [address] [place] [address], [place] [address] Apr, [facility] [address] [id number] [address] [place] [address], [place] [address] Apr, [facility] [address] [id number] [address] [place] [address], [place] [address] Apr, [facility] [address] [id number] [address] [place] [address], [place] [address] March, [facility] [address] [id number] [address] [place] [address], [place] [address] March, [facility] [address] [id number] [address] [place] [address], [place] [address] March, [facility] [address] [id number] [address] [place] [address], [place] [address] Feb, [facility] [address] [id number] [address] [place] [address], [place] [address] Feb, [facility] [address] [id number] [address] [place] [address], [place] [address] Feb, [facility] [address] [id number] [address] [place] [address], [place] [address] Feb, [facility] [address] [id number] [address] [place] [address], [place] [address] Feb, [facility] [address] [id number] [address] [place] [address], [place] [address] Feb, [facility] [address] [id number] [address] [place] [address], [place] [address] Feb, [facility] [address] [id number] [address] [place] [address], [place] [address] Feb, [facility] [address] [id number] [address] [place] [address], [place] [address] Jan, [facility] [address] [id number] [address] [place] [address], [place] [address] Jan, [facility] [address] [id number] [address] [place] [address], [place] [id number] Dec, [facility] [address] [id number] [address] [place] [address], [place] [address] Dec, [facility] [address] [id number] [address] [place] [address], [place] [address] Dec, [facility] [address] [id number] [address] [place] [address], [place] [address] Dec, [facility] [address] [id number] [address] [place] [address], [place] [address] Dec, [facility] [address] [id number] [address] [place] [address], [place] [address] Nov, [facility] [address] [id number] [address] [place] [address], [place] [address] Nov, [facility] [address] [id number] [address] [place] [address], [place] [address] Nov, [facility] [address] [id number] [address] [place] [address], [place] [address] Nov, [facility] [address] [id number] [address] [place] [address], [place] [address] Nov, [facility] [address] [id number] [address] [place] [address] Nov, [facility] [address] [id number] [address] [place] [address], [place] [address] Oct, [facility] [address] [id number] [address] [place] [address], [place] [address] Oct, [facility] [address] [id number] [address] [place] [address], [place] [address] Sep, [facility] [address] [id number] [address] [place] [address], [place] [address] Sep, [facility] [address] [id number] [address] [place] [address], [place] [address] Sep, [facility] [address] [id number] [address] [place] [address], [place] [address] Sep, [facility] [address] [id number] [address] [place] [address], [place] [address] Sep, [facility] [address] [id number] [address] [place] [address], [place] [address] Sep, [facility] [address] [id number] [address] [place] [address], [place] [address] Aug, [facility] [address] [id number] [address] [place] [address], [place] [address] Aug, [facility] [address] [id number] [address] [place] [address], [place] [address] May, [facility] [address] [id number] [address] [place] [address], [place] [address] May, [facility] [address] [id number] [address] [place] [address], [place] [address] May, [facility] [address] [id number] [address] [place] [address], [place] [address] May, [facility] [address] [id number] [address] [place] [address], [place] [address] Apr, [facility] [address] [id number] [address] [place] [address], [place] [address] 17 Feb, 2013 [facility] [address] [id number] [address] [place] [address], [place] [address] Jan, [facility] [address] [id number] [address] [place] [address], [place] [address] Nov, [facility] [address] [id number] [address] [place] [address], [place] [address] Nov, [facility] [address] [id number] [address] [place] [address], [place] [address] Nov, [facility] [address] [id number] [address] [place] [address], [place] [address] Nov, [facility] [address] [id number] [address] [place] [address], [place] [address] Oct, [facility] [address] [id number] [address] [place] [address], [place] [address] 31 Oct, 2012 [facility] [address] [id number] [address] [place] [address], [place] [address] Oct, [facility] [address] [id number] [address] [place] [address], [place] [address] Oct, [facility] [address] [id number] [address] [place] [address], [place] [address] Oct, [facility] [address] [id number] [address] [place] [address], [place] [address] 27 Oct, 2012 [facility] [address] [id number] [address] [place] [address], [place] [address] 13 Oct, 2012 [facility] [address] [id number] [address] [place] [address], [place] [address] Oct, [facility] [address] [id number] [address] [place] [address], [place] [address] 13 Sep, 2012 [facility] [address] [id number] [address] [place] [address], [place] [address] Sep, [facility] [address] [id number] [address] [place] [address], [place] [address] Aug, [facility] [address] [id number] [address] [place] [address], [place] [address] Aug, [facility] [address] [id number] [address] [place] [address], [place] [address] Jul, [facility] [address] [id number] [address] [place] [address], [place] [address] Jul, [facility] [address] [id number] [address] [place] [address], [place] [address] Jun, [facility] [address] [id number] [address] [place] [address], [place] [address] Jun, [facility] [address] [id number] [address] [place] [address], [place] [address] Jun, [facility] [address] [id number] [address] [place] [address], [place] [address] Jun, [facility] [address] [id number] [address] [place] [address], [place] [address] May, [facility] [address] [id number] [address] [place] [address], [place] [address] May, [facility] [address] [id number] [address] [place] [address], [place] [address] May, [facility] [address] [id number] [address] [place] [address], [place] [address] May, [facility] [address] [id number] [address] [place] [address], [place] [address] May, [facility] [address] [id number] [address] [place] [address], [place] [address] May, [facility] [address] [id number] [address] [place] [address], [place] [address] Apr, [facility] [address] [id number] [address] [place] [address], [place] [address] March, [facility] [address] [id number] [address] [place] [address], [place] [address] March, [facility] [address] [id number] [address] [place] [address], [place] [address] 30 Feb, 2012 [facility] [address] [id number] [address] [place] [address], [place] [address] Feb, [facility] [address] [id number] [address] [place] [address], [place] [address] Feb, [facility] [address] [id number] [address] [place] [address], [place] [address] Feb, [facility] [address] [id number] [address] [place] [address], [place] [address] Jan, [facility] [address] [id number] [address] [place] [address], [place] [address] 07 Dec, 2011 [facility] [address] [id number] [address] [place] [address], [place] [address] Nov, [facility] [address] [id number] [address] [place] [address], [place] [address] Nov, [facility] [address] [id number] [address] [place] [address], [place] [address] Nov, [facility] [address] [id number] [address] [place] [address], [place] [address] Oct, [facility] [address] [id number] [address] [place] [address], [place] [address] Oct, [facility] [address] [id number] [address] [place] [address], [place] [address] 15 Sep, 2011 [facility] [address] [id number] [address] [place] [address], [place] [address] 15 Sep, 2011 [facility] [address] [id number] [address] [place] [address], [place] [address] 14 Oct, 2010 [facility] [address] [facility] [id number] [address] [place] [address] Sep, [facility] [address] [facility] [id number] [address] [place] [address] Aug, [facility] [address] [facility] [id number] [address] [place] [address] Aug, IMMUNIZATIONS No Known Immunizations SOCIAL HISTORY Never Assessed REASON FOR VISIT PLAN OF CARE VITAL SIGNS Height 64.5 in 2013-01-24 Weight 163 lbs 2013-01-24 Temperature 97.9 degrees Fahrenheit 2013-01-24 Heart Rate 100 bpm 2013-01-24 Respiratory Rate 2013-01-24 Blood pressure systolic 128 mmHg 2013-01-24 Blood pressure diastolic 88 mmHg 2013-01-24 MEDICATIONS Unknown Medications RESULTS No Results PROCEDURES [...]
--- OUTSIDE RECORDS SUMMARY | 2020-06-08 21:54 | XMS REPORT ---
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 Name Role Phone Migration, Doctor Unavailable Unavailable PROBLEMS Type Condition ICD9-CM Code PIO63-ES Code Onset Dates Condition S tatus SNOMED Code Problem Stage 1 skin ulcer of sacral region L98.429 Active Problem Rotator cuff tendonitis M75.80 March, Act alyssa 693578690 Problem Closed fracture of left distal tibia S82.302A Jan, Active 42130596 Problem Hypokalemia E87.6 March, Active 28970 004 Problem Generalized anxiety disorder F41.1 Jun, 201 1 Active 87935607 Problem Diverticulitis of both small and large intestine without perforation or abscess without bleeding K57.52 Feb, Active 307 972077 Problem 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 May, Active 333855882 Problem Essential hypertension I10 Active 60904773 Problem Anemia D64.9 Sep, Active 0642466 00 Problem 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, limited to b reakdown of skin L97.511 Active Problem Generalized abdominal pain R10.84 Sep, Active 841017794 Problem Chronic pain G89.29 Aug, Active 8242 3001 Problem SOB (shortness of breath) R06.02 Nov, A ctive 782141110 Problem CKD (chronic kidney disease) stage 3, GFR 30-59 ml/min N18.3 Apr, Active 069566602 Problem Diastolic dysfunction I51.9 Jan, Activ e 6310399 Problem Ulcerative colitis K51.90 Jul, Active 10473930 Problem Rheumatoid arthritis M06.9 Sep, Active 69829823 Problem PVC (premature ventricular contraction) I49.3 Nov, Active 41621489 Problem Moderate episode of recurrent major depressive disorder F33.1 Active 506687466 Problem Iron deficiency anemia secondary to inadequate d ietary iron intake D50.8 Active 441271035 Problem 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 Active [id number] ALLERGIES No Information ENCOUNTERS Encounter Location Date Diagnosis [address] 340 [id number] [address] Jul, [address] 340 [id number], [place] [address] May, [address] [id number], [place] [address] May, [address] 340 [id number], [place] [address] Apr, [address] 340B [id number], [place] [address] Apr, [address] 340 [id number], [place] [address] Apr, Congenital hypothyroidism wi thout goiter E03.1 ; Diastolic dysfunction I51.9 ; Rheumatoid arthritis M06.9 ; Chronic obstructive pulmonary disease, unspecified COPD type J44.9 ; Ulcerative colitis K51.90 ; CKD (chronic kidney disease) stage 3, GFR 30-59 ml/min N18.3 and Essential hypertension I10 [facility] [address] [facility] [id number] [address] [place] [address] 09 Apr, 2020 Pain in right leg M79.604 an d Pain in left leg M79.605 [address] [id number] [place] [address] Apr, [facility] [address] [facility] [id number] [address] [place] [address] Apr, Nausea R11.0 [facility] [address] [facility] [id number] [place] [address] March, Fever, unspecified fever cau se R50.9 and Rheumatoid arthritis M06.[address] 340B [id number] [place] [address] March, [facility] [address] [facility] [id number] [address] [place] [address] March, Fever, unspecified fever cau se R50.9 and Rheumatoid arthritis M06.9 [facility] [address] [facility] [id number] [place] [address] March, Nausea R11.0 [facility] K[facility] [address] 340B [id number] [address] March, [address] 340B [id number], [place] [address] Feb, [facility] [address] 340B [id number], [place] [address] Feb, [address] 340B [id number], [place] [address] Jan, Nausea alone R11.[address] 340B [id number], [place] [address] Jan, [facility] [address] [facility] [id number] [address] [place] [address] Jan, Arthralgia of left temporoma ndibular joint M26.[address] 340B [id number], [place] [address] Jan, [address] 340B [id number], [place] [address] Jan, Ulcerative colitis K51.90 ; CKD (chronic kidney disease) stage 3, GFR 30-59 ml/min N18.3 ; Essential hypertension I10 ; Rheumatoid arthritis with rheumatoid factor of right hand without organ or systems involvement M05.741 ; Intrinsic eczema L20.84 and Rectal prolapse K62.3 [facility] [address] [facility] [id number] [address] [place] [address] Jan, [facility] [address] [facility] [id number] [address] [place] [address] Jan, [facility] [address] [facility] [id number] [address] [place] [address] Jan, [facility] [address] [facility] [id number] [address] [place] [address] Jan, [facility] [address] [facility] [id number] [address] [place] [address] Jan, [address] 340B [id number], [place] [address] Jan, [address] 340B [id number], [place] [address] Jan, [address] 340B [id number], [place] [address] Jan, [facility] [address] [facility] [id number] [place] [address] Jan, [facility] [address] [facility] [id number] [address] [place] [address] Dec, Skin infection L08.9 and His tory of pneumonia Z87.[address] 340B [id number], [place] [address] Dec, [facility] [address] [facility] [id number] [address] [place] [address] Dec, [facility] [address] [facility] [id number] [address] [place] [address] Dec, [facility] [address] [facility] [id number] [place] [address] 20 Dec, 2019 [facility] [address] [facility] [id number] [place] [address] 19 Dec, 2019 Allergic reaction, initial e ncounter T78.40XA and Swollen upper lip R22.[address] 340 [id number], [place] [address] Dec, [address] [id number], [place] [address] 18 Dec, 2019 [facility] [address] [facility] [id number] [address] [place] [address] 13 Dec, 2019 Cough R05 [address] [id number], [place] [address] 11 Dec, 2019 Iron deficiency anemia secon michell to inadequate dietary iron intake D50.[address] [id number] [address] 11 Dec, 2019 Encounter for Medicare annua l wellness exam Z00.00 ; 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, 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 ; Chronic obstructive pulmonary disease, unspecified COPD type J44.9 ; Ulcerative colitis K51.90 ; CKD (chronic kidney disease) stage 3, GFR 30-59 ml/min N18.3 ; 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 ; B12 deficiency E53.8 and Rheumatoid arthritis with rheumatoid factor of right hand without organ or systems involvement M05.[address] [id number], [place] [address] 03 Dec, [address] 340B [id number], [place] [address] 17 Nov, [address] [id number], [place] [address] 14 Nov, 2019 Other specified peripheral v ascular diseases I73.89 ; Hypertensive heart disease with heart failure I11.0 ; 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 ; Rheumatoid arthritis with rheumatoid factor of right hand without organ or systems involvement M05.741 ; 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 ; Anemia, unspecified type D64.9 and Moderate episode of recurrent major depressive disorder F33.1 [facility] [place] [place] [address] 340B [id number] [place] [address] Nov, [facility] IKKO [place] [address] 340B [id number] [place] [address] Nov, [facility] [place] [address] 340B [id number] [place] [address] Nov, [facility] [place] [address] 340B [id number], [place] [address] Nov, [facility] [address] [facility] [id number] [place] [address] Oct, Rhinitis, unspecified type J 31.0 and Concussion without loss of consciousness, subsequent encounter S06.0X0D [facility] [place] [place] [address] 340B [id number] [place] [address] Oct, [facility] K[facility] [address] [address] 340[address] [id number], [place] [address] Oct, [facility] [place] [place] [address] 340B [id number] [place] [address] Aug, [facility] [place] [address] 340B [id number], [place] [address] Aug, [facility] K[place] [address] 340B [id number], [place] [address] Aug, [facility] K[place]KO [place] [address] 340B [id number], [place] [address] Jul, [facility] [address] [facility] [id number] [place] [address] Jul, Right hip pain M25.551 [facility] [place] [address] [id number] [place] [address] Jul, [facility] [address] [id number] [place] [address] Jul, [facility] [address] [id number] [place] [address] Jun, Rheumatoid arthritis M06.9 ; Ulcerative colitis K51.90 and Rectal prolapse K62.3 [facility] [address] [address] [id number] [place] [address] Jun, [facility] [address] [address] 340B [id number] [address] Jun, [facility] [address] [facility] [id number] [address] [place] [address] Jun, COPD exacerbation J44.1 [facility] [address] [address] 340B [id number], [place] [address] Jun, [facility] [address] [address] [id number] [place] [address] May, [facility] [address] [address] 340B [id number], [place] [address] May, Diastolic dysfunction I51.9 [facility] [address] [address]B [id number] [address] May, Rectal prolapse K62.3 ; Rheu matoid arthritis M06.9 ; Diastolic dysfunction I51.9 and CKD (chronic kidney disease) stage 3, GFR 30-59 ml/min N18.3 [facility] [address] [address] [id number] [place] [address] May, [facility] [address] [id number] [place] [address] May, [facility] [place] [address] [facility] [id number] [place] [address] May, Inflammation, skin L08.9 and Non-intractable vomiting with nausea, unspecified vomiting type R11.2 [facility] K[place] [address] 340B [id number] [place] [address] May, [facility] K[place]KO [place] [address] 340B [id number] [place] [address] Apr, [facility] K[place] [address] 340B [id number] [address] Apr, Acute ethmoidal sinusitis, r ecurrence not specified J01.20 and Bronchitis J40 [facility] [place] [address] [id number] [place] [address] Apr, Sore throat J02.9 and Oral thrush B37.0 [facility] [address] [facility] [id number] [address] [place] [address] Apr, Screening for breast cancer Z12.39 [facility] K[place] [address] 340B [id number], [place] [address] Apr, [facility] K[facility] [address] 340B [id number], [place] [address] Apr, Rheumatoid arthritis M06.9 [facility] K[facility] [address] 340B [id number], [place] [address] March, [facility] K[facility] [address] 340B [id number], [place] [address] March, [facility] K[facility]KO [place] [address] 340B [id number], [place] [address] March, [facility] K[facility] [place] [address] 340B [id number], [place] [address] March, [facility] K[facility]KO [place] [address] 340B [id number], [place] [address] March, Ulcerative colitis K51.90 an d 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 [facility] [place] [place] [address] 340B [id number] [address] Feb, [facility] [place] [address] 340B [id number] [place] [address] Feb, [facility] [address] [facility] [id number] [address] [place] [address] Jan, [facility] K[facility]KO [place] [address] 340B [id number] [place] [address] Jan, Diastolic dysfunction I51.9 ; Rheumatoid arthritis M06.9 ; Ulcerative colitis K51.90 ; Essential hypertension I10 ; Moderate episode of recurrent major depressive disorder F33.1 and Iron deficiency anemia secondary to inadequate dietary iron intake D50.8 [facility] [address] 340 [id number], [place] [address] Jan, [facility] [address] 340B [id number], [place] [address] Jan, Acute bronchitis, unspecifie d organism J20.9 and 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 [facility] [address] [facility] [id number] [address] [place] [address] Dec, [facility] K[facility] [address] 340 [id number], [place] [address] Dec, [facility] [address] [place] [id number] [place] [address] Nov, Viral upper respiratory illness J06.9 and Nausea alone R11.0 [facility] [address] [facility] [id number] [address] [place] [address] Oct, [facility] [address] [facility] [id number] [address] [place] [address] Oct, [facility] [address] [place] [id number] [address] [place] [address] Oct, [facility] [address] [facility] [id number] [address] [place] [address] Aug, [facility] [address] [facility] [id number] [address] [place] [address] March, [facility] [address] [id number] [address] [place] [address], [place] [address] Feb, [facility] [address] [id number] [address] [place] [address], [place] [address] Feb, [facility] [address] [id number] [address] [place] [address], [place] [address] Jan, [facility] [address] [id number] [address] [place] [address], [place] [address] Jan, [facility] [address] [id number] [address] [place] [address], [place] [address] Oct, [facility] [address] [id number] [address] [place] [address], [place] [address] Oct, [facility] [address] [id number] [address] [place] [address], [place] [address] Oct, [facility] [address] [id number] [address] [place] [address], [place] [address] Sep, [facility] [address] [id number] [address] [place] [address], [place] [address] Sep, [facility] [address] [id number] [address] [place] [address] Sep, [facility] [address] [id number] [address] [place] [address] Sep, [facility] [address] [id number] [address] [place] [address] Sep, [facility] [address] [id number] [address] [place] [address], [place] [address] Aug, [facility] [address] [id number] [address] [place] [address], [place] [address] Aug, [facility] [address] [id number] [address] [place] [address] Jul, [facility] [address] [id number] [address] [place] [address] 26 Jul, 2013 [facility] [address] [id number] [address] [place] [address], [place] [address] 10 Jul, 2013 [facility] [address] [id number] [address] [place] [address], [place] [address] 10 Jul, 2013 [facility] [address] [id number] [address] [place] [address], [place] [address] 08 Jul, 2013 [facility] [address] [id number] [address] [place] [address], [place] [address] 08 Jul, 2013 [facility] [address] [id number] [address] [place] [address], [place] [address] May, 2013 [facility] [address] [id number] [address] [place] [address], [place] [address] May, 2013 [facility] [address] [id number] [address] [place] [address], [place] [address] May, [facility] [address] [id number] [address] [place] [address], [place] [address] May, [facility] [address] [id number] [address] [place] [address], [place] [address] May, [facility] [address] [id number] [address] [place] [address], [place] [address] May, [facility] [address] [id number] [address] [place] [address], [place] [address] Apr, [facility] [address] [id number] [address] [place] [address], [place] [address] Apr, [facility] [address] [id number] [address] [place] [address], [place] [address] Apr, [facility] [address] [id number] [address] [place] [address], [place] [address] Apr, [facility] [address] [id number] [address] [place] [address], [place] [address] Apr, [facility] [address] [id number] [facility] [place] [address] Apr, [facility] [address] [id number] [address] [place] [address], [place] [address] Apr, [facility] [address] [id number] [address] [place] [address], [place] [address] Apr, [facility] [address] [id number] [address] [place] [address], [place] [address] March, [facility] [address] [id number] [address] [place] [address], [place] [address] March, [facility] [address] [id number] [address] [place] [address], [place] [address] March, [facility] [address] [id number] [address] [place] [address], [place] [address] Feb, [facility] [address] [id number] [address] [place] [address], [place] [address] Feb, [facility] [address] [id number] [address] [place] [address], [place] [address] Feb, [facility] [address] [id number] [address] [place] [address], [place] [address] Feb, [facility] [address] [id number] [address] [place] [address], [place] [address] Feb, [facility] [address] [id number] [address] [place] [address], [place] [id number] Feb, [facility] [address] [id number] [address] [place] [address], [place] [id number] Feb, [facility] [address] [id number] [address] [place] [address], [place] [id number] Feb, [facility] [address] [id number] [address] [place] [address], [place] [id number] Jan, [facility] [address] [id number] [address] [place] [address], [place] [id number] Jan, [facility] [address] [id number] [address] [place] [address], [place] [id number] Dec, [facility] [address] [id number] [address] [place] [address], [place] [address] Dec, [facility] [address] [id number] [address] [place] [address], [place] [address] Dec, [facility] [address] [id number] [address] [place] [address], [place] [id number] Dec, [facility] [address] [id number] [address] [place] [address], [place] [address] Dec, [facility] [address] [id number] [address] [place] [address], [place] [id number] Nov, [facility] [address] [id number] [address] [place] [address], [place] [id number] Nov, [facility] [address] [id number] [address] [place] [address], [place] [address] Nov, [facility] [address] [id number] [address] [place] [address], [place] [address] Nov, [facility] [address] [id number] [address] [place] [address], [place] [address] Nov, [facility] [address] [id number] [address] [place] [address], [place] [address] Nov, [facility] [address] [id number] [address] [place] [address], [place] [address] Oct, [facility] [address] [id number] [address] [place] [address], [place] [address] Oct, [facility] [address] [id number] [address] [place] [address], [place] [address] Sep, [facility] [address] [id number] [address] [place] [address], [place] [id number] Sep, [facility] [address] [id number] [address] [place] [address], [place] [address] Sep, [facility] [address] [id number] [address] [place] [address], [place] [address] Sep, [facility] [address] [id number] [address] [place] [address], [place] [address] Sep, [facility] [address] [id number] [address] [place] [address], [place] [id number] Sep, [facility] [address] [id number] [address] [place] [address], [place] [id number] Aug, [facility] [address] [id number] [address] [place] [address], [place] [id number] Aug, [facility] [address] [id number] [address] [place] [address], [place] [id number] May, [facility] [address] [id number] [address] [place] [address], [place] [id number] May, [facility] [address] [id number] [address] [place] [address], [place] [id number] May, [facility] [address] [id number] [address] [place] [address], [place] [id number] May, [facility] [address] [id number] [address] [place] [address], [place] [id number] Apr, [facility] [address] [id number] [address] [place] [address], [place] [id number] Feb, [facility] [address] [id number] [address] [place] [address], [place] [id number] Jan, [facility] [address] [id number] [address] [place] [address], [place] [id number] Nov, [facility] [address] [id number] [address] [place] [address], [place] [id number] Nov, [facility] [address] [id number] [address] [place] [address], [place] [address] Nov, [facility] [address] [id number] [address] [place] [address], [place] [id number] Nov, [facility] [address] [id number] [address] [place] [address], [place] [id number] Oct, [facility] [address] [id number] [address] [place] [address], [place] [id number] Oct, [facility] [address] [id number] [address] [place] [address], [place] [id number] Oct, [facility] [address] [id number] [address] [place] [address], [place] [id number] Oct, [facility] [address] [id number] [address] [place] [address], [place] [address] Oct, [facility] [address] [id number] [address] [place] [address], [place] [address] Oct, [facility] [address] [id number] [address] [place] [address], [place] [id number] Oct, [facility] [address] [id number] [address] [place] [address], [place] [address] Oct, [facility] [address] [id number] [address] [place] [address], [place] [address] Sep, [facility] [address] [id number] [address] [place] [address], [place] [address] Sep, [facility] [address] [id number] [address] [place] [address], [place] [id number] 16 Aug, 2012 [facility] [address] [id number] [address] [place] [address], [place] [id number] 16 Aug, 2012 [facility] [address] [id number] [address] [place] [address], [place] [id number] 24 Jul, 2012 [facility] [address] [id number] [address] [place] [address], [place] [id number] 12 Jul, 2012 [facility] [address] [id number] [address] [place] [id number] Jun, [facility] [address] [id number] [address] [place] [address], [place] [address] Jun, [facility] [address] [id number] [address] [place] [address], [place] [id number] Jun, [facility] [address] [id number] [address] [place] [address], [place] [id number] Jun, [facility] [address] [id number] [address] [place] [address], [place] [address] May, [facility] [address] [id number] [address] [place] [address], [place] [id number] May, [facility] [address] [id number] [address] [place] [address], [place] [id number] May, [facility] [address] [id number] [address] [place] [address], [place] [address] May, [facility] [address] [id number] [address] [place] [address], [place] [address] May, [facility] [address] [id number] [address] [place] [address], [place] [id number] May, [facility] [address] [id number] [address] [place] [address], [place] [address] Apr, [facility] [address] [id number] [address] [place] [address], [place] [id number] March, [facility] [address] [id number] [address] [place] [address], [place] [address] March, [facility] [address] [id number] [address] [place] [address], [place] [id number] Feb, [facility] [address] [id number] [address] [place] [address], [place] [address] Feb, [facility] [address] [id number] [address] [place] [address], [place] [id number] Feb, [facility] [address] [id number] [address] [place] [id number] Feb, [facility] [address] [id number] [address] [place] [phone] Jan, [facility] [address] [id number] [address] [place] [phone] Dec, [facility] [address] [id number] [address] [place] [id number] Nov, [facility] [address] [id number] [address] [place] [id number] Nov, [facility] [address] [id number] [address] [place] [phone] Nov, [facility] [address] [id number] [address] [place] [id number] Oct, [facility] [address] [id number] [address] [place] [phone] Oct, [facility] [address] [id number] [address] [place] [id number] Sep, [facility] [address] [id number] [address] [place] [id number] Sep, [facility] [address] [id number] [address] [place] [phone] Oct, [facility] [address] [id number] [address] [place] [phone] Sep, [facility] [address] [id number] [address] [place] [phone] Aug, [facility] [address] [id number] [address] [place] [id number] Aug, IMMUNIZATIONS No Known Immunizations SOCIAL HISTORY Never Assessed REASON FOR VISIT PLAN OF CARE VITAL SIGNS Height 64.5 in 2013-06-03 Weight 157 lbs 2013-06-03 Temperature 97.8 degrees Fahrenheit 2013-06-03 Heart Rate 78 bpm 2013-06-03 Respiratory Rate 22 2013-06-03 Blood pressure systolic 110 mmHg 2013-06-03 Blood pressure diastolic 92 mmHg 2013-06-03 MEDICATIONS Unknown Medications RESULTS No Results PROCEDURES [...]
--- OUTSIDE RECORDS SUMMARY | 2020-06-08 21:54 | XMS REPORT ---
Author Author Nanette Atkins Doctor Organization [facility] Address Unknown Phone Unavailable Care Team Providers Care Multi Share Program Coordinator Name Role Phone Migration, Doctor Unavailable Unavailable PROBLEMS Type Condition ICD9-CM Code UQV76-XL Code Onset Dates Condition S tatus SNOMED Code Problem Stage 1 skin ulcer of sacral region L98.429 Active Problem Rotator cuff tendonitis M75.80 March, Act alyssa 506216614 Problem Closed fracture of left distal tibia S82.302A Jan, Active 11003289 Problem Hypokalemia E87.6 March, Active 63679 004 Problem Generalized anxiety disorder F41.1 Jun, 201 1 Active 16094504 Problem Diverticulitis of both small and large intestine without perforation or abscess without bleeding K57.52 Feb, Active 307 026174 Problem 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 May, Active 446441908 Problem Essential hypertension I10 Active 73545777 Problem Anemia D64.9 Sep, Active 0815481 00 Problem 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, limited to b reakdown of skin L97.511 Active Problem Generalized abdominal pain R10.84 Sep, Active 673592237 Problem Chronic pain G89.29 Aug, Active 8242 3001 Problem SOB (shortness of breath) R06.02 Nov, A ctive 847769704 Problem CKD (chronic kidney disease) stage 3, GFR 30-59 ml/min N18.3 Apr, Active 764679357 Problem Diastolic dysfunction I51.9 Jan, Activ e 2321684 Problem Ulcerative colitis K51.90 Jul, Active 14620572 Problem Rheumatoid arthritis M06.9 Sep, Active 10966233 Problem PVC (premature ventricular contraction) I49.3 Nov, Active 26879271 Problem Moderate episode of recurrent major depressive disorder F33.1 Active 887802794 Problem Iron deficiency anemia secondary to inadequate d ietary iron intake D50.8 Active 003778904 Problem 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 Active [id number] ALLERGIES No Information ENCOUNTERS Encounter Location Date Diagnosis [address] [id number], [place] [address] Jul, [address] [id number], [place] [address] May, Choking, initial encounter T 17.308A and Injury of head, subsequent encounter S09.90XD [address] [id number], [place] [address] May, [facility] [address] [facility] [id number] [address] [place] [address] May, [facility] [address] [facility] [id number] [address] [place] [address] May, [address] [id number], [place] [address] May, [address] [id number], [place] [address] May, [address] [id number], [place] [address] Apr, [address] [id number] [place] [address] Apr, [address] [id number] [place] [address] Apr, Congenital hypothyroidism wi thout goiter E03.1 ; Diastolic dysfunction I51.9 ; Rheumatoid arthritis M06.9 ; Chronic obstructive pulmonary disease, unspecified COPD type J44.9 ; Ulcerative colitis K51.90 ; CKD (chronic kidney disease) stage 3, GFR 30-59 ml/min N18.3 and Essential hypertension I10 [facility] [address] [facility] [id number] [address] [place] [address] 09 Apr, 2020 Pain in right leg M79.604 an d Pain in left leg M79.[address] [id number], [place] [address] Apr, [facility] [address] [facility] [id number] [address] [place] [address] Apr, Nausea R11.0 [facility] [address] [facility] [id number] [address] [place] [address] March, Fever, unspecified fever cau se R50.9 and Rheumatoid arthritis M06.[address] [id number], [place] [address] March, [facility] [address] [facility] [id number] [address] [place] [address] March, Fever, unspecified fever cau se R50.9 and Rheumatoid arthritis M06.9 [facility] [address] [facility] [id number] [address] [place] [address] March, Nausea R11.[address] [id number], [place] [address] March, [address] [id number], [place] [address] Feb, [address] 340[address] [id number], [place] [address] Feb, [address] [id number], [place] [address] 27 Jan, 2020 Nausea alone R11.[address] 340[address] [id number], [place] [address] 17 Jan, 2020 [facility] [address] [facility] [id number] [address] [place] [address] 13 Jan, 2020 Arthralgia of left temporoma ndibular joint M26.[address] [id number], [place] [address] Jan, [address] [id number], [place] [address] 12 Jan, 2020 Ulcerative colitis K51.90 ; CKD (chronic kidney disease) stage 3, GFR 30-59 ml/min N18.3 ; Essential hypertension I10 ; Rheumatoid arthritis with rheumatoid factor of right hand without organ or systems involvement M05.741 ; Intrinsic eczema L20.84 and Rectal prolapse K62.3 [facility] [address] [facility] [id number] [address] [place] [address] 12 Jan, 2020 [facility] [address] [facility] [id number] [address] [place] [address] 10 Jan, 2020 [facility] [address] [facility] [id number] [address] [place] [address] Jan, [facility] [address] [facility] [id number] [address] [place] [address] Jan, [facility] [address] [facility] [id number] [address] [place] [address] 05 Jan, [address] 340[address] [id number], [place] [address] Jan, [address] [id number], [place] [address] Jan, [address] 340[address] [id number], [place] [address] 04 Jan, 2020 [facility] [place] [address] [facility] [id number] [place] [address] Jan, [facility] [address] [facility] [id number] [address] [place] [address] Dec, Skin infection L08.9 and His tory of pneumonia Z87.[address] [id number] [address] Dec, [facility] [address] [facility] [id number] [address] [place] [address] Dec, [facility] [address] [facility] [id number] [address] [place] [address] Dec, [place] [address] [facility] [id number] [address] [place] [address] Dec, [facility] [address] [facility] [id number] [address] [place] [address] Dec, Allergic reaction, initial e ncounter T78.40XA and Swollen upper lip R22.[address] [id number] [address] Dec, [address] [id number] [address] Dec, [facility] [address] [facility] [id number] [address] [place] [address] 13 Dec, 2019 Cough R05 [address] [id number] [address] 11 Dec, 2019 Iron deficiency anemia secon michell to inadequate dietary iron intake D50.[address] [id number] [address] 11 Dec, 2019 Encounter for Medicare [facility] exam Z00.00 ; 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, 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 ; Chronic obstructive pulmonary disease, unspecified COPD type J44.9 ; Ulcerative colitis K51.90 ; CKD (chronic kidney disease) stage 3, GFR 30-59 ml/min N18.3 ; 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 ; B12 deficiency E53.8 and Rheumatoid arthritis with rheumatoid factor of right hand without organ or systems involvement M05.[address] [id number] [place] [address] 03 Dec, [address] [id number], [place] [address] Nov, [address] [id number], [place] [address] 14 Nov, 2019 Other specified peripheral v ascular diseases I73.89 ; Hypertensive heart disease with heart failure I11.0 ; 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 ; Rheumatoid arthritis with rheumatoid factor of right hand without organ or systems involvement M05.741 ; 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 ; Anemia, unspecified type D64.9 and Moderate episode of recurrent major depressive disorder F33.[address] [id number] [address] Nov, [address] [id number] [address] Nov, [address] [id number], [place] [address] Nov, [address] [id number], [place] [address] Nov, [facility] [address] [facility] [id number] 100[place] [address] Oct, Rhinitis, unspecified type J 31.0 and Concussion without loss of consciousness, subsequent encounter S06.0X0D [address] 340[address] [id number], [place] [address] Oct, [address] [id number], [place] [address] Oct, [address] [id number], [place] [address] Aug, [facility] [place] [address] [id number] [place] [address] Aug, [facility] [place] [address] [id number] [place] [address] Aug, [facility] [place] [address] [id number] [place] [address] Jul, [facility] [address] [facility] [id number] [address] [address] Jul, Right hip pain M25.551 [facility] [place] [address] [id number] [place] [address] Jul, [facility] [place] [address] [id number] [place] [address] Jul, [facility] [place] [address] [id number] [place] [address] Jun, Rheumatoid arthritis M06.9 ; Ulcerative colitis K51.90 and Rectal prolapse K62.3 [facility] [place] [address] [id number] [place] [address] Jun, [facility] [place] [address] [id number] [place] [address] Jun, [facility] [address] [facility] [id number] [place] [address] Jun, COPD exacerbation J44.1 [facility] [place] [address] [id number] [place] [address] Jun, [facility] [place] [address] [id number] [place] [address] May, [facility] [place] [address] [id number] [place] [address] May, Diastolic dysfunction I51.9 [facility] [place] [address] [id number] [place] [address] May, Rectal prolapse K62.3 ; Rheu matoid arthritis M06.9 ; Diastolic dysfunction I51.9 and CKD (chronic kidney disease) stage 3, GFR 30-59 ml/min N18.3 [facility] [place] [address] [id number] [place] [address] May, [facility] [place] [address] [id number] [place] [address] May, [facility] [place] [address] [facility] [id number] [place] [address] May, Inflammation, skin L08.9 and Non-intractable vomiting with nausea, unspecified vomiting type R11.2 [facility] [place] [address] 340 [id number], [place] [address] May, [facility] [place] [address] 340[address] [id number], [place] [address] Apr, [facility] [place] [address] 340[address] [id number], [place] [address] Apr, Acute ethmoidal sinusitis, r ecurrence not specified J01.20 and Bronchitis J40 [facility] [place] [address] [facility] [id number] [place] [address] Apr, Sore throat J02.9 and Oral thrush B37.0 [facility] [address] [facility] [id number] [place] [address] Apr, Screening for breast cancer Z12.39 [facility] [place] [address] 340[address] [id number], [place] [address] Apr, [facility] [place] [address] [id number], [place] [address] Apr, Rheumatoid arthritis M06.9 [facility] [place] [address] 340[address] [id number], [place] [address] March, [facility] [place] [address] [id number], [place] [address] March, [facility] [place] [address] 340 [id number] [place] [address] March, [facility] [place] [address] 340 [id number], [place] [address] March, [address] 340 [id number], [place] [address] March, Ulcerative colitis K51.90 an d 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 340 [id number], [place] [address] Feb, [address] 340 [id number], [place] [address] Feb, [facility] [address] [facility] [id number] [address] [place] [address] Jan, [address] [id number], [place] [address] Jan, Diastolic dysfunction I51.9 ; Rheumatoid arthritis M06.9 ; Ulcerative colitis K51.90 ; Essential hypertension I10 ; Moderate episode of recurrent major depressive disorder F33.1 and Iron deficiency anemia secondary to inadequate dietary iron intake D50.8 [facility] [place] [address] 340 [id number], [place] [address] Jan, [facility] [place] [address] [id number], [place] [address] Jan, Acute bronchitis, unspecifie d organism J20.9 and 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 [facility] [address] [facility] [id number] [place] [address] Dec, [address] 340 [id number], [place] [address] Dec, [facility] [address] [facility] [id number] [place] [address] Nov, Viral upper respiratory illness J06.9 and Nausea alone R11.0 [facility] [address] [id number] [address] [place] [address], [place] [address] Oct, [facility] [address] [id number] [address] [place] [address], [place] [address] Oct, [facility] [address] [id number] [address] [place] [address], [place] [address] Oct, [facility] [address] [id number] [address] [place] [address], [place] [address] Aug, [facility] [address] [id number] [address] [place] [address], [place] [address] March, [facility] [address] [id number] [address] [place] [address], [place] [address] 14 Feb, 2015 [facility] [address] [id number] [address] [place] [address], [place] [address] Feb, [facility] [address] [id number] [address] [place] [address], [place] [address] Jan, [facility] [address] [id number] [address] [place] [address], [place] [address] Jan, [facility] [address] [id number] [address] [place] [address], [place] [address] Oct, [facility] [address] [id number] [address] [place] [address], [place] [address] Oct, [facility] [address] [id number] [address] [place] [address], [place] [address] Oct, [facility] [address] [id number] [address] [place] [address], [place] [address] Sep, [facility] [address] [id number] [address] [place] [address], [place] [address] Sep, [facility] [address] [id number] [address] [place] [address], [place] [address] Sep, [facility] [address] [id number] [address] [place] [address], [place] [address] Sep, [facility] [address] [id number] [address] [place] [address], [place] [address] Sep, [facility] [address] [id number] [address] [place] [address], [place] [address] Aug, [facility] [address] [id number] [address] [place] [address], [place] [address] Aug, [facility] [address] [id number] [address] [place] [address], [place] [address] Jul, [facility] [address] [id number] [address] [place] [address], [place] [address] Jul, [facility] [address] [id number] [address] [place] [address], [place] [address] Jul, [facility] [address] [id number] [address] [place] [address], [place] [address] Jul, [facility] [address] [id number] [address] [place] [address], [place] [address] Jul, [facility] [address] [id number] [address] [place] [address], [place] [address] Jul, [facility] [address] [id number] [address] [place] [address], [place] [address] May, [facility] [address] [id number] [address] [place] [address], [place] [address] May, [facility] [address] [id number] [address] [place] [address], [place] [address] May, [facility] [address] [id number] [address] [place] [address], [place] [address] May, [facility] [address] [id number] [address] [place] [address], [place] [address] May, [facility] [address] [id number] [address] [place] [address], [place] [address] May, [facility] [address] [id number] [facility] [place] [address] 18 Apr, 2014 [facility] [address] [id number] [address] [place] [address], [place] [address] 18 Apr, 2014 [facility] [address] [id number] [address] [place] [address], [place] [address] Apr, [facility] [address] [id number] [address] [place] [address], [place] [address] Apr, [facility] [address] [id number] [address] [place] [address], [place] [address] Apr, [facility] [address] [id number] [address] [place] [address], [place] [address] Apr, [facility] [address] [id number] [address] [place] [address], [place] [address] Apr, [facility] [address] [id number] [address] [place] [address], [place] [address] Apr, [facility] [address] [id number] [address] [place] [address], [place] [address] March, [facility] [address] [id number] [address] [place] [address], [place] [address] March, [facility] [address] [id number] [address] [place] [address], [place] [address] March, [facility] [address] [id number] [address] [place] [address], [place] [address] Feb, [facility] [address] [id number] [address] [place] [address], [place] [address] Feb, [facility] [address] [id number] [address] [place] [address], [place] [address] Feb, [facility] [address] [id number] [address] [place] [address], [place] [address] Feb, [facility] [address] [id number] [address] [place] [address], [place] [address] Feb, [facility] [address] [id number] [address] [place] [address], [place] [address] Feb, [facility] [address] [id number] [address] [place] [address], [place] [address] Feb, [facility] [address] [id number] [address] [place] [address], [place] [address] Feb, [facility] [address] [id number] [address] [place] [address], [place] [address] Jan, [facility] [address] [id number] [address] [place] [address], [place] [address] Jan, [facility] [address] [id number] [address] [place] [address], [place] [id number] Dec, [facility] [address] [id number] [address] [place] [address], [place] [address] Dec, [facility] [address] [id number] [address] [place] [address], [place] [address] Dec, [facility] [address] [id number] [address] [place] [address], [place] [address] Dec, [facility] [address] [id number] [address] [place] [address], [place] [address] Dec, [facility] [address] [id number] [address] [place] [address], [place] [address] Nov, [facility] [address] [id number] [address] [place] [address], [place] [address] Nov, [facility] [address] [id number] [address] [place] [address], [place] [address] Nov, [facility] [address] [id number] [address] [place] [address], [place] [address] Nov, [facility] [address] [id number] [address] [place] [address], [place] [address] Nov, [facility] [address] [id number] [address] [place] [id number] Nov, [facility] [address] [id number] [address] [place] [address], [place] [address] Oct, [facility] [address] [id number] [address] [place] [address], [place] [address] Oct, [facility] [address] [id number] [address] [place] [address], [place] [address] Sep, [facility] [address] [id number] [address] [place] [address], [place] [address] Sep, [facility] [address] [id number] [address] [place] [address], [place] [address] Sep, [facility] [address] [id number] [address] [place] [address], [place] [address] Sep, [facility] [address] [id number] [address] [place] [address], [place] [address] Sep, [facility] [address] [id number] [address] [place] [address], [place] [address] Sep, [facility] [address] [id number] [address] [place] [address], [place] [address] Aug, [facility] [address] [id number] [address] [place] [address], [place] [address] Aug, [facility] [address] [id number] [address] [place] [address], [place] [address] May, [facility] [address] [id number] [address] [place] [address], [place] [address] May, [facility] [address] [id number] [address] [place] [address], [place] [address] May, [facility] [address] [id number] [address] [place] [address], [place] [address] May, [facility] [address] [id number] [address] [place] [address], [place] [address] Apr, [facility] [address] [id number] [address] [place] [address], [place] [address] 17 Feb, 2013 [facility] [address] [id number] [address] [place] [address], [place] [address] Jan, [facility] [address] [id number] [address] [place] [address] [address] Nov, [facility] [address] [id number] [address] [place] [address], [place] [address] Nov, [facility] [address] [id number] [address] [place] [address], [place] [address] Nov, [facility] [address] [id number] [address] [place] [address], [place] [address] Nov, [facility] [address] [id number] [address] [place] [address], [place] [address] Oct, [facility] [address] [id number] [address] [place] [address], [place] [address] 31 Oct, 2012 [facility] [address] [id number] [address] [place] [address], [place] [address] Oct, [facility] [address] [id number] [address] [place] [address], [place] [address] Oct, [facility] [address] [id number] [address] [place] [address], [place] [address] Oct, [facility] [address] [id number] [address] [place] [address], [place] [address] 27 Oct, 2012 [facility] [address] [id number] [address] [place] [address], [place] [address] 13 Oct, 2012 [facility] [address] [id number] [address] [place] [address], [place] [address] Oct, [facility] [address] [id number] [address] [place] [address], [place] [address] 13 Sep, 2012 [facility] [address] [id number] [address] [place] [address], [place] [address] Sep, [facility] [address] [id number] [address] [place] [address], [place] [address] Aug, [facility] [address] [id number] [address] [place] [address], [place] [address] Aug, [facility] [address] [id number] [address] [place] [address], [place] [address] Jul, [facility] [address] [id number] [address] [place] [address], [place] [address] Jul, [facility] [address] [id number] [address] [place] [address], [place] [address] Jun, [facility] [address] [id number] [address] [place] [address], [place] [address] Jun, [facility] [address] [id number] [address] [place] [address], [place] [address] Jun, [facility] [address] [id number] [address] [place] [address], [place] [address] Jun, [facility] [address] [id number] [address] [place] [address], [place] [address] May, [facility] [address] [id number] [address] [place] [address], [place] [address] May, [facility] [address] [id number] [address] [place] [address], [place] [address] May, [facility] [address] [id number] [address] [place] [address], [place] [address] May, [facility] [address] [id number] [address] [place] [address], [place] [address] May, [facility] [address] [id number] [address] [place] [address], [place] [address] May, [facility] [address] [id number] [address] [place] [address], [place] [address] Apr, [facility] [address] [id number] [address] [place] [address], [place] [address] March, [facility] [address] [id number] [address] [place] [address], [place] [address] March, [facility] [address] [id number] [address] [place] [address], [place] [address] 30 Feb, 2012 [facility] [address] [id number] [address] [place] [address], [place] [address] Feb, [facility] [address] [id number] [address] [place] [address], [place] [address] Feb, [facility] [address] [id number] [address] [place] [address], [place] [address] Feb, [facility] [address] [id number] [address] [place] [address], [place] [address] Jan, [facility] [address] [id number] [address] [place] [address], [place] [address] 07 Dec, 2011 [facility] [address] [id number] [address] [place] [address], [place] [address] Nov, [facility] [address] [id number] [address] [place] [address], [place] [address] Nov, [facility] [address] [id number] [address] [place] [address], [place] [address] Nov, [facility] [address] [id number] [address] [place] [address], [place] [address] Oct, [facility] [address] [id number] [address] [place] [address], [place] [address] Oct, [facility] [address] [id number] [address] [place] [address], [place] [address] 15 Sep, 2011 [facility] [address] [id number] [address] [place] [address], [place] [address] 15 Sep, 2011 [facility] [address] [id number] [address] [place] [address], [place] [address] 14 Oct, 2010 [facility] [address] [facility] [id number] [address] [place] [address] Sep, [facility] [address] [facility] [id number] [address] [place] [address] Aug, [facility] [address] [facility] [id number] [address] [place] [address] Aug, IMMUNIZATIONS No Known Immunizations SOCIAL HISTORY [...] Surgical History heart cath - Stephenie Jimenez Bob 03/2018 Surgical History hysterectomy Surgical History hernia repair Surgical History tonsillectomy Surgical History Left shoulder joint repair 09/2018 Surgical History Removal of pre cancerous spots on arm /c hest/ nose Surgical History sepulveda cath in till rectum surg on 020 Hospitalization History Multiple Hospital Stays Hospitalization History ER Visit Lisa 05/05/2019
--- OUTSIDE RECORDS SUMMARY | 2020-06-08 22:00 | XMS REPORT | Continuity of Care Document ---
Demographics Preferred Language Unknown Marital Status Unknown Islam Affiliation Unknown Race Unknown Ethnic Group Unknown Author Organization Unknown Address Unknown Phone Unavailable Allergies Active Description Code Type Severity Reaction Onset Reported/Identified Relationship to Patient Clinical Status Yes SULFAMETHOXAZOLE-TRIMETHOPRIM SULFAMETHOXAZOLE-TRI SEVERE Yes SULFAMETHOXAZOLE-TRIMETHOPRIM SEVERE DERMATOLOGICAL - NILS Yes SULFAMETHOXAZOLE-TRIMETHOPRIM SEVERE SEVERE Yes sulfa drug Drug Allergy 09/19/2011 Yes Sulfa (Sulfonamide Antibiotics) [id number] Drug Allergy Unknown N/A 019 Medications [...] SALINE W/KCL 40MEQ IV (SALINE IV BAG W/[id number]) MLS 01/13/2018 01/20/2018 CONTINUOUSEVERY 0 Hour LACTOBACILLUS BULGARIS TAB (LACTINEX BULGA RIS) tab 01/13/2018 01/23/2018 QID&0800,1200,1700,2200 METOPROLOL TAB 25 MG (LOPRESSOR) MG 01/13/2018 01/13/2018 ONCE&1215 NORMAL SALINE W/KCL 40MEQ IV (SALINE IV BAG W/[id number]) MLS 01/13/2018 01/20/2018 CONTINUOUSEVERY 0 Hour NORMAL SALINE W/KCL 40MEQ IV (SALINE IV BAG W/[id number]) MLS 01/14/2018 01/21/2018 CONTINUOUSEVERY 0 Hour MESALAMINE [...] P S CHIZO AFFECTIVE 07/28/2010 ESPITIA ROOSEVELT [facility] 295.70 P SCHIZO AFFECTIVE 07/28/2010 ESPITIA ROOSEVELT [facility] 295.70 P SCHIZO AFFECTIVE 07/28/2010 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 07/28/2010 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 07/28/2010 ANDER GRANT DO 295.70 P SCHIZO AFFECTIVE 07/28/2010 ESPITIA PROGRAMMABLE LOGIC CONTROLLER ASSEMBLER, [facility] 295.70 P SCHIZO AFFECTIVE 07/28/2010 ESPITIA PROGRAMMABLE LOGIC CONTROLLER ASSEMBLER, [facility] 295.70 P SCHIZO AFFECTIVE 07/28/2010 ESPITIA PROGRAMMABLE LOGIC CONTROLLER ASSEMBLER, [facility] 295.70 P SCHIZO AFFECTIVE 07/28/2010 ESPITIA PROGRAMMABLE LOGIC CONTROLLER ASSEMBLER, [facility] 295.70 P SCHIZO AFFECTIVE 07/28/2010 ESPITIA PROGRAMMABLE LOGIC CONTROLLER ASSEMBLER, [facility] 295.70 P SCHIZO AFFECTIVE 07/28/2010 ESPITIA PROGRAMMABLE LOGIC CONTROLLER ASSEMBLER, [facility] 295.70 P SCHIZO AFFECTIVE 07/28/2010 ESPITIA PROGRAMMABLE LOGIC CONTROLLER ASSEMBLER, [facility] 295.70 P SCHIZO AFFECTIVE 07/28/2010 MICHELLE COLEY [...] 09/23/2010 Ot 414.01 COR ONARY ATHEROSCLEROSIS OF [place] CORON 09/23/2010 Ot 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 [...] 09/26/2010 Ot 414.01 COR ONARY ATHEROSCLEROSIS OF [place] CORON 09/26/2010 Ot 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 [...] V65.42 COUNSELING - SMOKING CESSATION 11/06/2011 ESPITIA PROGRAMMABLE LOGIC CONTROLLER ASSEMBLER, SAMARA BANGURAH 465.9 UPPER RESPIRATORY INFECTION 11/06/2011 ESPITIA PROGRAMMABLE LOGIC CONTROLLER ASSEMBLER, SAMARA BANGURAH V65.42 COUNSELING - SMOKING CESSATION 11/06/2011 MICHELLE COLEY M 465.9 UPPER RESPIRATORY INFECTION 11/06/2011 MICHELLE COLEY V65.42 COUNSELING - SMOKING CESSATION 11/10/2011 466.0 BRON CHITIS, ACUTE 11/10/2011 ESPITIA PROGRAMMABLE LOGIC CONTROLLER ASSEMBLER, SAMARA KEVIN 466.0 BRONCHITIS, ACUTE 11/10/2011 ESPITIA PROGRAMMABLE LOGIC CONTROLLER ASSEMBLER, SAMARA KEVIN 466.0 BRONCHITIS, ACUTE 11/10/2011 466.0 BRON CHITIS, ACUTE 11/10/2011 466.0 BRON CHITIS, ACUTE 11/10/2011 ANDER GRANT DO 466.0 BRONCHITIS, ACUTE 11/10/2011 ESPITIA PROGRAMMABLE LOGIC CONTROLLER ASSEMBLER, SAMARA KEVIN 466.0 BRONCHITIS, ACUTE 11/10/2011 ESPITIA PROGRAMMABLE LOGIC CONTROLLER ASSEMBLER, SAMARA KEVIN 466.0 BRONCHITIS, ACUTE 11/10/2011 ESPITIA PROGRAMMABLE LOGIC CONTROLLER ASSEMBLER, SAMARA KEVIN 466.0 BRONCHITIS, ACUTE 11/10/2011 ESPITIA PROGRAMMABLE LOGIC CONTROLLER ASSEMBLER, SAMARA KEVIN 466.0 BRONCHITIS, ACUTE 11/10/2011 ESPITIA PROGRAMMABLE LOGIC CONTROLLER ASSEMBLER, SAMARA KEVIN 466.0 BRONCHITIS, ACUTE 11/10/2011 ESPITIA PROGRAMMABLE LOGIC CONTROLLER ASSEMBLER, SAMARA KEVIN 466.0 BRONCHITIS, ACUTE 11/10/2011 ESPITIA PROGRAMMABLE LOGIC CONTROLLER ASSEMBLER, SAMARA KEVIN 466.0 BRONCHITIS, ACUTE 11/10/2011 MICHELLE COLEY M 466.0 BRONCHITIS, ACUTE 02/29/2012 Ot 300.00 ANX IETY STATE NOS 02/29/2012 Ot 714.0 RHEU MATOID ARTHRITIS 02/29/2012 Ot 729.5 PAIN IN LIMB 06/03/2013 ANDER GRANT DO 894.0 WOUND OPEN LOWER LIMB 06/03/2013 ESPITIA PROGRAMMABLE LOGIC CONTROLLER ASSEMBLERSAMARA Aldrich KEVIN 894.0 WOUND OPEN LOWER LIMB 06/03/2013 ESPITIA PROGRAMMABLE LOGIC CONTROLLER ASSEMBLER, SAMARA KEVIN 894.0 WOUND OPEN LOWER LIMB 06/03/2013 ESPITIA PROGRAMMABLE LOGIC CONTROLLER ASSEMBLER, SAMARA KEVIN 894.0 WOUND OPEN LOWER LIMB 06/03/2013 ESPITIA PROGRAMMABLE LOGIC CONTROLLER ASSEMBLER SAMARA KEVIN 894.0 WOUND OPEN LOWER LIMB 06/03/2013 ESPITIA PROGRAMMABLE LOGIC CONTROLLER ASSEMBLER SAMARA KEVIN 894.0 WOUND OPEN LOWER LIMB 06/03/2013 ESPITIA PROGRAMMABLE LOGIC CONTROLLER ASSEMBLER, SAMARA BROWN 894.0 WOUND OPEN LOWER LIMB 06/03/2013 ESPITIA PROGRAMMABLE LOGIC CONTROLLER ASSEMBLER, SAMARA BROWN 894.0 WOUND OPEN LOWER LIMB 06/03/2013 MICHELLE COLEY 894.0 WOUND OPEN LOWER LIMB 09/15/2013 ESPITIA PROGRAMMABLE LOGIC CONTROLLER ASSEMBLER, SAMARA BANGURAH 294.20 DEMENTIA UNSPECIFIED WITHOUT BEHAVIORAL DISTURBANCE 09/15/2013 ESPITIA PROGRAMMABLE LOGIC CONTROLLER ASSEMBLER, SAMARA KEVIN 294.20 DEMENTIA UNSPECIFIED WITHOUT BEHAVIORAL DISTURBANCE 09/15/2013 ESPITIA PROGRAMMABLE LOGIC CONTROLLER ASSEMBLER, SAMARA KEVIN 294.20 DEMENTIA UNSPECIFIED WITHOUT BEHAVIORAL DISTURBANCE 09/15/2013 ESPITIA PROGRAMMABLE LOGIC CONTROLLER ASSEMBLER, SAMARA KEVIN 294.20 DEMENTIA UNSPECIFIED WITHOUT BEHAVIORAL DISTURBANCE 09/15/2013 ESPITIA PROGRAMMABLE LOGIC CONTROLLER ASSEMBLER, SAMARA BANGURAH 294.20 DEMENTIA UNSPECIFIED WITHOUT BEHAVIORAL DISTURBANCE 09/15/2013 ESPITIA PROGRAMMABLE LOGIC CONTROLLER ASSEMBLER, SAMARA BANGURAH 294.20 DEMENTIA UNSPECIFIED WITHOUT BEHAVIORAL DISTURBANCE 09/15/2013 ESPITIA PROGRAMMABLE LOGIC CONTROLLER ASSEMBLER, SAMARA BROWN 294.20 DEMENTIA UNSPECIFIED WITHOUT BEHAVIORAL DISTURBANCE 09/15/2013 RONALDMICHELLE ORTIZ M 294.20 DEMENTIA UNSPECIFIED WITHOUT BEHAVIORAL DISTURBANCE 09/30/2014 RONALD CUSTOMER SOLUTIONS ARCHITECT, MICHELLE M 300.00 AN ANXIETY UNSPEC 09/30/2014 [...] UNSPECIFIED NONINFECTIOUS GASTROENTERITIS AND COLITIS 01/12/2017 Ragland, Marei-Miranda W K52.9 NONINFECTIVE GASTROENTERITIS AND COLITIS, UNSPECIFIED 01/13/2017 Obie, Marie-Miranda W 584.9 ACUTE KIDNEY FAILURE, UNSPECIFIED 01/13/2017 Obie, Marie-Miranda W N17.9 ACUTE KIDNEY FAILURE, UNSPECIFIED 01/13/2017 Obie, Marie-Miranda W 401.0 01/13/2017 Obie, Marie-Miranda W 428.9 01/13/2017 Obie, Marie-Miranda W 530.81 01/13/2017 Matt Ragland W 790.29 OTHER ABNORMAL GLUCOSE 01/13/2017 Matt Ragland W I10 ESSENTIAL (PRIMARY) HYPERTENSION 01/13/2017 Matt [...] Tristin Laboya W 276.8 HYPOPOTASSEMIA 01/14/2018 Tristin Laobya W 558.9 OTHER AND UNSPECIFIED NONINFECTIOUS GASTROENTERITIS [...] 357.9 01/17/2018 Benoit, Lorena W 401.0 01/17/2018 [facility], Lorena W 558.9 OTHER AND UNSPECIFIED NONINFECTIOUS GASTROENTERITIS AND COLITIS 01/17/2018 [facility], Lorena W 714.0 01/17/2018 [facility], Lorena W 719.45 01/17/2018 [facility], Lorena W 787.91 DIARRHEA 01/17/2018 [facility], Lorena W 791.9 01/17/2018 [facility], Lorena W A49.3 MYCOPLASMA INFECTION, UNSPECIFIED SITE 01/17/2018 [facility], Lorena W B96.0 01/17/2018 [facility], Lorena W E03.9 HYPOTHYROIDISM, UNSPECIFIED 01/17/2018 [facility], Lorena W E78.5 01/17/2018 [facility], Lorena A E86.0 DEHYDRATION 01/17/2018 [facility], Lorena W E87.6 HYPOKALEMIA 01/17/2018 [facility], Lorena W F32.9 01/17/2018 [facility], Lorena W G62.9 POLYNEUROPATHY, UNSPECIFIED 01/17/2018 [facility], Lorena W I10 01/17/2018 [facility], Lorena W K52.9 NONINFECTIVE GASTROENTERITIS AND COLITIS, UNSPECIFIED 01/17/2018 [facility], Lorena W M06.9 01/17/2018 [facility], Lorena W M25.551 PAIN IN RIGHT HIP 01/17/2018 [facility], Lorena W R19.7 DIARRHEA, UNSPECIFIED 01/17/2018 [facility], Lorena W R82.99 OTHER ABNORMAL FINDINGS [...] 562.12 DIVERTICULOSIS OF COLON WITH HEMORRHAGE 02/11/2018 VanessaaJc W 78 7.7 02/11/2018 VanessaJac W 787.91 [...] PRIMARY, INVOLVING SHOULDER REGION 07/26/2018 W 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, LEFT SHOULDER 08/01/2018 Jean Wallace [...] PRIMARY, INVOLVING SHOULDER REGION 08/05/2018 W 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, LEFT SHOULDER 08/16/2018 Gianni Gibson [...] LUMBAR REGIO 08/29/2018 RENU CHRISTENSEN MD Ot M51.3 6 OTHER [...] OTHER SPECIFIED POSTPROCEDURAL STATES 01/23/2019 Ot 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, U 01/23/2019 Ot K44.9 DIAP HRAGMATIC HERNIA WITHOUT OBSTRUCTION 01/23/2019 Ot Z87.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 RSONAL HISTORY OF NICOTINE DEPENDENCE 01/30/2019 Ot 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, U 01/30/2019 Ot [...] Z87.01 PERSONAL HISTORY OF PNEUMONIA (RECURRENT 03/05/2019 [place] LORENA Ot Z87.19 PERSONAL HISTORY OF OTHER DISEASES OF 03/05/2019 MELINDA LORENA Ot Z87.891 PERSONAL HISTORY OF N[facility]OTINE DEPENDENCE [facility]/05/[facility] Z88.2 ALLERGY STATUS TO SULFONAMIDES STATUS 03/05/2019 [facility] Ot Z90.49 ACQUIRED ABSENCE OF OTHER SPECIFIED PART 03/05/2019 MELINDA LORENA Ot Z90.710 ACQUIRED ABSENCE OF BOTH CERVIX AND UTER 03/05/2019 [facility] Ot Z90.89 ACQUIRED ABSENCE OF OTHER ORGANS 03/05/2019 [facility] Ot Z98.890 OTHER SPECIFIED POSTPROCEDURAL STATES 03/07/2019 MELINDA LORENA Ot E03.9 HYPOTHYROIDISM, UNSPECIFIED 03/07/2019 MELINDA DOTRISTINA K Ot I10 ESSENTIAL (PRIMARY) HYPERTENSION 03/07/2019 MELINDA [place]ORE[place] LEDEZMA Ot K21.9 GASTRO-ESOPHAGEAL REFLUX DISEASE WITHOUT 03/07/2019 [facility] Ot K29.70 GASTRITIS, UNSPECIFIED, WITHOUT BLEEDING 03/07/2019 [facility] Ot K44.9 DIAPHRAGMATIC HERNIA WITHOUT OBSTRUCTION 03/07/2019 [facility] Ot M06.9 RHEUMATOID ARTHRITIS, UNSPECIFIED 03/07/2019 [facility] Miriam Ot M81.0 AGE- RELATED OSTEOPOROSIS W/O [...] OTHER INTERVERTEBRAL DISC DEGENERATION, 05/10/2019 Ot 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 2 ALLERGY STATUS [...] DOA K Ot E03.9 HYPOTHYROIDISM, UNSPECIFIED 05/28/2019 MELINDA LEDEZMA LORENA K Ot E78.00 PURE HYPERCHOLESTEROLEMIA, UNSPECIFIED 05/28/2019 MELINDA DO [place]ORE[place] K Ot F32.9 MAJOR DEPRESSIVE DISORDER, SINGLE EPISOD 05/28/2019 TRISTIN LAWRENCE DOA K Ot F41.9 ANXIETY DISORDER, UNSPECIFIED 05/28/2019 MELINDA DO [place]ORE[place] K Ot I10 ESSENTIAL (PRIMARY) HYPERTENSION 05/28/2019 TRISTIN ALWRENCE DOA K Ot J44.9 CHRONIC OBSTRUCTIVE PULMONARY DISEASE, U 05/28/2019 TRISTIN LAWRENCE DOA K Ot K21.9 GASTRO-ESOPHAGEAL REFLUX DISEASE WITHOUT 05/28/2019 MELINDA LORENA LEDEZMA Ot K44.9 DIAPHRAGMATIC HERNIA WITHOUT OBSTRUCTION 05/28/2019 [place] LEDEZMA Ot K58.9 IRRITABLE BOWEL SYNDROME WITHOUT DIARRHE 05/28/2019 [place] LEDEZMA Ot K59.00 CONSTIPATION, UNSPECIFIED 05/28/2019 [place] LEDEZMA Ot M06.9 RHEUMATOID ARTHRITIS, UNSPECIFIED 05/28/2019 [place] LEDEZMA Ot M79.7 FIBROMYALGIA 05/28/2019 [place] LEDEZMA Ot M81.0 AGE- RELATED OSTEOPOROSIS W/O CURRENT PAT 05/28/2019 [place] LEDEZMA Ot R10.9 UNSPECIFIED ABDOMINAL PAIN 05/28/2019 MELINDA LORENA LEDEZMA Ot Z87.01 PERSONAL HISTORY OF PNEUMONIA (RECURRENT 05/28/2019 MELINDA LORENA Pineda Ot Z87.19 PERSONAL HISTORY OF OTHER DISEASES OF TH 05/28/2019 MELINDA LORENA Pineda Ot Z87.891 PERSONAL HISTORY OF NICOTINE DEPENDENCE 05/28/2019 [facility] Pineda Ot Z88.2 ALLERGY STATUS TO SULFONAMIDES STATUS 05/28/2019 [place] Pineda Ot Z90.710 ACQUIRED ABSENCE OF [...] OTHER INTERVERTEBRAL DISC DEGENERATION, 06/21/2019 Ot 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, U 06/21/2019 Ot [...] OTHER INTERVERTEBRAL DISC DEGENERATION, 06/23/2019 Ot 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, U 06/23/2019 Ot [...] OTHER INTERVERTEBRAL DISC DEGENERATION, 09/17/2019 Ot 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, U 09/17/2019 Ot [...] OTHER INTERVERTEBRAL DISC DEGENERATION, 10/22/2019 Ot 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 7 FIBROMYALGIA 12/24/2019 KIRSTIN GARAZ MD Ot R22. 0 LOCALIZED SWELLING, MASS AND LUMP, HEAD 12/24/2019 KIRSTIN GARZA MD Ot T78.3XXA ANGIONEUROTIC EDEMA, INITIAL ENCOUNTER 12/24/2019 KIRSTIN GARZA MD Ot Z79. 52 SPORTS BROADCASTER (CURRENT) USE OF SYSTEMIC STER 12/24/2019 KIRSTIN [...] 9 CHRONIC OBSTRUCTIVE PULMONARY DISEASE, U 12/28/2019 GREG ESCALANTE, KIRSTIN Villeda Ot M06. 9 RHEUMATOID ARTHRITIS, UNSPECIFIED 12/28/2019 GREG ESCALANTE, KIRSTIN Villeda Ot M79. 7 FIBROMYALGIA 12/28/2019 GREG ESCALANTE, KIRSTIN Vlileda Ot R22. 0 LOCALIZED SWELLING, MASS AND LUMP, HEAD 12/28/2019 GREG ESCALANTE, KIRSTIN Villeda Ot T78.3XXA ANGIONEUROTIC EDEMA, INITIAL ENCOUNTER 12/28/2019 GREG ESCALANTE, KIRSTIN Villeda Ot Z79. 52 SNF (CURRENT) USE OF SYSTEMIC STER 12/28/2019 KIRSTIN [...] .9 ERYTHEMATOUS CONDITION, UNSPECIFIED 12/29/2019 DEONNA MOBLEY PROGRAMMABLE LOGIC CONTROLLER ASSEMBLER Ot Z87.891 PERSONAL HISTORY OF NICOTINE DEPENDENCE 12/29/2019 DEONNA MOBLEY PROGRAMMABLE LOGIC CONTROLLER ASSEMBLER Ot Z88 .2 ALLERGY STATUS TO SULFONAMIDES STATUS 01/06/2020 DEONNA MOBLEY APRN Ot E03 .9 HYPOTHYROIDISM, UNSPECIFIED 01/06/2020 DEONNA MOBLEY APRN Ot E78.00 PURE HYPERCHOLESTEROLEMIA, UNSPECIFIED 01/06/2020 MOBLEY, DEONNA Villeda APRN Ot F31 .9 BIPOLAR DISORDER, UNSPECIFIED 01/06/2020 MOBLEY, DEONNA Villeda APRN Ot F41 .9 ANXIETY DISORDER, UNSPECIFIED 01/06/2020 DEONNA MOBLEY PROGRAMMABLE LOGIC CONTROLLER ASSEMBLER Ot I10 ESSENTIAL (PRIMARY) HYPERTENSION 01/06/2020 ITZ, DEONNA Villeda APRN Ot J44 .9 CHRONIC OBSTRUCTIVE PULMONARY DISEASE, U 01/06/2020 DEONNA MOBLEY APRN Ot K62.89 OTHER SPECIFIED DISEASES OF ANUS AND REC 01/06/2020 DEONNA MBOLEY APRN Ot Z79.52 SNF (CURRENT) USE OF SYSTEMIC STER 01/06/2020 DEONNA MOBLEY PROGRAMMABLE LOGIC CONTROLLER ASSEMBLER Ot Z85.41 PERSONAL HISTORY OF MALIGNANT NEOPLASM O 01/06/2020 DEONNA MOBLEY PROGRAMMABLE LOGIC CONTROLLER ASSEMBLER Ot Z87.891 PERSONAL HISTORY OF NICOTINE DEPENDENCE 01/06/2020 ITZ, DEONNA Villeda PROGRAMMABLE LOGIC CONTROLLER ASSEMBLER Ot Z88 .2 ALLERGY STATUS TO SULFONAMIDES STATUS 01/07/2020 EDILSON, BLU MOLD RUNNER Ot E03.9 HYPOTHYROIDISM, UNSPECIFIED 01/07/2020 EDILSON, BLU MOLD RUNNER Ot E78.00 PURE HYPERCHOLESTEROLEMIA, UNSPECIFIED 01/07/2020 EDILSON, BLU MOLD RUNNER Ot F31.9 BIPOLAR DISORDER, UNSPECIFIED 01/07/2020 EDILSON, BLU MOLD RUNNER Ot F41.9 ANXIETY DISORDER, UNSPECIFIED 01/07/2020 EDILSON, BLU MOLD RUNNER Ot I10 ESSENTIAL (PRIMARY) HYPERTENSION 01/07/2020 EDILSON, BLU MOLD RUNNER Ot J44.9 CHRONIC OBSTRUCTIVE PULMONARY DISEASE, U 01/07/2020 EDILSON, BLU MOLD RUNNER Ot M06.9 RHEUMATOID ARTHRITIS, UNSPECIFIED 01/07/2020 EDILSON, BLU MOLD RUNNER Ot M79.89 OTHER SPECIFIED SOFT TISSUE DISORDERS 01/07/2020 EDILSON, BLU MOLD RUNNER Ot Z79.52 SNF (CURRENT) USE OF SYSTEMIC STER 01/07/2020 EDILSON, BLU MOLD RUNNER Ot Z85.41 PERSONAL HISTORY OF MALIGNANT NEOPLASM [...] STEPH DAILY Ot Y92.[address] IN [facility] (PRIVATE 01/11/2020 STEPH DAILY Ot Z85.41 PERSONAL HISTORY OF MALIGNANT NEOPLASM O 01/11/2020 STEPH DAILY Ot Z87.891 PERSONAL HISTORY OF NICOTINE DEPENDENCE 01/11/2020 TSEPH DAILY Ot Z88.2 ALLERGY STATUS TO SULFONAMIDES [...] STEPH DAILY Ot Y92.[address] IN [facility] NON[facility] (PRIVATE 01/16/2020 STEPH DAILY Ot Z85.41 PERSONAL HISTORY OF MALIGNANT NEOPLASM O 01/16/2020 STEPH DAILY Ot Z87.891 PERSONAL HISTORY OF NICOTINE DEPENDENCE 01/16/2020 STEPH DAILY Ot Z88.2 ALLERGY STATUS TO SULFONAMIDES STATUS 01/23/2020 STEPH DAILY Ot E03.9 HYPOTHYROIDISM, UNSPECIFIED 01/23/2020 STEPH DAILY Ot E78.00 PURE HYPERCHOLESTEROLEMIA, UNSPECIFIED 01/23/2020 STEPH DAILY Ot E87.6 HYPOKALEMIA 01/23/2020 STEPH DAILY Ot F31.9 BIPOLAR DISORDER, UNSPECIFIED 01/23/2020 STPEH DAILY Ot F41.9 ANXIETY DISORDER, UNSPECIFIED 01/23/2020 [...] STEPH DAILY Ot Y92.[address] IN [facility] NON-[facility] (PRIVATE 01/23/2020 STEPH DAILY Ot Z85.41 [...] I 10 ESSENTIAL (PRIMARY) HYPERTENSION 01/23/2020 STEPH ADILY Ot J44.9 CHRONIC OBSTRUCTIVE PULMONARY DISEASE, U [...] INITIAL ENCOUN 01/23/2020 STEPH DAILY Ot Y92.[address] [facility] [address] IN [facility] NON[facility] (PRIVATE 01/23/2020 STEPH DAILY Ot Z85.41 PERSONAL HISTORY OF MALIGNANT NEOPLASM O 01/23/2020 STEPH DAILY Ot Z87.891 PERSONAL HISTORY OF NICOTINE DEPENDENCE 01/23/2020 STEPH DAILY Ot Z88.2 ALLERGY STATUS TO SULFONAMIDES STATUS 01/24/2020 BLU WAGGONERP Ot E03.9 HYPOTHYROIDISM, UNSPECIFIED 01/24/2020 EDILSONBLU CordovaP Ot E78.00 PURE HYPERCHOLESTEROLEMIA, UNSPECIFIED 01/24/2020 EDILSON, BLU MOLD RUNNER Ot F31.9 BIPOLAR DISORDER, UNSPECIFIED 01/24/2020 EDILSON, BLU MOLD RUNNER Ot F41.9 ANXIETY DISORDER, UNSPECIFIED 01/24/2020 BLU WAGGONERP Ot I10 ESSENTIAL (PRIMARY) HYPERTENSION 01/24/2020 BLU WAGGONERP Ot J44.9 CHRONIC OBSTRUCTIVE PULMONARY DISEASE, U 01/24/2020 EDILSON BLU MOLD RUNNER Ot M06.9 RHEUMATOID ARTHRITIS, UNSPECIFIED 01/24/2020 EDILSON, BLU MOLD RUNNER Ot M79.89 OTHER SPECIFIED SOFT TISSUE DISORDERS 01/24/2020 EDILSON, BLU MOLD RUNNER Ot Z79.52 SNF (CURRENT) USE OF SYSTEMIC STER 01/24/2020 EDILSON, [...] R82. 99 OTHER ABNORMAL FINDINGS IN URINE 06/01/2020 KIRSTIN GARZA MD Ot E03. 9 HYPOTHYROIDISM, UNSPECIFIED 06/01/2020 GREG ESCALANTE, KIRSTIN Villeda Ot F31. 9 BIPOLAR DISORDER, UNSPECIFIED 06/01/2020 GREG ESCALANTE, KIRSTIN Villeda Ot F41. 9 ANXIETY DISORDER, UNSPECIFIED 06/01/2020 GREG ESCALANTE, KIRSTIN Villeda Ot G62. 9 POLYNEUROPATHY, UNSPECIFIED 06/01/2020 GREG ESCALANTE, KIRSTIN Villeda Ot G89. 29 OTHER CHRONIC PAIN 06/01/2020 KIRSTIN GARZA MD Ot I10 ESSENTIAL (PRIMARY) HYPERTENSION 06/01/2020 KIRSTIN GARZA MD Ot J44. 9 CHRONIC OBSTRUCTIVE PULMONARY DISEASE, U 06/01/2020 KIRSTIN GARZA MD Ot M06. 9 RHEUMATOID ARTHRITIS, UNSPECIFIED 06/01/2020 KIRSTIN GARZA MD Ot M54. 9 DORSALGIA, UNSPECIFIED 06/01/2020 GREG ESCALANTE, KIRSTIN Villeda Ot M79. 7 FIBROMYALGIA 06/01/2020 KIRSTIN GARZA MD Ot R40.2142 COMA SCALE, EYES OPEN, SPONTANEOUS, EMR 06/01/2020 KIRSTIN GARZA MD Ot R40.2252 COMA SCALE, BEST VERBAL RESPONSE, ORIENT 06/01/2020 KIRSTIN GARZA MD Ot R40.2362 COMA SCALE, BEST MOTOR RESPONSE, OBEYS C 06/01/2020 KIRSTIN GARZA MD Ot R51 HEADACHE 06/01/2020 KIRSTIN GARZA MD Ot W18.39XA OTHER FALL ON SAME LEVEL, INITIAL ENCOUN 06/01/2020 KIRSTIN GARZA MD Ot W22.8XXA STRIKING AGAINST OR STRUCK BY OTHER OBJE 06/01/2020 KIRSTIN GARZA MD Ot Y92.002 BATHRM OF [facility] NON-INSTITUT RESDNCE SNGL 06/01/2020 KIRSTIN GARZA MD Ot Z79. 52 SPORTS BROADCASTER (CURRENT) USE OF SYSTEMIC STER 06/01/2020 KIRSTIN GARZA MD, Ot Z79.890 HORMONE REPLACEMENT THERAPY 06/01/2020 KIRSTIN GARZA MD Ot Z79.891 SNF (CURRENT) USE OF OPIATE ANALGE 06/01/2020 KIRSTIN GARZA MD Ot Z85. 41 PERSONAL HISTORY OF MALIGNANT NEOPLASM O 06/01/2020 KIRSTIN GARZA MD Ot Z87.891 PERSONAL HISTORY OF NICOTINE DEPENDENCE 06/01/2020 KIRSTIN GARZA MD Ot Z88. 2 ALLERGY STATUS TO SULFONAMIDES STATUS 06/04/2020 KIRSTIN GARZA MD Ot E03. 9 HYPOTHYROIDISM, UNSPECIFIED 06/04/2020 KIRSTIN GARZA MD Ot F31. 9 BIPOLAR DISORDER, UNSPECIFIED 06/04/2020 KIRSTIN GARZA MD Ot F41. 9 ANXIETY DISORDER, UNSPECIFIED 06/04/2020 KIRSTIN GARZA MD Ot G62. 9 POLYNEUROPATHY, UNSPECIFIED 06/04/2020 KIRSTIN GARZA MD Ot G89. 29 OTHER CHRONIC PAIN 06/04/2020 KIRSTIN GARZA MD Ot I10 ESSENTIAL (PRIMARY) HYPERTENSION 06/04/2020 KIRSTIN GARZA MD Ot J44. 9 CHRONIC OBSTRUCTIVE PULMONARY DISEASE, U 06/04/2020 KIRSTIN GARZA MD Ot M06. 9 RHEUMATOID ARTHRITIS, UNSPECIFIED 06/04/2020 KIRSTIN GARZA MD Ot M54. 9 DORSALGIA, UNSPECIFIED 06/04/2020 KIRSTIN GARZA MD Ot M79. 7 FIBROMYALGIA 06/04/2020 KIRSTIN GARZA MD Ot R40.2142 COMA SCALE, EYES OPEN, SPONTANEOUS, EMR 06/04/2020 KIRSTIN GARZA MD Ot R40.2252 COMA SCALE, BEST VERBAL RESPONSE, ORIENT 06/04/2020 KIRSTIN GARZA MD Ot R40.2362 COMA SCALE, BEST MOTOR RESPONSE, OBEYS C 06/04/2020 KIRSTIN GARZA MD Ot R51 HEADACHE 06/04/2020 KIRSTIN GARZA MD Ot W18.39XA OTHER FALL ON SAME LEVEL, INITIAL ENCOUN 06/04/2020 KIRSTIN GARZA MD Ot W22.8XXA STRIKING AGAINST OR STRUCK BY OTHER OBJE 06/04/2020 KIRSTIN GARZA MD Ot Y92.002 BATHRM OF [facility] NON-INSTITUT RESDNCE SNGL 06/04/2020 KIRSTIN GARZA MD Ot Z79. 52 SNF (CURRENT) USE OF SYSTEMIC STER 06/04/2020 KIRSTIN GARZA MD Ot Z79.890 HORMONE REPLACEMENT THERAPY 06/04/2020 KIRSTIN GARZA MD, Ot Z79.891 SNF (CURRENT) USE OF OPIATE ANALGE 06/04/2020 KIRSTIN GARZA MD Ot Z85. 41 PERSONAL HISTORY OF MALIGNANT NEOPLASM O 06/04/2020 KIRSTIN GARZA MD, Ot Z87.891 PERSONAL HISTORY OF NICOTINE DEPENDENCE 06/04/2020 KIRSTIN GARZA MD, Ot Z88. 2 ALLERGY STATUS TO SULFONAMIDES STATUS 06/08/2020 HOUSER DO, EZIO L Ot E03.9 HYPOTHYROIDISM, UNSPECIFIED 06/08/2020 HOUSER DO, EZIO L Ot E78.0 0 PURE HYPERCHOLESTEROLEMIA, UNSPECIFIED 06/08/2020 HOUSER DO, EZIO L Ot F31.9 BIPOLAR DISORDER, UNSPECIFIED 06/08/2020 HOUSER DO, EZIO L Ot F41.9 ANXIETY DISORDER, UNSPECIFIED 06/08/2020 HOUSER DO, EZIO L Ot G62.9 POLYNEUROPATHY, UNSPECIFIED 06/08/2020 HOUSER DO, EZIO L Ot G89.2 9 OTHER CHRONIC PAIN 06/08/2020 HOUSER DO, EZIO L Ot H40.9 UNSPECIFIED GLAUCOMA 06/08/2020 HOUSER DO, EZIO L Ot I10 ESSENTIAL (PRIMARY) HYPERTENSION 06/08/2020 HOUSER DO, EZIO L Ot I47.1 SUPRAVENTRICULAR TACHYCARDIA 06/08/2020 HOUSER DO, EZIO L Ot J44.9 CHRONIC OBSTRUCTIVE PULMONARY DISEASE, U 06/08/2020 HOUSER DO, EZIO L Ot K44.9 DIAPHRAGMATIC HERNIA WITHOUT OBSTRUCTION 06/08/2020 HOUSER DO, EZIO L Ot K52.9 NONINFECTIVE GASTROENTERITIS AND COLITIS 06/08/2020 HOUSER DO, EZIO L Ot K59.0 9 OTHER CONSTIPATION 06/08/2020 HOUSER DO, EZIO L Ot M06.9 RHEUMATOID ARTHRITIS, UNSPECIFIED 06/08/2020 HOUSER DO, EZIO L Ot M19.9 0 UNSPECIFIED OSTEOARTHRITIS, UNSPECIFIED 06/08/2020 HOUSER DO, EZIO L Ot M54.9 DORSALGIA, UNSPECIFIED 06/08/2020 HOUSER DO, EZIO L Ot M79.1 0 MYALGIA, UNSPECIFIED SITE 06/08/2020 HOUSER DO, EZIO L Ot M81.0 AGE-RELATED OSTEOPOROSIS W/O CURRENT PAT 06/08/2020 HOUSER DO, EZIO L Ot R11.0 NAUSEA 06/08/2020 HOUSER DO, EZIO L Ot Z79.8 90 HORMONE REPLACEMENT THERAPY 06/08/2020 HOUSER DO, EZIO L Ot Z79.8 99 OTHER SPORTS [place] (CURRENT) DRUG THERAPY 06/08/2020 HOUSER DO, EZIO L Ot Z85.4 1 PERSONAL HISTORY OF MALIGNANT NEOPLASM O 06/08/2020 HOUSER DO, EZIO L Ot Z87.8 91 PERSONAL HISTORY OF NICOTINE DEPENDENCE 06/08/2020 HOUSER DO, EZIO L Ot Z88.2 ALLERGY STATUS TO SULFONAMIDES STATUS Procedures Code Description Performed By Jarad pedroza On 48.63 ANTE RIOR RECT RESECT NEC 09/19/2010 53.43 OTHE R LAPAROSCOPIC UMBILICAL HERNIORRHAP 09/19/2010 62234 PSYC H IND W/MED CK 20 11/13/2011 91223 PSYC H IND W/MED CK 20 11/18/2012 16884 PSYC H IND W/MED CK 20 01/24/2013 Results Test Result Range Hemoglobin A1C - 01/12/17 14:47 % A1C 5.50 % 5.40-6.60 AvGlu 117 mg/dL 70-110 Urinalysis - 01/12/17 15:51 Icotest Positive Negative Urine Volume Urine Volume Sufficient (10mL) Urine-Appearance Cloudy Clear Urine-Bacteria 2+ Urine-Bilirubin 2+ Negative Urine-Blood Trace-lysed Negative Urine-Color Yellow Colorless-Lt. [place] ow Urine-Epithelial Cells 5-10/HPF Urine-Glucose Negative Negative Urine-Ketones 4+ Negative Urine-Leukocytes Trace Negative Urine-Mucus 1+ Urine-Nitrite Negative Negative Urine-Other Urine Saved if Culture Need ed (48hrs from time of collection) Urine-pH 5.5 5-8.5 Urine-Protein 2+ Negative Urine-Specific Riley >=1.030 1.000-1 .030 Urine-WBC 2-5/HPF Urobilinogen 0.2 [...] Negative Urine-Blood Trace-intact Negative Urine-Color Yellow Colorless-Lt. [place] ow Urine-Epithelial Cells 5-10/HPF Urine-Glucose Negative Negative Urine-Ketones Trace Negative Urine-Leukocytes Negative Negative Urine-Mucus 3+ Urine-Nitrite Negative Negative Urine-Other Culture to follow Urine-pH 6.0 5-8.5 Urine-Protein Negative Negative Urine-RBC Rare/HPF Urine-Specific Riley 1.020 1.000-1 .030 Urine-WBC 2-5/HPF Urobilinogen 1.0 [...] Negative Urine-Blood Negative Negative Urine-Color Yellow Colorless-Lt. [place] ow Urine-Epithelial Cells 10-20/HPF Urine-Glucose Negative Negative Urine-Ketones 4+ Negative Urine-Leukocytes Negative Negative Urine-Mucus 1+ Urine-Nitrite Negative Negative Urine-Other Urine Saved if Culture Need ed (48hrs from time of collection) Urine-pH 5.5 5-8.5 Urine-Protein Trace Negative Urine-RBC Rare/HPF Urine-Specific Riley >=1.030 1.000-1 .030 Urine-WBC Rare/HPF Urobilinogen 0.2 [...] Negative Urine-Blood Negative Negative Urine-Color Yellow Colorless-Lt. [place] ow Urine-Epithelial Cells 0-5/HPF Urine-Glucose Negative Negative Urine-Ketones 4+ Negative Urine-Leukocytes Negative Negative Urine-Mucus 3+ Urine-Nitrite Negative Negative Urine-Other Culture to follow Urine-pH 6.0 5-8.5 Urine-Protein 2+ Negative Urine-RBC 0-2/HPF Urine-Specific Riley >=1.030 1.000-1 .030 Urine-WBC 2-5/HPF Urobilinogen 1.0 [...] 4.5 mmol/L 3.5-5.3 Sodium 146 mmol/L 134-148 [facility] 01/17/18 08:51 Anion Gap 16 6-14 [...] 3.9 mmol/L 3.5-5.3 Sodium 144 mmol/L 134-148 [facility] 02/03/18 17:50 Hct 34.7 % 36.0-46.0 Hgb 11.2 g/dL 13.0-15.0 CBC with Auto Diff - 02/04/18 07:00 Baso% 0.00 % 0.00-2.50 Eos 0.0 K/uL 0.0-0.7 Eos% 0.9 % 0.0-7.0 Hct 35.1 % 36.0-46.0 Hgb 11.4 g/dL 13.0-15.0 Lym 1.18 K/uL 0.60-3.40 Lym% 35.6 % 10.0-50.0 MCH 30.6 pg 27.0-31.0 MCHC 32.5 g/dL 32.0-36.0 MCV 94.4 fL 80.0-97.0 Liberty% 10.0 % 0.0-12.0 MPV 10.0 fL 7.4-10.0 Deanna% 53.5 % 37.0-80.0 Plt 175 K/uL 150-400 RBC 3.72 M/uL 3.60-5.00 RDW 14.0 % 11.6-14.8 WBC 3.31 K/uL 5.00-10.00 Deanna 1.77 K/uL 2.00-6.90 Liberty 0.3 K/uL 0.0-0.9 Baso 0.0 K/uL 0.0-0.2 Surgical Pathology - 02/11/18 09:35 Surg Path Sent to [facility] Comprehensive Metabolic Panel - 02/12/18 05:21 [...] Negative Urine-Blood Negative Negative Urine-Color Yellow Colorless-Lt. [place] ow Urine-Epithelial Cells 0-5/HPF Urine-Glucose Negative Negative Urine-Ketones Negative Negative Urine-Leukocytes Negative Negative Urine-Nitrite Negative Negative Urine-Other Urine Saved if Culture Need ed (48hrs from time of collection) Urine-pH 5.5 5-8.5 Urine-Protein Negative Negative Urine-RBC 0-2/HPF Urine-Specific Riley <=1.005 1.000-1 .030 Urine-WBC Negative Urobilinogen 0.2 E.U./dL 0.2-1.0 CBC with Auto Diff - 02/22/18 11:00 Baso% 0.20 % 0.00-2.50 Eos 0.1 K/uL 0.0-0.7 Eos% 1.1 % 0.0-7.0 Hct 34.6 % 36.0-46.0 Hgb 11.1 g/dL 13.0-15.0 Lym 1.70 K/uL 0.60-3.40 Lym% 36.3 % 10.0-50.0 MCH 29.9 pg 27.0-31.0 MCHC 32.1 g/dL 32.0-36.0 MCV 93.3 fL 80.0-97.0 Liberty% 15.2 % 0.0-12.0 MPV 11.0 fL 7.4-10.0 Deanna% 47.2 % 37.0-80.0 Plt 252 K/uL 150-400 RBC 3.71 M/uL 3.60-5.00 RDW 13.5 % 11.6-14.8 WBC 4.68 K/uL 5.00-10.00 Deanna 2.21 K/uL 2.00-6.90 Liberty 0.7 K/uL 0.0-0.9 Baso 0.0 K/uL 0.0-0.2 [...] 09/28/18 18:5 2 Bacterial throat culture NBS NR Complete blood count (CBC) with automate d [...] 7-25 CREATININE 0.80 mg/dL 0.60-0.93 eGFR NON-AFR. IRAQI 74 mL/min/1.73m2 > OR = 60 eGFR [...] 7-25 CREATININE 0.93 mg/dL 0.60-0.93 eGFR NON-AFR. IRAQI 62 mL/min/1.73m2 > OR = 60 eGFR [...] 31.4 g/dL 32.0-36.0 MCV 91.2 fL 80.0-97.0 Liberty% 9.4 % 0.0-12.0 MPV 11.4 fL 7.4-10.0 Deanna% 71.5 % 37.0-80.0 Plt 250 K/uL 150-400 RBC 4.44 M/uL 3.60-5.00 RDW 15.1 % 11.6-14.8 WBC 9.70 K/uL 5.00-10.00 Deanna 6.93 K/uL 2.00-6.90 Liberty 0.9 K/uL 0.0-0.9 Baso 0.0 K/uL 0.0-0.2 Urinalysis - 05/10/19 02:50 Icotest N/A Negative Urine Volume Urine Volume Sufficient (10mL) Urine-Appearance Clear Clear Urine-Bacteria Negative Urine-Bilirubin Negative Negative Urine-Blood Negative Negative Urine-Color Yellow Colorless-Lt. [place] ow Urine-Epithelial Cells 0-5/HPF Urine-Glucose Negative Negative Urine-Ketones Negative Negative Urine-Leukocytes Negative Negative Urine-Nitrite Negative Negative Urine-Other Urine Saved if Culture Need ed (48hrs from time of collection) Urine-pH 7.0 5-8.5 Urine-Protein Negative Negative Urine-RBC Rare/HPF Urine-Specific Riley 1.010 1.000-1 .030 Urine-WBC Rare/HPF Urobilinogen 0.2 0.2-1.0 [facility] - 05/10/19 03:10 Anion Gap 15 6-14 BUN 13 mg/dL 5-25 Calcium 9.8 mg/dL 8.3-10.4 Chloride 107 mmol/L 95-114 CO2 27 mEq/L 22-33 Creat 1.33 mg/dL 0.50-1.50 eGFR 39 mL/min/1.73m2 >59 Glucose 91 mg/dL 70-110 Osmo 299 280-295 Potassium 4.3 mmol/L 3.5-5.3 Sodium 145 mmol/L 134-148 [facility] - 05/10/19 10:16 Anion Gap 18 [...] blocking antibody assay - 05/10/19 19:44 ACETYLCHOLINE DRAIN TECHNICIAN BINDING AB 0.0 % 0.0-0.4 Complete urinalysis [...] pa nadeen - 05/23/19 23:10 WRISTBAND NUMBER [id number] NRG ABO+Rh group OP NRG Blood group [...] protein measurement (mass/v olume) 2.27 mg/dL 0.00-0.50 [id number] - 06/14/19 13:05 [id number] 14.9 ug/mL 50.0-100.0 Complete urinalysis with reflex [...] urinalysis with reflex to culture NO NRG [id number] - 06/25/19 08:45 [id number] 36.2 ug/mL 50.0-100.0 CBC - 11/18/19 10:27 [...] Blood lactic acid measurement (moles/vol ume) - 03/08/20 12:27 Blood lactic acid measurement (moles/volume) 1.87 [...] 7-25 CREATININE 0.90 mg/dL 0.60-0.93 eGFR NON-AFR. IRAQI 64 mL/min/1.73m2 > OR = 60 eGFR [...] 03/31/20 15:34 C-REACTIVE PROTEIN 2.2 mg/L <8.0 Complete blood count (CBC) with automate d white blood cell (WBC) differential - 06/06/20 08:24 Blood leukocytes automated count (number/volume) 7.8 10*3/uL 4.3-11.0 Blood erythrocytes automated count (number/volume) 3.80 10*6/uL 4.35-5.85 Venous blood hemoglobin measurement (mass/volume) 10.2 g/dL 11.5-16.0 Blood hematocrit (volume fraction) 33 % 35-52 Automated erythrocyte mean corpuscular volume 87 [ foz_us] 80-99 Automated erythrocyte mean corpuscular h emoglobin (mass per erythrocyte) 27 pg 25-34 Automated erythrocyte mean corpuscular h emoglobin concentration measurement (mass/volume) 31 g/dL 32-36 Automated erythrocyte distribution width ratio 18. 0 % 10.0- 14.5 Automated blood platelet count (count/volume) 236 10*3/uL 130-400 Automated blood platelet mean volume measurement 9.7 [foz_us] 7.4-10.4 Automated blood neutrophils/100 leukocytes 74 % 42-75 Automated blood lymphocytes/100 leukocytes 13 % 12-44 Blood monocytes/100 leukocytes 12 % 0-12 Automated blood eosinophils/100 leukocytes 1 % 0-10 Automated blood basophils/100 leukocytes 0 % 0-10 Blood neutrophils automated count (number/volume) 5.7 10*3 1.8-7.8 Blood lymphocytes automated count (number/volume) 1.0 10*3 1.0-4.0 Blood monocytes automated count (number/volume) 1. 0 10*3 0.0-1.0 Automated eosinophil count 0.1 10*3/uL 0 .0-0.3 Automated blood basophil count (count/volume) 0.0 10*3/uL 0.0-0.1 Comprehensive metabolic panel - 06/06/20 08:24 Serum or plasma sodium measurement (moles/volume) 142 mmol/L 135-145 Serum or plasma potassium measurement (moles/volume) 3.8 mmol/L 3.6-5.0 Serum or plasma chloride measurement (moles/volume) 110 mmol/L 98-107 Carbon dioxide 23 mmol/L 21-32 Serum or plasma anion gap determination (moles/volume) 9 mmol/L 5-14 Serum or plasma urea nitrogen measurement (mass/volume ) 17 mg/dL 7-18 Serum or plasma creatinine measurement (mass/volume) 0.99 mg/dL 0.60-1.30 Serum or plasma urea nitrogen/creatinine mass ratio 17 NRG Serum or plasma creatinine measurement w ith calculation of estimated glomerular filtration rate 55 NRG Serum or plasma glucose measurement (mass/volume) 131 mg/dL 70-105 Serum or plasma calcium measurement (mass/volume) 9.0 mg/dL 8.5-10.1 Serum or plasma total bilirubin measurement (mass/volu me) 0.5 mg/dL 0.1-1.0 Serum or plasma alkaline phosphatase med surement (enzymatic activity/volume) 87 U/L 40-136 Serum or plasma aspartate aminotransfera se measurement (enzymatic activity/volume) 16 U/L 5-34 Serum or plasma alanine aminotransferase measurement (enzymatic activity/volume) 18 U/L 0-55 Serum or plasma protein measurement (mass/volume) 6.1 g/dL 6.4-8.2 Serum or plasma albumin measurement (mass/volume) 3.9 g/dL 3.2-4.5 CALCIUM CORRECTED 9.1 mg/dL 8.5-10.1 Lipase - 06/06/20 08:24 Lipase 18 U/L 8-78 Complete blood count (CBC) with automate d white blood cell (WBC) differential - 06/08/20 01:05 Blood leukocytes automated count (number/volume) 8.0 10*3/uL 4.3-11.0 Blood erythrocytes automated count (number/volume) 3.96 10*6/uL 4.35-5.85 Venous blood hemoglobin measurement (mass/volume) 10.7 g/dL 11.5-16.0 Blood hematocrit (volume fraction) 34 % 35-52 Automated erythrocyte mean corpuscular volume 86 [ foz_us] 80-99 Automated erythrocyte mean corpuscular h emoglobin (mass per erythrocyte) 27 pg 25-34 Automated erythrocyte mean corpuscular h emoglobin concentration measurement (mass/volume) 31 g/dL 32-36 Automated erythrocyte distribution width ratio 17. 4 % 10.0- 14.5 Automated blood platelet count (count/volume) 266 10*3/uL 130-400 Automated blood platelet mean volume measurement 9.9 [foz_us] 7.4-10.4 Automated blood neutrophils/100 leukocytes 62 % 42-75 Automated blood lymphocytes/100 leukocytes 26 % 12-44 Blood monocytes/100 leukocytes 11 % 0-12 Automated blood eosinophils/100 leukocytes 1 % 0-10 Automated blood basophils/100 leukocytes 0 % 0-10 Blood neutrophils automated count (number/volume) 4.9 10*3 1.8-7.8 Blood lymphocytes automated count (number/volume) 2.1 10*3 1.0-4.0 Blood monocytes automated count (number/volume) 0. 9 10*3 0.0-1.0 Automated eosinophil count 0.1 10*3/uL 0 .0-0.3 Automated blood basophil count (count/volume) 0.0 10*3/uL 0.0-0.1 Comprehensive metabolic panel - 06/08/20 01:05 Serum or plasma sodium measurement (moles/volume) 144 mmol/L 135-145 Serum or plasma potassium measurement (moles/volume) 3.4 mmol/L 3.6-5.0 Serum or plasma chloride measurement (moles/volume) 109 mmol/L 98-107 Carbon dioxide 23 mmol/L 21-32 Serum or plasma anion gap determination (moles/volume) 12 mmol/L 5-14 Serum or plasma urea nitrogen measurement (mass/volume ) 13 mg/dL 7-18 Serum or plasma creatinine measurement (mass/volume) 0.92 mg/dL 0.60-1.30 Serum or plasma urea nitrogen/creatinine mass ratio 14 NRG Serum or plasma creatinine measurement w ith calculation of estimated glomerular filtration rate 60 NRG Serum or plasma glucose measurement (mass/volume) 97 mg/dL 70-105 Serum or plasma calcium measurement (mass/volume) 9.2 mg/dL 8.5-10.1 Serum or plasma total bilirubin measurement (mass/volu me) 0.4 mg/dL 0.1-1.0 Serum or plasma alkaline phosphatase med surement (enzymatic activity/volume) 96 U/L 40-136 Serum or plasma aspartate aminotransfera se measurement (enzymatic activity/volume) 18 U/L 5-34 Serum or plasma alanine aminotransferase measurement (enzymatic activity/volume) 16 U/L 0-55 Serum or plasma protein measurement (mass/volume) 6.3 g/dL 6.4-8.2 Serum or plasma albumin measurement (mass/volume) 4.0 g/dL 3.2-4.5 CALCIUM CORRECTED 9.2 mg/dL 8.5-10.1 Magnesium - 06/08/20 01:05 Magnesium 2.0 mg/dL 1.6-2.4 Serum or plasma creatine kinase measurem ent (enzymatic activity/volume) - 06/08/20 01:05 Serum or plasma creatine kinase measurem ent (enzymatic activity/volume) 72 U/L 29-168 Serum or plasma creatine kinase MB measu rement (enzymatic activity/volume) - 06/08/20 01:05 Serum or plasma creatine kinase MB measu rement (enzymatic activity/volume) 2.2 ng/mL <6.6 Serum or plasma troponin i.cardiac measu rement (mass/volume) - 06/08/20 01:05 Serum or plasma troponin i.cardiac measurement (mass/v olume) < ng/mL <0.028 Myoglobin, serum - 06/08/20 01:05 Myoglobin, serum 41.3 ng/mL 10.0-92.0 Serum or plasma amylase measurement (enz ymatic activity/volume) - 06/08/20 01:05 Serum or plasma amylase measurement (enzymatic activit y/volume) 75 U/L 25-125 Lipase - 06/08/20 01:05 Lipase 27 U/L 8-78 Serum or plasma lithium measurement (mol es/volume) - 06/08/20 01:05 BNP PT 53.2 pg/mL <100.0 [id number] - 06/08/20 01:05 [id number] < 2.0 50.0-100.0 PT panel in platelet poor plasma by coag ulation assay - 06/08/20 01:05 Prothrombin time (PT) in platelet poor plasma by coagu lation assay 13.4 s 12.2-14.7 INR in platelet poor plasma or blood by coagulation as say 1.0 0.8-1.4 Activated partial thromboplastin time (a PTT) in platelet poor plasma bycoagulation assay - 06/08/20 01:05 Activated partial thromboplastin time (a PTT) in platelet poor plasma bycoagulation assay 28 s 24-35 Complete urinalysis with reflex to cultu re - 06/08/20 01:15 Urine color determination YELLOW NRG Urine clarity determination SL CLOUDY N RG Urine pH measurement by test strip 6.0 [...] 1.0 Urine leukocyte esterase detection by dipstick TRA CE NEGATIVE Automated urine sediment erythrocyte cou nt by microscopy (number/high power field) [HPF] NRG Automated urine sediment leukocyte count by microscopy (number/high power field) [HPF] NRG Bacteria detection in urine sediment by light microsco py TRACE NRG Squamous epithelial cells detection in u rine sediment by light microscopy 2-5 NRG Crystals detection in urine sediment by light microsco py NONE NRG Casts detection in urine sediment by light microscopy NONE NRG Mucus detection in urine sediment by light microscopy NEGATIVE NRG Complete urinalysis with reflex to culture NO NRG Encounters ACCT No. Visit Date/Time Discharge Status Pt. Type Provider Facility Loc./Unit Complaint [id number] 01/19/2018 04:11:00 Document Registration [id number] 09/30/2014 16:41:00 09/30/2014 23:59: 59 CLS Outpatient RONALD KIEL MICHELLE Froilan [id number] 07/15/2014 13:28:00 07/15/2014 23:59: 59 CLS Outpatient SAMARA ESPITIA APRN [id number] 05/06/2014 09:25:00 05/06/2014 23:59: 59 CLS Outpatient SAMARA ESPITIA APRN [id number] 04/06/2014 09:02:00 04/06/2014 23:59: 59 CLS Outpatient SAMARA ESPITIA APRN [id number] 02/24/2014 12:55:00 02/24/2014 23:59: 59 CLS Outpatient SAMARA ESPITIA APRN [id number] 02/04/2014 13:24:00 02/04/2014 23:59: 59 CLS Outpatient SAMARA ESPITIA APRN [id number] 11/19/2013 10:21:00 11/19/2013 23:59: 59 CLS Outpatient SAMARA ESPITIA APRN [id number] 09/15/2013 09:11:00 09/15/2013 23:59: 59 CLS Outpatient SAMARA ESPITIA APRN [id number] 06/03/2013 13:58:00 06/03/2013 23:59: 59 CLS Outpatient ANDER GRANT DO [id number] 11/18/2012 13:44:00 11/18/2012 23:59: 59 CLS Outpatient SAMARA ESPITIA APRN [id number] 10/17/2012 14:16:00 10/17/2012 23:59: 59 CLS Outpatient SAMARA ESPITIA APRN [id number] 11/10/2011 14:31:00 11/10/2011 23:59: 59 CLS Outpatient [id number] 04/10/2013 11:20:00 Document Registration [id number] 01/24/2013 13:15:00 Document Registration [id number] 01/24/2020 00:00:00 02/19/2020 07:45 :00 DIS Outpatient UNLISTED, AMARILIS [id number] 05/10/2019 09:55:00 05/10/2019 23:59: 00 DIS Outpatient Marie RaglandAnnetteMiranda [id number] 05/10/2019 01:44:00 05/10/2019 04:45: 00 DIS Outpatient LANI SHIPLEY APRN [facility] ER [id number] 05/05/2019 22:28:00 05/05/2019 23:16: 00 DIS Outpatient GISELA HIGGINBOTHAM [facility] ER [id number] 05/02/2019 12:03:00 05/02/2019 14:22: 00 [id number] 08/16/2018 08:57:00 08/16/2018 10:23: 00 [id number] 08/04/2018 00:35:00 08/04/2018 01:58: 00 DIS Outpatient Jacqui Lewis [facility] ER [id number] 08/01/2018 14:00:00 08/01/2018 15:05: 00 DIS Outpatient Jean Wallace [facility] ER [id number] 07/17/2018 09:42:00 07/17/2018 23:59: 00 DIS Outpatient NINO DOMINGUEZ [id number] 07/17/2018 09:16:00 07/17/2018 23:59: 00 DIS Outpatient NION DOMINGUEZ [id number] 01/18/2018 00:00:00 04/10/2018 07:48: 00 DIS Outpatient Mac Madden [id number] 02/22/2018 12:04:00 02/22/2018 23:59: 00 DIS Outpatient Mac Madden [id number] 02/12/2018 05:09:00 02/12/2018 08:24: 00 DIS Outpatient GISELA HIGGINBOTHAM Lisa [facility] ER [id number] 02/11/2018 06:58:00 02/11/2018 09:30: 00 DIS Outpatient Jac Vanessa [id number] 02/03/2018 00:28:00 02/04/2018 14:40: 00 DIS Outpatient Bruce Stoner [facility] MED-SURG [id number] 01/14/2018 08:15:00 01/17/2018 14:00: 00 DIS Inpatient [facility] MED-SURG [id number] 11/17/2017 02:01:00 11/17/2017 06:53: 00 DIS Outpatient Jean Wallace [facility] ER [id number] 07/23/2017 11:33:00 07/25/2017 14:15: 00 DIS Outpatient [facility] MED-SURG [id number] 01/12/2017 14:08:00 01/13/2017 13:20: 00 DIS Outpatient Matt Ragland [id number] 07/19/2018 10:31:21 Document Registration [id number] 01/12/2018 15:04:00 Document Registration [id number] 01/12/2017 14:50:40 Document Registration [id number] 06/08/2020 10:00:00 ACT Outpatient MAC MADDEN [facility] [id number] 03/31/2020 15:00:00 Document Registration [id number] 11/18/2019 09:15:00 Document Registration [id number] 04/17/2019 09:00:00 Document Registration [id number] 03/13/2019 14:00:00 Document Registration [id number] 01/15/2019 13:15:00 Document Registration [id number] 06/08/2020 00:49:00 02:46:00 DIS Emergency [place] LORENA LEDEZMA [facility] ER ELEVATED BLOOD PRESSURE [id number] 06/06/2020 08:12:00 11:45:00 DIS Outpatient CORRINA DOEZIO L [facility] ER ARM PAIN [id number] 05/29/2020 11:02:00 13:52:00 DIS Outpatient KIRSTIN GARZA MD [facility] ER FALL [id number] 01/11/2020 12:14:00 15:36:00 DIS Emergency STEPH DAILY [facility] ER FALL [id number] 01/07/2020 14:47:00 15:14:00 DIS Emergency BLU WAGGONER [facility] ER SWELLING OF HANDS AND F EET [id number] 01/06/2020 19:18:00 21:18:00 DIS Emergency DEONNA MOBLEY APRN [facility] ER RECTAL BLEEDING [id number] 12/25/2019 13:20:00 17:13:00 DIS Emergency DEONNA MOBLEY APRN [facility] ER L LEG/TONGUE SWELLING [id number] 12/24/2019 14:21:00 17:05:00 DIS Emergency KIRSTIN GARZA MD [facility] ER MOUTH/TONGUE SWELLING [id number] 10/22/2019 19:22:00 21:00:00 DIS Emergency DEONNA MOBLEY APRN [facility] ER FALL,SHOULDER PAIN [id number] 06/25/2019 08:31:00 23:59:59 CLS Outpatient SARAHI ESCALANTE, HALEY Pineda [facility] LAB MIGRAINE [id number] 06/14/2019 13:04:00 17:31:00 DIS Emergency ELIEZER LOPEZ MD [facility] ER DEHYDRATION [id number] 06/06/2019 09:27:00 23:59:59 CLS Outpatient ROZINA ESCALANTE, MAC Pineda [facility] RAD SCREENING [id number] 05/23/2019 21:59:00 019 01:03:00 DIS Emergency MAURA ESCALANTE, KIRSTIN Arauz [facility] ER RECTAL BLEEDING [id number] 05/22/2019 01:38:00 019 05:11:00 DIS Emergency MELINDA DO, LORENA Pineda Brianna alexander [facility] ER VAGINAL/RECTAL DISCOMFO RT [id number] 05/17/2019 03:45:00 019 04:49:00 DIS Emergency KIRSTIN GARZA MD [facility] ER DIZZY,WEAKNESS [id number] 05/11/2019 13:41:00 16:27:00 DIS Emergency MELINDA DOLORENA [facility] ER MIGRAINE [id number] 05/10/2019 18:59:00 019 22:40:00 DIS Emergency DEONNA MOBLEY APRN [facility] ER MIGRAINE [id number] 03/05/2019 15:35:00 019 20:00:00 DIS Emergency MELINDA DO, LORENA Reed alexander [facility] ER DEHYDRATED [id number] 09/28/2018 16:14:00 018 20:06:00 DIS Emergency DEONNA MOBLEY APRN [facility] ER SORE THROAT/FEVER [id number] 08/29/2018 19:24:00 018 22:02:00 DIS Emergency KIRSTIN GARZA MD [facility] ER R LOWER LEG POSS CELLUL ITIS [id number] 05/09/2017 12:18:00 017 23:59:59 CLS Outpatient RENU CHRISTENSEN MD [facility] RAD 4+ VW[[id number]], [id number] 03/19/2017 09:00:00 017 23:59:59 CLS Outpatient YURI SEYMOUR MD [facility] RAD DIARRHEA [id number] 06/10/2015 16:09:00 015 11:30:00 DIS Inpatient MUKUL RUTHERFORD MD [facility] IRF LRFT TIB FIB FRX [id number] 06/08/2020 20:12:[address] Emergency LORENA LAWRENCE DO Via [facility] jen ER DIZZINESS [id number] 06/08/2020 10:35:[address] Outpatient ROZINA ESCALANTE, MAC Pineda [facility] LAB FS ATHEROSCLEROSIS OF TLINGIT & HAIDA CO RONARY ARTERY [id number] 07/08/2019 14:17:00 Document Registration [id number] 07/08/2019 14:17:00 Document Registration [id number] 01/10/2019 09:58:00 Document Registration [id number] 02/29/2012 01:06:00 Document Registration [id number] 05/22/2011 15:24:00 Document Registration [id number] 05/21/2011 20:01:00 Document Registration [id number] 05/14/2011 10:31:00 Document Registration [id number] 11/24/2010 08:50:00 Document Registration [id number] 10/20/2010 08:36:00 Document Registration [id number] 09/23/2010 16:00:00 Document Registration [id number] 09/12/2010 15:57:00 Document Registration [id number] 08/11/2010 15:19:00 Document Registration [id number] 08/10/2010 13:28:00 Document Registration [id number] 08/09/2010 14:33:00 Document Registration [id number] 02/12/2009 11:00:00 Document Registration [id number] 08/15/2007 08:32:00 Document Registration
--- NOTE | 2020-06-08 22:12 | ED General ---
General Chief Complaint: Psych/Social Disorder Stated Complaint: DIZZINESS Allergies and Home Medications Allergies Coded Allergies: Sulfa (Sulfonamide Antibiotics) (Verified Allergy, Unknown, 05/17/19) Home Medications Amitriptyline HCl 25 Mg Tablet, 25 MG PO HS, (Reported) Aripiprazole 15 Mg Tablet, 15 MG PO DAILY, (Reported) Cholecalciferol (Vitamin D3) 1,000 Unit Tablet, 1,000 UNIT PO DAILY, (Reported) Epinephrine 0.3 Mg/0.3 Ml Auto.injct, 0.3 MG IJ Q15M PRN for angioedema Prescribed by: KIRSTIN GARZA on 12/24/19 1658 Gabapentin 300 Mg Capsule, 300 MG PO BID, (Reported) Levothyroxine Sodium 75 Mcg Tablet, 75 MCG PO DAILY, (Reported) Lidocaine 15 Gm Cream..g., 1 GM TP TID PRN for PAIN-SEVERE (8-10) Prescribed by: DEONNA MOBLEY on 01/06/202029 Meclizine HCl 25 Mg Tablet, 25 MG PO Q6H PRN for VERTIGO Prescribed by: KIRSTIN GARZA on 05/17/19 0440 Memantine HCl 5 Mg Tablet, 5 MG PO BID 5 MG PO Q AM and HS. Prescribed by: BLU QUINONES on 06/10/15 1523 Metoprolol Tartrate 50 Mg Tablet, 50 MG PO DAILY, (Reported) Ondansetron 4 Mg Tab.rapdis, 4 MG PO Q6H PRN for NAUSEA/VOMITING Prescribed by: ELIEZER LOPEZ on 06/14/19 1715 Pantoprazole Sodium 40 Mg Tablet.dr, 40 MG PO DAILY, (Reported) Potassium Chloride 20 Meq Tablet.er, 20 MEQ PO BID Prescribed by: STEPH FINN on 01/11/20 1442 Prednisone 10 Mg Tab, 30 MG PO DAILY Prescribed by: REGLA LAWRENCE on 05/11/19 1441 Sucralfate 1 Gm Tablet, 1 GM PO QIDACHS Prescribed by: REGLA LAWRENCE on 03/05/19 1914 Sumatriptan Succinate 100 Mg Tablet, 0.5 TAB PO PRN PRN for HEADACHE May repeat in 2 hours; Max 200 MG/24 hours. Prescribed by: BLU QUINONES on 06/10/15 1555 Tramadol HCl 50 Mg Tablet, 50 MG PO BID, (Reported) Vitamin E 400 Unit Capsule, 400 UNIT PO DAILY, (Reported) Vortioxetine Hydrobromide 5 Mg Tablet, 5 MG PO DAILY, (Reported) [Biotin] , 10,000 MCG PO Evening Prescribed by: BLU QUINONES on 06/12/15 153 [Folic Acid 1MG] , 2 MG PO DAILY, (Reported) [Iron 65MG] , 65 MG PO Evening Prescribed by: BLU QUINONES on 06/12/15 153 [Nitrostat] , 0.4 MG SL UD Q5 min X3 PRN. Prescribed by: BLU QUNIONES on 06/10/15 1555 [Potassium] , 20 MEQ PO BID, (Reported) Past Okfhent-Oxdify-Jvagnc Hx Patient Social History Alcohol Beverage of Choice: Wine Type Used: Cigarettes Former Smoker, Quit: May 13, 2009 2nd Hand Smoke Exposure: No Recent Hopitalizations: No Immunizations Up To Date Tetanus Booster (TDap): More than 5yrs PED Vaccines UTD: Yes Date of Pneumonia Vaccine: Sep 04, 2019 Date of Influenza Vaccine: Sep 04, 2019 Seasonal Allergies Seasonal Allergies: Yes Past Medical History Surgeries: Yes (PORT;HYST/BSO;BOWEL/RECTAL SURGERY;HIATAL HERNIA REPAIR;EGD/C- SCOPES) Abdominal, Adenoidectomy, Bowel Surgery, Gallbladder, Hysterectomy, Oophorectomy, Rectal, Tonsillectomy Respiratory: Yes Pneumonia, COPD Cardiac: Yes (PSVT; RBBB) High Cholesterol, Hypertension 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: Yes Dementia, Headaches /Migraines, Neuropathy, Vertigo 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, Menopausal Genitourinary: No Gastrointestinal: Yes (BOWEL/RECTAL SURGERY;RECTAL PROLAPSE REPAIR;HIATAL HERNIA REPAIR; U.COLITIS) Colitis, Gastroesophageal Reflux, Crohns Disease, Chronic Constipation, Chronic Diarrhea, Hiatal Hernia, Gall Bladder Disease, Irritable Bowel Musculoskeletal: Yes (FALLS, USES WALKER) Osteoporosis, Arthritis, Fibromyalgia, Rheumatoid Arthritis, Chronic Back Pain Endocrine: Yes Hypothyroidsim HEENT: Yes Glaucoma Cancer: Yes Cervical Did You Recieve Any Treatments: Yes What Type of Treatment Did You: Surgical Intervention Psychosocial: Yes (EXTENSIVE PSYCH ISSUES) Anxiety, Bipolar, Depression Integumentary: No Blood Disorders: No Family Medical History No Pertinent Family Hx PSH: -HYSTERECTOMY/BILATERAL SALPINGO-OOPHORECTOMY -BOWEL SURGERY FOR OBSTRUCTION -LAPAROSCOPY -RECTAL PROLAPSE REPAIR/SIGMOID RESECTION -UMBILICAL HERNIA REPAIR -HIATAL HERNIA REPAIR -HEMORRHOIDECTOMY -TONSILLECTOMY/ADENOIDECTOMY -CHOLECYSTECTOMY -PORT LEFT CHEST HAS CHRONIC RECTAL PAIN COMPLAINTS Physical Exam Vital Signs Capillary Refill : Height, Weight, BMI Height: 5'2.00" Weight: 125lbs. 0oz. 56.687726de; 23.00 BMI Method:Stated Progress/Results/Core Measures Suspected Sepsis SIRS Temperature: Pulse: Respiratory Rate: Laboratory Tests 06/08/20 20:29: White Blood Count 5.8 Blood Pressure / Mean: Laboratory Tests 06/08/20 20:29: Creatinine 0.90, INR Comment 1.0, Platelet Count 244, Total Bilirubin 0.5 Results/Orders Lab Results Laboratory Tests Test 06/08/20 20:29 06/08/20 23:12 Range/Units White Blood Count 5.8 4.3-11.0 10^3/uL Red Blood Count 3.92 L 4.35-5.85 10^6/uL Hemoglobin 10.8 L 11.5-16.0 G/DL Hematocrit 34 L 35-52 % Mean Corpuscular Volume 87 80-99 FL Mean Corpuscular Hemoglobin 28 25-34 PG Mean Corpuscular Hemoglobin Concent 32 32-36 G/DL Red Cell Distribution Width 18.1 H 10.0-14.5 % Platelet Count 244 130-400 10^3/uL Mean Platelet Volume 10.0 7.4-10.4 FL Neutrophils (%) (Auto) 62 42-75 % Lymphocytes (%) (Auto) 23 12-44 % Monocytes (%) (Auto) 13 H 0-12 % Eosinophils (%) (Auto) 2 0-10 % Basophils (%) (Auto) 0 0-10 % Neutrophils # (Auto) 3.6 1.8-7.8 X 10^3 Lymphocytes # (Auto) 1.3 1.0-4.0 X 10^3 Monocytes # (Auto) 0.8 0.0-1.0 X 10^3 Eosinophils # (Auto) 0.1 0.0-0.3 10^3/uL Basophils # (Auto) 0.0 0.0-0.1 10^3/uL Prothrombin Time 13.6 12.2-14.7 SEC INR Comment 1.0 0.8-1.4 Activated Partial Thromboplast Time 28 24-35 SEC Sodium Level 147 H 135-145 MMOL/L Potassium Level 3.6 3.6-5.0 MMOL/L Chloride Level 111 H 98-107 MMOL/L Carbon Dioxide Level 23 21-32 MMOL/L Anion Gap 13 5-14 MMOL/L Blood Urea Nitrogen 12 7-18 MG/DL Creatinine 0.90 0.60-1.30 MG/DL Estimat Glomerular Filtration Rate > 60 BUN/Creatinine Ratio 13 Glucose Level 93 70-105 MG/DL Calcium Level 9.1 8.5-10.1 MG/DL Corrected Calcium 9.3 8.5-10.1 MG/DL Magnesium Level 2.1 1.6-2.4 MG/DL Total Bilirubin 0.5 0.1-1.0 MG/DL Aspartate Amino Transf (AST/SGOT) 16 5-34 U/L Alanine Aminotransferase (ALT/SGPT) 14 0-55 U/L Alkaline Phosphatase 89 40-136 U/L Total Creatine Kinase 45 29-168 U/L Creatine Kinase MB 1.4 <6.6 NG/ML Myoglobin 40.4 10.0-92.0 NG/ML Troponin I < 0.028 < 0.028 <0.028 NG/ML B-Type Natriuretic Peptide 50.0 <100.0 PG/ML Total Protein 6.0 L 6.4-8.2 GM/DL Albumin 3.7 3.2-4.5 GM/DL My Orders Orders - REGLA LAWRENCE DO Ed Iv/Invasive Line Start (06/08/20 20:19) Ekg Tracing (06/08/20 20:19) Monitor-Rhythm Ecg Trace Only (06/08/20 20:19) BNP (06/08/20 20:19) Cbc With Automated Diff (06/08/20 20:19) Comprehensive Metabolic Panel (06/08/20 20:19) Creatine Kinase (06/08/20 20:19) Creatine Kinase Mb (06/08/20 20:19) Magnesium (06/08/20 20:19) Protime With Inr (06/08/20 20:19) Partial Thromboplastin Time (06/08/20 20:19) Myoglobin Serum (06/08/20 20:19) Troponin I (06/08/20 20:19) Acetaminophen Tablet (Tylenol Tablet) (06/08/20 21:00) Troponin I (06/08/20 22:55) Medications Given in ED Current Medications Medications Dose Ordered Sig/Mana Route Start Time Stop Time Status Last Admin Dose Admin Acetaminophen 1,000 mg ONCE ONCE PO 06/08/20 21:00 06/08/20 21:01 DC 06/08/20 21:06 1,000 MG Vital Signs/I&O Capillary Refill : Departure Impression Primary Impression: Anxiety Disposition: HOME, SELF-CARE Condition: Improved Departure-Patient Inst. Referrals: MAC HANDY MD (PCP/Family) Primary Care Physician Patient Instructions: Anxiety, Adult (DC) Add. Discharge Instructions: HOME, REST TAKE YOUR MEDICATIONS PRESCRIBED GET YOUR PRESCRIPTION FILLED FOR ANXIETY MEDICATION AND TAKE INSTRUCTED. FOLLOW UP WITH DR. HANDY THIS WEEK FOR FURTHER CARE--CALL IN AM TO MAKE FOLLOW UP APPOINTMENT All discharge instructions reviewed with patient and/or family. Voiced understanding. REGLA LAWRENCE DO Jun 08, 2020 22:11
[2020-06-09 01:20] VITALS: BP 167/101
== END 2020-06-09 01:20 | disposition home or self-care (01) ==
LOC: EDUNIT# 20:06 → ER 20:12
DX: F41.9 Anxiety disorder, unspecified (principal); J44.9 Chronic obstructive pulmonary disease, unspecified; I10 Essential (primary) hypertension; E78.00 Pure hypercholesterolemia, unspecified; F03.90 Unspecified dementia, unspecified severity, without behavioral disturbance, psychotic disturbance, mood disturbance, and anxiety; G43.909 Migraine, unspecified, not intractable, without status migrainosus; K21.9 Gastro-esophageal reflux disease without esophagitis; K59.09 Other constipation; K58.9 Irritable bowel syndrome, unspecified; M81.0 Age-related osteoporosis without current pathological fracture; M06.9 Rheumatoid arthritis, unspecified; E03.9 Hypothyroidism, unspecified; F31.9 Bipolar disorder, unspecified; Z87.891 Personal history of nicotine dependence; Z88.2 Allergy status to sulfonamides; Z90.710 Acquired absence of both cervix and uterus; Z90.89 Acquired absence of other organs; Z85.41 Personal history of malignant neoplasm of cervix uteri; Z79.890 Hormone replacement therapy
CPT/HCPCS: 36415; 80053; 82550; 82553; 83735; 83874; 83880; 84484; 85025; 85610; 85730; 93005; 93041

== ENCOUNTER → 2020-06-08 | Outpatient (CLI) | payer MEDICARE, MEDICAID ==
[2020-06-08 11:06] LABS: HEMOGLOBIN 11.5 G/DL (11.5-16.0); MEAN PLATELET VOLUME 9.9 FL (7.4-10.4); RED CELL DISTRIBUTION WIDTH 17.4 % (10.0-14.5); WHITE BLOOD COUNT 6.2 10^3/uL (4.3-11.0)
[2020-06-08 11:19] LABS: ALANINE AMINOTRANSFERASE 15 U/L (0-55); ALKALINE PHOSPHATASE 99 U/L (40-136); BILIRUBIN,TOTAL 0.6 MG/DL (0.1-1.0); BUN/CREATININE RATIO 14; CALCIUM 9.6 MG/DL (8.5-10.1); CARBON DIOXIDE 23 MMOL/L (21-32); CHLORIDE 104 MMOL/L (98-107); CREATININE SERUM 0.79 MG/DL (0.60-1.30); GFR ESTIMATED > 60; GLUCOSE 105 MG/DL (70-105); POTASSIUM 3.7 MMOL/L (3.6-5.0); SODIUM 141 MMOL/L (135-145)
[2020-06-08 11:20] LABS: ALBUMIN 4.1 GM/DL (3.2-4.5); TOTAL PROTEIN 6.6 GM/DL (6.4-8.2)
== END ==
LOC: LAB FS 10:35
PROVIDERS: ATTEND Family Medicine
DX: I25.119 Atherosclerotic heart disease of native coronary artery with unspecified angina pectoris (principal)
CPT/HCPCS: 36415; 80053; 84484; 85027

== ENCOUNTER 2020-06-11 02:15 | Emergency (ER) | payer MEDICARE, MEDICAID ==
--- OUTSIDE RECORDS SUMMARY | 2020-06-11 02:21 | XMS REPORT | Encounter Summary ---
Author Author [facility] Address Unknown Phone Unavailable Care Team Providers Care Vocational Teacher Name Role Phone PCP Unavailable Encounter Details Care Team Description Date Type Department Teja Telles MD [address] [facility] [address] [place] [address] [phone] 10/04/1998 [facility] Encounter [id number] [place] [address] Social History Date Tobacco Use Types Packs/Day [...] Routine 10/04/1998 MICROSCOPIC REVIEW, IF 2:14 PM RECREATION PROFESSOR INDICATED) URIC ACID Routine 10/04/1998 2:14 PM RECREATION PROFESSOR THYROID STIMULATING Routine 10/04/1998 HORMONE 2:14 PM RECREATION PROFESSOR ERYTHROCYTE SEDIMENTATION Routine 10/04/1998 RATE 2:14 PM RECREATION PROFESSOR CREATINE KINASE Routine 10/04/1998 2:14 PM RECREATION PROFESSOR COMPREHENSIVE METABOLIC Routine 10/04/1998 PANEL 2:14 PM RECREATION PROFESSOR COMPLETE BLOOD COUNT Routine 10/04/1998 2:14 PM RECREATION PROFESSOR RUBA QUALITATIVE Routine 10/04/1998 2:14 PM RECREATION PROFESSOR documented in this encounter Results * Comprehensive Metabolic Panel (10/04/1998 2:14 PM RECREATION PROFESSOR) Albumin 4.1 3.6 - 4.6 G/DL SUNQUEST [...] MEQ/L SUNQUEST Specimen Blood Performing Organization Address [facility] one Number [id number] [place] [phone] SUNQUEST * Complete Blood Count (10/04/1998 2:14 PM RECREATION PROFESSOR) WBC 7.0 4.0 - 11.0 TH/UL SUNQUEST [...] TH/UL SUNQUEST Specimen Blood Performing Organization Address [facility] one Number [id number] [phone] SUNQUEST * Urinalysis (10/04/1998 2:14 PM RECREATION PROFESSOR) Appearance, DK JUAN (A) SUNQUEST Urine Specific >=1.030 (A) <1.030 SUNQUEST Roe, UA PH Urine 6.0 5.0 - 8.0 SUNQUEST Hemoglobin NEGATIVE NEGATIVE SUNQUEST Urine Ketones Urine TRACE (A) NEGATIVE SUNQUEST Glucose Urine NEGATIVE NEGATIVE SUNQUEST Protein Urine TRACE (A) NEGATIVE SUNQUEST Qual Leukocyte NEGATIVE NEGATIVE SUNQUEST Esterase Urobilinogen NEGATIVE NEGATIVE SUNQUEST Urine Bilirubin Urine NEGATIVE NEGATIVE SUNQUEST Specimen Urine Performing Organization Address [facility] one Number [id number] [phone] SUNQUEST * RUBA Qualitative (10/04/1998 2:14 PM RECREATION PROFESSOR) RUBA Qualitative NEGATIVE NEGATIVE SUNQUEST Specimen Blood Performing Organization Address [facility] one Number [id number] [phone] SUNQUEST * Thyroid Stimulating Hormone (10/04/1998 2:14 PM RECREATION PROFESSOR) Thyroid 0.68 0.50 - 5.00 UIU/ML SUNQUEST Stimulating Hormone Specimen Blood Performing Organization Address [facility] one Number [id number] [place] [phone] SUNQUEST * Erythrocyte Sedimentation Rate (10/04/1998 2:14 PM RECREATION PROFESSOR) Sed Rate 14 0 - 20 MM/HR SUNQUEST Specimen Blood Performing Organization Address [facility] one Number [id number] [phone] SUNQUEST * Uric Acid (10/04/1998 2:14 PM RECREATION PROFESSOR) Uric Acid 3.2 2.5 - 7.8 MG/DL SUNQUEST Specimen Blood Performing Organization Address [facility] one Number [id number] [phone] SUNQUEST * Creatine Kinase (10/04/1998 2:14 PM RECREATION PROFESSOR) Creatine Kinase 68 30 - 225 IU/L SUNQUEST Specimen Blood Performing Organization Address [facility] one Number [id number] [place] [phone] SUNQUEST documented in this encounter Visit Diagnoses Not on filedocumented in this encounter
--- OUTSIDE RECORDS SUMMARY | 2020-06-11 02:21 | XMS REPORT | Continuity of Care Document ---
Author Author [facility] Organization [facility] Address Unknown Phone Unavailable Care Team Providers Care Emergency Specialist Name Role Phone [facility] Unavailable Unavailable Problems Problem Status Onset Date Classification Date Reported Comments Source RECTAL PROLAPSE Active 01/23/2020 [facility] CROHN'S DISEASE, UNSPECIFIED, WITHOUT CO Active 01/23/2020 [facility] HYPOKALEMIA Active 01/23/2020 [facility] ESSENTIAL (PRIMARY) HYPERTENSION Active 01/23/2020 [facility] CHRONIC OBSTRUCTIVE PULMONARY DISEASE, U Active 01/23/2020 [facility] FIBROMYALGIA Active 01/23/2020 [facility] DISORDER OF THYROID, UNSPECIFIED Active 01/23/2020 [facility] MIGRAINE, UNSPECIFIED, NOT INTRACTABLE, Active 01/23/2020 [facility] HORMONE REPLACEMENT THERAPY Ac tive 01/23/2020 [facility] OTHER ACCOUNTING REPRESENTATIVE (CURRENT) DRUG THERAPY Active 01/23/2020 [facility] PERSONAL HISTORY OF NICOTINE DEPENDENCE Active 01/23/2020 [facility] Rectal prolapse 01/21/2020 Discharge Diagnosis 01/24/2020 [facility] Rectocele 0 01/21/2020 Discharge Diagnosis 01/24/2020 [facility] [employer] Chronic obstructive lung disease (disorder) Active Problem 01/24/2020 [employer] Hypertensive disorder, systemic arterial (disorder) Active Problem 01/24/2020 [facility] Medications Medication Details Route Status Patient Instructions Ordering Provider Order Date Source Hair, Skin, & Nails Gummies 2 gummies, Chewed, Daily, 0 Refill(s), Indication: Vitamin Supplement Active 01/16/2020 [employer] Vitamin D3 2 gummies, Chewed, Daily, 0 Refill(s), Indication: Vitamin Supplement Active 01/16/2020 [employer] Albuterol 0.09 MG/ACTUAT Metered Dose Inhaler 1 Puff, 4 times a day, PRN Shortness of Breath or Wheezing, 0 Refill(s), Indication: Breathing Difficulty Active 01/16/2020 [facility] Potassium Chloride 20 mEq, BID (2 times a day), 0 Refill(s), Indication: Low Potassium Active 01/16/2020 [facility] Cymbalta 30 mg, PO, Daily, 0 R efill(s), Indication: Nerve Pain Active 01/16/2020 [facility] Metoprolol Succinate ER 25 mg oral table t, extended release 2 TAB, PO, Daily, 0 Refill(s), Indicatio n: High Blood Pressure Active 01/16/2020 [facility] pantoprazole 40 MG Enteric Coated Tablet [Protonix] 1 TAB, PO, Daily, 0 Refill(s), Indication: Reflux Active 01/16/2020 [facility] gabapentin 300 MG Oral Capsule 1 CAP, PO, BID (2 times a day), 0 Refill(s), Indication: Nerve Pain Active 01/16/2020 [facility] Synthroid 75 mcg, PO, Daily, 0 Refill(s), Indication: Thyroid Disorder Active 01/16/2020 [facility] ondansetron 4 mg oral tablet 1 TAB, PO, Q6H (Every 6 hours), PRN Nausea/Vomiting, 0 Refill(s), Indication: Nausea/Vomiting Active 01/16/2020 [facility] Sumatriptan 100 MG Oral Tablet [Imitrex] 0.5 TAB, PO, Daily, PRN as needed for migraine headache, 0 Refill(s), may take up to 200mg per day, Indication: Migraine Active 01/16/2020 [facility] tramadol hydrochloride 50 MG Oral Tablet 2 TAB, PO, Q6H (Every 6 hours), PRN as needed for pain, 0 Refill(s), Indication: Pain Active 01/16/2020 [facility] Alprazolam 0.25 MG Oral Tablet 1 TAB, PO, Daily, PRN as needed for anxiety, 0 Refill(s), MAY TAKE DOS, Indication: Anxiety Active 01/16/2020 [facility] Allergies, Adverse Reactions, Alerts Substance Category Reaction Severity Reaction type Status Date Reported Comments Source Sulfa drugs<sup>1</sup> Assert ion Drug aller gy Active vomiting/diarrhea [facility] Immunizations No Data Provided for This Section Results Order Name Results Value Reference Range Date Interpretation Comments Source CHEMISTRY CO2 25 mmol/L 22 - 29 01/23/2020 [facility] CHEMISTRY Glucose 105 mg/dL 70 - 100 01/23/2020 [facility] CHEMISTRY BUN 4 mg/dL 8 - 20 01/23/2020 [facility] CHEMISTRY Creatinine 0.7 mg/dL 0.7 - 1.2 01/23/2020 [facility] CHEMISTRY Calcium 9.1 mg/dL 8.6 - 10.2 01/23/2020 [facility] CHEMISTRY AGAP 12 mmol/L 3 - 16 01/23/2020 [facility] CHEMISTRY Sodium 144 mmol/L 136 - 145 01/23/2020 [facility] CHEMISTRY Potassium 4.2 mmol/L 3.5 - 5.1 01/23/2020 [facility] CHEMISTRY Chloride 107 mmol/L 98 - 107 01/23/2020 [facility] CHEMISTRY GFR (CKD-EPI) 85.6 m L/min/1.73 m2 [...] mL/min/1.73 m^2
Kidney Failure <15 mL/min/1.73 m^2 [facility] CHEMISTRY Est CrCL (CG) 50.8 m L/min 01/23/2020 Result Comment: Estimated Creatinine Gibran arance calculated based on Cockcroft-Gault formula using:

Height 158

Weight 56

Estimated Creatinine Clearance Cockcroft Gault is utilized by the Pharmacy to assist in determining medication dosage based on kidney function. Multiple factors determine normal ranges, please contact the Pharmacy with questions. [facility] HEMATOLOGY WBC 7.8 x 10'3/microL 4.0 - 11.0103 01/23/2020 [facility] HEMATOLOGY RBC 3.93 x10'6/microL 3.90 - 5.39667 01/23/2020 [facility] HEMATOLOGY Hgb 10.9 g/dL 12.0 - 16.0 01/23/2020 [facility] HEMATOLOGY Hct 35 % 35 - 47 01/23/2020 [facility] HEMATOLOGY MCV 90 fL 81 - 99 01/23/2020 [facility] HEMATOLOGY MCH 28 pg 27 - 34 01/23/2020 [facility] HEMATOLOGY MCHC 31 g/dL 30 - 36 01/23/2020 [facility] HEMATOLOGY RDW 15.1 % <=16.4 % 01/23/2020 [facility] HEMATOLOGY Platelet 205 x 10'3/microL 140 - [id number] 01/23/2020 [facility] HEMATOLOGY MPV 10.5 fL 8.3 - 12.4 01/23/2020 [facility] Est CrCl (CG) Est CrCL (CG) 50 .8 mL/min 01/23/2020 NA Estimated Creatinine Clearance calculate d based on Cockcroft- Gault formula using:
Height 158
Weight 56
Estimated Creatinine Clearance Cockcroft Gault is utilized by the Pharmacy to assist in determining medication dosage based on kidney function. Multiple factors determine normal ranges, please contact the Pharmacy with questions.
[facility] Renal Funct Index GFR (CKD-EPI) 85.6 mL/min/1.73 m2 >=60.0 01/23/2020 N GFR calculated based on CKD- EPI Creatinine Equation (2009).
Age(years) Average GFR
20-29 116 mL/min/1.73 m^2
30-39 107 mL/min/1.73 m^2
40-49 99 mL/min/1.73 m^2
50-59 93 mL/min/1.73 m^2
60-69 85 mL/min/1.73 m^2
70+ 75 mL/min/1.73 m^2

Acceptable GFR =>60 mL/min/1.73 m^2
Chronic Kidney Disease <60 mL/min/1.73 m^2
Kidney Failure <15 mL/min/1.73 m^2
[facility] BMP CO2 25 mmol/L 22 - 29 01/23/2020 N [facility] BMP AGAP 12 mmol/L 3 - 16 01/23/2020 N [facility] BMP Glucose 105 mg/dL 70 - 100 01/23/2020 H [facility] BMP BUN 4 mg/dL 8 - 20 01/23/2020 L [facility] BMP Creatinine 0.7 mg/dL 0.7 - 1.2 01/23/2020 N The presence of ketone bodies can cause artificially high results in serum, plasma and urine.
[facility] BMP Calcium 9.1 mg/dL 8.6 - 10.2 01/23/2020 N [facility] BMP Sodium 144 mmol/L 136 - 145 01/23/2020 N [facility] BMP Potassium 4.2 mmol/L 3.5 - 5.1 01/23/2020 N [facility] BMP Chloride 107 mmol/L 98 - 107 01/23/2020 N [facility] CBC WBC 7.8 x10'3/microL 4.0 - 11.0 01/23/2020 N [facility] CBC RBC 3.93 x10'6/microL 3.90 - 5.60 01/23/2020 N [facility] CBC Hgb 10.9 g/dL 12.0 - 16.0 01/23/2020 L [facility] CBC Hct 35 % 35 - 47 01/23/2020 N [facility] CBC MCV 90 fL 81 - 99 01/23/2020 N [facility] CBC MCH 28 pg 27 - 34 01/23/2020 N [facility] CBC MCHC 31 g/dL 30 - 36 01/23/2020 N [facility] CBC RDW 15.1 % - <=16.4 01/23/2020 N [facility] CBC Platelet 205 x10'3/microL 140 - 400 01/23/2020 N [facility] CBC MPV 10.5 fL 8.3 - 12.4 01/23/2020 N [facility] Renal Funct Index GFR (CKD-EPI) 71.7 mL/min/1.73 m2 >=60.0 01/22/2020 N GFR calculated based on CKD- EPI Creatinine Equation (2009).
Age(years) Average GFR
20-29 116 mL/min/1.73 m^2
30-39 107 mL/min/1.73 m^2
40-49 99 mL/min/1.73 m^2
50-59 93 mL/min/1.73 m^2
60-69 85 mL/min/1.73 m^2
70+ 75 mL/min/1.73 m^2

Acceptable GFR =>60 mL/min/1.73 m^2
Chronic Kidney Disease <60 mL/min/1.73 m^2
Kidney Failure <15 mL/min/1.73 m^2
[facility] Est CrCl (CG) Est CrCL (CG) 49 .5 mL/min 01/22/2020 NA Estimated Creatinine Clearance calculate d based on Cockcroft- Gault formula using:
Height 158
Weight 56
Estimated Creatinine Clearance Cockcroft Gault is utilized by the Pharmacy to assist in determining medication dosage based on kidney function. Multiple factors determine normal ranges, please contact the Pharmacy with questions.
[facility] BMP CO2 24 mmol/L 22 - 29 01/22/[address] [facility] BMP AGAP 11 mmol/L 3 - 16 01/22/2020 N [facility] BMP Glucose 110 mg/dL 70 - 100 01/22/2020 H [facility] BMP BUN 7 mg/dL 8 - 20 01/22/2020 L [facility] BMP Creatinine 0.8 mg/dL 0.7 - 1.2 01/22/2020 N The presence of ketone bodies can cause artificially high results in serum, plasma and urine.
[facility] BMP Calcium 8.3 mg/dL 8.6 - 10.2 01/22/2020 L [facility] BMP Sodium 142 mmol/L 136 - 145 01/22/2020 N [facility] BMP Potassium 4.2 mmol/L 3.5 - 5.1 01/22/2020 N [facility] BMP Chloride 107 mmol/L 98 - 107 01/22/2020 N [facility] CBC WBC 10.7 x10'3/microL 4.0 - 11.0 01/22/2020 N [facility] CBC RBC 3.67 x10'6/microL 3.90 - 5.60 01/22/2020 L [facility] CBC Hgb 10.4 g/dL 12.0 - 16.0 01/22/[address] [facility] CBC Hct 34 % 35 - 47 01/22/[address] [facility] CBC MCV 92 fL 81 - 99 01/22/2020 N [facility] CBC MCH 28 pg 27 - 34 01/22/2020 N [facility] CBC MCHC 31 g/dL 30 - 36 01/22/[address] [facility] CBC RDW 15.4 % - <=16.4 01/22/2020 N [facility] CBC Platelet 213 x10'3/microL 140 - 400 01/22/2020 N [facility] CBC MPV 10.3 fL 8.3 - 12.4 01/22/2020 N [facility] Magnesium Magnesium 1.9 mg/dL 1.6 - 2.6 01/21/2020 N Critical High for OB Patients >=7.0 mg/d l.
[facility] BLOOD BANK ABORh RR Interp O POS 01/21/2020 [facility] BLOOD BANK ABORh O POS,O POS 01/21/2020 [facility] BLOOD BANK ABSC Gel Interp Negat alyssa
(01/21/20 10:50 AM) 01/21/2020 [facility] CHEMISTRY Magnesium 1.9 mg/dL 1.6 - 2.6 01/21/2020 [facility] CHEMISTRY Total Protein 6.2 g/ dL 6.6 - 8.7 01/21/2020 [facility] CHEMISTRY Albumin Level 3.8 g/ dL 3.5 - 5.2 01/21/2020 [facility] CHEMISTRY Bili Total 0.6 mg/dL 0.0 - 1.2 01/21/2020 [facility] CHEMISTRY Alk Phos 102 [iU]/d 40 - 130. 01/21/2020 [facility] CHEMISTRY AST 17 Units/L 0 - 40 01/21/2020 [facility] CHEMISTRY ALT(SGPT) 14 [iU]/d 0 - 33. 01/21/2020 [facility] HEMATOLOGY PT 14.0 s 11.5 - 15.0 01/21/2020 [facility] HEMATOLOGY INR 1.1 01/21/2020 [facility] HEMATOLOGY Neutrophils % 60 % 44 - 76 01/21/2020 [facility] HEMATOLOGY Immature Granulocytes % 0 % 0 - 0 01/21/2020 [facility] HEMATOLOGY Lymphocytes % 27 % 13 - 43 01/21/2020 [facility] HEMATOLOGY Monocytes % 11 % 0 - 13 01/21/2020 [facility] HEMATOLOGY Eosinophils % 1 % 0 - 7 01/21/2020 [facility] HEMATOLOGY Basophils % 0 % 0 - 3 01/21/2020 [facility] HEMATOLOGY Neutrophils Abs 5.5 x 10'3/microL 1.4 - 7.2103 01/21/2020 [facility] HEMATOLOGY Immature Grans Abs 0.0 x 10'3/microL 0.0 - 0.0103 01/21/2020 [facility] HEMATOLOGY Lymphocytes Abs 2.5 x 10'3/microL 1.2 - 3.4103 01/21/2020 [facility] HEMATOLOGY Monocytes Abs 1.1 x 10'3/microL 0.1 - 0.6103 01/21/2020 [facility] HEMATOLOGY Eosinophils Abs 0.1 x 10'3/microL 0.0 - 0.5103 01/21/2020 [facility] HEMATOLOGY Basophils Abs 0.0 x 10'3/microL 0.0 - 0.2103 01/21/2020 [facility] ABORh Recheck w Reverse ABORh RR Int erp O POS 01/21/2020 NA [facility] ABSC 2 Cell Gel ABSC Gel Interp NEG 01/21/2020 N [facility] CMP Sodium 149 mmol/L 136 - 145 01/21/2020 H [facility] CMP Potassium 2.8 mmol/L 3.5 - 5.1 01/21/2020 CRIT [facility] CMP Chloride 104 mmol/L 98 - 107 01/21/2020 N [facility] CMP AGAP 17 mmol/L 3 - 16 01/21/2020 H [facility] Renal Funct Index GFR (CKD-EPI) 60.8 mL/min/1.73 m2 >=60.0 01/21/2020 N GFR calculated based on CKD- EPI Creatinine Equation (2009).
Age(years) Average GFR
20-29 116 mL/min/1.73 m^2
30-39 107 mL/min/1.73 m^2
40-49 99 mL/min/1.73 m^2
50-59 93 mL/min/1.73 m^2
60-69 85 mL/min/1.73 m^2
70+ 75 mL/min/1.73 m^2

Acceptable GFR =>60 mL/min/1.73 m^2
Chronic Kidney Disease <60 mL/min/1.73 m^2
Kidney Failure <15 mL/min/1.73 m^2
[facility] Est CrCl (CG) Est CrCL (CG) 43 .2 mL/min 01/21/2020 NA Estimated Creatinine Clearance calculate d based on Cockcroft- Gault formula using:
Height 158
Weight 56
Estimated Creatinine Clearance Cockcroft Gault is utilized by the Pharmacy to assist in determining medication dosage based on kidney function. Multiple factors determine normal ranges, please contact the Pharmacy with questions.
[facility] CMP CO2 28 mmol/L 22 - 29 01/21/2020 N [facility] CMP Glucose 87 mg/dL 70 - 100 01/21/2020 N [facility] CMP BUN 11 mg/dL 8 - 20 01/21/2020 N [facility] CMP Creatinine 0.9 mg/dL 0.7 - 1.2 01/21/2020 N The presence of ketone bodies can cause artificially high results in serum, plasma and urine.
[facility] CMP Calcium 9.0 mg/dL 8.6 - 10.2 01/21/2020 N [facility] CMP Total Protein 6.2 g/dL 6.6 - 8.7 01/21/2020 L [facility] CMP Albumin Level 3.8 g/dL 3.5 - 5.2 01/21/2020 N [facility] CMP Bili Total 0.6 mg/dL 0.0 - 1.2 01/21/2020 N Samples containing indocyanine green mus t not be measured.
No significant interference from immunoglobulins up to a concentration of 28 g/L (187 umol/L).
[facility] CMP Alk Phos 102 Inter. U nits/L 40 - 130 01/21/2020 N [facility] CMP AST 17 Units/L 0 - 40 01/21/2020 N [facility] CMP ALT(SGPT) 14 Inter. Un its/L 0 - 33 01/21/2020 N [facility] Protime PT 14.0 second 11.5 - 15.0 01/21/2020 N [facility] Protime INR 1.1 01/21/2020 NA [facility] Auto Diff Neutrophils 60 % 44 - 76 01/21/2020 N [facility] Auto Diff Lymphocytes % 27 % 13 - 43 01/21/2020 N [facility] Auto Diff Monocytes % 11 % 0 - 13 01/21/2020 N [facility] Auto Diff Eosinophils % 1 % 0 - 7 01/21/2020 [facility] Auto Diff Basophils % 0 % 0 - 3 01/21/2020 [facility] Auto Diff Immature Granulocytes % 0 % 0 - 0 01/21/2020 N [facility] Auto Diff Neutro Absolute 5.5 x1 0'3/microL 1.4 - 7.2 01/21/2020 N [facility] Auto Diff Lymph Absolute 2.5 x1 0'3/microL 1.2 - 3.4 01/21/2020 N [facility] Auto Diff [place] Absolute 1.1 x1 0'3/microL 0.1 - 0.6 01/21/2020 H [facility] Auto Diff Eos Absolute 0.1 x1 0'3/microL 0.0 - 0.5 01/21/2020 N [facility] Auto Diff Basophil Absolute 0.0 x1 0'3/microL 0.0 - 0.2 01/21/2020 N [facility] Auto Diff Immature Grans Abs 0.0 x1 0'3/microL 0.0 - 0.0 01/21/2020 N [facility] CBC/Diff WBC 9.3 x10'3/micro L 4.0 - 11.0 01/21/2020 N [facility] CBC/Diff RBC 4.20 x10'6/micr oL 3.90 - 5.60 01/21/2020 N [facility] CBC/Diff Hgb 11.7 g/dL 12.0 - 16.0 01/21/2020 L [facility] CBC/Diff Hct 38 % 35 - 47 01/21/2020 N [facility] CBC/Diff MCV 90 fL 81 - 99 01/21/2020 N [facility] CBC/Diff MCH 28 pg 27 - 34 01/21/2020 N [facility] CBC/Diff MCHC 31 g/dL 30 - 36 01/21/2020 N [facility] CBC/Diff RDW 15.5 % - <=16.4 01/21/2020 N [facility] CBC/Diff Platelet 300 x10 '3/microL 140 - 400 01/21/2020 N [facility] CBC/Diff MPV 10.0 fL 8.3 - 12.4 01/21/2020 N [facility] Pathology Reports No Data Provided for This [...] agreed to proceed. Surgeon Mati Sparks MD Hat Binder(s) Hemalatha Purdy/Ilene Camejo Findings 1) severely attenuated [...] mm robotic trocars and a 12 mm video library assistant trocar. All were placed after infiltration [...] A 7 x 20 cm piece of [employer] biologic mesh was then cut to size [...] needle counts were correct. [employer] biologic mesh Estimated Blood Loss 25 cc Patient Condition/Disposition Stable 01/21/[address] [facility] Discharge Summaries Results Value Date Source Discharge [...] Up Location: ISABEL ESCALANTE, MATI Delgadillo Address: [address] [place] [address], [place], [address] Follow up by: Follow up within: Details: [...] if needed as needed for pain 01/23/2020 [facility] History and Physicals No Data Provided for This Section Vital Signs Vital Sign Value Date Comments Source Heart Rate 80 bpm 01/23/2020 [facility] Respiratory Rate 17 br/min 01/23/2020 [employer] BP Location Arm, right ( 0 7:22 AM) 01/23/2020 [facility] Pulse Equipment SPO2 (01/23/20 7:22 AM) 01/23/2020 [facility] Temperature 98 [degF] 01/23/2020 [facility] Temp Method Oral (01/23/20 7:21 AM) 01/23/2020 [facility] Inet NIBP Systolic 149 mm[Hg] 01/23/2020 [employer] Inet NIBP Diastolic 86 mm[Hg] 01/23/2020 [employer] NIBP MAP 101 mm[Hg] 01/23/2020 [facility] NIBP MAP Calc 109 mm[Hg] 01/23/2020 [employer] Heart Rhythm Interpretation Si nus/atrial rhythm (01/21/20 3:40 PM) 01/21/2020 [facility] NIBP Method Automatic (01/21/20 3:40 PM) 01/21/2020 [facility] BP Cuff Size Large (01/21/20 3: 40 PM) 01/21/2020 [facility] NIBP Alarms set and on Yes ( 3:40 PM) 01/21/2020 [facility] Vital Signs Status/Type Pre Pr ocedure (01/21/20 11:00 AM) 01/21/2020 [facility] Defibrilator Vest Yes (01/21/20 11:00 AM) 01/21/2020 [facility] Encounters Location Location Details Encounter Type Encounter Number Reason For Visit Attending Provider ADM Date DC Date Status Source [id number] RECTAL PROLAPSE MATI SPARKS MD 01/21/2020 01/23/2020 Active [facility] Procedures No Data Provided for This Section Plan of Care No Data Provided for This Section Social History Social History Date Source Social History TypeResponse 01/23/2020 [facility] Assessment and Plan No Data Provided for This Section Family History No Data Provided for This Section Advance Directives No Data Provided for This Section Functional Status No Data Provided for This Section
--- OUTSIDE RECORDS SUMMARY | 2020-06-11 02:21 | XMS REPORT | Clinical Summary ---
Author Author [facility] Organization [facility] Address Unknown Phone Unavailable Care Team Providers Care Tire Mechanic Name Role Phone PCP Unavailable Allergies Not [...]
--- OUTSIDE RECORDS SUMMARY | 2020-06-11 02:22 | XMS REPORT | Clinical Summary ---
Author Author [facility] Organization [facility] Address Unknown Phone Unavailable Care Team Providers Care Public School Teacher Name Role Phone Reyes Gao MD Unavailable Reyes Gao MD PCP Source Comments Some departments are not documenting in the electronic medical record. If you d o not see the information that you expected, contact Release of Information in [facility] Information Management department at [phone] for further assistan ce in locating additional records.[facility] Allergies Comments Active Allergy Reactions [...] loss, bilateral Active calcitonin salmon Apply 1 [place] 0 (MIACALCIN) 200 to one unit/actuation nasal [...] Comments Vital Sign 190/102 10/31/2016 2:04 PM [employer] Blood Pressure 71 10/31/2016 2:04 PM [employer] Pulse - - Temperature - - Respiratory Rate - - Oxygen Saturation - - Inhaled Oxygen Concentration 75.3 kg (166 lb) 10/31/2016 2:04 PM [employer] Weight 162.6 cm (5' 4") 10/31/2016 2:04 PM [employer] Height 28.49 10/31/2016 2:04 PM [employer] Body Mass Index Plan of Treatment Health [...] 2010- STATE Present HEALTH Advance Directives Patient Visitor Information Assistant Explanation Type Date Recorded Advance 01/25/2016 7:16 AM Directive/DPOA
--- OUTSIDE RECORDS SUMMARY | 2020-06-11 02:29 | XMS REPORT | Continuity of Care Document ---
Demographics Preferred Language Unknown Marital Status Unknown Mormon Affiliation Unknown Race Unknown Ethnic Group Unknown Author Organization Unknown Address Unknown Phone Unavailable Allergies Active Description Code Type Severity Reaction Onset Reported/Identified Relationship to Patient Clinical Status Yes SULFAMETHOXAZOLE-TRIMETHOPRIM SULFAMETHOXAZOLE-TRI SEVERE Yes SULFAMETHOXAZOLE-TRIMETHOPRIM SEVERE DERMATOLOGICAL - NILS Yes SULFAMETHOXAZOLE-TRIMETHOPRIM SEVERE SEVERE Yes sulfa drug Drug Allergy 09/19/2011 Yes Sulfa (Sulfonamide Antibiotics) [id number] Drug Allergy Unknown N/A 019 Medications [...] SALINE W/KCL 40MEQ IV (SALINE IV BAG W/[id number]) MLS 01/13/2018 01/20/2018 CONTINUOUSEVERY 0 Hour LACTOBACILLUS BULGARIS TAB (LACTINEX BULGA RIS) tab 01/13/2018 01/23/2018 QID&0800,1200,1700,2200 METOPROLOL TAB 25 MG (LOPRESSOR) MG 01/13/2018 01/13/2018 ONCE&1215 NORMAL SALINE W/KCL 40MEQ IV (SALINE IV BAG W/[id number]) MLS 01/13/2018 01/20/2018 CONTINUOUSEVERY 0 Hour NORMAL SALINE W/KCL 40MEQ IV (SALINE IV BAG W/[id number]) MLS 01/14/2018 01/21/2018 CONTINUOUSEVERY 0 Hour MESALAMINE [...] P S CHIZO AFFECTIVE 07/28/2010 ESPITIA ROOSEVELT [facility] 295.70 P SCHIZO AFFECTIVE 07/28/2010 ESPITIA ROOSEVELT [facility] 295.70 P SCHIZO AFFECTIVE 07/28/2010 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 07/28/2010 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 07/28/2010 ANDER GRANT DO 295.70 P SCHIZO AFFECTIVE 07/28/2010 ESPITIA RADIAL DRILL PRESS OPERATOR, [facility] 295.70 P SCHIZO AFFECTIVE 07/28/2010 ESPITIA RADIAL DRILL PRESS OPERATOR, [facility] 295.70 P SCHIZO AFFECTIVE 07/28/2010 ESPITIA RADIAL DRILL PRESS OPERATOR, [facility] 295.70 P SCHIZO AFFECTIVE 07/28/2010 ESPITIA RADIAL DRILL PRESS OPERATOR, [facility] 295.70 P SCHIZO AFFECTIVE 07/28/2010 ESPITIA RADIAL DRILL PRESS OPERATOR, [facility] 295.70 P SCHIZO AFFECTIVE 07/28/2010 ESPITIA RADIAL DRILL PRESS OPERATOR, [facility] 295.70 P SCHIZO AFFECTIVE 07/28/2010 ESPITIA RADIAL DRILL PRESS OPERATOR, [facility] 295.70 P SCHIZO AFFECTIVE 07/28/2010 MICHELLE [...] 09/23/2010 Ot 414.01 COR ONARY ATHEROSCLEROSIS OF [place] CORON 09/23/2010 Ot 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 [...] 09/26/2010 Ot 414.01 COR ONARY ATHEROSCLEROSIS OF [place] CORON 09/26/2010 Ot 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 [...] V65.42 COUNSELING - SMOKING CESSATION 11/06/2011 ESPITIA RADIAL DRILL PRESS OPERATOR, SAMARA BANGURAH 465.9 UPPER RESPIRATORY INFECTION 11/06/2011 ESPITIA RADIAL DRILL PRESS OPERATOR, SAMARA BANGURAH V65.42 COUNSELING - SMOKING CESSATION 11/06/2011 MICHELLE COLEY M 465.9 UPPER RESPIRATORY INFECTION 11/06/2011 MICHELLE COLEY V65.42 COUNSELING - SMOKING CESSATION 11/10/2011 466.0 BRON CHITIS, ACUTE 11/10/2011 ESPITIA RADIAL DRILL PRESS OPERATOR, SAMARA KEVIN 466.0 BRONCHITIS, ACUTE 11/10/2011 ESPITIA RADIAL DRILL PRESS OPERATOR, SAMARA KEVIN 466.0 BRONCHITIS, ACUTE 11/10/2011 466.0 BRON CHITIS, ACUTE 11/10/2011 466.0 BRON CHITIS, ACUTE 11/10/2011 ANEDR GRANT DO 466.0 BRONCHITIS, ACUTE 11/10/2011 ESPITIA RADIAL DRILL PRESS OPERATOR, SAMARA KEVIN 466.0 BRONCHITIS, ACUTE 11/10/2011 ESPITIA RADIAL DRILL PRESS OPERATOR, SAMARA KEVIN 466.0 BRONCHITIS, ACUTE 11/10/2011 ESPITIA RADIAL DRILL PRESS OPERATOR, SAMARA KEVIN 466.0 BRONCHITIS, ACUTE 11/10/2011 ESPITIA RADIAL DRILL PRESS OPERATOR, SAMARA KEVIN 466.0 BRONCHITIS, ACUTE 11/10/2011 ESPITIA RADIAL DRILL PRESS OPERATOR, SAMARA KEVIN 466.0 BRONCHITIS, ACUTE 11/10/2011 ESPITIA RADIAL DRILL PRESS OPERATOR, SAMARA KEVIN 466.0 BRONCHITIS, ACUTE 11/10/2011 ESPITIA RADIAL DRILL PRESS OPERATOR, SAMARA KEVIN 466.0 BRONCHITIS, ACUTE 11/10/2011 MICHELLE COLEY M 466.0 BRONCHITIS, ACUTE 02/29/2012 Ot 300.00 ANX IETY STATE NOS 02/29/2012 Ot 714.0 RHEU MATOID ARTHRITIS 02/29/2012 Ot 729.5 PAIN IN LIMB 06/03/2013 NADER GRANT DO 894.0 WOUND OPEN LOWER LIMB 06/03/2013 ESPITIA RADIAL DRILL PRESS OPERATORSAMARA Aldrich KEVIN 894.0 WOUND OPEN LOWER LIMB 06/03/2013 ESPITIA RADIAL DRILL PRESS OPERATOR, SAMARA KEVIN 894.0 WOUND OPEN LOWER LIMB 06/03/2013 ESPITIA RADIAL DRILL PRESS OPERATOR, SAMARA KEVIN 894.0 WOUND OPEN LOWER LIMB 06/03/2013 ESPITIA RADIAL DRILL PRESS OPERATOR SAMARA KEVIN 894.0 WOUND OPEN LOWER LIMB 06/03/2013 ESPITIA RADIAL DRILL PRESS OPERATOR SAMARA KEVIN 894.0 WOUND OPEN LOWER LIMB 06/03/2013 ESPITIA RADIAL DRILL PRESS OPERATOR, SAMARA BROWN 894.0 WOUND OPEN LOWER LIMB 06/03/2013 ESPITIA RADIAL DRILL PRESS OPERATOR, SAMARA BROWN 894.0 WOUND OPEN LOWER LIMB 06/03/2013 MICHELLE COLEY 894.0 WOUND OPEN LOWER LIMB 09/15/2013 ESPITIA RADIAL DRILL PRESS OPERATOR, SAMARA BANGURAH 294.20 DEMENTIA UNSPECIFIED WITHOUT BEHAVIORAL DISTURBANCE 09/15/2013 ESPITIA RADIAL DRILL PRESS OPERATOR, SAMARA KEVIN 294.20 DEMENTIA UNSPECIFIED WITHOUT BEHAVIORAL DISTURBANCE 09/15/2013 ESPITIA RADIAL DRILL PRESS OPERATOR, SAMARA KEVIN 294.20 DEMENTIA UNSPECIFIED WITHOUT BEHAVIORAL DISTURBANCE 09/15/2013 ESPITIA RADIAL DRILL PRESS OPERATOR, SAMARA KEVIN 294.20 DEMENTIA UNSPECIFIED WITHOUT BEHAVIORAL DISTURBANCE 09/15/2013 ESPITIA RADIAL DRILL PRESS OPERATOR, SAMARA BANGURAH 294.20 DEMENTIA UNSPECIFIED WITHOUT BEHAVIORAL DISTURBANCE 09/15/2013 ESPITIA RADIAL DRILL PRESS OPERATOR, SAMARA BANGURAH 294.20 DEMENTIA UNSPECIFIED WITHOUT BEHAVIORAL DISTURBANCE 09/15/2013 ESPITIA RADIAL DRILL PRESS OPERATOR, SAMARA BROWN 294.20 DEMENTIA UNSPECIFIED WITHOUT BEHAVIORAL DISTURBANCE 09/15/2013 RONALDMICHELLE ORTIZ M 294.20 DEMENTIA UNSPECIFIED WITHOUT BEHAVIORAL DISTURBANCE 09/30/2014 RONALD SPORTS PHYSIOTHERAPIST, MIHCELLE M 300.00 AN ANXIETY UNSPEC 09/30/2014 RONALD [...] 357.9 01/17/2018 Benoit, Lorena W 401.0 01/17/2018 [facility] [place] W 558.9 OTHER AND UNSPECIFIED NONINFECTIOUS GASTROENTERITIS AND COLITIS 01/17/2018 [facility], [place] W 714.0 01/17/2018 [facility], [place] W 719.45 01/17/2018 [facility], [place] W 787.91 DIARRHEA 01/17/2018 [facility], [place] W 791.9 01/17/2018 [facility], [place] W A49.3 MYCOPLASMA INFECTION, UNSPECIFIED SITE 01/17/2018 [facility], [place] W B96.0 01/17/2018 [facility], [place] W E03.9 HYPOTHYROIDISM, UNSPECIFIED 01/17/2018 [facility], [place] W E78.5 01/17/2018 [facility], [place] A E86.0 DEHYDRATION 01/17/2018 [facility], [place] W E87.6 HYPOKALEMIA 01/17/2018 [facility], [place] W F32.9 01/17/2018 [facility], [place] W G62.9 POLYNEUROPATHY, UNSPECIFIED 01/17/2018 [facility], [place] W I10 01/17/2018 [facility], [place] W K52.9 NONINFECTIVE GASTROENTERITIS AND COLITIS, UNSPECIFIED 01/17/2018 [facility], [place] W M06.9 01/17/2018 [facility], [place] W M25.551 PAIN IN RIGHT HIP 01/17/2018 [facility], [place] W R19.7 DIARRHEA, UNSPECIFIED 01/17/2018 [facility], [place] W R82.99 OTHER ABNORMAL FINDINGS [...] REFLUX DISEASE WITHOUT 08/29/2018 GREG ESCALANTE, KIRSTIN Villead Ot L03.115 CELLULITIS OF RIGHT LOWER LIMB [...] OTHER SPECIFIED POSTPROCEDURAL STATES 01/23/2019 Ot 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, U 01/23/2019 Ot K44.9 DIAP HRAGMATIC HERNIA WITHOUT OBSTRUCTION 01/23/2019 Ot Z87.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 RSONAL HISTORY OF NICOTINE DEPENDENCE 01/30/2019 Ot 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, U 01/30/2019 Ot [...] Z87.01 PERSONAL HISTORY OF PNEUMONIA (RECURRENT 03/05/2019 [place] Ot Z87.19 PERSONAL HISTORY OF OTHER DISEASES OF 03/05/2019 MELINDA [place] Ot Z87.891 PERSONAL HISTORY OF NICOTINE DEPENDENCE 03/05/2019 [facility] Z88.2 ALLERGY STATUS TO SULFONAMIDES STATUS 03/05/2019 [facility] Ot Z90.49 ACQUIRED ABSENCE OF OTHER SPECIFIED PART 03/05/2019 MELINDA [place] Ot Z90.710 ACQUIRED ABSENCE OF BOTH CERVIX AND UTER 03/05/2019 [facility] Ot Z90.89 ACQUIRED ABSENCE OF OTHER ORGANS 03/05/2019 [facility] Ot Z98.890 OTHER SPECIFIED POSTPROCEDURAL STATES 03/07/2019 MELINDA [place]ORE[place] Ot E03.9 HYPOTHYROIDISM, UNSPECIFIED 03/07/2019 MELINDA DOTRISTINA K Ot I10 ESSENTIAL (PRIMARY) HYPERTENSION 03/07/2019 [place] LEDEZMA Ot K21.9 GASTRO-ESOPHAGEAL REFLUX DISEASE WITHOUT 03/07/2019 [facility] Miriam Ot K29.70 GASTRITIS, UNSPECIFIED, WITHOUT BLEEDING 03/07/2019 [facility] Miriam Ot K44.9 DIAPHRAGMATIC HERNIA WITHOUT OBSTRUCTION 03/07/2019 [facility] Ot M06.9 RHEUMATOID ARTHRITIS, UNSPECIFIED 03/07/2019 [facility] Miriam Ot M81.0 AGE- RELATED OSTEOPOROSIS W/O [...] OTHER INTERVERTEBRAL DISC DEGENERATION, 05/10/2019 Ot 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, U 05/10/2019 Ot [...] AGE- RELATED OSTEOPOROSIS W/O CURRENT PAT 05/11/2019 LORE[place] LAWRENCE DO Ot R51 HEADACHE 05/11/2019 MELINDA [...] Ot K44.9 DIAPHRAGMATIC HERNIA WITHOUT OBSTRUCTION 05/28/2019 [place] LEDEZMA Ot K58.9 IRRITABLE BOWEL SYNDROME WITHOUT DIARRHE 05/28/2019 [place] LEDEZMA Ot K59.00 CONSTIPATION, UNSPECIFIED 05/28/2019 [place] LEDEZMA Ot M06.9 RHEUMATOID ARTHRITIS, UNSPECIFIED 05/28/2019 [place] LEDEZMA Ot M79.7 FIBROMYALGIA 05/28/2019 [place] LEDEZMA Ot M81.0 AGE- RELATED OSTEOPOROSIS W/O CURRENT PAT 05/28/2019 [place] LEDEZMA Ot R10.9 UNSPECIFIED ABDOMINAL PAIN 05/28/2019 [place] LEDEZMA Ot Z87.01 PERSONAL HISTORY OF PNEUMONIA (RECURRENT 05/28/2019 [place]DA [place] Pineda Ot Z87.19 PERSONAL HISTORY OF OTHER DISEASES OF TH 05/28/2019 [place] Pineda Ot Z87.891 PERSONAL HISTORY OF NICOTINE DEPENDENCE 05/28/2019 [facility] [place] Pineda Ot Z88.2 ALLERGY STATUS TO SULFONAMIDES STATUS 05/28/2019 [place] Pineda Ot Z90.710 ACQUIRED ABSENCE OF [...] Z90.89 ACQUIRED ABSENCE OF OTHER ORGANS 06/21/2019 UYRI SEYMOUR MD Ot K52.839 MICROSCOPIC COLITIS, UNSPECIFIED 06/21/2019 RENU CHRISTENSEN MD Ot M25.5 51 PAIN IN RIGHT HIP 06/21/2019 RENU CHRISTENSEN MD Ot 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, LUMBAR REGIO 06/21/2019 RENU CHRISTENSEN MD Ot 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, 06/21/2019 Ot 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, U 06/21/2019 Ot [...] OTHER INTERVERTEBRAL DISC DEGENERATION, 06/23/2019 Ot 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, U 06/23/2019 Ot [...] OTHER INTERVERTEBRAL DISC DEGENERATION, 09/17/2019 Ot 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, U 09/17/2019 Ot [...] OTHER INTERVERTEBRAL DISC DEGENERATION, 10/22/2019 Ot 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, U 10/22/2019 Ot [...] OTHER INTERVERTEBRAL DISC DEGENERATION, 10/22/2019 Ot 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 52 FINAL FINISHER (CURRENT) USE OF SYSTEMIC STER 12/24/2019 KIRSTIN [...] .9 CHRONIC OBSTRUCTIVE PULMONARY DISEASE, U 12/25/2019 DENONA MOBLEY APRN Ot L53 .9 ERYTHEMATOUS CONDITION, [...] F41. 9 ANXIETY DISORDER, UNSPECIFIED 12/28/2019 GREG SECALANTE, KIRSTIN Villeda Ot G62. 9 POLYNEUROPATHY, UNSPECIFIED [...] GREG ESCALANTE, KIRSTIN Villeda Ot Z79. 52 [facility] (CURRENT) USE OF SYSTEMIC STER 12/28/2019 KIRSTIN [...] .9 ERYTHEMATOUS CONDITION, UNSPECIFIED 12/29/2019 DEONNA MOBLEY RADIAL DRILL PRESS OPERATOR Ot Z87.891 PERSONAL HISTORY OF NICOTINE DEPENDENCE 12/29/2019 DEONNA MOBLEY RADIAL DRILL PRESS OPERATOR Ot Z88 .2 ALLERGY STATUS TO SULFONAMIDES STATUS 01/06/2020 DEONNA MOBLEY APRN Ot E03 .9 HYPOTHYROIDISM, UNSPECIFIED 01/06/2020 DEONNA MOBLEY APRN Ot E78.00 PURE HYPERCHOLESTEROLEMIA, UNSPECIFIED 01/06/2020 MOBLEY, DEONNA Villeda APRN Ot F31 .9 BIPOLAR DISORDER, UNSPECIFIED 01/06/2020 MOBLEY, DEONNA Villeda APRN Ot F41 .9 ANXIETY DISORDER, UNSPECIFIED 01/06/2020 DEONNA MOBLEY RADIAL DRILL PRESS OPERATOR Ot I10 ESSENTIAL (PRIMARY) HYPERTENSION 01/06/2020 ITZ, DEONNA Villeda APRN Ot J44 .9 CHRONIC OBSTRUCTIVE PULMONARY DISEASE, U 01/06/2020 DEONNA MOBLEY APRN Ot K62.89 OTHER SPECIFIED DISEASES OF ANUS AND REC 01/06/2020 DEONNA MOBLEY APRN Ot Z79.52 [facility] (CURRENT) USE OF SYSTEMIC STER 01/06/2020 DEONNA MOBLEY RADIAL DRILL PRESS OPERATOR Ot Z85.41 PERSONAL HISTORY OF MALIGNANT NEOPLASM O 01/06/2020 DEONNA MOBLEY RADIAL DRILL PRESS OPERATOR Ot Z87.891 PERSONAL HISTORY OF NICOTINE DEPENDENCE 01/06/2020 ITZ, DEONNA Villeda RADIAL DRILL PRESS OPERATOR Ot Z88 .2 ALLERGY STATUS TO SULFONAMIDES STATUS 01/07/2020 EDILSON, BLU SPECIAL DELIVERY WORKER Ot E03.9 HYPOTHYROIDISM, UNSPECIFIED 01/07/2020 EDILSON, BLU SPECIAL DELIVERY WORKER Ot E78.00 PURE HYPERCHOLESTEROLEMIA, UNSPECIFIED 01/07/2020 EDILSON, BLU SPECIAL DELIVERY WORKER Ot F31.9 BIPOLAR DISORDER, UNSPECIFIED 01/07/2020 EDILSON, BLU SPECIAL DELIVERY WORKER Ot F41.9 ANXIETY DISORDER, UNSPECIFIED 01/07/2020 EDILSON, BLU SPECIAL DELIVERY WORKER Ot I10 ESSENTIAL (PRIMARY) HYPERTENSION 01/07/2020 EDILSON, BLU SPECIAL DELIVERY WORKER Ot J44.9 CHRONIC OBSTRUCTIVE PULMONARY DISEASE, U 01/07/2020 EDILSON, BLU SPECIAL DELIVERY WORKER Ot M06.9 RHEUMATOID ARTHRITIS, UNSPECIFIED 01/07/2020 EDILSON, BLU SPECIAL DELIVERY WORKER Ot M79.89 OTHER SPECIFIED SOFT TISSUE DISORDERS 01/07/2020 EDILSON, BLU SPECIAL DELIVERY WORKER Ot Z79.52 [facility] (CURRENT) USE OF SYSTEMIC STER 01/07/2020 EDILSON, BLU SPECIAL DELIVERY WORKER Ot Z85.41 PERSONAL HISTORY OF MALIGNANT NEOPLASM [...] Ot M54.5 LOW BACK PAIN 01/11/2020 STEPH DALIY Ot R40.2142 COMA SCALE, EYES OPEN, SPONTANEOUS, EMR 01/11/2020 STEPH DAILY Ot R40.2252 COMA SCALE, BEST VERBAL RESPONSE, ORIENT 01/11/2020 STEPH DAILY Ot R40.2362 COMA SCALE, BEST MOTOR RESPONSE, OBEYS C 01/11/2020 STEPH DAILY Ot S09.90XA UNSPECIFIED INJURY OF HEAD, INITIAL ENCO 01/11/2020 STEPH DAILY Ot W18.39XA OTHER FALL ON SAME LEVEL, INITIAL ENCOUN 01/11/2020 STEPH DAILY Ot Y92.[address] IN [facility] (PRIVATE 01/11/2020 STEPH DAILY Ot Z85.41 [...] STEPH DAILY Ot Y92.[address] IN [facility] NON-[facility] (PRIVATE 01/16/2020 STEPH DAILY Ot Z85.41 [...] STEPH DAILY Ot Y92.[address] IN [facility] NON-[facility] (PRIVATE 01/23/2020 STEPH DAILY Ot [...] INITIAL ENCOUN 01/23/2020 STEPH DAILY Ot Y92.[address] [facility] [address] IN [facility] NON[facility] (PRIVATE 01/23/2020 STEPH DAILY Ot Z85.41 PERSONAL HISTORY OF MALIGNANT NEOPLASM O 01/23/2020 STEPH DAILY Ot Z87.891 PERSONAL HISTORY OF NICOTINE DEPENDENCE 01/23/2020 STEPH DAILY Ot Z88.2 ALLERGY STATUS TO SULFONAMIDES STATUS 01/24/2020 BLU WAGGONERP Ot E03.9 HYPOTHYROIDISM, UNSPECIFIED 01/24/2020 EDILSONBLU CordovaP Ot E78.00 PURE HYPERCHOLESTEROLEMIA, UNSPECIFIED 01/24/2020 EDILSON, BLU SPECIAL DELIVERY WORKER Ot F31.9 BIPOLAR DISORDER, UNSPECIFIED 01/24/2020 EDILSON, BLU SPECIAL DELIVERY WORKER Ot F41.9 ANXIETY DISORDER, UNSPECIFIED 01/24/2020 BLU WAGGONERP Ot I10 ESSENTIAL (PRIMARY) HYPERTENSION 01/24/2020 BLU WAGGONERP Ot J44.9 CHRONIC OBSTRUCTIVE PULMONARY DISEASE, U 01/24/2020 EDILSON BLU SPECIAL DELIVERY WORKER Ot M06.9 RHEUMATOID ARTHRITIS, UNSPECIFIED 01/24/2020 EDILSON, BLU SPECIAL DELIVERY WORKER Ot M79.89 OTHER SPECIFIED SOFT TISSUE DISORDERS 01/24/2020 EDILSON, BLU SPECIAL DELIVERY WORKER Ot Z79.52 [facility] (CURRENT) USE OF SYSTEMIC STER 01/24/2020 EDILSON, [...] KIRSTIN GARZA MD Ot Y92.002 BATHRM OF [facility] NON-INSTITUT RESDNCE SNGL 06/01/2020 KIRSTIN GARZA MD Ot Z79. 52 FINAL FINISHER (CURRENT) USE OF SYSTEMIC STER 06/01/2020 KIRSTIN GARZA MD, Ot Z79.890 HORMONE REPLACEMENT THERAPY 06/01/2020 KIRSTIN GARZA MD Ot Z79.891 [facility] (CURRENT) USE OF OPIATE ANALGE 06/01/2020 KIRSTIN GARZA MD Ot Z85. 41 PERSONAL HISTORY OF MALIGNANT NEOPLASM O 06/01/2020 KIRSTIN GARZA MD Ot Z87.891 PERSONAL HISTORY OF NICOTINE DEPENDENCE 06/01/2020 KIRSTIN GARZA MD Ot Z88. 2 ALLERGY STATUS TO SULFONAMIDES STATUS 06/04/2020 KIRSTIN GARZA MD Ot E03. 9 HYPOTHYROIDISM, UNSPECIFIED 06/04/2020 KIRSTIN GARZA MD Ot F31. 9 BIPOLAR DISORDER, UNSPECIFIED 06/04/2020 IKRSTIN GARZA MD Ot F41. 9 ANXIETY DISORDER, [...] KIRSTIN GARZA MD Ot Y92.002 [facility]HR[facility] OF [facility] NON-INSTITUT RESDNCE SNGL 06/04/2020 KIRSTIN GARZA MD Ot Z79. 52 [facility] (CURRENT) USE OF SYSTEMIC STER 06/04/2020 KIRSTIN GARZA MD Ot Z79.890 HORMONE REPLACEMENT THERAPY 06/04/2020 KIRSTIN GARZA MD, Ot Z79.891 [facility] (CURRENT) USE OF OPIATE ANALGE 06/04/2020 KIRSTIN [...] DO, EZIO L Ot Z79.8 99 OTHER FINAL FINISHER (CURRENT) DRUG THERAPY 06/08/2020 HOUSER DO, ZEIO L Ot Z85.4 1 PERSONAL HISTORY OF MALIGNANT NEOPLASM O 06/08/2020 HOUSER DO, EZIO L Ot Z87.8 91 PERSONAL HISTORY OF NICOTINE DEPENDENCE 06/08/2020 HOUSER DO, EZIO L Ot Z88.2 ALLERGY STATUS TO SULFONAMIDES STATUS Procedures Code Description Performed By Jarad pedroza On 48.63 ANTE RIOR RECT RESECT NEC 09/19/2010 53.43 OTHE R LAPAROSCOPIC UMBILICAL HERNIORRHAP 09/19/2010 96505 PSYC H IND W/MED CK 20 11/13/2011 80826 PSYC H IND W/MED CK 20 11/18/2012 09655 PSYC H IND W/MED CK 20 01/24/2013 Results Test Result Range Hemoglobin A1C - 01/12/17 14:47 % A1C 5.50 % 5.40-6.60 AvGlu 117 mg/dL 70-110 Urinalysis - 01/12/17 15:51 Icotest Positive Negative Urine Volume Urine Volume Sufficient (10mL) Urine-Appearance Cloudy Clear Urine-Bacteria 2+ Urine-Bilirubin 2+ Negative Urine-Blood Trace-lysed Negative Urine-Color Yellow Colorless-[place] ow Urine-Epithelial Cells 5-10/HPF Urine-Glucose Negative Negative Urine-Ketones 4+ Negative Urine-Leukocytes Trace Negative Urine-Mucus 1+ Urine-Nitrite Negative Negative Urine-Other Urine Saved if Culture Need ed (48hrs from time of collection) Urine-pH 5.5 5-8.5 Urine-Protein 2+ Negative Urine-Specific [place] >=1.030 1.000-1 .030 Urine-WBC 2-5/HPF Urobilinogen 0.2 [...] 1.4 mg/dL 0.2-1.2 TP 6.2 g/dL 6.0-8.3 [facility] - 07/23/17 12:20 Anion Gap 21 6-14 BUN 15 mg/dL 5-25 Calcium 10.0 mg/dL 8.3-10.4 Chloride 99 mmol/L 95-114 CO2 30 mEq/L 22-33 Creat 1.02 mg/dL 0.50-1.50 eGFR 54 mL/min/1.73m2 >59 Glucose 117 mg/dL 70-110 Osmo 305 280-295 Potassium 3.2 mmol/L 3.5-5.3 Sodium 147 mmol/L 134-148 Sed Rate - 07/23/17 12:20 Sed Rate 2 mm/hr 9-15 [facility] - 07/24/17 07:17 Anion Gap 14 [...] Negative Urine-Blood Trace-intact Negative Urine-Color Yellow Colorless-[place] ow Urine-Epithelial Cells 5-10/HPF Urine-Glucose Negative Negative Urine-Ketones Trace Negative Urine-Leukocytes Negative Negative Urine-Mucus 3+ Urine-Nitrite Negative Negative Urine-Other Culture to follow Urine-pH 6.0 5-8.5 Urine-Protein Negative Negative Urine-RBC Rare/HPF Urine-Specific [place] 1.020 1.000-1 .030 Urine-WBC 2-5/HPF Urobilinogen 1.0 [...] Negative Urine-Blood Negative Negative Urine-Color Yellow Colorless-[place] ow Urine-Epithelial Cells 10-20/HPF Urine-Glucose Negative Negative Urine-Ketones 4+ Negative Urine-Leukocytes Negative Negative Urine-Mucus 1+ Urine-Nitrite Negative Negative Urine-Other Urine Saved if Culture Need ed (48hrs from time of collection) Urine-pH 5.5 5-8.5 Urine-Protein Trace Negative Urine-RBC Rare/HPF Urine-Specific [place] >=1.030 1.000-1 .030 Urine-WBC Rare/HPF Urobilinogen 0.2 [...] Negative Urine-Blood Negative Negative Urine-Color Yellow Colorless-[place] ow Urine-Epithelial Cells 0-5/HPF Urine-Glucose Negative Negative Urine-Ketones 4+ Negative Urine-Leukocytes Negative Negative Urine-Mucus 3+ Urine-Nitrite Negative Negative Urine-Other Culture to follow Urine-pH 6.0 5-8.5 Urine-Protein 2+ Negative Urine-RBC 0-2/HPF Urine-Specific [place] >=1.030 1.000-1 .030 Urine-WBC 2-5/HPF Urobilinogen 1.0 [...] 1.2 mg/dL 0.2-1.2 TP 5.0 g/dL 6.0-8.3 [facility] - 01/14/18 06:55 Anion Gap 13 6-14 BUN 6 mg/dL 5-25 Calcium 8.2 mg/dL 8.3-10.4 Chloride 115 mmol/L 95-114 CO2 19 mEq/L 22-33 Creat 0.76 mg/dL 0.50-1.50 eGFR 75 mL/min/1.73m2 >59 Glucose 97 mg/dL 70-110 Osmo 293 280-295 Potassium 3.6 mmol/L 3.5-5.3 Sodium 143 mmol/L 134-148 [facility] - 01/15/18 07:00 Anion Gap 15 6-14 BUN 3 mg/dL 5-25 Calcium 9.2 mg/dL 8.3-10.4 Chloride 115 mmol/L 95-114 CO2 21 mEq/L 22-33 Creat 0.73 mg/dL 0.50-1.50 eGFR 79 mL/min/1.73m2 >59 Glucose 95 mg/dL 70-110 [place] 298 280-295 Potassium 4.5 mmol/L 3.5-5.3 Sodium 146 mmol/L 134-148 [facility] 01/17/18 08:51 Anion Gap 16 6-14 BUN 4 mg/dL 5-25 Calcium 9.2 mg/dL 8.3-10.4 Chloride 105 mmol/L 95-114 CO2 26 mEq/L 22-33 Creat 0.78 mg/dL 0.50-1.50 eGFR 73 mL/min/1.73m2 >59 Glucose 102 mg/dL 70-110 [place] 292 280-295 Potassium 3.5 mmol/L 3.5-5.3 Sodium 143 mmol/L 134-148 [facility] - 02/03/18 01:20 Anion Gap 13 [...] Negative EKG - 02/03/18 02:20 EKG Complete [facility] - 02/03/18 06:35 Anion Gap 15 6-14 BUN 9 mg/dL 5-25 Calcium 8.9 mg/dL 8.3-10.4 Chloride 112 mmol/L 95-114 CO2 21 mEq/L 22-33 Creat 0.83 mg/dL 0.50-1.50 eGFR 68 mL/min/1.73m2 >59 Glucose 78 mg/dL 70-110 [place] 295 280-295 Potassium 3.9 mmol/L 3.5-5.3 Sodium 144 mmol/L 134-148 [facility] 02/03/18 17:50 Hct 34.7 % 36.0-46.0 Hgb 11.2 g/dL 13.0-15.0 CBC with Auto Diff - 02/04/18 07:00 Baso% 0.00 % 0.00-2.50 Eos 0.0 K/uL 0.0-0.7 Eos% 0.9 % 0.0-7.0 Hct 35.1 % 36.0-46.0 Hgb 11.4 g/dL 13.0-15.0 Lym 1.18 K/uL 0.60-3.40 Lym% 35.6 % 10.0-50.0 MCH 30.6 pg 27.0-31.0 MCHC 32.5 g/dL 32.0-36.0 MCV 94.4 fL 80.0-97.0 [place]% 10.0 % 0.0-12.0 MPV 10.0 fL 7.4-10.0 Deanna% 53.5 % 37.0-80.0 Plt 175 K/uL 150-400 RBC 3.72 M/uL 3.60-5.00 RDW 14.0 % 11.6-14.8 WBC 3.31 K/uL 5.00-10.00 Deanna 1.77 K/uL 2.00-6.90 [place] 0.3 K/uL 0.0-0.9 Baso 0.0 K/uL 0.0-0.2 [facility] - 02/11/18 09:35 Surg Path Sent to [facility] Comprehensive Metabolic Panel - 02/12/18 05:21 [...] Negative Urine-Blood Negative Negative Urine-Color Yellow Colorless-[place] ow Urine-Epithelial Cells 0-5/HPF Urine-Glucose Negative Negative Urine-Ketones Negative Negative Urine-Leukocytes Negative Negative Urine-Nitrite Negative Negative Urine-Other Urine Saved if Culture Need ed (48hrs from time of collection) Urine-pH 5.5 5-8.5 Urine-Protein Negative Negative Urine-RBC 0-2/HPF Urine-Specific [place] <=1.005 1.000-1 .030 Urine-WBC Negative Urobilinogen 0.2 E.U./dL 0.2-1.0 CBC with Auto Diff - 02/22/18 11:00 Baso% 0.20 % 0.00-2.50 Eos 0.1 K/uL 0.0-0.7 Eos% 1.1 % 0.0-7.0 Hct 34.6 % 36.0-46.0 Hgb 11.1 g/dL 13.0-15.0 Lym 1.70 K/uL 0.60-3.40 Lym% 36.3 % 10.0-50.0 MCH 29.9 pg 27.0-31.0 MCHC 32.1 g/dL 32.0-36.0 MCV 93.3 fL 80.0-97.0 [place]% 15.2 % 0.0-12.0 MPV 11.0 fL 7.4-10.0 Deanna% 47.2 % 37.0-80.0 Plt 252 K/uL 150-400 RBC 3.71 M/uL 3.60-5.00 RDW 13.5 % 11.6-14.8 WBC 4.68 K/uL 5.00-10.00 Deanna 2.21 K/uL 2.00-6.90 [place] 0.7 K/uL 0.0-0.9 Baso 0.0 K/uL 0.0-0.2 [...] 7-25 CREATININE 0.80 mg/dL 0.60-0.93 eGFR NON-AFR. FIJIAN 74 mL/min/1.73m2 > OR = 60 eGFR [...] 7-25 CREATININE 0.93 mg/dL 0.60-0.93 eGFR NON-AFR. FIJIAN 62 mL/min/1.73m2 > OR = 60 eGFR [...] 31.4 g/dL 32.0-36.0 MCV 91.2 fL 80.0-97.0 [place]% 9.4 % 0.0-12.0 MPV 11.4 fL 7.4-10.0 Deanna% 71.5 % 37.0-80.0 Plt 250 K/uL 150-400 RBC 4.44 M/uL 3.60-5.00 RDW 15.1 % 11.6-14.8 WBC 9.70 K/uL 5.00-10.00 Deanna 6.93 K/uL 2.00-6.90 [place] 0.9 K/uL 0.0-0.9 Baso 0.0 K/uL 0.0-0.2 Urinalysis - 05/10/19 02:50 Icotest N/A Negative Urine Volume Urine Volume Sufficient (10mL) Urine-Appearance Clear Clear Urine-Bacteria Negative Urine-Bilirubin Negative Negative Urine-Blood Negative Negative Urine-Color Yellow Colorless-[place] ow Urine-Epithelial Cells 0-5/HPF Urine-Glucose Negative Negative Urine-Ketones Negative Negative Urine-Leukocytes Negative Negative Urine-Nitrite Negative Negative Urine-Other Urine Saved if Culture Need ed (48hrs from time of collection) Urine-pH 7.0 5-8.5 Urine-Protein Negative Negative Urine-RBC Rare/HPF Urine-Specific [place] 1.010 1.000-1 .030 Urine-WBC Rare/HPF Urobilinogen 0.2 0.2-1.0 [facility] - 05/10/19 03:10 Anion Gap 15 6-14 BUN 13 mg/dL 5-25 Calcium 9.8 mg/dL 8.3-10.4 Chloride 107 mmol/L 95-114 CO2 27 mEq/L 22-33 Creat 1.33 mg/dL 0.50-1.50 eGFR 39 mL/min/1.73m2 >59 Glucose 91 mg/dL 70-110 Osmo 299 280-295 Potassium 4.3 mmol/L 3.5-5.3 Sodium 145 mmol/L 134-148 [facility] - 05/10/19 10:16 Anion Gap 18 [...] blocking antibody assay - 05/10/19 19:44 ACETYLCHOLINE HEAD TELLER BINDING AB 0.0 % 0.0-0.4 Complete urinalysis [...] pa nadeen - 05/23/19 23:10 WRISTBAND NUMBER [id number] NRG ABO+Rh group OP NRG Blood group [...] protein measurement (mass/v olume) 2.27 mg/dL 0.00-0.50 [id number] - 06/14/19 13:05 [id number] 14.9 ug/mL 50.0-100.0 Complete urinalysis with reflex [...] urinalysis with reflex to culture NO NRG [id number] - 06/25/19 08:45 [id number] 36.2 ug/mL 50.0-100.0 CBC - 11/18/19 10:27 [...] 7-25 CREATININE 0.90 mg/dL 0.60-0.93 eGFR NON-AFR. FIJIAN 64 mL/min/1.73m2 > OR = 60 eGFR [...] 06/08/20 01:05 BNP PT 53.2 pg/mL <100.0 [id number] - 06/08/20 01:05 [id number] < 2.0 50.0-100.0 PT panel in platelet [...] urinalysis with reflex to culture NO NRG Automated blood complete blood count (he mogram) panel - 06/08/20 10:50 Blood leukocytes automated count (number/volume) 6.2 10*3/uL 4.3-11.0 Blood erythrocytes automated count (number/volume) 4.25 10*6/uL 4.35-5.85 Venous blood hemoglobin measurement (mass/volume) 11.5 g/dL 11.5-16.0 Blood hematocrit (volume fraction) 38 % 35-52 Automated erythrocyte mean corpuscular volume 88 [ foz_us] 80-99 Automated erythrocyte mean corpuscular h emoglobin (mass per erythrocyte) 27 pg 25-34 Automated erythrocyte mean corpuscular h emoglobin concentration measurement (mass/volume) 31 g/dL 32-36 Automated erythrocyte distribution width ratio 17. 4 % 10.0- 14.5 Automated blood platelet count (count/volume) 239 10*3/uL 130-400 Automated blood platelet mean volume measurement 9.9 [foz_us] 7.4-10.4 Comprehensive metabolic panel - 06/08/20 10:50 Serum or plasma sodium measurement (moles/volume) 141 mmol/L 135-145 Serum or plasma potassium measurement (moles/volume) 3.7 mmol/L 3.6-5.0 Serum or plasma chloride measurement (moles/volume) 104 mmol/L 98-107 Carbon dioxide 23 mmol/L 21-32 Serum or plasma anion gap determination (moles/volume) 14 mmol/L 5-14 Serum or plasma urea nitrogen measurement (mass/volume ) 11 mg/dL 7-18 Serum or plasma creatinine measurement (mass/volume) 0.79 mg/dL 0.60-1.30 Serum or plasma urea nitrogen/creatinine mass ratio 14 NRG Serum or plasma creatinine measurement w ith calculation of estimated glomerular filtration rate > NRG Serum or plasma glucose measurement (mass/volume) 105 mg/dL 70-105 Serum or plasma calcium measurement (mass/volume) 9.6 mg/dL 8.5-10.1 Serum or plasma total bilirubin measurement (mass/volu me) 0.6 mg/dL 0.1-1.0 Serum or plasma alkaline phosphatase med surement (enzymatic activity/volume) 99 U/L 40-136 Serum or plasma aspartate aminotransfera se measurement (enzymatic activity/volume) 20 U/L 5-34 Serum or plasma alanine aminotransferase measurement (enzymatic activity/volume) 15 U/L 0-55 Serum or plasma protein measurement (mass/volume) 6.6 g/dL 6.4-8.2 Serum or plasma albumin measurement (mass/volume) 4.1 g/dL 3.2-4.5 CALCIUM CORRECTED 9.5 mg/dL 8.5-10.1 TROPONIN I FS - 06/08/20 10:50 TROPONIN I FS < 0.30 <0.30 Complete blood count (CBC) with automate d white blood cell (WBC) differential - 06/08/20 20:29 Blood leukocytes automated count (number/volume) 5.8 10*3/uL 4.3-11.0 Blood erythrocytes automated count (number/volume) 3.92 10*6/uL 4.35-5.85 Venous blood hemoglobin measurement (mass/volume) 10.8 g/dL 11.5-16.0 Blood hematocrit (volume fraction) 34 % 35-52 Automated erythrocyte mean corpuscular volume 87 [ foz_us] 80-99 Automated erythrocyte mean corpuscular h emoglobin (mass per erythrocyte) 28 pg 25-34 Automated erythrocyte mean corpuscular h emoglobin concentration measurement (mass/volume) 32 g/dL 32-36 Automated erythrocyte distribution width ratio 18. 1 % 10.0- 14.5 Automated blood platelet count (count/volume) 244 10*3/uL 130-400 Automated blood platelet mean volume measurement 10.0 [foz_us] 7.4-10.4 Automated blood neutrophils/100 leukocytes 62 % 42-75 Automated blood lymphocytes/100 leukocytes 23 % 12-44 Blood monocytes/100 leukocytes 13 % 0-12 Automated blood eosinophils/100 leukocytes 2 % 0-10 Automated blood basophils/100 leukocytes 0 % 0-10 Blood neutrophils automated count (number/volume) 3.6 10*3 1.8-7.8 Blood lymphocytes automated count (number/volume) 1.3 10*3 1.0-4.0 Blood monocytes automated count (number/volume) 0. 8 10*3 0.0-1.0 Automated eosinophil count 0.1 10*3/uL 0 .0-0.3 Automated blood basophil count (count/volume) 0.0 10*3/uL 0.0-0.1 Comprehensive metabolic panel - 06/08/20 20:29 Serum or plasma sodium measurement (moles/volume) 147 mmol/L 135-145 Serum or plasma potassium measurement (moles/volume) 3.6 mmol/L 3.6-5.0 Serum or plasma chloride measurement (moles/volume) 111 mmol/L 98-107 Carbon dioxide 23 mmol/L 21-32 Serum or plasma anion gap determination (moles/volume) 13 mmol/L 5-14 Serum or plasma urea nitrogen measurement (mass/volume ) 12 mg/dL 7-18 Serum or plasma creatinine measurement (mass/volume) 0.90 mg/dL 0.60-1.30 Serum or plasma urea nitrogen/creatinine mass ratio 13 NRG Serum or plasma creatinine measurement w ith calculation of estimated glomerular filtration rate > NRG Serum or plasma glucose measurement (mass/volume) 93 mg/dL 70-105 Serum or plasma calcium measurement (mass/volume) 9.1 mg/dL 8.5-10.1 Serum or plasma total bilirubin measurement (mass/volu me) 0.5 mg/dL 0.1-1.0 Serum or plasma alkaline phosphatase med surement (enzymatic activity/volume) 89 U/L 40-136 Serum or plasma aspartate aminotransfera se measurement (enzymatic activity/volume) 16 U/L 5-34 Serum or plasma alanine aminotransferase measurement (enzymatic activity/volume) 14 U/L 0-55 Serum or plasma protein measurement (mass/volume) 6.0 g/dL 6.4-8.2 Serum or plasma albumin measurement (mass/volume) 3.7 g/dL 3.2-4.5 CALCIUM CORRECTED 9.3 mg/dL 8.5-10.1 Magnesium - 06/08/20 20:29 Magnesium 2.1 mg/dL 1.6-2.4 Serum or plasma creatine kinase measurem ent (enzymatic activity/volume) - 06/08/20 20:29 Serum or plasma creatine kinase measurem ent (enzymatic activity/volume) 45 U/L 29-168 PT panel in platelet poor plasma by coag ulation assay - 06/08/20 20:29 Prothrombin time (PT) in platelet poor plasma by coagu lation assay 13.6 s 12.2-14.7 INR in platelet poor plasma or blood by coagulation as say 1.0 0.8-1.4 Activated partial thromboplastin time (a PTT) in platelet poor plasma bycoagulation assay - 06/08/20 20:29 Activated partial thromboplastin time (a PTT) in platelet poor plasma bycoagulation assay 28 s 24-35 Serum or plasma creatine kinase MB measu rement (enzymatic activity/volume) - 06/08/20 20:29 Serum or plasma creatine kinase MB measu rement (enzymatic activity/volume) 1.4 ng/mL <6.6 Serum or plasma troponin i.cardiac measu rement (mass/volume) - 06/08/20 20:29 Serum or plasma troponin i.cardiac measurement (mass/v olume) < ng/mL <0.028 Myoglobin, serum - 06/08/20 20:29 Myoglobin, serum 40.4 ng/mL 10.0-92.0 Serum or plasma lithium measurement (mol es/volume) - 06/08/20 20:29 BNP PT 50.0 pg/mL <100.0 Serum or plasma troponin i.cardiac measu rement (mass/volume) - 06/08/20 23:12 Serum or plasma troponin i.cardiac measurement (mass/v olume) < ng/mL <0.028 Encounters ACCT No. Visit Date/Time Discharge Status Pt. Type Provider Facility Loc./Unit Complaint [id number] 01/19/2018 04:11:00 Document Registration [id number] 09/30/2014 16:41:00 09/30/2014 23:59: 59 [facility] Outpatient MICHELLE COLEY [id number] 07/15/2014 13:28:00 07/15/2014 23:59: 59 CLS Outpatient ESPITIA [facility] [id number] 05/06/2014 09:25:00 05/06/2014 23:59: 59 CLS Outpatient ESPITIA [facility] [id number] 04/06/2014 09:02:00 04/06/2014 23:59: 59 CLS Outpatient ESPITIA [facility] [id number] 02/24/2014 12:55:00 02/24/2014 23:59: 59 CLS Outpatient ESPITIA [facility] [facility] [employer] [facility] [id number] 02/04/2014 13:24:00 02/04/2014 23:59: 59 CLS Outpatient ESPITIA [facility] [facility] [id number] 11/19/2013 10:21:00 11/19/2013 23:59: 59 CLS Outpatient ESPITIA [facility] [facility] [employer] [facility] [id number] 09/15/2013 09:11:00 09/15/2013 23:59: 59 CLS Outpatient ESPITIA [employer] [facility] [facility] [id number] 06/03/2013 13:58:00 06/03/2013 23:59: 59 CLS Outpatient ANDER GRANT DO [id number] 11/18/2012 13:44:00 11/18/2012 23:59: 59 CLS Outpatient ESPITIA [facility] [id number] 10/17/2012 14:16:00 10/17/2012 23:59: 59 CLS Outpatient ESPITIA [employer] [facility] [id number] 11/10/2011 14:31:00 11/10/2011 23:59: 59 CLS Outpatient [id number] 04/10/2013 11:20:00 Document Registration [id number] 01/24/2013 13:15:00 Document Registration [id number] 01/24/2020 00:00:00 02/19/2020 07:45 :00 DIS Outpatient UNLISTED, UNLISTED [id number] 05/10/2019 09:55:00 05/10/2019 23:59: 00 DIS Outpatient RaglandGhanshyamHai [id number] 05/10/2019 01:44:00 05/10/2019 04:45: 00 DIS Outpatient VIOLETTA [employer] OPERATOR, LANI Gonzalez [facility] [id number] 05/05/2019 22:28:00 05/05/2019 23:16: 00 DIS Outpatient NEFTALY GISELA [facility] ER [id number] 05/02/2019 12:03:00 05/02/2019 14:22: 00 DIS Outpatient Paige [facility] ER [id number] 08/16/2018 08:57:00 08/16/2018 10:23: 00 DIS Outpatient Paige Sanford [facility] ER [id number] 08/04/2018 00:35:00 08/04/2018 01:58: 00 DIS Outpatient Jacqui Lewis [facility] ER [id number] 08/01/2018 14:00:00 08/01/2018 15:05: 00 DIS Outpatient Jean Wallace [facility] ER [id number] 07/17/2018 09:42:00 07/17/2018 23:59: 00 DIS Outpatient ANGELICANINO [id number] 07/17/2018 09:16:00 07/17/2018 23:59: 00 DIS Outpatient ANGELICANINO [id number] 01/18/2018 00:00:00 04/10/2018 07:48: 00 DIS Outpatient Mac Madden [id number] 02/22/2018 12:04:00 02/22/2018 23:59: 00 DIS Outpatient Mac Madden [id number] 02/12/2018 05:09:00 02/12/2018 08:24: 00 DIS Outpatient NEFTALY GISELA [facility] ER [id number] 02/11/2018 06:58:00 02/11/2018 09:30: 00 DIS Outpatient Jac Vanessa [id number] 02/03/2018 00:28:00 02/04/2018 14:40: 00 DIS Outpatient Bruce Stoner [facility] MED-SURG [id number] 01/14/2018 08:15:00 01/17/2018 14:00: 00 DIS Inpatient Lorena Laboy [facility] MED-SURG [id number] 11/17/2017 02:01:00 11/17/2017 06:53: 00 DIS Outpatient Jean Wallace [facility] ER [id number] 07/23/2017 11:33:00 07/25/2017 14:15: 00 DIS Outpatient Lorena Laboy [facility] MED-SURG [id number] 01/12/2017 14:08:00 01/13/2017 13:20: 00 DIS Outpatient Matt Ragland [id number] 07/19/2018 10:31:21 Document Registration [id number] 01/12/2018 15:04:00 Document Registration [id number] 01/12/2017 14:50:40 Document Registration [id number] 06/08/2020 10:00:00 ACT Outpatient MAC [facility]ADD[facility] [id number] 03/31/2020 15:00:00 Document Registration [id number] 11/18/2019 09:15:00 Document Registration [id number] 04/17/2019 09:00:00 Document Registration [id number] 03/13/2019 14:00:00 Document Registration [id number] 01/15/2019 13:15:00 Document Registration [id number] 06/08/2020 20:12:00 01:20:00 DIS Emergency MELINDA LORENA LEDEZMA a [facility] ER DIZZINESS [id number] 06/08/2020 00:49:00 02:46:00 DIS Emergency MELINDA LORENA LEDEZMA a [facility] ER ELEVATED BLOOD PRESSURE [id number] 06/06/2020 08:12:00 11:45:00 DIS Outpatient EZIO HOUSER DO [facility] ER ARM PAIN [id number] 05/29/2020 11:02:00 13:52:00 DIS Outpatient KIRSTIN GARZA MD [facility] ER FALL [id number] 01/11/2020 12:14:00 15:36:00 DIS Emergency STEPH DAILY [facility] ER FALL [id number] 01/07/2020 14:47:00 15:14:00 DIS Emergency BLU WAGGONER [facility] ER SWELLING OF HANDS AND F EET [id number] 01/06/2020 19:18:00 21:18:00 DIS Emergency DEONNA MOBLEY APRN [facility] ER RECTAL BLEEDING [id number] 12/25/2019 13:20:00 17:13:00 DIS Emergency DEONNA MOBLEY [employer] OPERATOR [facility] ER L LEG/TONGUE SWELLING [id number] 12/24/2019 14:21:00 17:05:00 DIS Emergency KIRSTIN GARZA MD [facility] ER MOUTH/TONGUE SWELLING [id number] 10/22/2019 19:22:00 21:00:00 DIS Emergency DEONNA MOBLEY [employer] PR[employer] OPERATOR [facility] ER FALL,SHOULDER PAIN [id number] 06/25/2019 08:31:00 23:59:59 CLS Outpatient SARAHI ESCALANTE, HALEY Pineda [facility] LAB MIGRAINE [id number] 06/14/2019 13:04:00 17:31:00 DIS Emergency JESSICA ESCALANTE, ELIEZER Salgado [facility] ER DEHYDRATION [id number] 06/06/2019 09:27:00 23:59:59 CLS Outpatient ROZINA ESCALANTE, MAC Pineda [facility] RAD SCREENING [id number] 05/23/2019 21:59:00 01:03:00 DIS Emergency KIRSTIN LORENZO MD [facility] ER RECTAL BLEEDING [id number] 05/22/2019 01:38:00 05:11:00 DIS Emergency LORENA LAWRENCE DO [facility] ER VAGINAL/RECTAL DISCOMFO RT [id number] 05/17/2019 03:45:00 04:49:00 DIS Emergency KIRSTIN GARZA MD [facility] ER DIZZY,WEAKNESS [id number] 05/11/2019 13:41:00 16:27:00 DIS Emergency LORENA LAWRENCE DO [facility] ER MIGRAINE [id number] 05/10/2019 18:59:00 019 22:40:00 DIS Emergency DEONNA MOBLEY [employer] PR[employer] OPERATOR [facility] ER MIGRAINE [id number] 03/05/2019 15:35:00 019 20:00:00 DIS Emergency LORENA LAWRENCE DO a [facility] ER DEHYDRATED [id number] 09/28/2018 16:14:00 018 20:06:00 DIS Emergency DEONNA MOBLEY [employer] PR[employer] OPERATOR [facility] ER SORE THROAT/FEVER [id number] 08/29/2018 19:24:00 018 22:02:00 DIS Emergency GREG ESCALANTE, KIRSTIN Villeda [facility] ER R LOWER LEG POSS CELLUL ITIS [id number] 05/09/2017 12:18:00 017 23:59:59 CLS Outpatient AMPARO ESCALANTE, RENU Bauñelos [facility] RAD 4+ [id number]], [id number] 03/19/2017 09:00:00 017 23:59:59 CLS Outpatient YURI SEYMOUR MD [facility] RAD DIARRHEA [id number] 06/10/2015 16:09:00 015 11:30:00 DIS Inpatient SANGEETA ESCALANTE, MUKUL Cordova [facility] IRF LRFT TIB FIB FRX [id number] 06/08/2020 10:35:[address] Outpatient ROZINA ESCALANTE, MAC Pineda [facility] LAB FS ATHEROSCLEROSIS OF [place] RONARY ARTERY [id number] 07/08/2019 14:17:00 Document Registration [id number] 07/08/2019 14:17:00 Document Registration [id number] 01/10/2019 09:58:00 Document Registration [id number] 02/29/2012 01:06:00 Document Registration [id number] 05/22/2011 15:24:00 Document Registration [id number] 05/21/2011 20:01:00 Document Registration [id number] 05/14/2011 10:31:00 Document Registration [id number] 11/24/2010 08:50:00 Document Registration [id number] 10/20/2010 08:36:00 Document Registration [id number] 09/23/2010 16:00:00 Document Registration [id number] 09/12/2010 15:57:00 Document Registration [id number] 08/11/2010 15:19:00 Document Registration [id number] 08/10/2010 13:28:00 Document Registration [id number] 08/09/2010 14:33:00 Document Registration [id number] 02/12/2009 11:00:00 Document Registration [id number] 08/15/2007 08:32:00 Document Registration
[2020-06-11] MEDS ORDERED: ACETAMINOPHEN 500 MG TAB (TYLENOL) PO STA (02:34)
--- NOTE | 2020-06-11 02:54 | ED General ---
General Chief Complaint: Psych/Social Disorder Stated Complaint: ANXIETY Nursing Triage Note: TO ED [facility] TO ROOM 5 WITH C/O HEADACHE THAT STARTED AT MIDNIGHT, TOOK BP AND FOUND TO BE HIGH. PT APPEARS VERY ANXIOUS. DID NOT TAKE RX IMITREX FOR MIGRAINES. THIS IS 4TH ER VISIT FOR SAME COMPLAINTS SINCE BEGINNING OF JUNE. Nursing Sepsis Screen: No Definite Risk Source of Information: Patient Exam Limitations: No Limitations (ELIEZER LOPEZ MD) History of Present Illness Date Seen by Provider: Jun 11, 2020 Time Seen by Provider: 02:18 Initial Comments Here with report of headache, anxiousness and hypertension. States that she was sitting in her recliner watching a movie trying to go to sleep when she noted that she started getting a headache. She noted that her face, ears and chest were read consistent with high blood pressure. She has not taken her high blood pressure yet this morning and it is not due until about 5 AM. Reports that she's taken her meds as directed. She does admit to a lot of stress and has an upcoming surgery related to her hiatal hernia. She states that she takes her blood pressure medicines in the morning and has 3 of them. She does not remember doses or what they are. She she has been seen for this 4 times already this month. Workups on previous evaluations have been negative. She is also complaining of low back pain that is chronic and related to her rheumatoid arthritis and curved spine. She normally takes tramadol for that. She has not taken that tonight. She has not taken anything for the headache. Associated Systoms: No Chest Pain, No Cough, No Fever/Chills; Headaches; No Shortness of Air, No Weakness (ELIEZER LOPEZ MD) Allergies and Home Medications Allergies Coded Allergies: Sulfa (Sulfonamide Antibiotics) (Verified Allergy, Unknown, 05/17/19) Home Medications Amitriptyline HCl 25 Mg Tablet, 25 MG PO HS, (Reported) Aripiprazole 15 Mg Tablet, 15 MG PO DAILY, (Reported) Cholecalciferol (Vitamin D3) 1,000 Unit Tablet, 1,000 UNIT PO DAILY, (Reported) Epinephrine 0.3 Mg/0.3 Ml Auto.injct, 0.3 MG IJ Q15M PRN for angioedema Prescribed by: KIRSTIN GARZA on 12/24/19 4644 Gabapentin 300 Mg Capsule, 300 MG PO BID, (Reported) Levothyroxine Sodium 75 Mcg Tablet, 75 MCG PO DAILY, (Reported) Lidocaine 15 Gm Cream..g., 1 GM TP TID PRN for PAIN-SEVERE (8-10) Prescribed by: DEONNA MOBLEY on 01/06/202029 Meclizine HCl 25 Mg Tablet, 25 MG PO Q6H PRN for VERTIGO Prescribed by: KIRSTIN GARZA on 05/17/19 0440 Memantine HCl 5 Mg Tablet, 5 MG PO BID 5 MG PO Q AM and HS. Prescribed by: BLU QUINONES on 06/10/15 152 Metoprolol Tartrate 50 Mg Tablet, 50 MG PO DAILY, (Reported) Ondansetron 4 Mg Tab.rapdis, 4 MG PO Q6H PRN for NAUSEA/VOMITING Prescribed by: ELIEZER LOPEZ on 06/14/19 171 Pantoprazole Sodium 40 Mg Tablet.dr, 40 MG PO DAILY, (Reported) Potassium Chloride 20 Meq Tablet.er, 20 MEQ PO BID Prescribed by: STEPH FINN on 01/11/20 144 Prednisone 10 Mg Tab, 30 MG PO DAILY Prescribed by: REGLA LAWRENCE on 05/11/19 1441 Sucralfate 1 Gm Tablet, 1 GM PO QIDACHS Prescribed by: REGLA LAWRENCE on 03/05/19 191 Sumatriptan Succinate 100 Mg Tablet, 0.5 TAB PO PRN PRN for HEADACHE May repeat in 2 hours; Max 200 MG/24 hours. Prescribed by: BLU QUINONES on 06/10/15 155 Tramadol HCl 50 Mg Tablet, 50 MG PO BID, (Reported) Vitamin E 400 Unit Capsule, 400 UNIT PO DAILY, (Reported) Vortioxetine Hydrobromide 5 Mg Tablet, 5 MG PO DAILY, (Reported) [Biotin] , 10,000 MCG PO Evening Prescribed by: BLU QUINONES on 06/12/15 153 [Folic Acid 1MG] , 2 MG PO DAILY, (Reported) [Iron 65MG] , 65 MG PO Evening Prescribed by: BLU QUINONES on 06/12/15 153 [Nitrostat] , 0.4 MG SL UD Q5 min X3 PRN. Prescribed by: BLU QUINONES on 06/10/15 155 [Potassium] , 20 MEQ PO BID, (Reported) Patient Home Medication List Home Medication List Reviewed: Yes (ELIEZER LOPEZ MD) Review of Systems Review of Systems Constitutional: see HPI; No chills, No fever EENTM: no symptoms reported Respiratory: No cough, No short of breath Cardiovascular: see HPI; No chest pain, No palpitations Gastrointestinal: No abdominal pain, No nausea, No vomiting Genitourinary: no symptoms reported Musculoskeletal: back pain, muscle pain Skin: change in color; No lesions Psychiatric/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: Anxiety, Headache (ELIEZER LOPEZ MD) All Other Systems Reviewed Negative Unless Noted: Yes (ELIEZER LOPEZ MD) Past Jgtvrjc-Ddxizw-Bxqbys Hx Past Med/Social Hx: Reviewed Nursing Past Med/Soc Hx (ELIEZER LOPEZ MD) Patient Social History Alcohol Use: Occasionally Uses Number of Drinks Today: Alcohol Beverage of Choice: Wine Recreational Drug Use: No Type Used: Cigarettes Former Smoker, Quit: May 13, 2009 2nd Hand Smoke Exposure: No Recent Foreign Travel: No Contact w/Someone Who Travel: No Recent Infectious Disease Expo: No Recent Hopitalizations: No Physical Abuse: No Sexual Abuse: No Mistreated: No Fear: No (ELIEZER LOPEZ MD) Immunizations Up To Date Tetanus Booster (TDap): More than 5yrs PED Vaccines UTD: Yes Date of Pneumonia Vaccine: Sep 04, 2019 Date of Influenza Vaccine: Sep 04, 2019 (ELIEZER LOPEZ MD) Seasonal Allergies Seasonal Allergies: Yes (ELIEZER LOPEZ MD) Past Medical History Surgeries: Yes (PORT;HYST/BSO;BOWEL/RECTAL SURGERY;HIATAL HERNIA REPAIR;EGD/C-SCOPES) Abdominal, Adenoidectomy, Bowel Surgery, Gallbladder, Hysterectomy, Oophorectomy, Rectal, Tonsillectomy Respiratory: Yes Pneumonia, COPD Cardiac: Yes (PSVT; RBBB) High Cholesterol, Hypertension 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: Yes Dementia, Headaches /Migraines, Neuropathy, Vertigo [employer] History: Hysterectomy, Menopausal Genitourinary: No Gastrointestinal: Yes (BOWEL/RECTAL SURGERY;RECTAL PROLAPSE REPAIR;HIATAL HERNIA REPAIR; U.COLITIS) Colitis, Gastroesophageal Reflux, Crohns Disease, Chronic Constipation, Chronic Diarrhea, Hiatal Hernia, Gall Bladder Disease, Irritable Bowel Musculoskeletal: Yes (FALLS, USES WALKER) Osteoporosis, Arthritis, Fibromyalgia, Rheumatoid Arthritis, Chronic Back Pain Endocrine: Yes Hypothyroidsim HEENT: Yes Glaucoma Cancer: Yes Cervical Did You Recieve Any Treatments: Yes What Type of Treatment Did You: Surgical Intervention Psychosocial: Yes (EXTENSIVE PSYCH ISSUES) Anxiety, Bipolar, Depression Integumentary: No Blood Disorders: No (ELIEZER LOPEZ MD) Family Medical History Reviewed Nursing Family Hx (ELIEZER LOPEZ MD) No Pertinent Family Hx PSH: -HYSTERECTOMY/BILATERAL SALPINGO-OOPHORECTOMY -BOWEL SURGERY FOR OBSTRUCTION -LAPAROSCOPY -RECTAL PROLAPSE REPAIR/SIGMOID RESECTION -UMBILICAL HERNIA REPAIR -HIATAL HERNIA REPAIR -HEMORRHOIDECTOMY -TONSILLECTOMY/ADENOIDECTOMY -CHOLECYSTECTOMY -PORT LEFT CHEST HAS CHRONIC RECTAL PAIN COMPLAINTS (ELIEZER LOPEZ MD) Physical Exam Vital Signs Vital Signs - First Documented 06/11/20 02:20 Temp 36.2 Pulse 110 Resp 20 B/P (MAP) 177/101 (126) O2 Delivery Room Air (KIRSTIN LORENZO MD) Vital Signs Capillary Refill : Less Than 3 Seconds (ELIEZER LOPEZ MD) Height, Weight, BMI Height: 5'2.00" Weight: 125lbs. 0oz. 56.743794kp; 23.00 BMI Method:Stated General Appearance: No Apparent Distress, WD/WN (with a Xanax) HEENT: PERRL/EOMI, Pharynx Normal Neck: Non Tender, Supple Respiratory: Lungs Clear, Normal Breath Sounds Cardiovascular: No Murmur, Tachycardia Gastrointestinal: Non Tender, Soft Back: Normal Inspection, No CVA Tenderness, No Vertebral Tenderness Extremity: Normal Range of Motion, Non Tender Neurologic/Psychiatric: Alert, Oriented x3 Skin: Normal Color, Warm/Dry (ELIEZER LOPEZ MD) Progress/Results/Core Measures Suspected Sepsis Recent Fever Within 48 Hours: No Infection Criteria Present: None New/Unexplained Altered Menta: No Sepsis Screen: No Definite Risk SIRS Temperature: Pulse: 110 Respiratory Rate: 20 Laboratory Tests 06/11/20 04:10: White Blood Count 7.3 Blood Pressure 177 /101 Mean: 126 Laboratory Tests 06/11/20 04:10: Creatinine 0.89, INR Comment 1.0, Platelet Count 253, Total Bilirubin 0.4 (ELIEZER LOPEZ MD) Results/Orders Lab Results Laboratory Tests Test 06/11/20 04:10 06/11/20 06:55 Range/Units White Blood Count 7.3 4.3-11.0 10^3/uL Red Blood Count 4.31 L 4.35-5.85 10^6/uL Hemoglobin 11.6 11.5-16.0 G/DL Hematocrit 37 35-52 % Mean Corpuscular Volume 86 80-99 FL Mean Corpuscular Hemoglobin 27 25-34 PG Mean Corpuscular Hemoglobin Concent 31 L 32-36 G/DL Red Cell Distribution Width 17.7 H 10.0-14.5 % Platelet Count 253 130-400 10^3/uL Mean Platelet Volume 9.8 7.4-10.4 FL Neutrophils (%) (Auto) 59 42-75 % Lymphocytes (%) (Auto) 26 12-44 % Monocytes (%) (Auto) 13 H 0-12 % Eosinophils (%) (Auto) 2 0-10 % Basophils (%) (Auto) 0 0-10 % Neutrophils # (Auto) 4.3 1.8-7.8 X 10^3 Lymphocytes # (Auto) 1.9 1.0-4.0 X 10^3 Monocytes # (Auto) 0.9 0.0-1.0 X 10^3 Eosinophils # (Auto) 0.1 0.0-0.3 10^3/uL Basophils # (Auto) 0.0 0.0-0.1 10^3/uL Prothrombin Time 13.5 12.2-14.7 SEC INR Comment 1.0 0.8-1.4 Activated Partial Thromboplast Time 27 24-35 SEC Sodium Level 145 135-145 MMOL/L Potassium Level 3.3 L 3.6-5.0 MMOL/L Chloride Level 107 98-107 MMOL/L Carbon Dioxide Level 22 21-32 MMOL/L Anion Gap 16 H 5-14 MMOL/L Blood Urea Nitrogen 13 7-18 MG/DL Creatinine 0.89 0.60-1.30 MG/DL Estimat Glomerular Filtration Rate > 60 BUN/Creatinine Ratio 15 Glucose Level 90 70-105 MG/DL Calcium Level 10.4 H 8.5-10.1 MG/DL Corrected Calcium 10.4 H 8.5-10.1 MG/DL Magnesium Level 2.1 1.6-2.4 MG/DL Total Bilirubin 0.4 0.1-1.0 MG/DL Aspartate Amino Transf (AST/SGOT) 21 5-34 U/L Alanine Aminotransferase (ALT/SGPT) 17 0-55 U/L Alkaline Phosphatase 96 40-136 U/L Myoglobin 55.4 10.0-92.0 NG/ML Troponin I < 0.028 < 0.028 <0.028 NG/ML Total Protein 6.9 6.4-8.2 GM/DL Albumin 4.0 3.2-4.5 GM/DL (KIRSTIN LORENZO MD) My Orders Orders - KIRSTIN LORENZO MD Troponin I (06/11/20 07:00) Thyroid Stimulating Hormone (06/11/20 07:47) (KIRSTIN LORENZO MD) Medications Given in ED Current Medications Medications Dose Ordered Sig/Mana Route Start Time Stop Time Status Last Admin Dose Admin Aspirin 324 mg ONCE ONCE PO 06/11/20 04:15 06/11/20 04:16 DC 06/11/20 04:10 324 MG Hydralazine HCl 10 mg ONCE ONCE PO 06/11/20 02:45 06/11/20 02:46 DC 06/11/20 02:46 10 MG Metoprolol Succinate 25 mg ONCE ONCE PO 06/11/20 02:45 06/11/20 02:46 DC 06/11/20 02:46 25 MG (KIRSTIN LORENZO MD) Vital Signs/I&O 06/11/20 02:20 Temp 36.2 Pulse 110 Resp 20 B/P (MAP) 177/101 (126) O2 Delivery Room Air (KIRSTIN LORENZO MD) Vital Signs/I&O Capillary Refill : Less Than 3 Seconds (ELIEZER LOPEZ MD) Blood Pressure Mean: 126 Progress Note : Progress Note Seen and evaluated. We will start with pain control and blood pressure control medicines and see if she improves. Tylenol 1 g by mouth for headache, tramadol 50 mg by mouth for back pain, Toprol-XL 25 mg by mouth and hydralazine 10 mg by mouth for hypertension. Patient is on monitor and we will continue to monitor her vital signs and her for improvement. 0404: Monitor shows concerns for ST elevation in lead 2. 12-lead EKG ordered and done and there is some concerns for acute CA in the lateral aspect. Although vague. Labs have been ordered an IV will be established. 0424: I did discuss the case with Dr. Langston and he has looked at the EKGs both from today and from 06/08/20. It does not seem to be any appreciable change and I do not see significant elevation. Patient is pain-free except for mild headache. We will check troponin and if this is positive then there'll be consideration for heart catheter after discussion with Dr. Langston. Monitor patient. 0444: Troponin negative. Patient resting peacefully. We will repeat troponin at about 7 AM after discussion with Dr. Langston. Monitor patient. (ELIEZER LOPEZ MD) Progress Note #1: Time: 07:22 Progress Note Care of this patient was assumed from Dr. Lopez at 06:00. Systolic blood pressure is now 159. Repeat troponin is pending. Progress Note #2: Time: 07:52 Progress Note Repeat troponin was unremarkable. Patient has no complaints. Blood pressure has improved to an acceptable range. She is being instructed to return home and continue her usual medications including her morning doses of blood pressure medications. She is being instructed to take her Toprol XL twice a day until otherwise instructed by her doctor. She sees Dr. Rojas who normally manages her blood pressure medications. Her primary care provider is Dr. Handy. Thyroid studies were added to her labs. Results were not known prior to discharge. She is being instructed to follow-up on that with her primary care provider. Review of chart did not reveal any recent thyroid studies. (KIRSTIN LORENZO MD) ECG Initial ECG Impression Date: Jun 11, 2020 Initial ECG Impression Time: 04:04 Initial ECG Rate: 97 Initial ECG Rhythm: Normal Sinus Comment Sinus rhythm with right bundle-branch block and left anterior fascicular block. Left ventricular hypertrophy. Left axis deviation. She notes acute CA although not readily apparent and EKG similar to EKG on 06/08/20. This was reviewed with Dr. Langston and he agrees. Monitor patient. (ELIEZER LOPEZ MD) Diagnostic Imaging Diagonstic Imaging: Xray Plain Films/CT/US/NM/MRI: chest Comments No acute findings Reviewed: Reviewed by Me (ELIEZER LOPEZ MD) Departure Impression Primary Impression: Hypertension Qualified Codes: I10 - Essential (primary) hypertension Additional Impression: Acute headache Qualified Codes: R51 - Headache Disposition: 01 HOME, SELF-CARE Condition: Improved Departure-Patient Inst. Decision time for Depature: 07:54 (KIRSTIN LORENZO MD) Referrals: MAC HANDY MD (PCP/Family) Primary Care Physician Patient Instructions: High Blood Pressure in Adults Add. Discharge Instructions: When you return home take your usual medications including her blood pressure medication. Increase the frequency of your metoprolol succinate (Toprol-XL) to 25 mg twice daily until otherwise instructed by one of your doctors. Follow-up with Dr. Rojas and Dr. Handy as soon as possible. Please call today to explain the situation and schedule follow-up. Your thyroid labs are being checked as well. Results were not known at the time of your discharge from the ER. Please follow-up on those results with your doctors. Return to care or call your doctor if you have any further questions or concerns. For headache feel free to take Tylenol (acetaminophen) up to 650 mg every 6 hours as needed. All discharge instructions reviewed with patient and/or family. Voiced understanding. Copy Copies To 1: MAC HANDY MD, TIMOTHY D MD Jun 11, 2020 02:54 KIRSTIN LORENZO MD Jun 11, 2020 07:23
[2020-06-11] MEDS ORDERED: ASPIRIN 81 MG CHEW (CHILDREN'S ASA) ONE (04:07)
[2020-06-11] MEDS ORDERED: ASPIRIN 81 MG CHEW (CHILDREN'S ASA) PO ONE (04:15)
[2020-06-11 04:17] LABS: BASOPHILS % (AUTO) 0 % (0-10); EOSINOPHILS # (AUTO) 0.1 10^3/uL (0.0-0.3); EOSINOPHILS % (AUTO) 2 % (0-10); HEMATOCRIT 37 % (35-52); HEMOGLOBIN 11.6 G/DL (11.5-16.0); LYMPHOCYTES # (AUTO) 1.9 X 10^3 (1.0-4.0); LYMPHOCYTES % (AUTO) 26 % (12-44); MEAN CORPUSCULAR HEMOGLOBIN 27 PG (25-34); MEAN CORPUSCULAR HGB CONC 31 G/DL (32-36); MEAN CORPUSCULAR VOLUME 86 FL (80-99); MEAN PLATELET VOLUME 9.8 FL (7.4-10.4); MONOCYTES # (AUTO) 0.9 X 10^3 (0.0-1.0); MONOCYTES % (AUTO) 13 % (0-12); NEUTROPHILS # (AUTO) 4.3 X 10^3 (1.8-7.8); NEUTROPHILS % (AUTO) 59 % (42-75); PLATELET COUNT 253 10^3/uL (130-400); RED CELL DISTRIBUTION WIDTH 17.7 % (10.0-14.5); WHITE BLOOD COUNT 7.3 10^3/uL (4.3-11.0)
[2020-06-11 04:30] LABS: PROTHROMBIN TIME PATIENT 13.5 SEC (12.2-14.7)
[2020-06-11 04:35] LABS: ALANINE AMINOTRANSFERASE 17 U/L (0-55); ALKALINE PHOSPHATASE 96 U/L (40-136); BILIRUBIN,TOTAL 0.4 MG/DL (0.1-1.0); BUN/CREATININE RATIO 15; CALCIUM 10.4 MG/DL (8.5-10.1); CARBON DIOXIDE 22 MMOL/L (21-32); CHLORIDE 107 MMOL/L (98-107); CREATININE SERUM 0.89 MG/DL (0.60-1.30); GFR ESTIMATED > 60; GLUCOSE 90 MG/DL (70-105); MAGNESIUM 2.1 MG/DL (1.6-2.4); POTASSIUM 3.3 MMOL/L (3.6-5.0); SODIUM 145 MMOL/L (135-145); TOTAL PROTEIN 6.9 GM/DL (6.4-8.2)
--- NOTE | 2020-06-11 05:51 | Diagnostic Imaging Report ---
CHEST 1 VIEW, AP/PA ONLY Indication: Chest pain. Comparison: 06/08/2020 Findings: No focal airspace disease in the visualized lungs. Please note that the posterior lower lobes are poorly evaluated by portable radiography. No pleural effusion or pneumothorax. Normal cardiomediastinal silhouette. Stable left subclavian Port-A-Cath. Impression: 1. No acute cardiopulmonary process by portable radiography. Dictated by: Dictated on workstation # [id number]
--- NOTE | 2020-06-11 06:59 | NUR ---
ASSUMED CARE OF PT.
[2020-06-11 08:04] VITALS: BP 160/84
== END 2020-06-11 08:04 | disposition home or self-care (01) ==
LOC: EDUNIT# 02:15 → ER 02:16
DX: I10 Essential (primary) hypertension (principal); R51 Headache; J44.9 Chronic obstructive pulmonary disease, unspecified; F03.90 Unspecified dementia, unspecified severity, without behavioral disturbance, psychotic disturbance, mood disturbance, and anxiety; G62.9 Polyneuropathy, unspecified; K21.9 Gastro-esophageal reflux disease without esophagitis; E03.9 Hypothyroidism, unspecified; M79.7 Fibromyalgia; F41.9 Anxiety disorder, unspecified; F31.9 Bipolar disorder, unspecified; K58.0 Irritable bowel syndrome with diarrhea; K58.1 Irritable bowel syndrome with constipation; G89.29 Other chronic pain; M54.9 Dorsalgia, unspecified; Z85.41 Personal history of malignant neoplasm of cervix uteri; Z91.14 Patient's other noncompliance with medication regimen; Z79.890 Hormone replacement therapy; Z88.2 Allergy status to sulfonamides; Z86.69 Personal history of other diseases of the nervous system and sense organs; Z79.52 Long term (current) use of systemic steroids; Z87.891 Personal history of nicotine dependence; Z79.891 Long term (current) use of opiate analgesic
CPT/HCPCS: 36415; 71045; 80053; 83735; 83874; 84443; 84484; 85025; 85610; 85730; 93005; 93041

== ENCOUNTER 2020-06-13 09:09 | Emergency (ER) | payer MEDICARE, MEDICAID ==
[~2020-06-13] VITALS: Ht 157.5 cm; Wt 54.4 kg
--- OUTSIDE RECORDS SUMMARY | 2020-06-13 09:18 | XMS REPORT | Continuity of Care Document ---
Author Author [facility] J[facility] Organization [facility] Address Unknown Phone Unavailable Care Team Providers Care Radiation Engineer Name Role Phone [facility] [employer] Unavailable Unavailable Problems Problem Status Onset Date Classification Date Reported Comments Source RECTAL PROLAPSE Active 01/23/2020 [facility] CROHN'S DISEASE, UNSPECIFIED, WITHOUT CO Active 01/23/2020 [facility] HYPOKALEMIA Active 01/23/2020 [facility] ESSENTIAL (PRIMARY) HYPERTENSION Active 01/23/2020 [facility] CHRONIC OBSTRUCTIVE PULMONARY DISEASE, U Active 01/23/2020 [facility] FIBROMYALGIA Active 01/23/2020 [facility] DISORDER OF THYROID, UNSPECIFIED Active 01/23/2020 [facility] MIGRAINE, UNSPECIFIED, NOT INTRACTABLE, Active 01/23/2020 [facility] HORMONE REPLACEMENT THERAPY Ac tive 01/23/2020 [facility] OTHER QUALITY CONTROL INSPECTOR (CURRENT) DRUG THERAPY Active 01/23/2020 [facility] PERSONAL HISTORY OF NICOTINE DEPENDENCE Active 01/23/2020 [facility] Rectal prolapse 01/21/2020 Discharge Diagnosis 01/24/2020 [facility] Rectocele 0 01/21/2020 Discharge Diagnosis 01/24/2020 [facility] CDNlion Chronic obstructive lung disease (disorder) Active Problem 01/24/2020 [facility] Hypertensive disorder, systemic arterial (disorder) Active Problem 01/24/2020 [facility] Medications Medication Details Route Status Patient Instructions Ordering Provider Order Date Source Hair, Skin, & Nails Gummies 2 gummies, Chewed, Daily, 0 Refill(s), Indication: Vitamin Supplement Active 01/16/2020 [facility] [employer] [facility] Vitamin D3 2 gummies, Chewed, Daily, 0 Refill(s), Indication: Vitamin Supplement Active 01/16/2020 [facility] Albuterol 0.09 MG/ACTUAT Metered Dose Inhaler 1 Puff, 4 times a day, PRN Shortness of Breath or Wheezing, 0 Refill(s), Indication: Breathing Difficulty Active 01/16/2020 [facility] Potassium Chloride 20 mEq, BID (2 times a day), 0 Refill(s), Indication: Low Potassium Active 01/16/2020 [facility] Cymbalta 30 mg, PO, Daily, 0 R efill(s), Indication: Nerve Pain Active 01/16/2020 [facility] Metoprolol Succinate ER 25 mg oral table t, extended release 2 TAB, PO, Daily, 0 Refill(s), Indicatio n: High Blood Pressure Active 01/16/2020 [facility] pantoprazole 40 MG Enteric Coated Tablet [Protonix] 1 TAB, PO, Daily, 0 Refill(s), Indication: Reflux Active 01/16/2020 [facility] gabapentin 300 MG Oral Capsule 1 CAP, PO, BID (2 times a day), 0 Refill(s), Indication: Nerve Pain Active 01/16/2020 [facility] Synthroid 75 mcg, PO, Daily, 0 Refill(s), Indication: Thyroid Disorder Active 01/16/2020 [facility] ondansetron 4 mg oral tablet 1 TAB, PO, Q6H (Every 6 hours), PRN Nausea/Vomiting, 0 Refill(s), Indication: Nausea/Vomiting Active 01/16/2020 [facility] Sumatriptan 100 MG Oral Tablet [Imitrex] 0.5 TAB, PO, Daily, PRN as needed for migraine headache, 0 Refill(s), may take up to 200mg per day, Indication: Migraine Active 01/16/2020 [facility] tramadol hydrochloride 50 MG Oral Tablet 2 TAB, PO, Q6H (Every 6 hours), PRN as needed for pain, 0 Refill(s), Indication: Pain Active 01/16/2020 [facility] Alprazolam 0.25 MG Oral Tablet 1 TAB, PO, Daily, PRN as needed for anxiety, 0 Refill(s), MAY TAKE DOS, Indication: Anxiety Active 01/16/2020 [facility] Allergies, Adverse Reactions, Alerts Substance Category Reaction Severity Reaction type Status Date Reported Comments Source Sulfa drugs<sup>1</sup> Assert ion Drug aller gy Active vomiting/diarrhea [facility] Immunizations No Data Provided for This Section Results Order Name Results Value Reference Range Date Interpretation Comments Source CHEMISTRY CO2 25 mmol/L 22 - 29 01/23/2020 [facility] CHEMISTRY Glucose 105 mg/dL 70 - 100 01/23/2020 [facility] CHEMISTRY BUN 4 mg/dL 8 - 20 01/23/2020 [facility] CHEMISTRY Creatinine 0.7 mg/dL 0.7 - 1.2 01/23/2020 [facility] CHEMISTRY Calcium 9.1 mg/dL 8.6 - 10.2 01/23/2020 [facility] CHEMISTRY AGAP 12 mmol/L 3 - 16 01/23/2020 [facility] CHEMISTRY Sodium 144 mmol/L 136 - 145 01/23/2020 [facility] CHEMISTRY Potassium 4.2 mmol/L 3.5 - 5.1 01/23/2020 [facility] CHEMISTRY Chloride 107 mmol/L 98 - 107 01/23/2020 [facility] CHEMISTRY GFR (CKD-EPI) 85.6 m L/min/1.73 m2 [...] mL/min/1.73 m^2
Kidney Failure <15 mL/min/1.73 m^2 [facility] CHEMISTRY Est CrCL (CG) 50.8 m L/min 01/23/2020 Result Comment: Estimated Creatinine Gibran arance calculated based on Cockcroft-Gault formula using:

Height 158

Weight 56

Estimated Creatinine Clearance Cockcroft Gault is utilized by the Pharmacy to assist in determining medication dosage based on kidney function. Multiple factors determine normal ranges, please contact the Pharmacy with questions. [facility] HEMATOLOGY WBC 7.8 x 10'3/microL 4.0 - 11.0103 01/23/2020 [facility] HEMATOLOGY RBC 3.93 x10'6/microL 3.90 - 5.21336 01/23/2020 [facility] HEMATOLOGY Hgb 10.9 g/dL 12.0 - 16.0 01/23/2020 [facility] HEMATOLOGY Hct 35 % 35 - 47 01/23/2020 [facility] HEMATOLOGY MCV 90 fL 81 - 99 01/23/2020 [facility] HEMATOLOGY MCH 28 pg 27 - 34 01/23/2020 [facility] HEMATOLOGY MCHC 31 g/dL 30 - 36 01/23/2020 [facility] HEMATOLOGY RDW 15.1 % <=16.4 % 01/23/2020 [facility] HEMATOLOGY Platelet 205 x 10'3/microL 140 - [id number] 01/23/2020 [facility] HEMATOLOGY MPV 10.5 fL 8.3 - 12.4 01/23/2020 [facility] Est CrCl (CG) Est CrCL (CG) 50 .8 mL/min 01/23/2020 NA Estimated Creatinine Clearance calculate d based on Cockcroft- Gault formula using:
Height 158
Weight 56
Estimated Creatinine Clearance Cockcroft Gault is utilized by the Pharmacy to assist in determining medication dosage based on kidney function. Multiple factors determine normal ranges, please contact the Pharmacy with questions.
[facility] Renal Funct Index GFR (CKD-EPI) 85.6 mL/min/1.73 m2 >=60.0 01/23/2020 N GFR calculated based on CKD- EPI Creatinine Equation (2009).
Age(years) Average GFR
20-29 116 mL/min/1.73 m^2
30-39 107 mL/min/1.73 m^2
40-49 99 mL/min/1.73 m^2
50-59 93 mL/min/1.73 m^2
60-69 85 mL/min/1.73 m^2
70+ 75 mL/min/1.73 m^2

Acceptable GFR =>60 mL/min/1.73 m^2
Chronic Kidney Disease <60 mL/min/1.73 m^2
Kidney Failure <15 mL/min/1.73 m^2
[facility] BMP CO2 25 mmol/L 22 - 29 01/23/2020 N [facility] BMP AGAP 12 mmol/L 3 - 16 01/23/2020 N [facility] BMP Glucose 105 mg/dL 70 - 100 01/23/2020 H [facility] BMP BUN 4 mg/dL 8 - 20 01/23/2020 L [facility] BMP Creatinine 0.7 mg/dL 0.7 - 1.2 01/23/2020 N The presence of ketone bodies can cause artificially high results in serum, plasma and urine.
[facility] BMP Calcium 9.1 mg/dL 8.6 - 10.2 01/23/2020 N [facility] BMP Sodium 144 mmol/L 136 - 145 01/23/2020 N [facility] BMP Potassium 4.2 mmol/L 3.5 - 5.1 01/23/2020 N [facility] BMP Chloride 107 mmol/L 98 - 107 01/23/2020 N [facility] CBC WBC 7.8 x10'3/microL 4.0 - 11.0 01/23/2020 N [facility] [place] CBC RBC 3.93 x10'6/microL 3.90 - 5.60 01/23/2020 N [facility] CBC Hgb 10.9 g/dL 12.0 - 16.0 01/23/2020 L [facility] CBC Hct 35 % 35 - 47 01/23/2020 N [facility] CBC MCV 90 fL 81 - 99 01/23/2020 N [facility] CBC MCH 28 pg 27 - 34 01/23/2020 N [facility] CBC MCHC 31 g/dL 30 - 36 01/23/2020 N [facility] CBC RDW 15.1 % - <=16.4 01/23/2020 N [facility] CBC Platelet 205 x10'3/microL 140 - 400 01/23/2020 N [facility] CBC MPV 10.5 fL 8.3 - 12.4 01/23/2020 N [facility] Renal Funct Index GFR (CKD-EPI) 71.7 mL/min/1.73 m2 >=60.0 01/22/2020 N GFR calculated based on CKD- EPI Creatinine Equation (2009).
Age(years) Average GFR
20-29 116 mL/min/1.73 m^2
30-39 107 mL/min/1.73 m^2
40-49 99 mL/min/1.73 m^2
50-59 93 mL/min/1.73 m^2
60-69 85 mL/min/1.73 m^2
70+ 75 mL/min/1.73 m^2

Acceptable GFR =>60 mL/min/1.73 m^2
Chronic Kidney Disease <60 mL/min/1.73 m^2
Kidney Failure <15 mL/min/1.73 m^2
[facility] Est CrCl (CG) Est CrCL (CG) 49 .5 mL/min 01/22/2020 NA Estimated Creatinine Clearance calculate d based on Cockcroft- Gault formula using:
Height 158
Weight 56
Estimated Creatinine Clearance Cockcroft Gault is utilized by the Pharmacy to assist in determining medication dosage based on kidney function. Multiple factors determine normal ranges, please contact the Pharmacy with questions.
[facility] [place] BMP CO2 24 mmol/L 22 - 29 01/22/2020 [facility] [place] BMP AGAP 11 mmol/L 3 - 16 01/22/2020 N [facility] BMP Glucose 110 mg/dL 70 - 100 01/22/2020 H [facility] BMP BUN 7 mg/dL 8 - 20 01/22/2020 L [facility] BMP Creatinine 0.8 mg/dL 0.7 - 1.2 01/22/2020 N The presence of ketone bodies can cause artificially high results in serum, plasma and urine.
[facility] [place] BMP Calcium 8.3 mg/dL 8.6 - 10.2 01/22/2020 L [facility] BMP Sodium 142 mmol/L 136 - 145 01/22/2020 N [facility] BMP Potassium 4.2 mmol/L 3.5 - 5.1 01/22/2020 N [facility] BMP Chloride 107 mmol/L 98 - 107 01/22/2020 N [facility] CBC WBC 10.7 x10'3/microL 4.0 - 11.0 01/22/2020 N [facility] CBC RBC 3.67 x10'6/microL 3.90 - 5.60 01/22/2020 L [facility] CBC Hgb 10.4 g/dL 12.0 - 16.0 01/22/2020 L [facility] [place] CBC Hct 34 % 35 - 47 01/22/2020 L [facility] [place] CBC MCV 92 fL 81 - 99 01/22/2020 N [facility] CBC MCH 28 pg 27 - 34 01/22/2020 N [facility] CBC MCHC 31 g/dL 30 - 36 01/22/2020 N [facility] [place] CBC RDW 15.4 % - <=16.4 01/22/2020 N [facility] CBC Platelet 213 x10'3/microL 140 - 400 01/22/2020 N [facility] CBC MPV 10.3 fL 8.3 - 12.4 01/22/2020 N [facility] Magnesium Magnesium 1.9 mg/dL 1.6 - 2.6 01/21/2020 N Critical High for OB Patients >=7.0 mg/d l.
[facility] BLOOD BANK ABORh RR Interp O POS 01/21/2020 [facility] BLOOD BANK ABORh O POS,O POS 01/21/2020 [facility] BLOOD BANK ABSC Gel Interp Negat alyssa
(01/21/20 10:50 AM) 01/21/2020 [facility] CHEMISTRY Magnesium 1.9 mg/dL 1.6 - 2.6 01/21/2020 [facility] CHEMISTRY Total Protein 6.2 g/ dL 6.6 - 8.7 01/21/2020 [facility] CHEMISTRY Albumin Level 3.8 g/ dL 3.5 - 5.2 01/21/2020 [facility] CHEMISTRY Bili Total 0.6 mg/dL 0.0 - 1.2 01/21/2020 [facility] CHEMISTRY Alk Phos 102 [iU]/d 40 - 130. 01/21/2020 [facility] CHEMISTRY AST 17 Units/L 0 - 40 01/21/2020 [facility] CHEMISTRY ALT(SGPT) 14 [iU]/d 0 - 33. 01/21/2020 [facility] HEMATOLOGY PT 14.0 s 11.5 - 15.0 01/21/2020 [facility] HEMATOLOGY INR 1.1 01/21/2020 [facility] HEMATOLOGY Neutrophils % 60 % 44 - 76 01/21/2020 [facility] HEMATOLOGY Immature Granulocytes % 0 % 0 - 0 01/21/2020 [facility] HEMATOLOGY Lymphocytes % 27 % 13 - 43 01/21/2020 [facility] HEMATOLOGY Monocytes % 11 % 0 - 13 01/21/2020 [facility] HEMATOLOGY Eosinophils % 1 % 0 - 7 01/21/2020 [facility] HEMATOLOGY Basophils % 0 % 0 - 3 01/21/2020 [facility] HEMATOLOGY Neutrophils Abs 5.5 x 10'3/microL 1.4 - 7.2103 01/21/2020 [facility] HEMATOLOGY Immature Grans Abs 0.0 x 10'3/microL 0.0 - 0.0103 01/21/2020 [facility] HEMATOLOGY Lymphocytes Abs 2.5 x 10'3/microL 1.2 - 3.4103 01/21/2020 [facility] HEMATOLOGY Monocytes Abs 1.1 x 10'3/microL 0.1 - 0.6103 01/21/2020 [facility] HEMATOLOGY Eosinophils Abs 0.1 x 10'3/microL 0.0 - 0.5103 01/21/2020 [facility] HEMATOLOGY Basophils Abs 0.0 x 10'3/microL 0.0 - 0.2103 01/21/2020 [facility] ABORh Recheck w Reverse ABORh RR Int erp O POS 01/21/2020 NA [facility] ABSC 2 Cell Gel ABSC Gel Interp NEG 01/21/2020 N [facility] CMP Sodium 149 mmol/L 136 - 145 01/21/2020 H [facility] CMP Potassium 2.8 mmol/L 3.5 - 5.1 01/21/2020 CRIT [facility] CMP Chloride 104 mmol/L 98 - 107 01/21/2020 N [facility] CMP AGAP 17 mmol/L 3 - 16 01/21/2020 H [facility] Renal Funct Index GFR (CKD-EPI) 60.8 mL/min/1.73 m2 >=60.0 01/21/2020 N GFR calculated based on CKD- EPI Creatinine Equation (2009).
Age(years) Average GFR
20-29 116 mL/min/1.73 m^2
30-39 107 mL/min/1.73 m^2
40-49 99 mL/min/1.73 m^2
50-59 93 mL/min/1.73 m^2
60-69 85 mL/min/1.73 m^2
70+ 75 mL/min/1.73 m^2

Acceptable GFR =>60 mL/min/1.73 m^2
Chronic Kidney Disease <60 mL/min/1.73 m^2
Kidney Failure <15 mL/min/1.73 m^2
[facility] Est CrCl (CG) Est CrCL (CG) 43 .2 mL/min 01/21/2020 NA Estimated Creatinine Clearance calculate d based on Cockcroft- Gault formula using:
Height 158
Weight 56
Estimated Creatinine Clearance Cockcroft Gault is utilized by the Pharmacy to assist in determining medication dosage based on kidney function. Multiple factors determine normal ranges, please contact the Pharmacy with questions.
[facility] CMP CO2 28 mmol/L 22 - 29 01/21/2020 N [facility] CMP Glucose 87 mg/dL 70 - 100 01/21/2020 N [facility] CMP BUN 11 mg/dL 8 - 20 01/21/2020 N [facility] CMP Creatinine 0.9 mg/dL 0.7 - 1.2 01/21/2020 N The presence of ketone bodies can cause artificially high results in serum, plasma and urine.
[facility] CMP Calcium 9.0 mg/dL 8.6 - 10.2 01/21/2020 N [facility] CMP Total Protein 6.2 g/dL 6.6 - 8.7 01/21/2020 L [facility] CMP Albumin Level 3.8 g/dL 3.5 - 5.2 01/21/2020 N [facility] CMP Bili Total 0.6 mg/dL 0.0 - 1.2 01/21/2020 N Samples containing indocyanine green mus t not be measured.
No significant interference from immunoglobulins up to a concentration of 28 g/L (187 umol/L).
[facility] CMP Alk Phos 102 Inter. U nits/L 40 - 130 01/21/2020 N [facility] [place] CMP AST 17 Units/L 0 - 40 01/21/2020 N [facility] [place] CMP ALT(SGPT) 14 Inter. Un its/L 0 - 33 01/21/2020 N [facility] [place] Protime PT 14.0 second 11.5 - 15.0 01/21/2020 N [facility] [place] Protime INR 1.1 01/21/2020 NA [facility] [place] Auto Diff Neutrophils 60 % 44 - 76 01/21/2020 N [facility] [place] Auto Diff Lymphocytes % 27 % 13 - 43 01/21/2020 N [facility] [place] Auto Diff Monocytes % 11 % 0 - 13 01/21/2020 N [facility] [place] Auto Diff Eosinophils % 1 % 0 - 7 01/21/2020 N [facility] [place] Auto Diff Basophils % 0 % 0 - 3 01[facility]21[facility] [facility] [place] [facility] Immature Granulocytes % 0 % 0 - 0 01/21/[address] [facility] [place] Auto Diff Neutro Absolute 5.5 x1 0'3/microL 1.4 - 7.2 01/21/2020 N [facility] [place] Auto Diff Lymph Absolute 2.5 x1 0'3/microL 1.2 - 3.4 01/21/2020 N [facility] [place] Auto Diff [place] Absolute 1.1 x1 0'3/microL 0.1 - 0.6 01/21/[address] [facility] [place] Auto Diff Eos Absolute 0.1 x1 0'3/microL 0.0 - 0.5 01/21/2020 N [facility] [place] Auto Diff Basophil Absolute 0.0 x1 0'3/microL 0.0 - 0.2 01/21/2020 N [facility] [place] Auto Diff Immature Grans Abs 0.0 x1 0'3/microL 0.0 - 0.0 01/21/2020 N [facility] [place] CBC/Diff WBC 9.3 x10'3/micro L 4.0 - 11.0 01/21/2020 N [facility] [place] CBC/Diff RBC 4.20 x10'6/micr oL 3.90 - 5.60 01/21/2020 N [facility] CBC/Diff Hgb 11.7 g/dL 12.0 - 16.0 01/21/2020 L [facility] CBC/Diff Hct 38 % 35 - 47 01/21/2020 N [facility] CBC/Diff MCV 90 fL 81 - 99 01/21/2020 N [facility] CBC/Diff MCH 28 pg 27 - 34 01/21/2020 N [facility] CBC/Diff MCHC 31 g/dL 30 - 36 01/21/2020 N [facility] CBC/Diff RDW 15.5 % - <=16.4 01/21/2020 N [facility] CBC/Diff Platelet 300 x10 '3/microL 140 - 400 01/21/2020 N [facility] CBC/Diff MPV 10.0 fL 8.3 - 12.4 01/21/2020 N [facility] Pathology Reports No Data Provided for This [...] agreed to proceed. Surgeon Mati Sparks MD [facility] Counselor(s) Hemalatha Purdy/Ilene Camejo Findings 1) severely attenuated [...] mm robotic trocars and a 12 mm podiatrist assistant trocar. All were placed after infiltration [...] A 7 x 20 cm piece of [employer] biologic mesh was then cut to size [...] needle counts were correct. [employer] biologic mesh Estimated Blood Loss 25 cc Patient Condition/Disposition Stable 01/21/2020 [facility] [place] Discharge Summaries Results Value Date Source Discharge [...] Up Location: ISABEL ESCALANTE, MATI Delgadillo Address: [address] [place] [address], [place], [address] Follow up by: Follow up within: Details: [...] if needed as needed for pain 01/23/2020 [facility] History and Physicals No Data Provided for This Section Vital Signs Vital Sign Value Date Comments Source Heart Rate 80 bpm 01/23/2020 [facility] Respiratory Rate 17 br/min 01/23/2020 [employer] [employer] [facility] BP Location Arm, right ( 0 7:22 AM) 01/23/2020 [facility] Pulse Equipment SPO2 (01/23/20 7:22 AM) 01/23/2020 [facility] Temperature 98 [degF] 01/23/2020 [facility] Temp Method Oral (01/23/20 7:21 AM) 01/23/2020 [facility] Inet NIBP Systolic 149 mm[Hg] 01/23/2020 [employer] [facility] Inet NIBP Diastolic 86 mm[Hg] 01/23/2020 [employer] [facility] NIBP MAP 101 mm[Hg] 01/23/2020 [facility] NIBP MAP Calc 109 mm[Hg] 01/23/2020 [employer] [facility] Heart Rhythm Interpretation Si nus/atrial rhythm (01/21/20 3:40 PM) 01/21/2020 [facility] NIBP Method Automatic (01/21/20 3:40 PM) 01/21/2020 [facility] BP Cuff Size Large (01/21/20 3: 40 PM) 01/21/2020 [facility] NIBP Alarms set and on Yes ( 3:40 PM) 01/21/2020 [facility] Vital Signs Status/Type Pre Pr ocedure (01/21/20 11:00 AM) 01/21/2020 [facility] Defibrilator Vest Yes (01/21/20 11:00 AM) 01/21/2020 [facility] Encounters Location Location Details Encounter Type Encounter Number Reason For Visit Attending Provider ADM Date DC Date Status Source [id number] RECTAL PROLAPSE MATI SPARKS MD 01/21/2020 01/23/2020 Active [facility] Procedures No Data Provided for This Section Plan of Care No Data Provided for This Section Social History Social History Date Source Social History TypeResponse 01/23/2020 [facility] [place] Assessment and Plan No Data Provided for This Section Family History No Data Provided for This Section Advance Directives No Data Provided for This Section Functional Status No Data Provided for This Section
--- OUTSIDE RECORDS SUMMARY | 2020-06-13 09:21 | XMS REPORT | Clinical Summary ---
Author Author [facility] Organization [facility] Address Unknown Phone Unavailable Care Team Providers Care Room Manager Name Role Phone Reyes Gao MD Unavailable Reyes Gao MD PCP Source Comments Some departments are not documenting in the electronic medical record. If you d o not see the information that you expected, contact Release of Information in [facility] [employer] Information Management department at [phone] for further assistan ce in locating additional records.[facility] Allergies Comments Active Allergy Reactions Severity [...] loss, bilateral Active calcitonin salmon Apply 1 [place] 0 (MIACALCIN) 200 to one unit/actuation nasal [...] Comments Vital Sign 190/102 10/31/2016 2:04 PM GLOBAL IMPLEMENTATION MANAGER Blood Pressure 71 10/31/2016 2:04 PM GLOBAL IMPLEMENTATION MANAGER Pulse - - Temperature - - Respiratory Rate - - Oxygen Saturation - - Inhaled Oxygen Concentration 75.3 kg (166 lb) 10/31/2016 2:04 PM GLOBAL IMPLEMENTATION MANAGER Weight 162.6 cm (5' 4") 10/31/2016 2:04 PM GLOBAL IMPLEMENTATION MANAGER Height 28.49 10/31/2016 2:04 PM GLOBAL IMPLEMENTATION MANAGER Body Mass Index Plan of Treatment Health [...] 2010- STATE Present HEALTH Advance Directives Patient Parish Worker Explanation Type Date Recorded Advance 01/25/2016 7:16 AM Directive/DPOA
--- OUTSIDE RECORDS SUMMARY | 2020-06-13 09:21 | XMS REPORT | Encounter Summary ---
Author Author Formerly [facility] Address Unknown Phone Unavailable Care Team Providers Care Portrait Painter Name Role Phone PCP Unavailable Encounter Details Care Team Description Date Type Department Teja Telles MD [address] [facility] [address] [place] [address] [phone] 10/04/1998 [facility] Encounter [address] [place] [address] Social History Date Tobacco Use Types Packs/Day [...] Routine 10/04/1998 MICROSCOPIC REVIEW, IF 2:14 PM CATEGORY DEVELOPMENT ANALYST INDICATED) URIC ACID Routine 10/04/1998 2:14 PM CATEGORY DEVELOPMENT ANALYST THYROID STIMULATING Routine 10/04/1998 HORMONE 2:14 PM CATEGORY DEVELOPMENT ANALYST ERYTHROCYTE SEDIMENTATION Routine 10/04/1998 RATE 2:14 PM CATEGORY DEVELOPMENT ANALYST CREATINE KINASE Routine 10/04/1998 2:14 PM CATEGORY DEVELOPMENT ANALYST COMPREHENSIVE METABOLIC Routine 10/04/1998 PANEL 2:14 PM CATEGORY DEVELOPMENT ANALYST COMPLETE BLOOD COUNT Routine 10/04/1998 2:14 PM CATEGORY DEVELOPMENT ANALYST RUBA QUALITATIVE Routine 10/04/1998 2:14 PM CATEGORY DEVELOPMENT ANALYST documented in this encounter Results * Comprehensive Metabolic Panel (10/04/1998 2:14 PM CATEGORY DEVELOPMENT ANALYST) Albumin 4.1 3.6 - 4.6 G/DL SUNQUEST [...] MEQ/L SUNQUEST Specimen Blood Performing Organization Address [facility] one Number [id number] [phone] SUNQUEST * Complete Blood Count (10/04/1998 2:14 PM CATEGORY DEVELOPMENT ANALYST) WBC 7.0 4.0 - 11.0 TH/UL SUNQUEST [...] TH/UL SUNQUEST Specimen Blood Performing Organization Address [facility] one Number [facility] [id number] [phone] SUNQUEST * Urinalysis (10/04/1998 2:14 PM CATEGORY DEVELOPMENT ANALYST) Appearance, DK JUAN (A) SUNQUEST Urine Specific >=1.030 (A) <1.030 SUNQUEST [place], UA PH Urine 6.0 5.0 - 8.0 SUNQUEST Hemoglobin NEGATIVE NEGATIVE SUNQUEST Urine Ketones Urine TRACE (A) NEGATIVE SUNQUEST Glucose Urine NEGATIVE NEGATIVE SUNQUEST Protein Urine TRACE (A) NEGATIVE SUNQUEST Qual Leukocyte NEGATIVE NEGATIVE SUNQUEST Esterase Urobilinogen NEGATIVE NEGATIVE SUNQUEST Urine Bilirubin Urine NEGATIVE NEGATIVE SUNQUEST Specimen Urine Performing Organization Address [facility] one Number RL [id number] [phone] SUNQUEST * RUBA Qualitative (10/04/1998 2:14 PM CATEGORY DEVELOPMENT ANALYST) RUBA Qualitative NEGATIVE NEGATIVE SUNQUEST Specimen Blood Performing Organization Address [facility] one Number [facility] [id number] [phone] SUNQUEST * Thyroid Stimulating Hormone (10/04/1998 2:14 PM CATEGORY DEVELOPMENT ANALYST) Thyroid 0.68 0.50 - 5.00 UIU/ML SUNQUEST Stimulating Hormone Specimen Blood Performing Organization Address [facility] one Number [facility] [id number] [phone] SUNQUEST * Erythrocyte Sedimentation Rate (10/04/1998 2:14 PM CATEGORY DEVELOPMENT ANALYST) Sed Rate 14 0 - 20 MM/HR SUNQUEST Specimen Blood Performing Organization Address [facility] one Number [facility] [id number] [phone] SUNQUEST * Uric Acid (10/04/1998 2:14 PM CATEGORY DEVELOPMENT ANALYST) Uric Acid 3.2 2.5 - 7.8 MG/DL SUNQUEST Specimen Blood Performing Organization Address [facility] one Number [facility] [id number] [phone] SUNQUEST * Creatine Kinase (10/04/1998 2:14 PM CATEGORY DEVELOPMENT ANALYST) Creatine Kinase 68 30 - 225 IU/L SUNQUEST Specimen Blood Performing Organization Address [facility] one Number [facility] [address] [phone] SUNQUEST documented in this encounter Visit Diagnoses Not on filedocumented in this encounter
--- OUTSIDE RECORDS SUMMARY | 2020-06-13 09:21 | XMS REPORT | Clinical Summary ---
Author Author [facility] Organization [facility] Address Unknown Phone Unavailable Care Team Providers Care Broadcast Checker Name Role Phone PCP Unavailable Allergies Not [...]
--- OUTSIDE RECORDS SUMMARY | 2020-06-13 09:28 | XMS REPORT | Continuity of Care Document ---
Demographics Preferred Language Unknown Marital Status Unknown Gnosticist Affiliation Unknown Race Unknown Ethnic Group Unknown Author Organization Unknown Address Unknown Phone Unavailable Allergies Active Description Code Type Severity Reaction Onset Reported/Identified Relationship to Patient Clinical Status Yes SULFAMETHOXAZOLE-TRIMETHOPRIM SULFAMETHOXAZOLE-TRI SEVERE Yes SULFAMETHOXAZOLE-TRIMETHOPRIM SEVERE DERMATOLOGICAL - NILS Yes SULFAMETHOXAZOLE-TRIMETHOPRIM SEVERE SEVERE Yes sulfa drug Drug Allergy 09/19/2011 Yes Sulfa (Sulfonamide Antibiotics) [id number] Drug Allergy Unknown N/A 019 Medications [...] SALINE W/KCL 40MEQ IV (SALINE IV BAG W/[id number]) MLS 01/13/2018 01/20/2018 CONTINUOUSEVERY 0 Hour LACTOBACILLUS BULGARIS TAB (LACTINEX BULGA RIS) tab 01/13/2018 01/23/2018 QID&0800,1200,1700,2200 METOPROLOL TAB 25 MG (LOPRESSOR) MG 01/13/2018 01/13/2018 ONCE&1215 NORMAL SALINE W/KCL 40MEQ IV (SALINE IV BAG W/[id number]) MLS 01/13/2018 01/20/2018 CONTINUOUSEVERY 0 Hour NORMAL SALINE W/KCL 40MEQ IV (SALINE IV BAG W/[id number]) MLS 01/14/2018 01/21/2018 CONTINUOUSEVERY 0 Hour MESALAMINE [...] P S CHIZO AFFECTIVE 07/28/2010 ESPITIA ROOSEVELT [facility] 295.70 P SCHIZO AFFECTIVE 07/28/2010 ESPITIA ROOSEVELT [facility] 295.70 P SCHIZO AFFECTIVE 07/28/2010 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 07/28/2010 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 07/28/2010 ANDER GRANT DO 295.70 P SCHIZO AFFECTIVE 07/28/2010 ESPITIA SOLVENT PROCESS EXTRACTOR OPERATOR, [facility] 295.70 P SCHIZO AFFECTIVE 07/28/2010 ESPITIA SOLVENT PROCESS EXTRACTOR OPERATOR, [facility] 295.70 P SCHIZO AFFECTIVE 07/28/2010 ESPITIA SOLVENT PROCESS EXTRACTOR OPERATOR, [facility] 295.70 P SCHIZO AFFECTIVE 07/28/2010 ESPIITA SOLVENT PROCESS EXTRACTOR OPERATOR, [facility] 295.70 P SCHIZO AFFECTIVE 07/28/2010 ESPITIA SOLVENT PROCESS EXTRACTOR OPERATOR, [facility] 295.70 P SCHIZO AFFECTIVE 07/28/2010 ESPITIA SOLVENT PROCESS EXTRACTOR OPERATOR, [facility] 295.70 P SCHIZO AFFECTIVE 07/28/2010 ESPITIA SOLVENT PROCESS EXTRACTOR OPERATOR, [facility] 295.70 P SCHIZO AFFECTIVE 07/28/2010 MICHELLE [...] 09/23/2010 Ot 414.01 COR ONARY ATHEROSCLEROSIS OF [place] CORON 09/23/2010 Ot 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 [...] 09/26/2010 Ot 414.01 COR ONARY ATHEROSCLEROSIS OF [place] CORON 09/26/2010 Ot 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 [...] V65.42 COUNSELING - SMOKING CESSATION 11/06/2011 ESPITIA SOLVENT PROCESS EXTRACTOR OPERATOR, SAMARA BANGURAH 465.9 UPPER RESPIRATORY INFECTION 11/06/2011 ESPITIA SOLVENT PROCESS EXTRACTOR OPERATOR, SAMARA BANGURAH V65.42 COUNSELING - SMOKING CESSATION 11/06/2011 MICHELLE COLEY M 465.9 UPPER RESPIRATORY INFECTION 11/06/2011 MICHELLE COLEY V65.42 COUNSELING - SMOKING CESSATION 11/10/2011 466.0 BRON CHITIS, ACUTE 11/10/2011 ESPITIA SOLVENT PROCESS EXTRACTOR OPERATOR, SAMARA KEVIN 466.0 BRONCHITIS, ACUTE 11/10/2011 ESPITIA SOLVENT PROCESS EXTRACTOR OPERATOR, SAMARA KEVIN 466.0 BRONCHITIS, ACUTE 11/10/2011 466.0 BRON CHITIS, ACUTE 11/10/2011 466.0 BRON CHITIS, ACUTE 11/10/2011 ANDER GRANT DO 466.0 BRONCHITIS, ACUTE 11/10/2011 ESPITIA SOLVENT PROCESS EXTRACTOR OPERATOR, SAMARA KEVIN 466.0 BRONCHITIS, ACUTE 11/10/2011 ESPITIA SOLVENT PROCESS EXTRACTOR OPERATOR, SAMARA KEVIN 466.0 BRONCHITIS, ACUTE 11/10/2011 ESPITIA SOLVENT PROCESS EXTRACTOR OPERATOR, SAMARA KEVIN 466.0 BRONCHITIS, ACUTE 11/10/2011 ESPITIA SOLVENT PROCESS EXTRACTOR OPERATOR, SAMARA KEVIN 466.0 BRONCHITIS, ACUTE 11/10/2011 ESPITIA SOLVENT PROCESS EXTRACTOR OPERATOR, SAMARA KEVIN 466.0 BRONCHITIS, ACUTE 11/10/2011 ESPITIA SOLVENT PROCESS EXTRACTOR OPERATOR, SAMARA KEVIN 466.0 BRONCHITIS, ACUTE 11/10/2011 ESPITIA SOLVENT PROCESS EXTRACTOR OPERATOR, SAMARA KEVIN 466.0 BRONCHITIS, ACUTE 11/10/2011 MICHELLE COLEY M 466.0 BRONCHITIS, ACUTE 02/29/2012 Ot 300.00 ANX IETY STATE NOS 02/29/2012 Ot 714.0 RHEU MATOID ARTHRITIS 02/29/2012 Ot 729.5 PAIN IN LIMB 06/03/2013 ANDER GRANT DO 894.0 WOUND OPEN LOWER LIMB 06/03/2013 ESPITIA SOLVENT PROCESS EXTRACTOR OPERATORSAMARA Aldrich KEVIN 894.0 WOUND OPEN LOWER LIMB 06/03/2013 ESPITIA SOLVENT PROCESS EXTRACTOR OPERATOR, SAMARA KEVIN 894.0 WOUND OPEN LOWER LIMB 06/03/2013 ESPITIA SOLVENT PROCESS EXTRACTOR OPERATOR, SAMARA KEVIN 894.0 WOUND OPEN LOWER LIMB 06/03/2013 ESPITIA SOLVENT PROCESS EXTRACTOR OPERATOR SAMARA KEVIN 894.0 WOUND OPEN LOWER LIMB 06/03/2013 ESPITIA SOLVENT PROCESS EXTRACTOR OPERATOR SAMARA KEVIN 894.0 WOUND OPEN LOWER LIMB 06/03/2013 ESPITIA SOLVENT PROCESS EXTRACTOR OPERATOR, SAMARA BROWN 894.0 WOUND OPEN LOWER LIMB 06/03/2013 ESPITIA SOLVENT PROCESS EXTRACTOR OPERATOR, SAMARA BROWN 894.0 WOUND OPEN LOWER LIMB 06/03/2013 MICHELLE COLEY 894.0 WOUND OPEN LOWER LIMB 09/15/2013 ESPITIA SOLVENT PROCESS EXTRACTOR OPERATOR, SAMARA BANGURAH 294.20 DEMENTIA UNSPECIFIED WITHOUT BEHAVIORAL DISTURBANCE 09/15/2013 ESPITIA SOLVENT PROCESS EXTRACTOR OPERATOR, SAMARA KEVIN 294.20 DEMENTIA UNSPECIFIED WITHOUT BEHAVIORAL DISTURBANCE 09/15/2013 ESPITIA SOLVENT PROCESS EXTRACTOR OPERATOR, SAMARA KEVIN 294.20 DEMENTIA UNSPECIFIED WITHOUT BEHAVIORAL DISTURBANCE 09/15/2013 ESPITIA SOLVENT PROCESS EXTRACTOR OPERATOR, SAMARA KEVIN 294.20 DEMENTIA UNSPECIFIED WITHOUT BEHAVIORAL DISTURBANCE 09/15/2013 ESPITIA SOLVENT PROCESS EXTRACTOR OPERATOR, SAMARA BANGURAH 294.20 DEMENTIA UNSPECIFIED WITHOUT BEHAVIORAL DISTURBANCE 09/15/2013 ESPITIA SOLVENT PROCESS EXTRACTOR OPERATOR, SAMARA BANGURAH 294.20 DEMENTIA UNSPECIFIED WITHOUT BEHAVIORAL DISTURBANCE 09/15/2013 ESPITIA SOLVENT PROCESS EXTRACTOR OPERATOR, SAMARA BROWN 294.20 DEMENTIA UNSPECIFIED WITHOUT BEHAVIORAL DISTURBANCE 09/15/2013 RONALDMICHELLE ORTIZ M 294.20 DEMENTIA UNSPECIFIED WITHOUT BEHAVIORAL DISTURBANCE 09/30/2014 RONALD INFRASTRUCTURE DIRECTOR, MICHELLE M 300.00 AN ANXIETY UNSPEC 09/30/2014 [...] E Ot V57.8 9 06/18/2015 SANGEETA ESCALANTE, MKUUL E Ot 244.9 06/18/2015 SANGEETA ESCALANTE, MUKUL [...] Ot 714.0 RHEUMATOID ARTHRITIS 06/26/2015 SANGEETA ESCALANTE, MUUKL E Ot 726.1 0 BURSAE TENDONS DIS [...] W N17.9 ACUTE KIDNEY FAILURE, UNSPECIFIED 01/13/2017 Oibe, Marie-Miranda W 401.0 01/13/2017 Obie, Marie-Miranda W [...] 11/17/2017 Flynntammy Jean A 276.51 DEHYDRATION 11/17/2017 Jaen Wallace W 714.0 RHEUMATOID ARTHRITIS 11/17/2017 Jean [...] K52.9 NONINFECTIVE GASTROENTERITIS AND COLITIS, UNSPECIFIED 01/14/2018 Ebnoit, Lorena W R19.7 DIARRHEA, UNSPECIFIED 01/14/2018 Benoit, [...] 357.9 01/17/2018 Benoit, Lorena W 401.0 01/17/2018 [facility], Lorena W 558.9 OTHER AND UNSPECIFIED NONINFECTIOUS GASTROENTERITIS AND COLITIS 01/17/2018 [facility], Lorena W 714.0 01/17/2018 [facility], Lorena W 719.45 01/17/2018 [facility], Lorena W 787.91 DIARRHEA 01/17/2018 [facility], Lorena W 791.9 01/17/2018 [facility], Lorena W A49.3 MYCOPLASMA INFECTION, UNSPECIFIED SITE 01/17/2018 [facility], Lorena W B96.0 01/17/2018 [facility], Lorena W E03.9 HYPOTHYROIDISM, UNSPECIFIED 01/17/2018 [facility], Lorena W E78.5 01/17/2018 [facility], Lorena A E86.0 DEHYDRATION 01/17/2018 [facility], Lorena W E87.6 HYPOKALEMIA 01/17/2018 [facility], Lorena W F32.9 01/17/2018 [facility], Lorena W G62.9 POLYNEUROPATHY, UNSPECIFIED 01/17/2018 [facility], Lorena W I10 01/17/2018 [facility], Lorena W K52.9 NONINFECTIVE GASTROENTERITIS AND COLITIS, UNSPECIFIED 01/17/2018 [facility], Lorena W M06.9 01/17/2018 [facility], Lorena W M25.551 PAIN IN RIGHT HIP 01/17/2018 [facility], Lorena W R19.7 DIARRHEA, UNSPECIFIED 01/17/2018 [facility], Lorena W R82.99 OTHER ABNORMAL FINDINGS [...] PRIMARY, INVOLVING SHOULDER REGION 07/26/2018 W M19.012 NE IMARY OSTEOARTHRITIS, LEFT SHOULDER 08/01/2018 Jean Wallace [...] PRIMARY, INVOLVING SHOULDER REGION 08/05/2018 W M19.012 NE IMARY OSTEOARTHRITIS, LEFT SHOULDER 08/16/2018 Gianni Gibson [...] Z90.89 ACQUIRED ABSENCE OF OTHER ORGANS 09/28/2018 EDONNA MOBLEY APRN Ot Z96.612 PRESENCE OF LEFT [...] OTHER SPECIFIED POSTPROCEDURAL STATES 01/23/2019 Ot 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, U 01/23/2019 Ot K44.9 DIAP HRAGMATIC HERNIA WITHOUT OBSTRUCTION 01/23/2019 Ot Z87.891 PE RSONAL HISTORY OF NICOTINE DEPENDENCE 01/30/2019 Ot 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, U 01/30/2019 Ot [...] Z87.01 PERSONAL HISTORY OF PNEUMONIA (RECURRENT 03/05/2019 DAYTON LORENA Ot Z87.19 PERSONAL HISTORY OF OTHER DISEASES OF 03/05/2019 MELINDA LORENA Ot Z87.891 PERSONAL HISTORY OF NICOTINE DEPENDENCE 03/05/2019 [facility] Z88.2 ALLERGY STATUS TO SULFONAMIDES STATUS 03/05/2019 [facility] Ot Z90.49 ACQUIRED ABSENCE OF OTHER SPECIFIED PART 03/05/2019 MELINDA LORENA Ot Z90.710 ACQUIRED ABSENCE OF BOTH CERVIX AND UTER 03/05/2019 [facility] Ot Z90.89 ACQUIRED ABSENCE OF OTHER ORGANS 03/05/2019 [facility] Ot Z98.890 OTHER SPECIFIED POSTPROCEDURAL STATES 03/07/2019 MELINDA LORENA Ot E03.9 HYPOTHYROIDISM, UNSPECIFIED 03/07/2019 MELINDA DOTRISTINA K Ot I10 ESSENTIAL (PRIMARY) HYPERTENSION 03/07/2019 MELINDA LORENA LEDEZMA Ot K21.9 GASTRO-ESOPHAGEAL REFLUX DISEASE WITHOUT 03/07/2019 [facility] Miriam Ot K29.70 GASTRITIS, UNSPECIFIED, WITHOUT BLEEDING 03/07/2019 [facility] Miriam Ot K44.9 DIAPHRAGMATIC HERNIA WITHOUT OBSTRUCTION 03/07/2019 [facility] Ot M06.9 RHEUMATOID ARTHRITIS, UNSPECIFIED 03/07/2019 [facility] Miriam Ot M81.0 AGE- RELATED OSTEOPOROSIS W/O [...] OTHER INTERVERTEBRAL DISC DEGENERATION, 05/10/2019 Ot 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, U 05/10/2019 Ot [...] ABSENCE OF BOTH CERVIX AND UTER 05/24/2019 KIRTSIN LORENZO MD Ot E03.9 HYPOTHYROIDISM, UNSPECIFIED 05/24/2019 [...] LORENZO MD Ot M79.7 FIBROMYALGIA 05/24/2019 KIRSTIN LORNEZO MD, Ot M81.0 AGE-RELATED OSTEOPOROSIS W/O CURRENT [...] Ot K44.9 DIAPHRAGMATIC HERNIA WITHOUT OBSTRUCTION 05/28/2019 [place] L[place] LEDEZMA Ot K58.9 IRRITABLE BOWEL SYNDROME WITHOUT DIARRHE 05/28/2019 [place] L[place] LEDEZMA Ot K59.00 CONSTIPATION, UNSPECIFIED 05/28/2019 [place] LEDEZMA Ot M06.9 RHEUMATOID ARTHRITIS, UNSPECIFIED 05/28/2019 [place] LEDEZMA Ot M79.7 FIBROMYALGIA 05/28/2019 [place] LEDEZMA Ot M81.0 AGE- RELATED OSTEOPOROSIS W/O CURRENT PAT 05/28/2019 [place] L[place] LEDEZMA Ot R10.9 UNSPECIFIED ABDOMINAL PAIN 05/28/2019 MELINDA LORENA LEDEZMA Ot Z87.01 PERSONAL HISTORY OF PNEUMONIA (RECURRENT 05/28/2019 MELINDA LORENA Pineda Ot Z87.19 PERSONAL HISTORY OF OTHER DISEASES OF TH 05/28/2019 MELINDA LORENA Pineda Ot Z87.891 PERSONAL HISTORY OF NICOTINE DEPENDENCE 05/28/2019 [facility] Pineda Ot Z88.2 ALLERGY STATUS TO SULFONAMIDES STATUS 05/28/2019 [place] L[place]NA Pineda Ot Z90.710 ACQUIRED ABSENCE OF [...] OTHER INTERVERTEBRAL DISC DEGENERATION, 06/21/2019 Ot J44.9 FORK TRUCK DRIVER JERMANIE OBSTRUCTIVE PULMONARY DISEASE, U 06/21/2019 Ot K44.9 [...] OTHER INTERVERTEBRAL DISC DEGENERATION, 06/23/2019 Ot 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, U 06/23/2019 Ot [...] OTHER INTERVERTEBRAL DISC DEGENERATION, 09/17/2019 Ot 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, U 09/17/2019 Ot [...] M25.5 51 PAIN IN RIGHT HIP 10/22/2019 ERNU CHRISTENSEN MD Ot 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, LUMBAR REGIO 10/22/2019 RENU CHRISTENSEN MD Ot 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, 10/22/2019 Ot 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 52 BUSINESS OFFICE DIRECTOR (CURRENT) USE OF SYSTEMIC STER 12/24/2019 KIRSTIN [...] GREG ESCALANTE, KIRSTIN Villeda Ot Z79. 52 MCFP (CURRENT) USE OF SYSTEMIC STER 12/28/2019 KIRSTIN [...] .9 ERYTHEMATOUS CONDITION, UNSPECIFIED 12/29/2019 DEONNA MOBLEY SOLVENT PROCESS EXTRACTOR OPERATOR Ot Z87.891 PERSONAL HISTORY OF NICOTINE DEPENDENCE 12/29/2019 DEONNA MOBLEY SOLVENT PROCESS EXTRACTOR OPERATOR Ot Z88 .2 ALLERGY STATUS TO SULFONAMIDES STATUS 01/06/2020 DEONNA MOBLEY APRN Ot E03 .9 HYPOTHYROIDISM, UNSPECIFIED 01/06/2020 DEONNA MOBLEY APRN Ot E78.00 PURE HYPERCHOLESTEROLEMIA, UNSPECIFIED 01/06/2020 MOBLEY, DEONNA Villeda APRN Ot F31 .9 BIPOLAR DISORDER, UNSPECIFIED 01/06/2020 MOBLEY, DEONNA Villeda APRN Ot F41 .9 ANXIETY DISORDER, UNSPECIFIED 01/06/2020 DEONNA MOBLEY SOLVENT PROCESS EXTRACTOR OPERATOR Ot I10 ESSENTIAL (PRIMARY) HYPERTENSION 01/06/2020 ITZ, DEONNA Villeda APRN Ot J44 .9 CHRONIC OBSTRUCTIVE PULMONARY DISEASE, U 01/06/2020 DEONNA MOBLEY APRN Ot K62.89 OTHER SPECIFIED DISEASES OF ANUS AND REC 01/06/2020 DEONNA MOBLEY APRN Ot Z79.52 [facility] (CURRENT) USE OF SYSTEMIC STER 01/06/2020 DEONNA MOBLEY SOLVENT PROCESS EXTRACTOR OPERATOR Ot Z85.41 PERSONAL HISTORY OF MALIGNANT NEOPLASM O 01/06/2020 DEONNA MOBLEY SOLVENT PROCESS EXTRACTOR OPERATOR Ot Z87.891 PERSONAL HISTORY OF NICOTINE DEPENDENCE 01/06/2020 ITZ, DEONNA Villeda SOLVENT PROCESS EXTRACTOR OPERATOR Ot Z88 .2 ALLERGY STATUS TO SULFONAMIDES STATUS 01/07/2020 EDILSON, BLU CORPORATE SAFETY DIRECTOR Ot E03.9 HYPOTHYROIDISM, UNSPECIFIED 01/07/2020 EDILSON, BLU CORPORATE SAFETY DIRECTOR Ot E78.00 PURE HYPERCHOLESTEROLEMIA, UNSPECIFIED 01/07/2020 EDILSON, BLU CORPORATE SAFETY DIRECTOR Ot F31.9 BIPOLAR DISORDER, UNSPECIFIED 01/07/2020 EDILSON, BLU CORPORATE SAFETY DIRECTOR Ot F41.9 ANXIETY DISORDER, UNSPECIFIED 01/07/2020 EDILSON, BLU CORPORATE SAFETY DIRECTOR Ot I10 ESSENTIAL (PRIMARY) HYPERTENSION 01/07/2020 EDILSON, BLU CORPORATE SAFETY DIRECTOR Ot J44.9 CHRONIC OBSTRUCTIVE PULMONARY DISEASE, U 01/07/2020 EDILSON, BLU CORPORATE SAFETY DIRECTOR Ot M06.9 RHEUMATOID ARTHRITIS, UNSPECIFIED 01/07/2020 EDILSON, BLU CORPORATE SAFETY DIRECTOR Ot M79.89 OTHER SPECIFIED SOFT TISSUE DISORDERS 01/07/2020 EDILSON, BLU CORPORATE SAFETY DIRECTOR Ot Z79.52 [facility]FP (CURRENT) USE OF SYSTEMIC STER 01/07/2020 EDILSON, BLU CORPORATE SAFETY DIRECTOR Ot Z85.41 PERSONAL HISTORY OF MALIGNANT NEOPLASM O 01/07/2020 EDILSON LBU EUN Ot Z87.891 PERSONAL HISTORY OF NICOTINE [...] STEPH DAILY Ot Y92.[address] [facility] (PRIVATE 01/11/2020 STEPH DAILY Ot Z85.41 [...] STEPH DAILY Ot Y92.[address] IN [facility] (PRIVATE 01/16/2020 STEPH DAILY Ot Z85.41 [...] STEPH DAILY Ot Y92.[address] IN [facility] NON[facility] (PRIVATE 01/23/2020 STEPH DAILY Ot [...] INITIAL ENCOUN 01/23/2020 STEPH DAILY Ot Y92.[address] [facility] [address] IN [facility] NON[facility] (PRIVATE 01/23/2020 STEPH DAILY Ot Z85.41 PERSONAL HISTORY OF MALIGNANT NEOPLASM O 01/23/2020 STEPH DAILY Ot Z87.891 PERSONAL HISTORY OF NICOTINE DEPENDENCE 01/23/2020 STEPH DAILY Ot Z88.2 ALLERGY STATUS TO SULFONAMIDES STATUS 01/24/2020 BLU WAGGONERP Ot E03.9 HYPOTHYROIDISM, UNSPECIFIED 01/24/2020 EDILSONBLU CordovaP Ot E78.00 PURE HYPERCHOLESTEROLEMIA, UNSPECIFIED 01/24/2020 EDILSON, BLU CORPORATE SAFETY DIRECTOR Ot F31.9 BIPOLAR DISORDER, UNSPECIFIED 01/24/2020 EDILSON, BLU CORPORATE SAFETY DIRECTOR Ot F41.9 ANXIETY DISORDER, UNSPECIFIED 01/24/2020 BLU WAGGONERP Ot I10 ESSENTIAL (PRIMARY) HYPERTENSION 01/24/2020 BLU WAGGONERP Ot J44.9 CHRONIC OBSTRUCTIVE PULMONARY DISEASE, U 01/24/2020 EDILSON BLU CORPORATE SAFETY DIRECTOR Ot M06.9 RHEUMATOID ARTHRITIS, UNSPECIFIED 01/24/2020 EDILSON, BLU CORPORATE SAFETY DIRECTOR Ot M79.89 OTHER SPECIFIED SOFT TISSUE DISORDERS 01/24/2020 EDILSON, BLU CORPORATE SAFETY DIRECTOR Ot Z79.52 [facility] (CURRENT) USE OF SYSTEMIC STER 01/24/2020 EDILSON, [...] KIRSTIN GARZA MD Ot Y92.002 BATHRM OF [facility] NON-INST[facility] RESDNCE SNGL 06/01/2020 KIRSTIN GARZA MD Ot Z79. 52 BUSINESS OFFICE DIRECTOR (CURRENT) USE OF SYSTEMIC STER 06/01/2020 KIRSTIN GARZA MD, Ot Z79.890 HORMONE REPLACEMENT THERAPY 06/01/2020 KIRSTIN GARZA MD Ot Z79.891 [facility] (CURRENT) USE OF OPIATE ANALGE 06/01/2020 KIRSTIN [...] KIRSTIN GARZA MD Ot Y92.002 BATHRM OF [facility] NON-INSTITUT RESDNCE SNGL 06/04/2020 KIRSTIN GARZA MD Ot Z79. 52 [facility] (CURRENT) USE OF SYSTEMIC STER 06/04/2020 KIRSTIN GARZA MD Ot Z79.890 HORMONE REPLACEMENT THERAPY 06/04/2020 KIRSTIN GARZA MD, Ot Z79.891 [facility] (CURRENT) USE OF OPIATE ANALGE 06/04/2020 KIRSTIN GARZA MD Ot Z85. 41 PERSONAL HISTORY OF MALIGNANT NEOPLASM O 06/04/2020 KIRSTIN GARZA MD, Ot Z87.891 PERSONAL HISTORY OF NICOTINE DEPENDENCE 06/04/2020 KIRSTIN GARZA MD, Ot Z88. 2 ALLERGY STATUS TO SULFONAMIDES STATUS 06/06/2020 HOUSER DO, EZIO L Ot E03.9 HYPOTHYROIDISM, UNSPECIFIED 06/06/2020 HOUSER DO, EZIO L Ot E78.0 0 PURE HYPERCHOLESTEROLEMIA, UNSPECIFIED 06/06/2020 HOUSER DO, EZIO L Ot F31.9 BIPOLAR DISORDER, UNSPECIFIED 06/06/2020 HOUSER DO, EZIO L Ot F41.9 ANXIETY DISORDER, UNSPECIFIED 06/06/2020 HOUSER DO, EZIO L Ot G62.9 POLYNEUROPATHY, UNSPECIFIED 06/06/2020 HOUSER DO, EZIO L Ot G89.2 9 OTHER CHRONIC PAIN 06/06/2020 HOUSER DO, EZIO L Ot H40.9 UNSPECIFIED GLAUCOMA 06/06/2020 HOUSER DO, EZIO L Ot I10 ESSENTIAL (PRIMARY) HYPERTENSION 06/06/2020 HOUSER DO, EZIO L Ot I47.1 SUPRAVENTRICULAR TACHYCARDIA 06/06/2020 HOUSER DO, EZIO L Ot J44.9 CHRONIC OBSTRUCTIVE PULMONARY DISEASE, U 06/06/2020 HOUSER DO, EZIO L Ot K44.9 DIAPHRAGMATIC HERNIA WITHOUT OBSTRUCTION 06/06/2020 HOUSER DO, EZIO L Ot K52.9 NONINFECTIVE GASTROENTERITIS AND COLITIS 06/06/2020 HOUSER DO, EZIO L Ot K59.0 9 OTHER CONSTIPATION 06/06/2020 HOUSER DO, EZIO L Ot M06.9 RHEUMATOID ARTHRITIS, UNSPECIFIED 06/06/2020 HOUSER DO, EZIO L Ot M19.9 0 UNSPECIFIED OSTEOARTHRITIS, UNSPECIFIED 06/06/2020 HOUSER DO, EZIO L Ot M54.9 DORSALGIA, UNSPECIFIED 06/06/2020 HOUSER DO, EZIO L Ot M79.1 0 MYALGIA, UNSPECIFIED SITE 06/06/2020 HOUSER DO, EZIO L Ot M81.0 AGE-RELATED OSTEOPOROSIS W/O CURRENT PAT 06/06/2020 HOUSER DO, EZIO L Ot R11.0 NAUSEA 06/06/2020 HOUSER DO, EZIO L Ot Z79.8 90 HORMONE REPLACEMENT THERAPY 06/06/2020 HOUSER DO, EZIO L Ot Z79.8 99 OTHER BUSINESS OFFICE DIRECTOR (CURRENT) DRUG THERAPY 06/06/2020 HOUSER DO, EZIO L Ot Z85.4 1 PERSONAL HISTORY OF MALIGNANT NEOPLASM O 06/06/2020 HOUSER DO, EZIO L Ot Z87.8 91 PERSONAL HISTORY OF NICOTINE DEPENDENCE 06/06/2020 HOUSER DO, EZIO L Ot Z88.2 ALLERGY STATUS TO SULFONAMIDES STATUS 06/08/2020 MELINDA DO, LORENA K Ot E03.9 HYPOTHYROIDISM, UNSPECIFIED 06/08/2020 MELINDA DO, LORENA K Ot F03.90 UNSPECIFIED DEMENTIA WITHOUT BEHAVIORAL 06/08/2020 MELINDA DO, LORENA K Ot F31.9 BIPOLAR DISORDER, UNSPECIFIED 06/08/2020 MELINDA DO, LORENA K Ot F41.9 ANXIETY DISORDER, UNSPECIFIED 06/08/2020 MELINDA DO, LORENA K Ot G43.909 MIGRAINE, UNSP, NOT INTRACTABLE, WITHOUT 06/08/2020 MELINDA DO, LORENA K Ot I10 ESSENTIAL (PRIMARY) HYPERTENSION 06/08/2020 MELINDA DO, LORENA K Ot J44.9 CHRONIC OBSTRUCTIVE PULMONARY DISEASE, U 06/08/2020 MELINDA DO, LORENA K Ot K21.9 GASTRO-ESOPHAGEAL REFLUX DISEASE WITHOUT 06/08/2020 MELINDA DO, LORENA K Ot R07.9 CHEST PAIN, UNSPECIFIED 06/08/2020 MELINDA DO, LORENA K Ot Z79.52 MCFP (CURRENT) USE OF SYSTEMIC STER 06/08/2020 MELINDA DO, LORENA K Ot Z79.890 HORMONE REPLACEMENT THERAPY 06/08/2020 MELINDA DO, LORENA K Ot Z85.41 PERSONAL HISTORY OF MALIGNANT NEOPLASM O 06/08/2020 MELINDA DO, LORENA K Ot Z87.891 PERSONAL HISTORY OF NICOTINE DEPENDENCE 06/08/2020 MELINDA DO, LORENA K Ot Z88.2 ALLERGY STATUS TO SULFONAMIDES STATUS 06/08/2020 HOUSER [...] 0 UNSPECIFIED OSTEOARTHRITIS, UNSPECIFIED 06/08/2020 HOUSER DO, EZOI L Ot M54.9 DORSALGIA, UNSPECIFIED 06/08/2020 HOUSER DO, EZIO L Ot M79.1 0 MYALGIA, UNSPECIFIED SITE 06/08/2020 HOUSER DO, EZIO L Ot M81.0 AGE-RELATED OSTEOPOROSIS W/O CURRENT PAT 06/08/2020 HOUSER DO, EZIO L Ot R11.0 NAUSEA 06/08/2020 HOUSER DO, EZIO L Ot Z79.8 90 HORMONE REPLACEMENT THERAPY 06/08/2020 HOUSER DO, EZIO L Ot Z79.8 99 OTHER BUSINESS OFFICE DIRECTOR (CURRENT) DRUG THERAPY 06/08/2020 HOUSER DO, EZIO L Ot Z85.4 1 PERSONAL HISTORY OF MALIGNANT NEOPLASM O 06/08/2020 HOUSER DO, EZIO L Ot Z87.8 91 PERSONAL HISTORY OF NICOTINE DEPENDENCE 06/08/2020 HOUSER DOEZIO Ot Z88.2 ALLERGY STATUS TO SULFONAMIDES STATUS 06/11/2020 MELINDA DO, LORENA K Ot E03.9 HYPOTHYROIDISM, UNSPECIFIED 06/11/2020 MELINDA DO, LORENA K Ot F03.90 UNSPECIFIED DEMENTIA WITHOUT BEHAVIORAL 06/11/2020 MELINDA DO, LORENA K Ot F31.9 BIPOLAR DISORDER, UNSPECIFIED 06/11/2020 MELINDA DO, LORENA K Ot F41.9 ANXIETY DISORDER, UNSPECIFIED 06/11/2020 MELINDA DO, LORENA K Ot G43.909 MIGRAINE, UNSP, NOT INTRACTABLE, WITHOUT 06/11/2020 MELINDA DO, LORENA K Ot I10 ESSENTIAL (PRIMARY) HYPERTENSION 06/11/2020 MELINDA DO, LORENA K Ot J44.9 CHRONIC OBSTRUCTIVE PULMONARY DISEASE, U 06/11/2020 MELINDA DO, LORENA K Ot K21.9 GASTRO-ESOPHAGEAL REFLUX DISEASE WITHOUT 06/11/2020 MELINDA DO, LORENA K Ot R07.9 CHEST PAIN, UNSPECIFIED 06/11/2020 MEILNDA DO, LORENA K Ot Z79.52 BUSINESS OFFICE DIRECTOR (CURRENT) USE OF SYSTEMIC STER 06/11/2020 MELINDA DO, LORENA K Ot Z79.890 HORMONE REPLACEMENT THERAPY 06/11/2020 MELINDA DO, LORENA K Ot Z85.41 PERSONAL HISTORY OF MALIGNANT NEOPLASM O 06/11/2020 MELINDA DO, LORENA K Ot Z87.891 PERSONAL HISTORY OF NICOTINE DEPENDENCE 06/11/2020 MELINDA DO, LORENA K Ot Z88.2 ALLERGY STATUS TO SULFONAMIDES STATUS 06/11/2020 ROZINA ESCALANTE, MAC Pineda Ot 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 06/11/2020 MELINDA DO, LORENA K Ot E03.9 HYPOTHYROIDISM, UNSPECIFIED 06/11/2020 MELINDA DO, LORENA K Ot E78.00 PURE HYPERCHOLESTEROLEMIA, UNSPECIFIED 06/11/2020 MELINDA DO, LORENA K Ot F03.90 UNSPECIFIED DEMENTIA WITHOUT BEHAVIORAL 06/11/2020 MELINDA DO, LORENA K Ot F31.9 BIPOLAR DISORDER, UNSPECIFIED 06/11/2020 MELINDA DO, LORENA K Ot F41.9 ANXIETY DISORDER, UNSPECIFIED 06/11/2020 MELINDA DO, LORENA K Ot G43.909 MIGRAINE, UNSP, NOT INTRACTABLE, WITHOUT 06/11/2020 MELINDA DO, LORENA Pineda Ot I10 ESSENTIAL (PRIMARY) HYPERTENSION 06/11/2020 MELINDA DO, LORENA Pineda Ot J44.9 CHRONIC OBSTRUCTIVE PULMONARY DISEASE, U 06/11/2020 MELINDA DO, LORENA Pineda Ot K21.9 GASTRO-ESOPHAGEAL REFLUX DISEASE WITHOUT 06/11/2020 MELINDA DO, LORENA Pineda Ot K58.9 IRRITABLE BOWEL SYNDROME WITHOUT DIARRHE 06/11/2020 MELINDA DO LORENA Miriam Ot K59.09 OTHER CONSTIPATION 06/11/2020 MELINDA DO, LORENA Pineda Ot M06.9 RHEUMATOID ARTHRITIS, UNSPECIFIED 06/11/2020 MELINDA DO LORENA Pineda Ot M81.0 AGE- RELATED OSTEOPOROSIS W/O CURRENT PAT 06/11/2020 [place] DO LORENA Miriam Ot R42 DIZZINESS AND GIDDINESS 06/11/2020 MELINDA DO LORENA Miriam Ot Z79.890 HORMONE REPLACEMENT THERAPY 06/11/2020 [place] DO LORENA Miriam Ot Z85.41 PERSONAL HISTORY OF MALIGNANT NEOPLASM O 06/11/2020 [place] DO LORENA Miriam Ot Z87.891 PERSONAL HISTORY OF NICOTINE DEPENDENCE 06/11/2020 [facility] LORENA Pineda Ot Z88.2 ALLERGY STATUS TO SULFONAMIDES STATUS 06/11/2020 [facility]NA Pineda Ot Z90.710 ACQUIRED ABSENCE OF BOTH CERVIX AND UTER 06/11/2020 [facility] LORENA Miriam Ot Z90.89 ACQUIRED ABSENCE OF OTHER ORGANS Procedures Code Description Performed By Per formed On 48.63 ANTE RIOR RECT RESECT NEC 09/19/2010 53.43 OTHE R LAPAROSCOPIC UMBILICAL HERNIORRHAP 09/19/2010 63594 PSYC H IND W/MED CK 20 11/13/2011 26305 PSYC H IND W/MED CK 20 11/18/2012 95682 PSYC H IND W/MED CK 20 01/24/2013 Results Test Result Range Hemoglobin A1C - 01/12/17 14:47 % A1C 5.50 % 5.40-6.60 AvGlu 117 mg/dL 70-110 Urinalysis - 01/12/17 15:51 Icotest Positive Negative Urine Volume Urine Volume Sufficient (10mL) Urine-Appearance Cloudy Clear Urine-Bacteria 2+ Urine-Bilirubin 2+ Negative Urine-Blood Trace-lysed Negative Urine-Color Yellow Colorless-Lt. Pope ow Urine-Epithelial Cells 5-10/HPF Urine-Glucose Negative Negative Urine-Ketones 4+ Negative Urine-Leukocytes Trace Negative Urine-Mucus 1+ Urine-Nitrite Negative Negative Urine-Other Urine Saved if Culture Need ed (48hrs from time of collection) Urine-pH 5.5 5-8.5 Urine-Protein 2+ Negative Urine-Specific [place] >=1.030 1.000-1 .030 Urine-WBC 2-5/HPF Urobilinogen 0.2 [...] 1.4 mg/dL 0.2-1.2 TP 6.2 g/dL 6.0-8.3 [facility] - 07/23/17 12:20 Anion Gap 21 6-14 [...] Negative Urine-Blood Trace-intact Negative Urine-Color Yellow Colorless-Lt. [place] ow Urine-Epithelial Cells 5-10/HPF Urine-Glucose Negative Negative Urine-Ketones Trace Negative Urine-Leukocytes Negative Negative Urine-Mucus 3+ Urine-Nitrite Negative Negative Urine-Other Culture to follow Urine-pH 6.0 5-8.5 Urine-Protein Negative Negative Urine-RBC Rare/HPF Urine-Specific [place] 1.020 1.000-1 .030 Urine-WBC 2-5/HPF Urobilinogen 1.0 [...] Negative Urine-Blood Negative Negative Urine-Color Yellow Colorless-Lt. [place] ow Urine-Epithelial Cells 10-20/HPF Urine-Glucose Negative Negative Urine-Ketones 4+ Negative Urine-Leukocytes Negative Negative Urine-Mucus 1+ Urine-Nitrite Negative Negative Urine-Other Urine Saved if Culture Need ed (48hrs from time of collection) Urine-pH 5.5 5-8.5 Urine-Protein Trace Negative Urine-RBC Rare/HPF Urine-Specific [place] >=1.030 1.000-1 .030 Urine-WBC Rare/HPF Urobilinogen 0.2 [...] Negative Urine-Blood Negative Negative Urine-Color Yellow Colorless-Lt. [place] ow Urine-Epithelial Cells 0-5/HPF Urine-Glucose Negative Negative Urine-Ketones 4+ Negative Urine-Leukocytes Negative Negative Urine-Mucus 3+ Urine-Nitrite Negative Negative Urine-Other Culture to follow Urine-pH 6.0 5-8.5 Urine-Protein 2+ Negative Urine-RBC 0-2/HPF Urine-Specific [place] >=1.030 1.000-1 .030 Urine-WBC 2-5/HPF Urobilinogen 1.0 [...] 1.2 mg/dL 0.2-1.2 TP 5.0 g/dL 6.0-8.3 [facility] - 01/14/18 06:55 Anion Gap 13 6-14 BUN 6 mg/dL 5-25 Calcium 8.2 mg/dL 8.3-10.4 Chloride 115 mmol/L 95-114 CO2 19 mEq/L 22-33 Creat 0.76 mg/dL 0.50-1.50 eGFR 75 mL/min/1.73m2 >59 Glucose 97 mg/dL 70-110 Osmo 293 280-295 Potassium 3.6 mmol/L 3.5-5.3 Sodium 143 mmol/L 134-148 [facility] - 01/15/18 07:00 Anion Gap 15 6-14 BUN 3 mg/dL 5-25 Calcium 9.2 mg/dL 8.3-10.4 Chloride 115 mmol/L 95-114 CO2 21 mEq/L 22-33 Creat 0.73 mg/dL 0.50-1.50 eGFR 79 mL/min/1.73m2 >59 Glucose 95 mg/dL 70-110 Osmo 298 280-295 Potassium 4.5 mmol/L 3.5-5.3 Sodium 146 mmol/L 134-148 [facility] - 01/17/18 08:51 Anion Gap 16 6-14 BUN 4 mg/dL 5-25 Calcium 9.2 mg/dL 8.3-10.4 Chloride 105 mmol/L 95-114 CO2 26 mEq/L 22-33 Creat 0.78 mg/dL 0.50-1.50 eGFR 73 mL/min/1.73m2 >59 Glucose 102 mg/dL 70-110 Osmo 292 280-295 Potassium 3.5 mmol/L 3.5-5.3 Sodium 143 mmol/L 134-148 [facility] - 02/03/18 01:20 Anion Gap 13 6-14 BUN 10 mg/dL 5-25 Calcium 8.9 mg/dL 8.3-10.4 Chloride 110 mmol/L 95-114 CO2 23 mEq/L 22-33 Creat 0.91 mg/dL 0.50-1.50 eGFR 61 mL/min/1.73m2 >59 Glucose 92 mg/dL 70-110 Osmo 292 280-295 Potassium 3.9 mmol/L 3.5-5.3 Sodium 142 mmol/L 134-148 IFOBT Occult Blood - 02/03/18 01:59 IFOBT Occult Blood POSITIVE Negative EKG - 02/03/18 02:20 EKG Complete [facility] - 02/03/18 06:35 Anion Gap 15 6-14 [...] 32.5 g/dL 32.0-36.0 MCV 94.4 fL 80.0-97.0 [place]% 10.0 % 0.0-12.0 MPV 10.0 fL 7.4-10.0 Deanna% 53.5 % 37.0-80.0 Plt 175 K/uL 150-400 RBC 3.72 M/uL 3.60-5.00 RDW 14.0 % 11.6-14.8 WBC 3.31 K/uL 5.00-10.00 Deanna 1.77 K/uL 2.00-6.90 [place] 0.3 K/uL 0.0-0.9 Baso 0.0 K/uL 0.0-0.2 Surgical Pathology - 02/11/18 09:35 Surg Path Sent to [facility] Comprehensive Metabolic Panel - 02/12/18 05:21 [...] Negative Urine-Blood Negative Negative Urine-Color Yellow Colorless-Lt. Pope ow Urine-Epithelial Cells 0-5/HPF Urine-Glucose Negative Negative Urine-Ketones Negative Negative Urine-Leukocytes Negative Negative Urine-Nitrite Negative Negative Urine-Other Urine Saved if Culture Need ed (48hrs from time of collection) Urine-pH 5.5 5-8.5 Urine-Protein Negative Negative Urine-RBC 0-2/HPF Urine-Specific [place] <=1.005 1.000-1 .030 Urine-WBC Negative Urobilinogen 0.2 E.U./dL 0.2-1.0 CBC with Auto Diff - 02/22/18 11:00 Baso% 0.20 % 0.00-2.50 Eos 0.1 K/uL 0.0-0.7 Eos% 1.1 % 0.0-7.0 Hct 34.6 % 36.0-46.0 Hgb 11.1 g/dL 13.0-15.0 Lym 1.70 K/uL 0.60-3.40 Lym% 36.3 % 10.0-50.0 MCH 29.9 pg 27.0-31.0 MCHC 32.1 g/dL 32.0-36.0 MCV 93.3 fL 80.0-97.0 [place]% 15.2 % 0.0-12.0 MPV 11.0 fL 7.4-10.0 Deanna% 47.2 % 37.0-80.0 Plt 252 K/uL 150-400 RBC 3.71 M/uL 3.60-5.00 RDW 13.5 % 11.6-14.8 WBC 4.68 K/uL 5.00-10.00 Deanna 2.21 K/uL 2.00-6.90 [place] 0.7 K/uL 0.0-0.9 Baso 0.0 K/uL 0.0-0.2 [...] 7-25 CREATININE 0.80 mg/dL 0.60-0.93 eGFR NON-AFR. [place] 74 mL/min/1.73m2 > OR = 60 eGFR [...] 7-25 CREATININE 0.93 mg/dL 0.60-0.93 eGFR NON-AFR. [place] 62 mL/min/1.73m2 > OR = 60 eGFR [...] 31.4 g/dL 32.0-36.0 MCV 91.2 fL 80.0-97.0 [place]% 9.4 % 0.0-12.0 MPV 11.4 fL 7.4-10.0 Deanna% 71.5 % 37.0-80.0 Plt 250 K/uL 150-400 RBC 4.44 M/uL 3.60-5.00 RDW 15.1 % 11.6-14.8 WBC 9.70 K/uL 5.00-10.00 Deanna 6.93 K/uL 2.00-6.90 [place] 0.9 K/uL 0.0-0.9 Baso 0.0 K/uL 0.0-0.2 Urinalysis - 05/10/19 02:50 Icotest N/A Negative Urine Volume Urine Volume Sufficient (10mL) Urine-Appearance Clear Clear Urine-Bacteria Negative Urine-Bilirubin Negative Negative Urine-Blood Negative Negative Urine-Color Yellow Colorless-Lt. Pope ow Urine-Epithelial Cells 0-5/HPF Urine-Glucose Negative Negative Urine-Ketones Negative Negative Urine-Leukocytes Negative Negative Urine-Nitrite Negative Negative Urine-Other Urine Saved if Culture Need ed (48hrs from time of collection) Urine-pH 7.0 5-8.5 Urine-Protein Negative Negative Urine-RBC Rare/HPF Urine-Specific [place] 1.010 1.000-1 .030 Urine-WBC Rare/HPF Urobilinogen 0.2 [...] blocking antibody assay - 05/10/19 19:44 ACETYLCHOLINE IMPLEMENTATION CONSULTANT BINDING AB 0.0 % 0.0-0.4 Complete urinalysis [...] pa nadeen - 05/23/19 23:10 WRISTBAND NUMBER [id number] NRG ABO+Rh group OP NRG Blood group [...] protein measurement (mass/v olume) 2.27 mg/dL 0.00-0.50 [id number] - 06/14/19 13:05 [id number] 14.9 ug/mL 50.0-100.0 Complete urinalysis with reflex [...] urinalysis with reflex to culture NO NRG [id number] - 06/25/19 08:45 [id number] 36.2 ug/mL 50.0-100.0 CBC - 11/18/19 10:27 [...] 7-25 CREATININE 0.90 mg/dL 0.60-0.93 eGFR NON-AFR. [place] 64 mL/min/1.73m2 > OR = 60 eGFR [...] 06/08/20 01:05 BNP PT 53.2 pg/mL <100.0 [id number] - 06/08/20 01:05 [id number] < 2.0 50.0-100.0 PT panel in platelet [...] i.cardiac measurement (mass/v olume) < ng/mL <0.028 Complete blood count (CBC) with automate d white blood cell (WBC) differential - 06/11/20 04:10 Blood leukocytes automated count (number/volume) 7.3 10*3/uL 4.3-11.0 Blood erythrocytes automated count (number/volume) 4.31 10*6/uL 4.35-5.85 Venous blood hemoglobin measurement (mass/volume) 11.6 g/dL 11.5-16.0 Blood hematocrit (volume fraction) 37 % 35-52 Automated erythrocyte mean corpuscular volume 86 [ foz_us] 80-99 Automated erythrocyte mean corpuscular h emoglobin (mass per erythrocyte) 27 pg 25-34 Automated erythrocyte mean corpuscular h emoglobin concentration measurement (mass/volume) 31 g/dL 32-36 Automated erythrocyte distribution width ratio 17. 7 % 10.0- 14.5 Automated blood platelet count (count/volume) 253 10*3/uL 130-400 Automated blood platelet mean volume measurement 9.8 [foz_us] 7.4-10.4 Automated blood neutrophils/100 leukocytes 59 % 42-75 Automated blood lymphocytes/100 leukocytes 26 % 12-44 Blood monocytes/100 leukocytes 13 % 0-12 Automated blood eosinophils/100 leukocytes 2 % 0-10 Automated blood basophils/100 leukocytes 0 % 0-10 Blood neutrophils automated count (number/volume) 4.3 10*3 1.8-7.8 Blood lymphocytes automated count (number/volume) 1.9 10*3 1.0-4.0 Blood monocytes automated count (number/volume) 0. 9 10*3 0.0-1.0 Automated eosinophil count 0.1 10*3/uL 0 .0-0.3 Automated blood basophil count (count/volume) 0.0 10*3/uL 0.0-0.1 PT panel in platelet poor plasma by coag ulation assay - 06/11/20 04:10 Prothrombin time (PT) in platelet poor plasma by coagu lation assay 13.5 s 12.2-14.7 INR in platelet poor plasma or blood by coagulation as say 1.0 0.8-1.4 Activated partial thromboplastin time (a PTT) in platelet poor plasma bycoagulation assay - 06/11/20 04:10 Activated partial thromboplastin time (a PTT) in platelet poor plasma bycoagulation assay 27 s 24-35 Comprehensive metabolic panel - 06/11/20 04:10 Serum or plasma sodium measurement (moles/volume) 145 mmol/L 135-145 Serum or plasma potassium measurement (moles/volume) 3.3 mmol/L 3.6-5.0 Serum or plasma chloride measurement (moles/volume) 107 mmol/L 98-107 Carbon dioxide 22 mmol/L 21-32 Serum or plasma anion gap determination (moles/volume) 16 mmol/L 5-14 Serum or plasma urea nitrogen measurement (mass/volume ) 13 mg/dL 7-18 Serum or plasma creatinine measurement (mass/volume) 0.89 mg/dL 0.60-1.30 Serum or plasma urea nitrogen/creatinine mass ratio 15 NRG Serum or plasma creatinine measurement w ith calculation of estimated glomerular filtration rate > NRG Serum or plasma glucose measurement (mass/volume) 90 mg/dL 70-105 Serum or plasma calcium measurement (mass/volume) 10.4 mg/dL 8.5-10.1 Serum or plasma total bilirubin measurement (mass/volu me) 0.4 mg/dL 0.1-1.0 Serum or plasma alkaline phosphatase med surement (enzymatic activity/volume) 96 U/L 40-136 Serum or plasma aspartate aminotransfera se measurement (enzymatic activity/volume) 21 U/L 5-34 Serum or plasma alanine aminotransferase measurement (enzymatic activity/volume) 17 U/L 0-55 Serum or plasma protein measurement (mass/volume) 6.9 g/dL 6.4-8.2 Serum or plasma albumin measurement (mass/volume) 4.0 g/dL 3.2-4.5 CALCIUM CORRECTED 10.4 mg/dL 8.5-10.1 Magnesium - 06/11/20 04:10 Magnesium 2.1 mg/dL 1.6-2.4 Myoglobin, serum - 06/11/20 04:10 Myoglobin, serum 55.4 ng/mL 10.0-92.0 Serum or plasma troponin i.cardiac measu rement (mass/volume) - 06/11/20 04:10 Serum or plasma troponin i.cardiac measurement (mass/v olume) < ng/mL <0.028 THYROID STIMULATING HORMONE - 06/11/20 0 6:47 THYROID STIMULATING HORMONE 3.82 u[iU]/mL 0.35-4.94 Serum or plasma troponin i.cardiac measu rement (mass/volume) - 06/11/20 06:55 Serum or plasma troponin i.cardiac measurement (mass/v olume) < ng/mL <0.028 Encounters ACCT No. Visit Date/Time Discharge Status Pt. Type Provider Facility Loc./Unit Complaint [id number] 01/19/2018 04:11:00 Document Registration [id number] 09/30/2014 16:41:00 09/30/2014 23:59: 59 CLS Outpatient RONALDMICHELLE ORTIZ [id number] 07/15/2014 13:28:00 07/15/2014 23:59: 59 [facility] Outpatient NUPUR LEIVAValdemar SAMARA KEVIN [id number] 05/06/2014 09:25:00 05/06/2014 23:59: 59 CLS Outpatient NUPUR LEIVAValdemar SAMARA KEVIN [id number] 04/06/2014 09:02:00 04/06/2014 23:59: 59 CLS Outpatient ESPITIAALCON LEIVANSAMARA KEVIN [id number] 02/24/2014 12:55:00 02/24/2014 23:59: 59 CLS Outpatient NUPUR LEIVAValdemar SAMARA KEVIN [id number] 02/04/2014 13:24:00 02/04/2014 23:59: 59 CLS Outpatient ESPITIAALCON LEIVAValdemar SAMARA KEVIN [id number] 11/19/2013 10:21:00 11/19/2013 23:59: 59 CLS Outpatient ESPITIAALCON LEIVAValdemar SAMARA KEVIN [id number] 09/15/2013 09:11:00 09/15/2013 23:59: 59 CLS Outpatient ESPITIAALCON LEIVAValdemar SAMARA KEVIN [id number] 06/03/2013 13:58:00 06/03/2013 23:59: 59 CLS Outpatient ANDER GRANT DO [id number] 11/18/2012 13:44:00 11/18/2012 23:59: 59 CLS Outpatient ESPITIA SAMARA ALBERT [id number] 10/17/2012 14:16:00 10/17/2012 23:59: 59 CLS Outpatient SAMARA ESPITIA APRN [id number] 11/10/2011 14:31:00 11/10/2011 23:59: 59 CLS Outpatient [id number] 04/10/2013 11:20:00 Document Registration [id number] 01/24/2013 13:15:00 Document Registration [id number] 01/24/2020 00:00:00 02/19/2020 07:45 :00 DIS Outpatient UNLISTED, UNLISTED [id number] 05/10/2019 09:55:00 05/10/2019 23:59: 00 DIS Outpatient Matt Ragland [id number] 05/10/2019 01:44:00 05/10/2019 04:45: 00 DIS Outpatient VIOLETTALANI SHORT APRN [facility] ER [id number] 05/05/2019 22:28:00 05/05/2019 23:16: 00 DIS Outpatient GISELA HIGGINBOTHAM [facility] ER [id number] 05/02/2019 12:03:00 05/02/2019 14:22: 00 [id number] 08/16/2018 08:57:00 08/16/2018 10:23: 00 [id number] 08/04/2018 00:35:00 08/04/2018 01:58: 00 DIS Outpatient Jacqui Lewis Lisa [facility] ER [id number] 08/01/2018 14:00:00 08/01/2018 15:05: 00 DIS Outpatient Jean Wallace [facility] ER [id number] 07/17/2018 09:42:00 07/17/2018 23:59: 00 DIS Outpatient NINO DOMINGUEZ [id number] 07/17/2018 09:16:00 07/17/2018 23:59: 00 DIS Outpatient NINO DOMINGUEZ [id number] 01/18/2018 00:00:00 04/10/2018 07:48: 00 DIS Outpatient Mac Madden [id number] 02/22/2018 12:04:00 02/22/2018 23:59: 00 DIS Outpatient Mac Madden [id number] 02/12/2018 05:09:00 02/12/2018 08:24: 00 DIS Outpatient GISELA HIGGINBOTHAM [place] [facility] ER [id number] 02/11/2018 06:58:00 02/11/2018 09:30: 00 DIS Outpatient Jac Vanessa [id number] 02/03/2018 00:28:00 02/04/2018 14:40: 00 DIS Outpatient Bruce Stoner [facility] MED-SURG [id number] 01/14/2018 08:15:00 01/17/2018 14:00: 00 DIS Inpatient [facility] MED-SURG [id number] 11/17/2017 02:01:00 11/17/2017 06:53: 00 DIS Outpatient Jean Wallace [facility] ER [id number] 07/23/2017 11:33:00 07/25/2017 14:15: 00 DIS Outpatient [facility] MED-SURG [id number] 01/12/2017 14:08:00 01/13/2017 13:20: 00 DIS Outpatient Marie RaglandAnnetteMiranda [id number] 07/19/2018 10:31:21 Document Registration [id number] 01/12/2018 15:04:00 Document Registration [id number] 01/12/2017 14:50:40 Document Registration [id number] 06/08/2020 10:00:00 06/08/2020 23:59: 59 CLS Outpatient MAC MADDEN [facility] [id number] 03/31/2020 15:00:00 Document Registration [id number] 11/18/2019 09:15:00 Document Registration [id number] 04/17/2019 09:00:00 Document Registration [id number] 03/13/2019 14:00:00 Document Registration [id number] 01/15/2019 13:15:00 Document Registration [id number] 06/11/2020 02:16:00 020 08:04:00 DIS Emergency MAURA ESCALANTE, KIRSTIN Mayo [facility] [address] [facility] ER ANXIETY [id number] 06/08/2020 20:12:00 020 01:20:00 DIS Outpatient LORENA LAWRENCE DO [facility] [address] [facility] ER DIZZINESS [id number] 06/08/2020 10:35:00 23:59:59 CLS Outpatient ROZINA ESCALANTE, MAC Pineda [facility] [address] LAB FS ATHEROSCLEROSIS OF VONNIE MCKENZIE CORONARY ARTERY [id number] 06/08/2020 00:49:00 02:46:00 DIS Emergency MELINDA DO, LORENA K Vi a [facility] [address] ER ELEVATED BLOOD PRESSURE [id number] 06/06/2020 08:12:00 11:45:00 DIS Emergency HOUSER DO, EZIO L [facility] [address] ER ARM PAIN [id number] 05/29/2020 11:02:00 13:52:00 DIS Outpatient GREG ESCALANTE, KIRSTIN Villeda [facility] [address] ER FALL [id number] 01/11/2020 12:14:00 15:36:00 DIS Emergency STEPH DAILY [facility] [address] ER FALL [id number] 01/07/2020 14:47:00 15:14:00 DIS Emergency EDILSONBLU CORPORATE SAFETY DIRECTOR Via [facility] [address] ER SWELLING OF HANDS AND F EET [id number] 01/06/2020 19:18:00 21:18:00 DIS Emergency DEONNA MOBLEY APRN [facility] [address] ER RECTAL BLEEDING [id number] 12/25/2019 13:20:00 17:13:00 DIS Emergency DEONNA MOBLEY APRN [facility] [address] ER L LEG/TONGUE SWELLING [id number] 12/24/2019 14:21:00 17:05:00 DIS Emergency KIRSTIN GARZA MD [facility] [address] [facility] ER MOUTH/TONGUE SWELLING [id number] 10/22/2019 19:22:00 21:00:00 DIS Emergency DEONNA MOBLEY APRN [facility] [address] ER FALL,SHOULDER PAIN [id number] 06/25/2019 08:31:00 23:59:59 CLS Outpatient SARAHI ESCALANTE, HALEY Pineda [facility] [address] LAB MIGRAINE [id number] 06/14/2019 13:04:00 17:31:00 DIS Emergency JESSICA ESCALANTE, ELIEZER Salgado [facility] [address] ER DEHYDRATION [id number] 06/06/2019 09:27:00 23:59:59 CLS Outpatient ROZINA ESCALANTE, MAC Pineda [facility] [address] RAD SCREENING [id number] 05/23/2019 21:59:00 01:03:00 DIS Emergency MAURA ESCALANTE, KIRSTIN Arauz [facility] [address] ER RECTAL BLEEDING [id number] 05/22/2019 01:38:00 05:11:00 DIS Emergency MELINDA LORENA LEDEZMA [facility] [address] [facility] ER VAGINAL/RECTAL DISCOMFO RT [id number] 05/17/2019 03:45:00 04:49:00 DIS Emergency KIRSTIN GARZA MD Via [facility] ER DIZZY,WEAKNESS [id number] 05/11/2019 13:41:00 16:27:00 DIS Emergency LORENA LAWRENCE DO [facility] [address] [facility] ER MIGRAINE [id number] 05/10/2019 18:59:00 22:40:00 DIS Emergency DEONNA MOBLEY SOLVENT PROCESS EXTRACTOR OPERATOR [facility] [address] [facility] ER MIGRAINE [id number] 03/05/2019 15:35:00 20:00:00 DIS Emergency MELINDA LORENA LEDEZMA [facility] ER DEHYDRATED [id number] 09/28/2018 16:14:00 20:06:00 DIS Emergency DEONNA MOBLEY SOLVENT PROCESS EXTRACTOR OPERATOR [facility] ER SORE THROAT/FEVER [id number] 08/29/2018 19:24:00 22:02:00 DIS Emergency KIRSTIN GARZA MD [facility] ER R LOWER LEG POSS CELLUL ITIS [id number] 05/09/2017 12:18:00 07/05/2 017 23:59:59 CLS Outpatient AMPARO ESCALANTE, RENU Bañuelos [facility] RAD 4+ [id number]], [id number] 03/19/2017 09:00:00 017 23:59:59 CLS Outpatient YURI SEYMOUR MD [facility] RAD DIARRHEA [id number] 06/10/2015 16:09:00 015 11:30:00 DIS Inpatient SANGEETA ESCALANTE, MUKUL Cordova [facility] IRF LRFT TIB FIB FRX [id number] 06/13/2020 09:10:[address] Emergency MAURA ESCALANTE, KIRSTIN Arauz Via [facility] ER GALDAMEZ [id number] 07/08/2019 14:17:00 Document Registration [id number] 07/08/2019 14:17:00 Document Registration [id number] 01/10/2019 09:58:00 Document Registration [id number] 02/29/2012 01:06:00 Document Registration [id number] 05/22/2011 15:24:00 Document Registration [id number] 05/21/2011 20:01:00 Document Registration [id number] 05/14/2011 10:31:00 Document Registration [id number] 11/24/2010 08:50:00 Document Registration [id number] 10/20/2010 08:36:00 Document Registration [id number] 09/23/2010 16:00:00 Document Registration [id number] 09/12/2010 15:57:00 Document Registration [id number] 08/11/2010 15:19:00 Document Registration [id number] 08/10/2010 13:28:00 Document Registration [id number] 08/09/2010 14:33:00 Document Registration [id number] 02/12/2009 11:00:00 Document Registration [id number] 08/15/2007 08:32:00 Document Registration
[2020-06-13 09:39] LABS: BASOPHILS % (AUTO) 0 % (0-10); EOSINOPHILS # (AUTO) 0.2 10^3/uL (0.0-0.3); EOSINOPHILS % (AUTO) 3 % (0-10); HEMATOCRIT 34 % (35-52); HEMOGLOBIN 10.1 G/DL (11.5-16.0); LYMPHOCYTES # (AUTO) 1.8 X 10^3 (1.0-4.0); LYMPHOCYTES % (AUTO) 27 % (12-44); MEAN CORPUSCULAR HEMOGLOBIN 26 PG (25-34); MEAN CORPUSCULAR HGB CONC 30 G/DL (32-36); MEAN CORPUSCULAR VOLUME 88 FL (80-99); MEAN PLATELET VOLUME 9.7 FL (7.4-10.4); MONOCYTES # (AUTO) 0.7 X 10^3 (0.0-1.0); MONOCYTES % (AUTO) 11 % (0-12); NEUTROPHILS # (AUTO) 3.9 X 10^3 (1.8-7.8); NEUTROPHILS % (AUTO) 59 % (42-75); PLATELET COUNT 254 10^3/uL (130-400); RED CELL DISTRIBUTION WIDTH 17.5 % (10.0-14.5); WHITE BLOOD COUNT 6.5 10^3/uL (4.3-11.0)
[2020-06-13 09:55] LABS: ALBUMIN 3.6 GM/DL (3.2-4.5)
[2020-06-13 09:56] LABS: CHLORIDE 109 MMOL/L (98-107); POTASSIUM 3.8 MMOL/L (3.6-5.0); SODIUM 146 MMOL/L (135-145)
[2020-06-13 09:57] LABS: CALCIUM 8.8 MG/DL (8.5-10.1)
[2020-06-13 09:58] LABS: GLUCOSE 87 MG/DL (70-105); TOTAL PROTEIN 5.9 GM/DL (6.4-8.2)
[2020-06-13 09:59] LABS: CARBON DIOXIDE 26 MMOL/L (21-32)
[2020-06-13 10:00] LABS: BILIRUBIN,TOTAL 0.5 MG/DL (0.1-1.0)
[2020-06-13 10:01] LABS: ALKALINE PHOSPHATASE 82 U/L (40-136)
[2020-06-13 10:02] LABS: CREATININE SERUM 0.91 MG/DL (0.60-1.30); GFR ESTIMATED > 60
[2020-06-13 10:03] LABS: BUN/CREATININE RATIO 16
[2020-06-13 10:04] LABS: ALANINE AMINOTRANSFERASE 13 U/L (0-55)
--- NOTE | 2020-06-13 11:11 | Diagnostic Imaging Report ---
PROCEDURE: CT head without contrast. TECHNIQUE: Multiple contiguous axial images were obtained through the brain without the use of intravenous contrast. Auto Exposure Controls were utilized during the CT exam to meet ALARA standards for radiation dose reduction. INDICATION: Fall. FINDINGS: There is no evidence of intracranial hemorrhage. No extra-axial fluid collection. The ventricles and cortical gyral pattern are normal. Pituitary is not enlarged. The mastoid air cells and paranasal sinuses are well-aerated and clear. There are no calvarial fractures. IMPRESSION: Negative CT head without contrast. Dictated by: Dictated on workstation # [id number]
--- NOTE | 2020-06-13 11:16 | Diagnostic Imaging Report ---
PROCEDURE: CT lumbar spine without contrast. TECHNIQUE: Multiple contiguous axial images were obtained through the lumbar spine without the use of intravenous contrast. Sagittal and coronal reformations were then performed. Auto Exposure Controls were utilized during the CT exam to meet ALARA standards for radiation dose reduction. INDICATION: Fall. COMPARISON: 01/11/2020. FINDINGS: Scoliosis again demonstrated of the lumbosacral spine. Advanced degenerative disc disease. Old mild wedge compression fracture of L1 anteriorly is unchanged. Facets show diffuse degenerative hypertrophic changes. No fractures are demonstrated. The paraspinal soft tissues are normal. The sacral ala show a very small nondisplaced fracture along the very anterior superior aspect of the right sacral ala. IMPRESSION: 1. Minimal fracture nondisplaced along the anterior superior aspect of the right sacral ala. 2. Old compression fracture of L1. Dictated by: Dictated on workstation # [id number]
[2020-06-13 11:31] LABS: BILIRUBIN,URINE NEGATIVE (NEGATIVE); CLARITY,URINE CLEAR; COLOR,URINE YELLOW; GLUCOSE, URINE (UA) NEGATIVE (NEGATIVE); KETONES,URINE NEGATIVE (NEGATIVE); LEUKOCYTE ESTERASE ,URINE NEGATIVE (NEGATIVE); NITRITE,URINE NEGATIVE (NEGATIVE); PROTEIN,URINE NEGATIVE (NEGATIVE)
[2020-06-13 11:38] LABS: BACTERIA,URINE TRACE /HPF; WBC,URINE RARE /HPF
[2020-06-13] MEDS ORDERED: KETOROLAC 30 MG/ML VIAL IVP ONE (12:15)
--- NOTE | 2020-06-13 12:18 | ED Back Pain ---
General Chief Complaint: Back Problems Stated Complaint: BACK PAIN Nursing Triage Note: PT BROUGHT IN BY [facility] FROM HOME WITH COMPLAINT OF CHRONIC BACK PAIN. Nursing Sepsis Screen: No Definite Risk Source of Information: Patient, EMS, Old Records Exam Limitations: No Limitations History of Present Illness Date Seen by Provider: Jun 13, 2020 Time Seen by Provider: 09:10 Initial Comments This 75-year-old woman presents to the emergency room with complaints of lower back pain and headache. She woke with symptoms this morning. She has not yet t aken her usual routine pain medications. She normally takes Ultram 100 mg every 6 hours. She reports having a fall about a week ago. Imaging of the head and spine was not obtained at that time. She also complains of generalized weakness. Labs were reviewed recently including a TSH level and a valproic acid level. Allergies and Home Medications Allergies Coded Allergies: Sulfa (Sulfonamide Antibiotics) (Verified Allergy, Unknown, 05/17/19) Home Medications Amitriptyline HCl 25 Mg Tablet, 25 MG PO HS, (Reported) Aripiprazole 15 Mg Tablet, 15 MG PO DAILY, (Reported) Cholecalciferol (Vitamin D3) 1,000 Unit Tablet, 1,000 UNIT PO DAILY, (Reported) Epinephrine 0.3 Mg/0.3 Ml Auto.injct, 0.3 MG IJ Q15M PRN for angioedema Prescribed by: KIRSTIN GARZA on 12/24/19 165 Gabapentin 300 Mg Capsule, 300 MG PO BID, (Reported) Levothyroxine Sodium 75 Mcg Tablet, 75 MCG PO DAILY, (Reported) Lidocaine 15 Gm Cream..g., 1 GM TP TID PRN for PAIN-SEVERE (8-10) Prescribed by: DEONNA MOBLEY on 01/06/202029 Meclizine HCl 25 Mg Tablet, 25 MG PO Q6H PRN for VERTIGO Prescribed by: KIRSTIN GARZA on 05/17/19 0440 Memantine HCl 5 Mg Tablet, 5 MG PO BID 5 MG PO Q AM and HS. Prescribed by: BLU QUINONES on 06/10/15 1523 Metoprolol Tartrate 50 Mg Tablet, 50 MG PO DAILY, (Reported) Ondansetron 4 Mg Tab.rapdis, 4 MG PO Q6H PRN for NAUSEA/VOMITING Prescribed by: ELIEZER LOPEZ on 06/14/19 1715 Pantoprazole Sodium 40 Mg Tablet.dr, 40 MG PO DAILY, (Reported) Potassium Chloride 20 Meq Tablet.er, 20 MEQ PO BID Prescribed by: STEPH FINN on 01/11/20 144 Prednisone 10 Mg Tab, 30 MG PO DAILY Prescribed by: REGLA LAWRENCE on 05/11/19 1441 Sucralfate 1 Gm Tablet, 1 GM PO QIDACHS Prescribed by: REGLA LAWRENCE on 03/05/19 191 Sumatriptan Succinate 100 Mg Tablet, 0.5 TAB PO PRN PRN for HEADACHE May repeat in 2 hours; Max 200 MG/24 hours. Prescribed by: BLU QUINONES on 06/10/15 155 Tramadol HCl 50 Mg Tablet, 50 MG PO BID, (Reported) Vitamin E 400 Unit Capsule, 400 UNIT PO DAILY, (Reported) Vortioxetine Hydrobromide 5 Mg Tablet, 5 MG PO DAILY, (Reported) [Biotin] , 10,000 MCG PO Evening Prescribed by: BLU QUINONES on 06/12/15 153 [Folic Acid 1MG] , 2 MG PO DAILY, (Reported) [Iron 65MG] , 65 MG PO Evening Prescribed by: BLU QUINONES on 06/12/15 1530 [Nitrostat] , 0.4 MG SL UD Q5 min X3 PRN. Prescribed by: BLU QUINONES on 06/10/15 155 [Potassium] , 20 MEQ PO BID, (Reported) Patient Home Medication List Home Medication List Reviewed: Yes Review of Systems Constitutional: see HPI EENTM: no symptoms reported Respiratory: no symptoms reported Cardiovascular: no symptoms reported Gastrointestinal: no symptoms reported Genitourinary: no symptoms reported : No Musculoskeletal: see HPI Skin: no symptoms reported Psychiatric/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: See HPI Past Jjjpryi-Lcluts-Xtbqns Hx Past Med/Social Hx: Reviewed Nursing Past Med/Soc Hx Patient Social History Alcohol Use: Denies Use Number of Drinks Today: Alcohol Beverage of Choice: Wine Recreational Drug Use: No Smoking Status: Former Smoker Type Used: Cigarettes Former Smoker, Quit: May 13, 2009 2nd Hand Smoke Exposure: No Recent Foreign Travel: No Contact w/Someone Who Travel: No Recent Infectious Disease Expo: No Recent Hopitalizations: No Immunizations Up To Date Tetanus Booster (TDap): More than 5yrs PED Vaccines UTD: Yes Date of Pneumonia Vaccine: Sep 04, 2019 Date of Influenza Vaccine: Sep 04, 2019 Seasonal Allergies Seasonal Allergies: Yes Past Medical History Surgeries: Yes (PORT;HYST/BSO;BOWEL/RECTAL SURGERY;HIATAL HERNIA REPAIR;EGD/C- SCOPES) Abdominal, Adenoidectomy, Bowel Surgery, Gallbladder, Hysterectomy, Oophorectomy, Rectal, Tonsillectomy Respiratory: Yes Pneumonia, COPD Cardiac: Yes (PSVT; RBBB) High Cholesterol, Hypertension 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: Yes Dementia, Headaches /Migraines, Neuropathy, Vertigo 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, 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 Genitourinary: No Gastrointestinal: Yes (BOWEL/RECTAL SURGERY;RECTAL PROLAPSE REPAIR;HIATAL HERNIA REPAIR; U.COLITIS) Colitis, Gastroesophageal Reflux, Crohns Disease, Chronic Constipation, Chronic Diarrhea, Hiatal Hernia, Gall Bladder Disease, Irritable Bowel Musculoskeletal: Yes (FALLS, USES WALKER) Osteoporosis, Arthritis, Fibromyalgia, Rheumatoid Arthritis, Chronic Back Pain Endocrine: Yes Hypothyroidsim HEENT: Yes Glaucoma Cancer: Yes Cervical Did You Recieve Any Treatments: Yes What Type of Treatment Did You: Surgical Intervention Psychosocial: Yes (EXTENSIVE PSYCH ISSUES) Anxiety, Bipolar, Depression Integumentary: No Blood Disorders: No Family Medical History No Pertinent Family Hx PSH: -HYSTERECTOMY/BILATERAL SALPINGO-OOPHORECTOMY -BOWEL SURGERY FOR OBSTRUCTION -LAPAROSCOPY -RECTAL PROLAPSE REPAIR/SIGMOID RESECTION -UMBILICAL HERNIA REPAIR -HIATAL HERNIA REPAIR -HEMORRHOIDECTOMY -TONSILLECTOMY/ADENOIDECTOMY -CHOLECYSTECTOMY -PORT LEFT CHEST HAS CHRONIC RECTAL PAIN COMPLAINTS Physical Exam Vital Signs Vital Signs - First Documented 06/13/20 09:11 Temp 36.6 Pulse 77 Resp 18 B/P (MAP) 144/103 (117) Pulse Ox 94 O2 Delivery Room Air Capillary Refill : Less Than 3 Seconds Height, Weight, BMI Height: 5'2.00" Weight: 125lbs. 0oz. 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 Norm as Tested Skin: Normal Color, Warm/Dry Progress/Results/Core Measures Results/Orders Lab Results Laboratory Tests Test 06/13/20 09:34 06/13/20 11:25 Range/Units White Blood Count 6.5 4.3-11.0 10^3/uL Red Blood Count 3.82 L 4.35-5.85 10^6/uL Hemoglobin 10.1 L 11.5-16.0 G/DL Hematocrit 34 L 35-52 % Mean Corpuscular Volume 88 80-99 FL Mean Corpuscular Hemoglobin 26 25-34 PG Mean Corpuscular Hemoglobin Concent 30 L 32-36 G/DL Red Cell Distribution Width 17.5 H 10.0-14.5 % Platelet Count 254 130-400 10^3/uL Mean Platelet Volume 9.7 7.4-10.4 FL Neutrophils (%) (Auto) 59 42-75 % Lymphocytes (%) (Auto) 27 12-44 % Monocytes (%) (Auto) 11 0-12 % Eosinophils (%) (Auto) 3 0-10 % Basophils (%) (Auto) 0 0-10 % Neutrophils # (Auto) 3.9 1.8-7.8 X 10^3 Lymphocytes # (Auto) 1.8 1.0-4.0 X 10^3 Monocytes # (Auto) 0.7 0.0-1.0 X 10^3 Eosinophils # (Auto) 0.2 0.0-0.3 10^3/uL Basophils # (Auto) 0.0 0.0-0.1 10^3/uL Sodium Level 146 H 135-145 MMOL/L Potassium Level 3.8 3.6-5.0 MMOL/L Chloride Level 109 H 98-107 MMOL/L Carbon Dioxide Level 26 21-32 MMOL/L Anion Gap 11 5-14 MMOL/L Blood Urea Nitrogen 15 7-18 MG/DL Creatinine 0.91 0.60-1.30 MG/DL Estimat Glomerular Filtration Rate > 60 BUN/Creatinine Ratio 16 Glucose Level 87 70-105 MG/DL Calcium Level 8.8 8.5-10.1 MG/DL Corrected Calcium 9.1 8.5-10.1 MG/DL Magnesium Level 2.0 1.6-2.4 MG/DL Total Bilirubin 0.5 0.1-1.0 MG/DL Aspartate Amino Transf (AST/SGOT) 15 5-34 U/L Alanine Aminotransferase (ALT/SGPT) 13 0-55 U/L Alkaline Phosphatase 82 40-136 U/L Total Protein 5.9 L 6.4-8.2 GM/DL Albumin 3.6 3.2-4.5 GM/DL Urine Color YELLOW Urine Clarity CLEAR Urine pH 6.0 5-9 Urine Specific [place] 1.020 1.016-1.022 Urine Protein NEGATIVE NEGATIVE Urine Glucose (UA) NEGATIVE NEGATIVE Urine Ketones NEGATIVE NEGATIVE Urine Nitrite NEGATIVE NEGATIVE Urine Bilirubin NEGATIVE NEGATIVE Urine Urobilinogen 0.2 < = 1.0 MG/DL Urine Leukocyte Esterase NEGATIVE NEGATIVE Urine RBC (Auto) NEGATIVE NEGATIVE Urine RBC 2-5 H /HPF Urine WBC RARE /HPF Urine Squamous Epithelial Cells 5-10 /HPF Urine Crystals NONE /LPF Urine Bacteria TRACE /HPF Urine Casts NONE /LPF Urine Mucus NEGATIVE /LPF Urine Culture Indicated NO My Orders Orders - KIRSTIN LORENZO MD Cbc With Automated Diff (06/13/20 09:21) Comprehensive Metabolic Panel (06/13/20 09:21) Magnesium (06/13/20 09:21) Ua Culture If Indicated (06/13/20 09:21) Ct Head Wo (06/13/20 09:45) Ct Lumbar Spine Wo (06/13/20 09:45) Tramadol Tablet (Ultram Tablet) (06/13/20 09:45) Ketorolac Injection (Toradol Injection) (06/13/20 12:15) Tramadol Tablet (Ultram Tablet) (06/13/20 12:15) Medications Given in ED Current Medications Medications Dose Ordered Sig/Mana Route Start Time Stop Time Status Last Admin Dose Admin Ketorolac Tromethamine 15 mg ONCE ONCE IVP 06/13/20 12:15 06/13/20 12:16 DC 06/13/20 12:29 15 MG Tramadol HCl 50 mg ONCE ONCE PO 06/13/20 09:45 06/13/20 09:47 DC 06/13/20 09:50 50 MG Tramadol HCl 50 mg ONCE ONCE PO 06/13/20 12:15 06/13/20 12:16 DC 06/13/20 12:29 50 MG Vital Signs/I&O 06/13/20 06/13/20 09:11 12:20 Temp 36.6 Pulse 77 75 Resp 18 15 B/P (MAP) 144/103 (117) 153/84 Pulse Ox 94 95 O2 Delivery Room Air Room Air Blood Pressure Mean: 117 Progress Progress Note : Progress Note Patient was given Ultram. This resolved her headache and reduced her back pain. She informed me that she normally takes 100 mg of Ultram every 6 hours, not 50 mg. She was given the additional 50 mg and a dose of Toradol before discharge to further treat her pain. There is a small fracture noted of the right sacrum as well. See discharge instructions. Diagnostic Imaging Diagonstic Imaging: CT Plain Films/CT/US/NM/MRI: head Comments CT head viewed by me and report reviewed. See report below: NAME: YOVANY BLISS [facility] REC#: [id number] PT STATUS: REG ER : 1945 PHYSICIAN: KIRSTIN LORENZO MD ADMIT DATE: 06/13/20/ER Signed Date of Exam:06/13/20 CT HEAD WO PROCEDURE: CT head without contrast. TECHNIQUE: Multiple contiguous axial images were obtained through the brain without the use of intravenous contrast. Auto Exposure Controls were utilized during the CT exam to meet ALARA standards for radiation dose reduction. INDICATION: Fall. FINDINGS: There is no evidence of intracranial hemorrhage. No extra-axial fluid collection. The ventricles and cortical gyral pattern are normal. Pituitary is not enlarged. The mastoid air cells and paranasal sinuses are well-aerated and clear. There are no calvarial fractures. IMPRESSION: Negative CT head without contrast. Dictated by: Dictated on workstation # [id number] Dict: 06/13/20 1109 Trans: 06/13/20 1116 [facility] [id number] Interpreted by: MUKUL MAYA MD Electronically signed by: MUKUL MAYA MD 06/13/20 1116 Diagonstic Imaging: CT Plain Films/CT/US/NM/MRI: other (lumbar spine) Comments The lumbar spine CT viewed by me and report reviewed. See report below: NAME: YOVANY BLISS [facility] REC#: [id number] PT STATUS: REG ER : 1945 PHYSICIAN: KIRSTIN LORENZO MD ADMIT DATE: 06/13/20/ER Signed Date of Exam:06/13/20 CT LUMBAR SPINE WO PROCEDURE: CT lumbar spine without contrast. TECHNIQUE: Multiple contiguous axial images were obtained through the lumbar spine without the use of intravenous contrast. Sagittal and coronal reformations were then performed. Auto Exposure Controls were utilized during the CT exam to meet ALARA standards for radiation dose reduction. INDICATION: Fall. COMPARISON: 01/11/2020. FINDINGS: Scoliosis again demonstrated of the lumbosacral spine. Advanced degenerative disc disease. Old mild wedge compression fracture of L1 anteriorly is unchanged. Facets show diffuse degenerative hypertrophic changes. No fractures are demonstrated. The paraspinal soft tissues are normal. The sacral ala show a very small nondisplaced fracture along the very anterior superior aspect of the right sacral ala. IMPRESSION: 1. Minimal fracture nondisplaced along the anterior superior aspect of the right sacral ala. 2. Old compression fracture of L1. Dictated by: Dictated on workstation # [id number] Dict: 06/13/20 1111 Trans: 06/13/20 1116 [facility] [id number] Interpreted by: MUKUL MAYA MD Electronically signed by: MUKUL MAYA MD 06/13/20 1116 Departure Impression Primary Impression: Sacral fracture Qualified Codes: S32.10XA - Unspecified fracture of sacrum, initial encounter for closed fracture Additional Impressions: Low back pain Qualified Codes: M54.5 - Low back pain Acute headache Qualified Codes: R51 - Headache Generalized weakness Disposition: 01 HOME, SELF-CARE Condition: Improved Departure-Patient Inst. Decision time for Depature: 12:14 Referrals: MAC HANDY MD (PCP/Family) Primary Care Physician Patient Instructions: Fractures, HEADACHE Add. Discharge Instructions: Continue your current medications including Ultram (tramadol). You may add Tylenol (acetaminophen) up to 1000 mg every 6 hours as needed for additional pain relief. Follow-up with your primary care provider soon as possible. Return to emergency room or call if you have other emergent questions or concerns. All discharge instructions reviewed with patient and/or family. Voiced understanding. KIRSTIN LORENZO MD Jun 13, 2020 12:17
[2020-06-13 12:20] VITALS: BP 153/84
== END 2020-06-13 12:20 | disposition home or self-care (01) ==
LOC: EDUNIT# 09:09 → ER 09:10
DX: S32.10XA Unspecified fracture of sacrum, initial encounter for closed fracture (principal); S32.010D Wedge compression fracture of first lumbar vertebra, subsequent encounter for fracture with routine healing; R51 Headache; R53.1 Weakness; J44.9 Chronic obstructive pulmonary disease, unspecified; I10 Essential (primary) hypertension; K21.9 Gastro-esophageal reflux disease without esophagitis; K58.0 Irritable bowel syndrome with diarrhea; K58.1 Irritable bowel syndrome with constipation; F03.90 Unspecified dementia, unspecified severity, without behavioral disturbance, psychotic disturbance, mood disturbance, and anxiety; G62.9 Polyneuropathy, unspecified; E03.9 Hypothyroidism, unspecified; F41.9 Anxiety disorder, unspecified; F31.9 Bipolar disorder, unspecified; M06.9 Rheumatoid arthritis, unspecified; M79.7 Fibromyalgia; G89.29 Other chronic pain; Z88.2 Allergy status to sulfonamides; Z79.890 Hormone replacement therapy; Z86.69 Personal history of other diseases of the nervous system and sense organs; Z85.41 Personal history of malignant neoplasm of cervix uteri; Z79.52 Long term (current) use of systemic steroids; Z87.891 Personal history of nicotine dependence; W19.XXXA Unspecified fall, initial encounter
CPT/HCPCS: 36415; 70450; 72131; 80053; 81000; 83735; 85025

== ENCOUNTER 2020-06-15 09:42 | Emergency (ER) | payer MEDICARE, MEDICAID ==
[~2020-06-15] VITALS: Ht 157.4 cm; Wt 54.5 kg
[~2020-06-15 09:42] MED LIST changes: -DIVA500T15; +DIVA500T15 PO
[2020-06-15] MEDS ORDERED: LACTATED RINGERS 1,000 ML IV STA (09:51)
[2020-06-15] MEDS ORDERED: METOCLOPRAMIDE INJ 10 MG/2 ML (REGLAN) IVP STA (09:51)
--- NOTE | 2020-06-15 09:57 | ED Abdominal Pain ---
General Stated Complaint: ABDOMINAL PAIN Source of Information: Patient, EMS History of Present Illness Date Seen by Provider: Jun 15, 2020 Time Seen by Provider: 09:54 Initial Comments 75-year-old female presents with lower abdominal pain. Patient has had many frequent visits to the ER recently. She was seen 2 days ago and diagnosed with this light sacral fracture. Patient is taking tramadol and Tylenol for this. Patient reports that she's had some lower abdominal pain for a day or 2 but it was worse this morning. The pain is worse if she stands better if she lays her sats. She reports she had a small bowel movement this morning. She does have some mild nausea. No vomiting. She denies any fevers chills or urinary symptoms. Allergies and Home Medications Allergies Coded Allergies: Sulfa (Sulfonamide Antibiotics) (Verified Allergy, Unknown, 05/17/19) Home Medications Amitriptyline HCl 25 Mg Tablet, 25 MG PO HS, (Reported) Aripiprazole 15 Mg Tablet, 15 MG PO DAILY, (Reported) Cholecalciferol (Vitamin D3) 1,000 Unit Tablet, 1,000 UNIT PO DAILY, (Reported) Epinephrine 0.3 Mg/0.3 Ml Auto.injct, 0.3 MG IJ Q15M PRN for angioedema Prescribed by: KIRSTIN GARZA on 12/24/19 1658 Gabapentin 300 Mg Capsule, 300 MG PO BID, (Reported) Levothyroxine Sodium 75 Mcg Tablet, 75 MCG PO DAILY, (Reported) Lidocaine 15 Gm Cream..g., 1 GM TP TID PRN for PAIN-SEVERE (8-10) Prescribed by: DEONNA MOBLEY on 01/06/202029 Meclizine HCl 25 Mg Tablet, 25 MG PO Q6H PRN for VERTIGO Prescribed by: KIRSTIN GARZA on 05/17/19 0440 Memantine HCl 5 Mg Tablet, 5 MG PO BID 5 MG PO Q AM and HS. Prescribed by: BLU QUINONES on 06/10/15 1523 Metoprolol Tartrate 50 Mg Tablet, 50 MG PO DAILY, (Reported) Ondansetron 4 Mg Tab.rapdis, 4 MG PO Q6H PRN for NAUSEA/VOMITING Prescribed by: ELIEZER LOPEZ on 06/14/19 1715 Pantoprazole Sodium 40 Mg Tablet.dr, 40 MG PO DAILY, (Reported) Potassium Chloride 20 Meq Tablet.er, 20 MEQ PO BID Prescribed by: STEPH FINN on 01/11/20 144 Prednisone 10 Mg Tab, 30 MG PO DAILY Prescribed by: REGLA LAWRENCE on 05/11/19 1441 Sucralfate 1 Gm Tablet, 1 GM PO QIDACHS Prescribed by: REGLA LAWRENCE on 03/05/19 191 Sumatriptan Succinate 100 Mg Tablet, 0.5 TAB PO PRN PRN for HEADACHE May repeat in 2 hours; Max 200 MG/24 hours. Prescribed by: BLU QUINONES on 06/10/15 155 Tramadol HCl 50 Mg Tablet, 50 MG PO BID, (Reported) Vitamin E 400 Unit Capsule, 400 UNIT PO DAILY, (Reported) Vortioxetine Hydrobromide 5 Mg Tablet, 5 MG PO DAILY, (Reported) [Biotin] , 10,000 MCG PO Evening Prescribed by: BLU QUINONES on 06/12/15 153 [Folic Acid 1MG] , 2 MG PO DAILY, (Reported) [Iron 65MG] , 65 MG PO Evening Prescribed by: BLU QUINONES on 06/12/15 153 [Nitrostat] , 0.4 MG SL UD Q5 min X3 PRN. Prescribed by: BLU QUINONES on 06/10/15 155 [Potassium] , 20 MEQ PO BID, (Reported) Patient Home Medication List Home Medication List Reviewed: Yes Review of Systems Review of Systems Constitutional: No chills, No fever EENTM: No Symptoms Reported Respiratory: Denies Cough, Denies Shortness of Air, Denies SOA at Rest Cardiovascular: Denies Chest Pain, Denies Irregular Heart Rate, Denies Lightheadedness Gastrointestinal: Abdominal Pain (lower abdomen diffuse); Denies Diarrhea; N ausea; Denies Vomiting Genitourinary: Denies Burning, Denies Frequency Musculoskeletal: see HPI Skin: no symptoms reported Psychiatric/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: No Symptoms Reported Endocrine: No Symptoms Reported Past [id number] Hx Past Med/Social Hx: Reviewed Nursing Past Med/Soc Hx Patient Social History Alcohol Beverage of Choice: Wine Type Used: Cigarettes Former Smoker, Quit: May 13, 2009 2nd Hand Smoke Exposure: No Recent Hopitalizations: No Immunizations Up To Date Tetanus Booster (TDap): More than 5yrs PED Vaccines UTD: Yes Date of Pneumonia Vaccine: Sep 04, 2019 Date of Influenza Vaccine: Sep 04, 2019 Seasonal Allergies Seasonal Allergies: Yes Past Medical History Surgeries: Yes (PORT;HYST/BSO;BOWEL/RECTAL SURGERY;HIATAL HERNIA REPAIR;EGD/C- SCOPES) Abdominal, Adenoidectomy, Bowel Surgery, Gallbladder, Hysterectomy, Oophorectom y, Rectal, Tonsillectomy Respiratory: Yes Pneumonia, COPD Cardiac: Yes (PSVT; RBBB) High Cholesterol, Hypertension 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: Yes Dementia, Headaches /Migraines, Neuropathy, Vertigo [employer] History: Hysterectomy, Menopausal Genitourinary: No Gastrointestinal: Yes (BOWEL/RECTAL SURGERY;RECTAL PROLAPSE REPAIR;HIATAL HERNIA REPAIR; U.COLITIS) Colitis, Gastroesophageal Reflux, Crohns Disease, Chronic Constipation, Chronic Diarrhea, Hiatal Hernia, Gall Bladder Disease, Irritable Bowel Musculoskeletal: Yes (FALLS, USES WALKER) Osteoporosis, Arthritis, Fibromyalgia, Rheumatoid Arthritis, Chronic Back Pain Endocrine: Yes Hypothyroidsim HEENT: Yes Glaucoma Cancer: Yes Cervical Did You Recieve Any Treatments: Yes What Type of Treatment Did You: Surgical Intervention Psychosocial: Yes (EXTENSIVE PSYCH ISSUES) Anxiety, Bipolar, Depression Integumentary: No Blood Disorders: No Family Medical History No Pertinent Family Hx PSH: -HYSTERECTOMY/BILATERAL SALPINGO-OOPHORECTOMY -BOWEL SURGERY FOR OBSTRUCTION -LAPAROSCOPY -RECTAL PROLAPSE REPAIR/SIGMOID RESECTION -UMBILICAL HERNIA REPAIR -HIATAL HERNIA REPAIR -HEMORRHOIDECTOMY -TONSILLECTOMY/ADENOIDECTOMY -CHOLECYSTECTOMY -PORT LEFT CHEST HAS CHRONIC RECTAL PAIN COMPLAINTS Physical Exam Vital Signs Vital Signs - First Documented 06/15/20 06/15/20 09:42 12:14 Temp 36.3 Pulse 72 Resp 18 B/P (MAP) 150/93 (112) Pulse Ox 96 O2 Delivery Room Air Capillary Refill : Height/Weight/BMI Height: 5'2.00" Weight: 125lbs. 0oz. [id number]; 21.00 BMI Method:Stated General Appearance: thin, other (uncomfortable) HEENT: PERRL/EOMI Neck: full range of motion, supple Respiratory: lungs clear, normal breath sounds Cardiovascular: normal peripheral pulses, regular rate, rhythm Gastrointestinal: soft, tenderness (bilateral lower abdomen diffusely) Back: no CVA tenderness Neurologic/Psychiatric: alert, normal mood/affect, oriented x 3 Skin: normal color, warm/dry Focused Exam Lactate Level 06/15/20 11:10: Lactic Acid Level 0.75 Lactic Acid Level Laboratory Tests Test 06/15/20 11:10 Lactic Acid Level 0.75 MMOL/L (0.50-2.00) Progress/Results/Core Measures Results/Orders Lab Results Laboratory Tests Test 06/15/20 10:24 06/15/20 10:25 06/15/20 11:10 Range/Units White Blood Count 6.4 4.3-11.0 10^3/uL Red Blood Count 3.70 L 4.35-5.85 10^6/uL Hemoglobin 10.0 L 11.5-16.0 G/DL Hematocrit 32 L 35-52 % Mean Corpuscular Volume 87 80-99 FL Mean Corpuscular Hemoglobin 27 25-34 PG Mean Corpuscular Hemoglobin Concent 31 L 32-36 G/DL Red Cell Distribution Width 16.9 H 10.0-14.5 % Platelet Count 235 130-400 10^3/uL Mean Platelet Volume 9.7 7.4-10.4 FL Neutrophils (%) (Auto) 58 42-75 % Lymphocytes (%) (Auto) 29 12-44 % Monocytes (%) (Auto) 11 0-12 % Eosinophils (%) (Auto) 2 0-10 % Basophils (%) (Auto) 0 0-10 % Neutrophils # (Auto) 3.7 1.8-7.8 X 10^3 Lymphocytes # (Auto) 1.9 1.0-4.0 X 10^3 Monocytes # (Auto) 0.7 0.0-1.0 X 10^3 Eosinophils # (Auto) 0.1 0.0-0.3 10^3/uL Basophils # (Auto) 0.0 0.0-0.1 10^3/uL Sodium Level 143 135-145 MMOL/L Potassium Level 3.4 L 3.6-5.0 MMOL/L Chloride Level 107 98-107 MMOL/L Carbon Dioxide Level 28 21-32 MMOL/L Anion Gap 8 5-14 MMOL/L Blood Urea Nitrogen 16 7-18 MG/DL Creatinine 0.85 0.60-1.30 MG/DL Estimat Glomerular Filtration Rate > 60 BUN/Creatinine Ratio 19 Glucose Level 91 70-105 MG/DL Calcium Level 8.8 8.5-10.1 MG/DL Corrected Calcium 9.2 8.5-10.1 MG/DL Total Bilirubin 0.4 0.1-1.0 MG/DL Aspartate Amino Transf (AST/SGOT) 14 5-34 U/L Alanine Aminotransferase (ALT/SGPT) 15 0-55 U/L Alkaline Phosphatase 84 40-136 U/L Total Protein 5.8 L 6.4-8.2 GM/DL Albumin 3.5 3.2-4.5 GM/DL Lipase 18 8-78 U/L Urine Color YELLOW Urine Clarity CLEAR Urine pH 7.0 5-9 Urine Specific [place] <=1.005 1.016-1.022 Urine Protein NEGATIVE NEGATIVE Urine Glucose (UA) NEGATIVE NEGATIVE Urine Ketones NEGATIVE NEGATIVE Urine Nitrite NEGATIVE NEGATIVE Urine Bilirubin NEGATIVE NEGATIVE Urine Urobilinogen 0.2 < = 1.0 MG/DL Urine Leukocyte Esterase NEGATIVE NEGATIVE Urine RBC (Auto) NEGATIVE NEGATIVE Urine RBC NONE /HPF Urine WBC 0-2 /HPF Urine Squamous Epithelial Cells 2-5 /HPF Urine Crystals NONE /LPF Urine Bacteria NEGATIVE /HPF Urine Casts NONE /LPF Urine Mucus NEGATIVE /LPF Urine Culture Indicated NO Lactic Acid Level 0.75 0.50-2.00 MMOL/L My Orders Orders - HOUSEREZIO L DO Acute Abd Series (06/15/20 09:51) Cbc With Automated Diff (06/15/20 09:51) Comprehensive Metabolic Panel (06/15/20 09:51) Lactic Acid Analyzer (06/15/20 09:51) Lipase (06/15/20 09:51) Ua Culture If Indicated (06/15/20 09:51) Metoclopramide Injection (Reglan Injecti (06/15/20 09:51) Lactated Ringers (Lr 1000 Ml Iv Solution (06/15/20 09:51) Vital Signs/I&O 06/15/20 06/15/20 09:42 12:14 Temp 36.3 Pulse 72 76 Resp 18 18 B/P (MAP) 150/93 (112) 150/93 Pulse Ox 96 98 O2 Delivery Room Air Progress Progress Note : Time: 11:58 Progress Note Patient with constipation on her x-ray. No acute findings on labs or other findings to indicate other pathology. Patient does have a known sacral fracture and is not ambulating as much as normal. She is also increased her tramadol another medication with decreased fluid intake. I discussed with her the need that continue to ambulate, to drink plenty of fluids, she should add MiraLAX to her laxative regimen that she RA uses. Patient reports that she has to take laxatives or she deals with constipation. Patient otherwise stable and will be discharged home Diagnostic Imaging Diagonstic Imaging: Xray Plain Films/CT/US/NM/MRI: chest, abdomen Comments [facility]. [place], [place] NAME: YOVANY BLISS [facility] REC#: [id number] PT STATUS: REG ER : 1945 PHYSICIAN: EZIO HOUSER DO ADMIT DATE: 06/15/20/ER Signed Date of Exam:06/15/20 ACUTE ABD SERIES REASON FOR EXAM: Abdominal pain across the abdomen. COMPARISON: 06/06/2020. TECHNIQUE: 3 views of the chest and abdomen were obtained. FINDINGS: Lung volumes are normal. A left port is stable in configuration. No focal consolidation or pulmonary mass. No large pleural effusion or pneumothorax. Moderate hiatal hernia is present. The cardiac silhouette is unremarkable. No acute osseous abnormalities. Left shoulder arthroplasty changes are noted. The bowel gas pattern is nondistended. No large collection of free intraperitoneal air is seen. A moderate amount of gas and fecal material are present in the colon. No abnormal extraosseous calcifications are present. Dextroscoliosis of the lumbar spine is seen. IMPRESSION: 1. Moderate amount of stool in the colon, likely representing constipation. No evidence of bowel obstruction or large collections of free intraperitoneal air. 2. No acute process in the chest. 3. Moderate hiatal hernia. Departure Impression Primary Impression: Constipation Qualified Codes: K59.00 - Constipation, unspecified Additional Impression: Closed sacral fracture Qualified Codes: S32.10XD - Unspecified fracture of sacrum, subsequent encounter for fracture with routine healing Disposition: 01 HOME, SELF-CARE Condition: Stable Departure-Patient Inst. Referrals: MAC HANDY MD (PCP/Family) Primary Care Physician Patient Instructions: Constipation in Adults, Dealing with Constipation from the Drugs You Take Add. Discharge Instructions: Add MiraLAX as needed for soft daily stool Ambulate frequently to help with your bowels Drink plenty of fluids Follow-up with your primary care provider in 2-3 days if symptoms are not improving EZIO HOUSER DO Jun 15, 2020 09:57
[2020-06-15 10:32] LABS: WHITE BLOOD COUNT 6.4 10^3/uL (4.3-11.0)
[2020-06-15 10:33] LABS: BASOPHILS % (AUTO) 0 % (0-10); EOSINOPHILS # (AUTO) 0.1 10^3/uL (0.0-0.3); EOSINOPHILS % (AUTO) 2 % (0-10); HEMATOCRIT 32 % (35-52); LYMPHOCYTES # (AUTO) 1.9 X 10^3 (1.0-4.0); LYMPHOCYTES % (AUTO) 29 % (12-44); MEAN CORPUSCULAR HEMOGLOBIN 27 PG (25-34); MEAN CORPUSCULAR HGB CONC 31 G/DL (32-36); MEAN CORPUSCULAR VOLUME 87 FL (80-99); MEAN PLATELET VOLUME 9.7 FL (7.4-10.4); MONOCYTES # (AUTO) 0.7 X 10^3 (0.0-1.0); MONOCYTES % (AUTO) 11 % (0-12); NEUTROPHILS # (AUTO) 3.7 X 10^3 (1.8-7.8); NEUTROPHILS % (AUTO) 58 % (42-75); PLATELET COUNT 235 10^3/uL (130-400); RED CELL DISTRIBUTION WIDTH 16.9 % (10.0-14.5)
[2020-06-15 10:41] LABS: BILIRUBIN,URINE NEGATIVE (NEGATIVE); CLARITY,URINE CLEAR; COLOR,URINE YELLOW; GLUCOSE, URINE (UA) NEGATIVE (NEGATIVE); KETONES,URINE NEGATIVE (NEGATIVE); LEUKOCYTE ESTERASE ,URINE NEGATIVE (NEGATIVE); NITRITE,URINE NEGATIVE (NEGATIVE); PROTEIN,URINE NEGATIVE (NEGATIVE)
[2020-06-15 10:52] LABS: ALANINE AMINOTRANSFERASE 15 U/L (0-55); ALBUMIN 3.5 GM/DL (3.2-4.5); ALKALINE PHOSPHATASE 84 U/L (40-136); BILIRUBIN,TOTAL 0.4 MG/DL (0.1-1.0); BUN/CREATININE RATIO 19; CALCIUM 8.8 MG/DL (8.5-10.1); CARBON DIOXIDE 28 MMOL/L (21-32); CHLORIDE 107 MMOL/L (98-107); CREATININE SERUM 0.85 MG/DL (0.60-1.30); GFR ESTIMATED > 60; GLUCOSE 91 MG/DL (70-105); LIPASE 18 U/L (8-78); POTASSIUM 3.4 MMOL/L (3.6-5.0); SODIUM 143 MMOL/L (135-145); TOTAL PROTEIN 5.8 GM/DL (6.4-8.2)
[2020-06-15 11:00] LABS: BACTERIA,URINE NEGATIVE /HPF; WBC,URINE 0-2 /HPF
--- NOTE | 2020-06-15 11:40 | Diagnostic Imaging Report ---
REASON FOR EXAM: Abdominal pain across the abdomen. COMPARISON: 06/06/2020. TECHNIQUE: 3 views of the chest and abdomen were obtained. FINDINGS: Lung volumes are normal. A left port is stable in configuration. No focal consolidation or pulmonary mass. No large pleural effusion or pneumothorax. Moderate hiatal hernia is present. The cardiac silhouette is unremarkable. No acute osseous abnormalities. Left shoulder arthroplasty changes are noted. The bowel gas pattern is nondistended. No large collection of free intraperitoneal air is seen. A moderate amount of gas and fecal material are present in the colon. No abnormal extraosseous calcifications are present. Dextroscoliosis of the lumbar spine is seen. IMPRESSION: 1. Moderate amount of stool in the colon, likely representing constipation. No evidence of bowel obstruction or large collections of free intraperitoneal air. 2. No acute process in the chest. 3. Moderate hiatal hernia. Dictated by: Dictated on workstation # [id number]
[2020-06-15 12:14] VITALS: BP 150/93
[2020-06-16] MEDS ORDERED: ALPR0.254 PO (11:10)
[2020-06-16] MEDS ORDERED: ATOR40TA70 PO (11:10)
[2020-06-16] MEDS ORDERED: TRZ50T PO (11:10)
[2020-06-16] MEDS ORDERED: FURO20TA4 PO (11:10)
[2020-06-16] MEDS ORDERED: PANT40TA3 PO (11:10)
[2020-06-16] MEDS ORDERED: SUMA100T3 PO (11:10)
[2020-06-16] MEDS ORDERED: DULO30CA49 PO (11:10)
[2020-06-16] MEDS ORDERED: POTA20TA15 PO (11:10)
[2020-06-16] MEDS ORDERED: ARIP10TA17 PO (11:10)
[2020-06-16] MEDS ORDERED: NITR0.4T42 PO (11:10)
[2020-06-16] MEDS ORDERED: TRAM50TA3 PO (11:10)
[2020-06-16] MEDS ORDERED: MTP25TSR PO (11:10)
[2020-06-16] MEDS ORDERED: METO10TA3 PO (12:11)
[2020-06-16] MEDS ORDERED: PRD10T PO (12:11)
== END 2020-06-15 12:13 | disposition home or self-care (01) ==
LOC: EDUNIT# 09:42 → ER 09:43
DX: K59.00 Constipation, unspecified (principal); S32.10XD Unspecified fracture of sacrum, subsequent encounter for fracture with routine healing; J44.9 Chronic obstructive pulmonary disease, unspecified; I10 Essential (primary) hypertension; F03.90 Unspecified dementia, unspecified severity, without behavioral disturbance, psychotic disturbance, mood disturbance, and anxiety; G62.9 Polyneuropathy, unspecified; G43.909 Migraine, unspecified, not intractable, without status migrainosus; K21.9 Gastro-esophageal reflux disease without esophagitis; M79.7 Fibromyalgia; M06.9 Rheumatoid arthritis, unspecified; E03.9 Hypothyroidism, unspecified; G89.29 Other chronic pain; M54.9 Dorsalgia, unspecified; F41.9 Anxiety disorder, unspecified; F31.9 Bipolar disorder, unspecified; K58.0 Irritable bowel syndrome with diarrhea; Z88.2 Allergy status to sulfonamides; Z79.52 Long term (current) use of systemic steroids; Z79.891 Long term (current) use of opiate analgesic; Z85.41 Personal history of malignant neoplasm of cervix uteri; Z79.890 Hormone replacement therapy; Z87.891 Personal history of nicotine dependence; X58.XXXD Exposure to other specified factors, subsequent encounter
CPT/HCPCS: 36415; 74022; 80053; 81000; 83605; 83690; 85025

== ENCOUNTER 2020-06-15 23:32 | Inpatient (IN) | payer MEDICARE, MEDICAID ==
[~2020-06-15] VITALS: Ht 157 cm; Wt 35.9 kg
[2020-06-16] VITALS (14 sets, daily range): BP systolic 115–196; BP diastolic 79–115
[2020-06-16 00:20] LABS: BASOPHILS % (AUTO) 0 % (0-10); EOSINOPHILS # (AUTO) 0.1 10^3/uL (0.0-0.3); EOSINOPHILS % (AUTO) 1 % (0-10); HEMATOCRIT 33 % (35-52); HEMOGLOBIN 10.1 G/DL (11.5-16.0); LYMPHOCYTES # (AUTO) 0.9 X 10^3 (1.0-4.0); LYMPHOCYTES % (AUTO) 16 % (12-44); MEAN CORPUSCULAR HEMOGLOBIN 27 PG (25-34); MEAN CORPUSCULAR HGB CONC 31 G/DL (32-36); MEAN CORPUSCULAR VOLUME 87 FL (80-99); MEAN PLATELET VOLUME 9.6 FL (7.4-10.4); MONOCYTES # (AUTO) 0.6 X 10^3 (0.0-1.0); MONOCYTES % (AUTO) 10 % (0-12); NEUTROPHILS # (AUTO) 4.4 X 10^3 (1.8-7.8); NEUTROPHILS % (AUTO) 73 % (42-75); PLATELET COUNT 244 10^3/uL (130-400); RED CELL DISTRIBUTION WIDTH 17.2 % (10.0-14.5)
[2020-06-16 00:40] LABS: PROTHROMBIN TIME PATIENT 13.9 SEC (12.2-14.7)
[2020-06-16 00:47] LABS: ALANINE AMINOTRANSFERASE 13 U/L (0-55); ALBUMIN 3.5 GM/DL (3.2-4.5); ALKALINE PHOSPHATASE 83 U/L (40-136); AMYLASE 64 U/L (25-125); BILIRUBIN,TOTAL 0.4 MG/DL (0.1-1.0); BUN/CREATININE RATIO 14; CALCIUM 8.9 MG/DL (8.5-10.1); CARBON DIOXIDE 27 MMOL/L (21-32); CHLORIDE 107 MMOL/L (98-107); CREATINE KINASE 29 U/L (29-168); CREATININE SERUM 0.87 MG/DL (0.60-1.30); GFR ESTIMATED > 60; GLUCOSE 102 MG/DL (70-105); LIPASE 16 U/L (8-78); MAGNESIUM 2.1 MG/DL (1.6-2.4); POTASSIUM 3.5 MMOL/L (3.6-5.0); SODIUM 143 MMOL/L (135-145); TOTAL PROTEIN 5.8 GM/DL (6.4-8.2)
[2020-06-16] MEDS ORDERED: ENOXAPARIN 80 MG/0.8 ML (LOVENOX) SYR SC ONE (01:30)
--- NOTE | 2020-06-16 02:06 | ED Cardiac General ---
History of Present Illness General Chief Complaint: Chest Pain Stated Complaint: CHEST PAIN;DYSPNEA ON EXERTION Nursing Triage Note: chest pain that started today Source: patient (PT IS LIMITED HISTORIAN, POOR MEMORY AND CONFUSED TO TIME), EMS, old records History of Present Illness Date Seen by Provider: Jun 15, 2020 Time Seen by Provider: 23:32 Initial Comments PT ARRIVES VIA EMS FROM HOME--PT LIVES ALONE--BRINGS WALKER WITH HER PT STATES "I WAS COOKING BREAKFAST AND I GOT DIZZY AND I COULDN'T WALK AND BREATHE AT THE SAME TIME AND MY CHEST HURT" "I SLEPT FROM 10 TIL 6" --BUT HAS NO SENSE OF TIME TO WHETHER IT IS DAY OR NIGHT, OR IF SHE SLEPT FROM 10 PM TO 6 AM OR VICE-VERSAL. PT STATES SHE DOES NOT HAVE ANY SHORTNESS OF BREATH NOW AND DOES NOT HAVE ANY CHEST PAIN NOW. ONLY COMPLAINS OF A HEADACHE NOW. THIS IS A CHRONIC COMPLAINT PT HAS NO OTHER COMPLAINTS EMS GAVE ASPIRIN THIS SAME EMS CREW BROUGHT PT HERE THIS MORNING--WERE CALLED FOR THE SAME COMPLAINT. ER PHYSICIAN NOTES ONLY REPORT THAT PT C/O LOWER ABDOMINAL PAIN . PT HAD BEEN DX WITH SACRAL FRACTURE 2 DAYS PRIOR AND PLACED ON TRAMADOL. PT WAS DX WITH CONSTIPATION AND DISMISSED TO HOME. THIS IS PT'S 13TH VISIT IN 2019 FOR VARIOUS COMPLAINTS, AND HER 7TH VISIT HERE SINCE 06/06/20 FOR VARIOUS COMPLAINTS. PT DID NOT MEET ADMISSION CRITERIA WITH ANY PREVIOUS VISITS PT HAD SEEN HER PCP, DR. HANDY ON 06/08/20 AFTER BEING IN THE ER THE NIGHT BEFORE FOR NOT BEING ABLE TO SLEEP AND HAD BEEN UP ALL NIGHT, AND ALL DAY. SHE THEN RETURNED THE NIGHT OF 06/08/20 BECAUSE SHE COULDN'T STAY AWAKE--HAD COMPLAINTS OF HEADACHE, ANXIETY AND HTN AT THOSE VISITS. RETURNED AGAIN 06/11/20 WITH SAME COMPLAINTS OF HEADACHE, ANXIETY AND HTN. RETURNED AGAIN 06/13/20 WITH HEADACHE AND BACK PAIN , AND DX WITH SACRAL FRACTURE--HAD REPORTED AT THAT TIME THAT SHE FELL A WEEK PRIOR. PT HAS HAD MULTIPLE CT SCANS IN THE LAST 8 MONTHS. HAD HEAD/CERVICAL SPINE CT ON 05/29/20 WHICH DID NOT SHOW ANYTHING ACUTE HAD HEAD CT AND LUMBAR SPINE CT ON 06/13/20--NO ACUTE PROCESS IN HEAD. 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 AMOR AT [facility] Allergies and Home Medications Allergies Coded Allergies: Sulfa (Sulfonamide Antibiotics) (Verified Allergy, Unknown, 05/17/19) Home Medications Amitriptyline HCl 25 Mg Tablet, 25 MG PO HS, (Reported) Aripiprazole 15 Mg Tablet, 15 MG PO DAILY, (Reported) Cholecalciferol (Vitamin D3) 1,000 Unit Tablet, 1,000 UNIT PO DAILY, (Reported) Epinephrine 0.3 Mg/0.3 Ml Auto.injct, 0.3 MG IJ Q15M PRN for angioedema Prescribed by: KIRSTIN GARZA on 12/24/19 1658 Gabapentin 300 Mg Capsule, 300 MG PO BID, (Reported) Levothyroxine Sodium 75 Mcg Tablet, 75 MCG PO DAILY, (Reported) Lidocaine 15 Gm Cream..g., 1 GM TP TID PRN for PAIN-SEVERE (8-10) Prescribed by: DEONNA MOBLEY on 01/06/202029 Meclizine HCl 25 Mg Tablet, 25 MG PO Q6H PRN for VERTIGO Prescribed by: KIRSTIN GARZA on 05/17/19 0440 Memantine HCl 5 Mg Tablet, 5 MG PO BID 5 MG PO Q AM and HS. Prescribed by: BLU QUINONES on 06/10/15 1523 Metoprolol Tartrate 50 Mg Tablet, 50 MG PO DAILY, (Reported) Ondansetron 4 Mg Tab.rapdis, 4 MG PO Q6H PRN for NAUSEA/VOMITING Prescribed by: ELIEZER LOPEZ on 06/14/19 1715 Pantoprazole Sodium 40 Mg Tablet.dr, 40 MG PO DAILY, (Reported) Potassium Chloride 20 Meq Tablet.er, 20 MEQ PO BID Prescribed by: STEPH FINN on 01/11/20 1442 Prednisone 10 Mg Tab, 30 MG PO DAILY Prescribed by: REGLA LAWRENCE on 05/11/19 1441 Sucralfate 1 Gm Tablet, 1 GM PO QIDACHS Prescribed by: REGLA LAWRENCE on 03/05/19 1914 Sumatriptan Succinate 100 Mg Tablet, 0.5 TAB PO PRN PRN for HEADACHE May repeat in 2 hours; Max 200 MG/24 hours. Prescribed by: BLU QUINONES on 06/10/15 1555 Tramadol HCl 50 Mg Tablet, 50 MG PO BID, (Reported) Vitamin E 400 Unit Capsule, 400 UNIT PO DAILY, (Reported) Vortioxetine Hydrobromide 5 Mg Tablet, 5 MG PO DAILY, (Reported) [Biotin] , 10,000 MCG PO Evening Prescribed by: BLU QUINONES on 06/12/15 153 [Folic Acid 1MG] , 2 MG PO DAILY, (Reported) [Iron 65MG] , 65 MG PO Evening Prescribed by: BLU QUINONES on 06/12/15 153 [Nitrostat] , 0.4 MG SL UD Q5 min X3 PRN. Prescribed by: BLU QUINONES on 06/10/15 1555 [Potassium] , 20 MEQ PO BID, (Reported) Patient Home Medication List Home Medication List Reviewed: Yes Review of Systems Review of Systems Constitutional: see HPI, dizziness EENTM: No Symptoms Reported Respiratory: See HPI, SOA With Exertion Cardiovascular: See HPI, Chest Pain, Lightheadedness Gastrointestinal: No Symptoms Reported; Denies Abdominal Pain, Denies Nausea, Denies Vomiting Genitourinary: No Symptoms Reported Musculoskeletal: no symptoms reported; No back pain, No neck pain Skin: no symptoms reported Psychiatric/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: See HPI, Headache; Denies Numbness, Denies Pa resthesia, Denies Seizure, Denies Tingling, Denies Weakness Endocrine: No Symptoms Reported Hematologic/Lymphatic: No Symptoms Reported Past Gkxczde-Ndjklw-Rgvoxx Hx Past Med/Social Hx: Reviewed and Corrections made Patient Social History Alcohol Use: Rarely Uses Alcohol Beverage of Choice: Wine Recreational Drug Use: No Smoking Status: Former Smoker Type Used: Cigarettes Former Smoker, Quit: May 13, 2009 2nd Hand Smoke Exposure: No Recent Foreign Travel: No Contact w/Someone Who Travel: No Recent Infectious Disease Expo: No Recent Hopitalizations: No Physical Abuse: No Sexual Abuse: No Mistreated: No Fear: No Immunizations Up To Date Tetanus Booster (TDap): Less than 5yrs PED Vaccines UTD: Yes Date of Pneumonia Vaccine: Sep 04, 2019 Date of Influenza Vaccine: Sep 04, 2019 Seasonal Allergies Seasonal Allergies: Yes Past Medical History Surgeries: Yes (PORT;HYST/BSO;BOWEL/RECTAL SURGERY;HIATAL HERNIA REPAIR;EGD/C- SCOPES) Abdominal, Adenoidectomy, Bowel Surgery, Gallbladder, Hysterectomy, Joint Replacement, Oophorectomy, Rectal, Tonsillectomy Respiratory: Yes Pneumonia, COPD Cardiac: Yes (PSVT; RBBB/LAFB) High Cholesterol, Hypertension 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: Yes Dementia, Headaches /Migraines, Neuropathy, Vertigo 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, 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 Genitourinary: No Gastrointestinal: Yes (BOWEL/RECTAL SURGERY;RECTAL PROLAPSE REPAIR;HIATAL HERNIA REPAIR; U.COLITIS) Colitis, Gastroesophageal Reflux, Crohns Disease, Chronic Constipation, Chronic Diarrhea, Hiatal Hernia, Gall Bladder Disease, Irritable Bowel Musculoskeletal: Yes (FALLS, USES WALKER; R TOES 3,4,5 AMPUTATED) Amputee, Osteoporosis, Arthritis, Fibromyalgia, Rheumatoid Arthritis, Chronic Back Pain Endocrine: Yes Hypothyroidsim HEENT: Yes Glaucoma Cancer: Yes Cervical Did You Recieve Any Treatments: Yes What Type of Treatment Did You: Surgical Intervention Psychosocial: Yes (EXTENSIVE PSYCH ISSUES) Anxiety, Bipolar, Depression Integumentary: No Blood Disorders: No Family Medical History No Pertinent Family Hx PSH: -HYSTERECTOMY/BILATERAL SALPINGO-OOPHORECTOMY -BOWEL SURGERY FOR OBSTRUCTION -LAPAROSCOPY -RECTAL PROLAPSE REPAIR/SIGMOID RESECTION -UMBILICAL HERNIA REPAIR -HIATAL HERNIA REPAIR -HEMORRHOIDECTOMY -TONSILLECTOMY/ADENOIDECTOMY -CHOLECYSTECTOMY -PORT LEFT CHEST -RIGHT TOES 3,4,5 AMPUTATED -LEFT SHOULDER REPLACEMENT HAS CHRONIC RECTAL PAIN COMPLAINTS Physical Exam Vital Signs Vital Signs - First Documented 06/15/20 23:45 Temp 36.8 Pulse 75 Resp 18 B/P (MAP) 143/87 (105) Pulse Ox 94 O2 Delivery Room Air Capillary Refill : Less Than 3 Seconds Height, Weight, BMI Height: 5'2.00" Weight: 125lbs. 0oz. 56.477659yq; 28.00 BMI Method:Stated General Appearance: No Apparent Distress, WD/WN, Other (RESTING QUIETLY/SLEEPING, EASILY AWAKENS AND IS IN NO DISTRESS OR APPARENT DISCOMFORT AND DOES NOT APPEAR ILL. ) HEENT: PERRL/EOMI Neck: Normal Inspection, Non Tender Respiratory: Chest Non Tender, Normal Breath Sounds, No Accessory Muscle Use, No Respiratory Distress Cardiovascular: Regular Rate, Rhythm, No Murmur Extremity: Normal Range of Motion, Non Tender, Pedal Edema (TRACE BILATERALLY. ), Other (FEET WITH CHRONIC DEGENERATIVE CHANGES) Neurologic/Psychiatric: Alert, No Motor/Sensory Deficits (GROSSLY INTACT), Normal Mood/Affect, icu specialist II-XII Norm as Tested, Other (ORIENTED TO PERSON, PLACE, CONFUSED TO TIME AND SOMETIMES TO SITUATION/WHY SHE IS HERE. ) Skin: Normal Color, Warm/Dry Progress/Results/Core Measures Results/Orders Lab Results Laboratory Tests Test 06/16/20 00:05 Range/Units White Blood Count 6.0 4.3-11.0 10^3/uL Red Blood Count 3.80 L 4.35-5.85 10^6/uL Hemoglobin 10.1 L 11.5-16.0 G/DL Hematocrit 33 L 35-52 % Mean Corpuscular Volume 87 80-99 FL Mean Corpuscular Hemoglobin 27 25-34 PG Mean Corpuscular Hemoglobin Concent 31 L 32-36 G/DL Red Cell Distribution Width 17.2 H 10.0-14.5 % Platelet Count 244 130-400 10^3/uL Mean Platelet Volume 9.6 7.4-10.4 FL Neutrophils (%) (Auto) 73 42-75 % Lymphocytes (%) (Auto) 16 12-44 % Monocytes (%) (Auto) 10 0-12 % Eosinophils (%) (Auto) 1 0-10 % Basophils (%) (Auto) 0 0-10 % Neutrophils # (Auto) 4.4 1.8-7.8 X 10^3 Lymphocytes # (Auto) 0.9 L 1.0-4.0 X 10^3 Monocytes # (Auto) 0.6 0.0-1.0 X 10^3 Eosinophils # (Auto) 0.1 0.0-0.3 10^3/uL Basophils # (Auto) 0.0 0.0-0.1 10^3/uL Prothrombin Time 13.9 12.2-14.7 SEC INR Comment 1.0 0.8-1.4 Activated Partial Thromboplast Time 28 24-35 SEC Sodium Level 143 135-145 MMOL/L Potassium Level 3.5 L 3.6-5.0 MMOL/L Chloride Level 107 98-107 MMOL/L Carbon Dioxide Level 27 21-32 MMOL/L Anion Gap 9 5-14 MMOL/L Blood Urea Nitrogen 12 7-18 MG/DL Creatinine 0.87 0.60-1.30 MG/DL Estimat Glomerular Filtration Rate > 60 BUN/Creatinine Ratio 14 Glucose Level 102 70-105 MG/DL Calcium Level 8.9 8.5-10.1 MG/DL Corrected Calcium 9.3 8.5-10.1 MG/DL Magnesium Level 2.1 1.6-2.4 MG/DL Total Bilirubin 0.4 0.1-1.0 MG/DL Aspartate Amino Transf (AST/SGOT) 13 5-34 U/L Alanine Aminotransferase (ALT/SGPT) 13 0-55 U/L Alkaline Phosphatase 83 40-136 U/L Total Creatine Kinase 29 29-168 U/L Creatine Kinase MB 1.0 <6.6 NG/ML Myoglobin 33.2 10.0-92.0 NG/ML Troponin I < 0.028 <0.028 NG/ML B-Type Natriuretic Peptide 66.0 <100.0 PG/ML Total Protein 5.8 L 6.4-8.2 GM/DL Albumin 3.5 3.2-4.5 GM/DL Amylase Level 64 25-125 U/L Lipase 16 8-78 U/L Valproic Acid (Depakene) Level < 2.0 L 50.0-100.0 UG/ML My Orders Orders - REGLA LAWRENCE DO Ed Iv/Invasive Line Start (06/15/20 23:35) Ekg Tracing (06/15/20 23:35) Monitor-Rhythm Ecg Trace Only (06/15/20 23:35) Cbc With Automated Diff (06/15/20 23:35) Magnesium (06/15/20 23:35) Comprehensive Metabolic Panel (06/15/20 23:35) Myoglobin Serum (06/15/20 23:35) Protime With Inr (06/15/20 23:35) Partial Thromboplastin Time (06/15/20 23:35) O2 (06/15/20 23:35) Ed Iv/Invasive Line Start (06/15/20 23:35) Creatine Kinase (06/15/20 23:35) Creatine Kinase Mb (06/15/20 23:35) Lipase (06/15/20 23:35) Amylase (06/15/20 23:35) BNP (06/15/20 23:35) Troponin I (06/15/20 23:35) Chest 1 View, Ap/Pa Only (06/16/20 00:01) Enoxaparin Injection (Lovenox Injection) (06/16/20 01:30) Medications Given in ED Current Medications Medications Dose Ordered Sig/Mana Route Start Time Stop Time Status Last Admin Dose Admin Enoxaparin Sodium 70 mg ONCE ONCE SC 06/16/20 01:30 06/16/20 01:31 DC 06/16/20 01:52 70 MG Vital Signs/I&O 06/15/20 06/15/20 06/15/20 23:45 23:45 23:53 Temp 36.8 Pulse 75 Resp 18 B/P (MAP) 143/87 (105) Pulse Ox 94 98 O2 Delivery Room Air Room Air Room Air Blood Pressure Mean: 105 Progress Progress Note : Progress Note PT HAD NO COMPLAINTS FOR ENTIRE ER STAY--SLEPT/RESTED QUIETLY FOR ENTIRE STAY. Initial ECG Impression Date: Jun 15, 2020 Initial ECG Impression Time: 23:37 Initial ECG Rate: 77 Initial ECG Rhythm: Normal Sinus (RBBB, LAFB) Initial ECG Comparisson: Unchanged Diagnostic Imaging Comments CXR--NO ACUTE PROCESS, PENDING RADIOLOGIST REVIEW Reviewed: Reviewed by Me Departure Communication (Admissions) 0128--SPOKE WITH DR. DICK, HOSPITALIST ON FOR [facility] [place], ACCEPTS PT FOR ADMIT. WILL CONSULT CARDIOLOGY Impression Primary Impression: Chest pain Additional Impressions: Dyspnea on exertion Dementia Disposition: ADMITTED INPATIENT Condition: Stable Admissions Decision to Admit Reason: Admit from ER (General) Decision to Admit/Date: Jun 16, 2020 Time/Decision to Admit Time: 01:30 Departure-Patient Inst. Referrals: MAC HANDY MD (PCP/Family) Primary Care Physician REGLA LAWRENCE DO Jun 16, 2020 02:06
[2020-06-16] MEDS ORDERED: NITROGLYCERIN 0.4 MG SL TABS BTL 25'S SL PRN ×2 (02:30→22:00)
[2020-06-16] MEDS ORDERED: ACETAMINOPHEN 500 MG TAB (TYLENOL) PO PRN (02:30)
[2020-06-16] MEDS ORDERED: morphine INJ 4 MG/ML 1 ML (VIAL/SYRINGE) IV PRN (02:30)
[2020-06-16 03:51] LABS: BASOPHILS % (AUTO) 0 % (0-10); EOSINOPHILS % (AUTO) 0 % (0-10); HEMATOCRIT 37 % (35-52); HEMOGLOBIN 11.6 G/DL (11.5-16.0); LYMPHOCYTES # (AUTO) 1.1 X 10^3 (1.0-4.0); LYMPHOCYTES % (AUTO) 15 % (12-44); MEAN CORPUSCULAR HEMOGLOBIN 27 PG (25-34); MEAN CORPUSCULAR HGB CONC 31 G/DL (32-36); MEAN CORPUSCULAR VOLUME 86 FL (80-99); MEAN PLATELET VOLUME 9.7 FL (7.4-10.4); MONOCYTES # (AUTO) 0.4 X 10^3 (0.0-1.0); MONOCYTES % (AUTO) 5 % (0-12); NEUTROPHILS # (AUTO) 5.6 X 10^3 (1.8-7.8); NEUTROPHILS % (AUTO) 79 % (42-75); PLATELET COUNT 270 10^3/uL (130-400); RED CELL DISTRIBUTION WIDTH 17.1 % (10.0-14.5); WHITE BLOOD COUNT 7.1 10^3/uL (4.3-11.0)
[2020-06-16 04:07] LABS: ALANINE AMINOTRANSFERASE 16 U/L (0-55); ALBUMIN 3.9 GM/DL (3.2-4.5); ALKALINE PHOSPHATASE 94 U/L (40-136); BILIRUBIN,TOTAL 0.5 MG/DL (0.1-1.0); BUN/CREATININE RATIO 12; CALCIUM 9.5 MG/DL (8.5-10.1); CARBON DIOXIDE 26 MMOL/L (21-32); CHLORIDE 108 MMOL/L (98-107); CREATININE SERUM 0.93 MG/DL (0.60-1.30); GFR ESTIMATED 59; GLUCOSE 117 MG/DL (70-105); SODIUM 144 MMOL/L (135-145); TOTAL PROTEIN 6.7 GM/DL (6.4-8.2)
--- NOTE | 2020-06-16 06:07 | Pulmonary Consultation ---
History of Present Illness History of Present Illness Date Seen by Provider: Jun 16, 2020 Time Seen by Provider: 06:00 Date of Admission Allergies and Home Medications Allergies Coded Allergies: Sulfa (Sulfonamide Antibiotics) (Verified Allergy, Unknown, 05/17/19) Home Medications Amitriptyline HCl 25 Mg Tablet, 25 MG PO HS, (Reported) Aripiprazole 15 Mg Tablet, 15 MG PO DAILY, (Reported) Cholecalciferol (Vitamin D3) 1,000 Unit Tablet, 1,000 UNIT PO DAILY, (Reported) Epinephrine 0.3 Mg/0.3 Ml Auto.injct, 0.3 MG IJ Q15M PRN for angioedema Prescribed by: KIRSTIN GARZA on 12/24/19 165 Gabapentin 300 Mg Capsule, 300 MG PO BID, (Reported) Levothyroxine Sodium 75 Mcg Tablet, 75 MCG PO DAILY, (Reported) Lidocaine 15 Gm Cream..g., 1 GM TP TID PRN for PAIN-SEVERE (8-10) Prescribed by: EDONNA MOBLEY on 01/06/202029 Meclizine HCl 25 Mg Tablet, 25 MG PO Q6H PRN for VERTIGO Prescribed by: KIRSTIN GARZA on 05/17/19 0440 Memantine HCl 5 Mg Tablet, 5 MG PO BID 5 MG PO Q AM and HS. Prescribed by: BLU QUINONES on 06/10/15 152 Metoprolol Tartrate 50 Mg Tablet, 50 MG PO DAILY, (Reported) Ondansetron 4 Mg Tab.rapdis, 4 MG PO Q6H PRN for NAUSEA/VOMITING Prescribed by: ELIEZER LOPEZ on 06/14/19 1715 Pantoprazole Sodium 40 Mg Tablet.dr, 40 MG PO DAILY, (Reported) Potassium Chloride 20 Meq Tablet.er, 20 MEQ PO BID Prescribed by: STEPH FINN on 01/11/20 1442 Prednisone 10 Mg Tab, 30 MG PO DAILY Prescribed by: REGLA LAWRENCE on 05/11/19 1441 Sucralfate 1 Gm Tablet, 1 GM PO QIDACHS Prescribed by: REGLA LAWRENCE on 03/05/19 1914 Sumatriptan Succinate 100 Mg Tablet, 0.5 TAB PO PRN PRN for HEADACHE May repeat in 2 hours; Max 200 MG/24 hours. Prescribed by: BLU QUINONES on 06/10/15 1555 Tramadol HCl 50 Mg Tablet, 50 MG PO BID, (Reported) Vitamin E 400 Unit Capsule, 400 UNIT PO DAILY, (Reported) Vortioxetine Hydrobromide 5 Mg Tablet, 5 MG PO DAILY, (Reported) [Biotin] , 10,000 MCG PO Evening Prescribed by: BLU QUINONES on 06/12/15 153 [Folic Acid 1MG] , 2 MG PO DAILY, (Reported) [Iron 65MG] , 65 MG PO Evening Prescribed by: BLU QUINONES on 06/12/15 1530 [Nitrostat] , 0.4 MG SL UD Q5 min X3 PRN. Prescribed by: BLU QUINONES on 06/10/15 1555 [Potassium] , 20 MEQ PO BID, (Reported) Past Fippykf-Vimetq-Vncofh Hx Patient Social History Alcohol Use: Denies Use Alcohol Beverage of Choice: Wine Recreational Drug Use: No Smoking Status: Former Smoker Type Used: Cigarettes Former Smoker, Quit: May 13, 2009 2nd Hand Smoke Exposure: No Recent Foreign Travel: No Contact w/Someone Who Travel: No Recent Infectious Disease Expo: No Recent Hopitalizations: No Physical Abuse: No Sexual Abuse: No Mistreated: No Fear: No Immunizations Up To Date Tetanus Booster (TDap): Less than 5yrs PED Vaccines UTD: Yes Date of Pneumonia Vaccine: Nov 17, 2019 Date of Influenza Vaccine: Sep 04, 2019 Seasonal Allergies Seasonal Allergies: Yes Past Medical History Surgeries: Yes (PORT;HYST/BSO;BOWEL/RECTAL SURGERY;HIATAL HERNIA REPAIR;EGD/C- SCOPES) Abdominal, Adenoidectomy, Bowel Surgery, Gallbladder, Hysterectomy, Oophorectomy, Rectal, Tonsillectomy Respiratory: Yes Pneumonia, COPD Cardiac: Yes (PSVT; RBBB) High Cholesterol, Hypertension 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: Yes Dementia, Headaches /Migraines, Neuropathy, Vertigo 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, 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 Genitourinary: No Gastrointestinal: Yes (BOWEL/RECTAL SURGERY;RECTAL PROLAPSE REPAIR;HIATAL HERNIA REPAIR; U.COLITIS) Colitis, Gastroesophageal Reflux, Crohns Disease, Chronic Constipation, Chronic Diarrhea, Hiatal Hernia, Gall Bladder Disease, Irritable Bowel Musculoskeletal: Yes (FALLS, USES WALKER) Osteoporosis, Arthritis, Fibromyalgia, Rheumatoid Arthritis, Chronic Back Pain Endocrine: Yes Hypothyroidsim HEENT: Yes Glaucoma Cancer: Yes Cervical Did You Recieve Any Treatments: Yes What Type of Treatment Did You: Surgical Intervention Psychosocial: Yes (EXTENSIVE PSYCH ISSUES) Anxiety, Bipolar, Depression Integumentary: No Blood Disorders: No Family Medical History Patient reports no known family medical history. No Pertinent Family Hx PSH: -HYSTERECTOMY/BILATERAL SALPINGO-OOPHORECTOMY -BOWEL SURGERY FOR OBSTRUCTION -LAPAROSCOPY -RECTAL PROLAPSE REPAIR/SIGMOID RESECTION -UMBILICAL HERNIA REPAIR -HIATAL HERNIA REPAIR -HEMORRHOIDECTOMY -TONSILLECTOMY/ADENOIDECTOMY -CHOLECYSTECTOMY -PORT LEFT CHEST HAS CHRONIC RECTAL PAIN COMPLAINTS Review of Systems Time Seen by Provider: 06:07 Sepsis Event Evaluation Height, Weight, BMI Height: 5'2.00" Weight: 125lbs. 0oz. 56.764713qk; 23.00 BMI Method:Stated Exam Exam Vital Signs Date Time Temp Pulse Resp B/P (MAP) Pulse Ox O2 Delivery O2 Flow Rate FiO2 06/16/20 05:00 77 146/99 (115) 94 Room Air 06/16/20 04:15 78 172/112 (132) 95 Room Air 06/16/20 04:00 Room Air 06/16/20 03:45 75 179/115 (136) 100 Room Air 06/16/20 03:15 78 156/111 (126) 96 Room Air 06/16/20 03:00 79 164/102 (122) 96 Room Air 06/16/20 02:45 79 158/107 (124) 97 Room Air 06/16/20 02:30 80 06/16/20 02:30 36.4 81 161/97 (118) 98 Room Air 06/16/20 02:20 Room Air 06/16/20 02:06 36.8 80 18 167/97 95 Room Air 06/15/20 23:53 98 Room Air 06/15/20 23:45 36.8 75 18 143/87 (105) 94 Room Air 06/15/20 23:45 Room Air I & O 06/16/20 07:00 Output Total 600 ml Balance -600 ml Height & Weight Height: 5'2.00" Weight: 125lbs. 0oz. 56.016956fb; 23.00 BMI Method:Stated Capillary Refill: Less Than 3 Seconds Results Lab Laboratory Tests 06/16/20 00:05 06/16/20 03:42 Assessment/Plan Assessment/Plan CP -troponin neg x 2 hx of COPD with SOB worse with exertion -start duoneb QID and advair -Pt will need ambulatory desat test Hx of RA -Pt has a left mediport Hx of BiPolar Will transfer to 4th floor with tele. JEREMY DALY DO Jun 16, 2020 06:07
--- NOTE | 2020-06-16 07:51 | Diagnostic Imaging Report ---
EXAMINATION: Chest radiograph, portable AP view. DATE: 06/16/2020 1:18 AM hours. INDICATION: 75-year-old female, chest pain. COMPARISON: June 11, 2020. FINDINGS: There is a left total reverse shoulder prosthesis. Stable overall appearance of the cardiomediastinal silhouette. There is no identified pneumothorax. There is no large pleural effusion. There is no identified interval focal airspace consolidation. IMPRESSION: 1. No identified interval acute cardiopulmonary abnormality. Dictated by: Dictated on workstation # [id number]
[2020-06-16] MEDS: ASPIRIN E.C. 81 MG (ECOTRIN) TAB PO SCH (08:15)
[2020-06-16] MEDS: meTOproloL SUCCINATE 50 MG (TOPROL XL) TAB PO SCH (08:21)
--- NOTE | 2020-06-16 08:42 | NUR ---
This nurse called SBAR report to Eunice HALL on 4th floor. Patient taken to room 402 via wheel chair by WONG Plascencia.
[2020-06-16] MEDS ORDERED: ENOXAPARIN 80 MG/0.8 ML (LOVENOX) SYR SC SCH (09:00)
--- NOTE | 2020-06-16 09:15 | NUR ---
This RN took over patient care this time. patient alert and orientated on room air no complaints at this time
--- NOTE | 2020-06-16 09:52 | NUR ---
Current BP is 162/100. Dr Francis notified and stated no additional meds at this time. Patient to have stress test today
--- NOTE | 2020-06-16 09:54 | History & Physical-Hospitalist ---
DEONNA ACOSTA MED STUDENT 06/16/20 0954: History of Present Illness HPI/Chief Complaint CC: chest pain HPI: Nanette Yañez is a 75 yo F with hx of minor dementia, anxiety, CHF, and GERD who presents with chest pain. The patient is well known to [facility] and was diagnosed with a minimal non-displaced right sacral ala fracture on CT 3 days ago, and denies falling since. She lives with her dog in an apartment with 10 hours of home health care daily and walks with a walker at baseline. Yesterday she states she had an episode of dizziness when cooking with subsequent chest pain and nausea. The patient reports an episode of SOB when realizing that she would not be home to take care of her dog, but no SOB since. The patient denies vomiting, abdominal pain, constipation, and diarrhea. She was seen in the ED and had negative Troponins at midnight and 3am. 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 Unconcerning labs and imaging in the ER including CBC, CMP, BNP, coagulation panels, liver and pancreas enzymes, and CXR. The patient currently denies chest pain, SOB, nausea, and other complaints. Source: patient, EMS notes reviewed Date Seen 06/16/20 Time Seen by a Provider: 09:00 Attending Physician Mary Jo Wu Pankaj K MD Referring Physician Date of Admission Jun 16, 2020 at 01:30 Home Medications & Allergies Home Medications Reviewed patient Home Medication Reconciliation performed by pharmacy medication reconciliations planetarium technician and/or nursing. Patients Allergies have been reviewed. Allergies Allergies Coded Allergies Sulfa (Sulfonamide Antibiotics) (Verified Allergy, Unknown, 05/17/19) Past Thgncei-Nzceqq-Ditxmx Hx Past Med/Social Hx: Reviewed and Corrections made Patient Social History Alcohol Use: Rarely Uses Alcohol Beverage of Choice: Wine Recreational Drug Use: No Smoking Status: Former Smoker Former Smoker, Quit: May 13, 2009 Type Used: Cigarettes 2nd Hand Smoke Exposure: No Recent Foreign Travel: No Contact w/other who traveled: No Recent Hopitalizations: No Recent Infectious Disease Expo: No Immunizations Up To Date Tetanus Booster (TDap): Less than 5yrs Pediatric: Yes Date of Pneumonia Vaccine: Nov 17, 2019 Date of Influenza Vaccine: Sep 04, 2019 Seasonal Allergies Seasonal Allergies: Yes Past Medical History Surgeries: Abdominal, Adenoidectomy, Bowel Surgery, Gallbladder, Hysterectomy, Joint Replacement, Oophorectomy, Rectal, Tonsillectomy Cardiac: High Cholesterol, Hypertension 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: Dementia, Headaches /Migraines, Neuropathy, Vertigo Hysterectomy, Menopausal Gastrointestinal: Colitis, Gastroesophageal Reflux, Crohns Disease, Chronic Constipation, Chronic Diarrhea, Hiatal Hernia, Gall Bladder Disease, Irritable Bowel Musculoskeletal: Amputee, Osteoporosis, Arthritis, Fibromyalgia, Rheumatoid Arthritis, Chronic Back Pain Endocrine: Hypothyroidsim HEENT: Glaucoma Cancer: Cervical Did You Recieve Any Treatments: Yes What Type of Treatment Did You: Surgical Intervention Psychosocial: Anxiety, Bipolar, Depression History of Blood Disorders: No Family History Patient reports no known family medical history. No Pertinent Family Hx PSH: -HYSTERECTOMY/BILATERAL SALPINGO-OOPHORECTOMY -BOWEL SURGERY FOR OBSTRUCTION -LAPAROSCOPY -RECTAL PROLAPSE REPAIR/SIGMOID RESECTION -UMBILICAL HERNIA REPAIR -HIATAL HERNIA REPAIR -HEMORRHOIDECTOMY -TONSILLECTOMY/ADENOIDECTOMY -CHOLECYSTECTOMY -PORT LEFT CHEST -RIGHT TOES 3,4,5 AMPUTATED -LEFT SHOULDER REPLACEMENT HAS CHRONIC RECTAL PAIN COMPLAINTS Review of Systems Constitutional: no symptoms reported EENTM: no symptoms reported Respiratory: short of breath Cardiovascular: chest pain Gastrointestinal: nausea Physical Exam Physical Exam Vital Signs Vital Signs - First Documented 06/15/20 23:45 Temp 36.8 Pulse 75 Resp 18 B/P (MAP) 143/87 (105) Pulse Ox 94 O2 Delivery Room Air Capillary Refill : Less Than 3 Seconds Height, Weight, BMI Height: 5'2.00" Weight: 125lbs. 0oz. [id number]; 23.00 BMI Method:Stated General Appearance: No Apparent Distress HEENT: PERRL/EOMI Neck: Full Range of Motion, Non Tender, Supple Respiratory: Chest Non Tender, Lungs Clear, Normal Breath Sounds, No Accessory Muscle Use, No Respiratory Distress Cardiovascular: Regular Rate, Rhythm, No Edema, No Murmur, Normal Peripheral Pulses Back: Normal Inspection Extremity: Normal Capillary Refill, No Pedal Edema Neurologic/Psychiatric: Alert, No Motor/Sensory Deficits Skin: Normal Color, Warm/Dry Results Results/Procedures Labs Laboratory Tests 06/16/20 00:05 06/16/20 03:42 Patient resulted labs reviewed. Imaging: Reviewed Imaging Films (CXR), Reviewed Imaging Report (CXR) Assessment/Plan Assessment and Plan Assessment: 1. Chest pain 2. CHF 3. GERD 4. Dementia 5. Anxiety 6. Sacral fracture 7. Hypothyroidism 8. Unspecified psychiatric 9. myalgias 10. Crohns Plan: Cardiology consultation Cardiology ordered echo. Continue Troponins as needed Monitor labs, provide interventions as needed Plan to discharge home unless situation changes. Clinical Quality Measures AMI/AHF: ASA po Prior to arrival: Yes (324) DVT/VTE Risk/Contraindication: Risk Factor Score Per Nursin RFS Level Per Nursing on Admit: 2=Moderate MARY JO WU DO 06/16/20 1302: History of Present Illness HPI/Chief Complaint CC: Chest pain with contsipation HPI: This is a 75yoWF who has been in the ER every day this past seven days and history of multiple ER visits in the past who presented with chest pain and co nstipation, she was admitted, cardiology consulted echocardiogram ordered and performed and stress test will be performed this afternoon. She is very tearful and appears to have some dementia, and will evaluate what support we can provide her. Source: patient, RN/MD Exam Limitations: no limitations Date Seen 06/16/20 Time Seen by a Provider: 10:00 Past Ddjybfe-Aytqig-Rlfhup Hx Past Med/Social Hx: Reviewed Nursing Past Med/Soc Hx, Reviewed and Corrections made Patient Social History Marrital Status: single Employed/Student: retired Alcohol Use: Denies Use Smoking Status: Never a Smoker Past Medical History Cardiac: Hypertension Endocrine: Hypothyroidsim Psychosocial: Anxiety, Depression Family History Patient reports no known family medical history. Review of Systems Constitutional: malaise, weakness Cardiovascular: chest pain Physical Exam Physical Exam General Appearance: No Apparent Distress, Chronically ill Eyes: Right Eye Normal Inspection, Right Eye PERRL HEENT: PERRL/EOMI, TMs Normal, Normal ENT Inspection, Pharynx Normal, Moist Mucous Membranes Neck: Full Range of Motion, Normal Inspection, Non Tender Respiratory: Chest Non Tender, Lungs Clear, Normal Breath Sounds, No Accessory Muscle Use, No Respiratory Distress Cardiovascular: Regular Rate, Rhythm, No Edema, No Gallop, No JVD, No Murmur, Normal Peripheral Pulses Gastrointestinal: Normal Bowel Sounds, No Organomegaly, No Pulsatile Mass, Non Tender, Soft Back: Normal Inspection, No CVA Tenderness, No Vertebral Tenderness Extremity: Normal Capillary Refill, Normal Inspection, Normal Range of Motion, Non Tender, No Calf Tenderness, No Pedal Edema Neurologic/Psychiatric: Alert, Oriented x3, No Motor/Sensory Deficits, Normal Mood/Affect Skin: Normal Color, Warm/Dry Lymphatic: No Adenopathy Assessment/Plan Admission Diagnosis Assessment: Chest pain Constipation Sacral fracture Tearfulness Dementia Plan: Social work consult Stress test today ECHO done May need senior behavioral unit Admission Status: Observation Supervisory-Addendum Brief Verification & Attestation Participated in pt care: history, MDM, physical Personally performed: exam, history, MDM, supervision of care Care discussed with: Medical Student Procedures: n/a Results interpretation: Verified all documentation Verification and Attestation of Medical Student E/M Service A medical student performed and documented this service in my presence. I reviewed and verified all information documented by the medical student and made modifications to such information, when appropriate. I personally performed the physical exam and medical decision making. Mary Jo Wu, Jun 16, 2020,21:53 DEONNA ACOSTA MED STUDENT Jun 16, 2020 09:54 MARY JO WU DO Jun 16, 2020 13:02
[2020-06-16] MEDS: RT-ALBUTEROL/IPRATROPIUM 3 ML (DUONEB) VIAL INH SCH ×4 (10:07→19:25)
[2020-06-16] MEDS: ADVAIR HFA 115/21 MCG INHALER 8 GM IH SCH ×2 (10:40→19:25)
--- NOTE | 2020-06-16 10:51 | Physical Therapy Evaluation ---
PT Evaluation-General Medical Diagnosis Admission Date Jun 16, 2020 at 01:30 Medical Diagnosis: chest pain Onset Date: Jun 15, 2020 Therapy Diagnosis Therapy Diagnosis: impaired mobility, strength, endurance Height/Weight Height (Feet): 5 Height (Inches): 2.00 Weight (Pounds): 125 Weight (Ounces): 0 Precautions Precautions/Isolations: Fall Prevention, Standard Precautions Referral Physician: Mary Jo Wu DO Reason for Referral: Evaluation/Treatment Medical History Pertinent Medical History: Arthritis, Dementia, Fractures, GERD, Neuropathy, Rheumatoid Arthritis Additional Medical History Past Medical History Surgeries: Abdominal, Adenoidectomy, Bowel Surgery, Gallbladder, Hysterectomy, Joint Replacement, Oophorectomy, Rectal, Tonsillectomy Cardiac: High Cholesterol, Hypertension 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: Dementia, Headaches /Migraines, Neuropathy, Vertigo Hysterectomy, Menopausal Gastrointestinal: Colitis, Gastroesophageal Reflux, Crohns Disease, Chronic Constipation, Chronic Diarrhea, Hiatal Hernia, Gall Bladder Disease, Irritable Bowel Musculoskeletal: Amputee, Osteoporosis, Arthritis, Fibromyalgia, Rheumatoid Arthritis, Chronic Back Pain Endocrine: Hypothyroidsim HEENT: Glaucoma Cancer: Cervical Did You Recieve Any Treatments: Yes What Type of Treatment Did You: Surgical Intervention Psychosocial: Anxiety, Bipolar, Depression Reviewed History: Yes Social History Patient is unclear about her home situation but appears to have scheduled assistance. Prior Prior Level of Function SCALE: Activities may be completed with or without assistive devices. 3-Ziqtttdydv-zfruakw completes the activity by him/herself with no assistance from a helper. 5-Set-up or Clean-up Assistance-helper sets up or cleans up; patient completes activity. Sandy assists only prior to or following the activity. 4-Supervision or Touching Assistance-helper provides verbal cues and/or touching/steadying and/or contact guard assistance as patient completes activity. Assistance may be provided throughout the activity or intermittently. 3-Partial/Moderate Assistance-helper does LESS THAN HALF the effort. Sandy lif ts, holds or supports trunk or limbs, but provides less than half the effort. 2-Substantial/Maximal Assistance-helper does MORE THAN HALF the effort. Sandy lifts or holds trunk or limbs and provides more than half the effort. 2-Ventvvxjc-xiqgkv does ALL the effort. Patient does none of the effort to complete the activity. Or, the assistance of 2 or more helpers is required for the patient to complete the activity. If activity was not attempted, code reason: 7-Patient Refused. 9-Not Applicable-not attempted and the patient did not perform the activity before the current illness, exacerbation or injury. 10-Not Attempted due to Environmental Limitations-(lack of equipment, weather restraints, etc.). 88-Not Attempted due to Medical Conditions or Safety Concerns. Bed Mobility: 6 Transfers (B,C,W/C): 6 Gait: 6 Indoor Mobility (Ambulation): Independent PT Evaluation-Current Subjective Patient in bed pre tx, agrees to PT, has no complaints of pain but states she needs to use the restroom. Female PT tech is assisting PT. Pt/Family Goals to be independent at home Objective Patient Orientation: Person, Place, Situation ROM/Strength ROM Lower Extremities WNL Strength Lower Extremities 4/5 gross BLE Sensory Hearing: Functional Sensation Right Lower Extremit: Intact Sensation Left Lower Extremity: Intact Transfers Roll Left to Right (QC): 6 Lying to Sitting/Side of Bed(Q: 4 Sit to Stand (QC): 4 Chair/Zck-ur-Wtrdt Xfer(QC): 4 Toilet Transfer (QC): 4 Patient toileted independently. Gait Does the Patient Walk?: Yes Mode of Locomotion: Walk Anticipated Mode of Locomotion: Walk Walk 10 feet (QC): 4 Distance: 20' Gait Assistive Device: FWW Comments/Gait Description steady, no LOB Balance Sitting Static: Normal Sitting Dynamic: Normal Standing Static: Normal Standing Dynamic: Good Treatment seated BLE exercises x15 (AP, LAQ) Assessment/Needs Patient has impaired mobility, strength, endurance. She ambulates with SBA. Patient in recliner post tx with nurse call, phone, tray, all needs met, legs elevated, patient instructed to call nurse if she needs to get up or go back to bed. Rehab Potential: Fair PT Penitentiary Goals Penitentiary Goals PT Dev Manager Goals Time Frame: Jun 23, 2020 Roll Left & Right (QC): 6 Sit to Lying (QC): 6 Lying-Sitting on Side/Bed(QC): 6 Sit to Stand (QC): 6 Chair/Rmj-fh-Hodix Xfer(QC): 6 Walk 10 feet (QC): 6 Walk 50ft with 2 Turns (QC): 6 Walk 150 ft (QC): 6 PT Plan Problem List Problem List: Activity Tolerance, Functional Strength, Safety, Balance, Gait, Transfer Treatment/Plan Treatment Plan: Continue Plan of Care Treatment Plan: Bed Mobility, Education, Functional Activity Rodolfo, Functional Strength, Gait, Safety, Therapeutic Exercise, Transfers Treatment Duration: Jun 23, 2020 Frequency: 6 times per week Estimated Hrs Per Day: .25 hour per day Patient and/or Family Agrees t: Yes Safety Risks/Education Patient Education: Gait Training, Transfer Techniques, Correct Positioning, Safety Issues Teaching Recipient: Patient Teaching Methods: Demonstration, Discussion Response to Teaching: Reinforcement Needed Discharge Recommendations Plan Patient will perform bed mobility and transfer training, balance and endurance training, functional strengthening, gait training, and education, to improve functional mobility and independence at home. Therapy Discharge Recommendati: Scheduled Assistance, Other, See Comments (NH) Time/GCodes Time In: 1005 Time Out: 1017 Total Billed Treatment Time: 12 Total Billed Treatment 1 visit CRISTINA Grey' ANA M EARLY PT Jun 16, 2020 10:51
[2020-06-16] MEDS ORDERED: SUMA100T3 PO (11:10)
[2020-06-16] MEDS ORDERED: TRZ50T PO (11:10)
[2020-06-16] MEDS ORDERED: ARIP10TA17 PO (11:10)
[2020-06-16] MEDS ORDERED: ALPR0.254 PO (11:10)
[2020-06-16] MEDS ORDERED: POTA20TA15 PO (11:10)
[2020-06-16] MEDS ORDERED: MTP25TSR PO (11:10)
[2020-06-16] MEDS ORDERED: PANT40TA3 PO (11:10)
[2020-06-16] MEDS ORDERED: DULO30CA49 PO (11:10)
[2020-06-16] MEDS ORDERED: ATOR40TA70 PO (11:10)
[2020-06-16] MEDS ORDERED: TRAM50TA3 PO (11:10)
[2020-06-16] MEDS ORDERED: FURO20TA4 PO (11:10)
[2020-06-16] MEDS ORDERED: NITR0.4T42 PO (11:10)
[2020-06-16] MEDS ORDERED: REGADENOSON 0.4 MG/5 ML SYR (LEXISCAN) IV ONE ×2 (11:30→15:05)
--- NOTE | 2020-06-16 12:06 | NUR ---
SPOKE WITH THE PT, CALLED HER CAREGIVER SHANIA BROWN, WENT THRU THE EXT MED HISTORY AND CALLED SHERLYN TO COMPLETE THE MED REC PT HAS A COUPLE OF MED BOTTLES WITH HER PERSONAL ITEMS- BUT MOST OF HER MEDICATIONS ARE STILL AT HOME. AFTER SPEAKING WITH THE PT AND HER GIVING ME DIRECTIONS ON HER MEDS (THAT DID NOT MATCH [facility] RECORDS) SHE TOLD ME SHANIA BROWN IS HER CAREGIVER AND HELP HER WITH HER MEDICATIONS. I REACHED OUT TO SHANIA AND SHE WAS ABLE TO GO OVER THE MEDICATIONS AND HER INFORMATION MATCHED THE EXT MED HISTORY. SHANIA DID LET ME KNOW THAT THE PT GETS CONFUSED EASILY AND WOULDNT HAVE ACCURATE INFORMATION REGARDING HER MEDS THE FOLLOWING MEDICATIONS WERE ALL FILLED ON 06-04-2020(ALL 30 DAYS SUPPLY): DEPAKOTE ER 500MG #30 GABAPENTIN 300MG #60 ABILIFY 10MG #30 POTASSIUM CK 20MEQ ER #120 METOPROLOL SUCC ER 25MG #60 ATORVASTATIN 40MG DULOXETINE 30MG #30 LEVOTHYROXINE 75MCG #30 TRAZODONE 50MG #30 PROTONIX 40MG #30 FUROSEMIDE 20MG #30
[2020-06-16] MEDS ORDERED: PRD10T PO (12:11)
[2020-06-16] MEDS ORDERED: METO10TA3 PO (12:11)
--- NOTE | 2020-06-16 12:46 | Occupational Therapy Eval ---
OT Evaluation-General/PLF Medical Diagnosis Admission Date Jun 16, 2020 at 01:30 Medical Diagnosis: chest pain Onset Date: Jun 15, 2020 Therapy Diagnosis Therapy Diagnosis: Decreased ADL status Height/Weight Height (Feet): 5 Height (Inches): 2.00 Weight (Pounds): 125 Weight (Ounces): 0 Precautions Precautions/Isolations: Fall Prevention, Standard Precautions Referral Physician: Mary Jo Wu DO Referral Reason: Activity Tolerance, Self Care, Evaluation/Treatment, Strengthening/ROM Medical History Pertinent Medical History: Arthritis, Dementia, Fractures, GERD, Neuropathy, Rheumatoid Arthritis Additional Medical History anx/ bipolar/ depression, fibromyalgia, glaucoma, CBP, RA, arthritis, OP, neuropathy, dementia, HTN, high cholesterol Current History Pt admits with chest pain, with c/o not being able to walk/ breathe at same time. This is pt's 7th visit since 06/06 for various reasons, including h/a, anxiety, HTN. Reviewed History: Yes Social History Home: Single Level Current Living Status: Alone Entry Into Home: Level Entry ADL-Prior Level of Function SCALE: Activities may be completed with or without assistive devices. 2-Naaxjhxatp-djggoop completes the activity by him/herself with no assistance from a helper. 5-Set-up or Clean-up Assistance-helper sets up or cleans up; patient completes activity. [place] assists only prior to or following the activity. 4-Supervision or Touching Assistance-helper provides verbal cues and/or touching/steadying and/or contact guard assistance as patient completes activity. Assistance may be provided throughout the activity or intermittently. 3-Partial/Moderate Assistance-helper does LESS THAN HALF the effort. Republic lifts, holds or supports trunk or limbs, but provides less than half the effort. 2-Substantial/Maximal Assistance-helper does MORE THAN HALF the effort. [place] lifts or holds trunk or limbs and provides more than half the effort. 1-Livuwdedu-nxncwf does ALL the effort. Patient does none of the effort to complete the activity. Or, the assistance of 2 or more helpers is required for the patient to complete the activity. If activity was not attempted, code reason: 7-Patient Refused. 9-Not Applicable-not attempted and the patient did not perform the activity before the current illness, exacerbation or injury. 10-Not Attempted due to Environmental Limitations-(lack of equipment, weather restraints, etc.). 88-Not Attempted due to Medical Conditions or Safety Concerns. ADL PLOF Comments Pt receives caregiver assist M-F for 10 hours a day. Pt states on weekends pt completes sponge bath and dressing/ toileting items IND. Self Care: Needed Some Help Functional Cognition: Independent DME/Equipment: Bath Chair, Grab Bars, Tub/Shower DME/Equipment Comments walker, SPC, gb "all over" - toilet/ shower, tub/shower, and sc. Drive Self: No OT Current Status Subjective Pt seen in bed. Pt states headache, no other pain noted. Pt c/o "personal issues," alert/ oriented. Agrees to OT eval. Mental Status/Objective Patient Orientation: Normal For Age Current Hand Dominance: Right Upper Extremity ROM WFL BUE Upper Extremity Coordination WFL BUE Upper Extremity Sensation Neuropathy BLE/ UE Upper Extremity Strength WFL BUE (3+/5) ADL-Treatment Eating (QC): 88 (Pt states she is at NPO status as she is receiving "testing". Pt states no difficulty with eating.) Oral Hygiene (QC): 6 (Completes oral sponge at bedside with IND per pt.) On/Off Footwear (QC): 6 (IND EOB with slip on shoes.) Other Treatments Pt educated on OT role. Pt states 10 hours of home care, pt alone on weekends and able to complete tasks with mod I (SPC and use of DME). Pt states she has been feeling weak, no pain noted other than "beginning of a migraine." Pt bed mob with SBA, reaches EOB and dons slip on shoes. Stands with SBA, completes RUE movement to bottom to represent toilet hygiene without LOB. Pt returns to sit EOB, denies going to chair stating just got back to bed. Pt educated on OT role once more and pt's ability to complete tasks with mod I. Pt agrees. No skilled OT tx rendered at this time. Pt returns to supine, all needs met, call light in reach. Education OT Patient Education: Progress toward Goal/Update tx plan, Purpose of tx/functional activities, Safety issues Teaching Recipient: Patient Teaching Methods: Demonstration, Discussion Response to Teaching: Verbalize Understanding, Return Demonstration OT Rfid Technician Goals Rfid Technician Goals 1=Demonstrate adherence to instructed precautions during ADL tasks. 2=Patient will verbalize/demonstrate understanding of assistive devices/modifications for ADL. 3=Patient will improve strength/tolerance for activity to enable patient to perform ADL's. OT Education/Plan Problem List/Assessment Assessment: No Skilled OT Needs ID'd Discharge Recommendations Plan/Recommendations: Discharge/Goals Met Treatment Plan/Plan of Care Treatment,Training & Education: Yes Patient would benefit from OT for education, treatment and training to promote independence in ADL's, mobility, safety and/or upper extremity function for ADL's. Plan of Care: OTHER (eval and d/c.) Treatment Duration: Jun 16, 2020 Frequency: 1 time per week (eval and d/c. ) Rehab Potential: Fair Time/GCodes Start Time: 11:54 Stop Time: 12:03 Total Time Billed (hr/min): 9 Billed Treatment Time 1, MAXXL (d/c) MARLY HENRY OTR Jun 16, 2020 12:46
--- NOTE | 2020-06-16 14:20 | NUR ---
"RD ASSESSMENT PMHx: pneumonia; COPD; hypercholesterolemia; HTN; GERD; Crohn's disease; chronic constipation/diarrhea; hiatal hernia; irritable bowel; osteoporosis; RA; hypothyroidism; CA(cervical) PT INTERACTION: Pt was awake and pleasant during consult for MST score. Pt states current appetite is good. Note pt is currently NPO, pending procedure. Pt states following a low-Na diet at home, and has some issues with chewing food, as she has dentures. Pt states some recent issues with nausea and constipation, and that her last BM was 06/15. Note pt not currently on bowel regimen per chart review. Pt states recent 30# wt loss since 01/2020. Note recent 3# wt loss x6mon, per chart review. Upon visual assessment, pt appears to be adequately nourished with no visible signs of muscle/fat wasting, and a BMI of 23.0 (Normal BMI for age). Given PO intake, wt hx, and visual assessment, pt does not meet criteria for malnutrition per ASPEN guidelines. ABNORMAL NUTRITION-RELATED LAB VALUES LOW: HIGH: Cl 108; glu 117 Est. kcal needs: 1425 kcal | 25 kcal/kg Est. Pro needs: 57 g Pro | 1.0 g Pro/kg PES STATEMENT: Inadequate oral intake (NI-2.1) related to nausea | constipation | NPO status as evidenced by pt interview | chart review INTERVENTION: Note pt is currently NPO. Would recommend diet advancement as medically able and as tolerated. Discontinue current supplementation order of Ensure Enlive with meals, per pt tolerance. Pt states she does not like the taste. Encouraged pt to eat when able. Will continue to follow and reassess as pt needs, intake, and status change. MONITOR/EVALUATE: PO Intake; Plan of Care; Hydration Status; Weight Status; Lab Values Radha Billings, MS, RD, LD"
--- NOTE | 2020-06-16 15:34 | NUR ---
CM/SS: Visited with pt as to plan for discharge Plan: When deemed appropriate, pt can return home with [facility] Summary: Pt is sitting up in her recliner at the time of the visit. This worker talks with pt as to her few trips to the ER. This worker is thinking pt has been there two times, however pt reports that she has been there six times in the last week. Discussed frequent visits to the ER. Pt reports she has lots of issues with her back and pain. Pt goes on to explain other health issues. Pt is tearful as to her sister not being well, estranged relationship with her son and does report that she has good friends in [place]. Pt does not plan to go to a skilled facility as she reports she has hours in the home. Pt reports her [place] worker to be Aurea. Pt also expresses frustration with having got a bill from hospital that is $24,000 and she can not pay it. Pt is reminder when you come to the hospital it is likely that you will have a medical bill or cost associated with the visit. Pt reports anxiety. This worker talks with pt about mental health services. Pt has had mental health in the past about 10 years ago at [facility]. Pt is open to having mental health services set up again at time of discharge. Pt is encouraged to work with physical therapy to get stronger. She verbalizes understanding. This worker will follow up.
--- NOTE | 2020-06-16 15:58 | NUR ---
IRF Evaluation Determination: Denied Explanation: Patient does not require active and ongoing intervention of multiple therapy disciplines (PT, OT, CAKE KNOCKER), at least one of which must be PT or OT. Thank you for this referral.
[2020-06-16] MEDS: ENOXAPARIN 60 MG/0.6 ML (LOVENOX) SYR SC SCH (17:45)
--- NOTE | 2020-06-16 17:45 | Consultation-Cardiology ---
HPI-Cardiology Cardiology Consultation: Date of Consultation 06/16/20 Date of Admission Attending Physician Mary Jo Dick DO Admitting Physician Luis Daniel Madden MD Consulting Physician Froilan FRANCIS MD HPI: Time Seen by a Provider: 09:00 Chief Complaint: Chest pain This is a 75-year-old lady who presents due to shortness of breath and chest pain. She follows with Dr. Rojas at [facility] in [place]. When I saw the patient she denied shortness of breath and chest pain. Chest pain was substernal with no significant radiation. Moderate intensity. No exacerbating or relieving factors. She denies active smoking. Negative family history. Review of Systems-Cardiology Review of Systems Constitutional: As described under HPI; No As described under HPI, No no symptoms reported, No chills, No fever, No lightheadedness Eyes: No As described under HPI, No no symptoms reported, No blindness, No blurred vision, No contact lenses, No drainage, No decreased acuity, No foreign body sensation, No pain, No vision change Ears/Nose/Throat: No As described under HPI, No no symptoms reported, No chronic hearing loss, No ear discharge, No ear pain, No nasal drainage, No ulcerations Respiratory: No no symptoms reported; As described under HPI; No As described under HPI, No cough, No orthopnea, No shortness of breath, No SOB with excertion Cardiovascular: No no symptoms reported; As described under HPI; No As described under HPI; chest pain; No edema, No irregular heart rate, No lightheadedness, No palpitations Gastrointestinal: No no symptoms reported, No As described under HPI, No abdomen distended, No abdominal pain, No blood streaked bowels, No constipation, No diarrhea, No nausea, No vomiting, No stool coloration changes Genitourinary: No As described under HPI, No burning, No dysuria, No discharge, No frequency, No flank pain, No hematuria, No urgency : Yes : No Skin: No rash, No skin related problems, No ulcerations Psychiatric/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: No anxiety, No depression, No seizure, No focal weakness, No syncope Hematologic: No bleeding abnormalities [id number] Hx Patient Social History Marrital Status: single Employed/Student: unemployed Alcohol Use: Denies Use Recreational Drug Use: No Smoking Status: Never a Smoker Former smoker/When Quit: Nov 05, 2009 Type Used: Cigarettes 2nd Hand Smoke Exposure: No Recent Foreign Travel: No Recent Infectious Disease Expo: No Hospitalization with Isolation: Denies Immunizations Up To Date Tetanus Booster (TDap): Less than 5yrs Date of Pneumonia Vaccine: Nov 17, 2019 Date of Influenza Vaccine: Sep 04, 2019 Past Medical History PMH As described under Assessment. Family Medical History Family History: Patient reports no known family medical history. Allergies and Home Medications Allergies Coded Allergies: Sulfa (Sulfonamide Antibiotics) (Verified Allergy, Unknown, 05/17/19) Home Medications Alprazolam 0.25 Mg Tablet, 0.25 MG PO TID PRN for ANXIETY, (Reported) Aripiprazole 10 Mg Tablet, 10 MG PO DAILY, (Reported) Aspirin 81 Mg Tablet.dr, 81 MG PO DAILY Prescribed by: MARY JO DICK on 06/17/20 1000 Atorvastatin Calcium 40 Mg Tablet, 40 MG PO DAILY, (Reported) Divalproex Sodium 500 Mg Tab.er.24h, 500 MG PO DAILY, (Reported) Duloxetine HCl 30 Mg Capsule.dr, 30 MG PO DAILY, (Reported) Furosemide 20 Mg Tablet, 20 MG PO DAILY, (Reported) Gabapentin 300 Mg Capsule, 300 MG PO BID, (Reported) Levothyroxine Sodium 75 Mcg Tablet, 75 MCG PO DAILY, (Reported) Metoclopramide HCl 10 Mg Tablet, 10 MG PO QIDACHS PRN for NAUSEA/VOMITING-3RD LINE, (Reported) Metoprolol Succinate 25 Mg Tab.er.24h, 50 MG PO DAILY, (Reported) Nitroglycerin 0.4 Mg Tab.subl, 0.4 MG PO UD PRN for CHEST PAIN (ANGINA), (Reported) Pantoprazole Sodium 40 Mg Tablet.dr, 40 MG PO DAILY, (Reported) Potassium Chloride 20 Meq Tab.er.prt, 40 MEQ PO BID, (Reported) TAKES 2 (20MEQ) TABS TWICE DAILY Prednisone 10 Mg Tab, 10 MG PO DAILY, (Reported) LAST FILLED 04-05-2020 #30/30DS Sumatriptan Succinate 100 Mg Tablet, 50 MG PO Q2H PRN for MIGRAINE, (Reported) TAKES OF A 100MG TAB Tramadol HCl 50 Mg Tablet, 50-100 MG PO Q6H PRN for PAIN-MODERATE (5-7), (Reported) Trazodone HCl 50 Mg Tablet, 50 MG PO HS, (Reported) Patient Home Medication List Home Medication List Reviewed: Yes Physical Exam-Cardiology Physical Exam Vital Signs/I&O 06/17/20 06/17/20 06/17/20 06/17/20 07:08 07:24 07:25 07:35 Temp 35.8 Pulse 84 92 Resp 16 B/P (MAP) 144/80 (101) Pulse Ox 92 92 93 O2 Delivery Room Air Room Air Room Air 06/17/20 06/17/20 06/17/20 06/17/20 08:00 09:00 11:20 12:01 Temp 36.0 Pulse 80 Resp 18 B/P (MAP) 133/86 (102) Pulse Ox 94 97 O2 Delivery Room Air Room Air Room Air Room Air 06/17/20 06/17/20 13:12 13:45 Pulse 89 B/P (MAP) 06/17/20 00:00 Intake Total 390 ml Balance 390 ml Capillary Refill : Less Than 3 Seconds Constitutional: appears stated age; No apparent distress; well-developed, well- nourished HEENT: PERRL; No discharge; hearing is well preserved, oral hygience is good; No ulceration, No xanthelasmas are seen Neck: No carotid bruit; carotid pulses are 2 + bilaterally Respiratory: chest is bilaterally symmetric, lungs clear to auscultation Cardiovascular: regular rate-rhythm, S1 and S2 Gastrointestinal: soft, audible bowel sounds; No spleenomegaly Rectal: deferred Extremities: normal range of motion, non-tender, normal inspection; No clubbing, No cyanosis; no lower extremity edema bilateral; No significant edema Neurologic/Psychiatric: no motor/sensory deficits, alert, normal mood/affect, oriented x 3, power is 5/5 both on sides Skin: normal color; No rash, No ulcerations Data Review Labs Laboratory Tests 06/17/20 05:30: White Blood Count 5.7, Red Blood Count 4.32L, Hemoglobin 11.5, Hematocrit 37, Mean Corpuscular Volume 86, Mean Corpuscular Hemoglobin 27, Mean Corpuscular Hemoglobin Concent 31L, Red Cell Distribution Width 17.0H, Platelet Count 272, Mean Platelet Volume 9.9, Neutrophils (%) (Auto) 62, Lymphocytes (%) (Auto) 23, Monocytes (%) (Auto) 14H, Eosinophils (%) (Auto) 1, Basophils (%) (Auto) 0, Neutrophils # (Auto) 3.5, Lymphocytes # (Auto) 1.3, Monocytes # (Auto) 0.8, Eosinophils # (Auto) 0.1, Basophils # (Auto) 0.0, Sodium Level 143, Potassium Level 3.6, Chloride Level 107, Carbon Dioxide Level 25, Anion Gap 11, Blood Urea Nitrogen 11, Creatinine 0.95, Estimat Glomerular Filtration Rate 58, BUN/Creatinine Ratio 12, Glucose Level 129H, Calcium Level 9.1, Corrected Calcium 9.3, Total Bilirubin 0.4, Aspartate Amino Transf (AST/SGOT) 17, Alanine Aminotransferase (ALT/SGPT) 15, Alkaline Phosphatase 86, Total Protein 6.5, Albumin 3.7, Triglycerides Level 144, Cholesterol Level 218H, LDL Cholesterol Direct 166H, VLDL Cholesterol 29, HDL Cholesterol 47 ECG Impression ECG Initial ECG Rhythm: Normal Sinus Initial ECG Impression: Nonspecific Changes A/P-Cardiology Assessment/Admission Diagnosis Chest pain Plan Echocardiogram, nuclear stress test. No acute ST-T wave abnormalities on the EKG. Serial troponin negative. Thank you for your consultation. Please call me if you have any questions. Pita Francis MD, FACP, FACC, FSCAI, FHRS, CCDS Interventional Cardiology Cardiac Electrophysiology Vascular Medicine and Endovascular Interventions Clinical Quality Measures AMI/AHF: ASA po Prior to arrival: Yes (324) DVT/VTE Risk/Contraindication: Risk Factor Score Per Nursin RFS Level Per Nursing on Admit: 2=Moderate Froilan FRANCIS MD Jun 16, 2020 17:45
--- NOTE | 2020-06-16 17:46 | Cardiology Stress Test Report ---
Stress Test Report Type of NM Stress Test: Test Type: LEXISCAN 0.4MG/5ML Date of Procedure/Referring: Date of Procedure: Jun 16, 2020 PCP Mary Jo Wu DO Admitting Physician Luis Daniel Madden MD Indications: Chest pain Baseline Heart Rate: 86 Baseline Blood Pressure: Blood Pressure Systolic: 132 Blood Pressure Diastolic: 79 Baseline EKG: Baseline EKG: Sinus rhythm Summary & Conclusion: Summary: The patient was brought to the stress lab after informed consent was taken. Stress test was performed according to the Lexiscan protocol. 0.4 mg of IV Lexiscan was given. Low-grade exercise was performed. Baseline EKG showed sinus rhythm at 86 BPM. Initial blood pressure was 192/113 mmHg. Maximum heart rate was 90 bpm and blood pressure 175/111 mmHg. Patient did not have any chest pain, arrhythmias or ST segment changes during the stress test. 10.75 mCi of Myoview were given for rest imaging and 30.5 mCi of Myoview given for stress imaging. Transient ischemic dilatation score 1.26, EF 85 percent. Normal wall motion. Normal myocardial perfusion imaging during rest and stress. Conclusion: Pharmacological stress test was negative for ischemia. Normal LV function with no wall motion abnormalities. Normal myocardial perfusion imaging during rest and stress. Froilan LINDSEY MD Jun 16, 2020 17:46
[2020-06-16] MEDS ORDERED: METOCLOPRAMIDE 10 MG (REGLAN) TAB PO PRN (22:00)
[2020-06-16] MEDS ORDERED: ALPRAZolam 0.25 MG (XANAX) TAB PO PRN (22:00)
[2020-06-16] MEDS ORDERED: SUMAtriptan 50 MG (IMITREX) TAB PO PRN (22:00)
[2020-06-16] MEDS: ONDANSETRON 4 MG/2 ML (SDV) Z0FRAN IV PRN (22:43)
[2020-06-17] VITALS: BP 144/68
[2020-06-17] MEDS: ENOXAPARIN 60 MG/0.6 ML (LOVENOX) SYR SC SCH (02:42)
[2020-06-17 04:00] VITALS: BP 133/78
[2020-06-17 05:57] LABS: BASOPHILS % (AUTO) 0 % (0-10); EOSINOPHILS # (AUTO) 0.1 10^3/uL (0.0-0.3); EOSINOPHILS % (AUTO) 1 % (0-10); HEMATOCRIT 37 % (35-52); HEMOGLOBIN 11.5 G/DL (11.5-16.0); LYMPHOCYTES # (AUTO) 1.3 X 10^3 (1.0-4.0); LYMPHOCYTES % (AUTO) 23 % (12-44); MEAN CORPUSCULAR HEMOGLOBIN 27 PG (25-34); MEAN CORPUSCULAR HGB CONC 31 G/DL (32-36); MEAN CORPUSCULAR VOLUME 86 FL (80-99); MEAN PLATELET VOLUME 9.9 FL (7.4-10.4); MONOCYTES # (AUTO) 0.8 X 10^3 (0.0-1.0); MONOCYTES % (AUTO) 14 % (0-12); NEUTROPHILS # (AUTO) 3.5 X 10^3 (1.8-7.8); NEUTROPHILS % (AUTO) 62 % (42-75); PLATELET COUNT 272 10^3/uL (130-400); WHITE BLOOD COUNT 5.7 10^3/uL (4.3-11.0)
[2020-06-17 06:19] LABS: CREATININE SERUM 0.95 MG/DL (0.60-1.30); POTASSIUM 3.6 MMOL/L (3.6-5.0)
[2020-06-17 06:20] LABS: ALBUMIN 3.7 GM/DL (3.2-4.5); BILIRUBIN,TOTAL 0.4 MG/DL (0.1-1.0); CALCIUM 9.1 MG/DL (8.5-10.1); TOTAL PROTEIN 6.5 GM/DL (6.4-8.2)
--- NOTE | 2020-06-17 06:22 | Pulmonary Progress Note ---
Subjective Time Seen by a Provider: 06:20 Sepsis Event Evaluation Height, Weight, BMI Height: 5'2.00" Weight: 125lbs. 0oz. 56.353763du; 23.00 BMI Method:Stated Exam Exam Vital Signs Date Time Temp Pulse Resp B/P (MAP) Pulse Ox O2 Delivery O2 Flow Rate FiO2 06/17/20 04:00 Room Air 06/17/20 04:00 36.3 102 18 133/78 (96) 99 Room Air 06/17/20 01:00 95 06/17/20 00:40 Room Air 06/17/20 00:00 36.2 99 20 144/68 (93) 98 Room Air 06/16/20 21:00 Room Air 06/16/20 20:00 36.8 81 16 115/84 (94) 95 Room Air 06/16/20 20:00 Room Air 06/16/20 19:30 98 Room Air 06/16/20 19:28 95 Room Air 06/16/20 19:00 87 06/16/20 17:18 37.1 76 18 132/79 (96) 99 Room Air 06/16/20 16:00 37.1 76 18 132/79 (96) 99 Room Air 06/16/20 16:00 Room Air 06/16/20 12:43 84 06/16/20 12:00 36.7 83 18 196/88 (124) 95 Room Air 06/16/20 12:00 Room Air 06/16/20 10:40 97 Room Air 06/16/20 10:40 99 Room Air 06/16/20 10:18 36.6 84 18 162/100 (120) 99 Room Air 06/16/20 08:42 Room Air 06/16/20 08:00 100 06/16/20 08:00 81 139/104 (116) 97 Room Air 06/16/20 08:00 37.2 06/16/20 08:00 Room Air 06/16/20 06:45 76 I & O 06/17/20 07:00 Intake Total 650 ml Balance 650 ml Height & Weight Height: 5'2.00" Weight: 125lbs. 0oz. 56.189289tl; 23.00 BMI Method:Stated General Appearance: No Apparent Distress, Chronically ill HEENT: PERRL/EOMI, TMs Normal, Normal ENT Inspection, Pharynx Normal, Moist Mucous Membranes Neck: Full Range of Motion, Normal Inspection, Non Tender Respiratory: Chest Non Tender, Lungs Clear, Normal Breath Sounds, No Accessory Muscle Use, No Respiratory Distress Cardiovascular: Regular Rate, Rhythm, No Edema, No Gallop, No JVD, No Murmur, Normal Peripheral Pulses Capillary Refill: Less Than 3 Seconds Extremity: Normal Capillary Refill, Normal Inspection, Normal Range of Motion, Non Tender, No Calf Tenderness, No Pedal Edema Neurologic/Psychiatric: Alert, Oriented x3, No Motor/Sensory Deficits, Normal Mood/Affect Skin: Normal Color, Warm/Dry Lymphatic: No Adenopathy Results Lab Laboratory Tests 06/16/20 00:05 06/16/20 03:42 06/17/20 05:30 Assessment/Plan Assessment/Plan CP -troponin neg x 2 -Stress test yesterday was negative hx of COPD with SOB worse with exertion - duoneb QID and advair Hx of RA -Pt has a left mediport Hx of BiPolar JEREMY DALY DO Jun 17, 2020 06:22
[2020-06-17] MEDS: RT-ALBUTEROL/IPRATROPIUM 3 ML (DUONEB) VIAL INH SCH ×2 (07:22→11:19)
[2020-06-17] MEDS: ADVAIR HFA 115/21 MCG INHALER 8 GM IH SCH (07:23)
[2020-06-17 07:35] VITALS: BP 144/80
[2020-06-17] MEDS: ASPIRIN E.C. 81 MG (ECOTRIN) TAB PO SCH (08:34)
[2020-06-17] MEDS ORDERED: DIVALPROEX EXT RELEASE 500 MG (DEPAKOTE ER) TAB PO SCH (09:00)
[2020-06-17] MEDS ORDERED: predniSONE 10 MG TAB PO SCH (09:00)
[2020-06-17] MEDS ORDERED: PANTOPRAZOLE 40 MG (PROTONIX) TAB PO SCH (09:00)
[2020-06-17] MEDS ORDERED: FUROSEMIDE 20 MG (LASIX) TAB PO SCH (09:00)
[2020-06-17] MEDS ORDERED: GABAPENTIN 300 MG (NEURONTIN) CAP PO SCH (09:00)
[2020-06-17] MEDS ORDERED: DULoxetine 30 MG (CYMBALTA) CAP PO SCH (09:00)
[2020-06-17] MEDS ORDERED: LEVOTHYROXINE 75 MCG (LEVOTHROID) TABLET PO SCH (09:00)
[2020-06-17] MEDS ORDERED: KCL 20 MEQ TAB (K-DUR) PO SCH (09:00)
[2020-06-17] MEDS ORDERED: ASPI-983 PO (10:00)
--- NOTE | 2020-06-17 10:01 | D/C HH Face to Face Order ---
D/C Face to Face Orders Reconcile Patient Problems Problems Reviewed?: Yes Instructions for Patient [facility], Patient Instructions/FollowUp: PCP 1 week Physician to follow Patient: [facility] Discharge Diet for Home: Cardiac Diet Patient Problems: Chest pain Debility Patient Data-Allergies,Ht & Wt Patient Allergies: Coded Allergies: Sulfa (Sulfonamide Antibiotics) (Verified Allergy, Unknown, 05/17/19) Height (Feet): 5 Height (Inches): 2.00 Weight (Pounds): 125 Weight (Ounces): 0 Home Health Need/Face to Face Date of Face to Face: Jun 17, 2020 Clinical Findings: Generalized weakness and fatigue, Instability, Muscle weakness, Unsteady gait I have seen Pt [id number]: Yes Discharged To: Home Diagnosis/Conditions: Debility Patient is Homebound due to: CognItive deficits, Hardeep fall risk due to instabilty, Muscle weakness Homebound Status Due to the above stated illness, injury or surgical procedure (medical condition or diagnosis) and associated clinical findings, the patient is homebound because of his/her inability to leave home except with aid of a supportive device and/or person AND leaving the home requires a considerable and taxing effort or is medically contraindicated. Pt req the following assistanc: Walker Home Health Nursing Orders Home Health Services Order: Nursing Services, Spinning Lathe Operator Hydraulic-Evaluate & Treat, Physical Therapy-Evaluate & Treat Home Health Infusion Therapy Line Start Date: Jun 16, 2020 Certify Stmt I certify that this patient is under my care and that I, a nurse practitioner or a physician; a virtual assistant working with me, had a face to face encounter that - meets the physician face to face encounter requirements with this patient as dated. VINNIE DICK DO Jun 17, 2020 10:01
--- NOTE | 2020-06-17 10:09 | Occ Therapy Progress Note ---
Therapy Progress Note Pt pleasantly declined OT this AM stating she is planning on discharging today and would not like any therapy. OT informed pt she would check back later this afternoon if pt is still here and attempt again, pt verbalized understanding. OT will check back this afternoon. 1, visit 1002 DARRICK OCONNOR OT Jun 17, 2020 10:09
--- NOTE | 2020-06-17 10:27 | Physical Therapy Daily Note ---
PT Daily Note-Current Subjective Patient agrees to PT and reports she is going home today. 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 Pain Numeric Pain Scale: 0-No Pain Location: No Pain Reported Mental Status Patient Orientation: Normal For Age Transfers SCALE: Activities may be completed with or without assistive devices. 8-Uaqggicavt-hpbpktc completes the activity by him/herself with no assistance from a helper. 5-Set-up or Clean-up Assistance-helper sets up or cleans up; patient completes activity. Douglas assists only prior to or following the activity. 4-Supervision or Touching Assistance-helper provides verbal cues and/or touching/steadying and/or contact guard assistance as patient completes activity. Assistance may be provided throughout the activity or intermittently. 3-Partial/Moderate Assistance-helper does LESS THAN HALF the effort. Douglas lifts, holds or supports trunk or limbs, but provides less than half the effort. 2-Substantial/Maximal Assistance-helper does MORE THAN HALF the effort. Douglas lifts or holds trunk or limbs and provides more than half the effort. 4-Thfeezeva-okbfhw does ALL the effort. Patient does none of the effort to complete the activity. Or, the assistance of 2 or more helpers is required for the patient to complete the activity. If activity was not attempted, code reason: 7-Patient Refused. 9-Not Applicable-not attempted and the patient did not perform the activity before the current illness, exacerbation or injury. 10-Not Attempted due to Environmental Limitations-(lack of equipment, weather restraints, etc.). 88-Not Attempted due to Medical Conditions or Safety Concerns. Roll Left & Right (QC): 6 Lying to Sitting/Side of Bed(Q: 6 Sit to Stand (QC): 6 Chair/Zlu-tb-Vstxr Xfer(QC): 6 Gait Training Does the Patient Walk?: Yes Distance: 475' Walk 10 feet (QC): 6 Walk 50 ft with 2 Turns(QC): 6 Walk 150 ft (QC): 6 Gait Assistive Device: FWW flexed trunk and knees with gait. Skilled VC's for body placement in FWW and PT lowered FWW for functional use Assessment Patient up in recliner with needs met. Dismiss to home on this date. PT Detention Goals Lecturer Of Portuguese Goals PT Lecturer Of Portuguese Goals Time Frame: Jun 23, 2020 Roll Left & Right (QC): 6 Sit to Lying (QC): 6 Lying-Sitting on Side/Bed(QC): 6 Sit to Stand (QC): 6 Chair/Xzf-lt-Yamzg Xfer(QC): 6 Walk 10 feet (QC): 6 Walk 50ft with 2 Turns (QC): 6 Walk 150 ft (QC): 6 PT Plan Treatment/Plan Treatment Plan: Discontinue PT, goals met Treatment Plan: Bed Mobility, Education, Functional Activity Rodolfo, Functional Strength, Gait, Safety, Therapeutic Exercise, Transfers Treatment Duration: Jun 23, 2020 Frequency: 6 times per week Estimated Hrs Per Day: .25 hour per day Patient and/or Family Agrees t: Yes Time/GCodes Time In: 945 Time Out: 958 Total Billed Treatment Time: 13 Total Billed Treatment 1 visit GT 13 min SEVERIANO DOTSON PT Jun 17, 2020 10:27
[2020-06-17] MEDS: meTOproloL SUCCINATE 50 MG (TOPROL XL) TAB PO SCH (10:55)
[2020-06-17] MEDS: ONDANSETRON 4 MG/2 ML (SDV) Z0FRAN IV PRN (10:55)
--- NOTE | 2020-06-17 11:36 | NUR ---
CM/SS: Visited with pt as to plan for discharge Plan: Pt will return home with [facility] and follow up intake with [facility] Summary: In setting up the [facility] appt. they are needing to speak to the pt. Pt is able to give consent for the Intake appt and give mental health her information. Pt shares that she has been at mental [facility] previously. Intake appt. is set up for 06-23-2020 at 1pm. She will need to arrive at 12:30pm. PT verbalizes understanding. Pt also is aware that information is sent to [facility] and they will be able to see her. Information is faxed to [facility]. Pt is wished well. Discharge orders faxed to [facility]. They are able to see pt on tomorrow 06/18/2020. Discharge orders faxed to [facility].
[2020-06-17 12:01] VITALS: BP 133/86
--- NOTE | 2020-06-17 13:59 | Discharge Summary ---
Discharge Summary Hospital Course Was the Problem List Reviewed?: Yes Hospital Course Date of Admission: Jun 16, 2020 at 01:30 Admission Diagnosis : Family Physician/Provider: Luis Daniel Madden MD Date of Discharge: 06/17/20 Discharge Diagnosis: Chest pain with normal stress test, Anxiety, Migraines Hospital Course: Hospital course: Pt had an uneventful hospital course, she was admitted for chest pain and constipation with somatic complaints after one ER visit per day for the past seven days since her caregiver has been out of town. Overall she is doing very well, social work arranged for home care and she had a normal cardiac stress test and was pleased with those results and was approving the discharge plan today. Labs and Pending Lab Test: Laboratory Tests 06/17/20 05:30: White Blood Count 5.7, Red Blood Count 4.32L, Hemoglobin 11.5, Hematocrit 37, Mean Corpuscular Volume 86, Mean Corpuscular Hemoglobin 27, Mean Corpuscular Hemoglobin Concent 31L, Red Cell Distribution Width 17.0H, Platelet Count 272, Mean Platelet Volume 9.9, Neutrophils (%) (Auto) 62, Lymphocytes (%) (Auto) 23, Monocytes (%) (Auto) 14H, Eosinophils (%) (Auto) 1, Basophils (%) (Auto) 0, Neutrophils # (Auto) 3.5, Lymphocytes # (Auto) 1.3, Monocytes # (Auto) 0.8, E osinophils # (Auto) 0.1, Basophils # (Auto) 0.0, Sodium Level 143, Potassium Level 3.6, Chloride Level 107, Carbon Dioxide Level 25, Anion Gap 11, Blood Urea Nitrogen 11, Creatinine 0.95, Estimat Glomerular Filtration Rate 58, BUN/Creatinine Ratio 12, Glucose Level 129H, Calcium Level 9.1, Corrected Calcium 9.3, Total Bilirubin 0.4, Aspartate Amino Transf (AST/SGOT) 17, Alanine Aminotransferase (ALT/SGPT) 15, Alkaline Phosphatase 86, Total Protein 6.5, Albumin 3.7, Triglycerides Level 144, Cholesterol Level 218H, LDL Cholesterol Direct 166H, VLDL Cholesterol 29, HDL Cholesterol 47 Home Meds Active Aspirin EC (Aspirin) 81 Mg Tablet.dr 81 Mg PO DAILY Reported Metoclopramide HCl 10 Mg Tablet 10 Mg PO QIDACHS PRN Prednisone 10 Mg Tab 10 Mg PO DAILY LAST FILLED 04-05-2020 #30/30DS Duloxetine HCl 30 Mg Capsule.dr 30 Mg PO DAILY Aripiprazole 10 Mg Tablet 10 Mg PO DAILY Metoprolol Succinate 25 Mg Tab.er.24h 50 Mg PO DAILY Trazodone HCl 50 Mg Tablet 50 Mg PO HS Atorvastatin Calcium 40 Mg Tablet 40 Mg PO DAILY Pantoprazole Sodium 40 Mg Tablet.dr 40 Mg PO DAILY Potassium Chloride 20 Meq Tab.er.prt 40 Meq PO BID TAKES 2 (20MEQ) TABS TWICE DAILY Furosemide 20 Mg Tablet 20 Mg PO DAILY Sumatriptan Succinate 100 Mg Tablet 50 Mg PO Q2H PRN MDD 200MG TAKES OF A 100MG TAB Alprazolam 0.25 Mg Tablet 0.25 Mg PO TID PRN Nitroglycerin 0.4 Mg Tab.subl 0.4 Mg PO UD PRN Tramadol HCl 50 Mg Tablet 50-100 Mg PO Q6H PRN Divalproex Sodium ER (Divalproex Sodium) 500 Mg Tab.er.24h 500 Mg PO DAILY Levothyroxine Sodium 75 Mcg Tablet 75 Mcg PO DAILY Neurontin (Gabapentin) 300 Mg Capsule 300 Mg PO BID Assessment/Pt Instructions [facility] in 1 week Discharge Planning: <30 minutes discharge planning Discharge Instructions Discharge Diet: Cardiac Diet Activity as Tolerated: Yes Discharge Physical Examination Vital Signs Vital Signs Date Time Temp Pulse Resp B/P (MAP) Pulse Ox O2 Delivery O2 Flow Rate FiO2 06/17/20 12:01 36.0 80 18 133/86 (102) 97 Room Air General Appearance: No Apparent Distress, WD/WN Respiratory: Chest Non Tender, Lungs Clear, Normal Breath Sounds, No Accessory Muscle Use, No Respiratory Distress Cardiovascular: Regular Rate, Rhythm, No Edema, No Gallop, No JVD, No Murmur, Normal Peripheral Pulses Neurologic/Psychiatric: Alert, Oriented x3, No Motor/Sensory Deficits, Normal Mood/Affect Allergies: Coded Allergies: Sulfa (Sulfonamide Antibiotics) (Verified Allergy, Unknown, 05/17/19) Discharge Summary Date of Admission Jun 16, 2020 at 01:30 Date of Discharge Discharge Date: Jun 17, 2020 Admission Diagnosis Assessment: Chest pain Constipation Sacral fracture Tearfulness Dementia Plan: Social work consult Stress test today ECHO done May need senior behavioral unit Discharge Diagnosis Assessment: Chest pain CHF GERD Dementia Anxiety Sacral fracture Hypothyroidism Unspecified psychiatric Myalgias Crohns Plan: Cardiology consultation Cardiology ordered echo. Continue Troponins as needed Monitor labs, provide interventions as needed Plan to discharge home unless situation changes. Clinical Quality Measures AMI/AHF: ASA po Prior to arrival: Yes (324) DVT/VTE Risk/Contraindication: Risk Factor Score Per Nursin RFS Level Per Nursing on Admit: 2=Moderate VINNIE DICK DO Jun 17, 2020 13:59
--- NOTE | 2020-06-17 17:43 | Cardiology Progress Note ---
Cardiology SOAP Progress Note Subjective: No further chest pain. However complaining of headache today. Objective: I&O/Vital Signs 06/17/20 06/17/20 06/17/20 06/17/20 07:08 07:24 07:25 07:35 Temp 35.8 Pulse 84 92 Resp 16 B/P (MAP) 144/80 (101) Pulse Ox 92 92 93 O2 Delivery Room Air Room Air Room Air 06/17/20 06/17/20 06/17/20 06/17/20 08:00 09:00 11:20 12:01 Temp 36.0 Pulse 80 Resp 18 B/P (MAP) 133/86 (102) Pulse Ox 94 97 O2 Delivery Room Air Room Air Room Air Room Air 06/17/20 06/17/20 13:12 13:45 Pulse 89 B/P (MAP) 06/17/20 00:00 Intake Total 390 ml Balance 390 ml Weight (Pounds): 125 Weight (Ounces): 0 Weight (Calculated Kilograms): 56.453101 Constitutional: appears stated age; No apparent distress; well-developed, well- nourished Respiratory: chest is bilaterally symmetric, lungs clear to auscultation Cardiovascular: regular rate-rhythm, S1 and S2 Gastrointestional: soft, audible bowel sounds; No spleenomegaly Extremities: normal range of motion, non-tender, normal inspection; No clubbing, No cyanosis; no lower extremity edema bilateral; No significant edema Neurologic/Psychiatric: no motor/sensory deficits, alert, normal mood/affect, oriented x 3, power is 5/5 both on sides Skin: normal color; No rash, No ulcerations Results/Procedures: Labs Laboratory Tests 06/17/20 05:30: White Blood Count 5.7, Red Blood Count 4.32L, Hemoglobin 11.5, Hematocrit 37, Mean Corpuscular Volume 86, Mean Corpuscular Hemoglobin 27, Mean Corpuscular Hemoglobin Concent 31L, Red Cell Distribution Width 17.0H, Platelet Count 272, Mean Platelet Volume 9.9, Neutrophils (%) (Auto) 62, Lymphocytes (%) (Auto) 23, Monocytes (%) (Auto) 14H, Eosinophils (%) (Auto) 1, Basophils (%) (Auto) 0, Neutrophils # (Auto) 3.5, Lymphocytes # (Auto) 1.3, Monocytes # (Auto) 0.8, Eosinophils # (Auto) 0.1, Basophils # (Auto) 0.0, Sodium Level 143, Potassium Level 3.6, Chloride Level 107, Carbon Dioxide Level 25, Anion Gap 11, Blood Urea Nitrogen 11, Creatinine 0.95, Estimat Glomerular Filtration Rate 58, BUN/Creatinine Ratio 12, Glucose Level 129H, Calcium Level 9.1, Corrected Calcium 9.3, Total Bilirubin 0.4, Aspartate Amino Transf (AST/SGOT) 17, Alanine Aminotransferase (ALT/SGPT) 15, Alkaline Phosphatase 86, Total Protein 6.5, Albumin 3.7, Triglycerides Level 144, Cholesterol Level 218H, LDL Cholesterol Direct 166H, VLDL Cholesterol 29, HDL Cholesterol 47 A/P: Assessment/Dx: Chest pain, Hypertension, Headache. Plan: Echocardiogram showed normal LV function with no wall motion abnormalities. Nuclear stress test showed no evidence of ischemia or infarct. No acute ST-T wave abnormalities on the EKG. Serial troponin negative. Headache: Defer to the primary team. Patient can follow with Dr. Rojas on discharge. Thank you for your consultation. Please call me if you have any questions. Pita Francis MD, FACP, FACC, FSCAI, FHRS, CCDS Interventional Cardiology Cardiac Electrophysiology Vascular Medicine and Endovascular Interventions Clinical Quality Measures AMI/AHF: ASA po Prior to arrival: Yes ([phone]) Froilan FRANCIS MD Jun 17, 2020 17:43
[2020-06-17] MEDS ORDERED: traZODone 50 MG (DESYREL) TAB PO SCH (21:00)
== END 2020-06-17 14:00 | disposition home health service (06) | DRG 313 ==
LOC: EDUNIT# 23:32 → ER 23:34 → ICU 06-16 01:30 → 4TH 06-16 09:15
PROVIDERS: ADMIT Internal Medicine; ATTEND Internal Medicine
DX: R07.9 Chest pain, unspecified (principal); I47.1 Supraventricular tachycardia; I45.2 Bifascicular block; K50.90 Crohn's disease, unspecified, without complications; K58.1 Irritable bowel syndrome with constipation; F03.90 Unspecified dementia, unspecified severity, without behavioral disturbance, psychotic disturbance, mood disturbance, and anxiety; F41.9 Anxiety disorder, unspecified; G43.909 Migraine, unspecified, not intractable, without status migrainosus; S32.19XD Other fracture of sacrum, subsequent encounter for fracture with routine healing; W18.30XD Fall on same level, unspecified, subsequent encounter; Z91.81 History of falling; J44.9 Chronic obstructive pulmonary disease, unspecified; I11.0 Hypertensive heart disease with heart failure; I50.9 Heart failure, unspecified; E78.00 Pure hypercholesterolemia, unspecified; K21.9 Gastro-esophageal reflux disease without esophagitis; Z89.421 Acquired absence of other right toe(s); M81.0 Age-related osteoporosis without current pathological fracture; M19.91 Primary osteoarthritis, unspecified site; M06.9 Rheumatoid arthritis, unspecified; M79.7 Fibromyalgia; M54.9 Dorsalgia, unspecified; E03.9 Hypothyroidism, unspecified; H40.9 Unspecified glaucoma; F31.9 Bipolar disorder, unspecified; Z85.41 Personal history of malignant neoplasm of cervix uteri; Z87.891 Personal history of nicotine dependence; Z87.01 Personal history of pneumonia (recurrent); Z90.710 Acquired absence of both cervix and uterus; Z90.722 Acquired absence of ovaries, bilateral; Z90.49 Acquired absence of other specified parts of digestive tract; Z90.89 Acquired absence of other organs
CPT/HCPCS: 36415; 71045; 78452; 80053; 80061; 80164; 82150; 82550; 82553; 83690; 83735; 83874; 83880; 84484; 85025; 85610; 85730; 93005; 93017; 93041; 93306; 94640; 94760; G0378

== ENCOUNTER 2020-07-04 14:23 | Emergency (ER) | payer MEDICARE, MEDICAID ==
[~2020-07-04] VITALS: Ht 160 cm; Wt 56.7 kg
[~2020-07-04 14:23] MED LIST changes: +ALPR0.254 PO; +ARIP10TA17 PO; +ASPI-983 PO; +ATOR40TA70 PO; +DULO30CA49 PO; +METO10TA3 PO; +MTP25TSR PO; +NITR0.4T42 PO; +PANT40TA3 PO; +POTA20TA15 PO; +SUMA100T3 PO; +TRAM50TA3 PO; +TRZ50T PO
[2020-07-04] MEDS ORDERED: ONDANSETRON 4 MG (ZOFRAN) ORAL DISSOLVE TAB PO STA (14:31)
--- NOTE | 2020-07-04 14:35 | ED Lower Extremity ---
General Chief Complaint: Lower Extremity Stated Complaint: CELLULITIS - FEET/LEGS Source: patient Exam Limitations: no limitations History of Present Illness Date Seen by Provider: Jul 04, 2020 Time Seen by Provider: 14:32 Initial Comments To ER with reports of cellulitis in both feet. She was given Keflex [address] Ji. She reports now that she is having some morning nausea. She has had intermittent chills. She has persistent swelling in bilateral lower extremities. Onset: just prior to arrival Severity: moderate Pain/Injury Location: bilateral ankle Method of Injury: fell Modifying Factors: Worse With Movement Allergies and Home Medications Allergies Coded Allergies: Sulfa (Sulfonamide Antibiotics) (Verified Allergy, Unknown, 05/17/19) Home Medications Alprazolam 0.25 Mg Tablet, 0.25 MG PO TID PRN for ANXIETY, (Reported) Aripiprazole 10 Mg Tablet, 10 MG PO DAILY, (Reported) Aspirin 81 Mg Tablet.dr, 81 MG PO DAILY Prescribed by: VINNIE DICK on 06/17/20 1000 Atorvastatin Calcium 40 Mg Tablet, 40 MG PO DAILY, (Reported) Divalproex Sodium 500 Mg Tab.er.24h, 500 MG PO DAILY, (Reported) Duloxetine HCl 30 Mg Capsule.dr, 30 MG PO DAILY, (Reported) Furosemide 20 Mg Tablet, 20 MG PO DAILY, (Reported) Gabapentin 300 Mg Capsule, 300 MG PO BID, (Reported) Levothyroxine Sodium 75 Mcg Tablet, 75 MCG PO DAILY, (Reported) Metoclopramide HCl 10 Mg Tablet, 10 MG PO QIDACHS PRN for NAUSEA/VOMITING-3RD LINE, (Reported) Metoprolol Succinate 25 Mg Tab.er.24h, 50 MG PO DAILY, (Reported) Nitroglycerin 0.4 Mg Tab.subl, 0.4 MG PO UD PRN for CHEST PAIN (ANGINA), (Reported) Pantoprazole Sodium 40 Mg Tablet.dr, 40 MG PO DAILY, (Reported) Potassium Chloride 20 Meq Tab.er.prt, 40 MEQ PO BID, (Reported) TAKES 2 (20MEQ) TABS TWICE DAILY Prednisone 10 Mg Tab, 10 MG PO DAILY, (Reported) LAST FILLED 04-05-2020 #30/30DS Sumatriptan Succinate 100 Mg Tablet, 50 MG PO Q2H PRN for MIGRAINE, (Reported) TAKES OF A 100MG TAB Tramadol HCl 50 Mg Tablet, 50-100 MG PO Q6H PRN for PAIN-MODERATE (5-7), (Reported) Trazodone HCl 50 Mg Tablet, 50 MG PO HS, (Reported) Patient Home Medication List Home Medication List Reviewed: Yes Review of Systems Constitutional: see HPI EENTM: see HPI Respiratory: no symptoms reported Cardiovascular: no symptoms reported Genitourinary: no symptoms reported Musculoskeletal: no symptoms reported Skin: see HPI Psychiatric/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: No Symptoms Reported Past Qmbekpo-Mgmtuq-Itsuww Hx Patient Social History Alcohol Use: Denies Use Number of Drinks Today: Alcohol Beverage of Choice: Wine Recreational Drug Use: No Smoking Status: Former Smoker Type Used: Cigarettes Former Smoker, Quit: May 13, 2009 2nd Hand Smoke Exposure: No Recent Foreign Travel: No Contact w/Someone Who Travel: No Recent Hopitalizations: No Physical Abuse: No Sexual Abuse: No Mistreated: No Fear: No Immunizations Up To Date Tetanus Booster (TDap): Less than 5yrs PED Vaccines UTD: Yes Date of Pneumonia Vaccine: Nov 17, 2019 Date of Influenza Vaccine: Sep 04, 2019 Seasonal Allergies Seasonal Allergies: Yes Past Medical History Surgeries: Yes (PORT;HYST/BSO;BOWEL/RECTAL SURGERY;HIATAL HERNIA REPAIR;EGD/C- SCOPES) Abdominal, Adenoidectomy, Bowel Surgery, Gallbladder, Hysterectomy, Joint Replacement, Oophorectomy, Rectal, Tonsillectomy Respiratory: Yes Pneumonia, COPD Cardiac: Yes (PSVT; RBBB/LAFB) Hypertension 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: Yes Dementia, Headaches /Migraines, Neuropathy, 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, 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 Genitourinary: No Gastrointestinal: Yes (BOWEL/RECTAL SURGERY;RECTAL PROLAPSE REPAIR;HIATAL HERNIA REPAIR; U.COLITIS) Colitis, Gastroesophageal Reflux, Crohns Disease, Chronic Constipation, Chronic Diarrhea, Hiatal Hernia, Gall Bladder Disease, Irritable Bowel Musculoskeletal: Yes (FALLS, USES WALKER; R TOES 3,4,5 AMPUTATED) Amputee, Osteoporosis, Arthritis, Fibromyalgia, Rheumatoid Arthritis, Chronic Back Pain Endocrine: Yes Hypothyroidsim HEENT: Yes Glaucoma Cancer: Yes Cervical Did You Recieve Any Treatments: Yes What Type of Treatment Did You: Surgical Intervention Psychosocial: Yes (EXTENSIVE PSYCH ISSUES) Anxiety, Depression Integumentary: No Blood Disorders: No Family Medical History Patient reports no known family medical history. No Pertinent Family Hx PSH: -HYSTERECTOMY/BILATERAL SALPINGO-OOPHORECTOMY -BOWEL SURGERY FOR OBSTRUCTION -LAPAROSCOPY -RECTAL PROLAPSE REPAIR/SIGMOID RESECTION -UMBILICAL HERNIA REPAIR -HIATAL HERNIA REPAIR -HEMORRHOIDECTOMY -TONSILLECTOMY/ADENOIDECTOMY -CHOLECYSTECTOMY -PORT LEFT CHEST -RIGHT TOES 3,4,5 AMPUTATED -LEFT SHOULDER REPLACEMENT HAS CHRONIC RECTAL PAIN COMPLAINTS Physical Exam Vital Signs Capillary Refill : Height, Weight, BMI Height: 5'2.00" Weight: 125lbs. 0oz. 56.440041tc; 23.00 BMI Method:Stated General Appearance: WD/WN, no apparent distress Respiratory: no respiratory distress, no accessory muscle use Hips: bilateral hip non-tender, bilateral hip normal inspection, bilateral hip normal range of motion Legs: bilateral leg non-tender, bilateral leg normal inspection, bilateral leg normal range of motion Knees: bilateral knee non-tender, bilateral knee normal inspection, bilateral knee normal range of motion Ankles: bilateral ankle pain, bilateral ankle soft tissue tenderness, bilateral ankle swelling Feet: bilateral foot soft tissue tenderness, bilateral foot swelling; left foot other (very minimal erythema to the medial aspect of the left foot, no other erythema to the left lower extremity or to the right lower extremity at all.) Neurologic/Psychiatric: normal mood/affect, oriented x 3 Skin: normal color, warm/dry Progress/Results/Core Measures Results/Orders My Orders Orders - DEONNA MOBLEY APRN Ondansetron Oral Dissolve Tab (Zofran (07/04/20 14:31) Cbc With Automated Diff (07/04/20 14:31) Comprehensive Metabolic Panel (07/04/20 14:31) Departure Impression Primary Impression: Pedal edema Additional Impression: Nausea Disposition: 01 HOME, SELF-CARE Condition: Stable Departure-Patient Inst. Decision time for Depature: 14:34 Referrals: MAC HANDY MD (PCP/Family) Primary Care Physician Patient Instructions: Dependent Edema (DC) Add. Discharge Instructions: 1. Wear the compression stockings during the day and take them off at night. Return to ER for any concerns. All discharge instructions reviewed with patient and/or family. Voiced understanding. DEONNA MOBLEY APRN Jul 04, 2020 14:34
[2020-07-04 14:58] LABS: BASOPHILS % (AUTO) 0 % (0-10); EOSINOPHILS % (AUTO) 0 % (0-10); HEMATOCRIT 30 % (35-52); HEMOGLOBIN 9.2 G/DL (11.5-16.0); LYMPHOCYTES # (AUTO) 0.5 X 10^3 (1.0-4.0); LYMPHOCYTES % (AUTO) 10 % (12-44); MEAN CORPUSCULAR HEMOGLOBIN 26 PG (25-34); MEAN CORPUSCULAR HGB CONC 30 G/DL (32-36); MEAN CORPUSCULAR VOLUME 86 FL (80-99); MEAN PLATELET VOLUME 9.3 FL (7.4-10.4); MONOCYTES # (AUTO) 0.3 X 10^3 (0.0-1.0); MONOCYTES % (AUTO) 7 % (0-12); NEUTROPHILS # (AUTO) 4.3 X 10^3 (1.8-7.8); NEUTROPHILS % (AUTO) 84 % (42-75); PLATELET COUNT 256 10^3/uL (130-400); RED CELL DISTRIBUTION WIDTH 16.5 % (10.0-14.5); WHITE BLOOD COUNT 5.1 10^3/uL (4.3-11.0)
[2020-07-04 15:08] LABS: ALBUMIN 3.6 GM/DL (3.2-4.5)
[2020-07-04 15:10] LABS: CALCIUM 8.8 MG/DL (8.5-10.1)
[2020-07-04 15:11] LABS: TOTAL PROTEIN 5.9 GM/DL (6.4-8.2)
[2020-07-04 15:13] LABS: BILIRUBIN,TOTAL 0.6 MG/DL (0.1-1.0)
[2020-07-04 15:15] LABS: CREATININE SERUM 1.02 MG/DL (0.60-1.30)
[2020-07-04] MEDS ORDERED: RX-ONDANSETRON 4 MG ODT (ZOFRAN) PPK #4 PO STA (15:19)
[2020-07-04 15:38] VITALS: BP 129/76
== END 2020-07-04 15:37 | disposition home or self-care (01) ==
LOC: EDUNIT# 14:23 → ER 14:24
DX: R60.9 Edema, unspecified (principal); R11.0 Nausea; J44.9 Chronic obstructive pulmonary disease, unspecified; K21.9 Gastro-esophageal reflux disease without esophagitis; E03.9 Hypothyroidism, unspecified; I10 Essential (primary) hypertension; Z87.891 Personal history of nicotine dependence; F41.9 Anxiety disorder, unspecified; F32.9 Major depressive disorder, single episode, unspecified; Z79.890 Hormone replacement therapy; Z88.2 Allergy status to sulfonamides; Z85.41 Personal history of malignant neoplasm of cervix uteri; Z79.52 Long term (current) use of systemic steroids; Z79.82 Long term (current) use of aspirin
CPT/HCPCS: 36415; 80053; 85025; 99283

== ENCOUNTER 2020-11-17 09:57 | Observation (INO) | payer MEDICARE, MEDICAID ==
[~2020-11-17] VITALS: Ht 157.5 cm; Wt 56.2 kg
[~2020-11-17 09:57] MED LIST changes: +ALPR.25T PO; -ALPR0.254 PO; +ASPI-1238 PO; -ASPI-983 PO; -PANT40TA3 PO; +PANT40TA52 PO
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
--- NOTE | 2020-11-17 11:34 | NUR ---
PATIENT REPORTS THAT SHE HAS NO ONE AT HOME TO TAKE CARE OF HER AND SHE DOSEN'T NEED ANYONE. CALLED KEY RINGER TO COME TALK WITH PATIENT
[2020-11-17] MEDS ORDERED: KETOROLAC 30 MG/ML VIAL IM ONE (11:45)
[2020-11-17] MEDS ORDERED: methylPREDNISolone 40 MG/ML (DEPO MEDROL) VIAL IM ONE (11:45)
--- NOTE | 2020-11-17 12:54 | NUR ---
CALL WORKER REMAIN IN ROOM
--- NOTE | 2020-11-17 13:17 | NUR ---
FOOD TRAY ORDERED
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
--- NOTE | 2020-11-17 14:49 | NUR ---
CON'T TO WAIT FOR FARM CREW LEADER TO FIND PLACE TO GO FO ASSIST LIVING
--- NOTE | 2020-11-17 15:21 | NUR ---
PLAN TO ADMIT
--- NOTE | 2020-11-17 15:25 | NUR ---
CM/SS: [facility] has declined patient for residential due to lack of skilled need and the Assisted Living side is capped at the number of Medicaid receipts they can accept.
--- NOTE | 2020-11-17 16:00 | NUR ---
CM/SS: Call [facility]) [phone]- they have openings. Information on pt is faxed for review. Fax number [phone].
[2020-11-17] MEDS ORDERED: IBUPROFEN TABLET 200 MG TAB PO PRN (16:45)
[2020-11-17] MEDS ORDERED: HYDROcodone/APAP 5 MG/325 MG (LORTAB) TAB PO PRN (16:45)
[2020-11-17] MEDS ORDERED: ACETAMINOPHEN 500 MG TAB (TYLENOL) PO PRN (16:45)
--- NOTE | 2020-11-17 17:30 | NUR ---
PATIENT ADMITTED TO ROOM 409 VIA STRETCHER ACCOMPANIED BY ED PCT.
--- NOTE | 2020-11-17 18:04 | History & Physical-Hospitalist ---
History of Present Illness HPI/Chief Complaint CC: Severe debility HPI: This is a 75yoWF clinic patient of [facility] who presented to the ER with widespread pain complaints from fibromyalgia with anxiety. Patient is very vague regarding specific pain and states she can no longer stay in her house and live alone. PT OT will be consulted along with IRF. AL in [facility] is being arranged by . Source: patient Exam Limitations: no limitations Date Seen 11/17/20 Time Seen by a Provider: 18:00 Attending Physician Mary Jo Wu Pankaj K MD Referring Physician Date of Admission Nov 17, 2020 at 15:20 Home Medications & Allergies Home Medications Reviewed patient Home Medication Reconciliation performed by pharmacy medication reconciliations conveyor technician and/or nursing. Patients Allergies have been reviewed. Allergies Allergies Coded Allergies Sulfa (Sulfonamide Antibiotics) (Verified Allergy, Unknown, 05/17/19) Past Kmfoviu-Rrrwni-Htdenq Hx Past Med/Social Hx: Reviewed Nursing Past Med/Soc Hx, Reviewed and Corrections made Patient Social History Marrital Status: single Employed/Student: retired Alcohol Use: Denies Use Alcohol Beverage of Choice: Wine Recreational Drug Use: No Smoking Status: Former Smoker Former Smoker, Quit: May 13, 2009 Type Used: Cigarettes 2nd Hand Smoke Exposure: No Recent Foreign Travel: No Contact w/other who traveled: No Recent Hopitalizations: No Recent Infectious Disease Expo: No Immunizations Up To Date Tetanus Booster (TDap): Less than 5yrs Pediatric: Yes Date of Pneumonia Vaccine: Nov 17, 2019 Date of Influenza Vaccine: Aug 16, 2020 Seasonal Allergies Seasonal Allergies: Yes Past Medical History Surgeries: Abdominal, Adenoidectomy, Bowel Surgery, Gallbladder, Hysterectomy, Joint Replacement, Oophorectomy, Rectal, Tonsillectomy Cardiac: Hypertension 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: Dementia, Headaches /Migraines, Neuropathy, Vertigo Hysterectomy, Menopausal Gastrointestinal: Colitis, Gastroesophageal Reflux, Crohns Disease, Chronic Constipation, Chronic Diarrhea, Hiatal Hernia, Gall Bladder Disease, Irritable Bowel Musculoskeletal: Amputee, Osteoporosis, Arthritis, Fibromyalgia, Rheumatoid Arthritis, Chronic Back Pain Endocrine: Hypothyroidsim HEENT: Glaucoma Cancer: Cervical Did You Recieve Any Treatments: Yes What Type of Treatment Did You: Surgical Intervention Psychosocial: Anxiety, Depression History of Blood Disorders: No Family History Patient reports no known family medical history. No Pertinent Family Hx PSH: -HYSTERECTOMY/BILATERAL SALPINGO-OOPHORECTOMY -BOWEL SURGERY FOR OBSTRUCTION -LAPAROSCOPY -RECTAL PROLAPSE REPAIR/SIGMOID RESECTION -UMBILICAL HERNIA REPAIR -HIATAL HERNIA REPAIR -HEMORRHOIDECTOMY -TONSILLECTOMY/ADENOIDECTOMY -CHOLECYSTECTOMY -PORT LEFT CHEST -RIGHT TOES 3,4,5 AMPUTATED -LEFT SHOULDER REPLACEMENT HAS CHRONIC RECTAL PAIN COMPLAINTS Review of Systems Constitutional: see HPI, malaise, weakness Musculoskeletal: muscle stiffness, muscle cramps Psychiatric/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: Weakness Physical Exam Physical Exam Vital Signs Vital Signs - First Documented 11/17/20 10:05 Temp 35.0 Pulse 90 Resp 18 B/P (MAP) 150/100 (117) Pulse Ox 98 O2 Delivery Room Air Capillary Refill : Less Than 3 Seconds Height, Weight, BMI Height: 5'2.00" Weight: 125lbs. 0oz. [id number]; 22.65 BMI Method:Stated General Appearance: No Apparent Distress, Anxious, Chronically ill Eyes: Right Eye Normal Inspection, Right Eye PERRL HEENT: PERRL/EOMI, Normal ENT Inspection, Pharynx Normal, Moist Mucous Membranes Neck: Full Range of Motion, Normal Inspection, Non Tender Respiratory: Chest Non Tender, Lungs Clear, Normal Breath Sounds, No Accessory Muscle Use, No Respiratory Distress Cardiovascular: Regular Rate, Rhythm, No Edema, No Gallop, No JVD, No Murmur, Normal Peripheral Pulses Gastrointestinal: Normal Bowel Sounds, No Organomegaly, No Pulsatile Mass, Non Tender, Soft Back: Normal Inspection, No CVA Tenderness, No Vertebral Tenderness Extremity: Normal Capillary Refill, Normal Inspection, Normal Range of Motion, Non Tender, No Calf Tenderness, No Pedal Edema Neurologic/Psychiatric: Alert, Oriented x3, No Motor/Sensory Deficits (generalized weakness), Normal Mood/Affect, Depressed Affect Skin: Normal Color, Warm/Dry Lymphatic: No Adenopathy Results Results/Procedures Labs Laboratory Tests 11/17/20 21:27 Patient resulted labs reviewed. Assessment/Plan Admission Diagnosis Assessment: Severe debility Fibromyalgia Chronic pain Anxiety Dehydration LUPE creat 2.0 Plan: PT OT SW AL at [facility] Admission Status: Observation Diagnosis/Problems Diagnosis/Problems (1) LUPE (acute kidney injury) (2) Rheumatoid arthritis flare Status: Acute (3) Dementia Status: Acute (4) Age-related physical debility Status: Acute (5) Fibromyalgia Status: Acute (6) Anxiety Status: Acute WU,MARY JO DO Nov 17, 2020 18:04
[2020-11-17 19:36] VITALS: BP 96/62
[2020-11-17] MEDS ORDERED: NITROGLYCERIN 0.4 MG SL TABS BTL 25'S SL PRN (20:45)
[2020-11-17] MEDS ORDERED: ALPRAZolam 0.25 MG (XANAX) TAB PO PRN (20:45)
[2020-11-17] MEDS ORDERED: METOCLOPRAMIDE 10 MG (REGLAN) TAB PO PRN (20:45)
[2020-11-17] MEDS ORDERED: traZODone 50 MG (DESYREL) TAB PO SCH (21:00)
[2020-11-17] MEDS ORDERED: KCL 20 MEQ TAB (K-DUR) PO SCH (21:00)
[2020-11-17] MEDS: GABAPENTIN 300 MG (NEURONTIN) CAP PO SCH (21:07)
[2020-11-17] MEDS: LEVOTHYROXINE 75 MCG (LEVOTHROID) TABLET PO SCH (21:22)
[2020-11-17] MEDS ORDERED: SUMAtriptan 50 MG (IMITREX) TAB PO PRN (21:30)
[2020-11-17 21:54] LABS: ALBUMIN 3.4 GM/DL (3.2-4.5); BILIRUBIN,TOTAL 0.4 MG/DL (0.1-1.0); CALCIUM 8.6 MG/DL (8.5-10.1); CREATININE SERUM 2.01 MG/DL (0.60-1.30); POTASSIUM 3.7 MMOL/L (3.6-5.0); TOTAL PROTEIN 6.1 GM/DL (6.4-8.2)
[2020-11-17 22:07] LABS: BASOPHILS % (AUTO) 0 % (0-10); EOSINOPHILS # (AUTO) 0.1 10^3/uL (0.0-0.3); EOSINOPHILS % (AUTO) 1 % (0-10); HEMATOCRIT 34 % (35-52); HEMOGLOBIN 10.8 g/dL (11.5-16.0); LYMPHOCYTES # (AUTO) 1.9 10^3/uL (1.0-4.0); LYMPHOCYTES % (AUTO) 21 % (12-44); MEAN CORPUSCULAR HEMOGLOBIN 27 pg (25-34); MEAN CORPUSCULAR HGB CONC 32 g/dL (32-36); MEAN CORPUSCULAR VOLUME 85 fL (80-99); MEAN PLATELET VOLUME 10.4 fL (9.0-12.2); MONOCYTES # (AUTO) 0.9 10^3/uL (0.0-1.0); MONOCYTES % (AUTO) 10 % (0-12); NEUTROPHILS # (AUTO) 6.4 10^3/uL (1.8-7.8); NEUTROPHILS % (AUTO) 69 % (42-75); PLATELET COUNT 264 10^3/uL (130-400); WHITE BLOOD COUNT 9.3 10^3/uL (4.3-11.0)
[2020-11-18 00:33] VITALS: BP 117/75
[2020-11-18 04:00] VITALS: BP 115/71
[2020-11-18] MEDS ORDERED: NS IV 1000 ML 1,000 ML IV SCH (04:45)
[2020-11-18] MEDS: LEVOTHYROXINE 75 MCG (LEVOTHROID) TABLET PO SCH (06:21)
[2020-11-18] MEDS ORDERED: PANTOPRAZOLE 40 MG (PROTONIX) TAB PO SCH (07:00)
[2020-11-18 08:00] VITALS: BP 115/78
[2020-11-18] MEDS ORDERED: KCL 20 MEQ TAB (K-DUR) PO SCH (08:00)
[2020-11-18] MEDS: GABAPENTIN 300 MG (NEURONTIN) CAP PO SCH (08:27)
[2020-11-18] MEDS ORDERED: predniSONE 10 MG TAB PO SCH (09:00)
[2020-11-18] MEDS ORDERED: DULoxetine 30 MG (CYMBALTA) CAP PO SCH (09:00)
[2020-11-18] MEDS ORDERED: DIVALPROEX EXT RELEASE 500 MG (DEPAKOTE ER) TAB PO SCH (09:00)
[2020-11-18] MEDS ORDERED: ASPIRIN E.C. 81 MG (ECOTRIN) TAB PO SCH (09:00)
[2020-11-18] MEDS ORDERED: FUROSEMIDE 20 MG (LASIX) TAB PO SCH (09:00)
[2020-11-18] MEDS ORDERED: meTOproloL SUCCINATE 50 MG (TOPROL XL) TAB PO SCH (09:00)
[2020-11-18] MEDS ORDERED: DIPH25TA65 PO ×2 (09:12→12:04)
[2020-11-18] MEDS ORDERED: ONDA4TAB11 PO ×2 (09:12→12:04)
[2020-11-18] MEDS ORDERED: ASPI-1238 PO ×2 (09:12→12:04)
[2020-11-18] MEDS ORDERED: METOCLOPRAMIDE 5 MG (REGLAN) TAB PO PRN (09:15)
--- NOTE | 2020-11-18 09:16 | NUR ---
SPOKE WITH THE PT AND WENT THRU THE EXT MED HISTORY TO COMPLETE THE MED REC PT WAS NOT ABLE TO NAME ALL HER MEDICATIONS, THEREFORE I LISTED WHAT IS ON THE EXT MED HISTORY AND THE PT WAS ABLE TO TELL ME HOW/WHEN SHE TAKES. POTASSIUM CL 20MEQ- PT HAD PREVIOUSLY BEEN ON 2 TABS BID (DURING HER LAST ADMISSION) AND THESE DIRECTIONS WERE CONTINUED- HOWEVER PT IS NOW TAKING 1 TAB TID GABAPENTIN 300MG- AT THE PTS LAST ADMISSION SHE WAS TAKING 1 CAP BID HOWEVER PT NOW SAYS SHE IS ONLY TAKING 1 TAB DAILY DUE TO IT AFFECTING HER MOOD, I HAVE MADE THE PHARMACIST AWARE OF BOTH THESE DISCREPANCIES OTC MEDS: BELKIS
--- NOTE | 2020-11-18 09:34 | Physical Therapy Evaluation ---
PT Evaluation-General Medical Diagnosis Admission Date Nov 17, 2020 at 15:20 Medical Diagnosis: debility Onset Date: Nov 17, 2020 Therapy Diagnosis Therapy Diagnosis: impaired mobility, strength, endurance Height/Weight Height (Feet): 5 Height (Inches): 2.00 Weight (Pounds): 125 Weight (Ounces): 0 Precautions Precautions/Isolations: Fall Prevention, Standard Precautions Referral Physician: Mary Jo Wu DO Medical History Pertinent Medical History: Arthritis, Dementia, Fractures, GERD, Neuropathy, Rheumatoid Arthritis Additional Medical History Past Medical History Surgeries: Abdominal, Adenoidectomy, Bowel Surgery, Gallbladder, Hysterectomy, Joint Replacement, Oophorectomy, Rectal, Tonsillectomy Cardiac: Hypertension 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: Dementia, Headaches /Migraines, Neuropathy, Vertigo Hysterectomy, Menopausal Gastrointestinal: Colitis, Gastroesophageal Reflux, Crohns Disease, Chronic Constipation, Chronic Diarrhea, Hiatal Hernia, Gall Bladder Disease, Irritable Bowel Musculoskeletal: Amputee, Osteoporosis, Arthritis, Fibromyalgia, Rheumatoid Arthritis, Chronic Back Pain Endocrine: Hypothyroidsim HEENT: Glaucoma Cancer: Cervical Did You Recieve Any Treatments: Yes What Type of Treatment Did You: Surgical Intervention Psychosocial: Anxiety, Depression Reviewed History: Yes Social History Home: Single Level Current Living Status: Alone Entry Into Home: Stairs Without Railing PT Steps Into Home: 1 Patient states she has a large curb to go up to get into her home. Prior Prior Level of Function SCALE: Activities may be completed with or without assistive devices. 9-Ejhqvamizw-onmgodt completes the activity by him/herself with no assistance from a helper. 5-Set-up or Clean-up Assistance-helper sets up or cleans up; patient completes activity. Clinton assists only prior to or following the activity. 4-Supervision or Touching Assistance-helper provides verbal cues and/or touching/steadying and/or contact guard assistance as patient completes activity. Assistance may be provided throughout the activity or intermittently. 3-Partial/Moderate Assistance-helper does LESS THAN HALF the effort. Clinton lifts, holds or supports trunk or limbs, but provides less than half the effort. 2-Substantial/Maximal Assistance-helper does MORE THAN HALF the effort. Clinton lifts or holds trunk or limbs and provides more than half the effort. 3-Oselgsfac-lbahog does ALL the effort. Patient does none of the effort to complete the activity. Or, the assistance of 2 or more helpers is required for the patient to complete the activity. If activity was not attempted, code reason: 7-Patient Refused. 9-Not Applicable-not attempted and the patient did not perform the activity before the current illness, exacerbation or injury. 10-Not Attempted due to Environmental Limitations-(lack of equipment, weather restraints, etc.). 88-Not Attempted due to Medical Conditions or Safety Concerns. Bed Mobility: 6 Transfers (B,C,W/C): 6 Gait: 6 Indoor Mobility (Ambulation): Independent Prior Devices Use: Walker PT Evaluation-Current Subjective Patient in bed pre tx, agrees to PT, has 4/10 pain "all over". Patient states her pain has improved and used to be 10/10. Pt/Family Goals "to get around better" Objective Patient Orientation: Person, Place, Situation Attachments: IV ROM/Strength ROM Lower Extremities WNL Strength Lower Extremities 4-/5 gross BLE Sensory Vision: Wears Glasses Hearing: Functional Sensation Right Lower Extremit: Impaired Sensation Left Lower Extremity: Impaired Transfers Roll Left to Right (QC): 3 Lying to Sitting/Side of Bed(Q: 3 Sit to Stand (QC): 4 Chair/Xnu-vl-Aeyhn Xfer(QC): 4 Toilet Transfer (QC): 4 Patient needed min assist for supine to sit but only CGA for sit to stand, patient has to use the restroom, ambulated to restroom and sat on toilet (needed assist with brief), wipes herself and needs assist getting brief back up. Gait Does the Patient Walk?: Yes Mode of Locomotion: Walk Anticipated Mode of Locomotion: Walk Walk 10 feet (QC): 4 Walk 50 ft with 2 Turns(QC): 4 Distance: 120' Gait Assistive Device: FWW Comments/Gait Description slow but steady ambulation Balance Sitting Static: Normal Sitting Dynamic: Normal Standing Static: Good Standing Dynamic: Good Assessment/Needs Patient has impaired mobility, strength, endurance. Patient in bed post tx with nurse call, phone, tray, all needs met. Patient states she cannot move like she does this morning when her pain is not controlled. Rehab Potential: Fair PT Care Worker Goals Group Home Goals PT Care Worker Goals Time Frame: Nov 25, 2020 Roll Left & Right (QC): 6 Sit to Lying (QC): 6 Lying-Sitting on Side/Bed(QC): 6 Sit to Stand (QC): 5 Chair/Xpq-mh-Lzafk Xfer(QC): 5 Walk 10 feet (QC): 5 Walk 50ft with 2 Turns (QC): 5 Walk 150 ft (QC): 5 PT Plan Problem List Problem List: Activity Tolerance, Functional Strength, Safety, Balance, Gait, Transfer, Bed Mobility, ROM Treatment/Plan Treatment Plan: Continue Plan of Care Treatment Plan: Bed Mobility, Education, Functional Activity Rodolfo, Functional Strength, Gait, Safety, Therapeutic Exercise, Transfers Treatment Duration: Nov 25, 2020 Frequency: 6 times per week Estimated Hrs Per Day: .25 hour per day Patient and/or Family Agrees t: Yes Safety Risks/Education Patient Education: Gait Training, Transfer Techniques, Correct Positioning, Safety Issues Teaching Recipient: Patient Teaching Methods: Demonstration, Discussion Response to Teaching: Reinforcement Needed Discharge Recommendations Plan Patient will perform bed mobility and transfer training, balance and endurance training, functional strengthening, stair training, gait training, and education, to improve functional mobility and independence at home. Therapy Discharge Recommendati: Scheduled Assistance, Assisted Living, Post Acute PT Time/GCodes Time In: 854 Time Out: 918 Total Billed Treatment Time: 24 Total Billed Treatment 1 visit CRISTINA 10' FA 14' ANA M EARLY PT Nov 18, 2020 09:34
[2020-11-18 09:36] VITALS: BP 115/78
--- NOTE | 2020-11-18 10:52 | Occ Therapy Progress Note ---
Therapy Progress Note OT order received, chart reviewed. OT attempted to complete evaluation with pt. Pt. with social workers, face timing assisted livings. Will attempt back later. 1025 1, visit IRA KOEHLER OT Nov 18, 2020 10:52
--- NOTE | 2020-11-18 10:56 | NUR ---
CM/SS: Visited with pt as per discharge plan and her still wanting to go to the Assisted Living. Plan: Undetermined at this time - pt will likely go to an assisted living in [place] Summary: Pt reports having a good night and that she is still interested in going to the assisted living. Pt is given information about the assisted living in [place]. Pt is open a this time. Pt reports feeling a little anxious today she is reassured. Attempt to face time the facility supervisor, lars Greenwood other social organization professor to assist - face time is unable to be done, due to bad connection. Call to facility and talk briefly and they report they will be sending over videos for pt to review. This worker will follow up once the videos are received. Pt is ok with that. Pt is working on her ipad listening to the news.
[2020-11-18 12:00] VITALS: BP 149/80
--- NOTE | 2020-11-18 12:03 | NUR ---
CM/SS: [facility] in [place] can accept the pt for placement on today.
--- NOTE | 2020-11-18 12:03 | NUR ---
CM/SS: Telephone call to Pastor Roberts - [facility] - cell phone [phone] - to see if there is someone from the scientologist that can picker packer pt from hospital and assist the pt in getting to her placement in [place]. She will call this worker back when she has more information.
[2020-11-18] MEDS ORDERED: TRZ50T PO (12:04)
[2020-11-18] MEDS ORDERED: MTP25TSR PO (12:04)
[2020-11-18] MEDS ORDERED: ATOR40TA70 PO (12:04)
[2020-11-18] MEDS ORDERED: TRAM50TA3 PO (12:04)
[2020-11-18] MEDS ORDERED: ACET-93 PO (12:04)
[2020-11-18] MEDS ORDERED: DIVA500T15 PO (12:04)
[2020-11-18] MEDS ORDERED: ARIP10TA17 PO (12:04)
[2020-11-18] MEDS ORDERED: PRD10T PO (12:04)
[2020-11-18] MEDS ORDERED: GABA300C PO (12:04)
[2020-11-18] MEDS ORDERED: FURO20TA4 PO (12:04)
[2020-11-18] MEDS ORDERED: LEVO75TA6 PO (12:04)
[2020-11-18] MEDS ORDERED: PANT40TA52 PO (12:04)
[2020-11-18] MEDS ORDERED: ALPR.25T PO (12:04)
[2020-11-18] MEDS ORDERED: POTA20TA15 PO (12:04)
[2020-11-18] MEDS ORDERED: METO10TA3 PO (12:04)
[2020-11-18] MEDS ORDERED: ACHD5005 PO (12:04)
[2020-11-18] MEDS ORDERED: SUMA100T3 PO (12:04)
[2020-11-18] MEDS ORDERED: DULO30CA49 PO (12:04)
--- NOTE | 2020-11-18 12:06 | Discharge Summary ---
Discharge Summary Hospital Course Was the Problem List Reviewed?: Yes Problems/Dx: (1) LUPE (acute kidney injury) (2) Rheumatoid arthritis flare Status: Acute (3) Dementia Status: Acute (4) Age-related physical debility Status: Acute (5) Fibromyalgia Status: Acute (6) Anxiety Status: Acute Hospital Course Date of Admission: Nov 17, 2020 at 15:20 Admission Diagnosis : Family Physician/Provider: Luis Daniel Madden MD Date of Discharge: 11/18/20 Discharge Diagnosis: LUPE, dehydration, fibromyalgia flare, RA Hospital Course: Patient is a 75yo female who presented to the ER via EMS from home on 11/17/20 for CC that she had worsening rheumatoid arthritis and fibromyalgia pain that left her debilitated. She claims her pain issues have been worsening since her specification writer left and she was no longer able to receive her transfusions due to COVID-19. She has scheduled with a new specification writer so she can resume her care and she also has received steroid shots in this time which briefly helped. manager field services was consulted by the ER to discuss her living situation. Patient agreed she would like to go into assisted living to help with her care, and renal social worker began to facilitate this. manager field services were unable to locate an assisted living location on 11/17/20 so patient was admitted for her physical debility and pain management until an assisted living location was secured. Upon admission, patient was found to be very dehydrated and have an LUPE which were both treated alongside her pain management and anxiety. On 11/18/20 renal social worker was able to arrange an assisted living location for the patient in [place]. Patient appeared much better and felt that her symptoms were much improved. With the help of social work, patient was prepared to transition into assisted living and be discharged on 11/18/20. DERRELL DIEGO STUDENT Labs and Pending Lab Test: Laboratory Tests 11/17/20 21:27: White Blood Count 9.3, Red Blood Count 4.01, Hemoglobin 10.8L, Hematocrit 34L, Mean Corpuscular Volume 85, Mean Corpuscular Hemoglobin 27, Mean Corpuscular Hemoglobin Concent 32, Red Cell Distribution Width 17.2H, Platelet Count 264, Mean Platelet Volume 10.4, Immature Granulocyte % (Auto) 0, Neutrophils (%) (Auto) 69, Lymphocytes (%) (Auto) 21, Monocytes (%) (Auto) 10, Eosinophils (%) (Auto) 1, Basophils (%) (Auto) 0, Neutrophils # (Auto) 6.4, Lymphocytes # (Auto) 1.9, Monocytes # (Auto) 0.9, Eosinophils # (Auto) 0.1, Basophils # (Auto) 0.0, Immature Granulocyte # (Auto) 0.0, Sodium Level 140, Potassium Level 3.7, Chloride Level 101, Carbon Dioxide Level 25, Anion Gap 14, Blood Urea Nitrogen 34H, Creatinine 2.01H, Estimat Glomerular Filtration Rate 24, BUN/Creatinine Ratio 17, Glucose Level 96, Lactic Acid Level 1.99, Calcium Level 8.6, Corrected Calcium 9.1, Total Bilirubin 0.4, Aspartate Amino Transf (AST/SGOT) 18, Alanine Aminotransferase (ALT/SGPT) 15, Alkaline Phosphatase 110, Total Creatine Kinase 110, Total Protein 6.1L, Albumin 3.4, Thyroid Stimulating Hormone (TSH) 2.06 Home Meds Active Acetaminophen 500 Mg Tablet 1,000 Mg PO Q8H PRN Hydrocodone-Acetamin 5-325 mg (Hydrocodone/Acetaminophen) 1 Each Tablet 1 Tab PO Q6H PRN Benadryl Allergy (Diphenhydramine HCl) 25 Mg Tablet 25-50 Mg PO Q6H PRN Aspirin EC (Aspirin) 81 Mg Tablet.dr 81 Mg PO DAILY Ondansetron Odt (Ondansetron) 4 Mg Tab.rapdis 4 Mg PO Q8H PRN Metoclopramide HCl 10 Mg Tablet 10 Mg PO QIDACHS PRN Prednisone 10 Mg Tab 10 Mg PO DAILY Duloxetine HCl 30 Mg Capsule.dr 30 Mg PO DAILY Aripiprazole 10 Mg Tablet 10 Mg PO DAILY Metoprolol Succinate 25 Mg Tab.er.24h 50 Mg PO DAILY TAKES 2 (25MG) TABS Trazodone HCl 50 Mg Tablet 50 Mg PO HS Atorvastatin Calcium 40 Mg Tablet 40 Mg PO DAILY Pantoprazole Sodium 40 Mg Tablet.dr 40 Mg PO DAILY Potassium Chloride 20 Meq Tab.er.prt 20 Meq PO TID Furosemide 20 Mg Tablet 20 Mg PO DAILY Sumatriptan Succinate 100 Mg Tablet 50 Mg PO Q2H PRN MDD 200MG TAKES OF A 100MG TAB Xanax Tablet (Alprazolam) 0.25 Mg Tablet 0.25 Mg PO TID PRN Tramadol HCl 50 Mg Tablet 50-100 Mg PO Q6H PRN Divalproex Sodium ER (Divalproex Sodium) 500 Mg Tab.er.24h 500 Mg PO DAILY Levothyroxine Sodium 75 Mcg Tablet 75 Mcg PO DAILY Neurontin (Gabapentin) 300 Mg Capsule 300 Mg PO DAILY Reported Nitroglycerin 0.4 Mg Tab.subl 0.4 Mg PO UD PRN Assessment/Pt Instructions [facility] 1 week Discharge Planning: <30 minutes discharge planning Discharge Physical Examination Vital Signs Vital Signs Date Time Temp Pulse Resp B/P (MAP) Pulse Ox O2 Delivery O2 Flow Rate FiO2 11/18/20 08:00 36.7 87 20 115/78 (90) 95 Room Air General Appearance: No Apparent Distress, WD/WN, Chronically ill Respiratory: Chest Non Tender, Lungs Clear, Normal Breath Sounds, No Accessory Muscle Use, No Respiratory Distress Cardiovascular: Regular Rate, Rhythm, No Edema, No Gallop, No JVD, No Murmur, Normal Peripheral Pulses Neurologic/Psychiatric: Alert, Oriented x3, No Motor/Sensory Deficits, Normal Mood/Affect Allergies: Coded Allergies: Sulfa (Sulfonamide Antibiotics) (Verified Allergy, Unknown, 05/17/19) Discharge Summary Date of Admission Nov 17, 2020 at 15:20 Date of Discharge Discharge Date: Nov 18, 2020 Admission Diagnosis Assessment: Severe debility Fibromyalgia Chronic pain Anxiety Dehydration LUPE creat 2.0 Plan: PT OT [facility] at [facility] Discharge Diagnosis (1) LUPE (acute kidney injury) (2) Rheumatoid arthritis flare Status: Acute (3) Dementia Status: Acute (4) Age-related physical debility Status: Acute (5) Fibromyalgia Status: Acute (6) Anxiety Status: Acute VINNIE DICK DO Nov 18, 2020 12:06
[2020-11-18 13:02] LABS: CALCIUM 8.6 MG/DL (8.5-10.1); CREATININE SERUM 1.46 MG/DL (0.60-1.30); POTASSIUM 3.9 MMOL/L (3.6-5.0)
--- NOTE | 2020-11-18 13:09 | Progress Note ---
DERRELL DIEGO MED STUDENT 11/18/20 1309: Progress Note Patient is a 75yo female who presented to the ER via EMS from home on 11/17/20 for CC that she had worsening rheumatoid arthritis and fibromyalgia pain that left her debilitated. She claims her pain issues have been worsening since her animator left and she was no longer able to receive her transfusions due to COVID-19. She has scheduled with a new animator so she can resume her care and she also has received steroid shots in this time which briefly helped. vp client services was consulted by the ER to discuss her living situation. Patient agreed she would like to go into assisted living to help with her care, and social psychologist began to facilitate this. vp client services were unable to locate an assisted living location on 11/17/20 so patient was admitted for her physical debility and pain management until an assisted living location was secured. Upon admission, patient was found to be very dehydrated and have an LUPE which were both treated alongside her pain management and anxiety. On 11/18/20 social psychologist was able to arrange an assisted living location for the patient in [place]. Patient appeared much better and felt that her symptoms were much improved. With the help of social work, patient was prepared to transition into assisted living and be discharged on 11/18/20. MARY JO DICK DO 11/18/205: Supervisory-Addendum Brief Verification & Attestation Participated in pt care: history, MDM, physical Personally performed: exam, history, MDM, supervision of care Care discussed with: Medical Student Procedures: n/a Results interpretation: Verified all documentation Verification and Attestation of Medical Student E/M Service A medical student performed and documented this service in my presence. I reviewed and verified all information documented by the medical student and made modifications to such information, when appropriate. I personally performed the physical exam and medical decision making. Mary Jo Dick, Nov 18, 2020,21:15 DERRELL DIEGO MED STUDENT Nov 18, 2020 13:09 MARY JO DICK DO Nov 18, 2020 21:15
--- NOTE | 2020-11-18 13:40 | Occupational Therapy Eval ---
OT Evaluation-General/PLF Medical Diagnosis Admission Date Nov 17, 2020 at 15:20 Medical Diagnosis: debility Onset Date: Nov 17, 2020 Therapy Diagnosis Therapy Diagnosis: Weakness Height/Weight Height (Feet): 5 Height (Inches): 2.00 Weight (Pounds): 125 Weight (Ounces): 0 Precautions Precautions/Isolations: Fall Prevention, Standard Precautions Weight Bear Status Weight Bearing Restriction: Weight Bearing/Tolerated Referral Physician: Mary Jo Wu DO Referral Reason: Activity Tolerance, Self Care, Evaluation/Treatment, Strengthening/ROM Medical History Pertinent Medical History: Arthritis, Dementia, Fractures, GERD, Neuropathy, Rheumatoid Arthritis Additional Medical History Right toes 3, 4, 5 amputated, hysterectomy, Left shoulder replacement, bowel surgery, rectal prolapse, hernia repair, dementia, vertigo. Current History Pt. very anxious. States that she has difficulty caring for self at home. Reviewed History: Yes Social History Home: Single Level Current Living Status: Alone Entry Into Home: Stairs Without Railing Steps Into Home: 1 ADL-Prior Level of Function SCALE: Activities may be completed with or without assistive devices. 0-Hrzmlkowzn-mekqbby completes the activity by him/herself with no assistance from a helper. 5-Set-up or Clean-up Assistance-helper sets up or cleans up; patient completes activity. Mcintosh assists only prior to or following the activity. 4-Supervision or Touching Assistance-helper provides verbal cues and/or touching/steadying and/or contact guard assistance as patient completes activity. Assistance may be provided throughout the activity or intermittently. 3-Partial/Moderate Assistance-helper does LESS THAN HALF the effort. Mcintosh lifts, holds or supports trunk or limbs, but provides less than half the effort. 2-Substantial/Maximal Assistance-helper does MORE THAN HALF the effort. Mcintosh lifts or holds trunk or limbs and provides more than half the effort. 1-Oboetlacz-cbfaaq does ALL the effort. Patient does none of the effort to complete the activity. Or, the assistance of 2 or more helpers is required for the patient to complete the activity. If activity was not attempted, code reason: 7-Patient Refused. 9-Not Applicable-not attempted and the patient did not perform the activity before the current illness, exacerbation or injury. 10-Not Attempted due to Environmental Limitations-(lack of equipment, weather restraints, etc.). 88-Not Attempted due to Medical Conditions or Safety Concerns. ADL PLOF Comments Pt. reports that she lives alone. She reports, "I have no one." However, does mention having children. Pt. states that she only sponge bathes at home because she becomes too cold in the shower. She is able to dress self, but occasionally has difficulty. She uses a quad cane in the house, but uses a walker outside. She would like to go to an Assisted Living, and reports to this therapist that she is discharging to [facility] in [facility]. Self Care: Needed Some Help Functional Cognition: Unknown DME/Equipment Comments walker, quad cane OT Current Status Subjective No pain reported. Appearance Pt. in bed with HOB elevated when OT came into room. Pt. eating lunch. Mental Status/Objective Patient Orientation: Person, Place Attachments: IV ADL-Treatment Eating (QC): 6 On/Off Footwear (QC): 4 Toileting Hygiene (QC): 4 Other Treatments Pt. talks with OT regarding prior history and discharge plans. She does not currently have clothing here to change into before discharge, but states, "they are working on it." Pt. is able to transfer supine-sit, and sit-stand with min assist using walker. Pt. ambulated into bathroom and was able to transfer to toilet with CGA. Pt. toileted with CGA, and washed hands at sink. Transferred back to bed with SBA. Pt. reports that her bottom hurts at home when she sits in her chair too long. Pt. indicates that she has a waffle cushion. OT encourages her at [facility] to make sure to take standing breaks, and change positions frequently. Pt. in supine position with HOB elevated finishing lunch. OT educates pt. to return to side when done. Pt. verbalizes understanding. All needs met. Education OT Patient Education: Correct positioning, Modified ADL techniques, Progress toward Goal/Update tx plan, Purpose of tx/functional activities, Reviewed precautions, Rehab process, Transfer techniques Teaching Recipient: Patient Teaching Methods: Demonstration, Discussion Response to Teaching: Verbalize Understanding, Return Demonstration OT Chcf Goals Chcf Goals Time Frame: Nov 18, 2020 Eating (QC): 6 Toileting Hygiene (QC): 4 On/Off Footwear (QC): 4 1=Demonstrate adherence to instructed precautions during ADL tasks. 2=Patient will verbalize/demonstrate understanding of assistive devices/modifications for ADL. 3=Patient will improve strength/tolerance for activity to enable patient to perform ADL's. No goals written at this facility, as pt. is discharging to [facility]. Pt. would benefit from continued occupational therapy to increase overall endurance and ADL skills. OT Education/Plan Problem List/Assessment Assessment: Decreased Activ Tolerance, Impaired I ADL's, Impaired Self-Care Skills Discharge Recommendations Plan/Recommendations: Follow-up Planned Therapy Discharge Recommendati: Assisted Living Treatment Plan/Plan of Care Treatment,Training & Education: Yes Patient would benefit from OT for education, treatment and training to promote independence in ADL's, mobility, safety and/or upper extremity function for ADL's. Plan of Care: ADL Retraining, Functional Mobility Treatment Duration: Nov 18, 2020 Frequency: 1 time per week Estimated Hrs Per Day: .5 hour per day Agreement: Yes Rehab Potential: Fair Time/GCodes Start Time: 12:58 Stop Time: 13:27 Total Time Billed (hr/min): 29 Billed Treatment Time 1, EVM x 15minutes, ADL x 14minutes IRA KOEHLER OT Nov 18, 2020 13:40
[2020-11-18 15:30] VITALS: BP 149/80
--- NOTE | 2020-11-18 15:30 | NUR ---
L CHEST PORT DEACCESSED USING STERILE TECHNIQUE. PT TOLERATED WELL. DC INSTRUCTIONS AND PRESCRIPTIONS GIVEN TO SW. KRUEGER ACCOMPANIED THE PT WITH COMMUNICATIONS OPERATOR TO EMERGENCY EXIT. PT BEING TRANSPORTED BY HER REHAB OFFICE COORDINATOR, REPORT CALLED TO [facility]STATES IN FS.
--- NOTE | 2020-11-18 15:39 | NUR ---
"RD ASSESSMENT PMHx: HTN; dementia; colitis; GERD; Crohn's disease; chronic constipation/diarrhea; hiatal hernia; irritable bowel, amputation; osteoporosis; RA; fibromyalgia; hypothyroidism; CA(cervical); PT INTERACTION: Pt was awake and pleasant during nutrition consult for MST score. Note pt has hx of dementia, per chart review. Pt states current appetite is good, but it had been poor for the last 2 months. Note PO intake 25% x1meal, per chart review. Pt states following a regular diet at home, but has trouble chewing her food. Pt states having top dentures in, and that her bottom dentures do not fit so she does not wear them. Pt states some recent issues with nausea, vomiting, and constipation, and that her last BM was 11/17. Not pt not currently on bowel regimen per chart review. Pt states recent 30# wt loss x6mon. Note recent 1# wt loss x5mon, per chart review. Upon visual assessment, pt appears adequately nourished with no visible signs of muscle/fat loss that could not also be attributed to advanced age. Note pt has BMI of 22.7 (Normal BMI for age). Given PO intake, wt hx, and visual assessment, pt does not meet criteria for malnutrition per ASPEN guidelines. Note abnormal lab values of BUN 34 H; cr 2.01 H; and Pro 6.1 L, per chart review. Est. kcal needs: [id number] kcal | 25-30 kcal/kg Est. Pro needs: 45-56 g Pro | 0.8-1.0 g Pro/kg PES STATEMENT: Inadequate oral intake (NI-2.1) related to loss of appetite, nausea, vomiting, and constipation, as evidenced by pt interview, and PO intake 25% x1meal. INTERVENTION: Continue with current diet order of 2000mg Na diet, with modifier of DYS2 Mechanically Altered food. Encouraged pt to eat when able. Pt may benefit from nutrition supplementation if PO intake declines. Will continue to follow and reassess as pt needs, intake, and status change. Edyta LOPEZ, MS RD LD [phone] cell"
--- NOTE | 2020-11-18 16:53 | NUR ---
CM/SS: Telephone call to Pop [phone] - son of pt - letting him know that pt discharged from the hospital today to go home and then be admitted to the [facility] in [place] in the morning. He is also given the contact information for the facility.
--- NOTE | 2020-11-18 16:58 | NUR ---
CM/SS: [facility] has requested that pt be admitted in the morning as it is late in the day. They want pt to get her things together tonight, and come tomorrow. Pt is ok with that. University Professor Roberts is able to medicinal plant picker pt from hospital and take home and can take pt to [facility] in the Morning.
--- NOTE | 2020-11-19 10:59 | NUR ---
CM/SS: LATE ENTRY: Several phone calls after pt was discharged due to pt not having her house keys, and [place] [employer] attempting to get a hold of the landlord so that pt can get in. They had been unable to reach the landlord and are discussing options if pt can not get into her home. As this worker is talking to officer Jacob he hears back from the landlord and they are able to let the pt in her home. Telephone call from niece of pt from [place] [phone] - pt's brother in law is her father. She is in town visiting, and she just wants to let this worker know that pt has a history and that is why the most of the family are not as willing to help her due to past history and behaviors. The worker thanks her for calling. Telephone call from Pastor Roberts - she updates this worker about the above information. She also thanks this worker for her help. She will be able to take pt to the Assisted Living on tomorrow. This worker thanks the for help with pt.
== END 2020-11-18 15:30 | disposition home or self-care (01) ==
LOC: EDUNIT# 09:57 → ER 09:59 → 4TH 15:20 → EDLOC 15:20 → UNDOADMOB 15:20 → INTOOBSV 15:20 → 4TH 16:52 → UNDODISOB 11-18 15:30
PROVIDERS: ADMIT Internal Medicine; ATTEND Internal Medicine
DX: N17.9 Acute kidney failure, unspecified (principal); M06.9 Rheumatoid arthritis, unspecified; F03.90 Unspecified dementia, unspecified severity, without behavioral disturbance, psychotic disturbance, mood disturbance, and anxiety; R53.81 Other malaise; F41.0 Panic disorder [episodic paroxysmal anxiety]; M79.7 Fibromyalgia; J44.9 Chronic obstructive pulmonary disease, unspecified; G43.909 Migraine, unspecified, not intractable, without status migrainosus; K21.9 Gastro-esophageal reflux disease without esophagitis; E03.9 Hypothyroidism, unspecified; F41.9 Anxiety disorder, unspecified; F32.9 Major depressive disorder, single episode, unspecified; Z79.82 Long term (current) use of aspirin; Z79.899 Other long term (current) drug therapy; G89.29 Other chronic pain; Z88.2 Allergy status to sulfonamides; Z90.710 Acquired absence of both cervix and uterus; Z87.891 Personal history of nicotine dependence
CPT/HCPCS: 80048; 80053; 82550; 83605; 84443; 85025; 94760; 97162; 97166; 97530; 97535; 99284; G0378; 36415

== ENCOUNTER 2020-12-05 10:06 | Emergency (ER) | payer MEDICARE, MEDICAID ==
[~2020-12-05] VITALS: Ht 160 cm; Wt 60.0 kg
[~2020-12-05 10:06] MED LIST changes: +ACET-93 PO; +DIPH25TA65 PO
--- NOTE | 2020-12-05 10:22 | ED Lower Extremity ---
General Stated Complaint: RIGHT KNEE PAIN Source: patient, EMS History of Present Illness Date Seen by Provider: Dec 05, 2020 Time Seen by Provider: 10:06 Initial Comments 75-year-old female presenting by EMS from [facility]. She has chronic i ssues with her joints and pain in her right knee. She states that 2 years ago she was told by an orthopedic doctor out of Ortho for states that the only thing holding her knee together was arthritis. She had more problems with her left shoulder at that time and so they had surgery on it. Since then her insurance is changed and she has not gotten in with another orthopedic doctor. She recently moved to [facility] after recent hospital stay. She denies any direct trauma or injury to her knee but this am while walking her dog she felt her knee give out and the only thing keeping her up was her walker. She has taken 2 Tramadol for pain since 8 am when this happened. She denies numbness or tingling in the knee. She can move her knee and it is mostly painful when she is walking or bearing weight. Allergies and Home Medications Allergies Coded Allergies: Sulfa (Sulfonamide Antibiotics) (Verified Allergy, Unknown, 05/17/19) Home Medications ALPRAZolam 0.25 Mg Tablet, 0.25 MG PO TID PRN for ANXIETY Prescribed by: VINNIE DICK on 11/18/20 120 Acetaminophen 500 Mg Tablet, 1,000 MG PO Q8H PRN for PAIN-MILD (1-4) Prescribed by: VINNIE DICK on 11/18/20 120 Aripiprazole 10 Mg Tablet, 10 MG PO DAILY Prescribed by: VINNIE DICK on 11/18/20 120 Aspirin 81 Mg Tablet.dr, 81 MG PO DAILY Prescribed by: VINNIE DICK on 11/18/20 120 Atorvastatin Calcium 40 Mg Tablet, 40 MG PO DAILY Prescribed by: VNINIE DICK on 11/18/20 120 Diphenhydramine HCl 25 Mg Tablet, 25-50 MG PO Q6H PRN for ALLERGY SYMPTOMS Prescribed by: VINNIE DICK on 11/18/20 120 Divalproex Sodium 500 Mg Tab.er.24h, 500 MG PO DAILY Prescribed by: VINNIE DICK on 11/18/20 120 Duloxetine HCl 30 Mg Capsule.dr, 30 MG PO DAILY Prescribed by: VINNIE DICK on 11/18/20 120 Furosemide 20 Mg Tablet, 20 MG PO DAILY Prescribed by: VINNIE DICK on 11/18/20 120 Gabapentin 300 Mg Capsule, 300 MG PO DAILY Prescribed by: VINNIE DICK on 11/18/20 120 Hydrocodone/Acetaminophen 1 Each Tablet, 1 TAB PO Q6H PRN for PAIN-SEVERE (9-10) Prescribed by: VINNIE DICK on 11/18/20 120 Levothyroxine Sodium 75 Mcg Tablet, 75 MCG PO DAILY Prescribed by: VINNIE DICK on 11/18/20 120 Metoclopramide HCl 10 Mg Tablet, 10 MG PO QIDACHS PRN for NAUSEA/VOMITING-3RD LINE Prescribed by: VINNIE DICK on 11/18/20 120 Metoprolol Succinate 25 Mg Tab.er.24h, 50 MG PO DAILY TAKES 2 (25MG) TABS Prescribed by: VINNIE DICK on 11/18/20 120 Nitroglycerin 0.4 Mg Tab.subl, 0.4 MG PO UD PRN for CHEST PAIN (ANGINA), (Reported) Ondansetron 4 Mg Tab.rapdis, 4 MG PO Q8H PRN for NAUSEA/VOMITING-1ST LINE Prescribed by: VINNIE DICK on 11/18/20 120 Pantoprazole Sodium 40 Mg Tablet.dr, 40 MG PO DAILY Prescribed by: VINNIE DICK on 11/18/20 120 Potassium Chloride 20 Meq Tab.er.prt, 20 MEQ PO TID Prescribed by: VINNIE DICK on 11/18/20 120 Prednisone 10 Mg Tab, 10 MG PO DAILY Prescribed by: VINNIE DICK on 11/18/20 120 Sumatriptan Succinate 100 Mg Tablet, 50 MG PO Q2H PRN for MIGRAINE TAKES OF A 100MG TAB Prescribed by: VINNIE DICK on 11/18/20 120 Tramadol HCl 50 Mg Tablet, 50-100 MG PO Q6H PRN for PAIN-MODERATE (5-7) Prescribed by: VINNIE DICK on 11/18/20 120 Trazodone HCl 50 Mg Tablet, 50 MG PO HS Prescribed by: VINNIE DICK on 11/18/20 120 Patient Home Medication List Home Medication List Reviewed: Yes Review of Systems Constitutional: No chills, No fever EENTM: no symptoms reported Respiratory: no symptoms reported Cardiovascular: no symptoms reported Gastrointestinal: no symptoms reported Genitourinary: no symptoms reported Musculoskeletal: see HPI Skin: No change in color, No rash Psychiatric/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: Denies Numbness, Denies Paresthesia Past Ffeubbr-Paislc-Ysntnn Hx Past Med/Social Hx: Reviewed Nursing Past Med/Soc Hx Patient Social History Alcohol Beverage of Choice: Wine Type Used: Cigarettes Former Smoker, Quit: May 13, 2009 2nd Hand Smoke Exposure: No Recent Hopitalizations: No Immunizations Up To Date Tetanus Booster (TDap): Less than 5yrs PED Vaccines UTD: Yes Date of Pneumonia Vaccine: Nov 17, 2019 Date of Influenza Vaccine: Aug 16, 2020 Seasonal Allergies Seasonal Allergies: Yes Past Medical History Surgeries: Yes (PORT;HYST/BSO;BOWEL/RECTAL SURGERY;HIATAL HERNIA REPAIR;EGD/C- SCOPES) Abdominal, Adenoidectomy, Bowel Surgery, Gallbladder, Hysterectomy, Joint Replacement, Oophorectomy, Rectal, Tonsillectomy Respiratory: Yes Pneumonia, COPD Cardiac: Yes (PSVT; RBBB/LAFB) Hypertension 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: Yes Dementia, Headaches /Migraines, Neuropathy, Vertigo 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: Hysterectomy, Menopausal Genitourinary: No Gastrointestinal: Yes (BOWEL/RECTAL SURGERY;RECTAL PROLAPSE REPAIR;HIATAL HERNIA REPAIR; U.COLITIS) Colitis, Gastroesophageal Reflux, Crohns Disease, Chronic Constipation, Chronic Diarrhea, Hiatal Hernia, Gall Bladder Disease, Irritable Bowel Musculoskeletal: Yes (FALLS, USES WALKER; R TOES 3,4,5 AMPUTATED) Amputee, Osteoporosis, Arthritis, Fibromyalgia, Rheumatoid Arthritis, Chronic Back Pain Endocrine: Yes Hypothyroidsim HEENT: Yes Glaucoma Cancer: Yes Cervical Did You Recieve Any Treatments: Yes What Type of Treatment Did You: Surgical Intervention Psychosocial: Yes (EXTENSIVE PSYCH ISSUES) Anxiety, Depression Integumentary: No Blood Disorders: No Family Medical History Patient reports no known family medical history. No Pertinent Family Hx PSH: -HYSTERECTOMY/BILATERAL SALPINGO-OOPHORECTOMY -BOWEL SURGERY FOR OBSTRUCTION -LAPAROSCOPY -RECTAL PROLAPSE REPAIR/SIGMOID RESECTION -UMBILICAL HERNIA REPAIR -HIATAL HERNIA REPAIR -HEMORRHOIDECTOMY -TONSILLECTOMY/ADENOIDECTOMY -CHOLECYSTECTOMY -PORT LEFT CHEST -RIGHT TOES 3,4,5 AMPUTATED -LEFT SHOULDER REPLACEMENT HAS CHRONIC RECTAL PAIN COMPLAINTS Physical Exam Vital Signs Vital Signs - First Documented 12/05/20 10:25 Temp 36.1 Pulse 92 Resp 18 B/P (MAP) 113/58 (76) Pulse Ox 100 O2 Delivery Room Air Capillary Refill : Height, Weight, BMI Height: 5'2.00" Weight: 125lbs. 0oz. 56.643657vn; 22.65 BMI Method:Stated General Appearance: WD/WN, no apparent distress Cardiovascular: normal peripheral pulses Knees: right knee bone tenderness, right knee pain, right knee other (no laxity with varus and valgus stress. Negative drawer sign) Neurologic/Tendon: normal sensation, normal motor functions, normal tendon functions Neurologic/Psychiatric: alert, oriented x 3 Skin: normal color, warm/dry Progress/Results/Core Measures Results/Orders My Orders Orders - ROBERT LY MD Knee 3 View Right (12/05/20 10:15) Jose Bandage (12/05/20 10:31) Vital Signs/I&O 12/05/20 10:25 Temp 36.1 Pulse 92 Resp 18 B/P (MAP) 113/58 (76) Pulse Ox 100 O2 Delivery Room Air Progress Progress Note #1: Progress Note Counseled that she needs to follow up with Orthopedics as an outpatient. Will obtain xrays of the knee to have baseline imaging. Progress Note #2: Time: 10:43 Progress Note On my review of her films she has no acute change from imaging done in 2019. Treat with jose bandage for support, continue to use walker, follow up with Ortho and pcp, continue Tramadol for pain and supplement with acetaminophen if needed. Diagnostic Imaging Diagonstic Imaging: Xray Plain Films/CT/US/NM/MRI: knee Comments On my review of 3 views of right knee no acute fracture or dislocation. No effusion. Appears similar to imaging from 2019 with arthritic changes. NAME: YOVANY BLISS MED REC#: [id number] PT STATUS: DEP ER : 1945 PHYSICIAN: ROBERT LY MD ADMIT DATE: 12/05/20/ER FS Draft Date of Exam:12/05/20 KNEE 3 VIEW RIGHT EXAM: KNEE 3 VIEW RIGHT INDICATION: Right knee pain. COMPARISON: Right knee radiographs 10/22/2019. FINDINGS: No fracture or malalignment. Mild to moderate tricompartmental degenerative changes including joint space loss and sclerosis. Demineralization. No joint effusion. No radiopaque foreign bodies. IMPRESSION: Mild to moderate tricompartmental degenerative changes are similar to the prior exam. No acute radiographic findings. Dictated on workstation # [id number] Dict: 12/05/20 1043 Trans: 12/05/20 1049 [facility] [id number] Interpreted by: JAROCHO SCOTT MD Electronically signed by: Reviewed: Reviewed by Me Departure Impression Primary Impression: Arthritis of knee, right Additional Impression: Right knee pain Qualified Codes: M25.561 - Pain in right knee; G89.29 - Other chronic pain Disposition: HOME, SELF-CARE Condition: Stable Departure-Patient Inst. Decision time for Depature: 10:43 Referrals: MAC HANDY MD (PCP/Family) Primary Care Physician BILL SHEA MD Patient Instructions: Knee Pain ED, Chronic Knee Pain (DC), Osteoarthritis (DC) Add. Discharge Instructions: Follow up with Orthopedics about your knee. You can call [phone] to get appointment with Dr. Shea or ROOSEVELT Balderrama for follow up about your knee. Use Jose bandage to help with support for your knee. Continue to use your walker. Continue to use Tramadol for severe pain and Acetaminophen to help supplement the Tramadol for pain control. ROBERT LY MD Dec 05, 2020 10:22
[2020-12-05 10:25] VITALS: BP 113/58
--- NOTE | 2020-12-05 10:50 | Diagnostic Imaging Report ---
EXAM: KNEE 3 VIEW RIGHT INDICATION: Right knee pain. COMPARISON: Right knee radiographs 10/22/2019. FINDINGS: No fracture or malalignment. Mild to moderate tricompartmental degenerative changes including joint space loss and sclerosis. Demineralization. No joint effusion. No radiopaque foreign bodies. IMPRESSION: Mild to moderate tricompartmental degenerative changes are similar to the prior exam. No acute radiographic findings. Dictated by: Dictated on workstation # [id number]
== END 2020-12-05 10:48 | disposition home or self-care (01) ==
LOC: EDUNIT# 10:06 → ER FS 10:07
DX: M17.11 Unilateral primary osteoarthritis, right knee (principal); F41.9 Anxiety disorder, unspecified; F32.9 Major depressive disorder, single episode, unspecified; E03.9 Hypothyroidism, unspecified; K21.9 Gastro-esophageal reflux disease without esophagitis; G89.29 Other chronic pain; M54.9 Dorsalgia, unspecified; J44.9 Chronic obstructive pulmonary disease, unspecified; G43.909 Migraine, unspecified, not intractable, without status migrainosus; I10 Essential (primary) hypertension; Z88.2 Allergy status to sulfonamides; Z85.41 Personal history of malignant neoplasm of cervix uteri; Z87.891 Personal history of nicotine dependence; Z79.52 Long term (current) use of systemic steroids; Z79.82 Long term (current) use of aspirin; Z79.890 Hormone replacement therapy; Z79.891 Long term (current) use of opiate analgesic
CPT/HCPCS: 73562

== ENCOUNTER → 2020-12-15 | Outpatient (CLI) | payer MEDICARE, MEDICAID ==
[~2020-12-15] MED LIST changes: +RT-ALBUTEROL SULF 2.5 MG/3 ML PRE-MIX VIAL INH ONE
[2020-12-15 12:48] LABS: CREATININE SERUM 1.16 MG/DL (0.60-1.30)
--- NOTE | 2020-12-15 13:46 | Diagnostic Imaging Report ---
EXAMINATION: CT Chest without contrast. TECHNIQUE: Multiple contiguous axial images were obtained through the chest without the use of intravenous contrast. All CT scans use one or more of the following dose optimizing techniques: automated exposure control, MA and/or KvP adjustment based on a patient size and exam type, or iterative reconstruction. HISTORY: Shortness breath and cough. COMPARISON: None available. FINDINGS: There is no edema or pneumonia. No pleural effusion. No pneumothorax. No suspicious nodules. There is dendriform pulmonary ossification in the right lower lobe, likely due to aspiration. There is no axillary or supraclavicular lymphadenopathy. There is no mediastinal lymphadenopathy. Port catheter is present on the left. There is a large hiatal hernia. Heart size is normal. There are mild coronary artery calcifications. No pericardial effusion. Aorta is normal in caliber. Limited views of the upper abdomen show changes of cholecystectomy. There are no suspicious osseous lesions. There is severe degenerative disc and facet disease in the thoracic spine. IMPRESSION: 1. Mild dendriform pulmonary ossification in the right lower lobe which is likely due to prior aspiration events. Dictated by: Dictated on workstation # [id number]
== END ==
LOC: RT 13:00
PROVIDERS: ATTEND Nurse Practitioner Family
DX: J44.9 Chronic obstructive pulmonary disease, unspecified (principal)
CPT/HCPCS: 36415; 71250; 82565; 84520; 94060; 94726; 94729

== ENCOUNTER → 2021-01-04 | Outpatient (CLI) | payer MEDICARE, MEDICAID ==
[~2021-01-04] MED LIST changes: -METO10TA3 PO; +MTC10T PO; -RT-ALBUTEROL SULF 2.5 MG/3 ML PRE-MIX VIAL INH ONE
== END ==
LOC: WOUNDCARE 13:47
PROVIDERS: ATTEND Surgery
DX: G60.8 Other hereditary and idiopathic neuropathies (principal); L97.512 Non-pressure chronic ulcer of other part of right foot with fat layer exposed; I89.0 Lymphedema, not elsewhere classified; M05.9 Rheumatoid arthritis with rheumatoid factor, unspecified
CPT/HCPCS: 11042; A6197; G0463

== ENCOUNTER → 2021-01-11 | Outpatient (CLI) | payer MEDICARE, MEDICAID | LOC: WOUNDCARE 11:29 | PROVIDERS: ATTEND Surgery | DX: G60.8 Other hereditary and idiopathic neuropathies (principal); I89.0 Lymphedema, not elsewhere classified; L97.512 Non-pressure chronic ulcer of other part of right foot with fat layer exposed; M05.9 Rheumatoid arthritis with rheumatoid factor, unspecified; I96 Gangrene, not elsewhere classified | CPT/HCPCS: 11042 ==

== ENCOUNTER → 2021-01-18 | Outpatient (CLI) | payer MEDICARE, MEDICAID | LOC: WOUNDCARE 12:23 | PROVIDERS: ATTEND Surgery | DX: G60.8 Other hereditary and idiopathic neuropathies (principal); I96 Gangrene, not elsewhere classified; L97.512 Non-pressure chronic ulcer of other part of right foot with fat layer exposed; I89.0 Lymphedema, not elsewhere classified; M05.9 Rheumatoid arthritis with rheumatoid factor, unspecified | CPT/HCPCS: 11042; G0463 ==

== ENCOUNTER → 2021-01-25 | Outpatient (CLI) | payer MEDICARE, MEDICAID | LOC: WOUNDCARE 12:57 | PROVIDERS: ATTEND Surgery | DX: G60.8 Other hereditary and idiopathic neuropathies (principal); I89.0 Lymphedema, not elsewhere classified; L97.512 Non-pressure chronic ulcer of other part of right foot with fat layer exposed; M05.9 Rheumatoid arthritis with rheumatoid factor, unspecified; I96 Gangrene, not elsewhere classified | CPT/HCPCS: 11042 ==

== ENCOUNTER → 2021-02-08 | Outpatient (CLI) | payer MEDICARE, MEDICAID | LOC: WOUNDCARE 12:13 | PROVIDERS: ATTEND Surgery | DX: G60.8 Other hereditary and idiopathic neuropathies (principal); I89.0 Lymphedema, not elsewhere classified; L97.512 Non-pressure chronic ulcer of other part of right foot with fat layer exposed; M05.9 Rheumatoid arthritis with rheumatoid factor, unspecified; I96 Gangrene, not elsewhere classified | CPT/HCPCS: 99212 ==

== ENCOUNTER → 2021-04-27 | Outpatient (CLI) | payer MEDICARE, MEDICAID ==
[~2021-04-27] MED LIST changes: -ARIP10TA17 PO; +ARIP10TA55 PO
--- NOTE | 2021-04-27 12:05 | Diagnostic Imaging Report ---
PROCEDURE: MRI right lower extremity without contrast. TECHNIQUE: Multiplanar, multisequence non contrast-enhanced MRI of the right lower extremity was accomplished. INDICATION: Ulceration of the right foot. COMPARISON: None FINDINGS: There is marked bone marrow edema in the right great toe distal phalangeal base and in the proximal phalangeal head with associated T1-weighted hypointensity. There is an MRI marker at the dorsal great toe marking the ulceration. There is surrounding soft tissue edema. There appears to be marked degenerative change at the great toe interphalangeal joint and mild lateral angulation of the distal phalanx. No drainable fluid collection is seen on this noncontrast exam. The 2nd and 3rd toes demonstrate a claw toe deformity. The 4th and 5th toes have been amputated. There is marked atrophy of the musculature, which is likely neurogenic. Imaged flexor and extensor tendons are unremarkable. IMPRESSION: 1. Ulceration dorsal to the right great toe interphalangeal joint with findings of osteomyelitis at the proximal and distal phalanges. 2. Soft tissue edema about the great toe with no drainable fluid collection seen. Dictated by: Dictated on workstation # [id number]
== END ==
LOC: RAD 10:15
PROVIDERS: ATTEND Podiatrist Foot & Ankle Surgery
DX: L97.519 Non-pressure chronic ulcer of other part of right foot with unspecified severity (principal); M86.9 Osteomyelitis, unspecified

== ENCOUNTER 2021-06-17 05:34 | Outpatient (CLI) | payer MEDICARE, MEDICAID ==
[~2021-06-17] VITALS: Ht 157.5 cm; Wt 63.6 kg
[2021-06-17] MEDS ORDERED: ceFAZolin INJECTION 1,000 MG in WATER (STERILE) FOR INJECTION 10 ML IV ONE (10:00)
== END 2021-06-17 09:58 | disposition home or self-care (01) ==
LOC: PREOP 05:34
PROVIDERS: ATTEND Podiatrist Foot & Ankle Surgery
DX: Z01.818 Encounter for other preprocedural examination (principal)

== ENCOUNTER → 2021-06-23 | Outpatient (CLI) | payer MEDICARE, MEDICAID ==
[~2021-06-23] MED LIST changes: +CEPH500C PO
--- NOTE | 2021-06-23 11:35 | Diagnostic Imaging Report ---
PROCEDURE: US right lower extremity venous. TECHNIQUE: Multiple real-time grayscale images were obtained over the right lower extremity in various projections. Additional spectral analysis and color Doppler duplex images were also obtained. Date: June 23, 2021. Indication: 76-year-old female, right calf pain. Comparison: August 10, 2010. Findings: The right common femoral vein, right superficial femoral vein, and right popliteal vein are patent with normal blood flow and response to augmentation. The right posterior tibial and peroneal veins are patent. The imaged portions of the right greater saphenous vein and deep femoral vein are patent. Impression: 1. Negative for right lower extremity deep venous thrombosis. Dictated by: Dictated on workstation # [id number]
== END ==
LOC: RAD FS 09:53
PROVIDERS: ATTEND Podiatrist Foot & Ankle Surgery
DX: M79.661 Pain in right lower leg (principal); R22.41 Localized swelling, mass and lump, right lower limb

== ENCOUNTER 2021-06-24 11:31 | Day surgery (SDC) | payer MEDICARE, MEDICAID ==
[2021-06-24] VITALS (8 sets, daily range): BP systolic 126–151; BP diastolic 62–82
[~2021-06-24] VITALS: Ht 157.5 cm; Wt 63.6 kg
[~2021-06-24 11:31] MED LIST changes: -CEPH500C PO
[2021-06-24] MEDS ORDERED: ceFAZolin INJECTION 1,000 MG in WATER (STERILE) FOR INJECTION 10 ML IV ONE (11:45)
[2021-06-24] MEDS ORDERED: BUPIVACAINE 0.5% 30 ML (SENSORCAINE) VIAL ONE (11:47)
[2021-06-24] MEDS ORDERED: LIDOCAINE 1% INJ 20 ML 20 ML VIAL ONE (11:47)
[2021-06-24] MEDS ORDERED: MIDAZOLAM 2 MG/2 ML (VERSED) VIAL ONE (12:05)
[2021-06-24] MEDS ORDERED: proPOfol 200 MG/20 ML (DIPRIVAN) VIAL IV ONE (12:05)
[2021-06-24] MEDS ORDERED: LIDOCAINE PF 2% 5 ML (XYLOCAINE) VIAL ONE (12:05)
[2021-06-24] MEDS ORDERED: KETAMINE SYRINGE 50 MG/5 ML SYRINGE ONE (12:06)
--- NOTE | 2021-06-24 12:16 | Progress Note-Pre Operative ---
Pre-Operative Progress Note H&P Reviewed The H&P was reviewed, patient examined and no changes noted. Date Seen by Provider: Jun 24, 2021 Time Seen by Provider: 12:15 Date H&P Reviewed: Jun 24, 2021 Time H&P Reviewed: 12:15 Pre-Operative Diagnosis: Osteomyelitis, right hallux DIANA MORALES DPFroilan Jun 24, 2021 12:16
[2021-06-24] MEDS ORDERED: LACTATED RINGERS 1,000 ML IV SCH (13:00)
[2021-06-24] MEDS ORDERED: HYDROcodone/APAP 5 MG/325 MG (LORTAB) TAB PO PRN (13:00)
--- NOTE | 2021-06-24 13:00 | Progress Note-Post Operative ---
Post-Operative Progess Note Surgeon (s)/Hand Router Operator (s) Surgeon DIANA MORALES DPM Hand Router Operator: None Pre-Operative Diagnosis Osteomyelitis, right hallux Post-Operative Diagnosis Same Procedure & Operative Findings Date of Procedure 06/24/21 Procedure Performed/Findings Biopsy and cultures of bone, right hallux Anesthesia Type MAC Estimated Blood Loss Estimated blood loss (mL): minimal Specimens/Packing Specimens Removed Right hallux distal and proximal phalanx bone DIANA MORALES DPM Jun 24, 2021 13:00
[2021-06-24] MEDS ORDERED: CEPH500C PO (13:02)
--- NOTE | 2021-06-24 13:21 | Anesthesia-General Post-Op ---
MAC Patient Condition Mental Status/LOC: Same as Preop Cardiovascular: Satisfactory Nausea/Vomiting: Absent Respiratory: Satisfactory Pain: Controlled Complications: Absent Post Op Complications Complications None Follow Up Care/Instructions Patient Instructions None needed. Anesthesiology Discharge Order Discharge Order Patient is doing well, no complaints, stable vital signs, no apparent adverse anesthesia problems. LAZARUS WHITE DO Jun 24, 2021 13:21
[2021-06-24] MEDS ORDERED: ONDANSETRON 4 MG/2 ML (SDV) Z0FRAN IVP PRN (13:30)
--- NOTE | 2021-06-24 13:37 | Diagnostic Imaging Report ---
INDICATION: Right foot postop. TIME OF EXAM: 1:18 PM FINDINGS: 2 views right foot show amputation of the 4th and 5th toes. There is generalized demineralization noted. There is a large osseous density projected posterior to the tibiotalar joint. This may represent an avulsion fragment from the calcaneus, age indeterminate. No other potential fractures are seen. There is a plantar calcaneal spur. IMPRESSION: Chronic deformity and postsurgical changes to the right foot. There is also a large well-corticated osseous fragment posteriorly which may arise from the calcaneus. The age of this is indeterminate. If further evaluation is warranted, CT may be useful for better characterization. Dictated by: Dictated on workstation # [id number]
--- NOTE | 2021-06-24 14:33 | Physical Therapy Ortho Eval ---
PT Orthopedic Evaluation Type of Surgery toe biopsy, partial weight bearing, RLE Prior Level of Function Current Living Status: Alone Locomotion (Upon Admit): Front Wheeled Walker Subjective Subjective Patient sitting EOB pre tx, agrees to PT, has no complaints of pain Entry Into Home: Level Entry Motor Control Motor Control: Motor Control WNL ROM ROM: WFL Transfer SCALE: Activities may be completed with or without assistive devices. 6-Qbsrlzsvsv-vxhehzd completes the activity by him/herself with no assistance f rom a helper. 5-Set-up or Clean-up Assistance-helper sets up or cleans up; patient completes activity. [place] assists only prior to or following the activity. 4-Supervision or Touching Assistance-helper provides verbal cues and/or touching/steadying and/or contact guard assistance as patient completes activity. Assistance may be provided throughout the activity or intermittently. 3-Partial/Moderate Assistance-helper does LESS THAN HALF the effort. [place] lifts, holds or supports trunk or limbs, but provides less than half the effort. 2-Substantial/Maximal Assistance-helper does MORE THAN HALF the effort. [place] lifts or holds trunk or limbs and provides more than half the effort. 7-Nyqnbyghh-hlfqdg does ALL the effort. Patient does none of the effort to complete the activity. Or, the assistance of 2 or more helpers is required for the patient to complete the activity. If activity was not attempted, code reason: 7-Patient Refused. 9-Not Applicable-not attempted and the patient did not perform the activity before the current illness, exacerbation or injury. 10-Not Attempted due to Environmental Limitations-(lack of equipment, weather restraints, etc.). 88-Not Attempted due to Medical Conditions or Safety Concerns. Transfers (B, C, W/C) (QC): 4 Gait Right Lower Extremity: Right Weight Bearing Status RLE: Partial Weight Bearing Left Lower Extremity: Left Weight Bearing Status LLE: Full Weight Bearing Summary/Comments Patient ambulated 150' with a rolling walker with SBA, slow but steady ambulation. Patient also went up and down 1 step using a rolling walker with SBA and cues for foot placement. Treatment Rendered Treatment: Therapeutic Exercises, Gait Train, Step Train Exercise Instruction: Ankle Pumps Assessment/Goals Goal Time Frame: 1 Visit Understands HEP: Yes Safe Ambulation: Yes Plan Treatment Plan: Discharge PT/Family Agrees to Plan: Yes Time Time In: 1415 Time Out: 1425 Total Billed Treatment Time: 10 Billed Treatment Time 1 visit EVANA M GONZALEZ PT Jun 24, 2021 14:33
--- NOTE | 2021-06-24 15:29 | OPERATIVE REPORT ---
DATE OF SERVICE: 06/24/2021 SURGEON: Beata Hoover DPM. PREOPERATIVE DIAGNOSIS: Osteomyelitis, right hallux distal and proximal phalanx. POSTOPERATIVE DIAGNOSIS: Osteomyelitis, right hallux distal and proximal phalanx. PROCEDURE: Bone biopsy and culture and sensitivity to the proximal and distal phalanx of the right hallux. WOUND CLASS: Contaminated. ANESTHESIA: Monitored anesthesia care. HEMOSTASIS: Pneumatic ankle tourniquet at 250 mmHg. INDICATIONS: This 76-year-old female presented with a chronic ulceration to the right great toe. A subsequent magnetic resonant imaging indicated osteomyelitis of the right hallux involving the proximal and distal phalanx. The patient had healed the ulceration so well, I felt it was in her best interest to possibly try long-term IV antibiotics depending on what the cultures and sensitivities might bring back. The patient is agreeable to surgical intervention after risks and complications were discussed at length. No guarantees were extended to the patient and she is willing to proceed. DESCRIPTION OF PROCEDURE: The patient was brought back to the operating table, and placed in a secure supine position. Anesthesia was achieved utilizing aseptic technique utilizing 10 mL of 1:1 mixture of 1% Xylocaine, 0.5% Marcaine injected in a digital block to the right hallux in a Francois block to the first ray. The right foot was then prepped and draped in normal sterile manner after an ankle tourniquet was applied. This was all done after an appropriate timeout was performed. Attention was then directed to the right foot after it was elevated and exsanguinated. The tourniquet was inflated to 250 mmHg. Attention was then directed to the dorsal aspect of the right hallux of the interphalangeal joint area where a 1.5 cm longitudinal linear incision was created. The incision was deepened down to the interphalangeal joint area with blunt and sharp dissection. Next, a trocar was introduced to the proximal aspect of the distal phalanx the midline of the bone. The specimen was retrieved, and a portion of the bone was sent for gross and microscopic evaluation and the other was sent for culture and sensitivity. Some slight purulent type material was retrieved at this time. The area was flushed with copious amounts of normal saline after which a separate trocar was utilized to receive a bone biopsy of the head of the proximal phalanx just medial of midline. This too was broken up into 2 pieces, one was sent for culture and sensitivity. The other for gross and microscopic evaluation or pathology. Prior to the final flush, some more of this purulent material was swabbed just to confirm potential appropriate antibiotic. Prior to closure, the wound was flushed with copious amounts of normal saline after which closure was performed in layers. The subcutaneous tissue was reapproximated utilizing 4-0 Vicryl, the skin was closed with 4-0 Prolene in a horizontal mattress type stitch. Postoperative dressing consisted of Betadine soaked Adaptic, sterile 4 x 4, sterile Kerlix all secured with a Coban wrap. The patient tolerated the anesthesia and procedure well, was transported from the operating room to the recovery room with vital signs stable and vascular status intact to remaining digits of the right foot. The patient is to follow up in my office in approximately 1 week period of time or sooner if necessary. She is to utilize a surgical splint shoe with a walker to reduce weightbearing to the right hallux. Job ID: [id number] DocumentID: [id number] Dictated Date: 06/24/2021 13:23:43 Senior Accountant Cpa Date: 06/24/2021 15:28:59 Dictated By: ANGI SOLORZANO
== END 2021-06-24 14:30 | disposition home or self-care (01) ==
LOC: SDC 11:31
PROVIDERS: ATTEND Podiatrist Foot & Ankle Surgery
DX: M86.9 Osteomyelitis, unspecified (principal); M05.741 Rheumatoid arthritis with rheumatoid factor of right hand without organ or systems involvement; M10.9 Gout, unspecified; M79.7 Fibromyalgia; M81.0 Age-related osteoporosis without current pathological fracture; K21.9 Gastro-esophageal reflux disease without esophagitis; G43.909 Migraine, unspecified, not intractable, without status migrainosus; G62.9 Polyneuropathy, unspecified; J44.9 Chronic obstructive pulmonary disease, unspecified; E03.9 Hypothyroidism, unspecified; K58.9 Irritable bowel syndrome, unspecified; I47.1 Supraventricular tachycardia; I10 Essential (primary) hypertension; F41.9 Anxiety disorder, unspecified; F31.9 Bipolar disorder, unspecified; Z79.899 Other long term (current) drug therapy; Z79.891 Long term (current) use of opiate analgesic
CPT/HCPCS: 73620; 87070; 87075; 87077; 87081; 87101; 87186; 87205; 88307; 88311

== ENCOUNTER 2021-09-22 05:34 | Outpatient (RCR) | payer MEDICARE, MEDICAID ==
[~2021-09-22] VITALS: Ht 162.6 cm; Wt 77.0 kg
[~2021-09-22 05:34] MED LIST changes: +ASPI-999 PO; +CEPH500C PO; +CETI10TA17 PO; +GBPN600T PO; +MONT10TA32 PO
== END 2021-09-22 09:25 | disposition home or self-care (01) ==
LOC: PREOP 05:34
PROVIDERS: ATTEND Podiatrist Foot & Ankle Surgery
DX: Z01.812 Encounter for preprocedural laboratory examination (principal); M20.21 Hallux rigidus, right foot; Z20.822 Contact with and (suspected) exposure to COVID-19
CPT/HCPCS: 87635

== ENCOUNTER 2021-09-26 05:57 | Day surgery (SDC) | payer MEDICARE, MEDICAID ==
[~2021-09-26] VITALS: Ht 162 cm; Wt 77.0 kg
[~2021-09-26 05:57] MED LIST changes: +CYCL10TA25 PO; +MONT-40 PO; -MONT10TA32 PO; +POTA-179 PO; -POTA20TA15 PO
[2021-09-26] MEDS ORDERED: LACTATED RINGERS 1,000 ML IV PRN (06:15)
[2021-09-26] MEDS ORDERED: ceFAZolin INJECTION 1,000 MG VIAL IV ONE (06:15)
[2021-09-26 06:30] VITALS: BP 129/74
[2021-09-26] MEDS ORDERED: BUPIVACAINE 0.5% 30 ML (SENSORCAINE) VIAL ONE (07:12)
[2021-09-26] MEDS ORDERED: LIDOCAINE 1% INJ 20 ML 20 ML VIAL ONE (07:15)
[2021-09-26] MEDS ORDERED: LIDOCAINE PF 2% 5 ML (XYLOCAINE) VIAL ONE (07:16)
[2021-09-26] MEDS ORDERED: proPOfol 200 MG/20 ML (DIPRIVAN) VIAL IV ONE ×2 (07:16→08:22)
[2021-09-26] MEDS ORDERED: MIDAZOLAM 2 MG/2 ML (VERSED) VIAL ONE (07:16)
--- NOTE | 2021-09-26 07:40 | Progress Note-Pre Operative ---
Pre-Operative Progress Note H&P Reviewed The H&P was reviewed, patient examined and no changes noted. Date Seen by Provider: Sep 26, 2021 Time Seen by Provider: 07:39 Date H&P Reviewed: Sep 26, 2021 Time H&P Reviewed: 07:39 Pre-Operative Diagnosis: Hallux Rigidus, right DIANA MORALES DPM Sep 26, 2021 07:40
[2021-09-26 08:52] VITALS: BP 141/84
--- NOTE | 2021-09-26 08:54 | Progress Note-Post Operative ---
Post-Operative Progess Note Surgeon (s)/Brick Paver (s) Surgeon DIANA MORALES DPM Brick Paver: none Pre-Operative Diagnosis Hallux Rigidus, right Post-Operative Diagnosis Hallux Rigidus, Hammertoes 2, 3, right Procedure & Operative Findings Date of Procedure 09/26/21 Procedure Performed/Findings Cali Bunionectomy, Flexor Tendon Release 2nd and 3rd toes, right foot Anesthesia Type General Estimated Blood Loss Estimated blood loss (mL): Minimal Specimens/Packing Specimens Removed Right 1st metatarsal head DIANA MORALES DPM Sep 26, 2021 08:54
[2021-09-26] MEDS ORDERED: CEPH500C PO (08:58)
[2021-09-26] MEDS ORDERED: ACHD5005 PO (08:58)
[2021-09-26 09:00] VITALS: BP 152/86
[2021-09-26] MEDS ORDERED: HYDROcodone/APAP 5 MG/325 MG (LORTAB) TAB PO PRN (09:00)
[2021-09-26] MEDS ORDERED: LACTATED RINGERS 1,000 ML IV SCH (09:00)
[2021-09-26] MEDS ORDERED: morphine INJ 10 MG/ML 1ML (SYR OR VIAL) IVP ONE (09:00)
[2021-09-26] MEDS ORDERED: ONDANSETRON 4 MG/2 ML (SDV) Z0FRAN IVP PRN (09:00)
--- NOTE | 2021-09-26 09:00 | Anesthesia-General Post-Op ---
MAC Patient Condition Mental Status/LOC: Same as Preop Cardiovascular: Satisfactory Nausea/Vomiting: Absent Respiratory: Satisfactory Pain: Controlled Complications: Absent Post Op Complications Complications None Follow Up Care/Instructions Patient Instructions None needed. Anesthesiology Discharge Order Discharge Order Patient is doing well, no complaints, stable vital signs, no apparent adverse anesthesia problems. LAZARUS WHITE DO Sep 26, 2021 09:00
[2021-09-26 09:10] VITALS: BP 156/88
[2021-09-26 09:20] VITALS: BP_SYST 143; BP_SYST 154; BP_DIAS 82; BP_DIAS 85
[2021-09-26 09:50] VITALS: BP 165/87
--- NOTE | 2021-09-26 10:00 | Diagnostic Imaging Report ---
INDICATION: Right foot surgery. TIME OF EXAM: 9:40 AM. FINDINGS: Two views of the right foot were obtained. There has been amputation of the 4th and 5th phalanges. There are K wires transfixing the 2nd and 3rd toes. Diffuse demineralization is noted. There are degenerative changes of the interphalangeal joint of the great toe. The midfoot and hindfoot are unremarkable. No fractures are seen. IMPRESSION: Postop changes, as described. Dictated by: Dictated on workstation # [id number]
--- NOTE | 2021-09-26 10:19 | Physical Therapy Ortho Eval ---
PT Orthopedic Evaluation Type of Surgery Prior Level of Function Current Living Status: Alone Locomotion (Upon Admit): Independent, Front Wheeled Walker Established Durable Medical Eq: Front Wheeled Walker Subjective Subjective Patient reports minimal pain at this time. Reports she will be going home alone, but has people that will be checking on her. Entry Into Home: Level Entry Motor Control Motor Control: Motor Control WNL ROM ROM: WFL, except focal deficit Strength Strength: WFL Transfer SCALE: Activities may be completed with or without assistive devices. 6-Gjpopstlsz-mugiusd completes the activity by him/herself with no assistance from a helper. 5-Set-up or Clean-up Assistance-helper sets up or cleans up; patient completes activity. [place] assists only prior to or following the activity. 4-Supervision or Touching Assistance-helper provides verbal cues and/or touching/steadying and/or contact guard assistance as patient completes activity. Assistance may be provided throughout the activity or intermittently. 3-Partial/Moderate Assistance-helper does LESS THAN HALF the effort. [place] lifts, holds or supports trunk or limbs, but provides less than half the effort. 2-Substantial/Maximal Assistance-helper does MORE THAN HALF the effort. [place] lifts or holds trunk or limbs and provides more than half the effort. 4-Xlkjwldoo-rnilae does ALL the effort. Patient does none of the effort to complete the activity. Or, the assistance of 2 or more helpers is required for the patient to complete the activity. If activity was not attempted, code reason: 7-Patient Refused. 9-Not Applicable-not attempted and the patient did not perform the activity before the current illness, exacerbation or injury. 10-Not Attempted due to Environmental Limitations-(lack of equipment, weather restraints, etc.). 88-Not Attempted due to Medical Conditions or Safety Concerns. Transfers (B, C, W/C) (QC): 5 Gait Gait Assistive Device: FWW Right Lower Extremity: Right Weight Bearing Status RLE: Partial Weight Bearing Left Lower Extremity: Left Weight Bearing Status LLE: Full Weight Bearing Gait (QC): 5 Distance (QC): 0=738-25 ft Distance: 60 Gait Level of Assist: 5 Treatment Rendered Treatment: Gait Train Assessment/Goals Goal Time Frame: 1 Visit Safe Ambulation: Yes Plan Treatment Plan: Discharge PT/Family Agrees to Plan: Yes Time Time In: 954 Time Out: 1015 Total Billed Treatment Time: 20 Billed Treatment Time Visit, NINO Boateng PT Sep 26, 2021 10:19
--- NOTE | 2021-09-26 15:50 | OPERATIVE REPORT ---
DATE OF SERVICE: 09/26/2021 SURGEON: Beata Morales DPM. PREOPERATIVE DIAGNOSIS: Hallux rigidus, right. POSTOPERATIVE DIAGNOSES: 1. Hallux rigidus, right. 2. Flexible hammertoe, second and third, right foot. PROCEDURE: 1. Cali bunionectomy, right. 2. Flexor tendon release, second and third toes, right foot. WOUND CLASS: Clean. ANESTHESIA: Monitored anesthesia care. HEMOSTASIS: Pneumatic ankle tourniquet at 250 mmHg. INDICATIONS: This 76-year-old female presents with a chronic contracture of the right great toe. 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 She had developed an abnormal gait and a rigid contracture of the right hallux. Since this is toes in a flexed position, she was dealing with a chronic ulceration to the right great toe. The ulceration healed up and we came to the conclusion that she is going to continue to reulcerate unless some significant orthopedic changes to be done to her right foot. She is agreeable to surgical intervention after risks and complications were discussed at length. No guarantees were extended to the patient and she is willing to proceed. DESCRIPTION OF PROCEDURE: The patient was brought back to the operating table, placed in secure supine position. Appropriate timeout was performed. A pneumatic ankle tourniquet was placed on the right lower extremity over several layers of padding. A 20 mL of 1:1 mixture of 1% Xylocaine, 0.5% Marcaine was injected in a Francois block to the right lower extremity. The right foot was then prepped and draped in normal sterile manner. The right foot was then elevated, allowed to exsanguinate, after which the tourniquet was inflated to 250 mmHg. Attention was then directed to the dorsal aspect of the right first ray where a 5 cm longitudinal linear incision was created overlying the metatarsophalangeal joint. The incision was deepened in the same plane with great care to identify and retract all vital neurovascular structures. Only necessary blood vessels were cauterized as encountered. The incision was deepened down to the capsular tissue where a longitudinal capsulotomy was performed exposing the dorsal eminence to the first metatarsal head, which was resected utilizing a power sagittal saw. The specimen was sent for gross and microscopic evaluation. The medial eminence to the first metatarsal head was also reduced. The remaining head of the first metatarsal was devoid of any major articular cartilage. The area was smoothed. Next, dissection was carried out to the base of the proximal phalanx where the medial and lateral collateral ligaments were released. The capsule tissue was held intact. The base of the proximal phalanx was resected almost a centimeter. This allowed for the proximal phalanx to finally come into the level of some dorsiflexion, which was approximately 25 degrees to the metatarsal head and diaphysis. Next, the capsular tissue on the medial aspect and lateral aspect of the first metatarsal were cut as distally as possible and then sewn together with 3-0 Vicryl interposing the first metatarsal head and remaining base of the proximal phalanx. This was done after the wound was flushed with copious amounts of normal saline. The first metatarsophalangeal joint was placed through its range of motion with minimal crepitation at this time. The extensor hallucis longus tendon was also repositioned in a little bit more medially to allow for more dorsiflexion strength. The wound was flushed once again, after which closure was performed in layers. A deep closure was performed with 3-0 Vicryl, superficial with 4-0 Vicryl, skin closed with 4-0 Prolene in a horizontal mattress type stitch. Once the hallux was improved from its plantar flexory position into a more appropriate anatomical position, it was evident that the flexible contractures of the second and third toes would be a pressure point issue, both to the tip of the toe as well as the dorsal aspect of the proximal interphalangeal joints. It was then decided that a flexor tendon release would be the best course of action for this patient in reducing the risk of further pressure point issues and possible ulcerations for the patient. The right second and third toes were anesthetized utilizing 1:1 mixture of 1% Xylocaine, 0.5% Marcaine with 3 mL used on each digit. The plantar aspect of the proximal interphalangeal joint was incised with an 11 blade with approximately 2-3 mm incision. With the tip of the blade, the flexor tendon was palpated and released to the second and third digit. This allowed the toe to come into more rectus alignment. The wound was flushed with copious amounts of normal saline. Utilizing a 0.045 K-wire, the digits were held in rectus alignment. The K-wires were driven from the distal phalanx through the proximal phalanx area and a protective ball placed over the end of the wires. The tourniquet was released noting appropriate cap refill time to all digits of the right and remaining digits of the right foot. Postoperative dressing consisted of Betadine-soaked Adaptic to the surgical site, sterile 4 x 4, sterile Kerlix all secured with a Coban wrap. The patient tolerated the anesthesia and procedure well, was transported from the operating room to the recovery room with vital signs stable and vascular status intact to all remaining digits of the right foot. She is to follow up in my office in 10 days' period of time or sooner if necessary. Job ID: [id number] DocumentID: [id number] Dictated Date: 09/26/2021 09:07:46 Animated Cartoons Painter Date: 09/26/2021 15:50:15 Dictated By: BEATA MORALES DPM
== END 2021-09-26 10:20 | disposition home or self-care (01) ==
LOC: SDC 05:57
PROVIDERS: ATTEND Podiatrist Foot & Ankle Surgery
DX: M20.21 Hallux rigidus, right foot (principal); M20.41 Other hammer toe(s) (acquired), right foot; E03.9 Hypothyroidism, unspecified; G62.9 Polyneuropathy, unspecified; J45.909 Unspecified asthma, uncomplicated; I10 Essential (primary) hypertension; E78.5 Hyperlipidemia, unspecified; G47.9 Sleep disorder, unspecified; M06.9 Rheumatoid arthritis, unspecified; M81.0 Age-related osteoporosis without current pathological fracture; K58.9 Irritable bowel syndrome, unspecified; F03.90 Unspecified dementia, unspecified severity, without behavioral disturbance, psychotic disturbance, mood disturbance, and anxiety; F41.1 Generalized anxiety disorder; F31.9 Bipolar disorder, unspecified; Z90.49 Acquired absence of other specified parts of digestive tract; Z90.710 Acquired absence of both cervix and uterus; Z79.82 Long term (current) use of aspirin; Z79.899 Other long term (current) drug therapy; Z79.890 Hormone replacement therapy; Z79.891 Long term (current) use of opiate analgesic; Z82.3 Family history of stroke
CPT/HCPCS: 28232 ×2; 28292; 73620; 87081; 97161; C1713

== ENCOUNTER → 2022-02-08 | Outpatient (CLI) | payer MEDICARE, MEDICAID | LOC: CARD 08:30 | PROVIDERS: ATTEND Internal Medicine Cardiovascular Disease | DX: I35.1 Nonrheumatic aortic (valve) insufficiency (principal); I51.7 Cardiomegaly | CPT/HCPCS: 93306 ==

== ENCOUNTER 2022-03-27 16:35 | Emergency (ER) | payer MEDICARE, MEDICAID ==
[~2022-03-27] VITALS: Ht 157.5 cm; Wt 81.6 kg
--- NOTE | 2022-03-27 16:51 | ED GU-Female ---
General Chief Complaint: - Reproductive Stated Complaint: URINARY ISSUES Source: patient Exam Limitations: no limitations History of Present Illness Date Seen by Provider: March 27, 2022 Time Seen by Provider: 16:24 Initial Comments Patient to the ER by EMS from home with chief complaint that for the past week and a half she has had increased leakage of urine whenever she lays on her left or right side. She always has some urinary incontinence usually stress incontinence. She is not on oxybutynin or similar drug. She does not see a urologist. She is known to Emelia Taylor for primary care. She has not reached out to her primary care provider for this. She had a hysterectomy as well as tubes tied and gallbladder in her past surgical history. She is not having fever or chills, nausea or vomiting. No weakness falls cough shortness of air or chest pain. History of rheumatoid arthritis and ulcerative colitis, anxiety, bipolar disorder, hypertension, hypothyroidism. Allergies and Home Medications Allergies Coded Allergies: Sulfa (Sulfonamide Antibiotics) (Verified Allergy, Unknown, 05/17/19) Patient Home Medication List Home Medication List Reviewed: Yes ALPRAZolam (Xanax Tablet) 0.25 Mg Tablet, 0.25 MG PO TID PRN for ANXIETY Prescribed by: VINNIE DICK on 11/18/20 1204 Acetaminophen (Acetaminophen) 500 Mg Tablet, 1,000 MG PO Q8H PRN for PAIN-MILD (1-4) Prescribed by: VINNIE DICK on 11/18/20 1204 Aripiprazole (Aripiprazole) 10 Mg Tablet, 10 MG PO DAILY Prescribed by: VINNIE DICK on 11/18/20 1204 Aspirin (Aspirin EC) 81 Mg Tablet.dr, 81 MG PO DAILY Prescribed by: VINNIE DICK on 11/18/20 1204 Aspirin (Aspirin) 81 Mg Tab.chew, 81 MG PO DAILY, (Reported) Entered as Reported by: CAROL HAUSER on 09/21/21 0918 Atorvastatin Calcium (Atorvastatin Calcium) 40 Mg Tablet, 40 MG PO DAILY Prescribed by: VINNIE DICK on 11/18/20 1204 Cephalexin (Cephalexin) 500 Mg Capsule, 1 CAP PO TID Prescribed by: DIANA MORALES on 09/26/21 0858 Cetirizine HCl (Cetirizine HCl) 10 Mg Tablet, 10 MG PO DAILY, (Reported) Entered as Reported by: CAROL HAUSER on 09/21/21917 Diphenhydramine HCl (Benadryl Allergy) 25 Mg Tablet, 25-50 MG PO Q6H PRN for ALLERGY SYMPTOMS Prescribed by: VINNIE DICK on 11/18/20 120 Divalproex Sodium (Divalproex Sodium ER) 500 Mg Tab.er.24h, 500 MG PO DAILY Prescribed by: VINNIE DICK on 11/18/20 120 Duloxetine HCl (Duloxetine HCl) 30 Mg Capsule.dr, 30 MG PO DAILY Prescribed by: VINNIE DICK on 11/18/20 120 Furosemide (Furosemide) 20 Mg Tablet, 20 MG PO DAILY Prescribed by: VINNIE DICK on 11/18/201203 Gabapentin (Neurontin) 300 Mg Capsule, 300 MG PO DAILY Prescribed by: VINNIE DICK on 11/18/201203 Gabapentin (Gabapentin) 600 Mg Tablet, 600 MG PO HS, (Reported) Entered as Reported by: CAROL HAUSER on 09/21/21917 Hydrocodone/Acetaminophen (Hydrocodone-Acetamin 5-325 mg) 1 Each Tablet, 1 TAB PO Q6H PRN for PAIN-SEVERE (9-10) Prescribed by: VINNIE DICK on 11/18/20 120 Hydrocodone/Acetaminophen (Hydrocodone-Acetamin 5-325 mg) 1 Each Tablet, 1 TAB PO Q4H PRN for PAIN-MODERATE (5-7) Prescribed by: DIANA MORALES on 09/26/21 0859 Levothyroxine Sodium (Levothyroxine Sodium) 75 Mcg Tablet, 75 MCG PO DAILY Prescribed by: VINNIE DICK on 11/18/20 120 Metoclopramide HCl (Metoclopramide HCl) 10 Mg Tablet, 10 MG PO QIDACHS PRN for NAUSEA/VOMITING-3RD LINE Prescribed by: VINNIE DICK on 11/18/20 120 Metoprolol Succinate (Metoprolol Succinate) 25 Mg Tab.er.24h, 50 MG PO DAILY Prescribed by: VINNIE DICK on 11/18/20 120 Montelukast Sodium (Montelukast Sodium) 10 Mg Tablet, 10 MG PO DAILY, (Reported) Entered as Reported by: CAROL HAUSER on 11/17/21 0918 Nitroglycerin (Nitroglycerin) 0.4 Mg Tab.subl, 0.4 MG PO UD PRN for CHEST PAIN (ANGINA), (Reported) Entered as Reported by: EMELIA JOHNSON on 06/16/20 1110 Pantoprazole Sodium (Pantoprazole Sodium) 40 Mg Tablet.dr, 40 MG PO DAILY Prescribed by: VINNIE DICK on 11/18/20 1204 Potassium Chloride (Potassium Chloride) 20 Meq Tab.er.prt, 20 MEQ PO TID Prescribed by: VINNIE DICK on 11/18/20 1204 Prednisone (Prednisone) 10 Mg Tab, 10 MG PO DAILY Prescribed by: VINNIE DICK on 11/18/20 1204 Sumatriptan Succinate (Sumatriptan Succinate) 100 Mg Tablet, 50 MG PO Q2H PRN for MIGRAINE Prescribed by: VINNIE DICK on 11/18/20 1204 Tramadol HCl (Tramadol HCl) 50 Mg Tablet, 50-100 MG PO Q6H PRN for PAIN-MODERATE (5-7) Prescribed by: VINNIE DICK on 11/18/20 1204 Trazodone HCl (Trazodone HCl) 50 Mg Tablet, 50 MG PO HS Prescribed by: VINNIE DICK on 11/18/20 1204 Review of Systems Review of Systems Constitutional: No chills, No diaphoresis EENTM: No ear discharge, No ear pain Respiratory: No cough, No phlegm, No short of breath Cardiovascular: No chest pain, No edema Gastrointestinal: No abdominal pain, No nausea, No vomiting Genitourinary: see HPI; denies burning, denies discharge, denies dysuria; incontinence : No Musculoskeletal: No back pain, No joint pain All Other Systemes Reviewed Negative Unless Noted: Yes Past Hvoxffx-Egxwxg-Qayhqd Hx Patient Social History Tobacco Use?: No Use of E-Cig and/or Vaping dev: No Substance use?: No Immunizations Up To Date Tetanus Booster (TDap): Less than 5yrs PED Vaccines UTD: Yes First/Initial COVID19 Vaccinat: DECEMBER 2020 Second COVID19 Vaccination Jasson: JANUARY 2021 Third COVID19 Vaccination Date: DECEMBER 2020 Seasonal Allergies Seasonal Allergies: Yes Past Medical History Surgeries: Yes (PORT;HYST/BSO;BOWEL/RECTAL SURGERY;HIATAL HERNIA REPAIR;EGD/C-S TERRA) Abdominal, Adenoidectomy, Bowel Surgery, Gallbladder, Hysterectomy, Joint Replacement, Oophorectomy, Orthopedic, Rectal, Tonsillectomy Respiratory: Yes Asthma, Pneumonia, COPD Cardiac: Yes (PSVT; RBBB/LAFB) Hypertension, Irregular Heartbeat 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: Yes Headaches /Migraines, Neuropathy, Vertigo 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, 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 Genitourinary: No Gastrointestinal: Yes (BOWEL/RECTAL SURGERY;RECTAL PROLAPSE REPAIR;HIATAL HERNIA REPAIR; U.COLITIS) Colitis, Gastroesophageal Reflux, Crohns Disease, Chronic Constipation, Chronic Diarrhea, Hiatal Hernia, Gall Bladder Disease, Irritable Bowel Musculoskeletal: Yes (FALLS, USES WALKER; R TOES 3,4,5 AMPUTATED) Amputee, Osteoporosis, Arthritis, Fibromyalgia, Rheumatoid Arthritis, Chronic Back Pain Endocrine: Yes Hypothyroidsim HEENT: Yes Glaucoma Cancer: Yes Cervical Did You Recieve Any Treatments: Yes What Type of Treatment Did You: Surgical Intervention Psychosocial: Yes (EXTENSIVE PSYCH ISSUES) Anxiety, Depression Integumentary: No Blood Disorders: No Family Medical History Patient reports no known family medical history. No Pertinent Family Hx PSH: -HYSTERECTOMY/BILATERAL SALPINGO-OOPHORECTOMY -BOWEL SURGERY FOR OBSTRUCTION -LAPAROSCOPY -RECTAL PROLAPSE REPAIR/SIGMOID RESECTION -UMBILICAL HERNIA REPAIR -HIATAL HERNIA REPAIR -HEMORRHOIDECTOMY -TONSILLECTOMY/ADENOIDECTOMY -CHOLECYSTECTOMY -PORT LEFT CHEST -RIGHT TOES 3,4,5 AMPUTATED -LEFT SHOULDER REPLACEMENT HAS CHRONIC RECTAL PAIN COMPLAINTS Physical Exam Vital Signs Vital Signs - First Documented 03/27/22 16:35 Temp 36.3 Pulse 76 Resp 24 B/P (MAP) 162/92 (115) Pulse Ox 96 Capillary Refill : Height, Weight, BMI Height: 5'2.00" Weight: 125lbs. 0oz. 56.958673pw; 27.58 BMI Method:Stated General Appearance: WD/WN, no apparent distress HEENT: PERRL/EOMI, normal ENT inspection, TMs normal, pharynx normal Neck: full range of motion, supple, normal inspection Cardiovascular: normal peripheral pulses, regular rate, rhythm Respiratory: no respiratory distress, no accessory muscle use Gastrointestinal: normal bowel sounds, non tender, soft Extremities: normal inspection, normal capillary refill Neurologic/Psychiatric: alert, normal mood/affect, oriented x 3 Progress/Results/Core Measures Suspected Sepsis SIRS Temperature: Pulse: Respiratory Rate: Blood Pressure / Mean: Results/Orders Lab Results Laboratory Tests Test 03/27/22 16:57 Range/Units Urine Color YELLOW Urine Clarity CLEAR Urine pH 6.0 5-9 Urine Specific [place] 1.010 L 1.016-1.022 Urine Protein NEGATIVE NEGATIVE Urine Glucose (UA) NEGATIVE NEGATIVE Urine Ketones NEGATIVE NEGATIVE Urine Nitrite NEGATIVE NEGATIVE Urine Bilirubin NEGATIVE NEGATIVE Urine Urobilinogen 0.2 < = 1.0 MG/DL Urine Leukocyte Esterase NEGATIVE NEGATIVE Urine RBC (Auto) TRACE-I H NEGATIVE Urine RBC RARE /HPF Urine WBC 0-2 /HPF Urine Squamous Epithelial Cells 0-2 /HPF Urine Renal Epithelial Cells NONE /HPF Urine Crystals NONE /LPF Urine Bacteria NEGATIVE /HPF Urine Casts NONE /LPF Urine Mucus NEGATIVE /LPF Urine Culture Indicated NO My Orders Orders - KIRSTIN GARZA Ua Culture If Indicated (03/27/22 16:42) Vital Signs/I&O 03/27/22 16:35 Temp 36.3 Pulse 76 Resp 24 B/P (MAP) 162/92 (115) Pulse Ox 96 Capillary Refill : Progress Note : Time: 16:51 Progress Note We will check a urinalysis looking for UTI. She has aseptic vital signs and nonsurgical abdomen. Perhaps she has pelvic floor prolapse. We will refer her on to urology as appropriate. Departure Impression Primary Impression: Urinary incontinence in female Disposition: 01 HOME, SELF-CARE Condition: Stable Departure-Patient Inst. Decision time for Depature: 17:29 Referrals: EMELIA TAYLOR DO (PCP/Family) Primary Care Physician ROSA ELENA MAY MD Patient Instructions: Urinary Incontinence, Female (DC) Add. Discharge Instructions: Call Dr. May, urology and request follow-up appointment later this week or early next week. Discuss evaluation and management for urinary incontinence. All discharge instructions reviewed with patient and/or family. Voiced understanding. Copy Copies To 1: ROSA ELENA MAY MD, TITUS J March 27, 2022 16:51
[2022-03-27 17:03] LABS: BILIRUBIN,URINE NEGATIVE (NEGATIVE); CLARITY,URINE CLEAR; COLOR,URINE YELLOW; GLUCOSE, URINE (UA) NEGATIVE (NEGATIVE); KETONES,URINE NEGATIVE (NEGATIVE); LEUKOCYTE ESTERASE ,URINE NEGATIVE (NEGATIVE); NITRITE,URINE NEGATIVE (NEGATIVE); PROTEIN,URINE NEGATIVE (NEGATIVE)
[2022-03-27 17:14] LABS: BACTERIA,URINE NEGATIVE /HPF; RBC,URINE RARE /HPF; SQUAMOUS EPITHELIAL CELL,UR 0-2 /HPF; WBC,URINE 0-2 /HPF
[2022-03-27 17:54] VITALS: BP 150/87
== END 2022-03-27 17:57 | disposition home or self-care (01) ==
LOC: EDUNIT# 16:35 → ER 16:36
DX: R32 Unspecified urinary incontinence (principal)
CPT/HCPCS: 81000; 99283

== ENCOUNTER → 2022-06-02 | Outpatient (CLI) | payer MEDICARE, MEDICAID ==
--- NOTE | 2022-06-02 10:30 | Diagnostic Imaging Report ---
Indication: Congestive heart failure PA and lateral chest There is a moderate-sized hiatal hernia. Left subclavian central line tip projects over the SVC. Heart size and pulmonary vascularity are normal. Lungs are clear. There are no effusions or pneumothoraces. IMPRESSION: Hiatal hernia. Dictated by: Dictated on workstation # [id number]
== END ==
LOC: RAD 10:10
PROVIDERS: ATTEND Internal Medicine Cardiovascular Disease
DX: K44.9 Diaphragmatic hernia without obstruction or gangrene (principal); I50.32 Chronic diastolic (congestive) heart failure
CPT/HCPCS: 71046

== ENCOUNTER 2022-06-20 10:07 | Emergency (ER) | payer MEDICARE, MEDICAID ==
[~2022-06-20] VITALS: Ht 157 cm; Wt 77.5 kg
--- NOTE | 2022-06-20 10:39 | ED Cardiac General ---
History of Present Illness General Chief Complaint: Cardiac/General Problems Stated Complaint: FLUID BUILD UP Nursing Triage Note: PT TO RM 7 BY WC SEEN AT OFFICE THIS AM AND SENT TO ED. PT REPORTS SOA, WGT GAIN AND LEG SWELLING. HX OF CHF. PT A&OX4 Source: patient Exam Limitations: no limitations History of Present Illness Date Seen by Provider: Jun 20, 2022 Time Seen by Provider: 10:20 Initial Comments Patient is a 77-year-old female who presents to the emergency department referred from Dr. Slater office chief complaint shortness of breath, swelling and weight gain. Patient has a history of hypertension and likely congestive heart failure. She states she quit taking her Lasix on her own about 3 months ago because she did not like urinating all the time. She states she started taking her Lasix again about 2 weeks ago at 40 mg daily. She states over the last 3 months she has gained about 10 pounds a month. She complains of being short of breath with exertion. She does not normally wear oxygen at home and was noted to have sats in the mid to upper 80s on room air upon arrival. She complains of leg swelling. Difficulty breathing. No fevers or chills. No genevieve st pain. She has been chronically nauseous. Poor appetite. No history visits with a community program assistant. Her primary care is Dr. Taylor through [facility]. She last saw her 1 month ago. All other review of systems reviewed and negative except as stated. 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: No Associated Systoms: Loss of Appetite, Malaise, Shortness of Air, Weakness Allergies and Home Medications Allergies Coded Allergies: Sulfa (Sulfonamide Antibiotics) (Verified Allergy, Unknown, 05/17/19) Patient Home Medication List Home Medication List Reviewed: Yes ALPRAZolam (Xanax Tablet) 0.25 Mg Tablet, 0.25 MG PO TID PRN for ANXIETY Prescribed by: VINNIE DICK on 11/18/20 1204 Acetaminophen (Acetaminophen) 500 Mg Tablet, 1,000 MG PO Q8H PRN for PAIN-MILD (1-4) Prescribed by: VINNIE DICK on 11/18/20 1204 Aripiprazole (Aripiprazole) 10 Mg Tablet, 10 MG PO DAILY Prescribed by: VINNIE DICK on 11/18/20 120 Aspirin (Aspirin EC) 81 Mg Tablet.dr, 81 MG PO DAILY Prescribed by: VINNIE DICK on 11/18/20 120 Aspirin (Aspirin) 81 Mg Tab.chew, 81 MG PO DAILY, (Reported) Entered as Reported by: CAROL HAUSER on 09/21/21 09 Atorvastatin Calcium (Atorvastatin Calcium) 40 Mg Tablet, 40 MG PO DAILY Prescribed by: VINNIE DICK on 11/18/20 120 Cephalexin (Cephalexin) 500 Mg Capsule, 1 CAP PO TID Prescribed by: DIANA MORALES on 09/26/21 0858 Cetirizine HCl (Cetirizine HCl) 10 Mg Tablet, 10 MG PO DAILY, (Reported) Entered as Reported by: CAROL HAUSER on 09/21/21917 Diphenhydramine HCl (Benadryl Allergy) 25 Mg Tablet, 25-50 MG PO Q6H PRN for ALLERGY SYMPTOMS Prescribed by: VINNIE DICK on 11/18/20 120 Divalproex Sodium (Divalproex Sodium ER) 500 Mg Tab.er.24h, 500 MG PO DAILY Prescribed by: VINNIE DICK on 11/18/20 120 Duloxetine HCl (Duloxetine HCl) 30 Mg Capsule.dr, 30 MG PO DAILY Prescribed by: VINNIE DICK on 11/18/20 120 Furosemide (Furosemide) 20 Mg Tablet, 20 MG PO DAILY Prescribed by: VINNIE DICK on 11/18/20 120 Gabapentin (Neurontin) 300 Mg Capsule, 300 MG PO DAILY Prescribed by: VINNIE DICK on 11/18/20 120 Gabapentin (Gabapentin) 600 Mg Tablet, 600 MG PO HS, (Reported) Entered as Reported by: CAROL HAUSER on 09/21/21917 Hydrocodone/Acetaminophen (Hydrocodone-Acetamin 5-325 mg) 1 Each Tablet, 1 TAB P O Q6H PRN for PAIN-SEVERE (9-10) Prescribed by: VINNIE DICK on 11/18/20 120 Hydrocodone/Acetaminophen (Hydrocodone-Acetamin 5-325 mg) 1 Each Tablet, 1 TAB PO Q4H PRN for PAIN-MODERATE (5-7) Prescribed by: DIANA MORALES on 09/26/21 0859 Levothyroxine Sodium (Levothyroxine Sodium) 75 Mcg Tablet, 75 MCG PO DAILY Prescribed by: VINNIE DICK on 11/18/20 1204 Metoclopramide HCl (Metoclopramide HCl) 10 Mg Tablet, 10 MG PO QIDACHS PRN for NAUSEA/VOMITING-3RD LINE Prescribed by: VINNIE DICK on 11/18/20 1204 Metoprolol Succinate (Metoprolol Succinate) 25 Mg Tab.er.24h, 50 MG PO DAILY Prescribed by: VINNIE DICK on 11/18/20 1204 Montelukast Sodium (Montelukast Sodium) 10 Mg Tablet, 10 MG PO DAILY, (Reported) Entered as Reported by: CAROL HAUSER on 09/21/21 0918 Nitroglycerin (Nitroglycerin) 0.4 Mg Tab.subl, 0.4 MG PO UD PRN for CHEST PAIN (ANGINA), (Reported) Entered as Reported by: EMELIA JOHNSON on 06/16/20 1110 Pantoprazole Sodium (Pantoprazole Sodium) 40 Mg Tablet.dr, 40 MG PO DAILY Prescribed by: VINNIE DICK on 11/18/20 1204 Potassium Chloride (Potassium Chloride) 20 Meq Tab.er.prt, 20 MEQ PO TID Prescribed by: VINNIE DICK on 11/18/20 120 Prednisone (Prednisone) 10 Mg Tab, 10 MG PO DAILY Prescribed by: VINNIE DICK on 11/18/20 1204 Sumatriptan Succinate (Sumatriptan Succinate) 100 Mg Tablet, 50 MG PO Q2H PRN for MIGRAINE Prescribed by: VINNIE DICK on 11/18/20 120 Tramadol HCl (Tramadol HCl) 50 Mg Tablet, 50-100 MG PO Q6H PRN for PAIN-MODERATE (5-7) Prescribed by: VINNIE DICK on 11/18/20 120 Trazodone HCl (Trazodone HCl) 50 Mg Tablet, 50 MG PO HS Prescribed by: VINNIE DICK on 11/18/20 120 Review of Systems Review of Systems Constitutional: see HPI, malaise, weakness EENTM: No Symptoms Reported Respiratory: Shortness of Air, SOA With Exertion, SOA at Rest Cardiovascular: No Symptoms Reported Gastrointestinal: Poor Appetite Genitourinary: No Symptoms Reported Musculoskeletal: no symptoms reported Skin: no symptoms reported Psychiatric/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: No Symptoms Reported All Other Systems Reviewed Negative Unless Noted: Yes Past Gmljney-Wjctqj-Jbztof Hx Immunizations Up To Date Tetanus Booster (TDap): Less than 5yrs PED Vaccines UTD: Yes First/Initial COVID19 Vaccinat: DECEMBER 2020 Second COVID19 Vaccination Jasson: JANUARY 2021 Third COVID19 Vaccination Date: DECEMBER 2020 Seasonal Allergies Seasonal Allergies: Yes Past Medical History Surgeries: Yes (PORT;HYST/BSO;BOWEL/RECTAL SURGERY;HIATAL HERNIA REPAIR;EGD/C- SCOP[facility]) Abdominal, Adenoidectomy, Bowel Surgery, Gallbladder, Hysterectomy, Joint Replacement, Oophorectomy, Orthopedic, Rectal, Tonsillectomy Respiratory: Yes Asthma, Pneumonia, COPD Cardiac: Yes (PSVT; RBBB/LAFB) Hypertension, Irregular Heartbeat 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: Yes Headaches /Migraines, Neuropathy, Vertigo 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, 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 Genitourinary: No Gastrointestinal: Yes (BOWEL/RECTAL SURGERY;RECTAL PROLAPSE REPAIR;HIATAL HERNIA REPAIR; U.COLITIS) Colitis, Gastroesophageal Reflux, Crohns Disease, Chronic Constipation, Chronic Diarrhea, Hiatal Hernia, Gall Bladder Disease, Irritable Bowel Musculoskeletal: Yes (FALLS, USES WALKER; R TOES 3,4,5 AMPUTATED) Amputee, Osteoporosis, Arthritis, Fibromyalgia, Rheumatoid Arthritis, Chronic Back Pain Endocrine: Yes Hypothyroidsim HEENT: Yes Glaucoma Cancer: Yes Cervical Did You Recieve Any Treatments: Yes What Type of Treatment Did You: Surgical Intervention Psychosocial: Yes (EXTENSIVE PSYCH ISSUES) Anxiety, Depression Integumentary: No Blood Disorders: No Family Medical History Patient reports no known family medical history. No Pertinent Family Hx PSH: -HYSTERECTOMY/BILATERAL SALPINGO-OOPHORECTOMY -BOWEL SURGERY FOR OBSTRUCTION -LAPAROSCOPY -RECTAL PROLAPSE REPAIR/SIGMOID RESECTION -UMBILICAL HERNIA REPAIR -HIATAL HERNIA REPAIR -HEMORRHOIDECTOMY -TONSILLECTOMY/ADENOIDECTOMY -CHOLECYSTECTOMY -PORT LEFT CHEST -RIGHT TOES 3,4,5 AMPUTATED -LEFT SHOULDER REPLACEMENT HAS CHRONIC RECTAL PAIN COMPLAINTS Physical Exam Vital Signs Vital Signs - First Documented 06/20/22 10:09 Temp 35.7 Pulse 74 Resp 18 B/P (MAP) 126/56 (79) Pulse Ox 94 O2 Delivery Room Air Capillary Refill : Less Than 3 Seconds Height, Weight, BMI Height: 5'2.00" Weight: 125lbs. 0oz. 56.476413xw; 31.00 BMI Method:Stated General Appearance: No Apparent Distress, WD/WN HEENT: PERRL/EOMI Neck: Normal Inspection Respiratory: Lungs Clear, No Accessory Muscle Use, No Respiratory Distress, Other (Diminished breath sounds throughout, no rales, crackles or rhonchi. No wheezing.) Cardiovascular: Regular Rate, Rhythm, Normal Peripheral Pulses Gastrointestinal: Non Tender, Soft Extremity: Normal Range of Motion, Pedal Edema (1-2+ pedal edema bilaterally) Neurologic/Psychiatric: Alert, Oriented x3, No Motor/Sensory Deficits, Normal Mood/Affect, pony edger II-XII Norm as Tested Skin: Warm/Dry, Pallor Progress/Results/Core Measures Results/Orders Lab Results Laboratory Tests Test 06/20/22 10:28 06/20/22 11:00 06/20/22 11:56 Range/Units White Blood Count 6.6 4.3-11.0 10^3/uL Red Blood Count 3.81 3.80-5.11 10^6/uL Hemoglobin 10.3 L 11.5-16.0 g/dL Hematocrit 34 L 35-52 % Mean Corpuscular Volume 88 80-99 fL Mean Corpuscular Hemoglobin 27 25-34 pg Mean Corpuscular Hemoglobin Concent 31 L 32-36 g/dL Red Cell Distribution Width 18.0 H 10.0-14.5 % Platelet Count 202 130-400 10^3/uL Mean Platelet Volume 10.2 9.0-12.2 fL Immature Granulocyte % (Auto) 0 % Neutrophils (%) (Auto) 54 42-75 % Lymphocytes (%) (Auto) 25 12-44 % Monocytes (%) (Auto) 13 H 0-12 % Eosinophils (%) (Auto) 8 0-10 % Basophils (%) (Auto) 0 0-10 % Neutrophils # (Auto) 3.6 1.8-7.8 10^3/uL Lymphocytes # (Auto) 1.6 1.0-4.0 10^3/uL Monocytes # (Auto) 0.8 0.0-1.0 10^3/uL Eosinophils # (Auto) 0.5 H 0.0-0.3 10^3/uL Basophils # (Auto) 0.0 0.0-0.1 10^3/uL Immature Granulocyte # (Auto) 0.0 0.0-0.1 10^3/uL Sodium Level 144 135-145 MMOL/L Potassium Level 3.8 3.6-5.0 MMOL/L Chloride Level 101 98-107 MMOL/L Carbon Dioxide Level 33 H 21-32 MMOL/L Anion Gap 10 5-14 MMOL/L Blood Urea Nitrogen 18 7-18 MG/DL Creatinine 1.57 H 0.60-1.30 MG/DL Estimat Glomerular Filtration Rate 34 BUN/Creatinine Ratio 11 Glucose Level 115 H 70-105 MG/DL Calcium Level 9.1 8.5-10.1 MG/DL Corrected Calcium 9.5 8.5-10.1 MG/DL Total Bilirubin 0.5 0.1-1.0 MG/DL Aspartate Amino Transf (AST/SGOT) 12 5-34 U/L Alanine Aminotransferase (ALT/SGPT) 11 0-55 U/L Alkaline Phosphatase 86 40-136 U/L B-Type Natriuretic Peptide 46.4 <100.0 PG/ML Total Protein 6.1 L 6.4-8.2 GM/DL Albumin 3.5 3.2-4.5 GM/DL Urine Color YELLOW Urine Clarity CLEAR Urine pH 6.5 5-9 Urine Specific [place] 1.015 L 1.016-1.022 Urine Protein NEGATIVE NEGATIVE Urine Glucose (UA) NEGATIVE NEGATIVE Urine Ketones NEGATIVE NEGATIVE Urine Nitrite NEGATIVE NEGATIVE Urine Bilirubin NEGATIVE NEGATIVE Urine Urobilinogen 2.0 < = 1.0 MG/DL Urine Leukocyte Esterase TRACE H NEGATIVE Urine RBC (Auto) NEGATIVE NEGATIVE Urine RBC NONE /HPF Urine WBC 0-2 /HPF Urine Squamous Epithelial Cells 10-25 H /HPF Urine Crystals NONE /LPF Urine Bacteria TRACE /HPF Urine Casts NONE /LPF Urine Mucus NEGATIVE /LPF Urine Culture Indicated NO SARS-CoV-2 RNA (RT-PCR) Not Detected Not Detecte My Orders Orders - KAITLIN DE LUNA MD Ed Iv/Invasive Line Start (06/20/22 10:18) Ed Iv/Invasive Line Start (06/20/22 10:39) Cbc With Automated Diff (06/20/22 10:39) Comprehensive Metabolic Panel (06/20/22 10:39) Bnp Shiela (06/20/22 10:39) Ekg Tracing (06/20/22 10:39) Chest 1 View, Ap/Pa Only (06/20/22 10:39) Ua Culture If Indicated (06/20/22 10:39) Covid 19 Inhouse Test (06/20/22 11:46) Isolation Central Supply Req (06/20/22 11:46) Vital Signs/I&O 06/20/22 10:09 Temp 35.7 Pulse 74 Resp 18 B/P (MAP) 126/56 (79) Pulse Ox 94 O2 Delivery Room Air Blood Pressure Mean: 79 Progress Progress Note : Time: 13:03 Progress Note I spoke with Emelia Taylor DO, the physician for Nanette at [facility]. She is comfortable with sending her home on her daily Lasix at 40 mg. I rechecked her just now the patient has been off oxygen and is satting 96%. No increased work of breathing or wheezing. Her BNP is 46 - not overly elevated, CXR shows some "mild" pulmonary edema. Patient is comfortable with the plan of care. She has a caregiver who will be with her 7 days a week. I communicated return precautions to Nanette. She verbalized understanding. All questions are sought and answered. Dr. Taylor said she will see the patient within the week. Initial ECG Impression Date: Jun 20, 2022 Initial ECG Impression Time: 10:54 Initial ECG Rate: 71 Initial ECG Rhythm: Normal Sinus Initial ECG Intervals MN interval 184 QRS 137 QTC 436 Comment Right bundle branch block, no ST segment elevation or depression, no active Diagnostic Imaging Diagonstic Imaging: Xray Plain Films/CT/US/NM/MRI: chest Comments [facility], [place] NAME: NANETTE BLISS [facility] REC#: [id number] PT STATUS: REG ER : 1945 PHYSICIAN: KAITLIN DE LUNA MD ADMIT DATE: 06/20/22/ER Draft Date of Exam:06/20/22 CHEST 1 VIEW, AP/PA ONLY EXAMINATION: Chest, one view. HISTORY: Short of breath. COMPARISON: 06/16/2020. FINDINGS: There is mild edema. No pneumonia. No pleural effusion or pneumothorax. Heart size is normal. A linear fragment projecting over the chest may represent a retained pacemaker wire, unchanged. IMPRESSION: 1. Mild pulmonary edema. Dictated on workstation # [id number] Dict: 06/20/22 1146 Trans: 06/20/22 1149 [id number] Interpreted by: NINO CACERES MD Electronically signed by: Departure Impression Primary Impression: Peripheral edema Additional Impression: Chronic kidney disease Qualified Codes: N18.9 - Chronic kidney disease, unspecified Disposition: HOME, SELF-CARE Condition: Improved Departure-Patient Inst. Decision time for Depature: 13:06 Referrals: EMELIA TAYLOR DO (PCP/Family) Primary Care Physician Patient Instructions: Dependent Edema (DC) Add. Discharge Instructions: Take your Lasix 40mg every morning as prescribed. Please call Dr Taylor's office and have a follow up appointment this week to be rechecked. Try and avoid extra salt in your diet. Elevate your legs when sitting, laying down. Return to the Emergency Department for any new, concerning or emergent concerning symptoms. KAITLIN DE LUNA MD Jun 20, 2022 10:39
[2022-06-20 10:52] LABS: BASOPHILS % (AUTO) 0 % (0-10); EOSINOPHILS # (AUTO) 0.5 10^3/uL (0.0-0.3); EOSINOPHILS % (AUTO) 8 % (0-10); HEMATOCRIT 34 % (35-52); HEMOGLOBIN 10.3 g/dL (11.5-16.0); LYMPHOCYTES # (AUTO) 1.6 10^3/uL (1.0-4.0); LYMPHOCYTES % (AUTO) 25 % (12-44); MEAN CORPUSCULAR HEMOGLOBIN 27 pg (25-34); MEAN CORPUSCULAR HGB CONC 31 g/dL (32-36); MEAN CORPUSCULAR VOLUME 88 fL (80-99); MEAN PLATELET VOLUME 10.2 fL (9.0-12.2); MONOCYTES # (AUTO) 0.8 10^3/uL (0.0-1.0); MONOCYTES % (AUTO) 13 % (0-12); NEUTROPHILS # (AUTO) 3.6 10^3/uL (1.8-7.8); NEUTROPHILS % (AUTO) 54 % (42-75); PLATELET COUNT 202 10^3/uL (130-400); WHITE BLOOD COUNT 6.6 10^3/uL (4.3-11.0)
[2022-06-20 10:54] LABS: ALBUMIN 3.5 GM/DL (3.2-4.5)
[2022-06-20 10:55] LABS: POTASSIUM 3.8 MMOL/L (3.6-5.0)
[2022-06-20 10:56] LABS: CALCIUM 9.1 MG/DL (8.5-10.1)
[2022-06-20 10:57] LABS: TOTAL PROTEIN 6.1 GM/DL (6.4-8.2)
[2022-06-20 10:59] LABS: BILIRUBIN,TOTAL 0.5 MG/DL (0.1-1.0)
[2022-06-20 11:01] LABS: CREATININE SERUM 1.57 MG/DL (0.60-1.30)
[2022-06-20 11:09] LABS: BILIRUBIN,URINE NEGATIVE (NEGATIVE); CLARITY,URINE CLEAR; COLOR,URINE YELLOW; GLUCOSE, URINE (UA) NEGATIVE (NEGATIVE); KETONES,URINE NEGATIVE (NEGATIVE); LEUKOCYTE ESTERASE ,URINE TRACE (NEGATIVE); NITRITE,URINE NEGATIVE (NEGATIVE); PH,URINE 6.5 (5-9); PROTEIN,URINE NEGATIVE (NEGATIVE)
[2022-06-20 11:25] LABS: BACTERIA,URINE TRACE /HPF; WBC,URINE 0-2 /HPF
--- NOTE | 2022-06-20 11:49 | Diagnostic Imaging Report ---
EXAMINATION: Chest, one view. HISTORY: Short of breath. COMPARISON: 06/16/2020. FINDINGS: There is mild edema. No pneumonia. No pleural effusion or pneumothorax. Heart size is normal. A linear fragment projecting over the chest may represent a retained pacemaker wire, unchanged. IMPRESSION: 1. Mild pulmonary edema. Dictated by: Dictated on workstation # [id number]
[2022-06-20] MEDS ORDERED: SUCRALFATE 1 GM (CARAFATE) TAB PO ONE (13:00)
[2022-06-20] MEDS ORDERED: ANTACID SUSP 30 ML UDC (MYLANTA) PO ONE (13:00)
[2022-06-20] MEDS ORDERED: ONDANSETRON 4 MG/2 ML (SDV) Z0FRAN IVP ONE (13:00)
[2022-06-20] MEDS ORDERED: LIDOCAINE 2% VISCOUS 15 ML UDC PO ONE (13:00)
[2022-06-20 13:24] VITALS: BP 114/69
== END 2022-06-20 13:24 | disposition home or self-care (01) ==
LOC: EDUNIT# 10:07 → ER 10:08
DX: I12.9 Hypertensive chronic kidney disease with stage 1 through stage 4 chronic kidney disease, or unspecified chronic kidney disease (principal); N18.9 Chronic kidney disease, unspecified; R60.0 Localized edema; Z20.822 Contact with and (suspected) exposure to COVID-19
CPT/HCPCS: 36415; 71045; 80053; 81000; 83880; 85025; 87636; 93005

== ENCOUNTER 2022-11-13 12:33 | Outpatient (CLI) | payer MEDICARE, MEDICAID | END 2022-11-13 13:00 | LOC: SLEEP 12:33 | PROVIDERS: ATTEND Internal Medicine Cardiovascular Disease | DX: G47.33 Obstructive sleep apnea (adult) (pediatric) (principal); G47.10 Hypersomnia, unspecified; I10 Essential (primary) hypertension; R06.83 Snoring | CPT/HCPCS: G0399 ==

== ENCOUNTER 2023-06-08 21:35 | Emergency (ER) | payer MEDICARE, MEDICAID ==
[~2023-06-08] VITALS: Ht 160 cm; Wt 75.0 kg
[~2023-06-08 21:35] MED LIST changes: +POTA-330 PO; -POTA-51 PO
[2023-06-08 21:55] VITALS: BP 124/95
[2023-06-08] MEDS ORDERED: LACTATED RINGERS 1,000 ML IV ONE (22:00)
[2023-06-08] MEDS ORDERED: ONDANSETRON 4 MG/2 ML (SDV) Z0FRAN IVP ONE (22:00)
[2023-06-08] MEDS ORDERED: CEFEPIME INJECTION 1,000 MG in NS (IVPB) 50 ML 50 ML IV ONE (22:00)
--- NOTE | 2023-06-08 22:07 | ED General ---
General Chief Complaint: Fever-Adult/Adol Stated Complaint: N/V HEADACHE FEVER CHILLS Nursing Triage Note: Pt presents with c/o n/v all day today, stayed in bed, hasn't taken any medication. Symptoms started yesterday, worsened today. 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 SHE HAS HAD: -NAUSEA AND VOMITING. NOW DRY HEAVING. CANNOT KEEP MEDICATIONS DOWN -SUBJECTIVE FEVER AND CHILLS -GENERALIZED WEAKNESS--HAS NOT BEEN ABLE TO GET OUT OF BED -HEADACHE -BODY ACHES NO COUGH OR SHORTNESS OF BREATH NO CHEST PAIN NO PARESTHESIAS OR MOTOR DEFICITS NO DIARRHEA NO ABDOMINAL PAIN NO URINARY SYMPTOMS. PT HAS HAD COVID VACCINE X 1. NO FLU VACCINE. PCP: DR. TAYLOR AT [facility] Allergies and Home Medications Allergies Coded Allergies: Sulfa (Sulfonamide Antibiotics) (Verified Allergy, Unknown, 05/17/19) Patient Home Medication List Home Medication List Reviewed: Yes ALPRAZolam (Xanax Tablet) 0.25 Mg Tablet, 0.25 MG PO TID PRN for ANXIETY Prescribed by: VINNIE DICK on 11/18/20 1204 Acetaminophen (Acetaminophen) 500 Mg Tablet, 1,000 MG PO Q8H PRN for PAIN-MILD (1-4) Prescribed by: VINNIE DICK on 11/18/20 1204 Aripiprazole (Aripiprazole) 10 Mg Tablet, 10 MG PO DAILY Prescribed by: VINNIE DICK on 11/18/20 1204 Aspirin (Aspirin EC) 81 Mg Tablet.dr, 81 MG PO DAILY Prescribed by: VINNIE DICK on 11/18/20 1204 Aspirin (Aspirin) 81 Mg Tab.chew, 81 MG PO DAILY, (Reported) Entered as Reported by: CAROL HAUSER on 09/21/21 0918 Atorvastatin Calcium (Atorvastatin Calcium) 40 Mg Tablet, 40 MG PO DAILY Prescribed by: VINNIE DICK on 11/18/20 1204 Cephalexin (Cephalexin) 500 Mg Capsule, 1 CAP PO TID Prescribed by: DIANA MORALES on 09/26/21 0858 Cetirizine HCl (Cetirizine HCl) 10 Mg Tablet, 10 MG PO DAILY, (Reported) Entered as Reported by: CAROL HAUSER on 09/21/21 0918 Diphenhydramine HCl (Benadryl Allergy) 25 Mg Tablet, 25-50 MG PO Q6H PRN for ALLERGY SYMPTOMS Prescribed by: VINNIE DICK on 11/18/20 1204 Divalproex Sodium (Divalproex Sodium ER) 500 Mg Tab.er.24h, 500 MG PO DAILY Prescribed by: VINNIE DICK on 11/18/20 1204 Duloxetine HCl (Duloxetine HCl) 30 Mg Capsule.dr, 30 MG PO DAILY Prescribed by: VINNIE DICK on 11/18/20 1204 Furosemide (Furosemide) 20 Mg Tablet, 20 MG PO DAILY Prescribed by: VINNIE DICK on 11/18/20 120 Gabapentin (Neurontin) 300 Mg Capsule, 300 MG PO DAILY Prescribed by: VINNIE DICK on 11/18/20 120 Gabapentin (Gabapentin) 600 Mg Tablet, 600 MG PO HS, (Reported) Entered as Reported by: CAROL HAUSER on 09/21/2118 Hydrocodone/Acetaminophen (Hydrocodone-Acetamin 5-325 mg) 1 Each Tablet, 1 TAB PO Q6H PRN for PAIN-SEVERE (9-10) Prescribed by: VINNIE DICK on 11/18/20 120 Hydrocodone/Acetaminophen (Hydrocodone-Acetamin 5-325 mg) 1 Each Tablet, 1 TAB PO Q4H PRN for PAIN-MODERATE (5-7) Prescribed by: DIANA MORALES on 09/26/21 0859 Levothyroxine Sodium (Levothyroxine Sodium) 75 Mcg Tablet, 75 MCG PO DAILY Prescribed by: VINNIE DICK on 11/18/20 1204 Metoclopramide HCl (Metoclopramide HCl) 10 Mg Tablet, 10 MG PO QIDACHS PRN for NAUSEA/VOMITING-3RD LINE Prescribed by: VINNIE DICK on 11/18/20 1204 Metoprolol Succinate (Metoprolol Succinate) 25 Mg Tab.er.24h, 50 MG PO DAILY Prescribed by: VINNIE DICK on 11/18/20 1204 Molnupiravir (Molnupiravir (Eua)) 200 Mg Capsule, 800 MG PO BID [place] [id number] Montelukast Sodium (Montelukast Sodium) 10 Mg Tablet, 10 MG PO DAILY, (Reported) Entered as Reported by: CAROL HAUSER on 09/21/21 0918 Nitroglycerin (Nitroglycerin) 0.4 Mg Tab.subl, 0.4 MG PO UD PRN for CHEST PAIN (ANGINA), (Reported) Entered as Reported by: EMELIA JOHNSON on 06/16/20 1110 Ondansetron (Ondansetron Odt) 4 Mg Tab.rapdis, 4 MG PO Q4H Prescribed by: REGLA LAWRENCE on 06/08/232235 Pantoprazole Sodium (Pantoprazole Sodium) 40 Mg Tablet.dr, 40 MG PO DAILY Prescribed by: VINNIE DICK on 11/18/20 120 Potassium Chloride (Potassium Chloride) 20 Meq Tab.er.prt, 20 MEQ PO TID Prescribed by: VINNIE DICK on 11/18/20 120 Prednisone (Prednisone) 10 Mg Tab, 10 MG PO DAILY Prescribed by: VINNIE DICK on 11/18/20 1204 Sumatriptan Succinate (Sumatriptan Succinate) 100 Mg Tablet, 50 MG PO Q2H PRN for MIGRAINE Prescribed by: VINNIE DICK on 11/18/20 1204 Tramadol HCl (Tramadol HCl) 50 Mg Tablet, 50-100 MG PO Q6H PRN for PAIN-MODERATE (5-7) Prescribed by: VINNIE DICK on 11/18/20 1204 Trazodone HCl (Trazodone HCl) 50 Mg Tablet, 50 MG PO HS Prescribed by: VINNIE DICK on 11/18/20 1204 Review of Systems Review of Systems Constitutional: see HPI, chills, fever, malaise, weakness EENTM: no symptoms reported Respiratory: no symptoms reported Cardiovascular: no symptoms reported Gastrointestinal: see HPI; No abdominal pain, No diarrhea; nausea, vomiting Genitourinary: no symptoms reported Musculoskeletal: see HPI Skin: no symptoms reported Psychiatric/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: See HPI, Headache Hematologic/Lymphatic: No Symptoms Reported Immunological/Allergic: no symptoms reported Past Trrvlzh-Pjuuea-Yppxbc Hx Immunizations Up To Date Tetanus Booster (TDap): Less than 5yrs PED Vaccines UTD: Yes First/Initial COVID19 Vaccinat: DECEMBER 2020 Second COVID19 Vaccination Jasson: JANUARY 2021 Third COVID19 Vaccination Date: DECEMBER 2020 Seasonal Allergies Seasonal Allergies: Yes Past Medical History Surgery/Hospitalization HX: CHF, RA, Surgeries: Yes (PORT;HYST/BSO;BOWEL/RECTAL SURGERY;HIATAL HERNIA REPAIR;EGD/C- SCOPES) Abdominal, Adenoidectomy, Bowel Surgery, Gallbladder, Hysterectomy, Joint Replacement, Oophorectomy, Orthopedic, Rectal, Tonsillectomy Respiratory: Yes Asthma, Pneumonia, COPD Cardiac: Yes (PSVT; RBBB/LAFB; CHF) Hypertension, Irregular Heartbeat 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: Yes Headaches /Migraines, Neuropathy, Vertigo [employer]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, Menopausal Genitourinary: No Gastrointestinal: Yes (BOWEL/RECTAL SURGERY;RECTAL PROLAPSE REPAIR;HIATAL HERNIA REPAIR; U.COLITIS) Colitis, Gastroesophageal Reflux, Crohns Disease, Chronic Constipation, Chronic Diarrhea, Hiatal Hernia, Gall Bladder Disease, Irritable Bowel Musculoskeletal: Yes (FALLS, USES WALKER; R TOES 3,4,5 AMPUTATED) Amputee, Osteoporosis, Arthritis, Fibromyalgia, Rheumatoid Arthritis, Chronic Back Pain Endocrine: Yes Hypothyroidsim HEENT: Yes Glaucoma Cancer: Yes Cervical Did You Recieve Any Treatments: Yes What Type of Treatment Did You: Surgical Intervention Psychosocial: Yes (EXTENSIVE PSYCH ISSUES) Anxiety, Depression Integumentary: No Blood Disorders: No Family Medical History Patient reports no known family medical history. No Pertinent Family Hx PSH: -HYSTERECTOMY/BILATERAL SALPINGO-OOPHORECTOMY -BOWEL SURGERY FOR OBSTRUCTION -LAPAROSCOPY -RECTAL PROLAPSE REPAIR/SIGMOID RESECTION -UMBILICAL HERNIA REPAIR -HIATAL HERNIA REPAIR -HEMORRHOIDECTOMY -TONSILLECTOMY/ADENOIDECTOMY -CHOLECYSTECTOMY -PORT LEFT CHEST -RIGHT TOES 3,4,5 AMPUTATED -LEFT SHOULDER REPLACEMENT HAS CHRONIC RECTAL PAIN COMPLAINTS Physical Exam Vital Signs Vital Signs - First Documented 06/08/23 06/08/23 21:55 22:30 Temp 37.7 Pulse 105 Resp 16 B/P (MAP) 124/95 (105) Pulse Ox 92 O2 Delivery Nasal Cannula O2 Flow Rate 2.00 Capillary Refill : Height, Weight, BMI Height: 5'2.00" Weight: 125lbs. 0oz. 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 as Tested Skin: Normal Color, Warm/Dry Focused Exam Sepsis Stage: Ruled Out Reason for ruling out sepsis: DOES NOT MEET CRITERIA Possible Source: Unknown Lactate Level 06/08/23 22:08: Lactic Acid Level 1.23 Time of Focused Exam: 23:00 Respiratory: Normal Breath Sounds, No Accessory Muscle Use, No Respiratory Distress Cardiovascular: Regular Rate, Rhythm, No Murmur Capillary Refill: Less Than 3 Seconds Skin: normal color, warm/dry Lactic Acid Level Laboratory Tests Test 06/08/23 22:08 Lactic Acid Level 1.23 MMOL/L (0.50-2.00) Within 3hrs of presentation: Admin fluids, Admin ABX, Blood cultures prior to ABX's, Focus exam, Lactate level Progress/Results/Core Measures Suspected Sepsis SIRS Temperature: Pulse: 105 Respiratory Rate: 16 Laboratory Tests 06/08/23 22:08: White Blood Count 7.0 Blood Pressure 124 /95 Mean: 105 06/08/23 22:08: Lactic Acid Level 1.23 Laboratory Tests 06/08/23 22:08: Creatinine 1.07, INR Comment 1.2, Platelet Count 197, Total Bilirubin 0.5 Results/Orders Lab Results Laboratory Tests Test 06/08/23 21:56 06/08/23 22:08 06/08/23 22:55 Range/Units Influenza Type A (RT-PCR) Not Detected Not Detecte Influenza Type B (RT-PCR) Not Detected Not Detecte SARS-CoV-2 RNA (RT-PCR) Detected H Not Detecte White Blood Count 7.0 4.3-11.0 10^3/uL Red Blood Count 4.10 3.80-5.11 10^6/uL Hemoglobin 12.3 11.5-16.0 g/dL Hematocrit 39 35-52 % Mean Corpuscular Volume 94 80-99 fL Mean Corpuscular Hemoglobin 30 25-34 pg Mean Corpuscular Hemoglobin Concent 32 32-36 g/dL Red Cell Distribution Width 15.1 H 10.0-14.5 % Platelet Count 197 130-400 10^3/uL Mean Platelet Volume 10.0 9.0-12.2 fL Immature Granulocyte % (Auto) 0 % Neutrophils (%) (Auto) 75 42-75 % Lymphocytes (%) (Auto) 9 L 12-44 % Monocytes (%) (Auto) 15 H 0-12 % Eosinophils (%) (Auto) 0 0-10 % Basophils (%) (Auto) 0 0-10 % Neutrophils # (Auto) 5.3 1.8-7.8 10^3/uL Lymphocytes # (Auto) 0.7 L 1.0-4.0 10^3/uL Monocytes # (Auto) 1.1 H 0.0-1.0 10^3/uL Eosinophils # (Auto) 0.0 0.0-0.3 10^3/uL Basophils # (Auto) 0.0 0.0-0.1 10^3/uL Immature Granulocyte # (Auto) 0.0 0.0-0.1 10^3/uL Prothrombin Time 15.6 H 12.2-14.7 SEC INR Comment 1.2 0.8-1.4 Activated Partial Thromboplast Time 33 24-35 SEC Sodium Level 140 135-145 MMOL/L Potassium Level 3.5 L 3.6-5.0 MMOL/L Chloride Level 104 98-107 MMOL/L Carbon Dioxide Level 23 21-32 MMOL/L Anion Gap 13 5-14 MMOL/L Blood Urea Nitrogen 10 7-18 MG/DL Creatinine 1.07 0.60-1.30 MG/DL Estimat Glomerular Filtration Rate 54 BUN/Creatinine Ratio 9 Glucose Level 118 H 70-105 MG/DL Lactic Acid Level 1.23 0.50-2.00 MMOL/L Calcium Level 9.0 8.5-10.1 MG/DL Corrected Calcium 9.2 8.5-10.1 MG/DL Magnesium Level 1.9 1.6-2.4 MG/DL Total Bilirubin 0.5 0.1-1.0 MG/DL Aspartate Amino Transf (AST/SGOT) 19 5-34 U/L Alanine Aminotransferase (ALT/SGPT) 10 0-55 U/L Alkaline Phosphatase 87 40-136 U/L Total Protein 6.7 6.4-8.2 GM/DL Albumin 3.7 3.2-4.5 GM/DL Amylase Level 43 25-125 U/L Lipase 8 8-78 U/L Urine Color YELLOW Urine Clarity CLEAR Urine pH 8.0 5-9 Urine Specific [place] 1.005 L 1.016-1.022 Urine Protein TRACE H NEGATIVE Urine Glucose (UA) NEGATIVE NEGATIVE Urine Ketones 3+ H NEGATIVE Urine Nitrite NEGATIVE NEGATIVE Urine Bilirubin NEGATIVE NEGATIVE Urine Urobilinogen 0.2 < = 1.0 MG/DL Urine Leukocyte Esterase NEGATIVE NEGATIVE Urine RBC (Auto) NEGATIVE NEGATIVE Urine RBC NONE /HPF Urine WBC 2-5 /HPF Urine Squamous Epithelial Cells RARE /HPF Urine Crystals NONE /LPF Urine Bacteria TRACE /HPF Urine Casts NONE /LPF Urine Mucus NEGATIVE /LPF Urine Culture Indicated NO Micro Results Microbiology 06/08/23 Blood Culture - Preliminary, Resulted No growth 06/08/23 Blood Culture - Preliminary, Resulted No growth My Orders Orders - REGLA LAWRENCE DO Ed Iv/Invasive Line Start (06/08/23 21:53) Ekg Tracing (06/08/23 21:53) Monitor-Rhythm Ecg Trace Only (06/08/23 21:53) Amylase (06/08/23 21:53) Cbc With Automated Diff (06/08/23 21:53) Comprehensive Metabolic Panel (06/08/23 21:53) Lipase (06/08/23 21:53) Magnesium (06/08/23 21:53) Ua Culture If Indicated (06/08/23 21:53) Covid 19 Inhouse Test (06/08/23 21:53) Ondansetron Injection (Zofran Injectio (06/08/23 22:00) Ed Iv/Invasive Line Start (06/08/23 21:53) Lactated Ringers (Lr 1000 Ml Iv Solution (06/08/23 22:00) Blood Culture (06/08/23 21:53) Sputum Culture (06/08/23 21:53) Urine Culture (06/08/23 21:53) Protime With Inr (06/08/23 21:53) Partial Thromboplastin Time (06/08/23 21:53) Chest 1 View, Ap/Pa Only (06/08/23 21:53) Ed Iv/Invasive Line Start (8/4/23 21:53) Ed Iv/Invasive Line Start (06/08/23 21:53) Vital Signs Adult Sepsis Patie Q15M (06/08/23 21:53) O2 (06/08/23 21:53) Remove Rings In Anticipation O (06/08/23 21:53) Lactic Acid Analyzer (06/08/23 21:53) Cefepime Injection (Cefepime Injection) (06/08/23 22:00) Influenza A And B By Pcr (06/08/23 21:53) Rx-Molnupiravir (Eua) (Rx-Molnupiravir ( (06/09/23 09:00) Ondansetron Injection (Zofran Injectio (06/08/23 23:58) Rx-Ondansetron Po (Rx-Zofran Po) (06/08/23 23:58) Medications Given in ED Vital Signs/I&O 06/08/23 06/08/23 21:55 22:30 Temp 37.7 Pulse 105 Resp 16 B/P (MAP) 124/95 (105) Pulse Ox 92 O2 Delivery Nasal Cannula O2 Flow Rate 2.00 Capillary Refill : Blood Pressure Mean: 105 Progress Note : Progress Note VITALS ON ARRIVAL: TEMP 37.7=99.8, HR 105, BP 124/95, RR 16, O2 SAT 93% ON ROOM AIR. PPE WORN COVID AND FLU TESTING DONE SEPSIS PROTOCOL INITIATED GIVEN: -IV FLUIDS -ZOFRAN -CEFEPIME -PER SEPSIS PROTOCOL SENT HOME WITH MOLNUPIRAVIR AND ZOFRAN NO COUGH NO DYSPNEA NO HYPOXIA NO VOMITING AND PT KEPT TYLENOL DOWN. VITALS STABLE NO DETERIORATION IN PT'S CONDITION DURING ER STAY PT ABLE TO AMBULATE ON HER OWN OUT OF ER AT DISMISSAL DISCUSSED TEST RESULTS, ANTICIPATED COURSE, SYMPTOMATIC TREATMENT, MEDICATIONS, QUARANTINE, NEED FOR FOLLOW UP AND RETURN PRECAUTIONS REVIEWED PRIOR RECORDS ECG Initial ECG Impression Date: Jun 08, 2023 Initial ECG Impression Time: 23:19 Initial ECG Rate: 98 Initial ECG Rhythm: Normal Sinus (RBBB; LAFB) Initial ECG Intervals SC 227 QRS 144 QT/QTC 388/443 Initial ECG Comparisson: Unchanged Comment INTERPRETED BY ME Diagnostic Imaging Comments CXR--NO ACUTE PROCESS, PENDING RADIOLOGIST REVIEW Reviewed: Reviewed by Me Departure Impression Primary Impression: COVID-19 virus infection Disposition: HOME, SELF-CARE Condition: Stable Departure-Patient Inst. Decision time for Depature: 22:35 Referrals: EMELIA TAYLOR DO (PCP/Family) Primary Care Physician Patient Instructions: COVID-19 ED, Molnupiravir FDA Fact Sheet Add. Discharge Instructions: LOTS OF CLEAR LIQUIDS--WATER, BROTH, JELLO, GATORADE WHEN YOUR NAUSEA IS BETTER, ADD BRATS DIET TO CLEAR LIQUIDS--BANANAS, RICE, APPLESAUCE, TOAST, SALTINES TYLENOL AND MOTRIN NEEDED FOR PAIN OR FEVER OVER THE COUNTER MEDICATIONS FOR COUGH AND CONGESTION SUCH MUCINEX DM QUARANTINE YOURSELF AND ALL HOUSEHOLD CONTACTS FOR 10 DAYS FOLLOW UP WITH YOUR DR IN 3-4 DAYS, RETURN TO ER IF WORSE All discharge instructions reviewed with patient and/or family. Voiced understanding. Scripts Ondansetron (Ondansetron Odt) 4 Mg Tab.rapdis 4 MG PO Q4H for Nausea/Vomiting, #15 TAB Prov: REGLA LAWRENCE DO 06/08/23 Molnupiravir (Molnupiravir (Eua)) 200 Mg Capsule 800 MG PO BID for 5 Days, #40 CAP Prov: REGLA LAWRENCE DO 06/08/23 REGLA LAWRENCE DO Jun 08, 2023 22:07
[2023-06-08 22:22] LABS: BASOPHILS % (AUTO) 0 % (0-10); EOSINOPHILS % (AUTO) 0 % (0-10); HEMATOCRIT 39 % (35-52); HEMOGLOBIN 12.3 g/dL (11.5-16.0); LYMPHOCYTES # (AUTO) 0.7 10^3/uL (1.0-4.0); LYMPHOCYTES % (AUTO) 9 % (12-44); MEAN CORPUSCULAR HEMOGLOBIN 30 pg (25-34); MEAN CORPUSCULAR HGB CONC 32 g/dL (32-36); MEAN CORPUSCULAR VOLUME 94 fL (80-99); MONOCYTES # (AUTO) 1.1 10^3/uL (0.0-1.0); MONOCYTES % (AUTO) 15 % (0-12); NEUTROPHILS # (AUTO) 5.3 10^3/uL (1.8-7.8); NEUTROPHILS % (AUTO) 75 % (42-75); PLATELET COUNT 197 10^3/uL (130-400)
[2023-06-08 22:36] LABS: INR 1.2 (0.8-1.4); PROTHROMBIN TIME PATIENT 15.6 SEC (12.2-14.7)
[2023-06-08] MEDS ORDERED: MOLN200C PO (22:36)
[2023-06-08] MEDS ORDERED: ONDA4TAB11 PO (22:36)
[2023-06-08 22:46] LABS: ALBUMIN 3.7 GM/DL (3.2-4.5); BILIRUBIN,TOTAL 0.5 MG/DL (0.1-1.0); CREATININE SERUM 1.07 MG/DL (0.60-1.30); MAGNESIUM 1.9 MG/DL (1.6-2.4); POTASSIUM 3.5 MMOL/L (3.6-5.0); TOTAL PROTEIN 6.7 GM/DL (6.4-8.2)
[2023-06-08 23:23] LABS: BACTERIA,URINE TRACE /HPF; BILIRUBIN,URINE NEGATIVE (NEGATIVE); CLARITY,URINE CLEAR; COLOR,URINE YELLOW; GLUCOSE, URINE (UA) NEGATIVE (NEGATIVE); KETONES,URINE 3+ (NEGATIVE); LEUKOCYTE ESTERASE ,URINE NEGATIVE (NEGATIVE); NITRITE,URINE NEGATIVE (NEGATIVE); PROTEIN,URINE TRACE (NEGATIVE); SQUAMOUS EPITHELIAL CELL,UR RARE /HPF
[2023-06-08] MEDS ORDERED: ONDANSETRON 4 MG/2 ML (SDV) Z0FRAN ONE (23:58)
[2023-06-08] MEDS ORDERED: RX-ONDANSETRON 4 MG ODT (ZOFRAN) PPK #4 ONE (23:58)
--- NOTE | 2023-06-09 07:10 | Diagnostic Imaging Report ---
INDICATION: Fever. Time of Exam: 10:14 PM Comparison is made with prior chest from 06/20/2022. The heart size is stable. There appears to be a chest wall port with tip overlying the SVC. Lungs are clear. No infiltrates are seen. There is some pleural thickening in the left base. No pneumothorax is identified. IMPRESSION: Stable chest. No acute feature is detected. Dictated by: Dictated on workstation # [id number]
[2023-06-09] MEDS ORDERED: RX-MOLNUPIRAVIR (EUA) 200 MG #40 CAPSULES PO SCH (09:00)
== END 2023-06-09 00:15 | disposition home or self-care (01) ==
LOC: EDUNIT# 21:35 → ER 21:39
DX: U07.1 COVID-19 (principal); R11.2 Nausea with vomiting, unspecified; R51.9 Headache, unspecified; R50.9 Fever, unspecified; R53.1 Weakness
CPT/HCPCS: 36415; 71045; 80053; 81000; 82150; 83605; 83690; 83735; 85025; 85610; 85730; 87040; 87088; 87636; 93005; 93041; 96361; 96365; 96375; 96376

== ENCOUNTER 2023-06-14 12:17 | Inpatient (IN) | payer MEDICARE, MEDICAID ==
[~2023-06-14] VITALS: Ht 157 cm; Wt 74.5 kg
[~2023-06-14 12:17] MED LIST changes: +MOLN200C PO
[2023-06-14] MEDS ORDERED: NS IV 1000 ML 1,000 ML IV STA (12:34)
--- NOTE | 2023-06-14 12:41 | ED General ---
General Chief Complaint: COVID19 Suspect/Confirmed Stated Complaint: AMS Nursing Triage Note: DIAGNOSED WITH COVID ON SUNDAY, SINCE HAS BEEN SO NAUSEATED SHE IS UNABLE TO KEEP HER REGULAR MEDICATIONS DOWN. CAREGIVER STATES SHE IS ONLY TOLERATING SIPS AND THEN BECOMES NAUSEOUS AGAIN. ALSO REPORTED TO BE WEAKR THAN NORMAL. Source of Information: Patient, Caregiver, Old Records Exam Limitations: No Limitations History of Present Illness Date Seen by Provider: Jun 14, 2023 Time Seen by Provider: 12:20 Initial Comments 78-year-old female recently diagnosed with COVID on Sunday with symptoms starting the day prior to that coming in due to persistent nausea and nonbloody nonbilious vomiting, unable to keep anything down, now generally weak. Her caregiver brings her in today, the patient was unable to even pull her pants up, typically walks around with a walker, unable to ambulate. Has had persistent dry heaving all day today. She ran out of her nausea medicines this morning. Denies any chest pain, shortness of breath, severe abdominal pain, focal weakness or numbness, or any other concerns. She has been unable to swallow really any medications for several days. Allergies and Home Medications Allergies Coded Allergies: Sulfa (Sulfonamide Antibiotics) (Verified Allergy, Unknown, 06/14/23) Patient Home Medication List Home Medication List Reviewed: Yes ALPRAZolam (Xanax Tablet) 0.25 Mg Tablet, 0.25 MG PO TID PRN for ANXIETY Prescribed by: VINNIE DICK on 11/18/20 1204 Acetaminophen (Acetaminophen) 500 Mg Tablet, 1,000 MG PO Q8H PRN for PAIN-MILD (1-4) Prescribed by: VINNIE DICK on 11/18/20 1204 Aripiprazole (Aripiprazole) 10 Mg Tablet, 10 MG PO DAILY Prescribed by: VINNIE DICK on 11/18/20 1204 Aspirin (Aspirin EC) 81 Mg Tablet.dr, 81 MG PO DAILY Prescribed by: VINNIE DICK on 11/18/20 1204 Aspirin (Aspirin) 81 Mg Tab.chew, 81 MG PO DAILY, (Reported) Entered as Reported by: CAROL HAUSER on 09/21/21 0918 Atorvastatin Calcium (Atorvastatin Calcium) 40 Mg Tablet, 40 MG PO DAILY Prescribed by: VINNIE DICK on 11/18/20 1204 Cephalexin (Cephalexin) 500 Mg Capsule, 1 CAP PO TID Prescribed by: DIANA MORALES on 09/26/21 0858 Cetirizine HCl (Cetirizine HCl) 10 Mg Tablet, 10 MG PO DAILY, (Reported) Entered as Reported by: CAROL HAUSER on 09/21/21 0918 Diphenhydramine HCl (Benadryl Allergy) 25 Mg Tablet, 25-50 MG PO Q6H PRN for ALLERGY SYMPTOMS Prescribed by: VINNIE DICK on 11/18/20 1204 Divalproex Sodium (Divalproex Sodium ER) 500 Mg Tab.er.24h, 500 MG PO DAILY Prescribed by: VINNIE DICK on 11/18/20 1204 Duloxetine HCl (Duloxetine HCl) 30 Mg Capsule.dr, 30 MG PO DAILY Prescribed by: VINNIE DICK on 11/18/20 1204 Furosemide (Furosemide) 20 Mg Tablet, 20 MG PO DAILY Prescribed by: VINNIE DICK on 11/18/20 1204 Gabapentin (Neurontin) 300 Mg Capsule, 300 MG PO DAILY Prescribed by: VINNIE DICK on 11/18/20 1204 Gabapentin (Gabapentin) 600 Mg Tablet, 600 MG PO HS, (Reported) Entered as Reported by: CAROL HAUSER on 09/21/21 0918 Hydrocodone/Acetaminophen (Hydrocodone-Acetamin 5-325 mg) 1 Each Tablet, 1 TAB PO Q6H PRN for PAIN-SEVERE (9-10) Prescribed by: VINNIE DICK on 11/18/20 1204 Hydrocodone/Acetaminophen (Hydrocodone-Acetamin 5-325 mg) 1 Each Tablet, 1 TAB PO Q4H PRN for PAIN-MODERATE (5-7) Prescribed by: DIANA MORALES on 09/26/21 0859 Levothyroxine Sodium (Levothyroxine Sodium) 75 Mcg Tablet, 75 MCG PO DAILY Prescribed by: VINNIE DICK on 11/18/20 1204 Metoclopramide HCl (Metoclopramide HCl) 10 Mg Tablet, 10 MG PO QIDACHS PRN for NAUSEA/VOMITING-3RD LINE Prescribed by: VINNIE DICK on 11/18/20 1204 Metoprolol Succinate (Metoprolol Succinate) 25 Mg Tab.er.24h, 50 MG PO DAILY Prescribed by: VINNIE DICK on 11/18/20 1204 Molnupiravir (Molnupiravir (Eua)) 200 Mg Capsule, 800 MG PO BID Prescribed by: REGLA LAWRENCE on 06/08/232235 Montelukast Sodium (Montelukast Sodium) 10 Mg Tablet, 10 MG PO DAILY, (Reported) Entered as Reported by: CAROL HAUSER on 09/21/21 0918 Nitroglycerin (Nitroglycerin) 0.4 Mg Tab.subl, 0.4 MG PO UD PRN for CHEST PAIN (ANGINA), (Reported) Entered as Reported by: EMELIA JOHNSON on 06/16/20 1110 Ondansetron (Ondansetron Odt) 4 Mg Tab.rapdis, 4 MG PO Q4H Prescribed by: REGLA LAWRENCE on 06/08/232235 Pantoprazole Sodium (Pantoprazole Sodium) 40 Mg Tablet.dr, 40 MG PO DAILY Prescribed by: VINNIE DICK on 11/18/201203 Potassium Chloride (Potassium Chloride) 20 Meq Tab.er.prt, 20 MEQ PO TID Prescribed by: VINNIE DICK on 11/18/20 120 Prednisone (Prednisone) 10 Mg Tab, 10 MG PO DAILY Prescribed by: VINNIE DICK on 11/18/20 120 Sumatriptan Succinate (Sumatriptan Succinate) 100 Mg Tablet, 50 MG PO Q2H PRN for MIGRAINE Prescribed by: VINNIE DICK on 11/18/20 120 Tramadol HCl (Tramadol HCl) 50 Mg Tablet, 50-100 MG PO Q6H PRN for PAIN-MODERATE (5-7) Prescribed by: VINNIE DICK on 11/18/20 120 Trazodone HCl (Trazodone HCl) 50 Mg Tablet, 50 MG PO HS Prescribed by: VINNIE DICK on 11/18/201203 Review of Systems Review of Systems Constitutional: fever, malaise, weakness EENTM: no symptoms reported Respiratory: no symptoms reported Cardiovascular: no symptoms reported Gastrointestinal: see HPI Genitourinary: no symptoms reported Musculoskeletal: no symptoms reported Skin: no symptoms reported Psychiatric/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: No Symptoms Reported Hematologic/Lymphatic: No Symptoms Reported Past Cbriehw-[id number]-[id number] Hx Patient Social History Tobacco Use?: No Immunizations Up To Date Tetanus Booster (TDap): Less than 5yrs PED Vaccines UTD: Yes First/Initial COVID19 Vaccinat: DECEMBER 2020 Second COVID19 Vaccination Jasson: JANUARY 2021 Third COVID19 Vaccination Date: DECEMBER 2020 Seasonal Allergies Seasonal Allergies: Yes Past Medical History Surgery/Hospitalization HX: CHF, RA, Surgeries: Yes (PORT;HYST/BSO;BOWEL/RECTAL SURGERY;HIATAL HERNIA REPAIR;EGD/C- SCOPES) Abdominal, Adenoidectomy, Bowel Surgery, Gallbladder, Hysterectomy, Joint Replacement, Oophorectomy, Orthopedic, Rectal, Tonsillectomy Respiratory: Yes Asthma, Pneumonia, COPD Cardiac: Yes (PSVT; RBBB/LAFB; CHF) Hypertension, Irregular Heartbeat 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: Yes Headaches /Migraines, Neuropathy, Vertigo 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, 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 Genitourinary: No Gastrointestinal: Yes (BOWEL/RECTAL SURGERY;RECTAL PROLAPSE REPAIR;HIATAL HERNIA REPAIR; U.COLITIS) Colitis, Gastroesophageal Reflux, Crohns Disease, Chronic Constipation, Chronic Diarrhea, Hiatal Hernia, Gall Bladder Disease, Irritable Bowel Musculoskeletal: Yes (FALLS, USES WALKER; R TOES 3,4,5 AMPUTATED) Amputee, Osteoporosis, Arthritis, Fibromyalgia, Rheumatoid Arthritis, Chronic Back Pain Endocrine: Yes Hypothyroidsim HEENT: Yes Glaucoma Cancer: Yes Cervical Did You Recieve Any Treatments: Yes What Type of Treatment Did You: Surgical Intervention Psychosocial: Yes (EXTENSIVE PSYCH ISSUES) Anxiety, Depression Integumentary: No Blood Disorders: No Family Medical History Patient reports no known family medical history. No Pertinent Family Hx PSH: -HYSTERECTOMY/BILATERAL SALPINGO-OOPHORECTOMY -BOWEL SURGERY FOR OBSTRUCTION -LAPAROSCOPY -RECTAL PROLAPSE REPAIR/SIGMOID RESECTION -UMBILICAL HERNIA REPAIR -HIATAL HERNIA REPAIR -HEMORRHOIDECTOMY -TONSILLECTOMY/ADENOIDECTOMY -CHOLECYSTECTOMY -PORT LEFT CHEST -RIGHT TOES 3,4,5 AMPUTATED -LEFT SHOULDER REPLACEMENT HAS CHRONIC RECTAL PAIN COMPLAINTS Physical Exam Vital Signs Vital Signs - First Documented 06/14/23 12:31 Temp 36.0 Pulse 103 Resp 20 B/P (MAP) 129/97 (108) Pulse Ox 96 O2 Delivery Room Air Capillary Refill : Less Than 3 Seconds Height, Weight, BMI Height: 5'2.00" Weight: 125lbs. 0oz. [id number]; 25.00 BMI Method:Stated General Appearance: WD/WN Eyes: Bilateral Eye Normal Inspection HEENT: PERRL/EOMI, Normal ENT Inspection, Pharynx Normal Neck: Full Range of Motion, Normal Inspection, Non Tender, Supple Respiratory: Chest Non Tender, Lungs Clear, Normal Breath Sounds, No Accessory Muscle Use, No Respiratory Distress Cardiovascular: No Edema, Normal Peripheral Pulses, Tachycardia Gastrointestinal: Normal Bowel Sounds, Non Tender, Soft; No Distended, No Guarding Back: Normal Inspection, No CVA Tenderness, No Vertebral Tenderness Extremity: Normal Capillary Refill, Normal Inspection, Normal Range of Motion, Non Tender, No Calf Tenderness, No Pedal Edema Neurologic/Psychiatric: Alert, Oriented x3, No Motor/Sensory Deficits, Normal Mood/Affect Skin: Normal Color, Warm/Dry Focused Exam Lactate Level 06/14/23 12:40: Lactic Acid Level 2.45*H Lactic Acid Level Laboratory Tests Test 06/14/23 12:40 Lactic Acid Level 2.45 MMOL/L (0.50-2.00) *H Progress/Results/Core Measures Suspected Sepsis SIRS Temperature: Pulse: 103 Respiratory Rate: 20 Laboratory Tests 06/14/23 12:40: White Blood Count 5.2 Blood Pressure 129 /97 Mean: 108 06/14/23 12:40: Lactic Acid Level 2.45*H Laboratory Tests 06/14/23 12:40: Creatinine 1.04, INR Comment 1.2, Platelet Count 246, Total Bilirubin 1.0 Results/Orders Lab Results Laboratory Tests Test 06/14/23 12:40 Range/Units White Blood Count 5.2 4.3-11.0 10^3/uL Red Blood Count 4.49 3.80-5.11 10^6/uL Hemoglobin 13.4 11.5-16.0 g/dL Hematocrit 41 35-52 % Mean Corpuscular Volume 92 80-99 fL Mean Corpuscular Hemoglobin 30 25-34 pg Mean Corpuscular Hemoglobin Concent 33 32-36 g/dL Red Cell Distribution Width 14.7 H 10.0-14.5 % Platelet Count 246 130-400 10^3/uL Mean Platelet Volume 9.9 9.0-12.2 fL Immature Granulocyte % (Auto) 0 % Neutrophils (%) (Auto) 63 42-75 % Lymphocytes (%) (Auto) 27 12-44 % Monocytes (%) (Auto) 8 0-12 % Eosinophils (%) (Auto) 2 0-10 % Basophils (%) (Auto) 0 0-10 % Neutrophils # (Auto) 3.3 1.8-7.8 10^3/uL Lymphocytes # (Auto) 1.4 1.0-4.0 10^3/uL Monocytes # (Auto) 0.4 0.0-1.0 10^3/uL Eosinophils # (Auto) 0.1 0.0-0.3 10^3/uL Basophils # (Auto) 0.0 0.0-0.1 10^3/uL Immature Granulocyte # (Auto) 0.0 0.0-0.1 10^3/uL Prothrombin Time 15.5 H 12.2-14.7 SEC INR Comment 1.2 0.8-1.4 Activated Partial Thromboplast Time 28 24-35 SEC Sodium Level 144 135-145 MMOL/L Potassium Level 3.3 L 3.6-5.0 MMOL/L Chloride Level 108 H 98-107 MMOL/L Carbon Dioxide Level 21 21-32 MMOL/L Anion Gap 15 H 5-14 MMOL/L Blood Urea Nitrogen 13 7-18 MG/DL Creatinine 1.04 0.60-1.30 MG/DL Estimat Glomerular Filtration Rate 56 BUN/Creatinine Ratio 13 Glucose Level 114 H 70-105 MG/DL Lactic Acid Level 2.45 *H 0.50-2.00 MMOL/L Calcium Level 9.3 8.5-10.1 MG/DL Corrected Calcium 9.4 8.5-10.1 MG/DL Magnesium Level 2.1 1.6-2.4 MG/DL Total Bilirubin 1.0 0.1-1.0 MG/DL Aspartate Amino Transf (AST/SGOT) 30 5-34 U/L Alanine Aminotransferase (ALT/SGPT) 30 0-55 U/L Alkaline Phosphatase 75 40-136 U/L Troponin I < 0.028 <0.028 NG/ML Total Protein 6.9 6.4-8.2 GM/DL Albumin 3.9 3.2-4.5 GM/DL My Orders Orders - STEVEN MANNING MD Cbc With Automated Diff (06/14/23 12:34) Comprehensive Metabolic Panel (06/14/23 12:34) Lactic Acid Analyzer (06/14/23 12:34) Magnesium (06/14/23 12:34) Protime With Inr (06/14/23 12:34) Partial Thromboplastin Time (06/14/23 12:34) Troponin I [place] (06/14/23 12:34) Chest 1 View, Ap/Pa Only (06/14/23 12:34) Ed Iv/Invasive Line Start (06/14/23 12:34) Ekg Tracing (06/14/23 12:34) Monitor-Rhythm Ecg Trace Only (06/14/23 12:34) Ns Iv 1000 Ml (Sodium Chloride 0.9%) (06/14/23 12:34) Ondansetron Injection (Zofran Injectio (06/14/23 12:45) Medications Given in ED Current Medications Medications Dose Ordered Sig/Mana Route Start Time Stop Time Status Last Admin Dose Admin Ondansetron HCl 4 mg ONCE ONCE IVP 06/14/23 12:45 06/14/23 12:46 DC 06/14/23 13:02 4 MG Vital Signs/I&O 06/14/23 12:31 Temp 36.0 Pulse 103 Resp 20 B/P (MAP) 129/97 (108) Pulse Ox 96 O2 Delivery Room Air Capillary Refill : Less Than 3 Seconds Blood Pressure Mean: 108 Progress Note : Progress Note 78-year-old female with above history coming in due to nausea and vomiting in the setting of recently having COVID. ABCs were intact and vitals are stable on presentation. She is generally weak, but nonfocal on exam. Abdomen is soft and nontender, likely no significant intra-abdominal issues, likely just related to her viral illness. An IV was placed and she was given a bolus of IV fluids and Zofran. Basic labs significant for normal white blood cell count, normal creatinine, slightly elevated lactic acid, negative troponin. Chest x-ray ordered and interpreted by me showing no acute ischemic changes. EKG ordered and interpreted by me showing a right bundle branch block, no ischemic changes, appears similar to prior. I reassessed the patient after the fluids, still feeling generally weak, cannot stand on her own, cannot complete her ADLs. I contacted Dr. Dick who will admit her under observation status for further evaluation and management. ECG Initial ECG Impression Date: Jun 14, 2023 Initial ECG Impression Time: 12:56 Initial ECG Rate: 89 Initial ECG Rhythm: Normal Sinus Comment Wide QRS with a right bundle branch block, left anterior fascicular block, no STEMI, appears similar to prior EKG Diagnostic Imaging Diagonstic Imaging: Xray (chest) Comments [facility], [place] NAME: YOVANY BLISS [facility] REC#: [id number] PT STATUS: REG ER : 1945 PHYSICIAN: STEVEN MANNING MD ADMIT DATE: 06/14/23/ER Draft Date of Exam:06/14/23 CHEST 1 VIEW, AP/PA ONLY INDICATION: Weakness. TECHNIQUE: AP view of the chest is obtained with comparison made to study of 06/08/2023. FINDINGS: Heart size and pulmonary vascularity are within normal limits. Left anterior chest wall port is in place. There is no pneumothorax, consolidation or significant pleural fluid. Hiatal hernia is noted. IMPRESSION: No acute abnormality or adverse change. Dictated on workstation # [id number] Dict: 06/14/23 1325 Trans: 06/14/23 1332 [id number] Interpreted by: MIRIAM LOPEZ MD Electronically signed by: Departure Impression Primary Impression: Vomiting in adult Additional Impression: Weakness Disposition: ADMITTED INPATIENT Condition: Stable Admissions Decision to Admit Reason: Admit from ER (General) Decision to Admit/Date: Jun 14, 2023 Time/Decision to Admit Time: 13:35 Departure-Patient Inst. Referrals: RAMAN MISTRY MD (PCP/Family) Primary Care Physician STEVEN MANNING MD Jun 14, 2023 12:41
[2023-06-14] MEDS ORDERED: ONDANSETRON 4 MG/2 ML (SDV) Z0FRAN IVP ONE (12:45)
[2023-06-14 13:04] LABS: BASOPHILS % (AUTO) 0 % (0-10); EOSINOPHILS # (AUTO) 0.1 10^3/uL (0.0-0.3); EOSINOPHILS % (AUTO) 2 % (0-10); HEMATOCRIT 41 % (35-52); HEMOGLOBIN 13.4 g/dL (11.5-16.0); LYMPHOCYTES # (AUTO) 1.4 10^3/uL (1.0-4.0); LYMPHOCYTES % (AUTO) 27 % (12-44); MEAN CORPUSCULAR HEMOGLOBIN 30 pg (25-34); MEAN CORPUSCULAR HGB CONC 33 g/dL (32-36); MEAN CORPUSCULAR VOLUME 92 fL (80-99); MEAN PLATELET VOLUME 9.9 fL (9.0-12.2); MONOCYTES # (AUTO) 0.4 10^3/uL (0.0-1.0); MONOCYTES % (AUTO) 8 % (0-12); NEUTROPHILS # (AUTO) 3.3 10^3/uL (1.8-7.8); NEUTROPHILS % (AUTO) 63 % (42-75); PLATELET COUNT 246 10^3/uL (130-400); WHITE BLOOD COUNT 5.2 10^3/uL (4.3-11.0)
[2023-06-14 13:14] LABS: ALBUMIN 3.9 GM/DL (3.2-4.5); CHLORIDE 108 MMOL/L (98-107); POTASSIUM 3.3 MMOL/L (3.6-5.0); SODIUM 144 MMOL/L (135-145)
[2023-06-14 13:15] LABS: CALCIUM 9.3 MG/DL (8.5-10.1)
[2023-06-14 13:16] LABS: GLUCOSE 114 MG/DL (70-105); TOTAL PROTEIN 6.9 GM/DL (6.4-8.2)
[2023-06-14 13:17] LABS: CARBON DIOXIDE 21 MMOL/L (21-32); INR 1.2 (0.8-1.4); PROTHROMBIN TIME PATIENT 15.5 SEC (12.2-14.7)
[2023-06-14 13:20] LABS: ALKALINE PHOSPHATASE 75 U/L (40-136); CREATININE SERUM 1.04 MG/DL (0.60-1.30); GFR ESTIMATED 56
[2023-06-14 13:21] LABS: BUN/CREATININE RATIO 13
[2023-06-14 13:23] LABS: ALANINE AMINOTRANSFERASE 30 U/L (0-55); MAGNESIUM 2.1 MG/DL (1.6-2.4)
--- NOTE | 2023-06-14 13:32 | Diagnostic Imaging Report ---
INDICATION: Weakness. TECHNIQUE: AP view of the chest is obtained with comparison made to study of 06/08/2023. FINDINGS: Heart size and pulmonary vascularity are within normal limits. Left anterior chest wall port is in place. There is no pneumothorax, consolidation or significant pleural fluid. Hiatal hernia is noted. IMPRESSION: No acute abnormality or adverse change. Dictated by: Dictated on workstation # [id number]
--- NOTE | 2023-06-14 14:32 | History & Physical ---
[facility] 06/14[facility]23 1432: History of Present Illness History of Present Illness Reason for visit/HPI CC: Nausea, vomiting, and weakness HPI: 78 y/o female with a diagnosis of COVID-19 confirmed on Sunday presented to the ER due to non-bloody nausea and vomiting. She has had diarrhea associated with it, and has not been able to keep anything down for the past week. She drinks small sips of sprite but has not been able to finish a whole can and she only ate a few bites of toast 3 days ago. She has been dry heaving all day and has been unable to take any of her normal medications. She feels and appears very weak, especially in her legs, and is unable to stand or do any tasks on her own. She normally needs a walker to move around but recently finds it difficult to get out of bed. Her caregiver states that her sleep schedule is reversed with her sleeping all day and staying awake at the night, but this has been happening for a long time. Date of Admission Jun 14, 2023 at 14:17 Date Seen by a Provider: Jun 14, 2023 Time Seen by a Provider: 14:10 I consulted on this patient on 06/14/23 14:27 Attending Physician Sharyn Graham MD Admitting Physician Admitting Physician: Mary Jo Dick DO Attending Physician: Mary Jo Dick DO Consult Allergies and Home Medications Allergies Coded Allergies: Sulfa (Sulfonamide Antibiotics) (Verified Allergy, Unknown, 06/14/23) Patient Home Medication List Home Medication List Reviewed: Yes Aspirin (Aspirin EC) 81 Mg Tablet.dr, 81 MG PO DAILY, (Reported) Entered as Reported by: EMELIA JOHNSON on 06/14/231601 Last Action: Reviewed Atorvastatin Calcium (Atorvastatin Calcium) 40 Mg Tablet, 40 MG PO DAILY, (Reported) Entered as Reported by: EMELIA JOHNSON on 06/14/231601 Last Action: Reviewed Cetirizine HCl (Cetirizine HCl) 10 Mg Tablet, 10 MG PO DAILY, (Reported) Entered as Reported by: CAROL HAUSER on 09/21/21 0918 Last Action: Reviewed Divalproex Sodium (Depakote ER) 500 Mg Tab.er.24h, 500 MG PO DAILY, (Reported) Entered as Reported by: EMELIA JOHNSON on 06/14/231601 Last Action: Reviewed Furosemide (Furosemide) 40 Mg Tablet, 40 MG PO 0800,1200, (Reported) Entered as Reported by: EMELIA JOHNSON on 06/14/231601 Last Action: Reviewed Gabapentin (Neurontin) 300 Mg Capsule, 300 MG PO DAILY, (Reported) Entered as Reported by: EMELIA JOHNSON on 06/14/231601 Last Action: Reviewed Gabapentin (Neurontin) 300 Mg Capsule, 600 MG PO HS, (Reported) Entered as Reported by: EMELIA JOHNSON on 06/14/231601 Last Action: Reviewed Levothyroxine Sodium (Levothyroxine Sodium) 75 Mcg Tablet, 75 MCG PO DAILY, (Reported) Entered as Reported by: EMELIA JOHNSON on 06/14/231601 Last Action: Reviewed Metoclopramide HCl (Metoclopramide HCl) 10 Mg Tablet, 10 MG PO BID, (Reported) Entered as Reported by: EMELIA JOHNSON on 06/14/231601 Last Action: Reviewed Metoclopramide HCl (Metoclopramide HCl) 10 Mg Tablet, 20 MG PO 1200, (Reported) Entered as Reported by: EMELIA JOHNSON on 06/14/231601 Last Action: Reviewed Metoprolol Succinate (Metoprolol Succinate) 50 Mg Tab.er.24h, 50 MG PO DAILY, (Reported) Entered as Reported by: EMELIA JOHNSON on 06/14/231601 Last Action: Reviewed Mirtazapine (Mirtazapine) 15 Mg Tablet, 15 MG PO HS, (Reported) Entered as Reported by: EMELIA JOHNSON on 06/14/231601 Last Action: Reviewed Molnupiravir (Molnupiravir (Eua)) 200 Mg Capsule, 800 MG PO BID, (Reported) Entered as Reported by: EMELIA JOHNSON on 06/14/231601 Last Action: Reviewed Montelukast Sodium (Montelukast Sodium) 10 Mg Tablet, 10 MG PO DAILY, (Reported) Entered as Reported by: CAROL HAUSER on 09/21/21917 Last Action: Reviewed Multivitamin/Iron/Folic Acid (Centrum Adults Tablet) 18 Mg Iron-400 Mcg Tablet, 1 EACH PO DAILY, (Reported) Entered as Reported by: EMELIA JOHNSON on 06/14/231601 Last Action: Reviewed Pantoprazole Sodium (Pantoprazole Sodium) 40 Mg Tablet.dr, 40 MG PO DAILY, (Reported) Entered as Reported by: EMELIA JOHNSON on 06/14/231601 Last Action: Reviewed Potassium Chloride (Potassium Chloride) 20 Meq Tablet.er, 20 MEQ PO TID, (Reported) Entered as Reported by: EMELIA JOHNSON on 06/14/231601 Last Action: Reviewed Tramadol HCl (Tramadol HCl ER) 100 Mg Tab.er.24h, 100 MG PO HS, (Reported) Entered as Reported by: EMELIA JOHNSON on 06/14/231601 Last Action: Reviewed Discontinued Medications ALPRAZolam (Xanax Tablet) 0.25 Mg Tablet, 0.25 MG PO TID PRN for ANXIETY Discontinued Reason: No Longer Taking Prescribed by: MARY JO DICK on 11/18/201203 Last Action: Discontinued Acetaminophen (Acetaminophen) 500 Mg Tablet, 1,000 MG PO Q8H PRN for PAIN-MILD (1-4) Discontinued Reason: No Longer Taking Prescribed by: MARY JO DICK on 11/18/201203 Last Action: Discontinued Aripiprazole (Aripiprazole) 10 Mg Tablet, 10 MG PO DAILY Discontinued Reason: No Longer Taking Prescribed by: MARY JO DICK on 11/18/201203 Last Action: Discontinued Aspirin (Aspirin EC) 81 Mg Tablet.dr, 81 MG PO DAILY Discontinued Reason: No Longer Taking Prescribed by: MARY JO DICK on 11/18/201203 Last Action: Discontinued Atorvastatin Calcium (Atorvastatin Calcium) 40 Mg Tablet, 40 MG PO DAILY Discontinued Reason: No Longer Taking Prescribed by: MARY JO DICK on 11/18/201203 Last Action: Discontinued Cephalexin (Cephalexin) 500 Mg Capsule, 1 CAP PO TID Discontinued Reason: No Longer Taking Prescribed by: DIANA MORALES on 09/26/21 0858 Last Action: Discontinued Diphenhydramine HCl (Benadryl Allergy) 25 Mg Tablet, 25-50 MG PO Q6H PRN for ALLERGY SYMPTOMS Discontinued Reason: No Longer Taking Prescribed by: MARY JO DICK on 11/18/201203 Last Action: Discontinued Divalproex Sodium (Divalproex Sodium ER) 500 Mg Tab.er.24h, 500 MG PO DAILY Discontinued Reason: No Longer Taking Prescribed by: MARY JO DICK on 11/18/201203 Last Action: Discontinued Duloxetine HCl (Duloxetine HCl) 30 Mg Capsule.dr, 30 MG PO DAILY Discontinued Reason: No Longer Taking Prescribed by: MARY JO DICK on 11/18/201203 Last Action: Discontinued Furosemide (Furosemide) 20 Mg Tablet, 20 MG PO DAILY Discontinued Reason: No Longer Taking Prescribed by: MARY JO DICK on 11/18/201203 Last Action: Discontinued Gabapentin (Neurontin) 300 Mg Capsule, 300 MG PO DAILY Discontinued Reason: No Longer Taking Prescribed by: MARY JO DICK on 11/18/201203 Last Action: Discontinued Gabapentin (Gabapentin) 600 Mg Tablet, 600 MG PO HS, (Reported) Discontinued Reason: No Longer Taking Entered as Reported by: CAROL HAUSER on 09/21/21 0918 Last Action: Discontinued Hydrocodone/Acetaminophen (Hydrocodone-Acetamin 5-325 mg) 1 Each Tablet, 1 TAB PO Q6H PRN for PAIN-SEVERE (9-10) Discontinued Reason: No Longer Taking Prescribed by: MARY JO DICK on 11/18/201203 Last Action: Discontinued Hydrocodone/Acetaminophen (Hydrocodone-Acetamin 5-325 mg) 1 Each Tablet, 1 TAB PO Q4H PRN for PAIN-MODERATE (5-7) Discontinued Reason: No Longer Taking Prescribed by: DIANA MORALES on 09/26/21 0859 Last Action: Discontinued Levothyroxine Sodium (Levothyroxine Sodium) 75 Mcg Tablet, 75 MCG PO DAILY Discontinued Reason: No Longer Taking Prescribed by: MARY JO DICK on 11/18/201203 Last Action: Discontinued Metoclopramide HCl (Metoclopramide HCl) 10 Mg Tablet, 10 MG PO QIDACHS PRN for NAUSEA/VOMITING-3RD LINE Discontinued Reason: No Longer Taking Prescribed by: MARY JO DICK on 11/18/201203 Last Action: Discontinued Metoprolol Succinate (Metoprolol Succinate) 25 Mg Tab.er.24h, 50 MG PO DAILY Discontinued Reason: No Longer Taking Prescribed by: MARY JO DICK on 11/18/201203 Last Action: Discontinued Molnupiravir (Molnupiravir (Eua)) 200 Mg Capsule, 800 MG PO BID Discontinued Reason: No Longer Taking Prescribed by: REGLA LAWRENCE on 06/08/23 0235 Last Action: Discontinued Nitroglycerin (Nitroglycerin) 0.4 Mg Tab.subl, 0.4 MG PO UD PRN for CHEST PAIN (ANGINA), (Reported) Discontinued Reason: No Longer Taking Entered as Reported by: EMELIA JOHNSON on 06/16/20 111 Last Action: Discontinued Pantoprazole Sodium (Pantoprazole Sodium) 40 Mg Tablet.dr, 40 MG PO DAILY Discontinued Reason: No Longer Taking Prescribed by: MARY JO DICK on 11/18/201203 Last Action: Discontinued Potassium Chloride (Potassium Chloride) 20 Meq Tab.er.prt, 20 MEQ PO TID Discontinued Reason: No Longer Taking Prescribed by: MARY JO DICK on 11/18/201203 Last Action: Discontinued Prednisone (Prednisone) 10 Mg Tab, 10 MG PO DAILY Discontinued Reason: No Longer Taking Prescribed by: MARY JO DICK on 11/18/201203 Last Action: Discontinued Sumatriptan Succinate (Sumatriptan Succinate) 100 Mg Tablet, 50 MG PO Q2H PRN for MIGRAINE Discontinued Reason: No Longer Taking Prescribed by: MARY JO DICK on 11/18/201203 Last Action: Discontinued Tramadol HCl (Tramadol HCl) 50 Mg Tablet, 50-100 MG PO Q6H PRN for PAIN-MODERATE (5-7) Discontinued Reason: No Longer Taking Prescribed by: MARY JO DICK on 11/18/201203 Last Action: Discontinued Trazodone HCl (Trazodone HCl) 50 Mg Tablet, 50 MG PO HS Discontinued Reason: No Longer Taking Prescribed by: MARY JO DICK on 11/18/201203 Last Action: Discontinued Past Qibthao-Rhvjqj-Ksuqxt Hx Patient Social History Tobacco Use?: No Use of E-Cig and/or Vaping dev: No Substance use?: No Alcohol Use?: No Immunizations Up To Date Date of Influenza Vaccine: Sep 07, 2021 First/Initial COVID19 Vaccinat: DECEMBER 2020 Second COVID19 Vaccination Jasson: JANUARY 2021 Tetanus Booster (TDap): More Than 5 Years Hepatitis A: Yes Hepatitis B: Yes PED Vaccines UTD: Yes Date of Pneumonia Vaccine: Sep 21, 2017 Seasonal Allergies Seasonal Allergies: Yes Current Status Advance Directives: No Communicates: Verbally Primary Language: Uruguayan Preferred Spoken Language: Uruguayan Sensory deficits: Vision impairment Implanted or Applied Medical D: None Past Medical History Surgeries: Abdominal, Adenoidectomy, Bowel Surgery, Gallbladder, Hysterectomy, Joint Replacement, Oophorectomy, Orthopedic, Rectal, Tonsillectomy Asthma, Pneumonia, COPD Hypertension, Irregular Heartbeat Headaches /Migraines, Neuropathy, Vertigo 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 No Pertinent Family Hx PSH: -HYSTERECTOMY/BILATERAL SALPINGO-OOPHORECTOMY -BOWEL SURGERY FOR OBSTRUCTION -LAPAROSCOPY -RECTAL PROLAPSE REPAIR/SIGMOID RESECTION -UMBILICAL HERNIA REPAIR -HIATAL HERNIA REPAIR -HEMORRHOIDECTOMY -TONSILLECTOMY/ADENOIDECTOMY -CHOLECYSTECTOMY -PORT LEFT CHEST -RIGHT TOES 3,4,5 AMPUTATED -LEFT SHOULDER REPLACEMENT HAS CHRONIC RECTAL PAIN COMPLAINTS Review of Systems Constitutional: malaise, weakness, weight loss EENTM: no symptoms reported Respiratory: cough Cardiovascular: no symptoms reported Gastrointestinal: see HPI Psychiatric/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: Anxiety, Depressed, Numbness (neuropathy in right leg), Weakness Physical Exam Vital Signs Vital Signs - First Documented 06/14/23 12:31 Temp 36.0 Pulse 103 Resp 20 B/P (MAP) 129/97 (108) Pulse Ox 96 O2 Delivery Room Air Capillary Refill : Less Than 3 Seconds Height, Weight, BMI Height: 5'2.00" Weight: 125lbs. 0oz. [id number]; 25.00 BMI Method:Stated General Appearance: No Apparent Distress Respiratory: Chest Non Tender, Lungs Clear, Normal Breath Sounds, No Accessory Muscle Use, No Respiratory Distress Gastrointestinal: Non Tender, Soft Neurologic/Psychiatric: Alert, Oriented x3, Depressed Affect, Motor Weakness Assessment/Plan Assessment and Plan Assesment: COVID-19 post infectious cough hiatial hernia lactic acidosis GERD exacerbation Plan: IV fluids and nutrition monitor airway and labs Admission Diagnosis Admission Status: Inpatient Order (span 2 midnights) Reason for Inpatient Admission: nausea and vomiting 2/2 COVID-19 infection MARY JO DICK DO 06/15/23 0510: Allergies and Home Medications Allergies Coded Allergies: Sulfa (Sulfonamide Antibiotics) (Verified Allergy, Unknown, 06/14/23) Patient Home Medication List Aspirin (Aspirin EC) 81 Mg Tablet.dr, 81 MG PO DAILY, (Reported) Entered as Reported by: EMELIA JOHNSON on 06/14/231601 Last Action: Reviewed Atorvastatin Calcium (Atorvastatin Calcium) 40 Mg Tablet, 40 MG PO DAILY, (Reported) Entered as Reported by: EMELIA JOHNSON on 06/14/231601 Last Action: Reviewed Cetirizine HCl (Cetirizine HCl) 10 Mg Tablet, 10 MG PO DAILY, (Reported) Entered as Reported by: CAROL HAUSER on 09/21/21 0918 Last Action: Reviewed Divalproex Sodium (Depakote ER) 500 Mg Tab.er.24h, 500 MG PO DAILY, (Reported) Entered as Reported by: EMELIA JOHNSON on 06/14/231601 Last Action: Reviewed Furosemide (Furosemide) 40 Mg Tablet, 40 MG PO 0800,1200, (Reported) Entered as Reported by: EMELIA JOHNSON on 06/14/231601 Last Action: Reviewed Gabapentin (Neurontin) 300 Mg Capsule, 300 MG PO DAILY, (Reported) Entered as Reported by: EMELIA JOHNSON on 06/14/231601 Last Action: Reviewed Gabapentin (Neurontin) 300 Mg Capsule, 600 MG PO HS, (Reported) Entered as Reported by: EMELIA JOHNSON on 06/14/231601 Last Action: Reviewed Levothyroxine Sodium (Levothyroxine Sodium) 75 Mcg Tablet, 75 MCG PO DAILY, (Reported) Entered as Reported by: EMELIA JOHNSON on 06/14/231601 Last Action: Reviewed Metoclopramide HCl (Metoclopramide HCl) 10 Mg Tablet, 10 MG PO BID, (Reported) Entered as Reported by: EMELIA JOHNSON on 06/14/231601 Last Action: Reviewed Metoclopramide HCl (Metoclopramide HCl) 10 Mg Tablet, 20 MG PO 1200, (Reported) Entered as Reported by: EMELIA JOHNSON on 06/14/231601 Last Action: Reviewed Metoprolol Succinate (Metoprolol Succinate) 50 Mg Tab.er.24h, 50 MG PO DAILY, (Reported) Entered as Reported by: EMELIA JOHNSON on 06/14/231601 Last Action: Reviewed Mirtazapine (Mirtazapine) 15 Mg Tablet, 15 MG PO HS, (Reported) Entered as Reported by: EMELIA JOHNSON on 06/14/231601 Last Action: Reviewed Molnupiravir (Molnupiravir (Eua)) 200 Mg Capsule, 800 MG PO BID, (Reported) Entered as Reported by: EMELIA JOHNSON on 06/14/231601 Last Action: Reviewed Montelukast Sodium (Montelukast Sodium) 10 Mg Tablet, 10 MG PO DAILY, (Reported) Entered as Reported by: CAROL HAUSER on 09/21/21917 Last Action: Reviewed Multivitamin/Iron/Folic Acid (Centrum Adults Tablet) 18 Mg Iron-400 Mcg Tablet, 1 EACH PO DAILY, (Reported) Entered as Reported by: EMELIA JOHNSON on 06/14/231601 Last Action: Reviewed Pantoprazole Sodium (Pantoprazole Sodium) 40 Mg Tablet.dr, 40 MG PO DAILY, (Reported) Entered as Reported by: EMELIA JOHNSON on 06/14/231601 Last Action: Reviewed Potassium Chloride (Potassium Chloride) 20 Meq Tablet.er, 20 MEQ PO TID, (Reported) Entered as Reported by: EMELIA JOHNSON on 06/14/231601 Last Action: Reviewed Tramadol HCl (Tramadol HCl ER) 100 Mg Tab.er.24h, 100 MG PO HS, (Reported) Entered as Reported by: EMELIA JOHNSON on 06/14/231601 Last Action: Reviewed Discontinued Medications ALPRAZolam (Xanax Tablet) 0.25 Mg Tablet, 0.25 MG PO TID PRN for ANXIETY Discontinued Reason: No Longer Taking Prescribed by: MARY JO DICK on 11/18/201203 Last Action: Discontinued Acetaminophen (Acetaminophen) 500 Mg Tablet, 1,000 MG PO Q8H PRN for PAIN-MILD (1-4) Discontinued Reason: No Longer Taking Prescribed by: MARY JO DICK on 11/18/201203 Last Action: Discontinued Aripiprazole (Aripiprazole) 10 Mg Tablet, 10 MG PO DAILY Discontinued Reason: No Longer Taking Prescribed by: MARY JO DICK on 11/18/201203 Last Action: Discontinued Aspirin (Aspirin EC) 81 Mg Tablet.dr, 81 MG PO DAILY Discontinued Reason: No Longer Taking Prescribed by: MARY JO DICK on 11/18/201203 Last Action: Discontinued Atorvastatin Calcium (Atorvastatin Calcium) 40 Mg Tablet, 40 MG PO DAILY Discontinued Reason: No Longer Taking Prescribed by: MARY JO DICK on 11/18/201203 Last Action: Discontinued Cephalexin (Cephalexin) 500 Mg Capsule, 1 CAP PO TID Discontinued Reason: No Longer Taking Prescribed by: DIANA MORALES on 09/26/21 0858 Last Action: Discontinued Diphenhydramine HCl (Benadryl Allergy) 25 Mg Tablet, 25-50 MG PO Q6H PRN for ALLERGY SYMPTOMS Discontinued Reason: No Longer Taking Prescribed by: MARY JO DICK on 11/18/201203 Last Action: Discontinued Divalproex Sodium (Divalproex Sodium ER) 500 Mg Tab.er.24h, 500 MG PO DAILY Discontinued Reason: No Longer Taking Prescribed by: MARY JO DICK on 11/18/201203 Last Action: Discontinued Duloxetine HCl (Duloxetine HCl) 30 Mg Capsule.dr, 30 MG PO DAILY Discontinued Reason: No Longer Taking Prescribed by: MARY JO DICK on 11/18/201203 Last Action: Discontinued Furosemide (Furosemide) 20 Mg Tablet, 20 MG PO DAILY Discontinued Reason: No Longer Taking Prescribed by: MARY JO DICK on 11/18/201203 Last Action: Discontinued Gabapentin (Neurontin) 300 Mg Capsule, 300 MG PO DAILY Discontinued Reason: No Longer Taking Prescribed by: MARY JO DICK on 11/18/201203 Last Action: Discontinued Gabapentin (Gabapentin) 600 Mg Tablet, 600 MG PO HS, (Reported) Discontinued Reason: No Longer Taking Entered as Reported by: CAROL HAUSER on 09/21/21 0918 Last Action: Discontinued Hydrocodone/Acetaminophen (Hydrocodone-Acetamin 5-325 mg) 1 Each Tablet, 1 TAB PO Q6H PRN for PAIN-SEVERE (9-10) Discontinued Reason: No Longer Taking Prescribed by: MARY JO DICK on 11/18/201203 Last Action: Discontinued Hydrocodone/Acetaminophen (Hydrocodone-Acetamin 5-325 mg) 1 Each Tablet, 1 TAB PO Q4H PRN for PAIN-MODERATE (5-7) Discontinued Reason: No Longer Taking Prescribed by: DIANA MORALES on 09/26/21 0859 Last Action: Discontinued Levothyroxine Sodium (Levothyroxine Sodium) 75 Mcg Tablet, 75 MCG PO DAILY Discontinued Reason: No Longer Taking Prescribed by: MARY JO DICK on 11/18/201203 Last Action: Discontinued Metoclopramide HCl (Metoclopramide HCl) 10 Mg Tablet, 10 MG PO QIDACHS PRN for NAUSEA/VOMITING-3RD LINE Discontinued Reason: No Longer Taking Prescribed by: MARY JO DICK on 11/18/201203 Last Action: Discontinued Metoprolol Succinate (Metoprolol Succinate) 25 Mg Tab.er.24h, 50 MG PO DAILY Discontinued Reason: No Longer Taking Prescribed by: MARY JO DICK on 11/18/201203 Last Action: Discontinued Molnupiravir (Molnupiravir (Eua)) 200 Mg Capsule, 800 MG PO BID Discontinued Reason: No Longer Taking Prescribed by: REGLA LAWRENCE on 06/08/23 7896 Last Action: Discontinued Nitroglycerin (Nitroglycerin) 0.4 Mg Tab.subl, 0.4 MG PO UD PRN for CHEST PAIN (ANGINA), (Reported) Discontinued Reason: No Longer Taking Entered as Reported by: EMELIA JOHNSON on 06/16/20 1110 Last Action: Discontinued Pantoprazole Sodium (Pantoprazole Sodium) 40 Mg Tablet.dr, 40 MG PO DAILY Discontinued Reason: No Longer Taking Prescribed by: MARY JO DICK on 11/18/201203 Last Action: Discontinued Potassium Chloride (Potassium Chloride) 20 Meq Tab.er.prt, 20 MEQ PO TID Discontinued Reason: No Longer Taking Prescribed by: MARY JO IDCK on 11/18/201203 Last Action: Discontinued Prednisone (Prednisone) 10 Mg Tab, 10 MG PO DAILY Discontinued Reason: No Longer Taking Prescribed by: MARY JO DICK on 11/18/201203 Last Action: Discontinued Sumatriptan Succinate (Sumatriptan Succinate) 100 Mg Tablet, 50 MG PO Q2H PRN for MIGRAINE Discontinued Reason: No Longer Taking Prescribed by: MARY JO DICK on 11/18/201203 Last Action: Discontinued Tramadol HCl (Tramadol HCl) 50 Mg Tablet, 50-100 MG PO Q6H PRN for PAIN-MODERATE (5-7) Discontinued Reason: No Longer Taking Prescribed by: MARY JO DICK on 1/14/21 1204 Last Action: Discontinued Trazodone HCl (Trazodone HCl) 50 Mg Tablet, 50 MG PO HS Discontinued Reason: No Longer Taking Prescribed by: MARY JO DICK on 11/18/20 1204 Last Action: Discontinued Past Imemaqe-Dfvzuv-Gwymxa Hx Patient Social History Marrital Status: single Employed/Student: retired Family Medical History Patient reports no known family medical history. Review of Systems Constitutional: see HPI Physical Exam General Appearance: No Apparent Distress, WD/WN, Chronically ill Respiratory: Lungs Clear, Normal Breath Sounds Cardiovascular: Regular Rate, Rhythm Neurologic/Psychiatric: Alert, Oriented x3 Assessment/Plan Assessment and Plan Assessment: N/V Post COVID Dehydration Plan: IVF Supportive care Admission Diagnosis Admission Status: Observation Supervisory-Addendum Brief Verification & Attestation Participated in pt care: history, MDM, physical Personally performed: exam, history, MDM, supervision of care Care discussed with: Medical Student Procedures: n/a Results interpretation: Verified all documentation Verification and Attestation of Medical Student E/M Service A medical student performed and documented this service in my presence. I reviewed and verified all information documented by the medical student and made modifications to such information, when appropriate. I personally performed the physical exam and medical decision making. Mary Jo Dick, Jun 15, 2023,05:09 JUNG Jun 14, 2023 14:32 MARY JO DICK DO Jun 15, 2023 05:10
[2023-06-14 14:43] VITALS: BP 135/83
[2023-06-14] MEDS ORDERED: ANTACID SUSPENSION 30 ML UDC PO PRN (14:45)
[2023-06-14] MEDS ORDERED: oxyCODONE IMMEDIATE RELEASE 5 MG TABLET PO PRN (14:45)
[2023-06-14] MEDS ORDERED: ACETAMINOPHEN 325 MG TABLET PO PRN (14:45)
[2023-06-14] MEDS ORDERED: BISACODYL 10 MG SUPPOSITORY PR PRN (14:45)
[2023-06-14] MEDS ORDERED: polyethylene glycoL POWDER 17 GM (MIRALAX) PACK PO PRN (14:45)
[2023-06-14] MEDS ORDERED: diphenhydrAMINE INJ 50 MG/ML VIAL IVP PRN (14:45)
[2023-06-14] MEDS ORDERED: MELATONIN 3 MG TABLET PO PRN (14:45)
[2023-06-14] MEDS ORDERED: CALCIUM CARBONATE 500 MG CHEW TABLET PO PRN (14:45)
[2023-06-14] MEDS ORDERED: MILK OF MAGNESIA 400 MG/5 ML 30 ML UDC PO PRN (14:45)
[2023-06-14] MEDS ORDERED: ONDANSETRON 4 MG/2 ML (SDV) Z0FRAN IV PRN (14:45)
[2023-06-14] MEDS ORDERED: HYDROmorphone INJECTION 2 MG/ML VIAL IV PRN (14:45)
[2023-06-14] MEDS ORDERED: diphenhydrAMINE 25 MG TABLET PO PRN (14:45)
[2023-06-14] MEDS ORDERED: LACTULOSE SYRUP 10GM/15ML 30ML UDC PO PRN (14:45)
[2023-06-14 15:08] VITALS: BP 134/80
[2023-06-14 15:23] VITALS: BP 134/80
[2023-06-14] MEDS: NS IV 1000 ML 1,000 ML IV SCH (15:58)
[2023-06-14] MEDS: ENOXAPARIN 40 MG/0.4 ML SYRINGE SC SCH (15:58)
[2023-06-14] MEDS ORDERED: MIRT-68 PO (16:02)
[2023-06-14] MEDS ORDERED: ATOR40TA70 PO (16:02)
[2023-06-14] MEDS ORDERED: GABA300C PO ×2 (16:02)
[2023-06-14] MEDS ORDERED: DIVA-21 PO (16:02)
[2023-06-14] MEDS ORDERED: METO50TA7 PO (16:02)
[2023-06-14] MEDS ORDERED: POTA-330 PO (16:02)
[2023-06-14] MEDS ORDERED: MTC10T PO ×2 (16:02)
[2023-06-14] MEDS ORDERED: TRAM100T34 PO (16:02)
[2023-06-14] MEDS ORDERED: LEVO75TA6 PO (16:02)
[2023-06-14] MEDS ORDERED: ASPI-1238 PO (16:02)
[2023-06-14] MEDS ORDERED: MOLN200C PO (16:02)
[2023-06-14] MEDS ORDERED: MULT-1067 PO (16:02)
[2023-06-14] MEDS ORDERED: FURO40TA4 PO (16:02)
[2023-06-14] MEDS ORDERED: PANT40TA52 PO (16:02)
[2023-06-14] MEDS: ONDANSETRON 4 MG (ZOFRAN) ORAL DISSOLVE TAB PO PRN (18:27)
[2023-06-14] MEDS ORDERED: PROMETHAZINE INJ 25 MG/ML (PHENERGAN) AMP IM PRN (19:00)
[2023-06-14] MEDS ORDERED: SCOPOLAMINE 1.5 MG (TRANSDERM-SCOP) PATCH TD PRN (19:00)
[2023-06-14] MEDS ORDERED: SCOPOLAMINE PATCH REMOVAL TP PRN (19:15)
[2023-06-14] MEDS: DOCUSATE SODIUM 100 MG CAPSULE PO SCH (19:35)
[2023-06-14] MEDS: SENNOSIDES 8.6 MG (SENOKOT) TAB PO SCH (19:35)
[2023-06-14 19:46] VITALS: BP 162/82
[2023-06-14 23:28] VITALS: BP 145/79
[2023-06-15] MEDS: NS IV 1000 ML 1,000 ML IV SCH ×4 (00:10→15:37)
[2023-06-15 03:00] VITALS: BP 138/74
[2023-06-15 05:13] LABS: BASOPHILS % (AUTO) 0 % (0-10); EOSINOPHILS # (AUTO) 0.3 10^3/uL (0.0-0.3); EOSINOPHILS % (AUTO) 5 % (0-10); HEMATOCRIT 34 % (35-52); HEMOGLOBIN 11.1 g/dL (11.5-16.0); LYMPHOCYTES # (AUTO) 1.5 10^3/uL (1.0-4.0); LYMPHOCYTES % (AUTO) 27 % (12-44); MEAN CORPUSCULAR HEMOGLOBIN 30 pg (25-34); MEAN CORPUSCULAR HGB CONC 32 g/dL (32-36); MEAN CORPUSCULAR VOLUME 92 fL (80-99); MEAN PLATELET VOLUME 9.8 fL (9.0-12.2); MONOCYTES # (AUTO) 0.5 10^3/uL (0.0-1.0); MONOCYTES % (AUTO) 8 % (0-12); NEUTROPHILS # (AUTO) 3.4 10^3/uL (1.8-7.8); NEUTROPHILS % (AUTO) 60 % (42-75); PLATELET COUNT 177 10^3/uL (130-400); WHITE BLOOD COUNT 5.6 10^3/uL (4.3-11.0)
[2023-06-15 05:24] LABS: ALBUMIN 3.1 GM/DL (3.2-4.5); POTASSIUM 2.9 MMOL/L (3.6-5.0)
[2023-06-15 05:25] LABS: CALCIUM 8.2 MG/DL (8.5-10.1)
[2023-06-15 05:26] LABS: TOTAL PROTEIN 5.2 GM/DL (6.4-8.2)
[2023-06-15 05:28] LABS: BILIRUBIN,TOTAL 0.9 MG/DL (0.1-1.0)
[2023-06-15 05:30] LABS: CREATININE SERUM 0.79 MG/DL (0.60-1.30)
[2023-06-15 07:04] VITALS: BP 143/92
[2023-06-15] MEDS ORDERED: MAGNESIUM 1 GM/100 ML IVPB 100 ML IV ONE (07:15)
[2023-06-15] MEDS: POTASSIUM CL 10MEQ/50ML IVPB 50 ML IV SCH ×4 (07:29→10:42)
--- NOTE | 2023-06-15 08:08 | Physical Therapy Evaluation ---
PT Evaluation-General Medical Diagnosis Admission Date Jun 14, 2023 at 14:17 Medical Diagnosis: vomiting Onset Date: Jun 14, 2023 Therapy Diagnosis Therapy Diagnosis: debility Height/Weight Height (Feet): 5 Height (Inches): 2.00 Weight (Pounds): 125 Weight (Ounces): 0 Precautions Precautions/Isolations: Fall Prevention, Standard Precautions Referral Physician: Jazmin Reason for Referral: Evaluation/Treatment Medical History Pertinent Medical History: Arthritis, Dementia, Fractures, GERD, Neuropathy, Rheumatoid Arthritis Additional Medical History extensive psych issues Current History ER secondary to vomiting (covid last week) Reviewed History: Yes Social History Home: Apartment Current Living Status: Alone (caregiver) Entry Into Home: Level Entry Prior Prior Level of Function SCALE: Activities may be completed with or without assistive devices. 9-Vdsxchpkvh-wdwdabv completes the activity by him/herself with no assistance from a helper. 5-Set-up or Clean-up Assistance-helper sets up or cleans up; patient completes activity. [place] assists only prior to or following the activity. 4-Supervision or Touching Assistance-helper provides verbal cues and/or touching/steadying and/or contact guard assistance as patient completes activity. Assistance may be provided throughout the activity or intermittently. 3-Partial/Moderate Assistance-helper does LESS THAN HALF the effort. [place] lifts, holds or supports trunk or limbs, but provides less than half the effort. 2-Substantial/Maximal Assistance-helper does MORE THAN HALF the effort. [place] lifts or holds trunk or limbs and provides more than half the effort. 4-Ajzkjkecm-pcrkzi does ALL the effort. Patient does none of the effort to complete the activity. Or, the assistance of 2 or more helpers is required for the patient to complete the activity. If activity was not attempted, code reason: 7-Patient Refused. 9-Not Applicable-not attempted and the patient did not perform the activity before the current illness, exacerbation or injury. 10-Not Attempted due to Environmental Limitations-(lack of equipment, weather restraints, etc.). 88-Not Attempted due to Medical Conditions or Safety Concerns. Bed Mobility: 6 Transfers (B,C,W/C): 6 Gait: 6 Indoor Mobility (Ambulation): Independent Prior Devices Use: Walker caregiver assists with shopping, cooking, laundry, etc PT Evaluation-Current Subjective Patient agrees to PT. Objective Patient Orientation: Person, Time, Situation Attachments: IV ROM/Strength ROM Lower Extremities bilateral LE WFL Strength Lower Extremities 4-/5 grossly bilateral LE all planes Integumentary/Posture Bowel Incontinence: No Bladder Incontinence: No Posture WFL Neuromuscular (Tone, Coordination, Reflexes) grossly intact Sensory Vision: Functional Hearing: Functional Transfers Lying to Sitting/Side of Bed(Q: 4 Sit to Stand (QC): 4 Chair/Fyx-lp-Ymvqy Xfer(QC): 4 SBA with all mobility Gait Mode of Locomotion: Walk Anticipated Mode of Locomotion: Walk Walk 10 feet (QC): 4 Walk 50 ft with 2 Turns(QC): 4 Gait Assistive Device: FWW Comments/Gait Description slow, safe and functional Balance Sitting Static: Normal Sitting Dynamic: Normal Standing Static: Normal Standing Dynamic: Normal Assessment/Needs Patient will be seen short term by skilled PT to address functional mobility to ensure safe return to home at maximum LOF. Rehab Potential: Fair PT Assisted Goals Toll Service Observer Goals PT Toll Service Observer Goals Time Frame: Jun 23, 2023 Roll Left & Right (QC): 6 Sit to Lying (QC): 6 Lying-Sitting on Side/Bed(QC): 6 Sit to Stand (QC): 6 Chair/Oai-er-Elvvd Xfer(QC): 6 Toilet Transfer (QC): 6 Walk 10 feet (QC): 6 Walk 50ft with 2 Turns (QC): 6 Walk 150 ft (QC): 6 PT Plan Problem List Problem List: Activity Tolerance Treatment/Plan Treatment Plan: Continue Plan of Care Treatment Plan: Bed Mobility, Education, Functional Activity Rodolfo, Functional Strength, Gait, Safety, Therapeutic Exercise, Transfers Treatment Duration: Jun 23, 2023 Frequency: 6 times per week Estimated Hrs Per Day: .25 hour per day Patient and/or Family Agrees t: Yes Time Time In: 745 Time Out: 758 DATE: Jun 15, 2023 Total Billed Treatment Time: 13 Total Billed Treatment 1 visit EVMod 13 min SEVERIANO DOTSON PT Jun 15, 2023 08:08
[2023-06-15] MEDS: SENNOSIDES 8.6 MG (SENOKOT) TAB PO SCH ×2 (08:37→19:37)
[2023-06-15] MEDS: DOCUSATE SODIUM 100 MG CAPSULE PO SCH ×2 (08:37→19:37)
[2023-06-15] MEDS: ONDANSETRON 4 MG (ZOFRAN) ORAL DISSOLVE TAB PO PRN (08:47)
[2023-06-15 11:18] VITALS: BP 131/79
[2023-06-15] MEDS: METOCLOPRAMIDE 10 MG TABLET PO SCH ×2 (11:41→19:37)
--- NOTE | 2023-06-15 12:29 | Progress Note - Hospitalist ---
JUNG 06/15/23 1228: Subjective HPI/CC On Admission Date Seen by Provider: Jun 15, 2023 Time Seen by Provider: 11:15 CC: Nausea and vomiting Post COVID-19 infection Subjective/Events-last exam Patient still looked very weak today, but said she felt better than yesterday. She says she tried to eat jello earlier today but still ended up throwing it all up. There has still been continuous vomiting since she arrived with no blood, but she reports no more dry heaving today. Her nausea is also back but not as prominent as when she initially came in and her diarrhea has also decreased. Patient is still not able to raise herself from the bed, walk, put on her clothes or wipe herself down, but her caregiver has come with her to take of all this for her. She generally appears very sad and fatigued but her caregiver also sates that she has not be able to eat any food for the past week. Review of Systems General: Fatigue, Malaise; No Appetite Gastrointestinal: Nausea, Vomiting Focused Exam Lactate Level 06/14/23 12:40: Lactic Acid Level 2.45*H 06/14/23 15:47: Lactic Acid Level 0.74 Objective Exam Vital Signs Vital Signs Date Time Temp Pulse Resp B/P (MAP) Pulse Ox O2 Delivery O2 Flow Rate FiO2 06/15/23 11:18 36.2 71 18 131/79 (96) 95 Room Air Capillary Refill : Less Than 3 Seconds General Appearance: No Apparent Distress Respiratory: Chest Non Tender, Lungs Clear, Normal Breath Sounds, No Accessory Muscle Use, No Respiratory Distress Gastrointestinal: No Organomegaly, No Pulsatile Mass, Non Tender, Soft, Abnormal Bowel Sounds Neurologic/Psychiatric: Depressed Affect, Motor Weakness Skin: Normal Color, Pallor Results/Procedures Lab Laboratory Tests 06/14/23 12:40 06/15/23 04:52 Patient resulted labs reviewed. Assessment/Plan Assessment and Plan Assess & Plan/Chief Complaint Assessment: Nausea and vomiting post COVID-19 infection dehydration Diarrhea fatigue/malaise Plan: IVF Supportive care Clinical Quality Measures Admission Status Admission Dx Assesment: COVID-19 post infectious cough hiatial hernia lactic acidosis GERD exacerbation Plan: IV fluids and nutrition monitor airway and labs Admission Status: Inpatient Order (span 2 midnights) Reason for Inpatient Admission: Nausea, vomiting and weakness post COVID-19 infection MARY JO DICK DO 06/16/23 0625: Supervisory-Addendum Brief Verification & Attestation Participated in pt care: history, MDM, physical Personally performed: exam, history, MDM, supervision of care Care discussed with: Medical Student Procedures: n/a Results interpretation: Verified all documentation Verification and Attestation of Medical Student E/M Service A medical student performed and documented this service in my presence. I reviewed and verified all information documented by the medical student and made modifications to such information, when appropriate. I personally performed the physical exam and medical decision making. Mary Jo Dick, Jun 16, 2023,06:25 JUNG Jun 15, 2023 12:28 MARY JO DICK DO Jun 16, 2023 06:25
[2023-06-15] MEDS: POTASSIUM CHLORIDE 20 MEQ TABLET PO SCH ×2 (12:41→17:34)
[2023-06-15] MEDS: ENOXAPARIN 40 MG/0.4 ML SYRINGE SC SCH (15:01)
[2023-06-15 15:57] VITALS: BP 128/83
[2023-06-15 19:03] VITALS: BP 132/76
[2023-06-15] MEDS: GABAPENTIN 300 MG CAPSULE PO SCH (19:37)
[2023-06-15] MEDS: MONTELUKAST 10 MG TABLET PO SCH (19:37)
[2023-06-15] MEDS: MIRTAZAPINE 15 MG TABLET PO SCH (19:37)
[2023-06-15] MEDS ORDERED: TRAMADOL HCL 100 MG PO SCH (21:00)
[2023-06-16] VITALS (7 sets, daily range): BP systolic 120–157; BP diastolic 59–85
[2023-06-16] MEDS: NS IV 1000 ML 1,000 ML IV SCH (01:07)
[2023-06-16 05:18] LABS: BASOPHILS % (AUTO) 0 % (0-10); EOSINOPHILS # (AUTO) 0.3 10^3/uL (0.0-0.3); EOSINOPHILS % (AUTO) 4 % (0-10); HEMATOCRIT 33 % (35-52); HEMOGLOBIN 10.7 g/dL (11.5-16.0); LYMPHOCYTES # (AUTO) 1.4 10^3/uL (1.0-4.0); LYMPHOCYTES % (AUTO) 25 % (12-44); MEAN CORPUSCULAR HEMOGLOBIN 30 pg (25-34); MEAN CORPUSCULAR HGB CONC 32 g/dL (32-36); MEAN CORPUSCULAR VOLUME 92 fL (80-99); MEAN PLATELET VOLUME 9.9 fL (9.0-12.2); MONOCYTES # (AUTO) 0.6 10^3/uL (0.0-1.0); MONOCYTES % (AUTO) 10 % (0-12); NEUTROPHILS # (AUTO) 3.4 10^3/uL (1.8-7.8); NEUTROPHILS % (AUTO) 60 % (42-75); PLATELET COUNT 163 10^3/uL (130-400); WHITE BLOOD COUNT 5.7 10^3/uL (4.3-11.0)
[2023-06-16 05:26] LABS: ALBUMIN 3.1 GM/DL (3.2-4.5)
[2023-06-16 05:27] LABS: CALCIUM 8.1 MG/DL (8.5-10.1)
[2023-06-16] MEDS: LEVOTHYROXINE 75 MCG TABLET PO SCH (05:27)
[2023-06-16 05:28] LABS: TOTAL PROTEIN 5.2 GM/DL (6.4-8.2)
[2023-06-16 05:30] LABS: BILIRUBIN,TOTAL 0.9 MG/DL (0.1-1.0)
[2023-06-16 05:32] LABS: CREATININE SERUM 0.75 MG/DL (0.60-1.30)
[2023-06-16] MEDS ORDERED: MAGNESIUM 1 GM/100 ML IVPB 100 ML IV ONE (06:30)
--- NOTE | 2023-06-16 06:30 | Progress Note - Hospitalist ---
Subjective HPI/CC On Admission Date Seen by Provider: Jun 16, 2023 Time Seen by Provider: 11:00 CC: Nausea and vomiting Post COVID-19 infection Subjective/Events-last exam Patient doing a lot better Still very weak but did walk with PT Hep-Lock in IV fluid Advancing diet Replacing potassium Review of Systems General: Fatigue, Malaise Pulmonary: Cough Focused Exam Lactate Level 06/14/23 12:40: Lactic Acid Level 2.45*H 06/14/23 15:47: Lactic Acid Level 0.74 Objective Exam Vital Signs Vital Signs Date Time Temp Pulse Resp B/P (MAP) Pulse Ox O2 Delivery O2 Flow Rate FiO2 06/16/23 15:21 37.6 68 20 124/59 (80) 93 Room Air Capillary Refill : Less Than 3 Seconds General Appearance: No Apparent Distress, WD/WN, Chronically ill Respiratory: Lungs Clear, Normal Breath Sounds Cardiovascular: Regular Rate, Rhythm Neurologic/Psychiatric: Alert, Oriented x3, No Motor/Sensory Deficits, Normal Mood/Affect Results/Procedures Lab Laboratory Tests 06/16/23 04:57 Patient resulted labs reviewed. Assessment/Plan Assessment and Plan Assess & Plan/Chief Complaint Assessment: Refractory nausea and vomiting Post COVID Severe weakness Severe hypokalemia Plan: Hep-Lock IV fluid Advance diet Ambulate Replace potassium Clinical Quality Measures Admission Status Admission Dx Assessment: N/V Post COVID Dehydration Plan: IVF Supportive care VINNIE DICK DO Jun 16, 2023 06:30
[2023-06-16] MEDS: POTASSIUM CL 10MEQ/50ML IVPB 50 ML IV SCH ×6 (08:24→14:08)
[2023-06-16] MEDS: LORATADINE 10 MG TABLET PO SCH (08:29)
[2023-06-16] MEDS: POTASSIUM CHLORIDE 20 MEQ TABLET PO SCH ×3 (08:29→18:06)
[2023-06-16] MEDS: PANTOPRAZOLE 40 MG (PROTONIX) TAB PO SCH (08:29)
[2023-06-16] MEDS: THERAPEUTIC MULTIVITAMIN W/MINERALS TABLET PO SCH (08:29)
[2023-06-16] MEDS: DIVALPROEX 250 MG EXTENDED RELEASE TABLET PO SCH (08:30)
[2023-06-16] MEDS: GABAPENTIN 300 MG CAPSULE PO SCH ×2 (08:30→20:23)
[2023-06-16] MEDS: ASPIRIN enteric coated 81MG TABLET PO SCH (08:30)
[2023-06-16] MEDS: METOCLOPRAMIDE 10 MG TABLET PO SCH ×3 (08:30→20:23)
[2023-06-16] MEDS: DOCUSATE SODIUM 100 MG CAPSULE PO SCH ×2 (08:32→19:11)
[2023-06-16] MEDS: SENNOSIDES 8.6 MG (SENOKOT) TAB PO SCH ×2 (08:32→19:11)
--- NOTE | 2023-06-16 10:10 | Physical Therapy Daily Note ---
PT Daily Note-Current Subjective Pt. up in chair, agrees to PT. No c/o pain. Pain Section J - Health Conditions 1. Rarely or not at all 2. Occasionally 3. Frequently 4. Almost constantly 8. Unable to answer Pain Effect on Sleep: 1 Pain Interference with Therapy: 1 Pain Interference w/Day-to-Day: 1 Mental Status Patient Orientation: Person Attachments: IV Transfers SCALE: Activities may be completed with or without assistive devices. 1-Lfdtgwkkkh-qmoooju completes the activity by him/herself with no assistance from a helper. 5-Set-up or Clean-up Assistance-helper sets up or cleans up; patient completes activity. [place] assists only prior to or following the activity. 4-Supervision or Touching Assistance-helper provides verbal cues and/or touching/steadying and/or contact guard assistance as patient completes activity. Assistance may be provided throughout the activity or intermittently. 3-Partial/Moderate Assistance-helper does LESS THAN HALF the effort. [place] lifts, holds or supports trunk or limbs, but provides less than half the effort. 2-Substantial/Maximal Assistance-helper does MORE THAN HALF the effort. [place] lifts or holds trunk or limbs and provides more than half the effort. 9-Itfgwaikx-hkcugv does ALL the effort. Patient does none of the effort to complete the activity. Or, the assistance of 2 or more helpers is required for the patient to complete the activity. If activity was not attempted, code reason: 7-Patient Refused. 9-Not Applicable-not attempted and the patient did not perform the activity before the current illness, exacerbation or injury. 10-Not Attempted due to Environmental Limitations-(lack of equipment, weather restraints, etc.). 88-Not Attempted due to Medical Conditions or Safety Concerns. Sit to Stand (QC): 4 Weight Bearing Right Lower Extremity: Right Full Weight Bearing Left Lower Extremity: Left Full Weight Bearing Gait Training Does the Patient Walk?: Yes Distance: 100 ft Walk 50 ft with 2 Turns(QC): 4 Gait Persons Needed: 1 Gait Assistive Device: FWW Assessment Current Status: Good Progress Pt. was steady with ambulation but takes slow steps and decreased step length with narrow VIVIEN. Pt. returned to bedside chair with call light and all needs met. PT Computed Tomography Technician Goals Computed Tomography Technician Goals PT [facility] Goals Time Frame: Jun 23, 2023 Roll Left & Right (QC): 6 Sit to Lying (QC): 6 Lying-Sitting on Side/Bed(QC): 6 Sit to Stand (QC): 6 Chair/Zog-zf-Diigl Xfer(QC): 6 Toilet Transfer (QC): 6 Walk 10 feet (QC): 6 Walk 50ft with 2 Turns (QC): 6 Walk 150 ft (QC): 6 PT Plan Treatment/Plan Treatment Plan: Continue Plan of Care Treatment Plan: Bed Mobility, Education, Functional Activity Rodolfo, Functional Strength, Gait, Safety, Therapeutic Exercise, Transfers Treatment Duration: Jun 23, 2023 Frequency: 6 times per week Estimated Hrs Per Day: .25 hour per day Patient and/or Family Agrees t: Yes Time Time In: 812 Time Out: 822 DATE: Jun 16, 2023 Total Billed Treatment Time: 10 Total Billed Treatment 1, GT 10' [place] DELEON PT Jun 16, 2023 10:10
[2023-06-16] MEDS: ENOXAPARIN 40 MG/0.4 ML SYRINGE SC SCH (15:37)
[2023-06-16] MEDS: MIRTAZAPINE 15 MG TABLET PO SCH (20:23)
[2023-06-16] MEDS: MONTELUKAST 10 MG TABLET PO SCH (20:23)
[2023-06-17 05:16] LABS: BASOPHILS % (AUTO) 0 % (0-10); EOSINOPHILS # (AUTO) 0.3 10^3/uL (0.0-0.3); EOSINOPHILS % (AUTO) 5 % (0-10); HEMATOCRIT 34 % (35-52); LYMPHOCYTES # (AUTO) 1.3 10^3/uL (1.0-4.0); LYMPHOCYTES % (AUTO) 25 % (12-44); MEAN CORPUSCULAR HEMOGLOBIN 30 pg (25-34); MEAN CORPUSCULAR HGB CONC 32 g/dL (32-36); MEAN CORPUSCULAR VOLUME 93 fL (80-99); MEAN PLATELET VOLUME 10.5 fL (9.0-12.2); MONOCYTES # (AUTO) 0.6 10^3/uL (0.0-1.0); MONOCYTES % (AUTO) 11 % (0-12); NEUTROPHILS # (AUTO) 3.1 10^3/uL (1.8-7.8); NEUTROPHILS % (AUTO) 59 % (42-75); PLATELET COUNT 162 10^3/uL (130-400); WHITE BLOOD COUNT 5.3 10^3/uL (4.3-11.0)
[2023-06-17 05:28] LABS: ALBUMIN 2.9 GM/DL (3.2-4.5)
[2023-06-17 05:29] LABS: CALCIUM 8.4 MG/DL (8.5-10.1)
[2023-06-17 05:30] LABS: TOTAL PROTEIN 5.3 GM/DL (6.4-8.2)
[2023-06-17 05:32] LABS: BILIRUBIN,TOTAL 0.8 MG/DL (0.1-1.0)
[2023-06-17 05:34] LABS: CREATININE SERUM 0.77 MG/DL (0.60-1.30)
[2023-06-17] MEDS: LEVOTHYROXINE 75 MCG TABLET PO SCH (06:05)
[2023-06-17 07:39] VITALS: BP 125/72
--- NOTE | 2023-06-17 07:53 | Progress Note - Hospitalist ---
Subjective HPI/CC On Admission Date Seen by Provider: Jun 17, 2023 Time Seen by Provider: 11:00 CC: Nausea and vomiting Post COVID-19 infection Subjective/Events-last exam Patient doing a lot better Sitting in chair Still pretty weak No falls Eating and drinking well Review of Systems General: Fatigue, Malaise Focused Exam Lactate Level Objective Exam Vital Signs Vital Signs Date Time Temp Pulse Resp B/P (MAP) Pulse Ox O2 Delivery O2 Flow Rate FiO2 06/17/23 15:59 36.7 66 92 21 06/17/23 15:30 20 110/60 (77) Room Air Capillary Refill : Less Than 3 Seconds General Appearance: No Apparent Distress, WD/WN, Chronically ill Respiratory: Lungs Clear, Normal Breath Sounds Cardiovascular: Regular Rate, Rhythm Neurologic/Psychiatric: Alert, Oriented x3, No Motor/Sensory Deficits, Depressed Affect Results/Procedures Lab Laboratory Tests 06/17/23 04:55 Patient resulted labs reviewed. Assessment/Plan Assessment and Plan Assess & Plan/Chief Complaint Assessment: Refractory nausea and vomiting Post COVID Severe weakness Severe hypokalemia Plan: Hep-Lock IV fluid Advance diet Ambulate Replace potassium Clinical Quality Measures Admission Status Admission Dx Assessment: N/V Post COVID Dehydration Plan: IVF Supportive care VINNIE DICK DO Jun 17, 2023 07:52
[2023-06-17] MEDS: PANTOPRAZOLE 40 MG (PROTONIX) TAB PO SCH (08:02)
[2023-06-17] MEDS: METOCLOPRAMIDE 10 MG TABLET PO SCH ×3 (08:02→19:56)
[2023-06-17] MEDS: SENNOSIDES 8.6 MG (SENOKOT) TAB PO SCH ×2 (08:02→19:20)
[2023-06-17] MEDS: POTASSIUM CHLORIDE 20 MEQ TABLET PO SCH ×3 (08:02→18:39)
[2023-06-17] MEDS: LORATADINE 10 MG TABLET PO SCH (08:03)
[2023-06-17] MEDS: GABAPENTIN 300 MG CAPSULE PO SCH ×2 (08:03→19:56)
[2023-06-17] MEDS: THERAPEUTIC MULTIVITAMIN W/MINERALS TABLET PO SCH (08:03)
[2023-06-17] MEDS: DIVALPROEX 250 MG EXTENDED RELEASE TABLET PO SCH (08:03)
[2023-06-17] MEDS: ASPIRIN enteric coated 81MG TABLET PO SCH (08:03)
[2023-06-17] MEDS: DOCUSATE SODIUM 100 MG CAPSULE PO SCH ×2 (08:03→19:20)
[2023-06-17 11:42] VITALS: BP 126/64
[2023-06-17] MEDS: ENOXAPARIN 40 MG/0.4 ML SYRINGE SC SCH (14:57)
[2023-06-17 15:30] VITALS: BP 110/60
[2023-06-17 15:59] VITALS: BP 110/60
[2023-06-17] MEDS: MONTELUKAST 10 MG TABLET PO SCH (19:56)
[2023-06-17] MEDS: MIRTAZAPINE 15 MG TABLET PO SCH (19:56)
[2023-06-17 23:45] VITALS: BP 110/53
[2023-06-18] MEDS: LEVOTHYROXINE 75 MCG TABLET PO SCH (05:32)
[2023-06-18 05:46] LABS: BASOPHILS % (AUTO) 0 % (0-10); EOSINOPHILS # (AUTO) 0.2 10^3/uL (0.0-0.3); EOSINOPHILS % (AUTO) 3 % (0-10); HEMATOCRIT 34 % (35-52); HEMOGLOBIN 10.9 g/dL (11.5-16.0); LYMPHOCYTES # (AUTO) 1.8 10^3/uL (1.0-4.0); LYMPHOCYTES % (AUTO) 30 % (12-44); MEAN CORPUSCULAR HEMOGLOBIN 30 pg (25-34); MEAN CORPUSCULAR HGB CONC 32 g/dL (32-36); MEAN CORPUSCULAR VOLUME 93 fL (80-99); MEAN PLATELET VOLUME 11.1 fL (9.0-12.2); MONOCYTES # (AUTO) 0.5 10^3/uL (0.0-1.0); MONOCYTES % (AUTO) 8 % (0-12); NEUTROPHILS # (AUTO) 3.4 10^3/uL (1.8-7.8); NEUTROPHILS % (AUTO) 58 % (42-75); PLATELET COUNT 163 10^3/uL (130-400); WHITE BLOOD COUNT 5.9 10^3/uL (4.3-11.0)
[2023-06-18 06:02] LABS: POTASSIUM 4.1 MMOL/L (3.6-5.0)
[2023-06-18 06:03] LABS: CALCIUM 8.4 MG/DL (8.5-10.1)
[2023-06-18 06:04] LABS: TOTAL PROTEIN 5.4 GM/DL (6.4-8.2)
[2023-06-18 06:06] LABS: BILIRUBIN,TOTAL 0.7 MG/DL (0.1-1.0)
[2023-06-18 06:08] LABS: CREATININE SERUM 0.79 MG/DL (0.60-1.30)
[2023-06-18 07:59] VITALS: BP 114/57
[2023-06-18] MEDS: THERAPEUTIC MULTIVITAMIN W/MINERALS TABLET PO SCH (08:13)
[2023-06-18] MEDS: POTASSIUM CHLORIDE 20 MEQ TABLET PO SCH (08:13)
[2023-06-18] MEDS: METOCLOPRAMIDE 10 MG TABLET PO SCH ×2 (08:13→11:00)
[2023-06-18] MEDS: DIVALPROEX 250 MG EXTENDED RELEASE TABLET PO SCH (08:14)
[2023-06-18] MEDS: GABAPENTIN 300 MG CAPSULE PO SCH (08:14)
[2023-06-18] MEDS: ASPIRIN enteric coated 81MG TABLET PO SCH (08:14)
[2023-06-18] MEDS: PANTOPRAZOLE 40 MG (PROTONIX) TAB PO SCH (08:15)
[2023-06-18] MEDS: LORATADINE 10 MG TABLET PO SCH (08:15)
[2023-06-18] MEDS: SENNOSIDES 8.6 MG (SENOKOT) TAB PO SCH (08:26)
[2023-06-18] MEDS: DOCUSATE SODIUM 100 MG CAPSULE PO SCH (08:26)
--- NOTE | 2023-06-18 08:48 | Physical Therapy Daily Note ---
PT Daily Note-Current Subjective Patient agrees to PT. Pain Section J - Health Conditions 1. Rarely or not at all 2. Occasionally 3. Frequently 4. Almost constantly 8. Unable to answer Pain Effect on Sleep: 1 Pain Interference with Therapy: 1 Pain Interference w/Day-to-Day: 1 Transfers SCALE: Activities may be completed with or without assistive devices. 4-Xbioiygeyr-khrzmsg completes the activity by him/herself with no assistance from a helper. 5-Set-up or Clean-up Assistance-helper sets up or cleans up; patient completes activity. [place] assists only prior to or following the activity. 4-Supervision or Touching Assistance-helper provides verbal cues and/or touching/steadying and/or contact guard assistance as patient completes activity. Assistance may be provided throughout the activity or intermittently. 3-Partial/Moderate Assistance-helper does LESS THAN HALF the effort. [place] lifts, holds or supports trunk or limbs, but provides less than half the effort. 2-Substantial/Maximal Assistance-helper does MORE THAN HALF the effort. [place] lifts or holds trunk or limbs and provides more than half the effort. 0-Mmlgdpdoc-zmhwhq does ALL the effort. Patient does none of the effort to complete the activity. Or, the assistance of 2 or more helpers is required for the patient to complete the activity. If activity was not attempted, code reason: 7-Patient Refused. 9-Not Applicable-not attempted and the patient did not perform the activity before the current illness, exacerbation or injury. 10-Not Attempted due to Environmental Limitations-(lack of equipment, weather restraints, etc.). 88-Not Attempted due to Medical Conditions or Safety Concerns. Sit to Stand (QC): 4 Weight Bearing Right Lower Extremity: Right Full Weight Bearing Left Lower Extremity: Left Full Weight Bearing Gait Training Distance: 100' Walk 10 feet (QC): 4 Walk 50 ft with 2 Turns(QC): 4 Gait Assistive Device: FWW slow, steady (patient fatigue very quickly) Assessment Patient remains up in recliner with needs met. PT to continue to increase activity as tolerated by patient. Patient fatigues with minimal activity. PT Supervisor Polishing Goals Supervisor Polishing Goals PT [facility] Goals Time Frame: Jun 23, 2023 Roll Left & Right (QC): 6 Sit to Lying (QC): 6 Lying-Sitting on Side/Bed(QC): 6 Sit to Stand (QC): 6 Chair/Sif-fz-Jwcqv Xfer(QC): 6 Toilet Transfer (QC): 6 Walk 10 feet (QC): 6 Walk 50ft with 2 Turns (QC): 6 Walk 150 ft (QC): 6 PT Plan Treatment/Plan Treatment Plan: Continue Plan of Care Treatment Plan: Bed Mobility, Education, Functional Activity Rodolfo, Functional Strength, Gait, Safety, Therapeutic Exercise, Transfers Treatment Duration: Jun 23, 2023 Frequency: 6 times per week Estimated Hrs Per Day: .25 hour per day Patient and/or Family Agrees t: Yes Time Time In: 720 Time Out: 730 DATE: Jun 18, 2023 Total Billed Treatment Time: 10 Total Billed Treatment 1 visit FA 10 min SEVERIANO DOTSON PT Jun 18, 2023 08:48
[2023-06-18] MEDS ORDERED: ONDA4TAB11 PO (10:27)
--- NOTE | 2023-06-18 10:28 | Discharge Summary ---
Discharge Summary Hospital Course Hospital Course Date of Admission: Jun 15, 2023 at 11:10 Admission Diagnosis : COVID-19 post infectious cough hiatial hernia lactic acidosis GERD exacerbation Nausea and vomiting Dehydration Family Physician/Provider: Sharyn Graham MD Date of Discharge: 06/18/23 Discharge Diagnosis: COVID-19 post infectious cough hiatial hernia lactic acidosis GERD exacerbation Nausea and vomiting Dehydration Hospital Course: 78-year-old female diagnosed with COVID on Jun 08 with symptoms starting the day prior to that came in due to persistent nausea and vomiting, unable to keep anything down, with generalized weakness. She received IV fluids and by d/c was able to keep down solid foods and liquid well. She has caregiver 40 hours per week and declined home health care given that. Labs and Pending Lab Test: Laboratory Tests 06/18/23 05:10: White Blood Count 5.9, Red Blood Count 3.68L, Hemoglobin 10.9L, Hematocrit 34L, Mean Corpuscular Volume 93, Mean Corpuscular Hemoglobin 30, Mean Corpuscular Hemoglobin Concent 32, Red Cell Distribution Width 15.4H, Platelet Count 163, Mean Platelet Volume 11.1, Immature Granulocyte % (Auto) 0, Neutrophils (%) (Auto) 58, Lymphocytes (%) (Auto) 30, Monocytes (%) (Auto) 8, Eosinophils (%) (Auto) 3, Basophils (%) (Auto) 0, Neutrophils # (Auto) 3.4, Lymphocytes # (Auto) 1.8, Monocytes # (Auto) 0.5, Eosinophils # (Auto) 0.2, Basophils # (Auto) 0.0, Immature Granulocyte # (Auto) 0.0, Sodium Level 142, Potassium Level 4.1, Chloride Level 115H, Carbon Dioxide Level 19L, Anion Gap 8, Blood Urea Nitrogen 5L, Creatinine 0.79, Estimat Glomerular Filtration Rate 77, BUN/Creatinine Ratio 6, Glucose Level 89, Calcium Level 8.4L, Corrected Calcium 9.2, Total Bilirubin 0.7, Aspartate Amino Transf (AST/SGOT) 15, Alanine Aminotransferase (ALT/SGPT) 16, Alkaline Phosphatase 65, Total Protein 5.4L, Albumin 3.0L Home Meds Active Ondansetron Odt (Ondansetron) 4 Mg Tab.rapdis 4 Mg PO Q6H PRN Reported Tramadol HCl ER (Tramadol HCl) 100 Mg Tab.er.24h 100 Mg PO HS Neurontin (Gabapentin) 300 Mg Capsule 600 Mg PO HS TAKES 2 (300MG) CAPS Neurontin (Gabapentin) 300 Mg Capsule 300 Mg PO DAILY Centrum Adults Tablet (Multivitamin/Iron/Folic Acid) 18 Mg Iron-400 Mcg Tablet 1 Each PO DAILY Mirtazapine 15 Mg Tablet 15 Mg PO HS Depakote ER (Divalproex Sodium) 500 Mg Tab.er.24h 500 Mg PO DAILY Atorvastatin Calcium 40 Mg Tablet 40 Mg PO DAILY Pantoprazole Sodium 40 Mg Tablet.dr 40 Mg PO DAILY Potassium Chloride 20 Meq Tablet.er 20 Meq PO TID Metoprolol Succinate 50 Mg Tab.er.24h 50 Mg PO DAILY Levothyroxine Sodium 75 Mcg Tablet 75 Mcg PO DAILY Metoclopramide HCl 10 Mg Tablet 20 Mg PO 1200 TAKES 2 (10MG) TABS Metoclopramide HCl 10 Mg Tablet 10 Mg PO BID Furosemide 40 Mg Tablet 40 Mg PO 0800,1200 Molnupiravir (Eua) (Molnupiravir) 200 Mg Capsule 800 Mg PO BID FILLED 06-09-2023 #40/5 DAY SUPPLY Aspirin EC (Aspirin) 81 Mg Tablet.dr 81 Mg PO DAILY Montelukast Sodium 10 Mg Tablet 10 Mg PO DAILY Cetirizine HCl 10 Mg Tablet 10 Mg PO DAILY Assessment/Pt DC Instructions Follow up with primary within a week of discharge. Discharge Diet: Regular Diet Activity as Tolerated: Yes Discharge Physical Examination Allergies: Coded Allergies: Sulfa (Sulfonamide Antibiotics) (Verified Allergy, Unknown, 06/14/23) General Appearance: No Apparent Distress, WD/WN Respiratory: Lungs Clear, Normal Breath Sounds Cardiovascular: Regular Rate, Rhythm Gastrointestinal: Normal Bowel Sounds, Non Tender, Soft Skin: Warm/Dry Neurologic/Psychiatric: Alert, Normal Mood/Affect ROSANNE FUENTES MD Jun 18, 2023 10:27
[2023-06-18] MEDS: ONDANSETRON 4 MG (ZOFRAN) ORAL DISSOLVE TAB PO PRN (11:00)
== END 2023-06-18 11:12 | disposition home or self-care (01) | DRG 392 ==
LOC: EDUNIT# 12:17 → ER 12:19 → 4TH 14:17 → OBSVTOIN 06-15 11:10 → 4TH 06-15 13:54
PROVIDERS: ADMIT Internal Medicine; ATTEND Family Medicine
DX: R11.2 Nausea with vomiting, unspecified (principal); E87.20 Acidosis, unspecified; U09.9 Post COVID-19 condition, unspecified; K44.9 Diaphragmatic hernia without obstruction or gangrene; E86.0 Dehydration; R53.83 Other fatigue; R53.81 Other malaise; E87.6 Hypokalemia; Z79.82 Long term (current) use of aspirin; Z79.899 Other long term (current) drug therapy; J44.9 Chronic obstructive pulmonary disease, unspecified; I50.9 Heart failure, unspecified; I11.0 Hypertensive heart disease with heart failure; G43.909 Migraine, unspecified, not intractable, without status migrainosus; G62.9 Polyneuropathy, unspecified; Z66 Do not resuscitate; K21.9 Gastro-esophageal reflux disease without esophagitis; M81.0 Age-related osteoporosis without current pathological fracture; M06.9 Rheumatoid arthritis, unspecified; G89.29 Other chronic pain; M54.9 Dorsalgia, unspecified; E03.9 Hypothyroidism, unspecified; H40.9 Unspecified glaucoma; F41.9 Anxiety disorder, unspecified; F32.A Depression, unspecified; Z96.612 Presence of left artificial shoulder joint; R05.9 Cough, unspecified
CPT/HCPCS: 36415; 71045; 80053; 83605; 83735; 84484; 85025; 85610; 85730; 93005; 93041; 94760; G0378

== ENCOUNTER 2023-10-14 23:52 | Emergency (ER) | payer MEDICARE, MEDICAID ==
[~2023-10-14 23:52] MED LIST changes: +DIVA-21 PO; +FURO40TA4 PO; -MECL-149 PO; +MECL-291 PO; +METO50TA7 PO; +MIRT-68 PO; +MULT-1067 PO; +TRAM100T34 PO
--- NOTE | 2023-10-15 00:15 | ED Respiratory ---
General Chief Complaint: Respiratory Problems Stated Complaint: SOB Nursing Triage Note: TO ED VIA [facility] FROM HOME. PT STATES SHE WAS DIAGNOSED WITH PNEUMONIA ON Sunday10/12/23 AT URGENT CARE. PT STATES SHE RECEIVED ROCEPHIN SHOT SUNDAY, SUNDAY, AND SUNDAY AT URGENT CARE. PT STATES SHE WAS TOLD TO GO TO ER IF SHE GOT WORSE. PT IN NO ACUTE RESPIRATORY DISTRESS. RESPIRATIONS EVEN AND UNLABORED. O2 SAT 95-96% ON ROOM AIR. Source: patient Exam Limitations: no limitations History of Present Illness Date Seen by Provider: Oct 15, 2023 Time Seen by Provider: 00:14 Initial Comments Patient is a 78-year-old female who presents to the emergency department by ambulance chief complaint feeling short of breath. Patient states that she was diagnosed with pneumonia 3 days ago at urgent care. She has been getting antibiotic injections for the last 3 days at the urgent care. She states her shortness of breath feels a little bit better today than it did on Sunday. She states she noticed it when she went to lay down to go to bed tonight. She has an albuterol inhaler that she has been using twice a day. She denies fevers. She is not coughing up any phlegm. She has had decreased appetite and drinking over the last couple of days, she has not had supper this evening. No reported vomiting or diarrhea. No problems with urination. She tells me she has a history of congestive heart failure and takes Lasix. She has not seen a cement railroad car loader in about 6 months as her cement railroad car loader moved away last year. She denies any swelling or "water retention". She denies chest pain. Does not use supplemental oxygen at home. Has caregivers during the day but not at night. Timing/Duration: this evening Severity: moderate Modifying Factors: Improves With Albuterol Inhaler; Worse With Lying Down Associated Symptoms: No chest pain/soreness, No lightheadedness, No nasal conge stion; shortness of breath Allergies and Home Medications Allergies Coded Allergies: Sulfa (Sulfonamide Antibiotics) (Verified Allergy, Unknown, 06/14/23) Patient Home Medication List Home Medication List Reviewed: Yes Aspirin (Aspirin EC) 81 Mg Tablet.dr, 81 MG PO DAILY, (Reported) Entered as Reported by: EMELIA JOHNSON on 06/14/23 1602 Atorvastatin Calcium (Atorvastatin Calcium) 40 Mg Tablet, 40 MG PO DAILY, (Reported) Entered as Reported by: EMELIA JOHNSON on 06/14/23 160 Cetirizine HCl (Cetirizine HCl) 10 Mg Tablet, 10 MG PO DAILY, (Reported) Entered as Reported by: CAROL HAUSER on 09/21/21917 Divalproex Sodium (Depakote ER) 500 Mg Tab.er.24h, 500 MG PO DAILY, (Reported) Entered as Reported by: EMELIA JOHNSON on 06/14/231601 Furosemide (Furosemide) 40 Mg Tablet, 40 MG PO 0800,1200, (Reported) Entered as Reported by: EMELIA JOHNSON on 06/14/231601 Gabapentin (Neurontin) 300 Mg Capsule, 300 MG PO DAILY, (Reported) Entered as Reported by: EMELIA JOHNSON on 06/14/231601 Gabapentin (Neurontin) 300 Mg Capsule, 600 MG PO HS, (Reported) Entered as Reported by: EMELIA JOHNSON on 06/14/231601 Levothyroxine Sodium (Levothyroxine Sodium) 75 Mcg Tablet, 75 MCG PO DAILY, (Reported) Entered as Reported by: EMELIA JOHNSON on 06/14/231601 Metoclopramide HCl (Metoclopramide HCl) 10 Mg Tablet, 10 MG PO BID, (Reported) Entered as Reported by: EMELIA JOHNSON on 06/14/231601 Metoclopramide HCl (Metoclopramide HCl) 10 Mg Tablet, 20 MG PO 1200, (Reported) Entered as Reported by: EMELIA JOHNSON on 06/14/231601 Metoprolol Succinate (Metoprolol Succinate) 50 Mg Tab.er.24h, 50 MG PO DAILY, (Reported) Entered as Reported by: EMELIA JOHNSON on 06/14/231601 Mirtazapine (Mirtazapine) 15 Mg Tablet, 15 MG PO HS, (Reported) Entered as Reported by: EMELIA JOHNSON on 06/14/231601 Montelukast Sodium (Montelukast Sodium) 10 Mg Tablet, 10 MG PO DAILY, (Reported) Entered as Reported by: CAROL HAUSER on 09/21/21917 Multivitamin/Iron/Folic Acid (Centrum Adults Tablet) 18 Mg Iron-400 Mcg Tablet, 1 EACH PO DAILY, (Reported) Entered as Reported by: EMELIA JOHNSON on 06/14/23 160 Ondansetron (Ondansetron Odt) 4 Mg Tab.rapdis, 4 MG PO Q6H PRN for NAUSEA/VOMITING-1ST LINE Prescribed by: ROSANNE FUENTES on 06/18/23 1027 Pantoprazole Sodium (Pantoprazole Sodium) 40 Mg Tablet.dr, 40 MG PO DAILY, (Reported) Entered as Reported by: EMELIA JOHNSON on 06/14/23 160 Potassium Chloride (Potassium Chloride) 20 Meq Tablet.er, 20 MEQ PO TID, (Reported) Entered as Reported by: EMELIA JOHNSON on 06/14/23 160 Tramadol HCl (Tramadol HCl ER) 100 Mg Tab.er.24h, 100 MG PO HS, (Reported) Entered as Reported by: EMELIA JOHNSON on 06/14/23 160 Review of Systems Review of Systems Constitutional: see HPI EENTM: nose congestion (mild) Respiratory: short of breath Cardiovascular: no symptoms reported; No chest pain Gastrointestinal: loss of appetite, nausea Genitourinary: no symptoms reported Musculoskeletal: no symptoms reported Skin: no symptoms reported All Other Systems Reviewed Negative Unless Noted: Yes Past Dljuqgm-Iaoboh-Jjrzqf Hx Patient Social History Tobacco Use?: Yes Smoking Status: Former Smoker Substance use?: No Alcohol Use?: No Immunizations Up To Date Tetanus Booster (TDap): Less than 5yrs PED Vaccines UTD: Yes Influenza Vaccine Up-to-Date: Yes; Up-to-Date First/Initial COVID19 Vaccinat: DECEMBER 2020 Second COVID19 Vaccination Jasson: JANUARY 2021 Third COVID19 Vaccination Date: DECEMBER 2020 Seasonal Allergies Seasonal Allergies: Yes Past Medical History Surgery/Hospitalization HX: CHF, RA, Surgeries: Yes (PORT;HYST/BSO;BOWEL/RECTAL SURGERY;HIATAL HERNIA REPAIR;EGD/C- SCOPES) Abdominal, Adenoidectomy, Bowel Surgery, Gallbladder, Hysterectomy, Joint Replacement, Oophorectomy, Orthopedic, Rectal, Tonsillectomy Respiratory: Yes Asthma, Pneumonia, COPD Cardiac: Yes (PSVT; RBBB/LAFB; CHF) Hypertension, Irregular Heartbeat 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: Yes Headaches /Migraines, Neuropathy, Vertigo 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, 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 Genitourinary: No Gastrointestinal: Yes (BOWEL/RECTAL SURGERY;RECTAL PROLAPSE REPAIR;HIATAL HERNIA REPAIR; U.COLITIS) Colitis, Gastroesophageal Reflux, Crohns Disease, Chronic Constipation, Chronic Diarrhea, Hiatal Hernia, Gall Bladder Disease, Irritable Bowel Musculoskeletal: Yes (FALLS, USES WALKER; R TOES 3,4,5 AMPUTATED) Amputee, Osteoporosis, Arthritis, Fibromyalgia, Rheumatoid Arthritis, Chronic Back Pain Endocrine: Yes Hypothyroidsim HEENT: Yes Glaucoma Cancer: Yes Cervical Did You Recieve Any Treatments: Yes What Type of Treatment Did You: Surgical Intervention Psychosocial: Yes (EXTENSIVE PSYCH ISSUES) Anxiety, Depression Integumentary: No Blood Disorders: No Family Medical History Patient reports no known family medical history. No Pertinent Family Hx PSH: -HYSTERECTOMY/BILATERAL SALPINGO-OOPHORECTOMY -BOWEL SURGERY FOR OBSTRUCTION -LAPAROSCOPY -RECTAL PROLAPSE REPAIR/SIGMOID RESECTION -UMBILICAL HERNIA REPAIR -HIATAL HERNIA REPAIR -HEMORRHOIDECTOMY -TONSILLECTOMY/ADENOIDECTOMY -CHOLECYSTECTOMY -PORT LEFT CHEST -RIGHT TOES 3,4,5 AMPUTATED -LEFT SHOULDER REPLACEMENT HAS CHRONIC RECTAL PAIN COMPLAINTS Physical Exam Vital Signs - First Documented 10/14/23 23:53 Temp 36.0 Pulse 81 Resp 16 B/P (MAP) 137/77 (97) Pulse Ox 96 O2 Delivery Room Air Capillary Refill : Less Than 3 Seconds Height: 5'2.00" Weight: 125lbs. 0oz. [id number]; 30.22 BMI Method:Stated General Appearance: WD/WN, mild distress (appears anxious) Eyes: Bilateral Eye Normal Inspection, Bilateral Eye PERRL, Bilateral Eye EOMI HEENT: other (Slightly dry appearing mucous membrane) Neck: normal inspection Respiratory: lungs clear, normal breath sounds, no respiratory distress, no accessory muscle use Cardiovascular: regular rate, rhythm Gastrointestinal: non tender, soft Extremities: normal range of motion, normal inspection, no pedal edema Neurologic/Psychiatric: alert, oriented x 3, depressed affect Skin: normal color, warm/dry Progress/Results/Core Measures Suspected Sepsis SIRS Temperature: Pulse: 81 Respiratory Rate: 16 Laboratory Tests 10/15/23 00:43: White Blood Count 5.7 Blood Pressure 137 /77 Mean: 97 Laboratory Tests 10/15/23 00:43: Creatinine 0.81, Platelet Count 199, Total Bilirubin 0.4 Results/Orders Lab Results Laboratory Tests Test 10/15/23 00:43 Range/Units White Blood Count 5.7 4.3-11.0 10^3/uL Red Blood Count 4.02 3.80-5.11 10^6/uL Hemoglobin 11.9 11.5-16.0 g/dL Hematocrit 38 35-52 % Mean Corpuscular Volume 93 80-99 fL Mean Corpuscular Hemoglobin 30 25-34 pg Mean Corpuscular Hemoglobin Concent 32 32-36 g/dL Red Cell Distribution Width 14.8 H 10.0-14.5 % Platelet Count 199 130-400 10^3/uL Mean Platelet Volume 10.7 9.0-12.2 fL Immature Granulocyte % (Auto) 0 % Neutrophils (%) (Auto) 57 42-75 % Lymphocytes (%) (Auto) 31 12-44 % Monocytes (%) (Auto) 10 0-12 % Eosinophils (%) (Auto) 1 0-10 % Basophils (%) (Auto) 1 0-10 % Neutrophils # (Auto) 3.2 1.8-7.8 10^3/uL Lymphocytes # (Auto) 1.8 1.0-4.0 10^3/uL Monocytes # (Auto) 0.6 0.0-1.0 10^3/uL Eosinophils # (Auto) 0.1 0.0-0.3 10^3/uL Basophils # (Auto) 0.0 0.0-0.1 10^3/uL Immature Granulocyte # (Auto) 0.0 0.0-0.1 10^3/uL Sodium Level 143 135-145 MMOL/L Potassium Level 3.6 3.6-5.0 MMOL/L Chloride Level 111 H 98-107 MMOL/L Carbon Dioxide Level 20 L 21-32 MMOL/L Anion Gap 12 5-14 MMOL/L Blood Urea Nitrogen 6 L 7-18 MG/DL Creatinine 0.81 0.60-1.30 MG/DL Estimat Glomerular Filtration Rate 75 BUN/Creatinine Ratio 7 Glucose Level 85 70-105 MG/DL Calcium Level 9.1 8.5-10.1 MG/DL Corrected Calcium 9.5 8.5-10.1 MG/DL Total Bilirubin 0.4 0.1-1.0 MG/DL Aspartate Amino Transf (AST/SGOT) 16 5-34 U/L Alanine Aminotransferase (ALT/SGPT) 11 0-55 U/L Alkaline Phosphatase 73 40-136 U/L B-Type Natriuretic Peptide 91.8 <100.0 PG/ML Total Protein 6.0 L 6.4-8.2 GM/DL Albumin 3.5 3.2-4.5 GM/DL My Orders Orders - KAITLIN DE LUNA MD Ed Iv/Invasive Line Start (10/15/23 00:22) Cbc And Automated Diff (10/15/23:22) Comprehensive Metabolic Panel (10/15/23:22) Bnp Luna (10/15/23:22) Ekg Tracing (10/15/23:) Chest 1 View, Ap/Pa Only (10/15/23:) Vital Signs/I&O 10/14/23 10/14/23 23:53 23:53 Temp 36.0 Pulse 81 Resp 16 B/P (MAP) 137/77 (97) Pulse Ox 96 O2 Delivery Room Air Room Air Capillary Refill : Less Than 3 Seconds Blood Pressure Mean: 97 Progress Note : Time: 02:12 Progress Note Patient seen and evaluated by me. Evaluation today includes history and physical exam with CBC, comprehensive metabolic panel, single view chest x-ray, BNP and EKG. Pertinent physical exam findings well-developed well-nourished elderly female who appears slightly anxious but in no acute distress. Heart is regular in the 70s, she is afebrile. Good blood pressure. Lungs are clear without rales, rhonchi or wheezes. No distress noted. Abdomen is soft and nontender. She has no lower extremity edema or calf tenderness. No focal neurologic deficits. Differential diagnosis includes worsening pneumonia, exacerbation of congestive heart failure, acid reflux, acute coronary syndrome, pulmonary embolism Patient's labs, EKG and chest x-ray independently reviewed and interpreted by me. Her CBC is normal. Her comprehensive metabolic panel is also all within normal limits. Her BNP is 91.8. EKG is sinus rhythm without ectopy, ST segment elevation or depression. Her single view chest x-ray does not demonstrate any consolidations, effusion or mediastinal widening. She has rested comfortably th roughout her stay here in the emergency department oxygen saturations have been from 94 to 97% on room air without any distress or increased work of breathing. She has no concerning findings on physical exam or laboratory evaluation to be concerning for an exacerbation of her congestive heart failure or ACS. She has no chest pain. Pulmonary embolism would be low on the differential as she is not tachycardic, not hypoxic, not in distress, has no concerning findings for leg swelling or calf tenderness. I do not believe she has a worsening pneumonia. I believe that she has a little bit of anxiety with some underlying depression. She lives alone and does not have a caregiver at night. Reassurance is provided. She has no clinical or objective findings to warrant further testing from the emergency department. Consideration for CT angio chest to rule out PE however as stated history and physical do not support the need at this time. She is given 2 puffs of an albuterol inhaler. Return precautions provided in both verbal and written format. All questions are sought and answered. Patient is stable for discharge to home to follow-up with her primary care provider. ECG Initial ECG Impression Date: Oct 15, 2023 Initial ECG Impression Time: 00:30 Initial ECG Rate: 77 Initial ECG Rhythm: Normal Sinus Initial ECG Intervals AK 184 QRS 132 QTc 504 Comment no ectopy; no ST elevation or depression; LAFB, RBBB Diagnostic Imaging Diagonstic Imaging: Xray Plain Films/CT/US/NM/MRI: chest Comments Single view chest x-ray independently reviewed and interpreted by me, no consolidations, effusions or other acute abnormalities Departure Impression Primary Impression: Dyspnea Qualified Codes: R06.01 - Orthopnea Disposition: HOME, SELF-CARE Condition: Stable Departure-Patient Inst. Decision time for Depature: 02:16 Referrals: RAMAN MISTRY MD,RESIDENT (PCP/Family) Primary Care Physician Patient Instructions: Shortness of Breath, Adult ED Add. Discharge Instructions: You may use your inhaler at home 2 puffs every 6 hours as needed for shortness of breath. Please drink plenty of fluids to stay well-hydrated. You also need to concentrate on good nutrition so that you will heal. Please call your primary care provider's office this morning for a follow-up appointment this week. Return to the emergency department for any new, concerning or emergent complaints. KAITLIN DE LUNA MD Oct 15, 2023 00:15
[2023-10-15 01:23] LABS: BASOPHILS % (AUTO) 1 % (0-10); EOSINOPHILS # (AUTO) 0.1 10^3/uL (0.0-0.3); EOSINOPHILS % (AUTO) 1 % (0-10); HEMATOCRIT 38 % (35-52); HEMOGLOBIN 11.9 g/dL (11.5-16.0); LYMPHOCYTES # (AUTO) 1.8 10^3/uL (1.0-4.0); LYMPHOCYTES % (AUTO) 31 % (12-44); MEAN CORPUSCULAR HEMOGLOBIN 30 pg (25-34); MEAN CORPUSCULAR HGB CONC 32 g/dL (32-36); MEAN CORPUSCULAR VOLUME 93 fL (80-99); MEAN PLATELET VOLUME 10.7 fL (9.0-12.2); MONOCYTES # (AUTO) 0.6 10^3/uL (0.0-1.0); MONOCYTES % (AUTO) 10 % (0-12); NEUTROPHILS # (AUTO) 3.2 10^3/uL (1.8-7.8); NEUTROPHILS % (AUTO) 57 % (42-75); PLATELET COUNT 199 10^3/uL (130-400); WHITE BLOOD COUNT 5.7 10^3/uL (4.3-11.0)
[2023-10-15 01:32] LABS: ALBUMIN 3.5 GM/DL (3.2-4.5); BILIRUBIN,TOTAL 0.4 MG/DL (0.1-1.0); CALCIUM 9.1 MG/DL (8.5-10.1); CREATININE SERUM 0.81 MG/DL (0.60-1.30); POTASSIUM 3.6 MMOL/L (3.6-5.0)
[2023-10-15] MEDS ORDERED: RX-ALBUTEROL INHALER 8.5 GM HFA (PROAIR) IH STA (02:09)
[2023-10-15 02:28] VITALS: BP 144/93
--- NOTE | 2023-10-15 07:39 | Diagnostic Imaging Report ---
INDICATION: Shortness of breath COMPARISON: 06/14/2023 TECHNIQUE: Single radiograph of the chest dated 10/15/2023. FINDINGS: The cardiac silhouette is within normal limits in size. No significant pulmonary vascular congestion. Left-sided Port-A-Cath is again identified, stable. Background senescent changes of the lungs are noted without new focal pulmonary opacity. No pleural effusion. No pneumothorax. Left total shoulder reverse arthroplasty. Scattered osseous degenerative changes. No acute osseous abnormality. IMPRESSION: Senescent changes of the lungs and postsurgical changes as above without superimposed acute cardiopulmonary abnormality. Dictated by: Dictated on workstation # [id number]
== END 2023-10-15 03:03 | disposition home or self-care (01) ==
LOC: EDUNIT# 23:52 → ER 23:54
DX: R06.02 Shortness of breath (principal); Z87.891 Personal history of nicotine dependence; Z79.51 Long term (current) use of inhaled steroids
CPT/HCPCS: 36415; 71045; 80053; 83880; 85025; 93005; 94640